=== PATIENT | male | born 1955 | race Hispanic/Latino ===

== ENCOUNTER 2016-10-06 16:37 | Emergency (ER) | payer MEDICAID ==
[2016-10-06 16:37] VITALS: BMI 24.0
[2016-10-06 16:51] VITALS: TEMP 97.3
--- NOTE | 2016-10-06 17:11 | ED PDOC ---
Arrival/HPI <Frank Acosta DO - Last Filed: 10/06/16 19:07> - General Historian: Patient EM Caveat: Intoxicated <Frandy Melo - Last Filed: 10/06/16 20:36> - General Chief Complaint: Chest Pain Time Seen by Provider: 10/06/16 16:43 - History of Present Illness Narrative History of Present Illness (Text): 10/06/16 17:07 This is a 61 year old male with a PMH significant for CAD w/stents x4, COPD, ETOH abuse, HTN, depression, peripheral neuropathy, cholelithiasis presenting to the ED for evaluation of Chest Pain of unknown duration. The patient is currently intoxicated and cannot provide an accurate history of the events prior to cominging to the ED. The patient reports having drank "a barrel" of "hard booze" and smoked marijuana before coming to the ED. In multiple versions of his narrative on his chest pain, he reports having taken nitro which provided minimal relief. The patient is unclear on the onset of his chest pain stating that it started yesterday, 7-8 hours ago, or 1-2 hours ago in multiple recounts of his pain. The patient reports that the pain is worse with deep inspiration, and laying flat. The pain also increases with palpation. PMH: CAD w/stents x4, COPD, ETOH abuse, HTN, depression, peripheral neuropathy, cholelithiasis Surg: R enartectomy, cholecystectomy, coronary bypass Allergies: sulfa medications: rash, shellfish anaphx Social: heavy smoker, EtOH abuse, illicit drug use Marijuana/heroin Family:DM, arthritis, father had thyroid CA PMD: Dr. Yamel Perry (Frandy Melo) Past Medical History <Frank Acosta DO - Last Filed: 10/06/16 19:07> - Provider Review Nursing Documentation Reviewed: Yes - Travel History Have you recently traveled outside [place] w/in the past 3 mons?: No - Infectious Disease Hx of Infectious Diseases: None - Tetanus Immunization Tetanus Immunization: Unknown - Reproductive Currently : No - Cardiac Hx Cardiac Disorders: Yes (mi) Hx Hypertension: Yes - Pulmonary Hx Chronic Obstructive Pulmonary Disease (COPD): Yes Hx Emphysema: Yes - Neurological Hx Neurological Disorder: Yes (syncope) Hx Transient Ischemic Attacks (TIA): Yes Other/Comment: peripheral neuropathy - HEENT Hx HEENT Disorder: Yes (using eye glasses,left eye blurry vision,sinusitis) Other/Comment: glasses, sinusitis - Renal Hx Renal Disorder: No - Endocrine/Metabolic Hx Endocrine Disorders: No - Hematological/Oncological Hx Blood Disorders: Yes Hx Anemia: Yes - Integumentary Hx Dermatological Disorder: No - Musculoskeletal/Rheumatological Hx Falls: No - Gastrointestinal Hx Gastrointestinal Disorders: Yes Hx Gall Bladder Disease: Yes (Gall stones removed) Hx Gastroesophageal Reflux: Yes Other/Comment: ABD PAIN - Genitourinary/Gynecological Hx Genitourinary Disorders: No - Psychiatric Hx Psychophysiologic Disorder: Yes (smoking ,drink alcohol) Hx Anxiety: Yes Hx Depression: Yes Hx Panic Disorder: Yes Hx Substance Use: No Other/Comment: LIVES @ [facility], - Surgical History Hx Cardiac Catheterization: Yes Hx Cholecystectomy: Yes (gallstones removed) Hx Coronary Stent: Yes ( 4 stents) Hx Open Heart Surgery: Yes Other/Comment: right endartarectomy - Anesthesia Hx Anesthesia: Yes Hx Anesthesia Reactions: No Hx Malignant Hyperthermia: No - Suicidal Assessment Feels Threatened In Home Enviroment: No <Frandy Melo - Last Filed: 10/06/16 20:36> - Patient History Narrative Patient History: PMHx: CAD w/stents x4, COPD, ETOH abuse, HTN, depression, peripheral neuropathy, cholelithiasis Psxhx: R enartectomy, cholecystectomy, coronary bypass Allergies: sulfa medications: rash, shellfish anaphx Social: light smoker, former alcoholic, past heroin and marujuana usage Family:DM, arthritis, father had thyroid CA PMD: Dr. Yamel Perry (Frandy Melo) Family/Social History - Physician Review Nursing Documentation Reviewed: Yes Family/Social History: Unknown Family HX Smoking Status: Heavy Smoker > 10 Cigarettes Daily Hx Alcohol Use: Yes (heavy) Frequency of alcohol use: Daily Hx Substance Use: Yes Substance used: HEROIN, MARIJUANA Route: Smoking/Inhalation Hx Substance Use Treatment: No <Frandy Melo - Last Filed: 10/06/16 20:36> Allergies/Home Meds <Frank Acosta DO - Last Filed: 10/06/16 19:07> <Frandy Melo - Last Filed: 10/06/16 20:36> Allergies/Adverse Reactions: Allergies shellfish derived Allergy (Verified 09/28/16 15:38) ANAPHYLAXIS Sulfa (Sulfonamide Antibiotics) Allergy (Verified 09/28/16 15:38) RASH Home Medications: Home Meds Medication Instructions Recorded Confirmed Nitroglycerin [Nitrostat SL Tab] 0.4 mg SL PRN PRN 02/14/15 08/24/16 Carvedilol [Coreg] 3.125 mg PO BID 11/16/15 08/25/16 Simvastatin 20 mg PO HS 11/16/15 08/25/16 Thiamine [Vitamin B1 Tab] 100 mg PO DAILY 11/16/15 08/25/16 Albuterol HFA [Ventolin HFA 90 90 mcg IH PRN PRN 12/13/15 08/24/16 mcg/actuation (8 g)] Enalapril Maleate [Vasotec] 2.5 mg PO DAILY 12/13/15 08/25/16 Ipratropium/Albuterol Sulfate 1 inhaler IH PRN PRN 12/13/15 08/24/16 [Iprat-Albut 0.5-3(2.5) mg/3 ml] Isosorbide Mononitrate [Imdur] 30 mg PO DAILY 12/13/15 08/25/16 Folic Acid 1 tab PO DAILY 08/24/16 08/25/16 Naproxen [Naprosyn Tab] 1 tab PO BID 08/24/16 08/24/16 Pantoprazole Sodium [Protonix] 1 tab PO DAILY 08/24/16 08/25/16 Review of Systems - Review of Systems Systems not reviewed;Unavailable: Uncooperative <Frandy Melo - Last Filed: 10/06/16 20:36> Physical Exam - Physical Exam Physical Exam Limitations: Intoxication, Uncooperative Vital Signs Reviewed: Yes Temperature: Afebrile Blood Pressure: Normal Pulse: Regular Respiratory Rate: Normal Appearance: Positive for: Ill-Appearing, Other (chronically ill) Mental Status: Positive for: other (intoxicated ) - Systems Exam Head: Present: Atraumatic, Normocephalic Pupils: Present: PERRL Extroacular Muscles: Present: EOMI Conjunctiva: Present: Normal Mouth: Present: Moist Mucous Membranes Neck: Present: Normal Range of Motion Respiratory/Chest: Present: Clear to Auscultation, Good Air Exchange. No: Respiratory Distress, Accessory Muscle Use Cardiovascular: Present: Regular Rate and Rhythm, Normal S1, S2. No: Murmurs Abdomen: Present: Normal Bowel Sounds, Other (multiple cespedes hemangiomas ). No : Tenderness, Distention, Peritoneal Signs Upper Extremity: Present: Normal Inspection. No: Cyanosis, Edema Lower Extremity: Present: Normal Inspection. No: Edema Neurological: Present: Motor Func Grossly Intact, Other (intoxicated) Psychiatric: Present: Alert <Frandy Melo - Last Filed: 10/06/16 20:36> Vital Signs Temp Pulse Pulse Resp BP BP Pulse Ox 10/06/16 19:07 60 16 122/75 96 10/06/16 16:50 97.3 F L 98 H 98 H 22 117/61 117/61 98 Medical Decision Making <Frank Acosta DO - Last Filed: 10/06/16 19:07> Re-evaluation Time: 19:15 Reassessment Condition: Re-examined, Improved - Lab Interpretations Interpretation: Abnormal lab values (Elevated serum alcohol. CBC/CMP at patient' s baseline. no elevation of troponin) - RAD Interpretation Operator Coating Furnace: ED Physician, Radiologist - EKG Interpretation Interpreted by ED Physician: Yes Type: 12 lead EKG <Frandy Melo - Last Filed: 10/06/16 20:36> ED Course and Treatment: 10/06/16 19:07 61 year old male complaining of chest pain. In agreement with resident note, which includes further HPI details. Patient was seen and evaluated with resident , came up with plan and treatment together. On physical exam patient was intoxicated but otherwise unremarkable. (Frank Acosta DO) 10/06/16 17:17 Impression: This is a 61 year old male with a PMH significant for CAD w/stents x4, COPD, ETOH abuse, HTN, depression, peripheral neuropathy, cholelithiasis presenting to the ED for evaluation of Chest Pain of unknown duration. The patient is intoxicated and uncooperative with history taking and examination. The patient has been seen numerous times for similar complaints. The patient had a negative stress test in 10/2015. The patient's EKG is unchanged from previous. Differential: Atypical Chest Pain Pleuritic Pain Musculoskeletal Chest Pain EtOH Intoxication Plan: EKG CBC, CMP, Troponin, Alcohol CXR NS 200ml/hr UA Folic Acid/Thiamine/Multi-vitamin Prior Visits: Numerous admission for EtOH withdrawal and Chest Pain - most recent admission 08/24/16- chest pain- Serial cardiac enyzmes were negative as well as EKG and ACS was ruled out Progress Note: Patient seen and examined at bedside. Patient intoxicated. Patient will have above lab work drawn and reviewed. Patient will be started on NS at 200ml/hr. Clinical appearance of non-ischemic chest pain in the setting of alcohol intoxication and substance abuse (marijuana). The patient has negative stress test 11/04 and negative workup for ACS during his last admission 08/24/16. Patient will be monitored for withdrawal and cardiac pathology will be evaluated. 10/06/16 19:17 Patient re-examined. Lab work negative for cardiac ischemia. Patient sleeping comfortably in bed prior to examination. Patient requesting to be DC home. IVF at 200ml/hr approximately 1/2 done. Patient not complaining of chest pain at this time. 10/06/16 20:33 Patient sleeping comfortably. Patient's labs reveal no evidence of cardiac ischemia. Patient will complete 1L NS IVF prior to DC. Patient was able to ambulate without incident. The patient was deemed medically safe for discharge. The patient is agreeable with the plan. (Frandy Melo) - Lab Interpretations Lab Results: 10/06/16 16:45 10/06/16 16:45 Lab Results 10/06/16 16:45: WBC 5.5, RBC 3.59, Hgb 11.6 L, Hct 34.8 L, MCV 96.9, MCH 32.3, MCHC 33.3, RDW 13.9, Plt Count 270, MPV 9.4, Gran % 75.0 H, Lymph % (Auto) 20.1 L, [place] % (Auto) 3.8, Eos % (Auto) 0.7 L, Baso % (Auto) 0.4, Gran # 4.10, Lymph # 1.1 L, [place] # 0.2, Eos # 0.0, Baso # 0.02, Sodium 137, Potassium 4.5, Chloride 100, Carbon Dioxide 26, Anion Gap 16, BUN 12, Creatinine 0.8, Est GFR ( Amer) > 60, Est GFR (Non-Af Amer) > 60, Random Glucose 96, Calcium 8.8, Phosphorus 2.9, Magnesium 2.2, Total Bilirubin 0.6, AST 43, ALT 13, Alkaline Phosphatase 78, Lactate Dehydrogenase 432, Total Creatine Kinase 232 H, CK-MB ( CK-2) 1.8, CK-MB (CK-2) % Cancelled, Troponin I < 0.01, Total Protein 7.3, Albumin 4.2, Globulin 3.1, Albumin/Globulin Ratio 1.4, Alcohol, Quantitative 229 H - RAD Interpretation Narrative RAD Interpretations (Text): 10/06/16 20:35 HISTORY: chest pain COMPARISON: Chest x-ray performed 09/06/16 TECHNIQUE: Chest, one view. FINDINGS: LUNGS: 3.2 x 1.9 cm ovoid density in the right upper lobe. Please note that chest x-ray has limited sensitivity for the detection of pulmonary masses. PLEURA: No significant pleural effusion identified. No definite pneumothorax . CARDIOVASCULAR: Median sternotomy wires with evidence of CABG. Heart size appears within normal limits. OSSEOUS STRUCTURES: Degenerative changes. VISUALIZED UPPER ABDOMEN: Unremarkable. OTHER FINDINGS: None. IMPRESSION: 3.2 x 1.9 cm ovoid density within the right upper lobe. Recommend further evaluation with CT chest if indicated. (Frandy Melo) Radiology Orders: 10/06/16 16:51 CHEST PORTABLE [RAD] Stat - EKG Interpretation EKG Interpretation (Text): 10/06/16 19:18 eraly repolarization consistent with patients previous EKGs. Sinus rhythm without ST or T wave changes. (Frandy Melo) - Medication Orders Current Medication Orders: Sodium Chloride (Sodium Chloride 0.9%) 1,000 mls @ 200 mls/hr IV .Q5H [facility] Last Admin: 10/06/16 17:15 Dose: 200 MLS/HR eMAR Start Stop Document 10/06/16 17:15 SF (Rec: 10/06/16 17:45 SF [id number]) Intravenous Solution Start Date 10/06/16 Start Time 17:15 End Date 10/06/16 End time 22:15 Total Infusion Time 300 Discontinued Medications Folic Acid (Folic Acid) 1 mg PO STAT STA Stop: 10/06/16 17:24 Last Admin: 10/06/16 18:23 Dose: 1 MG Multivitamins (Thera Tab) 1 tab PO STAT STA Stop: 10/06/16 17:24 Last Admin: 10/06/16 18:22 Dose: 1 TAB Thiamine HCl (Vitamin B1 Tab) 100 mg PO DAILY STA Stop: 10/06/16 17:24 Last Admin: 10/06/16 18:22 Dose: 100 MG - PA / [employer] / Resident Statement CLARIBEL has reviewed & agrees with the documentation as recorded. CLARIBEL has examined the patient and agrees with the treatment plan. - Scribe Statement The provider has reviewed the documentation as recorded by the Scribe <Frank Acosta DO - Last Filed: 10/06/16 19:07> <Frandy Melo - Last Filed: 10/06/16 20:36> - Scribe Statement Jhonny Aldana All medical record entries made by the Scribe were at my direction and personally dictated by me. I have reviewed the chart and agree that the record accurately reflects my personal performance of the history, physical exam, medical decision making, and the department course for this patient. I have also personally directed, reviewed, and agree with the discharge instructions and disposition. (Frank Acosta DO) Disposition/Present on Arrival <Frank Acosta DO - Last Filed: 10/06/16 19:07> - Present on Arrival Any Indicators Present on Arrival: No History of DVT/PE: No History of Uncontrolled Diabetes: No Urinary Catheter: No History of Decub. Ulcer: No History Surgical Site Infection Following: None - Disposition Have Diagnosis and Disposition been Completed?: Yes Disposition Time: 18:15 Patient Plan: Discharge <Frandy Melo - Last Filed: 10/06/16 20:36> - Disposition Diagnosis: Alcohol intoxication, Chest pain Disposition: HOME/ ROUTINE Patient Problems: Current Active Problems Problem Status Diagnosed Alcohol intoxication Acute Alcohol withdrawal syndrome Acute Chest pain Acute Colitis Acute DVT prophylaxis Acute Facial fracture due to fall Acute HTN (hypertension) Acute Near syncope Acute Condition: FAIR Discharge Instructions (ExitCare): Chest Pain (ED) Print Language: MICRONESIAN Additional Instructions: 1.) Avoid alcohol 2.) Avoid marijuana 3.) Avoid illicit drugs 4.) Take all medications in accordance with prescription 5.) Follow up with PMD following discharge 6.) If symptoms return, please return to the ED for evaluation
[2016-10-06] MEDS ORDERED: Sodium Chloride 0.9% 1,000 ML IV SCH (17:15)
[2016-10-06 17:17] LABS: ADD MANUAL DIFF? NO
[2016-10-06] MEDS ORDERED: Multivitamin Therapeutic Tab PO STA (17:23)
[2016-10-06 17:35] LABS: BASO # 0.02 K/mm3 (0.0-2.0); BASO % 0.4 % (0.0-3.0); EOS % 0.7 % (1.5-5.0); HEMATOCRIT 34.8 % (42.0-52.0); LYMPH # 1.1 (1.2-3.4); LYMPH % 20.1 % (22.0-35.0); MEAN CELL VOLUME 96.9 fL (80.0-105.0); MEAN CORPUSCULAR HEMOGLOBIN 32.3 pg (25.0-35.0); MEAN CORPUSCULAR HGB CONC 33.3 g/dl (31.0-37.0); MEAN PLATELET VOLUME 9.4 fl (7.0-11.0); MONO # 0.2 (0.1-0.6); MONO % 3.8 % (1.0-6.0); PLATELET COUNT 270 10^3/uL (120.0-450.0); RED CELL DISTRIBUTION WIDTH 13.9 % (11.5-14.5); WHITE BLOOD COUNT 5.5 10^3/ul (4.5-11.0)
[2016-10-06 17:41] LABS: ALB/GLOB RATIO 1.4 (1.1-1.8); ALKALINE PHOSPHATASE 78 U/L (38-133); ALT/SGPT 13 U/L (7-56); AST/SGOT 43 U/L (15-59); BILIRUBIN,TOTAL 0.6 mg/dL (0.2-1.3); BLOOD UREA NITROGEN 12 mg/dL (7-21); CALCIUM 8.8 mg/dL (8.4-10.5); CARBON DIOXIDE 26 mmol/L (21-33); CHLORIDE 100 mmol/L (98-107); GFR AFRICAN-AMERICAN > 60; GLUCOSE,RANDOM 96 mg/dL (70-110); MAGNESIUM 2.2 mg/dL (1.7-2.2); PHOSPHOROUS 2.9 mg/dL (2.5-4.5); POTASSIUM 4.5 mmol/L (3.6-5.0); SODIUM 137 mmol/L (132-148); TOTAL PROTEIN 7.3 g/dL (5.8-8.3)
--- NOTE | 2016-10-06 17:49 | RAD ---
HISTORY: chest pain COMPARISON: Chest x-ray performed 09/06/16 TECHNIQUE: Chest, one view. FINDINGS: LUNGS: 3.2 x 1.9 cm ovoid density in the right upper lobe. Please note that chest x-ray has limited sensitivity for the detection of pulmonary masses. PLEURA: No significant pleural effusion identified. No definite pneumothorax . CARDIOVASCULAR: Median sternotomy wires with evidence of CABG. Heart size appears within normal limits. OSSEOUS STRUCTURES: Degenerative changes. VISUALIZED UPPER ABDOMEN: Unremarkable. OTHER FINDINGS: None. IMPRESSION: 3.2 x 1.9 cm ovoid density within the right upper lobe. Recommend further evaluation with CT chest if indicated.
[2016-10-06 17:52] LABS: TROPONIN I < 0.01 ng/mL
[2016-10-06 19:07] VITALS: RESP 16
[2016-10-06 19:42] LABS: URINE BILIRUBIN NEGATIVE (NEGATIVE); URINE BLOOD NEGATIVE (NEGATIVE); URINE GLUCOSE (UA) NEGATIVE (NEGATIVE); URINE KETONE NEGATIVE (NEGATIVE); URINE LEUKOCYTE ESTERASE NEGATIVE Leu/uL (NEGATIVE); URINE PROTEIN NEGATIVE mg/dL (<30 mg/dL); URINE UROBILINOGEN 0.2 E.U./dL (<1 E.U./dL)
[2016-10-06 19:44] LABS: URINE APPEARANCE CLEAR (CLEAR); URINE COLOR YELLOW (YELLOW)
[2016-10-06 20:52] VITALS: BP 124/67; PULSE 67; O2SAT 97
--- NOTE | 2016-10-07 09:52 | CARD ---
APPROVED REPORT EKG Measurement Heart [id number] <Conclusion> Normal sinus rhythm Early repolarization changes with ST elevations 2,3,F, V 4 - 6
== END 2016-10-06 20:48 | disposition home or self-care (01) ==
LOC: ED 16:37
DX: R07.9 Chest pain, unspecified (principal); F10.129 Alcohol abuse with intoxication, unspecified; Y90.7 Blood alcohol level of 200-239 mg/100 ml
CPT/HCPCS: 71010; 80053; 80320; 81003; 82550; 82553; 83615; 83735; 84100; 84484; 85025; 93005; 96360; 96361; 99285; J7040

== ENCOUNTER 2016-10-10 02:37 | Emergency (ER) | payer MEDICAID ==
[2016-10-10 02:38] VITALS: BMI 24.0
--- NOTE | 2016-10-10 03:12 | ED PDOC ---
Arrival/HPI - General Chief Complaint: Psychiatric Evaluation Time Seen by Provider: 10/10/16 02:45 Historian: Patient - History of Present Illness Narrative History of Present Illness (Text): 10/10/16 03:09 [place] Alexandra is a 61 year old male, whose past medical history includes CAD with stents, COPD, alcohol abuse, hypertension, depression, who presents to the Emergency department complaining of depression. Patient states he has been feeling very depressed and binge-drinking alcohol following the recent of his cousin. Patient denies any suicidal ideation, homicidal ideation, fever, chills, chest pain, shortness of breath, nausea, vomiting, diarrhea, urinary symptoms, back pain, neck pain, headache, dizziness, or any other complaints. Time/Duration: Other (tonight) Symptom Onset: Gradual Symptom Course: Unchanged Activities at Onset: Rest, Light Context: Home Past Medical History - Provider Review Nursing Documentation Reviewed: Yes - Past History Past History: No Previous - Infectious Disease Hx of Infectious Diseases: None - Tetanus Immunization Tetanus Immunization: Unknown - Reproductive Currently : No - Cardiac Hx Cardiac Disorders: Yes () Hx AR: Yes (2006) Hx Hypertension: Yes - Pulmonary Hx Chronic Obstructive Pulmonary Disease (COPD): Yes Hx Emphysema: Yes - Neurological Hx Neurological Disorder: Yes (syncope) Hx Transient Ischemic Attacks (TIA): Yes Other/Comment: peripheral neuropathy - HEENT Hx HEENT Disorder: Yes (using eye glasses,left eye blurry vision,sinusitis) Other/Comment: glasses, sinusitis - Renal Hx Renal Disorder: No - Endocrine/Metabolic Hx Endocrine Disorders: No - Hematological/Oncological Hx Blood Disorders: Yes Hx Anemia: Yes - Integumentary Hx Dermatological Disorder: No - Musculoskeletal/Rheumatological Hx Falls: No - Gastrointestinal Hx Gastrointestinal Disorders: Yes Hx Gall Bladder Disease: Yes (Gall stones removed) Hx Gastroesophageal Reflux: Yes Other/Comment: ABD PAIN - Genitourinary/Gynecological Hx Genitourinary Disorders: No - Psychiatric Hx Psychophysiologic Disorder: Yes (smoking ,drink alcohol) Hx Anxiety: Yes Hx Depression: Yes Hx Panic Disorder: Yes Hx Post Traumatic Stress Disorder: Yes Hx Substance Use: Yes (mj today) Other/Comment: LIVES @ [facility], - Surgical History Hx Cardiac Catheterization: Yes Hx Cholecystectomy: Yes (gallstones removed) Hx Coronary Stent: Yes ( 4 stents/2005 5 total) Hx Open Heart Surgery: Yes Other/Comment: right endartarectomy - Anesthesia Hx Anesthesia: Yes Hx Anesthesia Reactions: No Hx Malignant Hyperthermia: No - Suicidal Assessment Feels Threatened In Home Enviroment: No Family/Social History - Physician Review Nursing Documentation Reviewed: Yes Family/Social History: No Known Family HX Smoking Status: Heavy Smoker > 10 Cigarettes Daily Hx Alcohol Use: Yes (heavy) Frequency of alcohol use: Daily Hx Substance Use: Yes (mj today) Substance used: HEROIN, MARIJUANA Hx Substance Use Treatment: No Allergies/Home Meds Allergies/Adverse Reactions: Allergies shellfish derived Allergy (Verified 10/10/16 02:51) ANAPHYLAXIS Sulfa (Sulfonamide Antibiotics) Allergy (Verified 10/10/16 02:51) RASH Home Medications: Home Meds Medication Instructions Recorded Confirmed Nitroglycerin [Nitrostat SL Tab] 0.4 mg SL PRN PRN 02/14/15 08/24/16 Carvedilol [Coreg] 3.125 mg PO BID 11/16/15 08/25/16 Simvastatin 20 mg PO HS 11/16/15 08/25/16 Thiamine [Vitamin B1 Tab] 100 mg PO DAILY 11/16/15 08/25/16 Albuterol HFA [Ventolin HFA 90 90 mcg IH PRN PRN 12/13/15 08/24/16 mcg/actuation (8 g)] Enalapril Maleate [Vasotec] 2.5 mg PO DAILY 12/13/15 08/25/16 Ipratropium/Albuterol Sulfate 1 inhaler IH PRN PRN 12/13/15 08/24/16 [Iprat-Albut 0.5-3(2.5) mg/3 ml] Isosorbide Mononitrate [Imdur] 30 mg PO DAILY 12/13/15 08/25/16 Folic Acid 1 tab PO DAILY 08/24/16 08/25/16 Naproxen [Naprosyn Tab] 1 tab PO BID 08/24/16 08/24/16 Pantoprazole Sodium [Protonix] 1 tab PO DAILY 08/24/16 08/25/16 Review of Systems - Physician Review All systems were reviewed & negative as marked: Yes - Review of Systems Constitutional: Normal. absent: Fevers Eyes: Normal ENT: Normal Respiratory: Normal. absent: SOB, Cough Cardiovascular: Normal. absent: Chest Pain Gastrointestinal: Normal. absent: Abdominal Pain, Diarrhea, Nausea, Vomiting Genitourinary Male: Normal. absent: Dysuria, Frequency, Hematuria, Urinary Output Changes Musculoskeletal: Normal. absent: Back Pain, Neck Pain Skin: Normal. absent: Rash Neurological: Normal. absent: Headache, Dizziness Endocrine: Normal Hemo/Lymphatic: Normal Psychiatric: Depression, Other (+alcohol abuse) Physical Exam Vital Signs Reviewed: Yes Vital Signs Temp Pulse Resp BP Pulse Ox 10/10/16 03:15 70 18 94/56 L 95 10/10/16 03:01 97.4 F L Temperature: Afebrile Blood Pressure: Normal Pulse: Regular Respiratory Rate: Normal Appearance: Positive for: Well-Appearing, Non-Toxic, Comfortable Pain Distress: None Mental Status: Positive for: Alert and Oriented X 3 - Systems Exam Head: Present: Atraumatic, Normocephalic Pupils: Present: PERRL Extroacular Muscles: Present: EOMI Conjunctiva: Present: Normal Mouth: Present: Moist Mucous Membranes Neck: Present: Normal Range of Motion Respiratory/Chest: Present: Clear to Auscultation, Good Air Exchange. No: Respiratory Distress, Accessory Muscle Use Cardiovascular: Present: Regular Rate and Rhythm, Normal S1, S2. No: Murmurs Abdomen: Present: Normal Bowel Sounds. No: Tenderness, Distention, Peritoneal Signs Back: Present: Normal Inspection Upper Extremity: Present: Normal Inspection. No: Cyanosis, Edema Lower Extremity: Present: Normal Inspection. No: Edema Neurological: Present: GCS=15, CN II-XII Intact, Speech Normal Skin: Present: Warm, Dry, Normal Color. No: Rashes Psychiatric: Present: Alert, Oriented x 3, Normal Insight, Normal Concentration , Intoxicated Medical Decision Making ED Course and Treatment: 10/10/16 03:09 Impression: 61 year old male complaining of depression after of relative. Pt admits to binge-drinking alcohol tonight. Plan: -- EKG -- Chest X-ray -- Labs, alcohol level -- Urinalysis, urine drug screen -- Reassess and disposition Prior Visits: Notes and results from previous visits were reviewed. Progress Notes: Reviewed EKG, NSR at 88 bpm. No acute changes. 10/10/16 07:[address] Montiel, pending PES evaluation, re-assessment, and final disposition. - Lab Interpretations Lab Results: 10/10/16 04:10 10/10/16 04:10 Lab Results 10/10/16 04:10: WBC 5.7, RBC 3.50, Hgb 11.7 L, Hct 34.0 L, MCV 97.1, MCH 33.4, MCHC 34.4, RDW 14.5, Plt Count 268, MPV 9.0, Sodium 146, Potassium 3.8, Chloride 105, Carbon Dioxide 25, Anion Gap 20, BUN 10, Creatinine 0.8, Est GFR ( Amer) > 60, Est GFR (Non-Af Amer) > 60, Random Glucose 69 L, Calcium 8.9 , Total Bilirubin 0.5, AST 41, ALT 19, Alkaline Phosphatase 67, Total Protein 6.7, Albumin 3.9, Globulin 2.8, Albumin/Globulin Ratio 1.4, Alcohol, Quantitative 179 H I have reviewed the lab results: Yes - RAD Interpretation Radiology Orders: 10/10/16 03:41 CHEST PORTABLE [RAD] Stat - Medication Orders Current Medication Orders: Discontinued Medications Albuterol/Ipratropium (Duoneb 3 Mg/0.5 Mg (3 Ml) Ud) 3 ml IH ONCE STA Stop: 10/10/16 05:18 Last Admin: 10/10/16 05:44 Dose: 3 ML - Scribe Statement The provider has reviewed the documentation as recorded by the Arina Adam Provider Attestation: All medical record entries made by the Sarahibinga were at my direction and personally dictated by me. I have reviewed the chart and agree that the record accurately reflects my personal performance of the history, physical exam, medical decision making, and the department course for this patient. I have also personally directed, reviewed, and agree with the discharge instructions and disposition. Disposition/Present on Arrival - Present on Arrival Any Indicators Present on Arrival: No History of DVT/PE: No History of Uncontrolled Diabetes: No Urinary Catheter: No History of Decub. Ulcer: No History Surgical Site Infection Following: None - Disposition Have Diagnosis and Disposition been Completed?: No Diagnosis: Alcohol abuse, Depression Disposition Time: 07:00 Patient Problems: Current Active Problems Problem Status Diagnosed Alcohol withdrawal syndrome Acute Colitis Acute DVT prophylaxis Acute Facial fracture due to fall Acute HTN (hypertension) Acute Near syncope Acute Condition: STABLE
[2016-10-10 03:15] VITALS: RESP 18
[2016-10-10 04:39] LABS: MEAN CELL VOLUME 97.1 fL (80.0-105.0); MEAN CORPUSCULAR HEMOGLOBIN 33.4 pg (25.0-35.0); MEAN CORPUSCULAR HGB CONC 34.4 g/dl (31.0-37.0); RED CELL DISTRIBUTION WIDTH 14.5 % (11.5-14.5); WHITE BLOOD COUNT 5.7 10^3/ul (4.5-11.0)
[2016-10-10 04:46] LABS: ALB/GLOB RATIO 1.4 (1.1-1.8); ALKALINE PHOSPHATASE 67 U/L (38-133); ALT/SGPT 19 U/L (7-56); AST/SGOT 41 U/L (15-59); BILIRUBIN,TOTAL 0.5 mg/dL (0.2-1.3); BLOOD UREA NITROGEN 10 mg/dL (7-21); CALCIUM 8.9 mg/dL (8.4-10.5); CARBON DIOXIDE 25 mmol/L (21-33); CHLORIDE 105 mmol/L (95-110); GFR AFRICAN-AMERICAN > 60; GLUCOSE,RANDOM 69 mg/dL (70-110); POTASSIUM 3.8 mmol/L (3.6-5.0); SODIUM 146 mmol/L (132-148); TOTAL PROTEIN 6.7 g/dL (5.8-8.3)
[2016-10-10] MEDS: Albuterol-Ipratrop 3 mg / 0.5 (3 ml) UD IH STA ×2 (05:29→05:44)
--- NOTE | 2016-10-10 07:42 | RAD ---
HISTORY: medical clearance COMPARISON: Comparison chest dated 09/20/2016 FINDINGS: LUNGS: No focal consolidation. . PLEURA: No significant pleural effusion identified, no pneumothorax apparent. CARDIOVASCULAR: Sternotomy wires and CABG clips. Heart size within range of normal. OSSEOUS STRUCTURES: Re- demonstrated is overgrowth of the 1st rib at costo -sternal junction VISUALIZED UPPER ABDOMEN: Normal. OTHER FINDINGS: None. IMPRESSION: No acute cardiopulmonary disease.
[2016-10-10 07:46] VITALS: BP 112/69; PULSE 69; TEMP 97.9; O2SAT 98
--- NOTE | 2016-10-10 08:10 | ED PDOC ---
Physical Exam Vital Signs Reviewed: Yes Vital Signs Temp Pulse Resp BP Pulse Ox 10/10/16 07:45 97.9 F 69 18 112/69 98 10/10/16 03:15 70 18 94/56 L 95 10/10/16 03:01 97.4 F L Temperature: Afebrile Blood Pressure: Normal Pulse: Regular Respiratory Rate: Normal Appearance: Positive for: Well-Appearing Pain Distress: None Mental Status: Positive for: Alert and Oriented X 3 Medical Decision Making ED Course and Treatment: 10/10/16 08:09 A 61 year old male who presents to the emergency department for evaluation of depression and binge-drinking. Patient signed out to my by for pending PES evaluation. 10/10/16 08:42 Evaluaated by PES. Recommend discharge, f/u outpatient. - Lab Interpretations Lab Results: 10/10/16 04:10 10/10/16 04:10 Lab Results 10/10/16 05:20: Urine Opiates Screen Negative, Urine Methadone Screen Negative, Ur Barbiturates Screen Negative, Ur Phencyclidine Scrn Negative, Ur Amphetamines Screen Negative, U Benzodiazepines Scrn Negative, U Oth Cocaine Metabols Negative, U Cannabinoids Screen Negative 10/10/16 04:10: WBC 5.7, RBC 3.50, Hgb 11.7 L, Hct 34.0 L, MCV 97.1, MCH 33.4, MCHC 34.4, RDW 14.5, Plt Count 268, MPV 9.0, Sodium 146, Potassium 3.8, Chloride 105, Carbon Dioxide 25, Anion Gap 20, BUN 10, Creatinine 0.8, Est GFR ( Amer) > 60, Est GFR (Non-Af Amer) > 60, Random Glucose 69 L, Calcium 8.9 , Total Bilirubin 0.5, AST 41, ALT 19, Alkaline Phosphatase 67, Total Protein 6.7, Albumin 3.9, Globulin 2.8, Albumin/Globulin Ratio 1.4, Alcohol, Quantitative 179 H - RAD Interpretation Radiology Orders: 10/10/16 03:41 CHEST PORTABLE [RAD] Stat - Medication Orders Current Medication Orders: Discontinued Medications Albuterol/Ipratropium (Duoneb 3 Mg/0.5 Mg (3 Ml) Ud) 3 ml IH ONCE STA Stop: 10/10/16 05:18 Last Admin: 10/10/16 05:44 Dose: 3 ML - Scribe Statement The provider has reviewed the documentation as recorded by the Arina Floyd Provider Attestation: All medical record entries made by the Arina were at my direction and personally dictated by me. I have reviewed the chart and agree that the record accurately reflects my personal performance of the history, physical exam, medical decision making, and the department course for this patient. I have also personally directed, reviewed, and agree with the discharge instructions and disposition. Disposition/Present on Arrival - Present on Arrival Any Indicators Present on Arrival: No History of DVT/PE: No History of Uncontrolled Diabetes: No Urinary Catheter: No History of Decub. Ulcer: No History Surgical Site Infection Following: None - Disposition Have Diagnosis and Disposition been Completed?: Yes Diagnosis: Alcohol abuse, Depression, Alcohol intoxication Disposition: HOME/ ROUTINE Disposition Time: 08:42 Patient Plan: Discharge Patient Problems: Current Active Problems Problem Status Diagnosed Alcohol abuse Acute Alcohol withdrawal syndrome Acute Colitis Acute DVT prophylaxis Acute Depression Acute Facial fracture due to fall Acute HTN (hypertension) Acute Near syncope Acute Condition: STABLE Discharge Instructions (ExitCare): Alcohol Intoxication (DC), Depression (ED)
--- NOTE | 2016-10-10 20:01 | CARD ---
APPROVED REPORT EKG Measurement Heart [id number] <Conclusion> Normal sinus rhythm Early repolarization Normal ECG
== END 2016-10-10 09:13 | disposition home or self-care (01) ==
LOC: ED 02:37
DX: F10.129 Alcohol abuse with intoxication, unspecified (principal); Y90.6 Blood alcohol level of 120-199 mg/100 ml; F32.9 Major depressive disorder, single episode, unspecified

== ENCOUNTER 2016-10-11 19:52 | Observation (INO) | payer MEDICAID ==
[2016-10-11 19:53] VITALS: BMI 24.0
--- NOTE | 2016-10-11 20:15 | ED PDOC ---
Arrival/HPI - General Chief Complaint: Alcohol Ingestion Time Seen by Provider: 10/11/16 20:06 - History of Present Illness Narrative History of Present Illness (Text): 10/11/16 20:13 Patient presents with slurring of speech and alcohol on breath. Admits to drinking throughout the day. Pt denies suicidal or homicidal ideations. Denies any trauma or injury. Past Medical History - Provider Review Nursing Documentation Reviewed: Yes - Past History Past History: No Previous - Infectious Disease Hx of Infectious Diseases: None - Tetanus Immunization Tetanus Immunization: Unknown - Reproductive Currently : No - Cardiac Hx Cardiac Disorders: Yes (mi) Hx Hypertension: Yes - Pulmonary Hx Tuberculosis: No - Neurological HX Cerebrovascular Accident: No Hx Seizures: No - HEENT Hx HEENT Disorder: Yes (using eye glasses,left eye blurry vision,sinusitis) Other/Comment: glasses, sinusitis - Renal Hx Renal Disorder: No - Endocrine/Metabolic Hx Endocrine Disorders: No - Hematological/Oncological Hx Cancer: No - Integumentary Hx Dermatological Disorder: No - Musculoskeletal/Rheumatological Hx Falls: No - Gastrointestinal Hx Gastrointestinal Disorders: Yes Hx Gall Bladder Disease: Yes (Gall stones removed) Hx Gastroesophageal Reflux: Yes Other/Comment: ABD PAIN - Genitourinary/Gynecological Hx Sexually Transmitted Diseases: No - Psychiatric Hx Psychophysiologic Disorder: Yes (smoking ,drink alcohol) Hx Anxiety: Yes Hx Depression: Yes Hx Panic Disorder: Yes Hx Post Traumatic Stress Disorder: Yes Hx Substance Use: Yes (mj today) Other/Comment: LIVES @ [facility], - Surgical History Hx Cardiac Catheterization: Yes Hx Cholecystectomy: Yes (gallstones removed) Hx Coronary Stent: Yes ( 4 stents/2005 5 total) Hx Open Heart Surgery: Yes Other/Comment: right endartarectomy - Anesthesia Hx Anesthesia: Yes Hx Anesthesia Reactions: No Hx Malignant Hyperthermia: No - Suicidal Assessment Feels Threatened In Home Enviroment: No Family/Social History - Physician Review Nursing Documentation Reviewed: Yes Family/Social History: Unknown Family HX Smoking Status: Heavy Smoker > 10 Cigarettes Daily Hx Alcohol Use: Yes (heavy) Hx Substance Use: Yes (mj today) Substance used: HEROIN, MARIJUANA Hx Substance Use Treatment: No Allergies/Home Meds Allergies/Adverse Reactions: Allergies shellfish derived Allergy (Verified 10/11/16 19:58) ANAPHYLAXIS Sulfa (Sulfonamide Antibiotics) Allergy (Verified 10/11/16 19:58) RASH Home Medications: Home Meds Medication Instructions Recorded Confirmed Nitroglycerin [Nitrostat SL Tab] 0.4 mg SL PRN PRN 02/14/15 10/11/16 Carvedilol [Coreg] 3.125 mg PO BID 11/16/15 10/11/16 Simvastatin 20 mg PO HS 11/16/15 10/11/16 Thiamine [Vitamin B1 Tab] 100 mg PO DAILY 11/16/15 10/11/16 Enalapril Maleate [Vasotec] 2.5 mg PO DAILY 12/13/15 10/11/16 Ipratropium/Albuterol Sulfate 1 inhaler IH PRN PRN 12/13/15 10/11/16 [Iprat-Albut 0.5-3(2.5) mg/3 ml] Isosorbide Mononitrate [Imdur] 30 mg PO DAILY 12/13/15 10/11/16 Folic Acid 1 tab PO DAILY 08/24/16 10/11/16 Naproxen [Naprosyn Tab] 1 tab PO BID 08/24/16 10/11/16 Pantoprazole Sodium [Protonix] 1 tab PO DAILY 08/24/16 10/11/16 Review of Systems - Review of Systems Systems not reviewed;Unavailable: Intoxicated Physical Exam - Physical Exam Narrative Physical Exam (Text): 10/11/16 20:14 pt in no distress, no airway compromise, breathing without difficulty, good insp /exp effort. No signs of head/torso/extremity trauma. Following commands without difficulty. Head: Present: Atraumatic, Normocephalic. No: Tenderness, Contusion, Swelling, Ecchymosis, Abrasion, Laceration Pupils: Present: PERRL Extroacular Muscles: Present: EOMI Conjunctiva: Present: Normal Mouth: Present: Moist Mucous Membranes Neck: Present: Normal Range of Motion. No: MIDLINE TENDERNESS, Paraspinal Tenderness Respiratory/Chest: Present: Clear to Auscultation, Good Air Exchange. No: Respiratory Distress, Accessory Muscle Use Cardiovascular: Present: Regular Rate and Rhythm, Normal S1, S2. No: Murmurs Abdomen: Present: Normal Bowel Sounds. No: Tenderness, Distention, Peritoneal Signs, Rebound, Guarding Back: Present: Normal Inspection. No: Midline Tenderness, Paraspinal Tenderness Upper Extremity: Present: Normal Inspection. No: Cyanosis, Edema Lower Extremity: Present: Normal Inspection. No: Edema Neurological: Present: GCS=15, CN II-XII Intact Skin: Present: Warm, Dry, Normal Color. No: Rashes Lymphatic: Present: OX3, NI, NC Psychiatric: Present: Alert. No: Agitated Vital Signs Reviewed: Yes Vital Signs Temp Pulse Resp BP Pulse Ox 10/12/16 05:53 97.8 F 75 18 117/67 92 L 10/12/16 04:46 97.6 F 70 18 117/68 95 10/12/16 02:02 98 F 65 19 121/72 98 10/12/16 00:38 119/71 10/12/16 00:29 97.6 F 65 18 93/58 L 97 10/11/16 22:21 97 F L 63 19 122/52 L 98 10/11/16 21:46 97.4 F L 65 18 86/55 L 95 10/11/16 20:00 97.5 F L 66 17 109/52 L 98 Temperature: Afebrile Blood Pressure: Normal Pulse: Regular Respiratory Rate: Normal Appearance: Positive for: Well-Appearing Pain Distress: None Mental Status: No: Agitated, Lethargic Medical Decision Making - Medication Orders Current Medication Orders: Discontinued Medications Diphenhydramine HCl (Benadryl) Confirm Administered Dose 50 mg .ROUTE .STK-MED ONE Stop: 10/11/16 20:26 Last Admin: 10/11/16 20:42 Dose: Diphenhydramine HCl (Benadryl) 50 mg IM STAT STA Stop: 10/11/16 20:25 Last Admin: 10/11/16 20:40 Dose: 50 MG IM Administration Charges Document 10/11/16 20:40 SF (Rec: 10/11/16 20:40 [id number] Injection Site MAR Injection Site Left Deltoid Charges for Administration # of IM Administrations 1 Haloperidol Lactate (Haldol) Confirm Administered Dose 5 mg .ROUTE .STK-MED ONE Stop: 10/11/16 20:24 Last Admin: 10/11/16 20:41 Dose: Haloperidol Lactate (Haldol) 5 mg IM STAT STA Stop: 10/11/16 20:25 Last Admin: 10/11/16 20:36 Dose: 5 MG Behavioural Document 10/11/16 20:36 SF (Rec: 10/11/16 20:40 [id number] Maintenance Maintenance Dose No Nonmedicinal Nonmedicinal Interventions Redirect Therapeutic Communication Behavior Behavior for Medication: Continuous pacing/restlessness Behavior Comment agitated IM Administration Charges Document 10/11/16 20:36 SF (Rec: 10/11/16 20:40 [id number] Injection Site MAR Injection Site Left Deltoid Charges for Administration # of IM Administrations 1 Lorazepam (Ativan) Confirm Administered Dose 2 mg .ROUTE .STK-MED ONE Stop: 10/11/16 20:25 Last Admin: 10/11/16 20:41 Dose: Lorazepam (Ativan) 2 mg IM ONCE ONE Stop: 10/11/16 20:25 Last Admin: 10/11/16 20:40 Dose: 2 MG IM Administration Charges Document 10/11/16 20:40 SF (Rec: 10/11/16 20:41 [id number] Charges for Administration # of IM Administrations 1 ED OBSERVATION Discharge: Yes Date of observation admission: 10/11/16 Time of observation admission: 20:13 - Observation admission statement Patient is being placed in observation because:: alcohol intoxication - Goals of Observation Goals of observation are:: pending sobriety - Progress Note Progress Note: 10/11/16 20:22 patient is combative, attempted to verbally deescalate situation and offered pt PO sedatives pt refused still combative danger to himself and staff meds ordered 10/11/16 22:22 Patient is resting comfortably with stable vitals. No new complaints 10/12/16 00:22 Patient is currently sleeping. No new complaints 10/12/16 02:22 Patient is sleeping with stable vital signs. Protecting airway. 10/12/16 04:22 Patient resting without any distress. Stable vital signs. 10/12/16 06:05 Pt has been closely monitored throughout the stay in the ED. Currently pt is ANOx3 to person, place, and time. Has good insight and judgment. Denies suicidal or homicidal ideations. Pt has steady gait, ambulates without difficulty, not slurring speech. Pt able to tolerate PO without any difficulty. Patient denies any complaints at this time. Patient is not tremulous, not tachycardic, no signs or symptoms of alcohol withdrawal. Pt states he understands to return to the ER right away for new or worsening symptoms or for inability to f/u with PMD or specialist as instructed. Patient states that he fully agrees with and understands discharge instructions. States that he agrees with the plan and disposition. Verbalized and repeated discharge instructions and plan. I have given the patient opportunity to ask any additional questions. Disposition/Present on Arrival - Present on Arrival Any Indicators Present on Arrival: No History of DVT/PE: No History of Uncontrolled Diabetes: No Urinary Catheter: No History of Decub. Ulcer: No History Surgical Site Infection Following: None - Disposition Have Diagnosis and Disposition been Completed?: Yes Diagnosis: Alcohol intoxication Disposition: HOME/ ROUTINE Disposition Time: 20:12 Patient Plan: Discharge Patient Problems: Current Active Problems Problem Status Diagnosed Alcohol intoxication Acute Alcohol withdrawal syndrome Acute Colitis Acute DVT prophylaxis Acute Facial fracture due to fall Acute HTN (hypertension) Acute Near syncope Acute Condition: GOOD
[2016-10-11] MEDS ORDERED: DiphenhydrAMINE 50 mg/ml Inj IM STA (20:24)
[2016-10-11] MEDS ORDERED: DiphenhydrAMINE 50 mg/ml Inj ONE (20:25)
[2016-10-12 04:48] VITALS: RESP 18
[2016-10-12 05:54] VITALS: TEMP 97.8
[2016-10-12 06:11] VITALS: BP 121/67; PULSE 78; O2SAT 96
== END 2016-10-12 06:07 | disposition home or self-care (01) ==
LOC: ED 19:52 → EROBSV 20:10
PROVIDERS: ADMIT Emergency Medicine; ATTEND Emergency Medicine
DX: F10.129 Alcohol abuse with intoxication, unspecified (principal); Y90.9 Presence of alcohol in blood, level not specified
CPT/HCPCS: 82948; 96372; 99285; G0378; J1200; J1630; J2060

== ENCOUNTER 2016-10-17 05:03 | Emergency (ER) | payer MEDICAID ==
[2016-10-17 05:17] VITALS: BP 121/76; PULSE 86; RESP 20; TEMP 98.6; O2SAT 96; BMI 25.5
[2016-10-17] MEDS ORDERED: Albuterol-Ipratrop 3 mg / 0.5 (3 ml) UD IH STA (05:21)
[2016-10-17] MEDS ORDERED: Albuterol-Ipratrop 3 mg / 0.5 (3 ml) UD ONE (05:21)
[2016-10-17 05:31] LABS: ADD MANUAL DIFF? NO
[2016-10-17 05:40] LABS: BASO # 0.03 K/mm3 (0.0-2.0); BASO % 0.3 % (0.0-3.0); EOS # 0.1 (0.0-0.7); EOS % 1.5 % (1.5-5.0); GRAN # 3.79 (1.4-6.5); GRAN % 42.3 % (50.0-68.0); HEMATOCRIT 37.6 % (42.0-52.0); LYMPH # 4.2 (1.2-3.4); LYMPH % 47.2 % (22.0-35.0); MEAN CELL VOLUME 99.7 fL (80.0-105.0); MEAN CORPUSCULAR HEMOGLOBIN 33.2 pg (25.0-35.0); MEAN CORPUSCULAR HGB CONC 33.2 g/dl (31.0-37.0); MEAN PLATELET VOLUME 9.1 fl (7.0-11.0); MONO # 0.8 (0.1-0.6); MONO % 8.7 % (1.0-6.0); PLATELET COUNT 257 10^3/uL (120.0-450.0); RED CELL DISTRIBUTION WIDTH 15.3 % (11.5-14.5)
--- NOTE | 2016-10-17 05:41 | ED PDOC ---
Arrival/HPI - General Chief Complaint: Chest Pain Time Seen by Provider: 10/17/16 05:20 Historian: Patient - History of Present Illness Narrative History of Present Illness (Text): 10/17/16 05:37 [place] Alexandra is a 61 year old male, with a history of CAD s/p stents, GA, GERD , anxiety, depression and alcohol/substance abuse, presents to the emergency department complaining of chest pain which began earlier yesterday night. Describes quality as a squeezing sensation to the chest which is associated with mild shortness of breath. Admits to drink alcohol last night. Denies any fever, chills, headache, dizziness, abdominal pain, nausea, vomiting, diarrhea, urinary symptoms or any other complaints at this time. Time/Duration: Other (tonight ) Symptom Onset: Gradual Symptom Course: Unchanged Severity Level: Mild Activities at Onset: Light Context: Home Past Medical History - Provider Review Nursing Documentation Reviewed: Yes - Past History Past History: No Previous - Infectious Disease Hx of Infectious Diseases: None - Tetanus Immunization Tetanus Immunization: Unknown - Reproductive Currently : No - Cardiac Hx Cardiac Disorders: Yes (mi) Hx Hypertension: Yes - Pulmonary Hx Tuberculosis: No - Neurological HX Cerebrovascular Accident: No Hx Seizures: No - HEENT Hx HEENT Disorder: Yes (using eye glasses,left eye blurry vision,sinusitis) Other/Comment: glasses, sinusitis - Renal Hx Renal Disorder: No - Endocrine/Metabolic Hx Endocrine Disorders: No - Hematological/Oncological Hx Cancer: No - Integumentary Hx Dermatological Disorder: No - Musculoskeletal/Rheumatological Hx Falls: No - Gastrointestinal Hx Gastrointestinal Disorders: Yes Hx Gall Bladder Disease: Yes (Gall stones removed) Hx Gastroesophageal Reflux: Yes Other/Comment: ABD PAIN - Genitourinary/Gynecological Hx Sexually Transmitted Diseases: No - Psychiatric Hx Psychophysiologic Disorder: Yes (smoking ,drink alcohol) Hx Anxiety: Yes Hx Depression: Yes Hx Panic Disorder: Yes Hx Post Traumatic Stress Disorder: Yes Hx Substance Use: Yes (mj today) Other/Comment: LIVES @ [facility], - Surgical History Hx Cardiac Catheterization: Yes Hx Cholecystectomy: Yes (gallstones removed) Hx Coronary Stent: Yes ( 4 stents/2005 5 total) Hx Open Heart Surgery: Yes Other/Comment: right endartarectomy - Anesthesia Hx Anesthesia: Yes Hx Anesthesia Reactions: No Hx Malignant Hyperthermia: No - Suicidal Assessment Feels Threatened In Home Enviroment: No Family/Social History - Physician Review Nursing Documentation Reviewed: Yes Family/Social History: No Known Family HX Smoking Status: Heavy Smoker > 10 Cigarettes Daily Hx Alcohol Use: Yes (heavy) Frequency of alcohol use: Daily Hx Substance Use: Yes (mj today) Substance used: HEROIN, MARIJUANA Hx Substance Use Treatment: No Allergies/Home Meds Allergies/Adverse Reactions: Allergies shellfish derived Allergy (Verified 10/17/16 05:21) ANAPHYLAXIS Sulfa (Sulfonamide Antibiotics) Allergy (Verified 10/17/16 05:21) RASH Home Medications: Home Meds Medication Instructions Recorded Confirmed Nitroglycerin [Nitrostat SL Tab] 0.4 mg SL PRN PRN 02/14/15 10/11/16 Carvedilol [Coreg] 3.125 mg PO BID 11/16/15 10/11/16 Simvastatin 20 mg PO HS 11/16/15 10/11/16 Thiamine [Vitamin B1 Tab] 100 mg PO DAILY 11/16/15 10/11/16 Enalapril Maleate [Vasotec] 2.5 mg PO DAILY 12/13/15 10/11/16 Ipratropium/Albuterol Sulfate 1 inhaler IH PRN PRN 12/13/15 10/11/16 [Iprat-Albut 0.5-3(2.5) mg/3 ml] Isosorbide Mononitrate [Imdur] 30 mg PO DAILY 12/13/15 10/11/16 Folic Acid 1 tab PO DAILY 08/24/16 10/11/16 Naproxen [Naprosyn Tab] 1 tab PO BID 08/24/16 10/11/16 Pantoprazole Sodium [Protonix] 1 tab PO DAILY 08/24/16 10/11/16 Review of Systems - Physician Review All systems were reviewed & negative as marked: Yes - Review of Systems Constitutional: Normal. absent: Fatigue, Fevers Respiratory: SOB. absent: Cough, Sputum Cardiovascular: Chest Pain. absent: Palpitations Gastrointestinal: absent: Abdominal Pain, Diarrhea, Nausea, Vomiting Neurological: Normal. absent: Headache, Dizziness Psychiatric: Normal Physical Exam Vital Signs Reviewed: Yes Vital Signs Temp Pulse Resp BP Pulse Ox 10/17/16 05:17 98.6 F 86 20 121/76 96 Temperature: Afebrile Blood Pressure: Normal Pulse: Regular Respiratory Rate: Normal Appearance: Positive for: Well-Appearing, Non-Toxic, Comfortable Pain Distress: None Mental Status: Positive for: Alert and Oriented X 3 - Systems Exam Head: Present: Atraumatic, Normocephalic Pupils: Present: PERRL Extroacular Muscles: Present: EOMI Conjunctiva: Present: Normal Respiratory/Chest: Present: Clear to Auscultation, Good Air Exchange. No: Respiratory Distress, Accessory Muscle Use Cardiovascular: Present: Regular Rate and Rhythm, Normal S1, S2. No: Murmurs Abdomen: Present: Normal Bowel Sounds. No: Tenderness, Distention, Peritoneal Signs, Rebound, Guarding Upper Extremity: Present: Normal Inspection. No: Cyanosis, Edema Lower Extremity: Present: Normal Inspection. No: Edema Neurological: Present: GCS=15, CN II-XII Intact, Speech Normal Skin: Present: Warm, Dry, Normal Color. No: Rashes Psychiatric: Present: Alert, Oriented x 3, Normal Insight, Normal Concentration Medical Decision Making ED Course and Treatment: 10/17/16 05:42 Impression: A 61 year old male who presents to the emergency department complaining of chest pain and shortness of breath since last night. Plan: -- EKG -- Labs, cardiac enzymes -- Chest X-ray -- Duoneb -- Urinalysis -- Reassess and disposition Progress Notes: 10/17/16 05:44 EKG reviewed by me: NSR @ [address] elevations, probably due to early repolarization. No change from previous. Patient wants to leave the emergency department against medical advice. Advised the patient personally to say in the hospital for completion of the treatment, but patient states he is aware of the risks and wants to sign out against medical advice. The patient is choosing to leave against medical advice. I have personally explained to the patient that choosing to do so may result in permanent bodily harm or . I have discussed at great length that without further evaluation and monitoring there may be unforeseen circumstances and/or deterioration causing permanent bodily harm or as a result of their choice. The patient is alert, oriented, and shows the mental capacity to make clear decisions regarding the patients health care at this time. The patient continues to wish to leave against medical advice. The patient has been advised that they should return to the emergency room immediately if they change their mind at any time, or if their condition begins to change or worsen in any way. 10/21/16 19:21 - Lab Interpretations Lab Results: 10/17/16 05:20 10/17/16 05:20 Lab Results 10/17/16 05:20: WBC 9.0 D, RBC 3.77, Hgb 12.5 L, Hct 37.6 L, MCV 99.7, MCH 33.2 , MCHC 33.2, RDW 15.3 H, Plt Count 257, MPV 9.1, Gran % 42.3 L, Lymph % (Auto) 47.2 H, [place] % (Auto) 8.7 H, Eos % (Auto) 1.5, Baso % (Auto) 0.3, Gran # 3.79, Lymph # 4.2 H, [place] # 0.8 H, Eos # 0.1, Baso # 0.03, Sodium 142, Potassium 3.9, Chloride 104, Carbon Dioxide 24, Anion Gap 18, BUN 14, Creatinine 0.8, Est GFR ( Amer) > 60, Est GFR (Non-Af Amer) > 60, Random Glucose 74, Calcium 9.0, Magnesium 2.2, Total Bilirubin 0.5, AST 38, ALT 17, Alkaline Phosphatase 65, Lactate Dehydrogenase 415, Total Creatine Kinase 135, Troponin I < 0.01, Total Protein 7.3, Albumin 4.2, Globulin 3.0, Albumin/Globulin Ratio 1.4 - RAD Interpretation Radiology Orders: 10/17/16 05:20 CHEST PORTABLE [RAD] Stat - Medication Orders Current Medication Orders: Discontinued Medications Albuterol/Ipratropium (Duoneb 3 Mg/0.5 Mg (3 Ml) Ud) Confirm Administered Dose 3 ml .ROUTE .STK-MED ONE Stop: 10/17/16 05:22 Last Admin: 10/17/16 05:29 Dose: 3 ML Albuterol/Ipratropium (Duoneb 3 Mg/0.5 Mg (3 Ml) Ud) 3 ml IH STAT STA Stop: 10/17/16 05:22 Last Admin: 10/17/16 05:29 Dose: - Scribe Statement The provider has reviewed the documentation as recorded by the Arina Floyd Provider Attestation: All medical record entries made by the Sarahibinga were at my direction and personally dictated by me. I have reviewed the chart and agree that the record accurately reflects my personal performance of the history, physical exam, medical decision making, and the department course for this patient. I have also personally directed, reviewed, and agree with the discharge instructions and disposition. Disposition/Present on Arrival - Present on Arrival Any Indicators Present on Arrival: No History of DVT/PE: No History of Uncontrolled Diabetes: No Urinary Catheter: No History of Decub. Ulcer: No History Surgical Site Infection Following: None - Disposition Have Diagnosis and Disposition been Completed?: Yes Diagnosis: Chest pain, Acute exacerbation of COPD with asthma Disposition: AGAINST MEDICAL ADVICE Disposition Time: 05:50 Patient Problems: Current Active Problems Problem Status Diagnosed Alcohol withdrawal syndrome Acute Colitis Acute DVT prophylaxis Acute Facial fracture due to fall Acute HTN (hypertension) Acute Near syncope Acute Condition: UNKNOWN Discharge Instructions (ExitCare): Chest Pain (ED)
[2016-10-17 06:04] LABS: ALB/GLOB RATIO 1.4 (1.1-1.8); ALKALINE PHOSPHATASE 65 U/L (38-133); ALT/SGPT 17 U/L (7-56); AST/SGOT 38 U/L (15-59); BILIRUBIN,TOTAL 0.5 mg/dL (0.2-1.3); BLOOD UREA NITROGEN 14 mg/dL (7-21); CARBON DIOXIDE 24 mmol/L (21-33); CHLORIDE 104 mmol/L (98-107); GFR AFRICAN-AMERICAN > 60; GLUCOSE,RANDOM 74 mg/dL (70-110); MAGNESIUM 2.2 mg/dL (1.7-2.2); POTASSIUM 3.9 mmol/L (3.6-5.0); SODIUM 142 mmol/L (132-148); TOTAL PROTEIN 7.3 g/dL (5.8-8.3)
[2016-10-17 06:48] LABS: TROPONIN I < 0.01 ng/mL
--- NOTE | 2016-10-17 07:19 | RAD ---
HISTORY: cp COMPARISON: 10/10/2016 4:40 a.m. FINDINGS: LUNGS: No active pulmonary disease. PLEURA: No significant pleural effusion identified, no pneumothorax apparent. CARDIOVASCULAR: Normal. OSSEOUS STRUCTURES: Prominent right S coaster cartilaginous junction hypertrophic arthrosis -similar VISUALIZED UPPER ABDOMEN: Normal. OTHER FINDINGS: Continuous intact sternal wires and coronary artery bypass clips noted. EKG leads in place IMPRESSION: No active disease.
--- NOTE | 2016-10-17 09:00 | CARD ---
APPROVED REPORT EKG Measurement Heart [id number] <Conclusion> Normal sinus rhythm ST elevation, probably due to early repolarization Borderline ECG
== END 2016-10-17 05:33 | disposition left against medical advice (07) ==
LOC: ED 05:03
DX: J44.1 Chronic obstructive pulmonary disease with (acute) exacerbation (principal); J45.909 Unspecified asthma, uncomplicated; R07.9 Chest pain, unspecified; I25.10 Atherosclerotic heart disease of native coronary artery without angina pectoris; I25.2 Old myocardial infarction; I10 Essential (primary) hypertension; F41.9 Anxiety disorder, unspecified; Z95.5 Presence of coronary angioplasty implant and graft; F17.210 Nicotine dependence, cigarettes, uncomplicated

== ENCOUNTER 2016-10-23 03:36 | Emergency (ER) | payer MEDICAID ==
[2016-10-23 05:13] VITALS: BMI 23.6
== END 2016-10-23 04:13 | disposition left against medical advice (07) ==
LOC: ED 03:36
DX: Z02.89 Encounter for other administrative examinations (principal); R05 Cough

== ENCOUNTER 2016-10-23 05:07 | Inpatient (IN) | payer MEDICAID ==
[2016-10-23 05:13] VITALS: BMI 23.6
[2016-10-23] MEDS ORDERED: Albuterol-Ipratrop 3 mg / 0.5 (3 ml) UD ONE (05:28)
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
[2016-10-23 06:38] LABS: ADD MANUAL DIFF? NO
[2016-10-23] MEDS ORDERED: HYDROmorphone 1 mg/ml ISec IVP STA ×2 (06:48→09:14)
[2016-10-23 06:53] LABS: ALB/GLOB RATIO 1.5 (1.1-1.8); ALKALINE PHOSPHATASE 86 U/L (38-133); ALT/SGPT 26 U/L (7-56); AST/SGOT 57 U/L (15-59); BASO # 0.05 K/mm3 (0.0-2.0); BASO % 0.5 % (0.0-3.0); BILIRUBIN,TOTAL 0.8 mg/dL (0.2-1.3); BLOOD UREA NITROGEN 15 mg/dL (7-21); CARBON DIOXIDE 24 mmol/L (21-33); CHLORIDE 97 mmol/L (98-107); EOS # 0.2 (0.0-0.7); EOS % 1.5 % (1.5-5.0); GFR AFRICAN-AMERICAN > 60; GLUCOSE,RANDOM 58 mg/dL (70-110); GRAN # 6.34 (1.4-6.5); GRAN % 60.8 % (50.0-68.0); HEMATOCRIT 39.7 % (42.0-52.0); LYMPH # 2.8 (1.2-3.4); LYMPH % 26.8 % (22.0-35.0); MEAN CORPUSCULAR HEMOGLOBIN 33.7 pg (25.0-35.0); MEAN PLATELET VOLUME 9.1 fl (7.0-11.0); MONO # 1.1 (0.1-0.6); MONO % 10.4 % (1.0-6.0); PLATELET COUNT 257 10^3/uL (120.0-450.0); POTASSIUM 4.5 mmol/L (3.6-5.0); RED CELL DISTRIBUTION WIDTH 15.2 % (11.5-14.5); SODIUM 138 mmol/L (132-148); TOTAL PROTEIN 8.1 g/dL (5.8-8.3); WHITE BLOOD COUNT 10.4 10^3/ul (4.5-11.0)
[2016-10-23 07:02] LABS: TROPONIN I 0.02 ng/mL
[2016-10-23] MEDS: Albuterol-Ipratrop 3 mg / 0.5 (3 ml) UD IH SCH ×5 (07:08→20:19)
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
[2016-10-23 07:29] LABS: VENOUS BLOOD GAS BASE EXCESS -3.7 mmol/L (0.0-2.0); VENOUS BLOOD PH 7.28 (7.32-7.43)
[2016-10-23] MEDS ORDERED: Morphine 2 mg/ml ISec IVP STA ×2 (07:39→08:48)
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
[2016-10-23] MEDS ORDERED: Cefepime IV 2 gm in NS 100 ML IVPB STA (07:43)
[2016-10-23] MEDS ORDERED: Albuterol-Ipratrop 3 mg / 0.5 (3 ml) UD IH STA (07:46)
[2016-10-23] MEDS ORDERED: Sodium Chloride 0.9% 1,000 ML IV STA (08:31)
[2016-10-23 08:57] LABS: INR 1.04 (0.93-1.08); PARTIAL THROMBOPLASTIN TIME 22.9 Seconds (23.7-30.8)
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
--- NOTE | 2016-10-23 09:34 | PCM.PROC ---
Procedures Attestation:: I certify that I have explained the specified Operation(s) or Procedure(s), risks, benefits and reasonable alternatives to the Patient and/or other person responsible. The opportunity was given to ask questions and all questions answered - Chest Tube Chest Tube Location: Anterior Chest Left Chest Tube Procedure: Chlorhexidine Tube Sutured to Skin: Yes Sterile Dressing Applied: Yes Anesthesia: Lidocaine 1% Incision Made With: #11 blade Post Procedure: sutured to skin, sterile dressing applied [place] of [place]: Yes Tube Drainage: blood Post Procedure CXR?: Yes Patient Tolerated Procedure: Yes
--- NOTE | 2016-10-23 10:20 | RAD ---
HISTORY: s/p chest tube insertion COMPARISON: 10/23/2016 at 7:56 a.m. FINDINGS: LUNGS: No consolidation. PLEURA: Status post left chest tube insertion. No residual pneumothorax identified. No pleural effusion seen. CARDIOVASCULAR: Normal. OSSEOUS STRUCTURES: No significant abnormalities. VISUALIZED UPPER ABDOMEN: Normal. OTHER FINDINGS: Extensive subcutaneous emphysema over left lateral chest wall extending into the neck. IMPRESSION: Left chest tube insertion. No residual pneumothorax identified.
[2016-10-23] MEDS ORDERED: Oxycodone/Acetaminophen 5/325 mg Tab PO PRN (11:00)
[2016-10-23] MEDS ORDERED: Multivitamin (MVI) 10 ML, Thiamine 100 MG, Folic Acid 1 MG in Sodium Chloride 0.9% 1,00... IV ONE (11:06)
[2016-10-23] MEDS ORDERED: IPRATROPIUM INH PRN (11:15)
[2016-10-23 11:41] LABS: VENOUS BLOOD GAS BASE EXCESS -3.5 mmol/L (0.0-2.0); VENOUS BLOOD PH 7.21 (7.32-7.43)
[2016-10-23] MEDS: Morphine 2 mg/ml ISec IVP PRN ×3 (12:06→22:22)
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
[2016-10-23 15:46] LABS: ADD MANUAL DIFF? NO
[2016-10-23 15:48] LABS: BASO # 0.02 K/mm3 (0.0-2.0); BASO % 0.2 % (0.0-3.0); GRAN # 8.67 (1.4-6.5); GRAN % 82.1 % (50.0-68.0); LYMPH # 0.9 (1.2-3.4); LYMPH % 8.8 % (22.0-35.0); MEAN CELL VOLUME 102.5 fL (80.0-105.0); MEAN CORPUSCULAR HEMOGLOBIN 33.8 pg (25.0-35.0); MEAN PLATELET VOLUME 9.1 fl (7.0-11.0); MONO # 0.9 (0.1-0.6); MONO % 8.9 % (1.0-6.0); PLATELET COUNT 181 10^3/uL (120.0-450.0); RED CELL DISTRIBUTION WIDTH 15.3 % (11.5-14.5); WHITE BLOOD COUNT 10.6 10^3/ul (4.5-11.0)
[2016-10-23 15:48] LABS: URINE APPEARANCE CLEAR (CLEAR); URINE BILIRUBIN NEGATIVE (NEGATIVE); URINE BLOOD NEGATIVE (NEGATIVE); URINE COLOR YELLOW (YELLOW); URINE GLUCOSE (UA) NEGATIVE (NEGATIVE); URINE KETONE 15 mg/dL (NEGATIVE); URINE LEUKOCYTE ESTERASE NEGATIVE Leu/uL (NEGATIVE); URINE PROTEIN NEGATIVE mg/dL (<30 mg/dL); URINE UROBILINOGEN 0.2 E.U./dL (<1 E.U./dL)
[2016-10-23 15:52] LABS: VENOUS BLOOD GAS BASE EXCESS -2.8 mmol/L (0.0-2.0); VENOUS BLOOD PH 7.24 (7.32-7.43)
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
--- NOTE | 2016-10-23 18:30 | CARD ---
APPROVED REPORT EKG Measurement Heart [id number] ID [id number] <Conclusion> Poor data quality, interpretation may be adversely affected Normal sinus rhythm Normal ECG
--- NOTE | 2016-10-23 20:11 | US ---
HISTORY: Leg pain and swelling. Evaluate for DVT PHYSICIAN(S): Lauro Soliz MD. TECHNIQUE: Duplex sonography and color-flow Doppler with graded compression were used to evaluate the deep venous systems of both lower extremities. FINDINGS: The visualized deep venous systems of both lower extremities are sonographically normal and compressible. Normal wave forms and augmentation are seen. There is no sonographic evidence for deep venous thrombosis in the visualized segments of both lower extremities. IMPRESSION: No sonographic evidence for deep venous thrombosis in the visualized segments of both lower extremities.
[2016-10-24] MEDS: Morphine 2 mg/ml ISec IVP PRN ×5 (02:01→22:09)
[2016-10-24 05:22] LABS: ARTERIAL BLOOD GAS HCO3 26.6 mmol/L (21-28); ARTERIAL BLOOD GAS O2 CAPACITY 14.5 mL/dl (16-24); ARTERIAL BLOOD GAS O2 CONTENT 14.3 ML/dl (15-23); ARTERIAL BLOOD GAS PH 7.39 (7.35-7.45); ARTERIAL BLOOD HGB O2 SAT 95.2 % (95.0-98.0); CARBOXYHEMOGLOBIN 2.6 % (0.5-1.5); HHB 1.3 % (0-5); METHEMOGLOBIN 0.9 % (0.0-3.0)
--- NOTE | 2016-10-24 07:29 | CP.CCUPN ---
CCU Subjective - Physician Review Critical Care Time Spent (in minutes): 40 CCU Objective - Vital Signs / Intake & Output Vital Signs (Last 4 hours): Vital Signs Temp Pulse Resp BP Pulse Ox 10/24/16 06:00 77 16 161/81 H 99 10/24/16 05:00 80 22 152/70 H 99 10/24/16 04:00 98.8 F 75 15 162/82 H 98 Intake and Output (Last 8hrs): Intake & Output 10/23/16 10/24/16 10/24/16 22:59 06:59 14:59 Intake Total 920 1600 Output Total 365 1020 Balance 555 580 Intake: IV 600 1200 Right Hand 600 1200 Oral 320 400 Output: Chest Tube Drainage 5 20 Left Anterior Chest 5 20 Urine 360 1000 Urine, Voided 360 1000 - Physical Exam Head: Positive for: Normocephalic, Laceration (5cm lac rt eyebrow y shaped), Other Pupils: Positive for: PERRL Extroacular Muscles: Positive for: EOMI Conjunctiva: Positive for: Normal Mouth: Positive for: Moist Mucous Membranes Neck: Positive for: Normal Range of Motion Respiratory/Chest: Positive for: Clear to Auscultation, Good Air Exchange (L ct in place ), Wheezes. Negative for: Respiratory Distress, Accessory Muscle Use Cardiovascular: Positive for: Regular Rate and Rhythm, Normal S1, S2. Negative for: Murmurs Abdomen: Positive for: Normal Bowel Sounds. Negative for: Tenderness, Distention, Peritoneal Signs Upper Extremity: Positive for: Normal Inspection. Negative for: Cyanosis, Edema Lower Extremity: Positive for: Normal Inspection. Negative for: Edema Neurological: Positive for: GCS=15, CN II-XII Intact, Speech Normal Skin: Positive for: Warm, Dry, Normal Color. Negative for: Rashes Psychiatric: Positive for: Alert, Oriented x 3, Normal Concentration - Medications Active Medications: Active Medications Generic Name Dose Route Start Last Admin Trade Name Freq PRN Reason Stop Dose Admin Acetaminophen 650 mg 10/23/16 11:00 Tylenol 325mg Tab PO Q6H PRN Pain, Mild (1-3) Albuterol/Ipratropium 3 ml 10/23/16 11:15 Duoneb 3 Mg/0.5 Mg (3 Ml) Ud IH Q2H PRN Shortness of Breath Albuterol/Ipratropium 3 ml 10/23/16 14:00 10/23/16 20:19 Duoneb 3 Mg/0.5 Mg (3 Ml) Ud IH 3 ml [id number] [facility] Administration Aspirin 81 mg 10/24/16 10:00 Aspirin Chewable PO DAILY [facility] Atorvastatin Calcium 10 mg 10/23/16 17:00 10/23/16 17:08 Lipitor PO 10 mg DIN [facility] Administration Chlordiazepoxide 25 mg 10/23/16 14:00 10/24/16 05:19 Librium PO 25 mg Q8 [facility] Administration Protocol Folic Acid 1 mg 10/24/16 10:00 Folic Acid PO DAILY [facility] Lorazepam 2 mg 10/23/16 11:22 Ativan IVP Q3H PRN Symptoms of alcohol withdrawl Protocol Montelukast Sodium 10 mg 10/23/16 22:00 10/23/16 22:05 Singulair PO 10 mg HS [facility] Administration Morphine Sulfate 2 mg 10/23/16 11:00 10/24/16 06:11 Morphine IVP 2 mg Q4H PRN Administration Pain, severe (8-10) Ondansetron HCl 4 mg 10/23/16 11:00 Zofran Inj IVP Q6H PRN Nausea/Vomiting Oxycodone/Acetaminophen 1 tab 10/23/16 11:00 Percocet 5/325 Mg Tab PO 10/26/16 11:01 Q4H PRN Pain, moderate (4-7) Pantoprazole Sodium 40 mg 10/24/16 10:00 Protonix Ec Tab PO DAILY [facility] Thiamine HCl 100 mg 10/24/16 10:00 Vitamin B1 Tab PO DAILY [facility] - Patient Studies Lab Studies: Lab Studies 10/24/16 10/23/16 10/23/16 Range/Units 05:00 22:20 15:31 WBC (4.5-11.0) 10^3/ul RBC (3.5-6.1) 10^6/uL Hgb (14.0-18.0) gm/dL Hct (42.0-52.0) % MCV (80.0-105.0) fL MCH (25.0-35.0) pg MCHC (31.0-37.0) g/dl RDW (11.5-14.5) % Plt Count (120.0-450.0) 10^3/uL MPV (7.0-11.0) fl Gran % (50.0-68.0) % Lymph % (Auto) (22.0-35.0) % [place] % (Auto) (1.0-6.0) % Eos % (Auto) (1.5-5.0) % Baso % (Auto) (0.0-3.0) % Gran # (1.4-6.5) Lymph # (1.2-3.4) Hamilton # (0.1-0.6) Eos # (0.0-0.7) Baso # (0.0-2.0) K/mm3 pCO2 44 (35-45) mm/Hg pO2 85.0 (80-100) mm/Hg HCO3 26.6 (21-28) mmol/L ABG pH 7.39 (7.35-7.45) ABG Total CO2 28.0 (22-28) mmol.L ABG O2 Saturation 98.7 H (95-98) % ABG O2 Content 14.3 L (15-23) ML/dl ABG Base Excess 1.3 (-2.0-3.0) mmol/L ABG Hemoglobin 10.6 L (11.7-17.4) g/dL ABG Carboxyhemoglobin 2.6 H (0.5-1.5) % POC ABG HHb (Measured) 1.3 (0-5) % ABG Methemoglobin 0.9 (0.0-3.0) % ABG O2 Capacity 14.5 L (16-24) mL/dl VBG pH (7.32-7.43) VBG pCO2 (40-60) VBG HCO3 (21-28) mmol/l VBG Total CO2 (22-28) mmol.L VBG O2 Sat (Calc) (40-65) % VBG Base Excess (0.0-2.0) mmol/L VBG Potassium (3.6-5.2) mmol/L Hgb O2 Saturation 95.2 (95.0-98.0) % Sodium (132-148) mmol/L Chloride (98-107) mmol/L Glucose (75-110) mg/dl Lactate (0.7-2.1) mmol/L FiO2 28.0 % POC Glucose (mg/dL) 106 (65-110) mg/dL Venous Blood Potassium (3.6-5.2) mmol/L Urine Color Yellow (YELLOW) Urine Appearance Clear (CLEAR) Urine pH 6.0 (4.7-8.0) Ur Specific [place] 1.025 (1.005-1.035) Urine Protein Negative (<30 mg/dL) mg/dL Urine Glucose (UA) Negative (NEGATIVE) mg/dL Urine Ketones 15 H (NEGATIVE) mg/dL Urine Blood Negative (NEGATIVE) Urine Nitrate Negative (NEGATIVE) Urine Bilirubin Negative (NEGATIVE) Urine Urobilinogen 0.2 (<1 E.U./dL) E.U./dL Ur Leukocyte Esterase Negative (NEGATIVE) Jenifer/uL Urine Opiates Screen Positive H (NEGATIVE) Urine Methadone Screen Negative (NEGATIVE) Ur Barbiturates Screen Negative (NEGATIVE) Ur Phencyclidine Scrn Negative (NEGATIVE) Ur Amphetamines Screen Negative (NEGATIVE) U Benzodiazepines Scrn Negative (NEGATIVE) U Oth Cocaine Metabols Negative (NEGATIVE) U Cannabinoids Screen Negative (NEGATIVE) 10/23/16 10/23/16 Range/Units 15:30 11:29 WBC 10.6 (4.5-11.0) 10^3/ul RBC 3.61 (3.5-6.1) 10^6/uL Hgb 12.2 L (14.0-18.0) gm/dL Hct 37.0 L (42.0-52.0) % MCV 102.5 (80.0-105.0) fL MCH 33.8 (25.0-35.0) pg MCHC 33.0 (31.0-37.0) g/dl RDW 15.3 H (11.5-14.5) % Plt Count 181 (120.0-450.0) 10^3/uL MPV 9.1 (7.0-11.0) fl Gran % 82.1 H (50.0-68.0) % Lymph % (Auto) 8.8 L (22.0-35.0) % [place] % (Auto) 8.9 H (1.0-6.0) % Eos % (Auto) 0.0 L (1.5-5.0) % Baso % (Auto) 0.2 (0.0-3.0) % Gran # 8.67 H (1.4-6.5) Lymph # 0.9 L (1.2-3.4) Hamilton # 0.9 H (0.1-0.6) Eos # 0.0 (0.0-0.7) Baso # 0.02 (0.0-2.0) K/mm3 pCO2 (35-45) mm/Hg pO2 43 50 (80-100) mm/Hg HCO3 (21-28) mmol/L ABG pH (7.35-7.45) ABG Total CO2 (22-28) mmol.L ABG O2 Saturation (95-98) % ABG O2 Content (15-23) ML/dl ABG Base Excess (-2.0-3.0) mmol/L ABG Hemoglobin (11.7-17.4) g/dL ABG Carboxyhemoglobin (0.5-1.5) % POC ABG HHb (Measured) (0-5) % ABG Methemoglobin (0.0-3.0) % ABG O2 Capacity (16-24) mL/dl VBG pH 7.24 L 7.21 L (7.32-7.43) VBG pCO2 60.0 64.0 H (40-60) VBG HCO3 25.7 25.6 (21-28) mmol/l VBG Total CO2 27.5 27.6 (22-28) mmol.L VBG O2 Sat (Calc) 78.7 H 85.0 H (40-65) % VBG Base Excess -2.8 L -3.5 L (0.0-2.0) mmol/L VBG Potassium 4.4 4.4 (3.6-5.2) mmol/L Hgb O2 Saturation (95.0-98.0) % Sodium 135.0 136.0 (132-148) mmol/L Chloride 101.0 102.0 (98-107) mmol/L Glucose 68 L 66 L (75-110) mg/dl Lactate 1.9 2.1 (0.7-2.1) mmol/L FiO2 21.0 21.0 % POC Glucose (mg/dL) (65-110) mg/dL Venous Blood Potassium 4.4 4.4 (3.6-5.2) mmol/L Urine Color (YELLOW) Urine Appearance (CLEAR) Urine pH (4.7-8.0) Ur Specific [place] (1.005-1.035) Urine Protein (<30 mg/dL) mg/dL Urine Glucose (UA) (NEGATIVE) mg/dL Urine Ketones (NEGATIVE) mg/dL Urine Blood (NEGATIVE) Urine Nitrate (NEGATIVE) Urine Bilirubin (NEGATIVE) Urine Urobilinogen (<1 E.U./dL) E.U./dL Ur Leukocyte Esterase (NEGATIVE) Jenifer/uL Urine Opiates Screen (NEGATIVE) Urine Methadone Screen (NEGATIVE) Ur Barbiturates Screen (NEGATIVE) Ur Phencyclidine Scrn (NEGATIVE) Ur Amphetamines Screen (NEGATIVE) U Benzodiazepines Scrn (NEGATIVE) U Oth Cocaine Metabols (NEGATIVE) U Cannabinoids Screen (NEGATIVE) Laboratory Results - last 24 hr 10/23/16 10/23/16 10/23/16 11:29 15:30 15:31 WBC 10.6 RBC 3.61 Hgb 12.2 L Hct 37.0 L MCV 102.5 MCH 33.8 MCHC 33.0 RDW 15.3 H Plt Count 181 MPV 9.1 Gran % 82.1 H Lymph % (Auto) 8.8 L [place] % (Auto) 8.9 H Eos % (Auto) 0.0 L Baso % (Auto) 0.2 Gran # 8.67 H Lymph # 0.9 L Hamilton # 0.9 H Eos # 0.0 Baso # 0.02 pCO2 pO2 50 43 HCO3 ABG pH ABG Total CO2 ABG O2 Saturation ABG O2 Content ABG Base Excess ABG Hemoglobin ABG Carboxyhemoglobin POC ABG HHb (Measured) ABG Methemoglobin ABG O2 Capacity VBG pH 7.21 L 7.24 L VBG pCO2 64.0 H 60.0 VBG HCO3 25.6 25.7 VBG Total CO2 27.6 27.5 VBG O2 Sat (Calc) 85.0 H 78.7 H VBG Base Excess -3.5 L -2.8 L VBG Potassium 4.4 4.4 Hgb O2 Saturation Sodium 136.0 135.0 Chloride 102.0 101.0 Glucose 66 L 68 L Lactate 2.1 1.9 FiO2 21.0 21.0 POC Glucose (mg/dL) Venous Blood Potassium 4.4 4.4 Urine Color Yellow Urine Appearance Clear Urine pH 6.0 Ur Specific [place] 1.025 Urine Protein Negative Urine Glucose (UA) Negative Urine Ketones 15 H Urine Blood Negative Urine Nitrate Negative Urine Bilirubin Negative Urine Urobilinogen 0.2 Ur Leukocyte Esterase Negative Urine Opiates Screen Positive H Urine Methadone Screen Negative Ur Barbiturates Screen Negative Ur Phencyclidine Scrn Negative Ur Amphetamines Screen Negative U Benzodiazepines Scrn Negative U Oth Cocaine Metabols Negative U Cannabinoids Screen Negative 10/23/16 10/24/16 22:20 05:00 WBC RBC Hgb Hct MCV MCH MCHC RDW Plt Count MPV Gran % Lymph % (Auto) [place] % (Auto) Eos % (Auto) Baso % (Auto) Gran # Lymph # [place] # Eos # Baso # pCO2 44 pO2 85.0 HCO3 26.6 ABG pH 7.39 ABG Total CO2 28.0 ABG O2 Saturation 98.7 H ABG O2 Content 14.3 L ABG Base Excess 1.3 ABG Hemoglobin 10.6 L ABG Carboxyhemoglobin 2.6 H POC ABG HHb (Measured) 1.3 ABG Methemoglobin 0.9 ABG O2 Capacity 14.5 L VBG pH VBG pCO2 VBG HCO3 VBG Total CO2 VBG O2 Sat (Calc) VBG Base Excess VBG Potassium Hgb O2 Saturation 95.2 Sodium Chloride Glucose Lactate FiO2 28.0 POC Glucose (mg/dL) 106 Venous Blood Potassium Urine Color Urine Appearance Urine pH Ur Specific [place] Urine Protein Urine Glucose (UA) Urine Ketones Urine Blood Urine Nitrate Urine Bilirubin Urine Urobilinogen Ur Leukocyte Esterase Urine Opiates Screen Urine Methadone Screen Ur Barbiturates Screen Ur Phencyclidine Scrn Ur Amphetamines Screen U Benzodiazepines Scrn U Oth Cocaine Metabols U Cannabinoids Screen Fingerstick Blood Sugar Results: 106 Critical Care Progress Note - Nutrition Nutrition: Nutrition Category Date Time Status Dysphagia/Modified Consistency Diet [DIET] Diets 10/23/16 Dinner Ordered Assessment/Plan - Date & Time Date: 10/24/16 Time: 07:28
[2016-10-24] MEDS: Albuterol-Ipratrop 3 mg / 0.5 (3 ml) UD IH SCH ×3 (07:50→20:29)
--- NOTE | 2016-10-24 08:11 | RAD ---
HISTORY: tension pneumo, s/p chest tube, comparison COMPARISON: 10/23/2016 portable semi-erect at 9:37 a.m. FINDINGS: LUNGS: No gross pneumothorax is seen. No mediastinal shift is seen to suggest a tension pneumothorax. There is extensive left subcutaneous emphysema over the left thorax into the left and right supraclavicular soft tissues. Left inferolateral interval pleural thickening/ reaction is noted. A left chest tube tip is in the mid to upper lung zone as before PLEURA: As above CARDIOVASCULAR: Normal. Midline sternotomy wires and coronary artery bypass clips are present -as before OSSEOUS STRUCTURES: No significant abnormalities. VISUALIZED UPPER ABDOMEN: Normal. OTHER FINDINGS: None. IMPRESSION: Interval left inferolateral pleural thickening/reaction possible interval small left pleural effusion. Some underlying atelectatic changes here perhaps relating to splinting this patient with a left chest tube is probable. No pneumothorax or tension pneumothorax appreciated Extensive subcutaneous emphysema as detailed above
[2016-10-24] MEDS: Pantoprazole 40 mg EC Tab PO SCH (09:20)
--- NOTE | 2016-10-24 09:20 | CP.PCM.PN ---
Subjective - Date & Time of Evaluation Date of Evaluation: 10/24/16 Time of Evaluation: 09:14 - Subjective Subjective: SURGERY PROGRESS NOTE FOR DR. SOTELO 61M seen and examined at bedside. Patient states he is no longer short of breath , continuous to complain of left sided rib pain in the location of his fractures. No acute events overnight. Objective - Vital Signs/Intake and Output Vital Signs (last 24 hours): Temp Pulse Resp BP Pulse Ox 98.8 F 77 16 161/81 H 99 10/24/16 04:00 10/24/16 06:00 10/24/16 06:00 10/24/16 06:00 10/24/16 06:00 Intake and Output: 10/24/16 10/24/16 06:59 18:59 Intake Total 1600 Output Total 1020 Balance 580 - Medications Medications: Current Medications Acetaminophen (Tylenol 325mg Tab) 650 mg PO Q6H PRN PRN Reason: Pain, Mild (1-3) Albuterol/Ipratropium (Duoneb 3 Mg/0.5 Mg (3 Ml) Ud) 3 ml IH Q2H PRN PRN Reason: Shortness of Breath Albuterol/Ipratropium (Duoneb 3 Mg/0.5 Mg (3 Ml) Ud) 3 ml IH [id number] [facility] Last Admin: 10/24/16 07:50 Dose: 3 ml Aspirin (Aspirin Chewable) 81 mg PO DAILY [facility] Atorvastatin Calcium (Lipitor) 10 mg PO DIN [facility] Last Admin: 10/23/16 17:08 Dose: 10 mg Chlordiazepoxide (Librium) 25 mg PO Q8 [facility] PRN Reason: Protocol Last Admin: 10/24/16 05:19 Dose: 25 mg Folic Acid (Folic Acid) 1 mg PO DAILY [facility] Lorazepam (Ativan) 2 mg IVP Q3H PRN; Protocol PRN Reason: Symptoms of alcohol withdrawl Montelukast Sodium (Singulair) 10 mg PO HS [facility] Last Admin: 10/23/16 22:05 Dose: 10 mg Morphine Sulfate (Morphine) 2 mg IVP Q4H PRN PRN Reason: Pain, severe (8-10) Last Admin: 10/24/16 06:11 Dose: 2 mg Ondansetron HCl (Zofran Inj) 4 mg IVP Q6H PRN PRN Reason: Nausea/Vomiting Oxycodone/Acetaminophen (Percocet 5/325 Mg Tab) 1 tab PO Q4H PRN PRN Reason: Pain, moderate (4-7) Stop: 10/26/16 11:01 Pantoprazole Sodium (Protonix Ec Tab) 40 mg PO DAILY [facility] Thiamine HCl (Vitamin B1 Tab) 100 mg PO DAILY [facility] - Labs Labs: 10/23/16 15:30 PT 11.2 Seconds (9.9-11.8) 10/23/16 08:27 INR 1.04 (0.93-1.08) 10/23/16 08:27 APTT 22.9 Seconds (23.7-30.8) L 10/23/16 08:27 - Constitutional Appears: Non-toxic, No Acute Distress - Head Exam Additional comments: right eyebrow laceration with repair - Eye Exam Eye Exam: EOMI, PERRL - Respiratory Exam Respiratory Exam: Wheezes, NORMAL BREATHING PATTERN Additional comments: chest tube in place. dressing changed. 55cc/12hrs, 130cc/total. CXR: No pneumothorax, left subcutaneous emphysema - Cardiovascular Exam Cardiovascular Exam: REGULAR RHYTHM, +S1, +S2 Additional comments: left lower rib region tender to palpation - GI/Abdominal Exam GI & Abdominal Exam: Soft. absent: Distended, Firm, Guarding, Rigid, Tenderness , Rebound - Neurological Exam Neurological Exam: Alert, Awake - Skin Skin Exam: Dry, Intact, Normal Color, Warm Assessment and Plan - Assessment and Plan (Free Text) Assessment: 61M presents with hydropneumothorax s/p chest tube placement POD#1 Repeat CXR: No pneumothorax, left subcutaneous emphysema Plan: - chest tube currently on wall suction - monitor vitals/ daily chest x-ray - chest tube management - Pain management - ICU admit Discussed with Dr. Gopi Alvarez, PGY1
[2016-10-24] MEDS ORDERED: Fluticasone-Salmeterol 500-50mcg Diskus IH SCH (10:00)
[2016-10-24 10:07] LABS: ADD MANUAL DIFF? NO
[2016-10-24 10:12] LABS: BASO # 0.01 K/mm3 (0.0-2.0); BASO % 0.1 % (0.0-3.0); EOS # 0.1 (0.0-0.7); EOS % 1.5 % (1.5-5.0); GRAN # 5.29 (1.4-6.5); GRAN % 78.6 % (50.0-68.0); HEMATOCRIT 33.1 % (42.0-52.0); LYMPH # 0.8 (1.2-3.4); LYMPH % 12.5 % (22.0-35.0); MEAN CELL VOLUME 100.6 fL (80.0-105.0); MEAN CORPUSCULAR HEMOGLOBIN 33.7 pg (25.0-35.0); MEAN CORPUSCULAR HGB CONC 33.5 g/dl (31.0-37.0); MEAN PLATELET VOLUME 9.1 fl (7.0-11.0); MONO # 0.5 (0.1-0.6); MONO % 7.3 % (1.0-6.0); PLATELET COUNT 139 10^3/uL (120.0-450.0); RED CELL DISTRIBUTION WIDTH 15.4 % (11.5-14.5); WHITE BLOOD COUNT 6.7 10^3/ul (4.5-11.0)
[2016-10-24 10:22] LABS: ALB/GLOB RATIO 1.3 (1.1-1.8); ALKALINE PHOSPHATASE 67 U/L (38-133); ALT/SGPT 38 U/L (7-56); AST/SGOT 49 U/L (15-59); BILIRUBIN,TOTAL 0.9 mg/dL (0.2-1.3); BLOOD UREA NITROGEN 9 mg/dL (7-21); CALCIUM 8.3 mg/dL (8.4-10.5); CARBON DIOXIDE 31 mmol/L (21-33); CHLORIDE 95 mmol/L (98-107); GFR AFRICAN-AMERICAN > 60; GLUCOSE,RANDOM 160 mg/dL (70-110); POTASSIUM 3.8 mmol/L (3.6-5.0); SODIUM 129 mmol/L (132-148); TOTAL PROTEIN 6.2 g/dL (5.8-8.3)
[2016-10-24] MEDS: Albuterol-Ipratrop 3 mg / 0.5 (3 ml) UD IH PRN ×2 (11:00→23:27)
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
[2016-10-24] MEDS: Sodium Chloride 0.9% 1,000 ML IV SCH (16:11)
[2016-10-25] MEDS: Albuterol-Ipratrop 3 mg / 0.5 (3 ml) UD IH SCH ×4 (02:07→20:11)
[2016-10-25 07:07] LABS: ADD MANUAL DIFF? NO
[2016-10-25 07:19] LABS: BASO # 0.01 K/mm3 (0.0-2.0); BASO % 0.1 % (0.0-3.0); EOS # 0.1 (0.0-0.7); EOS % 1.5 % (1.5-5.0); GRAN # 7.23 (1.4-6.5); GRAN % 79.9 % (50.0-68.0); HEMATOCRIT 33.7 % (42.0-52.0); LYMPH % 11.2 % (22.0-35.0); MEAN CELL VOLUME 101.2 fL (80.0-105.0); MEAN CORPUSCULAR HEMOGLOBIN 33.6 pg (25.0-35.0); MEAN CORPUSCULAR HGB CONC 33.2 g/dl (31.0-37.0); MEAN PLATELET VOLUME 9.4 fl (7.0-11.0); MONO # 0.7 (0.1-0.6); MONO % 7.3 % (1.0-6.0); PLATELET COUNT 139 10^3/uL (120.0-450.0); RED CELL DISTRIBUTION WIDTH 15.2 % (11.5-14.5); WHITE BLOOD COUNT 9.1 10^3/ul (4.5-11.0)
[2016-10-25 07:41] LABS: ALB/GLOB RATIO 1.3 (1.1-1.8); ALKALINE PHOSPHATASE 68 U/L (38-133); ALT/SGPT 31 U/L (7-56); AST/SGOT 44 U/L (15-59); BILIRUBIN,TOTAL 0.7 mg/dL (0.2-1.3); BLOOD UREA NITROGEN 9 mg/dL (7-21); CALCIUM 8.6 mg/dL (8.4-10.5); CARBON DIOXIDE 28 mmol/L (21-33); CHLORIDE 97 mmol/L (98-107); GFR AFRICAN-AMERICAN > 60; GLUCOSE,RANDOM 116 mg/dL (70-110); PHOSPHOROUS 1.8 mg/dL (2.5-4.5); POTASSIUM 3.8 mmol/L (3.6-5.0); SODIUM 132 mmol/L (132-148); TOTAL PROTEIN 6.3 g/dL (5.8-8.3)
[2016-10-25] MEDS: Morphine 2 mg/ml ISec IVP PRN (07:43)
[2016-10-25] MEDS: Pantoprazole 40 mg EC Tab PO SCH (10:50)
--- NOTE | 2016-10-25 11:25 | RAD ---
HISTORY: tension pneumo, s/p chest tube, comparison COMPARISON: Multiple serial examinations preceding the most recent study: October 24, 2016. Employing similar portable technique performed at 05:40 FINDINGS: LUNGS: Atelectasis at the left base which has improved compared to the prior studies. PLEURA: Chest tube in stable/ satisfactory position left pleural space. No significant pneumothorax. CARDIOVASCULAR: Normal. OSSEOUS STRUCTURES: No significant abnormalities. VISUALIZED UPPER ABDOMEN: Normal. OTHER FINDINGS: Modest increase in subcutaneous emphysema particularly in the neck, dissecting ports the contralateral side. IMPRESSION: Improved aeration of the left lung. No significant pneumothorax. Stable satisfactory position of chest tube.
[2016-10-25] MEDS: Albuterol-Ipratrop 3 mg / 0.5 (3 ml) UD IH PRN (11:27)
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
--- NOTE | 2016-10-25 15:29 | CP.PCM.PN ---
Subjective - Date & Time of Evaluation Date of Evaluation: 10/25/16 Time of Evaluation: 15:25 - Subjective Subjective: SURGERY PROGRESS NOTE FOR DR. SOTELO 61M seen and examined at bedside. Patient continuous to complain of pain in the left lower ribs. Denies shortness of breath. Objective - Vital Signs/Intake and Output Vital Signs (last 24 hours): Temp Pulse Resp BP Pulse Ox 99.5 F 102 H 22 134/63 96 10/25/16 07:30 10/25/16 07:30 10/25/16 07:30 10/25/16 07:30 10/25/16 07:30 Intake and Output: 10/25/16 10/25/16 06:59 18:59 Intake Total 240 540 Output Total 525 Balance -285 540 - Medications Medications: Current Medications Acetaminophen (Tylenol 325mg Tab) 650 mg PO Q6H PRN PRN Reason: Pain, Mild (1-3) Last Admin: 10/24/16 16:35 Dose: 650 mg Albuterol/Ipratropium (Duoneb 3 Mg/0.5 Mg (3 Ml) Ud) 3 ml IH Q2H PRN PRN Reason: Shortness of Breath Last Admin: 10/25/16 11:27 Dose: 3 ml Albuterol/Ipratropium (Duoneb 3 Mg/0.5 Mg (3 Ml) Ud) 3 ml IH [id number] [facility] Last Admin: 10/25/16 13:32 Dose: 3 ml Aspirin (Aspirin Chewable) 81 mg PO DAILY [facility] Last Admin: 10/25/16 10:50 Dose: 81 mg Atorvastatin Calcium (Lipitor) 10 mg PO DIN [facility] Last Admin: 10/24/16 17:16 Dose: 10 mg Chlordiazepoxide (Librium) 25 mg PO Q12 [facility] PRN Reason: Protocol Last Admin: 10/25/16 10:50 Dose: 25 mg Folic Acid (Folic Acid) 1 mg PO DAILY [facility] Last Admin: 10/25/16 10:50 Dose: 1 mg Sodium Chloride (Sodium Chloride 0.9%) 1,000 mls @ 75 mls/hr IV .[id number] [facility] Last Admin: 10/24/16 16:11 Dose: 75 mls/hr Lorazepam (Ativan) 2 mg IVP Q3H PRN; Protocol PRN Reason: Symptoms of alcohol withdrawl Last Admin: 10/25/16 15:14 Dose: 2 mg Montelukast Sodium (Singulair) 10 mg PO HS [facility] Last Admin: 10/24/16 22:08 Dose: 10 mg Morphine Sulfate (Morphine) 2 mg IVP Q4H PRN PRN Reason: Pain, severe (8-10) Last Admin: 10/25/16 07:43 Dose: 2 mg Multivitamins/Vitamin C (Multi-Delyn Liquid) 15 ml PO DAILY [facility] Ondansetron HCl (Zofran Inj) 4 mg IVP Q6H PRN PRN Reason: Nausea/Vomiting Oxycodone/Acetaminophen (Percocet 5/325 Mg Tab) 1 tab PO Q4H PRN PRN Reason: Pain, moderate (4-7) Stop: 10/26/16 11:01 Last Admin: 10/25/16 14:36 Dose: 1 tab Pantoprazole Sodium (Protonix Ec Tab) 40 mg PO DAILY [facility] Last Admin: 10/25/16 10:50 Dose: 40 mg Thiamine HCl (Vitamin B1 Tab) 100 mg PO DAILY [facility] Last Admin: 10/25/16 10:50 Dose: 100 mg - Labs Labs: 10/25/16 06:15 10/25/16 06:15 PT 11.2 Seconds (9.9-11.8) 10/23/16 08:27 INR 1.04 (0.93-1.08) 10/23/16 08:27 APTT 22.9 Seconds (23.7-30.8) L 10/23/16 08:27 - Constitutional Appears: Non-toxic, No Acute Distress - Respiratory Exam Respiratory Exam: Clear to Ausculation Bilateral, NORMAL BREATHING PATTERN Additional comments: chest tube in place on suction, 70cc/24hrs, sanguinuous fluid, dressing changed - Cardiovascular Exam Cardiovascular Exam: REGULAR RHYTHM, +S1, +S2 - GI/Abdominal Exam GI & Abdominal Exam: Soft. absent: Distended, Firm, Guarding, Rigid, Tenderness , Rebound - Neurological Exam Neurological Exam: Alert, Awake Assessment and Plan - Assessment and Plan (Free Text) Assessment: 61M presents with hydropneumothorax s/p chest tube placement POD#2 Repeat CXR: improved aeration of the left lung, no pneumothorax Plan: - chest tube currently on wall suction - monitor vitals/ daily chest x-ray - chest tube management - Pain management - possibly pull chest tube tomorrow (aim 50cc/24hr< less) Discussed with Dr. Gopi Alvarez, PGY1
[2016-10-25] MEDS ORDERED: Potassium Phosphate 30 MMOLE in Sodium Chloride 0.9% 250 ML IVPB ONE (17:15)
[2016-10-26] MEDS: Albuterol-Ipratrop 3 mg / 0.5 (3 ml) UD IH SCH ×4 (02:25→22:05)
--- NOTE | 2016-10-26 08:57 | CP.PCM.PN ---
Subjective - Date & Time of Evaluation Date of Evaluation: 10/26/16 Time of Evaluation: 07:15 - Subjective Subjective: Surgery note for Dr Nguyễn: Pt seen and examined at bedside. No acute events overnight. Pt was pulling on his chest tube and was placed on restraint. He c/o L rib pain well controlled with meds. Denies any sob or chest pain. Objective - Vital Signs/Intake and Output Vital Signs (last 24 hours): Temp Pulse Resp BP Pulse Ox 97.7 F 107 H 20 144/73 95 10/26/16 07:30 10/26/16 07:30 10/26/16 07:30 10/26/16 07:30 10/26/16 07:30 Intake and Output: 10/26/16 10/26/16 06:59 18:59 Intake Total 240 Balance 240 - Medications Medications: Current Medications Acetaminophen (Tylenol 325mg Tab) 650 mg PO Q6H PRN PRN Reason: Pain, Mild (1-3) Last Admin: 10/24/16 16:35 Dose: 650 mg Albuterol/Ipratropium (Duoneb 3 Mg/0.5 Mg (3 Ml) Ud) 3 ml IH Q2H PRN PRN Reason: Shortness of Breath Last Admin: 10/25/16 11:27 Dose: 3 ml Albuterol/Ipratropium (Duoneb 3 Mg/0.5 Mg (3 Ml) Ud) 3 ml IH [id number] [facility] Last Admin: 10/26/16 07:35 Dose: 3 ml Aspirin (Aspirin Chewable) 81 mg PO DAILY [facility] Last Admin: 10/25/16 10:50 Dose: 81 mg Atorvastatin Calcium (Lipitor) 10 mg PO DIN [facility] Last Admin: 10/25/16 17:37 Dose: 10 mg Chlordiazepoxide (Librium) 25 mg PO Q12 [facility] PRN Reason: Protocol Last Admin: 10/25/16 21:36 Dose: Not Given Folic Acid (Folic Acid) 1 mg PO DAILY [facility] Last Admin: 10/25/16 10:50 Dose: 1 mg Sodium Chloride (Sodium Chloride 0.9%) 1,000 mls @ 75 mls/hr IV .[id number] [facility] Last Admin: 10/24/16 16:11 Dose: 75 mls/hr Lorazepam (Ativan) 1 mg PO Q4 PRN; Protocol PRN Reason: Symptoms of alcohol withdrawl Montelukast Sodium (Singulair) 10 mg PO HS [facility] Last Admin: 10/25/16 21:37 Dose: Not Given Morphine Sulfate (Morphine) 2 mg IVP Q4H PRN PRN Reason: Pain, severe (8-10) Last Admin: 10/25/16 07:43 Dose: 2 mg Multivitamins/Vitamin C (Multi-Delyn Liquid) 15 ml PO DAILY [facility] Ondansetron HCl (Zofran Inj) 4 mg IVP Q6H PRN PRN Reason: Nausea/Vomiting Oxycodone/Acetaminophen (Percocet 5/325 Mg Tab) 1 tab PO Q4H PRN PRN Reason: Pain, moderate (4-7) Stop: 10/26/16 11:01 Last Admin: 10/25/16 14:36 Dose: 1 tab Pantoprazole Sodium (Protonix Ec Tab) 40 mg PO DAILY [facility] Last Admin: 10/25/16 10:50 Dose: 40 mg Thiamine HCl (Vitamin B1 Tab) 100 mg PO DAILY [facility] Last Admin: 10/25/16 10:50 Dose: 100 mg - Labs Labs: 10/25/16 06:15 10/25/16 06:15 PT 11.2 Seconds (9.9-11.8) 10/23/16 08:27 INR 1.04 (0.93-1.08) 10/23/16 08:27 APTT 22.9 Seconds (23.7-30.8) L 10/23/16 08:27 - Constitutional Appears: No Acute Distress - ENT Exam ENT Exam: Mucous Membranes Moist - Respiratory Exam Respiratory Exam: Clear to Ausculation Bilateral, NORMAL BREATHING PATTERN Additional comments: Chest tube on water seal this AM. 0 Output. dressing changed. - Cardiovascular Exam Cardiovascular Exam: REGULAR RHYTHM, +S1, +S2. absent: Murmur - GI/Abdominal Exam GI & Abdominal Exam: Soft, Normal Bowel Sounds. absent: Tenderness - Neurological Exam Neurological Exam: Alert, Awake, Oriented x3 Assessment and Plan - Assessment and Plan (Free Text) Assessment: 61M presents with hydropneumothorax s/p chest tube placement POD#3 with repeat CXR shows no pneumothorax Plan: - Chest tube on waterseal this AM - Continue monitor vitals/ daily chest x-ray - chest tube management and dressing changes - Pain management - possibly pull chest tube today Further recs will discuss with Dr. Gopi Simpson IM Resident PGY-1
[2016-10-26] MEDS ORDERED: Multiple Vitamins Oral Solution PO SCH (10:00)
[2016-10-26] MEDS: Pantoprazole 40 mg EC Tab PO SCH (10:55)
--- NOTE | 2016-10-26 11:28 | RAD ---
HISTORY: tension pneumo, s/p chest tube, comparison COMPARISON: 10/25/2016 FINDINGS: LUNGS: There is a left-sided chest tube. No pneumothorax. No significant changes subcutaneous emphysema PLEURA: No significant pleural effusion identified, no pneumothorax apparent. CARDIOVASCULAR: Normal. OSSEOUS STRUCTURES: No significant abnormalities. VISUALIZED UPPER ABDOMEN: Normal. OTHER FINDINGS: None. IMPRESSION: No pneumothorax. No change in subcutaneous emphysema
--- NOTE | 2016-10-26 12:20 | RAD ---
HISTORY: s/p chest tube pull COMPARISON: Earlier same day FINDINGS: LUNGS: No active pulmonary disease. PLEURA: No significant pleural effusion identified, no pneumothorax apparent. CARDIOVASCULAR: Normal. OSSEOUS STRUCTURES: No significant abnormalities. VISUALIZED UPPER ABDOMEN: Normal. OTHER FINDINGS: Left-sided chest tube removed. IMPRESSION: No active disease.
[2016-10-26] MEDS: Oxycodone/Acetaminophen 5/325 mg Tab PO PRN ×2 (13:05→21:34)
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
[2016-10-26] MEDS: Sodium Chloride 0.9% 1,000 ML IV SCH (20:25)
[2016-10-27] MEDS: Albuterol-Ipratrop 3 mg / 0.5 (3 ml) UD IH SCH ×4 (04:15→20:32)
[2016-10-27 07:09] LABS: ALB/GLOB RATIO 1.1 (1.1-1.8); ALKALINE PHOSPHATASE 60 U/L (38-133); ALT/SGPT 43 U/L (7-56); AST/SGOT 49 U/L (15-59); BLOOD UREA NITROGEN 12 mg/dL (7-21); CALCIUM 8.4 mg/dL (8.4-10.5); CARBON DIOXIDE 31 mmol/L (21-33); CHLORIDE 96 mmol/L (98-107); GFR AFRICAN-AMERICAN > 60; GLUCOSE,RANDOM 93 mg/dL (70-110); POTASSIUM 4.1 mmol/L (3.6-5.0); SODIUM 133 mmol/L (132-148); TOTAL PROTEIN 6.2 g/dL (5.8-8.3)
[2016-10-27 07:17] LABS: MEAN CELL VOLUME 101.6 fL (80.0-105.0); MEAN CORPUSCULAR HEMOGLOBIN 33.4 pg (25.0-35.0); MEAN CORPUSCULAR HGB CONC 32.9 g/dl (31.0-37.0); MEAN PLATELET VOLUME 9.6 fl (7.0-11.0); RED CELL DISTRIBUTION WIDTH 15.2 % (11.5-14.5)
--- NOTE | 2016-10-27 08:45 | RAD ---
HISTORY: tension pneumo, s/p chest tube, comparison COMPARISON: 10/26/2016 FINDINGS: LUNGS: Slight increase in the right lower lobe infiltrate. Slight improvement in subcutaneous emphysema on the left side of the chest PLEURA: No significant pleural effusion identified, no pneumothorax apparent. CARDIOVASCULAR: Normal. OSSEOUS STRUCTURES: No significant abnormalities. VISUALIZED UPPER ABDOMEN: Normal. OTHER FINDINGS: None. IMPRESSION: Slight increase in right lower lobe infiltrate.
[2016-10-27] MEDS: Pantoprazole 40 mg EC Tab PO SCH (09:10)
[2016-10-27] MEDS: Oxycodone/Acetaminophen 5/325 mg Tab PO PRN ×2 (09:10→22:18)
[2016-10-27] MEDS: Multivitamin Therapeutic Tab PO SCH (09:14)
[2016-10-27] MEDS: Sodium Chloride 0.9% 1,000 ML IV SCH ×2 (09:17→22:15)
--- NOTE | 2016-10-27 10:23 | CP.PCM.PN ---
Subjective - Date & Time of Evaluation Date of Evaluation: 10/27/16 Time of Evaluation: 09:00 - Subjective Subjective: GENERAL SURGERY PROGRESS NOTE FOR DR. SOTELO Patient seen and examined at bedside. Patient reports pain at rib fracture site. He is requesting Morphine. He states that his breathing has improved and his pain is better now that the chest tube is out. Objective - Vital Signs/Intake and Output Vital Signs (last 24 hours): Temp Pulse Resp BP Pulse Ox 98.2 F 85 18 105/65 100 10/27/16 07:56 10/27/16 07:56 10/27/16 07:56 10/27/16 07:56 10/27/16 07:56 Intake and Output: 10/27/16 10/27/16 06:59 18:59 Intake Total 1440 Output Total 100 Balance 1340 - Medications Medications: Current Medications Acetaminophen (Tylenol 325mg Tab) 650 mg PO Q6H PRN PRN Reason: Pain, Mild (1-3) Last Admin: 10/24/16 16:35 Dose: 650 mg Albuterol/Ipratropium (Duoneb 3 Mg/0.5 Mg (3 Ml) Ud) 3 ml IH Q2H PRN PRN Reason: Shortness of Breath Last Admin: 10/25/16 11:27 Dose: 3 ml Albuterol/Ipratropium (Duoneb 3 Mg/0.5 Mg (3 Ml) Ud) 3 ml IH [id number] [facility] Last Admin: 10/27/16 07:14 Dose: 3 ml Aspirin (Aspirin Chewable) 81 mg PO DAILY [facility] Last Admin: 10/27/16 09:14 Dose: 81 mg Atorvastatin Calcium (Lipitor) 10 mg PO DIN [facility] Last Admin: 10/26/16 18:04 Dose: 10 mg Chlordiazepoxide (Librium) 25 mg PO Q12 [facility] PRN Reason: Protocol Last Admin: 10/27/16 09:11 Dose: 25 mg Folic Acid (Folic Acid) 1 mg PO DAILY [facility] Last Admin: 10/27/16 09:10 Dose: 1 mg Sodium Chloride (Sodium Chloride 0.9%) 1,000 mls @ 75 mls/hr IV .[id number] [facility] Last Admin: 10/27/16 09:17 Dose: 75 mls/hr Levofloxacin/Dextrose (Levaquin 500mg) 100 mls @ 100 mls/hr IVPB DAILY [facility] Lorazepam (Ativan) 1 mg PO Q4 PRN; Protocol PRN Reason: Symptoms of alcohol withdrawl Montelukast Sodium (Singulair) 10 mg PO HS [facility] Last Admin: 10/26/16 21:26 Dose: 10 mg Morphine Sulfate (Morphine) 2 mg IVP Q4H PRN PRN Reason: Pain, severe (8-10) Last Admin: 10/25/16 07:43 Dose: 2 mg Multivitamins (Thera Tab) 1 tab PO DAILY [facility] Last Admin: 10/27/16 09:14 Dose: 1 tab Ondansetron HCl (Zofran Inj) 4 mg IVP Q6H PRN PRN Reason: Nausea/Vomiting Oxycodone/Acetaminophen (Percocet 5/325 Mg Tab) 1 tab PO Q4H PRN PRN Reason: Pain, moderate (4-7) Stop: 10/29/16 13:04 Last Admin: 10/27/16 09:10 Dose: 1 tab Pantoprazole Sodium (Protonix Ec Tab) 40 mg PO DAILY [facility] Last Admin: 10/27/16 09:10 Dose: 40 mg Thiamine HCl (Vitamin B1 Tab) 100 mg PO DAILY [facility] Last Admin: 10/27/16 09:14 Dose: 100 mg - Labs Labs: 10/27/16 06:47 10/27/16 06:47 PT 11.2 Seconds (9.9-11.8) 10/23/16 08:27 INR 1.04 (0.93-1.08) 10/23/16 08:27 APTT 22.9 Seconds (23.7-30.8) L 10/23/16 08:27 - Constitutional Appears: Non-toxic, No Acute Distress - Head Exam Head Exam: ATRAUMATIC, NORMAL INSPECTION - Respiratory Exam Respiratory Exam: NORMAL BREATHING PATTERN. absent: Respiratory Distress Additional comments: Previous chest tube dressing clean/dry/intact - Cardiovascular Exam Cardiovascular Exam: +S1, +S2 - Neurological Exam Neurological Exam: Alert, Awake Assessment and Plan - Assessment and Plan (Free Text) Assessment: 61M with hydropneumothorax s/p chest tube placement POD#4 with repeat CXR shows no pneumothorax Plan: - Chest tube removed yesterday - CXR today showed no pneumothorax - Pain management PRN Further recs will discuss with Dr. Gopi Stafford PGY-2
[2016-10-27] MEDS: Morphine 2 mg/ml ISec IVP PRN (13:09)
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
--- NOTE | 2016-10-28 00:45 | CP.PCM.PN ---
Subjective - Date & Time of Evaluation Date of Evaluation: 10/28/16 Time of Evaluation: 00:43 - Subjective Subjective: SURGERY NOTE FOR DR. SOTELO 61M seen and examined at bedside. Patient resting comfortably. Much less agitated. Pain in left ribs were ribs were broken, denies shortness of breath. Objective - Vital Signs/Intake and Output Vital Signs (last 24 hours): Temp Pulse Resp BP Pulse Ox 100.1 F H 121 H 20 121/67 90 L 10/27/16 17:47 10/27/16 16:47 10/27/16 16:47 10/27/16 16:47 10/27/16 16:47 Intake and Output: 10/27/16 10/28/16 18:59 06:59 Intake Total 480 640 Output Total 300 Balance 180 640 - Medications Medications: Current Medications Acetaminophen (Tylenol 325mg Tab) 650 mg PO Q6H PRN PRN Reason: Pain, Mild (1-3) Last Admin: 10/27/16 16:47 Dose: 650 mg Albuterol/Ipratropium (Duoneb 3 Mg/0.5 Mg (3 Ml) Ud) 3 ml IH Q2H PRN PRN Reason: Shortness of Breath Last Admin: 10/25/16 11:27 Dose: 3 ml Albuterol/Ipratropium (Duoneb 3 Mg/0.5 Mg (3 Ml) Ud) 3 ml IH [id number] [facility] Last Admin: 10/27/16 20:32 Dose: 3 ml Aspirin (Aspirin Chewable) 81 mg PO DAILY [facility] Last Admin: 10/27/16 09:14 Dose: 81 mg Atorvastatin Calcium (Lipitor) 10 mg PO DIN [facility] Last Admin: 10/27/16 18:02 Dose: Not Given Chlordiazepoxide (Librium) 25 mg PO Q12 [facility] PRN Reason: Protocol Last Admin: 10/27/16 22:12 Dose: 25 mg Folic Acid (Folic Acid) 1 mg PO DAILY [facility] Last Admin: 10/27/16 09:10 Dose: 1 mg Sodium Chloride (Sodium Chloride 0.9%) 1,000 mls @ 75 mls/hr IV .[id number] [facility] Last Admin: 10/27/16 22:15 Dose: 75 mls/hr Levofloxacin/Dextrose (Levaquin 500mg) 100 mls @ 100 mls/hr IVPB DAILY [facility] Last Admin: 10/27/16 09:10 Dose: 100 mls/hr Lorazepam (Ativan) 1 mg PO Q4 PRN; Protocol PRN Reason: Symptoms of alcohol withdrawl Montelukast Sodium (Singulair) 10 mg PO HS [facility] Last Admin: 10/27/16 22:12 Dose: 10 mg Morphine Sulfate (Morphine) 2 mg IVP Q4H PRN PRN Reason: Pain, severe (8-10) Last Admin: 10/27/16 13:09 Dose: 2 mg Multivitamins (Thera Tab) 1 tab PO DAILY [facility] Last Admin: 10/27/16 09:14 Dose: 1 tab Ondansetron HCl (Zofran Inj) 4 mg IVP Q6H PRN PRN Reason: Nausea/Vomiting Oxycodone/Acetaminophen (Percocet 5/325 Mg Tab) 1 tab PO Q4H PRN PRN Reason: Pain, moderate (4-7) Stop: 10/29/16 13:04 Last Admin: 10/27/16 22:18 Dose: 1 tab Pantoprazole Sodium (Protonix Ec Tab) 40 mg PO DAILY [facility] Last Admin: 10/27/16 09:10 Dose: 40 mg Thiamine HCl (Vitamin B1 Tab) 100 mg PO DAILY [facility] Last Admin: 10/27/16 09:14 Dose: 100 mg - Labs Labs: 10/27/16 06:47 10/27/16 06:47 PT 11.2 Seconds (9.9-11.8) 10/23/16 08:27 INR 1.04 (0.93-1.08) 10/23/16 08:27 APTT 22.9 Seconds (23.7-30.8) L 10/23/16 08:27 - Constitutional Appears: Non-toxic, No Acute Distress - Respiratory Exam Respiratory Exam: Wheezes (right sided), NORMAL BREATHING PATTERN Additional comments: Left sided stable hematoma on area where ribs are fractured - Cardiovascular Exam Cardiovascular Exam: REGULAR RHYTHM, +S1, +S2 - GI/Abdominal Exam GI & Abdominal Exam: Soft. absent: Distended, Firm, Guarding, Rigid, Tenderness , Rebound Additional comments: Chest tube dressing CDI Assessment and Plan - Assessment and Plan (Free Text) Assessment: 61M with hydropneumothorax s/p chest tube placement POD#5, s/p chest tube removal POD2 Plan: - most recent CXR today showed no pneumothorax, but right lower lung infiltrates - started on antibiotics - will continue monitoring chest tube site - Pain management PRN Further recs discuss with Dr. Gopi Alvarez, PGY1
[2016-10-28] MEDS: Oxycodone/Acetaminophen 5/325 mg Tab PO PRN ×3 (03:03→17:31)
[2016-10-28] MEDS: Albuterol-Ipratrop 3 mg / 0.5 (3 ml) UD IH SCH ×3 (07:09→20:22)
[2016-10-28] MEDS: Multivitamin Therapeutic Tab PO SCH (10:00)
[2016-10-28] MEDS: Pantoprazole 40 mg EC Tab PO SCH (10:00)
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
[2016-10-28] MEDS: Albuterol-Ipratrop 3 mg / 0.5 (3 ml) UD IH PRN (12:09)
[2016-10-28] MEDS: Morphine 2 mg/ml ISec IVP PRN (12:12)
[2016-10-28 12:53] LABS: ARTERIAL BLOOD GAS HCO3 27.1 mmol/L (21-28); ARTERIAL BLOOD GAS O2 CAPACITY 13.9 mL/dl (16-24); ARTERIAL BLOOD GAS O2 CONTENT 12.7 ML/dl (15-23); ARTERIAL BLOOD GAS PH 7.45 (7.35-7.45); ARTERIAL BLOOD HGB O2 SAT 87.5 % (95.0-98.0); CARBOXYHEMOGLOBIN 3.1 % (0.5-1.5); HHB 8.4 % (0-5); METHEMOGLOBIN 1.1 % (0.0-3.0)
[2016-10-28] MEDS: Vancomycin 1gm in NS 250ml 250 ML IVPB SCH (12:59)
[2016-10-28 13:04] LABS: VENOUS BLOOD GAS BASE EXCESS 1.5 mmol/L (0.0-2.0); VENOUS BLOOD PH 7.43 (7.32-7.43)
[2016-10-28 13:15] LABS: TROPONIN I 0.06 ng/mL
[2016-10-28 13:45] LABS: ADD MANUAL DIFF? NO
[2016-10-28 13:47] LABS: BASO # 0.02 K/mm3 (0.0-2.0); BASO % 0.3 % (0.0-3.0); EOS # 0.1 (0.0-0.7); EOS % 1.4 % (1.5-5.0); GRAN # 6.42 (1.4-6.5); GRAN % 82.1 % (50.0-68.0); HEMATOCRIT 29.6 % (42.0-52.0); LYMPH # 0.6 (1.2-3.4); MEAN CELL VOLUME 103.5 fL (80.0-105.0); MEAN CORPUSCULAR HEMOGLOBIN 33.9 pg (25.0-35.0); MEAN CORPUSCULAR HGB CONC 32.8 g/dl (31.0-37.0); MEAN PLATELET VOLUME 9.7 fl (7.0-11.0); MONO # 0.7 (0.1-0.6); MONO % 9.2 % (1.0-6.0); PLATELET COUNT 178 10^3/uL (120.0-450.0); WHITE BLOOD COUNT 7.8 10^3/ul (4.5-11.0)
[2016-10-28] MEDS ORDERED: Bisacodyl 5mg EC Tab PO ONE (13:50)
[2016-10-28] MEDS: Enoxaparin 40 mg Syringe SC SCH (13:52)
[2016-10-28 13:56] LABS: INR 1.07 (0.93-1.08); PARTIAL THROMBOPLASTIN TIME 27.9 Seconds (23.7-30.8)
--- NOTE | 2016-10-28 13:56 | RAD ---
HISTORY: pain COMPARISON: 10/27/2016 FINDINGS: LUNGS: There is an improving infiltrate at the right lung base. No significant change in subcutaneous emphysema PLEURA: No significant pleural effusion identified, no pneumothorax apparent. CARDIOVASCULAR: Normal. OSSEOUS STRUCTURES: No significant abnormalities. VISUALIZED UPPER ABDOMEN: Normal. OTHER FINDINGS: None. IMPRESSION: Improving infiltrate at right lung base.
[2016-10-28 14:14] LABS: ALB/GLOB RATIO 1.1 (1.1-1.8); ALKALINE PHOSPHATASE 160 U/L (38-133); ALT/SGPT 81 U/L (7-56); AST/SGOT 182 U/L (15-59); BLOOD UREA NITROGEN 16 mg/dL (7-21); CALCIUM 8.7 mg/dL (8.4-10.5); CARBON DIOXIDE 26 mmol/L (21-33); CHLORIDE 95 mmol/L (98-107); GFR AFRICAN-AMERICAN > 60; GLUCOSE,RANDOM 100 mg/dL (70-110); MAGNESIUM 1.9 mg/dL (1.7-2.2); PHOSPHOROUS 2.7 mg/dL (2.5-4.5); POTASSIUM 4.5 mmol/L (3.6-5.0); SODIUM 132 mmol/L (132-148); TOTAL PROTEIN 6.8 g/dL (5.8-8.3)
[2016-10-28] MEDS: Meropenem 1g/NS 100mL IVPB 100 ML IVPB SCH ×2 (15:00→22:30)
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
[2016-10-28 16:02] LABS: URINE BILIRUBIN NEGATIVE (NEGATIVE); URINE BLOOD NEGATIVE (NEGATIVE); URINE GLUCOSE (UA) NEGATIVE (NEGATIVE); URINE KETONE NEGATIVE (NEGATIVE); URINE LEUKOCYTE ESTERASE NEGATIVE Leu/uL (NEGATIVE); URINE PROTEIN TRACE mg/dL (<30 mg/dL); URINE UROBILINOGEN 0.2 E.U./dL (<1 E.U./dL)
[2016-10-28 16:03] LABS: URINE APPEARANCE CLEAR (CLEAR); URINE COLOR YELLOW (YELLOW)
[2016-10-28 17:38] LABS: URINE BACTERIA MANY (NEG); URINE EPITHELIAL CELLS 0 - 2 /hpf (0-5); URINE RBC 0 - 2 /hpf (0-2); URINE WBC 0 - 2 /hpf (0-6)
[2016-10-28 17:39] LABS: URINE AMORPHOUS SEDIMENT MODERATE
[2016-10-28] MEDS ORDERED: Piperacillin/Tazobact 3.375 gm 100 ML IVPB SCH (18:00)
[2016-10-28] MEDS: Sodium Chloride 0.9% 1,000 ML IV SCH (18:04)
[2016-10-28 22:00] LABS: TROPONIN I 0.06 ng/mL
[2016-10-29] MEDS: Vancomycin 1gm in NS 250ml 250 ML IVPB SCH ×2 (00:20→14:01)
[2016-10-29] MEDS: Albuterol-Ipratrop 3 mg / 0.5 (3 ml) UD IH SCH ×4 (01:24→21:06)
[2016-10-29] MEDS: Meropenem 1g/NS 100mL IVPB 100 ML IVPB SCH ×3 (06:31→21:29)
[2016-10-29] MEDS: Sodium Chloride 0.9% 1,000 ML IV SCH ×3 (06:32→19:50)
[2016-10-29 07:29] LABS: ADD MANUAL DIFF? NO
[2016-10-29 07:37] LABS: BASO # 0.01 K/mm3 (0.0-2.0); BASO % 0.2 % (0.0-3.0); EOS # 0.1 (0.0-0.7); EOS % 1.7 % (1.5-5.0); GRAN # 4.56 (1.4-6.5); HEMATOCRIT 26.8 % (42.0-52.0); LYMPH # 0.8 (1.2-3.4); LYMPH % 12.7 % (22.0-35.0); MEAN CELL VOLUME 101.1 fL (80.0-105.0); MEAN CORPUSCULAR HEMOGLOBIN 33.6 pg (25.0-35.0); MEAN CORPUSCULAR HGB CONC 33.2 g/dl (31.0-37.0); MEAN PLATELET VOLUME 9.3 fl (7.0-11.0); MONO # 0.5 (0.1-0.6); MONO % 8.4 % (1.0-6.0); PLATELET COUNT 194 10^3/uL (120.0-450.0); RED CELL DISTRIBUTION WIDTH 14.6 % (11.5-14.5); WHITE BLOOD COUNT 5.9 10^3/ul (4.5-11.0)
[2016-10-29 07:58] LABS: ALKALINE PHOSPHATASE 137 U/L (38-133); ALT/SGPT 76 U/L (7-56); AST/SGOT 98 U/L (15-59); BILIRUBIN,TOTAL 0.9 mg/dL (0.2-1.3); BLOOD UREA NITROGEN 10 mg/dL (7-21); CALCIUM 8.4 mg/dL (8.4-10.5); CARBON DIOXIDE 28 mmol/L (21-33); CHLORIDE 97 mmol/L (98-107); GFR AFRICAN-AMERICAN > 60; GLUCOSE,RANDOM 87 mg/dL (70-110); POTASSIUM 4.1 mmol/L (3.6-5.0); SODIUM 134 mmol/L (132-148); TOTAL PROTEIN 6.6 g/dL (5.8-8.3)
[2016-10-29 08:07] LABS: TROPONIN I 0.05 ng/mL
--- NOTE | 2016-10-29 09:43 | CP.PCM.PN ---
Subjective - Date & Time of Evaluation Date of Evaluation: 10/29/16 Time of Evaluation: 09:41 - Subjective Subjective: SURGERY NOTE FOR DR. SOTELO 61M seen and examined at bedside. Patient resting comfortably, no respiratory distress, currently in restraints due to agitation. Objective - Vital Signs/Intake and Output Vital Signs (last 24 hours): Temp Pulse Resp BP Pulse Ox 98.2 F 94 H 20 102/60 99 10/29/16 06:00 10/29/16 06:00 10/29/16 06:00 10/29/16 06:00 10/29/16 06:00 Intake and Output: 10/29/16 10/29/16 06:59 18:59 Intake Total 1440 Output Total 1250 Balance 190 - Medications Medications: Current Medications Acetaminophen (Tylenol 325mg Tab) 650 mg PO Q6H PRN PRN Reason: Pain, Mild (1-3) Last Admin: 10/28/16 13:00 Dose: 650 mg Albuterol/Ipratropium (Duoneb 3 Mg/0.5 Mg (3 Ml) Ud) 3 ml IH Q2H PRN PRN Reason: Shortness of Breath Last Admin: 10/28/16 12:09 Dose: 3 ml Albuterol/Ipratropium (Duoneb 3 Mg/0.5 Mg (3 Ml) Ud) 3 ml IH [id number] [facility] Last Admin: 10/29/16 07:53 Dose: 3 ml Aspirin (Aspirin Chewable) 81 mg PO DAILY [facility] Last Admin: 10/28/16 10:00 Dose: 81 mg Atorvastatin Calcium (Lipitor) 10 mg PO DIN [facility] Last Admin: 10/28/16 17:32 Dose: 10 mg Carvedilol (Coreg) 3.125 mg PO BID [facility] Last Admin: 10/28/16 17:31 Dose: 3.125 mg Chlordiazepoxide (Librium) 25 mg PO Q12 [facility] PRN Reason: Protocol Last Admin: 10/28/16 22:30 Dose: 25 mg Enoxaparin Sodium (Lovenox) 40 mg SC DAILY [facility] PRN Reason: Protocol Last Admin: 10/28/16 13:52 Dose: 40 mg Folic Acid (Folic Acid) 1 mg PO DAILY [facility] Last Admin: 10/28/16 10:00 Dose: 1 mg Vancomycin HCl (Vancomycin 1gm) 250 mls @ 167 mls/hr IVPB Q12H [facility] PRN Reason: Protocol Last Admin: 10/29/16 00:20 Dose: 167 mls/hr Sodium Chloride (Sodium Chloride 0.9%) 1,000 mls @ 100 mls/hr IV .Q10H [facility] Last Admin: 10/29/16 06:32 Dose: 100 mls/hr Meropenem 1g/NS 100mL IVPB (Meropenem 1g/Ns 100ml Ivpb) 100 mls @ 100 mls/hr IVPB Q8 [facility] PRN Reason: Protocol Stop: 11/04/16 14:01 Last Admin: 10/29/16 06:31 Dose: 100 mls/hr Ibuprofen (Motrin Tab) 400 mg PO Q12 PRN PRN Reason: Fever >100.4 F Isosorbide Mononitrate (Imdur) 30 mg PO DAILY [facility] Last Admin: 10/28/16 16:09 Dose: 30 mg Lorazepam (Ativan) 1 mg IVP Q4H PRN; Protocol PRN Reason: Agitation Last Admin: 10/29/16 02:35 Dose: 1 mg Montelukast Sodium (Singulair) 10 mg PO HS [facility] Last Admin: 10/28/16 22:30 Dose: 10 mg Morphine Sulfate (Morphine) 2 mg IVP Q4H PRN PRN Reason: Pain, severe (8-10) Last Admin: 10/28/16 12:12 Dose: 2 mg Multivitamins (Thera Tab) 1 tab PO DAILY [facility] Last Admin: 10/28/16 10:00 Dose: 1 tab Ondansetron HCl (Zofran Inj) 4 mg IVP Q6H PRN PRN Reason: Nausea/Vomiting Oxycodone/Acetaminophen (Percocet 5/325 Mg Tab) 1 tab PO Q4H PRN PRN Reason: Pain, moderate (4-7) Stop: 10/29/16 13:04 Last Admin: 10/28/16 17:31 Dose: 1 tab Pantoprazole Sodium (Protonix Ec Tab) 40 mg PO DAILY [facility] Last Admin: 10/28/16 10:00 Dose: 40 mg Thiamine HCl (Vitamin B1 Tab) 100 mg PO DAILY [facility] Last Admin: 10/28/16 10:00 Dose: 100 mg - Labs Labs: 10/29/16 07:00 10/29/16 07:00 PT 11.6 Seconds (9.9-11.8) 10/28/16 13:44 INR 1.07 (0.93-1.08) 10/28/16 13:44 APTT 27.9 Seconds (23.7-30.8) 10/28/16 13:44 - Constitutional Appears: Non-toxic, No Acute Distress - Head Exam Additional comments: right eyebrow laceration- repaired with stitches - Respiratory Exam Respiratory Exam: Clear to Ausculation Bilateral, NORMAL BREATHING PATTERN Additional comments: pain on the left middle ribs laterally where fractures occurred - Cardiovascular Exam Cardiovascular Exam: +S1, +S2 - GI/Abdominal Exam GI & Abdominal Exam: Soft. absent: Distended, Firm, Guarding, Rigid, Tenderness , Rebound - Neurological Exam Neurological Exam: Alert, Awake Assessment and Plan - Assessment and Plan (Free Text) Assessment: 61M with hydropneumothorax s/p chest tube placement POD#6, s/p chest tube removal POD3 Plan: - continue medical management - Pain management PRN Further recs discuss with Dr. Gopi Alvarez, PGY1
[2016-10-29] MEDS: Multivitamin Therapeutic Tab PO SCH ×2 (10:06→11:26)
[2016-10-29] MEDS: Enoxaparin 40 mg Syringe SC SCH (10:06)
[2016-10-29] MEDS: Pantoprazole 40 mg EC Tab PO SCH ×2 (10:06→11:26)
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
--- NOTE | 2016-10-29 14:58 | RAD ---
HISTORY: cough COMPARISON: 10/28/2016 FINDINGS: LUNGS: Minimal bibasilar infiltrates unchanged. Slight improvement in subcutaneous emphysema PLEURA: No significant pleural effusion identified, no pneumothorax apparent. CARDIOVASCULAR: Normal. OSSEOUS STRUCTURES: No significant abnormalities. VISUALIZED UPPER ABDOMEN: Normal. OTHER FINDINGS: None. IMPRESSION: Minimal bibasilar infiltrates unchanged. Slight improvement in subcutaneous emphysema
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
--- NOTE | 2016-10-29 22:51 | PN ---
DATE: 10/29/2016 The patient seen earlier this morning and patient did well. No fevers and fevers in a downward trend improving. PHYSICAL EXAMINATION: VITAL SIGNS: Temperature 97, blood pressure is 120/70, respiratory rate of 18, heart rate of 100. HEENT: Unremarkable. NECK: Supple. LUNGS: Decreased breath sounds. HEART: Normal S1, S2. ABDOMEN: Soft, nontender. LABORATORY DATA: Reveals a white count of 5.9, hemoglobin of 8. Chemistries reveal BUN of 10, creat inine 0.7, procalcitonin 0.6. Urinalysis is noted. Microbiology reveals the patient has blood cultu res are no growth. The urine culture from 10/23 is no growth. The repeat urine culture from 10/28 is pe nding. Review of the orders reveals the patient to be on meropenem and vancomycin, procalcitonin of 0.86. C hest x-ray from today: Minimal bibasilar infiltrate, unchanged. ASSESSMENT AND PLAN: This is a 61-year-old male seen earlier today with sepsis secondary to right lo wer lobe healthcare-associated pneumonia with possible gram-positive cocci, possible gram-negative ro d and elevated Procalcitonin in a patient with chronic obstructive pulmonary disease, negative blood cultures. Currently on vancomycin, meropenem and appears to be improving. We will follow with you a nd check on the final culture results. Isaak Carbajal MD cc: 350 TT: 10/29/2016 22:50:07 Confirmation # [id number] Dictation # [id number] krishna
[2016-10-30] MEDS: Vancomycin 1gm in NS 250ml 250 ML IVPB SCH ×2 (01:14→12:59)
[2016-10-30] MEDS: Albuterol-Ipratrop 3 mg / 0.5 (3 ml) UD IH SCH ×4 (02:21→20:28)
[2016-10-30] MEDS: Meropenem 1g/NS 100mL IVPB 100 ML IVPB SCH ×3 (05:13→21:22)
[2016-10-30] MEDS: Multivitamin Therapeutic Tab PO SCH (09:03)
[2016-10-30] MEDS: Pantoprazole 40 mg EC Tab PO SCH (09:03)
[2016-10-30 09:06] LABS: ADD MANUAL DIFF? NO
[2016-10-30 09:11] LABS: BASO # 0.01 K/mm3 (0.0-2.0); BASO % 0.2 % (0.0-3.0); EOS # 0.2 (0.0-0.7); EOS % 4.5 % (1.5-5.0); GRAN # 3.28 (1.4-6.5); GRAN % 64.6 % (50.0-68.0); HEMATOCRIT 28.6 % (42.0-52.0); LYMPH # 1.1 (1.2-3.4); LYMPH % 20.9 % (22.0-35.0); MEAN CELL VOLUME 100.4 fL (80.0-105.0); MEAN CORPUSCULAR HGB CONC 33.9 g/dl (31.0-37.0); MEAN PLATELET VOLUME 9.3 fl (7.0-11.0); MONO # 0.5 (0.1-0.6); MONO % 9.8 % (1.0-6.0); PLATELET COUNT 255 10^3/uL (120.0-450.0); RED CELL DISTRIBUTION WIDTH 14.2 % (11.5-14.5); WHITE BLOOD COUNT 5.1 10^3/ul (4.5-11.0)
--- NOTE | 2016-10-30 09:27 | CARD ---
APPROVED REPORT EKG Measurement Heart [id number] <Conclusion> Sinus tachycardia Otherwise normal ECG
[2016-10-30 09:34] LABS: ALKALINE PHOSPHATASE 121 U/L (38-133); ALT/SGPT 79 U/L (7-56); AST/SGOT 100 U/L (15-59); BILIRUBIN,TOTAL 0.6 mg/dL (0.2-1.3); BLOOD UREA NITROGEN 9 mg/dL (7-21); CALCIUM 8.5 mg/dL (8.4-10.5); CARBON DIOXIDE 28 mmol/L (21-33); CHLORIDE 99 mmol/L (95-110); GFR AFRICAN-AMERICAN > 60; GLUCOSE,RANDOM 91 mg/dL (70-110); POTASSIUM 3.9 mmol/L (3.6-5.0); SODIUM 137 mmol/L (132-148); TOTAL PROTEIN 6.2 g/dL (5.8-8.3)
[2016-10-30 09:40] LABS: IRON 22 ug/dL (45-180)
[2016-10-30] MEDS: Enoxaparin 40 mg Syringe SC SCH (09:42)
[2016-10-30] MEDS: Sodium Chloride 0.9% 1,000 ML IV SCH (09:45)
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
--- NOTE | 2016-10-30 14:33 | PN ---
DATE: 10/30/2016 The patient is in bed in no acute distress. PHYSICAL EXAMINATION: VITAL SIGNS: Temperature is 97, blood pressure is 140/80, respiratory rate of 18. HEENT: Unremarkable. NECK: Supple. LUNGS: Have decreased breath sounds. HEART: Normal S1, S2. ABDOMEN: Soft, nontender. LABORATORY DATA: Reveals a white count of 5.1, hemoglobin of 9, platelets of 255. Chemistries revea l a BUN of 9, creatinine 0.6, procalcitonin 0.86. ASSESSMENT AND PLAN: This is a 61-year-old male seen earlier today in room 567, bed 1, with sepsis s econdary to right lower lobe healthcare-associated pneumonia, possible gram-positive cocci, possible gram-negative yohana, elevated procalcitonin in face of chronic obstructive lung disease, negative cultu res, currently on vancomycin and meropenem. Will repeat a procalcitonin and make further recommendat ions. Isaak Carbajal MD cc: 350 TT: 10/30/2016 14:32:22 Confirmation # [id number] Dictation # [id number] jackie
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
[2016-10-30] MEDS: Albuterol-Ipratrop 3 mg / 0.5 (3 ml) UD IH PRN ×2 (16:28→23:31)
[2016-10-30] MEDS: Morphine 2 mg/ml ISec IVP PRN (18:46)
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
[2016-10-30 23:03] LABS: FOLATE > 20.0 ng/mL
[2016-10-31] MEDS: Vancomycin 1gm in NS 250ml 250 ML IVPB SCH ×2 (01:16→14:20)
[2016-10-31] MEDS: Albuterol-Ipratrop 3 mg / 0.5 (3 ml) UD IH SCH ×4 (02:03→21:41)
[2016-10-31] MEDS: Meropenem 1g/NS 100mL IVPB 100 ML IVPB SCH ×3 (05:19→21:30)
[2016-10-31] MEDS: Morphine 2 mg/ml ISec IVP PRN ×2 (05:32→15:50)
[2016-10-31] MEDS: Multivitamin Therapeutic Tab PO SCH (11:03)
[2016-10-31] MEDS: Enoxaparin 40 mg Syringe SC SCH (11:05)
[2016-10-31] MEDS: Pantoprazole 40 mg EC Tab PO SCH (11:06)
--- NOTE | 2016-10-31 12:35 | CT ---
PROCEDURE: CT HEAD WITHOUT CONTRAST. HISTORY: AMS COMPARISON: 10/23/2016 TECHNIQUE: Axial computed tomography images were obtained through the head/brain without intravenous contrast. Radiation dose: Total exam DLP = 780 mGy-cm. This CT exam was performed using one or more of the following dose reduction techniques: Automated exposure control, adjustment of the mA and/or kV according to patient size, and/or use of iterative reconstruction technique. FINDINGS: HEMORRHAGE: No intracranial hemorrhage. BRAIN: No mass effect or edema. No atrophy or chronic microvascular ischemic changes. VENTRICLES: Unremarkable. No hydrocephalus. CALVARIUM: Unremarkable. PARANASAL SINUSES: Unremarkable as visualized. No significant inflammatory changes. MASTOID AIR CELLS: Unremarkable as visualized. No inflammatory changes. OTHER FINDINGS: None. IMPRESSION: No acute findings
--- NOTE | 2016-10-31 13:02 | RAD ---
HISTORY: SOB COMPARISON: 10/29/2016 FINDINGS: LUNGS: No change in minimal bibasilar infiltrates. Improvement in subcutaneous emphysema PLEURA: No significant pleural effusion identified, no pneumothorax apparent. CARDIOVASCULAR: Normal. OSSEOUS STRUCTURES: No significant abnormalities. VISUALIZED UPPER ABDOMEN: Normal. OTHER FINDINGS: None. IMPRESSION: No change in and minimal bibasilar infiltrates. Improving subcutaneous emphysema
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
--- NOTE | 2016-10-31 14:05 | CON ---
DATE: 10/31/2016 The patient is a 61-year-old male with a history of anxiety, depression and polysubstance a buse and dependence. Psychiatry is monitoring patient on the medical floor for delirium with notable confusion and agitation and restlessness. I met with patient at bedside and reviewed prior notes. The patient continues to be confused and it is very difficult to elicit a productive interview with ernesto degroot. Most of his responses are slurred and he does appear to be a little more confused today than yesterday. His eye contact is intermittent and his responses are not relevant to questioning. Thou ght process is incoherent at this time and patient does look completely disoriented and cannot verbal ize his needs. His insight and judgment are poor and his impulse control is unpredictable. VITAL SIGNS: Reviewed and as of 7:21 a.m., they were 97.6, 98, 164/78, 22 and 94. LABORATORIES: Reviewed. There are no new labs of this morning. IMPRESSION: As per Dr. Matute, patient does have a history of antisocial personality disorder a s well as a history of polysubstance abuse and dependence. He is presenting with multifactorial deli rium, which appears to be unchanged since yesterday. PLAN: We will continue with current treatment for patient's agitation, which is symptomatic treatmen t. The patient's medical situation must be addressed so that his delirium and thus his behavior impr oves as well as his mental status. Specifically, we will continue psychotropic medications of Ativan 2 mg IV q. 2 p.r.n., of which he received 2 mg on 10/30 and Ativan 0.5 mg IV q. 6 scheduled, of which he received 1 dose at 11:30 p.m. last night, as well as Seroquel 25 mg p.o. at bedtime. We will inc rease that dose to 50 mg at bedtime at this time, and Geodon 10 mg IM q. 8 p.r.n., which he received 1 dose at 5:30 this morning for restlessness and agitation. Psychiatry will continue to follow up wi th him and monitor his mental status and behavior and response to the medications. As usual, please minimize benzo use, which I have noted that nursing has been minimizing benzo use. Nick Manzanares MD cc: [id number] TT: 10/31/2016 14:04:50 Confirmation # [id number] Dictation # [id number]
--- NOTE | 2016-10-31 16:24 | PN ---
DATE: 10/31/2016 The patient is in bed in no acute distress. PHYSICAL EXAMINATION: VITAL SIGNS: Temperature is 97, blood pressure is 160/70, respiratory rate 22, heart rate of 98. HEENT: Unremarkable. NECK: Supple. LUNGS: Decreased breath sounds. HEART: Normal S1, S2. ABDOMEN: Soft, nontender. LABORATORY EXAMINATION: Reveals a white count of 5.1, hemoglobin of 9, platelets of 255. Chemistrie s reveal a BUN of 9, creatinine of 0.6, procalcitonin 0.73. Serology is noted. Microbiology reveals cultures to be negative. Review of orders reveals the patient to be on meropenem. ASSESSMENT AND PLAN: A 61-year-old male seen earlier today in 567, bed 1 with sepsis secondary to ri ght lower lobe healthcare-associated pneumonia, possible gram-positive cocci, possible gram-negative yohana. Currently on meropenem and vancomycin is still active. Currently on vancomycin and meropenem. The repeat procalcitonin is pending. We will follow closely with you. Isaak Carbajal MD cc: [phone] TT: 10/31/2016 16:24:15 Confirmation # [id number] Dictation # [id number] sn
[2016-11-01] MEDS: Vancomycin 1gm in NS 250ml 250 ML IVPB SCH ×2 (00:29→12:30)
[2016-11-01] MEDS: Albuterol-Ipratrop 3 mg / 0.5 (3 ml) UD IH SCH ×4 (02:06→21:54)
[2016-11-01] MEDS: Meropenem 1g/NS 100mL IVPB 100 ML IVPB SCH ×3 (05:06→21:15)
[2016-11-01] MEDS: Morphine 2 mg/ml ISec IVP PRN ×2 (05:06→12:16)
[2016-11-01] MEDS: Multivitamin Therapeutic Tab PO SCH (09:55)
[2016-11-01] MEDS: Enoxaparin 40 mg Syringe SC SCH (09:55)
[2016-11-01] MEDS: Pantoprazole 40 mg EC Tab PO SCH (09:56)
[2016-11-01 11:27] LABS: HEMATOCRIT 33.5 % (42.0-52.0); MEAN CELL VOLUME 100.9 fL (80.0-105.0); MEAN CORPUSCULAR HEMOGLOBIN 33.7 pg (25.0-35.0); MEAN CORPUSCULAR HGB CONC 33.4 g/dl (31.0-37.0); MEAN PLATELET VOLUME 9.2 fl (7.0-11.0); RED CELL DISTRIBUTION WIDTH 14.4 % (11.5-14.5)
[2016-11-01 11:37] LABS: ALKALINE PHOSPHATASE 116 U/L (38-133); ALT/SGPT 68 U/L (7-56); AST/SGOT 85 U/L (15-59); BILIRUBIN,TOTAL 0.6 mg/dL (0.2-1.3); BLOOD UREA NITROGEN 9 mg/dL (7-21); CARBON DIOXIDE 35 mmol/L (21-33); CHLORIDE 94 mmol/L (98-107); GFR AFRICAN-AMERICAN > 60; GLUCOSE,RANDOM 101 mg/dL (70-110); POTASSIUM 3.6 mmol/L (3.6-5.0); SODIUM 139 mmol/L (132-148)
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
--- NOTE | 2016-11-01 17:36 | PN ---
DATE: 11/01/2016 The patient is in bed in no acute distress, was seen earlier this morning in 567, bed 1. PHYSICAL EXAMINATION: VITAL SIGNS: The patient's temperature of 98, blood pressure is 117/60, respiratory rate of 16. HEENT: Unremarkable. NECK: Supple. LUNGS: Decreased breath sounds. HEART: Normal S1, S2. ABDOMEN: Soft. LABORATORY EXAMINATION: Reveals a white count of 5, hemoglobin of 11. Chemistries reveal a BUN of 9 , creatinine of 0.7. Procalcitonin 0.73. Urinalysis is noted and serology is noted. ASSESSMENT AND PLAN: A 61-year-old male with sepsis secondary to right lower lobe healthcare-associa torin pneumonia, possible gram-positive cocci, possible gram-negative yohana. On meropenem and vancomycin . Review of the orders reveals meropenem and vancomycin to be active and repeat procalcitonin 0.73. We will discontinue the vancomycin. Today is day #5 of meropenem. Isaak Carbajal MD cc: [phone] TT: 11/01/2016 17:35:14 Confirmation # [id number] Dictation # [id number] sn
[2016-11-02] MEDS: Albuterol-Ipratrop 3 mg / 0.5 (3 ml) UD IH SCH ×4 (01:28→19:51)
[2016-11-02] MEDS: Meropenem 1g/NS 100mL IVPB 100 ML IVPB SCH (06:02)
--- NOTE | 2016-11-02 10:59 | PN ---
DATE: 11/02/2016 The patient is in bed in no acute distress, nontoxic. PHYSICAL EXAMINATION: VITAL SIGNS: Temperature is 98, blood pressure is 130/80, respiratory rate of 18. HEENT: Unremarkable. NECK: Supple. LUNGS: Have decreased breath sounds. HEART: Normal S1, S2. ABDOMEN: Soft, nontender. LABORATORY EXAMINATION: Reveals a white count of 5, hemoglobin of 11 and platelets of 402. Chemistr ies reveal the BUN of 9, creatinine of 0.7. Urinalysis is noted. Serology is negative. Microbiolog y is reviewed. Review of the orders reveals the patient to be on meropenem. ASSESSMENT AND PLAN: A 61-year-old male with sepsis secondary to right lower lobe healthcare-associa torin pneumonia, possible gram-positive cocci, possible gram-negative yohana. Today, the patient is day # 6 of meropenem. We will discontinue the meropenem. The patient appears to have responded and comple te with p.o. Levaquin with a QTC of 387. That would be Levaquin at 500 mg once daily for 5 days. Isaak Carbajal MD cc: [phone] TT: 11/02/2016 10:59:29 Confirmation # [id number] Dictation # [id number] tn
[2016-11-02] MEDS: Enoxaparin 40 mg Syringe SC SCH (11:13)
[2016-11-02] MEDS: Pantoprazole 40 mg EC Tab PO SCH ×2 (11:20→11:33)
[2016-11-02] MEDS: Multivitamin Therapeutic Tab PO SCH ×2 (11:21→11:34)
[2016-11-02] MEDS: Albuterol-Ipratrop 3 mg / 0.5 (3 ml) UD IH PRN (12:27)
[2016-11-02] MEDS: Morphine 2 mg/ml ISec IVP PRN (12:58)
--- NOTE | 2016-11-02 13:00 | CON ---
DATE: 11/02/2016 The patient is a 61-year-old male with a history of anxiety and depression and polysubstanc e abuse as well as dependence. Psychiatry is monitoring patient on the medical floor for mental stat us and behavioral changes associated with delirium. I reviewed prior notes and met with patient at [facility]. This is my 2nd followup with patient. The patient does not recall me from our previous meet ing. The patient is aware that he is in a hospital. He is aware about the month, cannot verbally in dicate whether he is aware which year it is right now. He is more responsive than at our previous co nversation, although he does mumble, he is a little bit more coherent and he does appear to be a hilda le bit more focused and his comprehension is improving. Nonetheless, patient's behavior has been diff icult to manage on the unit due to restlessness and he does continue to be quite confused which is co nsistent with his current diagnosis of multifactorial delirium. The patient does not appear to be macdonald llucinating or responding to internal stimuli at this time, and he does not appear to be overtly para noid. Nonetheless, he is unpredictable due to his current confused mental status. VITAL SIGNS AND LABORATORIES: Reviewed by this provider. CURRENT PSYCHIATRIC MEDICATIONS: Include Ativan 1 mg IV push q. 2 hours p.r.n., which patient receiv ed 3 doses this morning thus far at 6:27 a.m. and 11:23, as well as 1:15 a.m., Seroquel 25 mg at bedt jeff, which was just increased to 75 mg at bedtime by this provider this morning, as well as Geodon 10 mg IM q. 8 p.r.n., which patient received 1 dose on 11/01/2016. IMPRESSION: Multifactorial delirium with some improvement, history of antisocial personality disorde r, as well as drug dependency. RECOMMENDATIONS: We will continue with Ativan 1 mg IV; however, will change the frequency to q. 6 p. r.n. as we would like to continue with Ativan 1 mg, however, it will be at a q. 4 p.r.n. frequency as we want to reduce dependency on benzodiazepines for behavioral control, as this can exacerbate patie nt's disinhibition and worsen confusion. We will also increase Seroquel 75 mg p.o. at bedtime and co ntinue with Geodon 10 mg IM q. 8 p.r.n. This provider will follow up with patient every other day to determine progress regarding his behavior and mental status. Please reconsult p.r.n. if there are a ny acute changes in the patient's status. Nick Manzanares MD cc: [id number] TT: 11/02/2016 12:58:56 Confirmation # [id number] Dictation # [id number] rn
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
[2016-11-02] MEDS: PETROLATUM TOP SCH (14:24)
[2016-11-02] MEDS: MINERAL OIL TOP SCH (14:24)
[2016-11-03] MEDS: Albuterol-Ipratrop 3 mg / 0.5 (3 ml) UD IH SCH ×4 (01:22→19:33)
[2016-11-03] MEDS: Morphine 2 mg/ml ISec IVP PRN ×4 (05:26→20:28)
[2016-11-03] MEDS: Enoxaparin 40 mg Syringe SC SCH (11:15)
[2016-11-03] MEDS: levoFLOXacin 500 MG TAB PO SCH (11:16)
[2016-11-03] MEDS: Multivitamin Therapeutic Tab PO SCH (11:16)
[2016-11-03] MEDS: Pantoprazole 40 mg EC Tab PO SCH (11:16)
[2016-11-03] MEDS ORDERED: Naproxen 550 mg Tab PO ONE (14:20)
[2016-11-03] MEDS: MINERAL OIL TOP SCH (15:10)
[2016-11-03] MEDS: PETROLATUM TOP SCH (15:10)
--- NOTE | 2016-11-03 16:42 | RAD ---
PROCEDURE: Left shoulder dated 11/03/2016. Limited portable single frontal view of the left shoulder performed. HISTORY: recent injury COMPARISON: No prior study however correlation made with chest radiograph 10/31/2016 which also imaged the left shoulder FINDINGS: BONES: No evidence of acute displaced fracture nor dislocation. Left humeral head is appropriately located with respect to the going weight. Osseous structures intact. JOINTS: Are mild degenerative changes of the left acromioclavicular and glenohumeral joints. SOFT TISSUES: Improved subcutaneous emphysema in the left upper chest wall. OTHER FINDINGS: None. IMPRESSION: Limited study as described. Mild DJD. On improved subcutaneous emphysema left upper chest wall in the
--- NOTE | 2016-11-03 16:44 | PN ---
DATE: 11/03/2016 The patient is in bed in no acute distress, was seen earlier this morning in 567, bed 1. He is weak but no fevers and no chills. PHYSICAL EXAMINATION: VITAL SIGNS: Temperature is 98, blood pressure is on 132/70, respiratory rate of 16. HEENT: Unremarkable. NECK: Supple. LUNGS: Have decreased breath sounds. HEART: Normal S1, S2. ABDOMEN: Soft, nontender. LABORATORY DATA: Reveals the patient to have a white count of 5, hemoglobin 11, platelets of 402. C hemistries reveal the BUN of 9, creatinine of 0.7. Procalcitonin 0.73. Microbiology is noted. ASSESSMENT AND PLAN: This is a 61-year-old with sepsis secondary to right lower lobe healthcare-asso ciated pneumonia, possible gram-positive cocci, possible gram-negative yohana. The patient is now on p. o. Levaquin to complete 5 days. Case discussed with PMD earlier today. For possible discharge. Isaak Carbajal MD cc: [phone] TT: 11/03/2016 16:43:51 Confirmation # [id number] Dictation # [id number]
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
[2016-11-04] MEDS: Morphine 2 mg/ml ISec IVP PRN ×2 (00:05→11:12)
[2016-11-04] MEDS: Albuterol-Ipratrop 3 mg / 0.5 (3 ml) UD IH SCH ×3 (07:28→20:37)
[2016-11-04 09:15] LABS: ADD MANUAL DIFF? NO
[2016-11-04 09:26] LABS: BASO # 0.02 K/mm3 (0.0-2.0); BASO % 0.3 % (0.0-3.0); EOS # 0.3 (0.0-0.7); GRAN % 62.4 % (50.0-68.0); HEMATOCRIT 35.9 % (42.0-52.0); LYMPH # 1.5 (1.2-3.4); LYMPH % 24.6 % (22.0-35.0); MEAN CELL VOLUME 101.1 fL (80.0-105.0); MEAN CORPUSCULAR HEMOGLOBIN 34.1 pg (25.0-35.0); MEAN CORPUSCULAR HGB CONC 33.7 g/dl (31.0-37.0); MEAN PLATELET VOLUME 9.5 fl (7.0-11.0); MONO # 0.5 (0.1-0.6); MONO % 7.7 % (1.0-6.0); PLATELET COUNT 466 10^3/uL (120.0-450.0); RED CELL DISTRIBUTION WIDTH 14.6 % (11.5-14.5); WHITE BLOOD COUNT 6.3 10^3/ul (4.5-11.0)
[2016-11-04 09:42] LABS: ALKALINE PHOSPHATASE 132 U/L (38-133); ALT/SGPT 39 U/L (7-56); AST/SGOT 59 U/L (15-59); BILIRUBIN,TOTAL 0.8 mg/dL (0.2-1.3); BLOOD UREA NITROGEN 24 mg/dL (7-21); CALCIUM 9.5 mg/dL (8.4-10.5); CARBON DIOXIDE 28 mmol/L (21-33); CHLORIDE 97 mmol/L (95-110); GFR AFRICAN-AMERICAN > 60; GLUCOSE,RANDOM 108 mg/dL (70-110); MAGNESIUM 2.3 mg/dL (1.7-2.2); PHOSPHOROUS 3.7 mg/dL (2.5-4.5); POTASSIUM 4.7 mmol/L (3.6-5.0); SODIUM 138 mmol/L (132-148); TOTAL PROTEIN 7.6 g/dL (5.8-8.3)
[2016-11-04] MEDS: MINERAL OIL TOP SCH (10:00)
[2016-11-04] MEDS: PETROLATUM TOP SCH (10:00)
--- NOTE | 2016-11-04 10:57 | CON ---
DATE: 11/04/2016 The patient is a 61-year-old male with a history of anxiety, depression, polysubstance abus e as well as dependence. Psychiatry is monitoring patient on the medical floor due to mental status and behavioral changes associated with delirium. I reviewed prior notes and met with patient at [facility]. This is my third followup with patient while he has been on the medical floor and he still does not recall me from our prior sessions. The patient continues to be delirious and confused and has b een restless and uncooperative, at times combative with staff members per review of nursing notes. N onetheless, he does appear to be a little bit more oriented during my meeting with him this morning. He is aware that it is 10/2016 and that he is in a hospital. He indicates that he is not sleeping ve ry well at all. Denies depression. Denies suicidal thoughts or homicidal thoughts. He does report that he is hallucinating sometimes. Affect is irritable and patient is annoyed by my questioning. H e is not observed to be responding to internal stimuli and delusions were not elicited this morning. His insight and judgment is still considered to be poor. Vital signs and labs were reviewed by this provider. MEDICATIONS: Relevant psychiatric medications include Ativan 0.5 mg IV q. 6 p.r.n., Seroquel 75 mg a t bedtime scheduled, and Geodon 10 mg IM q. 8 p.r.n. IMPRESSION: Multifactorial delirium with slow improvement, history of antisocial personality disorde r as well as drug dependency. RECOMMENDATIONS: 1. We will continue with Ativan and Geodon p.r.n. for patient's agitation. 2. Will increase Seroquel to 25 mg a.m. and 100 mg at bedtime standing for patient's reported halluc inations as well as to improve his impulse control and combativeness on the unit. 3. Psychiatry will continue to follow up with patient every other day to determine progress regardin g his behavior and mental status. Please feel free to reconsult more frequently p.r.n. if there are any acute changes in patient's status. Nick Manzanares MD cc: [id number] TT: 11/04/2016 10:56:59 Confirmation # [id number] Dictation # [id number]
[2016-11-04] MEDS: Enoxaparin 40 mg Syringe SC SCH (11:12)
[2016-11-04] MEDS: levoFLOXacin 500 MG TAB PO SCH (11:14)
[2016-11-04] MEDS: Multivitamin Therapeutic Tab PO SCH (11:14)
[2016-11-04] MEDS: Pantoprazole 40 mg EC Tab PO SCH (11:15)
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
--- NOTE | 2016-11-04 13:41 | RAD ---
HISTORY: eval infiltrate COMPARISON: . Comparison chest 10/31/[address] scan chest 10/23/2016. FINDINGS: LUNGS: Mild left basilar atelectasis and or infiltrate with small effusion. No evidence of pneumothorax. Small amount of residual subcutaneous emphysema over the lower left eliz thorax/upper abdomen PLEURA: As above CARDIOVASCULAR: Heart size remains mildly enlarged. Sternotomy wires and CABG clips unchanged OSSEOUS STRUCTURES: No significant abnormalities. VISUALIZED UPPER ABDOMEN: Normal. OTHER FINDINGS: None. IMPRESSION: Mild residual left basilar atelectasis and or infiltrate with small effusion. No obvious residual left-sided pneumothorax. Small amount of subcutaneous emphysema left lower chest wall as above
--- NOTE | 2016-11-04 17:40 | PN ---
DATE: 11/04/2016 The patient is in bed in no acute distress, nontoxic. PHYSICAL EXAMINATION: VITAL SIGNS: Temperature is 98, blood pressure is 102/60, respiratory rate of 16. HEENT: Unremarkable. NECK: Supple. LUNGS: Have decreased breath sounds. HEART: Normal S1, S2. ABDOMEN: Soft. LABORATORY DATA: Reveals a white count of 6.3, hemoglobin of 12, platelets of 466. BUN of 24, creat inine 0.8, procalcitonin 0.73. Urinalysis is noted. The chest x-ray is noted. ASSESSMENT AND PLAN: This is a 61-year-old male with sepsis, right lower lobe healthcare-associated pneumonia, possible gram-positive cocci, possible gram-negative yohana, has completed therapy, now on p. o. Levaquin, completing therapy. Dr. Sara Wolfe's note is reviewed. Will follow closely with you. Isaak Carbajal MD cc: [id number] TT: 11/04/2016 17:39:43 Confirmation # [id number] Dictation # [id number] carley
[2016-11-05] MEDS: Albuterol-Ipratrop 3 mg / 0.5 (3 ml) UD IH SCH ×4 (01:50→21:30)
[2016-11-05] MEDS: Enoxaparin 40 mg Syringe SC SCH (11:07)
[2016-11-05] MEDS: MINERAL OIL TOP SCH (11:07)
[2016-11-05] MEDS: Pantoprazole 40 mg EC Tab PO SCH (11:07)
[2016-11-05] MEDS: levoFLOXacin 500 MG TAB PO SCH (11:07)
[2016-11-05] MEDS: PETROLATUM TOP SCH (11:07)
[2016-11-05] MEDS: Multivitamin Therapeutic Tab PO SCH (11:08)
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
--- NOTE | 2016-11-05 16:39 | CP.PCM.PN ---
Subjective - Date & Time of Evaluation Date of Evaluation: 11/05/16 Time of Evaluation: 10:05 - Subjective Subjective: Comfortable in bed, not in distress, no fevers overnight. Objective - Vital Signs/Intake and Output Vital Signs (last 24 hours): Temp Pulse Resp BP Pulse Ox 98 F 97 H 20 99/62 L 98 11/05/16 15:48 11/05/16 15:48 11/05/16 15:48 11/05/16 15:48 11/05/16 15:48 Intake and Output: 11/05/16 11/05/16 06:59 18:59 Intake Total 240 240 Output Total 200 Balance 40 240 - Medications Medications: Current Medications Acetaminophen (Tylenol 325mg Tab) 650 mg PO Q6H PRN PRN Reason: Pain, Mild (1-3) Last Admin: 10/28/16 13:00 Dose: 650 mg Albuterol/Ipratropium (Duoneb 3 Mg/0.5 Mg (3 Ml) Ud) 3 ml IH Q2H PRN PRN Reason: Shortness of Breath Last Admin: 11/02/16 12:27 Dose: 3 ml Albuterol/Ipratropium (Duoneb 3 Mg/0.5 Mg (3 Ml) Ud) 3 ml IH [id number] [facility] Last Admin: 11/05/16 13:40 Dose: Not Given Aspirin (Aspirin Chewable) 81 mg PO DAILY [facility] Last Admin: 11/05/16 11:07 Dose: Not Given Atorvastatin Calcium (Lipitor) 10 mg PO DIN [facility] Last Admin: 11/04/16 16:04 Dose: 10 mg Carvedilol (Coreg) 3.125 mg PO BID [facility] Last Admin: 11/05/16 11:07 Dose: Not Given Emollient Ointment (Hydrophor Oint) 0 gm TOP DAILY [facility] Last Admin: 11/05/16 11:07 Dose: Not Given Folic Acid (Folic Acid) 1 mg PO DAILY [facility] Last Admin: 11/05/16 11:07 Dose: Not Given Ibuprofen (Motrin Tab) 400 mg PO Q12 PRN PRN Reason: Fever >100.4 F Last Admin: 11/05/16 13:06 Dose: 400 mg Isosorbide Mononitrate (Imdur) 30 mg PO DAILY [facility] Last Admin: 11/05/16 11:07 Dose: Not Given Levofloxacin (Levaquin) 500 mg PO DAILY [facility] Last Admin: 11/05/16 11:07 Dose: Not Given Lorazepam (Ativan) 0.5 mg IVP Q6H PRN; Protocol PRN Reason: Anxiety Last Admin: 11/04/16 15:50 Dose: 0.5 mg Montelukast Sodium (Singulair) 10 mg PO HS [facility] Last Admin: 11/05/16 03:57 Dose: 10 mg Multivitamins (Thera Tab) 1 tab PO DAILY [facility] Last Admin: 11/05/16 11:08 Dose: Not Given Ondansetron HCl (Zofran Inj) 4 mg IVP Q6H PRN PRN Reason: Nausea/Vomiting Pantoprazole Sodium (Protonix Ec Tab) 40 mg PO DAILY [facility] Last Admin: 11/05/16 11:07 Dose: Not Given Quetiapine Fumarate (Seroquel) 100 mg PO HS [facility] PRN Reason: Protocol Last Admin: 11/04/16 21:05 Dose: 100 mg Quetiapine Fumarate (Seroquel) 25 mg PO QPM [facility] PRN Reason: Protocol Quetiapine Fumarate (Seroquel) 25 mg PO QAM [facility] PRN Reason: Protocol Thiamine HCl (Vitamin B1 Tab) 100 mg PO BID [facility] Last Admin: 11/05/16 11:08 Dose: Not Given Ziprasidone (Geodon Inj) 10 mg IM Q8H PRN; Protocol PRN Reason: agitation and psychosis Last Admin: 11/05/16 08:49 Dose: 10 mg - Labs Labs: 11/04/16 09:08 11/04/16 09:08 PT 11.6 Seconds (9.9-11.8) 10/28/16 13:44 INR 1.07 (0.93-1.08) 10/28/16 13:44 APTT 27.9 Seconds (23.7-30.8) 10/28/16 13:44 - Constitutional Appears: Non-toxic, No Acute Distress - Head Exam Head Exam: NORMAL INSPECTION - ENT Exam ENT Exam: Mucous Membranes Moist - Neck Exam Neck Exam: absent: Lymphadenopathy, Meningismus - Respiratory Exam Respiratory Exam: Decreased Breath Sounds - Cardiovascular Exam Cardiovascular Exam: +S1, +S2 - GI/Abdominal Exam GI & Abdominal Exam: Soft. absent: Tenderness Assessment and Plan - Assessment and Plan (Free Text) Plan: Assessment sepsis secondary to right lower lobe healthcare-associated pneumonia with possible gram positive cocci and/or gram negative bacilli, clinically improving S/P left hydropneumothorax S/P chest tube placement and removal COPD alcohol abuse HTN depression CAD S/P PCI S/P CABG history of cholelithiasis S/P cholecystectomy S/P right carotid endarterectomy Plan continue LEvaquin for another 3 more days Will monitor clinically
[2016-11-06] MEDS: Albuterol-Ipratrop 3 mg / 0.5 (3 ml) UD IH SCH ×4 (03:00→19:35)
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
[2016-11-06] MEDS: MINERAL OIL TOP SCH (14:46)
[2016-11-06] MEDS: PETROLATUM TOP SCH (14:46)
[2016-11-06] MEDS: Multivitamin Therapeutic Tab PO SCH (14:51)
[2016-11-06] MEDS: Pantoprazole 40 mg EC Tab PO SCH (14:52)
[2016-11-06] MEDS: levoFLOXacin 500 MG TAB PO SCH (14:52)
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
[2016-11-07] MEDS: Albuterol-Ipratrop 3 mg / 0.5 (3 ml) UD IH SCH ×3 (01:16→13:38)
[2016-11-07 08:08] LABS: ADD MANUAL DIFF? NO
[2016-11-07 08:15] LABS: BASO # 0.04 K/mm3 (0.0-2.0); BASO % 0.6 % (0.0-3.0); EOS # 0.5 (0.0-0.7); GRAN # 3.95 (1.4-6.5); GRAN % 59.7 % (50.0-68.0); HEMATOCRIT 36.5 % (42.0-52.0); LYMPH # 1.6 (1.2-3.4); MEAN CELL VOLUME 101.7 fL (80.0-105.0); MEAN CORPUSCULAR HEMOGLOBIN 33.7 pg (25.0-35.0); MEAN CORPUSCULAR HGB CONC 33.2 g/dl (31.0-37.0); MEAN PLATELET VOLUME 9.7 fl (7.0-11.0); MONO # 0.5 (0.1-0.6); MONO % 7.7 % (1.0-6.0); PLATELET COUNT 505 10^3/uL (120.0-450.0); RED CELL DISTRIBUTION WIDTH 14.5 % (11.5-14.5); WHITE BLOOD COUNT 6.6 10^3/ul (4.5-11.0)
[2016-11-07 08:35] LABS: ALKALINE PHOSPHATASE 138 U/L (38-133); ALT/SGPT 33 U/L (7-56); AST/SGOT 55 U/L (15-59); BILIRUBIN,TOTAL 0.6 mg/dL (0.2-1.3); BLOOD UREA NITROGEN 21 mg/dL (7-21); CALCIUM 9.6 mg/dL (8.4-10.5); CARBON DIOXIDE 33 mmol/L (21-33); CHLORIDE 99 mmol/L (95-110); GFR AFRICAN-AMERICAN > 60; GLUCOSE,RANDOM 119 mg/dL (70-110); POTASSIUM 4.5 mmol/L (3.6-5.0); SODIUM 139 mmol/L (132-148); TOTAL PROTEIN 7.7 g/dL (5.8-8.3)
[2016-11-07] MEDS: levoFLOXacin 500 MG TAB PO SCH (09:20)
[2016-11-07] MEDS: Multivitamin Therapeutic Tab PO SCH (09:20)
[2016-11-07] MEDS: Pantoprazole 40 mg EC Tab PO SCH (09:20)
[2016-11-07] MEDS: MINERAL OIL TOP SCH (09:24)
[2016-11-07] MEDS: PETROLATUM TOP SCH (09:24)
--- NOTE | 2016-11-07 12:09 | CON ---
DATE: 11/07/2016 HISTORY OF PRESENT ILLNESS: The patient is a 61-year-old male with a history of depression , anxiety, polysubstance dependency who is being monitored by psychiatry on the medical floor due to mental status with behavioral changes associated with delirium as well as background diagnosis of ant isocial personality disorder. I reviewed prior notes and met with patient at bedside. This is approximately my fifth followup with the patient while he has been on the medical floor. Today, he does not recall me from our prior ses sions at all, though he is oriented to the fact that he is at [facility] and the fact rosanna t it is 2016. He is calmer and less abrasive than our prior sessions. He is not swearing at m e and he is willing to answer a few of my questions; however, he still can self-escalate easily. The patient's responses are not always consistent and sometimes he does mumble, but will repeat himself when requested. He is a little bit more cooperative today in that regard. He denies depression, he is hopeful. He denies any suicidal thoughts regarding hallucinations. He had them just a few days a go and they were whispers. He denies any current hallucinations. Delusions were not elicited. The patient's focus varies and he still appears disengaged with my interview. Delusions were not elicite d, though this provider cannot rule them out. Insight and judgment is improving; however, is still c onsidered to be poor. VITAL SIGNS AND LABORATORIES: Reviewed by this provider. Relevant psychiatric medications include Seroquel 100 mg p.o. at bedtime, Seroquel 25 mg a.m. and p. m., as well as Geodon 20 mg IM q. 8 p.r.n. The patient received 1 administration yesterday and 2 on 11/05 and 2 on 11/04. ASSESSMENT: Hyperactive delirium persisting with some improvement in behavior and mental status, [facility] patient still appears to be confused. History of antisocial personality disorder as well as drug dependency. RECOMMENDATIONS: 1. Will continue with Geodon p.r.n. for patient's agitation. Nursing notes indicate the patie nt has not been cooperative and has required restraints in the last 24 hours. 2. Will continue with Seroquel 25 mg b.i.d. and 100 mg at bedtime for patient's disorganization and impulse control and combativeness on the unit. 3. We will continue to follow up with patient to determine progress regarding his mental status and behavior. There is no acute indication for changing standing medications at this time. He is improv ing and increasing the antipsychotic will not improve delirium. Please note that delirium may take w eeks to resolve after the initial medical insult is addressed. Nick Manzanares MD cc: [id number] TT: 11/07/2016 12:09:19 Confirmation # [id number] Dictation # [id number] jackie
--- NOTE | 2016-11-07 18:09 | CP.PCM.PN ---
Subjective - Date & Time of Evaluation Date of Evaluation: 11/07/16 Time of Evaluation: 09:35 - Subjective Subjective: Comfortable in bed, much improved breathing, no fevers. Objective - Vital Signs/Intake and Output Vital Signs (last 24 hours): Temp Pulse Resp BP Pulse Ox 97.6 F 100 H 20 120/74 96 11/07/16 16:00 11/07/16 16:00 11/07/16 16:00 11/07/16 17:43 11/07/16 16:00 Intake and Output: 11/07/16 11/07/16 06:59 18:59 Intake Total 360 Output Total 200 Balance 160 - Medications Medications: Current Medications Acetaminophen (Tylenol 325mg Tab) 650 mg PO Q6H PRN PRN Reason: Pain, Mild (1-3) Last Admin: 10/28/16 13:00 Dose: 650 mg Aspirin (Aspirin Chewable) 81 mg PO DAILY [facility] Last Admin: 11/07/16 09:20 Dose: 81 mg Carvedilol (Coreg) 3.125 mg PO BID [facility] Last Admin: 11/07/16 17:43 Dose: Not Given Emollient Ointment (Hydrophor Oint) 0 gm TOP DAILY [facility] Last Admin: 11/07/16 09:24 Dose: 1 applic Folic Acid (Folic Acid) 1 mg PO DAILY [facility] Last Admin: 11/07/16 09:20 Dose: 1 mg Ibuprofen (Motrin Tab) 400 mg PO Q12 PRN PRN Reason: Fever >100.4 F Last Admin: 11/07/16 17:41 Dose: 400 mg Isosorbide Mononitrate (Imdur) 30 mg PO DAILY [facility] Last Admin: 11/07/16 09:21 Dose: 30 mg Levofloxacin (Levaquin) 500 mg PO DAILY [facility] Last Admin: 11/07/16 09:20 Dose: 500 mg Lorazepam (Ativan) 0.5 mg IVP Q6H PRN; Protocol PRN Reason: Anxiety Last Admin: 11/07/16 05:22 Dose: 0.5 mg Montelukast Sodium (Singulair) 10 mg PO HS [facility] Last Admin: 11/06/16 22:43 Dose: 10 mg Multivitamins (Thera Tab) 1 tab PO DAILY [facility] Last Admin: 11/07/16 09:20 Dose: 1 tab Pantoprazole Sodium (Protonix Ec Tab) 40 mg PO DAILY [facility] Last Admin: 11/07/16 09:20 Dose: 40 mg Quetiapine Fumarate (Seroquel) 100 mg PO HS [facility] PRN Reason: Protocol Last Admin: 11/06/16 22:43 Dose: 100 mg Quetiapine Fumarate (Seroquel) 25 mg PO QPM [facility] PRN Reason: Protocol Last Admin: 11/07/16 17:41 Dose: 25 mg Quetiapine Fumarate (Seroquel) 25 mg PO QAM [facility] PRN Reason: Protocol Last Admin: 11/07/16 09:21 Dose: 25 mg Thiamine HCl (Vitamin B1 Tab) 100 mg PO BID [facility] Last Admin: 11/07/16 17:41 Dose: 100 mg Ziprasidone (Geodon Inj) 10 mg IM Q8H PRN; Protocol PRN Reason: agitation and psychosis Last Admin: 11/06/16 09:37 Dose: 10 mg - Labs Labs: 11/07/16 07:50 11/07/16 07:50 PT 11.6 Seconds (9.9-11.8) 10/28/16 13:44 INR 1.07 (0.93-1.08) 10/28/16 13:44 APTT 27.9 Seconds (23.7-30.8) 10/28/16 13:44 - Constitutional Appears: Non-toxic, No Acute Distress - Head Exam Head Exam: NORMAL INSPECTION - Neck Exam Neck Exam: absent: Lymphadenopathy, Meningismus - Respiratory Exam Respiratory Exam: Decreased Breath Sounds - Cardiovascular Exam Cardiovascular Exam: +S1, +S2 - GI/Abdominal Exam GI & Abdominal Exam: Soft. absent: Tenderness Assessment and Plan - Assessment and Plan (Free Text) Plan: Assessment sepsis secondary to right lower lobe healthcare-associated pneumonia with possible gram positive cocci and/or gram negative bacilli, clinically improving S/P left hydropneumothorax S/P chest tube placement and removal COPD alcohol abuse HTN depression CAD S/P PCI S/P CABG history of cholelithiasis S/P cholecystectomy S/P right carotid endarterectomy Plan continue LEvaquin for today then d/c Will monitor clinically
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
[2016-11-08 08:03] VITALS: BP 117/71; PULSE 85; RESP 18; TEMP 97.7; O2SAT 93
[2016-11-08] MEDS: Multivitamin Therapeutic Tab PO SCH (10:44)
[2016-11-08] MEDS: MINERAL OIL TOP SCH (10:45)
[2016-11-08] MEDS: PETROLATUM TOP SCH (10:45)
[2016-11-08] MEDS: Pantoprazole 40 mg EC Tab PO SCH (10:45)
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
[2016-11-08] MEDS ORDERED: Albuterol-Ipratrop 3 mg / 0.5 (3 ml) UD IH SCH (20:00)
== END 2016-11-08 18:46 | DRG 541 ==
LOC: ED 05:07 → ERH 09:41 → CCU 12:01 → 5RNO 10-24 20:00 → 2RSO 10-28 16:16 → 5RNO 10-29 20:20
PROVIDERS: ADMIT Internal Medicine; ATTEND Hospitalist
PROC: 0W9B30Z Drainage of Left Pleural Cavity with Drainage Device, Percutaneous Approach (ICD-10-PCS; principal; 2016-10-23)
PROC: 0HQ1XZZ Repair Face Skin, External Approach (ICD-10-PCS; 2016-10-23)
PROC: 0WP8X0Z Removal of Drainage Device from Chest Wall, External Approach (ICD-10-PCS; 2016-10-26)
DX: S27.391A Other injuries of lung, unilateral, initial encounter (principal); A41.9 Sepsis, unspecified organism; J18.9 Pneumonia, unspecified organism; F10.231 Alcohol dependence with withdrawal delirium; S22.42XA Multiple fractures of ribs, left side, initial encounter for closed fracture; E87.8 Other disorders of electrolyte and fluid balance, not elsewhere classified; D52.9 Folate deficiency anemia, unspecified; J44.9 Chronic obstructive pulmonary disease, unspecified; F11.10 Opioid abuse, uncomplicated; S01.111A Laceration without foreign body of right eyelid and periocular area, initial encounter; T79.7XXA Traumatic subcutaneous emphysema, initial encounter; I10 Essential (primary) hypertension; F32.9 Major depressive disorder, single episode, unspecified; G62.9 Polyneuropathy, unspecified; I25.10 Atherosclerotic heart disease of native coronary artery without angina pectoris; F12.10 Cannabis abuse, uncomplicated; F17.200 Nicotine dependence, unspecified, uncomplicated; Y90.9 Presence of alcohol in blood, level not specified; F60.2 Antisocial personality disorder; J45.909 Unspecified asthma, uncomplicated; D50.9 Iron deficiency anemia, unspecified; K21.9 Gastro-esophageal reflux disease without esophagitis; Y04.0XXA Assault by unarmed brawl or fight, initial encounter; Y04.8XXA Assault by other bodily force, initial encounter; I25.2 Old myocardial infarction; Z95.5 Presence of coronary angioplasty implant and graft; Z78.1 Physical restraint status; Z95.1 Presence of aortocoronary bypass graft; Z88.2 Allergy status to sulfonamides; Y92.038 Other place in apartment as the place of occurrence of the external cause

== ENCOUNTER 2017-02-21 16:16 | Observation (INO) | payer MEDICAID ==
[2017-02-21 16:16] VITALS: BMI 23.6
--- NOTE | 2017-02-21 16:48 | ED PDOC ---
Arrival/HPI <Jordan Mcgraw - Last Filed: 02/21/17 17:18> - General Historian: Patient - History of Present Illness Time/Duration: 1-3 hours Symptom Onset: Sudden Symptom Course: Improving Quality: Stabbing Context: Exertion <Sara Wolfe - Last Filed: 02/21/17 18:58> - General Chief Complaint: Chest Pain Time Seen by Provider: 02/21/17 16:30 - History of Present Illness Narrative History of Present Illness (Text): 02/21/17 16:45 62 y/o male with past medical history of CAD s/p open heart surgery, COPD, ETOH abuse, hx of tobacco abuse presents for CP that began about 3 hours ago while he was lifting heavy boxes. Pain began on left side of his chest and radiated to right side and down his left arm. Pain was sharp in nature and now has turned into a throbbing pain. Pain was accompanied with N, diaphoresis and MATA. Patient took SL nitro which slightly decreased the pain. Also c/o of chronic cough that is recently worsening. Denies having any F/C, abd pain, N/V/D/C. (Sara Wolfe) Past Medical History - Provider Review Nursing Documentation Reviewed: Yes - Past History Past History: No Previous - Infectious Disease Hx of Infectious Diseases: None - Tetanus Immunization Tetanus Immunization: Unknown - Reproductive Currently : No - Cardiac Hx Cardiac Disorders: Yes (SD) Hx Hypertension: Yes - Pulmonary Hx Tuberculosis: No Other/Comment: post left chest tube.. - Neurological HX Cerebrovascular Accident: No - HEENT Hx HEENT Disorder: Yes (using eye glasses,left eye blurry vision,sinusitis) Other/Comment: glasses, sinusitis - Renal Hx Renal Disorder: No - Endocrine/Metabolic Hx Endocrine Disorders: No - Hematological/Oncological Hx Blood Disorders: No Hx Cancer: No - Integumentary Hx Dermatological Disorder: No - Musculoskeletal/Rheumatological Hx Falls: No - Gastrointestinal Hx Gastrointestinal Disorders: Yes Hx Gall Bladder Disease: Yes (Gall stones removed) Hx Gastroesophageal Reflux: Yes - Genitourinary/Gynecological Hx Genitourinary Disorders: No Hx Sexually Transmitted Diseases: No - Psychiatric Hx Psychophysiologic Disorder: Yes (smoking ,drink alcohol) Hx Anxiety: Yes Hx Depression: Yes Hx Substance Use: Yes (mj today) - Surgical History Hx Cardiac Catheterization: Yes Hx Cholecystectomy: Yes (gallstones removed) Hx Coronary Stent: Yes ( 4 stents/2004 5 total) Hx Open Heart Surgery: Yes Other/Comment: right endartarectomy - Anesthesia Hx Anesthesia: Yes Hx Anesthesia Reactions: No Hx Malignant Hyperthermia: No - Suicidal Assessment Feels Threatened In Home Enviroment: No <Sara Wolfe - Last Filed: 02/21/17 18:58> Family/Social History - Physician Review Nursing Documentation Reviewed: Yes Family/Social History: Unknown Family HX Smoking Status: Heavy Smoker > 10 Cigarettes Daily Hx Alcohol Use: Yes Hx Substance Use: Yes (mj today) Substance used: HEROIN, MARIJUANA Hx Substance Use Treatment: No <Sara Wolfe - Last Filed: 02/21/17 18:58> Allergies/Home Meds <Jordan Mcgraw - Last Filed: 02/21/17 17:18> <Sara Wolfe - Last Filed: 02/21/17 18:58> Allergies/Adverse Reactions: Allergies shellfish derived Allergy (Verified 11/09/16 00:21) ANAPHYLAXIS Sulfa (Sulfonamide Antibiotics) Allergy (Verified 11/09/16 00:21) RASH Home Medications: Home Meds Medication Instructions Recorded Confirmed Albuterol HFA [Ventolin HFA 90 2 puff IH PRN PRN 02/21/17 02/21/17 mcg/actuation (8 g)] Albuterol/Ipratropium [Duoneb 3 3 ml IH 02/21/17 MG/3 Ml-0.5 MG/3 Ml 3 Ml] Amoxicillin/Clavulanate [Augmentin 1 tab PO 02/21/17 02/21/17 875 MG-125 MG] Aspirin [Adult Low Dose Aspirin EC] 81 mg PO DAILY 02/21/17 02/21/17 Azithromycin [Zithromax] 250 mg PO 02/21/17 Benzonatate 100 mg PO 02/21/17 Carvedilol [Coreg] 3.125 mg PO 02/21/17 Fluticasone/Salmeterol 500/50 1 puff 02/21/17 [Advair Diskus 500/50] Isosorbide Mononitrate [Isosorbide 30 mg PO 02/21/17 Mononitrate ER] Montelukast Sodium [Singulair] 10 mg PO 02/21/17 Nitroglycerin [Nitrostat] 0.4 mg SL PRN PRN 02/21/17 02/21/17 Omeprazole 20 mg PO DAILY 02/21/17 02/21/17 Phenazopyridine HCl [Pyridium] 200 mg PO 02/21/17 Thiamine Mononitrate [Optimum 100 mg PO 02/21/17 Vitamin B-1] Review of Systems - Review of Systems Constitutional: Normal Eyes: Normal ENT: Normal Respiratory: Cough, Wheezing. absent: SOB Cardiovascular: Chest Pain. absent: Palpitations, Edema, Calf Pain Gastrointestinal: Normal. absent: Abdominal Pain, Constipation, Diarrhea, Nausea, Vomiting Genitourinary Male: Normal. absent: Dysuria, Frequency Musculoskeletal: Normal. absent: Back Pain, Neck Pain Skin: absent: Rash, Skin Lesions Neurological: Normal. absent: Headache, Dizziness Endocrine: Diaphoresis. absent: Normal, Polyuria Hemo/Lymphatic: Normal Psychiatric: Normal. absent: Anxiety, Depression <AidenSara - Last Filed: 02/21/17 18:58> Physical Exam Vital Signs Reviewed: Yes <Jordan Mcgraw - Last Filed: 02/21/17 17:18> Temperature: Afebrile Blood Pressure: Normal Pulse: Regular Respiratory Rate: Normal Appearance: Positive for: Well-Appearing, Non-Toxic Pain Distress: Mild Mental Status: Positive for: Alert and Oriented X 3 - Systems Exam Head: Present: Atraumatic, Normocephalic Pupils: Present: PERRL Mouth: Present: Moist Mucous Membranes Respiratory/Chest: Present: Wheezes, Rhonchi (right sided). No: Respiratory Distress, Rales Cardiovascular: Present: Regular Rate and Rhythm, Normal S1, S2. No: Murmurs, Rub, Gallop, Muffled Abdomen: Present: Normal Bowel Sounds. No: Tenderness, Distention, Peritoneal Signs, Guarding Upper Extremity: Present: Normal Inspection Lower Extremity: Present: Normal Inspection. No: Edema Neurological: Present: GCS=15 Skin: Present: Warm, Dry, Normal Color. No: Rashes Psychiatric: Present: Alert, Oriented x 3, Normal Insight, Normal Concentration <AidenSara - Last Filed: 02/21/17 18:58> Vital Signs Temp Pulse Resp BP Pulse Ox 02/21/17 16:30 98.3 F 97 H 18 112/71 98 Medical Decision Making <EliasMichael napoleseze Rivera - Last Filed: 02/21/17 17:18> - Lab Interpretations I have reviewed the lab results: Yes - EKG Interpretation Interpreted by ED Physician: Yes Type: 12 lead EKG <Sara Wolfe - Last Filed: 02/21/17 18:58> ED Course and Treatment: A 62 year old male with chest pain. In agreement with resident note, which includes further HPI details. Patient was seen and evaluated with resident, came up with plan and treatment together. (Jordan Mcgraw) 02/21/17 16:56 Cp likely 2/2 angina vs. PNA vs. costochondiritis Will order: Cardiac iso CBC CMP CXR EKG Patient will be given Nitro Sl and Aspirin 325 mg po stat 02/21/17 18:03 Patient is reassessed. CP has improved. Initial troponin is negative. 02/21/17 18:48 Discussed with hospitalists, Dr. Ramirez who accepts patient. 02/21/17 18:57 Patient is reassessed and is found to be hypotensive. Patient will be given 1 L of NS bolus (Sara Wolfe) - Lab Interpretations Narrative Lab Interpretation (Text): 02/21/17 18:01 initial troponin is negative. (Sara Wolfe) Lab Results: 02/21/17 16:55 02/21/17 16:55 Lab Results 02/21/17 16:55: PT 11.0, INR 1.02, APTT 27.3 02/21/17 16:55: Sodium 136, Potassium 3.9, Chloride 100, Carbon Dioxide 24, Anion Gap 16, BUN 22 H, Creatinine 0.9, Est GFR ( Amer) > 60, Est GFR ( Non-Af Amer) > 60, Random Glucose 85, Calcium 8.9, Total Bilirubin 0.6, AST 30, ALT 26, Alkaline Phosphatase 82, Lactate Dehydrogenase 369, Total Creatine Kinase 106, Troponin I < 0.01 D, Total Protein 7.2, Albumin 4.2, Globulin 3.0, Albumin/Globulin Ratio 1.4 02/21/17 16:55: WBC 4.5 D, RBC 3.72, Hgb 12.3 L, Hct 36.2 L, MCV 97.3, MCH 33.1 , MCHC 34.0, RDW 12.9, Plt Count 187, MPV 9.2 - RAD Interpretation Narrative RAD Interpretations (Text): 02/21/17 18:02 CXR shows no active disease (Sara Wolfe) Radiology Orders: 02/21/17 16:42 CHEST PORTABLE [RAD] Stat - EKG Interpretation EKG Interpretation (Text): 02/21/17 18:02 NSR HR of [address] changes, normal axis and normal interval (Sara Wolfe) - Medication Orders Current Medication Orders: Sodium Chloride (Sodium Chloride 0.9%) 1,000 mls @ 999 mls/hr IV .Q1H1M STA Stop: 02/21/17 19:50 Discontinued Medications Aspirin (Aspirin) 325 mg PO STAT STA Stop: 02/21/17 16:43 Last Admin: 02/21/17 16:54 Dose: 325 mg Famotidine (Pepcid) 40 mg PO STAT STA Stop: 02/21/17 17:09 Last Admin: 02/21/17 17:21 Dose: 40 mg Nitroglycerin (Nitrostat Sl Tab) 0.4 mg SL STAT STA Stop: 02/21/17 16:43 Last Admin: 02/21/17 17:01 Dose: - PA / DOUGH RAISER / Resident Statement MD/DO has reviewed & agrees with the documentation as recorded. MD/DO has examined the patient and agrees with the treatment plan. - Scribe Statement The provider has reviewed the documentation as recorded by the Scribe <Jordan Mcgraw - Last Filed: 02/21/17 17:18> <Sara Wolfe - Last Filed: 02/21/17 18:58> - Scribe Statement Sofy Orellana Provider Scribe Attestation: All medical record entries made by the Scribe were at my direction and personally dictated by me. I have reviewed the chart and agree that the record accurately reflects my personal performance of the history, physical exam, medical decision making, and the department course for this patient. I have also personally directed, reviewed, and agree with the discharge instructions and disposition. (Jordan Mcgraw) Disposition/Present on Arrival <Jordan Mcgraw - Last Filed: 02/21/17 17:18> - Present on Arrival Any Indicators Present on Arrival: No History of DVT/PE: No History of Uncontrolled Diabetes: No Urinary Catheter: No History of Decub. Ulcer: No History Surgical Site Infection Following: None - Disposition Have Diagnosis and Disposition been Completed?: Yes Disposition Time: 18:03 Patient Plan: Observation <Sara Wolfe - Last Filed: 02/21/17 18:58> - Disposition Diagnosis: Chest pain Disposition: HOSPITALIZED Patient Problems: Current Active Problems Problem Status Onset Chest pain Acute Condition: STABLE Discharge Instructions (ExitCare): Chest Pain (ED) Referrals: PCP,NO [Primary Care Provider] - Follow up with primary Forms: FTRANS (Japanese)
[2017-02-21 17:12] LABS: HEMOGLOBIN 12.3 gm/dL (14.0-18.0); MEAN CELL VOLUME 97.3 fL (80.0-105.0); MEAN CORPUSCULAR HEMOGLOBIN 33.1 pg (25.0-35.0); MEAN PLATELET VOLUME 9.2 fl (7.0-11.0); RBC 3.72 10^6/uL (3.5-6.1); RED CELL DISTRIBUTION WIDTH 12.9 % (11.5-14.5); WHITE BLOOD COUNT 4.5 10^3/ul (4.5-11.0)
[2017-02-21 17:22] LABS: ALB/GLOB RATIO 1.4 (1.1-1.8); ALBUMIN 4.2 g/dL (3.0-4.8); ALT/SGPT 26 U/L (7-56); AST/SGOT 30 U/L (15-59); BLOOD UREA NITROGEN 22 mg/dL (7-21); CALCIUM 8.9 mg/dL (8.4-10.5); GFR AFRICAN-AMERICAN > 60; GFR NON-AFRICAN AMERICAN > 60
[2017-02-21 17:29] LABS: INR 1.02 (0.93-1.08); PARTIAL THROMBOPLASTIN TIME 27.3 Seconds (23.7-30.8)
--- NOTE | 2017-02-21 17:48 | RAD ---
HISTORY: chest pain, cough COMPARISON: Chest x-ray performed 11/04/16 TECHNIQUE: Chest, one view. FINDINGS: LUNGS: Right costophrenic angle is excluded from view. 18 mm ill-defined nodular density in the right upper lobe may be possibly related to confluence of shadows including costochondral cartilage however pulmonary nodule is not excluded. PLEURA: No significant pleural effusion identified. No definite pneumothorax . CARDIOVASCULAR: Median sternotomy wires with evidence of CABG. Heart size appears within normal limits. OSSEOUS STRUCTURES: No acute osseous abnormality identified. VISUALIZED UPPER ABDOMEN: Unremarkable. OTHER FINDINGS: None. IMPRESSION: 18 mm ill-defined nodular density in the right upper lobe may be possibly related to confluence of shadows including costochondral cartilage however pulmonary nodule is not excluded. If indicated, CT of the chest suggested for further evaluation.
[2017-02-21 17:55] LABS: TROPONIN I < 0.01 ng/mL
[2017-02-21] MEDS ORDERED: Sodium Chloride 0.9% 1,000 ML IV STA (18:50)
[2017-02-21] MEDS ORDERED: Albuterol-Ipratrop 3 mg / 0.5 (3 ml) UD IH PRN (19:39)
[2017-02-21] MEDS: Budesonide 0.5 mg/2 ml Inhal Susp UD IH SCH (20:14)
[2017-02-21] MEDS: Arformoterol 15 mcg/2 ml Inh Sol IH SCH (20:14)
[2017-02-21 20:46] LABS: MAGNESIUM 1.7 mg/dL (1.7-2.2)
--- NOTE | 2017-02-21 21:12 | CP.PCM.HP ---
<Irving Simpson - Last Filed: 02/21/17 21:02> History of Present Illness - History of Present Illness History of Present Illness: CC: Chest Pain 62 y/o male with past medical history of CAD s/p CABG and 4 stents, COPD, ETOH abuse, hx of tobacco abuse presents to the ED with chest pain. Pt states that his chest pain first started 4 hours prior to arrival when he was at work lifting heavy boxes. He describes the pain as stabbing and the pain radiates to his L arm. States that the pain was 8/10. Pain was accompanied with some nausea and diaphoresis. Patient took nitroglycerin at home which alleviated some of the pain. Denies having any macdonald, dizzines, F/C, sob, abd pain, N/V/D/C. PMHX: CAD w/ stents x4, COPD, ETOH abuse, HTN, depression, peripheral neuropathy , cholelithiasis Psurghx: right carotid endartectomy, cholecystectomy, coronary bypass Social hx: daily smoker 4-5 cig daily , hx of drink a pint of vodka/whiskey daily last drink Aprl 4th, past marijuana and heroin abuse Allergies: sulfa medications & shellfish Family hx: DM, arthritis, and thyroid cancer Present on Admission - Present on Admission Any Indicators Present on Admission: No Review of Systems - Review of Systems All systems: reviewed and no additional remarkable complaints except (HPI) Past Patient History - Infectious Disease Hx of Infectious Diseases: None - Tetanus Immunizations Tetanus Immunization: Unknown - Past Medical History & Family History Past Medical History?: Yes - Past Social History Smoking Status: Heavy Smoker > 10 Cigarettes Daily - CARDIAC Hx Cardiac Disorders: Yes (NE) Hx Hypertension: Yes - PULMONARY Hx Tuberculosis: No Other/Comment: post left chest tube.. - NEUROLOGICAL HX Cerebrovascular Accident: No - HEENT Hx HEENT Problems: Yes (using eye glasses,left eye blurry vision,sinusitis) Other/Comment: glasses, sinusitis - RENAL Hx Chronic Kidney Disease: No - ENDOCRINE/METABOLIC Hx Endocrine Disorders: No - HEMATOLOGICAL/ONCOLOGICAL Hx Blood Disorders: No Hx Cancer: No - INTEGUMENTARY Hx Dermatological Problems: No - MUSCULOSKELETAL/RHEUMATOLOGICAL Hx Falls: No - GASTROINTESTINAL Hx Gastrointestinal Disorders: Yes Hx Gall Bladder Disease: Yes (Gall stones removed) Hx Gastroesophageal Reflux: Yes - GENITOURINARY/GYNECOLOGICAL Hx Genitourinary Disorders: No Hx Sexually Transmitted Disorders: No - PSYCHIATRIC Hx Psychophysiologic Disorder: Yes (smoking ,drink alcohol) Hx Anxiety: Yes Hx Depression: Yes Hx Substance Use: Yes (mj today) - SURGICAL HISTORY Hx Cardiac Catheterization: Yes Hx Cholecystectomy: Yes (gallstones removed) Hx Coronary Stent: Yes ( 4 stents/2005 5 total) Hx Open Heart Surgery: Yes Other/Comment: right endartarectomy - ANESTHESIA Hx Anesthesia: Yes Hx Anesthesia Reactions: No Hx Malignant Hyperthermia: No Meds Allergies/Adverse Reactions: Allergies Allergy/AdvReac Type Severity Reaction Status Date / Time shellfish derived Allergy ANAPHYLAXIS Verified 11/09/16 00:21 Sulfa (Sulfonamide Allergy RASH Verified 11/09/16 00:21 Antibiotics) Physical Exam - Constitutional Appears: No Acute Distress - Head Exam Head Exam: ATRAUMATIC, NORMAL INSPECTION, NORMOCEPHALIC - Eye Exam Eye Exam: EOMI, Normal appearance, PERRL Pupil Exam: NORMAL ACCOMODATION, PERRL - ENT Exam ENT Exam: Mucous Membranes Moist, Normal Exam - Neck Exam Neck exam: Positive for: Normal Inspection - Respiratory Exam Respiratory Exam: Clear to Auscultation Bilateral, NORMAL BREATHING PATTERN. absent: Wheezes - Cardiovascular Exam Cardiovascular Exam: REGULAR RHYTHM, RRR, +S1, +S2 - GI/Abdominal Exam GI & Abdominal Exam: Normal Bowel Sounds, Soft. absent: Tenderness - Extremities Exam Extremities exam: Positive for: normal inspection. Negative for: calf tenderness, pedal edema - Back Exam Back exam: NORMAL INSPECTION - Neurological Exam Neurological exam: Alert, Oriented x3, Reflexes Normal - Psychiatric Exam Psychiatric exam: Normal Affect, Normal Mood - Skin Skin Exam: Dry, Intact, Normal Color, Warm Results - Vital Signs Recent Vital Signs: Last Vital Signs Temp 98.5 F 02/21/17 20:24 Pulse 65 02/21/17 20:36 Resp 18 02/21/17 20:36 BP 86/55 L 02/21/17 20:36 Pulse Ox 99 02/21/17 20:36 - Labs Result Diagrams: 02/21/17 16:55 02/21/17 16:55 Assessment & Plan - Assessment and Plan (Free Text) Assessment: 62 y/o male with past medical history of CAD s/p CABG and 4 stents, COPD, ETOH abuse, hx of tobacco abuse presents to the ED with chest pain r/o ACS. 1. Chest pain r/o ACS - EKG in the ED reviewed - Trops x 1 negative - F/u Serial trops - Aspirin 325 given in the ED and daily Aspirin 81mg - F/u echo in AM - Cont home Carvedilol - Consider Cardiology consult - Consider adding ACEI or ARB - F/u Mg, P, Hba1c, Lipid and TSH - Daily labs 2. COPD: - Cont duoneb, Brovana, Pulmicort, singuilar - Keep SaO2 90-94% - O2 as needed 3. Hx of ETOH abuse - States last drink was October 23 - cont to monitor 4. GI/DVT ppx - Lovenox sc and Pepcid Case and plan was reviewed and discussed with Dr Rashid. <Bhavesh Rashid - Last Filed: 02/21/17 22:00> Results - Vital Signs Recent Vital Signs: Last Vital Signs Temp 98.5 F 02/21/17 20:24 Pulse 65 02/21/17 20:36 Resp 18 02/21/17 20:36 BP 86/55 L 02/21/17 20:36 Pulse Ox 99 02/21/17 20:36 - Labs Result Diagrams: 02/21/17 16:55 02/21/17 16:55 Attending/Attestation - Attestation I have personally seen and examined this patient.: Yes I have fully participated in the care of the patient.: Yes I have reviewed all pertinent clinical information: Yes Notes (Text): 02/21/17 21:58 Patient was seen when he was in bed # 5 in the ER. Agree with history, physical examination, assessment and plan. Following should be inserted in the notes. 62 year old white male with history of HTN, CAD,CABG, NE x 2, HLD, smoker, alcohol abuse, cocaine ,marijuana use,anxiety ,depression,bifocal eyeglasses,emphysema, bronchitis, blurry vision when uses advair pump, allergy to shell fish, iodine,sulfa, GERD, right carotid end arterectomy left inguinal herniorrhphy, left ankle fracture,repairx3, 5 broken ribs, palpitations, pneumonia, gall stone surgery, arthritis, back pain, Family history of DM, thyroid cancer , breast cancer, social history of living in [facility] in [place], is has one daughter, complained of some chest pain about 2:30 PM today 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
[2017-02-22 06:50] LABS: BASO # 0.02 K/mm3 (0.0-2.0); BASO % 0.5 % (0.0-3.0); EOS # 0.2 (0.0-0.7); EOS % 4.9 % (1.5-5.0); GRAN % 39.6 % (50.0-68.0); HEMOGLOBIN 11.3 gm/dL (14.0-18.0); LYMPH # 1.8 (1.2-3.4); LYMPH % 41.7 % (22.0-35.0); MEAN CELL VOLUME 97.4 fL (80.0-105.0); MEAN CORPUSCULAR HEMOGLOBIN 32.3 pg (25.0-35.0); MEAN CORPUSCULAR HGB CONC 33.1 g/dl (31.0-37.0); MEAN PLATELET VOLUME 9.3 fl (7.0-11.0); MONO # 0.6 (0.1-0.6); MONO % 13.3 % (1.0-6.0); PLATELET COUNT 158 10^3/uL (120.0-450.0); WHITE BLOOD COUNT 4.3 10^3/ul (4.5-11.0)
[2017-02-22 07:33] LABS: TROPONIN I < 0.01 ng/mL
[2017-02-22 07:34] LABS: ALB/GLOB RATIO 1.5 (1.1-1.8); ALBUMIN 3.7 g/dL (3.0-4.8); ALT/SGPT 22 U/L (7-56); AST/SGOT 29 U/L (15-59); BLOOD UREA NITROGEN 15 mg/dL (7-21); CALCIUM 8.9 mg/dL (8.4-10.5); GFR AFRICAN-AMERICAN > 60; GFR NON-AFRICAN AMERICAN > 60
[2017-02-22] MEDS: Arformoterol 15 mcg/2 ml Inh Sol IH SCH ×2 (07:48→21:17)
[2017-02-22] MEDS: Budesonide 0.5 mg/2 ml Inhal Susp UD IH SCH ×2 (07:48→21:18)
[2017-02-22] MEDS: Pantoprazole 20 mg EC Tab PO SCH (08:01)
--- NOTE | 2017-02-22 09:12 | CARD ---
APPROVED REPORT EKG Measurement Heart [id number] OR [id number] <Conclusion> Sinus bradycardia Early repolarization No change except the rate is slower
[2017-02-22] MEDS: Enoxaparin 40 mg Syringe SC SCH (09:22)
--- NOTE | 2017-02-22 09:46 | CARD ---
APPROVED REPORT EKG Measurement Heart [id number] DC 156P71 [id number] <Conclusion> Normal sinus rhythm Normal ECG
[2017-02-22] MEDS ORDERED: Fluticasone-Salmeterol 500-50mcg Diskus INH SCH (10:00)
--- NOTE | 2017-02-22 12:54 | CT ---
PROCEDURE: CT Chest without contrast HISTORY: lung nodules COMPARISON: None. TECHNIQUE: Contiguous axial images were obtained through the chest without intravenous contrast enhancement. Sagittal and coronal reconstructions were performed. Radiation dose (DLP): 407 mGy-cm. This CT exam was performed using one or more of the following dose reduction techniques: Automated exposure control, adjustment of the mA and/or kV according to patient size, and/or use of iterative reconstruction technique. FINDINGS: LUNGS: Clear lungs. Visualized airway clear. MEDIASTINUM: Unremarkable thoracic aorta. No aneurysm. Normal sized heart. Main pulmonary artery unremarkable. No vascular congestion. No lymphadenopathy. PLEURA: No pleural fluid. No pneumothorax. BONES: No fracture. No destructive lesion. UPPER ABDOMEN: Grossly unremarkable. OTHER FINDINGS: Calcification of the coronary artery IMPRESSION: Unremarkable non-contrast enhanced CT of the chest.
[2017-02-22 14:44] LABS: TROPONIN I < 0.01 ng/mL
--- NOTE | 2017-02-22 15:39 | CP.PCM.PN ---
Subjective - Date & Time of Evaluation Date of Evaluation: 02/22/17 Time of Evaluation: 15:33 - Subjective Subjective: Patient s/e this AM. Patient admitted for chest pain last night. Serial troponin have been negative x3. EKG shows no acute changes from previous. Patient reports continued chest pain this morning. He states the pain is similar to his presenting symptoms but slightly diminished. He denies difficulty breathing, nausea, vomiting, or abdominal pain. Objective - Vital Signs/Intake and Output Vital Signs (last 24 hours): Temp Pulse Resp BP Pulse Ox 97 F L 54 L 19 100/49 L 100 02/22/17 12:00 02/22/17 14:00 02/22/17 12:00 02/22/17 12:00 02/22/17 09:00 - Medications Medications: Current Medications Albuterol/Ipratropium (Duoneb 3 Mg/0.5 Mg (3 Ml) Ud) 3 ml IH [id number] PRN PRN Reason: Shortness of Breath Arformoterol Tartrate (Brovana) 15 mcg IH [id number] [facility] Last Admin: 02/22/17 07:48 Dose: 15 mcg Aspirin (Ecotrin) 81 mg PO DAILY [facility] Last Admin: 02/22/17 09:23 Dose: 81 mg Atorvastatin Calcium (Lipitor) 20 mg PO DIN [facility] Budesonide (Pulmicort Respules) 1 mg IH [id number] [facility] Last Admin: 02/22/17 07:48 Dose: 1 mg Carvedilol (Coreg) 3.125 mg PO BID [facility] Last Admin: 02/22/17 09:23 Dose: 3.125 mg Enoxaparin Sodium (Lovenox) 40 mg SC DAILY [facility] PRN Reason: Protocol Last Admin: 02/22/17 09:22 Dose: 40 mg Montelukast Sodium (Singulair) 10 mg PO DAILY [facility] Last Admin: 02/22/17 09:23 Dose: 10 mg Nitroglycerin (Nitrostat Sl Tab) 0.4 mg SL Q5M PRN PRN Reason: pain Last Admin: 02/22/17 11:07 Dose: 0.4 mg Pantoprazole Sodium (Protonix Ec Tab) 20 mg PO ACB [facility] Last Admin: 02/22/17 08:01 Dose: 20 mg Thiamine HCl (Vitamin B1 Tab) 100 mg PO DAILY [facility] Last Admin: 02/22/17 09:23 Dose: 100 mg - Labs Labs: 02/22/17 06:15 02/22/17 06:15 PT 11.0 Seconds (9.9-11.8) 02/21/17 16:55 INR 1.02 (0.93-1.08) 02/21/17 16:55 APTT 27.3 Seconds (23.7-30.8) 02/21/17 16:55 - Constitutional Appears: No Acute Distress - Head Exam Head Exam: ATRAUMATIC, NORMAL INSPECTION, NORMOCEPHALIC - Eye Exam Eye Exam: EOMI, PERRL - ENT Exam ENT Exam: Mucous Membranes Moist - Neck Exam Neck Exam: Full ROM - Respiratory Exam Respiratory Exam: Wheezes (expiratory and inspiratory ), NORMAL BREATHING PATTERN - Cardiovascular Exam Cardiovascular Exam: REGULAR RHYTHM, +S1, +S2. absent: JVD - GI/Abdominal Exam GI & Abdominal Exam: Soft, Normal Bowel Sounds - Extremities Exam Extremities Exam: Full ROM, Normal Capillary Refill. absent: Pedal Edema - Neurological Exam Neurological Exam: Alert, Awake, CN II-XII Intact, Oriented x3 Neuro motor strength exam: Left Upper Extremity: 5, Right Upper Extremity: 5, Left Lower Extremity: 5, Right Lower Extremity: 5 - Psychiatric Exam Psychiatric exam: Normal Affect, Normal Mood - Skin Skin Exam: Dry, Intact, Normal Color, Warm Assessment and Plan - Assessment and Plan (Free Text) Assessment: Patient is a 62 year old male with past medical history significant for CAD s/p 4 stents, CABG, COPD, ETOH abuse and tobacco abuse who presented to the ED with chest pain on exertion and was admitted for ACS rule out Plan: 1. Typical chest pain r/o ACS - EKG in the ED shows no acute ST elevations or depression nor any T wave inversions - Trops x3 all negative - Cardiology consult, awaiting recs - Echocardiogram for evaluation of wall motion abnormalities and EF - Aspirin - coreg - lipitor 20mg - nitro 2. COPD - Chest xray shows 18 mm ill defined nodular density in RUL - CT chest done today, unremarkable - Continue brovana, duoneb, pulmicort, singuilar 3. Hx of ETOH abuse - [facility] protocol 4. GI/DVT ppx - lovenox - pepcid dispo: Patient to be monitored overnight with possible dc tomorrow if chest pain free.
--- NOTE | 2017-02-22 20:24 | CON ---
DATE: 02/22/2017 CARDIOLOGY CONSULTATION REASON FOR CONSULTATION: Chest pain. HISTORY OF PRESENT ILLNESS: The patient is a 62 years old male, who has history of coronary artery disease, status post coronary artery bypass surgery, history of coronary stenting 4 times in the past, history of ETOH abuse and smoking,and history of depression, presented because of sharp chest pain that he experienced after lifting heavy boxes as part of his work. The patient is also experiencing shortness of breath. He denies any dizziness or syncope. The patient underwent a Myoview stress test in 10/2015 which revealed myocardial perfusion study and normal overall left ventricular systolic function despite paradoxical septal wall motion. SOCIAL HISTORY: The patient is smoker and ETOH abuser. MEDICATIONS: The patient is on Brovana 15 mcg inhalation q. 12 hours, Coreg 3.125 mg twice a day, aspirin 81 mg once a day, Lovenox 40 mg subcutaneous once a day, Protonix 20 mg p.o. once a day, and Singulair 10 mg p.o. daily. PHYSICAL EXAMINATION: GENERAL: The patient is a middle-aged male who does not appear to be in no acute distress. VITAL SIGNS: Blood pressure 100/49, heart rate 63, temperature 97, respiration 19. HEENT: Normocephalic. LUNGS: Minimal rhonchi. CHEST: S1 and S2 regular. ABDOMEN: Soft. EXTREMITIES: No edema. LABORATORY DATA: Hemoglobin and hematocrit, 11.3 and 34.1, white count and platelet count are 4.3 and 158,000. Today's SMA-7 within normal limits. Three sets of troponins are negative. LDL cholesterol is elevated at 134. TSH is elevated 6.23. EKG reveals sinus rhythm with early repolarization pattern. ASSESSMENT: 1. Chest pain, myocardial infarction ruled out. 2. History of coronary artery disease, status post coronary artery bypass surgery as well as coronary stenting 4 times in the past. 3. Hypertension. 4. History of right carotid endarterectomy. RECOMMENDATIONS: I did review the report of the chest CT scan without contrast, which was unremarkable study. Continue current aspirin 81 mg once a day, Coreg at 3.125 mg twice a day. Start Lipitor 20 mg once a day. I would review echocardiogram study that was performed today, obtain urine for drug screen. Mike Young MD [facility] # [id number]
[2017-02-22 22:27] LABS: BARBITURATES, UR NEGATIVE (NEGATIVE); BENZODIAZEPINES, UR NEGATIVE (NEGATIVE); OPIATES, UR NEGATIVE (NEGATIVE); PHENCYCLIDINE, UR NEGATIVE (NEGATIVE)
[2017-02-23 06:07] VITALS: RESP 18
[2017-02-23 07:33] LABS: BASO # 0.02 K/mm3 (0.0-2.0); BASO % 0.5 % (0.0-3.0); EOS # 0.3 (0.0-0.7); EOS % 6.7 % (1.5-5.0); GRAN # 1.82 (1.4-6.5); GRAN % 43.5 % (50.0-68.0); HEMOGLOBIN 11.8 gm/dL (14.0-18.0); LYMPH # 1.6 (1.2-3.4); LYMPH % 38.3 % (22.0-35.0); MEAN CELL VOLUME 97.3 fL (80.0-105.0); MEAN CORPUSCULAR HEMOGLOBIN 32.3 pg (25.0-35.0); MEAN CORPUSCULAR HGB CONC 33.2 g/dl (31.0-37.0); MEAN PLATELET VOLUME 9.3 fl (7.0-11.0); MONO # 0.5 (0.1-0.6); PLATELET COUNT 171 10^3/uL (120.0-450.0); RBC 3.65 10^6/uL (3.5-6.1); RED CELL DISTRIBUTION WIDTH 12.7 % (11.5-14.5); WHITE BLOOD COUNT 4.2 10^3/ul (4.5-11.0)
[2017-02-23 07:56] LABS: ALB/GLOB RATIO 1.2 (1.1-1.8); ALBUMIN 3.7 g/dL (3.0-4.8); ALT/SGPT 21 U/L (7-56); AST/SGOT 27 U/L (15-59); BLOOD UREA NITROGEN 15 mg/dL (7-21); CALCIUM 9.2 mg/dL (8.4-10.5); GFR AFRICAN-AMERICAN > 60; GFR NON-AFRICAN AMERICAN > 60
[2017-02-23] MEDS: Arformoterol 15 mcg/2 ml Inh Sol IH SCH (08:02)
[2017-02-23] MEDS: Budesonide 0.5 mg/2 ml Inhal Susp UD IH SCH (08:04)
[2017-02-23] MEDS: Pantoprazole 20 mg EC Tab PO SCH (08:04)
[2017-02-23] MEDS: Enoxaparin 40 mg Syringe SC SCH (09:25)
--- NOTE | 2017-02-23 10:20 | CARD ---
APPROVED REPORT EXAM: Two-dimensional and M-mode echocardiogram with Doppler and color Doppler. Other Information Quality : AverageRhythm : INDICATION Chest Pain 2D DIMENSIONS Left Atrium (2D)3.8 (1.6-4.0cm)IVSd1.0 (0.7-1.1cm) LVDd4.4 (3.9-5.9cm)PWd0.9 (0.7-1.1cm) LVDs3.3 (2.5-4.0cm)FS (%) 25.7 % LVEF (%)50.0 (>50%) M-Mode DIMENSIONS Aortic Root3.40 (2.2-3.7cm)Aortic Cusp Exc.1.60 (1.5-2.0cm) Aortic Valve AoV Peak Epgqzjtx340.0cm/s Mitral Valve MV E Oueqjppc27.7cm/sMV A Qjcszuud33.8cm/sE/A ratio1.1 TDI Lateral E' Peak V7.60cm/sMedial E' Peak V9.65cm/sE/Lateral E'8.5 E/Medial E'6.7 Pulmonary Valve PV Peak Wlnjuejw12.8cm/sPV Peak Grad.3mmHg Tricuspid Valve TR Peak Fxqvvpmx126ex/sRAP VDSRPCSP34xxJfVI Peak Gr.28mmHg [id number] LEFT VENTRICLE The left ventricle is normal size. There is normal left ventricular wall thickness. The left ventricular function is normal. The left ventricular ejection fraction is within the normal range. There is normal LV segmental wall motion except that the mid septum appears hypokinetic. RIGHT VENTRICLE The right ventricle is normal size. ATRIA The left atrium size is normal. The right atrium size is normal. The interatrial septum is intact with no evidence for an atrial septal defect. AORTIC VALVE The aortic valve is normal in structure. MITRAL VALVE The mitral valve is normal in structure. Mitral regurgitation is trace. TRICUSPID VALVE The tricuspid valve is normal in structure. There is mild tricuspid regurgitation. GREAT VESSELS The aortic root is normal in size. PERICARDIAL EFFUSION There is no pericardial effusion. <Conclusion> The left ventricle is normal size. There is normal left ventricular wall thickness. The left ventricular function is normal. There is normal LV segmental wall motion except that the mid septum appears hypokinetic.
--- NOTE | 2017-02-23 10:22 | CARD ---
APPROVED REPORT EKG Measurement Heart [id number] <Conclusion> Normal sinus rhythm Early repolarization Normal ECG No change
[2017-02-23 10:42] VITALS: O2SAT 95
[2017-02-23 12:41] VITALS: BP 103/54; PULSE 56; TEMP 97.7
--- NOTE | 2017-02-23 15:51 | CP.PCM.DIS ---
<BetoChris - Last Filed: 02/23/17 15:26> Provider - Provider Date of Admission: 02/21/17 18:08 Attending physician: Capo Ramirez MD Primary care physician: NO PRIMARY CARE PROVIDER Consults: Cardiology: Dr. Marisa Ernandez Time Spent in preparation of Discharge (in minutes): 30 Diagnosis - Discharge Diagnosis (1) Chest pain Status: Acute Hospital Course - Lab Results Lab Results: Most Recent Lab Values WBC 4.2 10^3/ul (4.5-11.0) L 02/23/17 07:18 RBC 3.65 10^6/uL (3.5-6.1) 02/23/17 07:18 Hgb 11.8 gm/dL (14.0-18.0) L 02/23/17 07:18 Hct 35.5 % (42.0-52.0) L 02/23/17 07:18 MCV 97.3 fL (80.0-105.0) 02/23/17 07:18 MCH 32.3 pg (25.0-35.0) 02/23/17 07:18 MCHC 33.2 g/dl (31.0-37.0) 02/23/17 07:18 RDW 12.7 % (11.5-14.5) 02/23/17 07:18 Plt Count 171 10^3/uL (120.0-450.0) 02/23/17 07:18 MPV 9.3 fl (7.0-11.0) 02/23/17 07:18 Gran % 43.5 % (50.0-68.0) L 02/23/17 07:18 Lymph % (Auto) 38.3 % (22.0-35.0) H 02/23/17 07:18 [place] % (Auto) 11.0 % (1.0-6.0) H 02/23/17 07:18 Eos % (Auto) 6.7 % (1.5-5.0) H 02/23/17 07:18 Baso % (Auto) 0.5 % (0.0-3.0) 02/23/17 07:18 Gran # 1.82 (1.4-6.5) 02/23/17 07:18 Lymph # 1.6 (1.2-3.4) 02/23/17 07:18 [place] # 0.5 (0.1-0.6) 02/23/17 07:18 Eos # 0.3 (0.0-0.7) 02/23/17 07:18 Baso # 0.02 K/mm3 (0.0-2.0) 02/23/17 07:18 PT 11.0 Seconds (9.9-11.8) 02/21/17 16:55 INR 1.02 (0.93-1.08) 02/21/17 16:55 APTT 27.3 Seconds (23.7-30.8) 02/21/17 16:55 Sodium 138 mmol/L (132-148) 02/23/17 07:18 Potassium 4.2 mmol/L (3.6-5.0) 02/23/17 07:18 Chloride 104 mmol/L (98-107) 02/23/17 07:18 Carbon Dioxide 26 mmol/L (21-33) 02/23/17 07:18 Anion Gap 12 (10-20) 02/23/17 07:18 BUN 15 mg/dL (7-21) 02/23/17 07:18 Creatinine 0.9 mg/dL (0.5-1.4) 02/23/17 07:18 Est GFR ( Amer) > 60 02/23/17 07:18 Est GFR (Non-Af Amer) > 60 02/23/17 07:18 Random Glucose 81 mg/dL (70-110) 02/23/17 07:18 Hemoglobin A1c 5.6 % (4.2-6.5) 02/21/17 16:55 Calcium 9.2 mg/dL (8.4-10.5) 02/23/17 07:18 Phosphorus 3.0 mg/dL (2.5-4.5) 02/21/17 16:55 Magnesium 1.7 mg/dL (1.7-2.2) 02/21/17 16:55 Total Bilirubin 0.5 mg/dL (0.2-1.3) 02/23/17 07:18 AST 27 U/L (15-59) 02/23/17 07:18 ALT 21 U/L (7-56) 02/23/17 07:18 Alkaline Phosphatase 77 U/L (38-133) 02/23/17 07:18 Lactate Dehydrogenase 295 U/L (333-699) L 02/22/17 14:00 Total Creatine Kinase 91 U/L (35-230) 02/22/17 14:00 Troponin I < 0.01 ng/mL 02/22/17 14:00 Total Protein 6.7 g/dL (5.8-8.3) 02/23/17 07:18 Albumin 3.7 g/dL (3.0-4.8) 02/23/17 07:18 Globulin 3.0 gm/dL 02/23/17 07:18 Albumin/Globulin Ratio 1.2 (1.1-1.8) 02/23/17 07:18 Triglycerides 120 mg/dL (35-160) 02/21/17 16:55 Cholesterol 190 mg/dL (130-200) 02/21/17 16:55 LDL Cholesterol Direct 134 mg/dL (0-129) H 02/21/17 16:55 HDL Cholesterol 38 mg/dL (29-60) 02/21/17 16:55 TSH 3rd Generation 6.23 mIU/mL (0.46-4.68) H 02/21/17 16:55 Urine Opiates Screen Negative (NEGATIVE) 02/22/17 20:45 Urine Methadone Screen Negative (NEGATIVE) 02/22/17 20:45 Ur Barbiturates Screen Negative (NEGATIVE) 02/22/17 20:45 Ur Phencyclidine Scrn Negative (NEGATIVE) 02/22/17 20:45 Ur Amphetamines Screen Negative (NEGATIVE) 02/22/17 20:45 U Benzodiazepines Scrn Negative (NEGATIVE) 02/22/17 20:45 U Oth Cocaine Metabols Negative (NEGATIVE) 02/22/17 20:45 U Cannabinoids Screen Negative (NEGATIVE) 02/22/17 20:45 Alcohol, Quantitative < 10 mg/dL (0-10) 02/21/17 23:25 - Hospital Course Hospital Course: Patient is a 62 year old male with a past medical history of CAD s/p CABG and history of 4 stents, COPD, ETOH abuse, history of tobacco and alcohol abuse who presented to [facility] ED with chest pain. In the emergency department an EKG was done showing no ST elevations/depressions or T wave inversions. The patient was admitted for observation. Patient's troponins were found to be negative x 4. Cardiology was consulted and recommended continuing his current aspirin 81, coreg 3.125 daily and starting lipitor 20mg. An echocardiogram was conducted and patient was noted to have normal LV function with normal LV function except for mid septum hyopkinesis. A chest xray was done showing 18 mm ill-defined nodular density in the right upper lobe. A follow up CT of his chest was negative for pulmonary nodule. Patient was counseled on cessation of tobacco and the importance of proper compliance with his medical therapies outpatient. The patient was evaluated and found to be hemodynamically stable for discharge and outpatient follow up. - Date & Time of H&P Date of H&P: 02/21/17 Time of H&P: 21:00 Discharge Exam - Head Exam Head Exam: ATRAUMATIC, NORMAL INSPECTION, NORMOCEPHALIC - Eye Exam Eye Exam: EOMI, Normal appearance, PERRL - Respiratory Exam Respiratory Exam: Rhonchi (and crackles bilateral R>L), Wheezes (inspiratory and experiatory ) - Cardiovascular Exam Cardiovascular Exam: REGULAR RHYTHM, +S1, +S2 - GI/Abdominal Exam GI & Abdominal Exam: Normal Bowel Sounds, Unremarkable - Extremities Exam Extremities exam: full ROM, pedal pulses present - Neurological Exam Neurological exam: Alert, CN II-XII Intact, Normal Gait, Oriented x3 - Psychiatric Exam Psychiatric exam: Normal Affect, Normal Mood - Skin Skin Exam: Dry, Normal Color Discharge Plan - Follow Up Plan Condition: STABLE Disposition: HOME/ ROUTINE Instructions: Chest Pain (DC), How to Stop Smoking (GEN), Heart Healthy Diet ( GEN), Cigarette Smoking and Your Health (GEN), Cholesterol and Your Health (GEN) , Abuse of Alcohol (GEN), Alcohol Dependence (GEN) Additional Instructions: 1.Follow up with PMD Dr. Damon in 3 days. 2. Stop smoking. 3. Follow up with cardiology of choice. 4. Stop alcohol abuse. If condition occurs again, go to the nearest emergency room. Diet: Heart Healthy, low cholesterol Patient states he is up to date with regards to the flu and the pneumococcal vaccines. Referrals: PCP,NO [Primary Care Provider] - <Capo Ramirez - Last Filed: 02/23/17 16:39> Provider - Provider Date of Admission: 02/21/17 18:08 Attending physician: Capo Ramirez MD Primary care physician: NO PRIMARY CARE PROVIDER Hospital Course - Lab Results Lab Results: Most Recent Lab Values WBC 4.2 10^3/ul (4.5-11.0) L 02/23/17 07:18 RBC 3.65 10^6/uL (3.5-6.1) 02/23/17 07:18 Hgb 11.8 gm/dL (14.0-18.0) L 02/23/17 07:18 Hct 35.5 % (42.0-52.0) L 02/23/17 07:18 MCV 97.3 fL (80.0-105.0) 02/23/17 07:18 MCH 32.3 pg (25.0-35.0) 02/23/17 07:18 MCHC 33.2 g/dl (31.0-37.0) 02/23/17 07:18 RDW 12.7 % (11.5-14.5) 02/23/17 07:18 Plt Count 171 10^3/uL (120.0-450.0) 02/23/17 07:18 MPV 9.3 fl (7.0-11.0) 02/23/17 07:18 Gran % 43.5 % (50.0-68.0) L 02/23/17 07:18 Lymph % (Auto) 38.3 % (22.0-35.0) H 02/23/17 07:18 [place] % (Auto) 11.0 % (1.0-6.0) H 02/23/17 07:18 Eos % (Auto) 6.7 % (1.5-5.0) H 02/23/17 07:18 Baso % (Auto) 0.5 % (0.0-3.0) 02/23/17 07:18 Gran # 1.82 (1.4-6.5) 02/23/17 07:18 Lymph # 1.6 (1.2-3.4) 02/23/17 07:18 [place] # 0.5 (0.1-0.6) 02/23/17 07:18 Eos # 0.3 (0.0-0.7) 02/23/17 07:18 Baso # 0.02 K/mm3 (0.0-2.0) 02/23/17 07:18 PT 11.0 Seconds (9.9-11.8) 02/21/17 16:55 INR 1.02 (0.93-1.08) 02/21/17 16:55 APTT 27.3 Seconds (23.7-30.8) 02/21/17 16:55 Sodium 138 mmol/L (132-148) 02/23/17 07:18 Potassium 4.2 mmol/L (3.6-5.0) 02/23/17 07:18 Chloride 104 mmol/L (98-107) 02/23/17 07:18 Carbon Dioxide 26 mmol/L (21-33) 02/23/17 07:18 Anion Gap 12 (10-20) 02/23/17 07:18 BUN 15 mg/dL (7-21) 02/23/17 07:18 Creatinine 0.9 mg/dL (0.5-1.4) 02/23/17 07:18 Est GFR ( Amer) > 60 02/23/17 07:18 Est GFR (Non-Af Amer) > 60 02/23/17 07:18 Random Glucose 81 mg/dL (70-110) 02/23/17 07:18 Hemoglobin A1c 5.6 % (4.2-6.5) 02/21/17 16:55 Calcium 9.2 mg/dL (8.4-10.5) 02/23/17 07:18 Phosphorus 3.0 mg/dL (2.5-4.5) 02/21/17 16:55 Magnesium 1.7 mg/dL (1.7-2.2) 02/21/17 16:55 Total Bilirubin 0.5 mg/dL (0.2-1.3) 02/23/17 07:18 AST 27 U/L (15-59) 02/23/17 07:18 ALT 21 U/L (7-56) 02/23/17 07:18 Alkaline Phosphatase 77 U/L (38-133) 02/23/17 07:18 Lactate Dehydrogenase 295 U/L (333-699) L 02/22/17 14:00 Total Creatine Kinase 91 U/L (35-230) 02/22/17 14:00 Troponin I < 0.01 ng/mL 02/22/17 14:00 Total Protein 6.7 g/dL (5.8-8.3) 02/23/17 07:18 Albumin 3.7 g/dL (3.0-4.8) 02/23/17 07:18 Globulin 3.0 gm/dL 02/23/17 07:18 Albumin/Globulin Ratio 1.2 (1.1-1.8) 02/23/17 07:18 Triglycerides 120 mg/dL (35-160) 02/21/17 16:55 Cholesterol 190 mg/dL (130-200) 02/21/17 16:55 LDL Cholesterol Direct 134 mg/dL (0-129) H 02/21/17 16:55 HDL Cholesterol 38 mg/dL (29-60) 02/21/17 16:55 TSH 3rd Generation 6.23 mIU/mL (0.46-4.68) H 02/21/17 16:55 Urine Opiates Screen Negative (NEGATIVE) 02/22/17 20:45 Urine Methadone Screen Negative (NEGATIVE) 02/22/17 20:45 Ur Barbiturates Screen Negative (NEGATIVE) 02/22/17 20:45 Ur Phencyclidine Scrn Negative (NEGATIVE) 02/22/17 20:45 Ur Amphetamines Screen Negative (NEGATIVE) 02/22/17 20:45 U Benzodiazepines Scrn Negative (NEGATIVE) 02/22/17 20:45 U Oth Cocaine Metabols Negative (NEGATIVE) 02/22/17 20:45 U Cannabinoids Screen Negative (NEGATIVE) 02/22/17 20:45 Alcohol, Quantitative < 10 mg/dL (0-10) 02/21/17 23:25 Attending/Attestation - Attestation I have personally seen and examined this patient.: Yes I have fully participated in the care of the patient.: Yes I have reviewed all pertinent clinical information, including history, physical exam and plan: Yes Notes (Text): 02/23/17 16:37 attending note; Patient seen and examined with resident. Patient is a 62-year-old male with past medical history of CAD s/p CABG and 4 stents, COPD, ETOH abuse, hx of tobacco abuse presents to the ED with chest pain. cardiac enzymes 3 negative. Echo normal. Cardiology evaluation appreciated. COPD; continue DuoNeb treatment. Smoking cessation strongly advised. Alcohol abuse; alcohol cessation is strongly advised. Follow-up with PMD Dr. Damon. Prognosis is poor secondary to noncompliance with follow-up and continuous smoking. Diagnosis; Chest pain COPD History of CABG/CAD Active smoking Noncompliance
--- NOTE | 2017-02-23 16:32 | PN ---
DATE: SUBJECTIVE: The patient is still experiencing sharp left-sided chest pain. He denies any shortness of breath. PHYSICAL EXAMINATION: VITAL SIGNS: Blood pressure 103/54, heart rate 56, temperature 97.7, and respirations 18. HEENT: Normocephalic. HEART: S1 and S2. Regular. CHEST: Bilateral rhonchi. EXTREMITIES: No edema. LABORATORY DATA: Urine drug screen is negative. Today's SMA-7 within normal limits. CK and troponins are negative. TSH level is elevated at 6.23. Official echo report reveal normal left ventricular systolic function with hypokinetic mid septum. ASSESSMENT: 1. Chest pain, myocardial infarction, ruled out. 2. Unlikely head fracture, as CAT scan revealed no evidence of fracture. 3. Coronary artery disease, status post coronary artery bypass surgery and chronic stenting in the past. 4. Chronic obstructive lung disease. RECOMMENDATIONS: The patient can be discharged from his chronic medical therapy, coated aspirin, Lipitor, Singulair, and thiamine. The patient was advised to refrain from lifting heavy boxes. Mike Young MD
== END 2017-02-23 13:22 | disposition home or self-care (01) ==
LOC: ED 16:16 → ERH 18:08 → 2RSO 21:07
PROVIDERS: ADMIT Internal Medicine; ATTEND Internal Medicine
DX: R07.89 Other chest pain (principal); I25.10 Atherosclerotic heart disease of native coronary artery without angina pectoris; I10 Essential (primary) hypertension; J44.9 Chronic obstructive pulmonary disease, unspecified; G62.9 Polyneuropathy, unspecified; K21.9 Gastro-esophageal reflux disease without esophagitis; F10.10 Alcohol abuse, uncomplicated; F32.9 Major depressive disorder, single episode, unspecified; F17.210 Nicotine dependence, cigarettes, uncomplicated; X50.0XXA Overexertion from strenuous movement or load, initial encounter; Z91.19 Patient's noncompliance with other medical treatment and regimen; Z79.82 Long term (current) use of aspirin; Z95.5 Presence of coronary angioplasty implant and graft; Z95.1 Presence of aortocoronary bypass graft; Z90.49 Acquired absence of other specified parts of digestive tract
CPT/HCPCS: 36415; 71010; 71250; 80053; 80061; 80320; 80324; 80345; 80346; 80349; 80353; 80358; 80361; 82550; 83036; 83615; 83735; 83992; 84100; 84443; 84484; 85025; 85027; 85610; 85730; 93005; 93306; 94640; 96360; 99285; G0378; J1650; J7040

== ENCOUNTER 2017-03-12 18:51 | Observation (INO) | payer MEDICAID ==
[2017-03-12 20:02] VITALS: O2SAT 97
[2017-03-12 20:06] LABS: ALB/GLOB RATIO 1.6 (1.1-1.8); ALKALINE PHOSPHATASE 76 U/L (38-133); ALT/SGPT 31 U/L (7-56); AST/SGOT 36 U/L (15-59); BILIRUBIN,TOTAL 0.5 mg/dL (0.2-1.3); BLOOD UREA NITROGEN 21 mg/dL (7-21); CALCIUM 9.1 mg/dL (8.4-10.5); CARBON DIOXIDE 24 mmol/L (21-33); CHLORIDE 100 mmol/L (98-107); GFR AFRICAN-AMERICAN > 60; GLUCOSE,RANDOM 80 mg/dL (70-110); POTASSIUM 4.6 mmol/L (3.6-5.0); SODIUM 136 mmol/L (132-148)
--- NOTE | 2017-03-12 20:08 | ED PDOC ---
Arrival/HPI - General Chief Complaint: Chest Pain Time Seen by Provider: 03/12/17 19:41 Historian: Patient - History of Present Illness Narrative History of Present Illness (Text): 03/12/17 20:02 A 62 year old male, whose past medical history includes COPD, CAD,cardiac stents , and alcohol abuse, presents to the emergency department complaining of chest pressure since earlier today. Patient reports while walking to the light rail he experienced chest pain, shortness of breath and diaphoresis. He states his symptoms have improved but was concerned so he came to the emergency room for evaluation. Patient denies any fever, chills, nausea, vomiting, diarrhea, abdominal pain, cough or any other complaints. Patient denies drug or alcohol use. Time/Duration: Other (earlier today) Symptom Course: Unchanged Quality: Other Context: Walking Past Medical History - Provider Review Nursing Documentation Reviewed: Yes - Past History Past History: No Previous - Infectious Disease Hx of Infectious Diseases: None - Tetanus Immunization Tetanus Immunization: Unknown - Reproductive Currently : No - Cardiac Hx Cardiac Disorders: Yes (MA) Hx Hypertension: Yes - Pulmonary Hx Respiratory Disorders: Yes Hx Bronchitis: Yes Hx Chronic Obstructive Pulmonary Disease (COPD): Yes Hx Tuberculosis: No - Neurological Hx Neurological Disorder: No (denies) - HEENT Hx HEENT Disorder: Yes Hx Cataracts: Yes Hx Glaucoma: Yes - Renal Hx Renal Disorder: No - Endocrine/Metabolic Hx Endocrine Disorders: No - Hematological/Oncological Hx Blood Disorders: Yes (blood transfusion) Hx Anemia: Yes Hx Cancer: No - Integumentary Hx Dermatological Disorder: No - Musculoskeletal/Rheumatological Hx Falls: Yes - Gastrointestinal Hx Gastrointestinal Disorders: Yes Hx Gall Bladder Disease: Yes (Gall stones removed) Hx Gastroesophageal Reflux: Yes - Genitourinary/Gynecological Hx Genitourinary Disorders: No Hx Sexually Transmitted Diseases: No - Psychiatric Hx Psychophysiologic Disorder: Yes (smoking ,drink alcohol) Hx Anxiety: Yes Hx Depression: Yes Hx Substance Use: No - Surgical History Hx Cardiac Catheterization: Yes Hx Cholecystectomy: (gallstones removed) Hx Coronary Stent: Yes (x5) Hx Open Heart Surgery: Yes - Anesthesia Hx Anesthesia: Yes Hx Anesthesia Reactions: No Hx Malignant Hyperthermia: No - Suicidal Assessment Feels Threatened In Home Enviroment: No Family/Social History - Physician Review Nursing Documentation Reviewed: Yes Family/Social History: No Known Family HX Smoking Status: Current Some Days Smoker Hx Alcohol Use: No Hx Substance Use: No Substance used: HEROIN, MARIJUANA Hx Substance Use Treatment: No Allergies/Home Meds Allergies/Adverse Reactions: Allergies shellfish derived Allergy (Verified 11/09/16 00:21) ANAPHYLAXIS Sulfa (Sulfonamide Antibiotics) Allergy (Verified 11/09/16 00:21) RASH Home Medications: Home Meds Medication Instructions Recorded Confirmed Albuterol HFA [Ventolin HFA 90 2 puff IH PRN PRN 02/21/17 02/21/17 mcg/actuation (8 g)] Albuterol/Ipratropium [Duoneb 3 3 ml IH PRN PRN 02/21/17 02/23/17 MG/3 Ml-0.5 MG/3 Ml 3 Ml] Aspirin [Adult Low Dose Aspirin EC] 81 mg PO DAILY 02/21/17 02/23/17 Carvedilol [Coreg] 3.125 mg PO BID 02/21/17 02/23/17 Fluticasone/Salmeterol 500/50 1 puff IH DAILY 02/21/17 02/23/17 [Advair Diskus 500/50] Isosorbide Mononitrate [Isosorbide 30 mg PO DAILY 02/21/17 02/23/17 Mononitrate ER] Montelukast Sodium [Singulair] 10 mg PO DAILY 02/21/17 02/23/17 Nitroglycerin [Nitrostat] 0.4 mg SL PRN PRN 02/21/17 02/23/17 Omeprazole 20 mg PO DAILY 02/21/17 02/23/17 Thiamine Mononitrate [Optimum 100 mg PO DAILY 02/21/17 02/23/17 Vitamin B-1] Review of Systems - Physician Review All systems were reviewed & negative as marked: Yes - Review of Systems Constitutional: absent: Fevers, Night Sweats Respiratory: SOB. absent: Cough Cardiovascular: Chest Pain Gastrointestinal: absent: Abdominal Pain, Diarrhea, Nausea, Vomiting Genitourinary Male: absent: Dysuria, Frequency, Hematuria, Urinary Output Changes Endocrine: Diaphoresis Physical Exam Vital Signs Reviewed: Yes Vital Signs Temp Pulse Pulse Resp BP Pulse Ox 03/12/17 19:50 80 03/12/17 19:00 98.1 F 78 15 113/62 97 Temperature: Afebrile Blood Pressure: Normal Pulse: Regular Respiratory Rate: Normal Appearance: Positive for: Well-Appearing, Non-Toxic, Comfortable Pain Distress: None Mental Status: Positive for: Alert and Oriented X 3 - Systems Exam Head: Present: Atraumatic, Normocephalic Pupils: Present: PERRL Extroacular Muscles: Present: EOMI Conjunctiva: Present: Normal Mouth: Present: Moist Mucous Membranes Pharnyx: Present: Normal. No: ERYTHEMA, EXUDATE, TONSILS ENLARGED Neck: Present: Normal Range of Motion Respiratory/Chest: Present: Clear to Auscultation, Good Air Exchange. No: Respiratory Distress, Accessory Muscle Use Cardiovascular: Present: Regular Rate and Rhythm, Normal S1, S2. No: Murmurs Abdomen: Present: Normal Bowel Sounds. No: Tenderness, Distention, Peritoneal Signs Back: Present: Normal Inspection Upper Extremity: Present: Normal Inspection. No: Cyanosis, Edema Lower Extremity: Present: Normal Inspection. No: Edema Neurological: Present: GCS=15, CN II-XII Intact, Speech Normal Skin: Present: Warm, Dry, Normal Color. No: Rashes Psychiatric: Present: Alert, Oriented x 3, Normal Insight, Normal Concentration Medical Decision Making ED Course and Treatment: 03/12/17 20:02 Impression: A 62 year old male with chest pressure, shortness of breath and diaphoresis. Physical exam unremarkable. Plan: -- Chest xray -- EKG -- Labs -- Reassess and disposition Progress Notes: EKG shows NSR at 85 BPM with normal intervals, normal EKG. Interpreted by me. 03/12/17 21:04 Reviewed radiology, CXR shows an 18 mm ill-defined opacity in right upper lobe, unchanged from previous CXR on 02/21/2017. 03/12/17 21:[address] Briggs, who is aware and agrees with plan. Accepts pt in to hospitalist service. Pt will go to Telemetry observation for chest pain. educational institution president notified. - Lab Interpretations Lab Results: 03/12/17 19:40 03/12/17 19:40 Lab Results 03/12/17 19:40: WBC 5.2 D, RBC 3.67, Hgb 12.0 L, Hct 35.6 L, MCV 97.0, MCH 32.7 , MCHC 33.7, RDW 13.0, Plt Count 227, MPV 9.1 03/12/17 19:40: Alcohol, Quantitative < 10 03/12/17 19:40: Sodium 136, Potassium 4.6, Chloride 100, Carbon Dioxide 24, Anion Gap 17, BUN 21, Creatinine 0.9, Est GFR ( Amer) > 60, Est GFR (Non- Af Amer) > 60, Random Glucose 80, Calcium 9.1, Total Bilirubin 0.5, AST 36, ALT 31, Alkaline Phosphatase 76, Lactate Dehydrogenase 369, Total Creatine Kinase 84 , Troponin I < 0.01, NT-Pro-B Natriuret Pep 97.9, Total Protein 7.0, Albumin 4.3 , Globulin 2.7, Albumin/Globulin Ratio 1.6 03/12/17 19:40: PT 11.0, INR 1.02, APTT 27.1 I have reviewed the lab results: Yes - RAD Interpretation Radiology Orders: 03/12/17 19:48 CHEST PORTABLE [RAD] Stat Brush Loader And Handle Attacher: ED Physician - EKG Interpretation Interpreted by ED Physician: Yes Type: 12 lead EKG - Medication Orders Current Medication Orders: Discontinued Medications Aspirin (Aspirin) 325 mg PO ONCE STA Stop: 03/12/17 20:15 Last Admin: 03/12/17 20:30 Dose: 325 mg - Scribe Statement The provider has reviewed the documentation as recorded by the Arina Orellana Provider Scribe Attestation: All medical record entries made by the Scribe were at my direction and personally dictated by me. I have reviewed the chart and agree that the record accurately reflects my personal performance of the history, physical exam, medical decision making, and the department course for this patient. I have also personally directed, reviewed, and agree with the discharge instructions and disposition. Disposition/Present on Arrival - Present on Arrival Any Indicators Present on Arrival: No History of DVT/PE: No History of Uncontrolled Diabetes: No Urinary Catheter: No History of Decub. Ulcer: No History Surgical Site Infection Following: None - Disposition Have Diagnosis and Disposition been Completed?: Yes Diagnosis: Chest pain Disposition: HOSPITALIZED Disposition Time: 22:00 Condition: STABLE Discharge Instructions (ExitCare): Chest Pain (ED) Referrals: Lauren Damon DO [Primary Care Provider] - Follow up with primary Forms: [employer] ([place])
[2017-03-12 20:10] LABS: HEMATOCRIT 35.6 % (42.0-52.0); INR 1.02 (0.93-1.08); MEAN CORPUSCULAR HEMOGLOBIN 32.7 pg (25.0-35.0); MEAN CORPUSCULAR HGB CONC 33.7 g/dl (31.0-37.0); MEAN PLATELET VOLUME 9.1 fl (7.0-11.0); PARTIAL THROMBOPLASTIN TIME 27.1 Seconds (23.7-30.8); WHITE BLOOD COUNT 5.2 10^3/ul (4.5-11.0)
[2017-03-12 20:19] LABS: TROPONIN I < 0.01 ng/mL
--- NOTE | 2017-03-12 22:34 | CP.PCM.HP ---
<Chris Pérez - Last Filed: 03/12/17 23:38> History of Present Illness - History of Present Illness History of Present Illness: CC: Chest pain HPI: Patient is a 62 year old male with past medical history significant for CAD w/ 4 stents, CABGx3 in 2005, HTN, tobacco abuse, COPD, depression, peripheral neuropathy, and etoh abuse who presents complaining of left sided chest pain that started earlier this evening. Patient reports he was walking down a flight of stairs when he began to experience sharp, left sided chest pain rated as 5/10 that was felt across his mid chest with radiation down his left arm. The patient states he became short of breath and mildly diaphoretic. Patient took nitroglycerin tab during episode and experienced minimal relief of symptoms. Patient reports he has not followed up with a grant officer after his last admission for chest pain earlier in the month. He denies cough, abdominal pain, fever, chills, or vomiting. 12 point ROS is negative except for findings in HPI PMHX: CAD w/ stents x4, COPD, ETOH abuse, HTN, depression, peripheral neuropathy , cholelithiasis PSH: right carotid endartectomy, cholecystectomy, coronary bypass Soc hx: daily smoker 4-5 cig daily , hx of drink a pint of vodka/whiskey daily last drink October, past marijuana and heroin abuse Allergies: sulfa medications & shellfish Meds: See MAR Family hx: DM, arthritis, and thyroid cancer Cabin Service Agent: None PMD: Dr. Damon Present on Admission - Present on Admission Any Indicators Present on Admission: No Urinary Catheter: No Decubitus Ulcer Present: No Review of Systems - Review of Systems All systems: reviewed and no additional remarkable complaints except Review of Systems: except for previously mentioned in HPI Past Patient History - Infectious Disease Hx of Infectious Diseases: None - Tetanus Immunizations Tetanus Immunization: Unknown - Past Medical History & Family History Past Medical History?: Yes - Past Social History Smoking Status: Current Some Days Smoker - CARDIAC Hx Cardiac Disorders: Yes (ME) Hx Hypertension: Yes - PULMONARY Hx Respiratory Disorders: Yes Hx Bronchitis: Yes Hx Chronic Obstructive Pulmonary Disease (COPD): Yes Hx Tuberculosis: No - NEUROLOGICAL Hx Neurological Disorder: No (denies) - HEENT Hx HEENT Problems: Yes Hx Cataracts: Yes Hx Glaucoma: Yes - RENAL Hx Chronic Kidney Disease: No - ENDOCRINE/METABOLIC Hx Endocrine Disorders: No - HEMATOLOGICAL/ONCOLOGICAL Hx Blood Disorders: Yes (blood transfusion) Hx Anemia: Yes Hx Cancer: No - INTEGUMENTARY Hx Dermatological Problems: No - MUSCULOSKELETAL/RHEUMATOLOGICAL Hx Falls: Yes - GASTROINTESTINAL Hx Gastrointestinal Disorders: Yes Hx Gall Bladder Disease: Yes (Gall stones removed) Hx Gastroesophageal Reflux: Yes - GENITOURINARY/GYNECOLOGICAL Hx Genitourinary Disorders: No Hx Sexually Transmitted Disorders: No - PSYCHIATRIC Hx Psychophysiologic Disorder: Yes (smoking ,drink alcohol) Hx Anxiety: Yes Hx Depression: Yes Hx Substance Use: No - SURGICAL HISTORY Hx Cardiac Catheterization: Yes Hx Cholecystectomy: (gallstones removed) Hx Coronary Stent: Yes (x5) Hx Open Heart Surgery: Yes - ANESTHESIA Hx Anesthesia: Yes Hx Anesthesia Reactions: No Hx Malignant Hyperthermia: No Meds Allergies/Adverse Reactions: Allergies Allergy/AdvReac Type Severity Reaction Status Date / Time shellfish derived Allergy ANAPHYLAXIS Verified 11/09/16 00:21 Sulfa (Sulfonamide Allergy RASH Verified 11/09/16 00:21 Antibiotics) Physical Exam - Head Exam Head Exam: ATRAUMATIC, NORMAL INSPECTION, NORMOCEPHALIC - Eye Exam Eye Exam: EOMI, PERRL - ENT Exam ENT Exam: Mucous Membranes Moist - Neck Exam Neck exam: Positive for: Full Rom - Respiratory Exam Respiratory Exam: Decreased Breath Sounds, Clear to Auscultation Bilateral, Wheezes (expiratory bilateral ), NORMAL BREATHING PATTERN. absent: Respiratory Distress - Cardiovascular Exam Cardiovascular Exam: REGULAR RHYTHM, +S1, +S2 - GI/Abdominal Exam GI & Abdominal Exam: Normal Bowel Sounds, Soft - Extremities Exam Extremities exam: Positive for: normal inspection, pedal pulses present. Negative for: calf tenderness, pedal edema - Back Exam Back exam: NORMAL INSPECTION - Neurological Exam Neurological exam: Alert, CN II-XII Intact, Oriented x3, Reflexes Normal - Psychiatric Exam Psychiatric exam: Normal Affect, Normal Mood - Skin Skin Exam: Diaphoretic (mild), Dry, Intact, Warm Results - Vital Signs Recent Vital Signs: Last Vital Signs Temp 98.1 F 03/12/17 19:00 Pulse 80 03/12/17 19:50 Resp 15 03/12/17 19:00 BP 113/62 03/12/17 19:00 Pulse Ox 97 03/12/17 19:00 - Labs Result Diagrams: 03/12/17 19:40 03/12/17 19:40 Labs: Laboratory Results - last 24 hr 03/12/17 03/12/17 03/12/17 19:40 19:40 19:40 WBC RBC Hgb Hct MCV MCH MCHC RDW Plt Count MPV PT 11.0 INR 1.02 APTT 27.1 Sodium 136 Potassium 4.6 Chloride 100 Carbon Dioxide 24 Anion Gap 17 BUN 21 Creatinine 0.9 Est GFR ( Amer) > 60 Est GFR (Non-Af Amer) > 60 Random Glucose 80 Calcium 9.1 Total Bilirubin 0.5 AST 36 ALT 31 Alkaline Phosphatase 76 Lactate Dehydrogenase 369 Total Creatine Kinase 84 Troponin I < 0.01 NT-Pro-B Natriuret Pep 97.9 Total Protein 7.0 Albumin 4.3 Globulin 2.7 Albumin/Globulin Ratio 1.6 Alcohol, Quantitative < 10 03/12/17 19:40 WBC 5.2 D RBC 3.67 Hgb 12.0 L Hct 35.6 L MCV 97.0 MCH 32.7 MCHC 33.7 RDW 13.0 Plt Count 227 MPV 9.1 PT INR APTT Sodium Potassium Chloride Carbon Dioxide Anion Gap BUN Creatinine Est GFR ( Amer) Est GFR (Non-Af Amer) Random Glucose Calcium Total Bilirubin AST ALT Alkaline Phosphatase Lactate Dehydrogenase Total Creatine Kinase Troponin I NT-Pro-B Natriuret Pep Total Protein Albumin Globulin Albumin/Globulin Ratio Alcohol, Quantitative Assessment & Plan (1) Chest pain Status: Acute - Assessment and Plan (Free Text) Assessment: Pt is a 62 year old male with past medical history significant for CAD s/p 4 stents, CABG x3, HTN, COPD, tobacco abuse, etoh abuse, depression and peripheral neuropathy who presented with one episode of chest pain with relief from nitro tab. He is being admitted for further observation and trending of his troponins. 1. Chest pain r/o ACS - Patient with notable past cardiac medical history - EKG showing no ST elevation/depression, T wave inversions compared to old EKG - Trops x 1 negative, continue to trend troponins x2 - Aspirin 325 given in the ED and daily Aspirin 81mg - Cont home Carvedilol - Consider Cardiology consult - CBC, CMP, Mg, Phos 2. COPD - Cont duoneb, Brovana, Pulmicort - O2 NC 2L prn with goal of SaO2 90-94% 3. Hx of HTN - stable - Continue home meds 4. GI/DVT ppx - Pepcid and SCDs - Date & Time Date: 03/12/17 Time: 11:00 <Chetan Briggs Q - Last Filed: 03/13/17 06:55> Results - Vital Signs Recent Vital Signs: Last Vital Signs Temp 97.7 F 03/13/17 06:00 Pulse 64 03/13/17 06:00 Resp 18 03/13/17 06:00 BP 105/47 L 03/13/17 06:00 Pulse Ox 97 03/13/17 06:00 - Labs Result Diagrams: 03/12/17 19:40 03/12/17 19:40 Labs: Laboratory Results - last 24 hr 03/13/17 03/13/17 01:35 04:33 POC Glucose (mg/dL) 133 H Troponin I < 0.01 Attending/Attestation - Attestation I have personally seen and examined this patient.: Yes I have fully participated in the care of the patient.: Yes I have reviewed all pertinent clinical information: Yes
[2017-03-12] MEDS ORDERED: Albuterol-Ipratrop 3 mg / 0.5 (3 ml) UD IH PRN (22:57)
[2017-03-12] MEDS ORDERED: Albuterol HFA 90 mcg/actuation (8 g) IH PRN (22:57)
[2017-03-12] MEDS ORDERED: Albuterol 0.083% Inhal Sol (2.5 mg/3 mL) UD IH PRN (23:28)
[2017-03-13] MEDS ORDERED: Albuterol-Ipratrop 3 mg / 0.5 (3 ml) UD IH PRN
[2017-03-13 00:28] VITALS: RESP 18; BMI 23.4
[2017-03-13] MEDS ORDERED: Sodium Chloride 0.9% 500 ML IV STA (04:43)
[2017-03-13 07:11] LABS: MAGNESIUM 2.1 mg/dL (1.7-2.2); PHOSPHOROUS 3.6 mg/dL (2.5-4.5)
--- NOTE | 2017-03-13 07:33 | RAD ---
HISTORY: chest pain COMPARISON: CT chest 02/23/2000 and 17, chest portable 02/21/2017 and 11/04/2016 FINDINGS: LUNGS: No active pulmonary disease. PLEURA: Minimal left pleural thickening likely borders the multiple left posterior lateral subacute to chronic appearing fractures. No pneumothorax apparent. CARDIOVASCULAR: Status post midline sternotomy with coronary artery bypass clips and stents. Heart size -normal OSSEOUS STRUCTURES: Multiple left posterolateral rib fractures with callus formation-subacute to chronic appearing estimated to be BHAVESH 7th through 10th ribs. There are persistent lucencies through the fractured sites VISUALIZED UPPER ABDOMEN: Cholecystectomy clips OTHER FINDINGS: Right asymmetrical hyperdense hypertrophic coaster cartilaginous junctional calcification/ossification IMPRESSION: Multiple left posterior lateral subacute (to chronic) rib fractures estimated 7th through 10th ribs. No significant displacement. No pneumothorax. Minimal contiguous left pleural reaction inferred No interval infiltrate.
[2017-03-13 07:55] LABS: ALB/GLOB RATIO 1.5 (1.1-1.8); ALKALINE PHOSPHATASE 62 U/L (38-133); ALT/SGPT 23 U/L (7-56); AST/SGOT 35 U/L (15-59); BILIRUBIN,TOTAL 0.3 mg/dL (0.2-1.3); BLOOD UREA NITROGEN 20 mg/dL (7-21); CALCIUM 8.8 mg/dL (8.4-10.5); CARBON DIOXIDE 27 mmol/L (21-33); CHLORIDE 102 mmol/L (98-107); GFR AFRICAN-AMERICAN > 60; GLUCOSE,RANDOM 106 mg/dL (70-110); POTASSIUM 3.7 mmol/L (3.6-5.0); SODIUM 139 mmol/L (132-148); TOTAL PROTEIN 6.2 g/dL (5.8-8.3)
[2017-03-13] MEDS ORDERED: Arformoterol 15 mcg/2 ml Inh Sol IH SCH (08:00)
[2017-03-13] MEDS ORDERED: Budesonide 0.5 mg/2 ml Inhal Susp UD IH SCH (08:00)
[2017-03-13 08:05] LABS: BASO # 0.02 K/mm3 (0.0-2.0); BASO % 0.4 % (0.0-3.0); EOS # 0.2 (0.0-0.7); EOS % 5.1 % (1.5-5.0); GRAN # 1.93 (1.4-6.5); GRAN % 42.4 % (50.0-68.0); HEMATOCRIT 33.4 % (42.0-52.0); LYMPH # 1.8 (1.2-3.4); LYMPH % 39.8 % (22.0-35.0); MEAN CELL VOLUME 97.7 fl (80.0-105.0); MEAN CORPUSCULAR HEMOGLOBIN 32.2 pg (25.0-35.0); MEAN CORPUSCULAR HGB CONC 32.9 g/dl (31.0-37.0); MEAN PLATELET VOLUME 9.2 fl (7.0-11.0); MONO # 0.6 (0.1-0.6); MONO % 12.3 % (1.0-6.0); RED CELL DISTRIBUTION WIDTH 13.1 % (11.5-14.5); WHITE BLOOD COUNT 4.6 10^3/ul (4.5-11.0)
[2017-03-13 11:39] VITALS: BP 109/56; PULSE 62; TEMP 97.4
--- NOTE | 2017-03-13 11:57 | CP.PCM.DIS ---
Provider - Provider Date of Admission: 03/12/17 21:55 Attending physician: Ministerio Dickerson MD Primary care physician: Lauren Damon DO Consults: Cardiology: Dr Young Time Spent in preparation of Discharge (in minutes): 31 Hospital Course - Lab Results Lab Results: Most Recent Lab Values WBC 4.6 10^3/ul (4.5-11.0) 03/13/17 06:30 RBC 3.42 10^6/uL (3.5-6.1) L 03/13/17 06:30 Hgb 11.0 g/dL (14.0-18.0) L 03/13/17 06:30 Hct 33.4 % (42.0-52.0) L 03/13/17 06:30 MCV 97.7 fl (80.0-105.0) 03/13/17 06:30 MCH 32.2 pg (25.0-35.0) 03/13/17 06:30 MCHC 32.9 g/dl (31.0-37.0) 03/13/17 06:30 RDW 13.1 % (11.5-14.5) 03/13/17 06:30 Plt Count 192 10^3/uL (120.0-450.0) 03/13/17 06:30 MPV 9.2 fl (7.0-11.0) 03/13/17 06:30 Gran % 42.4 % (50.0-68.0) L 03/13/17 06:30 Lymph % (Auto) 39.8 % (22.0-35.0) H 03/13/17 06:30 Dent % (Auto) 12.3 % (1.0-6.0) H 03/13/17 06:30 Eos % (Auto) 5.1 % (1.5-5.0) H 03/13/17 06:30 Baso % (Auto) 0.4 % (0.0-3.0) 03/13/17 06:30 Gran # 1.93 (1.4-6.5) 03/13/17 06:30 Lymph # 1.8 (1.2-3.4) 03/13/17 06:30 Dent # 0.6 (0.1-0.6) 03/13/17 06:30 Eos # 0.2 (0.0-0.7) 03/13/17 06:30 Baso # 0.02 K/mm3 (0.0-2.0) 03/13/17 06:30 PT 11.0 Seconds (9.9-11.8) 03/12/17 19:40 INR 1.02 (0.93-1.08) 03/12/17 19:40 APTT 27.1 Seconds (23.7-30.8) 03/12/17 19:40 Sodium 139 mmol/L (132-148) 03/13/17 06:30 Potassium 3.7 mmol/L (3.6-5.0) 03/13/17 06:30 Chloride 102 mmol/L (98-107) 03/13/17 06:30 Carbon Dioxide 27 mmol/L (21-33) 03/13/17 06:30 Anion Gap 14 (10-20) 03/13/17 06:30 BUN 20 mg/dL (7-21) 03/13/17 06:30 Creatinine 1.0 mg/dL (0.5-1.4) 03/13/17 06:30 Est GFR ( Amer) > 60 03/13/17 06:30 Est GFR (Non-Af Amer) > 60 03/13/17 06:30 POC Glucose (mg/dL) 133 mg/dL (65-110) H 03/13/17 04:33 Random Glucose 106 mg/dL (70-110) 03/13/17 06:30 Calcium 8.8 mg/dL (8.4-10.5) 03/13/17 06:30 Phosphorus 3.6 mg/dL (2.5-4.5) 03/13/17 06:15 Magnesium 2.1 mg/dL (1.7-2.2) 03/13/17 06:15 Total Bilirubin 0.3 mg/dL (0.2-1.3) 03/13/17 06:30 AST 35 U/L (15-59) 03/13/17 06:30 ALT 23 U/L (7-56) 03/13/17 06:30 Alkaline Phosphatase 62 U/L (38-133) 03/13/17 06:30 Lactate Dehydrogenase 369 U/L (333-699) 03/12/17 19:40 Total Creatine Kinase 84 U/L (35-230) 03/12/17 19:40 Troponin I < 0.01 ng/mL 03/13/17 06:15 NT-Pro-B Natriuret Pep 97.9 pg/mL (0-450) 03/12/17 19:40 Total Protein 6.2 g/dL (5.8-8.3) 03/13/17 06:30 Albumin 3.7 g/dL (3.0-4.8) 03/13/17 06:30 Globulin 2.5 gm/dL 03/13/17 06:30 Albumin/Globulin Ratio 1.5 (1.1-1.8) 03/13/17 06:30 Alcohol, Quantitative < 10 mg/dL (0-10) 03/12/17 19:40 - Hospital Course Hospital Course: Patient is a 62 year old male with past medical history significant for CAD w/ 4 stents, CABGx3 in 2005, HTN, tobacco abuse, COPD, depression, peripheral neuropathy, and etoh abuse who presents complaining of left sided chest pain that started earlier this evening. Patient reports he was walking down a flight of stairs when he began to experience sharp, left sided chest pain rated as 5/ 10 that was felt across his mid chest with radiation down his left arm. The patient states he became short of breath and mildly diaphoretic. Patient took nitroglycerin tab during episode and experienced minimal relief of symptoms. Patient reports he has not followed up with a chief telephone operator after his last admission for chest pain earlier in the month. He denies cough, abdominal pain, fever, chills, or vomiting. 12 point ROS is negative except for findings in HPI Patient was admitted and monitored on telemetry. Patient was given ASA 325mg in the ED, EKG showed NSR. Troponins were negative x 3. Cardiology was consulted and on the case. Patient was also started on home medications. ACS was ruled out. An echocardiogram from previous admission showed normal LV function with normal LV function except for mid septum hyopkinesis. On day of discharge, patient reports that chest pain improved. Patient was medically stable for discharge. Patient instructed to continue home medications and to follow up with PMD within 1 week. Patient also to follow up with chief telephone operator of his choosing as an outpatient within 1 week. Patient encouraged to quit tobacco and alcohol use. All questions and concerns were addressed. Discharge Exam - Head Exam Head Exam: ATRAUMATIC, NORMAL INSPECTION, NORMOCEPHALIC - Eye Exam Eye Exam: EOMI, Normal appearance Pupil Exam: NORMAL ACCOMODATION - ENT Exam ENT Exam: Mucous Membranes Moist - Neck Exam Neck exam: Full Rom - Respiratory Exam Respiratory Exam: Clear to PA & Lateral, Rales, Rhonchi, NORMAL BREATHING PATTERN. absent: Wheezes, Respiratory Distress - Cardiovascular Exam Cardiovascular Exam: REGULAR RHYTHM, +S1, +S2 - GI/Abdominal Exam GI & Abdominal Exam: Normal Bowel Sounds, Soft. absent: Guarding, Rebound, Rigid - Extremities Exam Extremities exam: normal inspection, pedal pulses present - Back Exam Back exam: NORMAL INSPECTION - Neurological Exam Neurological exam: Alert, CN II-XII Intact, Oriented x3 - Psychiatric Exam Psychiatric exam: Normal Affect, Normal Mood - Skin Skin Exam: Dry, Normal Color, Warm Discharge Plan - Follow Up Plan Condition: STABLE Disposition: HOME/ ROUTINE Additional Instructions: Patient is clear for discharge home. Patient to continue home medications as prescribed. Patient to follow up with Bottle Washing Machine Operator of his choosing within 1 week. Also to follow up with PMD within 1 week. Referrals: Lauren Damon DO [Primary Care Provider] -
--- NOTE | 2017-03-13 17:16 | CARD ---
APPROVED REPORT EKG Measurement Heart [id number] <Conclusion> Normal sinus rhythm Normal ECG
--- NOTE | 2017-03-13 23:06 | CON ---
DATE: 03/13/2017 REASON FOR CONSULTATION: Chest pain. HISTORY OF PRESENT ILLNESS: The patient is 62 years old male, who is a smoker, has history of ETOH abuse and has history of coronary artery disease, underwent triple bypass surgery in 2006 at [facility] and history of multiple coronary stenting in the past and history of multiple admissions for chest pain. The patient's most recent Myoview stress test was performed in October 2015, which reported normal SPECT myocardial perfusion study with normal overall left ventricular systolic function despite paradoxical septal wall motion. The patient presented with chest discomfort that he is unable to characterize, but denies any radiation of chest pain. The patient is currently chest pain-free. SOCIAL HISTORY: Patient is smoker and drinker. MEDICATIONS: 1. Brovana 15 mcg inhalation q. 12 hours. 2. Coreg 3.125 mg twice a day. 3. Albuterol inhaler. 4. Aspirin 81 mg once a day. 5. Imdur 30 mg once a day. 6. Pepcid 20 p.o. twice a day. 7. Sublingual nitroglycerin p.r.n. PHYSICAL EXAMINATION: GENERAL: The patient is a middle-aged male, who does not appear to be in any distress. VITAL SIGNS: Blood pressure 105/59, heart rate 61, temperature 97.7, respirations 18. HEENT: Normocephalic. NECK: No JVD. CHEST: Bilateral rhonchi. HEART: S1 and S2 regular. ABDOMEN: Soft. EXTREMITIES: No edema. LABORATORY DATA: Hemoglobin and hematocrit 11 and 33.4, white count and platelet count are within normal limits. SMA-7 is within normal limits. Three sets of troponins are negative. Alcohol level is below 10. PT, PTT and INR are within normal limits. ECG revealed sinus rhythm at a rate of 85, early repolarization pattern. Chest x-ray is consistent with COPD with prominent bronchovascular markings. ASSESSMENT: 1. Atypical chest pain, myocardial infarction ruled out. 2. Chronic obstructive lung disease. 3. History of depression. 4. ETOH abuse. RECOMMENDATIONS: I did review the most recent echocardiographic study performed on 02/22/2017, which revealed normal ejection fraction and normal wall segmental wall motion except the mid septum appears to be hypokinetic. Continue current conservative medical approach including Coreg, aspirin, and bronchodilators. Start subcutaneous Lovenox mg daily for DVT prophylaxis. Mike Young MD
--- NOTE | 2017-03-14 03:29 | CON ---
DATE: 03/13/2017 LOCATION: Room 268, bed 1. REASON FOR CONSULTATION: Chest pain. HISTORY OF PRESENT ILLNESS: A 62-year-old male who is known to have coronary artery disease, status post coronary artery bypass surgery, history of 4 stents insertion, COPD, peripheral neuropathy, tobacco abuse, and ethanol abuse, admitted with a sharp chest pain, which gets worse by movement side to side and also when he coughs or takes deep breath, it gets worse. The patient also has local tenderness at the area of the chest pain. The patient has very poor compliance. The patient last stress test was 11/18/2015, and it was normal with a normal LV ejection fraction of 62%. PAST MEDICAL HISTORY: Positive for coronary artery disease, CABG and 4 stents, COPD, hypertension, depression, peripheral neuropathy, right carotid surgery, and cholecystectomy. PERSONAL HISTORY: He used to smoke 3 to 4 packs a day, now he states that he smokes 4 to 5 cigarettes a day. He used to drink heavy, but he says that for 4 months he has stopped drinking. ALLERGIES: THE PATIENT IS ALLERGIC TO SULFA AND SHELLFISH. FAMILY HISTORY: Positive for thyroid cancer, arthritis, and diabetes mellitus. REVIEW OF SYSTEMS: All the systems are reviewed. Positive mentioned in history. Otherwise negative. MEDICATIONS AT HOME: Included aspirin 81 mg daily, isosorbide mononitrate 30 daily, Coreg 3.125 b.i.d., omeprazole 20 mg daily, Singulair 10 mg daily, Advair Diskus 500/50 one puff daily, Pulmicort Respules 1 mg inhalation 12 hourly, Brovana 15 mcg inhalation q 12 hours. PHYSICAL EXAMINATION: VITAL SIGNS: Blood pressure is 105/59, respirations 18, pulse 64, temperature 97.7. HEENT: Head is normocephalic. Eyes: Pupils normal. Conjunctivae normal. NECK: JVP low, carotids equal. Thorax, AP diameter normal. CHEST: The patient has tenderness on the lower chest anteriorly at the point where he complains of pain. ABDOMEN: Soft, nontender. No organomegaly. Bowel sound normal. EXTREMITIES: No clubbing. No cyanosis. LABORATORY DATA: WBC 4.0, hemoglobin 11.0, hematocrit 33.4, platelets 192. Sodium 139, potassium 3.7, BUN 20, creatinine 1.0. AST and ALT normal. Total protein were all normal. Troponin x3 negative. EKG showed normal sinus rhythm. Chest x-ray, old rib fractures 7th through 10th rib, no displacement. DIAGNOSES: 1. Chest pain, musculoskeletal pain at this moment. 2. History of coronary artery disease, status post coronary artery bypass graft, status post stent insertion. 3. Hypertension. 4. History of right carotid endarterectomy. 5. Chronic obstructive pulmonary disease. 6. Peripheral neuropathy. 7. Ethanol abuse, smoker. PLAN: The patient as mentioned above had a stress test on 11/18/2015, which was normal with ejection fraction 62%. The patient's chest pain now is musculoskeletal, so treated symptomatically and continue the medication which the patient was taking home as mentioned above in my history which is aspirin 81 mg daily, isosorbide mononitrate 30 daily, Coreg 3.125 b.i.d., omeprazole 20 mg daily, Singulair 10 mg daily, Advair Diskus 500/50 one puff daily, Pulmicort Respules 1 mg inhalation 12 hourly, Brovana 15 mcg inhalation q 12 hours, and the patient was again said to stop smoking and not to drink and follow regularly, but the patient is a very poor compliant patient and he does not follow up. Flor Crocker MD
== END 2017-03-13 16:53 | disposition home or self-care (01) ==
LOC: ED 18:51 → ERH 21:55 → 2RNO 23:45
PROVIDERS: ADMIT Internal Medicine; ATTEND Internal Medicine
DX: R07.89 Other chest pain (principal); F10.10 Alcohol abuse, uncomplicated; F17.210 Nicotine dependence, cigarettes, uncomplicated; F32.89 Other specified depressive episodes; G62.9 Polyneuropathy, unspecified; H40.9 Unspecified glaucoma; I10 Essential (primary) hypertension; I25.10 Atherosclerotic heart disease of native coronary artery without angina pectoris; J44.9 Chronic obstructive pulmonary disease, unspecified; K21.9 Gastro-esophageal reflux disease without esophagitis; Z79.82 Long term (current) use of aspirin; Z79.899 Other long term (current) drug therapy; Z90.49 Acquired absence of other specified parts of digestive tract; Z95.5 Presence of coronary angioplasty implant and graft; Z95.1 Presence of aortocoronary bypass graft; Z80.8 Family history of malignant neoplasm of other organs or systems; Z83.3 Family history of diabetes mellitus; Z82.61 Family history of arthritis; H26.9 Unspecified cataract; D64.9 Anemia, unspecified; Z88.2 Allergy status to sulfonamides; Z91.013 Allergy to seafood; R40.2412 Glasgow coma scale score 13-15, at arrival to emergency department
CPT/HCPCS: 36415; 71010; 80053; 80320; 82550; 82948; 83615; 83735; 83880; 84100; 84484; 85025; 85027; 85610; 85730; 93005; 94640; 99285; G0378; J7040

== ENCOUNTER 2017-04-02 17:27 | Inpatient (IN) | payer MEDICAID ==
[2017-04-02 17:27] VITALS: BMI 23.4
--- NOTE | 2017-04-02 17:47 | ED PDOC ---
Arrival/HPI - General Historian: Patient - History of Present Illness Time/Duration: Other (see hpi) Quality: Other (sharp) Context: Home <Eliezer Orosco - Last Filed: 04/02/17 19:57> <Dolly Falcon - Last Filed: 04/02/17 21:32> - General Time Seen by Provider: 04/02/17 17:36 - History of Present Illness Narrative History of Present Illness (Text): 04/02/17 17:47 This 62 year old male, whose past medical history includes COPD, CAD,cardiac stents, and alcohol abuse, presents to the emergency department complaining of chest pressure since earlier today x 5 1/2 hours. Patient stated he took a nitroglycerine tab, which improved his CP. Patient stated symptoms return again x 2 1/2 hours ago. Pain is described as "sharp pain". Patient also noted SOB, cough. Patient denies dizziness, n/v, abnormal gait, weakness, paresthesias, abdominal pain, trauma, fall, or fever. (Eliezer Orosco) Past Medical History - Provider Review Nursing Documentation Reviewed: Yes - Past History Past History: No Previous - Infectious Disease Hx of Infectious Diseases: None - Tetanus Immunization Tetanus Immunization: Unknown - Reproductive Currently : No - Cardiac Hx Cardiac Disorders: Yes ([place]) Hx Hypertension: Yes - Pulmonary Hx Respiratory Disorders: Yes Hx Bronchitis: Yes Hx Chronic Obstructive Pulmonary Disease (COPD): Yes Hx Tuberculosis: No - Neurological Hx Neurological Disorder: No (denies) - HEENT Hx HEENT Disorder: Yes Hx Cataracts: Yes Hx Glaucoma: Yes - Renal Hx Renal Disorder: No - Endocrine/Metabolic Hx Endocrine Disorders: No - Hematological/Oncological Hx Blood Disorders: Yes (blood transfusion) Hx Anemia: Yes Hx Cancer: No - Integumentary Hx Dermatological Disorder: No - Musculoskeletal/Rheumatological Hx Falls: Yes - Gastrointestinal Hx Gastrointestinal Disorders: Yes Hx Gall Bladder Disease: Yes (Gall stones removed) Hx Gastroesophageal Reflux: Yes - Genitourinary/Gynecological Hx Genitourinary Disorders: No Hx Sexually Transmitted Diseases: No - Psychiatric Hx Psychophysiologic Disorder: Yes (smoking ,drink alcohol) Hx Anxiety: Yes Hx Depression: Yes Hx Substance Use: Yes (Cocaine: last time ) - Surgical History Hx Cardiac Catheterization: Yes Hx Cholecystectomy: (gallstones removed) Hx Coronary Stent: Yes (x5) Hx Open Heart Surgery: Yes - Anesthesia Hx Anesthesia: Yes Hx Anesthesia Reactions: No Hx Malignant Hyperthermia: No - Suicidal Assessment Feels Threatened In Home Enviroment: No <Eliezer Orosco - Last Filed: 04/02/17 19:57> Family/Social History - Physician Review Nursing Documentation Reviewed: Yes Family/Social History: Other (non-contributory) Smoking Status: Light Smoker < 10 Cigarettes Daily Hx Alcohol Use: Yes (Last drink 3 months ago) Hx Substance Use: Yes (Cocaine: last time ) Substance used: HEROIN, MARIJUANA Hx Substance Use Treatment: No <Eliezer Orosco P - Last Filed: 04/02/17 19:57> Allergies/Home Meds <Eliezer Orosco - Last Filed: 04/02/17 19:57> <Dolly Falcon - Last Filed: 04/02/17 21:32> Allergies/Adverse Reactions: Allergies shellfish derived Allergy (Verified 11/09/16 00:21) ANAPHYLAXIS Sulfa (Sulfonamide Antibiotics) Allergy (Verified 11/09/16 00:21) RASH Home Medications: Home Meds Medication Instructions Recorded Confirmed Albuterol HFA [Ventolin HFA 90 2 puff IH PRN PRN 02/21/17 04/02/17 mcg/actuation (8 g)] Aspirin [Adult Low Dose Aspirin EC] 81 mg PO DAILY 02/21/17 04/02/17 Carvedilol [Coreg] 3.125 mg PO BID 02/21/17 04/02/17 Fluticasone/Salmeterol 500/50 1 puff IH DAILY 02/21/17 04/02/17 [Advair Diskus 500/50] Isosorbide Mononitrate [Isosorbide 30 mg PO DAILY 02/21/17 04/02/17 Mononitrate ER] Montelukast Sodium [Singulair] 10 mg PO DAILY 02/21/17 04/02/17 Nitroglycerin [Nitrostat] 0.4 mg SL PRN PRN 02/21/17 04/02/17 Omeprazole 20 mg PO DAILY 02/21/17 04/02/17 Thiamine Mononitrate [Vitamin B-1] 100 mg PO DAILY 02/21/17 04/02/17 Review of Systems - Review of Systems Constitutional: Normal. absent: Fatigue, Weight Change, Fevers Eyes: Normal ENT: Normal Respiratory: Normal, SOB, Cough, Wheezing Cardiovascular: Chest Pain. absent: Palpitations, Edema, Calf Pain, Orthopnea, Syncope Gastrointestinal: Normal. absent: Abdominal Pain, Nausea, Vomiting Genitourinary Male: Normal Musculoskeletal: Normal Skin: Normal Neurological: absent: Focal Weakness, Gait Changes, Speech Changes, Facial Droop , Disequilibrium Endocrine: Normal Hemo/Lymphatic: Normal Psychiatric: Normal [facility] - Last Filed: 04/02/17 19:57> Physical Exam Temperature: Afebrile Blood Pressure: Normal Pulse: Regular Respiratory Rate: Normal Appearance: Positive for: Well-Appearing, Non-Toxic, Comfortable Pain Distress: None Mental Status: Positive for: Alert and Oriented X 3 - Systems Exam Head: Present: Atraumatic, Normocephalic Pupils: Present: PERRL Extroacular Muscles: Present: EOMI Conjunctiva: Present: Normal Mouth: Present: Moist Mucous Membranes Neck: Present: Normal Range of Motion Respiratory/Chest: Present: Good Air Exchange, Decreased Breath Sounds, Rhonchi. No: Respiratory Distress, Accessory Muscle Use, Wheezes, Rales, Retracting, Tachypneic, Tender to Palpation Cardiovascular: Present: Regular Rate and Rhythm, Normal S1, S2. No: Murmurs Abdomen: Present: Normal Bowel Sounds. No: Tenderness, Distention, Peritoneal Signs Back: Present: Normal Inspection Upper Extremity: Present: Normal Inspection, Normal ROM, NORMAL PULSES, Capillary Refill < 2s. No: Cyanosis, Edema Lower Extremity: Present: Normal Inspection, NORMAL PULSES, Normal ROM, Neurovascularly Intact, Capillary Refill < 2 s. No: Edema, CALF TENDERNESS Neurological: Present: GCS=15, CN II-XII Intact, Speech Normal, Motor Func Grossly Intact, Normal Cerebellar Funct Skin: Present: Warm, Dry, Normal Color. No: Rashes Psychiatric: Present: Alert, Oriented x 3, Normal Insight, Normal Concentration <[facility] - Last Filed: 04/02/17 19:57> Medical Decision Making Re-evaluation Time: 19:45 Reassessment Condition: Re-examined, Improving,but remains with symptoms - Lab Interpretations I have reviewed the lab results: Yes Interpretation: Abnormal lab values (hyperkalemia) - EKG Interpretation Interpreted by ED Physician: Yes (NSR @ [address] changes) Type: 12 lead EKG Comparison: Similar to previous EKG <Eliezer Orosco - Last Filed: 04/02/17 19:57> <Dolly Falcon - Last Filed: 04/02/17 21:32> ED Course and Treatment: 04/02/17 19:44 Dr. Falcon spoke with house physician regrading patient c/o CP. She agrees with plan for observation. (Eliezer Orosco) 04/02/17 21:31 Seen and examined. Case discussed with Dr. Sydney Roth for placement on observation on tele. (Dolly Falcon) - Lab Interpretations Lab Results: 04/02/17 18:10 04/02/17 18:10 Lab Results 04/02/17 18:32: pCO2 39, pO2 125.0 H, HCO3 27.1, ABG pH 7.45, ABG Total CO2 28.3 H, ABG O2 Saturation 99.8 H, ABG Base Excess 3.0, ABG Potassium 4.7, Glucose 86, Lactate 0.4 L, FiO2 32.0, Sodium 136.0, Chloride 107.0, Arterial Blood Potassium 4.7 04/02/17 18:10: Sodium 135, Potassium 5.3 H, Chloride 99, Carbon Dioxide 30, Anion Gap 11, BUN 20, Creatinine 1.0, Est GFR ( Amer) > 60, Est GFR (Non- Af Amer) > 60, Random Glucose 84, Calcium 9.1, Magnesium 1.9, Total Bilirubin 0.5, AST 42, ALT 28, Alkaline Phosphatase 74, Lactate Dehydrogenase 380, Total Creatine Kinase 172, Troponin I < 0.01, NT-Pro-B Natriuret Pep 156, Total Protein 7.1, Albumin 4.3, Globulin 2.8, Albumin/Globulin Ratio 1.5 04/02/17 18:10: PT 10.7, INR 0.99, APTT 26.7 04/02/17 18:10: WBC 5.0, RBC 3.67, Hgb 12.0 L, Hct 36.1 L, MCV 98.4, MCH 32.7, MCHC 33.2, RDW 13.1, Plt Count 240, MPV 9.2, Gran % 49.2 L, Lymph % (Auto) 36.1 H, Irwin % (Auto) 8.7 H, Eos % (Auto) 5.0, Baso % (Auto) 1.0, Gran # 2.48, Lymph # 1.8, Irwin # 0.4, Eos # 0.3, Baso # 0.05 - RAD Interpretation Narrative RAD Interpretations (Text): 04/02/17 19:23 Accession No. : [id number] Patient Name / ID : PASQUALE ART / [id number] Exam Date : 04/02/2017 18:25:21 ( Approved ) Study Comment : Sex / Age : M / 62Y Creator : Anibal Meza MD Dictator : Anibal Meza MD Travel Counselor [employer] : [employer] Operator : Anibal Meza MD Approver2 : Report Date : 04/02/2017 19:05:31 My Comment : HISTORY: Chest pain. Technique: Single view portable semi erect @ 18:40. COMPARISON: 03/12/2017 FINDINGS: LUNGS: No active pulmonary disease. PLEURA: No significant pleural effusion identified, no pneumothorax apparent. CARDIOVASCULAR: No radiographic findings to suggest acute or significant cardiovascular disease. Incidental Finding(s): Postoperative changes related to sternotomy. OSSEOUS STRUCTURES: No significant abnormalities. VISUALIZED UPPER ABDOMEN: Normal. OTHER FINDINGS: None. IMPRESSION: No active disease. No significant interval change compared to the prior examination(s). (Eliezer Orosco) Radiology Orders: 04/02/17 17:59 CHEST PORTABLE [RAD] Stat - Medication Orders Current Medication Orders: Albuterol/Ipratropium (Duoneb 3 Mg/0.5 Mg (3 Ml) Ud) 3 ml IH [id number] MAHSA Albuterol/Ipratropium (Duoneb 3 Mg/0.5 Mg (3 Ml) Ud) 3 ml IH Q2 PRN PRN Reason: Shortness of Breath Discontinued Medications Albuterol/Ipratropium (Duoneb 3 Mg/0.5 Mg (3 Ml) Ud) 3 ml IH STAT STA Stop: 04/02/17 18:03 Last Admin: 04/02/17 18:12 Dose: 3 ml Albuterol/Ipratropium (Duoneb 3 Mg/0.5 Mg (3 Ml) Ud) 3 ml IH Q2 MAHSA Last Admin: 04/02/17 21:06 Dose: 3 ml Methylprednisolone (Solu-Medrol) 125 mg IVP STAT STA Stop: 04/02/17 19:23 Last Admin: 04/02/17 19:44 Dose: 125 mg - PA / ULTRASOUND MANAGER / Resident Statement / has reviewed & agrees with the documentation as recorded. / has examined the patient and agrees with the treatment plan. <Dolly Falcon - Last Filed: 04/02/17 21:32> Disposition/Present on Arrival - Present on Arrival Any Indicators Present on Arrival: No History of DVT/PE: No History of Uncontrolled Diabetes: No Urinary Catheter: No History Surgical Site Infection Following: None - Disposition Have Diagnosis and Disposition been Completed?: Yes Disposition Time: 19:57 Patient Plan: Observation <Eliezer Orosco - Last Filed: 04/02/17 19:57> <Dolly Falcon - Last Filed: 04/02/17 21:32> - Disposition Diagnosis: Chest pain, COPD (chronic obstructive pulmonary disease) Disposition: HOSPITALIZED Condition: STABLE
[2017-04-02] MEDS ORDERED: Albuterol-Ipratrop 3 mg / 0.5 (3 ml) UD IH STA (18:02)
[2017-04-02 18:35] LABS: ARTERIAL BLOOD GAS HCO3 27.1 mmol/L (21-28); ARTERIAL BLOOD GAS PH 7.45 (7.35-7.45)
[2017-04-02 18:37] LABS: BASO # 0.05 K/mm3 (0.0-2.0); EOS # 0.3 (0.0-0.7); GRAN # 2.48 (1.4-6.5); GRAN % 49.2 % (50.0-68.0); HEMATOCRIT 36.1 % (42.0-52.0); LYMPH # 1.8 (1.2-3.4); LYMPH % 36.1 % (22.0-35.0); MEAN CELL VOLUME 98.4 fl (80.0-105.0); MEAN CORPUSCULAR HEMOGLOBIN 32.7 pg (25.0-35.0); MEAN CORPUSCULAR HGB CONC 33.2 g/dl (31.0-37.0); MEAN PLATELET VOLUME 9.2 fl (7.0-11.0); MONO # 0.4 (0.1-0.6); MONO % 8.7 % (1.0-6.0); RED CELL DISTRIBUTION WIDTH 13.1 % (11.5-14.5)
[2017-04-02 18:46] LABS: ALB/GLOB RATIO 1.5 (1.1-1.8); ALKALINE PHOSPHATASE 74 U/L (38-126); ALT/SGPT 28 U/L (7-56); AST/SGOT 42 U/L (17-59); BILIRUBIN,TOTAL 0.5 mg/dL (0.2-1.3); BLOOD UREA NITROGEN 20 mg/dL (7-21); CALCIUM 9.1 mg/dL (8.4-10.5); CARBON DIOXIDE 30 mmol/L (21-33); GFR AFRICAN-AMERICAN > 60; GLUCOSE,RANDOM 84 mg/dL (70-110); MAGNESIUM 1.9 mg/dL (1.7-2.2); POTASSIUM 5.3 mmol/L (3.6-5.0); SODIUM 135 mmol/L (132-148); TOTAL PROTEIN 7.1 g/dL (5.8-8.3)
[2017-04-02 18:47] LABS: INR 0.99 (0.93-1.08); PARTIAL THROMBOPLASTIN TIME 26.7 Seconds (23.7-30.8)
--- NOTE | 2017-04-02 19:07 | RAD ---
HISTORY: Chest pain. Technique: Single view portable semi erect @ 18:40. COMPARISON: 03/12/2017 FINDINGS: LUNGS: No active pulmonary disease. PLEURA: No significant pleural effusion identified, no pneumothorax apparent. CARDIOVASCULAR: No radiographic findings to suggest acute or significant cardiovascular disease. Incidental Finding(s): Postoperative changes related to sternotomy. OSSEOUS STRUCTURES: No significant abnormalities. VISUALIZED UPPER ABDOMEN: Normal. OTHER FINDINGS: None. IMPRESSION: No active disease. No significant interval change compared to the prior examination(s).
[2017-04-02 19:18] LABS: TROPONIN I < 0.01 ng/mL
[2017-04-02 19:19] LABS: CHLORIDE 99 mmol/L (98-107)
[2017-04-02] MEDS ORDERED: Albuterol-Ipratrop 3 mg / 0.5 (3 ml) UD IH PRN (21:24)
[2017-04-02] MEDS ORDERED: Albuterol-Ipratrop 3 mg / 0.5 (3 ml) UD IH SCH (22:00)
[2017-04-03] MEDS: Albuterol-Ipratrop 3 mg / 0.5 (3 ml) UD IH SCH ×4 (01:23→21:09)
--- NOTE | 2017-04-03 02:06 | CP.PCM.HP ---
History of Present Illness - History of Present Illness History of Present Illness: Carmelorhianna Erich CARRERO PGY1 - Internal Medicine H&P CC: Chest pain HPI: 62 yo M with PMH of COPD and emphysema, CAD with MIx4 s/p stents x4 and CABGx3 in 2005, HTN. environmental allergies, who presented to the ER complaining of CP and SOB. CP started yesterday when he was walking to work, described as squeezing pain, radiating to left arm, 3-4/10 in severity, at which time he took a SL nitro tab which improved the pain (not totally resolved) . Today, he was running up some stairs to catch a train when he had pressure- like chest pain radiating to left arm, back, and left leg, 5/10 in severity, associated with SOB, diaphoresis, and nausea without vomiting. He again took a SL nitro tab which improved (but not resolved) the pain. Currently, he continues to have mild, nonradiating chest pain, as well as SOB and wheezing. He also admits to cough, productive of yellow sputum, with subjective fevers, as well as rhinorrhea, facial/nasal congestion, and a rash on b/l LE. These all started after he cut a large field of long grass with a friend of his. That day , he had significant worsening of his allergy symptoms, and he has been coughing and has had mild SOB and wheezing ever since. He also noted a rash on b /l LE from ankles to upper thighs 2 days later, pruritic, nonpainful, no drainage or bleeding reported. He went to his PCP who gave him betamethasone and ammonium lactate creams. The rash has improved dramatically, but persists on left lower leg PMH: CAD w/ stents x4, COPD, EtOH abuse, HTN, depression, peripheral neuropathy , cholelithiasis PSH: right carotid endartectomy, cholecystectomy, CABGx3 2006 Soc hx: Tob daily smoker 4-5 cig daily; EtOH history of alcohol abuse, last drink 10/2016; Illicits past marijuana and heroin abuse Allergies: sulfa medications & shellfish Meds: See MAR Family hx: DM, arthritis, and thyroid cancer Edi Developer: Previously saw Dr. Russell and Dr. Crocker during prior hospitalizations PMD: Dr. Damon ROS: Constitutional: pt denies fever, chills, generalized weakness ENT: +Rhinorrhea, nasal congestion pt denies dysphagia, otalgia, hearing deficit , rhinorrhea Eyes: pt denies sudden loss of vision, diplopia, blurred vision MSK: pt denies muscle stiffness, joint pain, extremity cramping Cardio: +CP, SOB pt denies palpitation Pulm: +Cough, wheeze pt denies hemoptysis GI: pt denies loss of appetite, abdominal pain, constipation, melena, n/v/d : pt denies burning on urination, urinary frequency, hematuria, urinary urgency Neuro: pt denies paresis, paresthesia, dizziness, macdonald, numbness, tingling Derm: pt denies skin changes, lesions, nail changes Endo: pt denies intolerance to heat/cold, diaphoresis, night sweats, polydipsia Psych: pt denies anxiety, depression, mood changes Present on Admission - Present on Admission Any Indicators Present on Admission: No Past Patient History - Infectious Disease Hx of Infectious Diseases: None - Tetanus Immunizations Tetanus Immunization: Unknown - Past Medical History & Family History Past Medical History?: Yes - Past Social History Smoking Status: Current Some Days Smoker - CARDIAC Hx Cardiac Disorders: Yes ([place]) Hx Hypercholesterolemia: Yes Hx Hypertension: Yes - PULMONARY Hx Respiratory Disorders: Yes Hx Bronchitis: Yes Hx Chronic Obstructive Pulmonary Disease (COPD): Yes Hx Tuberculosis: No - NEUROLOGICAL Hx Neurological Disorder: No (denies) - HEENT Hx HEENT Problems: Yes Hx Cataracts: Yes (right eye) Hx Glaucoma: No - RENAL Hx Chronic Kidney Disease: No - ENDOCRINE/METABOLIC Hx Endocrine Disorders: No - HEMATOLOGICAL/ONCOLOGICAL Hx Blood Disorders: Yes (blood transfusion) Hx Anemia: Yes Hx Cancer: No - INTEGUMENTARY Hx Dermatological Problems: No - MUSCULOSKELETAL/RHEUMATOLOGICAL Hx Falls: No - GASTROINTESTINAL Hx Gastrointestinal Disorders: Yes Hx Gall Bladder Disease: Yes (Gall stones removed) Hx Gastroesophageal Reflux: Yes - GENITOURINARY/GYNECOLOGICAL Hx Genitourinary Disorders: No (denies) - PSYCHIATRIC Hx Substance Use: No - SURGICAL HISTORY Hx Surgeries: Yes Hx Cardiac Catheterization: Yes Hx Coronary Stent: Yes (x5) Hx Open Heart Surgery: Yes - ANESTHESIA Hx Anesthesia: Yes Hx Anesthesia Reactions: No Hx Malignant Hyperthermia: No Meds Allergies/Adverse Reactions: Allergies Allergy/AdvReac Type Severity Reaction Status Date / Time shellfish derived Allergy ANAPHYLAXIS Verified 11/09/16 00:21 Sulfa (Sulfonamide Allergy RASH Verified 11/09/16 00:21 Antibiotics) Physical Exam - Constitutional Appears: Non-toxic, No Acute Distress, Chronically Ill - Head Exam Head Exam: ATRAUMATIC, NORMOCEPHALIC - Eye Exam Eye Exam: EOMI, Normal appearance - ENT Exam ENT Exam: Mucous Membranes Moist - Neck Exam Neck exam: Negative for: Lymphadenopathy, Meningismus - Respiratory Exam Respiratory Exam: Chest Wall Tenderness, Prolonged Expiratory Phase, Wheezes - Cardiovascular Exam Cardiovascular Exam: RRR, +S1, +S2. absent: Tachycardia - GI/Abdominal Exam GI & Abdominal Exam: Normal Bowel Sounds, Soft. absent: Tenderness - Extremities Exam Extremities exam: Negative for: calf tenderness, pedal edema - Neurological Exam Neurological exam: Alert, Oriented x3 - Psychiatric Exam Psychiatric exam: Normal Affect, Normal Mood - Skin Skin Exam: Dry, Intact Additional comments: LLE urticarial rash with excoriations covering lateral aspect of lower leg, approximately 8x20cm, blanchable erythema, nontender, no bleeding or drainage Results - Vital Signs Recent Vital Signs: Last Vital Signs Temp 97.9 F 04/02/17 23:39 Pulse 75 04/03/17 01:53 Resp 22 04/02/17 23:39 BP 88/56 L 04/02/17 23:39 Pulse Ox 97 04/02/17 23:39 - Labs Result Diagrams: 04/02/17 18:10 04/02/17 18:10 Labs: Laboratory Results - last 24 hr 04/03/17 00:04 Troponin I < 0.01 Assessment & Plan - Assessment and Plan (Free Text) Assessment: 62yo M with pertinent PMH of CAD s/p 4 stents and CABG x3, HTN, COPD and emphysema, environmental allergies, who presented for CP and SOB, likely 2/2 acute bronchitis vs COPD exacerbation, r/o ACS. Plan: 1. Chest pain r/o ACS - Patient has ongoing CP, improved since earlier today, after taking 1 tab SL nitro. Has had multiple admissions for similar problem, last time 03/13/17. - EKG in ER shows NSR with no ST-T wave changes, VSS, and trop negative x1, unlikely 2/2 ACS - CXR shows no active disease and no interval change from prior CXR on 03/12/17 - Prior echo on 02/22/2017 shows normal LVEF (50%), no indication to repeat at this time - Trop negative x1, continue to trend - Nitroglycerin 0.4mg SL PRN - Continue home ASA, Imdur - Cardio (Obi) consulted, appreciate recs 2. Acute bronchitis with h/o COPD - Patient has long history of COPD/emphysema, and presented with SOB, wheezing, and cough productive of yellow sputum. - CXR shows no active disease and no interval change from prior CXR, so more likely acute bronchitis, though CXR findings may lag behind clinical findings, so cannot r/o COPD exacerbation - Currently afebrile, no leukocytosis. Procalcitonin ordered - Patient recieved one duonebs treatment and 125mg solumedrol in ER, with improvement of his symptoms - Start duonebs Q6 MAHSA, and Q2 PRN - Start solumedrol 60mg Q8 - Start Levaquin 75mg for empiric treatment of possible COPD exacerbation - Start loratadine for presumed allergic component - Start Tessalon Perles PRN for cough - Continue home advair, brovana, singulair - Maintain SaO2 >90% 3. Contact dermatitis LLE - Continue betamethasone, singulair - On Solumedrol and loratadine as above 4. h/o CAD - Continue home meds (as above) 5. h/o HTN - Patient is borderline hypotensive on admission, though near his baseline - Continue home Imdur and Coreg, but hold Coreg for SBP<90, DBP<50 GI/DVT Ppx Patient seen, discussed, and reviewed with attending
[2017-04-03] MEDS: Pantoprazole 40 mg EC Tab PO SCH (05:11)
[2017-04-03 06:28] LABS: EOS % 0.3 % (1.5-5.0); GRAN # 2.32 (1.4-6.5); GRAN % 77.1 % (50.0-68.0); HEMATOCRIT 36.3 % (42.0-52.0); LYMPH # 0.6 (1.2-3.4); LYMPH % 21.3 % (22.0-35.0); MEAN CELL VOLUME 98.1 fl (80.0-105.0); MEAN CORPUSCULAR HEMOGLOBIN 32.4 pg (25.0-35.0); MEAN CORPUSCULAR HGB CONC 33.1 g/dl (31.0-37.0); MEAN PLATELET VOLUME 9.1 fl (7.0-11.0); MONO % 1.3 % (1.0-6.0); RED CELL DISTRIBUTION WIDTH 13.1 % (11.5-14.5)
[2017-04-03 07:01] LABS: URINE BILIRUBIN NEGATIVE (NEGATIVE); URINE BLOOD NEGATIVE (NEGATIVE); URINE GLUCOSE (UA) NEGATIVE (NEGATIVE); URINE KETONE NEGATIVE (NEGATIVE); URINE LEUKOCYTE ESTERASE NEGATIVE Leu/uL (NEGATIVE); URINE PROTEIN NEGATIVE mg/dL (<30 mg/dL); URINE UROBILINOGEN 0.2 E.U./dL (<1 E.U./dL)
[2017-04-03 07:02] LABS: URINE APPEARANCE CLEAR (CLEAR); URINE COLOR YELLOW (YELLOW)
[2017-04-03 07:18] LABS: TROPONIN I < 0.01 ng/mL
[2017-04-03 07:22] LABS: ALB/GLOB RATIO 1.5 (1.1-1.8); ALKALINE PHOSPHATASE 72 U/L (38-126); ALT/SGPT 23 U/L (7-56); AST/SGOT 43 U/L (17-59); BILIRUBIN,TOTAL 0.4 mg/dL (0.2-1.3); BLOOD UREA NITROGEN 24 mg/dL (7-21); CALCIUM 9.4 mg/dL (8.4-10.5); CARBON DIOXIDE 25 mmol/L (21-33); CHLORIDE 101 mmol/L (98-107); GFR AFRICAN-AMERICAN > 60; GLUCOSE,RANDOM 166 mg/dL (70-110); MAGNESIUM 2.1 mg/dL (1.7-2.2); PHOSPHOROUS 3.6 mg/dL (2.5-4.5); POTASSIUM 4.9 mmol/L (3.6-5.0); SODIUM 139 mmol/L (132-148); TOTAL PROTEIN 7.1 g/dL (5.8-8.3)
[2017-04-03] MEDS: Arformoterol 15 mcg/2 ml Inh Sol IH SCH ×2 (07:50→21:08)
[2017-04-03] MEDS ORDERED: Budesonide 0.5 mg/2 ml Inhal Susp UD IH SCH (08:00)
[2017-04-03] MEDS ORDERED: Fluticasone-Salmeterol 500-50mcg Diskus IH SCH (10:00)
--- NOTE | 2017-04-03 10:04 | CARD ---
APPROVED REPORT EKG Measurement Heart [id number] <Conclusion> Normal sinus rhythm Normal ECG
[2017-04-03] MEDS: levoFLOXacin 750 MG TAB PO SCH (10:16)
[2017-04-03] MEDS: Betamethasone Dip 0.05% Oint 45gm TOP SCH ×2 (10:25→18:22)
[2017-04-03 10:58] LABS: CHOLESTEROL 187 mg/dL (130-200)
[2017-04-03] MEDS: MethylPREDNISolone 40 mg Vial IVP SCH ×2 (13:33→22:12)
--- NOTE | 2017-04-03 18:28 | CON ---
DATE: 04/03/2017 REASON FOR CONSULTATION: Followup cardiac evaluation, history of coronary artery disease, multiple stents. BRIEF CLINICAL HISTORY: This is a 62-year-old male with the past medical history significant for coronary artery disease, status post multiple MO, multiple PTCA, history of CABG admitted from the [facility] where the patient lives with the complain of chest pain. Denies any chest pain at this time. PAST MEDICAL HISTORY: Past history significant for history of alcoholic intoxication, multiple admissions with the chest pain. Past medical significance for status post coronary artery, multiple PTCA, multiple MO, history of bypass surgery. Ultimately, the patient underwent open heart surgery 2005, history of right carotid artery endarterectomy, history of tobacco abuse, history of alcohol abuse. PAST SURGICAL HISTORY: History significant for coronary artery bypass surgery 2005, history of cholecystectomy, history of inguinal herniorrhaphy. PREVIOUS CARDIAC WORKUP: As follows, history of multiple catheterization and ultimately the patient was CABG. History of last echo in 10/03/2015, there was ejection fraction normal, RV systolic pressure 37, mitral valve structure normal, and trace cuspid regurgitation. SOCIAL HISTORY: Active tobacco abuse and active alcohol abuse. CURRENT MEDICATIONS: The patient is taking at home aspirin, omeprazole, nitroglycerine, isosorbide, and Pulmicort. ALLERGIES: SHELLFISH AND ALLERGIES TO SULFA DRUG. REVIEW OF SYSTEMS: As per HPI. PHYSICAL EXAMINATION VITAL SIGNS: Temperature afebrile, heart rate 86, and blood pressure 111/53. HEENT: PERRLA. Extraocular muscles intact. NECK: Supple. No carotid bruits. No thyromegaly. CHEST: Clear to auscultation. HEART: S1 and S2 regular. ABDOMEN: Soft. EXTREMITIES: Clubbing or cyanosis negative. LABORATORY DATA: EKG shows normal sinus rhythm, heart rate of 86, no acute ST-T wave changes noted. Blood work up as follows WBC 3, hemoglobin 12, hematocrit 36.3, platelet count 229. Chemistries shows sodium 130, potassium 4.9, chloride 101, carbon dioxide 25, anion gap of 18, BUN 20, creatinine 1.1. Troponin is 0.01. IMPRESSION: Atypical chest pain. No evidence of acute myocardial infarction. Normal EKG. Troponin negative. History of coronary artery disease, history of coronary artery bypass graft in the past, a history of percutaneous transluminal coronary angioplasty, hypertension, and hyperlipidemia. RECOMMENDATION: Aggressive medical treatment. Discontinue telemetry. We will get an echo to assess LV function. We will follow with you. We will add TSH, lipid profile and hemoglobin A1c in 2 days blood. If he is stable from medical part, the patient can be discharge. Thank you Dr. Ramirez and for providing us the opportunity in taking care of the patient Nasrin. Flor Verdin MD
[2017-04-04] MEDS: Albuterol-Ipratrop 3 mg / 0.5 (3 ml) UD IH SCH ×4 (03:00→19:44)
[2017-04-04] MEDS: MethylPREDNISolone 40 mg Vial IVP SCH ×3 (05:49→21:46)
[2017-04-04] MEDS: Pantoprazole 40 mg EC Tab PO SCH (05:49)
[2017-04-04 07:25] LABS: GRAN # 6.78 (1.4-6.5); GRAN % 81.6 % (50.0-68.0); HEMATOCRIT 34.1 % (42.0-52.0); LYMPH # 0.7 (1.2-3.4); LYMPH % 8.1 % (22.0-35.0); MEAN CELL VOLUME 97.2 fl (80.0-105.0); MEAN CORPUSCULAR HEMOGLOBIN 32.2 pg (25.0-35.0); MEAN CORPUSCULAR HGB CONC 33.1 g/dl (31.0-37.0); MEAN PLATELET VOLUME 9.3 fl (7.0-11.0); MONO # 0.9 (0.1-0.6); MONO % 10.3 % (1.0-6.0); RED CELL DISTRIBUTION WIDTH 13.2 % (11.5-14.5); WHITE BLOOD COUNT 8.3 10^3/ul (4.5-11.0)
[2017-04-04 07:31] LABS: ALB/GLOB RATIO 1.5 (1.1-1.8); ALKALINE PHOSPHATASE 64 U/L (38-126); ALT/SGPT 25 U/L (7-56); AST/SGOT 28 U/L (17-59); BILIRUBIN,TOTAL 0.3 mg/dL (0.2-1.3); BLOOD UREA NITROGEN 31 mg/dL (7-21); CALCIUM 9.5 mg/dL (8.4-10.5); CARBON DIOXIDE 24 mmol/L (21-33); CHLORIDE 104 mmol/L (98-107); GFR AFRICAN-AMERICAN > 60; GLUCOSE,RANDOM 123 mg/dL (70-110); SODIUM 140 mmol/L (132-148); TOTAL PROTEIN 6.7 g/dL (5.8-8.3)
[2017-04-04] MEDS: Arformoterol 15 mcg/2 ml Inh Sol IH SCH ×2 (07:44→19:42)
--- NOTE | 2017-04-04 09:41 | CP.PCM.PN ---
<Brigid Kinsey - Last Filed: 04/04/17 18:23> Subjective - Date & Time of Evaluation Date of Evaluation: 04/04/17 Time of Evaluation: 09:41 - Subjective Subjective: Brigid Kinsey DO, PGY-1, Hospitalist Service Patient seen and examined at bedside. Patient repoirts MATA overnight. He also produced some solid sputum that he had in a cup to show to me. Objective - Vital Signs/Intake and Output Vital Signs (last 24 hours): Temp Pulse Resp BP Pulse Ox 98.7 F 68 24 94/48 L 98 04/04/17 08:23 04/04/17 08:23 04/04/17 08:23 04/04/17 08:23 04/04/17 08:23 Intake and Output: 04/04/17 04/04/17 06:59 18:59 Intake Total 860 Balance 860 - Medications Medications: Current Medications Albuterol/Ipratropium (Duoneb 3 Mg/0.5 Mg (3 Ml) Ud) 3 ml IH [id number] [facility] Last Admin: 04/04/17 07:44 Dose: 3 ml Albuterol/Ipratropium (Duoneb 3 Mg/0.5 Mg (3 Ml) Ud) 3 ml IH Q2 PRN PRN Reason: Shortness of Breath Arformoterol Tartrate (Brovana) 15 mcg IH [id number] [facility] Last Admin: 04/04/17 07:44 Dose: 15 mcg Aspirin (Ecotrin) 81 mg PO DAILY [facility] Last Admin: 04/03/17 10:17 Dose: 81 mg Benzonatate (Tessalon Perles) 100 mg PO TID PRN PRN Reason: cough Last Admin: 04/03/17 10:17 Dose: 100 mg Betamethasone Dipropionate (Diprolene) 0 applic TOP BID [facility] Last Admin: 04/03/17 18:22 Dose: 1 applic Carvedilol (Coreg) 3.125 mg PO BID [facility] Last Admin: 04/03/17 18:21 Dose: 3.125 mg Heparin Sodium (Porcine) (Heparin) 5,000 units SC Q12 [facility] PRN Reason: Protocol Last Admin: 04/03/17 22:12 Dose: 5,000 units Isosorbide Mononitrate (Imdur Er) 30 mg PO DAILY [facility] Last Admin: 04/03/17 10:17 Dose: 30 mg Levofloxacin (Levaquin) 750 mg PO DAILY [facility] Last Admin: 04/03/17 10:16 Dose: 750 mg Loratadine (Claritin) 10 mg PO DAILY [facility] Last Admin: 04/03/17 10:17 Dose: 10 mg Methylprednisolone (Solu-Medrol) 30 mg IVP ONCE ONE Stop: 04/04/17 11:01 Methylprednisolone (Solu-Medrol) 30 mg IVP Q12 [facility] Montelukast Sodium (Singulair) 10 mg PO HS [facility] Last Admin: 04/03/17 22:12 Dose: 10 mg Nitroglycerin (Nitrostat Sl Tab) 0.4 mg SL Q5M PRN PRN Reason: pain Pantoprazole Sodium (Protonix Ec Tab) 40 mg PO 0600 [facility] Last Admin: 04/04/17 05:49 Dose: 40 mg Thiamine HCl (Vitamin B1 Tab) 100 mg PO DAILY [facility] Last Admin: 04/03/17 10:16 Dose: 100 mg - Labs Labs: 04/04/17 06:45 04/04/17 06:45 PT 10.7 Seconds (9.9-11.8) 04/02/17 18:10 INR 0.99 (0.93-1.08) 04/02/17 18:10 APTT 26.7 Seconds (23.7-30.8) 04/02/17 18:10 - Constitutional Appears: Non-toxic, No Acute Distress - Head Exam Head Exam: ATRAUMATIC, NORMOCEPHALIC - Eye Exam Eye Exam: EOMI, Normal appearance, PERRL - ENT Exam ENT Exam: Mucous Membranes Moist, Normal Oropharynx - Neck Exam Neck Exam: Full ROM, Normal Inspection. absent: Thyromegaly - Respiratory Exam Respiratory Exam: Prolonged Expiratory Phase, Wheezes - Cardiovascular Exam Cardiovascular Exam: RRR, +S1, +S2 - GI/Abdominal Exam GI & Abdominal Exam: Soft, Normal Bowel Sounds. absent: Pulsatile Mass, Rebound - Back Exam Back Exam: NORMAL INSPECTION. absent: CVA tenderness (L), CVA tenderness (R) - Neurological Exam Neurological Exam: Alert, Awake, CN II-XII Intact, Oriented x3 - Psychiatric Exam Psychiatric exam: Normal Affect, Normal Mood - Skin Skin Exam: Dry, Intact, Normal Color, Warm Assessment and Plan - Assessment and Plan (Free Text) Assessment: 62yo M with pertinent PMH of CAD s/p 4 stents and CABG x3, HTN, COPD and emphysema, environmental allergies, who presented for CP and SOB, likely 2/2 acute bronchitis vs COPD exacerbation, r/o ACS. Plan: 1. Chest pain r/o ACS - Patient has ongoing CP, improved since earlier today, after taking 1 tab SL nitro. Has had multiple admissions for similar problem, last time 03/13/17. - EKG in ER shows NSR with no ST-T wave changes, VSS, and trop negative x1, unlikely 2/2 ACS - CXR shows no active disease and no interval change from prior CXR on 03/12/17 - Prior echo on 02/22/2017 shows normal LVEF (50%), no indication to repeat at this time - Trop negative x1, continue to trend - Nitroglycerin 0.4mg SL PRN - Continue home ASA, Imdur - Cardiology consulted, appreciate recommendations - TSH wnl 2. Acute bronchitis/COPD exacerbation - Patient has long history of COPD/emphysema, and presented with SOB, wheezing, and cough productive of yellow sputum. - CXR shows no active disease and no interval change from prior CXR, so more likely acute bronchitis, though CXR findings may lag behind clinical findings, so cannot r/o COPD exacerbation - Currently afebrile, no leukocytosis. - Procalcitonin less than 0.05 - Patient recieved one duonebs treatment and 125mg solumedrol in ER, with improvement of his symptoms - Start duonebs Q6 MAHSA, and Q2 PRN - Solumedrol 30 mg q12h - Levaquin 75mg for empiric treatment of possible COPD exacerbation - Start loratadine for presumed allergic component - Start Tessalon Perles PRN for cough - Continue home advair, brovana, singulair - Maintain SaO2 >90% 3. Contact dermatitis LLE - Continue betamethasone, singulair - On Solumedrol and loratadine as above 4. History of CAD - Continue home meds 5. Hypertension - Patient is borderline hypotensive on admission, though near his baseline - Continue home Imdur and Coreg, but hold Coreg for SBP<90, DBP<50 GI/DVT <Virgilio Roth - Last Filed: 04/05/17 18:24> Objective - Vital Signs/Intake and Output Vital Signs (last 24 hours): Temp Pulse Resp BP Pulse Ox 97.9 F 67 24 112/60 100 04/05/17 07:00 04/05/17 09:57 04/05/17 07:00 04/05/17 09:57 04/05/17 07:00 Intake and Output: 04/05/17 04/05/17 06:59 18:59 Intake Total 780 2300 Balance 780 2300 - Labs Labs: 04/05/17 06:50 04/05/17 10:45 PT 10.7 Seconds (9.9-11.8) 04/02/17 18:10 INR 0.99 (0.93-1.08) 04/02/17 18:10 APTT 26.7 Seconds (23.7-30.8) 04/02/17 18:10 Attending/Attestation - Attestation I have personally seen and examined this patient.: Yes I have fully participated in the care of the patient.: Yes I have reviewed all pertinent clinical information, including history, physical exam and plan: Yes Notes (Text): I have seen and examined the patient at bedside. Agree with the above note with the following additions/ exceptions: Briefly this is 62 year old male with history of CAD s/p 4 stents and CABG x3, HTN, COPD, emphysema, environmental allergies, who presented for chest pain and dyspnea most likely secondary to acute bronchitis vs COPD exacerbation. Continue solumedrol taper, duonebs, levaquin and tessalon perles. Serial troponins are being monitored. Last echo showed ef of 50%. Continue asa and imdur. Upon discharge patient will follow up with Dr Damon. Dr Virgilio Roth
[2017-04-04] MEDS: levoFLOXacin 750 MG TAB PO SCH (10:21)
[2017-04-04] MEDS: Betamethasone Dip 0.05% Oint 45gm TOP SCH ×2 (10:22→17:49)
[2017-04-04] MEDS ORDERED: MethylPREDNISolone 40 mg Vial IVP ONE (11:00)
[2017-04-04] MEDS ORDERED: Apap-Butalbital-Caffeine 325-50-40mg Tab PO STA (14:08)
[2017-04-04] MEDS ORDERED: Apap-Butalbital-Caffeine 325-50-40mg Tab PO PRN (14:09)
--- NOTE | 2017-04-04 20:49 | PN ---
DATE: 04/04/2017 REASON FOR CONSULTATION: Followup cardiac evaluation, history of coronary artery disease, multiple stent, chest pain resolved. SUBJECTIVE: Denies any chest pain, shortness of breath, any palpitation, sitting at the bedside. OBJECTIVE: GENERAL: The patient is awake and alert, sitting at the bedside and not in apparent distress. VITAL SIGNS: Temperature afebrile, heart rate 80, blood pressure 102/53. HEENT: PERRLA. Extraocular muscles intact. NECK: Supple. No carotid bruits. No thyromegaly. CHEST: Clear to auscultation. HEART: S1 and S2 regular. ABDOMEN: Soft. EXTREMITIES: Clubbing or cyanosis negative. LABORATORY DATA: Blood workup as follows: WBC 8.0, hemoglobin 11.3, hematocrit 34.1, platelets 216. Chemistry: Sodium 140, potassium 5.4, carbon dioxide 24, anion gap of 17, BUN 30, creatinine 1.0. TSH 3.03. Lipid profile shows cholesterol 127, LDL 129, HDL 50. IMPRESSION: Chest pain atypical. No evidence of acute myocardial infarction. History of coronary artery disease, coronary artery bypass grafting in 2005 with multiple stents, active tobacco abuse, active alcohol abuse. Blood alcohol level on admission not done. History of coronary artery disease with multiple stents, nonischemic chest pain. RECOMMENDATIONS: Aggressive medical treatment including Coreg as blood pressure is tolerated. DVT prophylaxis. Continue nitroglycerin. Continue prednisone, thiamine, will start low doses of statins as the liver function is tolerated. Though the patient has a history of alcohol abuse, his liver function remained stable. The patient will get the benefit from the Lipitor because of CABG and multiple stent. Possible discharge if he remains stable, no further cardiac workup is planned at this time. Thank you Dr. Virgilio Roth for providing opportunity in taking care of the patient. We will follow with you.04/04/2017 Flor Verdin MD
[2017-04-05 00:53] VITALS: RESP 24
[2017-04-05] MEDS: Albuterol-Ipratrop 3 mg / 0.5 (3 ml) UD IH SCH ×3 (03:33→13:34)
[2017-04-05] MEDS: Pantoprazole 40 mg EC Tab PO SCH (05:56)
[2017-04-05 07:40] LABS: GRAN # 7.06 (1.4-6.5); GRAN % 81.9 % (50.0-68.0); HEMATOCRIT 34.6 % (42.0-52.0); LYMPH % 11.6 % (22.0-35.0); MEAN CELL VOLUME 98.3 fl (80.0-105.0); MEAN CORPUSCULAR HEMOGLOBIN 32.1 pg (25.0-35.0); MEAN CORPUSCULAR HGB CONC 32.7 g/dl (31.0-37.0); MEAN PLATELET VOLUME 9.2 fl (7.0-11.0); MONO # 0.6 (0.1-0.6); MONO % 6.5 % (1.0-6.0); RED CELL DISTRIBUTION WIDTH 13.4 % (11.5-14.5); WHITE BLOOD COUNT 8.6 10^3/ul (4.5-11.0)
[2017-04-05] MEDS: Arformoterol 15 mcg/2 ml Inh Sol IH SCH (07:44)
[2017-04-05 08:07] LABS: ALB/GLOB RATIO 1.4 (1.1-1.8); ALKALINE PHOSPHATASE 64 U/L (38-126); ALT/SGPT 21 U/L (7-56); AST/SGOT 32 U/L (17-59); BLOOD UREA NITROGEN 32 mg/dL (7-21); CALCIUM 9.6 mg/dL (8.4-10.5); CARBON DIOXIDE 26 mmol/L (21-33); CHLORIDE 103 mmol/L (95-110); GFR AFRICAN-AMERICAN > 60; GLUCOSE,RANDOM 102 mg/dL (70-110); POTASSIUM 5.2 mmol/L (3.6-5.0); SODIUM 139 mmol/L (132-148); TOTAL PROTEIN 7.3 g/dL (5.8-8.3)
[2017-04-05 08:56] LABS: BILIRUBIN,TOTAL 0.5 mg/dL (0.2-1.3)
[2017-04-05 09:43] VITALS: PULSE 67; TEMP 97.9; O2SAT 100
[2017-04-05] MEDS: levoFLOXacin 750 MG TAB PO SCH (09:58)
[2017-04-05] MEDS ORDERED: MethylPREDNISolone 40 mg Vial IVP SCH (10:00)
[2017-04-05] MEDS: Betamethasone Dip 0.05% Oint 45gm TOP SCH (10:06)
[2017-04-05 10:07] VITALS: BP 112/60
--- NOTE | 2017-04-05 13:18 | CP.PCM.DIS ---
<Brigid Kinsey - Last Filed: 04/06/17 16:10> Provider - Provider Date of Admission: 04/03/17 14:47 Attending physician: Virgilio Roth MD Primary care physician: Lauren Damon DO Consults: Dr. Crocker Cardiology Time Spent in preparation of Discharge (in minutes): 33 Hospital Course - Lab Results Lab Results: Most Recent Lab Values WBC 8.6 10^3/ul (4.5-11.0) 04/05/17 06:50 RBC 3.52 10^6/uL (3.5-6.1) 04/05/17 06:50 Hgb 11.3 g/dL (14.0-18.0) L 04/05/17 06:50 Hct 34.6 % (42.0-52.0) L 04/05/17 06:50 MCV 98.3 fl (80.0-105.0) 04/05/17 06:50 MCH 32.1 pg (25.0-35.0) 04/05/17 06:50 MCHC 32.7 g/dl (31.0-37.0) 04/05/17 06:50 RDW 13.4 % (11.5-14.5) 04/05/17 06:50 Plt Count 231 10^3/uL (120.0-450.0) 04/05/17 06:50 MPV 9.2 fl (7.0-11.0) 04/05/17 06:50 Gran % 81.9 % (50.0-68.0) H 04/05/17 06:50 Lymph % (Auto) 11.6 % (22.0-35.0) L 04/05/17 06:50 Garden % (Auto) 6.5 % (1.0-6.0) H 04/05/17 06:50 Eos % (Auto) 0.0 % (1.5-5.0) L 04/05/17 06:50 Baso % (Auto) 0.0 % (0.0-3.0) 04/05/17 06:50 Gran # 7.06 (1.4-6.5) H 04/05/17 06:50 Lymph # 1.0 (1.2-3.4) L 04/05/17 06:50 Garden # 0.6 (0.1-0.6) 04/05/17 06:50 Eos # 0.0 (0.0-0.7) 04/05/17 06:50 Baso # 0.00 K/mm3 (0.0-2.0) 04/05/17 06:50 PT 10.7 Seconds (9.9-11.8) 04/02/17 18:10 INR 0.99 (0.93-1.08) 04/02/17 18:10 APTT 26.7 Seconds (23.7-30.8) 04/02/17 18:10 pCO2 39 mm/Hg (35-45) 04/02/17 18:32 pO2 125.0 mm/Hg (80-100) H 04/02/17 18:32 HCO3 27.1 mmol/L (21-28) 04/02/17 18:32 ABG pH 7.45 (7.35-7.45) 04/02/17 18:32 ABG Total CO2 28.3 mmol.L (22-28) H 04/02/17 18:32 ABG O2 Saturation 99.8 % (95-98) H 04/02/17 18:32 ABG Base Excess 3.0 mmol/L (-2.0-3.0) 04/02/17 18:32 ABG Potassium 4.7 mmol/L (3.6-5.2) 04/02/17 18:32 Sodium 136.0 mmol/L (132-148) 04/02/17 18:32 Chloride 107.0 mmol/L (98-107) 04/02/17 18:32 Glucose 86 mg/dl (75-110) 04/02/17 18:32 Lactate 0.4 mmol/L (0.7-2.1) L 04/02/17 18:32 FiO2 32.0 % 04/02/17 18:32 Sodium 139 mmol/L (132-148) 04/05/17 06:50 Potassium 5.2 mmol/L (3.6-5.0) H 04/05/17 10:45 Chloride 103 mmol/L (95-110) 04/05/17 06:50 Carbon Dioxide 26 mmol/L (21-33) 04/05/17 06:50 Anion Gap 15 (10-20) 04/05/17 06:50 BUN 32 mg/dL (7-21) H 04/05/17 06:50 Creatinine 1.0 mg/dL (0.5-1.4) 04/05/17 06:50 Est GFR ( Amer) > 60 04/05/17 06:50 Est GFR (Non-Af Amer) > 60 04/05/17 06:50 Random Glucose 102 mg/dL (70-110) 04/05/17 06:50 Hemoglobin A1c 5.6 % (4.2-6.5) 04/03/17 07:00 Calcium 9.6 mg/dL (8.4-10.5) 04/05/17 06:50 Phosphorus 3.6 mg/dL (2.5-4.5) 04/03/17 06:04 Magnesium 2.1 mg/dL (1.7-2.2) 04/03/17 06:04 Total Bilirubin 0.5 mg/dL (0.2-1.3) 04/05/17 06:50 AST 32 U/L (17-59) 04/05/17 06:50 ALT 21 U/L (7-56) 04/05/17 06:50 Alkaline Phosphatase 64 U/L (38-126) 04/05/17 06:50 Lactate Dehydrogenase 380 U/L (333-699) 04/02/17 18:10 Total Creatine Kinase 172 U/L (35-230) 04/02/17 18:10 Troponin I < 0.01 ng/mL 04/03/17 06:04 NT-Pro-B Natriuret Pep 156 pg/mL (0-450) 04/02/17 18:10 Total Protein 7.3 g/dL (5.8-8.3) 04/05/17 06:50 Albumin 4.2 g/dL (3.0-4.8) 04/05/17 06:50 Globulin 3.1 gm/dL 04/05/17 06:50 Albumin/Globulin Ratio 1.4 (1.1-1.8) 04/05/17 06:50 Triglycerides 47 mg/dL (35-160) 04/03/17 07:00 Cholesterol 187 mg/dL (130-200) 04/03/17 07:00 LDL Cholesterol Direct 129 mg/dL (0-129) 04/03/17 07:00 HDL Cholesterol 50 mg/dL (29-60) 04/03/17 07:00 Procalcitonin < 0.05 NG/ML (0.19-0.49) L 04/03/17 06:04 TSH 3rd Generation 3.03 mIU/mL (0.46-4.68) 04/03/17 07:00 Arterial Blood Potassium 4.7 mmol/L (3.6-5.2) 04/02/17 18:32 Urine Color Yellow (YELLOW) 04/03/17 05:48 Urine Appearance Clear (CLEAR) 04/03/17 05:48 Urine pH 6.0 (4.7-8.0) 04/03/17 05:48 Ur Specific [place] 1.015 (1.005-1.035) 04/03/17 05:48 Urine Protein Negative mg/dL (<30 mg/dL) 04/03/17 05:48 Urine Glucose (UA) Negative mg/dL (NEGATIVE) 04/03/17 05:48 Urine Ketones Negative mg/dL (NEGATIVE) 04/03/17 05:48 Urine Blood Negative (NEGATIVE) 04/03/17 05:48 Urine Nitrate Negative (NEGATIVE) 04/03/17 05:48 Urine Bilirubin Negative (NEGATIVE) 04/03/17 05:48 Urine Urobilinogen 0.2 E.U./dL (<1 E.U./dL) 04/03/17 05:48 Ur Leukocyte Esterase Negative Jenifer/uL (NEGATIVE) 04/03/17 05:48 - Hospital Course Hospital Course: 62 year old male with a past medical history of COPD (not on home oxygen), CAD with PR x4 s/p stent and CABG in 2005, smoker, who presented to the ER complaining of Chest Pain and Shortness of Breath with exertion. He was also found to have a contact dermatitis, likely poison raffy/sumac on his LE. He was admitted for a COPD exacerbation and to rule out an ACS. Cardiology was consulted, who ordered an echocardiogram that was unremarkable. He was treated for a routine COPD exacerbation with Levofloxacin, Duoneb's, IV steroids, and discharged with antibiotics and a steroid taper. He was counselled on smoking cessation during the course of his hospital stay. - Date & Time of H&P Date of H&P: 04/05/17 Time of H&P: 11:40 Discharge Exam - Head Exam Head Exam: ATRAUMATIC, NORMOCEPHALIC - Eye Exam Eye Exam: EOMI, Normal appearance, PERRL - ENT Exam ENT Exam: Mucous Membranes Moist, Normal Oropharynx - Neck Exam Neck exam: Normal Inspection - Respiratory Exam Respiratory Exam: Clear to PA & Lateral, NORMAL BREATHING PATTERN. absent: Wheezes - Cardiovascular Exam Cardiovascular Exam: RRR, +S1, +S2 - GI/Abdominal Exam GI & Abdominal Exam: Normal Bowel Sounds, Soft. absent: Rebound, Rigid - Extremities Exam Extremities exam: normal capillary refill, pedal pulses present - Back Exam Back exam: NORMAL INSPECTION. absent: CVA tenderness (L), CVA tenderness (R) - Neurological Exam Neurological exam: Alert, CN II-XII Intact, Oriented x3 - Psychiatric Exam Psychiatric exam: Normal Affect, Normal Mood - Skin Skin Exam: Dry, Intact, Normal Color, Warm Discharge Plan - Discharge Medications Prescriptions: Doxycycline Hyclate [Doryx] 100 mg PO DAILY #5 cap Methylprednisolone [Medrol Dose Pack (21 tabs)] 4 mg PO DAILY #21 mg - Follow Up Plan Condition: STABLE Disposition: HOME/ ROUTINE Instructions: Chest Pain (ED), Bronchiolitis (DC), Asthma (DC), Asthma (GEN), Heart Healthy Diet (DC), COPD (Chronic Obstructive Pulmonary Disease) (DC), Dyspnea (GEN), Dyspnea Scale and Exercise (DC) Referrals: Lauren Damon DO [Primary Care Provider] - <Virgilio Roth - Last Filed: 04/06/17 16:58> Provider - Provider Date of Admission: 04/03/17 14:47 Attending physician: Virgilio Roth MD Primary care physician: Lauren Damon DO Time Spent in preparation of Discharge (in minutes): 35 Hospital Course - Lab Results Lab Results: Most Recent Lab Values WBC 8.6 10^3/ul (4.5-11.0) 04/05/17 06:50 RBC 3.52 10^6/uL (3.5-6.1) 04/05/17 06:50 Hgb 11.3 g/dL (14.0-18.0) L 04/05/17 06:50 Hct 34.6 % (42.0-52.0) L 04/05/17 06:50 MCV 98.3 fl (80.0-105.0) 04/05/17 06:50 MCH 32.1 pg (25.0-35.0) 04/05/17 06:50 MCHC 32.7 g/dl (31.0-37.0) 04/05/17 06:50 RDW 13.4 % (11.5-14.5) 04/05/17 06:50 Plt Count 231 10^3/uL (120.0-450.0) 04/05/17 06:50 MPV 9.2 fl (7.0-11.0) 04/05/17 06:50 Gran % 81.9 % (50.0-68.0) H 04/05/17 06:50 Lymph % (Auto) 11.6 % (22.0-35.0) L 04/05/17 06:50 Garden % (Auto) 6.5 % (1.0-6.0) H 04/05/17 06:50 Eos % (Auto) 0.0 % (1.5-5.0) L 04/05/17 06:50 Baso % (Auto) 0.0 % (0.0-3.0) 04/05/17 06:50 Gran # 7.06 (1.4-6.5) H 04/05/17 06:50 Lymph # 1.0 (1.2-3.4) L 04/05/17 06:50 Garden # 0.6 (0.1-0.6) 04/05/17 06:50 Eos # 0.0 (0.0-0.7) 04/05/17 06:50 Baso # 0.00 K/mm3 (0.0-2.0) 04/05/17 06:50 PT 10.7 Seconds (9.9-11.8) 04/02/17 18:10 INR 0.99 (0.93-1.08) 04/02/17 18:10 APTT 26.7 Seconds (23.7-30.8) 04/02/17 18:10 pCO2 39 mm/Hg (35-45) 04/02/17 18:32 pO2 125.0 mm/Hg (80-100) H 04/02/17 18:32 HCO3 27.1 mmol/L (21-28) 04/02/17 18:32 ABG pH 7.45 (7.35-7.45) 04/02/17 18:32 ABG Total CO2 28.3 mmol.L (22-28) H 04/02/17 18:32 ABG O2 Saturation 99.8 % (95-98) H 04/02/17 18:32 ABG Base Excess 3.0 mmol/L (-2.0-3.0) 04/02/17 18:32 ABG Potassium 4.7 mmol/L (3.6-5.2) 04/02/17 18:32 Sodium 136.0 mmol/L (132-148) 04/02/17 18:32 Chloride 107.0 mmol/L (98-107) 04/02/17 18:32 Glucose 86 mg/dl (75-110) 04/02/17 18:32 Lactate 0.4 mmol/L (0.7-2.1) L 04/02/17 18:32 FiO2 32.0 % 04/02/17 18:32 Sodium 139 mmol/L (132-148) 04/05/17 06:50 Potassium 5.2 mmol/L (3.6-5.0) H 04/05/17 10:45 Chloride 103 mmol/L (95-110) 04/05/17 06:50 Carbon Dioxide 26 mmol/L (21-33) 04/05/17 06:50 Anion Gap 15 (10-20) 04/05/17 06:50 BUN 32 mg/dL (7-21) H 04/05/17 06:50 Creatinine 1.0 mg/dL (0.5-1.4) 04/05/17 06:50 Est GFR ( Amer) > 60 04/05/17 06:50 Est GFR (Non-Af Amer) > 60 04/05/17 06:50 Random Glucose 102 mg/dL (70-110) 04/05/17 06:50 Hemoglobin A1c 5.6 % (4.2-6.5) 04/03/17 07:00 Calcium 9.6 mg/dL (8.4-10.5) 04/05/17 06:50 Phosphorus 3.6 mg/dL (2.5-4.5) 04/03/17 06:04 Magnesium 2.1 mg/dL (1.7-2.2) 04/03/17 06:04 Total Bilirubin 0.5 mg/dL (0.2-1.3) 04/05/17 06:50 AST 32 U/L (17-59) 04/05/17 06:50 ALT 21 U/L (7-56) 04/05/17 06:50 Alkaline Phosphatase 64 U/L (38-126) 04/05/17 06:50 Lactate Dehydrogenase 380 U/L (333-699) 04/02/17 18:10 Total Creatine Kinase 172 U/L (35-230) 04/02/17 18:10 Troponin I < 0.01 ng/mL 04/03/17 06:04 NT-Pro-B Natriuret Pep 156 pg/mL (0-450) 04/02/17 18:10 Total Protein 7.3 g/dL (5.8-8.3) 04/05/17 06:50 Albumin 4.2 g/dL (3.0-4.8) 04/05/17 06:50 Globulin 3.1 gm/dL 04/05/17 06:50 Albumin/Globulin Ratio 1.4 (1.1-1.8) 04/05/17 06:50 Triglycerides 47 mg/dL (35-160) 04/03/17 07:00 Cholesterol 187 mg/dL (130-200) 04/03/17 07:00 LDL Cholesterol Direct 129 mg/dL (0-129) 04/03/17 07:00 HDL Cholesterol 50 mg/dL (29-60) 04/03/17 07:00 Procalcitonin < 0.05 NG/ML (0.19-0.49) L 04/03/17 06:04 TSH 3rd Generation 3.03 mIU/mL (0.46-4.68) 04/03/17 07:00 Arterial Blood Potassium 4.7 mmol/L (3.6-5.2) 04/02/17 18:32 Urine Color Yellow (YELLOW) 04/03/17 05:48 Urine Appearance Clear (CLEAR) 04/03/17 05:48 Urine pH 6.0 (4.7-8.0) 04/03/17 05:48 Ur Specific [place] 1.015 (1.005-1.035) 04/03/17 05:48 Urine Protein Negative mg/dL (<30 mg/dL) 04/03/17 05:48 Urine Glucose (UA) Negative mg/dL (NEGATIVE) 04/03/17 05:48 Urine Ketones Negative mg/dL (NEGATIVE) 04/03/17 05:48 Urine Blood Negative (NEGATIVE) 04/03/17 05:48 Urine Nitrate Negative (NEGATIVE) 04/03/17 05:48 Urine Bilirubin Negative (NEGATIVE) 04/03/17 05:48 Urine Urobilinogen 0.2 E.U./dL (<1 E.U./dL) 04/03/17 05:48 Ur Leukocyte Esterase Negative Jenifer/uL (NEGATIVE) 04/03/17 05:48 Attending/Attestation - Attestation I have personally seen and examined this patient.: Yes I have fully participated in the care of the patient.: Yes I have reviewed all pertinent clinical information, including history, physical exam and plan: Yes Notes (Text): I have seen and examined the patient at bedside. Agree with the above note with the following additions/ exceptions: Briefly this is 62 year old male with history of CAD s/p 4 stents and CABG x3, HTN, COPD, emphysema, environmental allergies, who presented for chest pain and dyspnea most likely secondary to acute bronchitis vs COPD exacerbation. He was given solumedrol taper, duonebs, levaquin and tessalon perles. Serial troponins are negative. Last echo showed ef of 50%. Continue asa and imdur. Upon discharge patient will follow up with Dr Damon. Dr Virgilio Roth
--- NOTE | 2017-04-05 13:53 | PN ---
DATE: 04/05/2017 LOCATION: The patient is in room 573, bed 3. REASON FOR CONSULTATION: History of coronary artery disease, multiple stents, chest pain, which has resolved. SUBJECTIVE: The patient denies any chest pain, shortness of breath, or palpitation. The patient is sitting comfortably at present. PHYSICAL EXAMINATION: VITAL SIGNS: Blood pressure is 111/58, respirations 24, pulse 67, and temperature 97.9. HEENT: Head is normocephalic. Eyes, pupils normal. Conjunctivae slightly pale. NECK: JVP low. Carotids are equal. Thorax; AP diameter is normal. LUNGS: No significant rales. CARDIOVASCULAR: S1 and S2. ABDOMEN: Soft. No tenderness. No organomegaly. Bowel sounds normal. EXTREMITIES: No clubbing. No cyanosis. LABORATORY DATA: WBC 8.6, hemoglobin 11.3, hematocrit 34.6,and platelets 231. Sodium 139, potassium 5.2, BUN 32, creatinine 1.0. AST and ALT normal. Total protein and albumin normal. DIAGNOSES: Atypical chest pain, no evidence of acute myocardial infarction, history of coronary artery disease, coronary artery bypass graft in 2005 with multiple stents, active tobacco abuse, active alcohol abuse, chest pain seem to be atypical, and hyperkalemia. PLAN: I told the patient again to stop smoking. We will repeat potassium level. The patient is to continue Solu-Medrol 20 mg IV daily, Singulair 10 mg at bedtime, Protonix 40 daily, atorvastatin 20 daily, Levaquin 750 daily, isosorbide mononitrate 30 daily, heparin 5000 units subcutaneous q.12 hours, aspirin 81 mg daily, DuoNeb hand nebulizer therapy, Coreg 3.125 b.i.d. We will continue present therapy. We will follow. Flor Crocker MD
== END 2017-04-05 17:59 | disposition home or self-care (01) | DRG 88 ==
LOC: ED 17:27 → ERH 19:35 → 2RNO 21:39 → OBSVTOIN 04-03 14:47 → 5RSO 04-03 15:18
PROVIDERS: ADMIT Hospitalist; ATTEND Hospitalist
DX: J44.1 Chronic obstructive pulmonary disease with (acute) exacerbation (principal); E87.5 Hyperkalemia; L23.7 Allergic contact dermatitis due to plants, except food; J44.0 Chronic obstructive pulmonary disease with (acute) lower respiratory infection; J20.9 Acute bronchitis, unspecified; I10 Essential (primary) hypertension; I25.10 Atherosclerotic heart disease of native coronary artery without angina pectoris; F17.200 Nicotine dependence, unspecified, uncomplicated; F10.10 Alcohol abuse, uncomplicated; Y90.9 Presence of alcohol in blood, level not specified; Z95.5 Presence of coronary angioplasty implant and graft; Z79.82 Long term (current) use of aspirin; Z95.1 Presence of aortocoronary bypass graft

== ENCOUNTER 2017-04-10 17:59 | Observation (INO) | payer MEDICAID ==
[2017-04-10 18:06] VITALS: BMI 24.0
--- NOTE | 2017-04-10 18:24 | ED PDOC ---
Arrival/HPI - General Chief Complaint: Chest Pain Time Seen by Provider: 04/10/17 18:04 Historian: Patient - History of Present Illness Narrative History of Present Illness (Text): 04/10/17 18:22 62 year old male, whose past medical history includes COPD, CAD,cardiac stents, and alcohol abuse, presents to the emergency department complaining of chest pain for prior to arrival. Patient reports chest pain radiates down the left arm. Also, patient notes experiencing shortness of breath and dizziness, but denies of any headache, visual changes, abdominal pain, nausea, vomiting, diarrhea, or any other complaints. Patient mentions he was admitted her last week for respiratory infection. Patient says he was given asa prior to arrival and says pain is minimal at this time. PMD: Dr. Lauren Damon Time/Duration: Prior to Arrival Symptom Onset: Sudden Symptom Course: Unchanged Past Medical History - Provider Review Nursing Documentation Reviewed: Yes - Past History Past History: No Previous - Infectious Disease Hx of Infectious Diseases: None - Tetanus Immunization Tetanus Immunization: Unknown - Reproductive Currently : No - Cardiac Hx Cardiac Disorders: Yes ([place]) Hx Hypertension: Yes Other/Comment: CABG. BYPASS. 3 STENTS - Pulmonary Hx Respiratory Disorders: Yes Hx Bronchitis: Yes Hx Chronic Obstructive Pulmonary Disease (COPD): Yes Hx Tuberculosis: No - Neurological Hx Neurological Disorder: No (denies) - HEENT Hx HEENT Disorder: Yes Hx Cataracts: Yes (right eye) Hx Glaucoma: No - Renal Hx Renal Disorder: No - Endocrine/Metabolic Hx Endocrine Disorders: No - Hematological/Oncological Hx Blood Disorders: Yes (blood transfusion) Hx Anemia: Yes Hx Cancer: No - Integumentary Hx Dermatological Disorder: No - Musculoskeletal/Rheumatological Hx Falls: No - Gastrointestinal Hx Gastrointestinal Disorders: Yes Hx Gall Bladder Disease: Yes (Gall stones removed) Hx Gastroesophageal Reflux: Yes - Genitourinary/Gynecological Hx Genitourinary Disorders: No (denies) - Psychiatric Hx Psychophysiologic Disorder: Yes (smoking ,drink alcohol) Hx Anxiety: Yes Hx Substance Use: No - Surgical History Hx Cardiac Catheterization: Yes Hx Coronary Stent: Yes (x3) Hx Open Heart Surgery: Yes - Anesthesia Hx Anesthesia: Yes Hx Anesthesia Reactions: No Hx Malignant Hyperthermia: No - Suicidal Assessment Feels Threatened In Home Enviroment: No Family/Social History - Physician Review Nursing Documentation Reviewed: Yes Family/Social History: No Known Family HX Smoking Status: Heavy Smoker > 10 Cigarettes Daily Hx Alcohol Use: Yes Frequency of alcohol use: Daily Hx Substance Use: No Substance used: HEROIN, MARIJUANA Hx Substance Use Treatment: No Allergies/Home Meds Allergies/Adverse Reactions: Allergies shellfish derived Allergy (Verified 04/10/17 18:06) ANAPHYLAXIS Sulfa (Sulfonamide Antibiotics) Allergy (Verified 04/10/17 18:06) RASH Home Medications: Home Meds Medication Instructions Recorded Confirmed Albuterol HFA [Ventolin HFA 90 2 puff IH PRN PRN 02/21/17 04/10/17 mcg/actuation (8 g)] Aspirin [Adult Low Dose Aspirin EC] 81 mg PO DAILY 02/21/17 04/10/17 Carvedilol [Coreg] 3.125 mg PO BID 02/21/17 04/10/17 Fluticasone/Salmeterol 500/50 1 puff IH DAILY 02/21/17 04/10/17 [Advair Diskus 500/50] Isosorbide Mononitrate [Isosorbide 30 mg PO DAILY 02/21/17 04/10/17 Mononitrate ER] Montelukast Sodium [Singulair] 10 mg PO DAILY 02/21/17 04/10/17 Nitroglycerin [Nitrostat] 0.4 mg SL PRN PRN 02/21/17 04/10/17 Omeprazole 20 mg PO DAILY 02/21/17 04/10/17 Thiamine Mononitrate [Vitamin B-1] 100 mg PO DAILY 02/21/17 04/10/17 Ammonium Lactate [Deedee-Hydrolac] 1 appful TD DAILY 04/10/17 04/10/17 Betamethasone Dipropion Augmen 1 appful TD DAILY 04/10/17 04/10/17 [Diprolene AF 0.05%] Clopidogrel [Plavix] 75 mg PO DAILY 04/10/17 04/10/17 Folic Acid [Folic Acid] 1 mg PO DAILY 04/10/17 04/10/17 Review of Systems - Physician Review All systems were reviewed & negative as marked: Yes - Review of Systems Constitutional: absent: Fevers Respiratory: SOB, Cough Cardiovascular: Chest Pain (radiates down to left arm) Gastrointestinal: absent: Abdominal Pain, Diarrhea, Nausea, Vomiting Neurological: Dizziness. absent: Headache Physical Exam Vital Signs Reviewed: Yes Vital Signs Temp Pulse Resp BP Pulse Ox 04/10/17 18:34 64 18 114/68 100 04/10/17 18:10 97.7 F 71 18 114/68 100 Temperature: Afebrile Blood Pressure: Normal Pulse: Regular Respiratory Rate: Normal Appearance: Positive for: Well-Appearing Pain Distress: None Mental Status: Positive for: Alert and Oriented X 3 - Systems Exam Head: Present: Atraumatic, Normocephalic Pupils: Present: PERRL Conjunctiva: Present: Normal Mouth: Present: Moist Mucous Membranes Pharnyx: Present: Normal. No: ERYTHEMA, EXUDATE Neck: Present: Normal Range of Motion Respiratory/Chest: Present: Wheezes (mild bilateral wheezing) Cardiovascular: Present: Regular Rate and Rhythm, Normal S1, S2. No: Murmurs Abdomen: Present: Normal Bowel Sounds. No: Tenderness, Distention, Peritoneal Signs Back: Present: Normal Inspection Upper Extremity: Present: Normal Inspection. No: Cyanosis, Edema Lower Extremity: Present: Normal Inspection. No: Edema Neurological: Present: GCS=15, CN II-XII Intact, Speech Normal Skin: Present: Warm, Dry, Normal Color. No: Rashes Psychiatric: Present: Alert, Oriented x 3, Normal Insight, Normal Concentration Medical Decision Making ED Course and Treatment: 04/10/2017 18:27 Impression: 62 year old male with chest pain. Physical exam shows mild bilateral wheezing. Plan: -- Chest X-ray -- Labs -- Urinalysis -- Reassess and disposition Prior Visits: Notes and results from previous visits were reviewed. Patient was last seen in the emergency department on 04/03/2017 for chest pressure. Patient was admitted. Progress Notes: 04/10/17 18:23 EKG: NSR @ 62 with BENJY diffusely, most pronounced in V3 with WV depressions. The BENJY is more evident c/w previous mainly in V3, but is otherwise unchanged from the previous on 04/02/17; normal intervals and normal axis. EKG sent to Dr. Verdin, who believes ST elevations are due to early lead repolarizations and is not code heart. 04/10/17 19:48 Patient with noted history; ekg as noted. Patient's cp is minimal here. First set of CE negative. Patient with mild diffuse wheezing - will give steroids and nebs and will need further observation on tele; discussed with Dr. Lovelace for placement on the hospitalist service. - Lab Interpretations Lab Results: 04/10/17 18:23 04/10/17 18:23 Lab Results 04/10/17 18:23: Sodium 140, Potassium 4.2, Chloride 101, Carbon Dioxide 26, Anion Gap 17, BUN 24 H, Creatinine 0.9, Est GFR ( Amer) > 60, Est GFR ( Non-Af Amer) > 60, Random Glucose 85, Calcium 8.8, Magnesium 2.3 H, Total Bilirubin 0.5, AST 40, ALT 28, Alkaline Phosphatase 69, Lactate Dehydrogenase 423, Total Creatine Kinase 102, Troponin I < 0.01, NT-Pro-B Natriuret Pep 141, Total Protein 7.1, Albumin 4.3, Globulin 2.7, Albumin/Globulin Ratio 1.6, Lipase 175 04/10/17 18:23: PT 10.7, INR 0.99, APTT 24.5 04/10/17 18:23: WBC 9.4, RBC 3.95, Hgb 13.0 L, Hct 39.1 L, MCV 99.0, MCH 32.9, MCHC 33.2, RDW 13.6, Plt Count 271, MPV 8.8, Gran % 52.5, Lymph % (Auto) 39.1 H , Posey % (Auto) 7.4 H, Eos % (Auto) 1.0 L, Baso % (Auto) 0.0, Gran # 4.93, Lymph # 3.7 H, Posey # 0.7 H, Eos # 0.1, Baso # 0.00 I have reviewed the lab results: Yes - RAD Interpretation Radiology Orders: 04/10/17 18:28 CHEST PORTABLE [RAD] Stat - Medication Orders Current Medication Orders: Discontinued Medications Guaifenesin (Robitussin) 400 mg PO ONCE STA Stop: 04/10/17 19:15 Last Admin: 04/10/17 19:36 Dose: 400 mg Ipratropium [place] (Atrovent) 0.5 mg IH STAT STA Stop: 04/10/17 19:02 Last Admin: 04/10/17 19:11 Dose: 0.5 mg Levalbuterol HCl (Xopenex) 1.25 mg IH STAT STA Stop: 04/10/17 19:02 Last Admin: 04/10/17 19:11 Dose: 1.25 mg Methylprednisolone (Solu-Medrol) 125 mg IVP STAT STA Stop: 04/10/17 19:01 Last Admin: 04/10/17 19:11 Dose: 125 mg IVP Administration Document 04/10/17 19:11 SE (Rec: 04/10/17 19:11 SE [id number]) Charges for Administration # of IVP Administrations 1 - Scribe Statement The provider has reviewed the documentation as recorded by the Arina Nichols Provider Scribe Attestation: All medical record entries made by the Scribe were at my direction and personally dictated by me. I have reviewed the chart and agree that the record accurately reflects my personal performance of the history, physical exam, medical decision making, and the department course for this patient. I have also personally directed, reviewed, and agree with the discharge instructions and disposition. Disposition/Present on Arrival - Present on Arrival Any Indicators Present on Arrival: No History of DVT/PE: No History of Uncontrolled Diabetes: No Urinary Catheter: No History of Decub. Ulcer: No History Surgical Site Infection Following: None - Disposition Have Diagnosis and Disposition been Completed?: Yes Diagnosis: Chest pain Disposition: HOSPITALIZED Disposition Time: 19:30 Patient Plan: Observation, Telemetry Condition: FAIR Discharge Instructions (ExitCare): Chest Pain (ED) Referrals: Lauren Damon DO [Primary Care Provider] - Follow up with primary Forms: [employer] ([place])
[2017-04-10 18:52] LABS: EOS # 0.1 (0.0-0.7); GRAN # 4.93 (1.4-6.5); GRAN % 52.5 % (50.0-68.0); HEMATOCRIT 39.1 % (42.0-52.0); LYMPH # 3.7 (1.2-3.4); LYMPH % 39.1 % (22.0-35.0); MEAN CORPUSCULAR HEMOGLOBIN 32.9 pg (25.0-35.0); MEAN CORPUSCULAR HGB CONC 33.2 g/dl (31.0-37.0); MEAN PLATELET VOLUME 8.8 fl (7.0-11.0); MONO # 0.7 (0.1-0.6); MONO % 7.4 % (1.0-6.0); RED CELL DISTRIBUTION WIDTH 13.6 % (11.5-14.5); WHITE BLOOD COUNT 9.4 10^3/ul (4.5-11.0)
[2017-04-10] MEDS ORDERED: Ipratropium 0.02% Inhal Soln (0.5 mg/2.5 ml) UD IH STA (19:01)
[2017-04-10] MEDS ORDERED: Levalbuterol 1.25 MG/3 ML Inhal Soln UD IH STA (19:01)
[2017-04-10 19:02] LABS: INR 0.99 (0.93-1.08); PARTIAL THROMBOPLASTIN TIME 24.5 Seconds (23.7-30.8)
[2017-04-10 19:04] LABS: ALB/GLOB RATIO 1.6 (1.1-1.8); ALKALINE PHOSPHATASE 69 U/L (38-126); ALT/SGPT 28 U/L (7-56); AST/SGOT 40 U/L (17-59); BILIRUBIN,TOTAL 0.5 mg/dL (0.2-1.3); BLOOD UREA NITROGEN 24 mg/dL (7-21); CALCIUM 8.8 mg/dL (8.4-10.5); CARBON DIOXIDE 26 mmol/L (21-33); CHLORIDE 101 mmol/L (98-107); GFR AFRICAN-AMERICAN > 60; GLUCOSE,RANDOM 85 mg/dL (70-110); LIPASE 175 U/L (23-300); MAGNESIUM 2.3 mg/dL (1.7-2.2); POTASSIUM 4.2 mmol/L (3.6-5.0); SODIUM 140 mmol/L (132-148); TOTAL PROTEIN 7.1 g/dL (5.8-8.3)
[2017-04-10] MEDS ORDERED: guaiFENesin 200 mg/10 ml Syrup UD PO STA (19:14)
[2017-04-10 19:27] LABS: TROPONIN I < 0.01 ng/mL
[2017-04-10] MEDS ORDERED: Albuterol-Ipratrop 3 mg / 0.5 (3 ml) UD IH PRN (21:05)
--- NOTE | 2017-04-10 22:00 | CP.PCM.HP ---
<LEVY PAN - Last Filed: 04/10/17 23:35> History of Present Illness - History of Present Illness History of Present Illness: Bryancorky Erich DO PGY1 - Internal Medicine H&P CC: Chest pain HPI: 62 yo M with PMH of COPD, CAD with MIx4 s/p stents x4 and CABG (triple bypass) in 2005, HTN, environmental allergies, who presented to the ER complaining of CP and SOB prior to presentation. Patient was walking out of his home and suddenly started having chest pressure/pain sensation that radiated down his left arm, he was with a friend at the time who insisted on calling the ambulance for him. Patient said he normally takes nitro for such pains which resolves, but this time did not have the opportunity to do so. Pain lasted approximately 2 minutes, then started improving gradually on its own. Pain was associated with some SOB, but no diaphoresis, N/V, back pain, MATA, claudication. Currently he admits to low-grade chest pressure, which he very often has, 2/10 in severity, nonradiating, but denies SOB, diaphoresis, anxiety, N/V/D/C, abdominal pain, F/C. His currently CP gets worse with inspiration. Of note, patient was discharged one week ago after being admitted and treated for COPD exacerbation 2/2 environmental allergy exposure. He has one more day of doxycycline and of his medrol dose pack to complete. His cough has been improving gradually. PMH: CAD w/ stents x4, COPD, EtOH abuse, HTN, depression, peripheral neuropathy , cholelithiasis PSH: right carotid endartectomy, cholecystectomy, CABG (triple bypass) 2005 Soc hx: Tob daily smoker 4-5 cig daily; EtOH history of alcohol abuse, last drink 10/2016; Illicits past marijuana and heroin abuse Allergies: sulfa medications & shellfish Meds: See MAR Family hx: DM, arthritis, and thyroid cancer PMD: Dr. Damon ROS: Constitutional: pt denies fever, chills, generalized weakness ENT: pt denies dysphagia, otalgia, hearing deficit, rhinorrhea Eyes: pt denies sudden loss of vision, diplopia, blurred vision MSK: pt denies muscle stiffness, joint pain, extremity cramping Cardio: +CP pt denies palpitation, SOB Pulm: +Cough, wheeze pt denies hemoptysis GI: pt denies loss of appetite, abdominal pain, constipation, melena, n/v/d : pt denies burning on urination, urinary frequency, hematuria, urinary urgency Neuro: pt denies paresis, paresthesia, dizziness, mata, numbness, tingling Derm: pt denies skin changes, lesions, nail changes Endo: pt denies intolerance to heat/cold, diaphoresis, night sweats, polydipsia Psych: pt denies anxiety, depression, mood changes Present on Admission - Present on Admission Any Indicators Present on Admission: No Past Patient History - Infectious Disease Hx of Infectious Diseases: None - Tetanus Immunizations Tetanus Immunization: Unknown - Past Medical History & Family History Past Medical History?: Yes - Past Social History Smoking Status: Heavy Smoker > 10 Cigarettes Daily - CARDIAC Hx Cardiac Disorders: Yes ([place]) Hx Hypertension: Yes Other/Comment: CABG. BYPASS. 3 STENTS - PULMONARY Hx Respiratory Disorders: Yes Hx Bronchitis: Yes Hx Chronic Obstructive Pulmonary Disease (COPD): Yes Hx Tuberculosis: No - NEUROLOGICAL Hx Neurological Disorder: No (denies) - HEENT Hx HEENT Problems: Yes Hx Cataracts: Yes (right eye) Hx Glaucoma: No - RENAL Hx Chronic Kidney Disease: No - ENDOCRINE/METABOLIC Hx Endocrine Disorders: No - HEMATOLOGICAL/ONCOLOGICAL Hx Blood Disorders: Yes (blood transfusion) Hx Anemia: Yes Hx Cancer: No - INTEGUMENTARY Hx Dermatological Problems: No - MUSCULOSKELETAL/RHEUMATOLOGICAL Hx Falls: No - GASTROINTESTINAL Hx Gastrointestinal Disorders: Yes Hx Gall Bladder Disease: Yes (Gall stones removed) Hx Gastroesophageal Reflux: Yes - GENITOURINARY/GYNECOLOGICAL Hx Genitourinary Disorders: No (denies) - PSYCHIATRIC Hx Psychophysiologic Disorder: Yes (smoking ,drink alcohol) Hx Anxiety: Yes Hx Substance Use: No - SURGICAL HISTORY Hx Cardiac Catheterization: Yes Hx Coronary Stent: Yes (x3) Hx Open Heart Surgery: Yes - ANESTHESIA Hx Anesthesia: Yes Hx Anesthesia Reactions: No Hx Malignant Hyperthermia: No Meds Allergies/Adverse Reactions: Allergies Allergy/AdvReac Type Severity Reaction Status Date / Time shellfish derived Allergy ANAPHYLAXIS Verified 04/10/17 18:06 Sulfa (Sulfonamide Allergy RASH Verified 04/10/17 18:06 Antibiotics) Physical Exam - Constitutional Appears: Non-toxic, No Acute Distress, Chronically Ill - Head Exam Head Exam: ATRAUMATIC, NORMOCEPHALIC - Eye Exam Eye Exam: EOMI, PERRL - ENT Exam ENT Exam: Mucous Membranes Moist - Neck Exam Neck exam: Negative for: Lymphadenopathy, Thyromegaly - Respiratory Exam Respiratory Exam: Rhonchi (minimal, diffuse), Wheezes (diffuse), NORMAL BREATHING PATTERN. absent: Rales, Respiratory Distress, Stridor - Cardiovascular Exam Cardiovascular Exam: RRR, +S1, +S2 - GI/Abdominal Exam GI & Abdominal Exam: Normal Bowel Sounds, Soft. absent: Tenderness - Extremities Exam Extremities exam: Positive for: normal inspection. Negative for: calf tenderness, pedal edema - Neurological Exam Neurological exam: Alert, CN II-XII Intact, Oriented x3 - Psychiatric Exam Psychiatric exam: Normal Affect, Normal Mood - Skin Skin Exam: Dry, Intact, Normal Color Results - Vital Signs Recent Vital Signs: Last Vital Signs Temp 97.7 F 04/10/17 18:10 Pulse 64 04/10/17 18:34 Resp 19 04/10/17 21:22 BP 103/62 04/10/17 21:22 Pulse Ox 98 04/10/17 21:22 - Labs Result Diagrams: 04/10/17 18:23 04/10/17 18:23 Assessment & Plan - Assessment and Plan (Free Text) Assessment: 62yo M with pertinent PMH of CAD s/p 4 stents and CABG (triple bypass), HTN, COPD and emphysema, environmental allergies, who presented for anginal CP and SOB, now resolved; r/o ACS Plan: 1. Chest pain r/o ACS - Patient presented with CP prior to presentation, now resolved. Has had multiple admissions for similar problem, last time 04/02/17. - EKG in ER shows NSR with ST elevation in V3, slightly increased compared to prior EKG, otherwise no changes compared to prior EKGs. Dr. Verdin called by ER staff, he attributed BENJY to early repolarization. CP resolved, VSS, trop negative x1, unlikely 2/2 ACS - CXR shows no active disease and no interval change from prior CXR on 04/02/17; pending official read - Prior echo on 02/22/2017 shows normal LVEF (50%), no indication to repeat at this time - Trop negative x1, continue to trend - Nitroglycerin 0.4mg SL PRN - Continue home ASA, Imdur - Cardio (Yvonne) consulted, appreciate recs 2. h/o COPD - Patient has long history of COPD/emphysema, still completing course of treatment for acute exacerbation one week ago - CXR shows no active disease and no interval change from prior CXR, pending official read - On exam, patient noted to have diffuse wheeze and minimal rhonchi; likely his baseline, not currently dyspneic - Patient recieved one xopenex and atrovent treatment and 125mg solumedrol in ER - Start duonebs Q6 MAHSA, and Q2 PRN - Start solumedrol 20mg daily - Continue home singulair - PRN O2 by NC to Maintain SaO2 >90% 3. h/o CAD - Continue home meds (as above) 4. h/o HTN - BP currently stable - Continue home Imdur and Coreg GI/DVT Ppx Patient seen, discussed, and reviewed with attending <Nova Lovelace - Last Filed: 04/11/17 00:08> Results - Vital Signs Recent Vital Signs: Last Vital Signs Temp 97.5 F L 04/10/17 22:29 Pulse 61 04/10/17 22:29 Resp 20 04/10/17 22:29 BP 98/61 L 04/10/17 22:29 Pulse Ox 98 04/10/17 21:22 - Labs Result Diagrams: 04/10/17 18:23 04/10/17 18:23 Attending/Attestation - Attestation I have personally seen and examined this patient.: Yes I have fully participated in the care of the patient.: Yes I have reviewed all pertinent clinical information: Yes Notes (Text): 04/11/17 00:07 Agree with documentation and plan.
[2017-04-11 00:46] VITALS: O2SAT 97
[2017-04-11] MEDS: Albuterol-Ipratrop 3 mg / 0.5 (3 ml) UD IH SCH ×3 (01:27→13:41)
[2017-04-11] MEDS ORDERED: Pantoprazole 40 mg EC Tab PO SCH (06:00)
[2017-04-11 06:12] LABS: BASO # 0.01 K/mm3 (0.0-2.0); BASO % 0.2 % (0.0-3.0); GRAN # 3.3 (1.4-6.5); GRAN % 70.3 % (50.0-68.0); HEMATOCRIT 38.6 % (42.0-52.0); LYMPH # 1.2 (1.2-3.4); LYMPH % 25.5 % (22.0-35.0); MEAN CELL VOLUME 98.5 fl (80.0-105.0); MEAN CORPUSCULAR HEMOGLOBIN 32.4 pg (25.0-35.0); MEAN CORPUSCULAR HGB CONC 32.9 g/dl (31.0-37.0); MEAN PLATELET VOLUME 8.9 fl (7.0-11.0); MONO # 0.2 (0.1-0.6); WHITE BLOOD COUNT 4.7 10^3/ul (4.5-11.0)
[2017-04-11 06:45] LABS: ALB/GLOB RATIO 1.6 (1.1-1.8); ALKALINE PHOSPHATASE 68 U/L (38-126); ALT/SGPT 28 U/L (7-56); AST/SGOT 32 U/L (17-59); BILIRUBIN,TOTAL 0.5 mg/dL (0.2-1.3); BLOOD UREA NITROGEN 27 mg/dL (7-21); CALCIUM 8.9 mg/dL (8.4-10.5); CARBON DIOXIDE 28 mmol/L (21-33); CHLORIDE 100 mmol/L (98-107); GFR AFRICAN-AMERICAN > 60; GLUCOSE,RANDOM 113 mg/dL (70-110); MAGNESIUM 2.1 mg/dL (1.7-2.2); PHOSPHOROUS 4.1 mg/dL (2.5-4.5); POTASSIUM 4.9 mmol/L (3.6-5.0); SODIUM 138 mmol/L (132-148); TOTAL PROTEIN 6.8 g/dL (5.8-8.3)
[2017-04-11 07:37] LABS: TROPONIN I < 0.01 ng/mL
--- NOTE | 2017-04-11 08:01 | RAD ---
HISTORY: sob COMPARISON: Portable chest 04/02/2017. FINDINGS: Sternotomy wires and mediastinal surgical clips again evident. LUNGS: No active pulmonary disease. PLEURA: No significant pleural effusion identified, no pneumothorax apparent. CARDIOVASCULAR: Normal. OSSEOUS STRUCTURES: Old healed inferolateral left rib fractures again evident. VISUALIZED UPPER ABDOMEN: Normal. OTHER FINDINGS: None. IMPRESSION: No acute cardiopulmonary disease appreciated. No significant change compared to 04/02/2017.
[2017-04-11] MEDS ORDERED: Non Formulary Medication (Thiamine Mononitrate [Vitamin B-1] 100 MG) PO SCH (10:00)
[2017-04-11] MEDS ORDERED: METHYLPREDNISOLONE 4 MG PO SCH (10:00)
[2017-04-11] MEDS ORDERED: MethylPREDNISolone 40 mg Vial IVP SCH (10:00)
[2017-04-11 12:08] VITALS: BP 145/75; RESP 18; TEMP 98.2
[2017-04-11 13:58] VITALS: PULSE 64
--- NOTE | 2017-04-11 14:06 | CP.PCM.DIS ---
<Brigid Kinsey - Last Filed: 04/11/17 14:56> Provider - Provider Date of Admission: 04/10/17 19:32 Attending physician: Capo Ramirez MD Primary care physician: Lauren Damon DO Consults: Dr. Young Time Spent in preparation of Discharge (in minutes): 33 Hospital Course - Lab Results Lab Results: Most Recent Lab Values WBC 4.7 10^3/ul (4.5-11.0) D 04/11/17 06:05 RBC 3.92 10^6/uL (3.5-6.1) 04/11/17 06:05 Hgb 12.7 g/dL (14.0-18.0) L 04/11/17 06:05 Hct 38.6 % (42.0-52.0) L 04/11/17 06:05 MCV 98.5 fl (80.0-105.0) 04/11/17 06:05 MCH 32.4 pg (25.0-35.0) 04/11/17 06:05 MCHC 32.9 g/dl (31.0-37.0) 04/11/17 06:05 RDW 14.0 % (11.5-14.5) 04/11/17 06:05 Plt Count 255 10^3/uL (120.0-450.0) 04/11/17 06:05 MPV 8.9 fl (7.0-11.0) 04/11/17 06:05 Gran % 70.3 % (50.0-68.0) H 04/11/17 06:05 Lymph % (Auto) 25.5 % (22.0-35.0) 04/11/17 06:05 [place] % (Auto) 4.0 % (1.0-6.0) 04/11/17 06:05 Eos % (Auto) 0.0 % (1.5-5.0) L 04/11/17 06:05 Baso % (Auto) 0.2 % (0.0-3.0) 04/11/17 06:05 Gran # 3.30 (1.4-6.5) 04/11/17 06:05 Lymph # 1.2 (1.2-3.4) 04/11/17 06:05 Dunn # 0.2 (0.1-0.6) 04/11/17 06:05 Eos # 0.0 (0.0-0.7) 04/11/17 06:05 Baso # 0.01 K/mm3 (0.0-2.0) 04/11/17 06:05 PT 10.7 Seconds (9.9-11.8) 04/10/17 18:23 INR 0.99 (0.93-1.08) 04/10/17 18:23 APTT 24.5 Seconds (23.7-30.8) 04/10/17 18:23 Sodium 138 mmol/L (132-148) 04/11/17 06:05 Potassium 4.9 mmol/L (3.6-5.0) 04/11/17 06:05 Chloride 100 mmol/L (98-107) 04/11/17 06:05 Carbon Dioxide 28 mmol/L (21-33) 04/11/17 06:05 Anion Gap 15 (10-20) 04/11/17 06:05 BUN 27 mg/dL (7-21) H 04/11/17 06:05 Creatinine 0.8 mg/dL (0.5-1.4) 04/11/17 06:05 Est GFR ( Amer) > 60 04/11/17 06:05 Est GFR (Non-Af Amer) > 60 04/11/17 06:05 Random Glucose 113 mg/dL (70-110) H 04/11/17 06:05 Calcium 8.9 mg/dL (8.4-10.5) 04/11/17 06:05 Phosphorus 4.1 mg/dL (2.5-4.5) 04/11/17 06:05 Magnesium 2.1 mg/dL (1.7-2.2) 04/11/17 06:05 Total Bilirubin 0.5 mg/dL (0.2-1.3) 04/11/17 06:05 AST 32 U/L (17-59) 04/11/17 06:05 ALT 28 U/L (7-56) 04/11/17 06:05 Alkaline Phosphatase 68 U/L (38-126) 04/11/17 06:05 Lactate Dehydrogenase 423 U/L (333-699) 04/10/17 18:23 Total Creatine Kinase 102 U/L (35-230) 04/10/17 18:23 Troponin I < 0.01 ng/mL 04/11/17 06:05 NT-Pro-B Natriuret Pep 141 pg/mL (0-450) 04/10/17 18:23 Total Protein 6.8 g/dL (5.8-8.3) 04/11/17 06:05 Albumin 4.2 g/dL (3.0-4.8) 04/11/17 06:05 Globulin 2.6 gm/dL 04/11/17 06:05 Albumin/Globulin Ratio 1.6 (1.1-1.8) 04/11/17 06:05 Lipase 175 U/L (23-300) 04/10/17 18:23 Urine Opiates Screen Negative (NEGATIVE) 04/11/17 02:45 Urine Methadone Screen Negative (NEGATIVE) 04/11/17 02:45 Ur Barbiturates Screen Positive (NEGATIVE) H 04/11/17 02:45 Ur Phencyclidine Scrn Negative (NEGATIVE) 04/11/17 02:45 Ur Amphetamines Screen Negative (NEGATIVE) 04/11/17 02:45 U Benzodiazepines Scrn Negative (NEGATIVE) 04/11/17 02:45 U Oth Cocaine Metabols Negative (NEGATIVE) 04/11/17 02:45 U Cannabinoids Screen Negative (NEGATIVE) 04/11/17 02:45 - Hospital Course Hospital Course: PI: 62 yo M with PMH of COPD, CAD with MIx4 s/p stents x4 and CABG (triple bypass) in 2005, HTN, environmental allergies, who presented to the ER complaining of CP and SOB prior to presentation. Though the patient's chest pain was less than two minutes long, and responded to nitroglycerin given to him in the ED, he was, however, admitted for observation given the patient's extensive cardiac history, smoking status, and other significant CAD risk factors. Cardiology was consulted. EKG on admission showed early repolarization in leads V2-V4 and troponin I x3 was negative. The patient's was seen by cardiology and recommended to stop smoking, drinking alcohol, and establish care with a brand ambassador promotional model to follow-up his cardiac status on a regular basis and to follow up with PMD. - Date & Time of H&P Date of H&P: 04/11/17 Time of H&P: 14:07 Discharge Exam - Head Exam Head Exam: ATRAUMATIC, NORMOCEPHALIC - Eye Exam Eye Exam: EOMI, Normal appearance, PERRL Pupil Exam: NORMAL ACCOMODATION - ENT Exam ENT Exam: Mucous Membranes Moist, Normal Oropharynx - Neck Exam Neck exam: Normal Inspection - Respiratory Exam Respiratory Exam: Clear to PA & Lateral, Prolonged Expiratory Phase. absent: Respiratory Distress - Cardiovascular Exam Cardiovascular Exam: RRR, +S1, +S2 - GI/Abdominal Exam GI & Abdominal Exam: Normal Bowel Sounds, Soft. absent: Distended, Guarding - Extremities Exam Extremities exam: normal capillary refill, pedal pulses present - Back Exam Back exam: NORMAL INSPECTION. absent: CVA tenderness (L), CVA tenderness (R) - Neurological Exam Neurological exam: Alert, CN II-XII Intact, Normal Gait, Oriented x3 - Psychiatric Exam Psychiatric exam: Normal Affect, Normal Mood - Skin Skin Exam: Dry, Intact, Normal Color, Warm Discharge Plan - Follow Up Plan Condition: FAIR Disposition: HOME/ ROUTINE Instructions: Chest Pain (DC), Chest Pain (GEN), How to Stop Smoking (DC), Cigarette Smoking and Your Health (GEN) Additional Instructions: 1) Patient to schedule/establish care with a brand ambassador promotional model. 2) Patient advised to stop smoking and drinking 3) Patient should follow up with PMD within one week of discharge. Referrals: Lauren Damon DO [Primary Care Provider] - <Capo Ramirez - Last Filed: 04/11/17 16:49> Provider - Provider Date of Admission: 04/10/17 19:32 Attending physician: Capo Ramirez MD Primary care physician: Lauren Damon DO Hospital Course - Lab Results Lab Results: Most Recent Lab Values WBC 4.7 10^3/ul (4.5-11.0) D 04/11/17 06:05 RBC 3.92 10^6/uL (3.5-6.1) 04/11/17 06:05 Hgb 12.7 g/dL (14.0-18.0) L 04/11/17 06:05 Hct 38.6 % (42.0-52.0) L 04/11/17 06:05 MCV 98.5 fl (80.0-105.0) 04/11/17 06:05 MCH 32.4 pg (25.0-35.0) 04/11/17 06:05 MCHC 32.9 g/dl (31.0-37.0) 04/11/17 06:05 RDW 14.0 % (11.5-14.5) 04/11/17 06:05 Plt Count 255 10^3/uL (120.0-450.0) 04/11/17 06:05 MPV 8.9 fl (7.0-11.0) 04/11/17 06:05 Gran % 70.3 % (50.0-68.0) H 04/11/17 06:05 Lymph % (Auto) 25.5 % (22.0-35.0) 04/11/17 06:05 Dunn % (Auto) 4.0 % (1.0-6.0) 04/11/17 06:05 Eos % (Auto) 0.0 % (1.5-5.0) L 04/11/17 06:05 Baso % (Auto) 0.2 % (0.0-3.0) 04/11/17 06:05 Gran # 3.30 (1.4-6.5) 04/11/17 06:05 Lymph # 1.2 (1.2-3.4) 04/11/17 06:05 Dunn # 0.2 (0.1-0.6) 04/11/17 06:05 Eos # 0.0 (0.0-0.7) 04/11/17 06:05 Baso # 0.01 K/mm3 (0.0-2.0) 04/11/17 06:05 PT 10.7 Seconds (9.9-11.8) 04/10/17 18:23 INR 0.99 (0.93-1.08) 04/10/17 18:23 APTT 24.5 Seconds (23.7-30.8) 04/10/17 18:23 Sodium 138 mmol/L (132-148) 04/11/17 06:05 Potassium 4.9 mmol/L (3.6-5.0) 04/11/17 06:05 Chloride 100 mmol/L (98-107) 04/11/17 06:05 Carbon Dioxide 28 mmol/L (21-33) 04/11/17 06:05 Anion Gap 15 (10-20) 04/11/17 06:05 BUN 27 mg/dL (7-21) H 04/11/17 06:05 Creatinine 0.8 mg/dL (0.5-1.4) 04/11/17 06:05 Est GFR ( Amer) > 60 04/11/17 06:05 Est GFR (Non-Af Amer) > 60 04/11/17 06:05 Random Glucose 113 mg/dL (70-110) H 04/11/17 06:05 Calcium 8.9 mg/dL (8.4-10.5) 04/11/17 06:05 Phosphorus 4.1 mg/dL (2.5-4.5) 04/11/17 06:05 Magnesium 2.1 mg/dL (1.7-2.2) 04/11/17 06:05 Total Bilirubin 0.5 mg/dL (0.2-1.3) 04/11/17 06:05 AST 32 U/L (17-59) 04/11/17 06:05 ALT 28 U/L (7-56) 04/11/17 06:05 Alkaline Phosphatase 68 U/L (38-126) 04/11/17 06:05 Lactate Dehydrogenase 423 U/L (333-699) 04/10/17 18:23 Total Creatine Kinase 102 U/L (35-230) 04/10/17 18:23 Troponin I < 0.01 ng/mL 04/11/17 06:05 NT-Pro-B Natriuret Pep 141 pg/mL (0-450) 04/10/17 18:23 Total Protein 6.8 g/dL (5.8-8.3) 04/11/17 06:05 Albumin 4.2 g/dL (3.0-4.8) 04/11/17 06:05 Globulin 2.6 gm/dL 04/11/17 06:05 Albumin/Globulin Ratio 1.6 (1.1-1.8) 04/11/17 06:05 Lipase 175 U/L (23-300) 04/10/17 18:23 Urine Opiates Screen Negative (NEGATIVE) 04/11/17 02:45 Urine Methadone Screen Negative (NEGATIVE) 04/11/17 02:45 Ur Barbiturates Screen Positive (NEGATIVE) H 04/11/17 02:45 Ur Phencyclidine Scrn Negative (NEGATIVE) 04/11/17 02:45 Ur Amphetamines Screen Negative (NEGATIVE) 04/11/17 02:45 U Benzodiazepines Scrn Negative (NEGATIVE) 04/11/17 02:45 U Oth Cocaine Metabols Negative (NEGATIVE) 04/11/17 02:45 U Cannabinoids Screen Negative (NEGATIVE) 04/11/17 02:45 Attending/Attestation - Attestation I have personally seen and examined this patient.: Yes I have fully participated in the care of the patient.: Yes I have reviewed all pertinent clinical information, including history, physical exam and plan: Yes Notes (Text): 04/11/17 16:46 attending note; Patient seen and examined with resident. Patient is a 62-year-d male with PMH of COPD, CAD with stents x4 and CABG ( triple bypass) in 2005, HTN is admitted with chest pain. Initial EKG showed ST elevation in the lateral leads unchanged from previous admission. EKG reviewed with brand ambassador promotional model. Cardiac enzymes 3 negative. Cardiology evaluation appreciated. Continue Motrin when necessary. Patient will continue aspirin, Plavix, Imdur, Coreg. complete smoking cessation/alcohol cessation is strongly advised. Medication compliance insisted. Patient will follow up with PMD Dr. Damon. Patient will follow-up with cardiology DR. Alejandra soon as outpatient. diagnosis; Atypical chest pain COPD Active smoking History of CABG Noncompliance with follow-up
--- NOTE | 2017-04-11 16:35 | CON ---
DATE: CARDIOLOGY CONSULT Reason for consultation: Chest pain. HISTORY OF PRESENT ILLNESS: The patient is a [id number], who has a history of coronary artery disease, status post coronary artery bypass surgery in 2006 at [facility], has a history of ETOH abuse; he is a smoker. He has multiple admissions to [facility] for chest pain. The patient has a history of multiple coronary stenting in the past. The most recent Myoview stress was done in October of last year and the SPECT Myocardial perfusion study revealed normal overall left ventricular systolic function despite paradoxical septal motion and was negative for ischemia. The patient presented because of chest pain. The patient denies any associated diaphoresis. The patient states that her chest pain resolves with sublingual nitroglycerin. MEDICATIONS: Coreg 3.125 mg twice a day, doxycycline 100 mg daily, albuterol inhaler, aspirin 81 mg a day, folic acid 1 mg once a day, heparin 5000 units subcutaneous twice a day, nitroglycerin sublingual p.r.n., Plavix 75 mg once a day, thiamine 100 mg once a day, Solu-Medrol 20 mg once a day, . REVIEW OF SYSTEMS: No fever or chills. No vomiting or diarrhea. PHYSICAL EXAMINATION GENERAL: The patient is a middle aged male, who does not appear to be in acute distress. VITAL SIGNS: Blood pressure 145/75, heart rate 64, temperature 98.2, respirations 18. HEENT: Normocephalic. NECK: No JVD. CHEST: Clear. HEART: S1 and S2 regular. ABDOMEN: Soft. EXTREMITIES: No edema. LABORATORY DATA: Hemoglobin and hematocrit 12.7 and 36.8, and white count and platelet count are within normal limits. SMA-7 is within normal limits except for glucose of 113 and BUN of 27. Three sets of troponins are negative. PT, PTT is within normal limits. EKG with sinus rhythm with anterior ST segment elevation, which has been common through the patient's frequent EKGs, which could represent earlier repolarization changes or pericarditis, however, definitely not myocardial injury, as enzymes are negative. Echocardiography study performed this past February revealed normal left ventricular size wall thickness and ejection fraction and there is a mid septal hypokinesis. ASSESSMENT: 1. Chest pain, myocardial infarction is ruled out. 2. Rule out relapsing pericarditis. 3. Coronary artery disease, status post coronary artery bypass surgery. 4. Chronic obstructive lung disease. RECOMMENDATIONS: Continue current aspirin and Pavex therapy, may discontinue beta blockers, continue Solu-Medrol and thiamine. Obtain a rheumatoid factor. Consider nonsteroidal anti-inflammatory agents. Mike Young MD
--- NOTE | 2017-04-11 18:49 | CARD ---
APPROVED REPORT EKG Measurement Heart [id number] <Conclusion> Normal sinus rhythm Normal ECG
--- NOTE | 2017-04-11 19:08 | CARD ---
APPROVED REPORT EKG Measurement Heart [id number] <Conclusion> Normal sinus rhythm ST elevation, consider pericarditis Abnormal ECG
== END 2017-04-11 15:36 | disposition home or self-care (01) ==
LOC: ED 17:59 → ERH 19:32 → 2RNO 21:31
PROVIDERS: ADMIT Internal Medicine; ATTEND Internal Medicine
DX: R07.89 Other chest pain (principal); I25.10 Atherosclerotic heart disease of native coronary artery without angina pectoris; J44.9 Chronic obstructive pulmonary disease, unspecified; I10 Essential (primary) hypertension; F17.210 Nicotine dependence, cigarettes, uncomplicated; K21.9 Gastro-esophageal reflux disease without esophagitis; Z91.19 Patient's noncompliance with other medical treatment and regimen; Z95.1 Presence of aortocoronary bypass graft; Z95.5 Presence of coronary angioplasty implant and graft; Z79.02 Long term (current) use of antithrombotics/antiplatelets; Z79.82 Long term (current) use of aspirin
CPT/HCPCS: 36415; 71010; 80053; 80324; 80345; 80346; 80349; 80353; 80358; 80361; 82550; 83520; 83615; 83690; 83735; 83880; 83992; 84100; 84484; 85025; 85610; 85730; 93005; 94640; 96374; 99285; G0378; J1644; J2920; J2930

== ENCOUNTER 2017-04-15 19:00 | Emergency (ER) | payer MEDICAID ==
[2017-04-15 19:08] VITALS: BMI 22.1
[2017-04-15 19:12] VITALS: BP 99/65; PULSE 89; RESP 18; TEMP 98.2; O2SAT 96
== END 2017-04-15 20:01 | disposition left against medical advice (07) ==
LOC: ED 19:00
DX: Z02.89 Encounter for other administrative examinations (principal); M62.81 Muscle weakness (generalized)

== ENCOUNTER 2017-04-18 14:44 | Emergency (ER) | payer MEDICAID ==
[2017-04-18 14:44] VITALS: BMI 22.1
[2017-04-18 15:14] VITALS: TEMP 99.6
[2017-04-18] MEDS ORDERED: Oxycodone/Acetaminophen 5/325 mg Tab PO STA (15:25)
--- NOTE | 2017-04-18 15:33 | ED PDOC ---
Arrival/HPI - General Chief Complaint: Lower Extremity Problem/Injury Time Seen by Provider: 04/18/17 14:58 Historian: Patient - History of Present Illness Narrative History of Present Illness (Text): 04/18/17 15:27 A 62 year old male, with a history of leg cramping in the past, presents to the emergency department complaining of bilateral upper leg cramping for 1 week. Patient reports he was seen by his PMD and given Icy Hot Patches with no improvement of symptoms. Patient denies any lower extremity swelling, fever, chills, nausea, vomiting, diarrhea, abdominal pain, chest pain, shortness of breath or any other complaints. Time/Duration: 1 week Symptom Course: Unchanged Quality: Other Context: Home Past Medical History - Provider Review Nursing Documentation Reviewed: Yes - Past History Past History: No Previous - Infectious Disease Hx of Infectious Diseases: None - Tetanus Immunization Tetanus Immunization: Unknown - Reproductive Currently : No - Cardiac Hx Cardiac Disorders: Yes (CT) Hx Hypertension: Yes Other/Comment: CABG. BYPASS. 3 STENTS - Pulmonary Hx Respiratory Disorders: Yes Hx Bronchitis: Yes Hx Chronic Obstructive Pulmonary Disease (COPD): Yes Hx Tuberculosis: No - Neurological Hx Neurological Disorder: No (denies) - HEENT Hx HEENT Disorder: Yes Hx Cataracts: Yes (right eye) Hx Glaucoma: No - Renal Hx Renal Disorder: No - Endocrine/Metabolic Hx Endocrine Disorders: No - Hematological/Oncological Hx Blood Disorders: Yes (blood transfusion) Hx Anemia: Yes Hx Cancer: No - Integumentary Hx Dermatological Disorder: No - Musculoskeletal/Rheumatological Hx Musculoskeletal Disorders: No Hx Falls: No - Gastrointestinal Hx Gastrointestinal Disorders: Yes Hx Gall Bladder Disease: Yes (Gall stones removed) Hx Gastroesophageal Reflux: Yes - Genitourinary/Gynecological Hx Genitourinary Disorders: No (denies) - Psychiatric Hx Psychophysiologic Disorder: Yes Hx Anxiety: Yes Hx Substance Use: Yes (marijuana) - Surgical History Hx Cardiac Catheterization: Yes Hx Coronary Artery Bypass Graft: Yes Hx Coronary Stent: Yes (x3) Hx Open Heart Surgery: Yes - Anesthesia Hx Anesthesia: Yes Hx Anesthesia Reactions: No Hx Malignant Hyperthermia: No - Suicidal Assessment Feels Threatened In Home Enviroment: No Family/Social History - Physician Review Nursing Documentation Reviewed: Yes Family/Social History: No Known Family HX Smoking Status: Heavy Smoker > 10 Cigarettes Daily Hx Alcohol Use: Yes Frequency of alcohol use: Few days per week Hx Substance Use: Yes (marijuana) Substance used: HEROIN, MARIJUANA Hx Substance Use Treatment: No Allergies/Home Meds Allergies/Adverse Reactions: Allergies shellfish derived Allergy (Verified 04/18/17 15:13) ANAPHYLAXIS Sulfa (Sulfonamide Antibiotics) Allergy (Verified 04/18/17 15:13) RASH Home Medications: Home Meds Medication Instructions Recorded Confirmed Albuterol HFA [Ventolin HFA 90 2 puff IH PRN PRN 02/21/17 04/18/17 mcg/actuation (8 g)] Aspirin [Adult Low Dose Aspirin EC] 81 mg PO DAILY 02/21/17 04/18/17 Carvedilol [Coreg] 3.125 mg PO BID 02/21/17 04/18/17 Fluticasone/Salmeterol 500/50 1 puff IH DAILY 02/21/17 04/18/17 [Advair Diskus 500/50] Isosorbide Mononitrate [Isosorbide 30 mg PO DAILY 02/21/17 04/18/17 Mononitrate ER] Montelukast Sodium [Singulair] 10 mg PO DAILY 02/21/17 04/18/17 Nitroglycerin [Nitrostat] 0.4 mg SL PRN PRN 02/21/17 04/18/17 Omeprazole 20 mg PO DAILY 02/21/17 04/18/17 Thiamine Mononitrate [Vitamin B-1] 100 mg PO DAILY 02/21/17 04/18/17 Ammonium Lactate [Deedee-Hydrolac] 1 appful TD DAILY 04/10/17 04/18/17 Betamethasone Dipropion Augmen 1 appful TD DAILY 04/10/17 04/18/17 [Diprolene AF 0.05%] Clopidogrel [Plavix] 75 mg PO DAILY 04/10/17 04/18/17 Folic Acid [Folic Acid] 1 mg PO DAILY 04/10/17 04/18/17 Diclofenac Sodium [Voltaren] 1 appful TOP PRN PRN 04/18/17 04/18/17 Review of Systems - Physician Review All systems were reviewed & negative as marked: Yes - Review of Systems Constitutional: absent: Fevers, Night Sweats Respiratory: absent: SOB Cardiovascular: absent: Chest Pain, Edema Gastrointestinal: absent: Abdominal Pain, Diarrhea, Nausea, Vomiting Musculoskeletal: Other (Bilateral upper leg cramping) Physical Exam Vital Signs Reviewed: Yes Vital Signs Temp Pulse Resp BP Pulse Ox 04/18/17 16:40 89 98 H 131/70 18 L 04/18/17 15:13 99.6 F 92 H 16 134/68 97 Temperature: Afebrile Blood Pressure: Normal Pulse: Tachycardic Respiratory Rate: Normal Appearance: Positive for: Well-Appearing, Non-Toxic, Comfortable Pain Distress: None Mental Status: Positive for: Alert and Oriented X 3 - Systems Exam Head: Present: Atraumatic, Normocephalic Pupils: Present: PERRL Extroacular Muscles: Present: EOMI Conjunctiva: Present: Normal Mouth: Present: Moist Mucous Membranes Neck: Present: Normal Range of Motion Respiratory/Chest: Present: Clear to Auscultation, Good Air Exchange. No: Respiratory Distress, Accessory Muscle Use Cardiovascular: Present: Regular Rate and Rhythm, Normal S1, S2. No: Murmurs Abdomen: Present: Normal Bowel Sounds. No: Tenderness, Distention, Peritoneal Signs Back: Present: Normal Inspection Upper Extremity: Present: Normal Inspection. No: Cyanosis, Edema Lower Extremity: Present: NORMAL PULSES, Normal ROM, Tenderness (Scant muscle spasms in bilateral upper thighs, NO bony tenderness), Neurovascularly Intact. No: Edema, CALF TENDERNESS, Swelling, Temperature Abnormalties Neurological: Present: GCS=15, CN II-XII Intact, Speech Normal Skin: Present: Warm, Dry, Normal Color. No: Rashes Psychiatric: Present: Alert, Oriented x 3, Normal Insight, Normal Concentration Medical Decision Making ED Course and Treatment: 04/18/17 15:27 Impression: A 62 year old male with bilateral upper thigh cramping. No swelling or other complaints. Differential Diagnosis included but are not limited to: Rule out electrolyte abnormalities Plan: -- Labs -- Percocet -- Reassess and disposition Progress Notes: 04/18/17 17:15 Labs grossly normal. Patient feels better and is ambulating around without issue. - Lab Interpretations Lab Results: 04/18/17 15:55 04/18/17 15:55 Lab Results 04/18/17 15:55: Sodium 138, Potassium 4.6, Chloride 102, Carbon Dioxide 28, Anion Gap 13, BUN 16, Creatinine 0.8, Est GFR ( Amer) > 60, Est GFR (Non- Af Amer) > 60, Random Glucose 91, Calcium 9.0, Total Bilirubin 0.6, AST 46, ALT 34, Alkaline Phosphatase 69, Total Protein 6.6, Albumin 3.9, Globulin 2.7, Albumin/Globulin Ratio 1.4 04/18/17 15:55: WBC 6.7 D, RBC 3.47 L, Hgb 11.5 L, Hct 34.2 L, MCV 98.6, MCH 33.1, MCHC 33.6, RDW 14.1, Plt Count 178, MPV 9.1, Gran % 56.8, Lymph % (Auto) 30.7, [place] % (Auto) 9.3 H, Eos % (Auto) 3.1, Baso % (Auto) 0.1, Gran # 3.79, Lymph # 2.1, [place] # 0.6, Eos # 0.2, Baso # 0.01 I have reviewed the lab results: Yes - Medication Orders Current Medication Orders: Discontinued Medications Oxycodone/Acetaminophen (Percocet 5/325 Mg Tab) 1 tab PO STAT STA Stop: 04/18/17 15:26 Last Admin: 04/18/17 16:05 Dose: 1 tab MAR Pain Assessment Document 04/18/17 16:05 SF (Rec: 04/18/17 16:05 SF [facility] [id number]) Pain Reassessment Is this a pain reassessment? Yes Sleep Is patient sleeping during reassessment? No Presence of Pain Presence of Pain Yes - Scribe Statement The provider has reviewed the documentation as recorded by the rAina Orellana Provider Scribe Attestation: All medical record entries made by the Sarahibinga were at my direction and personally dictated by me. I have reviewed the chart and agree that the record accurately reflects my personal performance of the history, physical exam, medical decision making, and the department course for this patient. I have also personally directed, reviewed, and agree with the discharge instructions and disposition. Disposition/Present on Arrival - Present on Arrival Any Indicators Present on Arrival: No History of DVT/PE: No History of Uncontrolled Diabetes: No Urinary Catheter: No History of Decub. Ulcer: No History Surgical Site Infection Following: None - Disposition Have Diagnosis and Disposition been Completed?: Yes Diagnosis: Muscle cramps Disposition: HOME/ ROUTINE Disposition Time: 16:35 Patient Plan: Discharge Condition: GOOD Discharge Instructions (ExitCare): Leg Cramps (ED) Additional Instructions: Follow up with PMD within 2 days. Drink copious fluids. Return immediately with any worsening symptoms. Referrals: Lauren Damon DO [Primary Care Provider] - Follow up with primary Forms: [facility] ([place])
[2017-04-18 16:09] LABS: BASO # 0.01 K/mm3 (0.0-2.0); BASO % 0.1 % (0.0-3.0); EOS # 0.2 (0.0-0.7); EOS % 3.1 % (1.5-5.0); GRAN # 3.79 (1.4-6.5); GRAN % 56.8 % (50.0-68.0); HEMATOCRIT 34.2 % (42.0-52.0); LYMPH # 2.1 (1.2-3.4); LYMPH % 30.7 % (22.0-35.0); MEAN CELL VOLUME 98.6 fl (80.0-105.0); MEAN CORPUSCULAR HEMOGLOBIN 33.1 pg (25.0-35.0); MEAN CORPUSCULAR HGB CONC 33.6 g/dl (31.0-37.0); MEAN PLATELET VOLUME 9.1 fl (7.0-11.0); MONO # 0.6 (0.1-0.6); MONO % 9.3 % (1.0-6.0); RED CELL DISTRIBUTION WIDTH 14.1 % (11.5-14.5); WHITE BLOOD COUNT 6.7 10^3/ul (4.5-11.0)
[2017-04-18 16:23] LABS: ALB/GLOB RATIO 1.4 (1.1-1.8); ALKALINE PHOSPHATASE 69 U/L (38-126); ALT/SGPT 34 U/L (7-56); AST/SGOT 46 U/L (17-59); BILIRUBIN,TOTAL 0.6 mg/dL (0.2-1.3); BLOOD UREA NITROGEN 16 mg/dL (7-21); CARBON DIOXIDE 28 mmol/L (21-33); CHLORIDE 102 mmol/L (98-107); GFR AFRICAN-AMERICAN > 60; GLUCOSE,RANDOM 91 mg/dL (70-110); POTASSIUM 4.6 mmol/L (3.6-5.0); SODIUM 138 mmol/L (132-148); TOTAL PROTEIN 6.6 g/dL (5.8-8.3)
[2017-04-18 16:42] VITALS: BP 131/70; PULSE 89; RESP 98; O2SAT 18
== END 2017-04-18 16:45 | disposition home or self-care (01) ==
LOC: ED 14:44
DX: R25.2 Cramp and spasm (principal)

== ENCOUNTER 2017-04-23 14:25 | Observation (INO) | payer MEDICAID ==
[2017-04-23 14:26] VITALS: BMI 22.1
[2017-04-23 15:16] LABS: BASO # 0.03 K/mm3 (0.0-2.0); BASO % 0.6 % (0.0-3.0); EOS # 0.2 (0.0-0.7); GRAN # 2.64 (1.4-6.5); GRAN % 54.7 % (50.0-68.0); LYMPH # 1.6 (1.2-3.4); LYMPH % 32.5 % (22.0-35.0); MEAN CELL VOLUME 100.3 fl (80.0-105.0); MEAN CORPUSCULAR HEMOGLOBIN 33.3 pg (25.0-35.0); MEAN CORPUSCULAR HGB CONC 33.2 g/dl (31.0-37.0); MEAN PLATELET VOLUME 9.3 fl (7.0-11.0); MONO # 0.4 (0.1-0.6); MONO % 7.2 % (1.0-6.0); WHITE BLOOD COUNT 4.8 10^3/ul (4.5-11.0)
[2017-04-23 15:25] LABS: ALB/GLOB RATIO 1.5 (1.1-1.8); ALKALINE PHOSPHATASE 70 U/L (38-126); ALT/SGPT 28 U/L (7-56); AST/SGOT 41 U/L (17-59); BILIRUBIN,TOTAL 0.4 mg/dL (0.2-1.3); BLOOD UREA NITROGEN 14 mg/dL (7-21); CALCIUM 9.3 mg/dL (8.4-10.5); CARBON DIOXIDE 31 mmol/L (21-33); CHLORIDE 99 mmol/L (98-107); GFR AFRICAN-AMERICAN > 60; GLUCOSE,RANDOM 86 mg/dL (70-110); POTASSIUM 4.9 mmol/L (3.6-5.0); SODIUM 137 mmol/L (132-148); TOTAL PROTEIN 7.1 g/dL (5.8-8.3)
[2017-04-23 15:26] LABS: INR 0.94 (0.93-1.08); PARTIAL THROMBOPLASTIN TIME 26.1 Seconds (23.7-30.8)
--- NOTE | 2017-04-23 15:26 | ED PDOC ---
Arrival/HPI - General Chief Complaint: Chest Pain Time Seen by Provider: 04/23/17 14:36 Historian: Patient - History of Present Illness Narrative History of Present Illness (Text): 04/23/17 15:15 A 62 year old male, whose past medical history includes several cardiac stents, stress test in 2016 which was negative. He had a CABG in 2006 at [facility] he also has a history of alcohol abuse. COPD on inhaler, current smoker and GERD, presents to the emergency department complaining of midsternal chest pain and shortness of breath prior to arrival. Patient reports his pain began after walking up the stairs to his apartment. Patient took nitroglycerin, with mild relief. He states he continued to walk up the stairs and again experienced the pain. Patient reports his pain resolved after rest. He notes a productive cough for 4 days, fever and chills at night and mild nausea. Patient denies any radiating pain to neck or back, lower extremity pain/ swelling, vomiting, abdominal pain, headache, dizziness or any other complaints. Patient was recently admitted 2 weeks ago for chest pain and has had many admissions for chest pain he remains on aspirin and Plavix. Patient is not on O2 at home or prednisone, nor does he take diuretics. Time/Duration: Prior to Arrival Symptom Course: Resolved (after rest) Quality: Other Context: Home Past Medical History - Provider Review Nursing Documentation Reviewed: Yes - Past History Past History: No Previous - Infectious Disease Hx of Infectious Diseases: None - Tetanus Immunization Tetanus Immunization: Unknown - Reproductive Currently : No - Cardiac Hx Cardiac Disorders: Yes ([place]) Hx Hypertension: Yes Other/Comment: CABG. BYPASS. 3 STENTS - Pulmonary Hx Respiratory Disorders: Yes Hx Bronchitis: Yes Hx Chronic Obstructive Pulmonary Disease (COPD): Yes Hx Tuberculosis: No - Neurological Hx Neurological Disorder: No (denies) - HEENT Hx HEENT Disorder: Yes Hx Cataracts: Yes (right eye) Hx Glaucoma: No - Renal Hx Renal Disorder: No - Endocrine/Metabolic Hx Endocrine Disorders: No - Hematological/Oncological Hx Blood Disorders: Yes (blood transfusion) Hx Anemia: Yes Hx Cancer: No - Integumentary Hx Dermatological Disorder: No - Musculoskeletal/Rheumatological Hx Musculoskeletal Disorders: Yes - Gastrointestinal Hx Gastrointestinal Disorders: Yes Hx Gall Bladder Disease: Yes (Gall stones removed) Hx Gastroesophageal Reflux: Yes - Genitourinary/Gynecological Hx Genitourinary Disorders: No (denies) - Psychiatric Hx Psychophysiologic Disorder: Yes Hx Anxiety: Yes Hx Substance Use: No - Surgical History Hx Cardiac Catheterization: Yes Hx Coronary Artery Bypass Graft: Yes Hx Coronary Stent: Yes (x3) Hx Open Heart Surgery: Yes - Anesthesia Hx Anesthesia: Yes Hx Anesthesia Reactions: No Hx Malignant Hyperthermia: No - Suicidal Assessment Feels Threatened In Home Enviroment: No Family/Social History - Physician Review Nursing Documentation Reviewed: Yes Family/Social History: No Known Family HX Smoking Status: Heavy Smoker > 10 Cigarettes Daily Hx Alcohol Use: Yes Hx Substance Use: No Substance used: HEROIN, MARIJUANA Hx Substance Use Treatment: No Allergies/Home Meds Allergies/Adverse Reactions: Allergies shellfish derived Allergy (Verified 04/18/17 15:13) ANAPHYLAXIS Sulfa (Sulfonamide Antibiotics) Allergy (Verified 04/18/17 15:13) RASH Home Medications: Home Meds Medication Instructions Recorded Confirmed Albuterol HFA [Ventolin HFA 90 2 puff IH PRN PRN 02/21/17 04/23/17 mcg/actuation (8 g)] Aspirin [Adult Low Dose Aspirin EC] 81 mg PO DAILY 02/21/17 04/23/17 Carvedilol [Coreg] 3.125 mg PO BID 02/21/17 04/23/17 Fluticasone/Salmeterol 500/50 1 puff IH DAILY 02/21/17 04/23/17 [Advair Diskus 500/50] Isosorbide Mononitrate [Isosorbide 30 mg PO DAILY 02/21/17 04/23/17 Mononitrate ER] Montelukast Sodium [Singulair] 10 mg PO DAILY 02/21/17 04/23/17 Nitroglycerin [Nitrostat] 0.4 mg SL PRN PRN 02/21/17 04/23/17 Omeprazole 20 mg PO DAILY 02/21/17 04/23/17 Thiamine Mononitrate [Vitamin B-1] 100 mg PO DAILY 02/21/17 04/23/17 Ammonium Lactate [Deedee-Hydrolac] 1 appful TD DAILY 04/10/17 04/23/17 Betamethasone Dipropion Augmen 1 appful TD DAILY 04/10/17 04/23/17 [Diprolene AF 0.05%] Clopidogrel [Plavix] 75 mg PO DAILY 04/10/17 04/23/17 Folic Acid [Folic Acid] 1 mg PO DAILY 04/10/17 04/23/17 Diclofenac Sodium [Voltaren] 1 appful TOP PRN PRN 04/18/17 04/23/17 Review of Systems - Physician Review All systems were reviewed & negative as marked: Yes - Review of Systems Constitutional: Fevers, Night Sweats Respiratory: SOB, Cough, Sputum Cardiovascular: Chest Pain Gastrointestinal: Nausea. absent: Abdominal Pain, Vomiting Musculoskeletal: absent: Back Pain, Neck Pain, Other (lower extremity pain/ swelling) Neurological: absent: Headache, Dizziness Physical Exam Vital Signs Reviewed: Yes Vital Signs Temp Pulse Resp BP Pulse Ox 04/23/17 19:07 75 20 104/61 99 04/23/17 18:30 60 16 95/64 L 100 04/23/17 17:30 62 21 117/62 99 04/23/17 16:30 61 20 100/65 100 04/23/17 15:30 70 18 100/58 L 99 04/23/17 15:05 91 H 18 105/69 96 04/23/17 15:01 85 20 91/66 L 96 04/23/17 14:42 98.1 F 83 18 131/60 99 Temperature: Afebrile Blood Pressure: Normal Pulse: Regular Respiratory Rate: Normal Appearance: Positive for: Well-Appearing, Non-Toxic, Comfortable Pain Distress: None Mental Status: Positive for: Alert and Oriented X 3 - Systems Exam Head: Present: Atraumatic, Normocephalic Pupils: Present: PERRL Extroacular Muscles: Present: EOMI Conjunctiva: Present: Normal Mouth: Present: Moist Mucous Membranes Neck: Present: Normal Range of Motion Respiratory/Chest: Present: Clear to Auscultation, Good Air Exchange. No: Respiratory Distress, Accessory Muscle Use Cardiovascular: Present: Regular Rate and Rhythm, Normal S1, S2. No: Murmurs Abdomen: Present: Normal Bowel Sounds. No: Tenderness, Distention, Peritoneal Signs Back: Present: Normal Inspection Upper Extremity: Present: Normal Inspection. No: Cyanosis, Edema Lower Extremity: Present: Normal Inspection. No: Edema Neurological: Present: GCS=15, CN II-XII Intact, Speech Normal Skin: Present: Warm, Dry, Normal Color. No: Rashes Psychiatric: Present: Alert, Oriented x 3, Normal Insight, Normal Concentration Medical Decision Making ED Course and Treatment: 04/23/17 15:15 Impression: A 62 year old with exertional chest pain and shortness of breath. Patient notes productive cough, fever, chills and mild nausea. Plan: -- Chest xray -- EKG -- Labs -- Urinalysis -- Aspirin -- Reassess and disposition Progress Notes: Report Date : 04/23/2017 15:41:33 Procedure: Chest xray Dictator : Della Chaudhry MD IMPRESSION: No acute findings. 04/23/17 17:11 62-year-old male presenting with chest pain responsive to nitroglycerin. We've been here multiple times for chest pain he also has a component of COPD his chest x-ray is clear troponin is negative EKG appears unremarkable however given his nitroglycerin responsive pain and concerned about angina he does have known coronary artery disease discussed the case with cardiology and hopefully transient and likely discharge. However it is been at least 4 years from his last catheterization in 1 year from his last stress test. He concerned about his worsening symptoms. And he may benefit from a cardiac evaluation if they plan on doing intervention. 04/23/17 17:30 Cardiology paged, awaiting call back. 04/23/17 17:53 Multiple attempts to contact cardiology with no success (dr. Cunningham). Despite his multiple visits here i cannot discharge without clearance from cardiology. Plan is to admit due to cardiac risk factors (multiple stents, CABG, anginal type pain with minimal exertoin) for chest pain to rule out CAD with coincident COPD exacerbation. Patient is actively complaining of chest pain, he was given NTG and ASA. 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 Reports he has not followed up with cardiology. 04/23/17 17:[address] Ramirez, who agrees with admission under his service. 04/23/17 22:16 04/23/17 22:[address] Liu at 20:00 - Lab Interpretations Lab Results: 04/23/17 14:40 04/23/17 14:40 Lab Results 04/23/17 14:40: Sodium 137, Potassium 4.9, Chloride 99, Carbon Dioxide 31, Anion Gap 12, BUN 14, Creatinine 0.9, Est GFR ( Amer) > 60, Est GFR (Non- Af Amer) > 60, Random Glucose 86, Calcium 9.3, Total Bilirubin 0.4, AST 41, ALT 28, Alkaline Phosphatase 70, Lactate Dehydrogenase 471, Total Creatine Kinase 161, Troponin I < 0.01, Total Protein 7.1, Albumin 4.3, Globulin 2.9, Albumin/ Globulin Ratio 1.5 04/23/17 14:40: PT 10.1, INR 0.94, APTT 26.1 04/23/17 14:40: WBC 4.8 D, RBC 3.69, Hgb 12.3 L, Hct 37.0 L, MCV 100.3, MCH 33.3, MCHC 33.2, RDW 14.0, Plt Count 225, MPV 9.3, Gran % 54.7, Lymph % (Auto) 32.5, [place] % (Auto) 7.2 H, Eos % (Auto) 5.0, Baso % (Auto) 0.6, Gran # 2.64, Lymph # 1.6, [place] # 0.4, Eos # 0.2, Baso # 0.03 I have reviewed the lab results: Yes - RAD Interpretation Radiology Orders: 04/23/17 14:42 CHEST PORTABLE [RAD] Stat - EKG Interpretation EKG Interpretation (Text): 04/23/17 17:10 A 1 bpm normal sinus rhythm with minimal ST elevations in V45 and [address] depression in 3 or aVF normal axis and normal QRS of 72 ms no significant change Interpreted by ED Physician: Yes Type: 12 lead EKG Comparison: Similar to previous EKG - Medication Orders Current Medication Orders: Albuterol/Ipratropium (Duoneb 3 Mg/0.5 Mg (3 Ml) Ud) 3 ml IH [id number] [facility] Last Admin: 04/23/17 20:35 Dose: 3 ml Albuterol/Ipratropium (Duoneb 3 Mg/0.5 Mg (3 Ml) Ud) 3 ml IH Q2H PRN PRN Reason: Shortness of Breath Last Admin: 04/23/17 22:01 Dose: 3 ml Arformoterol Tartrate (Brovana) 15 mcg IH [id number] [facility] Last Admin: 04/23/17 20:35 Dose: 15 mcg Aspirin (Ecotrin) 81 mg PO DAILY [facility] Atorvastatin Calcium (Lipitor) 40 mg PO DIN [facility] Last Admin: 04/23/17 18:57 Dose: 40 mg Budesonide (Pulmicort Respules) 1 mg IH [id number] [facility] Last Admin: 04/23/17 22:01 Dose: 1 mg Carvedilol (Coreg) 3.125 mg PO BID [facility] Last Admin: 04/23/17 18:59 Dose: Clopidogrel Bisulfate (Plavix) 75 mg PO DAILY [facility] Folic Acid (Folic Acid) 1 mg PO DAILY [facility] Guaifenesin (Robitussin) 100 mg PO Q4H PRN PRN Reason: Cough Last Admin: 04/23/17 21:45 Dose: 100 mg Isosorbide Mononitrate (Imdur Er) 30 mg PO DAILY [facility] Montelukast Sodium (Singulair) 10 mg PO HS [facility] Last Admin: 04/23/17 21:45 Dose: 10 mg Nicotine (Nicoderm Cq) 1 patch TD DAILY [facility] Pantoprazole Sodium (Protonix Ec Tab) 40 mg PO 0600 [facility] Discontinued Medications Aspirin (Aspirin Chewable) 243 mg PO STAT STA Stop: 04/23/17 15:17 Last Admin: 04/23/17 15:44 Dose: Azithromycin (Zithromax) 500 mg PO STAT STA PRN Reason: Protocol Stop: 04/23/17 16:25 Last Admin: 04/23/17 16:46 Dose: 500 mg Nitroglycerin (Nitro-Bid 2% Oint) 1 ea TOP STAT STA Stop: 04/23/17 17:56 Last Admin: 04/23/17 18:58 Dose: Prednisone (Prednisone Tab) 60 mg PO STAT ONE Stop: 04/23/17 16:25 Last Admin: 04/23/17 16:45 Dose: 60 mg - Scribe Statement The provider has reviewed the documentation as recorded by the Arina Orellana Provider Scribe Attestation: All medical record entries made by the Sarahibinga were at my direction and personally dictated by me. I have reviewed the chart and agree that the record accurately reflects my personal performance of the history, physical exam, medical decision making, and the department course for this patient. I have also personally directed, reviewed, and agree with the discharge instructions and disposition. Disposition/Present on Arrival - Present on Arrival Any Indicators Present on Arrival: No History of DVT/PE: No History of Uncontrolled Diabetes: No Urinary Catheter: No History of Decub. Ulcer: No History Surgical Site Infection Following: None - Disposition Have Diagnosis and Disposition been Completed?: Yes Diagnosis: Coronary artery disease, Chest pain, COPD (chronic obstructive pulmonary disease) Disposition: HOSPITALIZED Disposition Time: 17:30 Patient Plan: Observation, Telemetry Condition: IMPROVED
[2017-04-23 15:39] LABS: TROPONIN I < 0.01 ng/mL
--- NOTE | 2017-04-23 15:43 | RAD ---
HISTORY: Chest pain COMPARISON: 04/10/2017. FINDINGS: LUNGS: The lungs are well inflated and clear. PLEURA: No significant pleural effusion identified, no pneumothorax apparent. CARDIOVASCULAR: The heart is normal in size. Status post CABG. OSSEOUS STRUCTURES: There are subacute healing fractures in the left posterior 8 and 9th ribs. VISUALIZED UPPER ABDOMEN: Normal. OTHER FINDINGS: None. IMPRESSION: No acute findings.
[2017-04-23] MEDS ORDERED: Albuterol-Ipratrop 3 mg / 0.5 (3 ml) UD ONE (16:09)
[2017-04-23] MEDS ORDERED: Nitroglycerin 2% Ointment Foilpak UD TOP STA (17:55)
[2017-04-23] MEDS ORDERED: Albuterol-Ipratrop 3 mg / 0.5 (3 ml) UD IH PRN (18:17)
--- NOTE | 2017-04-23 18:52 | CP.PCM.HP ---
<Irving Simpson - Last Filed: 04/23/17 19:01> History of Present Illness - History of Present Illness History of Present Illness: CC: Chest pain 62 yo M with PMH of CAD with MIx4 s/p stents x4 and CABG (triple bypass) in 2005 , COPD, HTN, who presents complaining of CP and SOB. Patient was walking home from work and started having chest pain radiated down his left arm. Patient said he normally takes nitro for the pain but it did not alleviate his pain. Pain was associated with some SOB, denies any diaphoresis, N/V, claudication. Pain was 8/10 in severity. Pt also complains of cough with yellow sputum that started a few days ago. Denies any fevers but does complain of chills. Denies any body pain. 12 point ROS performed and negative other than stated above. PMH: CAD w/ stents x4, COPD, EtOH abuse, HTN, depression, peripheral neuropathy , cholelithiasis PSH: right carotid endartectomy, CABG (triple bypass) 2005, cholecystectomy Soc hx: daily smoker 4-5 cig daily; hx of alcohol abuse, last drink 10/2016; pmh of marijuana and heroin abuse Allergies: sulfa drugs & shellfish Meds: refer to [facility] Family hx: DM Present on Admission - Present on Admission Any Indicators Present on Admission: No Review of Systems - Review of Systems All systems: reviewed and no additional remarkable complaints except (HPI) Past Patient History - Infectious Disease Hx of Infectious Diseases: None - Tetanus Immunizations Tetanus Immunization: Unknown - Past Medical History & Family History Past Medical History?: Yes - Past Social History Smoking Status: Heavy Smoker > 10 Cigarettes Daily - CARDIAC Hx Cardiac Disorders: Yes ([place]) Hx Hypertension: Yes Other/Comment: CABG. BYPASS. 3 STENTS - PULMONARY Hx Respiratory Disorders: Yes Hx Bronchitis: Yes Hx Chronic Obstructive Pulmonary Disease (COPD): Yes Hx Tuberculosis: No - NEUROLOGICAL Hx Neurological Disorder: No (denies) - HEENT Hx HEENT Problems: Yes Hx Cataracts: Yes (right eye) Hx Glaucoma: No - RENAL Hx Chronic Kidney Disease: No - ENDOCRINE/METABOLIC Hx Endocrine Disorders: No - HEMATOLOGICAL/ONCOLOGICAL Hx Blood Disorders: Yes (blood transfusion) Hx Anemia: Yes Hx Cancer: No - INTEGUMENTARY Hx Dermatological Problems: No - MUSCULOSKELETAL/RHEUMATOLOGICAL Hx Musculoskeletal Disorders: Yes - GASTROINTESTINAL Hx Gastrointestinal Disorders: Yes Hx Gall Bladder Disease: Yes (Gall stones removed) Hx Gastroesophageal Reflux: Yes - GENITOURINARY/GYNECOLOGICAL Hx Genitourinary Disorders: No (denies) - PSYCHIATRIC Hx Psychophysiologic Disorder: Yes Hx Anxiety: Yes Hx Substance Use: No - SURGICAL HISTORY Hx Cardiac Catheterization: Yes Hx Coronary Artery Bypass Graft: Yes Hx Coronary Stent: Yes (x3) Hx Open Heart Surgery: Yes - ANESTHESIA Hx Anesthesia: Yes Hx Anesthesia Reactions: No Hx Malignant Hyperthermia: No Meds Home Medications: Home Medication List Medication Instructions Recorded Confirmed Type Albuterol HFA [Ventolin HFA 90 2 puff IH [id number] #1 puff 04/24/17 Rx mcg/actuation (8 g)] Methylprednisolone [Medrol Dose 4 mg PO DAILY #21 mg 04/24/17 Rx Pack (21 tabs)] Allergies/Adverse Reactions: Allergies Allergy/AdvReac Type Severity Reaction Status Date / Time shellfish derived Allergy ANAPHYLAXIS Verified 04/18/17 15:13 Sulfa (Sulfonamide Allergy RASH Verified 04/18/17 15:13 Antibiotics) Physical Exam - Constitutional Appears: No Acute Distress - Head Exam Head Exam: ATRAUMATIC, NORMOCEPHALIC - Eye Exam Eye Exam: EOMI, PERRL - ENT Exam ENT Exam: Mucous Membranes Moist - Respiratory Exam Respiratory Exam: Clear to Auscultation Bilateral. absent: Rales, Rhonchi, Wheezes - Cardiovascular Exam Cardiovascular Exam: REGULAR RHYTHM, RRR, +S1, +S2 - GI/Abdominal Exam GI & Abdominal Exam: Normal Bowel Sounds, Soft. absent: Tenderness - Extremities Exam Extremities exam: Negative for: calf tenderness, pedal edema - Neurological Exam Neurological exam: Alert, CN II-XII Intact, Oriented x3 - Psychiatric Exam Psychiatric exam: Normal Affect, Normal Mood - Skin Skin Exam: Dry, Intact, Normal Color, Warm Results - Vital Signs Recent Vital Signs: Last Vital Signs Temp 98.1 F 04/23/17 14:42 Pulse 83 04/23/17 14:42 Resp 18 04/23/17 14:42 BP 131/60 04/23/17 14:42 Pulse Ox 99 04/23/17 14:42 - Labs Result Diagrams: 04/23/17 14:40 04/23/17 14:40 Labs: Laboratory Results - last 24 hr 04/23/17 04/23/17 04/23/17 14:40 14:40 14:40 WBC 4.8 D RBC 3.69 Hgb 12.3 L Hct 37.0 L MCV 100.3 MCH 33.3 MCHC 33.2 RDW 14.0 Plt Count 225 MPV 9.3 Gran % 54.7 Lymph % (Auto) 32.5 [place] % (Auto) 7.2 H Eos % (Auto) 5.0 Baso % (Auto) 0.6 Gran # 2.64 Lymph # 1.6 [place] # 0.4 Eos # 0.2 Baso # 0.03 PT 10.1 INR 0.94 APTT 26.1 Sodium 137 Potassium 4.9 Chloride 99 Carbon Dioxide 31 Anion Gap 12 BUN 14 Creatinine 0.9 Est GFR ( Amer) > 60 Est GFR (Non-Af Amer) > 60 Random Glucose 86 Calcium 9.3 Total Bilirubin 0.4 AST 41 ALT 28 Alkaline Phosphatase 70 Lactate Dehydrogenase 471 Total Creatine Kinase 161 Troponin I < 0.01 Total Protein 7.1 Albumin 4.3 Globulin 2.9 Albumin/Globulin Ratio 1.5 Assessment & Plan - Assessment and Plan (Free Text) Assessment: 62 yo M with PMH of CAD with MIx4 s/p stents x4 and CABG (triple bypass) in 2006 , COPD, HTN, who presents complaining of CP and SOB. 1. Chest pain r/o ACS - Trops x 1 neg - Serial troponin - Cardiology consulted for recs - EKG reviewed and no changes from prior - Cardiology consult for recs - Recent echo 02/2017 - reviewed - EF 50% - Cont ASA, Plavix, Lipitor - AM labs 2. COPD - Duonebs PRN - Cont Brovana, Singular - CXR - no active dx 3. Cough - Viral vs bronchitis vs PNA - Monitor off abx for now since afebril, no leukocytosis - CXR - no active dx - F/u rapid flu, PCT - Robitussin as needed 4. GI/DVT ppx - Protonix and SCDs Case and plan was reviewed and discussed with Dr Ramirez. <Capo Ramirez - Last Filed: 04/24/17 16:10> Results - Vital Signs Recent Vital Signs: Last Vital Signs Temp 97.8 F 04/24/17 12:00 Pulse 72 04/24/17 14:00 Resp 18 04/24/17 12:00 BP 133/74 04/24/17 12:00 Pulse Ox 99 04/24/17 06:00 - Labs Result Diagrams: 04/24/17 09:00 04/24/17 09:00 Labs: Laboratory Results - last 24 hr 04/23/17 04/23/17 04/23/17 18:00 19:00 20:00 WBC RBC Hgb Hct MCV MCH MCHC RDW Plt Count MPV Gran % Lymph % (Auto) [place] % (Auto) Eos % (Auto) Baso % (Auto) Gran # Lymph # [place] # Eos # Baso # Sodium Potassium Chloride Carbon Dioxide Anion Gap BUN Creatinine Est GFR ( Amer) Est GFR (Non-Af Amer) Random Glucose Calcium Total Bilirubin AST ALT Alkaline Phosphatase Lactate Dehydrogenase Total Creatine Kinase Troponin I Total Protein Albumin Globulin Albumin/Globulin Ratio Procalcitonin Urine Color Yellow Urine Appearance Clear Urine pH 7.0 Ur Specific [place] 1.010 Urine Protein Negative Urine Glucose (UA) Negative Urine Ketones Negative Urine Blood Negative Urine Nitrate Negative Urine Bilirubin Negative Urine Urobilinogen 0.2 Ur Leukocyte Esterase Negative Urine Opiates Screen Negative Urine Methadone Screen Negative Ur Barbiturates Screen Negative Ur Phencyclidine Scrn Negative Ur Amphetamines Screen Negative U Benzodiazepines Scrn Negative U Oth Cocaine Metabols Negative U Cannabinoids Screen Negative Alcohol, Quantitative Influenza Typ A,B (EIA) Negative for flu a/b 04/23/17 04/23/17 04/23/17 21:15 21:15 21:15 WBC RBC Hgb Hct MCV MCH MCHC RDW Plt Count MPV Gran % Lymph % (Auto) [place] % (Auto) Eos % (Auto) Baso % (Auto) Gran # Lymph # [place] # Eos # Baso # Sodium Potassium Chloride Carbon Dioxide Anion Gap BUN Creatinine Est GFR ( Amer) Est GFR (Non-Af Amer) Random Glucose Calcium Total Bilirubin AST ALT Alkaline Phosphatase Lactate Dehydrogenase 405 Total Creatine Kinase 140 Troponin I < 0.01 Total Protein Albumin Globulin Albumin/Globulin Ratio Procalcitonin < 0.05 L Urine Color Urine Appearance Urine pH Ur Specific [place] Urine Protein Urine Glucose (UA) Urine Ketones Urine Blood Urine Nitrate Urine Bilirubin Urine Urobilinogen Ur Leukocyte Esterase Urine Opiates Screen Urine Methadone Screen Ur Barbiturates Screen Ur Phencyclidine Scrn Ur Amphetamines Screen U Benzodiazepines Scrn U Oth Cocaine Metabols U Cannabinoids Screen Alcohol, Quantitative < 10 Influenza Typ A,B (EIA) 04/24/17 04/24/17 04/24/17 09:00 09:00 10:00 WBC 4.5 RBC 3.67 Hgb 12.0 L Hct 36.6 L MCV 99.7 MCH 32.7 MCHC 32.8 RDW 13.9 Plt Count 221 MPV 9.4 Gran % 67.7 Lymph % (Auto) 23.5 [place] % (Auto) 8.8 H Eos % (Auto) 0.0 L Baso % (Auto) 0.0 Gran # 3.06 Lymph # 1.1 L [place] # 0.4 Eos # 0.0 Baso # 0.00 Sodium 140 Potassium 5.1 H Chloride 102 Carbon Dioxide 28 Anion Gap 15 BUN 16 Creatinine 0.9 Est GFR ( Amer) > 60 Est GFR (Non-Af Amer) > 60 Random Glucose 111 H Calcium 9.5 Total Bilirubin 0.4 AST 34 ALT 25 Alkaline Phosphatase 68 Lactate Dehydrogenase Total Creatine Kinase Troponin I < 0.01 Total Protein 7.1 Albumin 4.2 Globulin 2.9 Albumin/Globulin Ratio 1.4 Procalcitonin Urine Color Urine Appearance Urine pH Ur Specific [place] Urine Protein Urine Glucose (UA) Urine Ketones Urine Blood Urine Nitrate Urine Bilirubin Urine Urobilinogen Ur Leukocyte Esterase Urine Opiates Screen Urine Methadone Screen Ur Barbiturates Screen Ur Phencyclidine Scrn Ur Amphetamines Screen U Benzodiazepines Scrn U Oth Cocaine Metabols U Cannabinoids Screen Alcohol, Quantitative Influenza Typ A,B (EIA) Attending/Attestation - Attestation I have personally seen and examined this patient.: Yes I have fully participated in the care of the patient.: Yes I have reviewed all pertinent clinical information: Yes Notes (Text): 04/24/17 16:06 attending note; Patient seen and examined with resident in ER. Patient is a 62 year old Male with PMH of CAD with MIx4 s/p stents x4 and CABG (triple bypass) in 2005, COPD, HTN, who presents complaining of CP and SOB. Patient was walking home from work and started having chest pain. The patient has multiple admissions for the same. Patient had wheezing and cough. Treated with prednisone/on DuoNeb treatment in the ER. Chest pain is resolving. Cardiology evaluation requested. EKG showed no significant changes from previous one. Cardiac enzymes 1 negative. last stress test was in 11/04 which was normal. COPD; continue DuoNeb treatment. Started on IV Solu-Medrol. Active smoking; complete smoking cessation is strongly advised. Patient is very noncompliant with follow-up. Started on NicoDerm patch. Alcohol abuse; complete alcohol cessation is strongly advised. urine drug screen ordered. the patient follows up with PMD Dr. Damon. For follows up with cardiology at [facility].
[2017-04-23 19:16] LABS: URINE BILIRUBIN NEGATIVE (NEGATIVE); URINE BLOOD NEGATIVE (NEGATIVE); URINE GLUCOSE (UA) NEGATIVE (NEGATIVE); URINE KETONE NEGATIVE (NEGATIVE); URINE LEUKOCYTE ESTERASE NEGATIVE Leu/uL (NEGATIVE); URINE PROTEIN NEGATIVE mg/dL (<30 mg/dL); URINE UROBILINOGEN 0.2 E.U./dL (<1 E.U./dL)
[2017-04-23 19:17] LABS: URINE APPEARANCE CLEAR (CLEAR); URINE COLOR YELLOW (YELLOW)
[2017-04-23] MEDS: Arformoterol 15 mcg/2 ml Inh Sol IH SCH (20:35)
[2017-04-23] MEDS: Albuterol-Ipratrop 3 mg / 0.5 (3 ml) UD IH SCH (20:35)
[2017-04-23] MEDS: guaiFENesin 100 mg/5 ml Syrup UD PO PRN (21:45)
[2017-04-23 21:46] LABS: TROPONIN I < 0.01 ng/mL
[2017-04-23] MEDS: Budesonide 0.5 mg/2 ml Inhal Susp UD IH SCH (22:01)
[2017-04-23] MEDS ORDERED: Pneumococcal 23-Valent Vaccine IM ONE (22:24)
[2017-04-24] MEDS ORDERED: Pantoprazole 40 mg EC Tab PO SCH (06:00)
[2017-04-24 09:25] LABS: GRAN # 3.06 (1.4-6.5); GRAN % 67.7 % (50.0-68.0); HEMATOCRIT 36.6 % (42.0-52.0); LYMPH # 1.1 (1.2-3.4); LYMPH % 23.5 % (22.0-35.0); MEAN CELL VOLUME 99.7 fl (80.0-105.0); MEAN CORPUSCULAR HEMOGLOBIN 32.7 pg (25.0-35.0); MEAN CORPUSCULAR HGB CONC 32.8 g/dl (31.0-37.0); MEAN PLATELET VOLUME 9.4 fl (7.0-11.0); MONO # 0.4 (0.1-0.6); MONO % 8.8 % (1.0-6.0); RED CELL DISTRIBUTION WIDTH 13.9 % (11.5-14.5); WHITE BLOOD COUNT 4.5 10^3/ul (4.5-11.0)
[2017-04-24] MEDS: guaiFENesin 100 mg/5 ml Syrup UD PO PRN (09:34)
[2017-04-24 09:35] LABS: ALB/GLOB RATIO 1.4 (1.1-1.8); ALKALINE PHOSPHATASE 68 U/L (38-126); ALT/SGPT 25 U/L (7-56); AST/SGOT 34 U/L (17-59); BILIRUBIN,TOTAL 0.4 mg/dL (0.2-1.3); BLOOD UREA NITROGEN 16 mg/dL (7-21); CALCIUM 9.5 mg/dL (8.4-10.5); CARBON DIOXIDE 28 mmol/L (21-33); CHLORIDE 102 mmol/L (98-107); GFR AFRICAN-AMERICAN > 60; GLUCOSE,RANDOM 111 mg/dL (70-110); POTASSIUM 5.1 mmol/L (3.6-5.0); SODIUM 140 mmol/L (132-148); TOTAL PROTEIN 7.1 g/dL (5.8-8.3)
[2017-04-24] MEDS: Albuterol-Ipratrop 3 mg / 0.5 (3 ml) UD IH SCH ×2 (09:50→13:56)
[2017-04-24] MEDS: Arformoterol 15 mcg/2 ml Inh Sol IH SCH (09:51)
[2017-04-24] MEDS: Budesonide 0.5 mg/2 ml Inhal Susp UD IH SCH (09:51)
[2017-04-24] MEDS ORDERED: Fluticasone-Salmeterol 500-50mcg Diskus IH SCH (10:00)
[2017-04-24] MEDS ORDERED: MethylPREDNISolone 40 mg Vial IVP SCH (10:00)
[2017-04-24 12:31] VITALS: BP 133/74; RESP 18; TEMP 97.8
--- NOTE | 2017-04-24 14:37 | CON ---
DATE: 04/24/2017 REQUESTING PHYSICIAN: Dr. Ramirez. REASON FOR CONSULTATION: Chest pain. HISTORY OF PRESENT ILLNESS: This is a 62-year-old man known to us from prior admissions who has known coronary artery disease and who has got prior bypass surgery who also has a history of alcohol and tobacco abuse who presented complaining of chest discomfort. He presented to the emergency room and was admitted for evaluation. His pain waxed and waned throughout the course other day, yesterday. He has known coronary artery disease, underwent prior bypass surgery in 2005. His last catheterization was 4 years ago which time his bypass grafts were patent. He also has a history of hypertension, COPD. PAST MEDICAL HISTORY: Significant for the problems mentioned above. He has undergone a prior right carotid endarterectomy, prior cholecystectomy. He also has a history of peripheral neuropathy and depression. SOCIAL HISTORY: He continues to smoke less than half pack per day. He drinks intermittently. He has a history of heavy alcohol use in the past. ALLERGIES: HE HAS HAD A PRIOR REACTION TO SULFAS. FAMILY HISTORY: Both parents are from age-related illness. CURRENT MEDICATIONS: Include Brovana, DuoNeb inhaler, Ecotrin, folic acid, Imdur 30 mg daily, Lipitor 40 mg daily, Nicoderm patch, Plavix 75 mg daily, Protonix 40 mg daily, Pulmicort inhaler, Singulair 10 mg daily and Solu-Medrol. OBJECTIVE: GENERAL: He is a disheveled-appearing middle-aged man. VITAL SIGNS: His blood pressure is 132/74, the pulse is 66 and sinus, respirations are 14. He is afebrile. HEENT: Normocephalic and atraumatic. NECK: Supple. No JVD noted. CHEST: Bilateral scattered rhonchi heard. HEART: PMI displaced laterally, a systolic murmur is present in left sternal border. ABDOMEN: Soft, nontender with normoactive bowel sounds. EXTREMITIES: No clubbing, cyanosis or edema. SKIN: Warm and dry. PSYCHIATRIC: Normal mood and affect. NEUROLOGIC: No gross motor or sensory deficits are appreciable. He is alert and oriented x3. DIAGNOSTIC DATA: White count 4.5, hemoglobin and hematocrit 12.0 and 36.6 with platelet count of 221,000. PT and PTT are normal. Potassium 5.1, BUN and creatinine are 16 and 0.9. Two sets of cardiac enzymes are normal. Toxicology screen was negative. Electrocardiogram revealed sinus rhythm with nonspecific ST-T abnormalities. Chest x-ray revealed post sternotomy changes with prior rib fractures noted. Lung dong appear clear. IMPRESSION: 1. Chest pain and dyspnea, possibly ischemic in nature. He does have coronary artery disease with persistent risk factors with continued tobacco abuse. 2. Rest of the problems as noted above. RECOMMENDATIONS: Current medications should continue. 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 A followup stress test later this week would be appropriate. If this shows any evidence of significant ischemia, repeat catheterization will be in order. The need for smoking abstinence was strongly encouraged as well. Thank you for this consultation. We will be happy to follow along as needed. Milton Disla MD
--- NOTE | 2017-04-24 14:53 | CP.PCM.DIS ---
<Vin Heath - Last Filed: 04/24/17 14:46> Provider - Provider Date of Admission: 04/23/17 17:56 Attending physician: Capo Ramirez MD Primary care physician: Lauren Damon DO Time Spent in preparation of Discharge (in minutes): 30 Diagnosis - Discharge Diagnosis (1) Chest pain Status: Acute Priority: Medium (2) Coronary artery disease Status: Acute Priority: Medium (3) Acute exacerbation of COPD with asthma Status: Acute Priority: Medium Hospital Course - Lab Results Lab Results: Most Recent Lab Values WBC 4.5 10^3/ul (4.5-11.0) 04/24/17 09:00 RBC 3.67 10^6/uL (3.5-6.1) 04/24/17 09:00 Hgb 12.0 g/dL (14.0-18.0) L 04/24/17 09:00 Hct 36.6 % (42.0-52.0) L 04/24/17 09:00 MCV 99.7 fl (80.0-105.0) 04/24/17 09:00 MCH 32.7 pg (25.0-35.0) 04/24/17 09:00 MCHC 32.8 g/dl (31.0-37.0) 04/24/17 09:00 RDW 13.9 % (11.5-14.5) 04/24/17 09:00 Plt Count 221 10^3/uL (120.0-450.0) 04/24/17 09:00 MPV 9.4 fl (7.0-11.0) 04/24/17 09:00 Gran % 67.7 % (50.0-68.0) 04/24/17 09:00 Lymph % (Auto) 23.5 % (22.0-35.0) 04/24/17 09:00 [place] % (Auto) 8.8 % (1.0-6.0) H 04/24/17 09:00 Eos % (Auto) 0.0 % (1.5-5.0) L 04/24/17 09:00 Baso % (Auto) 0.0 % (0.0-3.0) 04/24/17 09:00 Gran # 3.06 (1.4-6.5) 04/24/17 09:00 Lymph # 1.1 (1.2-3.4) L 04/24/17 09:00 [place] # 0.4 (0.1-0.6) 04/24/17 09:00 Eos # 0.0 (0.0-0.7) 04/24/17 09:00 Baso # 0.00 K/mm3 (0.0-2.0) 04/24/17 09:00 PT 10.1 Seconds (9.9-11.8) 04/23/17 14:40 INR 0.94 (0.93-1.08) 04/23/17 14:40 APTT 26.1 Seconds (23.7-30.8) 04/23/17 14:40 Sodium 140 mmol/L (132-148) 04/24/17 09:00 Potassium 5.1 mmol/L (3.6-5.0) H 04/24/17 09:00 Chloride 102 mmol/L (98-107) 04/24/17 09:00 Carbon Dioxide 28 mmol/L (21-33) 04/24/17 09:00 Anion Gap 15 (10-20) 04/24/17 09:00 BUN 16 mg/dL (7-21) 04/24/17 09:00 Creatinine 0.9 mg/dL (0.8-1.5) 04/24/17 09:00 Est GFR ( Amer) > 60 04/24/17 09:00 Est GFR (Non-Af Amer) > 60 04/24/17 09:00 Random Glucose 111 mg/dL (70-110) H 04/24/17 09:00 Calcium 9.5 mg/dL (8.4-10.5) 04/24/17 09:00 Total Bilirubin 0.4 mg/dL (0.2-1.3) 04/24/17 09:00 AST 34 U/L (17-59) 04/24/17 09:00 ALT 25 U/L (7-56) 04/24/17 09:00 Alkaline Phosphatase 68 U/L (38-126) 04/24/17 09:00 Lactate Dehydrogenase 405 U/L (333-699) 04/23/17 21:15 Total Creatine Kinase 140 U/L (35-230) 04/23/17 21:15 Troponin I < 0.01 ng/mL 04/24/17 10:00 Total Protein 7.1 g/dL (5.8-8.3) 04/24/17 09:00 Albumin 4.2 g/dL (3.0-4.8) 04/24/17 09:00 Globulin 2.9 gm/dL 04/24/17 09:00 Albumin/Globulin Ratio 1.4 (1.1-1.8) 04/24/17 09:00 Procalcitonin < 0.05 NG/ML (0.19-0.49) L 04/23/17 21:15 Urine Color Yellow (YELLOW) 04/23/17 18:00 Urine Appearance Clear (CLEAR) 04/23/17 18:00 Urine pH 7.0 (4.7-8.0) 04/23/17 18:00 Ur Specific [place] 1.010 (1.005-1.035) 04/23/17 18:00 Urine Protein Negative mg/dL (<30 mg/dL) 04/23/17 18:00 Urine Glucose (UA) Negative mg/dL (NEGATIVE) 04/23/17 18:00 Urine Ketones Negative mg/dL (NEGATIVE) 04/23/17 18:00 Urine Blood Negative (NEGATIVE) 04/23/17 18:00 Urine Nitrate Negative (NEGATIVE) 04/23/17 18:00 Urine Bilirubin Negative (NEGATIVE) 04/23/17 18:00 Urine Urobilinogen 0.2 E.U./dL (<1 E.U./dL) 04/23/17 18:00 Ur Leukocyte Esterase Negative Jenifer/uL (NEGATIVE) 04/23/17 18:00 Urine Opiates Screen Negative (NEGATIVE) 04/23/17 19:00 Urine Methadone Screen Negative (NEGATIVE) 04/23/17 19:00 Ur Barbiturates Screen Negative (NEGATIVE) 04/23/17 19:00 Ur Phencyclidine Scrn Negative (NEGATIVE) 04/23/17 19:00 Ur Amphetamines Screen Negative (NEGATIVE) 04/23/17 19:00 U Benzodiazepines Scrn Negative (NEGATIVE) 04/23/17 19:00 U Oth Cocaine Metabols Negative (NEGATIVE) 04/23/17 19:00 U Cannabinoids Screen Negative (NEGATIVE) 04/23/17 19:00 Alcohol, Quantitative < 10 mg/dL (0-10) 04/23/17 21:15 Influenza Typ A,B (EIA) Negative for flu a/b (NEGATIVE) 04/23/17 20:00 - Hospital Course Hospital Course: Patient is a 62 year old male with a past medical history of CAD with SC x4 s/p stents x4 and CABG (triple bypass) in 2006, COPD, HTN, who was admitted for evaluation of chest pain and shortness of breath. With the use of physical examinations, lab work, and imaging the patient was diagnosed with and treated for COPD exaceration and acute coronary syndrome was ruled out. During their hospital stay the patient was seen by cardiology, Dr. Viramontes, whose recommendations were appreciated. During their hospital stay the patient underwent a chest xray which was reviewed, appreciated, and utilized in the management of the patients clinical course. Patient was treated with antihypertensive medications, nebulizer treatments, steroids, amongst other empiric/therapeutic medications. At this time the patient is medically stable for discharge. Patient understands and appreciates discharge plan. Patient instructed to follow up with primary care physicians and referrals within three to five days from discharge. Furthermore, the patient is instructed to take medications as prescribed and to return to emergency room for evaluation of intractable headache, fever, chills, dizziness, chest pain, shortness of breath , abdominal pain, nausea, vomiting, diarrhea, constipation, and urinary symptoms. This is a brief summary of the patients hospital course. Please see patient chart for full details. Discharge Exam - Head Exam Head Exam: ATRAUMATIC, NORMOCEPHALIC - Additional Findings Additional findings: - Constitutional Appears: No Acute Distress - Head Exam Head Exam: ATRAUMATIC, NORMOCEPHALIC - Eye Exam Eye Exam: EOMI, PERRL - ENT Exam ENT Exam: Mucous Membranes Moist - Respiratory Exam Respiratory Exam: Clear to Auscultation Bilateral. absent: Rales, Rhonchi, Wheezes - Cardiovascular Exam Cardiovascular Exam: REGULAR RHYTHM, RRR, +S1, +S2 - GI/Abdominal Exam GI & Abdominal Exam: Normal Bowel Sounds, Soft. absent: Tenderness - Extremities Exam Extremities exam: Negative for: calf tenderness, pedal edema - Neurological Exam Neurological exam: Alert, CN II-XII Intact, Oriented x3 - Psychiatric Exam Psychiatric exam: Normal Affect, Normal Mood - Skin Skin Exam: Dry, Intact, Normal Color, Warm Discharge Plan - Discharge Medications Prescriptions: Albuterol HFA [Ventolin HFA 90 mcg/actuation (8 g)] 2 puff IH [id number] #1 puff Methylprednisolone [Medrol Dose Pack (21 tabs)] 4 mg PO DAILY #21 mg - Follow Up Plan Condition: IMPROVED Disposition: HOME/ ROUTINE Patient education suggested?: Yes Instructions: Coronary Artery Disease (DC), Chest Pain (DC), Heart Healthy Diet (DC), COPD (Chronic Obstructive Pulmonary Disease) (DC) Additional Instructions: Patient Instructions: Take medications as prescribed. Follow up with PMD and referrals within three to five days from discharge. Return to emergency room for evaluation of intractable headache, fever, chills, dizziness, chest pain, shortness of breath, abdominal pain, nausea, vomiting, diarrhea, constipation, and urinary symptoms. Referrals: Lauren Damon DO [Primary Care Provider] - Milton Disla MD [Staff Provider] - <Capo Ramirez - Last Filed: 04/24/17 16:23> Provider - Provider Date of Admission: 04/23/17 17:56 Attending physician: Capo Ramirez MD Primary care physician: Lauren Damon Hospital Course - Lab Results Lab Results: Most Recent Lab Values WBC 4.5 10^3/ul (4.5-11.0) 04/24/17 09:00 RBC 3.67 10^6/uL (3.5-6.1) 04/24/17 09:00 Hgb 12.0 g/dL (14.0-18.0) L 04/24/17 09:00 Hct 36.6 % (42.0-52.0) L 04/24/17 09:00 MCV 99.7 fl (80.0-105.0) 04/24/17 09:00 MCH 32.7 pg (25.0-35.0) 04/24/17 09:00 MCHC 32.8 g/dl (31.0-37.0) 04/24/17 09:00 RDW 13.9 % (11.5-14.5) 04/24/17 09:00 Plt Count 221 10^3/uL (120.0-450.0) 04/24/17 09:00 MPV 9.4 fl (7.0-11.0) 04/24/17 09:00 Gran % 67.7 % (50.0-68.0) 04/24/17 09:00 Lymph % (Auto) 23.5 % (22.0-35.0) 04/24/17 09:00 [place] % (Auto) 8.8 % (1.0-6.0) H 04/24/17 09:00 Eos % (Auto) 0.0 % (1.5-5.0) L 04/24/17 09:00 Baso % (Auto) 0.0 % (0.0-3.0) 04/24/17 09:00 Gran # 3.06 (1.4-6.5) 04/24/17 09:00 Lymph # 1.1 (1.2-3.4) L 04/24/17 09:00 [place] # 0.4 (0.1-0.6) 04/24/17 09:00 Eos # 0.0 (0.0-0.7) 04/24/17 09:00 Baso # 0.00 K/mm3 (0.0-2.0) 04/24/17 09:00 PT 10.1 Seconds (9.9-11.8) 04/23/17 14:40 INR 0.94 (0.93-1.08) 04/23/17 14:40 APTT 26.1 Seconds (23.7-30.8) 04/23/17 14:40 Sodium 140 mmol/L (132-148) 04/24/17 09:00 Potassium 5.1 mmol/L (3.6-5.0) H 04/24/17 09:00 Chloride 102 mmol/L (98-107) 04/24/17 09:00 Carbon Dioxide 28 mmol/L (21-33) 04/24/17 09:00 Anion Gap 15 (10-20) 04/24/17 09:00 BUN 16 mg/dL (7-21) 04/24/17 09:00 Creatinine 0.9 mg/dL (0.8-1.5) 04/24/17 09:00 Est GFR ( Amer) > 60 04/24/17 09:00 Est GFR (Non-Af Amer) > 60 04/24/17 09:00 Random Glucose 111 mg/dL (70-110) H 04/24/17 09:00 Calcium 9.5 mg/dL (8.4-10.5) 04/24/17 09:00 Total Bilirubin 0.4 mg/dL (0.2-1.3) 04/24/17 09:00 AST 34 U/L (17-59) 04/24/17 09:00 ALT 25 U/L (7-56) 04/24/17 09:00 Alkaline Phosphatase 68 U/L (38-126) 04/24/17 09:00 Lactate Dehydrogenase 405 U/L (333-699) 04/23/17 21:15 Total Creatine Kinase 140 U/L (35-230) 04/23/17 21:15 Troponin I < 0.01 ng/mL 04/24/17 10:00 Total Protein 7.1 g/dL (5.8-8.3) 04/24/17 09:00 Albumin 4.2 g/dL (3.0-4.8) 04/24/17 09:00 Globulin 2.9 gm/dL 04/24/17 09:00 Albumin/Globulin Ratio 1.4 (1.1-1.8) 04/24/17 09:00 Procalcitonin < 0.05 NG/ML (0.19-0.49) L 04/23/17 21:15 Urine Color Yellow (YELLOW) 04/23/17 18:00 Urine Appearance Clear (CLEAR) 04/23/17 18:00 Urine pH 7.0 (4.7-8.0) 04/23/17 18:00 Ur Specific [place] 1.010 (1.005-1.035) 04/23/17 18:00 Urine Protein Negative mg/dL (<30 mg/dL) 04/23/17 18:00 Urine Glucose (UA) Negative mg/dL (NEGATIVE) 04/23/17 18:00 Urine Ketones Negative mg/dL (NEGATIVE) 04/23/17 18:00 Urine Blood Negative (NEGATIVE) 04/23/17 18:00 Urine Nitrate Negative (NEGATIVE) 04/23/17 18:00 Urine Bilirubin Negative (NEGATIVE) 04/23/17 18:00 Urine Urobilinogen 0.2 E.U./dL (<1 E.U./dL) 04/23/17 18:00 Ur Leukocyte Esterase Negative Jenifer/uL (NEGATIVE) 04/23/17 18:00 Urine Opiates Screen Negative (NEGATIVE) 04/23/17 19:00 Urine Methadone Screen Negative (NEGATIVE) 04/23/17 19:00 Ur Barbiturates Screen Negative (NEGATIVE) 04/23/17 19:00 Ur Phencyclidine Scrn Negative (NEGATIVE) 04/23/17 19:00 Ur Amphetamines Screen Negative (NEGATIVE) 04/23/17 19:00 U Benzodiazepines Scrn Negative (NEGATIVE) 04/23/17 19:00 U Oth Cocaine Metabols Negative (NEGATIVE) 04/23/17 19:00 U Cannabinoids Screen Negative (NEGATIVE) 04/23/17 19:00 Alcohol, Quantitative < 10 mg/dL (0-10) 04/23/17 21:15 Influenza Typ A,B (EIA) Negative for flu a/b (NEGATIVE) 04/23/17 20:00 Attending/Attestation - Attestation I have personally seen and examined this patient.: Yes I have fully participated in the care of the patient.: Yes I have reviewed all pertinent clinical information, including history, physical exam and plan: Yes Notes (Text): 04/24/17 16:15 attending note; Patient seen and examined with resident. Patient is a 62 year old Male with PMH of CAD with MIx4 s/p stents x4 and CABG (triple bypass) in 2005, COPD, HTN, who presents complaining of CP and SOB. Patient had wheezing and cough. Treated with prednisone/on DuoNeb treatment in the ER. Chest pain is resolving. Cardiology evaluation appreciated. Cardiac enzymes 3 negative. Case discussed with Dr. Viramontse in detail. Old stress test reviewed. last stress test was in 11/04 which was normal. Initially stress test recommended. After reviewed the stress test result patient is cleared for discharge. COPD; continue DuoNeb treatment. Started on IV Solu-Medrol. Will send the patient home albuterol inhaler/Medrol Dosepak. Active smoking; complete smoking cessation is strongly advised. Patient is very noncompliant with follow-up. on NicoDerm patch. Alcohol abuse; complete alcohol cessation is strongly advised. urine drug screen is negative. Patient with the history of opiate dependency in the past. Case discussed with PMD Dr. Damon in detail. Patient follows up with cardiology Dr. Garcia at [place]. diagnosis; COPD Chest pain History of coronary artery disease/CABG Active smoking Alcohol abuse Noncompliance with follow-up
[2017-04-24 15:19] VITALS: PULSE 72
[2017-04-24 16:09] VITALS: O2SAT 94
--- NOTE | 2017-04-25 10:29 | CARD ---
APPROVED REPORT EKG Measurement Heart [id number] <Conclusion> Normal sinus rhythm Normal ECG
== END 2017-04-24 16:36 | disposition home or self-care (01) ==
LOC: ED 14:25 → ERH 17:56 → 2RNO 20:56
PROVIDERS: ADMIT Internal Medicine; ATTEND Internal Medicine
DX: J44.1 Chronic obstructive pulmonary disease with (acute) exacerbation (principal); I10 Essential (primary) hypertension; I25.10 Atherosclerotic heart disease of native coronary artery without angina pectoris; F10.10 Alcohol abuse, uncomplicated; F17.210 Nicotine dependence, cigarettes, uncomplicated; K21.9 Gastro-esophageal reflux disease without esophagitis; G62.9 Polyneuropathy, unspecified; I25.2 Old myocardial infarction; Z91.19 Patient's noncompliance with other medical treatment and regimen; Z95.1 Presence of aortocoronary bypass graft; Z95.5 Presence of coronary angioplasty implant and graft; Z79.02 Long term (current) use of antithrombotics/antiplatelets; Z79.82 Long term (current) use of aspirin
CPT/HCPCS: 36415; 71010; 80053; 80320; 80324; 80345; 80346; 80349; 80353; 80358; 80361; 81003; 82550; 83615; 83992; 84145; 84484; 85025; 85610; 85730; 87804; 94640; 94760; 97116; 97161; 99285; G0378; G8978; G8979; G8980; J2920

== ENCOUNTER 2017-04-25 13:45 | Inpatient (IN) | payer MEDICAID ==
--- NOTE | 2017-04-25 14:35 | ED PDOC ---
Arrival/HPI - General Chief Complaint: Respiratory Distress Time Seen by Provider: 04/25/17 13:47 Historian: Patient - History of Present Illness Narrative History of Present Illness (Text): 04/25/17 14:31 62 year old male, whose past medical history includes several cardiac stents and COPD, presents to the emergency department complaining of shortness of breath today. Patient was discharged yesterday from the hospital. While at work patient began to feel he couldn't breath properly. Patient notes also experiencing mild chest pain, but denies of any fever, or any other complaints. PMD: Dr. Damon Past Medical History - Provider Review Nursing Documentation Reviewed: Yes - Past History Past History: No Previous - Infectious Disease Hx of Infectious Diseases: None - Tetanus Immunization Tetanus Immunization: Unknown - Reproductive Currently : No - Cardiac Hx Cardiac Disorders: Yes ([place]) Hx Hypertension: Yes Other/Comment: CABG. BYPASS. 3 STENTS - Pulmonary Hx Respiratory Disorders: Yes Hx Bronchitis: Yes Hx Chronic Obstructive Pulmonary Disease (COPD): Yes Hx Tuberculosis: No - Neurological Hx Neurological Disorder: No (denies) - HEENT Hx HEENT Disorder: Yes Hx Cataracts: Yes (right eye) Hx Glaucoma: No - Renal Hx Renal Disorder: No - Endocrine/Metabolic Hx Endocrine Disorders: No - Hematological/Oncological Hx Blood Disorders: Yes (blood transfusion) Hx Anemia: Yes Hx Cancer: No - Integumentary Hx Dermatological Disorder: No - Musculoskeletal/Rheumatological Hx Musculoskeletal Disorders: Yes - Gastrointestinal Hx Gastrointestinal Disorders: Yes Hx Gall Bladder Disease: Yes (Gall stones removed) Hx Gastroesophageal Reflux: Yes - Genitourinary/Gynecological Hx Genitourinary Disorders: No (denies) - Psychiatric Hx Psychophysiologic Disorder: Yes Hx Anxiety: Yes Hx Substance Use: No - Surgical History Hx Cardiac Catheterization: Yes Hx Coronary Artery Bypass Graft: Yes Hx Coronary Stent: Yes (x3) Hx Open Heart Surgery: Yes - Anesthesia Hx Anesthesia: Yes Hx Anesthesia Reactions: No Hx Malignant Hyperthermia: No - Suicidal Assessment Feels Threatened In Home Enviroment: No Family/Social History - Physician Review Nursing Documentation Reviewed: Yes Family/Social History: No Known Family HX Smoking Status: Heavy Smoker > 10 Cigarettes Daily Hx Alcohol Use: Yes Hx Substance Use: No Substance used: HEROIN, MARIJUANA Hx Substance Use Treatment: No Allergies/Home Meds Allergies/Adverse Reactions: Allergies shellfish derived Allergy (Verified 04/18/17 15:13) ANAPHYLAXIS Sulfa (Sulfonamide Antibiotics) Allergy (Verified 04/18/17 15:13) RASH Home Medications: Home Meds Medication Instructions Recorded Confirmed Albuterol HFA [Ventolin HFA 90 2 puff IH PRN PRN 02/21/17 04/25/17 mcg/actuation (8 g)] Aspirin [Adult Low Dose Aspirin EC] 81 mg PO DAILY 02/21/17 04/25/17 Carvedilol [Coreg] 3.125 mg PO BID 02/21/17 04/25/17 Fluticasone/Salmeterol 500/50 1 puff IH DAILY 02/21/17 04/25/17 [Advair Diskus 500/50] Isosorbide Mononitrate [Isosorbide 30 mg PO DAILY 02/21/17 04/25/17 Mononitrate ER] Montelukast Sodium [Singulair] 10 mg PO DAILY 02/21/17 04/25/17 Nitroglycerin [Nitrostat] 0.4 mg SL PRN PRN 02/21/17 04/25/17 Omeprazole 20 mg PO DAILY 02/21/17 04/25/17 Thiamine Mononitrate [Vitamin B-1] 100 mg PO DAILY 02/21/17 04/25/17 Ammonium Lactate [Deedee-Hydrolac] 1 appful TD DAILY 04/10/17 04/25/17 Betamethasone Dipropion Augmen 1 appful TD DAILY 04/10/17 04/25/17 [Diprolene AF 0.05%] Clopidogrel [Plavix] 75 mg PO DAILY 04/10/17 04/25/17 Folic Acid 1 mg PO DAILY 04/10/17 04/25/17 Diclofenac Sodium [Voltaren] 1 appful TOP PRN PRN 04/18/17 04/25/17 Review of Systems - Physician Review All systems were reviewed & negative as marked: Yes - Review of Systems Constitutional: absent: Fevers Respiratory: SOB Cardiovascular: Chest Pain (mild chest pain) Physical Exam Vital Signs Reviewed: Yes Vital Signs Temp Pulse Resp BP Pulse Ox 04/25/17 16:53 75 18 100/53 L 100 04/25/17 14:13 98.5 F 82 20 113/55 L 98 04/25/17 13:53 98.6 F 90 20 109/60 95 Blood Pressure: Normal Pulse: Regular Respiratory Rate: Normal Appearance: Positive for: Well-Appearing Pain Distress: None Mental Status: Positive for: Alert and Oriented X 3 - Systems Exam Head: Present: Atraumatic, Normocephalic Pupils: Present: PERRL Extroacular Muscles: Present: EOMI Conjunctiva: Present: Normal Mouth: Present: Moist Mucous Membranes Neck: Present: Normal Range of Motion Respiratory/Chest: Present: Wheezes (mild wheezing b/l) Cardiovascular: Present: Regular Rate and Rhythm, Normal S1, S2. No: Murmurs Abdomen: Present: Normal Bowel Sounds. No: Tenderness, Distention, Peritoneal Signs Back: Present: Normal Inspection Upper Extremity: Present: Normal Inspection. No: Cyanosis, Edema Lower Extremity: Present: Normal Inspection. No: Edema Neurological: Present: GCS=15, CN II-XII Intact, Speech Normal Skin: Present: Warm, Dry, Normal Color. No: Rashes Psychiatric: Present: Alert, Oriented x 3, Normal Insight, Normal Concentration Medical Decision Making ED Course and Treatment: 04/25/17 14:33 Impression: 62 year old male with shortness of breath and mild chest pian. Physical exam shows mild wheezing b/l. Plan: -- EKG -- Chest X-ray -- Labs -- Duoneb -- Solu-Medrol -- Urinalysis -- Reassess and disposition Prior Visits: Notes and results from previous visits were reviewed. Patient was last seen in the emergency department on 04/23/2017 for midsternal chest pain and shortness of breath. Patient was admitted. Progress Notes: EKG: Ordered, reviewed, and independently interpreted the EKG. Rate : 83 BPM Rhythm : NSR Interpretation : No ST-segment elevations or depressions, no T-wave inversions, normal intervals. Comparison : No previous EKG for comparison. 04/24/2017 15:16 Chest X-ray FINDINGS: LUNGS: The lungs are well inflated and clear. PLEURA: No significant pleural effusion identified, no pneumothorax apparent. CARDIOVASCULAR: The heart is normal in size. Status post CABG. OSSEOUS STRUCTURES: There are subacute healing fractures in the left posterior 8th 9th and 10th ribs. VISUALIZED UPPER ABDOMEN: Normal. OTHER FINDINGS: None. IMPRESSION: No acute findings. Dictator: Dr. Della Rashid MD - Lab Interpretations Lab Results: 04/25/17 15:00 10/05/17 15:00 Lab Results 04/25/17 15:00: Sodium 139, Potassium 4.9, Chloride 104, Carbon Dioxide 25, Anion Gap 15, BUN 24 H, Creatinine 1.0, Est GFR ( Amer) > 60, Est GFR ( Non-Af Amer) > 60, Random Glucose 94, Calcium 9.4, Magnesium 2.0, Total Bilirubin 0.3, AST 34, ALT 25, Alkaline Phosphatase 56, Lactate Dehydrogenase 433, Total Creatine Kinase 103, Troponin I < 0.01, Total Protein 6.7, Albumin 4.0, Globulin 2.7, Albumin/Globulin Ratio 1.5 04/25/17 15:00: PT 10.2, INR 0.94, APTT 22.8 L 04/25/17 15:00: WBC 8.0 D, RBC 3.49 L, Hgb 11.5 L, Hct 34.9 L, MCV 100.0, MCH 33.0, MCHC 33.0, RDW 14.3, Plt Count 231, MPV 9.3, Gran % 80.3 H, Lymph % (Auto ) 15.1 L, [place] % (Auto) 4.1, Eos % (Auto) 0.4 L, Baso % (Auto) 0.1, Gran # 6.41 , Lymph # 1.2, [place] # 0.3, Eos # 0.0, Baso # 0.01 I have reviewed the lab results: Yes - RAD Interpretation Radiology Orders: 04/25/17 14:18 CHEST PORTABLE [RAD] Stat - Medication Orders Current Medication Orders: Albuterol Sulfate (Albuterol 0.083% Inhal Lidya (2.5 Mg/3 Ml) Ud) 2.5 mg IH [id number] [facility] Arformoterol Tartrate (Brovana) 15 mcg IH [id number] [facility] Aspirin (Ecotrin) 81 mg PO DAILY [facility] Last Admin: 04/25/17 16:55 Dose: Budesonide (Pulmicort Respules) 1 mg IH [id number] [facility] Carvedilol (Coreg) 3.125 mg PO BID [facility] Last Admin: 04/25/17 18:02 Dose: 3.125 mg [facility] Pulse and Blood Pressure Document 04/25/17 18:02 (Rec: 04/25/17 18:02 [id number] Pulse Pulse Rate (60-90) 78 Blood Pressure Blood Pressure (100/60-150/90) 104/62 Clopidogrel Bisulfate (Plavix) 75 mg PO DAILY [facility] Last Admin: 04/25/17 16:55 Dose: Folic Acid (Folic Acid) 1 mg PO DAILY [facility] Last Admin: 04/25/17 16:55 Dose: Isosorbide Mononitrate (Imdur Er) 30 mg PO DAILY [facility] Last Admin: 04/25/17 16:55 Dose: Methylprednisolone (Solu-Medrol) 40 mg IVP Q12 [facility] Montelukast Sodium (Singulair) 10 mg PO DAILY [facility] Last Admin: 04/25/17 16:55 Dose: Nicotine (Nicoderm Cq) 1 patch TD DAILY [facility] Last Admin: 04/25/17 18:02 Dose: 1 patch MAR Transdermal Patch Site Document 04/25/17 18:02 (Rec: 04/25/17 18:02 [id number] Transdermal Patch Site Transdermal Patch Site Right Upper Chest Nitroglycerin (Nitrostat Sl Tab) 0.4 mg SL PRN PRN PRN Reason: pain Last Admin: 04/25/17 18:02 Dose: 0.4 mg Pantoprazole Sodium (Protonix Ec Tab) 40 mg PO 0600 [facility] Discontinued Medications Albuterol/Ipratropium (Duoneb 3 Mg/0.5 Mg (3 Ml) Ud) 3 ml IH Q15M [facility] Stop: 04/25/17 15:01 Last Admin: 04/25/17 15:45 Dose: 3 ml Methylprednisolone (Solu-Medrol) 125 mg IVP STAT STA Stop: 04/25/17 14:19 Last Admin: 04/25/17 15:14 Dose: 125 mg IVP Administration Document 04/25/17 15:14 (Rec: 04/25/17 15:14 [id number]) Charges for Administration # of IVP Administrations 1 Fluticasone/Salmeterol (Advair Diskus 500/50) 1 puff IH DAILY [facility] Last Admin: 04/25/17 16:55 Dose: - Scribe Statement The provider has reviewed the documentation as recorded by the Arina Nichols Provider Scribe Attestation: All medical record entries made by the Scribinga were at my direction and personally dictated by me. I have reviewed the chart and agree that the record accurately reflects my personal performance of the history, physical exam, medical decision making, and the department course for this patient. I have also personally directed, reviewed, and agree with the discharge instructions and disposition. Disposition/Present on Arrival - Present on Arrival Any Indicators Present on Arrival: No History of DVT/PE: No History of Uncontrolled Diabetes: No Urinary Catheter: No History of Decub. Ulcer: No History Surgical Site Infection Following: None - Disposition Have Diagnosis and Disposition been Completed?: Yes Diagnosis: Chest pain Disposition: HOSPITALIZED Disposition Time: 06:00 Condition: STABLE
[2017-04-25] MEDS: Albuterol-Ipratrop 3 mg / 0.5 (3 ml) UD IH SCH ×3 (15:14→15:45)
--- NOTE | 2017-04-25 15:17 | RAD ---
HISTORY: sob COMPARISON: 04/23/2017. FINDINGS: LUNGS: The lungs are well inflated and clear. PLEURA: No significant pleural effusion identified, no pneumothorax apparent. CARDIOVASCULAR: The heart is normal in size. Status post CABG. OSSEOUS STRUCTURES: There are subacute healing fractures in the left posterior 8th 9th and 10th ribs. VISUALIZED UPPER ABDOMEN: Normal. OTHER FINDINGS: None. IMPRESSION: No acute findings.
[2017-04-25 15:26] LABS: BASO # 0.01 K/mm3 (0.0-2.0); BASO % 0.1 % (0.0-3.0); EOS % 0.4 % (1.5-5.0); GRAN # 6.41 (1.4-6.5); GRAN % 80.3 % (50.0-68.0); HEMATOCRIT 34.9 % (42.0-52.0); LYMPH # 1.2 (1.2-3.4); LYMPH % 15.1 % (22.0-35.0); MEAN PLATELET VOLUME 9.3 fl (7.0-11.0); MONO # 0.3 (0.1-0.6); MONO % 4.1 % (1.0-6.0); RED CELL DISTRIBUTION WIDTH 14.3 % (11.5-14.5)
[2017-04-25 15:31] LABS: ALB/GLOB RATIO 1.5 (1.1-1.8); ALKALINE PHOSPHATASE 56 U/L (38-126); ALT/SGPT 25 U/L (7-56); AST/SGOT 34 U/L (17-59); BILIRUBIN,TOTAL 0.3 mg/dL (0.2-1.3); BLOOD UREA NITROGEN 24 mg/dL (7-21); CALCIUM 9.4 mg/dL (8.4-10.5); CARBON DIOXIDE 25 mmol/L (21-33); CHLORIDE 104 mmol/L (98-107); GFR AFRICAN-AMERICAN > 60; GLUCOSE,RANDOM 94 mg/dL (70-110); POTASSIUM 4.9 mmol/L (3.6-5.0); SODIUM 139 mmol/L (132-148); TOTAL PROTEIN 6.7 g/dL (5.8-8.3)
[2017-04-25 15:32] LABS: INR 0.94 (0.93-1.08); PARTIAL THROMBOPLASTIN TIME 22.8 Seconds (23.7-30.8)
[2017-04-25 15:45] LABS: TROPONIN I < 0.01 ng/mL
[2017-04-25] MEDS ORDERED: Albuterol HFA 90 mcg/actuation (8 g) IH PRN (16:39)
[2017-04-25] MEDS ORDERED: Fluticasone-Salmeterol 500-50mcg Diskus IH SCH (16:45)
[2017-04-25] MEDS ORDERED: Arformoterol 15 mcg/2 ml Inh Sol IH SCH (17:08)
--- NOTE | 2017-04-25 19:34 | CP.PCM.HP ---
<Caleb Ji - Last Filed: 04/25/17 19:42> History of Present Illness - History of Present Illness History of Present Illness: CC: Chest pain 62 yo M with PMH of CAD with MIx4 s/p stents x4 and CABG (triple bypass) in 2005 , COPD, HTN, who presents complaining of CP and SOB. Patient was at work when he began to feel the chest pain. The patient was recently discharged from [facility] with the same complaint. Patient denies taking anything to help alleviate the symptoms. Pain was associated with some SOB, denies any diaphoresis, N/V, claudication. Pain was 8/10 in severity. Pt also complains of a non-productive cough. Denies any fevers but does complain of chills. Denies any body pain. 12 point ROS performed and negative other than stated above. PMH: CAD w/ stents x4, COPD, EtOH abuse, HTN, depression, peripheral neuropathy , cholelithiasis PSH: right carotid endartectomy, CABG (triple bypass) 2005, cholecystectomy Soc hx: daily smoker 4-5 cig daily; hx of alcohol abuse, last drink 10/2016; pmh of marijuana and heroin abuse Allergies: sulfa drugs & shellfish Meds: refer to [facility] Family hx: DM Present on Admission - Present on Admission Any Indicators Present on Admission: No Review of Systems - Constitutional Constitutional: As Per HPI - EENT Eyes: As Per HPI Ears: As Per HPI Nose/Mouth/Throat: As Per HPI - Cardiovascular Cardiovascular: As Per HPI - Respiratory Respiratory: As Per HPI - Gastrointestinal Gastrointestinal: As Per HPI - Genitourinary Genitourinary: As Per HPI. absent: Flank Pain - Musculoskeletal Musculoskeletal: As Per HPI - Integumentary Integumentary: As Per HPI - Neurological Neurological: As Per HPI - Psychiatric Psychiatric: As Per HPI - Endocrine Endocrine: As Per HPI - Hematologic/Lymphatic Hematologic: As Per HPI Past Patient History - Infectious Disease Hx of Infectious Diseases: None - Tetanus Immunizations Tetanus Immunization: Unknown - Past Medical History & Family History Past Medical History?: Yes - Past Social History Smoking Status: Heavy Smoker > 10 Cigarettes Daily - CARDIAC Hx Cardiac Disorders: Yes ([place]) Hx Hypertension: Yes Other/Comment: CABG. BYPASS. 3 STENTS - PULMONARY Hx Respiratory Disorders: Yes Hx Bronchitis: Yes Hx Chronic Obstructive Pulmonary Disease (COPD): Yes Hx Tuberculosis: No - NEUROLOGICAL Hx Neurological Disorder: No (denies) - HEENT Hx HEENT Problems: Yes Hx Cataracts: Yes (right eye) Hx Glaucoma: No - RENAL Hx Chronic Kidney Disease: No - ENDOCRINE/METABOLIC Hx Endocrine Disorders: No - HEMATOLOGICAL/ONCOLOGICAL Hx Blood Disorders: Yes (blood transfusion) Hx Anemia: Yes Hx Cancer: No - INTEGUMENTARY Hx Dermatological Problems: No - MUSCULOSKELETAL/RHEUMATOLOGICAL Hx Musculoskeletal Disorders: Yes - GASTROINTESTINAL Hx Gastrointestinal Disorders: Yes Hx Gall Bladder Disease: Yes (Gall stones removed) Hx Gastroesophageal Reflux: Yes - GENITOURINARY/GYNECOLOGICAL Hx Genitourinary Disorders: No (denies) - PSYCHIATRIC Hx Psychophysiologic Disorder: Yes Hx Anxiety: Yes Hx Substance Use: No - SURGICAL HISTORY Hx Cardiac Catheterization: Yes Hx Coronary Artery Bypass Graft: Yes Hx Coronary Stent: Yes (x3) Hx Open Heart Surgery: Yes - ANESTHESIA Hx Anesthesia: Yes Hx Anesthesia Reactions: No Hx Malignant Hyperthermia: No Meds Allergies/Adverse Reactions: Allergies Allergy/AdvReac Type Severity Reaction Status Date / Time shellfish derived Allergy ANAPHYLAXIS Verified 04/25/17 20:41 Sulfa (Sulfonamide Allergy RASH Verified 04/25/17 20:41 Antibiotics) Physical Exam - Head Exam Head Exam: ATRAUMATIC, NORMAL INSPECTION, NORMOCEPHALIC - Eye Exam Eye Exam: EOMI, Normal appearance Pupil Exam: Irregular, NORMAL ACCOMODATION, PERRL. absent: Unequal - ENT Exam ENT Exam: Mucous Membranes Moist, Normal Exam - Neck Exam Neck exam: Positive for: Normal Inspection. Negative for: Lymphadenopathy, Tenderness, Thyromegaly - Respiratory Exam Respiratory Exam: Clear to Auscultation Bilateral, NORMAL BREATHING PATTERN. absent: Chest Wall Tenderness, Respiratory Distress - Cardiovascular Exam Cardiovascular Exam: REGULAR RHYTHM, RRR, +S1, +S2 - GI/Abdominal Exam GI & Abdominal Exam: Normal Bowel Sounds, Soft. absent: Hyperactive Bowel Sounds, Tenderness - Extremities Exam Extremities exam: Positive for: full ROM, normal inspection. Negative for: pedal edema - Back Exam Back exam: NORMAL INSPECTION. absent: CVA tenderness (L), CVA tenderness (R), paraspinal tenderness - Neurological Exam Neurological exam: Alert, CN II-XII Intact, Oriented x3, Reflexes Normal - Psychiatric Exam Psychiatric exam: Normal Affect, Normal Mood - Skin Skin Exam: Dry, Intact, Normal Color Results - Vital Signs Recent Vital Signs: Last Vital Signs Temp 98.5 F 04/25/17 14:13 Pulse 78 04/25/17 18:02 Resp 18 04/25/17 16:53 BP 104/62 04/25/17 18:02 Pulse Ox 100 04/25/17 16:53 - Labs Result Diagrams: 04/25/17 15:00 04/25/17 15:00 Assessment & Plan - Assessment and Plan (Free Text) Assessment: 62 yo M with PMH of CAD with MIx4 s/p stents x4 and CABG (triple bypass) in 2006 , COPD, HTN, who presents complaining of CP and SOB. Plan: 1. Chest pain r/o ACS - Serial troponin. Will f/u with results tomorrow. - Cardiology consulted. Will f/u with rec's tomorrow. - EKG reviewed and no changes from prior - Recent echo 02/2017 - reviewed - EF 50% -Stress test ordered for tomrrow. F/U with rec's tomorrow. - Cont ASA, Plavix, Lipitor - AM labs 2. COPD - Duonebs PRN - Cont Brovana, Singular - CXR - no active dx 3. Cough - Viral vs bronchitis vs PNA vs chronic cause - Monitor off abx for now since afebrile, no leukocytosis - CXR - no active dx - Robitussin as needed 4. GI/DVT ppx - Protonix and SCDs Case and plan was reviewed and discussed with Dr Ramirez. <Capo Ramirez - Last Filed: 04/26/17 12:15> Results - Vital Signs Recent Vital Signs: Last Vital Signs Temp 98.1 F 04/26/17 11:57 Pulse 73 04/26/17 11:57 Resp 16 04/26/17 11:57 BP 129/68 04/26/17 11:57 Pulse Ox 95 04/26/17 06:00 - Labs Result Diagrams: 04/26/17 11:35 04/26/17 11:35 Labs: Laboratory Results - last 24 hr 04/26/17 04/26/17 11:35 11:35 WBC 7.8 RBC 3.77 Hgb 12.6 L Hct 37.6 L MCV 99.7 MCH 33.4 MCHC 33.5 RDW 14.0 Plt Count 252 MPV 9.1 Gran % 74.4 H Lymph % (Auto) 18.4 L [place] % (Auto) 7.2 H Eos % (Auto) 0.0 L Baso % (Auto) 0.0 Gran # 5.80 Lymph # 1.4 [place] # 0.6 Eos # 0.0 Baso # 0.00 Sodium 139 Potassium 4.7 Chloride 98 Carbon Dioxide 28 Anion Gap 18 BUN 23 H Creatinine 0.8 Est GFR ( Amer) > 60 Est GFR (Non-Af Amer) > 60 Random Glucose 126 H Calcium 9.7 Total Bilirubin 0.6 AST 33 ALT 35 Alkaline Phosphatase 63 Total Protein 7.4 Albumin 4.6 Globulin 2.9 Albumin/Globulin Ratio 1.6 Attending/Attestation - Attestation I have personally seen and examined this patient.: Yes I have fully participated in the care of the patient.: Yes I have reviewed all pertinent clinical information: Yes Notes (Text): 04/26/17 12:14 attending note; Patient seen and examined with resident in ER. Patient is a 62 year old Male with PMH of CAD with MIx4 s/p stents x4 and CABG (triple bypass) in 2005, COPD, HTN, who presents complaining of CP and SOB. The patient has multiple admissions for the same. the patient was discharged yesterday. Case discussed with cardiology detail. Plan for stress test in am. COPD; continue DuoNeb treatment. Started on IV Solu-Medrol. Active smoking; complete smoking cessation is strongly advised. Patient is very noncompliant with follow-up. Started on NicoDerm patch. Alcohol abuse; complete alcohol cessation is strongly advised. the patient follows up with PMD Dr. Damon. For follows up with cardiology Dr. Garcia at [facility].
[2017-04-25] MEDS ORDERED: Albuterol 0.083% Inhal Sol (2.5 mg/3 mL) UD IH SCH (20:00)
[2017-04-25] MEDS ORDERED: Budesonide 0.5 mg/2 ml Inhal Susp UD IH SCH (20:00)
--- NOTE | 2017-04-25 20:43 | CARD ---
APPROVED REPORT EKG Measurement Heart [id number] <Conclusion> Normal sinus rhythm Early repolarization Normal ECG
[2017-04-25] MEDS: MethylPREDNISolone 40 mg Vial IVP SCH (21:11)
[2017-04-25] MEDS ORDERED: Pneumococcal 23-Valent Vaccine IM ONE (22:27)
[2017-04-25 22:28] VITALS: BMI 23.1
[2017-04-26] MEDS: Pantoprazole 40 mg EC Tab PO SCH (05:06)
[2017-04-26] MEDS ORDERED: Aminophylline 25 mg/ml Inj ONE (07:22)
[2017-04-26] MEDS: MethylPREDNISolone 40 mg Vial IVP SCH ×2 (10:55→21:23)
[2017-04-26 11:47] LABS: GRAN # 5.8 (1.4-6.5); GRAN % 74.4 % (50.0-68.0); HEMATOCRIT 37.6 % (42.0-52.0); LYMPH # 1.4 (1.2-3.4); LYMPH % 18.4 % (22.0-35.0); MEAN CELL VOLUME 99.7 fl (80.0-105.0); MEAN CORPUSCULAR HEMOGLOBIN 33.4 pg (25.0-35.0); MEAN CORPUSCULAR HGB CONC 33.5 g/dl (31.0-37.0); MEAN PLATELET VOLUME 9.1 fl (7.0-11.0); MONO # 0.6 (0.1-0.6); MONO % 7.2 % (1.0-6.0); WHITE BLOOD COUNT 7.8 10^3/ul (4.5-11.0)
[2017-04-26 11:52] LABS: ALB/GLOB RATIO 1.6 (1.1-1.8); ALKALINE PHOSPHATASE 63 U/L (38-126); ALT/SGPT 35 U/L (7-56); AST/SGOT 33 U/L (17-59); BILIRUBIN,TOTAL 0.6 mg/dL (0.2-1.3); BLOOD UREA NITROGEN 23 mg/dL (7-21); CALCIUM 9.7 mg/dL (8.4-10.5); CARBON DIOXIDE 28 mmol/L (21-33); CHLORIDE 98 mmol/L (95-110); GFR AFRICAN-AMERICAN > 60; GLUCOSE,RANDOM 126 mg/dL (70-110); POTASSIUM 4.7 mmol/L (3.6-5.0); SODIUM 139 mmol/L (132-148); TOTAL PROTEIN 7.4 g/dL (5.8-8.3)
--- NOTE | 2017-04-26 14:14 | CP.PCM.DIS ---
Provider - Provider Date of Admission: 04/25/17 16:09 Attending physician: Capo Ramirez MD Primary care physician: Lauren Damon DO Time Spent in preparation of Discharge (in minutes): 30 Diagnosis - Discharge Diagnosis (1) Chest pain Status: Acute Priority: Medium (2) Acute exacerbation of COPD with asthma Status: Acute Priority: Medium (3) Coronary artery disease Status: Chronic Priority: Medium (4) Dyspnea Status: Acute Priority: Medium Hospital Course - Lab Results Lab Results: Most Recent Lab Values WBC 7.8 10^3/ul (4.5-11.0) 04/26/17 11:35 RBC 3.77 10^6/uL (3.5-6.1) 04/26/17 11:35 Hgb 12.6 g/dL (14.0-18.0) L 04/26/17 11:35 Hct 37.6 % (42.0-52.0) L 04/26/17 11:35 MCV 99.7 fl (80.0-105.0) 04/26/17 11:35 MCH 33.4 pg (25.0-35.0) 04/26/17 11:35 MCHC 33.5 g/dl (31.0-37.0) 04/26/17 11:35 RDW 14.0 % (11.5-14.5) 04/26/17 11:35 Plt Count 252 10^3/uL (120.0-450.0) 04/26/17 11:35 MPV 9.1 fl (7.0-11.0) 04/26/17 11:35 Gran % 74.4 % (50.0-68.0) H 04/26/17 11:35 Lymph % (Auto) 18.4 % (22.0-35.0) L 04/26/17 11:35 Lassen % (Auto) 7.2 % (1.0-6.0) H 04/26/17 11:35 Eos % (Auto) 0.0 % (1.5-5.0) L 04/26/17 11:35 Baso % (Auto) 0.0 % (0.0-3.0) 04/26/17 11:35 Gran # 5.80 (1.4-6.5) 04/26/17 11:35 Lymph # 1.4 (1.2-3.4) 04/26/17 11:35 Lassen # 0.6 (0.1-0.6) 04/26/17 11:35 Eos # 0.0 (0.0-0.7) 04/26/17 11:35 Baso # 0.00 K/mm3 (0.0-2.0) 04/26/17 11:35 PT 10.2 Seconds (9.9-11.8) 04/25/17 15:00 INR 0.94 (0.93-1.08) 04/25/17 15:00 APTT 22.8 Seconds (23.7-30.8) L 04/25/17 15:00 Sodium 139 mmol/L (132-148) 04/26/17 11:35 Potassium 4.7 mmol/L (3.6-5.0) 04/26/17 11:35 Chloride 98 mmol/L (95-110) 04/26/17 11:35 Carbon Dioxide 28 mmol/L (21-33) 04/26/17 11:35 Anion Gap 18 (10-20) 04/26/17 11:35 BUN 23 mg/dL (7-21) H 04/26/17 11:35 Creatinine 0.8 mg/dL (0.8-1.5) 04/26/17 11:35 Est GFR ( Amer) > 60 04/26/17 11:35 Est GFR (Non-Af Amer) > 60 04/26/17 11:35 Random Glucose 126 mg/dL (70-110) H 04/26/17 11:35 Calcium 9.7 mg/dL (8.4-10.5) 04/26/17 11:35 Magnesium 2.0 mg/dL (1.7-2.2) 04/25/17 15:00 Total Bilirubin 0.6 mg/dL (0.2-1.3) 04/26/17 11:35 AST 33 U/L (17-59) 04/26/17 11:35 ALT 35 U/L (7-56) 04/26/17 11:35 Alkaline Phosphatase 63 U/L (38-126) 04/26/17 11:35 Lactate Dehydrogenase 433 U/L (333-699) 04/25/17 15:00 Total Creatine Kinase 103 U/L (35-230) 04/25/17 15:00 Troponin I < 0.01 ng/mL 04/25/17 15:00 Total Protein 7.4 g/dL (5.8-8.3) 04/26/17 11:35 Albumin 4.6 g/dL (3.0-4.8) 04/26/17 11:35 Globulin 2.9 gm/dL 04/26/17 11:35 Albumin/Globulin Ratio 1.6 (1.1-1.8) 04/26/17 11:35 - Hospital Course Hospital Course: Patient is a 62 year old male with a past medical history of CAD with [place] x4 s/p stents x4 and CABG (triple bypass) in 2006, COPD, HTN, who was admitted for evaluation of chest pain and shortness of breath. With the use of physical examinations, lab work, and imaging the patient was diagnosed with and treated for COPD exaceration and acute coronary syndrome was ruled out. During their hospital stay the patient was seen by cardiology, Dr. Cunningham, whose recommendations were appreciated. During their hospital stay the patient underwent a chest xray and myocardial stress test which were reviewed, appreciated, and utilized in the management of the patients clinical course. Patient was treated with antihypertensive medications, nebulizer treatments, steroids, amongst other empiric/therapeutic medications. At this time the patient is medically stable for discharge. Patient understands and appreciates discharge plan. Patient instructed to follow up with primary care physicians and referrals within three to five days from discharge. Furthermore, the patient is instructed to take medications as prescribed and to return to emergency room for evaluation of intractable headache, fever, chills, dizziness , chest pain, shortness of breath, abdominal pain, nausea, vomiting, diarrhea, constipation, and urinary symptoms. This is a brief summary of the patients hospital course. Please see patient chart for full details. Discharge Exam - Head Exam Head Exam: ATRAUMATIC, NORMAL INSPECTION, NORMOCEPHALIC - Additional Findings Additional findings: - Head Exam Head Exam: ATRAUMATIC, NORMOCEPHALIC - Additional Findings Additional findings: - Constitutional Appears: No Acute Distress - Head Exam Head Exam: ATRAUMATIC, NORMOCEPHALIC - Eye Exam Eye Exam: EOMI, PERRL - ENT Exam ENT Exam: Mucous Membranes Moist - Respiratory Exam Respiratory Exam: Clear to Auscultation Bilateral. absent: Rales, Rhonchi, Wheezes - Cardiovascular Exam Cardiovascular Exam: REGULAR RHYTHM, RRR, +S1, +S2 - GI/Abdominal Exam GI & Abdominal Exam: Normal Bowel Sounds, Soft. absent: Tenderness - Extremities Exam Extremities exam: Negative for: calf tenderness, pedal edema - Neurological Exam Neurological exam: Alert, CN II-XII Intact, Oriented x3 - Psychiatric Exam Psychiatric exam: Normal Affect, Normal Mood - Skin Skin Exam: Dry, Intact, Normal Color, Warm Discharge Plan - Follow Up Plan Condition: STABLE Disposition: HOME/ ROUTINE Patient education suggested?: Yes Additional Instructions: Patient Instructions: Take medications as prescribed. Follow up with PMD and referrals within three to five days from discharge. Return to emergency room for evaluation of intractable headache, fever, chills, dizziness, chest pain, shortness of breath, abdominal pain, nausea, vomiting, diarrhea, constipation, and urinary symptoms. Referrals: Lauren Damon DO [Primary Care Provider] -
[2017-04-26 14:34] LABS: TROPONIN I < 0.01 ng/mL
--- NOTE | 2017-04-26 21:19 | CARD ---
APPROVED REPORT Protocol: LEXISCAN Test Type: Lexiscan Sestamibi Stress Test Attending Physician: Dr. Awais Cunningham Referring Physician: Dr. Capo Ramirez Test Indications: Chest Pain. Height:5 ft 9 in Weight:157lbs Medications: Aspirin, Coreg, Plavix, Folic Acid, Imdur, Solumedrol, Singulair, Nicoderm Protonix Medical History: 62 y/o male with chest pain and a H/O CAD and PCIs. Target HR: 156 bpm Resting ECG: RSR Resting Heart Rate: 67 bpm Resting Blood Pressure: 132/70mmHg Submaximum (85%): 133 bpm PROCEDURE Pharmacologic stress testing was performed using 0.4mg per 5ml of regadenoson given intravenously over 7-10 seconds. POST EXERCISE Reason for Termination: Protocol completed Target HR: No Max HR: 96 bpm 67% of Maximum Predicted HR: 156 bpm Exercise duration: 05:25 min:sec, 0 Stage Exercise capacity: 1.0METs Max Blood Pressure: 132/70mmHg Blood Pressure response to exercise: normal resting BP - appropriate response Heart Rate response to exercise: appropriate Chest Pain: Yes, mild chest pain Angina index: 0 Arrhythmia: No, none ST Change: No, none Deviation: 0 mm TEST SUMMARY [id number]/70.0. INFUSIONDOSE 101:000.00.01.095/.0.00:28 Zeina inj over 10 sec, Chencho inj at 25 sec. INFUSIONDOSE 201:[id number]/60.0. INFUSIONDOSE 301:[id number]/60.0. INFUSIONDOSE 401:000.00.01.097/.0. INFUSIONDOSE 501:000.00.01.097/.0. INFUSIONDOSE 600:240.00.01.096/.0. INTERPRETATION Stress EKG Conclusion: Lexiscan nuclear stress test which was positive for chest pain but negative for ischemia and arrhythmia. Nuclear scans pending. Signed by Awais Cunningham Electronically Approved: 04/26/2017 12:42:01 EXAM: Myocardial Perfusion REST/STRESS Stress Test Type: Pharmacologic Imaging Protocol Rest Spect myocardial perfusion imaging was performed in supine position 45 minutes following the injection of 10.9 mCi of Tc-99 Myoview. At peak stress, the patient was injected intravenously with 30.4mCi of Tc-99 tetrofosmin after an infusion time of 0 minutes and 10 seconds. Gated Stress Spect was performed 60 minutes after intravenous Tc-99 Myoview injection. The images were gated to evaluate regional wall motion and calculate ventricular ejection fraction.Images were reconstructed using backfilter projection method in short horizontal and verticle long axis. Spect slices were generated. LV Perfusion The quality of the study is good. The left ventricle is mildly enlarged in size. The right ventricle is unremarkable. The lung uptake is normal. The distribution of tracer reveals an area of mildly to moderatelydecreased perfusion involving mid to distal anteroseptal wall on the stress study. The remainder of the LV myocardium is unremarkable. The rest myocardial perfusion study shows partial improvement of anteroseptal defect. Wall Motion Wall motion study shows normal contractility except for paradoxical septal wall motion. LVEF = 66%. Conclusion 1. Probably abnormal SPECT myocardial perfusion study. 2. Partially reversible, small, anteroseptal defet is suspicious of ischemia. 3. Normal overall LV function despite paradoxical septal wall motion. 4. In comparison with the last study of 11/18/2015, the anteroseptal defect appears partially reversible in the current study.
[2017-04-27] MEDS: Albuterol 0.083% Inhal Sol (2.5 mg/3 mL) UD IH SCH ×4 (03:00→19:32)
[2017-04-27] MEDS: Pantoprazole 40 mg EC Tab PO SCH (05:10)
[2017-04-27] MEDS: Budesonide 0.5 mg/2 ml Inhal Susp UD IH SCH ×2 (08:00→19:31)
[2017-04-27] MEDS: Arformoterol 15 mcg/2 ml Inh Sol IH SCH ×2 (08:00→19:31)
[2017-04-27] MEDS ORDERED: guaiFENesin 100 mg/5 ml Syrup UD PO PRN (08:31)
[2017-04-27] MEDS: MethylPREDNISolone 40 mg Vial IVP SCH ×2 (09:44→21:45)
--- NOTE | 2017-04-27 10:07 | CP.PCM.PN ---
<Xavier Arce - Last Filed: 04/27/17 10:01> Subjective - Date & Time of Evaluation Date of Evaluation: 04/27/17 Time of Evaluation: 10:01 - Subjective Subjective: Pt seen and examined at bedside. Pt doing well overnight with no acute complaints. Pt notes improvement in breathing. Denies CP, SOB, N/V/D, fever, chills. Objective - Vital Signs/Intake and Output Vital Signs (last 24 hours): Temp Pulse Resp BP Pulse Ox 97.5 F L 89 20 109/65 99 04/27/17 06:00 04/27/17 09:44 04/27/17 06:00 04/27/17 09:44 04/27/17 06:00 - Medications Medications: Current Medications Acetaminophen (Tylenol 325mg Tab) 650 mg PO Q6H PRN PRN Reason: Pain, moderate (4-7) Last Admin: 04/27/17 09:52 Dose: 650 mg Albuterol Sulfate (Albuterol 0.083% Inhal Lidya (2.5 Mg/3 Ml) Ud) 2.5 mg IH [id number] [facility] Last Admin: 04/27/17 08:00 Dose: 2.5 mg Arformoterol Tartrate (Brovana) 15 mcg IH [id number] [facility] Last Admin: 04/27/17 08:00 Dose: 15 mcg Aspirin (Ecotrin) 81 mg PO DAILY [facility] Last Admin: 04/27/17 09:43 Dose: 81 mg Budesonide (Pulmicort Respules) 1 mg IH [id number] [facility] Last Admin: 04/27/17 08:00 Dose: 1 mg Carvedilol (Coreg) 3.125 mg PO BID [facility] Last Admin: 04/27/17 09:44 Dose: 3.125 mg Clopidogrel Bisulfate (Plavix) 75 mg PO DAILY [facility] Last Admin: 04/27/17 09:44 Dose: 75 mg Folic Acid (Folic Acid) 1 mg PO DAILY [facility] Last Admin: 04/27/17 09:43 Dose: 1 mg Guaifenesin (Robitussin) 100 mg PO Q4H PRN PRN Reason: Cough Last Admin: 04/27/17 09:52 Dose: 100 mg Ibuprofen (Motrin Tab) 400 mg PO Q6H PRN PRN Reason: Pain, moderate (4-7) Isosorbide Mononitrate (Imdur Er) 30 mg PO DAILY [facility] Last Admin: 04/27/17 09:44 Dose: 30 mg Methylprednisolone (Solu-Medrol) 40 mg IVP Q12 [facility] Last Admin: 04/27/17 09:44 Dose: 40 mg Montelukast Sodium (Singulair) 10 mg PO DAILY [facility] Last Admin: 04/27/17 09:43 Dose: 10 mg Nicotine (Nicoderm Cq) 1 patch TD DAILY [facility] Last Admin: 04/27/17 09:43 Dose: 1 patch Nitroglycerin (Nitrostat Sl Tab) 0.4 mg SL PRN PRN PRN Reason: pain Last Admin: 04/25/17 23:57 Dose: 0.4 mg Pantoprazole Sodium (Protonix Ec Tab) 40 mg PO 0600 [facility] Last Admin: 04/27/17 05:10 Dose: 40 mg - Labs Labs: PT 10.2 Seconds (9.9-11.8) 04/25/17 15:00 INR 0.94 (0.93-1.08) 04/25/17 15:00 APTT 22.8 Seconds (23.7-30.8) L 04/25/17 15:00 - Constitutional Appears: Non-toxic, No Acute Distress - Head Exam Head Exam: ATRAUMATIC, NORMAL INSPECTION, NORMOCEPHALIC - Respiratory Exam Respiratory Exam: Decreased Breath Sounds, Clear to Ausculation Bilateral, NORMAL BREATHING PATTERN. absent: Rhonchi, Wheezes - Cardiovascular Exam Cardiovascular Exam: RRR, +S1, +S2 - GI/Abdominal Exam GI & Abdominal Exam: Soft, Normal Bowel Sounds. absent: Tenderness - Extremities Exam Extremities Exam: absent: Calf Tenderness, Pedal Edema - Neurological Exam Neurological Exam: Alert, Awake, Oriented x3 - Psychiatric Exam Psychiatric exam: Normal Affect, Normal Mood - Skin Skin Exam: Intact, Normal Color, Warm Assessment and Plan - Assessment and Plan (Free Text) Plan: 62 y/o M with PMH of CAD, [place] x4 s/p stents x4 and CABG (triple bypass) in 2005, COPD, HTN, who presents complaining of CP and SOB. Pt underwent stress test which was found to be abnormal with small anterolateral defect, suspicious for ischemia. Will await cardio recs and continue IV steroids for COPD. 1. Chest pain r/o ACS - Troponins negative x 3, ACS ruled out. - Abnormal stress test, awaiting cardio recs. - Recent echo 02/2017 - reviewed - EF 50% 2. COPD - Continue IV solumedrol, will likely begin taper tomorrow - Duonebs PRN - Robitussin added PRN for cough - Continue Brovana, Singular 3. CAD, TX s/p stent placement - Continue ASA, Plavix, Lipitor, Coreg, Imdur 4. GI/DVT ppx - Protonix - SCDs Yazmin, PGY-2 <Cpao Ramirez - Last Filed: 04/27/17 13:41> Objective - Vital Signs/Intake and Output Vital Signs (last 24 hours): Temp Pulse Resp BP Pulse Ox 97.1 F L 72 19 108/66 99 04/27/17 12:00 04/27/17 13:19 04/27/17 12:00 04/27/17 12:00 04/27/17 06:00 - Medications Medications: Current Medications Acetaminophen (Tylenol 325mg Tab) 650 mg PO Q6H PRN PRN Reason: Pain, moderate (4-7) Last Admin: 04/27/17 09:52 Dose: 650 mg Albuterol Sulfate (Albuterol 0.083% Inhal Lidya (2.5 Mg/3 Ml) Ud) 2.5 mg IH [id number] [facility] Last Admin: 04/27/17 08:00 Dose: 2.5 mg Arformoterol Tartrate (Brovana) 15 mcg IH [id number] [facility] Last Admin: 04/27/17 08:00 Dose: 15 mcg Aspirin (Ecotrin) 81 mg PO DAILY [facility] Last Admin: 04/27/17 09:43 Dose: 81 mg Budesonide (Pulmicort Respules) 1 mg IH [id number] [facility] Last Admin: 04/27/17 08:00 Dose: 1 mg Carvedilol (Coreg) 3.125 mg PO BID [facility] Last Admin: 04/27/17 09:44 Dose: 3.125 mg Clopidogrel Bisulfate (Plavix) 75 mg PO DAILY [facility] Last Admin: 04/27/17 09:44 Dose: 75 mg Folic Acid (Folic Acid) 1 mg PO DAILY [facility] Last Admin: 04/27/17 09:43 Dose: 1 mg Guaifenesin (Robitussin) 100 mg PO Q4H PRN PRN Reason: Cough Last Admin: 04/27/17 09:52 Dose: 100 mg Ibuprofen (Motrin Tab) 400 mg PO Q6H PRN PRN Reason: Pain, moderate (4-7) Isosorbide Mononitrate (Imdur Er) 30 mg PO DAILY [facility] Last Admin: 04/27/17 09:44 Dose: 30 mg Methylprednisolone (Solu-Medrol) 40 mg IVP Q12 [facility] Last Admin: 04/27/17 09:44 Dose: 40 mg Montelukast Sodium (Singulair) 10 mg PO DAILY [facility] Last Admin: 04/27/17 09:43 Dose: 10 mg Nicotine (Nicoderm Cq) 1 patch TD DAILY [facility] Last Admin: 04/27/17 09:43 Dose: 1 patch Nitroglycerin (Nitrostat Sl Tab) 0.4 mg SL PRN PRN PRN Reason: pain Last Admin: 04/25/17 23:57 Dose: 0.4 mg Pantoprazole Sodium (Protonix Ec Tab) 40 mg PO 0600 [facility] Last Admin: 04/27/17 05:10 Dose: 40 mg - Labs Labs: PT 10.2 Seconds (9.9-11.8) 04/25/17 15:00 INR 0.94 (0.93-1.08) 04/25/17 15:00 APTT 22.8 Seconds (23.7-30.8) L 04/25/17 15:00 Attending/Attestation - Attestation I have personally seen and examined this patient.: Yes I have fully participated in the care of the patient.: Yes I have reviewed all pertinent clinical information, including history, physical exam and plan: Yes Notes (Text): 04/27/17 13:40 attending note; Patient seen and examined with resident. Patient is a 62 year old Male with PMH of CAD with MIx4 s/p stents x4 and CABG (triple bypass) in 2005, COPD, HTN, who presents complaining of CP and SOB. The patient has multiple admissions for the same. Stress test showed anteroseptal defect shows partially reversible ischemia. Will discuss with cardiology for possible cardiac cath. COPD; continue DuoNeb treatment. Started on IV Solu-Medrol. Active smoking; complete smoking cessation is strongly advised. Patient is very noncompliant with follow-up. Started on NicoDerm patch. upon discharge the patient will follow up with PMD Dr. Damon. For follows up with cardiology Dr. Garcia at [facility].
[2017-04-27] MEDS: Enoxaparin 30 mg Syringe SC SCH (14:51)
[2017-04-28] MEDS: Albuterol 0.083% Inhal Sol (2.5 mg/3 mL) UD IH SCH ×5 (01:14→23:27)
[2017-04-28] MEDS: Pantoprazole 40 mg EC Tab PO SCH (06:11)
--- NOTE | 2017-04-28 07:11 | PN ---
DATE: 04/28/2017 SUBJECTIVE: The patient is seen lying in bed. On telemetry, he complains of intermittent chest pain. He is known from prior admissions. He presented again with chest pain and underwent a stress test. This showed evidence of possible reversible intraseptal defect suspicious for ischemia. His ejection fraction was normal. The intraseptal defect appears new compared to prior study. CURRENT MEDICATIONS: Include albuterol inhaler, Brovana, carvedilol 3.125 mg b.i.d., Ecotrin 81 mg daily, folic acid, Imdur 30 mg daily, Lovenox, Nicoderm patch, Plavix 75 mg daily, Protonix 40 mg daily, Pulmicort inhaler, Robitussin, Singulair, and Solu-Medrol. OBJECTIVE: GENERAL: He is a middle-aged man who appears comfortable at rest. VITAL SIGNS: His blood pressure is 112/66, pulse is 60 and sinus, respirations are 14, and he is afebrile. HEENT: No JVD. CHEST: Few scattered rhonchi. HEART: PMI normal position. Systolic murmur is present in the left sternal border. ABDOMEN: Soft, nontender with normoactive bowel sounds. EXTREMITIES: No edema. DIAGNOSTIC DATA: Morning blood work is pending. IMPRESSION: Known coronary artery disease status post prior bypass surgery and percutaneous coronary intervention with recurrent angina and abnormal stress test. Rest of problems as noted. RECOMMENDATIONS: Given this presentation and stress test finding, plans are made for cardiac catheterization tomorrow. His current medications will continue. Further recommendations will be made based upon the results of catheterization. Milton Disla MD
[2017-04-28 09:09] LABS: HEMATOCRIT 40.5 % (42.0-52.0); MEAN CELL VOLUME 100.5 fl (80.0-105.0); MEAN CORPUSCULAR HEMOGLOBIN 33.5 pg (25.0-35.0); MEAN CORPUSCULAR HGB CONC 33.3 g/dl (31.0-37.0); MEAN PLATELET VOLUME 9.2 fl (7.0-11.0)
[2017-04-28 09:17] LABS: BLOOD UREA NITROGEN 27 mg/dL (7-21); CALCIUM 9.5 mg/dL (8.4-10.5); CARBON DIOXIDE 28 mmol/L (21-33); CHLORIDE 100 mmol/L (98-107); GFR AFRICAN-AMERICAN > 60; GLUCOSE,RANDOM 122 mg/dL (70-110); POTASSIUM 4.1 mmol/L (3.6-5.0); SODIUM 140 mmol/L (132-148)
--- NOTE | 2017-04-28 09:54 | CP.PCM.PN ---
<Xavier Arce - Last Filed: 04/28/17 09:49> Subjective - Date & Time of Evaluation Date of Evaluation: 04/28/17 Time of Evaluation: 09:49 - Subjective Subjective: Pt seen and examined at bedside. Pt with no acute events overnight. Pt doing well with minimal complaints about breathing. Denies CP, SOB, N/V/D, fever, chills. Objective - Vital Signs/Intake and Output Vital Signs (last 24 hours): Temp Pulse Resp BP Pulse Ox 97.7 F 60 20 112/66 99 04/28/17 05:56 04/28/17 05:56 04/28/17 05:56 04/28/17 05:56 04/28/17 05:56 Intake and Output: 04/28/17 04/28/17 06:59 18:59 Intake Total 600 Output Total 1200 Balance -600 - Medications Medications: Current Medications Acetaminophen (Tylenol 325mg Tab) 650 mg PO Q6H PRN PRN Reason: Pain, moderate (4-7) Last Admin: 04/27/17 09:52 Dose: 650 mg Albuterol Sulfate (Albuterol 0.083% Inhal Lidya (2.5 Mg/3 Ml) Ud) 2.5 mg IH [id number] [facility] Last Admin: 04/28/17 01:14 Dose: Not Given Arformoterol Tartrate (Brovana) 15 mcg IH [id number] [facility] Last Admin: 04/27/17 19:31 Dose: 15 mcg Aspirin (Ecotrin) 81 mg PO DAILY [facility] Last Admin: 04/27/17 09:43 Dose: 81 mg Budesonide (Pulmicort Respules) 1 mg IH [id number] [facility] Last Admin: 04/27/17 19:31 Dose: 1 mg Carvedilol (Coreg) 3.125 mg PO BID [facility] Last Admin: 04/27/17 18:23 Dose: 3.125 mg Clopidogrel Bisulfate (Plavix) 75 mg PO DAILY [facility] Last Admin: 04/27/17 09:44 Dose: 75 mg Diphenhydramine HCl (Benadryl) 25 mg PO Q6 PRN PRN Reason: Itching / Pruritus Enoxaparin Sodium (Lovenox) 30 mg SC DAILY [facility] PRN Reason: Protocol Last Admin: 04/27/17 14:51 Dose: 30 mg Folic Acid (Folic Acid) 1 mg PO DAILY [facility] Last Admin: 04/27/17 09:43 Dose: 1 mg Guaifenesin (Robitussin) 100 mg PO Q4H PRN PRN Reason: Cough Last Admin: 04/27/17 09:52 Dose: 100 mg Sodium Chloride (Sodium Chloride 0.9%) 1,000 mls @ 75 mls/hr IV .[id number] [facility] Ibuprofen (Motrin Tab) 400 mg PO Q6H PRN PRN Reason: Pain, moderate (4-7) Last Admin: 04/27/17 16:24 Dose: 400 mg Isosorbide Mononitrate (Imdur Er) 30 mg PO DAILY [facility] Last Admin: 04/27/17 09:44 Dose: 30 mg Methylprednisolone (Solu-Medrol) 40 mg IVP Q12 [facility] Last Admin: 04/27/17 21:45 Dose: 40 mg Montelukast Sodium (Singulair) 10 mg PO DAILY [facility] Last Admin: 04/27/17 09:43 Dose: 10 mg Nicotine (Nicoderm Cq) 1 patch TD DAILY [facility] Last Admin: 04/27/17 09:43 Dose: 1 patch Nitroglycerin (Nitrostat Sl Tab) 0.4 mg SL PRN PRN PRN Reason: pain Last Admin: 04/28/17 06:49 Dose: 0.4 mg Pantoprazole Sodium (Protonix Ec Tab) 40 mg PO 0600 [facility] Last Admin: 04/28/17 06:11 Dose: 40 mg - Labs Labs: 04/28/17 08:25 04/28/17 08:25 PT 10.2 Seconds (9.9-11.8) 04/25/17 15:00 INR 0.94 (0.93-1.08) 04/25/17 15:00 APTT 22.8 Seconds (23.7-30.8) L 04/25/17 15:00 - Constitutional Appears: Non-toxic, No Acute Distress - Head Exam Head Exam: ATRAUMATIC, NORMAL INSPECTION, NORMOCEPHALIC - Respiratory Exam Respiratory Exam: Clear to Ausculation Bilateral, NORMAL BREATHING PATTERN - Cardiovascular Exam Cardiovascular Exam: RRR, +S1, +S2 - GI/Abdominal Exam GI & Abdominal Exam: Soft, Normal Bowel Sounds. absent: Tenderness - Extremities Exam Extremities Exam: Normal Inspection. absent: Calf Tenderness, Pedal Edema - Neurological Exam Neurological Exam: Alert, Awake, Oriented x3 - Psychiatric Exam Psychiatric exam: Normal Affect, Normal Mood - Skin Skin Exam: Intact, Normal Color, Warm Assessment and Plan - Assessment and Plan (Free Text) Plan: 62 y/o M with PMH of CAD, CO x4 s/p stents x4 and CABG , COPD, and HTN presents complaining of CP and SOB. Pt underwent stress test which was found to be abnormal with small anterolateral defect, suspicious for ischemia. Pt will be scheduled for cardiac catheterization tomorrow. Continue IV steroids for COPD. 1. Chest pain r/o ACS - Troponins negative x 3, ACS ruled out. - Abnormal stress test, Cardiac cath tomorrow - NPO after midnight - NS @ 75 in PM - Recent echo 02/2017 - reviewed - EF 50% 2. COPD - Continue IV solumedrol - Duonebs PRN - Robitussin added PRN for cough - Continue Brovana, Singular 3. CAD, CO s/p stent placement - Continue ASA, Plavix, Lipitor, Coreg, Imdur 4. Tobacco use - Counseled on tobacco cessation - Nicoderm patch 5. GI/DVT ppx - Protonix - SCDs Yazmin, PGY-2 <Capo Ramirez - Last Filed: 04/28/17 13:56> Objective - Vital Signs/Intake and Output Vital Signs (last 24 hours): Temp Pulse Resp BP Pulse Ox 97.7 F 87 20 136/64 99 04/28/17 05:56 04/28/17 10:10 04/28/17 05:56 04/28/17 10:10 04/28/17 05:56 Intake and Output: 04/28/17 04/28/17 06:59 18:59 Intake Total 600 Output Total 1200 Balance -600 - Medications Medications: Current Medications Acetaminophen (Tylenol 325mg Tab) 650 mg PO Q6H PRN PRN Reason: Pain, moderate (4-7) Last Admin: 04/27/17 09:52 Dose: 650 mg Albuterol Sulfate (Albuterol 0.083% Inhal Lidya (2.5 Mg/3 Ml) Ud) 2.5 mg IH [id number] Last Admin: 04/28/17 10:40 Dose: 2.5 mg Arformoterol Tartrate (Brovana) 15 mcg IH [id number] [facility] Last Admin: 04/28/17 10:39 Dose: 15 mcg Aspirin (Ecotrin) 81 mg PO DAILY [facility] Last Admin: 04/28/17 10:10 Dose: 81 mg Budesonide (Pulmicort Respules) 1 mg IH [id number] [facility] Last Admin: 04/28/17 10:39 Dose: 1 mg Carvedilol (Coreg) 3.125 mg PO BID [facility] Last Admin: 04/28/17 10:10 Dose: 3.125 mg Clopidogrel Bisulfate (Plavix) 75 mg PO DAILY [facility] Last Admin: 04/28/17 10:10 Dose: 75 mg Diphenhydramine HCl (Benadryl) 25 mg PO Q6 PRN PRN Reason: Itching / Pruritus Enoxaparin Sodium (Lovenox) 30 mg SC DAILY [facility] PRN Reason: Protocol Last Admin: 04/28/17 10:17 Dose: Not Given Folic Acid (Folic Acid) 1 mg PO DAILY [facility] Last Admin: 04/28/17 10:10 Dose: 1 mg Guaifenesin (Robitussin) 100 mg PO Q4H PRN PRN Reason: Cough Last Admin: 04/27/17 09:52 Dose: 100 mg Sodium Chloride (Sodium Chloride 0.9%) 1,000 mls @ 75 mls/hr IV .[id number] [facility] Ibuprofen (Motrin Tab) 400 mg PO Q6H PRN PRN Reason: Pain, moderate (4-7) Last Admin: 04/27/17 16:24 Dose: 400 mg Isosorbide Mononitrate (Imdur Er) 30 mg PO DAILY [facility] Last Admin: 04/28/17 10:11 Dose: 30 mg Methylprednisolone (Solu-Medrol) 40 mg IVP Q12 [facility] Last Admin: 04/28/17 10:12 Dose: 40 mg Montelukast Sodium (Singulair) 10 mg PO DAILY [facility] Last Admin: 04/28/17 10:10 Dose: 10 mg Nicotine (Nicoderm Cq) 1 patch TD DAILY [facility] Last Admin: 04/28/17 10:11 Dose: 1 patch Nitroglycerin (Nitrostat Sl Tab) 0.4 mg SL PRN PRN PRN Reason: pain Last Admin: 04/28/17 06:49 Dose: 0.4 mg Pantoprazole Sodium (Protonix Ec Tab) 40 mg PO 0600 [facility] Last Admin: 04/28/17 06:11 Dose: 40 mg - Labs Labs: 04/28/17 08:25 04/28/17 08:25 PT 10.2 Seconds (9.9-11.8) 04/25/17 15:00 INR 0.94 (0.93-1.08) 04/25/17 15:00 APTT 22.8 Seconds (23.7-30.8) L 04/25/17 15:00 Attending/Attestation - Attestation I have personally seen and examined this patient.: Yes I have fully participated in the care of the patient.: Yes I have reviewed all pertinent clinical information, including history, physical exam and plan: Yes Notes (Text): 04/28/17 13:53 attending note; Patient seen and examined with resident. Patient is a 62 year old Male with PMH of CAD with MIx4 s/p stents x4 and CABG (triple bypass) in 2005, COPD, HTN, who presents complaining of CP and SOB. The patient has multiple admissions for the same. Stress test showed anteroseptal defect shows partially reversible ischemia. plan for cardiac cath in am. COPD; continue DuoNeb treatment. on IV Solu-Medrol. stable respiratory status. Active smoking; complete smoking cessation is strongly advised. Patient is very noncompliant with follow-up. Started on NicoDerm patch. upon discharge the patient will follow up with PMD Dr. Damon. For follows up with cardiology Dr. Garcia at [facility] [place].
[2017-04-28] MEDS: MethylPREDNISolone 40 mg Vial IVP SCH ×2 (10:12→21:45)
[2017-04-28] MEDS: Enoxaparin 30 mg Syringe SC SCH (10:17)
[2017-04-28] MEDS: Budesonide 0.5 mg/2 ml Inhal Susp UD IH SCH ×3 (10:39→23:27)
[2017-04-28] MEDS: Arformoterol 15 mcg/2 ml Inh Sol IH SCH ×3 (10:39→23:27)
[2017-04-28] MEDS: Sodium Chloride 0.9% 1,000 ML IV SCH (21:45)
[2017-04-29] MEDS: Albuterol 0.083% Inhal Sol (2.5 mg/3 mL) UD IH SCH ×4 (01:10→19:37)
--- NOTE | 2017-04-29 04:56 | CP.PCM.PN ---
<Vin Heath - Last Filed: 04/29/17 13:32> Subjective - Date & Time of Evaluation Date of Evaluation: 04/29/17 Time of Evaluation: 11:30 - Subjective Subjective: Subjective: Patient seen and examined at bedside. Resting comfortably in bed. No acute overnight events. Patient states SOB and CP have significantly improved relative to baseline. Offers no new complaints at this time. Refused cardiac catherization this morning but will comply tomorrow. Denies f/c/abdominal pain/n /v/d/c/urinary sxs. Physical Examination: - Head Exam Head Exam: ATRAUMATIC, NORMAL INSPECTION, NORMOCEPHALIC - Additional Findings Additional findings: - Head Exam Head Exam: ATRAUMATIC, NORMOCEPHALIC - Additional Findings Additional findings: - Constitutional Appears: No Acute Distress - Head Exam Head Exam: ATRAUMATIC, NORMOCEPHALIC - Eye Exam Eye Exam: EOMI, PERRL - ENT Exam ENT Exam: Mucous Membranes Moist - Respiratory Exam Respiratory Exam: Clear to Auscultation Bilateral. absent: Rales, Rhonchi, Wheezes - Cardiovascular Exam Cardiovascular Exam: REGULAR RHYTHM, RRR, +S1, +S2 - GI/Abdominal Exam GI & Abdominal Exam: Normal Bowel Sounds, Soft. absent: Tenderness - Extremities Exam Extremities exam: Negative for: calf tenderness, pedal edema - Neurological Exam Neurological exam: Patient is awake, alert, responds to verbal stimuli, answers questions appropriately, follows commands, and moves extremities past midline - Psychiatric Exam Psychiatric exam: Normal Affect, Normal Mood Assessment and Plan: Patient is a 62 y/o M with PMH of CAD, MD x4 s/p stents x4 and CABG , COPD, and HTN who is admitted for evaluation and treatment of CP and SOB. Chest pain r/o ACS - Troponins negative x 3, ACS ruled out. - Abnormal stress test- small anterolateral defect suspicious for ischemia, was scheduled for cath this AM but patient refused. Patient states he is willing to have cath completed tomorrow. - NPO after midnight - NS @ 75 in PM - Recent echo 02/2017 - reviewed - EF 50% COPD - Continue IV solumedrol-m reduced to 40mg IV daily - Duonebs PRN - Robitussin added PRN for cough - Continue Brovana, Singular CAD, MD s/p stent placement - Continue ASA, Plavix, Lipitor, Coreg, Imdur Tobacco use - Counseled on tobacco cessation - Nicoderm patch GI/DVT ppx - Protonix - SCDs Patient seen, case discussed with, and plan approved by attending physician, Dr. Roth. Objective - Vital Signs/Intake and Output Vital Signs (last 24 hours): Temp Pulse Resp BP Pulse Ox 97.3 F L 54 L 19 111/71 99 04/29/17 00:01 04/29/17 02:00 04/29/17 00:01 04/29/17 00:01 04/28/17 05:56 Intake and Output: 04/28/17 04/29/17 18:59 06:59 Intake Total 780 Output Total 850 Balance -70 - Medications Medications: Current Medications Acetaminophen (Tylenol 325mg Tab) 650 mg PO Q6H PRN PRN Reason: Pain, moderate (4-7) Last Admin: 04/27/17 09:52 Dose: 650 mg Albuterol Sulfate (Albuterol 0.083% Inhal Lidya (2.5 Mg/3 Ml) Ud) 2.5 mg IH [id number] [facility] Last Admin: 04/29/17 01:10 Dose: Not Given Arformoterol Tartrate (Brovana) 15 mcg IH [id number] [facility] Last Admin: 04/28/17 23:27 Dose: 15 mcg Aspirin (Ecotrin) 81 mg PO DAILY [facility] Last Admin: 04/28/17 10:10 Dose: 81 mg Budesonide (Pulmicort Respules) 1 mg IH [id number] [facility] Last Admin: 04/28/17 23:27 Dose: 1 mg Carvedilol (Coreg) 3.125 mg PO BID [facility] Last Admin: 04/28/17 17:33 Dose: 3.125 mg Clopidogrel Bisulfate (Plavix) 75 mg PO DAILY [facility] Last Admin: 04/28/17 10:10 Dose: 75 mg Diphenhydramine HCl (Benadryl) 25 mg PO Q6 PRN PRN Reason: Itching / Pruritus Enoxaparin Sodium (Lovenox) 30 mg SC DAILY [facility] PRN Reason: Protocol Last Admin: 04/28/17 10:17 Dose: Not Given Folic Acid (Folic Acid) 1 mg PO DAILY [facility] Last Admin: 04/28/17 10:10 Dose: 1 mg Guaifenesin (Robitussin) 100 mg PO Q4H PRN PRN Reason: Cough Last Admin: 04/27/17 09:52 Dose: 100 mg Sodium Chloride (Sodium Chloride 0.9%) 1,000 mls @ 75 mls/hr IV .[id number] [facility] Last Admin: 04/28/17 21:45 Dose: 75 mls/hr Ibuprofen (Motrin Tab) 400 mg PO Q6H PRN PRN Reason: Pain, moderate (4-7) Last Admin: 04/28/17 21:46 Dose: 400 mg Isosorbide Mononitrate (Imdur Er) 30 mg PO DAILY [facility] Last Admin: 04/28/17 10:11 Dose: 30 mg Methylprednisolone (Solu-Medrol) 40 mg IVP Q12 [facility] Last Admin: 04/28/17 21:45 Dose: 40 mg Montelukast Sodium (Singulair) 10 mg PO DAILY [facility] Last Admin: 04/28/17 10:10 Dose: 10 mg Nicotine (Nicoderm Cq) 1 patch TD DAILY [facility] Last Admin: 04/28/17 10:11 Dose: 1 patch Nitroglycerin (Nitrostat Sl Tab) 0.4 mg SL PRN PRN PRN Reason: pain Last Admin: 04/28/17 06:49 Dose: 0.4 mg Pantoprazole Sodium (Protonix Ec Tab) 40 mg PO 0600 [facility] Last Admin: 04/28/17 06:11 Dose: 40 mg - Labs Labs: 04/28/17 08:25 04/28/17 08:25 PT 10.2 Seconds (9.9-11.8) 04/25/17 15:00 INR 0.94 (0.93-1.08) 04/25/17 15:00 APTT 22.8 Seconds (23.7-30.8) L 04/25/17 15:00 Assessment and Plan (1) Chest pain Status: Acute (2) Acute exacerbation of COPD with asthma Status: Acute (3) Coronary artery disease Status: Chronic (4) Dyspnea Status: Acute <Virgilio Roth - Last Filed: 04/30/17 18:28> Objective - Vital Signs/Intake and Output Vital Signs (last 24 hours): Temp Pulse Resp BP Pulse Ox 98.1 F 61 20 127/74 96 04/30/17 00:01 04/30/17 06:00 04/30/17 00:01 04/30/17 00:01 04/30/17 00:01 - Labs Labs: 04/28/17 08:25 04/28/17 08:25 PT 10.2 Seconds (9.9-11.8) 04/25/17 15:00 INR 0.94 (0.93-1.08) 04/25/17 15:00 APTT 22.8 Seconds (23.7-30.8) L 04/25/17 15:00 Attending/Attestation - Attestation I have personally seen and examined this patient.: Yes I have fully participated in the care of the patient.: Yes I have reviewed all pertinent clinical information, including history, physical exam and plan: Yes Notes (Text): I have seen and examined the patient at bedside. Agree with the above note with the following additions/ exceptions: Briefly this is 62 year old male with history of CAD, MD s/p stents x4, CABG (triple bypass) in 2005, COPD, HTN, who presents complaining of CP and SOB. The patient has multiple admissions for the same. Stress test showed anteroseptal defect shows partially reversible ischemia. He was scheduled for cardiac cath however refused to go as he wanted to take shower. He is scheduled for cath tomorrow morning. Recent echo reveals EF of 50%. Patient is breathing well and denies any dyspnea. Taper solumedrol. Continue brovana and singulair. Tobacco cessation counselling provided. Upon discharge the patient will follow up with PMD Dr. Damon and Dr. Garcia at [facility]. Dr Virgilio Roth
[2017-04-29] MEDS: Pantoprazole 40 mg EC Tab PO SCH (06:48)
[2017-04-29] MEDS: Budesonide 0.5 mg/2 ml Inhal Susp UD IH SCH ×2 (08:36→19:37)
[2017-04-29] MEDS: Arformoterol 15 mcg/2 ml Inh Sol IH SCH ×2 (08:36→19:37)
--- NOTE | 2017-04-29 09:06 | CP.PCM.PN ---
Subjective - Date & Time of Evaluation Date of Evaluation: 04/29/17 Time of Evaluation: 07:00 - Subjective Subjective: Stable on 2R. He now refuses cardiac cath which was scheduled for this AM. No CP or SOB. He feels sweaty. V/S noted. RSR PE: Lungs: clear Cor.: S1S2 Abd.: soft Ext.; no edema Neuro.: alert Labs 04/28 noted. Nuclear stress test 04/26 noted. Objective - Vital Signs/Intake and Output Vital Signs (last 24 hours): Temp Pulse Resp BP Pulse Ox 97.3 F L 53 L 19 111/71 99 04/29/17 00:01 04/29/17 06:00 04/29/17 00:01 04/29/17 00:01 04/28/17 05:56 Intake and Output: 04/29/17 04/29/17 06:59 18:59 Intake Total 0 Output Total 900 Balance -900 - Medications Medications: Current Medications Acetaminophen (Tylenol 325mg Tab) 650 mg PO Q6H PRN PRN Reason: Pain, moderate (4-7) Last Admin: 04/27/17 09:52 Dose: 650 mg Albuterol Sulfate (Albuterol 0.083% Inhal Lidya (2.5 Mg/3 Ml) Ud) 2.5 mg IH [id number] [facility] Last Admin: 04/29/17 08:36 Dose: 2.5 mg Arformoterol Tartrate (Brovana) 15 mcg IH [id number] [facility] Last Admin: 04/29/17 08:36 Dose: 15 mcg Aspirin (Ecotrin) 81 mg PO DAILY [facility] Last Admin: 04/28/17 10:10 Dose: 81 mg Budesonide (Pulmicort Respules) 1 mg IH [id number] [facility] Last Admin: 04/29/17 08:36 Dose: 1 mg Carvedilol (Coreg) 3.125 mg PO BID [facility] Last Admin: 04/28/17 17:33 Dose: 3.125 mg Clopidogrel Bisulfate (Plavix) 75 mg PO DAILY [facility] Last Admin: 04/28/17 10:10 Dose: 75 mg Diphenhydramine HCl (Benadryl) 25 mg PO Q6 PRN PRN Reason: Itching / Pruritus Enoxaparin Sodium (Lovenox) 30 mg SC DAILY [facility] PRN Reason: Protocol Last Admin: 04/28/17 10:17 Dose: Not Given Folic Acid (Folic Acid) 1 mg PO DAILY [facility] Last Admin: 04/28/17 10:10 Dose: 1 mg Guaifenesin (Robitussin) 100 mg PO Q4H PRN PRN Reason: Cough Last Admin: 04/27/17 09:52 Dose: 100 mg Sodium Chloride (Sodium Chloride 0.9%) 1,000 mls @ 75 mls/hr IV .[id number] [facility] Last Admin: 04/28/17 21:45 Dose: 75 mls/hr Ibuprofen (Motrin Tab) 400 mg PO Q6H PRN PRN Reason: Pain, moderate (4-7) Last Admin: 04/28/17 21:46 Dose: 400 mg Isosorbide Mononitrate (Imdur Er) 30 mg PO DAILY [facility] Last Admin: 04/28/17 10:11 Dose: 30 mg Methylprednisolone (Solu-Medrol) 40 mg IVP Q12 [facility] Last Admin: 04/28/17 21:45 Dose: 40 mg Montelukast Sodium (Singulair) 10 mg PO DAILY [facility] Last Admin: 04/28/17 10:10 Dose: 10 mg Nicotine (Nicoderm Cq) 1 patch TD DAILY [facility] Last Admin: 04/28/17 10:11 Dose: 1 patch Nitroglycerin (Nitrostat Sl Tab) 0.4 mg SL PRN PRN PRN Reason: pain Last Admin: 04/29/17 08:19 Dose: 0.4 mg Pantoprazole Sodium (Protonix Ec Tab) 40 mg PO 0600 [facility] Last Admin: 04/29/17 06:48 Dose: Not Given - Labs Labs: 04/28/17 08:25 04/28/17 08:25 PT 10.2 Seconds (9.9-11.8) 04/25/17 15:00 INR 0.94 (0.93-1.08) 04/25/17 15:00 APTT 22.8 Seconds (23.7-30.8) L 04/25/17 15:00 Assessment and Plan - Assessment and Plan (Free Text) Assessment: Chest Pain Abnormal nuclear stress test: small A-S reversible defect CAD/CABG/PCI COPD/Smoker CEA, right H/O Gall Bladder surgery PN Depression Plan: Pt refuses cardiac cath scheduled for this AM. Continue medical therapy. OOB ad miguel.
[2017-04-29] MEDS: MethylPREDNISolone 40 mg Vial IVP SCH (10:10)
[2017-04-29] MEDS: Sodium Chloride 0.9% 1,000 ML IV SCH (11:40)
[2017-04-29 18:21] VITALS: RESP 20
[2017-04-30 01:22] VITALS: BP 127/74; TEMP 98.1; O2SAT 96
[2017-04-30] MEDS: Albuterol 0.083% Inhal Sol (2.5 mg/3 mL) UD IH SCH ×2 (02:38→07:47)
[2017-04-30 06:22] VITALS: PULSE 61
[2017-04-30] MEDS: Pantoprazole 40 mg EC Tab PO SCH (06:44)
[2017-04-30] MEDS: Sodium Chloride 0.9% 1,000 ML IV SCH (07:17)
[2017-04-30] MEDS: Arformoterol 15 mcg/2 ml Inh Sol IH SCH (07:47)
[2017-04-30] MEDS: Budesonide 0.5 mg/2 ml Inhal Susp UD IH SCH (07:47)
[2017-04-30] MEDS ORDERED: MethylPREDNISolone 40 mg Vial IVP SCH (10:00)
--- NOTE | 2017-04-30 10:49 | CP.PCM.DIS ---
<Vin Heath - Last Filed: 04/30/17 11:10> Provider - Provider Date of Admission: 04/27/17 08:42 Attending physician: Virgilio Roth MD Primary care physician: Lauren Damon DO Time Spent in preparation of Discharge (in minutes): 45 Diagnosis - Discharge Diagnosis (1) Chest pain Status: Acute Priority: Medium (2) Acute exacerbation of COPD with asthma Status: Acute Priority: Medium (3) Coronary artery disease Status: Chronic Priority: Medium (4) Dyspnea Status: Acute Priority: Medium Hospital Course - Lab Results Lab Results: Most Recent Lab Values WBC 7.0 10^3/ul (4.5-11.0) 04/28/17 08:25 RBC 4.03 10^6/uL (3.5-6.1) 04/28/17 08:25 Hgb 13.5 g/dL (14.0-18.0) L 04/28/17 08:25 Hct 40.5 % (42.0-52.0) L 04/28/17 08:25 MCV 100.5 fl (80.0-105.0) 04/28/17 08:25 MCH 33.5 pg (25.0-35.0) 04/28/17 08:25 MCHC 33.3 g/dl (31.0-37.0) 04/28/17 08:25 RDW 14.0 % (11.5-14.5) 04/28/17 08:25 Plt Count 266 10^3/uL (120.0-450.0) 04/28/17 08:25 MPV 9.2 fl (7.0-11.0) 04/28/17 08:25 Gran % 74.4 % (50.0-68.0) H 04/26/17 11:35 Lymph % (Auto) 18.4 % (22.0-35.0) L 04/26/17 11:35 Collier % (Auto) 7.2 % (1.0-6.0) H 04/26/17 11:35 Eos % (Auto) 0.0 % (1.5-5.0) L 04/26/17 11:35 Baso % (Auto) 0.0 % (0.0-3.0) 04/26/17 11:35 Gran # 5.80 (1.4-6.5) 04/26/17 11:35 Lymph # 1.4 (1.2-3.4) 04/26/17 11:35 Collier # 0.6 (0.1-0.6) 04/26/17 11:35 Eos # 0.0 (0.0-0.7) 04/26/17 11:35 Baso # 0.00 K/mm3 (0.0-2.0) 04/26/17 11:35 PT 10.2 Seconds (9.9-11.8) 04/25/17 15:00 INR 0.94 (0.93-1.08) 04/25/17 15:00 APTT 22.8 Seconds (23.7-30.8) L 04/25/17 15:00 Sodium 140 mmol/L (132-148) 04/28/17 08:25 Potassium 4.1 mmol/L (3.6-5.0) 04/28/17 08:25 Chloride 100 mmol/L (98-107) 04/28/17 08:25 Carbon Dioxide 28 mmol/L (21-33) 04/28/17 08:25 Anion Gap 16 (10-20) 04/28/17 08:25 BUN 27 mg/dL (7-21) H 04/28/17 08:25 Creatinine 0.8 mg/dL (0.8-1.5) 04/28/17 08:25 Est GFR ( Amer) > 60 04/28/17 08:25 Est GFR (Non-Af Amer) > 60 04/28/17 08:25 Random Glucose 122 mg/dL (70-110) H 04/28/17 08:25 Hemoglobin A1c 5.7 % (4.2-6.5) 04/28/17 08:25 Calcium 9.5 mg/dL (8.4-10.5) 04/28/17 08:25 Magnesium 2.0 mg/dL (1.7-2.2) 04/25/17 15:00 Total Bilirubin 0.6 mg/dL (0.2-1.3) 04/26/17 11:35 AST 33 U/L (17-59) 04/26/17 11:35 ALT 35 U/L (7-56) 04/26/17 11:35 Alkaline Phosphatase 63 U/L (38-126) 04/26/17 11:35 Lactate Dehydrogenase 433 U/L (333-699) 04/25/17 15:00 Total Creatine Kinase 103 U/L (35-230) 04/25/17 15:00 Troponin I < 0.01 ng/mL 04/26/17 11:35 Total Protein 7.4 g/dL (5.8-8.3) 04/26/17 11:35 Albumin 4.6 g/dL (3.0-4.8) 04/26/17 11:35 Globulin 2.9 gm/dL 04/26/17 11:35 Albumin/Globulin Ratio 1.6 (1.1-1.8) 04/26/17 11:35 - Hospital Course Hospital Course: Patient is a 62 year old male with a past medical history of CAD with VA x4 s/p stents x4 and CABG (triple bypass) in 2005, COPD, HTN, who was admitted for evaluation of chest pain and shortness of breath. With the use of physical examinations, lab work, and imaging the patient was diagnosed with and treated for COPD exaceration and acute coronary syndrome was ruled out. Patient was treated with antihypertensive medications, nebulizer treatments, steroids, amongst other empiric/therapeutic medications. During their hospital stay the patient was seen by cardiology, Dr. Cunningham, whose recommendations were appreciated. During their hospital stay the patient underwent a chest xray and myocardial stress test which were reviewed, appreciated, and utilized in the management of the patients clinical course. The stress revealed a small reversible anteroseptal defect suspicious of ischemia. The patient was scheduled for cardiac catherization twice and refused both times. Extensive education was provided on the risks and benefits of receiving the appropriate catherization. Patient desired to leave against medical advice but refused to sign the AMA papers. Patient was educated on the risks and benefits of leaving at this time without being medically cleared. Patient both understands and appreciates that leaving against medical advice can increase his risk of both morbidity and mortality. Patient eloped without signing appropriate against medical advice document. This is a brief summary of the patients hospital course. Please see patient chart for full details. Discharge Exam - Head Exam Head Exam: ATRAUMATIC, NORMAL INSPECTION, NORMOCEPHALIC - Additional Findings Additional findings: - Head Exam Head Exam: ATRAUMATIC, NORMAL INSPECTION, NORMOCEPHALIC - Additional Findings Additional findings: - Head Exam Head Exam: ATRAUMATIC, NORMOCEPHALIC - Additional Findings Additional findings: - Constitutional Appears: No Acute Distress - Head Exam Head Exam: ATRAUMATIC, NORMOCEPHALIC - Eye Exam Eye Exam: EOMI, PERRL - ENT Exam ENT Exam: Mucous Membranes Moist - Respiratory Exam Respiratory Exam: Clear to Auscultation Bilateral. absent: Rales, Rhonchi, Wheezes - Cardiovascular Exam Cardiovascular Exam: REGULAR RHYTHM, RRR, +S1, +S2 - GI/Abdominal Exam GI & Abdominal Exam: Normal Bowel Sounds, Soft. absent: Tenderness - Extremities Exam Extremities exam: Negative for: calf tenderness, pedal edema - Neurological Exam Neurological exam: Patient is awake, alert, responds to verbal stimuli, answers questions appropriately, follows commands, and moves extremities past midline - Psychiatric Exam Psychiatric exam: Normal Affect, Normal Mood Discharge Plan - Follow Up Plan Condition: STABLE Disposition: AGAINST MEDICAL ADVICE Referrals: Lauren Damon DO [Primary Care Provider] - <Virgilio Roth - Last Filed: 04/30/17 18:35> Provider - Provider Date of Admission: 04/27/17 08:42 Attending physician: Virgilio Roth MD Primary care physician: Lauren Damon DO Hospital Course - Lab Results Lab Results: Most Recent Lab Values WBC 7.0 10^3/ul (4.5-11.0) 04/28/17 08:25 RBC 4.03 10^6/uL (3.5-6.1) 04/28/17 08:25 Hgb 13.5 g/dL (14.0-18.0) L 04/28/17 08:25 Hct 40.5 % (42.0-52.0) L 04/28/17 08:25 MCV 100.5 fl (80.0-105.0) 04/28/17 08:25 MCH 33.5 pg (25.0-35.0) 04/28/17 08:25 MCHC 33.3 g/dl (31.0-37.0) 04/28/17 08:25 RDW 14.0 % (11.5-14.5) 04/28/17 08:25 Plt Count 266 10^3/uL (120.0-450.0) 04/28/17 08:25 MPV 9.2 fl (7.0-11.0) 04/28/17 08:25 Gran % 74.4 % (50.0-68.0) H 04/26/17 11:35 Lymph % (Auto) 18.4 % (22.0-35.0) L 04/26/17 11:35 Collier % (Auto) 7.2 % (1.0-6.0) H 04/26/17 11:35 Eos % (Auto) 0.0 % (1.5-5.0) L 04/26/17 11:35 Baso % (Auto) 0.0 % (0.0-3.0) 04/26/17 11:35 Gran # 5.80 (1.4-6.5) 04/26/17 11:35 Lymph # 1.4 (1.2-3.4) 04/26/17 11:35 Collier # 0.6 (0.1-0.6) 04/26/17 11:35 Eos # 0.0 (0.0-0.7) 04/26/17 11:35 Baso # 0.00 K/mm3 (0.0-2.0) 04/26/17 11:35 PT 10.2 Seconds (9.9-11.8) 04/25/17 15:00 INR 0.94 (0.93-1.08) 04/25/17 15:00 APTT 22.8 Seconds (23.7-30.8) L 04/25/17 15:00 Sodium 140 mmol/L (132-148) 04/28/17 08:25 Potassium 4.1 mmol/L (3.6-5.0) 04/28/17 08:25 Chloride 100 mmol/L (98-107) 04/28/17 08:25 Carbon Dioxide 28 mmol/L (21-33) 04/28/17 08:25 Anion Gap 16 (10-20) 04/28/17 08:25 BUN 27 mg/dL (7-21) H 04/28/17 08:25 Creatinine 0.8 mg/dL (0.8-1.5) 04/28/17 08:25 Est GFR ( Amer) > 60 04/28/17 08:25 Est GFR (Non-Af Amer) > 60 04/28/17 08:25 Random Glucose 122 mg/dL (70-110) H 04/28/17 08:25 Hemoglobin A1c 5.7 % (4.2-6.5) 04/28/17 08:25 Calcium 9.5 mg/dL (8.4-10.5) 04/28/17 08:25 Magnesium 2.0 mg/dL (1.7-2.2) 04/25/17 15:00 Total Bilirubin 0.6 mg/dL (0.2-1.3) 04/26/17 11:35 AST 33 U/L (17-59) 04/26/17 11:35 ALT 35 U/L (7-56) 04/26/17 11:35 Alkaline Phosphatase 63 U/L (38-126) 04/26/17 11:35 Lactate Dehydrogenase 433 U/L (333-699) 04/25/17 15:00 Total Creatine Kinase 103 U/L (35-230) 04/25/17 15:00 Troponin I < 0.01 ng/mL 04/26/17 11:35 Total Protein 7.4 g/dL (5.8-8.3) 04/26/17 11:35 Albumin 4.6 g/dL (3.0-4.8) 04/26/17 11:35 Globulin 2.9 gm/dL 04/26/17 11:35 Albumin/Globulin Ratio 1.6 (1.1-1.8) 04/26/17 11:35 Attending/Attestation - Attestation I have personally seen and examined this patient.: Yes I have fully participated in the care of the patient.: Yes I have reviewed all pertinent clinical information, including history, physical exam and plan: Yes Notes (Text): I have seen and examined the patient at bedside. Agree with the above note with the following additions/ exceptions: Briefly this is 62 year old male with history of CAD, VA s/p stents x4, CABG (triple bypass) in 2006, COPD, HTN, who presents complaining of CP and SOB. Stress test showed anteroseptal defect shows partially reversible ischemia. He was scheduled for cardiac cath yesterday and again today however refused to go. Recent echo reveals EF of 50%. Discussed with resource engineer who advised that patient should follow up with outpatient resource engineer. Patient decided to leave AMA. He was given a copy of stress test result however patient refused to take a copy and also refused to sign AMA papers. It was strongly advised to the patient that he should follow up with resource engineer for cardiac cath. Patient is breathing well and denies any dyspnea. Continue brovana, steroid taper and singulair. Tobacco cessation counselling provided. Upon discharge the patient will follow up with PMD Dr. Damon and Dr. Garcia at [facility]. Dr Virgilio Roth
== END 2017-04-30 10:05 | disposition left against medical advice (07) | DRG 88 ==
LOC: ED 13:45 → ERH 16:09 → 2RNO 17:53 → OBSVTOIN 04-27 08:42
PROVIDERS: ADMIT Internal Medicine; ATTEND Hospitalist
PROC: 3E0F7GC Introduction of Other Therapeutic Substance into Respiratory Tract, Via Natural or Artificial Opening (ICD-10-PCS; principal; 2017-04-25)
DX: J44.1 Chronic obstructive pulmonary disease with (acute) exacerbation (principal); I10 Essential (primary) hypertension; I25.10 Atherosclerotic heart disease of native coronary artery without angina pectoris; F17.210 Nicotine dependence, cigarettes, uncomplicated; F10.10 Alcohol abuse, uncomplicated; K21.9 Gastro-esophageal reflux disease without esophagitis; Z91.19 Patient's noncompliance with other medical treatment and regimen; I25.2 Old myocardial infarction; Z79.02 Long term (current) use of antithrombotics/antiplatelets; Z79.82 Long term (current) use of aspirin; Z95.1 Presence of aortocoronary bypass graft; Z95.5 Presence of coronary angioplasty implant and graft

== ENCOUNTER 2017-05-09 13:30 | Observation (INO) | payer MEDICAID ==
[2017-05-09 13:46] VITALS: BMI 24.3
--- NOTE | 2017-05-09 13:57 | ED PDOC ---
Arrival/HPI <Paige Rodrigues - Last Filed: 05/09/17 16:37> <Brigid Kinsey - Last Filed: 05/09/17 16:54> - General Chief Complaint: Chest Pain Time Seen by Provider: 05/09/17 13:53 - History of Present Illness Narrative History of Present Illness (Text): 62 year old male with a past medical history of COPD, CABG, alcoholism, tobacco use, general non-compliance who presents with some chest tightness and shortness of breath. [place] felt some chest tightness and therefore took a sublingual nitroglycerin which did not improve his chest tightness but rather made him lightheaded, weak, and gave him a headache. [place], but given his worsening of symptoms he came to the ED for further evaluation and management. He reports still smoking, but denies drinking since February 20, 2017. 05/09/17 13:56 (Brigid Kinsey) Past Medical History - Provider Review Nursing Documentation Reviewed: Yes - Past History Past History: No Previous - Infectious Disease Hx of Infectious Diseases: None - Tetanus Immunization Tetanus Immunization: Unknown - Reproductive Currently : No - Cardiac Hx Cardiac Disorders: Yes ([place]) Hx Hypertension: Yes Other/Comment: CABG. BYPASS. 3 STENTS - Pulmonary Hx Respiratory Disorders: Yes Hx Bronchitis: Yes Hx Chronic Obstructive Pulmonary Disease (COPD): Yes Hx Tuberculosis: No - Neurological Hx Neurological Disorder: No (denies) - HEENT Hx HEENT Disorder: Yes Hx Cataracts: Yes (right eye) Hx Glaucoma: No - Renal Hx Renal Disorder: No - Endocrine/Metabolic Hx Endocrine Disorders: No - Hematological/Oncological Hx Blood Disorders: Yes (blood transfusion) Hx Anemia: Yes Hx Cancer: No - Integumentary Hx Dermatological Disorder: No - Musculoskeletal/Rheumatological Hx Musculoskeletal Disorders: Yes Hx Falls: Yes - Gastrointestinal Hx Gastrointestinal Disorders: Yes Hx Gall Bladder Disease: Yes (Gall stones removed) Hx Gastroesophageal Reflux: Yes - Genitourinary/Gynecological Hx Genitourinary Disorders: No (denies) - Psychiatric Hx Psychophysiologic Disorder: Yes Hx Anxiety: Yes Hx Substance Use: Yes (MARIJUANA,HEROINE ABUSE H/O) - Surgical History Hx Cardiac Catheterization: Yes Hx Coronary Stent: Yes (x3) Hx Open Heart Surgery: Yes - Anesthesia Hx Anesthesia: Yes Hx Anesthesia Reactions: No Hx Malignant Hyperthermia: No - Suicidal Assessment Feels Threatened In Home Enviroment: No <Brigid Kinsey - Last Filed: 05/09/17 16:54> Family/Social History - Physician Review Nursing Documentation Reviewed: Yes Family/Social History: Unknown Family HX Smoking Status: Current Some Days Smoker Hx Alcohol Use: Yes (LAST DRANK 3 WKS AGO.E&J. ETOH ABUSE) Hx Substance Use: Yes (MARIJUANA,HEROINE ABUSE H/O) Substance used: HEROIN, MARIJUANA Hx Substance Use Treatment: No <Brigid Kinsey - Last Filed: 05/09/17 16:54> Allergies/Home Meds <Paige Rodrigues - Last Filed: 05/09/17 16:37> <Brigid Kinsey - Last Filed: 05/09/17 16:54> Allergies/Adverse Reactions: Allergies shellfish derived Allergy (Verified 04/25/17 20:41) ANAPHYLAXIS Sulfa (Sulfonamide Antibiotics) Allergy (Verified 04/25/17 20:41) RASH Home Medications: Home Meds Medication Instructions Recorded Confirmed Albuterol HFA [Ventolin HFA 90 2 puff IH PRN PRN 02/21/17 04/25/17 mcg/actuation (8 g)] Aspirin [Adult Low Dose Aspirin EC] 81 mg PO DAILY 02/21/17 04/25/17 Carvedilol [Coreg] 3.125 mg PO BID 02/21/17 04/25/17 Fluticasone/Salmeterol 500/50 1 puff IH DAILY 02/21/17 04/25/17 [Advair Diskus 500/50] Isosorbide Mononitrate [Isosorbide 30 mg PO DAILY 02/21/17 04/25/17 Mononitrate ER] Montelukast Sodium [Singulair] 10 mg PO DAILY 02/21/17 04/25/17 Nitroglycerin [Nitrostat] 0.4 mg SL PRN PRN 02/21/17 04/25/17 Omeprazole 20 mg PO DAILY 02/21/17 04/25/17 Thiamine Mononitrate [Vitamin B-1] 100 mg PO DAILY 02/21/17 04/25/17 Ammonium Lactate [Deedee-Hydrolac] 1 appful TD DAILY 04/10/17 04/25/17 Betamethasone Dipropion Augmen 1 appful TD DAILY 04/10/17 04/25/17 [Diprolene AF 0.05%] Clopidogrel [Plavix] 75 mg PO DAILY 04/10/17 04/25/17 Folic Acid 1 mg PO DAILY 04/10/17 04/25/17 Diclofenac Sodium [Voltaren] 1 appful TOP PRN PRN 04/18/17 04/25/17 Review of Systems - Review of Systems Constitutional: Fatigue. absent: Fevers, Night Sweats Eyes: absent: Vision Changes, Photophobia, Eye Pain ENT: absent: Voice Changes, Rhinorrhea, Sinus Congestion Respiratory: SOB, Cough (dry), Wheezing Cardiovascular: Chest Pain, MEZA Gastrointestinal: absent: Abdominal Pain, Nausea, Vomiting Musculoskeletal: absent: Arthralgias, Back Pain, Neck Pain Skin: absent: Rash, Pruritis, Skin Lesions Neurological: Headache, Dizziness. absent: Focal Weakness, Gait Changes, Disequilibrium Endocrine: absent: Diaphoresis Hemo/Lymphatic: absent: Easy Bleeding, Easy Bruising Psychiatric: absent: Anxiety, Depression <Brigid Kinsey - Last Filed: 05/09/17 16:54> Physical Exam Temperature: Afebrile Blood Pressure: Normal Pulse: Regular Respiratory Rate: Normal Appearance: Positive for: Well-Appearing, Non-Toxic Pain Distress: Mild Mental Status: Positive for: Alert and Oriented X 3 - Systems Exam Head: Present: Atraumatic, Normocephalic Pupils: Present: PERRL Extroacular Muscles: Present: EOMI Conjunctiva: Present: Normal Mouth: Present: Moist Mucous Membranes Pharnyx: Present: Normal. No: ERYTHEMA, EXUDATE Neck: No: JVD Respiratory/Chest: Present: Wheezes (bilaterally) Cardiovascular: Present: Regular Rate and Rhythm, Normal S1, S2, Peripheal Pulses Present, Other (distant heart sounds) Abdomen: Present: Normal Bowel Sounds. No: Tenderness, Distention Back: Present: Normal Inspection. No: CVA Tenderness Upper Extremity: Present: Normal Inspection. No: Cyanosis, Edema Lower Extremity: Present: Normal Inspection. No: Edema, CALF TENDERNESS Neurological: Present: CN II-XII Intact, Speech Normal, Motor Func Grossly Intact Skin: Present: Warm, Dry, Normal Color Lymphatic: No: Cervical Adenopathy Psychiatric: Present: Alert, Oriented x 3, Normal Insight <Brigid Kinsey - Last Filed: 05/09/17 16:54> Vital Signs Temp Pulse Resp BP Pulse Ox 05/09/17 16:00 68 18 122/71 99 05/09/17 14:11 18 93 L 05/09/17 14:03 98.3 F 75 18 124/74 93 L 05/09/17 13:45 98.3 F 71 18 124/75 98 Medical Decision Making <Paige Rodrigues - Last Filed: 05/09/17 16:37> <Brigid Kinsey - Last Filed: 05/09/17 16:54> ED Course and Treatment: Patient is without wheezes after first duonebulized treatment, reports minimal to none chest tightness, and is speaking full sentences without any pauses. 05/09/17 14:48 EKG shows no interval changes compared to prior. 05/09/17 14:49 Portable Chest X-ray IMPRESSION: No acute cardiopulmonary is evident. Healing left rib fractures again evident as discussed above. CBC, CMP, and cardiac enzymes within normal limits. 05/09/17 15:23 Patient now complains of vague epigastric pain, not improved with Pepcid or Zofran. Case discussed with Dr. Ramirez to admit patient for observation for chest pain. 05/09/17 16:52 (Brigid Kinsey) - Lab Interpretations Lab Results: 05/09/17 14:35 05/09/17 14:35 Lab Results 05/09/17 14:35: Sodium 138, Potassium 4.9, Chloride 100, Carbon Dioxide 32, Anion Gap 11, BUN 30 H, Creatinine 0.8, Est GFR ( Amer) > 60, Est GFR ( Non-Af Amer) > 60, Random Glucose 85, Calcium 9.2, Total Bilirubin 0.5, AST 31, ALT 30, Alkaline Phosphatase 64, Lactate Dehydrogenase 434, Total Creatine Kinase 46, Troponin I < 0.01, NT-Pro-B Natriuret Pep 118, Total Protein 6.8, Albumin 4.2, Globulin 2.6, Albumin/Globulin Ratio 1.6 05/09/17 14:35: WBC 8.6 D, RBC 4.12, Hgb 13.9 L, Hct 41.0 L, MCV 99.5, MCH 33.7 , MCHC 33.9, RDW 14.2, Plt Count 242, MPV 9.2, Gran % 63.9, Lymph % (Auto) 27.4 , Hancock % (Auto) 7.7 H, Eos % (Auto) 0.9 L, Baso % (Auto) 0.1, Gran # 5.49, Lymph # 2.4, Hancock # 0.7 H, Eos # 0.1, Baso # 0.01 - RAD Interpretation Radiology Orders: 05/09/17 14:23 CXR [CHEST PORTABLE] [RAD] Stat - Medication Orders Current Medication Orders: Discontinued Medications Albuterol/Ipratropium (Duoneb 3 Mg/0.5 Mg (3 Ml) Ud) 3 ml IH Q15M MAHSA Stop: 05/09/17 14:46 Last Admin: 05/09/17 14:24 Dose: 3 ml Famotidine (Pepcid) 20 mg IVP STAT STA Stop: 05/09/17 15:52 Last Admin: 05/09/17 16:13 Dose: 20 mg IVP Administration Document 05/09/17 16:13 MS (Rec: 05/09/17 16:13 [email or web address] Charges for Administration # of IVP Administrations 1 Ondansetron HCl (Zofran Inj) 4 mg IVP STAT STA Stop: 05/09/17 15:51 Last Admin: 05/09/17 16:13 Dose: 4 mg IVP Administration Document 05/09/17 16:13 MS (Rec: 05/09/17 16:13 MS [email or web address] Charges for Administration # of IVP Administrations 1 Disposition/Present on Arrival - Disposition Have Diagnosis and Disposition been Completed?: Yes Disposition Time: 16:37 Patient Plan: Admission, Observation <Paige Rodrigues - Last Filed: 05/09/17 16:37> - Present on Arrival Any Indicators Present on Arrival: No History of DVT/PE: No History of Uncontrolled Diabetes: No Urinary Catheter: No History Surgical Site Infection Following: None - Disposition Have Diagnosis and Disposition been Completed?: Yes <Brigid Kinsey - Last Filed: 05/09/17 16:54> - Disposition Diagnosis: Chest pain Disposition: HOSPITALIZED Condition: FAIR Forms: [email or web address] ([place])
[2017-05-09] MEDS ORDERED: Albuterol-Ipratrop 3 mg / 0.5 (3 ml) UD ONE (14:20)
[2017-05-09] MEDS: Albuterol-Ipratrop 3 mg / 0.5 (3 ml) UD IH SCH ×2 (14:24→19:35)
[2017-05-09 15:02] LABS: BASO # 0.01 K/mm3 (0.0-2.0); BASO % 0.1 % (0.0-3.0); EOS # 0.1 (0.0-0.7); EOS % 0.9 % (1.5-5.0); GRAN # 5.49 (1.4-6.5); GRAN % 63.9 % (50.0-68.0); LYMPH # 2.4 (1.2-3.4); LYMPH % 27.4 % (22.0-35.0); MEAN CELL VOLUME 99.5 fl (80.0-105.0); MEAN CORPUSCULAR HEMOGLOBIN 33.7 pg (25.0-35.0); MEAN CORPUSCULAR HGB CONC 33.9 g/dl (31.0-37.0); MEAN PLATELET VOLUME 9.2 fl (7.0-11.0); MONO # 0.7 (0.1-0.6); MONO % 7.7 % (1.0-6.0); RED CELL DISTRIBUTION WIDTH 14.2 % (11.5-14.5); WHITE BLOOD COUNT 8.6 10^3/ul (4.5-11.0)
[2017-05-09 15:12] LABS: ALB/GLOB RATIO 1.6 (1.1-1.8); ALKALINE PHOSPHATASE 64 U/L (38-126); ALT/SGPT 30 U/L (7-56); AST/SGOT 31 U/L (17-59); BILIRUBIN,TOTAL 0.5 mg/dL (0.2-1.3); BLOOD UREA NITROGEN 30 mg/dL (7-21); CALCIUM 9.2 mg/dL (8.4-10.5); CARBON DIOXIDE 32 mmol/L (21-33); CHLORIDE 100 mmol/L (98-107); GFR AFRICAN-AMERICAN > 60; GLUCOSE,RANDOM 85 mg/dL (70-110); POTASSIUM 4.9 mmol/L (3.6-5.0); SODIUM 138 mmol/L (132-148); TOTAL PROTEIN 6.8 g/dL (5.8-8.3)
--- NOTE | 2017-05-09 15:20 | RAD ---
HISTORY: chest tightness COMPARISON: Portable chest 04/25/2017. FINDINGS: LUNGS: No active pulmonary disease. PLEURA: No significant pleural effusion identified, no pneumothorax apparent. CARDIOVASCULAR: Normal. OSSEOUS STRUCTURES: Healing left 8th 9th and 10th rib fractures again evident. Sternotomy wires again evident as previously seen. VISUALIZED UPPER ABDOMEN: Normal. OTHER FINDINGS: None. IMPRESSION: No acute cardiopulmonary is evident. Healing left rib fractures again evident as discussed above.
[2017-05-09 15:33] LABS: TROPONIN I < 0.01 ng/mL
--- NOTE | 2017-05-09 17:31 | CP.PCM.HP ---
<Caleb Ji - Last Filed: 05/09/17 19:46> History of Present Illness - History of Present Illness History of Present Illness: This is a 62 year old male with a past medical history of COPD, CABG, GA (s/p 4stents), alcohol abuse (last drink February 20, 2017), smoker(last cigarette May 08, 2017) who come to the emergency department complaining of pleuritic chest pain that radiates sometimes to the sternal area and that the back. The [place] the [place]. The patient took a Nitroglycerin pill that helped with the pain however shortly after the patient reports diaphoresis, nausea, and blurry vision. The patient denies any headaches, sore throat, constipation, diarrhea, dizziness, or any other complaints. PMD: Dr. Damon PMH: CAD w/ stents x4, COPD, EtOH abuse, HTN, depression, peripheral neuropathy , cholelithiasis PSH: right carotid endartectomy, CABG (triple bypass) 2005, cholecystectomy Soc hx: daily smoker 4-5 cig daily; hx of alcohol abuse, last drink 02/2017; pmh of marijuana and heroin abuse Allergies: sulfa drugs & shellfish Meds: refer to [facility] Family hx: DM Present on Admission - Present on Admission Any Indicators Present on Admission: No Review of Systems - Constitutional Constitutional: As Per HPI - EENT Eyes: As Per HPI Ears: As Per HPI Nose/Mouth/Throat: As Per HPI - Cardiovascular Cardiovascular: As Per HPI - Respiratory Respiratory: As Per HPI - Gastrointestinal Gastrointestinal: As Per HPI - Genitourinary Genitourinary: As Per HPI - Reproductive: Male Reproductive:Male: As Per HPI - Musculoskeletal Musculoskeletal: As Per HPI - Integumentary Integumentary: As Per HPI - Neurological Neurological: As Per HPI - Psychiatric Psychiatric: As Per HPI - Endocrine Endocrine: As Per HPI Past Patient History - Infectious Disease Hx of Infectious Diseases: None - Tetanus Immunizations Tetanus Immunization: Unknown - Past Medical History & Family History Past Medical History?: Yes - Past Social History Smoking Status: Current Some Days Smoker - CARDIAC Hx Cardiac Disorders: Yes (GA) Hx Hypertension: Yes Other/Comment: CABG. BYPASS. 3 STENTS - PULMONARY Hx Respiratory Disorders: Yes Hx Bronchitis: Yes Hx Chronic Obstructive Pulmonary Disease (COPD): Yes Hx Tuberculosis: No - NEUROLOGICAL Hx Neurological Disorder: No (denies) - HEENT Hx HEENT Problems: Yes Hx Cataracts: Yes (right eye) Hx Glaucoma: No - RENAL Hx Chronic Kidney Disease: No - ENDOCRINE/METABOLIC Hx Endocrine Disorders: No - HEMATOLOGICAL/ONCOLOGICAL Hx Blood Disorders: Yes (blood transfusion) Hx Anemia: Yes Hx Cancer: No - INTEGUMENTARY Hx Dermatological Problems: No - MUSCULOSKELETAL/RHEUMATOLOGICAL Hx Musculoskeletal Disorders: Yes Hx Falls: Yes - GASTROINTESTINAL Hx Gastrointestinal Disorders: Yes Hx Gall Bladder Disease: Yes (Gall stones removed) Hx Gastroesophageal Reflux: Yes - GENITOURINARY/GYNECOLOGICAL Hx Genitourinary Disorders: No (denies) - PSYCHIATRIC Hx Psychophysiologic Disorder: Yes Hx Anxiety: Yes Hx Substance Use: Yes (MARIJUANA,HEROINE ABUSE H/O) - SURGICAL HISTORY Hx Cardiac Catheterization: Yes Hx Coronary Stent: Yes (x3) Hx Open Heart Surgery: Yes - ANESTHESIA Hx Anesthesia: Yes Hx Anesthesia Reactions: No Hx Malignant Hyperthermia: No Meds Allergies/Adverse Reactions: Allergies Allergy/AdvReac Type Severity Reaction Status Date / Time shellfish derived Allergy ANAPHYLAXIS Verified 04/25/17 20:41 Sulfa (Sulfonamide Allergy RASH Verified 04/25/17 20:41 Antibiotics) Physical Exam - Head Exam Head Exam: ATRAUMATIC, NORMAL INSPECTION, NORMOCEPHALIC - Eye Exam Eye Exam: EOMI, Normal appearance, PERRL. absent: Periorbital tenderness Pupil Exam: NORMAL ACCOMODATION, PERRL. absent: Irregular, Miosis, Unequal - ENT Exam ENT Exam: Mucous Membranes Moist, Normal Oropharynx. absent: TM's Normal Bilaterally - Neck Exam Neck exam: Positive for: Full Rom, Normal Inspection. Negative for: Lymphadenopathy, Meningismus, Thyromegaly - Respiratory Exam Respiratory Exam: Clear to Auscultation Bilateral, NORMAL BREATHING PATTERN. absent: Chest Wall Tenderness, Prolonged Expiratory Phase, Respiratory Distress - Cardiovascular Exam Cardiovascular Exam: REGULAR RHYTHM, +S1, +S2. absent: Gallop, Rubs - GI/Abdominal Exam GI & Abdominal Exam: Normal Bowel Sounds, Soft. absent: Hypoactive Bowel Sounds , Organomegaly, Tenderness - Extremities Exam Extremities exam: Negative for: joint swelling, pedal edema, tenderness - Back Exam Back exam: NORMAL INSPECTION. absent: CVA tenderness (L), CVA tenderness (R), paraspinal tenderness - Neurological Exam Neurological exam: Alert, CN II-XII Intact, Oriented x3, Reflexes Normal - Psychiatric Exam Psychiatric exam: Normal Affect, Normal Mood - Skin Skin Exam: Dry, Intact Results - Vital Signs Recent Vital Signs: Last Vital Signs Temp 98.3 F 05/09/17 14:03 Pulse 68 05/09/17 16:00 Resp 18 05/09/17 16:00 BP 122/71 05/09/17 16:00 Pulse Ox 99 05/09/17 16:00 - Labs Result Diagrams: 05/09/17 14:35 05/09/17 14:35 Assessment & Plan - Assessment and Plan (Free Text) Assessment: 62 yo M with PMH of CAD with MIx4 s/p stents x4 and CABG (triple bypass) in 2005 , COPD, HTN, who presents complaining of chest pain. Patient was admitted for observation and r/o ACS. Plan: 1. Chest pain r/o ACS (musculoskeletal vs. pleuritic vs. cardiac) -Patient on physical exam has reproducible pain upon palpation and when taking deep breathes. -EKG in the E.D. showed no changes from the prior ekg done. -CXR was negative. -Last echo done (03/07) showed an EF 50%. -Last stress test done (05/07) was positive for chest pain and negative for ischemia and arrhythmia. -Troponins (-)x1. F/u with remaining troponins. 2. COPD -Currently 02 saturation 99% on room air. -Continue home med's. Will monitor closely. 3. Hypertension -continue home meds. 4.Smoking cessation -Patient admits to smoking as recent as yesterday. -Counseled patient on cessation. -Patient reports no need for Nicotine patch at this time. Will monitor closely. GI ppx -Protonix DVT -Lovenox <Ang Ramirezantha - Last Filed: 05/10/17 15:10> Results - Vital Signs Recent Vital Signs: Last Vital Signs Temp 98.6 F 05/10/17 11:49 Pulse 69 05/10/17 11:49 Resp 16 05/10/17 11:49 BP 116/57 L 05/10/17 11:49 Pulse Ox 99 05/10/17 06:00 - Labs Result Diagrams: 05/10/17 06:24 05/10/17 06:24 Labs: Laboratory Results - last 24 hr 05/09/17 05/10/17 05/10/17 21:00 06:24 06:24 WBC 6.4 D RBC 3.73 Hgb 12.5 L Hct 37.3 L MCV 100.0 MCH 33.5 MCHC 33.5 RDW 14.3 Plt Count 184 MPV 9.1 Gran % 63.0 Lymph % (Auto) 25.7 Wilkinson % (Auto) 9.8 H Eos % (Auto) 1.3 L Baso % (Auto) 0.2 Gran # 4.01 Lymph # 1.6 Wilkinson # 0.6 Eos # 0.1 Baso # 0.01 Sodium 137 Potassium 4.4 Chloride 102 Carbon Dioxide 29 Anion Gap 10 BUN 25 H Creatinine 0.9 Est GFR ( Amer) > 60 Est GFR (Non-Af Amer) > 60 Random Glucose 87 Calcium 8.8 Total Bilirubin 0.5 AST 23 ALT 31 Alkaline Phosphatase 61 Lactate Dehydrogenase 338 307 L Total Creatine Kinase 36 36 Troponin I < 0.01 < 0.01 Total Protein 6.1 Albumin 3.7 Globulin 2.4 Albumin/Globulin Ratio 1.5 Triglycerides 116 Cholesterol 171 LDL Cholesterol Direct 89 HDL Cholesterol 58 Attending/Attestation - Attestation I have personally seen and examined this patient.: Yes I have fully participated in the care of the patient.: Yes I have reviewed all pertinent clinical information: Yes Notes (Text): 05/10/17 15:05 attending note; Patient seen and examined with resident in ER. Patient is a 62-year-old male well kniown to our service with PMH of CAD with MIx4 s/p stents x4 and CABG (triple bypass) in 2005, COPD, HTN, who presents complaining of chest pain. the patient recently signed AGAINST MEDICAL ADVICE after refusing cardiac cath. Currently admitted with chest pain. EKG shows ST T changes in the lateral leads/ same as before. Cardiac enzyme negative. Admitted to telemetry. Follow-up cardiac enzymes 3. Cardiology evaluation requested. Upon discharge the patient will follow-up with PMD Dr. Damon. Diagnosis; Chest pain Positive stress test Active smoker HTn alcohol use
[2017-05-09] MEDS ORDERED: Albuterol HFA 90 mcg/actuation (8 g) IH PRN (17:57)
[2017-05-09] MEDS ORDERED: Budesonide 0.5 mg/2 ml Inhal Susp UD IH SCH (20:00)
[2017-05-09] MEDS ORDERED: Albuterol 0.083% Inhal Sol (2.5 mg/3 mL) UD IH SCH (20:00)
[2017-05-09] MEDS ORDERED: Arformoterol 15 mcg/2 ml Inh Sol IH SCH (20:00)
--- NOTE | 2017-05-09 20:42 | CARD ---
APPROVED REPORT EKG Measurement Heart [id number] <Conclusion> Normal sinus rhythm Early repolarization Normal ECG
[2017-05-09 21:30] LABS: TROPONIN I < 0.01 ng/mL
[2017-05-10 06:07] VITALS: O2SAT 99
[2017-05-10 06:35] LABS: BASO # 0.01 K/mm3 (0.0-2.0); BASO % 0.2 % (0.0-3.0); EOS # 0.1 (0.0-0.7); EOS % 1.3 % (1.5-5.0); GRAN # 4.01 (1.4-6.5); HEMATOCRIT 37.3 % (42.0-52.0); LYMPH # 1.6 (1.2-3.4); LYMPH % 25.7 % (22.0-35.0); MEAN CORPUSCULAR HEMOGLOBIN 33.5 pg (25.0-35.0); MEAN CORPUSCULAR HGB CONC 33.5 g/dl (31.0-37.0); MEAN PLATELET VOLUME 9.1 fl (7.0-11.0); MONO # 0.6 (0.1-0.6); MONO % 9.8 % (1.0-6.0); RED CELL DISTRIBUTION WIDTH 14.3 % (11.5-14.5); WHITE BLOOD COUNT 6.4 10^3/ul (4.5-11.0)
[2017-05-10 06:51] LABS: ALB/GLOB RATIO 1.5 (1.1-1.8); ALKALINE PHOSPHATASE 61 U/L (38-126); ALT/SGPT 31 U/L (7-56); AST/SGOT 23 U/L (17-59); BILIRUBIN,TOTAL 0.5 mg/dL (0.2-1.3); BLOOD UREA NITROGEN 25 mg/dL (7-21); CALCIUM 8.8 mg/dL (8.4-10.5); CARBON DIOXIDE 29 mmol/L (21-33); CHLORIDE 102 mmol/L (98-107); CHOLESTEROL 171 mg/dL (130-200); GFR AFRICAN-AMERICAN > 60; GLUCOSE,RANDOM 87 mg/dL (70-110); POTASSIUM 4.4 mmol/L (3.6-5.0); SODIUM 137 mmol/L (132-148); TOTAL PROTEIN 6.1 g/dL (5.8-8.3)
[2017-05-10 06:59] LABS: TROPONIN I < 0.01 ng/mL
[2017-05-10] MEDS ORDERED: Arformoterol 15 mcg/2 ml Inh Sol IH SCH (07:37)
[2017-05-10] MEDS ORDERED: Budesonide 0.5 mg/2 ml Inhal Susp UD IH SCH (07:38)
[2017-05-10] MEDS: Albuterol 0.083% Inhal Sol (2.5 mg/3 mL) UD IH SCH ×2 (07:45→13:16)
[2017-05-10] MEDS ORDERED: Non Formulary Medication (Omeprazole [Omeprazole] 20 MG) PO SCH (10:00)
--- NOTE | 2017-05-10 11:17 | CP.PCM.DIS ---
<Vin Heath - Last Filed: 05/10/17 14:58> Provider - Provider Date of Admission: 05/09/17 16:38 Attending physician: Capo Ramirez MD Primary care physician: Lauren Damon DO Time Spent in preparation of Discharge (in minutes): 45 Diagnosis - Discharge Diagnosis (1) Chest pain Status: Acute Priority: Medium (2) COPD (chronic obstructive pulmonary disease) Status: Acute Priority: Medium (3) Coronary artery disease Status: Chronic Priority: Medium (4) Dyspnea Status: Acute Priority: Medium Hospital Course - Lab Results Lab Results: Most Recent Lab Values WBC 6.4 10^3/ul (4.5-11.0) D 05/10/17 06:24 RBC 3.73 10^6/uL (3.5-6.1) 05/10/17 06:24 Hgb 12.5 g/dL (14.0-18.0) L 05/10/17 06:24 Hct 37.3 % (42.0-52.0) L 05/10/17 06:24 MCV 100.0 fl (80.0-105.0) 05/10/17 06:24 MCH 33.5 pg (25.0-35.0) 05/10/17 06:24 MCHC 33.5 g/dl (31.0-37.0) 05/10/17 06:24 RDW 14.3 % (11.5-14.5) 05/10/17 06:24 Plt Count 184 10^3/uL (120.0-450.0) 05/10/17 06:24 MPV 9.1 fl (7.0-11.0) 05/10/17 06:24 Gran % 63.0 % (50.0-68.0) 05/10/17 06:24 Lymph % (Auto) 25.7 % (22.0-35.0) 05/10/17 06:24 Nye % (Auto) 9.8 % (1.0-6.0) H 05/10/17 06:24 Eos % (Auto) 1.3 % (1.5-5.0) L 05/10/17 06:24 Baso % (Auto) 0.2 % (0.0-3.0) 05/10/17 06:24 Gran # 4.01 (1.4-6.5) 05/10/17 06:24 Lymph # 1.6 (1.2-3.4) 05/10/17 06:24 Nye # 0.6 (0.1-0.6) 05/10/17 06:24 Eos # 0.1 (0.0-0.7) 05/10/17 06:24 Baso # 0.01 K/mm3 (0.0-2.0) 05/10/17 06:24 Sodium 137 mmol/L (132-148) 05/10/17 06:24 Potassium 4.4 mmol/L (3.6-5.0) 05/10/17 06:24 Chloride 102 mmol/L (98-107) 05/10/17 06:24 Carbon Dioxide 29 mmol/L (21-33) 05/10/17 06:24 Anion Gap 10 (-20) 05/10/17 06:24 BUN 25 mg/dL (7-21) H 05/10/17 06:24 Creatinine 0.9 mg/dL (0.8-1.5) 05/10/17 06:24 Est GFR ( Amer) > 60 05/10/17 06:24 Est GFR (Non-Af Amer) > 60 05/10/17 06:24 Random Glucose 87 mg/dL (70-110) 05/10/17 06:24 Calcium 8.8 mg/dL (8.4-10.5) 05/10/17 06:24 Total Bilirubin 0.5 mg/dL (0.2-1.3) 05/10/17 06:24 AST 23 U/L (17-59) 05/10/17 06:24 ALT 31 U/L (7-56) 05/10/17 06:24 Alkaline Phosphatase 61 U/L (38-126) 05/10/17 06:24 Lactate Dehydrogenase 307 U/L (333-699) L 05/10/17 06:24 Total Creatine Kinase 36 U/L (35-230) 05/10/17 06:24 Troponin I < 0.01 ng/mL 05/10/17 06:24 NT-Pro-B Natriuret Pep 118 pg/mL (0-450) 05/09/17 14:35 Total Protein 6.1 g/dL (5.8-8.3) 05/10/17 06:24 Albumin 3.7 g/dL (3.0-4.8) 05/10/17 06:24 Globulin 2.4 gm/dL 05/10/17 06:24 Albumin/Globulin Ratio 1.5 (1.1-1.8) 05/10/17 06:24 Triglycerides 116 mg/dL (35-160) 05/10/17 06:24 Cholesterol 171 mg/dL (130-200) 05/10/17 06:24 LDL Cholesterol Direct 89 mg/dL (0-129) 05/10/17 06:24 HDL Cholesterol 58 mg/dL (29-60) 05/10/17 06:24 - Hospital Course Hospital Course: Patient is a 62 year old male with a past medical history of CAD with GA x4 s/p stents x4 and CABG (triple bypass) in 2005, COPD, HTN, who was admitted for evaluation of chest pain and shortness of breath. With the use of physical examinations, lab work, and imaging the patient was diagnosed with and treated for COPD exaceration and acute coronary syndrome was ruled out. Patient was treated with antihypertensive medications, nebulizer treatments, steroids, amongst other empiric/therapeutic medications. During their hospital stay the patient was seen by cardiology, whose recommendations were appreciated. During their hospital stay the patient underwent a chest xray and which was reviewed, appreciated, and utilized in the management of the patients clinical course. Patient's previous myocardial stress test revealed a small reversible anteroseptal defect suspicious of ischemia. Patient has elected to follow up outpatient with Dr. Alejandra to schedule a cardiac stress test. Patient states that he has his a supply of his home medications. At this time the patient is medically stable for discharge. Patient understands and appreciates discharge plan. Patient instructed to follow up with primary care physicians and referrals within three to five days from discharge. Furthermore, the patient is instructed to take medications as prescribed and to return to emergency room for evaluation of intractable headache, fever, chills, dizziness, chest pain, shortness of breath, abdominal pain, nausea, vomiting, diarrhea, constipation, and urinary symptoms. This is a brief summary of the patients hospital course. Please see patient chart for full details. Discharge Exam - Head Exam Head Exam: ATRAUMATIC, NORMAL INSPECTION, NORMOCEPHALIC - Additional Findings Additional findings: - Head Exam Head Exam: ATRAUMATIC, NORMAL INSPECTION, NORMOCEPHALIC - Eye Exam Eye Exam: EOMI, Normal appearance, PERRL. absent: Periorbital tenderness Pupil Exam: NORMAL ACCOMODATION, PERRL. absent: Irregular, Miosis, Unequal - ENT Exam ENT Exam: Mucous Membranes Moist, Normal Oropharynx. absent: TM's Normal Bilaterally - Neck Exam Neck exam: Positive for: Full Rom, Normal Inspection. Negative for: Lymphadenopathy, Meningismus, Thyromegaly - Respiratory Exam Respiratory Exam: mild bibasilar cracklesl, NORMAL BREATHING PATTERN. absent: Chest Wall Tenderness, Prolonged Expiratory Phase, Respiratory Distress - Cardiovascular Exam Cardiovascular Exam: REGULAR RHYTHM, +S1, +S2. absent: Gallop, Rubs - GI/Abdominal Exam GI & Abdominal Exam: Normal Bowel Sounds, Soft. absent: Hypoactive Bowel Sounds , Organomegaly, Tenderness - Extremities Exam Extremities exam: Negative for: joint swelling, pedal edema, tenderness - Back Exam Back exam: NORMAL INSPECTION. absent: CVA tenderness (L), CVA tenderness (R), paraspinal tenderness - Neurological Exam Neurological exam: Alert, CN II-XII Intact, Oriented x3, Reflexes Normal - Psychiatric Exam Psychiatric exam: Normal Affect, Normal Mood - Skin Skin Exam: Dry, Intact Discharge Plan - Discharge Medications Prescriptions: Atorvastatin [Lipitor] 40 mg PO DIN 14 Days tab Methylprednisolone [Medrol Dose Pack (21 tabs)] 4 mg PO DAILY #21 mg - Follow Up Plan Condition: FAIR Disposition: HOME/ ROUTINE Patient education suggested?: Yes Instructions: Chest Pain (GEN) Additional Instructions: Patient Instructions: Take medications as prescribed. Follow up with PMD and referrals within three to five days from discharge. Smoking cessation is strongly advised Return to the emergency room for evaluation of intractable headache, fever, chills, dizziness, chest pain, shortness of breath, abdominal pain, nausea, vomiting, diarrhea, constipation, and urinary symptoms. Referrals: Lauren Damon DO [Primary Care Provider] - Follow up with primary Lauro Alejandra MD [Staff Provider] - <Capo Ramirez - Last Filed: 05/10/17 17:59> Provider - Provider Date of Admission: 05/09/17 16:38 Attending physician: Capo Ramirez MD Primary care physician: Lauren Damon DO Hospital Course - Lab Results Lab Results: Most Recent Lab Values WBC 6.4 10^3/ul (4.5-11.0) D 05/10/17 06:24 RBC 3.73 10^6/uL (3.5-6.1) 05/10/17 06:24 Hgb 12.5 g/dL (14.0-18.0) L 05/10/17 06:24 Hct 37.3 % (42.0-52.0) L 05/10/17 06:24 MCV 100.0 fl (80.0-105.0) 05/10/17 06:24 MCH 33.5 pg (25.0-35.0) 05/10/17 06:24 MCHC 33.5 g/dl (31.0-37.0) 05/10/17 06:24 RDW 14.3 % (11.5-14.5) 05/10/17 06:24 Plt Count 184 10^3/uL (120.0-450.0) 05/10/17 06:24 MPV 9.1 fl (7.0-11.0) 05/10/17 06:24 Gran % 63.0 % (50.0-68.0) 05/10/17 06:24 Lymph % (Auto) 25.7 % (22.0-35.0) 05/10/17 06:24 Nye % (Auto) 9.8 % (1.0-6.0) H 05/10/17 06:24 Eos % (Auto) 1.3 % (1.5-5.0) L 05/10/17 06:24 Baso % (Auto) 0.2 % (0.0-3.0) 05/10/17 06:24 Gran # 4.01 (1.4-6.5) 05/10/17 06:24 Lymph # 1.6 (1.2-3.4) 05/10/17 06:24 Nye # 0.6 (0.1-0.6) 05/10/17 06:24 Eos # 0.1 (0.0-0.7) 05/10/17 06:24 Baso # 0.01 K/mm3 (0.0-2.0) 05/10/17 06:24 Sodium 137 mmol/L (132-148) 05/10/17 06:24 Potassium 4.4 mmol/L (3.6-5.0) 05/10/17 06:24 Chloride 102 mmol/L (98-107) 05/10/17 06:24 Carbon Dioxide 29 mmol/L (21-33) 05/10/17 06:24 Anion Gap 10 (10-20) 05/10/17 06:24 BUN 25 mg/dL (7-21) H 05/10/17 06:24 Creatinine 0.9 mg/dL (0.8-1.5) 05/10/17 06:24 Est GFR ( Amer) > 60 05/10/17 06:24 Est GFR (Non-Af Amer) > 60 05/10/17 06:24 Random Glucose 87 mg/dL (70-110) 05/10/17 06:24 Calcium 8.8 mg/dL (8.4-10.5) 05/10/17 06:24 Total Bilirubin 0.5 mg/dL (0.2-1.3) 05/10/17 06:24 AST 23 U/L (17-59) 05/10/17 06:24 ALT 31 U/L (7-56) 05/10/17 06:24 Alkaline Phosphatase 61 U/L (38-126) 05/10/17 06:24 Lactate Dehydrogenase 307 U/L (333-699) L 05/10/17 06:24 Total Creatine Kinase 36 U/L (35-230) 05/10/17 06:24 Troponin I < 0.01 ng/mL 05/10/17 06:24 NT-Pro-B Natriuret Pep 118 pg/mL (0-450) 05/09/17 14:35 Total Protein 6.1 g/dL (5.8-8.3) 05/10/17 06:24 Albumin 3.7 g/dL (3.0-4.8) 05/10/17 06:24 Globulin 2.4 gm/dL 05/10/17 06:24 Albumin/Globulin Ratio 1.5 (1.1-1.8) 05/10/17 06:24 Triglycerides 116 mg/dL (35-160) 05/10/17 06:24 Cholesterol 171 mg/dL (130-200) 05/10/17 06:24 LDL Cholesterol Direct 89 mg/dL (0-129) 05/10/17 06:24 HDL Cholesterol 58 mg/dL (29-60) 05/10/17 06:24 Attending/Attestation - Attestation I have personally seen and examined this patient.: Yes I have fully participated in the care of the patient.: Yes I have reviewed all pertinent clinical information, including history, physical exam and plan: Yes Notes (Text): 05/10/17 17:57 attending note; Patient seen and examined with resident. Patient is a 62-year-old male well kn[place]own to our service with PMH of CAD with MIx4 s/p stents x4 and CABG (triple bypass) in 2005, COPD, HTN, who presents complaining of chest pain. Currently admitted with chest pain. EKG shows ST T changes in the lateral leads/ same as before. Cardiac enzymes x 3 negative. Cardiology evaluation appreciated. Patient refused cardiac cath. Case discussed with PMD Dr. Damon in detail. positive stress test result informed. The patient will follow up with sign painter at [place] as per PMD. He will be referred for cardiac cath as outpatient if patient agrees. Upon discharge the patient will follow-up with PMD Dr. Damon. Diagnosis; Chest pain Positive stress test Active smoker HTn alcohol use noncompliance with follow-up 05/10/17 17:58
[2017-05-10 11:50] VITALS: BP 116/57; PULSE 69; RESP 16; TEMP 98.6
--- NOTE | 2017-05-10 19:46 | CON ---
DATE: 05/10/2017 HISTORY OF PRESENT ILLNESS: The patient is a 62-year-old male who presented with multiple admissions. This is a second admission recently. He presented with chest pain. PAST MEDICAL HISTORY: The patient's past medical history is notable for history of coronary artery bypass surgery. He also suffers from hypertension and COPD. He is noncompliant with medications and he has refused catheterization multiple times Currently, his pain is better. SOCIAL HISTORY: He is an active smoker and is a current smoker. REVIEW OF SYSTEMS: A 14-point review of systems was reviewed in detail. Other than the chest pain, no other cardiac symptoms noted. PHYSICAL EXAMINATION VITAL SIGNS: Stable. NECK: Negative JVD. LUNGS: Without rales. HEART: With S1, S2. EXTREMITIES: Without edema. DIAGNOSTIC DATA: EKG shows no changes from previous. LABORATORY DATA: Troponins are negative x4. IMPRESSION: 1. Recurrent angina. 2. History of coronary artery bypass surgery. 3. Chronic obstructive pulmonary disease. 4. Noncompliance. 5. Hypercholesterolemia. PLAN: Given these findings, he was offered cardiac catheterization this morning. The patient refused again. We will therefore have the only option which is continued medical therapy. No further cardiac intervention is appropriate given the patient's reluctance. Lauro Alejandra MD
== END 2017-05-10 14:13 | disposition home or self-care (01) ==
LOC: ED 13:30 → ERH 16:38 → 2RNO 18:01
PROVIDERS: ADMIT Internal Medicine; ATTEND Internal Medicine
DX: J44.1 Chronic obstructive pulmonary disease with (acute) exacerbation (principal); I25.10 Atherosclerotic heart disease of native coronary artery without angina pectoris; E78.00 Pure hypercholesterolemia, unspecified; F10.20 Alcohol dependence, uncomplicated; F17.210 Nicotine dependence, cigarettes, uncomplicated; K21.9 Gastro-esophageal reflux disease without esophagitis; I10 Essential (primary) hypertension; I25.2 Old myocardial infarction; Z91.19 Patient's noncompliance with other medical treatment and regimen; Z95.5 Presence of coronary angioplasty implant and graft; Z95.1 Presence of aortocoronary bypass graft; Z79.02 Long term (current) use of antithrombotics/antiplatelets; Z79.82 Long term (current) use of aspirin; Z91.14 Patient's other noncompliance with medication regimen
CPT/HCPCS: 36415; 71010; 80053; 80061; 82550; 83615; 83880; 84484; 85025; 93005; 94640; 94760; 96374; 96375; 99285; G0378; J2405

== ENCOUNTER 2017-05-22 21:29 | Emergency (ER) | payer MEDICAID ==
[2017-05-22 21:29] VITALS: BMI 24.3
[2017-05-22 21:37] VITALS: PULSE 88; TEMP 97.8
--- NOTE | 2017-05-22 21:55 | ED PDOC ---
Arrival/HPI - General Chief Complaint: Alcohol Ingestion Time Seen by Provider: 05/22/17 21:32 Historian: Patient - History of Present Illness Narrative History of Present Illness (Text): 05/22/17 21:53 [place] Alexandra is a 62 year old male, whose past medical history includes alcohol abuse, COPD, CAD with stents, hypertension, and depression, who presents to the Emergency department for public intoxication tonight. Patient admits to drinking alcohol tonight, states he feels fine. Patient denies suicidal ideation, homicidal ideation, fever, chills, chest pain, shortness of breath, nausea, vomiting, diarrhea, urinary symptoms, back pain, neck pain, headache, dizziness, or any other complaints. Time/Duration: Other (tonight) Symptom Onset: Gradual Symptom Course: Unchanged Activities at Onset: Light Context: Home Past Medical History - Provider Review Nursing Documentation Reviewed: Yes - Past History Past History: No Previous - Infectious Disease Hx of Infectious Diseases: None - Tetanus Immunization Tetanus Immunization: Unknown - Reproductive Currently : No - Cardiac Hx Cardiac Disorders: Yes ([place]) Hx Hypertension: Yes Other/Comment: CABG. BYPASS. 3 STENTS - Pulmonary Hx Respiratory Disorders: Yes Hx Bronchitis: Yes Hx Chronic Obstructive Pulmonary Disease (COPD): Yes Hx Tuberculosis: No - Neurological Hx Neurological Disorder: No (denies) - HEENT Hx HEENT Disorder: Yes Hx Cataracts: Yes (right eye) Hx Glaucoma: No - Renal Hx Renal Disorder: No - Endocrine/Metabolic Hx Endocrine Disorders: No - Hematological/Oncological Hx Blood Disorders: Yes (blood transfusion) Hx Anemia: Yes Hx Cancer: No - Integumentary Hx Dermatological Disorder: No - Musculoskeletal/Rheumatological Hx Musculoskeletal Disorders: Yes Hx Falls: Yes - Gastrointestinal Hx Gastrointestinal Disorders: Yes Hx Gall Bladder Disease: Yes (Gall stones removed) Hx Gastroesophageal Reflux: Yes - Genitourinary/Gynecological Hx Genitourinary Disorders: No (denies) - Psychiatric Hx Psychophysiologic Disorder: Yes Hx Anxiety: Yes Hx Substance Use: Yes (MARIJUANA,HEROINE ABUSE H/O) - Surgical History Hx Cardiac Catheterization: Yes Hx Coronary Stent: Yes (x3) Hx Open Heart Surgery: Yes - Anesthesia Hx Anesthesia: Yes Hx Anesthesia Reactions: No Hx Malignant Hyperthermia: No - Suicidal Assessment Feels Threatened In Home Enviroment: No Family/Social History - Physician Review Nursing Documentation Reviewed: Yes Family/Social History: Unknown Family HX Smoking Status: Current Some Days Smoker Hx Alcohol Use: Yes Hx Substance Use: Yes (MARIJUANA,HEROINE ABUSE H/O) Substance used: HEROIN, MARIJUANA Hx Substance Use Treatment: No Allergies/Home Meds Allergies/Adverse Reactions: Allergies shellfish derived Allergy (Verified 05/22/17 21:42) ANAPHYLAXIS Sulfa (Sulfonamide Antibiotics) Allergy (Verified 05/22/17 21:42) RASH Home Medications: Home Meds Medication Instructions Recorded Confirmed Carvedilol [Coreg] 3.125 mg PO BID 02/21/17 05/10/17 Fluticasone/Salmeterol 500/50 1 puff IH DAILY 02/21/17 05/09/17 [Advair Diskus 500/50] Isosorbide Mononitrate [Isosorbide 30 mg PO DAILY 02/21/17 05/10/17 Mononitrate ER] Montelukast Sodium [Singulair] 10 mg PO DAILY 02/21/17 05/10/17 Nitroglycerin [Nitrostat] 0.4 mg SL PRN PRN 02/21/17 05/10/17 Omeprazole 20 mg PO DAILY 02/21/17 05/10/17 Thiamine Mononitrate [Vitamin B-1] 100 mg PO DAILY 02/21/17 04/25/17 Ammonium Lactate [Deedee-Hydrolac] 1 appful TD DAILY 04/10/17 04/25/17 Betamethasone Dipropion Augmen 1 appful TD DAILY 04/10/17 04/25/17 [Diprolene AF 0.05%] Folic Acid 1 mg PO DAILY 04/10/17 05/10/17 Diclofenac Sodium [Voltaren] 1 appful TOP PRN PRN 04/18/17 04/25/17 Review of Systems - Physician Review All systems were reviewed & negative as marked: Yes - Review of Systems Constitutional: Normal. absent: Fevers Eyes: Normal ENT: Normal Respiratory: Normal. absent: SOB, Cough Cardiovascular: Normal. absent: Chest Pain Gastrointestinal: Normal. absent: Abdominal Pain, Diarrhea, Nausea, Vomiting Genitourinary Male: Normal. absent: Dysuria, Frequency, Hematuria, Urinary Output Changes Musculoskeletal: Normal. absent: Back Pain, Neck Pain Skin: Normal. absent: Rash Neurological: Normal. absent: Headache, Dizziness Endocrine: Normal Hemo/Lymphatic: Normal Psychiatric: Normal Physical Exam Vital Signs Reviewed: Yes Vital Signs Temp Pulse Resp BP Pulse Ox 05/22/17 21:31 97.8 F 88 19 137/83 98 Temperature: Afebrile Blood Pressure: Normal Pulse: Regular Respiratory Rate: Normal Appearance: Positive for: Well-Appearing, Non-Toxic, Comfortable Pain Distress: None Mental Status: Positive for: Alert and Oriented X 3 - Systems Exam Head: Present: Atraumatic, Normocephalic Pupils: Present: PERRL Extroacular Muscles: Present: EOMI Conjunctiva: Present: Normal Mouth: Present: Moist Mucous Membranes Neck: Present: Normal Range of Motion Respiratory/Chest: Present: Clear to Auscultation, Good Air Exchange. No: Respiratory Distress, Accessory Muscle Use Cardiovascular: Present: Regular Rate and Rhythm, Normal S1, S2. No: Murmurs Abdomen: Present: Normal Bowel Sounds. No: Tenderness, Distention, Peritoneal Signs Back: Present: Normal Inspection Upper Extremity: Present: Normal Inspection. No: Cyanosis, Edema Lower Extremity: Present: Normal Inspection. No: Edema Neurological: Present: GCS=15, CN II-XII Intact, Speech Normal Skin: Present: Warm, Dry, Normal Color. No: Rashes Psychiatric: Present: Alert, Oriented x 3, Normal Insight, Normal Concentration Medical Decision Making ED Course and Treatment: 05/22/17 21:53 Impression: 62 year old brought in for public intoxication tonight. Differential Diagnosis included but are not limited to: alcohol intoxication Plan: -- Reassess and disposition Prior Visits: Notes and results from previous visits were reviewed. On 05/09/17, pt was seen in the Emergency department for chest tightness and shortness of breath. Pt was admitted to the hospital for further evaluation. Progress Notes: 05/23/17 05:57 Pt awake, alert, ambulating with steady gait. In no acute distress, clinically sober. Pt stable for d/c. - Scribe Statement The provider has reviewed the documentation as recorded by the Scribe Keira Adam All medical record entries made by the Scribe were at my direction and personally dictated by me. I have reviewed the chart and agree that the record accurately reflects my personal performance of the history, physical exam, medical decision making, and the department course for this patient. I have also personally directed, reviewed, and agree with the discharge instructions and disposition. Disposition/Present on Arrival - Present on Arrival Any Indicators Present on Arrival: No History of DVT/PE: No History of Uncontrolled Diabetes: No Urinary Catheter: No History of Decub. Ulcer: No History Surgical Site Infection Following: None - Disposition Have Diagnosis and Disposition been Completed?: Yes Diagnosis: Alcohol intoxication Disposition: HOME/ ROUTINE Disposition Time: 05:58 Patient Plan: Discharge Condition: GOOD Discharge Instructions (ExitCare): Alcohol Intoxication (ED) Referrals: Danny Schmitt MD [Primary Care Provider] - Follow up with primary Alcoholics Anonymous [Outside] - Follow up with primary Forms: [facility] (Telugu)
[2017-05-23 06:13] VITALS: BP 139/89; RESP 18; O2SAT 96
== END 2017-05-23 06:10 | disposition home or self-care (01) ==
LOC: ED 21:29
DX: F10.129 Alcohol abuse with intoxication, unspecified (principal); F17.200 Nicotine dependence, unspecified, uncomplicated; I10 Essential (primary) hypertension; J44.9 Chronic obstructive pulmonary disease, unspecified; I25.10 Atherosclerotic heart disease of native coronary artery without angina pectoris

== ENCOUNTER 2017-07-05 15:01 | Inpatient (IN) | payer MEDICAID ==
[2017-07-05 15:01] VITALS: BMI 24.3
[2017-07-05] MEDS ORDERED: Sodium Chloride 0.9% 1,000 ML IV STA ×3 (16:17→18:32)
[2017-07-05] MEDS ORDERED: Morphine 2 mg/ml ISec IVP STA ×2 (16:21→17:54)
--- NOTE | 2017-07-05 16:27 | ED PDOC ---
Arrival/HPI - General Chief Complaint: Abdominal Pain Time Seen by Provider: 07/05/17 15:28 - History of Present Illness Narrative History of Present Illness (Text): 62 y/o male w/ pmhx of chronic alcoholism, cigarette smoking, cad s/p pci x 6, s /p OHS for CABG , HTN, HLD, s/p cholecystectomy/ appendectomy, reported;ly negative colonoscopy presents c/o 2 days of upper abdominal pain luq>>epigstgric >midline supraumilical, + associated nausea/ + postprandial exacerbation, + associated diaphoresis and mild dizziness as well, although never exertionally exacerbated.The pain commenced while eating a peanut butter sandwhich and cofee for breakfast in the am prior to work. He suffered immediate luq ain w/ nausea accompnaied by mild dizzinesss/diaphoresis but vomtiing /hematemsis/melena/ brbpr . Throughout the day the pain appeared to be postprandially exacerbted so he avoided eating until evening when he was able to tolerate soup and washed it doen with several shots of whiskey uneventfully. The next day the pain returned postprandially and has been worsieing at times radiating though his left pectoral region, he dneis any radiatio to the back or arm, and states that this pain feels dissimilar from his prior epiosdes of acs. 07/05/17 16:22 07/05/17 19:12 Past Medical History - Provider Review Nursing Documentation Reviewed: Yes - Past History Past History: No Previous - Infectious Disease Hx of Infectious Diseases: None - Tetanus Immunization Tetanus Immunization: Unknown - Cardiac Hx Cardiac Disorders: Yes ([place]) Hx Hypertension: Yes - Pulmonary Hx Chronic Obstructive Pulmonary Disease (COPD): Yes - Neurological Hx Neurological Disorder: No (denies) - HEENT Hx HEENT Disorder: Yes Hx Cataracts: Yes (right eye) Hx Glaucoma: No - Renal Hx Renal Disorder: No - Endocrine/Metabolic Hx Endocrine Disorders: No - Hematological/Oncological Hx Blood Disorders: Yes (blood transfusion) Hx Anemia: Yes Hx Cancer: No - Integumentary Hx Dermatological Disorder: No - Musculoskeletal/Rheumatological Hx Musculoskeletal Disorders: Yes Hx Falls: Yes - Gastrointestinal Hx Gastrointestinal Disorders: Yes Hx Gall Bladder Disease: Yes (Gall stones removed) Hx Gastroesophageal Reflux: Yes - Genitourinary/Gynecological Hx Genitourinary Disorders: No (denies) - Psychiatric Hx Psychophysiologic Disorder: Yes Hx Anxiety: Yes Hx Substance Use: Yes (MARIJUANA,HEROINE ABUSE H/O) - Surgical History Hx Cardiac Catheterization: Yes Hx Coronary Stent: Yes (x3) Hx Open Heart Surgery: Yes - Anesthesia Hx Anesthesia: Yes Hx Anesthesia Reactions: No Hx Malignant Hyperthermia: No - Suicidal Assessment Feels Threatened In Home Enviroment: No Family/Social History - Physician Review Nursing Documentation Reviewed: Yes Family/Social History: No Known Family HX Smoking Status: Current Some Days Smoker Hx Alcohol Use: Yes (dottie germain "on and off") Hx Substance Use: Yes (MARIJUANA,HEROINE ABUSE H/O) Substance used: HEROIN, MARIJUANA Hx Substance Use Treatment: No Allergies/Home Meds Allergies/Adverse Reactions: Allergies shellfish derived Allergy (Verified 07/05/17 15:55) ANAPHYLAXIS Sulfa (Sulfonamide Antibiotics) Allergy (Verified 07/05/17 15:55) RASH Home Medications: Home Meds Medication Instructions Recorded Confirmed Carvedilol [Coreg] 3.125 mg PO BID 02/21/17 05/29/17 Fluticasone/Salmeterol 500/50 1 puff IH DAILY 02/21/17 05/29/17 [Advair Diskus 500/50] Isosorbide Mononitrate [Isosorbide 30 mg PO DAILY 02/21/17 05/29/17 Mononitrate ER] Nitroglycerin [Nitrostat] 0.4 mg SL PRN PRN 02/21/17 05/29/17 Omeprazole 20 mg PO DAILY 02/21/17 05/29/17 Thiamine Mononitrate [Vitamin B-1] 100 mg PO DAILY 02/21/17 05/29/17 Ammonium Lactate [Deedee-Hydrolac] 1 appful TD DAILY 04/10/17 05/29/17 Betamethasone Dipropion Augmen 1 appful TD DAILY 04/10/17 05/29/17 [Diprolene AF 0.05%] Folic Acid 1 mg PO DAILY 04/10/17 05/29/17 Diclofenac Sodium [Voltaren] 1 appful TOP PRN PRN 04/18/17 05/29/17 Review of Systems - Physician Review All systems were reviewed & negative as marked: Yes - Review of Systems Constitutional: Normal Eyes: Normal ENT: Normal Respiratory: Normal Cardiovascular: Normal Gastrointestinal: Abdominal Pain, Nausea Genitourinary Male: Normal Musculoskeletal: Normal Skin: Normal Neurological: Normal Endocrine: Normal Hemo/Lymphatic: Normal Psychiatric: Normal Physical Exam Vital Signs Reviewed: Yes Vital Signs Temp Pulse Resp BP Pulse Ox 07/05/17 18:58 74 16 118/53 L 94 L 07/05/17 18:13 59 L 16 81/49 L 96 07/05/17 15:53 97.5 F L 85 16 101/67 94 L Temperature: Afebrile Blood Pressure: Normal Pulse: Regular Respiratory Rate: Normal Appearance: Positive for: Well-Appearing, Non-Toxic, Comfortable Pain Distress: None Mental Status: Positive for: Alert and Oriented X 3 - Systems Exam Head: Present: Atraumatic, Normocephalic Pupils: Present: PERRL Extroacular Muscles: Present: EOMI Conjunctiva: Present: Normal Mouth: Present: Moist Mucous Membranes Neck: Present: Normal Range of Motion Respiratory/Chest: Present: Clear to Auscultation, Good Air Exchange. No: Respiratory Distress, Accessory Muscle Use Cardiovascular: Present: Regular Rate and Rhythm, Normal S1, S2. No: Murmurs Abdomen: Present: Normal Bowel Sounds, Other (luq ttp>epigastric > supraumblical ttp , no voluntary guarding). No: Tenderness, Distention, Peritoneal Signs Back: Present: Normal Inspection Upper Extremity: Present: Normal Inspection. No: Cyanosis, Edema Lower Extremity: Present: Normal Inspection. No: Edema Neurological: Present: GCS=15, CN II-XII Intact, Speech Normal, Motor Func Grossly Intact, Normal Sensory Function, Normal Cerebellar Funct, Norm Deep Tendon Reflexes Skin: Present: Warm, Dry, Normal Color. No: Rashes Psychiatric: Present: Alert, Oriented x 3, Normal Insight, Normal Concentration Medical Decision Making ED Course and Treatment: 62 y/o male w/ involved cardiac history presents c/o pstprandially exacerbated epigastric pain . 07/05/17 1654 ekg: NSR @ 68 BPM, ST-T SEGMENT FLATTENING, NO ARRYTHMOGEIC INTERVALS 07/05/17 1853 ekg: nsr @ 63 BPM + NEW ONSET TWI , NO ARRYTYHMOGENIC INTERVALS pT Clinical presetation/labs and status reported to admitteing Maria Dolores Lackey whom agreed to take the admission. Drs. Alejandra and Maria Dolores have been consulted. Pt admittd for intractable gastritis r/o acs , given hish involved cardiac history 07/05/17 19:18 - Lab Interpretations Lab Results: 07/05/17 16:30 07/05/17 16:30 Lab Results 07/05/17 16:30: Magnesium 1.9 07/05/17 16:30: Sodium 123 L, Potassium 5.1 H, Chloride 89 L, Carbon Dioxide 24 , Anion Gap 15, BUN 18, Creatinine 0.8, Est GFR ( Amer) > 60, Est GFR ( Non-Af Amer) > 60, Random Glucose 80, Calcium 9.2, Total Bilirubin 0.7, AST 41, ALT 38, Alkaline Phosphatase 62, Troponin I < 0.01, Total Protein 6.8, Albumin 4.3, Globulin 2.4, Albumin/Globulin Ratio 1.8, Lipase 164 07/05/17 16:30: PT 11.3, INR 1.04, APTT 33.1 07/05/17 16:30: WBC 6.3 D, RBC 3.55, Hgb 11.9 L, Hct 34.4 L, MCV 96.9 D, MCH 33.5, MCHC 34.6, RDW 13.4, Plt Count 291, MPV 8.7, Gran % 54.1, Lymph % (Auto) 29.6, [place] % (Auto) 13.9 H, Eos % (Auto) 1.9, Baso % (Auto) 0.5, Gran # 3.41, Lymph # 1.9, [place] # 0.9 H, Eos # 0.1, Baso # 0.03 - RAD Interpretation Radiology Orders: 07/05/17 17:55 ABD PELVIS PO & IV CONTRAST [CT] Stat - Medication Orders Current Medication Orders: Sodium Chloride (Sodium Chloride 0.9%) 1,000 mls @ 100 mls/hr IV .Q10H STA Stop: 07/06/17 04:31 Discontinued Medications Aspirin (Ecotrin) 325 mg PO STAT STA Stop: 07/05/17 18:05 Last Admin: 07/05/17 18:22 Dose: 325 mg Famotidine (Pepcid) 20 mg IVP STAT STA Stop: 07/05/17 16:18 Last Admin: 07/05/17 16:45 Dose: 20 mg IVP Administration Document 07/05/17 16:45 SC (Rec: 07/05/17 16:45 SC [id number]) Charges for Administration # of IVP Administrations 1 Sodium Chloride (Sodium Chloride 0.9%) 1,000 mls @ 1,000 mls/hr IV .Q1H STA Stop: 07/05/17 17:16 Last Admin: 07/05/17 16:45 Dose: 1,000 mls/hr eMAR Start Stop Document 07/05/17 16:45 SC (Rec: 07/05/17 16:45 SC [id number]) Intravenous Solution Start Date 07/05/17 Start Time 16:45 End Date 07/05/17 End time 17:45 Total Infusion Time 60 Sodium Chloride (Sodium Chloride 0.9%) 1,000 mls @ 999 mls/hr IV .Q1H1M STA Stop: 07/05/17 19:12 Last Admin: 07/05/17 18:14 Dose: 999 mls/hr eMAR Start Stop Document 07/05/17 18:14 SC (Rec: 07/05/17 18:14 SC [id number]) Intravenous Solution Start Date 07/05/17 Start Time 18:14 End Date 07/05/17 End time 19:15 Total Infusion Time 61 Morphine Sulfate (Morphine) 2 mg IVP STAT STA Stop: 07/05/17 16:22 Last Admin: 07/05/17 16:45 Dose: 2 mg MAR Pain Assessment Document 07/05/17 16:45 SC (Rec: 07/05/17 16:46 SC [id number]) Pain Reassessment Is this a pain reassessment? No Sleep Is patient sleeping during reassessment? No Presence of Pain Presence of Pain Yes Pain Scale Used Pain Scale Used Numeric Description Intensity of Pain at present 8 IVP Administration Document 07/05/17 16:45 SC (Rec: 07/05/17 16:46 SC [id number]) Charges for Administration # of IVP Administrations 1 Morphine Sulfate (Morphine) 2 mg IVP STAT STA Stop: 07/05/17 17:55 Last Admin: 07/05/17 18:06 Dose: 2 mg MAR Pain Assessment Document 07/05/17 18:06 SC (Rec: 07/05/17 18:07 SC [id number]) Pain Reassessment Is this a pain reassessment? Yes Sleep Is patient sleeping during reassessment? No Presence of Pain Presence of Pain Yes Pain Scale Used Pain Scale Used Numeric Location Pain Location Body Site Chest Abdomen Description Intensity of Pain at present 10 IVP Administration Document 07/05/17 18:06 SC (Rec: 07/05/17 18:07 SC [id number]) Charges for Administration # of IVP Administrations 2 Nitroglycerin (Nitro-Bid 2% Oint) 1 ea TOP STAT STA Stop: 07/05/17 18:00 Last Admin: 07/05/17 18:13 Dose: Ondansetron HCl (Zofran Inj) 4 mg IVP STAT STA Stop: 07/05/17 16:18 Last Admin: 07/05/17 16:45 Dose: 4 mg IVP Administration Document 07/05/17 16:45 SC (Rec: 07/05/17 16:45 SC [id number]) Charges for Administration # of IVP Administrations 1 Pantoprazole Sodium (Protonix Inj) 40 mg IVP STAT STA Stop: 07/05/17 17:55 Last Admin: 07/05/17 18:06 Dose: 40 mg IVP Administration Document 07/05/17 18:06 SC (Rec: 07/05/17 18:06 SC [id number]) Charges for Administration # of IVP Administrations 1 Disposition/Present on Arrival - Present on Arrival Any Indicators Present on Arrival: No History of DVT/PE: No History of Uncontrolled Diabetes: No Urinary Catheter: No History of Decub. Ulcer: No History Surgical Site Infection Following: None - Disposition Have Diagnosis and Disposition been Completed?: Yes Diagnosis: Gastritis, Chest pain Disposition: HOSPITALIZED Disposition Time: 18:24 Patient Plan: Admission, Telemetry Condition: GUARDED Discharge Instructions (ExitCare): Chest Pain (ED) Referrals: Danny Schmitt MD [Primary Care Provider] - Follow up with primary Forms: [employer] (Nepali)
[2017-07-05 16:52] LABS: ALB/GLOB RATIO 1.8 (1.1-1.8); ALKALINE PHOSPHATASE 62 U/L (38-126); ALT/SGPT 38 U/L (7-56); AST/SGOT 41 U/L (17-59); BILIRUBIN,TOTAL 0.7 mg/dL (0.2-1.3); BLOOD UREA NITROGEN 18 mg/dL (7-21); CALCIUM 9.2 mg/dL (8.4-10.5); CARBON DIOXIDE 24 mmol/L (21-33); CHLORIDE 89 mmol/L (98-107); GFR AFRICAN-AMERICAN > 60; GLUCOSE,RANDOM 80 mg/dL (70-110); LIPASE 164 U/L (23-300); POTASSIUM 5.1 mmol/L (3.6-5.0); SODIUM 123 mmol/L (132-148); TOTAL PROTEIN 6.8 g/dL (5.8-8.3)
[2017-07-05 16:58] LABS: BASO # 0.03 K/mm3 (0.0-2.0); BASO % 0.5 % (0.0-3.0); EOS # 0.1 (0.0-0.7); EOS % 1.9 % (1.5-5.0); GRAN # 3.41 (1.4-6.5); GRAN % 54.1 % (50.0-68.0); HEMATOCRIT 34.4 % (42.0-52.0); LYMPH # 1.9 (1.2-3.4); LYMPH % 29.6 % (22.0-35.0); MEAN CELL VOLUME 96.9 fl (80.0-105.0); MEAN CORPUSCULAR HEMOGLOBIN 33.5 pg (25.0-35.0); MEAN CORPUSCULAR HGB CONC 34.6 g/dl (31.0-37.0); MEAN PLATELET VOLUME 8.7 fl (7.0-11.0); MONO # 0.9 (0.1-0.6); MONO % 13.9 % (1.0-6.0); RED CELL DISTRIBUTION WIDTH 13.4 % (11.5-14.5); WHITE BLOOD COUNT 6.3 10^3/ul (4.5-11.0)
[2017-07-05 17:03] LABS: TROPONIN I < 0.01 ng/mL
[2017-07-05 17:10] LABS: INR 1.04 (0.93-1.08); PARTIAL THROMBOPLASTIN TIME 33.1 Seconds (25.1-36.5)
[2017-07-05] MEDS ORDERED: Nitroglycerin 2% Ointment Foilpak UD TOP STA (17:59)
[2017-07-05] MEDS ORDERED: Aspirin 325 mg EC Tablets PO STA (18:04)
--- NOTE | 2017-07-05 18:14 | CARD ---
APPROVED REPORT EKG Measurement Heart [id number] <Conclusion> Normal sinus rhythm with sinus arrhythmia ST elevation, probably due to early repolarization Borderline ECG
[2017-07-05] MEDS ORDERED: Iohexol 350 MG/100 ML VIAL ONE (19:52)
--- NOTE | 2017-07-05 21:21 | CT ---
EXAM: CT Abdomen and Pelvis With Intravenous Contrast EXAM DATE/TIME: 07/05/2017 5:55 PM CLINICAL HISTORY: 62 years old, male; Pain; Abdominal pain; Localized; Upper; Additional info: Upper abdominal pain TECHNIQUE: Axial computed tomography images of the abdomen and pelvis with intravenous contrast. All CT scans at this facility use one or more dose reduction techniques, viz.: automated exposure control; ma/kV adjustment per patient size (including targeted exams where dose is matched to indication; i.e. head); or iterative reconstruction technique. Coronal and sagittal reformatted images were created and reviewed. CONTRAST: 100 mL of OMNI administered intravenously. COMPARISON: CT - CHEST,ABDOMEN,PELVIS W/O CONT 2016-10-23 06:55 FINDINGS: Lower thorax: Heart size is normal. Lung bases are hyperinflated. There is minimal scarring. There is a small hiatal hernia. ABDOMEN: Liver: unremarkable Gallbladder and bile ducts: Gallbladder is absent.There is prominence of the common duct. Pancreas: unremarkable Spleen: unremarkable Adrenals: unremarkable Kidneys and ureters: There are small bilateral renal cysts. There are additional low attenuation renal lesions too small to accurately characterize. There is a 2.3 X 1.4 cm left upper mid pole hyperdense cyst, unchanged.There is no pelvocaliectasis or ureterectasis. Stomach and bowel: The stomach is partially distended. Rotation is normal. Small bowel is partially distended with oral contrast. There is no obstruction. Ileocecal region is unremarkable.Colon is incompletely distended which limits evaluation.There is diverticulosis. Appendix: See stomach and bowel PELVIS: Bladder: unremarkable Reproductive: Prostate is mildly enlarged. Seminal vesicles are unremarkable. ABDOMEN and PELVIS: Intraperitoneal space: There is no free air or free fluid. Bones/joints: There are postsurgical changes of median sternotomy. There are degenerative changes in the osseus structures. There are old left rib fractures. Soft tissues: There are postsurgical changes in the left groin. Vasculature: Aorta is mildly tortuous. There are atherosclerotic calcifications. There are calcified phleboliths. Lymph nodes: There is no pathologic adenopathy. IMPRESSION: Prominent common duct status post cholecystectomy; no acute solid visceral or bowel abnormality, no CT findings of appendicitis or diverticulitis Additional findings as described above.
[2017-07-06 00:07] LABS: TROPONIN I < 0.01 ng/mL
--- NOTE | 2017-07-06 03:06 | CON ---
DATE: 07/05/2017 LOCATION: The patient is in room 373, bed 2. This consult is on behalf of Dr. Alejandra, whom I am covering. REASON FOR CONSULTATION: Coronary artery disease and abdominal pain. HISTORY OF PRESENT ILLNESS: A 62-year-old very poor compliant patient with history of heavy alcohol drinking, cigarette smoking, history of bypass surgery and stent insertion, hypertension, and hyperlipidemia admitted with two days' history of abdominal pain, also feels nauseous, this abdominal pain gets worse on eating some food, and some time he feels the abdominal pain extending up to lower sternal area. Denies any exertional chest pain or hematemesis or melena. In the past, the patient has also refused cardiac catheterization. PAST MEDICAL HISTORY: History of CABG and stent insertion, cholecystectomy, appendectomy, hypertension, hyperlipidemia, and also history of COPD. PERSONAL HISTORY: Active smoker, also continues to drink, and has history of chronic heavy alcoholism. HOME MEDICATIONS: Carvedilol 3.125 b.i.d., Solu-Medrol one puff daily, isosorbide mononitrate 30 daily, omeprazole 20 mg daily, vitamin D 100 mg daily, folic acid 1 mg daily, and Voltaren p.r.n. ALLERGIES: THE PATIENT IS ALLERGIC TO SHELLFISH DERIVATIVES AND ALSO ALLERGY TO SULFA. SOCIAL HISTORY: Not significant. SUBSTANCE ABUSE: The patient has a history of marijuana and heroin abuse in the past. FAMILY HISTORY: Not significant. PHYSICAL EXAMINATION: VITAL SIGNS: Blood pressure 92/56, respirations 20, pulse 64, and temperature 97.6. HEENT: Head is normocephalic. Eyes; pupils normal. Conjunctivae normal. Nose and throat normal. NECK: JVP is low. Carotids are equal. THORAX: AP diameter normal. Ablation scar from previous CABG. LUNGS: Clear. CARDIOVASCULAR: S1 and S2. ABDOMEN: Soft. No tenderness. No organomegaly. Bowel sounds normal. EXTREMITIES: No clubbing. No cyanosis. LABORATORY DATA: WBC 6.3, hemoglobin 11.9, hematocrit 34.4, and platelets 291. Sodium 123, potassium 5.1, BUN 18, creatinine 0.8, and magnesium 1.9. AST and ALT normal. Troponin less than 0.01. Total protein 6.8, albumin 4.3, and vitamin B12 is 164. EKG showed normal sinus rhythm with sinus arrhythmia, early repolarization changes. Abdominal and pelvic CT scan p.o. and IV contrast, prominent common duct, status post cholecystectomy. No acute solid visceral or bowel abnormality. DIAGNOSES: Abdominal pain, history of coronary artery disease, history of coronary artery bypass surgery, history of stent insertion, chronic obstructive pulmonary disease, hyperlipidemia, anemia, history of alcohol abuse, and tobacco abuse. PLAN: The patient's pain is of GI origin. The patient is on carvedilol 3.125 p.o. b.i.d., aspirin 81 mg daily, isosorbide mononitrate 30 daily, atorvastatin 40 daily, Plavix 75 daily, Protonix 40 mg IV daily, and Singulair 10 mg at bedtime. The patient's sodium is low so, so normal saline, IV fluid 100 mL an hour has been ordered. We will follow repeat troponin and we will follow repeat electrolytes, BUN in morning and we will follow. Flor Crocker MD
[2017-07-06] MEDS ORDERED: Pantoprazole 20 mg EC Tab PO SCH (06:00)
[2017-07-06 08:32] LABS: BASO # 0.03 K/mm3 (0.0-2.0); BASO % 0.5 % (0.0-3.0); EOS # 0.1 (0.0-0.7); EOS % 1.4 % (1.5-5.0); GRAN # 3.79 (1.4-6.5); GRAN % 65.1 % (50.0-68.0); HEMATOCRIT 36.5 % (42.0-52.0); LYMPH # 1.3 (1.2-3.4); LYMPH % 22.5 % (22.0-35.0); MEAN CELL VOLUME 98.6 fl (80.0-105.0); MEAN CORPUSCULAR HEMOGLOBIN 33.8 pg (25.0-35.0); MEAN CORPUSCULAR HGB CONC 34.2 g/dl (31.0-37.0); MEAN PLATELET VOLUME 8.8 fl (7.0-11.0); MONO # 0.6 (0.1-0.6); MONO % 10.5 % (1.0-6.0); RED CELL DISTRIBUTION WIDTH 13.8 % (11.5-14.5); WHITE BLOOD COUNT 5.8 10^3/ul (4.5-11.0)
[2017-07-06 08:54] LABS: TROPONIN I < 0.01 ng/mL
[2017-07-06 09:16] LABS: BLOOD UREA NITROGEN 10 mg/dL (7-21); CALCIUM 9.2 mg/dL (8.4-10.5); CARBON DIOXIDE 25 mmol/L (21-33); CHLORIDE 99 mmol/L (98-107); GFR AFRICAN-AMERICAN > 60; GLUCOSE,RANDOM 74 mg/dL (70-110); POTASSIUM 4.6 mmol/L (3.6-5.0); SODIUM 131 mmol/L (132-148)
[2017-07-06] MEDS: Morphine 2 mg/ml ISec IVP PRN ×3 (11:43→22:23)
[2017-07-06] MEDS: Sodium Chloride 0.9% 1,000 ML IV SCH (11:44)
--- NOTE | 2017-07-06 15:17 | CARD ---
APPROVED REPORT EKG Measurement Heart [id number] <Conclusion> Normal sinus rhythm Normal ECG
[2017-07-06] MEDS: Albuterol-Ipratrop 3 mg / 0.5 (3 ml) UD IH PRN (17:24)
[2017-07-06 18:24] LABS: URINE BILIRUBIN NEGATIVE (NEGATIVE); URINE BLOOD NEGATIVE (NEGATIVE); URINE GLUCOSE (UA) NEGATIVE (NEGATIVE); URINE KETONE NEGATIVE (NEGATIVE); URINE LEUKOCYTE ESTERASE NEGATIVE Leu/uL (NEGATIVE); URINE PROTEIN NEGATIVE mg/dL (<30 mg/dL); URINE UROBILINOGEN 0.2 E.U./dL (<1 E.U./dL)
[2017-07-06 18:25] LABS: URINE APPEARANCE CLEAR (CLEAR); URINE COLOR YELLOW (YELLOW)
--- NOTE | 2017-07-06 20:23 | PN ---
DATE: 07/06/2017 LOCATION: The patient is in room 373, bed 2. This progress note being dictated on behalf of Dr. Alejandra, whom I am covering. REASON FOR CONSULTATION: Followup, coronary artery disease, abdominal pain. SUBJECTIVE: The patient is lying flat in bed without any cardiac symptoms of chest pain, shortness of breath, palpitations. The patient still complaint of abdominal pain, sometime feels nausea. Denies any hematemesis, melena. PHYSICAL EXAMINATION VITAL SIGNS: Blood pressure is 102/59, respirations 20, pulse 69, temperature 97.6. HEENT: Head is normocephalic. Eyes; pupils normal. Conjunctivae slightly pale. NECK: JVP is low. Carotids are equal. THORAX: AP diameter normal. LUNGS: Clear. CARDIOVASCULAR: S1 and S2. ABDOMEN: Soft. No tenderness. No organomegaly. Bowel sounds normal. EXTREMITIES: No clubbing. No cyanosis. LABORATORY DATA: WBC 5.8, hemoglobin 12.5, hematocrit 36.5, platelet 280. Sodium 131, potassium 4.6, BUN 10, creatinine 0.7, troponin x3 negative. DIAGNOSES: Abdominal pain, history of coronary artery disease, history of coronary artery bypass surgery, history of angioplasty with stent insertion, chronic obstructive pulmonary disease, hyperlipidemia, anemia, history of alcohol abuse and tobacco abuse. PLAN: The patient is still with pain in the abdominal region. The patient has no anginal symptom. The patient is on carvedilol 3.125 b.i.d., Carafate 1 g p.o. at bedtime, aspirin 81 mg daily, isosorbide mononitrate 30 daily, Lipitor 40 daily, Plavix 75 mg daily, Protonix 40 IV daily, Singulair 10 mg p.o. at bedtime, the patient is getting 0.9 saline at 75 mL an hour. The patient's yesterday sodium was 123 and today is 131. We will repeat SMA 7, magnesium, phosphorus in the morning. We will follow. Flor Crocker MD
[2017-07-06] MEDS: Sucralfate 1 gm/10 ml Oral Susp UD PO SCH (22:23)
--- NOTE | 2017-07-07 04:05 | HP ---
HISTORY OF PRESENT ILLNESS: The patient is a 62-year-old patient of Dr. Whitten came to emergency room because of increasing shortness of breath, complain of chest pain, complain of abdominal pain. The patient is active smoker. He is actively wheezing. Denies any nausea or vomiting. Asking for pain medication. The patient is very noncompliant with his medication. Currently, he is living in [facility]. He does admit being heavy alcoholic and smoker. The patient does complain of abdominal complaint and demanding morphine injection and also state he is hungry. He is not looked in any distress except he has mild shortness of breath. PAST MEDICAL HISTORY: 1. He has significant past medical history for hypertension. 2. Hyperlipidemia. 3. History of open heart surgery. 4. History of angioplasty. 5. Hyperlipidemia. 6. COPD. SURGICAL HISTORY: Significant for cholecystectomy and appendectomy. SOCIAL HISTORY: He is active smoker, also drink heavy. ALLERGIES: HE IS ALLERGIC TO SHELLFISH DERIVATIVE AND SULFA BASED MEDICATION. MEDICATIONS: At home he is supposed to take nitroglycerin, Singulair, isosorbide, folic acid, Plavix 75 mg daily, Coreg 3.125 twice a day, atorvastatin 40 mg at dinner time, aspirin 81 daily. REVIEW OF SYSTEMS: Significant for intermittent abdominal pain. Significant for cough and congestion. PHYSICAL EXAMINATION: GENERAL: On examination, he is awake, alert, oriented, communicative. VITAL SIGNS: He is afebrile, pulse 69, respirations 20, and blood pressure 102/59. LUNGS: Bilateral fair airflow. Bilateral expiratory rhonchi. HEART: S1 and S2 audible. ABDOMEN: Soft and nontender. No rebound. No guarding. NEUROLOGIC: The patient is awake, alert, oriented, communicative. LABORATORY DATA: WBC is 5.8, hemoglobin 12.5, hematocrit 36.5, and platelets 280. Chemistry; sodium 131, potassium 4.6, chloride 99, CO2 of 25, BUN 10, creatinine 0.7, and blood sugar of 74. Urinalysis is unremarkable. A CT scan of the abdomen and pelvis shows prominent common bile duct. No mass. ASSESSMENT AND PLAN: 1. Chronic obstructive pulmonary disease exacerbation. 2. Chest pain, rule out underlying coronary ischemia. 3. Chronic obstructive pulmonary disease. 4. Alcohol dependence. 5. Coronary artery disease status post open heart surgery. PLAN: The patient is being admitted on telemetry. We will start him on his cardiac meds that is Coreg. We will start him on nebulizer treatment. He is on aspirin 81 mg daily. He is on isosorbide, statins, analgesic as needed. Start him on thiamine. We will start him on IV fluids and we will reevaluate the patient in a.m. Cardiology consult by Dr. Crocker and GI consult by Dr. Weaver has been requested. Maria Luz Gruber MD
[2017-07-07] MEDS: Sodium Chloride 0.9% 1,000 ML IV SCH (05:46)
[2017-07-07] MEDS: Morphine 2 mg/ml ISec IVP PRN ×2 (05:46→13:51)
[2017-07-07] MEDS: Albuterol-Ipratrop 3 mg / 0.5 (3 ml) UD IH PRN ×3 (08:14→18:59)
[2017-07-07 08:16] LABS: BLOOD UREA NITROGEN 7 mg/dL (7-21); CALCIUM 9.1 mg/dL (8.4-10.5); CARBON DIOXIDE 27 mmol/L (21-33); CHLORIDE 100 mmol/L (98-107); GFR AFRICAN-AMERICAN > 60; GLUCOSE,RANDOM 85 mg/dL (70-110); MAGNESIUM 1.8 mg/dL (1.7-2.2); PHOSPHOROUS 3.1 mg/dL (2.5-4.5); POTASSIUM 4.6 mmol/L (3.6-5.0); SODIUM 134 mmol/L (132-148)
--- NOTE | 2017-07-07 19:24 | PN ---
DATE: SUBJECTIVE: The patient is a 62-year-old seen and examined, seems to be calmer today, eating and tolerating. PHYSICAL EXAMINATION: VITAL SIGNS: He is afebrile, pulse 75, respirations 19, and blood pressure 97/59. LUNGS: Bilateral good airflow. No rhonchi or crackle. HEART: S1 and S2 audible. ABDOMEN: Soft and nontender. No rebound, no guarding. NEUROLOGIC: The patient is awake, alert, and oriented. Able to communicate. Ambulatory. LABORATORY EXAMINATION: Sodium 134, potassium 4.6, chloride 100, CO2 of 27, BUN 7, creatinine 0.7. Urinalysis is unremarkable. CT scan of the abdomen and pelvis is unremarkable. ASSESSMENT: 1. Chest pain, noncardiac. 2. Alcohol dependence. 3. Coronary artery disease status post open heart surgery. 4. Chronic obstructive pulmonary disease. 5. Active smoker. 6. Chronic anemia. PLAN: We will discontinue his telemetry. The patient is stable from Cardiology point of view. We will discontinue IV fluids. We will advance his diet. Awaiting GI input. We will follow up his electrolytes in a.m. Maria Luz Gruber MD
--- NOTE | 2017-07-07 20:42 | PN ---
DATE: 07/07/2017 SUBJECTIVE: This patient still complains of pain in the epigastric area on liquid diet, now tolerating. No vomiting. PHYSICAL EXAMINATION: VITAL SIGNS: Afebrile, blood pressure 120/71, pulse 72, respirations 18, O2 saturation 96%. HEENT: Atraumatic and anicteric. NECK: Supple. HEART: S1 and S2 heard. LUNGS: Bilateral air entry present. ABDOMEN: Soft. There is tenderness present in the epigastric area. There is no rebound or guarding. EXTREMITIES: No cyanosis. No clubbing. NEUROLOGIC: Alert, oriented, and moves all the extremities. LABORATORY DATA: Heme, there is no recent labs. There is chemistry done, and is essentially unremarkable. The patient's imaging studies at the time of admission was reviewed. He had a CAT scan done, which showed a status post cholecystectomy, prominent bile duct was noticed. LFTs are normal. The patient has a long history of alcohol use more than 50 years. He also has long history of smoking. The patient also had an endoscopic evaluation, was more than three years ago. Could not remember all the details. We would recommend one is continue the PPI. MEDICATIONS: The patient is on aspirin and Plavix. ASSESSMENT AND PLAN: The patient has history of coronary artery bypass graft, status post percutaneous coronary intervention, history of chronic obstructive pulmonary disease, he has a history of carotid endarterectomy and peripheral neuropathy. Presently, on aspirin and Plavix. Also, this patient is on Carafate and also pantoprazole, continue that. We would request for an ultrasound scan MRCP to further evaluate the bile duct. Also consider EGD evaluation to rule out any ulcer disease. Thank you very much for allowing me to participate in the care of the patient. Jyoti Weaver MD [facility]
--- NOTE | 2017-07-07 21:21 | PN ---
DATE: 07/07/2017 LOCATION: The patient is in room 373, bed 2. This progress note is being dictated on behalf of Dr. Alejandra, whom I am covering. REASON FOR CONSULTATION: Coronary artery disease, abdominal pain. SUBJECTIVE: The patient is sitting in the bedside comfortably without any chest pain, shortness of breath, or palpitations. He is still complaining of abdominal pain. PHYSICAL EXAMINATION: VITAL SIGNS: Blood pressure 120/71, respirations 19, pulse 72, and temperature 98.4. HEENT: Head is normocephalic. Eyes; pupils are normal. Conjunctivae normal. Nose and throat normal. NECK: JVP is low. Carotids are equal. THORAX: AP diameter normal. LUNGS: Clear. CARDIOVASCULAR: S1 and S2. ABDOMEN: Soft. No tenderness. No organomegaly. Bowel sounds normal. EXTREMITIES: No clubbing. No cyanosis. LABORATORY DATA: WBC 5.8, hemoglobin 12.5, hematocrit 36.5, platelets 280. Sodium 134, potassium 4.6, BUN 7, creatinine 0.7, random glucose 85, calcium 9.1, phosphorus 3.1, and magnesium 1.8. Troponin x3 negative. DIAGNOSES: Abdominal pain, history of coronary artery disease, history of coronary artery bypass surgery, history of angioplasty with stent insertion, chronic obstructive pulmonary disease, hyperlipidemia, history of alcohol abuse, history of tobacco abuse, anemia. PLAN: The patient continues to complain of abdominal pain. From cardiac point of view, the patient is stable. No anginal symptom. The patient on Carafate 1 g p.o. at bedtime, Coreg 3.125 b.i.d., aspirin 81 mg daily, isosorbide mononitrate 30 mg daily, Lipitor 40 mg daily, Plavix 75 daily, Protonix 40 mg IV daily, Singulair 10 mg at bedtime, vitamin B 100 mg p.o. daily. We will discontinue telemetry. From tomorrow, Dr. Alejandra will follow the patient. Flor Crocker MD
[2017-07-07] MEDS: Sucralfate 1 gm/10 ml Oral Susp UD PO SCH (21:57)
[2017-07-08] MEDS: Morphine 2 mg/ml ISec IVP PRN ×4 (00:52→21:32)
[2017-07-08] MEDS: Albuterol-Ipratrop 3 mg / 0.5 (3 ml) UD IH PRN ×2 (07:19→13:48)
[2017-07-08] MEDS ORDERED: MethylPREDNISolone 40 mg Vial IVP SCH (07:45)
--- NOTE | 2017-07-08 08:32 | PN ---
DATE: SUBJECTIVE: Mr. Alexandra is a 62-year-old male admitted to the hospital with chest pain and abdominal pain. He was wheezing when he was admitted. He is a heavy alcoholic. He is still complaining of abdominal pain. He was evaluated by Cardiology. He has been stable. PAST MEDICAL HISTORY: Hypertension, hyperlipidemia, cardiac surgery, angioplasty, COPD. PAST SURGICAL HISTORY: Cholecystectomy and appendectomy. SOCIAL HISTORY: Active smoker and drink heavily. ALLERGIES: SHELLFISH AND SULFA. HOME MEDICATIONS: Nitroglycerin, Singulair, isosorbide mononitrate, folic acid, Plavix, Coreg, atorvastatin, aspirin 81 mg daily. REVIEW OF SYSTEMS: Still complaining of abdominal pain, epigastric pain. No nausea. No vomiting. Rest of 12-point review of system reviewed and negative. PHYSICAL EXAMINATION: GENERAL: Comfortable in bed, awake, alert, oriented. VITAL SIGNS: Heart rate is 70 per minute, respirations 18 per minute, blood pressure 102/60. HEENT: Pallor positive. NECK: No lymphadenopathy. CHEST: Air entry present, equal bilaterally. Bilateral rhonchi present. HEART: S1 and S2 normal. No murmur. No gallop. ABDOMEN: Soft, nontender. No hepatosplenomegaly. No rigidity. No guarding. NEUROLOGIC: Awake, alert, and oriented x3. No focal sensory motor deficit. EXTREMITIES: No edema. LABORATORY DATA: White count 5.8, hemoglobin 12.5, hematocrit 36.5, MCV 98, platelet count 280. Sodium 134, potassium 4.6, creatinine 0.4, LDH 447, coags normal. UA negative. ASSESSMENT: 1. Coronary artery disease. 2. Epigastric pain. 3. Chronic anemia. PLAN: He is being followed by Cardiology. Cardiovascular stable. Still complaining of epigastric pain. GI Dr. Weaver is following. Plan is to do MRCP to evaluate the CBD. He is also on thiamine, although no signs of withdrawal. We will continue Lipitor 40 mg daily. Continue Coreg 3.125 mg b.i.d., Continue aspirin, Plavix and isosorbide mononitrate. He is currently getting DuoNeb. Still has wheezing bilateral. We will give one dose of steroid, Solu-Medrol 30 mg one dose today. He is currently on Protonix 40 mg daily. Lluvia Whitten MD [facility] # [id number]
[2017-07-08] MEDS ORDERED: Gadodiamide 287 MG/ML VIAL (15ML) IV ONE (08:48)
--- NOTE | 2017-07-08 11:14 | MRI ---
MRCP and abdomen without and with IV contrast. Indication: Abdominal pain Technique: Multiplanar, multisequence MR images of the abdomen were obtained, including heavily T2 weighted MRCP images of the biliary system. Rotating maximum intensity projection images of the biliary system were generated images of the abdomen were obtained without and with IV contrast. . A total of 1191 images were submitted for review. Comparison: CT abdomen and pelvis with contrast performed 07/05/17 Findings: Cholecystectomy. Common bile duct appears dilated measuring up to 8 mm and tapers distally. Focal stricture or kink is noted within the mid common bile duct with linear filling defect above and below the point of stricture. This linear filling defect is not consistent with a calculus and is of unclear significance. There is no intrahepatic biliary ductal dilatation. The pancreatic duct appears does not appear dilated. No filling defects are seen in the pancreatic duct. Probable bilateral renal cysts, several lesions which are too small to definitively characterize. The liver, adrenal glands, spleen, and pancreas appear otherwise grossly unremarkable. The kidneys enhance symmetrically. No hydronephrosis or obstructing calculus identified. Indeterminate 14 mm exophytic left upper pole renal lesion appears T1/T2 hyperintense without evidence of post-contrast enhancement. Numerous too small to characterize probable bilateral renal cysts. No bulky abdominal lymphadenopathy is seen. No ascites. Partially imaged median sternotomy wires. Degenerative changes of the spine. Mild scoliosis Impression: Cholecystectomy. Common bile duct appears dilated measuring up to 8 mm and tapers distally. Focal stricture or kink is noted within the mid common bile duct with linear filling defect above and below the point of stricture. This linear filling defect is not consistent with a calculus and is of unclear significance. Indeterminate 14 mm exophytic left upper pole renal lesion appears T1/T2 hyperintense without evidence of post-contrast enhancement. This lesion is suspected to reflect complex cyst with hemorrhagic component. Recommend correlation with ultrasound. Additional findings as above.
--- NOTE | 2017-07-08 14:18 | PN ---
DATE: 07/08/2017 CARDIOLOGY FOLLOWUP SUBJECTIVE: The patient complains of abdominal pain. No angina. PHYSICAL EXAMINATION: VITAL SIGNS: Blood pressure 116/75 and heart rate in the 80s. NECK: Negative JVD. LUNGS: Without rales. HEART: Reveals S1 and S2. EXTREMITIES: Without edema. LABORATORY DATA: Troponins are negative x3. Hemoglobin is 12.5. IMPRESSION: 1. Recurrent abdominal pain. 2. History of pancreatitis. 3. Stable angina. 4. Coronary artery disease. 5. History of coronary artery bypass surgery. 6. Alcoholism. PLAN: Given these findings, there is no evidence for acute coronary syndrome. The patient's symptoms currently seemed to be GI in nature. I have discussed with the patient about his need to stop drinking alcohol. Lauro Alejandra MD
[2017-07-08] MEDS: Sucralfate 1 gm/10 ml Oral Susp UD PO SCH (21:27)
[2017-07-09] MEDS: Morphine 2 mg/ml ISec IVP PRN (08:17)
[2017-07-09 08:18] VITALS: BP 128/70; PULSE 71; RESP 18; TEMP 98.3; O2SAT 98
--- NOTE | 2017-07-09 09:47 | CP.PCM.PN ---
Subjective - Date & Time of Evaluation Date of Evaluation: 07/09/17 Time of Evaluation: 09:39 - Subjective Subjective: House Physician Resident Note Paged by nursing to patient's room. Nursing reports patient was demanding to leave against medical advice (AMA). As per nursing, patient was supposed to undergo endoscopy today, but has now decided that he doesn't want it to be done. Reason given to nursing was that his insurance wouldn't pay for it and he couldn't afford it, however when informed that leaving AMA would result in his insurance making him pay for the stay, he stated he didn't care, he just wanted to leave. Patient chart reviewed, then went to see patient and assessed. Patient was assessed at bedside as he was removing his hospital arm bands, and was awake, alert, and oriented x3 (self, location, year). He was informed of the risks of leaving against medical advice, including worsening of common bile duct dilation , infection of the bile duct, sepsis, and . Patient expressed understanding of these risks, but still insisted on signing out AMA. AMA paperwork filled out, signed by patient, and witnessed by nursing. Patient then left AMA. Message left with Dr. Whitten's service (PMD) notifying of patient leaving AMA. Jeovanny Lin Internal Medicine PGY-2 Objective - Vital Signs/Intake and Output Vital Signs (last 24 hours): Temp Pulse Resp BP Pulse Ox 98.3 F 71 18 128/70 98 07/09/17 08:00 07/09/17 08:00 07/09/17 08:00 07/09/17 08:00 07/09/17 08:00 Intake and Output: 07/09/17 07/09/17 06:59 18:59 Intake Total 1440 Balance 1440 - Medications Medications: Current Medications Albuterol/Ipratropium (Duoneb 3 Mg/0.5 Mg (3 Ml) Ud) 3 ml IH [id number] PRN PRN Reason: Shortness of Breath Last Admin: 07/08/17 13:48 Dose: 3 ml Aspirin (Ecotrin) 81 mg PO DAILY [facility] Last Admin: 07/08/17 11:30 Dose: 81 mg Atorvastatin Calcium (Lipitor) 40 mg PO DIN [facility] Last Admin: 07/08/17 17:12 Dose: 40 mg Carvedilol (Coreg) 3.125 mg PO BID [facility] Last Admin: 07/08/17 17:12 Dose: 3.125 mg Clopidogrel Bisulfate (Plavix) 75 mg PO DAILY [facility] Last Admin: 07/08/17 11:30 Dose: 75 mg Isosorbide Mononitrate (Imdur Er) 30 mg PO ACB [facility] Last Admin: 07/09/17 08:24 Dose: Not Given Montelukast Sodium (Singulair) 10 mg PO HS [facility] Last Admin: 07/08/17 21:27 Dose: 10 mg Morphine Sulfate (Morphine) 2 mg IVP Q4H PRN PRN Reason: Pain, moderate (4-7) Last Admin: 07/09/17 08:17 Dose: 2 mg Pantoprazole Sodium (Protonix Ec Tab) 40 mg PO DAILY [facility] Sucralfate (Carafate Oral Susp) 1 gm PO HS [facility] Last Admin: 07/08/17 21:27 Dose: 1 gm Thiamine HCl (Vitamin B1 Tab) 100 mg PO DAILY [facility] Last Admin: 07/08/17 11:30 Dose: 100 mg - Labs Labs: 07/06/17 08:00 07/07/17 07:30 PT 11.3 SECONDS (9.4-12.5) 07/05/17 16:30 INR 1.04 (0.93-1.08) 07/05/17 16:30 APTT 33.1 Seconds (25.1-36.5) 07/05/17 16:30
[2017-07-09] MEDS ORDERED: Pantoprazole 40 mg EC Tab PO SCH (10:00)
--- NOTE | 2017-07-09 11:37 | DS ---
SUMMARY: The patient left AMA before being seen. Communicated to me by the staff nurse, Ms. . Lluvia Whitten MD
== END 2017-07-09 09:57 | disposition left against medical advice (07) | DRG 88 ==
LOC: ED 15:01 → ERH 18:32 → 3RSO 20:14 → 5RSO 07-07 17:53
PROVIDERS: ADMIT Internal Medicine Medical Oncology; ATTEND Internal Medicine Medical Oncology
PROC: 3E0F7GC Introduction of Other Therapeutic Substance into Respiratory Tract, Via Natural or Artificial Opening (ICD-10-PCS; principal; 2017-07-06)
DX: J44.1 Chronic obstructive pulmonary disease with (acute) exacerbation (principal); G62.9 Polyneuropathy, unspecified; I25.118 Atherosclerotic heart disease of native coronary artery with other forms of angina pectoris; E78.5 Hyperlipidemia, unspecified; I10 Essential (primary) hypertension; F17.210 Nicotine dependence, cigarettes, uncomplicated; F10.20 Alcohol dependence, uncomplicated; D64.9 Anemia, unspecified; Z79.82 Long term (current) use of aspirin; Z91.14 Patient's other noncompliance with medication regimen; Z95.1 Presence of aortocoronary bypass graft; Z95.5 Presence of coronary angioplasty implant and graft; Z88.2 Allergy status to sulfonamides; Z91.013 Allergy to seafood

== ENCOUNTER 2017-07-14 19:29 | Observation (INO) | payer MEDICAID ==
[2017-07-14 19:30] VITALS: BMI 24.3
[2017-07-14 21:24] LABS: INR 1.04 (0.93-1.08); PARTIAL THROMBOPLASTIN TIME 31.4 Seconds (25.1-36.5)
[2017-07-14 21:32] LABS: BASO # 0.06 K/mm3 (0.0-2.0); BASO % 0.8 % (0.0-3.0); EOS # 0.3 (0.0-0.7); EOS % 3.7 % (1.5-5.0); GRAN # 3.82 (1.4-6.5); GRAN % 49.1 % (50.0-68.0); HEMATOCRIT 35.5 % (42.0-52.0); LYMPH # 2.8 (1.2-3.4); LYMPH % 36.4 % (22.0-35.0); MEAN CELL VOLUME 100.9 fl (80.0-105.0); MEAN CORPUSCULAR HEMOGLOBIN 33.8 pg (25.0-35.0); MEAN CORPUSCULAR HGB CONC 33.5 g/dl (31.0-37.0); MEAN PLATELET VOLUME 9.2 fl (7.0-11.0); MONO # 0.8 (0.1-0.6); WHITE BLOOD COUNT 7.8 10^3/ul (4.5-11.0)
[2017-07-14 21:34] LABS: ALB/GLOB RATIO 1.5 (1.1-1.8); ALKALINE PHOSPHATASE 64 U/L (38-126); ALT/SGPT 30 U/L (7-56); AST/SGOT 43 U/L (17-59); BILIRUBIN,DIRECT 0.3 mg/dL (0.0-0.4); BILIRUBIN,TOTAL 0.3 mg/dL (0.2-1.3); BLOOD UREA NITROGEN 11 mg/dL (7-21); CALCIUM 9.8 mg/dL (8.4-10.5); CARBON DIOXIDE 29 mmol/L (21-33); CHLORIDE 98 mmol/L (98-107); GFR AFRICAN-AMERICAN > 60; GLUCOSE,RANDOM 88 mg/dL (70-110); LIPASE 267 U/L (23-300); MAGNESIUM 1.8 mg/dL (1.7-2.2); POTASSIUM 4.7 mmol/L (3.6-5.0); SODIUM 135 mmol/L (132-148); TOTAL PROTEIN 6.9 g/dL (5.8-8.3); TROPONIN I < 0.01 ng/mL
--- NOTE | 2017-07-14 21:38 | ED PDOC ---
Arrival/HPI - General Chief Complaint: Abdominal Pain Time Seen by Provider: 07/14/17 19:31 Historian: Patient - History of Present Illness Narrative History of Present Illness (Text): 07/14/17 19:35 62 year old male, whose past medical history includes alcohol abuse, COPD, hypertension and CAD s/p stents (non compliant), who presents to the emergency department complaining of abdominal pain for that past 9 days. Patient states he was seen before and diagnosed with bile duct stricture, but signed out against medical advice. Patient came back today complaining of the same pain with no new complaints. Patient reports nausea, but denies any fever, chills, chest pain, shortness of breath, nausea, vomiting, diarrhea, urinary symptoms, back pain, neck pain, headache, dizziness, or any other complaints. PMD: Dr. Damon Time/Duration: Other (9 days) Symptom Onset: Gradual Symptom Course: Worsening Activities at Onset: Light Context: Home Past Medical History - Provider Review Nursing Documentation Reviewed: Yes - Past History Past History: No Previous - Infectious Disease Hx of Infectious Diseases: None - Tetanus Immunization Tetanus Immunization: Unknown - Cardiac Hx Cardiac Disorders: Yes ([place]) Hx Hypertension: Yes - Pulmonary Hx Chronic Obstructive Pulmonary Disease (COPD): Yes - Neurological Hx Neurological Disorder: No (denies) - HEENT Hx HEENT Disorder: Yes Hx Cataracts: Yes (right eye) Hx Glaucoma: No - Renal Hx Renal Disorder: No - Endocrine/Metabolic Hx Endocrine Disorders: No - Hematological/Oncological Hx Blood Disorders: Yes (blood transfusion) Hx Anemia: Yes Hx Cancer: No - Integumentary Hx Dermatological Disorder: No - Musculoskeletal/Rheumatological Hx Falls: No - Gastrointestinal Hx Gastrointestinal Disorders: Yes Hx Gall Bladder Disease: Yes (Gall stones removed) Hx Gastroesophageal Reflux: Yes - Genitourinary/Gynecological Hx Genitourinary Disorders: No (denies) - Psychiatric Hx Psychophysiologic Disorder: Yes Hx Anxiety: Yes Hx Substance Use: No - Surgical History Hx Cardiac Catheterization: Yes Hx Coronary Stent: Yes (x3) Hx Open Heart Surgery: Yes - Anesthesia Hx Anesthesia: Yes Hx Anesthesia Reactions: No Hx Malignant Hyperthermia: No - Suicidal Assessment Feels Threatened In Home Enviroment: No Family/Social History - Physician Review Nursing Documentation Reviewed: Yes Family/Social History: No Known Family HX Smoking Status: Current Some Days Smoker Hx Alcohol Use: Yes Hx Substance Use: No Substance used: HEROIN, MARIJUANA Hx Substance Use Treatment: No Allergies/Home Meds Allergies/Adverse Reactions: Allergies shellfish derived Allergy (Verified 07/05/17 15:55) ANAPHYLAXIS Sulfa (Sulfonamide Antibiotics) Allergy (Verified 07/05/17 15:55) RASH Home Medications: Home Meds Medication Instructions Recorded Confirmed Carvedilol [Coreg] 3.125 mg PO BID 02/21/17 07/14/17 Fluticasone/Salmeterol 500/50 1 puff IH DAILY 02/21/17 07/14/17 [Advair Diskus 500/50] Isosorbide Mononitrate [Isosorbide 30 mg PO DAILY 02/21/17 07/14/17 Mononitrate ER] Nitroglycerin [Nitrostat] 0.4 mg SL PRN PRN 02/21/17 07/14/17 Omeprazole 20 mg PO DAILY 02/21/17 07/14/17 Thiamine Mononitrate [Vitamin B-1] 100 mg PO DAILY 02/21/17 07/14/17 Ammonium Lactate [Deedee-Hydrolac] 1 appful TD DAILY 04/10/17 07/14/17 Betamethasone Dipropion Augmen 1 appful TD DAILY 04/10/17 07/14/17 [Diprolene AF 0.05%] Folic Acid 1 mg PO DAILY 04/10/17 07/14/17 Diclofenac Sodium [Voltaren] 1 appful TOP PRN PRN 04/18/17 07/14/17 Review of Systems - Physician Review All systems were reviewed & negative as marked: Yes - Review of Systems Constitutional: absent: Fevers, Other (Chills) Respiratory: absent: SOB Cardiovascular: absent: Chest Pain Gastrointestinal: Abdominal Pain, Nausea. absent: Diarrhea, Vomiting Genitourinary Male: absent: Dysuria, Frequency, Hematuria Musculoskeletal: absent: Back Pain, Neck Pain Neurological: absent: Headache, Dizziness Physical Exam Vital Signs Reviewed: Yes Vital Signs Temp Pulse Resp BP Pulse Ox 07/14/17 22:54 73 18 130/69 98 07/14/17 20:02 98.1 F 90 18 119/83 97 Temperature: Afebrile Blood Pressure: Normal Pulse: Regular Respiratory Rate: Normal Appearance: Positive for: Well-Appearing, Non-Toxic, Comfortable Pain Distress: None Mental Status: Positive for: Alert and Oriented X 3 - Systems Exam Head: Present: Atraumatic, Normocephalic Pupils: Present: PERRL Extroacular Muscles: Present: EOMI Conjunctiva: Present: Normal Mouth: Present: Moist Mucous Membranes Neck: Present: Normal Range of Motion Respiratory/Chest: Present: Clear to Auscultation, Good Air Exchange. No: Respiratory Distress, Accessory Muscle Use Cardiovascular: Present: Regular Rate and Rhythm, Normal S1, S2. No: Murmurs Abdomen: Present: Normal Bowel Sounds, Other (Epigastric pain). No: Tenderness , Distention, Peritoneal Signs Back: Present: Normal Inspection Upper Extremity: Present: Normal Inspection. No: Cyanosis, Edema Lower Extremity: Present: Normal Inspection. No: Edema Neurological: Present: GCS=15, CN II-XII Intact, Speech Normal Skin: Present: Warm, Dry, Normal Color. No: Rashes Psychiatric: Present: Alert, Oriented x 3, Normal Insight, Normal Concentration Medical Decision Making ED Course and Treatment: 07/14/17 19:35 Impression: 62 year old male presents complaining of epigatric abdominal pain. Patient was recently seen and diagnosed with bile duct stricture. Plan: -- EKG -- Labs -- Protonix Inj -- Zofran Inj -- Urinalysis -- Reassess and disposition Prior Visits: Notes and results from previous visits were reviewed. Patient was last seen in the emergency department on 07/05/17 presents complaining of upper abdominal pain that began 2 days ago. Progress Notes: EKG shows NSR at [address]/T changes. Interpreted by me. 07/14/17 22:40 Discussed case with hospitalist Dr. Ott who requests hospitalist admission Discussed case with Dr. Weaver request GI service consult. GI fellow states if persistent pain and to admit for GI evaluation. Discussed case with Dr. Roth who is aware and agrees with the plan. Accepts patient. 07/15/17 01:45 - Lab Interpretations Lab Results: 07/14/17 20:35 07/14/17 20:35 Lab Results 07/14/17 20:35: Sodium 135, Potassium 4.7, Chloride 98, Carbon Dioxide 29, Anion Gap 13, BUN 11, Creatinine 0.7 L, Est GFR ( Amer) > 60, Est GFR ( Non-Af Amer) > 60, Random Glucose 88, Calcium 9.8, Magnesium 1.8, Total Bilirubin 0.3, Direct Bilirubin 0.3, AST 43, ALT 30, Alkaline Phosphatase 64, Lactate Dehydrogenase 440, Total Creatine Kinase 119, Troponin I < 0.01, Total Protein 6.9, Albumin 4.2, Globulin 2.7, Albumin/Globulin Ratio 1.5, Lipase 267 07/14/17 20:35: PT 11.4, INR 1.04, APTT 31.4 07/14/17 20:35: WBC 7.8 D, RBC 3.52, Hgb 11.9 L, Hct 35.5 L, MCV 100.9, MCH 33.8, MCHC 33.5, RDW 14.0, Plt Count 295, MPV 9.2, Gran % 49.1 L, Lymph % (Auto ) 36.4 H, [place] % (Auto) 10.0 H, Eos % (Auto) 3.7, Baso % (Auto) 0.8, Gran # 3.82 , Lymph # 2.8, [place] # 0.8 H, Eos # 0.3, Baso # 0.06 I have reviewed the lab results: Yes - EKG Interpretation Interpreted by ED Physician: Yes Type: 12 lead EKG - Medication Orders Current Medication Orders: Albuterol Sulfate (Albuterol 0.083% Inhal Lidya (2.5 Mg/3 Ml) Ud) 2.5 mg IH [id number] [facility] Arformoterol Tartrate (Brovana) 15 mcg IH 0800 [facility] Aspirin (Ecotrin) 81 mg PO DAILY [facility] Atorvastatin Calcium (Lipitor) 40 mg PO DIN [facility] Betamethasone Dipropion Augmented (Diprolene Af) 0 gm TOP DAILY [facility] Budesonide (Pulmicort Respules) 1 mg IH 0800 [facility] Carvedilol (Coreg) 3.125 mg PO BID [facility] Clopidogrel Bisulfate (Plavix) 75 mg PO DAILY [facility] Cyclobenzaprine HCl (Flexeril) 5 mg PO Q12H PRN PRN Reason: Pain, severe (8-10) Last Admin: 07/15/17 00:35 Dose: 5 mg Docusate Sodium (Colace) 100 mg PO BID [facility] Famotidine (Pepcid) 40 mg PO HS [facility] Folic Acid (Folic Acid) 1 mg PO DAILY [facility] Isosorbide Mononitrate (Imdur Er) 30 mg PO ACB [facility] Lactic Acid (Lac-Hydrin 12% Cream (140 G)) 0 ea EXT DAILY [facility] Montelukast Sodium (Singulair) 10 mg PO HS [facility] Nicotine (Nicoderm Cq) 1 patch TD DAILY [facility] Nitroglycerin (Nitrostat Sl Tab) 0.4 mg SL Q5MIN PRN PRN Reason: pain Ondansetron HCl (Zofran Inj) 4 mg IVP Q4H PRN PRN Reason: Nausea/Vomiting Last Admin: 07/15/17 00:55 Dose: 4 mg IVP Administration Document 07/15/17 00:55 SD (Rec: 07/15/17 00:55 SD [place] [id number]) Charges for Administration # of IVP Administrations 1 Oxycodone/Acetaminophen (Percocet 5/325 Mg Tab) 1 tab PO Q6H PRN PRN Reason: Pain, moderate (4-7) Stop: 07/18/17 00:43 Last Admin: 07/15/17 00:54 Dose: 1 tab MAR Pain Assessment Document 07/15/17 00:54 SD (Rec: 07/15/17 00:54 SD [place] [id number]) Pain Reassessment Is this a pain reassessment? No Sleep Is patient sleeping during reassessment? No Presence of Pain Presence of Pain Yes Pain Scale Used Pain Scale Used Numeric Thiamine HCl (Vitamin B1 Tab) 100 mg PO DAILY [facility] Discontinued Medications Albuterol/Ipratropium (Duoneb 3 Mg/0.5 Mg (3 Ml) Ud) 3 ml IH TIDRESP [facility] Ondansetron HCl (Zofran Inj) 4 mg IVP STAT STA Stop: 07/14/17 20:11 Last Admin: 07/14/17 20:45 Dose: 4 mg IVP Administration Document 07/14/17 20:45 RD (Rec: 07/14/17 21:00 RD [id number]) Charges for Administration # of IVP Administrations 1 Pantoprazole Sodium (Protonix Inj) 40 mg IVP STAT STA Stop: 07/14/17 20:11 Last Admin: 07/14/17 20:40 Dose: 40 mg IVP Administration Document 07/14/17 20:40 RD (Rec: 07/14/17 21:00 RD [id number]) Charges for Administration # of IVP Administrations 1 - Scribe Statement The provider has reviewed the documentation as recorded by the Arina Rice Provider Scribe Attestation: All medical record entries made by the Sarahibinga were at my direction and personally dictated by me. I have reviewed the chart and agree that the record accurately reflects my personal performance of the history, physical exam, medical decision making, and the department course for this patient. I have also personally directed, reviewed, and agree with the discharge instructions and disposition. Disposition/Present on Arrival - Present on Arrival Any Indicators Present on Arrival: No History of DVT/PE: No History of Uncontrolled Diabetes: No Urinary Catheter: No History of Decub. Ulcer: No History Surgical Site Infection Following: None - Disposition Have Diagnosis and Disposition been Completed?: Yes Diagnosis: Bile duct stricture Disposition: HOSPITALIZED Disposition Time: 01:30 Condition: STABLE
[2017-07-14] MEDS ORDERED: Albuterol-Ipratrop 3 mg / 0.5 (3 ml) UD IH SCH (23:30)
[2017-07-14 23:32] LABS: URINE BILIRUBIN NEGATIVE (NEGATIVE); URINE BLOOD NEGATIVE (NEGATIVE); URINE GLUCOSE (UA) NEGATIVE (NEGATIVE); URINE KETONE NEGATIVE (NEGATIVE); URINE LEUKOCYTE ESTERASE NEGATIVE Leu/uL (NEGATIVE); URINE PROTEIN NEGATIVE mg/dL (<30 mg/dL); URINE UROBILINOGEN 0.2 E.U./dL (<1 E.U./dL)
[2017-07-14 23:35] LABS: URINE APPEARANCE CLEAR (CLEAR); URINE COLOR YELLOW (YELLOW)
[2017-07-15] MEDS: Oxycodone/Acetaminophen 5/325 mg Tab PO PRN ×3 (00:54→21:36)
--- NOTE | 2017-07-15 00:55 | CP.PCM.HP ---
History of Present Illness - History of Present Illness History of Present Illness: 62 year old male, whose past medical history includes alcohol abuse, COPD, hypertension and CAD s/p stents (non compliant), who presents to the emergency department complaining of left sided abdominal pain, worse when passing a BM, and admits to associated nausea, but no vomiting, melena, or hematochezia. Patient states he was seen before and diagnosed with bile duct stricture, but signed out against medical advice due to personal matters. He denies any cough, chest pain, pruritus, jaundice, epigastric pain, dyspnea, or headache at the time of admission. PMD: Dr. Damon PMH: COPD, hypertension, CAD, alcoholism, tobacco abuse, homelessness PSH: Cholecystecomy Allergies: Shellfish dervied substances, Sulfa Social: Smoker, drinker, homeless Present on Admission - Present on Admission Any Indicators Present on Admission: No Review of Systems - Constitutional Constitutional: As Per HPI Past Patient History - Infectious Disease Hx of Infectious Diseases: None - Tetanus Immunizations Tetanus Immunization: Unknown - Past Medical History & Family History Past Medical History?: Yes - Past Social History Smoking Status: Current Some Days Smoker - CARDIAC Hx Cardiac Disorders: Yes ([place]) Hx Hypertension: Yes - PULMONARY Hx Chronic Obstructive Pulmonary Disease (COPD): Yes - NEUROLOGICAL Hx Neurological Disorder: No (denies) - HEENT Hx HEENT Problems: Yes Hx Cataracts: Yes (right eye) Hx Glaucoma: No - RENAL Hx Chronic Kidney Disease: No - ENDOCRINE/METABOLIC Hx Endocrine Disorders: No - HEMATOLOGICAL/ONCOLOGICAL Hx Blood Disorders: Yes (blood transfusion) Hx Anemia: Yes Hx Cancer: No - INTEGUMENTARY Hx Dermatological Problems: No - MUSCULOSKELETAL/RHEUMATOLOGICAL Hx Falls: No - GASTROINTESTINAL Hx Gastrointestinal Disorders: Yes Hx Gall Bladder Disease: Yes (Gall stones removed) Hx Gastroesophageal Reflux: Yes - GENITOURINARY/GYNECOLOGICAL Hx Genitourinary Disorders: No (denies) - PSYCHIATRIC Hx Psychophysiologic Disorder: Yes Hx Anxiety: Yes Hx Substance Use: No - SURGICAL HISTORY Hx Cardiac Catheterization: Yes Hx Coronary Stent: Yes (x3) Hx Open Heart Surgery: Yes - ANESTHESIA Hx Anesthesia: Yes Hx Anesthesia Reactions: No Hx Malignant Hyperthermia: No Meds Allergies/Adverse Reactions: Allergies Allergy/AdvReac Type Severity Reaction Status Date / Time shellfish derived Allergy ANAPHYLAXIS Verified 07/05/17 15:55 Sulfa (Sulfonamide Allergy RASH Verified 07/05/17 15:55 Antibiotics) Physical Exam - Constitutional Appears: Well, Non-toxic - Head Exam Head Exam: ATRAUMATIC, NORMOCEPHALIC - Eye Exam Eye Exam: EOMI, Normal appearance - ENT Exam ENT Exam: Mucous Membranes Moist, Normal Oropharynx - Neck Exam Neck exam: Positive for: Normal Inspection - Respiratory Exam Respiratory Exam: Clear to Auscultation Bilateral, NORMAL BREATHING PATTERN. absent: Rales, Wheezes - Cardiovascular Exam Cardiovascular Exam: RRR, +S1, +S2 - GI/Abdominal Exam GI & Abdominal Exam: Normal Bowel Sounds, Soft, Tenderness (left side). absent : Rebound - Extremities Exam Extremities exam: Positive for: normal capillary refill, normal inspection, pedal pulses present. Negative for: calf tenderness - Back Exam Back exam: NORMAL INSPECTION. absent: CVA tenderness (L), CVA tenderness (R) - Neurological Exam Neurological exam: Alert, CN II-XII Intact, Oriented x3 - Psychiatric Exam Psychiatric exam: Agitated - Skin Skin Exam: Dry, Intact, Normal Color, Warm Results - Vital Signs Recent Vital Signs: Last Vital Signs Temp 98.1 F 07/14/17 20:02 Pulse 73 07/14/17 22:54 Resp 18 07/14/17 22:54 BP 130/69 07/14/17 22:54 Pulse Ox 98 07/14/17 22:54 - Labs Result Diagrams: 07/14/17 20:35 07/14/17 20:35 Labs: Laboratory Results - last 24 hr 07/14/17 23:00 Urine Color Yellow Urine Appearance Clear Urine pH 7.0 Ur Specific [place] <= 1.005 Urine Protein Negative Urine Glucose (UA) Negative Urine Ketones Negative Urine Blood Negative Urine Nitrate Negative Urine Bilirubin Negative Urine Urobilinogen 0.2 Ur Leukocyte Esterase Negative Assessment & Plan - Assessment and Plan (Free Text) Assessment: 1) Abdominal pain - GI consulted, Dr. Thapa - Shiraz q4h for nausea - Percocet 5 mg q6h PRN for pain - Colace 100 mg BID [facility] 2) CAD - Cont home Carvedilol - Consider Cardiology consult - CBC, CMP, Mg, Phos 3) COPD - Cont duoneb, Brovana, Pulmicort - O2 NC 2L prn with goal of SaO2 90-94% 4. GI/DVT ppx - Pepcid and SCDs Plan: 1) Abdominal pain - GI consulted, Dr. 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
[2017-07-15] MEDS ORDERED: Albuterol 0.083% Inhal Sol (2.5 mg/3 mL) UD IH SCH ×2 (02:00→03:01)
[2017-07-15] MEDS: Albuterol 0.083% Inhal Sol (2.5 mg/3 mL) UD IH SCH ×4 (03:00→21:30)
[2017-07-15] MEDS: Arformoterol 15 mcg/2 ml Inh Sol IH SCH (08:15)
[2017-07-15] MEDS: Budesonide 0.5 mg/2 ml Inhal Susp UD IH SCH (08:15)
--- NOTE | 2017-07-15 08:48 | CARD ---
APPROVED REPORT EKG Measurement Heart [id number] <Conclusion> Normal sinus rhythm ST elevations V 2 - V6, 2,3,F c/w early repolarization but more pronounced than the prior ECG 07/05/17. Suggest clinical correlation.
[2017-07-15] MEDS: Betamethasone Dip 0.05% Cream(15 gm) TOP SCH (09:34)
[2017-07-15] MEDS: Ammonium Lactate 12% Cream (140 g) EXT SCH (09:36)
[2017-07-15] MEDS ORDERED: Fluticasone-Salmeterol 500-50mcg Diskus IH SCH (10:00)
[2017-07-15] MEDS: POLYETHYLENE GLYCOL 3350 17 GM/Dose PACKET PO SCH ×2 (11:32→17:55)
--- NOTE | 2017-07-15 11:33 | CP.PCM.CON ---
<Sara Barajas - Last Filed: 07/15/17 11:24> History of Present Illness - History of Present Illness History of Present Illness: GI Fellow PGY4 Consult Note This is a 62 year old male, whose past medical history includes alcohol abuse, COPD, hypertension and CAD s/p stents, who presents to the emergency department complaining of left sided abdominal pain associated nausea, but no vomiting, melena, or hematochezia. Pt reports being constipated for 2 weeks with hard stool going 2-3days. Patient was seen before and diagnosed with bile duct stricture on MRCP 07/07/18 and was recommended EUS, but signed out against medical advice due to personal matters. Pt endorses 10 pound unintentional weightloss over 1 month. He drinks 2/5 bottle of hard liquor everyday since age 7, last drink was Saturday. He denies any fevers, chills, pruritus, jaundice, epigastric pain. Reports prior EGD/Colonoscopy but no records and unable to recall results. ROS: A 12pt ROS was negative except as above. PMH: COPD, hypertension, CAD, alcoholism, tobacco abuse, homelessness PSH: Cholecystecomy FHx: Denies colon cancer SHx: Smoker, drinks 2/5 bottle of hard liquor everyday since age 7, homeless Past Patient History - Infectious Disease Hx of Infectious Diseases: None - Tetanus Immunizations Tetanus Immunization: Unknown - Past Medical History & Family History Past Medical History?: Yes - Past Social History Smoking Status: Current Some Days Smoker - CARDIAC Hx Cardiac Disorders: Yes (OR) Hx Hypertension: Yes - PULMONARY Hx Chronic Obstructive Pulmonary Disease (COPD): Yes - NEUROLOGICAL Hx Neurological Disorder: No (denies) - HEENT Hx HEENT Problems: Yes Hx Cataracts: Yes (right eye) Hx Glaucoma: No - RENAL Hx Chronic Kidney Disease: No - ENDOCRINE/METABOLIC Hx Endocrine Disorders: No - HEMATOLOGICAL/ONCOLOGICAL Hx Blood Disorders: Yes (blood transfusion) Hx Anemia: Yes Hx Cancer: No - INTEGUMENTARY Hx Dermatological Problems: No - MUSCULOSKELETAL/RHEUMATOLOGICAL Hx Falls: No - GASTROINTESTINAL Hx Gastrointestinal Disorders: Yes Hx Gall Bladder Disease: Yes (Gall stones removed) Hx Gastroesophageal Reflux: Yes - GENITOURINARY/GYNECOLOGICAL Hx Genitourinary Disorders: No (denies) - PSYCHIATRIC Hx Psychophysiologic Disorder: Yes Hx Anxiety: Yes Hx Substance Use: No - SURGICAL HISTORY Hx Cardiac Catheterization: Yes Hx Coronary Stent: Yes (x3) Hx Open Heart Surgery: Yes - ANESTHESIA Hx Anesthesia: Yes Hx Anesthesia Reactions: No Hx Malignant Hyperthermia: No Meds Allergies/Adverse Reactions: Allergies Allergy/AdvReac Type Severity Reaction Status Date / Time shellfish derived Allergy ANAPHYLAXIS Verified 07/05/17 15:55 Sulfa (Sulfonamide Allergy RASH Verified 07/05/17 15:55 Antibiotics) - Medications Medications: Current Medications Albuterol Sulfate (Albuterol 0.083% Inhal Lidya (2.5 Mg/3 Ml) Ud) 2.5 mg IH [id number] [facility] Last Admin: 07/15/17 08:15 Dose: 2.5 mg Arformoterol Tartrate (Brovana) 15 mcg IH 0800 [facility] Last Admin: 07/15/17 08:15 Dose: 15 mcg Aspirin (Ecotrin) 81 mg PO DAILY [facility] Last Admin: 07/15/17 09:35 Dose: 81 mg Atorvastatin Calcium (Lipitor) 40 mg PO DIN [facility] Betamethasone Dipropion Augmented (Diprolene Af) 0 gm TOP DAILY [facility] Last Admin: 07/15/17 09:34 Dose: 1 applic Budesonide (Pulmicort Respules) 1 mg IH 0800 [facility] Last Admin: 07/15/17 08:15 Dose: 1 mg Carvedilol (Coreg) 3.125 mg PO BID [facility] Last Admin: 07/15/17 09:33 Dose: 3.125 mg Clopidogrel Bisulfate (Plavix) 75 mg PO DAILY [facility] Last Admin: 07/15/17 09:38 Dose: 75 mg Cyclobenzaprine HCl (Flexeril) 5 mg PO Q12H PRN PRN Reason: Pain, severe (8-10) Last Admin: 07/15/17 00:35 Dose: 5 mg Docusate Sodium (Colace) 100 mg PO BID [facility] Last Admin: 07/15/17 09:33 Dose: 100 mg Famotidine (Pepcid) 40 mg PO HS [facility] Folic Acid (Folic Acid) 1 mg PO DAILY [facility] Last Admin: 07/15/17 09:36 Dose: 1 mg Isosorbide Mononitrate (Imdur Er) 30 mg PO ACB [facility] Last Admin: 07/15/17 09:36 Dose: 30 mg Lactic Acid (Lac-Hydrin 12% Cream (140 G)) 0 ea EXT DAILY [facility] Last Admin: 07/15/17 09:36 Dose: 1 applic Montelukast Sodium (Singulair) 10 mg PO HS [facility] Nicotine (Nicoderm Cq) 1 patch TD DAILY [facility] Last Admin: 07/15/17 09:37 Dose: 1 patch Nitroglycerin (Nitrostat Sl Tab) 0.4 mg SL Q5MIN PRN PRN Reason: pain Ondansetron HCl (Zofran Inj) 4 mg IVP Q4H PRN PRN Reason: Nausea/Vomiting Last Admin: 07/15/17 00:55 Dose: 4 mg Oxycodone/Acetaminophen (Percocet 5/325 Mg Tab) 1 tab PO Q6H PRN PRN Reason: Pain, moderate (4-7) Stop: 07/18/17 00:43 Last Admin: 07/15/17 00:54 Dose: 1 tab Pantoprazole Sodium (Protonix Ec Tab) 40 mg PO 0600 [facility] Polyethylene Glycol (Miralax) 17 gm PO BID [facility] Thiamine HCl (Vitamin B1 Tab) 100 mg PO DAILY [facility] Last Admin: 07/15/17 09:38 Dose: 100 mg Physical Exam - Constitutional Appears: Non-toxic, No Acute Distress - Head Exam Head Exam: ATRAUMATIC, NORMAL INSPECTION, NORMOCEPHALIC - Eye Exam Eye Exam: EOMI, Normal appearance, PERRL - ENT Exam ENT Exam: Normal Exam - Respiratory Exam Respiratory Exam: NORMAL BREATHING PATTERN - Cardiovascular Exam Cardiovascular Exam: REGULAR RHYTHM - GI/Abdominal Exam GI & Abdominal Exam: Normal Bowel Sounds, Soft, Tenderness. absent: Distended, Guarding - Extremities Exam Extremities exam: Positive for: full ROM - Back Exam Back exam: NORMAL INSPECTION - Neurological Exam Neurological exam: Alert, Oriented x3 - Psychiatric Exam Psychiatric exam: Normal Affect, Normal Mood - Skin Skin Exam: Dry, Intact, Normal Color, Warm Results - Vital Signs Recent Vital Signs: Last Vital Signs Temp 98 F 07/15/17 08:18 Pulse 73 07/15/17 10:00 Resp 20 07/15/17 08:18 BP 105/60 07/15/17 09:33 Pulse Ox 95 07/15/17 08:18 - Labs Result Diagrams: 07/14/17 20:35 07/14/17 20:35 Labs: Laboratory Results - last 24 hr 07/14/17 23:00 Urine Color Yellow Urine Appearance Clear Urine pH 7.0 Ur Specific [place] <= 1.005 Urine Protein Negative Urine Glucose (UA) Negative Urine Ketones Negative Urine Blood Negative Urine Nitrate Negative Urine Bilirubin Negative Urine Urobilinogen 0.2 Ur Leukocyte Esterase Negative Assessment & Plan - Assessment and Plan (Free Text) Assessment: This is a 62yM presenting with LLQ abdominal pain. 1. Abdominal pain 2. Constipation 3. CBD with possible stricture on MRCP 4. GERD 5. Etoh abuse Plan: -Continue supportive with pain control and anti-emetics -Abdominal pain likely from constipation, aggressive bowel regimen with miralax bid -PPI daily for GERD -Advance diet as tolerated -Pt will need EUS as an outpt to r/o underlying malignancy in setting of weightloss and etoh abuse -No signs of cholangitis, no fevers, LFTS wnl -Etoh cessation advised -Will continue to follow closely <Scotty Hernandez - Last Filed: 07/15/17 12:20> Meds - Medications Medications: Current Medications Albuterol Sulfate (Albuterol 0.083% Inhal Lidya (2.5 Mg/3 Ml) Ud) 2.5 mg IH [id number] [facility] Last Admin: 07/15/17 08:15 Dose: 2.5 mg Arformoterol Tartrate (Brovana) 15 mcg IH 0800 [facility] Last Admin: 07/15/17 08:15 Dose: 15 mcg Aspirin (Ecotrin) 81 mg PO DAILY [facility] Last Admin: 07/15/17 09:35 Dose: 81 mg Atorvastatin Calcium (Lipitor) 40 mg PO DIN [facility] Betamethasone Dipropion Augmented (Diprolene Af) 0 gm TOP DAILY [facility] Last Admin: 07/15/17 09:34 Dose: 1 applic Budesonide (Pulmicort Respules) 1 mg IH 0800 [facility] Last Admin: 07/15/17 08:15 Dose: 1 mg Carvedilol (Coreg) 3.125 mg PO BID [facility] Last Admin: 07/15/17 09:33 Dose: 3.125 mg Clopidogrel Bisulfate (Plavix) 75 mg PO DAILY [facility] Last Admin: 07/15/17 09:38 Dose: 75 mg Cyclobenzaprine HCl (Flexeril) 5 mg PO Q12H PRN PRN Reason: Pain, severe (8-10) Last Admin: 07/15/17 00:35 Dose: 5 mg Docusate Sodium (Colace) 100 mg PO BID [facility] Last Admin: 07/15/17 09:33 Dose: 100 mg Famotidine (Pepcid) 40 mg PO HS [facility] Folic Acid (Folic Acid) 1 mg PO DAILY [facility] Last Admin: 07/15/17 09:36 Dose: 1 mg Isosorbide Mononitrate (Imdur Er) 30 mg PO ACB [facility] Last Admin: 07/15/17 09:36 Dose: 30 mg Lactic Acid (Lac-Hydrin 12% Cream (140 G)) 0 ea EXT DAILY [facility] Last Admin: 07/15/17 09:36 Dose: 1 applic Montelukast Sodium (Singulair) 10 mg PO HS [facility] Nicotine (Nicoderm Cq) 1 patch TD DAILY [facility] Last Admin: 07/15/17 09:37 Dose: 1 patch Nitroglycerin (Nitrostat Sl Tab) 0.4 mg SL Q5MIN PRN PRN Reason: pain Ondansetron HCl (Zofran Inj) 4 mg IVP Q4H PRN PRN Reason: Nausea/Vomiting Last Admin: 07/15/17 00:55 Dose: 4 mg Oxycodone/Acetaminophen (Percocet 5/325 Mg Tab) 1 tab PO Q6H PRN PRN Reason: Pain, moderate (4-7) Stop: 07/18/17 00:43 Last Admin: 07/15/17 00:54 Dose: 1 tab Pantoprazole Sodium (Protonix Ec Tab) 40 mg PO 0600 [facility] Polyethylene Glycol (Miralax) 17 gm PO BID [facility] Last Admin: 07/15/17 11:32 Dose: 17 gm Thiamine HCl (Vitamin B1 Tab) 100 mg PO DAILY [facility] Last Admin: 07/15/17 09:38 Dose: 100 mg Results - Vital Signs Recent Vital Signs: Last Vital Signs Temp 98 F 07/15/17 08:18 Pulse 73 07/15/17 10:00 Resp 20 07/15/17 08:18 BP 105/60 07/15/17 09:33 Pulse Ox 95 07/15/17 08:18 - Labs Result Diagrams: 07/14/17 20:35 07/14/17 20:35 Labs: Laboratory Results - last 24 hr 07/14/17 23:00 Urine Color Yellow Urine Appearance Clear Urine pH 7.0 Ur Specific [place] <= 1.005 Urine Protein Negative Urine Glucose (UA) Negative Urine Ketones Negative Urine Blood Negative Urine Nitrate Negative Urine Bilirubin Negative Urine Urobilinogen 0.2 Ur Leukocyte Esterase Negative Attending/Attestation - Attestation I have personally seen and examined this patient.: Yes I have fully participated in the care of the patient.: Yes I have reviewed all pertinent clinical information: Yes Notes (Text): 07/15/17 12:18 62 year old male with h/o etoh abuse admitted with llq abdominal pain. He also report gerd symptoms and constipation. CT and MRI reviewed. CBD dilation noted. LFTs are normal. Would recommend supportive measures including PPI and bowel regimen. Advance diet as tolerated. Recommend outpatient EUS for eval of CBD, although may just be post cholecystectomy dilation. No panc lesion noted on imaging.
[2017-07-16] MEDS: Albuterol 0.083% Inhal Sol (2.5 mg/3 mL) UD IH SCH ×4 (03:00→19:16)
[2017-07-16] MEDS: Oxycodone/Acetaminophen 5/325 mg Tab PO PRN (05:12)
[2017-07-16] MEDS ORDERED: Pantoprazole 40 mg EC Tab PO SCH (06:00)
[2017-07-16] MEDS: Budesonide 0.5 mg/2 ml Inhal Susp UD IH SCH (07:15)
[2017-07-16] MEDS: Arformoterol 15 mcg/2 ml Inh Sol IH SCH (07:15)
[2017-07-16] MEDS: Betamethasone Dip 0.05% Cream(15 gm) TOP SCH (09:11)
[2017-07-16] MEDS: Ammonium Lactate 12% Cream (140 g) EXT SCH (09:11)
[2017-07-16] MEDS: POLYETHYLENE GLYCOL 3350 17 GM/Dose PACKET PO SCH ×3 (09:12→17:30)
[2017-07-16 09:37] LABS: BASO # 0.03 K/mm3 (0.0-2.0); BASO % 0.5 % (0.0-3.0); EOS # 0.2 (0.0-0.7); EOS % 2.9 % (1.5-5.0); GRAN # 2.83 (1.4-6.5); HEMATOCRIT 37.5 % (42.0-52.0); LYMPH # 1.9 (1.2-3.4); LYMPH % 34.2 % (22.0-35.0); MEAN CELL VOLUME 101.1 fl (80.0-105.0); MEAN CORPUSCULAR HGB CONC 33.6 g/dl (31.0-37.0); MEAN PLATELET VOLUME 8.8 fl (7.0-11.0); MONO # 0.6 (0.1-0.6); MONO % 10.4 % (1.0-6.0); WHITE BLOOD COUNT 5.5 10^3/ul (4.5-11.0)
[2017-07-16 09:51] LABS: ALB/GLOB RATIO 1.6 (1.1-1.8); ALKALINE PHOSPHATASE 64 U/L (38-126); ALT/SGPT 26 U/L (7-56); AST/SGOT 32 U/L (17-59); BILIRUBIN,TOTAL 0.4 mg/dL (0.2-1.3); BLOOD UREA NITROGEN 12 mg/dL (7-21); CARBON DIOXIDE 27 mmol/L (21-33); CHLORIDE 98 mmol/L (98-107); GFR AFRICAN-AMERICAN > 60; GLUCOSE,RANDOM 96 mg/dL (70-110); MAGNESIUM 1.8 mg/dL (1.7-2.2); PHOSPHOROUS 4.4 mg/dL (2.5-4.5); POTASSIUM 4.4 mmol/L (3.6-5.0); SODIUM 134 mmol/L (132-148); TOTAL PROTEIN 7.2 g/dL (5.8-8.3)
--- NOTE | 2017-07-16 10:39 | CP.PCM.PN ---
<Puja Heath - Last Filed: 07/16/17 10:47> Subjective - Date & Time of Evaluation Date of Evaluation: 07/16/17 Time of Evaluation: 08:30 - Subjective Subjective: PGY 4 GI Follow-up Pt seen and examined bedside Complaining of mild LUQ pain + BM + Flatus tolerating diet ROS: 10 point ROS conducted, neg other than above Objective - Vital Signs/Intake and Output Vital Signs (last 24 hours): Temp Pulse Resp BP Pulse Ox 98.5 F 67 22 108/62 98 07/16/17 08:11 07/16/17 08:11 07/16/17 08:11 07/16/17 08:11 07/15/17 16:36 Intake and Output: 07/16/17 07/16/17 06:59 18:59 Intake Total 100 Balance 100 - Medications Medications: Current Medications Albuterol Sulfate (Albuterol 0.083% Inhal Lidya (2.5 Mg/3 Ml) Ud) 2.5 mg IH [id number] [facility] Last Admin: 07/16/17 07:15 Dose: 2.5 mg Arformoterol Tartrate (Brovana) 15 mcg IH 0800 [facility] Last Admin: 07/16/17 07:15 Dose: 15 mcg Aspirin (Ecotrin) 81 mg PO DAILY [facility] Last Admin: 07/16/17 09:11 Dose: 81 mg Atorvastatin Calcium (Lipitor) 40 mg PO DIN [facility] Last Admin: 07/15/17 17:55 Dose: 40 mg Betamethasone Dipropion Augmented (Diprolene Af) 0 gm TOP DAILY [facility] Last Admin: 07/15/17 09:34 Dose: 1 applic Budesonide (Pulmicort Respules) 1 mg IH 0800 [facility] Last Admin: 07/16/17 07:15 Dose: 1 mg Carvedilol (Coreg) 3.125 mg PO BID [facility] Last Admin: 07/15/17 17:55 Dose: Not Given Clopidogrel Bisulfate (Plavix) 75 mg PO DAILY [facility] Last Admin: 07/16/17 09:11 Dose: 75 mg Cyclobenzaprine HCl (Flexeril) 5 mg PO Q12H PRN PRN Reason: Pain, severe (8-10) Last Admin: 07/15/17 00:35 Dose: 5 mg Docusate Sodium (Colace) 100 mg PO BID [facility] Last Admin: 07/16/17 09:11 Dose: 100 mg Famotidine (Pepcid) 40 mg PO HS [facility] Last Admin: 07/15/17 21:33 Dose: 40 mg Folic Acid (Folic Acid) 1 mg PO DAILY [facility] Last Admin: 07/16/17 09:11 Dose: 1 mg Isosorbide Mononitrate (Imdur Er) 30 mg PO ACB [facility] Last Admin: 07/16/17 09:11 Dose: 30 mg Lactic Acid (Lac-Hydrin 12% Cream (140 G)) 0 ea EXT DAILY [facility] Last Admin: 07/15/17 09:36 Dose: 1 applic Montelukast Sodium (Singulair) 10 mg PO HS [facility] Last Admin: 07/15/17 21:33 Dose: 10 mg Nicotine (Nicoderm Cq) 1 patch TD DAILY [facility] Last Admin: 07/16/17 09:12 Dose: 1 patch Nitroglycerin (Nitrostat Sl Tab) 0.4 mg SL Q5MIN PRN PRN Reason: pain Ondansetron HCl (Zofran Inj) 4 mg IVP Q4H PRN PRN Reason: Nausea/Vomiting Last Admin: 07/15/17 00:55 Dose: 4 mg Oxycodone/Acetaminophen (Percocet 5/325 Mg Tab) 1 tab PO Q6H PRN PRN Reason: Pain, moderate (4-7) Stop: 07/18/17 00:43 Last Admin: 07/16/17 05:12 Dose: 1 tab Pantoprazole Sodium (Protonix Ec Tab) 40 mg PO 0600 [facility] Last Admin: 07/16/17 05:12 Dose: 40 mg Polyethylene Glycol (Miralax) 17 gm PO BID [facility] Last Admin: 07/15/17 17:55 Dose: 17 gm Thiamine HCl (Vitamin B1 Tab) 100 mg PO DAILY [facility] Last Admin: 07/16/17 09:11 Dose: 100 mg - Labs Labs: 07/16/17 09:30 07/16/17 09:30 PT 11.4 SECONDS (9.4-12.5) 07/14/17 20:35 INR 1.04 (0.93-1.08) 07/14/17 20:35 APTT 31.4 Seconds (25.1-36.5) 07/14/17 20:35 - Constitutional Appears: Well, No Acute Distress - Head Exam Head Exam: ATRAUMATIC, NORMOCEPHALIC - Eye Exam Eye Exam: Normal appearance - ENT Exam ENT Exam: Mucous Membranes Moist - Respiratory Exam Respiratory Exam: Clear to Ausculation Bilateral, NORMAL BREATHING PATTERN. absent: Rales, Rhonchi, Wheezes, Respiratory Distress - Cardiovascular Exam Cardiovascular Exam: REGULAR RHYTHM, +S1, +S2 - GI/Abdominal Exam GI & Abdominal Exam: Soft, Normal Bowel Sounds. absent: Guarding, Tenderness, Hernia, Hyperactive Bowel Sounds, Organomegaly, Rebound - Extremities Exam Extremities Exam: absent: Joint Swelling, Pedal Edema - Neurological Exam Neurological Exam: Alert, Awake, Oriented x3 - Psychiatric Exam Psychiatric exam: Normal Affect, Normal Mood - Skin Skin Exam: Dry, Intact, Normal Color, Warm Assessment and Plan - Assessment and Plan (Free Text) Assessment: This is a 62yM presenting with LLQ abdominal pain. 1. Abdominal pain 2. Constipation 3. CBD with possible stricture on MRCP 4. GERD 5. Etoh abuse Plan: -Continue supportive with pain control and anti-emetics -Abdominal pain likely from constipation, aggressive bowel regimen with miralax bid -PPI daily for GERD -Advance diet as tolerated -EUS as an outpt to r/o underlying malignancy in setting of weight-loss and etoh abuse -No signs of cholangitis, no fevers, LFTS wnl -Etoh cessation advised D/W Dr. Hernandez <Scotty Hernandez - Last Filed: 07/16/17 11:36> Objective - Vital Signs/Intake and Output Vital Signs (last 24 hours): Temp Pulse Resp BP Pulse Ox 98.5 F 67 22 108/62 98 07/16/17 08:11 07/16/17 08:11 07/16/17 08:11 07/16/17 08:11 07/15/17 16:36 Intake and Output: 07/16/17 07/16/17 06:59 18:59 Intake Total 100 Balance 100 - Medications Medications: Current Medications Albuterol Sulfate (Albuterol 0.083% Inhal Lidya (2.5 Mg/3 Ml) Ud) 2.5 mg IH [id number] [facility] Last Admin: 07/16/17 07:15 Dose: 2.5 mg Arformoterol Tartrate (Brovana) 15 mcg IH 0800 [facility] Last Admin: 07/16/17 07:15 Dose: 15 mcg Aspirin (Ecotrin) 81 mg PO DAILY [facility] Last Admin: 07/16/17 09:11 Dose: 81 mg Atorvastatin Calcium (Lipitor) 40 mg PO DIN [facility] Last Admin: 07/15/17 17:55 Dose: 40 mg Betamethasone Dipropion Augmented (Diprolene Af) 0 gm TOP DAILY [facility] Last Admin: 07/16/17 09:11 Dose: 1 applic Budesonide (Pulmicort Respules) 1 mg IH 0800 [facility] Last Admin: 07/16/17 07:15 Dose: 1 mg Carvedilol (Coreg) 3.125 mg PO BID [facility] Last Admin: 07/16/17 09:11 Dose: 3.125 mg Clopidogrel Bisulfate (Plavix) 75 mg PO DAILY [facility] Last Admin: 07/16/17 09:11 Dose: 75 mg Cyclobenzaprine HCl (Flexeril) 5 mg PO Q12H PRN PRN Reason: Pain, severe (8-10) Last Admin: 07/15/17 00:35 Dose: 5 mg Docusate Sodium (Colace) 100 mg PO BID [facility] Last Admin: 07/16/17 09:11 Dose: 100 mg Famotidine (Pepcid) 40 mg PO HS [facility] Last Admin: 07/15/17 21:33 Dose: 40 mg Folic Acid (Folic Acid) 1 mg PO DAILY [facility] Last Admin: 07/16/17 09:11 Dose: 1 mg Isosorbide Mononitrate (Imdur Er) 30 mg PO ACB [facility] Last Admin: 07/16/17 09:11 Dose: 30 mg Lactic Acid (Lac-Hydrin 12% Cream (140 G)) 0 ea EXT DAILY [facility] Last Admin: 07/16/17 09:11 Dose: 1 applic Montelukast Sodium (Singulair) 10 mg PO HS [facility] Last Admin: 07/15/17 21:33 Dose: 10 mg Nicotine (Nicoderm Cq) 1 patch TD DAILY [facility] Last Admin: 07/16/17 09:12 Dose: 1 patch Nitroglycerin (Nitrostat Sl Tab) 0.4 mg SL Q5MIN PRN PRN Reason: pain Ondansetron HCl (Zofran Inj) 4 mg IVP Q4H PRN PRN Reason: Nausea/Vomiting Last Admin: 07/15/17 00:55 Dose: 4 mg Oxycodone/Acetaminophen (Percocet 5/325 Mg Tab) 1 tab PO Q6H PRN PRN Reason: Pain, moderate (4-7) Stop: 07/18/17 00:43 Last Admin: 07/16/17 05:12 Dose: 1 tab Pantoprazole Sodium (Protonix Ec Tab) 40 mg PO 0600 [facility] Last Admin: 07/16/17 05:12 Dose: 40 mg Polyethylene Glycol (Miralax) 17 gm PO BID [facility] Last Admin: 07/16/17 11:15 Dose: Not Given Thiamine HCl (Vitamin B1 Tab) 100 mg PO DAILY [facility] Last Admin: 07/16/17 09:11 Dose: 100 mg - Labs Labs: 07/16/17 09:30 07/16/17 09:30 PT 11.4 SECONDS (9.4-12.5) 07/14/17 20:35 INR 1.04 (0.93-1.08) 07/14/17 20:35 APTT 31.4 Seconds (25.1-36.5) 07/14/17 20:35 Attending/Attestation - Attestation I have personally seen and examined this patient.: Yes I have fully participated in the care of the patient.: Yes I have reviewed all pertinent clinical information, including history, physical exam and plan: Yes Notes (Text): 07/16/17 11:36 62 year old male with h/o etoh abuse admitted with llq abdominal pain. He also report gerd symptoms and constipation. Overall improving. No acute issues. Outpatient EUS recommended. Continue PPI and bowel regimen. Ok to discharge from GI perspective.
--- NOTE | 2017-07-16 15:52 | CP.PCM.DIS ---
<Maggi Lima - Last Filed: 07/16/17 19:05> Provider - Provider Date of Admission: 07/14/17 22:13 Attending physician: Flor Bowen MD Primary care physician: Lauren Damon DO Consults: Amaris Hernandez Time Spent in preparation of Discharge (in minutes): 35 Diagnosis - Discharge Diagnosis (1) Constipation Status: Acute (2) Back pain Status: Acute (3) Abdominal pain Status: Acute Hospital Course - Lab Results Lab Results: Most Recent Lab Values WBC 5.5 10^3/ul (4.5-11.0) D 07/16/17 09:30 RBC 3.71 10^6/uL (3.5-6.1) 07/16/17 09:30 Hgb 12.6 g/dL (14.0-18.0) L 07/16/17 09:30 Hct 37.5 % (42.0-52.0) L 07/16/17 09:30 MCV 101.1 fl (80.0-105.0) 07/16/17 09:30 MCH 34.0 pg (25.0-35.0) 07/16/17 09:30 MCHC 33.6 g/dl (31.0-37.0) 07/16/17 09:30 RDW 14.0 % (11.5-14.5) 07/16/17 09:30 Plt Count 245 10^3/uL (120.0-450.0) 07/16/17 09:30 MPV 8.8 fl (7.0-11.0) 07/16/17 09:30 Gran % 52.0 % (50.0-68.0) 07/16/17 09:30 Lymph % (Auto) 34.2 % (22.0-35.0) 07/16/17 09:30 [place] % (Auto) 10.4 % (1.0-6.0) H 07/16/17 09:30 Eos % (Auto) 2.9 % (1.5-5.0) 07/16/17 09:30 Baso % (Auto) 0.5 % (0.0-3.0) 07/16/17 09:30 Gran # 2.83 (1.4-6.5) 07/16/17 09:30 Lymph # 1.9 (1.2-3.4) 07/16/17 09:30 [place] # 0.6 (0.1-0.6) 07/16/17 09:30 Eos # 0.2 (0.0-0.7) 07/16/17 09:30 Baso # 0.03 K/mm3 (0.0-2.0) 07/16/17 09:30 PT 11.4 SECONDS (9.4-12.5) 07/14/17 20:35 INR 1.04 (0.93-1.08) 07/14/17 20:35 APTT 31.4 Seconds (25.1-36.5) 07/14/17 20:35 Sodium 134 mmol/L (132-148) 07/16/17 09:30 Potassium 4.4 mmol/L (3.6-5.0) 07/16/17 09:30 Chloride 98 mmol/L (98-107) 07/16/17 09:30 Carbon Dioxide 27 mmol/L (21-33) 07/16/17 09:30 Anion Gap 14 (10-20) 07/16/17 09:30 BUN 12 mg/dL (7-21) 07/16/17 09:30 Creatinine 1.0 mg/dl (0.8-1.5) 07/16/17 09:30 Est GFR ( Amer) > 60 07/16/17 09:30 Est GFR (Non-Af Amer) > 60 07/16/17 09:30 Random Glucose 96 mg/dL (70-110) 07/16/17 09:30 Calcium 10.0 mg/dL (8.4-10.5) 07/16/17 09:30 Phosphorus 4.4 mg/dL (2.5-4.5) 07/16/17 09:30 Magnesium 1.8 mg/dL (1.7-2.2) 07/16/17 09:30 Total Bilirubin 0.4 mg/dL (0.2-1.3) 07/16/17 09:30 Direct Bilirubin 0.3 mg/dL (0.0-0.4) 07/14/17 20:35 AST 32 U/L (17-59) 07/16/17 09:30 ALT 26 U/L (7-56) 07/16/17 09:30 Alkaline Phosphatase 64 U/L (38-126) 07/16/17 09:30 Lactate Dehydrogenase 440 U/L (333-699) 07/14/17 20:35 Total Creatine Kinase 119 U/L (35-230) 07/14/17 20:35 Troponin I < 0.01 ng/mL 07/14/17 20:35 Total Protein 7.2 g/dL (5.8-8.3) 07/16/17 09:30 Albumin 4.4 g/dL (3.0-4.8) 07/16/17 09:30 Globulin 2.8 gm/dL 07/16/17 09:30 Albumin/Globulin Ratio 1.6 (1.1-1.8) 07/16/17 09:30 Lipase 267 U/L (23-300) 07/14/17 20:35 Urine Color Yellow (YELLOW) 07/14/17 23:00 Urine Appearance Clear (CLEAR) 07/14/17 23:00 Urine pH 7.0 (4.7-8.0) 07/14/17 23:00 Ur Specific [place] <= 1.005 (1.005-1.035) 07/14/17 23:00 Urine Protein Negative mg/dL (<30 mg/dL) 07/14/17 23:00 Urine Glucose (UA) Negative mg/dL (NEGATIVE) 07/14/17 23:00 Urine Ketones Negative mg/dL (NEGATIVE) 07/14/17 23:00 Urine Blood Negative (NEGATIVE) 07/14/17 23:00 Urine Nitrate Negative (NEGATIVE) 07/14/17 23:00 Urine Bilirubin Negative (NEGATIVE) 07/14/17 23:00 Urine Urobilinogen 0.2 E.U./dL (<1 E.U./dL) 07/14/17 23:00 Ur Leukocyte Esterase Negative Jenifer/uL (NEGATIVE) 07/14/17 23:00 - Hospital Course Hospital Course: 62 years old homless male, whose past medical history includes alcohol abuse, COPD, hypertension and CAD s/p stents (non compliant), cholecystectomy, who presents to the emergency department complaining of left lower sided abdominal pain, admits to associated nausea, but no vomiting, melena, or hematochezia. Patient states he was seen before and diagnosed with bile duct stricture earlier on MRCP this month at [facility] and EUS was recommended, but signed out against medical advice due to personal matters. He denies any cough, chest pain , pruritus, jaundice, epigastric pain, dyspnea, or headache at the time of admission. Given the location of the pain and pt stated that he had not had a BM for a week, he was started on colace tid and Miralax bid, with resulting 2 formed large nonbloody BMs. After the BMs, pt had resolution of LLQ pain. He however complained to left lower back pain, reproducible in nature, UA was tested and was negative for any hematuria or infection (no stones).GI was consulted and recommended EUS outpatient as pt has no epigastric/upper abdominal pain or rise in LFTs. Pt was discharged on Mobic for the pain. Also given Omeprazole for any gastritis symptoms that may be associated with Mobic. Pt also given Colace prescription. Since patient has medicaid, he is qualified to only go to [facility]. Pt thoroughly explained to follow up there (however denies as he had prior bad experiences at the hospital) . Discussed with Dr Bowen. Discharge Exam - Additional Findings Additional findings: - Constitutional Appears: Well, Non-toxic - Head Exam Head Exam: ATRAUMATIC, NORMOCEPHALIC - Eye Exam Eye Exam: EOMI, Normal appearance - ENT Exam ENT Exam: Mucous Membranes Moist, Normal Oropharynx - Neck Exam Neck exam: Positive for: Normal Inspection - Respiratory Exam Respiratory Exam: Clear to Auscultation Bilateral, NORMAL BREATHING PATTERN. absent: Rales, Wheezes - Cardiovascular Exam Cardiovascular Exam: RRR, +S1, +S2 - GI/Abdominal Exam GI & Abdominal Exam: Normal Bowel Sounds, Soft, Tenderness (left side). absent : Rebound - Extremities Exam Extremities exam: Positive for: normal capillary refill, normal inspection, pedal pulses present. Negative for: calf tenderness - Back Exam Back exam: NORMAL INSPECTION. + paraspinal tenderness noted on left lumbar area. absent: CVA tenderness (L), CVA tenderness (R) - Neurological Exam Neurological exam: Alert, CN II-XII Intact, Oriented x3 - Psychiatric Exam Psychiatric exam: Normal mood/affect. - Skin Skin Exam: Dry, Intact, Normal Color, Warm Discharge Plan - Discharge Medications Prescriptions: Docusate [Colace] 100 mg PO BID 30 Days cap Meloxicam [Mobic] 7.5 mg PO BID PRN 15 Days tab PRN Reason: Pain, Moderate (4-7) Omeprazole 40 mg PO DAILY 30 Days capsule.dr - Follow Up Plan Condition: STABLE Disposition: HOME/ ROUTINE Instructions: Constipation (DC), Abdominal Pain (ED) Additional Instructions: - Take Colace two times a day to have regular bowel movements and avoid constipation. - For you back muscle spasm, take Mobic for pain. Also take Omeprazole to avoid any stomach side effects from Mobic. - As discussed, you state that you are going back to [facility]. - Follow up with PMD in 1 week - Follow up with GI at [place] [facility] for your endoscopic ultrasound (CBD dilatation). - Return to the hospital if any concerns. Referrals: Lauren Damon DO [Primary Care Provider] - Follow up with primary Scotty Hernandez MD [Staff Provider] - <Flor Bowen - Last Filed: 07/17/17 14:35> Provider - Provider Date of Admission: 07/14/17 22:13 Attending physician: Flor Bowen MD Primary care physician: Lauren Damon [facility] Course - Lab Results Lab Results: Most Recent Lab Values WBC 5.5 10^3/ul (4.5-11.0) D 07/16/17 09:30 RBC 3.71 10^6/uL (3.5-6.1) 07/16/17 09:30 Hgb 12.6 g/dL (14.0-18.0) L 07/16/17 09:30 Hct 37.5 % (42.0-52.0) L 07/16/17 09:30 MCV 101.1 fl (80.0-105.0) 07/16/17 09:30 MCH 34.0 pg (25.0-35.0) 07/16/17 09:30 MCHC 33.6 g/dl (31.0-37.0) 07/16/17 09:30 RDW 14.0 % (11.5-14.5) 07/16/17 09:30 Plt Count 245 10^3/uL (120.0-450.0) 07/16/17 09:30 MPV 8.8 fl (7.0-11.0) 07/16/17 09:30 Gran % 52.0 % (50.0-68.0) 07/16/17 09:30 Lymph % (Auto) 34.2 % (22.0-35.0) 07/16/17 09:30 [place] % (Auto) 10.4 % (1.0-6.0) H 07/16/17 09:30 Eos % (Auto) 2.9 % (1.5-5.0) 07/16/17 09:30 Baso % (Auto) 0.5 % (0.0-3.0) 07/16/17 09:30 Gran # 2.83 (1.4-6.5) 07/16/17 09:30 Lymph # 1.9 (1.2-3.4) 07/16/17 09:30 [place] # 0.6 (0.1-0.6) 07/16/17 09:30 Eos # 0.2 (0.0-0.7) 07/16/17 09:30 Baso # 0.03 K/mm3 (0.0-2.0) 07/16/17 09:30 PT 11.4 SECONDS (9.4-12.5) 07/14/17 20:35 INR 1.04 (0.93-1.08) 07/14/17 20:35 APTT 31.4 Seconds (25.1-36.5) 07/14/17 20:35 Sodium 134 mmol/L (132-148) 07/16/17 09:30 Potassium 4.4 mmol/L (3.6-5.0) 07/16/17 09:30 Chloride 98 mmol/L (98-107) 07/16/17 09:30 Carbon Dioxide 27 mmol/L (21-33) 07/16/17 09:30 Anion Gap 14 (10-20) 07/16/17 09:30 BUN 12 mg/dL (7-21) 07/16/17 09:30 Creatinine 1.0 mg/dl (0.8-1.5) 07/16/17 09:30 Est GFR ( Amer) > 60 07/16/17 09:30 Est GFR (Non-Af Amer) > 60 07/16/17 09:30 Random Glucose 96 mg/dL (70-110) 07/16/17 09:30 Calcium 10.0 mg/dL (8.4-10.5) 07/16/17 09:30 Phosphorus 4.4 mg/dL (2.5-4.5) 07/16/17 09:30 Magnesium 1.8 mg/dL (1.7-2.2) 07/16/17 09:30 Total Bilirubin 0.4 mg/dL (0.2-1.3) 07/16/17 09:30 Direct Bilirubin 0.3 mg/dL (0.0-0.4) 07/14/17 20:35 AST 32 U/L (17-59) 07/16/17 09:30 ALT 26 U/L (7-56) 07/16/17 09:30 Alkaline Phosphatase 64 U/L (38-126) 07/16/17 09:30 Lactate Dehydrogenase 440 U/L (333-699) 07/14/17 20:35 Total Creatine Kinase 119 U/L (35-230) 07/14/17 20:35 Troponin I < 0.01 ng/mL 07/14/17 20:35 Total Protein 7.2 g/dL (5.8-8.3) 07/16/17 09:30 Albumin 4.4 g/dL (3.0-4.8) 07/16/17 09:30 Globulin 2.8 gm/dL 07/16/17 09:30 Albumin/Globulin Ratio 1.6 (1.1-1.8) 07/16/17 09:30 Lipase 267 U/L (23-300) 07/14/17 20:35 Urine Color Straw (YELLOW) 07/16/17 17:25 Urine Appearance Clear (CLEAR) 07/16/17 17:25 Urine pH 6.0 (4.7-8.0) 07/16/17 17:25 Ur Specific [place] <= 1.005 (1.005-1.035) 07/16/17 17:25 Urine Protein Negative mg/dL (<30 mg/dL) 07/16/17 17:25 Urine Glucose (UA) Negative mg/dL (NEGATIVE) 07/16/17 17:25 Urine Ketones Negative mg/dL (NEGATIVE) 07/16/17 17:25 Urine Blood Negative (NEGATIVE) 07/16/17 17:25 Urine Nitrate Negative (NEGATIVE) 07/16/17 17:25 Urine Bilirubin Negative (NEGATIVE) 07/16/17 17:25 Urine Urobilinogen 0.2 E.U./dL (<1 E.U./dL) 07/16/17 17:25 Ur Leukocyte Esterase Negative Jenifer/uL (NEGATIVE) 07/16/17 17:25 Attending/Attestation - Attestation I have personally seen and examined this patient.: Yes I have fully participated in the care of the patient.: Yes I have reviewed all pertinent clinical information, including history, physical exam and plan: Yes Notes (Text): 07/17/17 14:32 Patient was seen and examined with family practice medical doctor. Agreed with resident assessment and plan. 62 years old male with PMH of alcohol abuse, COPD, hypertension and CAD s/p stents (non compliant), cholecystectomy was admitted with lower left quadrant pain due to constipation.Patient pain has improved with laxative.He is tolerating food with out any problem.He is ambulatory. His LFT are normal.There is no right upper quadrant abdominal pain.There is no Nausea or vomiting. He will be discharged home and will follow up with GI for out patient EUS. Management plan was discussed in detail with patient Education was provided.
[2017-07-16 16:15] VITALS: BP 118/70; RESP 19; TEMP 97.9; O2SAT 95
[2017-07-16 18:13] LABS: URINE BILIRUBIN NEGATIVE (NEGATIVE); URINE BLOOD NEGATIVE (NEGATIVE); URINE GLUCOSE (UA) NEGATIVE (NEGATIVE); URINE KETONE NEGATIVE (NEGATIVE); URINE LEUKOCYTE ESTERASE NEGATIVE Leu/uL (NEGATIVE); URINE PROTEIN NEGATIVE mg/dL (<30 mg/dL); URINE UROBILINOGEN 0.2 E.U./dL (<1 E.U./dL)
[2017-07-16 18:16] LABS: URINE APPEARANCE CLEAR (CLEAR); URINE COLOR STRAW (YELLOW)
[2017-07-16 18:25] VITALS: PULSE 70
== END 2017-07-16 19:45 | disposition home or self-care (01) ==
LOC: ED 19:29 → INTOOBSV 22:13 → ERH 22:13 → 3RNO 23:31
PROVIDERS: ADMIT Internal Medicine; ATTEND Internal Medicine
DX: K59.00 Constipation, unspecified (principal); Z91.19 Patient's noncompliance with other medical treatment and regimen; J44.9 Chronic obstructive pulmonary disease, unspecified; I25.10 Atherosclerotic heart disease of native coronary artery without angina pectoris; I10 Essential (primary) hypertension; F10.20 Alcohol dependence, uncomplicated; F17.210 Nicotine dependence, cigarettes, uncomplicated; M62.838 Other muscle spasm; K21.9 Gastro-esophageal reflux disease without esophagitis; K29.70 Gastritis, unspecified, without bleeding; Z59.0 Homelessness; Z95.5 Presence of coronary angioplasty implant and graft; Z90.49 Acquired absence of other specified parts of digestive tract
CPT/HCPCS: 36415; 80053; 81003; 82248; 82550; 83615; 83690; 83735; 84100; 84484; 85025; 85610; 85730; 93005; 94640; 96374; 96375; 99285; C9113; G0378; J2405

== ENCOUNTER 2017-08-27 18:59 | Observation (INO) | payer MEDICAID ==
[2017-08-27 19:25] VITALS: BMI 22.1
[2017-08-27] MEDS ORDERED: Albuterol-Ipratrop 3 mg / 0.5 (3 ml) UD ONE (19:25)
--- NOTE | 2017-08-27 19:32 | ED PDOC ---
Arrival/HPI - General Chief Complaint: Shortness Of Breath Time Seen by Provider: 08/27/17 19:03 - History of Present Illness Narrative History of Present Illness (Text): 08/27/17 19:30 62 yo male, hx of copd, sent by pmd for wheezing. mild cough. no fevers, cp with coughing. no other complaint. Past Medical History - Past History Past History: No Previous - Infectious Disease Hx of Infectious Diseases: None - Tetanus Immunization Tetanus Immunization: Unknown - Cardiac Hx Cardiac Disorders: Yes (CA) Hx CA: Yes Hx Hypertension: Yes - Pulmonary Hx Respiratory Disorders: Yes Hx Bronchitis: Yes Hx Chronic Obstructive Pulmonary Disease (COPD): Yes Hx Emphysema: Yes - Neurological Hx Neurological Disorder: No (denies) - HEENT Hx HEENT Disorder: Yes Hx Cataracts: Yes (right eye) Hx Glaucoma: No - Renal Hx Renal Disorder: No - Endocrine/Metabolic Hx Endocrine Disorders: No - Hematological/Oncological Hx Blood Disorders: Yes (blood transfusion) Hx Anemia: Yes Hx Cancer: No - Integumentary Hx Dermatological Disorder: No - Musculoskeletal/Rheumatological Hx Falls: No - Gastrointestinal Hx Gastrointestinal Disorders: Yes Hx Gall Bladder Disease: Yes (Gall stones removed) Hx Gastroesophageal Reflux: Yes - Genitourinary/Gynecological Hx Genitourinary Disorders: No (denies) - Psychiatric Hx Psychophysiologic Disorder: Yes Hx Anxiety: Yes Hx Substance Use: No - Surgical History Hx Cardiac Catheterization: Yes Hx Coronary Stent: Yes (x3) Hx Open Heart Surgery: Yes - Anesthesia Hx Anesthesia: Yes Hx Anesthesia Reactions: No Hx Malignant Hyperthermia: No - Suicidal Assessment Feels Threatened In Home Enviroment: No Family/Social History Family/Social History: Unknown Family HX Smoking Status: Current Some Days Smoker Hx Alcohol Use: Yes Hx Substance Use: No Substance used: HEROIN, MARIJUANA Hx Substance Use Treatment: No Allergies/Home Meds Allergies/Adverse Reactions: Allergies shellfish derived Allergy (Verified 08/27/17 22:20) ANAPHYLAXIS Sulfa (Sulfonamide Antibiotics) Allergy (Verified 08/27/17 22:20) RASH Home Medications: Home Meds Medication Instructions Recorded Confirmed Unobtainable 08/27/17 08/27/17 Review of Systems - Review of Systems Constitutional: Normal Eyes: Normal ENT: Normal Respiratory: SOB, Cough, Wheezing Cardiovascular: Chest Pain Gastrointestinal: Normal Genitourinary Male: Normal Musculoskeletal: Normal Skin: Normal Neurological: Normal Endocrine: Normal Hemo/Lymphatic: Normal Psychiatric: Normal Physical Exam Vital Signs Temp Pulse Resp BP Pulse Ox 08/27/17 22:00 97.9 F 86 16 128/70 99 08/27/17 20:59 97.9 F 66 16 100/46 L 99 08/27/17 19:09 97.9 F 08/27/17 19:03 23 Temperature: Afebrile Blood Pressure: Normal Pulse: Regular Respiratory Rate: Normal Appearance: Positive for: Well-Appearing, Non-Toxic, Comfortable Pain Distress: None Mental Status: Positive for: Alert and Oriented X 3 - Systems Exam Head: Present: Atraumatic, Normocephalic Pupils: Present: PERRL Extroacular Muscles: Present: EOMI Conjunctiva: Present: Normal Mouth: Present: Moist Mucous Membranes Neck: Present: Normal Range of Motion Respiratory/Chest: Present: Good Air Exchange, Wheezes (diffuse). No: Respiratory Distress, Accessory Muscle Use Cardiovascular: Present: Regular Rate and Rhythm, Normal S1, S2. No: Murmurs Abdomen: Present: Normal Bowel Sounds. No: Tenderness, Distention, Peritoneal Signs Back: Present: Normal Inspection Upper Extremity: Present: Normal Inspection. No: Cyanosis, Edema Lower Extremity: Present: Normal Inspection. No: Edema Neurological: Present: GCS=15, CN II-XII Intact, Speech Normal Skin: Present: Warm, Dry, Normal Color. No: Rashes Psychiatric: Present: Alert, Oriented x 3, Normal Insight, Normal Concentration Medical Decision Making ED Course and Treatment: 08/27/17 19:31 copd r/o pna influenza. nebs steriods ekg nsr 74 nost twave changes 08/27/17 23:17 new na of 126, persistentwheezing dr brannon accepts for admission. - Lab Interpretations Lab Results: 08/27/17 19:30 08/27/17 19:30 Lab Results 08/27/17 19:30: Influenza Typ A,B (EIA) Negative for flu a/b 08/27/17 19:30: Sodium 126 L, Potassium 4.3, Chloride 92 L, Carbon Dioxide 23, Anion Gap 15, BUN 20, Creatinine 0.7 L, Est GFR ( Amer) > 60, Est GFR ( Non-Af Amer) > 60, Random Glucose 90, Calcium 9.5, Magnesium 2.0, Total Bilirubin 0.6, AST 39, ALT 29, Alkaline Phosphatase 55, Lactate Dehydrogenase 478, Total Creatine Kinase 135, Troponin I < 0.01, Total Protein 6.7, Albumin 4.1, Globulin 2.7, Albumin/Globulin Ratio 1.5 08/27/17 19:30: PT 11.2, INR 0.98, APTT 37.4 H 08/27/17 19:30: WBC 5.8, RBC 3.72, Hgb 12.5 L, Hct 35.8 L, MCV 96.2 D, MCH 33.6 , MCHC 34.9, RDW 13.0, Plt Count 244, MPV 9.0, Gran % 51.3, Lymph % (Auto) 32.1 , [place] % (Auto) 12.5 H, Eos % (Auto) 3.8, Baso % (Auto) 0.3, Gran # 2.96, Lymph # (Auto) 1.9, [place] # (Auto) 0.7 H, Eos # (Auto) 0.2, Baso # (Auto) 0.02 - RAD Interpretation Radiology Orders: 08/27/17 19:28 CHEST PORTABLE [RAD] Stat - Medication Orders Current Medication Orders: Albuterol/Ipratropium (Duoneb 3 Mg/0.5 Mg (3 Ml) Ud) 3 ml IH [id number] MAHSA Albuterol/Ipratropium (Duoneb 3 Mg/0.5 Mg (3 Ml) Ud) 3 ml IH Q2H PRN PRN Reason: Shortness of Breath Aspirin (Ecotrin) 81 mg PO DAILY [facility] Atorvastatin Calcium (Lipitor) 40 mg PO DIN [facility] Carvedilol (Coreg) 3.125 mg PO BID [facility] Clopidogrel Bisulfate (Plavix) 75 mg PO DAILY [facility] Folic Acid (Folic Acid) 1 mg PO DAILY [facility] Sodium Chloride (Sodium Chloride 0.9%) 1,000 mls @ 100 mls/hr IV .Q10H MAHSA Last Admin: 08/27/17 21:11 Dose: 100 mls/hr eMAR Start Stop Document 08/27/17 21:11 AB (Rec: 08/27/17 21:11 AB [id number]) Intravenous Solution Start Date 08/27/17 Start Time 21:11 End Date 02/06/18 Levofloxacin/Dextrose (Levaquin 500mg) 500 mg in 100 mls @ 100 mls/hr IVPB DAILY [facility] PRN Reason: Protocol Isosorbide Mononitrate (Imdur Er) 30 mg PO DAILY [facility] Meloxicam (Mobic) 7.5 mg PO BID PRN PRN Reason: Pain, moderate (4-7) Methylprednisolone (Solu-Medrol) 30 mg IVP Q8 [facility] Montelukast Sodium (Singulair) 10 mg PO DAILY [facility] Pantoprazole Sodium (Protonix Ec Tab) 40 mg PO 0600 [facility] Thiamine HCl (Vitamin B1 Tab) 100 mg PO DAILY [facility] Discontinued Medications Albuterol/Ipratropium (Duoneb 3 Mg/0.5 Mg (3 Ml) Ud) 3 ml IH Q15M [facility] Stop: 08/27/17 20:01 Last Admin: 08/27/17 20:41 Dose: 3 ml Methylprednisolone (Solu-Medrol) 125 mg IVP STAT STA Stop: 08/27/17 19:29 Last Admin: 08/27/17 19:49 Dose: 125 mg IVP Administration Document 08/27/17 19:49 AB (Rec: 08/27/17 19:49 AB [id number]) Charges for Administration # of IVP Administrations 1 Methylprednisolone (Solu-Medrol) 20 mg IVP Q12 [facility] Last Admin: 08/27/17 22:11 Dose: 20 mg IVP Administration Document 08/27/17 22:11 AB (Rec: 08/27/17 22:11 AB [id number]) Charges for Administration # of IVP Administrations 1 Disposition/Present on Arrival - Present on Arrival Any Indicators Present on Arrival: No History of DVT/PE: No History of Uncontrolled Diabetes: No Urinary Catheter: No History of Decub. Ulcer: No History Surgical Site Infection Following: None - Disposition Have Diagnosis and Disposition been Completed?: Yes Diagnosis: COPD (chronic obstructive pulmonary disease), Hyponatremia Disposition: HOSPITALIZED Disposition Time: 10:00 Condition: STABLE
[2017-08-27] MEDS: Albuterol-Ipratrop 3 mg / 0.5 (3 ml) UD IH SCH ×4 (19:49→23:57)
[2017-08-27 20:01] LABS: BASO # 0.02 K/mm3 (0.0-2.0); BASO % 0.3 % (0.0-3.0); EOS # 0.2 (0.0-0.7); EOS % 3.8 % (1.5-5.0); GRAN # 2.96 (1.4-6.5); GRAN % 51.3 % (50.0-68.0); HEMOGLOBIN 12.5 g/dL (14.0-18.0); LYMPH # 1.9 (1.2-3.4); LYMPH % 32.1 % (22.0-35.0); MEAN CELL VOLUME 96.2 fl (80.0-105.0); MEAN CORPUSCULAR HEMOGLOBIN 33.6 pg (25.0-35.0); MEAN CORPUSCULAR HGB CONC 34.9 g/dl (31.0-37.0); MONO # 0.7 (0.1-0.6); MONO % 12.5 % (1.0-6.0); RBC 3.72 10^6/uL (3.5-6.1); WHITE BLOOD COUNT 5.8 10^3/ul (4.5-11.0)
[2017-08-27 20:10] LABS: ALB/GLOB RATIO 1.5 (1.1-1.8); ALBUMIN 4.1 g/dL (3.0-4.8); ALT/SGPT 29 U/L (7-56); AST/SGOT 39 U/L (17-59); CALCIUM 9.5 mg/dL (8.4-10.5); GFR AFRICAN-AMERICAN > 60; GFR NON-AFRICAN AMERICAN > 60
[2017-08-27 20:13] LABS: INR 0.98 (0.93-1.08); PROTHROMBIN TIME 11.2 SECONDS (9.4-12.5)
[2017-08-27 20:14] LABS: PARTIAL THROMBOPLASTIN TIME 37.4 Seconds (25.1-36.5)
[2017-08-27 20:18] LABS: BLOOD UREA NITROGEN 20 mg/dL (7-21)
[2017-08-27 20:21] LABS: TROPONIN I < 0.01 ng/mL
[2017-08-27] MEDS: Sodium Chloride 0.9% 1,000 ML IV SCH (21:11)
--- NOTE | 2017-08-27 21:44 | CP.PCM.HP ---
<Abhi Charles - Last Filed: 08/27/17 23:15> History of Present Illness - History of Present Illness History of Present Illness: 62 year old male with past medical history of alcohol abuse, COPD, hypertension and CAD s/p stents presents with wheezing, cough, and sputum production. Patient states he went to his PMD office today around 5:30 for a follow up when his PMD, Dr. Damon told him he had wheezing. He was told by his doctor to come to the hospital. Patient does not recall when the wheezing began, but states he is not short of breath. He does state he has had a cough for a couple days now and has been coughing up yellow sputum and also felt that he had a fever yesterday for which he took tylenol for. He also states he had some pain in his chest when he was coughing for which he took nitroglycerin earlier today. He denies any pain in his chest currently. Patient denies any sore throat, chills, abdominal pain, arthralgias or any other complaints at this time. He also states he has not had an alcoholic drink for a while now. He also denies any recent travel or sick contacts. PMD: Dr. Damon PMH: COPD, hypertension, CAD, alcoholism, tobacco abuse, homelessness PSH: Cholecystecomy Allergies: Shellfish derived substances, Sulfa Social: Smoker, drinker, homeless Family: none significant Present on Admission - Present on Admission Any Indicators Present on Admission: No Review of Systems - Constitutional Constitutional: Fever. absent: Chills, Headache, Lethargy - EENT Eyes: absent: Blurred Vision, Change in Vision Nose/Mouth/Throat: absent: Nasal Congestion, Nasal Discharge, Sore Throat - Cardiovascular Cardiovascular: absent: Chest Pain, Diaphoresis, Dyspnea, Palpitations - Respiratory Respiratory: Wheezing, Excessive Mucous Production, Pain with Coughing - Gastrointestinal Gastrointestinal: absent: Abdominal Pain, Diarrhea, Nausea, Vomiting Past Patient History - Infectious Disease Hx of Infectious Diseases: None - Tetanus Immunizations Tetanus Immunization: Unknown - Past Medical History & Family History Past Medical History?: Yes - Past Social History Smoking Status: Current Some Days Smoker - CARDIAC Hx Cardiac Disorders: Yes ([place]) Hx Heart Attack: Yes Hx Hypertension: Yes - PULMONARY Hx Respiratory Disorders: Yes Hx Bronchitis: Yes Hx Chronic Obstructive Pulmonary Disease (COPD): Yes Hx Emphysema: Yes - NEUROLOGICAL Hx Neurological Disorder: No (denies) - HEENT Hx HEENT Problems: Yes Hx Cataracts: Yes (right eye) Hx Glaucoma: No - RENAL Hx Chronic Kidney Disease: No - ENDOCRINE/METABOLIC Hx Endocrine Disorders: No - HEMATOLOGICAL/ONCOLOGICAL Hx Blood Disorders: Yes (blood transfusion) Hx Anemia: Yes Hx Cancer: No - INTEGUMENTARY Hx Dermatological Problems: No - MUSCULOSKELETAL/RHEUMATOLOGICAL Hx Falls: No - GASTROINTESTINAL Hx Gastrointestinal Disorders: Yes Hx Gall Bladder Disease: Yes (Gall stones removed) Hx Gastroesophageal Reflux: Yes - GENITOURINARY/GYNECOLOGICAL Hx Genitourinary Disorders: No (denies) - PSYCHIATRIC Hx Psychophysiologic Disorder: Yes Hx Anxiety: Yes Hx Substance Use: No - SURGICAL HISTORY Hx Cardiac Catheterization: Yes Hx Coronary Stent: Yes (x3) Hx Open Heart Surgery: Yes - ANESTHESIA Hx Anesthesia: Yes Hx Anesthesia Reactions: No Hx Malignant Hyperthermia: No Meds Allergies/Adverse Reactions: Allergies Allergy/AdvReac Type Severity Reaction Status Date / Time shellfish derived Allergy ANAPHYLAXIS Verified 08/27/17 22:20 Sulfa (Sulfonamide Allergy RASH Verified 08/27/17 22:20 Antibiotics) Physical Exam - Constitutional Appears: Non-toxic, No Acute Distress - Head Exam Head Exam: ATRAUMATIC, NORMAL INSPECTION, NORMOCEPHALIC - Eye Exam Eye Exam: Normal appearance, PERRL - ENT Exam ENT Exam: Mucous Membranes Moist - Neck Exam Neck exam: Negative for: Lymphadenopathy, Tenderness - Respiratory Exam Respiratory Exam: Wheezes - Cardiovascular Exam Cardiovascular Exam: REGULAR RHYTHM, +S1, +S2 - GI/Abdominal Exam GI & Abdominal Exam: Normal Bowel Sounds. absent: Tenderness - Extremities Exam Extremities exam: Positive for: pedal pulses present. Negative for: pedal edema - Neurological Exam Neurological exam: Alert, Oriented x3 Results - Vital Signs Recent Vital Signs: Last Vital Signs Temp 97.9 F 08/27/17 19:09 Pulse Resp 23 08/27/17 19:03 BP Pulse Ox - Labs Result Diagrams: 08/27/17 19:30 08/27/17 19:30 Assessment & Plan - Assessment and Plan (Free Text) Assessment: 62 year old male with past medical history of alcohol abuse, COPD, hypertension and CAD s/p stents presents with wheezing, cough, and mucous production. Plan: 1. COPD Exacerbation -EKG pending official read -xray pending official read -negative for Flu -Levaquin -Oxygen PRN -Duonebs -Solumedrol IV -legionella pending -sputum culture pending -troponin negative x1, will trend one more time -singulair 2. Hyponatremia -Na 126 -serium osmolality pending -urine osmolality pending -urine sodium pending -NS@100 3. CAD - Plavix, Aspirin, Imdur, Atorvastatin, Carvedilol 4. History of Alcohol Abuse -alcohol level pending GI/DVT Prophylaxis -Protonix -SCD <Nova Lovelace - Last Filed: 08/28/17 02:51> Results - Vital Signs Recent Vital Signs: Last Vital Signs Temp 97.6 F 08/27/17 22:48 Pulse 70 08/27/17 23:57 Resp 20 08/27/17 22:48 BP 123/74 08/27/17 22:48 Pulse Ox 99 08/27/17 22:00 - Labs Result Diagrams: 08/27/17 19:30 08/27/17 19:30 Attending/Attestation - Attestation I have personally seen and examined this patient.: Yes I have fully participated in the care of the patient.: Yes I have reviewed all pertinent clinical information: Yes Notes (Text): 08/28/17 02:47 Pt examined,discussed with Dr Charles,agree with orders placed.
[2017-08-27] MEDS ORDERED: Meloxicam 7.5 MG TAB PO PRN (21:48)
[2017-08-27] MEDS ORDERED: Albuterol-Ipratrop 3 mg / 0.5 (3 ml) UD IH PRN (21:53)
[2017-08-27] MEDS ORDERED: MethylPREDNISolone 40 mg Vial IVP SCH (22:00)
[2017-08-28 00:50] LABS: URINE BILIRUBIN NEGATIVE (NEGATIVE); URINE BLOOD NEGATIVE (NEGATIVE); URINE GLUCOSE (UA) NEGATIVE (NEGATIVE); URINE LEUKOCYTE ESTERASE NEGATIVE Leu/uL (NEGATIVE); URINE NITRATE NEGATIVE (NEGATIVE); URINE PROTEIN NEGATIVE mg/dL (<30 mg/dL); URINE UROBILINOGEN 0.2 E.U./dL (<1 E.U./dL)
[2017-08-28 00:51] LABS: URINE APPEARANCE CLEAR (CLEAR); URINE COLOR YELLOW (YELLOW)
[2017-08-28] MEDS: MethylPREDNISolone 40 mg Vial IVP SCH ×3 (05:33→21:43)
[2017-08-28] MEDS: Pantoprazole 40 mg EC Tab PO SCH (05:35)
[2017-08-28] MEDS: Albuterol-Ipratrop 3 mg / 0.5 (3 ml) UD IH SCH ×5 (05:40→20:18)
[2017-08-28 06:36] LABS: GRAN # 2.71 (1.4-6.5); GRAN % 89.7 % (50.0-68.0); HEMOGLOBIN 12.7 g/dL (14.0-18.0); LYMPH # 0.3 (1.2-3.4); LYMPH % 9.3 % (22.0-35.0); MEAN CELL VOLUME 96.3 fl (80.0-105.0); MEAN CORPUSCULAR HEMOGLOBIN 33.2 pg (25.0-35.0); MEAN CORPUSCULAR HGB CONC 34.4 g/dl (31.0-37.0); MEAN PLATELET VOLUME 8.9 fl (7.0-11.0); RBC 3.83 10^6/uL (3.5-6.1); RED CELL DISTRIBUTION WIDTH 13.1 % (11.5-14.5)
[2017-08-28 07:50] LABS: ALB/GLOB RATIO 1.6 (1.1-1.8); ALBUMIN 4.2 g/dL (3.0-4.8); ALT/SGPT 25 U/L (7-56); AST/SGOT 36 U/L (17-59); BLOOD UREA NITROGEN 14 mg/dL (7-21); CALCIUM 9.4 mg/dL (8.4-10.5); GFR AFRICAN-AMERICAN > 60; GFR NON-AFRICAN AMERICAN > 60
--- NOTE | 2017-08-28 08:37 | CP.PCM.PN ---
<Belinda Jung - Last Filed: 08/28/17 14:45> Subjective - Date & Time of Evaluation Date of Evaluation: 08/28/17 Time of Evaluation: 07:30 - Subjective Subjective: Belinda Jung DO PGY1 - IM Progress Note Patient seen and examined at bedside. No acute events overnight. Patient reports improvement in his cough, chest pain, and shortness of breath. He is requesting something for symptomatic treatment of cough. He denies fever, chills , abdominal pain, or shortness of breath. Patient was observed sitting up, comfortably eating breakfast. Objective - Vital Signs/Intake and Output Vital Signs (last 24 hours): Temp Pulse Resp BP Pulse Ox 97.6 F 70 20 123/74 99 08/27/17 22:48 08/27/17 23:57 08/27/17 22:48 08/27/17 22:48 08/27/17 22:00 Intake and Output: 08/28/17 08/28/17 06:59 18:59 Intake Total 240 Output Total 700 Balance -460 - Medications Medications: Current Medications Albuterol/Ipratropium (Duoneb 3 Mg/0.5 Mg (3 Ml) Ud) 3 ml [id number] Last Admin: 08/28/17 07:42 Dose: 3 ml Albuterol/Ipratropium (Duoneb 3 Mg/0.5 Mg (3 Ml) Ud) 3 ml IH Q2H PRN PRN Reason: Shortness of Breath Aspirin (Ecotrin) 81 mg PO DAILY [facility] Atorvastatin Calcium (Lipitor) 40 mg PO DIN [facility] Benzonatate (Tessalon Perles) 100 mg PO TID PRN PRN Reason: cough Carvedilol (Coreg) 3.125 mg PO BID [facility] Clopidogrel Bisulfate (Plavix) 75 mg PO DAILY [facility] Folic Acid (Folic Acid) 1 mg PO DAILY [facility] Sodium Chloride (Sodium Chloride 0.9%) 1,000 mls @ 100 mls/hr IV .Q10H [facility] Last Admin: 08/27/17 21:11 Dose: 100 mls/hr Levofloxacin/Dextrose (Levaquin 500mg) 500 mg in 100 mls @ 100 mls/hr IVPB DAILY [facility] PRN Reason: Protocol Isosorbide Mononitrate (Imdur Er) 30 mg PO DAILY [facility] Meloxicam (Mobic) 7.5 mg PO BID PRN PRN Reason: Pain, moderate (4-7) Methylprednisolone (Solu-Medrol) 30 mg IVP Q8 [facility] Last Admin: 08/28/17 05:33 Dose: 30 mg Montelukast Sodium (Singulair) 10 mg PO DAILY [facility] Multivitamins/Minerals (Therapeutic-M Tab) 1 tab PO 0800 [facility] Pantoprazole Sodium (Protonix Ec Tab) 40 mg PO 0600 [facility] Last Admin: 08/28/17 05:35 Dose: 40 mg Thiamine HCl (Vitamin B1 Tab) 100 mg PO DAILY [facility] - Labs Labs: 08/28/17 06:10 08/28/17 06:10 PT 11.2 SECONDS (9.4-12.5) 08/27/17 19:30 INR 0.98 (0.93-1.08) 08/27/17 19:30 APTT 37.4 Seconds (25.1-36.5) H 08/27/17 19:30 - Constitutional Appears: Non-toxic, No Acute Distress - Head Exam Head Exam: ATRAUMATIC, NORMOCEPHALIC - Eye Exam Eye Exam: EOMI, Normal appearance, PERRL - ENT Exam ENT Exam: Mucous Membranes Moist - Neck Exam Neck Exam: Normal Inspection - Respiratory Exam Respiratory Exam: Wheezes (Diffuse), NORMAL BREATHING PATTERN. absent: Respiratory Distress Additional comments: Sitting up, no tripoding or use of accessory muscles, speaking in full sentences. - Cardiovascular Exam Cardiovascular Exam: RRR, +S1, +S2 - GI/Abdominal Exam GI & Abdominal Exam: Soft, Normal Bowel Sounds. absent: Tenderness - Extremities Exam Extremities Exam: absent: Calf Tenderness, Pedal Edema - Neurological Exam Neurological Exam: Alert, Awake, Oriented x3 - Psychiatric Exam Psychiatric exam: Normal Affect, Normal Mood - Skin Skin Exam: Dry, Intact, Normal Color Assessment and Plan - Assessment and Plan (Free Text) Assessment: 62 year old male with past medical history of alcohol abuse, COPD, hypertension and CAD s/p stents presents with wheezing, cough, and mucous production. Being treated for COPD exacerbation Plan: 1. COPD Exacerbation -Symptomatically improving -CXR shows no active disease -Continue Levaquin -Oxygen PRN -Duonebs Q6H MAHSA and Q2H PRN -Solumedrol 30mg IV Q8H -Continue Singulair -Start Tessalon Perles TID PRN for cough -Legionella pending -Sputum culture pending -Troponin negative x2 2. Hyponatremia -Resolved -NS@100 3. CAD - Continue home Plavix, Aspirin, Imdur, Atorvastatin, Carvedilol 4. History of Alcohol Abuse -Alcohol level low; no signs of withdrawal GI/DVT Prophylaxis -Protonix -SCD Patient seen, discussed, and reviewed with attending Dr. Ramirez <Capo Ramirez - Last Filed: 08/29/17 15:17> Objective - Vital Signs/Intake and Output Vital Signs (last 24 hours): Temp Pulse Resp BP Pulse Ox 97.9 F 80 20 140/70 99 08/29/17 09:04 08/29/17 10:15 08/29/17 09:04 08/29/17 10:15 08/29/17 09:04 Intake and Output: 08/29/17 08/29/17 06:59 18:59 Intake Total 840 960 Output Total 1300 450 Balance -460 510 - Medications Medications: Current Medications Acetaminophen (Tylenol 325mg Tab) 650 mg PO Q6H PRN PRN Reason: Headache Last Admin: 08/28/17 17:14 Dose: 650 mg Albuterol/Ipratropium (Duoneb 3 Mg/0.5 Mg (3 Ml) Ud) 3 ml IH [id number] Last Admin: 08/29/17 11:21 Dose: Not Given Albuterol/Ipratropium (Duoneb 3 Mg/0.5 Mg (3 Ml) Ud) 3 ml IH Q2H PRN PRN Reason: Shortness of Breath Aspirin (Ecotrin) 81 mg PO DAILY [facility] Last Admin: 08/29/17 10:17 Dose: 81 mg Atorvastatin Calcium (Lipitor) 40 mg PO DIN [facility] Last Admin: 08/28/17 17:14 Dose: 40 mg Benzonatate (Tessalon Perles) 100 mg PO TID PRN PRN Reason: cough Last Admin: 08/29/17 10:15 Dose: 100 mg Carvedilol (Coreg) 3.125 mg PO BID [facility] Last Admin: 08/29/17 10:15 Dose: 3.125 mg Clopidogrel Bisulfate (Plavix) 75 mg PO DAILY [facility] Last Admin: 08/29/17 10:16 Dose: 75 mg Folic Acid (Folic Acid) 1 mg PO DAILY [facility] Last Admin: 08/29/17 10:15 Dose: 1 mg Sodium Chloride (Sodium Chloride 0.9%) 1,000 mls @ 100 mls/hr IV .Q10H [facility] Last Admin: 08/29/17 02:57 Dose: Not Given Levofloxacin/Dextrose (Levaquin 500mg) 500 mg in 100 mls @ 100 mls/hr IVPB DAILY [facility] PRN Reason: Protocol Last Admin: 08/29/17 10:13 Dose: 100 mls/hr Isosorbide Mononitrate (Imdur Er) 30 mg PO DAILY [facility] Last Admin: 08/29/17 10:16 Dose: 30 mg Meloxicam (Mobic) 7.5 mg PO BID PRN PRN Reason: Pain, moderate (4-7) Last Admin: 08/29/17 10:17 Dose: 7.5 mg Methylprednisolone (Solu-Medrol) 30 mg IVP Q8 [facility] Last Admin: 08/29/17 05:44 Dose: 30 mg Montelukast Sodium (Singulair) 10 mg PO DAILY [facility] Last Admin: 08/29/17 10:15 Dose: 10 mg Multivitamins/Minerals (Therapeutic-M Tab) 1 tab PO 0800 [facility] Last Admin: 08/29/17 10:15 Dose: 1 tab Pantoprazole Sodium (Protonix Ec Tab) 40 mg PO 0600 [facility] Last Admin: 08/29/17 05:45 Dose: 40 mg Thiamine HCl (Vitamin B1 Tab) 100 mg PO DAILY [facility] Last Admin: 08/29/17 10:16 Dose: 100 mg - Labs Labs: 08/29/17 05:30 08/29/17 05:30 PT 11.2 SECONDS (9.4-12.5) 08/27/17 19:30 INR 0.98 (0.93-1.08) 08/27/17 19:30 APTT 37.4 Seconds (25.1-36.5) H 08/27/17 19:30 Attending/Attestation - Attestation I have personally seen and examined this patient.: Yes I have fully participated in the care of the patient.: Yes I have reviewed all pertinent clinical information, including history, physical exam and plan: Yes Notes (Text): 08/29/17 15:13 Attending note; Patient seen and examined with resident. Patient is a 62 year old male with past medical history of alcohol abuse, chronic obstructive pulmonary disease, hypertension and CAD s/p stents presents with wheezing, cough, and mucous production. Patient is admitted for acute COPD exacerbation. Continue oxygen, IV Solu-Medrol , advair. Patient is also so on Singulair. Patient continues to smoke. Smoking cessation is strongly advised. History of alcohol abuse. Currently denies any alcohol use. Noncompliance with follow-up. Patient is clinically stable. Possible discharge home tomorrow. Follow-up with PMD Dr. Damon upon discharge. Patient needs close pulmonary follow up.
[2017-08-28] MEDS: Multivitamin With Minerals Tab PO SCH (09:07)
[2017-08-28] MEDS: Sodium Chloride 0.9% 1,000 ML IV SCH (09:07)
[2017-08-28] MEDS: levoFLOXacin 500 mg in D5W 500 MG/100 ML BAG IVPB SCH (09:07)
--- NOTE | 2017-08-28 09:11 | RAD ---
HISTORY: cough COMPARISON: 05/29/2017 FINDINGS: LUNGS: No active pulmonary disease. PLEURA: No significant pleural effusion identified, no pneumothorax apparent. CARDIOVASCULAR: Normal. OSSEOUS STRUCTURES: Sternal wires VISUALIZED UPPER ABDOMEN: Normal. OTHER FINDINGS: None. IMPRESSION: No active disease.
--- NOTE | 2017-08-28 16:21 | CARD ---
APPROVED REPORT EKG Measurement Heart [id number] <Conclusion> Normal sinus rhythm Normal ECG
[2017-08-28 16:47] VITALS: RESP 20
[2017-08-29] MEDS: Albuterol-Ipratrop 3 mg / 0.5 (3 ml) UD IH SCH ×4 (00:10→11:21)
[2017-08-29] MEDS: Sodium Chloride 0.9% 1,000 ML IV SCH (02:57)
[2017-08-29] MEDS: MethylPREDNISolone 40 mg Vial IVP SCH (05:44)
[2017-08-29] MEDS: Pantoprazole 40 mg EC Tab PO SCH (05:45)
[2017-08-29 07:09] LABS: ALB/GLOB RATIO 1.5 (1.1-1.8); ALT/SGPT 28 U/L (7-56); AST/SGOT 31 U/L (17-59); BLOOD UREA NITROGEN 17 mg/dL (7-21); CALCIUM 10.3 mg/dL (8.4-10.5); GFR AFRICAN-AMERICAN > 60; GFR NON-AFRICAN AMERICAN > 60
[2017-08-29 07:13] LABS: GRAN # 5.83 (1.4-6.5); HEMOGLOBIN 11.7 g/dL (14.0-18.0); LYMPH # 0.5 (1.2-3.4); LYMPH % 7.5 % (22.0-35.0); MEAN CELL VOLUME 96.6 fl (80.0-105.0); MEAN CORPUSCULAR HEMOGLOBIN 33.2 pg (25.0-35.0); MEAN CORPUSCULAR HGB CONC 34.4 g/dl (31.0-37.0); MEAN PLATELET VOLUME 9.2 fl (7.0-11.0); MONO # 0.4 (0.1-0.6); MONO % 6.5 % (1.0-6.0); RBC 3.52 10^6/uL (3.5-6.1); RED CELL DISTRIBUTION WIDTH 13.4 % (11.5-14.5); WHITE BLOOD COUNT 6.8 10^3/ul (4.5-11.0)
[2017-08-29 09:05] VITALS: PULSE 80; TEMP 97.9; O2SAT 99
[2017-08-29] MEDS: levoFLOXacin 500 mg in D5W 500 MG/100 ML BAG IVPB SCH (10:13)
[2017-08-29] MEDS: Multivitamin With Minerals Tab PO SCH (10:15)
[2017-08-29 10:23] VITALS: BP 140/70
--- NOTE | 2017-08-29 21:38 | CP.PCM.DIS ---
<Belinda Jung - Last Filed: 08/30/17 18:42> Provider - Provider Date of Admission: 08/27/17 20:49 Attending physician: Capo Ramirez MD Time Spent in preparation of Discharge (in minutes): 45 Diagnosis - Discharge Diagnosis (1) Acute exacerbation of COPD with asthma Status: Acute Priority: Medium Hospital Course - Lab Results Lab Results: Most Recent Lab Values WBC 6.8 10^3/ul (4.5-11.0) D 08/29/17 05:30 RBC 3.52 10^6/uL (3.5-6.1) 08/29/17 05:30 Hgb 11.7 g/dL (14.0-18.0) L 08/29/17 05:30 Hct 34.0 % (42.0-52.0) L 08/29/17 05:30 MCV 96.6 fl (80.0-105.0) 08/29/17 05:30 MCH 33.2 pg (25.0-35.0) 08/29/17 05:30 MCHC 34.4 g/dl (31.0-37.0) 08/29/17 05:30 RDW 13.4 % (11.5-14.5) 08/29/17 05:30 Plt Count 244 10^3/uL (120.0-450.0) 08/29/17 05:30 MPV 9.2 fl (7.0-11.0) 08/29/17 05:30 Gran % 86.0 % (50.0-68.0) H 08/29/17 05:30 Lymph % (Auto) 7.5 % (22.0-35.0) L 08/29/17 05:30 Clarke % (Auto) 6.5 % (1.0-6.0) H 08/29/17 05:30 Eos % (Auto) 0.0 % (1.5-5.0) L 08/29/17 05:30 Baso % (Auto) 0.0 % (0.0-3.0) 08/29/17 05:30 Gran # 5.83 (1.4-6.5) 08/29/17 05:30 Lymph # (Auto) 0.5 (1.2-3.4) L 08/29/17 05:30 Clarke # (Auto) 0.4 (0.1-0.6) 08/29/17 05:30 Eos # (Auto) 0.0 (0.0-0.7) 08/29/17 05:30 Baso # (Auto) 0.00 K/mm3 (0.0-2.0) 08/29/17 05:30 PT 11.2 SECONDS (9.4-12.5) 08/27/17 19:30 INR 0.98 (0.93-1.08) 08/27/17 19:30 APTT 37.4 Seconds (25.1-36.5) H 08/27/17 19:30 Sodium 135 mmol/L (132-148) 08/29/17 05:30 Potassium 4.8 mmol/L (3.6-5.0) 08/29/17 05:30 Chloride 100 mmol/L (98-107) 08/29/17 05:30 Carbon Dioxide 23 mmol/L (21-33) 08/29/17 05:30 Anion Gap 17 (10-20) 08/29/17 05:30 BUN 17 mg/dL (7-21) 08/29/17 05:30 Creatinine 0.7 mg/dl (0.8-1.5) L 08/29/17 05:30 Est GFR ( Amer) > 60 08/29/17 05:30 Est GFR (Non-Af Amer) > 60 08/29/17 05:30 Random Glucose 126 mg/dL (70-110) H 08/29/17 05:30 Serum Osmolality 267 mosm/kg (272-300) L 08/27/17 19:30 Calcium 10.3 mg/dL (8.4-10.5) 08/29/17 05:30 Magnesium 2.0 mg/dL (1.7-2.2) 08/27/17 19:30 Total Bilirubin 0.3 mg/dL (0.2-1.3) 08/29/17 05:30 AST 31 U/L (17-59) 08/29/17 05:30 ALT 28 U/L (7-56) 08/29/17 05:30 Alkaline Phosphatase 53 U/L (38-126) 08/29/17 05:30 Lactate Dehydrogenase 478 U/L (333-699) 08/27/17 19:30 Total Creatine Kinase 135 U/L (35-230) 08/27/17 19:30 Troponin I < 0.01 ng/mL 08/28/17 01:10 Total Protein 6.7 g/dL (5.8-8.3) 08/29/17 05:30 Albumin 4.0 g/dL (3.0-4.8) 08/29/17 05:30 Globulin 2.7 gm/dL 08/29/17 05:30 Albumin/Globulin Ratio 1.5 (1.1-1.8) 08/29/17 05:30 Urine Color Yellow (YELLOW) 08/27/17 20:38 Urine Appearance Clear (CLEAR) 08/27/17 20:38 Urine pH 6.0 (4.7-8.0) 08/27/17 20:38 Ur Specific [place] 1.010 (1.005-1.035) 08/27/17 20:38 Urine Protein Negative mg/dL (<30 mg/dL) 08/27/17 20:38 Urine Glucose (UA) Negative mg/dL (NEGATIVE) 08/27/17 20:38 Urine Ketones Negative mg/dL (NEGATIVE) 08/27/17 20:38 Urine Blood Negative (NEGATIVE) 08/27/17 20:38 Urine Nitrate Negative (NEGATIVE) 08/27/17 20:38 Urine Bilirubin Negative (NEGATIVE) 08/27/17 20:38 Urine Urobilinogen 0.2 E.U./dL (<1 E.U./dL) 08/27/17 20:38 Ur Leukocyte Esterase Negative Jenifer/uL (NEGATIVE) 08/27/17 20:38 Urine Osmolality 225 mosm/kg (300-1000) L 08/27/17 20:38 Ur Random Sodium 10 meq/L 08/27/17 20:38 Alcohol, Quantitative < 10 mg/dL (0-10) 08/28/17 01:10 Influenza Typ A,B (EIA) Negative for flu a/b (NEGATIVE) 08/27/17 19:30 - Hospital Course Hospital Course: 62 year old male with past medical history of alcohol abuse, COPD, hypertension and CAD s/p stents who initally presented with wheezing, cough, and mucous production secondary to COPD exacerbation. Patient was treated with IV steroids , IV antibiotics, and nebulized breathing treatments. Patient noted dramatic, symptomatic improvement with one day of treatment, and wheezing improved dramatically on exam. Today, patient feels markedly better. He is no longer wheezing on exam. He denies any chest pain, shortness of breath, abdominal pain, fever, chills. He was given prescriptions to complete the steroid taper and course of antibiotics. He was also given follow up instructions. All questions were answered to his satisfaction, and he was discharged to home. Discharge Exam - Head Exam Head Exam: ATRAUMATIC, NORMOCEPHALIC - Eye Exam Eye Exam: EOMI, Normal appearance, PERRL Pupil Exam: NORMAL ACCOMODATION - ENT Exam ENT Exam: Mucous Membranes Moist - Neck Exam Neck exam: Normal Inspection - Respiratory Exam Respiratory Exam: Clear to PA & Lateral, NORMAL BREATHING PATTERN. absent: Rales, Rhonchi, Wheezes, Respiratory Distress - Cardiovascular Exam Cardiovascular Exam: RRR, +S1, +S2 - GI/Abdominal Exam GI & Abdominal Exam: Normal Bowel Sounds, Soft. absent: Tenderness - Extremities Exam Extremities exam: normal inspection - Neurological Exam Neurological exam: Alert, CN II-XII Intact, Oriented x3 - Psychiatric Exam Psychiatric exam: Normal Affect, Normal Mood - Skin Skin Exam: Dry, Intact, Normal Color Discharge Plan - Discharge Medications Prescriptions: Azithromycin 250 mg PO DAILY #5 tablet Fluticasone/Salmeterol 500/50 [Advair Diskus] 1 puff IH Q12 #1 dsk Isosorbide Mononitrate ER [Imdur ER] 30 mg PO DAILY #30 tab Methylprednisolone [Medrol Dose Pack (21 tabs)] See Taper PO DAILY #21 mg Omeprazole 40 mg PO ACB #30 ecc Thiamine Mononitrate [Vitamin B-1] 100 mg PO DAILY #30 tablet - Follow Up Plan Condition: STABLE Disposition: HOME/ ROUTINE Instructions: Hyponatremia (DC), COPD (Chronic Obstructive Pulmonary Disease) ( GEN) Additional Instructions: 1. Continue to take medrol dose pack, as instructed 2. Continue to take antibiotics for 5 more days, even if you feel better 3. Follow up with your PMD Dr. Perry within one week 4. For any new or worsening concerns, contact your PCP immediately or return to the ER <Capo Ramirez - Last Filed: 08/31/17 13:37> Provider - Provider Date of Admission: 08/27/17 20:49 Attending physician: Capo Ramirez MD Hospital Course - Lab Results Lab Results: Most Recent Lab Values WBC 6.8 10^3/ul (4.5-11.0) D 08/29/17 05:30 RBC 3.52 10^6/uL (3.5-6.1) 08/29/17 05:30 Hgb 11.7 g/dL (14.0-18.0) L 08/29/17 05:30 Hct 34.0 % (42.0-52.0) L 08/29/17 05:30 MCV 96.6 fl (80.0-105.0) 08/29/17 05:30 MCH 33.2 pg (25.0-35.0) 08/29/17 05:30 MCHC 34.4 g/dl (31.0-37.0) 08/29/17 05:30 RDW 13.4 % (11.5-14.5) 08/29/17 05:30 Plt Count 244 10^3/uL (120.0-450.0) 08/29/17 05:30 MPV 9.2 fl (7.0-11.0) 08/29/17 05:30 Gran % 86.0 % (50.0-68.0) H 08/29/17 05:30 Lymph % (Auto) 7.5 % (22.0-35.0) L 08/29/17 05:30 Clarke % (Auto) 6.5 % (1.0-6.0) H 08/29/17 05:30 Eos % (Auto) 0.0 % (1.5-5.0) L 08/29/17 05:30 Baso % (Auto) 0.0 % (0.0-3.0) 08/29/17 05:30 Gran # 5.83 (1.4-6.5) 08/29/17 05:30 Lymph # (Auto) 0.5 (1.2-3.4) L 08/29/17 05:30 Clarke # (Auto) 0.4 (0.1-0.6) 08/29/17 05:30 Eos # (Auto) 0.0 (0.0-0.7) 08/29/17 05:30 Baso # (Auto) 0.00 K/mm3 (0.0-2.0) 08/29/17 05:30 PT 11.2 SECONDS (9.4-12.5) 08/27/17 19:30 INR 0.98 (0.93-1.08) 08/27/17 19:30 APTT 37.4 Seconds (25.1-36.5) H 08/27/17 19:30 Sodium 135 mmol/L (132-148) 08/29/17 05:30 Potassium 4.8 mmol/L (3.6-5.0) 08/29/17 05:30 Chloride 100 mmol/L (98-107) 08/29/17 05:30 Carbon Dioxide 23 mmol/L (21-33) 08/29/17 05:30 Anion Gap 17 (10-20) 08/29/17 05:30 BUN 17 mg/dL (7-21) 08/29/17 05:30 Creatinine 0.7 mg/dl (0.8-1.5) L 08/29/17 05:30 Est GFR ( Amer) > 60 08/29/17 05:30 Est GFR (Non-Af Amer) > 60 08/29/17 05:30 Random Glucose 126 mg/dL (70-110) H 08/29/17 05:30 Serum Osmolality 267 mosm/kg (272-300) L 08/27/17 19:30 Calcium 10.3 mg/dL (8.4-10.5) 08/29/17 05:30 Magnesium 2.0 mg/dL (1.7-2.2) 08/27/17 19:30 Total Bilirubin 0.3 mg/dL (0.2-1.3) 08/29/17 05:30 AST 31 U/L (17-59) 08/29/17 05:30 ALT 28 U/L (7-56) 08/29/17 05:30 Alkaline Phosphatase 53 U/L (38-126) 08/29/17 05:30 Lactate Dehydrogenase 478 U/L (333-699) 08/27/17 19:30 Total Creatine Kinase 135 U/L (35-230) 08/27/17 19:30 Troponin I < 0.01 ng/mL 08/28/17 01:10 Total Protein 6.7 g/dL (5.8-8.3) 08/29/17 05:30 Albumin 4.0 g/dL (3.0-4.8) 08/29/17 05:30 Globulin 2.7 gm/dL 08/29/17 05:30 Albumin/Globulin Ratio 1.5 (1.1-1.8) 08/29/17 05:30 Urine Color Yellow (YELLOW) 08/27/17 20:38 Urine Appearance Clear (CLEAR) 08/27/17 20:38 Urine pH 6.0 (4.7-8.0) 08/27/17 20:38 Ur Specific [place] 1.010 (1.005-1.035) 08/27/17 20:38 Urine Protein Negative mg/dL (<30 mg/dL) 08/27/17 20:38 Urine Glucose (UA) Negative mg/dL (NEGATIVE) 08/27/17 20:38 Urine Ketones Negative mg/dL (NEGATIVE) 08/27/17 20:38 Urine Blood Negative (NEGATIVE) 08/27/17 20:38 Urine Nitrate Negative (NEGATIVE) 08/27/17 20:38 Urine Bilirubin Negative (NEGATIVE) 08/27/17 20:38 Urine Urobilinogen 0.2 E.U./dL (<1 E.U./dL) 08/27/17 20:38 Ur Leukocyte Esterase Negative Jenifer/uL (NEGATIVE) 08/27/17 20:38 Urine Osmolality 225 mosm/kg (300-1000) L 08/27/17 20:38 Ur Random Sodium 10 meq/L 08/27/17 20:38 Alcohol, Quantitative < 10 mg/dL (0-10) 08/28/17 01:10 Influenza Typ A,B (EIA) Negative for flu a/b (NEGATIVE) 08/27/17 19:30 Attending/Attestation - Attestation I have personally seen and examined this patient.: Yes I have fully participated in the care of the patient.: Yes I have reviewed all pertinent clinical information, including history, physical exam and plan: Yes Notes (Text): 08/31/17 13:36 Attending note; Patient seen and examined with resident. Patient is a 62 year old male with past medical history of alcohol abuse, chronic obstructive pulmonary disease, hypertension and CAD s/p stents presents with wheezing, cough, and mucous production. Patient is admitted for acute COPD exacerbation. treated with oxygen, IV Solu- Medrol, advair. Patient is also so on Singulair. Patient continues to smoke. Smoking cessation is strongly advised. History of alcohol abuse. Currently denies any alcohol use. Noncompliance with follow-up. Patient is clinically stable. Possible discharge home today. prescriptions given. Follow-up with PMD Dr. Damon upon discharge. Patient needs close pulmonary follow up. diagnosis; COPD exacerbation Active smoking Alcohol abuse history of coronary artery disease Noncompliance th follow-up
== END 2017-08-29 15:39 | disposition home or self-care (01) ==
LOC: ED 18:59 → INTOOBSV 20:49 → ERH 20:49 → 3RNO 22:41
PROVIDERS: ADMIT Internal Medicine; ATTEND Internal Medicine
DX: J44.1 Chronic obstructive pulmonary disease with (acute) exacerbation (principal); J45.901 Unspecified asthma with (acute) exacerbation; E87.1 Hypo-osmolality and hyponatremia; I25.10 Atherosclerotic heart disease of native coronary artery without angina pectoris; I10 Essential (primary) hypertension; F17.200 Nicotine dependence, unspecified, uncomplicated; Z59.0 Homelessness; F10.20 Alcohol dependence, uncomplicated; Z88.2 Allergy status to sulfonamides; Z95.5 Presence of coronary angioplasty implant and graft; Z91.19 Patient's noncompliance with other medical treatment and regimen; Y90.0 Blood alcohol level of less than 20 mg/100 ml
CPT/HCPCS: 36415; 71045; 80053; 80320; 81003; 82550; 83615; 83735; 83930; 83935; 84300; 84484; 85025; 85610; 85730; 87804; 93005; 94640; 94760; 96374; 96376; 97116; 97162; 99285; G0378; G8978; G8979; G8980; J2920; J2930; J7040

== ENCOUNTER 2017-09-13 18:58 | Emergency (ER) | payer MEDICAID ==
[2017-09-13 19:10] VITALS: BMI 26.6
--- NOTE | 2017-09-13 20:06 | ED PDOC ---
Arrival/HPI - General Chief Complaint: Alcohol Ingestion Time Seen by Provider: 09/13/17 19:17 Historian: Patient - History of Present Illness Narrative History of Present Illness (Text): 09/13/17 20:00 62 year old male, well-known to the ER, with past medical history of COPD, bronchitis, hypertension, MS, coronary stents, anemia and anxiety, presents to the Emergency department via EMS for alcohol intoxication prior to arrival. Patient has unsteady gait and admits to drinking alcohol today. Patient denies any injuries or complaints. Patient admits to drinking alcohol frequently but denies any substance abuse. Time/Duration: Prior to Arrival Symptom Onset: Gradual Symptom Course: Improving Activities at Onset: Light Context: Street Past Medical History - Provider Review Nursing Documentation Reviewed: Yes - Past History Past History: No Previous - Infectious Disease Hx of Infectious Diseases: None - Tetanus Immunization Tetanus Immunization: Unknown - Cardiac Hx MS: Yes (2006) - Pulmonary Hx Chronic Obstructive Pulmonary Disease (COPD): Yes - Neurological Hx Neurological Disorder: No (denies) - HEENT Hx HEENT Disorder: Yes Hx Cataracts: Yes (right eye) Hx Glaucoma: No - Renal Hx Renal Disorder: No - Endocrine/Metabolic Hx Endocrine Disorders: No - Hematological/Oncological Hx Blood Disorders: Yes (blood transfusion) Hx Anemia: Yes Hx Cancer: No - Integumentary Hx Dermatological Disorder: No - Musculoskeletal/Rheumatological Hx Falls: No - Gastrointestinal Hx Gastrointestinal Disorders: Yes Hx Gall Bladder Disease: Yes (Gall stones removed) Hx Gastroesophageal Reflux: Yes - Genitourinary/Gynecological Hx Genitourinary Disorders: No (denies) - Psychiatric Hx Psychophysiologic Disorder: Yes Hx Anxiety: Yes Hx Substance Use: No - Surgical History Hx Cardiac Catheterization: Yes Hx Coronary Stent: Yes (x3) Hx Open Heart Surgery: Yes - Anesthesia Hx Anesthesia: Yes Hx Anesthesia Reactions: No Hx Malignant Hyperthermia: No - Suicidal Assessment Feels Threatened In Home Enviroment: No Family/Social History - Physician Review Nursing Documentation Reviewed: Yes Family/Social History: No Known Family HX Smoking Status: Current Some Days Smoker Hx Alcohol Use: Yes Frequency of alcohol use: Daily Hx Substance Use: No Substance used: HEROIN, MARIJUANA Hx Substance Use Treatment: No Allergies/Home Meds Allergies/Adverse Reactions: Allergies shellfish derived Allergy (Verified 08/27/17 22:20) ANAPHYLAXIS Sulfa (Sulfonamide Antibiotics) Allergy (Verified 08/27/17 22:20) RASH Review of Systems - Physician Review All systems were reviewed & negative as marked: Yes - Review of Systems Systems not reviewed;Unavailable: Intoxicated Eyes: Normal Respiratory: Normal Musculoskeletal: Normal Skin: Normal Neurological: Gait Changes (unsteady gait s/p alcohol intoxication. ), Speech Changes (Slurred speech s/p alcohol intoxication.) Endocrine: Normal Hemo/Lymphatic: Normal Psychiatric: Normal, Other (alcohol intoxication) Physical Exam Vital Signs Temp Pulse Resp BP Pulse Ox 09/14/17 06:23 98.2 F 89 17 161/84 H 96 09/14/17 02:40 69 17 129/68 96 09/13/17 23:30 65 17 108/61 96 09/13/17 22:37 77 17 101/62 95 Temperature: Afebrile Blood Pressure: Normal Pulse: Regular Respiratory Rate: Normal Appearance: Positive for: Other (intoxicated) Pain Distress: None Mental Status: Positive for: other (intoxicated) - Systems Exam Head: Present: Atraumatic, Normocephalic Pupils: Present: PERRL Extroacular Muscles: Present: EOMI Conjunctiva: Present: Normal Mouth: Present: Moist Mucous Membranes Neck: Present: Normal Range of Motion Respiratory/Chest: Present: Clear to Auscultation, Good Air Exchange. No: Respiratory Distress, Accessory Muscle Use Cardiovascular: Present: Regular Rate and Rhythm, Murmurs, Normal S1, S2, Other (surgical scar at midchest ) Abdomen: Present: Normal Bowel Sounds. No: Tenderness, Distention, Peritoneal Signs Back: Present: Normal Inspection Upper Extremity: Present: Normal Inspection. No: Cyanosis, Edema Lower Extremity: Present: Normal Inspection. No: Edema Neurological: Present: GCS=15, CN II-XII Intact, Speech Normal Skin: Present: Warm, Dry, Normal Color, Other (surgical scar at mid chest). No : Rashes Psychiatric: Present: Alert, Intoxicated (Ataxic gait, unsteady when ambulatory. Very belligerent and uncooperative.) Medical Decision Making ED Course and Treatment: 09/13/17 20:22 Impression: 62 year old male presents to the Emergency department s/p alcohol intoxication. Plan: -- EKG -- Haldol -- Reassess and disposition Progress Notes: 09/13/17 21:04 Upon reassessment, patient is feeling better after administration of 5mg haldol. 09/13/17 21:19 EKG: Ordered, reviewed, and independently interpreted the EKG. Rate : 70 BPM Rhythm : NSR Interpretation : Early repolarization, consistent with previous. - Medication Orders Current Medication Orders: Discontinued Medications Albuterol/Ipratropium (Duoneb 3 Mg/0.5 Mg (3 Ml) Ud) 3 ml IH STAT STA Stop: 09/13/17 22:49 Last Admin: 09/13/17 22:58 Dose: 3 ml Haloperidol Lactate (Haldol) 5 mg IM STAT STA PRN Reason: Protocol Stop: 09/13/17 19:50 Last Admin: 09/13/17 20:09 Dose: 5 mg IM Administration Charges Document 09/13/17 20:09 IT (Rec: 09/13/17 20:09 IT [id number]) Injection Site MAR Injection Site Left Deltoid Charges for Administration # of IM Administrations 1 - Scribe Statement The provider has reviewed the documentation as recorded by the Scribe Mary Jimenez. All medical record entries made by the Scribe were at my direction and personally dictated by me. I have reviewed the chart and agree that the record accurately reflects my personal performance of the history, physical exam, medical decision making, and the department course for this patient. I have also personally directed, reviewed, and agree with the discharge instructions and disposition. Disposition/Present on Arrival - Present on Arrival Any Indicators Present on Arrival: No History of DVT/PE: No History of Uncontrolled Diabetes: No Urinary Catheter: No History of Decub. Ulcer: No History Surgical Site Infection Following: None - Disposition Have Diagnosis and Disposition been Completed?: Yes Diagnosis: Alcohol intoxication Disposition: HOME/ ROUTINE Disposition Time: 10:00 Patient Plan: Discharge Condition: GOOD Discharge Instructions (ExitCare): Alcohol Abuse and Alcoholism (DC) Referrals: Lauren Damon DO [Primary Care Provider] - Follow up with primary Forms: [employer] (Chilean)
[2017-09-13 22:37] VITALS: RESP 17
[2017-09-13] MEDS ORDERED: Albuterol-Ipratrop 3 mg / 0.5 (3 ml) UD IH STA (22:48)
[2017-09-13 23:31] VITALS: O2SAT 96
--- NOTE | 2017-09-13 23:59 | ED PDOC ---
Physical Exam Vital Signs Pulse Resp BP Pulse Ox 09/14/17 02:40 69 17 129/68 96 09/13/17 23:30 65 17 108/61 96 09/13/17 22:37 77 17 101/62 95 Medical Decision Making ED Course and Treatment: 09/13/17 22:30 Case endorsed to me by Dr. Munoz, pending sobriety, re-assessment, and disposition. Re-evaluation Time: 06:11 Reassessment Condition: Re-examined, Improved - Medication Orders Current Medication Orders: Discontinued Medications Albuterol/Ipratropium (Duoneb 3 Mg/0.5 Mg (3 Ml) Ud) 3 ml IH STAT STA Stop: 09/13/17 22:49 Last Admin: 09/13/17 22:58 Dose: 3 ml Haloperidol Lactate (Haldol) 5 mg IM STAT STA PRN Reason: Protocol Stop: 09/13/17 19:50 Last Admin: 09/13/17 20:09 Dose: 5 mg IM Administration Charges Document 09/13/17 20:09 IT (Rec: 09/13/17 20:09 IT [id number]) Injection Site MAR Injection Site Left Deltoid Charges for Administration # of IM Administrations 1 Disposition/Present on Arrival - Present on Arrival Any Indicators Present on Arrival: No History of DVT/PE: No History of Uncontrolled Diabetes: No Urinary Catheter: No History of Decub. Ulcer: No History Surgical Site Infection Following: None - Disposition Have Diagnosis and Disposition been Completed?: Yes Diagnosis: Alcohol intoxication Disposition: HOME/ ROUTINE Disposition Time: 06:11 Condition: GOOD Discharge Instructions (ExitCare): Alcohol Abuse and Alcoholism (DC) Referrals: Lauren Damon DO [Primary Care Provider] - Follow up with primary Forms: [employer] (Sinhala)
[2017-09-14 06:25] VITALS: BP 161/84; PULSE 89; TEMP 98.2
--- NOTE | 2017-09-14 19:11 | CARD ---
APPROVED REPORT EKG Measurement Heart [id number] <Conclusion> Normal sinus rhythm ST elevation, consider early repolarization, pericarditis, or injury Abnormal ECG
== END 2017-09-14 06:25 | disposition home or self-care (01) ==
LOC: ED 18:58
DX: F10.129 Alcohol abuse with intoxication, unspecified (principal); Y90.9 Presence of alcohol in blood, level not specified; I25.2 Old myocardial infarction; I10 Essential (primary) hypertension; Z95.5 Presence of coronary angioplasty implant and graft; F17.210 Nicotine dependence, cigarettes, uncomplicated
CPT/HCPCS: 93005; 96372; 99284; J1630

== ENCOUNTER 2017-10-18 14:46 | Inpatient (IN) | payer MEDICAID ==
[2017-10-18] MEDS ORDERED: Nitroglycerin 2% Ointment Foilpak UD TOP STA (15:02)
[2017-10-18 15:10] VITALS: BMI 23.6
[2017-10-18] MEDS: Albuterol-Ipratrop 3 mg / 0.5 (3 ml) UD IH SCH ×3 (15:15→16:05)
--- NOTE | 2017-10-18 15:40 | ED PDOC ---
Arrival/HPI - General Chief Complaint: Chest Pain Time Seen by Provider: 10/18/17 15:02 Historian: Patient - History of Present Illness Narrative History of Present Illness (Text): 10/18/17 15:05 pt p/w + chest pain since yesterday morning, at most pain was 4/10, across his chest, and radiating down to his left shoulder/arm; pt states he felt intermittent diaphoresis/weakness, + sob/dry coughing; symptoms worsened today and while at work today, was noted to have worsening left sided chest pain/ tightness at most pain was 6/10; pt states + continued sob and with audible wheezing; pt also noted b/l lower ext swelling and pt also took a fall onto his right knee while [place]; pt states + easily fatigued/weak ; no fever/chills, no palpitations, no abd pain, no n/v, no numbness/tingling; pt took his morning ASA as well as a NITROGLYCERINE medication prior to ED arrival with min improvement of his chest pain; pt states no urinary/bowel changes, no travel/sick contact; pt arrived to ED for further eval; pt's without other complaints pt denied drinking today PCP: Dr Damon Cardio: Justyn? pt s/p CABG x 3 and has had 4-5 stents pt + 0.5 pack a day smoker Time/Duration: 24 hours Symptom Onset: Sudden Symptom Course: Worsening Quality: Pressure, Tightness Severity Level: 6, Moderate Activities at Onset: Other (with exertion) Context: Exertion, Home Past Medical History - Provider Review Nursing Documentation Reviewed: Yes - Travel History Have you recently traveled outside [place] w/in the past 3 mons?: No - Past History Past History: No Previous - Infectious Disease Hx of Infectious Diseases: None - Tetanus Immunization Tetanus Immunization: Unknown - Reproductive Currently Lactating: No - Cardiac Hx AR: Yes (2006) - Pulmonary Hx Chronic Obstructive Pulmonary Disease (COPD): Yes - Neurological Hx Neurological Disorder: No (denies) - HEENT Hx HEENT Disorder: Yes Hx Cataracts: Yes (right eye) Hx Glaucoma: No - Renal Hx Renal Disorder: No - Endocrine/Metabolic Hx Endocrine Disorders: No - Hematological/Oncological Hx Blood Disorders: Yes (blood transfusion) Hx Anemia: Yes Hx Cancer: No - Integumentary Hx Dermatological Disorder: No - Musculoskeletal/Rheumatological Hx Falls: No - Gastrointestinal Hx Gastrointestinal Disorders: Yes Hx Gall Bladder Disease: Yes (Gall stones removed) Hx Gastroesophageal Reflux: Yes - Genitourinary/Gynecological Hx Genitourinary Disorders: No (denies) - Psychiatric Hx Psychophysiologic Disorder: Yes Hx Anxiety: Yes Hx Substance Use: No - Surgical History Hx Cardiac Catheterization: Yes Hx Coronary Stent: Yes (x3) Hx Open Heart Surgery: Yes - Anesthesia Hx Anesthesia: Yes Hx Anesthesia Reactions: No Hx Malignant Hyperthermia: No - Suicidal Assessment Feels Threatened In Home Enviroment: No Family/Social History - Physician Review Nursing Documentation Reviewed: Yes Family/Social History: No Known Family HX Smoking Status: Heavy Smoker > 10 Cigarettes Daily Hx Alcohol Use: Yes Hx Substance Use: No Substance used: HEROIN, MARIJUANA Hx Substance Use Treatment: No Allergies/Home Meds Allergies/Adverse Reactions: Allergies shellfish derived Allergy (Verified 08/27/17 22:20) ANAPHYLAXIS Sulfa (Sulfonamide Antibiotics) Allergy (Verified 08/27/17 22:20) RASH Review of Systems - Review of Systems Constitutional: Fatigue Eyes: Normal ENT: Normal Respiratory: SOB, Cough, Wheezing Cardiovascular: Chest Pain, Edema, Orthopnea Gastrointestinal: Normal Genitourinary Male: Normal Musculoskeletal: Normal Skin: Normal Neurological: Dizziness. absent: Headache Endocrine: Diaphoresis Hemo/Lymphatic: Normal Psychiatric: Normal Physical Exam Vital Signs Reviewed: Yes Vital Signs Temp Pulse Resp BP Pulse Ox 10/18/17 15:38 135/73 10/18/17 14:46 98 F 99 H 22 103/62 96 Temperature: Afebrile Blood Pressure: Normal Pulse: Regular Respiratory Rate: Tachypneic Appearance: Positive for: Well-Appearing, Uncomfortable, Other (resting in bed, cooperative, alert/awake, + uncomfortable, mild distress due to resp/chest pain , GCS = 15) Pain Distress: Mild Mental Status: Positive for: Alert and Oriented X 3 - Systems Exam Head: Present: Atraumatic, Normocephalic Pupils: Present: PERRL, Other (no nystagmus, no photophobia, sclera anicteric, visual field intact b/l) Extroacular Muscles: Present: EOMI Conjunctiva: Present: Normal Ears: Present: Normal Mouth: Present: Dry, Other (fair dentitions, mild dry oral mucosa, no drooling/ stridor, no exudate/lesions, no dysphonia) Pharnyx: Present: Normal Nose (External): Present: Atraumatic Nose (Internal): Present: Normal Inspection Neck: Present: Normal Range of Motion, Trachea Midline, Other (no step off, no nuchal rigidity/meningeal signs, intact ROM, no gross deformities). No: MIDLINE TENDERNESS Respiratory/Chest: Present: Wheezes, Tachypneic, Other (+ wheezing diffusely, + tachypenia, mild rales noted b/l, no asymmetric breath sounds noted; no rhonchi noted; + audible wheezing also noted; no accessory muscle use noted). No: Accessory Muscle Use Cardiovascular: Present: Regular Rate and Rhythm, Normal S1, S2. No: Murmurs Abdomen: Present: Normal Bowel Sounds, Other (well nourished male, no focal tenderness, no masses/rebound/guarding/rigidity, no orourke's sign, no mcburney' s point tenderness) Back: Present: Normal Inspection. No: CVA Tenderness, Midline Tenderness Upper Extremity: Present: Normal Inspection, Normal ROM, NORMAL PULSES, Neurovascularly Intact, Other (intact ROM, strength 5/5 grossly intact b/l limbs ) Lower Extremity: Present: Normal Inspection, Edema (+1/5 b/l lower ext pitting edema up to distal 1/3 of the lower ext; neuorvasc intact b/l), NORMAL PULSES, Normal ROM, Neurovascularly Intact, Other (noted superior medial right knee mild ecchymosis; no gross swelling; intact ROM, strength 5-/5 grossly intact b/l ) Neurological: Present: GCS=15, CN II-XII Intact, Speech Normal Skin: Present: Warm, Dry, Other (cap refill ~ 1sec, no ulcerations, no petechiae , faint pallor noted) Psychiatric: Present: Alert, Oriented x 3 Medical Decision Making ED Course and Treatment: 10/18/17 15:05 Impression: chest pain, r/o acs i have consider all the differential diagnosis regarding pt's chief medical complaints/clinical findings, including but are not limited to: chest pain, r/o acs; r/o resp cause (COPD vs CHF vs combination) A/P: chest pain, r/o acs; COPD vs CHF vs both - labs - iv - xray - acs eval - observe - supportive care 10/18/17 15:10 pt took ASA prior to ED arrival pt states current chest pain is ~ 6/10 10/18/17 16:31 lung re-exam: + basiliar wheezing noted, but much improved compare with prior; decr tachypenia pt is more comfortable pt is not in any distress pt still has some chest pressure pt is made aware of his medical results agrees with admission [id number] Dr Dickerson, hospitalists senior sales operations analyst contacted, made aware, agrees with admission Re-evaluation Time: 16:48 Reassessment Condition: Improving,but remains with symptoms - Critical Care Critical Care Minutes: 45 minutes Critical Care Time: Excluding Proc Time Narrative Critical Care (Text): 10/18/17 16:48 critical care time: 45min, excluding procedure time, excluding time teaching residents/students/mid-level providers; including initial eval/diagnosis, diagnostic interpretation, re-eval, consultations, final disposition - Lab Interpretations Lab Results: 10/18/17 15:35 10/18/17 15:35 Lab Results 10/18/17 15:35: Alcohol, Quantitative < 10 10/18/17 15:35: Sodium 126 L, Potassium 4.7, Chloride 92 L, Carbon Dioxide 25, Anion Gap 14, BUN 21, Creatinine 0.7 L, Est GFR ( Amer) > 60, Est GFR ( Non-Af Amer) > 60, Random Glucose 87, Calcium 9.5, Magnesium 1.9, Total Bilirubin 0.3, AST 26, ALT 22, Alkaline Phosphatase 61, Lactate Dehydrogenase 323 L, Total Creatine Kinase 92, Troponin I < 0.01, NT-Pro-B Natriuret Pep 337, Total Protein 6.7, Albumin 4.0, Globulin 2.8, Albumin/Globulin Ratio 1.4 10/18/17 15:35: PT 12.2, INR 1.07, APTT 31.8 10/18/17 15:35: WBC 6.3, RBC 3.32 L, Hgb 11.1 L, Hct 31.9 L, MCV 96.1, MCH 33.4 , MCHC 34.8, RDW 13.5, Plt Count 307, MPV 8.5, Gran % 49.5 L, Lymph % (Auto) 35.8 H, Taliaferro % (Auto) 9.9 H, Eos % (Auto) 4.0, Baso % (Auto) 0.8, Gran # 3.10, Lymph # (Auto) 2.2, Taliaferro # (Auto) 0.6, Eos # (Auto) 0.3, Baso # (Auto) 0.05 I have reviewed the lab results: Yes Interpretation: Abnormal lab values (hyponatremia,) - RAD Interpretation Narrative RAD Interpretations (Text): 10/18/17 16:50 HISTORY: short of breath, chest pain COMPARISON: C6 18 TECHNIQUE: Chest PA and lateral FINDINGS: LUNGS: No active pulmonary disease. PLEURA: No significant pleural effusion identified. No pneumothorax apparent. CARDIOVASCULAR: No radiographic findings to suggest acute or significant cardiovascular disease. Incidental Finding(s): Postoperative changes related to sternotomy. OSSEOUS STRUCTURES: No significant abnormalities. VISUALIZED UPPER ABDOMEN: Normal. OTHER FINDINGS: None. IMPRESSION: No active disease. No significant interval change compared to the prior examination(s). Right knee xay - NO acute fx/dislocation noted Radiology Orders: 10/18/17 15:02 CHEST TWO VIEWS (PA/LAT) [RAD] Stat 10/18/17 15:46 KNEE RIGHT 2 VIEWS (AP & LAT) [RAD] Stat [employer] Instructor: Radiologist - EKG Interpretation EKG Interpretation (Text): 10/18/17 15:39 NSR at 80 bpm, normal axis, no ectopy, non-specific st-t changes, ABNL EKG; unchanged compare with old ekg 08/2017 Interpreted by ED Physician: Yes Type: 12 lead EKG Comparison: Similar to previous EKG - Medication Orders Current Medication Orders: Discontinued Medications Albuterol/Ipratropium (Duoneb 3 Mg/0.5 Mg (3 Ml) Ud) 3 ml IH Q15M MAHSA Stop: 10/18/17 15:46 Last Admin: 10/18/17 16:05 Dose: 3 ml Aspirin (Ecotrin) 81 mg PO STAT STA Stop: 10/18/17 15:03 Last Admin: 10/18/17 15:38 Dose: 81 mg Furosemide (Lasix) 40 mg IVP STAT STA Stop: 10/18/17 15:07 Last Admin: 10/18/17 15:38 Dose: 40 mg MAR Blood Pressure Document 10/18/17 15:38 SRE (Rec: 10/18/17 15:38 SRE [id number]) Blood Pressure Blood Pressure (100/60-150/90) 135/73 IVP Administration Document 10/18/17 15:38 SRE (Rec: 10/18/17 15:38 SRE [id number]) Charges for Administration # of IVP Administrations 1 Methylprednisolone (Solu-Medrol) 125 mg IVP STAT STA Stop: 10/18/17 15:09 Last Admin: 10/18/17 15:39 Dose: 125 mg IVP Administration Document 10/18/17 15:39 SRE (Rec: 10/18/17 15:39 SRE [id number]) Charges for Administration # of IVP Administrations 1 Nitroglycerin (Nitro-Bid 2% Oint) 1 ea TOP STAT STA Stop: 10/18/17 15:03 Last Admin: 10/18/17 15:40 Dose: 1 ea Disposition/Present on Arrival - Present on Arrival Any Indicators Present on Arrival: No History of DVT/PE: No History of Uncontrolled Diabetes: No Urinary Catheter: No History of Decub. Ulcer: No History Surgical Site Infection Following: None - Disposition Have Diagnosis and Disposition been Completed?: Yes Diagnosis: COPD with acute exacerbation, Chest pain with moderate risk of acute coronary syndrome, Respiratory distress, Hyponatremia Diagnosis: (Ruled Out): Respiratory disease Disposition: HOSPITALIZED Disposition Time: 17:00 Patient Plan: Admission, Telemetry Condition: STABLE
[2017-10-18 15:50] LABS: BASO # 0.05 K/mm3 (0.0-2.0); BASO % 0.8 % (0.0-3.0); EOS # 0.3 (0.0-0.7); GRAN # 3.1 (1.4-6.5); GRAN % 49.5 % (50.0-68.0); HEMOGLOBIN 11.1 g/dL (14.0-18.0); LYMPH # 2.2 (1.2-3.4); LYMPH % 35.8 % (22.0-35.0); MEAN CELL VOLUME 96.1 fl (80.0-105.0); MEAN CORPUSCULAR HEMOGLOBIN 33.4 pg (25.0-35.0); MEAN CORPUSCULAR HGB CONC 34.8 g/dl (31.0-37.0); MEAN PLATELET VOLUME 8.5 fl (7.0-11.0); MONO # 0.6 (0.1-0.6); MONO % 9.9 % (1.0-6.0); RBC 3.32 10^6/uL (3.5-6.1); RED CELL DISTRIBUTION WIDTH 13.5 % (11.5-14.5); WHITE BLOOD COUNT 6.3 10^3/ul (4.5-11.0)
[2017-10-18 15:57] LABS: INR 1.07 (0.93-1.08); PARTIAL THROMBOPLASTIN TIME 31.8 Seconds (25.1-36.5); PROTHROMBIN TIME 12.2 SECONDS (9.4-12.5)
[2017-10-18 15:58] LABS: ALB/GLOB RATIO 1.4 (1.1-1.8); ALT/SGPT 22 U/L (7-56); AST/SGOT 26 U/L (17-59); BLOOD UREA NITROGEN 21 mg/dL (7-21); CALCIUM 9.5 mg/dL (8.4-10.5); GFR AFRICAN-AMERICAN > 60; GFR NON-AFRICAN AMERICAN > 60
[2017-10-18 16:09] LABS: B-TYPE NATRIURETIC PEPTIDE 337 pg/mL (0-450); TROPONIN I < 0.01 ng/mL
--- NOTE | 2017-10-18 16:36 | RAD ---
HISTORY: short of breath, chest pain COMPARISON: C6 18 TECHNIQUE: Chest PA and lateral FINDINGS: LUNGS: No active pulmonary disease. PLEURA: No significant pleural effusion identified. No pneumothorax apparent. CARDIOVASCULAR: No radiographic findings to suggest acute or significant cardiovascular disease. Incidental Finding(s): Postoperative changes related to sternotomy. OSSEOUS STRUCTURES: No significant abnormalities. VISUALIZED UPPER ABDOMEN: Normal. OTHER FINDINGS: None. IMPRESSION: No active disease. No significant interval change compared to the prior examination(s).
[2017-10-18] MEDS ORDERED: Morphine 4 mg/ml ISec IVP STA (17:35)
--- NOTE | 2017-10-18 17:47 | CP.PCM.HP ---
Addendum entered and electronically signed by Brigid Kinsey DO 10/18/17 18:54 : resume b-josh if UDS if negatve, PT ordered for fall and gait instability, and PRN ativan for YASMIN Original Note: <Brigid Kinsey - Last Filed: 10/18/17 18:47> History of Present Illness - History of Present Illness History of Present Illness: 62 year old male with a past medical history of alcohol abuse, COPD, active smoking, hypertension and CAD s/p stent and CABG with (last echocardiogram of )with LVEF of 50% who presents with chest pain with radiation to the back and bilateral arms. He also complains of dyspnea despite using his maintanence COPD medications and rescue albuterol inhaler. He denies fever, chills, weight loss, nausea, a productive cough. His last drink was two weeks ago. He admits to still smoking. PMH: last stress test on 04/2017 showed partially reversible anterioseptal defect compared to prior on 10/2016, hypertension, COPD, active smoking, CABG, dyslipidemia, alcohol abuse PSH:Cholecystectomy and appendecomy PMD: Dr. Damon Allergies: Shellfish derived substances, Sulfa Social: Smoker, drinker, homelessness at times, but lives at the [facility] Family History: denies Present on Admission - Present on Admission Any Indicators Present on Admission: No Review of Systems - Review of Systems All systems: reviewed and no additional remarkable complaints except (as per HPI ) Past Patient History - Infectious Disease Hx of Infectious Diseases: None - Tetanus Immunizations Tetanus Immunization: Unknown - Past Medical History & Family History Past Medical History?: Yes - Past Social History Smoking Status: Heavy Smoker > 10 Cigarettes Daily - CARDIAC Hx Heart Attack: Yes (2006) - PULMONARY Hx Chronic Obstructive Pulmonary Disease (COPD): Yes - NEUROLOGICAL Hx Neurological Disorder: No (denies) - HEENT Hx HEENT Problems: Yes Hx Cataracts: Yes (right eye) Hx Glaucoma: No - RENAL Hx Chronic Kidney Disease: No - ENDOCRINE/METABOLIC Hx Endocrine Disorders: No - HEMATOLOGICAL/ONCOLOGICAL Hx Blood Disorders: Yes (blood transfusion) Hx Anemia: Yes Hx Cancer: No - INTEGUMENTARY Hx Dermatological Problems: No - MUSCULOSKELETAL/RHEUMATOLOGICAL Hx Falls: No - GASTROINTESTINAL Hx Gastrointestinal Disorders: Yes Hx Gall Bladder Disease: Yes (Gall stones removed) Hx Gastroesophageal Reflux: Yes - GENITOURINARY/GYNECOLOGICAL Hx Genitourinary Disorders: No (denies) - PSYCHIATRIC Hx Psychophysiologic Disorder: Yes Hx Anxiety: Yes Hx Substance Use: No - SURGICAL HISTORY Hx Cardiac Catheterization: Yes Hx Coronary Stent: Yes (x3) Hx Open Heart Surgery: Yes - ANESTHESIA Hx Anesthesia: Yes Hx Anesthesia Reactions: No Hx Malignant Hyperthermia: No Meds Allergies/Adverse Reactions: Allergies Allergy/AdvReac Type Severity Reaction Status Date / Time shellfish derived Allergy ANAPHYLAXIS Verified 08/27/17 22:20 Sulfa (Sulfonamide Allergy RASH Verified 08/27/17 22:20 Antibiotics) Physical Exam - Constitutional Appears: No Acute Distress, Chronically Ill - Head Exam Head Exam: ATRAUMATIC, NORMOCEPHALIC - Eye Exam Eye Exam: EOMI - ENT Exam ENT Exam: Mucous Membranes Moist, Normal Oropharynx - Neck Exam Neck exam: Positive for: Normal Inspection - Respiratory Exam Respiratory Exam: Clear to Auscultation Bilateral, Prolonged Expiratory Phase, NORMAL BREATHING PATTERN. absent: Accessory Muscle Use - Cardiovascular Exam Cardiovascular Exam: Tachycardia, +S1, +S2 - GI/Abdominal Exam GI & Abdominal Exam: Normal Bowel Sounds. absent: Guarding, Rebound - Extremities Exam Extremities exam: Positive for: normal inspection. Negative for: calf tenderness, pedal edema Additional comments: lower extremity shows varicose veins and right knee has an abrasion, swollen and tender to palpation - Back Exam Back exam: NORMAL INSPECTION. absent: CVA tenderness (L), CVA tenderness (R) - Neurological Exam Neurological exam: Alert, CN II-XII Intact, Oriented x3 - Psychiatric Exam Psychiatric exam: Normal Affect, Normal Mood - Skin Skin Exam: Dry, Intact, Normal Color, Warm Results - Vital Signs Recent Vital Signs: Last Vital Signs Temp 98 F 10/18/17 14:46 Pulse 99 H 10/18/17 14:46 Resp 22 10/18/17 14:46 BP 135/73 10/18/17 15:38 Pulse Ox 96 10/18/17 14:46 - Labs Result Diagrams: 10/18/17 15:35 10/18/17 15:35 - EKG Data Rate: Tachycardia Assessment & Plan - Assessment and Plan (Free Text) Assessment: 62 year old male with CAD, COPD, active smoking, CABG, alcohol abuse, and hypertension who presents with one day of chest pain, dyspnea, and right knee pain secondary to a fall. Plan: 1) Chest pain - Troponin x3, EKG shows sinus tachycardia without evidence of active ischemia , cardiology consulted. 2) COPD - Solumedrol 40 mg IVP q12h - Levalbuterol/Ipratropium q6h MAHSA - Continue with home medication 3) Hyponatremia - Urine Na, Cr, osmolality - Repeat CMP in the AM - 50 ml/hr NS 4) Fall and knee pain - 2 view order, follow up official read - Tylenol for pain 5) DVT/GI prophylaxis - Lovenox - Protonix - Date & Time Date: 10/18/17 Time: 18:44 <Ministerio Dickerson - Last Filed: 10/19/17 07:03> Results - Vital Signs Recent Vital Signs: Last Vital Signs Temp 97.5 F L 10/19/17 05:49 Pulse 70 10/19/17 05:49 Resp 22 10/19/17 05:49 BP 120/51 L 10/19/17 05:52 Pulse Ox 97 10/19/17 05:49 - Labs Result Diagrams: 10/19/17 05:30 10/19/17 05:30 Labs: Laboratory Results - last 24 hr 10/18/17 10/18/17 10/18/17 17:45 17:45 21:28 WBC RBC Hgb Hct MCV MCH MCHC RDW Plt Count MPV Gran % Lymph % (Auto) Mitchell % (Auto) Eos % (Auto) Baso % (Auto) Gran # Lymph # (Auto) Mitchell # (Auto) Eos # (Auto) Baso # (Auto) Sodium Potassium Chloride Carbon Dioxide Anion Gap BUN Creatinine Est GFR ( Amer) Est GFR (Non-Af Amer) Random Glucose Calcium Total Bilirubin AST ALT Alkaline Phosphatase Troponin I < 0.01 Total Protein Albumin Globulin Albumin/Globulin Ratio Urine Color Light yellow Urine Appearance Clear Urine pH 6.0 Ur Specific [place] 1.010 Urine Protein Negative Urine Glucose (UA) Negative Urine Ketones Negative Urine Blood Negative Urine Nitrate Negative Urine Bilirubin Negative Urine Urobilinogen 0.2 Ur Leukocyte Esterase Negative Urine Opiates Screen Negative Urine Methadone Screen Negative Ur Barbiturates Screen Negative Ur Phencyclidine Scrn Negative Ur Amphetamines Screen Negative U Benzodiazepines Scrn Negative U Oth Cocaine Metabols Negative U Cannabinoids Screen Negative 10/19/17 10/19/17 05:30 05:30 WBC 2.9 L* D RBC 3.42 L Hgb 11.4 L Hct 32.8 L MCV 95.9 MCH 33.3 MCHC 34.8 RDW 13.4 Plt Count 306 MPV 8.8 Gran % 80.0 H Lymph % (Auto) 18.2 L Mitchell % (Auto) 1.8 Eos % (Auto) 0.0 L Baso % (Auto) 0.0 Gran # 2.28 Lymph # (Auto) 0.5 L Mitchell # (Auto) 0.1 Eos # (Auto) 0.0 Baso # (Auto) 0.00 Sodium 130 L Potassium 5.2 H Chloride 95 L Carbon Dioxide 25 Anion Gap 16 BUN 28 H Creatinine 0.8 Est GFR ( Amer) > 60 Est GFR (Non-Af Amer) > 60 Random Glucose 139 H Calcium 10.4 Total Bilirubin 0.3 AST 29 ALT 13 Alkaline Phosphatase 59 Troponin I < 0.01 Total Protein 7.5 Albumin 4.4 Globulin 3.0 Albumin/Globulin Ratio 1.4 Urine Color Urine Appearance Urine pH Ur Specific [place] Urine Protein Urine Glucose (UA) Urine Ketones Urine Blood Urine Nitrate Urine Bilirubin Urine Urobilinogen Ur Leukocyte Esterase Urine Opiates Screen Urine Methadone Screen Ur Barbiturates Screen Ur Phencyclidine Scrn Ur Amphetamines Screen U Benzodiazepines Scrn U Oth Cocaine Metabols U Cannabinoids Screen Attending/Attestation - Attestation I have personally seen and examined this patient.: Yes I have fully participated in the care of the patient.: Yes I have reviewed all pertinent clinical information: Yes Notes (Text): 10/18/17 62 year old male with past medical history of CAD, COPD, active smoker, alcohol abuse and hypertension who presents with complaint of chest pain and shortness of breath. Will admit to telemetry unit and obtain serial cardiac enzymes to rule out ACS. Cardiology evaluation is requested. UTox is ordered. Continue with iv steroids and xopenex for COPD exacerbation. He was counselled on smoking cessation. Hyponatremia noted. Workup ordered as above. He also reports right knee pain s/p fall. Will follow up on knee xray. Ministerio Dickerson MD Hospitalist.
[2017-10-18] MEDS: Enoxaparin 40 mg Syringe SC SCH (17:57)
[2017-10-18 18:04] LABS: URINE APPEARANCE CLEAR (CLEAR); URINE BILIRUBIN NEGATIVE (NEGATIVE); URINE BLOOD NEGATIVE (NEGATIVE); URINE COLOR LIGHT YELLOW (YELLOW); URINE GLUCOSE (UA) NEGATIVE (NEGATIVE); URINE LEUKOCYTE ESTERASE NEGATIVE Leu/uL (NEGATIVE); URINE PROTEIN NEGATIVE mg/dL (<30 mg/dL); URINE UROBILINOGEN 0.2 E.U./dL (<1 E.U./dL)
[2017-10-18 19:00] LABS: BARBITURATES, UR NEGATIVE (NEGATIVE); BENZODIAZEPINES, UR NEGATIVE (NEGATIVE); OPIATES, UR NEGATIVE (NEGATIVE); PHENCYCLIDINE, UR NEGATIVE (NEGATIVE)
--- NOTE | 2017-10-18 20:17 | CARD ---
APPROVED REPORT EKG Measurement Heart [id number] AR [id number] <Conclusion> Poor data quality, interpretation may be adversely affected Normal sinus rhythm Normal ECG
[2017-10-18] MEDS ORDERED: Fluticasone-Salmeterol 500-50mcg Diskus IH SCH (22:00)
[2017-10-18] MEDS: MethylPREDNISolone 40 mg Vial IVP SCH (22:10)
[2017-10-18] MEDS: Budesonide 0.5 mg/2 ml Inhal Susp UD IH SCH (23:56)
[2017-10-18] MEDS: Ipratropium 0.02% Inhal Soln (0.5 mg/2.5 ml) UD IH SCH (23:56)
[2017-10-18] MEDS: Arformoterol 15 mcg/2 ml Inh Sol IH SCH (23:56)
[2017-10-18] MEDS: Levalbuterol 1.25 MG/3 ML Inhal Soln UD IH SCH (23:57)
[2017-10-19] MEDS: Ipratropium 0.02% Inhal Soln (0.5 mg/2.5 ml) UD IH SCH ×4 (01:18→23:00)
[2017-10-19] MEDS: Levalbuterol 1.25 MG/3 ML Inhal Soln UD IH SCH ×4 (01:18→23:00)
[2017-10-19] MEDS: Pantoprazole 40 mg EC Tab PO SCH (05:20)
[2017-10-19 05:50] VITALS: O2SAT 97
[2017-10-19 06:43] LABS: TROPONIN I < 0.01 ng/mL
[2017-10-19 06:45] LABS: GRAN # 2.28 (1.4-6.5); HEMOGLOBIN 11.4 g/dL (14.0-18.0); LYMPH # 0.5 (1.2-3.4); LYMPH % 18.2 % (22.0-35.0); MEAN CELL VOLUME 95.9 fl (80.0-105.0); MEAN CORPUSCULAR HEMOGLOBIN 33.3 pg (25.0-35.0); MEAN CORPUSCULAR HGB CONC 34.8 g/dl (31.0-37.0); MEAN PLATELET VOLUME 8.8 fl (7.0-11.0); MONO # 0.1 (0.1-0.6); MONO % 1.8 % (1.0-6.0); RBC 3.42 10^6/uL (3.5-6.1); RED CELL DISTRIBUTION WIDTH 13.4 % (11.5-14.5)
[2017-10-19 06:48] LABS: ALB/GLOB RATIO 1.4 (1.1-1.8); ALBUMIN 4.4 g/dL (3.0-4.8); ALT/SGPT 13 U/L (7-56); AST/SGOT 29 U/L (17-59); BLOOD UREA NITROGEN 28 mg/dL (7-21); CALCIUM 10.4 mg/dL (8.4-10.5); GFR AFRICAN-AMERICAN > 60; GFR NON-AFRICAN AMERICAN > 60; WHITE BLOOD COUNT 2.9 10^3/ul (4.5-11.0)
[2017-10-19 08:12] LABS: FREE T4 0.88 ng/dL (0.78-2.19)
[2017-10-19] MEDS: Arformoterol 15 mcg/2 ml Inh Sol IH SCH ×2 (08:25→23:00)
[2017-10-19 08:26] LABS: T3 0.98 ng/mL (0.97-1.69)
[2017-10-19] MEDS: Budesonide 0.5 mg/2 ml Inhal Susp UD IH SCH ×2 (08:26→23:00)
--- NOTE | 2017-10-19 10:08 | RAD ---
PROCEDURE: Right Knee Radiographs. HISTORY: trip and fall COMPARISON: None. FINDINGS: BONES: Normal. No fracture. JOINTS: Normal. No osteoarthritis. JOINT EFFUSION: None. OTHER FINDINGS: None. IMPRESSION: No acute findings related to/accounting for the clinical presentation.
[2017-10-19] MEDS: Enoxaparin 40 mg Syringe SC SCH (10:10)
[2017-10-19] MEDS: MethylPREDNISolone 40 mg Vial IVP SCH (10:10)
[2017-10-19] MEDS ORDERED: MethylPREDNISolone 40 mg Vial IVP SCH (11:34)
[2017-10-19 11:39] LABS: OSMOLALITY,URINE 305 mosm/kg (300-1000)
--- NOTE | 2017-10-19 16:52 | CP.PCM.PN ---
<Bryan uJngjillianrhianna - Last Filed: 10/19/17 16:41> Subjective - Date & Time of Evaluation Date of Evaluation: 10/19/17 Time of Evaluation: 07:30 - Subjective Subjective: Belinda Jung DO PGY1 - IM Progress Note Patient seen and examined at bedside. Per nursing staff, no acute events overnight. Patient reports slight improvement in his chest pain, cough, and shortness of breath. Denies nausea, vomiting, diarrhea, fever, chills. Patient does admit to continued smoking, despite cessation counselling. Objective - Vital Signs/Intake and Output Vital Signs (last 24 hours): Temp Pulse Resp BP Pulse Ox 97.4 F L 64 18 111/60 97 10/19/17 12:00 10/19/17 12:00 10/19/17 12:00 10/19/17 12:00 10/19/17 05:49 Intake and Output: 10/19/17 10/19/17 06:59 18:59 Intake Total 120 Output Total 2 Balance 118 - Medications Medications: Current Medications Acetaminophen (Tylenol 325mg Tab) 650 mg PO Q6H PRN PRN Reason: Pain, Mild (1-3) Last Admin: 10/19/17 05:19 Dose: 650 mg Arformoterol Tartrate (Brovana) 15 mcg IH [id number] [facility] Last Admin: 10/19/17 08:25 Dose: 15 mcg Aspirin (Ecotrin) 81 mg PO DAILY [facility] Last Admin: 10/19/17 10:11 Dose: 81 mg Atorvastatin Calcium (Lipitor) 40 mg PO DIN [facility] Last Admin: 10/18/17 19:30 Dose: 40 mg Budesonide (Pulmicort Respules) 1 mg IH [id number] [facility] Last Admin: 10/19/17 08:26 Dose: 1 mg Carvedilol (Coreg) 3.125 mg PO BID [facility] Last Admin: 10/19/17 10:10 Dose: Not Given Clopidogrel Bisulfate (Plavix) 75 mg PO DAILY [facility] Last Admin: 10/19/17 10:11 Dose: 75 mg Enoxaparin Sodium (Lovenox) 40 mg SC DAILY [facility] PRN Reason: Protocol Last Admin: 10/19/17 10:10 Dose: 40 mg Folic Acid (Folic Acid) 1 mg PO DAILY [facility] Last Admin: 10/19/17 10:11 Dose: 1 mg Ipratropium [place] (Atrovent) 0.5 mg IH [id number] [facility] Last Admin: 10/19/17 14:13 Dose: 0.5 mg Isosorbide Mononitrate (Imdur Er) 30 mg PO DAILY [facility] Last Admin: 10/19/17 10:11 Dose: 30 mg Levalbuterol HCl (Xopenex) 1.25 mg IH [id number] [facility] Last Admin: 10/19/17 14:11 Dose: 1.25 mg Methylprednisolone (Solu-Medrol) 30 mg IVP Q12 [facility] Stop: 10/19/17 23:59 Methylprednisolone (Solu-Medrol) 20 mg IVP Q12 [facility] Montelukast Sodium (Singulair) 10 mg PO DAILY [facility] Last Admin: 10/19/17 10:11 Dose: 10 mg Nicotine (Nicoderm Cq) 1 patch TD DAILY [facility] Last Admin: 10/19/17 12:44 Dose: 1 patch Pantoprazole Sodium (Protonix Ec Tab) 40 mg PO 0600 [facility] Last Admin: 10/19/17 05:20 Dose: 40 mg Thiamine HCl (Vitamin B1 Tab) 100 mg PO DAILY [facility] Last Admin: 10/19/17 10:11 Dose: 100 mg - Labs Labs: 10/19/17 05:30 10/19/17 05:30 PT 12.2 SECONDS (9.4-12.5) 10/18/17 15:35 INR 1.07 (0.93-1.08) 10/18/17 15:35 APTT 31.8 Seconds (25.1-36.5) 10/18/17 15:35 - Constitutional Appears: Non-toxic, No Acute Distress, Chronically Ill - Head Exam Head Exam: ATRAUMATIC, NORMOCEPHALIC - Eye Exam Eye Exam: EOMI, Normal appearance, PERRL - ENT Exam ENT Exam: Mucous Membranes Moist - Neck Exam Neck Exam: Normal Inspection - Respiratory Exam Respiratory Exam: Decreased Breath Sounds, Clear to Ausculation Bilateral, NORMAL BREATHING PATTERN. absent: Rales, Rhonchi, Wheezes, Respiratory Distress , Stridor - Cardiovascular Exam Cardiovascular Exam: RRR, +S1, +S2. absent: Tachycardia - GI/Abdominal Exam GI & Abdominal Exam: Soft, Normal Bowel Sounds. absent: Tenderness - Extremities Exam Extremities Exam: Normal Inspection. absent: Calf Tenderness, Pedal Edema - Neurological Exam Neurological Exam: Alert, Awake, Oriented x3 - Psychiatric Exam Psychiatric exam: Normal Affect, Normal Mood - Skin Skin Exam: Dry, Intact, Normal Color Assessment and Plan - Assessment and Plan (Free Text) Assessment: 62 year old male with CAD, COPD, active smoking, CABG, alcohol abuse, and hypertension who presents with one day of chest pain, dyspnea, and right knee pain secondary to a fall. Plan: 1) Chest pain - Troponin x3 negative - EKG shows sinus tachycardia without evidence of active ischemia - Patient last had nuclear stress test on 04/26/17; showed partially reversible, small, anteroseptal defect, suspicious for ischemia - Patient had echocardiogram on 02/2017 which showed normal ejection fraction, but hypokinetic mid-septum - Cardiology consulted, appreciate recs 2) COPD exacerbation - Decreased Solumedrol to 30 mg IVP q12h - Levalbuterol/Ipratropium q6h MAHSA - Continue with home medication 3) Hyponatremia - Improving - 50 ml/hr NS 4) Fall and knee pain - Pain improving - Knee XR unremarkable - Tylenol for pain 5) DVT/GI prophylaxis - Lovenox - Protonix Case discussed and reviewed with attending Dr. Dickerson <Ministerio Dickerson - Last Filed: 10/20/17 07:05> Objective - Vital Signs/Intake and Output Vital Signs (last 24 hours): Temp Pulse Resp BP Pulse Ox 97.2 F L 60 18 118/57 L 97 10/19/17 17:21 10/20/17 06:00 10/19/17 17:21 10/19/17 17:32 10/19/17 05:49 Intake and Output: 10/20/17 10/20/17 06:59 18:59 Intake Total 500 Output Total 0 Balance 500 - Medications Medications: Current Medications Acetaminophen (Tylenol 325mg Tab) 650 mg PO Q6H PRN PRN Reason: Pain, Mild (1-3) Last Admin: 10/19/17 05:19 Dose: 650 mg Arformoterol Tartrate (Brovana) 15 mcg IH [id number] [facility] Last Admin: 10/19/17 23:00 Dose: 15 mcg Aspirin (Ecotrin) 81 mg PO DAILY [facility] Last Admin: 10/19/17 10:11 Dose: 81 mg Atorvastatin Calcium (Lipitor) 40 mg PO DIN [facility] Last Admin: 10/19/17 17:33 Dose: 40 mg Budesonide (Pulmicort Respules) 1 mg IH [id number] [facility] Last Admin: 10/19/17 23:00 Dose: 1 mg Carvedilol (Coreg) 3.125 mg PO BID [facility] Last Admin: 10/19/17 17:32 Dose: 3.125 mg Clopidogrel Bisulfate (Plavix) 75 mg PO DAILY [facility] Last Admin: 10/19/17 10:11 Dose: 75 mg Enoxaparin Sodium (Lovenox) 40 mg SC DAILY [facility] PRN Reason: Protocol Last Admin: 10/19/17 10:10 Dose: 40 mg Folic Acid (Folic Acid) 1 mg PO DAILY [facility] Last Admin: 10/19/17 10:11 Dose: 1 mg Sodium Chloride (Sodium Chloride 0.9%) 1,000 mls @ 50 mls/hr IV .Q20H [facility] Last Admin: 10/19/17 22:01 Dose: 50 mls/hr Ipratropium [place] (Atrovent) 0.5 mg IH [id number] [facility] Last Admin: 10/19/17 23:00 Dose: 0.5 mg Isosorbide Mononitrate (Imdur Er) 30 mg PO DAILY [facility] Last Admin: 10/19/17 10:11 Dose: 30 mg Levalbuterol HCl (Xopenex) 1.25 mg IH [id number] [facility] Last Admin: 10/19/17 23:00 Dose: 1.25 mg Methylprednisolone (Solu-Medrol) 20 mg IVP Q12 [facility] Montelukast Sodium (Singulair) 10 mg PO DAILY [facility] Last Admin: 10/19/17 10:11 Dose: 10 mg Nicotine (Nicoderm Cq) 1 patch TD DAILY [facility] Last Admin: 10/19/17 12:44 Dose: 1 patch Pantoprazole Sodium (Protonix Ec Tab) 40 mg PO 0600 [facility] Last Admin: 10/20/17 05:33 Dose: 40 mg Thiamine HCl (Vitamin B1 Tab) 100 mg PO DAILY [facility] Last Admin: 10/19/17 10:11 Dose: 100 mg - Labs Labs: 10/19/17 05:30 10/19/17 05:30 PT 12.2 SECONDS (9.4-12.5) 10/18/17 15:35 INR 1.07 (0.93-1.08) 10/18/17 15:35 APTT 31.8 Seconds (25.1-36.5) 10/18/17 15:35 Attending/Attestation - Attestation I have personally seen and examined this patient.: Yes I have fully participated in the care of the patient.: Yes I have reviewed all pertinent clinical information, including history, physical exam and plan: Yes Notes (Text): 10/19/17 62 year old male with past medical history of CAD, COPD, active smoker, alcohol abuse and hypertension who presented with complaint of chest pain and shortness of breath. Serial cardiac enzymes were negative and ACS was ruled out. Cardiology evaluation is pending. Continue with iv steroids and xopenex for COPD exacerbation. Will taper his steroids today. He was counselled on smoking cessation. Hyponatremia is improving. Will continue to monitor. He also reports right knee pain s/p fall. Knee xray was negative. Ministerio Dickerson MD Hospitalist.
[2017-10-19] MEDS ORDERED: Sod Polystyrene Sulf 15 gm/60 ml Susp PO ONE (20:57)
[2017-10-19] MEDS ORDERED: Sodium Chloride 0.9% 1,000 ML IV SCH (21:00)
[2017-10-20] MEDS: Pantoprazole 40 mg EC Tab PO SCH (05:33)
[2017-10-20 07:13] LABS: GRAN # 9.05 (1.4-6.5); GRAN % 78.2 % (50.0-68.0); HEMOGLOBIN 11.4 g/dL (14.0-18.0); LYMPH # 1.5 (1.2-3.4); LYMPH % 12.7 % (22.0-35.0); MEAN CELL VOLUME 97.4 fl (80.0-105.0); MEAN CORPUSCULAR HGB CONC 33.9 g/dl (31.0-37.0); MEAN PLATELET VOLUME 9.1 fl (7.0-11.0); MONO # 1.1 (0.1-0.6); MONO % 9.1 % (1.0-6.0); RBC 3.45 10^6/uL (3.5-6.1); RED CELL DISTRIBUTION WIDTH 13.8 % (11.5-14.5); WHITE BLOOD COUNT 11.6 10^3/ul (4.5-11.0)
[2017-10-20] MEDS: Ipratropium 0.02% Inhal Soln (0.5 mg/2.5 ml) UD IH SCH ×2 (08:04→13:19)
[2017-10-20] MEDS: Arformoterol 15 mcg/2 ml Inh Sol IH SCH (08:04)
[2017-10-20] MEDS: Budesonide 0.5 mg/2 ml Inhal Susp UD IH SCH (08:04)
[2017-10-20] MEDS: Levalbuterol 1.25 MG/3 ML Inhal Soln UD IH SCH ×2 (08:05→13:19)
[2017-10-20 08:32] LABS: ALB/GLOB RATIO 1.6 (1.1-1.8); ALBUMIN 4.4 g/dL (3.0-4.8); ALT/SGPT 16 U/L (7-56); AST/SGOT 25 U/L (17-59); BLOOD UREA NITROGEN 28 mg/dL (7-21); CALCIUM 10.1 mg/dL (8.4-10.5); GFR AFRICAN-AMERICAN > 60; GFR NON-AFRICAN AMERICAN > 60
[2017-10-20] MEDS: MethylPREDNISolone 40 mg Vial IVP SCH ×2 (09:58→10:14)
[2017-10-20] MEDS: Enoxaparin 40 mg Syringe SC SCH ×2 (09:59→10:12)
[2017-10-20 10:08] VITALS: PULSE 71
[2017-10-20 11:59] VITALS: BP 126/70; RESP 16; TEMP 97.6
--- NOTE | 2017-10-20 15:10 | CARD ---
APPROVED REPORT EKG Measurement Heart [id number] <Conclusion> Normal sinus rhythm ST elevation, probably due to early repolarization Borderline ECG
--- NOTE | 2017-10-20 17:56 | CP.PCM.DIS ---
<Belinda Jung - Last Filed: 10/20/17 17:51> Provider - Provider Date of Admission: 10/18/17 16:38 Attending physician: Ministerio Dickerson MD Primary care physician: Lauren Damon DO Consults: Cardio: Obi Time Spent in preparation of Discharge (in minutes): 45 Diagnosis - Discharge Diagnosis (1) COPD (chronic obstructive pulmonary disease) Status: Acute Priority: Medium Hospital Course - Lab Results Lab Results: Most Recent Lab Values WBC 11.6 10^3/ul (4.5-11.0) H D 10/20/17 06:00 RBC 3.45 10^6/uL (3.5-6.1) L 10/20/17 06:00 Hgb 11.4 g/dL (14.0-18.0) L 10/20/17 06:00 Hct 33.6 % (42.0-52.0) L 10/20/17 06:00 MCV 97.4 fl (80.0-105.0) 10/20/17 06:00 MCH 33.0 pg (25.0-35.0) 10/20/17 06:00 MCHC 33.9 g/dl (31.0-37.0) 10/20/17 06:00 RDW 13.8 % (11.5-14.5) 10/20/17 06:00 Plt Count 330 10^3/uL (120.0-450.0) 10/20/17 06:00 MPV 9.1 fl (7.0-11.0) 10/20/17 06:00 Gran % 78.2 % (50.0-68.0) H 10/20/17 06:00 Lymph % (Auto) 12.7 % (22.0-35.0) L 10/20/17 06:00 [place] % (Auto) 9.1 % (1.0-6.0) H 10/20/17 06:00 Eos % (Auto) 0.0 % (1.5-5.0) L 10/20/17 06:00 Baso % (Auto) 0.0 % (0.0-3.0) 10/20/17 06:00 Gran # 9.05 (1.4-6.5) H 10/20/17 06:00 Lymph # (Auto) 1.5 (1.2-3.4) 10/20/17 06:00 [place] # (Auto) 1.1 (0.1-0.6) H 10/20/17 06:00 Eos # (Auto) 0.0 (0.0-0.7) 10/20/17 06:00 Baso # (Auto) 0.00 K/mm3 (0.0-2.0) 10/20/17 06:00 PT 12.2 SECONDS (9.4-12.5) 10/18/17 15:35 INR 1.07 (0.93-1.08) 10/18/17 15:35 APTT 31.8 Seconds (25.1-36.5) 10/18/17 15:35 Sodium 137 mmol/L (132-148) 10/20/17 06:00 Potassium 5.2 mmol/L (3.6-5.0) H 10/20/17 06:00 Chloride 101 mmol/L (98-107) 10/20/17 06:00 Carbon Dioxide 26 mmol/L (21-33) 10/20/17 06:00 Anion Gap 15 (10-20) 10/20/17 06:00 BUN 28 mg/dL (7-21) H 10/20/17 06:00 Creatinine 0.8 mg/dl (0.8-1.5) 10/20/17 06:00 Est GFR ( Amer) > 60 10/20/17 06:00 Est GFR (Non-Af Amer) > 60 10/20/17 06:00 Random Glucose 97 mg/dL (70-110) 10/20/17 06:00 Calcium 10.1 mg/dL (8.4-10.5) 10/20/17 06:00 Magnesium 1.9 mg/dL (1.7-2.2) 10/18/17 15:35 Total Bilirubin 0.2 mg/dL (0.2-1.3) 10/20/17 06:00 AST 25 U/L (17-59) 10/20/17 06:00 ALT 16 U/L (7-56) 10/20/17 06:00 Alkaline Phosphatase 54 U/L (38-126) 10/20/17 06:00 Lactate Dehydrogenase 323 U/L (333-699) L 10/18/17 15:35 Total Creatine Kinase 92 U/L (35-230) 10/18/17 15:35 Troponin I < 0.01 ng/mL 10/19/17 05:30 NT-Pro-B Natriuret Pep 337 pg/mL (0-450) 10/18/17 15:35 Total Protein 7.3 g/dL (5.8-8.3) 10/20/17 06:00 Albumin 4.4 g/dL (3.0-4.8) 10/20/17 06:00 Globulin 2.9 gm/dL 10/20/17 06:00 Albumin/Globulin Ratio 1.6 (1.1-1.8) 10/20/17 06:00 Free T4 0.88 ng/dL (0.78-2.19) 10/19/17 06:30 Total T3 0.98 ng/mL (0.97-1.69) 10/19/17 06:30 TSH 3rd Generation 5.48 mIU/mL (0.46-4.68) H 10/18/17 15:35 Urine Color Light yellow (YELLOW) 10/18/17 17:45 Urine Appearance Clear (CLEAR) 10/18/17 17:45 Urine pH 6.0 (4.7-8.0) 10/18/17 17:45 Ur Specific [place] 1.010 (1.005-1.035) 10/18/17 17:45 Urine Protein Negative mg/dL (<30 mg/dL) 10/18/17 17:45 Urine Glucose (UA) Negative mg/dL (NEGATIVE) 10/18/17 17:45 Urine Ketones Negative mg/dL (NEGATIVE) 10/18/17 17:45 Urine Blood Negative (NEGATIVE) 10/18/17 17:45 Urine Nitrate Negative (NEGATIVE) 10/18/17 17:45 Urine Bilirubin Negative (NEGATIVE) 10/18/17 17:45 Urine Urobilinogen 0.2 E.U./dL (<1 E.U./dL) 10/18/17 17:45 Ur Leukocyte Esterase Negative Jenifer/uL (NEGATIVE) 10/18/17 17:45 Urine Osmolality 305 mosm/kg (300-1000) 10/18/17 15:35 Ur Random Creatinine 20 mg/dL 10/18/17 15:35 Ur Random Sodium 101 meq/L 10/18/17 15:35 Urine Opiates Screen Negative (NEGATIVE) 10/18/17 17:45 Urine Methadone Screen Negative (NEGATIVE) 10/18/17 17:45 Ur Barbiturates Screen Negative (NEGATIVE) 10/18/17 17:45 Ur Phencyclidine Scrn Negative (NEGATIVE) 10/18/17 17:45 Ur Amphetamines Screen Negative (NEGATIVE) 10/18/17 17:45 U Benzodiazepines Scrn Negative (NEGATIVE) 10/18/17 17:45 U Oth Cocaine Metabols Negative (NEGATIVE) 10/18/17 17:45 U Cannabinoids Screen Negative (NEGATIVE) 10/18/17 17:45 Alcohol, Quantitative < 10 mg/dL (0-10) 10/18/17 15:35 - Hospital Course Hospital Course: 62 year old male with a past medical history of alcohol abuse, COPD, active smoking, hypertension and CAD s/p stent and CABG (last echocardiogram of 02/22/17 ) with LVEF of 50% who presents with chest pain with radiation to the back and bilateral arms. He also complains of dyspnea despite using his maintanence COPD medications and rescue albuterol inhaler. Patient was admitted for chest pain and COPD exacerbation. ACS was ruled out with EKG and serial troponins. Patient does have a history of positive stress test, and was offered - and advised upon - cardiac cath, but he declined. Patient has declined cardiac cath each time it has been offered since the positive stress test last year. Patient was treated for COPD exacerbation with IV steroids and nebulized breathing treatments. Today, patient reports marked improvement in his chest pain and shortness of breath. He denies cough, nausea, vomiting, diarrhea, constipation, fever, chills. The importance of getting cardiac cath was again stressed, and patient again declined. He was subsequently advised to follow up with his primary care doctor and to find a instrument maker to do outpatient cardiac cath. He was given a new prescription for medrol dosepak for steroid taper. All questions were answered to his satisfaction, and he was discharged to home. Discharge Exam - Head Exam Head Exam: ATRAUMATIC, NORMOCEPHALIC - Eye Exam Eye Exam: EOMI, Normal appearance, PERRL - ENT Exam ENT Exam: Mucous Membranes Moist - Neck Exam Neck exam: Normal Inspection - Respiratory Exam Respiratory Exam: Clear to PA & Lateral, NORMAL BREATHING PATTERN, UNREMARKABLE - Cardiovascular Exam Cardiovascular Exam: RRR, +S1, +S2 - GI/Abdominal Exam GI & Abdominal Exam: Normal Bowel Sounds, Soft. absent: Tenderness - Extremities Exam Extremities exam: normal inspection - Neurological Exam Neurological exam: Alert, CN II-XII Intact, Oriented x3 - Psychiatric Exam Psychiatric exam: Normal Affect, Normal Mood - Skin Skin Exam: Dry, Intact, Normal Color Discharge Plan - Discharge Medications Prescriptions: Methylprednisolone [Medrol Dose Pack (21 tabs)] See Taper PO DAILY #21 mg - Follow Up Plan Condition: STABLE Disposition: HOME/ ROUTINE Instructions: Shortness of Breath (Dyspnea) (DC), Exacerbation of COPD (DC), Chest Pain (DC), Hyponatremia (DC) Additional Instructions: 1. Continue to take medrol dose pack, as prescribed 2. Continue all other medication as previously prescribed 3. Follow up with your primary care doctor within one week 4. You need cardiac catheterization, as was recommended to you during your hospitalization, and you should follow up with your primary care doctor and find a instrument maker with whom you should follow up routinely 5. For any new or worsening concerns, contact your PCP immediately or return to the ER Referrals: Flor Crocker MD [Staff Provider] - <Ministerio Dickerson - Last Filed: 10/20/17 18:22> Provider - Provider Date of Admission: 10/18/17 16:38 Attending physician: Ministerio Dickerson MD Primary care physician: Lauren Damon [facility] Course - Lab Results Lab Results: Most Recent Lab Values WBC 11.6 10^3/ul (4.5-11.0) H D 10/20/17 06:00 RBC 3.45 10^6/uL (3.5-6.1) L 10/20/17 06:00 Hgb 11.4 g/dL (14.0-18.0) L 10/20/17 06:00 Hct 33.6 % (42.0-52.0) L 10/20/17 06:00 MCV 97.4 fl (80.0-105.0) 10/20/17 06:00 MCH 33.0 pg (25.0-35.0) 10/20/17 06:00 MCHC 33.9 g/dl (31.0-37.0) 10/20/17 06:00 RDW 13.8 % (11.5-14.5) 10/20/17 06:00 Plt Count 330 10^3/uL (120.0-450.0) 10/20/17 06:00 MPV 9.1 fl (7.0-11.0) 10/20/17 06:00 Gran % 78.2 % (50.0-68.0) H 10/20/17 06:00 Lymph % (Auto) 12.7 % (22.0-35.0) L 10/20/17 06:00 [place] % (Auto) 9.1 % (1.0-6.0) H 10/20/17 06:00 Eos % (Auto) 0.0 % (1.5-5.0) L 10/20/17 06:00 Baso % (Auto) 0.0 % (0.0-3.0) 10/20/17 06:00 Gran # 9.05 (1.4-6.5) H 10/20/17 06:00 Lymph # (Auto) 1.5 (1.2-3.4) 10/20/17 06:00 [place] # (Auto) 1.1 (0.1-0.6) H 10/20/17 06:00 Eos # (Auto) 0.0 (0.0-0.7) 10/20/17 06:00 Baso # (Auto) 0.00 K/mm3 (0.0-2.0) 10/20/17 06:00 PT 12.2 SECONDS (9.4-12.5) 10/18/17 15:35 INR 1.07 (0.93-1.08) 10/18/17 15:35 APTT 31.8 Seconds (25.1-36.5) 10/18/17 15:35 Sodium 137 mmol/L (132-148) 10/20/17 06:00 Potassium 5.2 mmol/L (3.6-5.0) H 10/20/17 06:00 Chloride 101 mmol/L (98-107) 10/20/17 06:00 Carbon Dioxide 26 mmol/L (21-33) 10/20/17 06:00 Anion Gap 15 (10-20) 10/20/17 06:00 BUN 28 mg/dL (7-21) H 10/20/17 06:00 Creatinine 0.8 mg/dl (0.8-1.5) 10/20/17 06:00 Est GFR ( Amer) > 60 10/20/17 06:00 Est GFR (Non-Af Amer) > 60 10/20/17 06:00 Random Glucose 97 mg/dL (70-110) 10/20/17 06:00 Calcium 10.1 mg/dL (8.4-10.5) 10/20/17 06:00 Magnesium 1.9 mg/dL (1.7-2.2) 10/18/17 15:35 Total Bilirubin 0.2 mg/dL (0.2-1.3) 10/20/17 06:00 AST 25 U/L (17-59) 10/20/17 06:00 ALT 16 U/L (7-56) 10/20/17 06:00 Alkaline Phosphatase 54 U/L (38-126) 10/20/17 06:00 Lactate Dehydrogenase 323 U/L (333-699) L 10/18/17 15:35 Total Creatine Kinase 92 U/L (35-230) 10/18/17 15:35 Troponin I < 0.01 ng/mL 10/19/17 05:30 NT-Pro-B Natriuret Pep 337 pg/mL (0-450) 10/18/17 15:35 Total Protein 7.3 g/dL (5.8-8.3) 10/20/17 06:00 Albumin 4.4 g/dL (3.0-4.8) 10/20/17 06:00 Globulin 2.9 gm/dL 10/20/17 06:00 Albumin/Globulin Ratio 1.6 (1.1-1.8) 10/20/17 06:00 Free T4 0.88 ng/dL (0.78-2.19) 10/19/17 06:30 Total T3 0.98 ng/mL (0.97-1.69) 10/19/17 06:30 TSH 3rd Generation 5.48 mIU/mL (0.46-4.68) H 10/18/17 15:35 Urine Color Light yellow (YELLOW) 10/18/17 17:45 Urine Appearance Clear (CLEAR) 10/18/17 17:45 Urine pH 6.0 (4.7-8.0) 10/18/17 17:45 Ur Specific [place] 1.010 (1.005-1.035) 10/18/17 17:45 Urine Protein Negative mg/dL (<30 mg/dL) 10/18/17 17:45 Urine Glucose (UA) Negative mg/dL (NEGATIVE) 10/18/17 17:45 Urine Ketones Negative mg/dL (NEGATIVE) 10/18/17 17:45 Urine Blood Negative (NEGATIVE) 10/18/17 17:45 Urine Nitrate Negative (NEGATIVE) 10/18/17 17:45 Urine Bilirubin Negative (NEGATIVE) 10/18/17 17:45 Urine Urobilinogen 0.2 E.U./dL (<1 E.U./dL) 10/18/17 17:45 Ur Leukocyte Esterase Negative Jenifer/uL (NEGATIVE) 10/18/17 17:45 Urine Osmolality 305 mosm/kg (300-1000) 10/18/17 15:35 Ur Random Creatinine 20 mg/dL 10/18/17 15:35 Ur Random Sodium 101 meq/L 10/18/17 15:35 Urine Opiates Screen Negative (NEGATIVE) 10/18/17 17:45 Urine Methadone Screen Negative (NEGATIVE) 10/18/17 17:45 Ur Barbiturates Screen Negative (NEGATIVE) 10/18/17 17:45 Ur Phencyclidine Scrn Negative (NEGATIVE) 10/18/17 17:45 Ur Amphetamines Screen Negative (NEGATIVE) 10/18/17 17:45 U Benzodiazepines Scrn Negative (NEGATIVE) 10/18/17 17:45 U Oth Cocaine Metabols Negative (NEGATIVE) 10/18/17 17:45 U Cannabinoids Screen Negative (NEGATIVE) 10/18/17 17:45 Alcohol, Quantitative < 10 mg/dL (0-10) 10/18/17 15:35 Attending/Attestation - Attestation I have personally seen and examined this patient.: Yes I have fully participated in the care of the patient.: Yes I have reviewed all pertinent clinical information, including history, physical exam and plan: Yes Notes (Text): 10/20/17 18:19 62 year old male with past medical history of CAD, COPD, active smoker, alcohol abuse and hypertension who presented with complaint of chest pain and shortness of breath. He was admitted for COPD exacerbation and started on iv steroids. His dyspnea improved. Serial cardiac enzymes were negative and ACS was ruled out. He was seen by cardiology. He was noted to have an abnormal stress last year and was recommended cardiac cath at the time which he refused. Today again he refused. He states he understands the risks. He had hyponatremia initially which improved. He is discharged home to follow up with his pmd. Follow up with cardiology. Counselled on smoking cessation. Ministerio Dickerson MD Hospitalist.
--- NOTE | 2017-10-20 20:23 | PN ---
DATE: 10/20/2017 LOCATION: The patient is in room 261, bed 2. This progress note is being written on behalf of Dr. Alejandra, whom I am covering. REASON FOR CONSULTATION: Chest pain. HISTORY OF PRESENT ILLNESS: Patient is a 62-year-old male, known case of coronary artery disease, status post CABG and stent insertion, very poor compliant patient, still continue to smoke heavy and drinks heavy, admitted with multiple complaints of chest pain, shortness of breath, cough, dizziness, numbness of the hand. Consult note dictated yesterday is not in the computer yet; but however, compared to yesterday, the patient states that his symptoms are much better now. He is sitting on the bedside without any respiratory distress or cardiac complaints. PHYSICAL EXAMINATION: VITAL SIGNS: Blood pressure 126/70, respirations 18, pulse 71, temperature 97.6. HEENT: Head is normocephalic. Eyes; pupils are normal. Conjunctivae normal. NECK: JVP is low. Carotids are equal. THORAX: AP diameter normal. LUNGS: Clear. CARDIOVASCULAR: S1 and S2. ABDOMEN: Soft, nontender. No organomegaly. Bowel sounds normal. EXTREMITIES: No clubbing. No cyanosis. LABORATORY DATA: WBC 11.6, hemoglobin 11.4, hematocrit 33.6, platelets 330. Sodium 137, potassium 5.2, BUN 28, creatinine 0.8. AST and ALT normal. Troponin x3 less than 0.01. DIAGNOSES: Chest pain, atypical pain; history of coronary artery disease; history of coronary artery bypass surgery; history of stent insertion; chronic obstructive pulmonary disease; alcohol abuse; tobacco abuse. PLAN: Patient had a stress test on 04/27/2017, which was positive for ischemia. Patient was offered cardiac catheterization at that time, but patient refused and today again, patient is still refusing cardiac catheterization. So, we will continue medical therapy and patient had been told many time to stop smoking and drinking, but he continue to do that. We will follow. Folr Crocker MD
--- NOTE | 2017-10-21 10:02 | CON ---
DATE: 10/19/2017 LOCATION: The patient in room 261, bed 2. This consult is being done on behalf of Dr. Alejandra, whom I am covering. REASON FOR CONSULTATION: Chest pain. HISTORY OF PRESENT ILLNESS: The patient is a 62-year-old male who is a very poor compliant patient, still continuing to smoke heavy and drink heavy. Has history of coronary artery bypass surgery as well as stent insertion, hypertension, hyperlipidemia admitted with chest pain, chest pain sometimes either it is sharp, sometimes it is pressure. He also has local tenderness and when he palpated the chest, he said, 'ya, this is the pain' and the patient also said that he felt numbness of the left hand fingers and states at one time, pain went to the left shoulder. PAST MEDICAL HISTORY: Positive for CABG, stent insertion, cholecystectomy, appendectomy, hypertension, hyperlipidemia, history of COPD. PERSONAL HISTORY: He continue to smoke about a pack a day, continue to drink heavy. HOME MEDICATIONS: Included Coreg 3.125 mg b.i.d., Advair Diskus one puff daily, isosorbide mononitrate 30 mg daily, omeprazole 20 mg daily, thiamine 100 mg daily, folic acid 1 mg daily. ALLERGIES: THE PATIENT ALLERGIC TO SHELLFISH DERIVATIVES AND SULFA. SUBSTANCE ABUSE: The patient has history of marijuana and heroin abuse in the past. FAMILY HISTORY: Not significant. REVIEW OF SYSTEMS: All the systems were reviewed; positive mentioned in the history, others were negative. PHYSICAL EXAMINATION VITAL SIGNS: Blood pressure 118/57, respirations 20, pulse 70, and temperature 97.2. HEENT: Head is normocephalic. Eyes, pupils normal. Conjunctivae normal. Nose and throat normal. NECK: JVP low. LUNGS: Clear. Chest wall tenderness present. CARDIOVASCULAR: S1 and S2. No rub. ABDOMEN: Soft. No tenderness. No organomegaly. Bowel sounds normal. EXTREMITIES: No clubbing. No cyanosis. LABORATORY DATA: WBC 2.9, hemoglobin 11.4, hematocrit 32.4, platelets 306,000. Sodium 130, potassium 5.2, BUN 28, creatinine 0.8. Calcium 10.4. Troponin x3 is negative. Total protein is 7.5. Albumin 4.4. TSH 5.48. EKG showed normal sinus rhythm. Chest x-ray, lungs no acute disease. DIAGNOSES: Chest pain, atypical, tenderness present, history of coronary artery disease, history of bypass surgery, history of stent insertion, chronic obstructive pulmonary disease, hyperlipidemia, anemia, history of alcohol abuse, tobacco abuse. Stress test, 04/2017, partially reversible small anteroseptal defect is suspicious of ischemia. Ejection fraction was 66%. PLAN: The patient had positive stress test 04/27/2017 positive for ischemia and following that, the patient was suggested to have cardiac catheterization by and Dr. Cunningham saw the patient on that admission, but the patient has refused cardiac catheterization. Now, the patient on Coreg 3.125 mg b.i.d., aspirin 81 mg daily, folic acid 1 mg daily, isosorbide mononitrate 30 mg daily, atorvastatin 40 mg p.o. daily, Lovenox 40 mg subcu daily, Plavix 75 mg daily, Protonix 40 mg daily, Singulair 10 mg p.o. daily, methylprednisolone 20 mg IV every 12 hours, thiamine 100 mg p.o. daily, Xopenex p.r.n., and nebulizer therapy. We will follow. Flor Crocker MD
== END 2017-10-20 15:25 | disposition home or self-care (01) | DRG 88 ==
LOC: ED 14:46 → ERH 16:38 → 2RNO 21:16
PROVIDERS: ADMIT Internal Medicine; ATTEND Internal Medicine
PROC: 3E0F7GC Introduction of Other Therapeutic Substance into Respiratory Tract, Via Natural or Artificial Opening (ICD-10-PCS; principal; 2017-10-18)
DX: J44.1 Chronic obstructive pulmonary disease with (acute) exacerbation (principal); E87.1 Hypo-osmolality and hyponatremia; I25.10 Atherosclerotic heart disease of native coronary artery without angina pectoris; I10 Essential (primary) hypertension; F17.210 Nicotine dependence, cigarettes, uncomplicated; M25.561 Pain in right knee; F10.10 Alcohol abuse, uncomplicated; K21.9 Gastro-esophageal reflux disease without esophagitis; E78.5 Hyperlipidemia, unspecified; I25.2 Old myocardial infarction; W19.XXXA Unspecified fall, initial encounter; Z95.1 Presence of aortocoronary bypass graft; Z95.5 Presence of coronary angioplasty implant and graft

== ENCOUNTER 2017-10-25 13:02 | Emergency (ER) | payer MEDICAID ==
[2017-10-25 13:03] VITALS: BMI 26.6
[2017-10-25 13:16] VITALS: TEMP 97.8
--- NOTE | 2017-10-25 13:22 | ED PDOC ---
Arrival/HPI - General Chief Complaint: Chest Pain Time Seen by Provider: 10/25/17 13:15 Historian: Patient - History of Present Illness Narrative History of Present Illness (Text): 10/25/17 13:47 62 year old male, with past medical history of hypertension, COPD, TIA, Coronary stent, cholecystectomy and arthritis, presents to the Emergency department complaining of chest pain since this morning. Patient informs similar symptoms yesterday and was relieved after taking nitroglycerin. Patient states worsening symptoms today bringing him to the Emergency department department. Patient denies any fever, chills, nausea, vomiting, diarrhea, abdominal pain, chest pain or any other complaints. Patient admits to drinking every day and smoking 2-3 cigarette packs a day. PMD: Dr. Damon Time/Duration: 4-6 hours Symptom Onset: Sudden Symptom Course: Unchanged Quality: Aching Activities at Onset: Light Context: Home Past Medical History - Provider Review Nursing Documentation Reviewed: Yes - Past History Past History: No Previous - Infectious Disease Hx of Infectious Diseases: None - Tetanus Immunization Tetanus Immunization: Unknown - Reproductive Currently Lactating: No - Cardiac Hx Hypertension: Yes - Pulmonary Hx Chronic Obstructive Pulmonary Disease (COPD): Yes - Neurological Hx Neurological Disorder: Yes Hx Transient Ischemic Attacks (TIA): Yes - HEENT Hx HEENT Disorder: Yes Hx Cataracts: Yes - Renal Hx Renal Disorder: Yes Hx Kidney Stones: Yes - Endocrine/Metabolic Hx Endocrine Disorders: No - Hematological/Oncological Hx Blood Disorders: No - Integumentary Hx Dermatological Disorder: No - Musculoskeletal/Rheumatological Hx Musculoskeletal Disorders: Yes Hx Arthritis: Yes Hx Degenerative Joint Disease: Yes - Gastrointestinal Hx Gastrointestinal Disorders: Yes Hx Gastroesophageal Reflux: Yes - Genitourinary/Gynecological Hx Genitourinary Disorders: Yes Hx Urinary Tract Infection: Yes - Psychiatric Hx Psychophysiologic Disorder: Yes Hx Anxiety: Yes Hx Substance Use: Yes - Surgical History Hx Cardiac Catheterization: Yes Hx Cholecystectomy: Yes Hx Coronary Stent: Yes - Anesthesia Hx Anesthesia: Yes Hx Anesthesia Reactions: No Hx Malignant Hyperthermia: No - Suicidal Assessment Feels Threatened In Home Enviroment: No Family/Social History - Physician Review Nursing Documentation Reviewed: Yes Family/Social History: No Known Family HX Smoking Status: Current Some Days Smoker Hx Alcohol Use: Yes Hx Substance Use: Yes Substance used: HEROIN, MARIJUANA Hx Substance Use Treatment: No Allergies/Home Meds Allergies/Adverse Reactions: Allergies shellfish derived Allergy (Verified 08/27/17 22:20) ANAPHYLAXIS Sulfa (Sulfonamide Antibiotics) Allergy (Verified 08/27/17 22:20) RASH Home Medications: Home Meds Medication Instructions Recorded Confirmed Nitroglycerin 0.4 mg/hr 0.4 mg SL PRN 10/20/17 Ventolin HFA 90 mcg/actuation (8 g) 1 puff NEB PRN PRN 10/20/17 10/25/17 Review of Systems - Physician Review All systems were reviewed & negative as marked: Yes - Review of Systems Constitutional: Normal. absent: Fevers Eyes: Normal ENT: Normal Respiratory: Normal. absent: SOB Cardiovascular: Chest Pain Gastrointestinal: Normal. absent: Abdominal Pain, Diarrhea, Nausea, Vomiting Genitourinary Male: Normal Musculoskeletal: Normal Skin: Normal Neurological: Normal Endocrine: Normal Hemo/Lymphatic: Normal Psychiatric: Normal Physical Exam Vital Signs Reviewed: Yes Vital Signs Temp Pulse Resp BP Pulse Ox 10/25/17 16:54 75 20 104/54 L 98 10/25/17 14:37 80 20 103/58 L 96 10/25/17 13:14 97.8 F 80 18 133/73 95 Temperature: Afebrile Blood Pressure: Normal Pulse: Regular Respiratory Rate: Normal Appearance: Positive for: Other (frail and thin.) Pain Distress: None Mental Status: Positive for: Alert and Oriented X 3 - Systems Exam Head: Present: Atraumatic, Normocephalic Pupils: Present: PERRL Extroacular Muscles: Present: EOMI Conjunctiva: Present: Normal Mouth: Present: Moist Mucous Membranes Neck: Present: Normal Range of Motion Respiratory/Chest: Present: Good Air Exchange, Wheezes (bilaterally and in all dong.). No: Respiratory Distress, Accessory Muscle Use Cardiovascular: Present: Regular Rate and Rhythm, Normal S1, S2. No: Murmurs Abdomen: No: Tenderness, Distention, Peritoneal Signs Back: Present: Normal Inspection Upper Extremity: Present: Normal Inspection. No: Cyanosis, Edema Lower Extremity: Present: Normal Inspection. No: Edema Neurological: Present: GCS=15, CN II-XII Intact, Speech Normal Skin: Present: Warm, Dry, Normal Color. No: Rashes Psychiatric: Present: Alert, Oriented x 3, Normal Insight, Normal Concentration Medical Decision Making ED Course and Treatment: 10/25/17 13:21 Impression: 62 year old male presents to the Emergency department for chest pain. Plan: -- Labs -- Chest X-ray -- Albuterol -- Aspirin -- solumedrol -- Nitroglycerin -- Urinalysis -- Reassess and disposition Prior Visits: Notes and results from previous visits were reviewed. Patient was seen on 10/08/17 for chest pain. Patient was admitted to the hospital for further observation. Progress Notes: 10/25/17 13:21 EKG: Ordered, reviewed, and independently interpreted the EKG. Rate : 79 BPM Rhythm : NSR Interpretation : ST elevation noted, primarily in aVLII, aVLIII, V4 and V5. Comparison : No changes observed from EKG performed on 10/19/2017. 10/25/17 17:04 Patient denies any further treatment. Patient is in stable condition to be discharged home will follow-up instructions. - Lab Interpretations Lab Results: 10/25/17 13:45 10/25/17 13:45 Lab Results 10/25/17 13:45: Alcohol, Quantitative < 10 10/25/17 13:45: Sodium 133, Potassium 4.4, Chloride 96 L, Carbon Dioxide 27, Anion Gap 14, BUN 21, Creatinine 0.7 L, Est GFR ( Amer) > 60, Est GFR ( Non-Af Amer) > 60, Random Glucose 106, Calcium 9.3, Total Bilirubin 0.3, AST 24 , ALT 23, Alkaline Phosphatase 59, Lactate Dehydrogenase 295 L, Total Creatine Kinase 54, Troponin I < 0.01, NT-Pro-B Natriuret Pep 129, Total Protein 6.8, Albumin 3.9, Globulin 2.8, Albumin/Globulin Ratio 1.4, Lipase 166 10/25/17 13:45: PT 11.9, INR 1.04 10/25/17 13:45: WBC 9.0 D, RBC 3.40 L, Hgb 11.4 L, Hct 33.5 L, MCV 98.5, MCH 33.5, MCHC 34.0, RDW 13.8, Plt Count 307, MPV 8.7, Gran % 72.9 H, Lymph % (Auto ) 15.4 L, [place] % (Auto) 8.4 H, Eos % (Auto) 3.1, Baso % (Auto) 0.2, Gran # 6.54 H, Lymph # (Auto) 1.4, [place] # (Auto) 0.8 H, Eos # (Auto) 0.3, Baso # (Auto) 0.02 - RAD Interpretation Radiology Orders: 10/25/17 13:18 CXR [CHEST PORTABLE] [RAD] Stat - Medication Orders Current Medication Orders: Discontinued Medications Albuterol Sulfate (Albuterol 0.083% Inhal Lidya (2.5 Mg/3 Ml) Ud) 2.5 mg INH STAT STA Stop: 10/25/17 13:24 Last Admin: 10/25/17 14:06 Dose: 2.5 mg Albuterol/Ipratropium (Duoneb 3 Mg/0.5 Mg (3 Ml) Ud) 3 ml IH STAT STA Stop: 10/25/17 13:24 Last Admin: 10/25/17 14:00 Dose: 3 ml Albuterol/Ipratropium (Duoneb 3 Mg/0.5 Mg (3 Ml) Ud) 3 ml IH STAT STA Stop: 10/25/17 15:20 Aspirin (Aspirin Chewable) 324 mg PO STAT STA Stop: 10/25/17 13:17 Last Admin: 10/25/17 14:00 Dose: 324 mg Methylprednisolone (Solu-Medrol) 125 mg IVP STAT STA Stop: 10/25/17 13:24 Last Admin: 10/25/17 14:00 Dose: 125 mg IVP Administration Document 10/25/17 14:00 SRE (Rec: 10/25/17 14:00 SRE [id number]) Charges for Administration # of IVP Administrations 1 Nitroglycerin (Nitrostat Sl Tab) 0.4 mg SL STAT STA Stop: 10/25/17 13:17 Last Admin: 10/25/17 13:55 Dose: 0.4 mg - Scribe Statement The provider has reviewed the documentation as recorded by the Sarahibinga Jimenez. All medical record entries made by the Arina were at my direction and personally dictated by me. I have reviewed the chart and agree that the record accurately reflects my personal performance of the history, physical exam, medical decision making, and the department course for this patient. I have also personally directed, reviewed, and agree with the discharge instructions and disposition. Disposition/Present on Arrival - Present on Arrival Any Indicators Present on Arrival: No History of DVT/PE: No History of Uncontrolled Diabetes: No Urinary Catheter: No History of Decub. Ulcer: No History Surgical Site Infection Following: None - Disposition Have Diagnosis and Disposition been Completed?: Yes Diagnosis: COPD (chronic obstructive pulmonary disease), HTN (hypertension), Chest pain Disposition: HOME/ ROUTINE Disposition Time: 17:02 Patient Plan: Discharge Condition: GOOD Discharge Instructions (ExitCare): Chronic Obstructive Pulmonary Disease (COPD) , Including Emphysema, Chest Pain (ED) Additional Instructions: Mr Roberts, Please follow up with your doctor on Saturday. Return to us if worse or new symptoms occur. Take all of your medicines as prescribed. Carlos- Dr. Uriel Wade Forms: [employer] (Slovenian)
[2017-10-25] MEDS ORDERED: Albuterol-Ipratrop 3 mg / 0.5 (3 ml) UD IH STA ×2 (13:23→15:19)
[2017-10-25] MEDS ORDERED: Albuterol 0.083% Inhal Sol (2.5 mg/3 mL) UD INH STA (13:23)
--- NOTE | 2017-10-25 13:44 | RAD ---
HISTORY: chest pain COMPARISON: 10/18/2017 FINDINGS: LUNGS: No active pulmonary disease. PLEURA: No significant pleural effusion identified, no pneumothorax apparent. CARDIOVASCULAR: Normal. OSSEOUS STRUCTURES: Sternal wires. VISUALIZED UPPER ABDOMEN: Normal. OTHER FINDINGS: None. IMPRESSION: No active disease.
[2017-10-25 14:07] LABS: BASO # 0.02 K/mm3 (0.0-2.0); BASO % 0.2 % (0.0-3.0); EOS # 0.3 (0.0-0.7); EOS % 3.1 % (1.5-5.0); GRAN # 6.54 (1.4-6.5); GRAN % 72.9 % (50.0-68.0); HEMOGLOBIN 11.4 g/dL (14.0-18.0); LYMPH # 1.4 (1.2-3.4); LYMPH % 15.4 % (22.0-35.0); MEAN CELL VOLUME 98.5 fl (80.0-105.0); MEAN CORPUSCULAR HEMOGLOBIN 33.5 pg (25.0-35.0); MEAN PLATELET VOLUME 8.7 fl (7.0-11.0); MONO # 0.8 (0.1-0.6); MONO % 8.4 % (1.0-6.0); RBC 3.4 10^6/uL (3.5-6.1); RED CELL DISTRIBUTION WIDTH 13.8 % (11.5-14.5)
[2017-10-25 14:15] LABS: INR 1.04 (0.93-1.08); PROTHROMBIN TIME 11.9 SECONDS (9.4-12.5)
[2017-10-25 14:26] LABS: ALB/GLOB RATIO 1.4 (1.1-1.8); ALBUMIN 3.9 g/dL (3.0-4.8); ALT/SGPT 23 U/L (7-56); AST/SGOT 24 U/L (17-59); BLOOD UREA NITROGEN 21 mg/dL (7-21); CALCIUM 9.3 mg/dL (8.4-10.5); GFR AFRICAN-AMERICAN > 60; GFR NON-AFRICAN AMERICAN > 60; LIPASE 166 U/L (23-300)
[2017-10-25 14:29] LABS: B-TYPE NATRIURETIC PEPTIDE 129 pg/mL (0-450); TROPONIN I < 0.01 ng/mL
[2017-10-25 14:39] VITALS: RESP 20
[2017-10-25 16:55] VITALS: BP 104/54; PULSE 75; O2SAT 98
--- NOTE | 2017-10-26 16:29 | CARD ---
APPROVED REPORT EKG Measurement Heart [id number] <Conclusion> Normal sinus rhythm ST elevation, probably due to early repolarization Borderline ECG
== END 2017-10-25 18:07 | disposition home or self-care (01) ==
LOC: ED 13:02
DX: J44.9 Chronic obstructive pulmonary disease, unspecified (principal); I10 Essential (primary) hypertension; R07.9 Chest pain, unspecified; Z86.73 Personal history of transient ischemic attack (TIA), and cerebral infarction without residual deficits; Z95.5 Presence of coronary angioplasty implant and graft; F17.210 Nicotine dependence, cigarettes, uncomplicated
CPT/HCPCS: 71045; 80053; 80320; 82550; 83615; 83690; 83880; 84484; 85025; 85610; 93005; 94640; 96374; 99284; J2930

== ENCOUNTER 2018-02-23 08:19 | Emergency (ER) | payer MEDICARE, MEDICAID ==
[2018-02-23 08:29] VITALS: BMI 22.8
[2018-02-23] MEDS ORDERED: Albuterol-Ipratrop 3 mg / 0.5 (3 ml) UD IH STA (08:40)
--- NOTE | 2018-02-23 08:55 | ED PDOC ---
Arrival/HPI - General Chief Complaint: Shortness Of Breath Time Seen by Provider: 02/23/18 08:36 Historian: Patient - History of Present Illness Narrative History of Present Illness (Text): 02/23/18 08:40 A 63 year old male, whose past medical history includes hypertension, COPD, TIA , coronary stent, CABG (10 yrs ago), cholecystectomy and arthritis, presents to the emergency department complaining of chest pain and shortness of breath since this morning. Patient reports while he was on his way to the diner, he began experiencing symptoms. States he took his Aspirin but has not taken his Nitrates. Patient notes he is still a smoker, and that he has been sober for approximately 1 year. Patient denies any other complaints at this time. No PMD Time/Duration: Other (earlier this morning) Symptom Onset: Sudden Symptom Course: Unchanged Associated Symptoms (Text): 02/23/18 08:56 Well-known to the emergency Department staff. Patient complains of chest pain and shortness of breath this morning while on his way to get breakfast. He did not take his nitrates. He reports he was admitted to a different hospital last week for similar complaints. He reports he has been sober for the last year. He continues to smoke. Past Medical History - Provider Review Nursing Documentation Reviewed: Yes - Past History Past History: No Previous - Infectious Disease Hx of Infectious Diseases: None - Tetanus Immunization Tetanus Immunization: Unknown - Reproductive Currently Lactating: No - Cardiac Hx Hypertension: Yes - Pulmonary Hx Chronic Obstructive Pulmonary Disease (COPD): Yes - Neurological Hx Neurological Disorder: Yes Hx Transient Ischemic Attacks (TIA): Yes - HEENT Hx HEENT Disorder: Yes Hx Cataracts: Yes - Renal Hx Renal Disorder: Yes Hx Kidney Stones: Yes - Endocrine/Metabolic Hx Endocrine Disorders: No - Hematological/Oncological Hx Blood Disorders: No - Integumentary Hx Dermatological Disorder: No - Musculoskeletal/Rheumatological Hx Musculoskeletal Disorders: Yes Hx Arthritis: Yes Hx Degenerative Joint Disease: Yes - Gastrointestinal Hx Gastrointestinal Disorders: Yes Hx Gastroesophageal Reflux: Yes - Genitourinary/Gynecological Hx Genitourinary Disorders: Yes Hx Urinary Tract Infection: Yes - Psychiatric Hx Psychophysiologic Disorder: Yes Hx Anxiety: Yes Hx Substance Use: Yes - Surgical History Hx Cardiac Catheterization: Yes Hx Cholecystectomy: Yes Hx Coronary Stent: Yes - Anesthesia Hx Anesthesia: Yes Hx Anesthesia Reactions: No Hx Malignant Hyperthermia: No - Suicidal Assessment Feels Threatened In Home Enviroment: No Family/Social History - Physician Review Nursing Documentation Reviewed: Yes Family/Social History: No Known Family HX Smoking Status: Light Smoker < 10 Cigarettes Daily Hx Alcohol Use: No Hx Substance Use: Yes Substance used: HEROIN, MARIJUANA Hx Substance Use Treatment: No Allergies/Home Meds Allergies/Adverse Reactions: Allergies shellfish derived Allergy (Verified 08/27/17 22:20) ANAPHYLAXIS Sulfa (Sulfonamide Antibiotics) Allergy (Verified 08/27/17 22:20) RASH Home Medications: Home Meds Medication Instructions Recorded Confirmed Ventolin HFA 90 mcg/actuation (8 g) 1 puff NEB PRN PRN 10/20/17 02/23/18 Atorvastatin [Lipitor] 10 mg PO DIN 02/23/18 02/23/18 Azithromycin [Zithromax] 250 mg PO DAILY 02/23/18 02/23/18 Benzonatate [Tessalon Perles] 100 mg PO 02/23/18 Cyanocobalamin [Vitamin B12 100 1 tab PO DAILY 02/23/18 02/23/18 mcg Tab] Meloxicam [Mobic] 7.5 mg PO DAILY 02/23/18 02/23/18 Montelukast [Singulair] 10 mg PO DAILY 02/23/18 02/23/18 Nitroglycerin [Nitrotab] 0.4 mg SL PRN 02/23/18 02/23/18 Omeprazole 40 mg PO DAILY 02/23/18 02/23/18 Prednisone [Prednisone Intensol] 20 mg PO DAILY 02/23/18 02/23/18 Review of Systems - Physician Review All systems were reviewed & negative as marked: Yes - Review of Systems Constitutional: absent: Fatigue, Fevers, Night Sweats Respiratory: SOB. absent: Cough Cardiovascular: Chest Pain. absent: Palpitations, Syncope Gastrointestinal: absent: Abdominal Pain, Diarrhea, Nausea, Vomiting Neurological: absent: Headache, Dizziness, Focal Weakness Physical Exam Vital Signs Reviewed: Yes Vital Signs Temp Pulse Resp BP Pulse Ox 02/23/18 11:51 101 H 18 113/58 L 100 02/23/18 10:20 62 18 115/56 L 98 02/23/18 08:30 20 02/23/18 08:28 98.3 F 73 18 144/82 98 Temperature: Afebrile Blood Pressure: Normal Pulse: Regular Respiratory Rate: Normal Appearance: Positive for: Well-Appearing, Non-Toxic, Comfortable Pain Distress: None Mental Status: Positive for: Alert and Oriented X 3 - Systems Exam Head: Present: Atraumatic, Normocephalic Pupils: Present: PERRL Extroacular Muscles: Present: EOMI Conjunctiva: Present: Normal Mouth: Present: Moist Mucous Membranes Pharnyx: No: ERYTHEMA, EXUDATE, TONSILS ENLARGED Respiratory/Chest: Present: Wheezes (mild wheezing bilaterally), Decreased Breath Sounds. No: Respiratory Distress, Accessory Muscle Use, Rales, Retracting, Rhonchi, Tachypneic, Tender to Palpation Cardiovascular: Present: Regular Rate and Rhythm, Normal S1, S2. No: Murmurs Abdomen: No: Tenderness, Distention, Peritoneal Signs, Rebound, Guarding Upper Extremity: Present: Normal Inspection. No: Cyanosis, Edema Lower Extremity: Present: Normal Inspection. No: Edema Neurological: Present: GCS=15, CN II-XII Intact, Speech Normal, Motor Func Grossly Intact Skin: Present: Warm, Dry, Normal Color. No: Rashes Psychiatric: Present: Alert, Oriented x 3, Normal Insight, Normal Concentration Medical Decision Making ED Course and Treatment: 02/23/18 08:44 Impression: 63 year old male with chest pain and shortness of breath. Physical exam shows mild wheezing bilaterally, no respiratory distress, no retractions, no accessory muscle use. Plan: -- EKG -- Chest X-ray -- Labs -- Duoneb -- Nitrostat SL Tab -- Reassess and disposition Prior Visits: Notes and results from previous visits were reviewed. Patient was last seen in the emergency department on 10/25/2017 for chest pain. Patient was discharged home. Progress Notes: 02/23/18 08:58 EKG shows normal sinus rhythm rate approximately [address] or T-wave changes 02/23/18 09:30 Patient's workup is unremarkable. Initial troponin is negative. We will send a second troponin. 02/23/18 13:34 2 troponins are negative. Patient is feeling better and will be discharged home to follow-up with PMD. Follow up in ER as needed. - Lab Interpretations Lab Results: 02/23/18 08:45 02/23/18 08:45 Lab Results 02/23/18 12:50: Troponin I < 0.01 02/23/18 09:20: Alcohol, Quantitative < 10 02/23/18 08:45: Sodium 138, Potassium 4.6, Chloride 99, Carbon Dioxide 28, Anion Gap 15, BUN 30 H, Creatinine 0.9, Est GFR ( Amer) > 60, Est GFR ( Non-Af Amer) > 60, Random Glucose 92, Calcium 9.9, Magnesium 2.3 H, Total Bilirubin 0.7, AST 21, ALT 16, Alkaline Phosphatase 62, Lactate Dehydrogenase 334, Total Creatine Kinase 49, Troponin I < 0.01, NT-Pro-B Natriuret Pep 133, Total Protein 7.3, Albumin 4.5, Globulin 2.8, Albumin/Globulin Ratio 1.6 02/23/18 08:45: PT 10.7, INR 0.93, APTT 25.0 L, D-Dimer, Quantitative < 200 02/23/18 08:45: WBC 7.4, RBC 4.24, Hgb 13.8 L D, Hct 39.6 L, MCV 93.4 D, MCH 32.5, MCHC 34.8, RDW 12.6, Plt Count 252, MPV 9.0, Gran % 44.6 L, Lymph % (Auto ) 43.5 H, [place] % (Auto) 9.9 H, Eos % (Auto) 1.9, Baso % (Auto) 0.1, Gran # 3.30 , Lymph # (Auto) 3.2, [place] # (Auto) 0.7 H, Eos # (Auto) 0.1, Baso # (Auto) 0.01 - RAD Interpretation Radiology Orders: 02/23/18 08:40 CHEST PORTABLE [RAD] Stat - Medication Orders Current Medication Orders: Discontinued Medications Albuterol/Ipratropium (Duoneb 3 Mg/0.5 Mg (3 Ml) Ud) 3 ml IH STAT STA Stop: 02/23/18 08:41 Last Admin: 02/23/18 08:52 Dose: 3 ml Methylprednisolone (Solu-Medrol) 125 mg IVP ONCE ONE Stop: 02/23/18 09:50 Last Admin: 02/23/18 10:13 Dose: 125 mg IVP Administration Document 02/23/18 10:13 EWO (Rec: 02/23/18 10:13 [id number] [id number]) Charges for Administration # of IVP Administrations 1 Nitroglycerin (Nitrostat Sl Tab) 0.4 mg SL Q5M MAHSA Stop: 02/23/18 08:56 Last Admin: 02/23/18 08:55 Dose: 0.4 mg - Scribe Statement The provider has reviewed the documentation as recorded by the Arina Nichols Provider Scribe Attestation: All medical record entries made by the Sarahibinga were at my direction and personally dictated by me. I have reviewed the chart and agree that the record accurately reflects my personal performance of the history, physical exam, medical decision making, and the department course for this patient. I have also personally directed, reviewed, and agree with the discharge instructions and disposition. Disposition/Present on Arrival - Present on Arrival Any Indicators Present on Arrival: No History of DVT/PE: No History of Uncontrolled Diabetes: No Urinary Catheter: No History of Decub. Ulcer: No History Surgical Site Infection Following: None - Disposition Have Diagnosis and Disposition been Completed?: Yes Diagnosis: Chest pain, COPD (chronic obstructive pulmonary disease) Disposition: HOME/ ROUTINE Disposition Time: 13:35 Patient Plan: Discharge Condition: GOOD Discharge Instructions (ExitCare): Chest Pain (ED), Chest Pain, Chronic Obstructive Pulmonary Disease (COPD), Including Emphysema Forms: [employer] (Maori)
[2018-02-23 09:09] LABS: ALB/GLOB RATIO 1.6 (1.1-1.8); ALBUMIN 4.5 g/dL (3.0-4.8); ALT/SGPT 16 U/L (7-56); AST/SGOT 21 U/L (17-59); BLOOD UREA NITROGEN 30 mg/dL (7-21); CALCIUM 9.9 mg/dL (8.4-10.5); GFR AFRICAN-AMERICAN > 60; GFR NON-AFRICAN AMERICAN > 60
[2018-02-23 09:13] LABS: BASO # 0.01 K/mm3 (0.0-2.0); BASO % 0.1 % (0.0-3.0); EOS # 0.1 (0.0-0.7); EOS % 1.9 % (1.5-5.0); GRAN # 3.3 (1.4-6.5); GRAN % 44.6 % (50.0-68.0); HEMOGLOBIN 13.8 g/dL (14.0-18.0); LYMPH # 3.2 (1.2-3.4); LYMPH % 43.5 % (22.0-35.0); MEAN CELL VOLUME 93.4 fl (80.0-105.0); MEAN CORPUSCULAR HEMOGLOBIN 32.5 pg (25.0-35.0); MEAN CORPUSCULAR HGB CONC 34.8 g/dl (31.0-37.0); MONO # 0.7 (0.1-0.6); MONO % 9.9 % (1.0-6.0); RBC 4.24 10^6/uL (3.5-6.1); RED CELL DISTRIBUTION WIDTH 12.6 % (11.5-14.5); WHITE BLOOD COUNT 7.4 10^3/ul (4.5-11.0)
[2018-02-23 09:16] LABS: INR 0.93; PROTHROMBIN TIME 10.7 SECONDS (9.4-12.5)
[2018-02-23 09:22] LABS: B-TYPE NATRIURETIC PEPTIDE 133 pg/mL (0-450); TROPONIN I < 0.01 ng/mL
--- NOTE | 2018-02-23 09:23 | RAD ---
Date of service: 02/23/2018 HISTORY: cp COMPARISON: 10/25/2017 FINDINGS: LUNGS: No active pulmonary disease. PLEURA: No significant pleural effusion identified, no pneumothorax apparent. CARDIOVASCULAR: Normal. OSSEOUS STRUCTURES: No significant abnormalities. VISUALIZED UPPER ABDOMEN: Normal. OTHER FINDINGS: None. IMPRESSION: No active disease.
[2018-02-23 09:29] LABS: D DIMER < 200 ng/mL
[2018-02-23 10:31] VITALS: RESP 18
[2018-02-23 13:43] VITALS: BP 128/79; PULSE 72; TEMP 98.6; O2SAT 99
--- NOTE | 2018-02-24 06:52 | CARD ---
APPROVED REPORT Date of service: 02/23/2018 EKG Measurement Heart [id number] <Conclusion> Normal sinus rhythm Normal ECG
== END 2018-02-23 13:42 | disposition home or self-care (01) ==
LOC: ED 08:19
DX: J44.9 Chronic obstructive pulmonary disease, unspecified (principal); R07.9 Chest pain, unspecified; I10 Essential (primary) hypertension; F17.210 Nicotine dependence, cigarettes, uncomplicated; Z86.73 Personal history of transient ischemic attack (TIA), and cerebral infarction without residual deficits; Z95.1 Presence of aortocoronary bypass graft
CPT/HCPCS: 71045; 80053; 82550; 83615; 83735; 83880; 84484; 85025; 85378; 85610; 85730; 93005; 96374; 99283; G0480; J2930

== ENCOUNTER 2018-02-27 15:14 | Inpatient (IN) | payer MEDICAID, MEDICARE ==
[2018-02-27] MEDS ORDERED: METHYLPREDNISOLONE IV ONE (15:59)
[2018-02-27] MEDS ORDERED: Ipratropium 0.02% Inhal Soln (0.5 mg/2.5 ml) UD IH STA (15:59)
[2018-02-27] MEDS ORDERED: SODIUM CHLORIDE 0.9% IV ONE (15:59)
[2018-02-27] MEDS ORDERED: Albuterol 0.5% Inhal Sol (2.5 mg/0.5 ml) UD IH STA (15:59)
--- NOTE | 2018-02-27 16:02 | ED PDOC ---
Arrival/HPI - General Chief Complaint: Shortness Of Breath Time Seen by Provider: 02/27/18 15:29 Historian: Patient - History of Present Illness Narrative History of Present Illness (Text): 02/27/18 15:58 63 year old male, whose past medical history includes an [place], 5 cardiac stents, and hyperlipidemia, who presents to the ED complaining of chest pain. Patient notes associated hand tingling, worse in left hand, and SOB upon exertion. Patient described pain as a sharp chest pain. Patient denies any nausea, vomiting, neck pain, abdominal pain, headache, or any other complaints. Time/Duration: 4-6 hours Symptom Onset: Sudden Symptom Course: Unchanged Activities at Onset: Light Context: Walking Past Medical History - Provider Review Nursing Documentation Reviewed: Yes - Past History Past History: No Previous - Infectious Disease Hx of Infectious Diseases: None - Tetanus Immunization Tetanus Immunization: Unknown - Reproductive Currently Lactating: No - Cardiac Hx Hypertension: Yes Other/Comment: 5 cardiac stent. triple bypass - Pulmonary Hx Chronic Obstructive Pulmonary Disease (COPD): Yes - Neurological Hx Neurological Disorder: Yes Hx Transient Ischemic Attacks (TIA): Yes - HEENT Hx HEENT Disorder: Yes Hx Cataracts: Yes - Renal Hx Renal Disorder: Yes Hx Kidney Stones: Yes - Endocrine/Metabolic Hx Endocrine Disorders: No - Hematological/Oncological Hx Blood Disorders: No - Integumentary Hx Dermatological Disorder: No - Musculoskeletal/Rheumatological Hx Musculoskeletal Disorders: Yes Hx Arthritis: Yes Hx Degenerative Joint Disease: Yes - Gastrointestinal Hx Gastrointestinal Disorders: Yes Hx Gastroesophageal Reflux: Yes - Genitourinary/Gynecological Hx Genitourinary Disorders: Yes Hx Urinary Tract Infection: Yes - Psychiatric Hx Psychophysiologic Disorder: Yes Hx Anxiety: Yes Hx Substance Use: Yes - Surgical History Hx Cardiac Catheterization: Yes Hx Cholecystectomy: Yes Hx Coronary Stent: Yes Hx Open Heart Surgery: Yes (triple bypass) - Anesthesia Hx Anesthesia: Yes Hx Anesthesia Reactions: No Hx Malignant Hyperthermia: No - Suicidal Assessment Feels Threatened In Home Enviroment: No Family/Social History - Physician Review Nursing Documentation Reviewed: Yes Family/Social History: Unknown Family HX Smoking Status: Light Smoker < 10 Cigarettes Daily Hx Alcohol Use: Yes Hx Substance Use: Yes Substance used: HEROIN, MARIJUANA Hx Substance Use Treatment: No Allergies/Home Meds Allergies/Adverse Reactions: Allergies shellfish derived Allergy (Verified 08/27/17 22:20) ANAPHYLAXIS Sulfa (Sulfonamide Antibiotics) Allergy (Verified 08/27/17 22:20) RASH Home Medications: Home Meds Medication Instructions Recorded Confirmed Ventolin HFA 90 mcg/actuation (8 g) 1 puff NEB PRN PRN 10/20/17 02/23/18 Atorvastatin [Lipitor] 10 mg PO DIN 02/23/18 02/23/18 Benzonatate [Tessalon Perles] 100 mg PO 02/23/18 Cyanocobalamin [Vitamin B12 100 1 tab PO DAILY 02/23/18 02/23/18 mcg Tab] Meloxicam [Mobic] 7.5 mg PO DAILY 02/23/18 02/23/18 Montelukast [Singulair] 10 mg PO DAILY 02/23/18 02/23/18 Nitroglycerin [Nitrotab] 0.4 mg SL PRN 02/23/18 02/23/18 Omeprazole 40 mg PO DAILY 02/23/18 02/23/18 Prednisone [Prednisone Intensol] 20 mg PO DAILY 02/23/18 02/23/18 Review of Systems - Physician Review All systems were reviewed & negative as marked: Yes - Review of Systems Constitutional: Normal Eyes: Normal ENT: Normal Respiratory: SOB. absent: Cough Cardiovascular: Chest Pain Gastrointestinal: Normal. absent: Abdominal Pain, Diarrhea, Nausea, Vomiting Genitourinary Male: Normal. absent: Dysuria, Frequency, Hematuria Musculoskeletal: Normal. absent: Back Pain, Neck Pain Skin: Normal. absent: Rash Neurological: Normal. absent: Headache, Dizziness Endocrine: Normal Hemo/Lymphatic: Normal Psychiatric: Normal Physical Exam Vital Signs Reviewed: Yes Vital Signs Temp Pulse Resp BP Pulse Ox 02/27/18 18:23 83 18 103/56 L 96 02/27/18 16:52 20 02/27/18 15:14 98.9 F 88 20 137/69 93 L Temperature: Afebrile Blood Pressure: Normal Pulse: Regular Respiratory Rate: Normal Appearance: Positive for: Well-Appearing, Non-Toxic, Comfortable Pain Distress: None Mental Status: Positive for: Alert and Oriented X 3 - Systems Exam Head: Present: Atraumatic, Normocephalic Pupils: Present: PERRL Extroacular Muscles: Present: EOMI Conjunctiva: Present: Normal Mouth: Present: Moist Mucous Membranes Neck: Present: Normal Range of Motion Respiratory/Chest: Present: Clear to Auscultation, Good Air Exchange. No: Respiratory Distress, Accessory Muscle Use Cardiovascular: Present: Regular Rate and Rhythm, Normal S1, S2. No: Murmurs Abdomen: No: Tenderness, Distention, Peritoneal Signs Back: Present: Normal Inspection Upper Extremity: Present: Normal Inspection. No: Cyanosis, Edema Lower Extremity: Present: Normal Inspection. No: Edema Neurological: Present: GCS=15, CN II-XII Intact, Speech Normal Skin: Present: Warm, Dry, Normal Color. No: Rashes Psychiatric: Present: Alert, Oriented x 3, Normal Insight, Normal Concentration Medical Decision Making ED Course and Treatment: 02/27/18 16:04 Impression: 63 year old male presents to the ED complaining of chest pain today. Plan: -- EKG -- Labs -- Troponin -- CXR -- Albuterol -- Atrovent -- SOLU-Medrol Progress Notes: 02/27/18 18:45 CXR reviewed, shows: IMPRESSION: No active disease. No significant interval change compared to the prior examination(s). Heart score 6+ given RF, AGE will admit. Case discussed with cardiology, Dr. Alejandra, who suggests admission and 1mg/kg Lovenox every 12 hours. Case discussed with Dr. Whitten, who accepts admission. Pt states he is feeling better. l 02/27/18 19:07 - Lab Interpretations Lab Results: 02/27/18 16:50 02/27/18 16:50 Lab Results 02/27/18 16:50: Sodium 136, Potassium 4.7, Chloride 98, Carbon Dioxide 26, Anion Gap 16, BUN 21, Creatinine 0.9, Est GFR ( Amer) > 60, Est GFR (Non- Af Amer) > 60, Random Glucose 91, Calcium 9.1, Total Bilirubin 0.8, AST 26, ALT 28, Alkaline Phosphatase 67, Troponin I < 0.01, Total Protein 7.3, Albumin 4.4, Globulin 2.9, Albumin/Globulin Ratio 1.5 02/27/18 16:50: WBC 7.5, RBC 4.26, Hgb 13.9 L, Hct 39.7 L, MCV 93.2, MCH 32.6, MCHC 35.0, RDW 12.8, Plt Count 240, MPV 9.0, Gran % 47.5 L, Lymph % (Auto) 39.2 H, [place] % (Auto) 10.1 H, Eos % (Auto) 2.8, Baso % (Auto) 0.4, Gran # 3.57, Lymph # (Auto) 3.0, [place] # (Auto) 0.8 H, Eos # (Auto) 0.2, Baso # (Auto) 0.03 - RAD Interpretation Radiology Orders: 02/27/18 15:59 CHEST TWO VIEWS (PA/LAT) [RAD] Stat - EKG Interpretation Interpreted by ED Physician: Yes (No stemi) Type: 12 lead EKG - Medication Orders Current Medication Orders: Enoxaparin Sodium (Lovenox) 70 mg SC Q12H MAHSA PRN Reason: Protocol Stop: 02/28/18 06:46 Discontinued Medications Albuterol/Ipratropium (Duoneb 3 Mg/0.5 Mg (3 Ml) Ud) 3 ml IH Q15M MAHSA Stop: 02/27/18 17:31 Last Admin: 02/27/18 18:03 Dose: 3 ml Aspirin (Aspirin) 325 mg PO STAT STA Stop: 02/27/18 18:24 Last Admin: 02/27/18 18:37 Dose: 325 mg Methylprednisolone (Solu-Medrol) 125 mg IVP ONCE ONE Stop: 02/27/18 16:16 Last Admin: 02/27/18 16:55 Dose: 125 mg IVP Administration Document 02/27/18 16:55 GMD (Rec: 02/27/18 16:55 [facility] [place]-[id number]) Charges for Administration # of IVP Administrations 1 - Scribe Statement The provider has reviewed the documentation as recorded by the Scribe Joan Simpson All medical record entries made by the Scribe were at my direction and personally dictated by me. I have reviewed the chart and agree that the record accurately reflects my personal performance of the history, physical exam, medical decision making, and the department course for this patient. I have also personally directed, reviewed, and agree with the discharge instructions and disposition. Disposition/Present on Arrival - Present on Arrival Any Indicators Present on Arrival: No History of DVT/PE: No History of Uncontrolled Diabetes: No Urinary Catheter: No History of Decub. Ulcer: No History Surgical Site Infection Following: None - Disposition Have Diagnosis and Disposition been Completed?: Yes Diagnosis: Angina effort Disposition: HOSPITALIZED Disposition Time: 18:36 Patient Plan: Admission Patient Problems: Current Active Problems Problem Status Onset Angina effort Acute Condition: GOOD Discharge Instructions (ExitCare): Chest Pain (ED) Referrals: aLuren Damon DO [Primary Care Provider] - Follow up with primary Forms: [employer] ([place])
[2018-02-27] MEDS: Albuterol-Ipratrop 3 mg / 0.5 (3 ml) UD IH SCH ×3 (16:55→18:03)
[2018-02-27 17:08] LABS: BASO # 0.03 K/mm3 (0.0-2.0); BASO % 0.4 % (0.0-3.0); EOS # 0.2 (0.0-0.7); EOS % 2.8 % (1.5-5.0); GRAN # 3.57 (1.4-6.5); GRAN % 47.5 % (50.0-68.0); HEMOGLOBIN 13.9 g/dL (14.0-18.0); LYMPH % 39.2 % (22.0-35.0); MEAN CELL VOLUME 93.2 fl (80.0-105.0); MEAN CORPUSCULAR HEMOGLOBIN 32.6 pg (25.0-35.0); MONO # 0.8 (0.1-0.6); MONO % 10.1 % (1.0-6.0); RBC 4.26 10^6/uL (3.5-6.1); RED CELL DISTRIBUTION WIDTH 12.8 % (11.5-14.5); WHITE BLOOD COUNT 7.5 10^3/ul (4.5-11.0)
--- NOTE | 2018-02-27 17:13 | RAD ---
Date of service: 02/27/2018 HISTORY: chest pain COMPARISON: 02/23/2018 TECHNIQUE: Chest PA and lateral FINDINGS: LUNGS: No active pulmonary disease. PLEURA: No significant pleural effusion identified. No pneumothorax apparent. CARDIOVASCULAR: No radiographic findings to suggest acute or significant cardiovascular disease. Incidental Finding(s): Postoperative changes related to sternotomy. OSSEOUS STRUCTURES: No significant abnormalities. Healed posterior lateral left rib fractures. VISUALIZED UPPER ABDOMEN: Normal. OTHER FINDINGS: None. IMPRESSION: No active disease. No significant interval change compared to the prior examination(s).
[2018-02-27 17:17] LABS: ALB/GLOB RATIO 1.5 (1.1-1.8); ALBUMIN 4.4 g/dL (3.0-4.8); ALT/SGPT 28 U/L (7-56); AST/SGOT 26 U/L (17-59); BLOOD UREA NITROGEN 21 mg/dL (7-21); CALCIUM 9.1 mg/dL (8.4-10.5); GFR AFRICAN-AMERICAN > 60; GFR NON-AFRICAN AMERICAN > 60
[2018-02-27 17:26] LABS: TROPONIN I < 0.01 ng/mL
[2018-02-27] MEDS ORDERED: Enoxaparin 80 mg Syringe SC SCH (18:45)
--- NOTE | 2018-02-27 21:45 | CARD ---
APPROVED REPORT Date of service: 02/27/2018 EKG Measurement Heart [id number] <Conclusion> Normal sinus rhythm Normal ECG
[2018-02-27 21:58] LABS: INR 0.99; PARTIAL THROMBOPLASTIN TIME 28.1 Seconds (25.1-36.5); PROTHROMBIN TIME 11.3 SECONDS (9.4-12.5)
[2018-02-27] MEDS: Enoxaparin 80 mg Syringe SC SCH (22:13)
[2018-02-27 23:46] VITALS: BMI 24.1
[2018-02-28 02:04] VITALS: RESP 18
[2018-02-28 06:37] LABS: GRAN # 3.3 (1.4-6.5); GRAN % 77.3 % (50.0-68.0); HEMOGLOBIN 13.6 g/dL (14.0-18.0); LYMPH # 0.8 (1.2-3.4); MEAN CELL VOLUME 93.8 fl (80.0-105.0); MEAN CORPUSCULAR HEMOGLOBIN 32.5 pg (25.0-35.0); MEAN CORPUSCULAR HGB CONC 34.6 g/dl (31.0-37.0); MEAN PLATELET VOLUME 9.1 fl (7.0-11.0); MONO # 0.2 (0.1-0.6); MONO % 3.7 % (1.0-6.0); RBC 4.19 10^6/uL (3.5-6.1); RED CELL DISTRIBUTION WIDTH 12.7 % (11.5-14.5); WHITE BLOOD COUNT 4.3 10^3/ul (4.5-11.0)
[2018-02-28 06:39] VITALS: O2SAT 99
[2018-02-28 07:07] LABS: IRON 49 ug/dL (45-180)
[2018-02-28 07:17] LABS: % IRON SATURATION 18 % (20-55); TOTAL IRON BINDING CAPACITY 264 ug/dL (261-462)
[2018-02-28 07:18] LABS: BLOOD UREA NITROGEN 25 mg/dL (7-21); CALCIUM 9.6 mg/dL (8.4-10.5); GFR AFRICAN-AMERICAN > 60; GFR NON-AFRICAN AMERICAN > 60
[2018-02-28 07:20] LABS: TROPONIN I < 0.01 ng/mL
[2018-02-28] MEDS ORDERED: Pantoprazole 40 mg EC Tab PO SCH (07:30)
[2018-02-28] MEDS: Albuterol-Ipratrop 3 mg / 0.5 (3 ml) UD IH SCH ×2 (07:50→14:02)
[2018-02-28] MEDS ORDERED: Meloxicam 7.5 MG TAB PO SCH (10:00)
[2018-02-28] MEDS: Enoxaparin 80 mg Syringe SC SCH (10:40)
[2018-02-28 11:37] VITALS: BP 125/75; PULSE 73; TEMP 97.8
[2018-02-28 12:18] LABS: FERRITIN 68.5 ng/mL
--- NOTE | 2018-02-28 16:43 | CON ---
Copied To: Lauro Alejandra MD Attending MD: Lauro Alejandra MD DATE: 02/28/2018 CARDIOLOGY CONSULTATION HISTORY: The patient is a 63-year-old male with one of multiple admissions for sharp focal chest discomfort lasting several minutes. The patient is currently asymptomatic. PAST MEDICAL HISTORY: The patient's past medical history is notable for history of documented multivessel CAD as well as COPD. He has a long history of noncompliance and does not show up for followup nor does he take medications consistently. SOCIAL HISTORY: The patient denies smoking now. MEDICATIONS: It is unclear which medication he is on or not. REVIEW OF SYSTEMS: Fourteen-point review of systems is reviewed in detail. His chest pain is now resolved. Denies shortness of breath. No other cardiac symptoms. PHYSICAL EXAMINATION: VITAL SIGNS: Blood pressure is 107/50, the heart rate is in the 60s. NECK: Negative JVD. LUNGS: Without rales. HEART: Reveals S1, S2. EXTREMITIES: Without edema. LABORATORY DATA: Hemoglobin is 13.6. Chemistries: Troponins are negative x2. BUN and creatinine are unremarkable. EKG is unremarkable. IMPRESSION: 1. Atypical and resolving chest pain. 2. No evidence for acute coronary syndrome. 3. Multivessel coronary artery disease. 4. Hypercholesterolemia. 5. Chronic obstructive pulmonary disease. 6. History of noncompliance. PLAN: Given these findings, I have discussion with him about his need for medications and medical followup. The patient is agreeable. We will discontinue telemetry today. The patient can be discharged as long as he agrees to an outpatient stress test in which we will arrange for. Lauro Alejandra MD
--- NOTE | 2018-02-28 23:13 | HP ---
Copied To: Lluvia Whitten MD Attending MD: Lluvia Whitten MD DATE OF EXAM: 02/27/2018 HISTORY OF PRESENT ILLNESS: Mr. Alexandra is a 63-year-old male admitted to the hospital with left-sided chest pain and shortness of breath. He has history of myocardial infarction, had cardiac stent placed previously. 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 No nausea, no vomiting. No abdominal pain. No fever, no cough with expectoration. Chest pain for past few hours. No radiation. It is on the left side of the chest. PAST MEDICAL HISTORY Hypertension, coronary artery disease, COPD, TIA, chronic kidney disease, osteoarthritis, GE reflux, recurrent UTI, anxiety. PAST SURGICAL HISTORY Cardiac catheterization, cholecystectomy, coronary stent placement, open heart surgery, triple bypass. FAMILY HISTORY: Noncontributory. PERSONAL HISTORY: Light smoker, smokes less than 10 cigarettes a day, history of drug abuse, heroin and marijuana. ALLERGIES: SHELLFISH, SULFA CAUSES RASH. HOME MEDICATIONS: Ventolin, Lipitor 10 mg daily, B12 one tablet daily, meloxicam 7.5 mg daily, Singulair 10 mg daily, nitroglycerin 0.4 mg p.r.n., omeprazole 40 mg daily, prednisone 20 mg daily. REVIEW OF SYSTEMS: As per HPI. Rest of 12-point review of systems reviewed negative. PHYSICAL EXAMINATION: GENERAL: Comfortable in bed, in no acute distress. VITAL SIGNS: Temperature 98.7, heart rate 88 per minute, respiratory 18 per minute, blood pressure 103/56, pulse ox is 96% on room air. HEENT: Pallor positive. NECK: No lymphadenopathy. CHEST: Air entry present and equal bilaterally. No added sounds. CARDIOVASCULAR: S1, S2 normal. No murmur. No gallop. ABDOMEN: Soft, nontender. No hepatosplenomegaly. EXTREMITIES: No edema. SKIN: No petechiae. SPINE: Nontender. LABORATORY DATA: White count 7.5, hemoglobin 13.9, hematocrit 39.7, platelet 240. Sodium 136, potassium 4.7, BUN 21, creatinine 0.9, glucose 91. Monocyte count 10%. EKG no ST-T changes. ASSESSMENT AND PLAN 1. Left-sided chest pain. 2. Anemia. 3. Coronary artery disease. 4. Chronic obstructive pulmonary disease. 5. Hypertension. 6. History of transient ischemic attack. PLAN: He will be admitted to tele monitoring. Cardiology consultation with Dr. Alejandra requested. We will monitor serial troponins. Nitroglycerin p.r.n., aspirin 81 mg daily, Lipitor 10 mg daily, Coreg 3.125 mg p.o. b.i.d., Lovenox 70 mg subcu every 12 hours, folic acid 1 mg daily, Imdur 30 mg daily, Protonix 40 mg daily. He has mild anemia. Iron studies, B12, folate, TSH ordered. Lluvia Whitten MD
--- NOTE | 2018-02-28 23:24 | DS ---
Copied To: Lluvia Whitten MD Attending MD: Lluvia Whitten MD DATE OF DISCHARGE: 02/28/2018 DISCHARGE DIAGNOSES 1. Chest pain. 2. History of coronary artery disease. 3. Anemia. 4. B12 deficiency. 5. Chronic obstructive pulmonary disease. HOSPITAL COURSE: The patient was admitted with left-sided chest pain. Cardiology consultation with Dr. Alejandra requested. He evaluated the patient. Cardiac stress test was scheduled as an outpatient. Troponin remained negative during hospitalization. EKG, no ST-T changes. Chest pain resolved during the admission. He is being discharged home in stable condition. PHYSICAL EXAMINATION: GENERAL: Comfortable in bed, in no acute distress. VITAL SIGNS: Temperature 98.7, blood pressure 100/70, heart rate is 80 per minute, respiratory rate 18 per minute, oxygen saturation 98% on room air. HEENT: Pallor positive. NECK: No lymphadenopathy. CHEST: Air entry present and equal bilateral. No added sound. CARDIOVASCULAR: S1, S2 normal. No murmur. No gallop. ABDOMEN: Soft, nontender. No hepatosplenomegaly. EXTREMITIES: No edema. SPINE: Nontender. SKIN: No petechiae. No rash. CONDITION ON DISCHARGE: Stable. DISPOSITION: Discharge home. MEDICATIONS: Continue home medications. Follow up with Dr. Alejandra in 1 week. Follow up with Dr. Damon in 1 week. DIET: Heart-healthy diet. All prescriptions given to the patient. Discussed with the staff nurse. Discussed with the patient. Time spent in preparing discharge and coordinating care is 55 minutes. Lluvia Whitten MD
== END 2018-02-28 15:40 | disposition home or self-care (01) | DRG 143 ==
LOC: ED 15:14 → ERH 18:46 → 2RNO 20:50
PROVIDERS: ADMIT Internal Medicine Medical Oncology; ATTEND Internal Medicine Medical Oncology
DX: R07.89 Other chest pain (principal); J44.9 Chronic obstructive pulmonary disease, unspecified; E53.8 Deficiency of other specified B group vitamins; N18.9 Chronic kidney disease, unspecified; I12.9 Hypertensive chronic kidney disease with stage 1 through stage 4 chronic kidney disease, or unspecified chronic kidney disease; E78.5 Hyperlipidemia, unspecified; I25.119 Atherosclerotic heart disease of native coronary artery with unspecified angina pectoris; E78.00 Pure hypercholesterolemia, unspecified; D64.9 Anemia, unspecified; F17.210 Nicotine dependence, cigarettes, uncomplicated; K21.9 Gastro-esophageal reflux disease without esophagitis; I25.2 Old myocardial infarction; Z91.19 Patient's noncompliance with other medical treatment and regimen; Z86.73 Personal history of transient ischemic attack (TIA), and cerebral infarction without residual deficits; Z95.5 Presence of coronary angioplasty implant and graft; Z88.2 Allergy status to sulfonamides

== ENCOUNTER 2018-03-11 14:35 | Emergency (ER) | payer MEDICARE, MEDICAID ==
[2018-03-11 14:52] VITALS: BMI 22.7
[2018-03-11] MEDS ORDERED: Famotidine 20mg/50ml 20 MG/50 ML BAG IVPB STA (15:25)
--- NOTE | 2018-03-11 15:32 | ED PDOC ---
Arrival/HPI - General Chief Complaint: Abdominal Pain Time Seen by Provider: 03/11/18 14:43 Historian: Patient EM Caveat: Acuity of Condition - History of Present Illness Narrative History of Present Illness (Text): 03/11/18 15:33 63 yr old male w/ hx of COPD, CAD p/w abdominal pain upon awakening this morning. Abdominal pain is burning, epigastric, without radiation, associated with nausea and vomiting. He notes x2 episodes of nbnb vomiting. He notes his last BM was today, non dark, non bloody. He notes that after he had vomiting he had chest pain, which felt like burning coming from his stomach into his chest. He denies any crushing chest pain, pleuritic chest pain or chest wall that radiated to the back or tearing pain. He also notes SOB, feels like his previous epmhysema attacks. No orthopnea or PND. No leg swelling No trauma or falls. No headache, neck stiffness or fever No dysuria, urgency or frequency No back pain No other complaints 03/11/18 15:37 Time/Duration: Prior to Arrival, Other (this morning) Symptom Onset: Gradual Severity Level: 4 Past Medical History - Past History Past History: No Previous - Infectious Disease Hx of Infectious Diseases: None - Tetanus Immunization Tetanus Immunization: Unknown - Reproductive Currently Lactating: No - Cardiac Hx Cardiac Disorders: Yes Hx Angina: Yes Hx Cardiac Arrhythmia: Yes Hx Hypertension: Yes Hx Peripheral Vascular Disease: Yes Other/Comment: Carotid enarterectomy - Pulmonary Hx Asthma: Yes Hx Chronic Obstructive Pulmonary Disease (COPD): Yes Hx Emphysema: Yes - Neurological Hx Neurological Disorder: Yes Hx Dizziness: Yes Hx Migraine: Yes Hx Transient Ischemic Attacks (TIA): Yes - HEENT Hx HEENT Disorder: Yes Hx Cataracts: Yes - Renal Hx Renal Disorder: Yes Hx Kidney Stones: Yes - Endocrine/Metabolic Hx Endocrine Disorders: No - Hematological/Oncological Hx Blood Disorders: No - Integumentary Hx Dermatological Disorder: No - Musculoskeletal/Rheumatological Hx Arthritis: Yes Hx Falls: Yes - Gastrointestinal Hx Gastrointestinal Disorders: Yes Hx Gastroesophageal Reflux: Yes - Genitourinary/Gynecological Hx Genitourinary Disorders: Yes Hx Urinary Tract Infection: Yes - Psychiatric Hx Psychophysiologic Disorder: Yes Hx Anxiety: Yes Hx Substance Use: Yes - Surgical History Hx Cardiac Catheterization: Yes Hx Coronary Stent: Yes - Anesthesia Hx Anesthesia: Yes Hx Anesthesia Reactions: No Hx Malignant Hyperthermia: No - Suicidal Assessment Feels Threatened In Home Enviroment: No Family/Social History Family/Social History: Unknown Family HX Smoking Status: Heavy Smoker > 10 Cigarettes Daily Hx Alcohol Use: Yes Hx Substance Use: Yes Substance used: HEROIN, MARIJUANA Hx Substance Use Treatment: No Allergies/Home Meds Allergies/Adverse Reactions: Allergies shellfish derived Allergy (Verified 08/27/17 22:20) ANAPHYLAXIS Sulfa (Sulfonamide Antibiotics) Allergy (Verified 08/27/17 22:20) RASH Home Medications: Home Meds Medication Instructions Recorded Confirmed Ventolin HFA 90 mcg/actuation (8 g) 1 puff NEB PRN PRN 10/20/17 03/11/18 Atorvastatin [Lipitor] 10 mg PO DIN 02/23/18 03/11/18 Benzonatate [Tessalon Perles] 100 mg PO PRN PRN 02/23/18 03/11/18 Cyanocobalamin [Vitamin B12 100 1 tab PO DAILY 02/23/18 03/11/18 mcg Tab] Meloxicam [Mobic] 7.5 mg PO DAILY 02/23/18 03/11/18 Montelukast [Singulair] 10 mg PO DAILY 02/23/18 03/11/18 Nitroglycerin [Nitrotab] 0.4 mg SL PRN 02/23/18 03/11/18 Omeprazole 40 mg PO DAILY 02/23/18 03/11/18 Prednisone [Prednisone Intensol] 20 mg PO DAILY 02/23/18 03/11/18 Physical Exam Vital Signs Temp Pulse Resp BP Pulse Ox 03/11/18 18:55 65 18 119/70 100 03/11/18 16:30 68 17 118/72 100 03/11/18 14:55 98.4 F 65 18 102/69 100 - Systems Exam Head: Present: Atraumatic, Normocephalic Pupils: Present: PERRL Extroacular Muscles: Present: EOMI Conjunctiva: Present: Normal Mouth: Present: Moist Mucous Membranes Neck: Present: Normal Range of Motion Respiratory/Chest: Present: Good Air Exchange, Wheezes. No: Respiratory Distress, Accessory Muscle Use Cardiovascular: Present: Regular Rate and Rhythm, Normal S1, S2. No: Murmurs Abdomen: Present: Tenderness (epigastric). No: Distention, Peritoneal Signs Back: Present: Normal Inspection Upper Extremity: Present: Normal Inspection. No: Cyanosis, Edema Lower Extremity: Present: Normal Inspection. No: Edema Neurological: Present: GCS=15, CN II-XII Intact, Speech Normal Skin: Present: Warm, Dry, Normal Color. No: Rashes Psychiatric: Present: Alert, Oriented x 3, Normal Insight, Normal Concentration Medical Decision Making ED Course and Treatment: 03/11/18 15:32 63 yr old male w/ hx of CAD p/w abdominal pain, nausea, vomiting. He notes x2 episodes of vomiting, afterwhich he had burning chest pain going from his stomach through the middle. He notes his current symptoms also are associated with shortness of breath/emphysema. Seen previously by myself 1 week prior, pt notes his current symptoms feel exactly alike his emphysema. 03/11/18 18:52 labs, imaging unremarkable. abdominal pain resolved. no n/v. tolerating clears. appreciate consult w/ Dr. Alejandra- pt has outpt stress test scheduled. Given negative troponin, unchanged EKG, as well as story (non cardiac in nature pain) will have pt follow up. Pt notes has inhaler and nebs at home. Instructed pt on being given steroids raises risk of avasc. necrosis. pt notes understanding but states he needs them for his copd. Will rx and have pt followup. instructed pt to d/c his daily 20mg prednisone, and take 40 for the next 5 days , and followup with his pulm and or primary withint 5d. 03/11/18 19:08 - Lab Interpretations Lab Results: 03/11/18 15:57 03/11/18 15:57 Lab Results 03/11/18 15:57: Sodium 132, Potassium 4.5, Chloride 96 L, Carbon Dioxide 23, Anion Gap 17, BUN 19, Creatinine 0.8, Est GFR ( Amer) > 60, Est GFR (Non- Af Amer) > 60, Random Glucose 78, Calcium 8.9, Total Bilirubin 0.9, AST 47, ALT 25, Alkaline Phosphatase 56, Troponin I < 0.01, Total Protein 7.1, Albumin 4.3, Globulin 2.9, Albumin/Globulin Ratio 1.5, Lipase 194 03/11/18 15:57: WBC 6.8 D, RBC 3.98, Hgb 12.7 L, Hct 37.2 L, MCV 93.5, MCH 31.9 , MCHC 34.1, RDW 12.8, Plt Count 213, MPV 9.2, Gran % 52.3, Lymph % (Auto) 37.6 H, [place] % (Auto) 8.1 H, Eos % (Auto) 1.9, Baso % (Auto) 0.1, Gran # 3.55, Lymph # (Auto) 2.6, [place] # (Auto) 0.6, Eos # (Auto) 0.1, Baso # (Auto) 0.01 - RAD Interpretation Radiology Orders: 03/11/18 15:17 ABD & PELVIS IV CONTRAST ONLY [CT] Stat 03/11/18 15:18 CHEST TWO VIEWS (PA/LAT) [RAD] Stat - Medication Orders Current Medication Orders: Discontinued Medications Acetaminophen (Tylenol 325mg Tab) 325 mg PO STAT STA Stop: 03/11/18 17:13 Last Admin: 03/11/18 18:23 Dose: 325 mg Albuterol/Ipratropium (Duoneb 3 Mg/0.5 Mg (3 Ml) Ud) 3 ml IH Q15M MAHSA Stop: 03/11/18 15:46 Last Admin: 03/11/18 16:20 Dose: 3 ml Famotidine (Pepcid 20mg/50ml Premix) 20 mg in 50 mls @ 100 mls/hr IVPB STAT STA Stop: 03/11/18 15:54 Last Admin: 03/11/18 15:59 Dose: 100 mls/hr eMAR Start Stop Document 03/11/18 15:59 SF (Rec: 03/11/18 15:59 [email or web address] Intravenous Solution Start Date 03/11/18 Start Time 15:59 End Date 03/11/18 End time 16:30 Total Infusion Time 31 Methylprednisolone (Solu-Medrol) 125 mg IVP STAT STA Stop: 03/11/18 15:17 Last Admin: 03/11/18 16:00 Dose: 125 mg IVP Administration Document 03/11/18 16:00 SF (Rec: 03/11/18 16:00 [email or web address] Charges for Administration # of IVP Administrations 1 Ondansetron HCl (Zofran Inj) 4 mg IVP STAT STA Stop: 03/11/18 15:18 Last Admin: 03/11/18 15:59 Dose: 4 mg IVP Administration Document 03/11/18 15:59 SF (Rec: 03/11/18 15:59 [email or web address]) Charges for Administration # of IVP Administrations 1 Disposition/Present on Arrival - Present on Arrival Any Indicators Present on Arrival: No History of DVT/PE: No History of Uncontrolled Diabetes: No Urinary Catheter: No History of Decub. Ulcer: No History Surgical Site Infection Following: None - Disposition Have Diagnosis and Disposition been Completed?: Yes Diagnosis: COPD with acute exacerbation, Abdominal pain, COPD (chronic obstructive pulmonary disease) Disposition: HOME/ ROUTINE Disposition Time: 19:00 Patient Problems: Current Active Problems Problem Status Onset Abdominal pain Acute COPD (chronic obstructive pulmonary disease) Acute COPD with acute exacerbation Acute Condition: GOOD Discharge Instructions (ExitCare): Acute Abdomen (Belly Pain), Chronic Obstructive Pulmonary Disease (COPD), Including Emphysema Additional Instructions: KAELYN GIORDANO, thank you for letting us take care of you today. Your provider was Tyler Reese and you were treated for ABDOMINAL PAIN. The emergency medical care you received today was directed at your acute symptoms. If you were prescribed any medication, please fill it and take as directed. It may take several days for your symptoms to resolve. Return to the Emergency Department if your symptoms worsen, do not improve, or if you have any other problems. Please contact your doctor or call one of the physicians/clinics you have been referred to that are listed on the Patient Visit Information form that is included in your discharge packet. Bring any paperwork you were given at discharge with you along with any medications you are taking to your follow up visit. Our treatment cannot replace ongoing medical care by a primary care provider outside of the emergency department. Thank you for allowing the [facility] team to be part of your care today. If you had an X-Ray or CT scan: A Radiologist will review the ED reading if any change in treatment is needed we will contact you. If you had a blood, urine, or wound culture: It will take several days for the results, if any change in treatment is needed we will contact you. If you had an STI test: It will take 48 hours for the results. Please call after 1 week if you have not heard back. Prescriptions: predniSONE [Prednisone] 40 mg PO QAM 5 Days #10 tab Referrals: Lauren Damon DO [Primary Care Provider] - Follow up with primary Lauro Alejandra MD [Staff Provider] - Follow up with primary Forms: [employer] (American)
[2018-03-11] MEDS: Albuterol-Ipratrop 3 mg / 0.5 (3 ml) UD IH SCH ×3 (15:45→16:20)
[2018-03-11 15:46] VITALS: PULSE 65; RESP 18; TEMP 98.4
[2018-03-11 16:09] LABS: BASO # 0.01 K/mm3 (0.0-2.0); BASO % 0.1 % (0.0-3.0); EOS # 0.1 (0.0-0.7); EOS % 1.9 % (1.5-5.0); GRAN # 3.55 (1.4-6.5); GRAN % 52.3 % (50.0-68.0); HEMOGLOBIN 12.7 g/dL (14.0-18.0); LYMPH # 2.6 (1.2-3.4); LYMPH % 37.6 % (22.0-35.0); MEAN CELL VOLUME 93.5 fl (80.0-105.0); MEAN CORPUSCULAR HEMOGLOBIN 31.9 pg (25.0-35.0); MEAN CORPUSCULAR HGB CONC 34.1 g/dl (31.0-37.0); MEAN PLATELET VOLUME 9.2 fl (7.0-11.0); MONO # 0.6 (0.1-0.6); MONO % 8.1 % (1.0-6.0); RBC 3.98 10^6/uL (3.5-6.1); RED CELL DISTRIBUTION WIDTH 12.8 % (11.5-14.5); WHITE BLOOD COUNT 6.8 10^3/ul (4.5-11.0)
[2018-03-11 16:27] LABS: ALB/GLOB RATIO 1.5 (1.1-1.8); ALBUMIN 4.3 g/dL (3.0-4.8); ALT/SGPT 25 U/L (7-56); AST/SGOT 47 U/L (17-59); BLOOD UREA NITROGEN 19 mg/dL (7-21); CALCIUM 8.9 mg/dL (8.4-10.5); GFR AFRICAN-AMERICAN > 60; GFR NON-AFRICAN AMERICAN > 60; LIPASE 194 U/L (23-300)
[2018-03-11 16:32] LABS: TROPONIN I < 0.01 ng/mL
[2018-03-11] MEDS ORDERED: Iohexol 350 MG/100 ML VIAL ONE (17:14)
[2018-03-11 18:56] VITALS: BP 119/70
[2018-03-11 19:12] VITALS: O2SAT 98
--- NOTE | 2018-03-11 20:53 | CARD ---
APPROVED REPORT Date of service: 03/11/2018 EKG Measurement Heart [id number] <Conclusion> Normal sinus rhythm Normal ECG
--- NOTE | 2018-03-12 08:24 | RAD ---
Date of service: 03/11/2018 HISTORY: emphysema COMPARISON: Chest radiographs 02/27/2018. TECHNIQUE: Chest PA and lateral FINDINGS: LUNGS: No active pulmonary disease. PLEURA: No significant pleural effusion identified. No pneumothorax apparent. CARDIOVASCULAR: Cardiac size remains normal. Post CABG changes reiterated including median sternotomy and mediastinal surgical clips. OSSEOUS STRUCTURES: No significant abnormalities. VISUALIZED UPPER ABDOMEN: Normal. OTHER FINDINGS: None. IMPRESSION: No interval acute cardiopulmonary disease appreciated.
--- NOTE | 2018-03-12 10:07 | CT ---
Date of service: 03/11/2018 PROCEDURE: CT Abdomen and Pelvis with contrast HISTORY: abdominal pain COMPARISON: None. TECHNIQUE: Contrast dose: 100 cc of Omni 350 Radiation dose: Total exam DLP = 413 mGy-cm. This CT exam was performed using one or more of the following dose reduction techniques: Automated exposure control, adjustment of the mA and/or kV according to patient size, and/or use of iterative reconstruction technique. FINDINGS: LOWER THORAX: Calcified coronary arteries LIVER: Unremarkable. No gross lesion or ductal dilatation. GALLBLADDER AND BILE DUCTS: Gallbladder removed PANCREAS: Unremarkable. No gross lesion or ductal dilatation. SPLEEN: Unremarkable. ADRENALS: Unremarkable. No mass. KIDNEYS AND URETERS: Unremarkable. No hydronephrosis. No solid mass. VASCULATURE: Unremarkable. No aortic aneurysm. BOWEL: Unremarkable. No obstruction. No gross mural thickening. APPENDIX: Normal appendix. PERITONEUM: Unremarkable. No free fluid. No free air. LYMPH NODES: Unremarkable. No enlarged lymph nodes. BLADDER: Unremarkable. REPRODUCTIVE: Unremarkable. BONES: Multilevel disc degeneration. Small area of osteonecrosis in the left femoral head. The femoral head maintains a normal contour OTHER FINDINGS: The report concurs with the preliminary [facility] report IMPRESSION: No acute findings
== END 2018-03-11 19:11 | disposition home or self-care (01) ==
LOC: ED 14:35
DX: J44.1 Chronic obstructive pulmonary disease with (acute) exacerbation (principal); R10.9 Unspecified abdominal pain; I10 Essential (primary) hypertension; Z86.73 Personal history of transient ischemic attack (TIA), and cerebral infarction without residual deficits; F17.210 Nicotine dependence, cigarettes, uncomplicated
CPT/HCPCS: 71046; 74177; 80053; 83690; 84484; 85025; 93005; 96365; 96375; 99285; J2405; J2930; Q9967

== ENCOUNTER 2018-04-01 10:27 | Inpatient (IN) | payer MEDICARE, MEDICAID ==
[2018-04-01 10:27] VITALS: BMI 22.7
[2018-04-01] MEDS ORDERED: Albuterol 0.083% Inhal Sol (2.5 mg/3 mL) UD INH STA (11:06)
[2018-04-01] MEDS ORDERED: cefTRIAXone 1 gm 1 GM/100 ML BAG IVPB STA (11:08)
[2018-04-01] MEDS ORDERED: Azithromycin 500MG/NS 250ml 500 MG/250 ML BAG IVPB STA (11:09)
--- NOTE | 2018-04-01 11:09 | ED PDOC ---
Arrival/HPI - General Chief Complaint: Shortness Of Breath Time Seen by Provider: 04/01/18 11:03 Historian: Patient - History of Present Illness Narrative History of Present Illness (Text): 04/01/18 11:11 63 year old male, with past medical history of hypertension, COPD, TIA, coronary stent, CABG (10 yrs ago), cholecystectomy and arthritis, presents to the Emergency department complaining of worsening shortness of breath associated with chest burning since yesterday. Patient informs associated coughing, runny nose, sore throat and subjective fever since yesterday. Patient informs similar symptoms in the past consistent with his COPD. Patient denies any chills, headache, dizziness, abdominal pain, nausea, vomiting, diarrhea, back pain, neck pain, or any other complaints. PMD: Dr. Damon Time/Duration: 24 hours Symptom Onset: Gradual Symptom Course: Unchanged Quality: Burning Activities at Onset: Light Context: Home Past Medical History - Provider Review Nursing Documentation Reviewed: Yes - Past History Past History: No Previous - Infectious Disease Hx of Infectious Diseases: None - Tetanus Immunization Tetanus Immunization: Unknown - Reproductive Currently Lactating: No - Cardiac Hx Cardiac Disorders: Yes Hx Angina: Yes Hx Cardiac Arrhythmia: Yes Hx Hypertension: Yes Hx Peripheral Vascular Disease: Yes Other/Comment: Carotid enarterectomy - Pulmonary Hx Asthma: Yes Hx Chronic Obstructive Pulmonary Disease (COPD): Yes Hx Emphysema: Yes - Neurological Hx Neurological Disorder: Yes Hx Dizziness: Yes Hx Migraine: Yes Hx Transient Ischemic Attacks (TIA): Yes - HEENT Hx HEENT Disorder: Yes Hx Cataracts: Yes - Renal Hx Renal Disorder: Yes Hx Kidney Stones: Yes - Endocrine/Metabolic Hx Endocrine Disorders: No - Hematological/Oncological Hx Blood Disorders: No - Integumentary Hx Dermatological Disorder: No - Musculoskeletal/Rheumatological Hx Arthritis: Yes Hx Falls: Yes - Gastrointestinal Hx Gastrointestinal Disorders: Yes Hx Gastroesophageal Reflux: Yes - Genitourinary/Gynecological Hx Genitourinary Disorders: Yes Hx Urinary Tract Infection: Yes - Psychiatric Hx Psychophysiologic Disorder: Yes Hx Anxiety: Yes Hx Substance Use: Yes - Surgical History Hx Cardiac Catheterization: Yes Hx Coronary Stent: Yes - Anesthesia Hx Anesthesia: Yes Hx Anesthesia Reactions: No Hx Malignant Hyperthermia: No - Suicidal Assessment Feels Threatened In Home Enviroment: No Family/Social History - Physician Review Nursing Documentation Reviewed: Yes Family/Social History: No Known Family HX Smoking Status: Heavy Smoker > 10 Cigarettes Daily Hx Alcohol Use: Yes Hx Substance Use: Yes Substance used: HEROIN, MARIJUANA Hx Substance Use Treatment: No Allergies/Home Meds Allergies/Adverse Reactions: Allergies shellfish derived Allergy (Verified 08/27/17 22:20) ANAPHYLAXIS Sulfa (Sulfonamide Antibiotics) Allergy (Verified 08/27/17 22:20) RASH Home Medications: Home Meds Medication Instructions Recorded Confirmed Ventolin HFA 90 mcg/actuation (8 g) 1 puff NEB PRN PRN 10/20/17 03/11/18 Atorvastatin [Lipitor] 10 mg PO DIN 02/23/18 03/11/18 Benzonatate [Tessalon Perles] 100 mg PO PRN PRN 02/23/18 03/11/18 Cyanocobalamin [Vitamin B12 100 1 tab PO DAILY 02/23/18 03/11/18 mcg Tab] Meloxicam [Mobic] 7.5 mg PO DAILY 02/23/18 03/11/18 Montelukast [Singulair] 10 mg PO DAILY 02/23/18 03/11/18 Nitroglycerin [Nitrotab] 0.4 mg SL PRN 02/23/18 03/11/18 Omeprazole 40 mg PO DAILY 02/23/18 03/11/18 Prednisone [Prednisone Intensol] 20 mg PO DAILY 02/23/18 03/11/18 Review of Systems - Physician Review All systems were reviewed & negative as marked: Yes - Review of Systems Constitutional: Fevers Respiratory: SOB, Cough Cardiovascular: Chest Pain (chest burning) Gastrointestinal: absent: Abdominal Pain, Diarrhea, Nausea, Vomiting Neurological: absent: Headache, Dizziness Physical Exam - Physical Exam Narrative Physical Exam (Text): 04/01/18 11:10 Gen: VS reviewed, alert, well developed, well nourished, nontoxic, mild distress. ENT: Pus nasal drip noted back of mouth. Eye: EOMI, PERRL. Neck: no JVD, supple, no adenopathy. CV: regular rate, regular rhythm, no rubs, no murmur, no gallops, S1, S2, pulses equal and strong. Pulm: bilateral expiratory wheeze. Poor air exchange bilaterally. Abd: soft, nontender, no guarding, no rebound, no rigidity, normal bowel sounds. Ext: no edema. Skin: good color, no rash, no cyanosis. Psych: responds appropriately to questions, normal affect. Neuro: oriented x 3, CN2-12 intact grossly, motor intact, sensation intact. Vital Signs Reviewed: Yes Vital Signs Temp Pulse Resp BP Pulse Ox 04/01/18 14:51 98.1 F 83 18 99 04/01/18 14:40 98.3 F 83 20 129/70 100 04/01/18 11:23 80 21 127/80 100 04/01/18 10:37 19 98 04/01/18 10:34 97.9 F 86 19 127/82 99 Temperature: Afebrile Blood Pressure: Normal Pulse: Regular Respiratory Rate: Normal Appearance: Positive for: Well-Appearing, Non-Toxic, Comfortable Pain Distress: None Mental Status: Positive for: Alert and Oriented X 3 Medical Decision Making ED Course and Treatment: 04/01/18 11:16 Impression: 63 year old male presents to the Emergency department complaining of shortness of breath associated with chest burning. Differential Diagnosis included but are not limited to: COPD exacerbation Plan: -- VBG -- EKG -- Labs -- Chest X-ray -- Albuterol -- Duoneb -- Solumedrol -- Blood Culture -- Reassess and disposition Prior Visits: Notes and results from previous visits were reviewed. Progress Notes: 04/01/18 12:42 follow up exam, patient appears more comfortable, reports that his breathing feels improved however still reports central chest pain. Lung exam at this time , good air exchange bilat, minimal wheeze bilat expiratory. With a negative trop , will extend workup to rule out PE. Patient ultimately to be admitted for COPD exacerbation. 04/01/18 13:21 admit accepted by hospitalist, Dr. Heath, patient to be admitted for copd exacerbation, pending CTAPE and we will both follow up on the result.a shellfish allergy is not a contraindication to iv contrast and this has been relayed to the admitted team. 04/01/18 16:17 - Lab Interpretations Lab Results: 04/01/18 10:52 04/01/18 10:52 Lab Results 04/01/18 10:52: PT 11.7, INR 1.02, APTT 32.9 04/01/18 10:52: WBC 4.3 L D, RBC 4.13, Hgb 13.2 L, Hct 36.8 L, MCV 89.1 D, MCH 32.0, MCHC 35.9, RDW 12.8, Plt Count 277, MPV 8.6, Gran % 41.3 L, Lymph % (Auto ) 40.8 H, [place] % (Auto) 13.7 H, Eos % (Auto) 3.5, Baso % (Auto) 0.7, Gran # 1.78 , Lymph # (Auto) 1.8, [place] # (Auto) 0.6, Eos # (Auto) 0.2, Baso # (Auto) 0.03 04/01/18 10:52: TSH 3rd Generation 8.46 H 04/01/18 10:52: Sodium 124 L, Chloride 89 L, Potassium 4.7, Carbon Dioxide 23, Anion Gap 17, BUN 10, Creatinine 0.7 L, Est GFR ( Amer) > 60, Est GFR ( Non-Af Amer) > 60, Random Glucose 82, Calcium 9.3, Total Bilirubin 0.6, AST 33, ALT 16, Alkaline Phosphatase 63, Troponin I < 0.01, NT-Pro-B Natriuret Pep 214, Total Protein 7.1, Albumin 4.3, Globulin 2.7, Albumin/Globulin Ratio 1.6 04/01/18 10:52: pO2 53, VBG pH 7.38, VBG pCO2 42.0, VBG HCO3 24.8, VBG Total CO2 26.1, VBG O2 Sat (Calc) 91.8 H, VBG Base Excess -0.4 L, VBG Potassium 4.5, Sodium 121.0 L, Chloride 90.0 L, Glucose 81, Lactate 1.0, FiO2 21.0, Venous Blood Potassium 4.5 - RAD Interpretation Narrative RAD Interpretations (Text): 04/01/18 12:00 Chest X-ray reviewed by radiologist, shows no active pulmonary disease. Radiology Orders: 04/01/18 11:05 CHEST PORTABLE [RAD] Stat Trouble Shooter: Radiologist - EKG Interpretation EKG Interpretation (Text): 04/01/18 11:22 1034: nsr at 84 bpm, nml qrs, nml axis, ?peaked lateral t waves Interpreted by ED Physician: Yes - Medication Orders Current Medication Orders: Acetaminophen (Tylenol 325mg Tab) 650 mg PO Q4 PRN PRN Reason: Pain, severe (8-10) Albuterol/Ipratropium (Duoneb 3 Mg/0.5 Mg (3 Ml) Ud) 3 ml IH [id number] MAHSA Albuterol/Ipratropium (Duoneb 3 Mg/0.5 Mg (3 Ml) Ud) 3 ml IH Q2H PRN PRN Reason: Shortness of Breath Diphenhydramine HCl (Benadryl) 25 mg IVP ONCE ONE Stop: 04/01/18 16:14 Enoxaparin Sodium (Lovenox) 40 mg SC DAILY MAHSA PRN Reason: Protocol Sodium Chloride (Sodium Chloride 0.9%) 1,000 mls @ 100 mls/hr IV .Q10H MAHSA Azithromycin (Zithromax 500mg In Ns) 500 mg in 250 mls @ 167 mls/hr IVPB DAILY MAHSA PRN Reason: Protocol Methylprednisolone (Solu-Medrol) 20 mg IVP Q12 MAHSA Pantoprazole Sodium (Protonix Ec Tab) 40 mg PO 0600 MAHSA Discontinued Medications Albuterol Sulfate (Albuterol 0.083% Inhal Lidya (2.5 Mg/3 Ml) Ud) 2.5 mg INH STAT STA Stop: 04/01/18 11:07 Last Admin: 04/01/18 11:21 Dose: 2.5 mg Albuterol/Ipratropium (Duoneb 3 Mg/0.5 Mg (3 Ml) Ud) 3 ml IH Q15M MAHSA Stop: 04/01/18 11:46 Last Admin: 04/01/18 12:15 Dose: 3 ml Ceftriaxone Sodium (Rocephin 1 Gram Ivpb) 1 gm in 100 mls @ 100 mls/hr IVPB STAT STA PRN Reason: Protocol Stop: 04/01/18 12:07 Last Admin: 04/01/18 11:17 Dose: 100 mls/hr eMAR Start Stop Document 04/01/18 11:17 [email or web address] (Rec: 04/01/18 11:17 [email or web address] [id number]) Intravenous Solution Start Date 04/01/18 Start Time 11:17 Azithromycin (Zithromax 500mg In Ns) 500 mg in 250 mls @ 167 mls/hr IVPB STAT STA PRN Reason: Protocol Stop: 04/01/18 12:38 Last Admin: 09/11/18 12:28 Dose: 167 mls/hr eMAR Start Stop Document 04/01/18 12:28 [email or web address] (Rec: 04/01/18 12:28 [email or web address] [id number]) Intravenous Solution Start Date 04/01/18 Start Time 12:28 Ketorolac Tromethamine (Toradol) 30 mg IVP STAT STA Stop: 04/01/18 12:41 Last Admin: 04/01/18 13:05 Dose: 30 mg MAR Pain Assessment Document 04/01/18 13:05 [email or web address] (Rec: 04/01/18 14:45 [email or web address] [id number]) Pain Reassessment Is this a pain reassessment? No Sleep Is patient sleeping during reassessment? No Presence of Pain Presence of Pain Yes Pain Scale Used Pain Scale Used Numeric Location Left, Right or Bilateral Right Pain Location Body Site Chest Description Description Constant Intensity of Pain at present 7 Pain Behavior Facial Grimacing Aggravating Factors Changing Position Alleviating Factors/Management Medication Techniques Alleviating Factors Medication IVP Administration Document 04/01/18 13:05 [email or web address] (Rec: 04/01/18 14:45 [email or web address] [id number]) Charges for Administration # of IVP Administrations 1 Methylprednisolone (Solu-Medrol) 60 mg IVP STAT STA Stop: 04/01/18 11:06 Last Admin: 04/01/18 11:17 Dose: 60 mg IVP Administration Document 04/01/18 11:17 [email or web address] (Rec: 04/01/18 11:17 [email or web address] [id number]) Charges for Administration # of IVP Administrations 1 - Scribe Statement The provider has reviewed the documentation as recorded by the Scribinga Jimenez. All medical record entries made by the Scribe were at my direction and personally dictated by me. I have reviewed the chart and agree that the record accurately reflects my personal performance of the history, physical exam, medical decision making, and the department course for this patient. I have also personally directed, reviewed, and agree with the discharge instructions and disposition. Disposition/Present on Arrival - Present on Arrival Any Indicators Present on Arrival: No History of DVT/PE: No History of Uncontrolled Diabetes: No Urinary Catheter: No History of Decub. Ulcer: No History Surgical Site Infection Following: None - Disposition Have Diagnosis and Disposition been Completed?: Yes Diagnosis: COPD exacerbation Disposition: HOSPITALIZED Disposition Time: 13:33 Patient Plan: Admission Patient Problems: Current Active Problems Problem Status Onset COPD exacerbation Acute Condition: STABLE
[2018-04-01] MEDS: Albuterol-Ipratrop 3 mg / 0.5 (3 ml) UD IH SCH ×5 (11:16→20:25)
[2018-04-01 11:23] LABS: BASO # 0.03 K/mm3 (0.0-2.0); BASO % 0.7 % (0.0-3.0); EOS # 0.2 (0.0-0.7); EOS % 3.5 % (1.5-5.0); GRAN # 1.78 (1.4-6.5); GRAN % 41.3 % (50.0-68.0); HEMOGLOBIN 13.2 g/dL (14.0-18.0); LYMPH # 1.8 (1.2-3.4); LYMPH % 40.8 % (22.0-35.0); MEAN CELL VOLUME 89.1 fl (80.0-105.0); MEAN CORPUSCULAR HGB CONC 35.9 g/dl (31.0-37.0); MEAN PLATELET VOLUME 8.6 fl (7.0-11.0); MONO # 0.6 (0.1-0.6); MONO % 13.7 % (1.0-6.0); RBC 4.13 10^6/uL (3.5-6.1); RED CELL DISTRIBUTION WIDTH 12.8 % (11.5-14.5); VENOUS BLOOD GAS BASE EXCESS -0.4 mmol/L (0.0-2.0); VENOUS BLOOD GAS PO2 53 mm/Hg (30-55); VENOUS BLOOD PH 7.38 (7.32-7.43); WHITE BLOOD COUNT 4.3 10^3/ul (4.5-11.0)
[2018-04-01 11:31] LABS: INR 1.02; PARTIAL THROMBOPLASTIN TIME 32.9 Seconds (25.1-36.5); PROTHROMBIN TIME 11.7 SECONDS (9.4-12.5)
[2018-04-01 11:41] LABS: ALB/GLOB RATIO 1.6 (1.1-1.8); ALBUMIN 4.3 g/dL (3.0-4.8); ALT/SGPT 16 U/L (7-56); AST/SGOT 33 U/L (17-59); BLOOD UREA NITROGEN 10 mg/dL (7-21); CALCIUM 9.3 mg/dL (8.4-10.5); GFR NON-AFRICAN AMERICAN > 60
[2018-04-01 11:49] LABS: B-TYPE NATRIURETIC PEPTIDE 214 pg/mL (0-450)
[2018-04-01 11:52] LABS: TROPONIN I < 0.01 ng/mL
--- NOTE | 2018-04-01 12:09 | RAD ---
Date of service: 04/01/2018 HISTORY: chest pain, pneumonia, hx copd COMPARISON: 03/11/2018 an. FINDINGS: LUNGS: The lungs are well inflated and clear. PLEURA: No significant pleural effusion identified, no pneumothorax apparent. CARDIOVASCULAR: The heart is normal in size. Status post CABG. OSSEOUS STRUCTURES: No significant abnormalities. VISUALIZED UPPER ABDOMEN: Normal. OTHER FINDINGS: None. IMPRESSION: No active pulmonary disease.
[2018-04-01] MEDS ORDERED: Iohexol 350 MG/100 ML VIAL ONE (12:47)
[2018-04-01] MEDS ORDERED: Albuterol-Ipratrop 3 mg / 0.5 (3 ml) UD IH PRN (14:05)
[2018-04-01] MEDS ORDERED: DiphenhydrAMINE 50 mg/ml Inj IVP ONE (16:13)
[2018-04-01] MEDS ORDERED: DiphenhydrAMINE 50 mg/ml Inj IM ONE (16:18)
[2018-04-01] MEDS: Enoxaparin 40 mg Syringe SC SCH (16:43)
[2018-04-01] MEDS: Sodium Chloride 0.9% 1,000 ML IV SCH (16:45)
[2018-04-01 18:26] LABS: TROPONIN I < 0.01 ng/mL
[2018-04-01 18:38] LABS: FREE T4 0.92 ng/dL (0.78-2.19)
[2018-04-01 18:43] LABS: BLOOD UREA NITROGEN 16 mg/dL (7-21); CALCIUM 9.5 mg/dL (8.4-10.5); GFR NON-AFRICAN AMERICAN > 60
[2018-04-01] MEDS ORDERED: Pneumococcal 23-Valent Vaccine IM ONE (19:05)
--- NOTE | 2018-04-01 20:17 | CP.PCM.HP ---
<Jay Jay Salas - Last Filed: 04/01/18 20:55> History of Present Illness - History of Present Illness History of Present Illness: Jay Jay Salas D.O PGY1. Internal Medicine Resident. History and Physical for Dr Dickerson 63 y/o male with PMH of HTN, COPD, TIA, CAD with stents, CABG presents to the ED complaining of 4 days history of progresstive productive cough with greenish sputum and shortness of breath. Symptoms started after having runny nose, headache, earache, subjective fever, eye irritation, sore throat which did not improved by OTC cough medicine and tylenol. Patient informs associated coughing, runny nose, sore throat and since yesterday. Patient denies any chills, dizziness, abdominal pain, nausea, vomiting, diarrhea, back pain, neck pain, or any other complaints. Patient had multiple [facility] hospitalizations, for COPD exacerbation. Patient had abnormal stress last year but refused cardiac cath. 12 points ROS reviewed with pertinent positives as above. PMH: HTN, COPD, TIA, CAD with stents, arthritis PSH:Carotid enarterectomy, cholecystectomy SocH: used to soke 2 ppd for 30 years, now 1 ppd, uses marijuana, heroin. alcohol abuse MEDS: carvidolol, atorvastatin, asa, meloxicam, ventolin, albuterol, benzonate, B12, folate, omeprazole ALL: Shellfish derived substances, Sulfa PMD: Dr. Damon Present on Admission - Present on Admission Any Indicators Present on Admission: No Past Patient History - Infectious Disease Hx of Infectious Diseases: None - Tetanus Immunizations Tetanus Immunization: Unknown - Past Medical History & Family History Past Medical History?: Yes - Past Social History Smoking Status: Current Some Days Smoker - CARDIAC Hx Cardiac Disorders: Yes (CAD,CABG) Hx Angina: Yes Hx Cardia Arrhythmia: Yes Hx Hypercholesterolemia: Yes Hx Hypertension: Yes Hx Peripheral Vascular Disease: Yes Other/Comment: Carotid enarterectomy - PULMONARY Hx Respiratory Disorders: Yes Hx Asthma: Yes Hx Chronic Obstructive Pulmonary Disease (COPD): Yes Hx Emphysema: Yes - NEUROLOGICAL Hx Neurological Disorder: Yes Hx Dizziness: Yes Hx Migraine: Yes Hx Transient Ischemic Attacks (TIA): Yes - HEENT Hx HEENT Problems: Yes Hx Cataracts: Yes - RENAL Hx Chronic Kidney Disease: Yes Hx Kidney Stones: Yes - ENDOCRINE/METABOLIC Hx Endocrine Disorders: No - HEMATOLOGICAL/ONCOLOGICAL Hx Blood Disorders: No - INTEGUMENTARY Hx Dermatological Problems: Yes Other/Comment: VARICOSE 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 - MUSCULOSKELETAL/RHEUMATOLOGICAL Hx Musculoskeletal Disorders: Yes Hx Arthritis: Yes Hx Degenerative Joint Disease: Yes Hx Falls: Yes Hx Fractures: Yes (RIB) - GASTROINTESTINAL Hx Gastrointestinal Disorders: Yes (COLITIS,DIVERTICULOSIS) Hx Gastroesophageal Reflux: Yes - GENITOURINARY/GYNECOLOGICAL Hx Genitourinary Disorders: Yes Hx Urinary Tract Infection: Yes - PSYCHIATRIC Hx Psychophysiologic Disorder: Yes (USED TO DRINK ALCOHOL.H/O ETOH ABUSE. QUIT.) Hx Anxiety: Yes Hx Substance Use: No (DENIES) - SURGICAL HISTORY Hx Surgeries: Yes Hx Cardiac Catheterization: Yes (CORONARY STENT) Hx Cholecystectomy: Yes Hx Coronary Stent: Yes Hx Open Heart Surgery: Yes (triple bypass) - ANESTHESIA Hx Anesthesia: Yes Hx Anesthesia Reactions: No Hx Malignant Hyperthermia: No Meds Allergies/Adverse Reactions: Allergies Allergy/AdvReac Type Severity Reaction Status Date / Time shellfish derived Allergy ANAPHYLAXIS Verified 04/01/18 18:39 Sulfa (Sulfonamide Allergy RASH Verified 04/01/18 18:39 Antibiotics) Physical Exam - Constitutional Appears: Well - Head Exam Head Exam: ATRAUMATIC, NORMAL INSPECTION, NORMOCEPHALIC Additional comments: erythematous oropharynix with no exudate bilateral submandibular lymphadenopathy - Eye Exam Eye Exam: EOMI, PERRL Pupil Exam: NORMAL ACCOMODATION - ENT Exam ENT Exam: Mucous Membranes Dry - Neck Exam Neck exam: Positive for: Lymphadenopathy - Respiratory Exam Respiratory Exam: Accessory Muscle Use, Prolonged Expiratory Phase, Wheezes - Cardiovascular Exam Cardiovascular Exam: REGULAR RHYTHM, +S1, +S2 - GI/Abdominal Exam GI & Abdominal Exam: Normal Bowel Sounds, Soft. absent: Tenderness - Extremities Exam Extremities exam: Positive for: normal capillary refill, pedal pulses present. Negative for: calf tenderness, pedal edema - Back Exam Back exam: NORMAL INSPECTION - Neurological Exam Neurological exam: Alert, CN II-XII Intact, Oriented x3, Reflexes Normal - Psychiatric Exam Psychiatric exam: Normal Affect, Normal Mood - Skin Skin Exam: Dry, Intact, Normal Color, Warm Results - Vital Signs Recent Vital Signs: Last Vital Signs Temp 98.1 F 04/01/18 18:37 Pulse 83 04/01/18 18:37 Resp 18 04/01/18 18:37 BP 129/70 04/01/18 18:37 Pulse Ox 99 04/01/18 14:51 - Labs Result Diagrams: 04/01/18 10:52 04/01/18 18:02 Labs: Laboratory Results - last 24 hr 04/01/18 04/01/18 04/01/18 18:02 18:02 18:02 D-Dimer, Quantitative < 200 Sodium 126 L Potassium 4.4 Chloride 88 L Carbon Dioxide 22 Anion Gap 20 BUN 16 Creatinine 1.0 Est GFR ( Amer) > 60 Est GFR (Non-Af Amer) > 60 Random Glucose 153 H Serum Osmolality Calcium 9.5 Troponin I < 0.01 Free T4 0.92 Alcohol, Quantitative < 10 04/01/18 18:02 D-Dimer, Quantitative Sodium Potassium Chloride Carbon Dioxide Anion Gap BUN Creatinine Est GFR ( Amer) Est GFR (Non-Af Amer) Random Glucose Serum Osmolality 260 L Calcium Troponin I Free T4 Alcohol, Quantitative Assessment & Plan - Assessment and Plan (Free Text) Assessment: 63 y/o male with PMH of HTN, COPD, TIA, CAD with stents, CABG presents to the ED complaining of 4 days history of progresstive productive cough with greenish sputum and shortness of breath associated with URI symptoms. Admitted for chest painr/o ASC, dyspnea in the setting of COPD Plan: Chest pain -Troponin negative x1. will trend -EKG shows NSR without evidence of active ischemia -CXR: showed no active cardiopulmonary disease -Tylenol for pain prn Dyspnea -COPD exacerbation vs pneumonia vs PE -Started Solumedrol 20 mg IVP q12h -Duoneb q4h MAHSA nad q2h PRN -Started Azithromycin -D-dimer ordered to r/o PE -VBG showed hypoxia and mild hypercapnia -Blood and sputum Cx ordered -Influenza A B ordered H/O CAD with stents, CABG -Patient had abnormal stress last year but refused cardiac cath -cardiology consulted. recs appreciated -lipid panel ordered -Hgb A1C ordered Hyponatremia -Likely due to dehydration -IVF NS @100 ml/hr Q10H. avoid rapid correction -CMP in AM -Urine Na, Cr, osmolality ordered -TSH high. will repeat H/O alcohol abuse -alcohol level negative -UDS ordered Prophylaxis -DVTLovenox -GI ppx: Protonix -PT eval and treat -heart healthy diet -seizure precautions -fall precautions -aspiration precaution Case reviewed and plan discussed with Dr Dickerson <Ministerio Dickerson - Last Filed: 04/02/18 07:36> Results - Vital Signs Recent Vital Signs: Last Vital Signs Temp 98.6 F 04/01/18 23:00 Pulse 64 04/02/18 05:57 Resp 20 04/01/18 23:00 BP 120/62 04/01/18 23:00 Pulse Ox 99 04/01/18 23:00 - Labs Result Diagrams: 04/02/18 06:30 04/02/18 06:30 Labs: Laboratory Results - last 24 hr 04/01/18 04/01/18 04/01/18 18:02 18:02 18:02 WBC RBC Hgb Hct MCV MCH MCHC RDW Plt Count MPV Gran % Lymph % (Auto) [place] % (Auto) Eos % (Auto) Baso % (Auto) Gran # Lymph # (Auto) [place] # (Auto) Eos # (Auto) Baso # (Auto) D-Dimer, Quantitative < 200 Sodium 126 L Potassium 4.4 Chloride 88 L Carbon Dioxide 22 Anion Gap 20 BUN 16 Creatinine 1.0 Est GFR ( Amer) > 60 Est GFR (Non-Af Amer) > 60 Random Glucose 153 H Serum Osmolality Calcium 9.5 Phosphorus Magnesium Total Bilirubin AST ALT Alkaline Phosphatase Troponin I < 0.01 Total Protein Albumin Globulin Albumin/Globulin Ratio Triglycerides Cholesterol LDL Cholesterol Direct HDL Cholesterol Free T4 0.92 TSH 3rd Generation Urine Osmolality Urine Opiates Screen Urine Methadone Screen Ur Barbiturates Screen Ur Phencyclidine Scrn Ur Amphetamines Screen U Benzodiazepines Scrn U Oth Cocaine Metabols U Cannabinoids Screen Alcohol, Quantitative < 10 04/01/18 04/01/18 04/01/18 18:02 22:10 22:32 WBC RBC Hgb Hct MCV MCH MCHC RDW Plt Count MPV Gran % Lymph % (Auto) [place] % (Auto) Eos % (Auto) Baso % (Auto) Gran # Lymph # (Auto) [place] # (Auto) Eos # (Auto) Baso # (Auto) D-Dimer, Quantitative Sodium 126 L Potassium 5.7 H* D Chloride 91 L Carbon Dioxide 22 Anion Gap 19 BUN 18 Creatinine 0.9 Est GFR ( Amer) > 60 Est GFR (Non-Af Amer) > 60 Random Glucose 161 H Serum Osmolality 260 L Calcium 9.4 Phosphorus Magnesium Total Bilirubin AST ALT Alkaline Phosphatase Troponin I Total Protein Albumin Globulin Albumin/Globulin Ratio Triglycerides Cholesterol LDL Cholesterol Direct HDL Cholesterol Free T4 TSH 3rd Generation Urine Osmolality Urine Opiates Screen Negative Urine Methadone Screen Negative Ur Barbiturates Screen Negative Ur Phencyclidine Scrn Negative Ur Amphetamines Screen Negative U Benzodiazepines Scrn Negative U Oth Cocaine Metabols Negative U Cannabinoids Screen Negative Alcohol, Quantitative 04/01/18 04/02/18 04/02/18 22:34 02:15 06:30 WBC 4.6 RBC 3.78 Hgb 12.1 L Hct 33.9 L MCV 89.7 MCH 32.0 MCHC 35.7 RDW 13.1 Plt Count 237 MPV 8.6 Gran % 82.3 H Lymph % (Auto) 10.8 L [place] % (Auto) 6.9 H Eos % (Auto) 0.0 L Baso % (Auto) 0.0 Gran # 3.80 Lymph # (Auto) 0.5 L [place] # (Auto) 0.3 Eos # (Auto) 0.0 Baso # (Auto) 0.00 D-Dimer, Quantitative Sodium Potassium Chloride Carbon Dioxide Anion Gap BUN Creatinine Est GFR ( Amer) Est GFR (Non-Af Amer) Random Glucose Serum Osmolality Calcium Phosphorus Magnesium Total Bilirubin AST ALT Alkaline Phosphatase Troponin I < 0.01 Total Protein Albumin Globulin Albumin/Globulin Ratio Triglycerides Cholesterol LDL Cholesterol Direct HDL Cholesterol Free T4 TSH 3rd Generation Urine Osmolality 179 L Urine Opiates Screen Urine Methadone Screen Ur Barbiturates Screen Ur Phencyclidine Scrn Ur Amphetamines Screen U Benzodiazepines Scrn U Oth Cocaine Metabols U Cannabinoids Screen Alcohol, Quantitative 04/02/18 04/02/18 06:30 06:30 WBC RBC Hgb Hct MCV MCH MCHC RDW Plt Count MPV Gran % Lymph % (Auto) [place] % (Auto) Eos % (Auto) Baso % (Auto) Gran # Lymph # (Auto) [place] # (Auto) Eos # (Auto) Baso # (Auto) D-Dimer, Quantitative Sodium 133 Potassium 4.9 Chloride 100 Carbon Dioxide 22 Anion Gap 16 BUN 14 Creatinine 0.7 L Est GFR ( Amer) > 60 Est GFR (Non-Af Amer) > 60 Random Glucose 131 H Serum Osmolality Calcium 9.8 Phosphorus 3.3 Magnesium 1.9 Total Bilirubin 0.2 AST 24 ALT 17 Alkaline Phosphatase 55 Troponin I Total Protein 6.6 Albumin 4.1 Globulin 2.4 Albumin/Globulin Ratio 1.7 Triglycerides 48 Cholesterol 194 LDL Cholesterol Direct 104 HDL Cholesterol 60 Free T4 TSH 3rd Generation 2.15 Urine Osmolality Urine Opiates Screen Urine Methadone Screen Ur Barbiturates Screen Ur Phencyclidine Scrn Ur Amphetamines Screen U Benzodiazepines Scrn U Oth Cocaine Metabols U Cannabinoids Screen Alcohol, Quantitative Attending/Attestation - Attestation I have personally seen and examined this patient.: Yes I have fully participated in the care of the patient.: Yes I have reviewed all pertinent clinical information: Yes Notes (Text): 04/01/18 63 year old male with past medical history of hypertension, CAD s/p stents s/p CABG, COPD, tobacco use and gastritis who presents with complaint of cough, shortness of breath and chest pain. He is admitted for COPD exacerbation. Continue with iv steroids, duonebs and antibiotics. He was counselled on smoking cessation. D-dimer is not elevated; PE is less likely. Serial cardiac enzymes are ordered to rule out ACS. Cardiology evaluation is requested. Patient has history of abnormal stress test last year but at the time refused cardiac cath. He was recently recommended to repeat stress test but failed to comply. Continue with fluids for hyponatremia. Will repeat in AM. TSH is elevated. Will obtain free T4 and repeat TSH is AM. Ministerio Dickerson MD Hospitalist.
--- NOTE | 2018-04-01 20:30 | CARD ---
APPROVED REPORT Date of service: 04/01/2018 EKG Measurement Heart [id number] <Conclusion> Normal sinus rhythm Normal ECG
[2018-04-01] MEDS: MethylPREDNISolone 40 mg Vial IVP SCH (21:21)
[2018-04-01 22:45] LABS: BLOOD UREA NITROGEN 18 mg/dL (7-21); CALCIUM 9.4 mg/dL (8.4-10.5); GFR NON-AFRICAN AMERICAN > 60
[2018-04-01] MEDS ORDERED: Sod Polystyrene Sulf 15 gm/60 ml Susp PO ONE (22:56)
[2018-04-01 23:14] LABS: BARBITURATES, UR NEGATIVE (NEGATIVE); BENZODIAZEPINES, UR NEGATIVE (NEGATIVE); OPIATES, UR NEGATIVE (NEGATIVE); PHENCYCLIDINE, UR NEGATIVE (NEGATIVE)
[2018-04-02] MEDS: Albuterol-Ipratrop 3 mg / 0.5 (3 ml) UD IH SCH ×6 (00:16→20:31)
[2018-04-02] MEDS: Sodium Chloride 0.9% 1,000 ML IV SCH (01:18)
[2018-04-02] MEDS: Pantoprazole 40 mg EC Tab PO SCH (05:06)
[2018-04-02 06:56] LABS: GRAN # 3.8 (1.4-6.5); GRAN % 82.3 % (50.0-68.0); HEMOGLOBIN 12.1 g/dL (14.0-18.0); LYMPH # 0.5 (1.2-3.4); LYMPH % 10.8 % (22.0-35.0); MEAN CELL VOLUME 89.7 fl (80.0-105.0); MEAN CORPUSCULAR HGB CONC 35.7 g/dl (31.0-37.0); MEAN PLATELET VOLUME 8.6 fl (7.0-11.0); MONO # 0.3 (0.1-0.6); MONO % 6.9 % (1.0-6.0); RBC 3.78 10^6/uL (3.5-6.1); RED CELL DISTRIBUTION WIDTH 13.1 % (11.5-14.5); WHITE BLOOD COUNT 4.6 10^3/ul (4.5-11.0)
[2018-04-02 07:07] LABS: ALB/GLOB RATIO 1.7 (1.1-1.8); ALBUMIN 4.1 g/dL (3.0-4.8); ALT/SGPT 17 U/L (7-56); AST/SGOT 24 U/L (17-59); BLOOD UREA NITROGEN 14 mg/dL (7-21); CALCIUM 9.8 mg/dL (8.4-10.5); GFR NON-AFRICAN AMERICAN > 60; HDL CHOLESTEROL 60 mg/dL (29-60)
[2018-04-02 07:10] LABS: LDL CHOLESTEROL 104 mg/dL (0-129)
[2018-04-02 07:33] VITALS: RESP 18
--- NOTE | 2018-04-02 07:47 | CP.PCM.CON ---
History of Present Illness - History of Present Illness History of Present Illness: Awake, alert, complaining of chest pain from deep coughing,refusing nebulizer treatment Reason for consultation: Cardiac evaluation of chest pain, history of coronary artery disease post CABG, post stents,TIA, COPD, hypertension. Brief history of present illness: A 63 year old male who came in to the ER due to shortness of breath and productive coughing for the past 4 days. He took over the counter cough medicicne but with no relief. Complaints of chest pain radiating to shoulder especially when coughing. Musculoskeletal in nature, chest tender to touch and chest discomfort when deep breathing. history of coronary artery disease post CABG, post stents,TIA, COPD, hypertension, carotid endarterectomy,arthritis, cholecystectomy,current smoker for 30 years ,alcohol abuse, uses marijuana and heroin. Seen and examined by me and Dr. Verdin Review of Systems - Review of Systems All systems: reviewed and no additional remarkable complaints except Review of Systems: from HPI Past Patient History - Infectious Disease Hx of Infectious Diseases: None - Tetanus Immunizations Tetanus Immunization: Unknown - Past Medical History & Family History Past Medical History?: Yes - Past Social History Smoking Status: Current Some Days Smoker - CARDIAC Hx Cardiac Disorders: Yes (CAD,CABG) Hx Angina: Yes Hx Cardia Arrhythmia: Yes Hx Hypercholesterolemia: Yes Hx Hypertension: Yes Hx Peripheral Vascular Disease: Yes Other/Comment: Carotid enarterectomy - PULMONARY Hx Respiratory Disorders: Yes Hx Asthma: Yes Hx Chronic Obstructive Pulmonary Disease (COPD): Yes Hx Emphysema: Yes - NEUROLOGICAL Hx Neurological Disorder: Yes Hx Dizziness: Yes Hx Migraine: Yes Hx Transient Ischemic Attacks (TIA): Yes - HEENT Hx HEENT Problems: Yes Hx Cataracts: Yes - RENAL Hx Chronic Kidney Disease: Yes Hx Kidney Stones: Yes - ENDOCRINE/METABOLIC Hx Endocrine Disorders: No - HEMATOLOGICAL/ONCOLOGICAL Hx Blood Disorders: No - INTEGUMENTARY Hx Dermatological Problems: Yes Other/Comment: VARICOSE 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 - MUSCULOSKELETAL/RHEUMATOLOGICAL Hx Musculoskeletal Disorders: Yes Hx Arthritis: Yes Hx Degenerative Joint Disease: Yes Hx Falls: Yes Hx Fractures: Yes (RIB) - GASTROINTESTINAL Hx Gastrointestinal Disorders: Yes (COLITIS,DIVERTICULOSIS) Hx Gastroesophageal Reflux: Yes - GENITOURINARY/GYNECOLOGICAL Hx Genitourinary Disorders: Yes Hx Urinary Tract Infection: Yes - PSYCHIATRIC Hx Psychophysiologic Disorder: Yes (USED TO DRINK ALCOHOL.H/O ETOH ABUSE. QUIT.) Hx Anxiety: Yes Hx Substance Use: No (DENIES) - SURGICAL HISTORY Hx Surgeries: Yes Hx Cardiac Catheterization: Yes (CORONARY STENT) Hx Cholecystectomy: Yes Hx Coronary Stent: Yes Hx Open Heart Surgery: Yes (triple bypass) - ANESTHESIA Hx Anesthesia: Yes Hx Anesthesia Reactions: No Hx Malignant Hyperthermia: No Meds Allergies/Adverse Reactions: Allergies Allergy/AdvReac Type Severity Reaction Status Date / Time shellfish derived Allergy ANAPHYLAXIS Verified 04/01/18 18:39 Sulfa (Sulfonamide Allergy RASH Verified 04/01/18 18:39 Antibiotics) - Medications Medications: Current Medications Acetaminophen (Tylenol 325mg Tab) 650 mg PO Q4 PRN PRN Reason: Pain, severe (8-10) Albuterol/Ipratropium (Duoneb 3 Mg/0.5 Mg (3 Ml) Ud) 3 ml IH [id number] [facility] Last Admin: 04/02/18 03:40 Dose: Not Given Albuterol/Ipratropium (Duoneb 3 Mg/0.5 Mg (3 Ml) Ud) 3 ml IH Q2H PRN PRN Reason: Shortness of Breath Enoxaparin Sodium (Lovenox) 40 mg SC DAILY [facility] PRN Reason: Protocol Last Admin: 04/01/18 16:43 Dose: Not Given Sodium Chloride (Sodium Chloride 0.9%) 1,000 mls @ 100 mls/hr IV .Q10H [facility] Last Admin: 04/02/18 01:18 Dose: 100 mls/hr Azithromycin (Zithromax 500mg In Ns) 500 mg in 250 mls @ 167 mls/hr IVPB DAILY [facility] PRN Reason: Protocol Methylprednisolone (Solu-Medrol) 20 mg IVP Q12 [facility] Last Admin: 04/01/18 21:21 Dose: 20 mg Pantoprazole Sodium (Protonix Ec Tab) 40 mg PO 0600 [facility] Last Admin: 04/02/18 05:06 Dose: 40 mg Physical Exam - Constitutional Appears: No Acute Distress - Eye Exam Eye Exam: Normal appearance - ENT Exam ENT Exam: Mucous Membranes Moist - Respiratory Exam Respiratory Exam: Decreased Breath Sounds, Rhonchi, NORMAL BREATHING PATTERN - Cardiovascular Exam Cardiovascular Exam: REGULAR RHYTHM, +S1, +S2 Additional comments: telemetry NSR- 60's Tenderness on chest upon touching, chest pain when deep coughing and deep breathing radiating to shoulder, pain musculoskeletal in nature - GI/Abdominal Exam GI & Abdominal Exam: Normal Bowel Sounds, Soft - Neurological Exam Neurological exam: Alert, Oriented x3 - Psychiatric Exam Psychiatric exam: Normal Affect - Skin Skin Exam: Dry, Warm Results - Vital Signs Recent Vital Signs: Last Vital Signs Temp 98.4 F 04/02/18 06:00 Pulse 77 04/02/18 06:00 Resp 18 04/02/18 06:00 BP 130/75 04/02/18 06:00 Pulse Ox 99 04/02/18 06:00 - Labs Result Diagrams: 04/02/18 06:30 04/02/18 06:30 Labs: Laboratory Results - last 24 hr 04/01/18 04/01/18 04/01/18 18:02 18:02 18:02 WBC RBC Hgb Hct MCV MCH MCHC RDW Plt Count MPV Gran % Lymph % (Auto) [place] % (Auto) Eos % (Auto) Baso % (Auto) Gran # Lymph # (Auto) [place] # (Auto) Eos # (Auto) Baso # (Auto) D-Dimer, Quantitative < 200 Sodium 126 L Potassium 4.4 Chloride 88 L Carbon Dioxide 22 Anion Gap 20 BUN 16 Creatinine 1.0 Est GFR ( Amer) > 60 Est GFR (Non-Af Amer) > 60 Random Glucose 153 H Serum Osmolality Calcium 9.5 Phosphorus Magnesium Total Bilirubin AST ALT Alkaline Phosphatase Troponin I < 0.01 Total Protein Albumin Globulin Albumin/Globulin Ratio Triglycerides Cholesterol LDL Cholesterol Direct HDL Cholesterol Free T4 0.92 TSH 3rd Generation Urine Osmolality Urine Opiates Screen Urine Methadone Screen Ur Barbiturates Screen Ur Phencyclidine Scrn Ur Amphetamines Screen U Benzodiazepines Scrn U Oth Cocaine Metabols U Cannabinoids Screen Alcohol, Quantitative < 10 04/01/18 04/01/18 04/01/18 18:02 22:10 22:32 WBC RBC Hgb Hct MCV MCH MCHC RDW Plt Count MPV Gran % Lymph % (Auto) [place] % (Auto) Eos % (Auto) Baso % (Auto) Gran # Lymph # (Auto) [place] # (Auto) Eos # (Auto) Baso # (Auto) D-Dimer, Quantitative Sodium 126 L Potassium 5.7 H* D Chloride 91 L Carbon Dioxide 22 Anion Gap 19 BUN 18 Creatinine 0.9 Est GFR ( Amer) > 60 Est GFR (Non-Af Amer) > 60 Random Glucose 161 H Serum Osmolality 260 L Calcium 9.4 Phosphorus Magnesium Total Bilirubin AST ALT Alkaline Phosphatase Troponin I Total Protein Albumin Globulin Albumin/Globulin Ratio Triglycerides Cholesterol LDL Cholesterol Direct HDL Cholesterol Free T4 TSH 3rd Generation Urine Osmolality Urine Opiates Screen Negative Urine Methadone Screen Negative Ur Barbiturates Screen Negative Ur Phencyclidine Scrn Negative Ur Amphetamines Screen Negative U Benzodiazepines Scrn Negative U Oth Cocaine Metabols Negative U Cannabinoids Screen Negative Alcohol, Quantitative 04/01/18 04/02/18 04/02/18 22:34 02:15 06:30 WBC 4.6 RBC 3.78 Hgb 12.1 L Hct 33.9 L MCV 89.7 MCH 32.0 MCHC 35.7 RDW 13.1 Plt Count 237 MPV 8.6 Gran % 82.3 H Lymph % (Auto) 10.8 L [place] % (Auto) 6.9 H Eos % (Auto) 0.0 L Baso % (Auto) 0.0 Gran # 3.80 Lymph # (Auto) 0.5 L [place] # (Auto) 0.3 Eos # (Auto) 0.0 Baso # (Auto) 0.00 D-Dimer, Quantitative Sodium Potassium Chloride Carbon Dioxide Anion Gap BUN Creatinine Est GFR ( Amer) Est GFR (Non-Af Amer) Random Glucose Serum Osmolality Calcium Phosphorus Magnesium Total Bilirubin AST ALT Alkaline Phosphatase Troponin I < 0.01 Total Protein Albumin Globulin Albumin/Globulin Ratio Triglycerides Cholesterol LDL Cholesterol Direct HDL Cholesterol Free T4 TSH 3rd Generation Urine Osmolality 179 L Urine Opiates Screen Urine Methadone Screen Ur Barbiturates Screen Ur Phencyclidine Scrn Ur Amphetamines Screen U Benzodiazepines Scrn U Oth Cocaine Metabols U Cannabinoids Screen Alcohol, Quantitative 04/02/18 04/02/18 06:30 06:30 WBC RBC Hgb Hct MCV MCH MCHC RDW Plt Count MPV Gran % Lymph % (Auto) [place] % (Auto) Eos % (Auto) Baso % (Auto) Gran # Lymph # (Auto) [place] # (Auto) Eos # (Auto) Baso # (Auto) D-Dimer, Quantitative Sodium 133 Potassium 4.9 Chloride 100 Carbon Dioxide 22 Anion Gap 16 BUN 14 Creatinine 0.7 L Est GFR ( Amer) > 60 Est GFR (Non-Af Amer) > 60 Random Glucose 131 H Serum Osmolality Calcium 9.8 Phosphorus 3.3 Magnesium 1.9 Total Bilirubin 0.2 AST 24 ALT 17 Alkaline Phosphatase 55 Troponin I Total Protein 6.6 Albumin 4.1 Globulin 2.4 Albumin/Globulin Ratio 1.7 Triglycerides 48 Cholesterol 194 LDL Cholesterol Direct 104 HDL Cholesterol 60 Free T4 TSH 3rd Generation 2.15 Urine Osmolality Urine Opiates Screen Urine Methadone Screen Ur Barbiturates Screen Ur Phencyclidine Scrn Ur Amphetamines Screen U Benzodiazepines Scrn U Oth Cocaine Metabols U Cannabinoids Screen Alcohol, Quantitative Assessment & Plan - Assessment and Plan (Free Text) Assessment: A 63 year old male who came in to the ER due to shortness of breath and productive coughing for the past 4 days. He took over the counter cough medicine but with no relief. Complaints of chest pain radiating to shoulder especially when coughing. Musculoskeletal in nature, chest tender to touch and chest discomfort when deep breathing. history of coronary artery disease post CABG, post stents,TIA, COPD, hypertension, carotid endarterectomy,arthritis, cholecystectomy,current smoker for 30 years ,alcohol abuse, uses marijuana and heroin. Troponin normal x 3. Chest X ray normal. EKG- normal sinus rhythym , no ischemia, Rule out acute coronary syndrome.Chest pain musculoskeletal in nature. Exacerbation of COPD. Patient non compliant and still continues to drink alcohol and smoke. Review of previous cardiac work up: 04/26/17- Abnormal Stress test, recommended cardiac catheterization but refused 02/22/17- ECHO done- normal LV function LVEF 50% Plan: Will start Naprosyn for the muskuloskeletal pain Continue nebulizer treatment, refusing treatment, instructed Heart rate and blood pressure stable Troponin normal x 3 Continue current treatment Continue current medications Smoking cessation Elevated potassium, given kayexalate, Repeat this morning 4.9 Will follow up Further recommendations during hospital course Plan and treatment discussed with Dr. Verdin Thank you for the opportunity of taking care of Mr. [place] Alexandra - Date & Time Date: 04/02/18 Time: 06:25
--- NOTE | 2018-04-02 07:53 | CP.PCM.PN ---
<Jay Jay Salas - Last Filed: 04/02/18 18:19> Subjective - Date & Time of Evaluation Date of Evaluation: 04/02/18 Time of Evaluation: 06:25 - Subjective Subjective: Jay Jay Salas DO PGY-1, Internal Medicine Resident. Hospitalist Progress Note Patient seen and examined at bedside. Patient is resting in bed. No acute events overnight. His breathing pattern is getting better. Still have productive cough with wheezing which is improving. Tolerating his diet with regular bowel movements. Patient denied palpitations, headache, fever. ROS is otherwise negative Objective - Vital Signs/Intake and Output Vital Signs (last 24 hours): Temp Pulse Resp BP Pulse Ox 98.4 F 77 18 130/75 99 04/02/18 06:00 04/02/18 06:00 04/02/18 06:00 04/02/18 06:00 04/02/18 06:00 Intake and Output: 04/02/18 04/02/18 06:59 18:59 Intake Total 1500 Output Total 1750 Balance -250 - Medications Medications: Current Medications Acetaminophen (Tylenol 325mg Tab) 650 mg PO Q4 PRN PRN Reason: Pain, severe (8-10) Albuterol/Ipratropium (Duoneb 3 Mg/0.5 Mg (3 Ml) Ud) 3 ml IH [id number] [facility] Last Admin: 04/02/18 03:40 Dose: Not Given Albuterol/Ipratropium (Duoneb 3 Mg/0.5 Mg (3 Ml) Ud) 3 ml IH Q2H PRN PRN Reason: Shortness of Breath Enoxaparin Sodium (Lovenox) 40 mg SC DAILY [facility] PRN Reason: Protocol Last Admin: 04/01/18 16:43 Dose: Not Given Sodium Chloride (Sodium Chloride 0.9%) 1,000 mls @ 100 mls/hr IV .Q10H [facility] Last Admin: 04/02/18 01:18 Dose: 100 mls/hr Azithromycin (Zithromax 500mg In Ns) 500 mg in 250 mls @ 167 mls/hr IVPB DAILY [facility] PRN Reason: Protocol Methylprednisolone (Solu-Medrol) 20 mg IVP Q12 [facility] Last Admin: 04/01/18 21:21 Dose: 20 mg Pantoprazole Sodium (Protonix Ec Tab) 40 mg PO 0600 [facility] Last Admin: 04/02/18 05:06 Dose: 40 mg - Labs Labs: 04/02/18 06:30 04/02/18 06:30 PT 11.7 SECONDS (9.4-12.5) 04/01/18 10:52 INR 1.02 04/01/18 10:52 APTT 32.9 Seconds (25.1-36.5) 04/01/18 10:52 - Additional Findings Additional findings: - Constitutional Appears: Well - Head Exam Head Exam: ATRAUMATIC, NORMAL INSPECTION, NORMOCEPHALIC Additional comments: erythematous oropharynix with no exudate bilateral submandibular lymphadenopathy - Eye Exam Eye Exam: EOMI, PERRL Pupil Exam: NORMAL ACCOMODATION - ENT Exam ENT Exam: Mucous Membranes Dry - Neck Exam Neck exam: Positive for: Lymphadenopathy - Respiratory Exam Respiratory Exam: prolonged expiratory phase, Wheezes getting better - Cardiovascular Exam Cardiovascular Exam: REGULAR RHYTHM, +S1, +S2 - GI/Abdominal Exam GI & Abdominal Exam: Normal Bowel Sounds, Soft. absent: Tenderness - Extremities Exam Extremities exam: Positive for: normal capillary refill, pedal pulses present. Negative for: calf tenderness, pedal edema - Back Exam Back exam: NORMAL INSPECTION - Neurological Exam Neurological exam: Alert, CN II-XII Intact, Oriented x3, Reflexes Normal - Psychiatric Exam Psychiatric exam: Normal Affect, Normal Mood - Skin Skin Exam: Dry, Intact, Normal Color, Warm Assessment and Plan - Assessment and Plan (Free Text) Assessment: 63 y/o male with PMH of HTN, COPD, TIA, CAD with stents, CABG presents to the ED complaining of 4 days history of progresstive productive cough with greenish sputum and shortness of breath associated with URI symptoms. Admitted for chest pain to r/o ASC and dyspnea in the setting of COPD exacerbation Plan: Chest pain -Troponin negative x3 -EKG shows NSR without evidence of active ischemia -CXR: showed no active cardiopulmonary disease -Tylenol for pain prn Dyspnea -COPD exacerbation -continue Solumedrol 20 mg IVP q12h -continue Duoneb q4h MAHSA nad q2h PRN -continue Azithromycin -D-dimer negative -Blood Cx negative to date -Influenza A B ordered -CT chest showed no acute finding, no pneumonia H/O CAD with stents, CABG -Patient had abnormal stress last year but refused cardiac cath -As per cardiology consult: Tramaine for the muskuloskeletal pain -lipid panel normal -Hgb A1C 5.8 -ECHO (02/2017) LVEF 50%, normal LV function Hyponatremia-improved -Likely due to dehydration -Hold IVF -Urine osmolality low -TSH high, repeated was normal H/O alcohol abuse -Still consumed alcohol -alcohol level negative -UDS negative -Alcohol cessation encouraged H/O smoking -Patient counseled to stop smoking -Nicotine patch given Prophylaxis -DVT Lovenox -GI ppx: Protonix -PT eval and treat -heart healthy diet -seizure precautions -fall precautions -aspiration precaution Case reviewed and plan discussed with Dr Dickerson <Ministerio Dickerson - Last Filed: 04/02/18 19:16> Objective - Vital Signs/Intake and Output Vital Signs (last 24 hours): Temp Pulse Resp BP Pulse Ox 98.2 F 84 18 95/54 L 96 04/02/18 15:57 04/02/18 15:57 04/02/18 15:57 04/02/18 15:57 04/02/18 15:57 - Medications Medications: Current Medications Acetaminophen (Tylenol 325mg Tab) 650 mg PO Q4 PRN PRN Reason: Pain, severe (8-10) Albuterol/Ipratropium (Duoneb 3 Mg/0.5 Mg (3 Ml) Ud) 3 ml IH [id number] [facility] Last Admin: 04/02/18 14:47 Dose: 3 ml Albuterol/Ipratropium (Duoneb 3 Mg/0.5 Mg (3 Ml) Ud) 3 ml IH Q2H PRN PRN Reason: Shortness of Breath Enoxaparin Sodium (Lovenox) 40 mg SC DAILY [facility] PRN Reason: Protocol Last Admin: 04/02/18 09:09 Dose: 40 mg Azithromycin (Zithromax 500mg In Ns) 500 mg in 250 mls @ 167 mls/hr IVPB DAILY [facility] PRN Reason: Protocol Last Admin: 04/02/18 09:09 Dose: 167 mls/hr Methylprednisolone (Solu-Medrol) 20 mg IVP Q12 [facility] Last Admin: 04/02/18 09:09 Dose: 20 mg Naproxen (Anaprox Ds) 550 mg PO BID [facility] Last Admin: 04/02/18 18:10 Dose: 550 mg Nicotine (Nicoderm Cq) 1 patch TD DAILY [facility] Last Admin: 04/02/18 11:37 Dose: 1 patch Pantoprazole Sodium (Protonix Ec Tab) 40 mg PO 0600 [facility] Last Admin: 04/02/18 05:06 Dose: 40 mg - Labs Labs: 04/02/18 06:30 04/02/18 06:30 PT 11.7 SECONDS (9.4-12.5) 04/01/18 10:52 INR 1.02 04/01/18 10:52 APTT 32.9 Seconds (25.1-36.5) 04/01/18 10:52 Attending/Attestation - Attestation I have personally seen and examined this patient.: Yes I have fully participated in the care of the patient.: Yes I have reviewed all pertinent clinical information, including history, physical exam and plan: Yes Notes (Text): 04/02/18 19:14 63 year old male with past medical history of hypertension, CAD s/p stents s/p CABG, COPD, tobacco use and gastritis who presents with complaint of cough, shortness of breath and chest pain. D-dimer was negative. CT chest negative for pneumonia. He was admitted for COPD exacerbation and started on iv steroids, duonebs and antibiotics. He was counselled on smoking cessation. Serial cardiac enzymes are negative and ACS has been ruled out. Cardiology evaluation was appreciated; will follow up with recommendations. Patient has history of abnormal stress test last year but at the time refused cardiac cath. He was recently recommended to repeat stress test but failed to comply. Hyponatremia has resolved. Will d/c IVF. TSH was initially elevated but repeat TSH is normal. Recommended to repeat TFTs in 4-6 weeks. Ministerio Dickerson MD Hospitalist.
[2018-04-02] MEDS: Naproxen 550 mg Tab PO SCH ×2 (09:09→18:10)
[2018-04-02] MEDS: Enoxaparin 40 mg Syringe SC SCH (09:09)
[2018-04-02] MEDS: MethylPREDNISolone 40 mg Vial IVP SCH ×2 (09:09→21:50)
[2018-04-02] MEDS: Azithromycin 500MG/NS 250ml 500 MG/250 ML BAG IVPB SCH (09:09)
--- NOTE | 2018-04-02 09:38 | CARD ---
APPROVED REPORT Date of service: 04/02/2018 EKG Measurement Heart [id number] <Conclusion> Normal sinus rhythm Possible Anterior infarct, age undetermined Abnormal ECG
--- NOTE | 2018-04-02 12:22 | CARD ---
APPROVED REPORT Date of service: 04/01/2018 EKG Measurement Heart [id number] <Conclusion> Sinus bradycardia Otherwise normal ECG
--- NOTE | 2018-04-02 15:15 | CT ---
Date of service: 04/02/2018 PROCEDURE: CT Chest without contrast HISTORY: COPD, PNA COMPARISON: 02/22/2017 TECHNIQUE: Contiguous axial images were obtained through the chest without intravenous contrast enhancement. Sagittal and coronal reconstructions were performed. Radiation dose (DLP): 466 mGy-cm. This CT exam was performed using one or more of the following dose reduction techniques: Automated exposure control, adjustment of the mA and/or kV according to patient size, and/or use of iterative reconstruction technique. FINDINGS: LUNGS: There is minimal scarring in both lung apices. Findings are unchanged MEDIASTINUM: Unremarkable thoracic aorta. No aneurysm. Normal sized heart. Main pulmonary artery unremarkable. No vascular congestion. No lymphadenopathy. There is heavy calcification of the coronary arteries PLEURA: No pleural fluid. No pneumothorax. BONES: No fracture. No destructive lesion. UPPER ABDOMEN: Grossly unremarkable. OTHER FINDINGS: None. IMPRESSION: No acute findings. No evidence of pneumonia
[2018-04-02 15:58] VITALS: BP 95/54; PULSE 84; TEMP 98.2; O2SAT 96
[2018-04-02 22:36] LABS: URINE 24 HOUR SODIUM 50.4 meq/24HR (43-217)
[2018-04-03] MEDS: Albuterol-Ipratrop 3 mg / 0.5 (3 ml) UD IH SCH ×5 (00:05→16:23)
[2018-04-03] MEDS: Pantoprazole 40 mg EC Tab PO SCH (05:53)
--- NOTE | 2018-04-03 07:12 | CP.PCM.PN ---
Subjective - Date & Time of Evaluation Date of Evaluation: 04/03/18 Time of Evaluation: 06:40 - Subjective Subjective: Ambulatory, sitting at side of bed, awake, alert, pain on chest and shoulder better with Naprosyn Reason for consultation and follow up: Cardiac evaluation of chest pain, history of coronary artery disease post CABG, post stents,TIA, COPD, hypertension. Seen and examined by me and Dr. Verdin Objective - Vital Signs/Intake and Output Vital Signs (last 24 hours): Temp Pulse Resp BP Pulse Ox 98.2 F 84 18 95/54 L 96 04/02/18 15:57 04/02/18 15:57 04/02/18 15:57 04/02/18 15:57 04/02/18 15:57 Intake and Output: 04/03/18 04/03/18 06:59 18:59 Intake Total 480 Balance 480 - Medications Medications: Current Medications Acetaminophen (Tylenol 325mg Tab) 650 mg PO Q4 PRN PRN Reason: Pain, severe (8-10) Albuterol/Ipratropium (Duoneb 3 Mg/0.5 Mg (3 Ml) Ud) 3 ml IH [id number] [facility] Last Admin: 04/03/18 03:30 Dose: Not Given Albuterol/Ipratropium (Duoneb 3 Mg/0.5 Mg (3 Ml) Ud) 3 ml IH Q2H PRN PRN Reason: Shortness of Breath Enoxaparin Sodium (Lovenox) 40 mg SC DAILY [facility] PRN Reason: Protocol Last Admin: 04/02/18 09:09 Dose: 40 mg Azithromycin (Zithromax 500mg In Ns) 500 mg in 250 mls @ 167 mls/hr IVPB DAILY [facility] PRN Reason: Protocol Last Admin: 04/02/18 09:09 Dose: 167 mls/hr Methylprednisolone (Solu-Medrol) 20 mg IVP Q12 [facility] Last Admin: 04/02/18 21:50 Dose: 20 mg Naproxen (Anaprox Ds) 550 mg PO BID [facility] Last Admin: 04/02/18 18:10 Dose: 550 mg Nicotine (Nicoderm Cq) 1 patch TD DAILY [facility] Last Admin: 04/02/18 11:37 Dose: 1 patch Pantoprazole Sodium (Protonix Ec Tab) 40 mg PO 0600 [facility] Last Admin: 04/03/18 05:53 Dose: 40 mg - Labs Labs: 04/02/18 06:30 04/02/18 06:30 PT 11.7 SECONDS (9.4-12.5) 04/01/18 10:52 INR 1.02 04/01/18 10:52 APTT 32.9 Seconds (25.1-36.5) 04/01/18 10:52 - Constitutional Appears: No Acute Distress - Head Exam Head Exam: NORMOCEPHALIC - Eye Exam Eye Exam: Normal appearance - ENT Exam ENT Exam: Mucous Membranes Moist - Respiratory Exam Respiratory Exam: Decreased Breath Sounds, Rhonchi, NORMAL BREATHING PATTERN - Cardiovascular Exam Cardiovascular Exam: REGULAR RHYTHM, +S1, +S2 - GI/Abdominal Exam GI & Abdominal Exam: Soft, Normal Bowel Sounds - Extremities Exam Extremities Exam: Normal Capillary Refill - Neurological Exam Neurological Exam: Alert, Awake, Oriented x3 - Psychiatric Exam Psychiatric exam: Normal Affect - Skin Skin Exam: Dry, Warm Assessment and Plan - Assessment and Plan (Free Text) Assessment: A 63 year old male who came in to the ER due to shortness of breath and productive coughing for the past 4 days. He took over the counter cough medicine but with no relief. Complaints of chest pain radiating to shoulder especially when coughing. Musculoskeletal in nature, chest tender to touch and chest discomfort when deep breathing. history of coronary artery disease post CABG, post stents,TIA, COPD, hypertension, carotid endarterectomy,arthritis, cholecystectomy,current smoker for 30 years ,alcohol abuse, uses marijuana and heroin. Troponin normal x 3. Chest X ray normal. EKG- normal sinus rhythym , no ischemia, Rule out acute coronary syndrome.Chest pain musculoskeletal in nature. Exacerbation of COPD. Patient non compliant and still continues to drink alcohol and smoke. 04/26/17- Abnormal Stress test, recommended cardiac catheterization but refused. 02/22/17- ECHO done- normal LV function, LVEF 50% Plan: Muskuloskeletal chest pain better with Naprosyn Heart rate and blood pressure stable Troponin normal x 3 EKG, sinus bradycardia, no ischemia CT of chest -normal/unremarkable Continue current treatment Continue current medications Smoking cessation Alcohol withdrawal precaution Fall precaution Wanted to go home Will follow up Plan and treatment discussed with Dr. Verdin
[2018-04-03 07:47] LABS: GRAN # 7.38 (1.4-6.5); GRAN % 81.7 % (50.0-68.0); HEMOGLOBIN 12.5 g/dL (14.0-18.0); LYMPH # 0.7 (1.2-3.4); LYMPH % 7.5 % (22.0-35.0); MEAN CELL VOLUME 92.6 fl (80.0-105.0); MEAN CORPUSCULAR HGB CONC 34.5 g/dl (31.0-37.0); MEAN PLATELET VOLUME 8.5 fl (7.0-11.0); MONO % 10.8 % (1.0-6.0); RBC 3.91 10^6/uL (3.5-6.1); RED CELL DISTRIBUTION WIDTH 13.9 % (11.5-14.5)
[2018-04-03 07:59] LABS: ALB/GLOB RATIO 1.6 (1.1-1.8); ALBUMIN 4.6 g/dL (3.0-4.8); ALT/SGPT 15 U/L (7-56); AST/SGOT 27 U/L (17-59); BLOOD UREA NITROGEN 22 mg/dL (7-21); CALCIUM 9.9 mg/dL (8.4-10.5); GFR NON-AFRICAN AMERICAN > 60
[2018-04-03] MEDS: MethylPREDNISolone 40 mg Vial IVP SCH (10:24)
[2018-04-03] MEDS: Azithromycin 500MG/NS 250ml 500 MG/250 ML BAG IVPB SCH (10:24)
[2018-04-03] MEDS: Naproxen 550 mg Tab PO SCH (10:24)
[2018-04-03] MEDS: Enoxaparin 40 mg Syringe SC SCH (10:26)
[2018-04-03] MEDS ORDERED: Sod Polystyrene Sulf 15 gm/60 ml Susp PO ONE (11:12)
--- NOTE | 2018-04-03 12:19 | CP.PCM.DIS ---
Provider - Provider Date of Admission: 04/01/18 13:31 Attending physician: Ministerio Dickerson MD Primary care physician: Lauren Damon [facility] Course - Lab Results Lab Results: Most Recent Lab Values WBC 9.0 10^3/ul (4.5-11.0) D 04/03/18 07:30 RBC 3.91 10^6/uL (3.5-6.1) 04/03/18 07:30 Hgb 12.5 g/dL (14.0-18.0) L 04/03/18 07:30 Hct 36.2 % (42.0-52.0) L 04/03/18 07:30 MCV 92.6 fl (80.0-105.0) 04/03/18 07:30 MCH 32.0 pg (25.0-35.0) 04/03/18 07:30 MCHC 34.5 g/dl (31.0-37.0) 04/03/18 07:30 RDW 13.9 % (11.5-14.5) 04/03/18 07:30 Plt Count 267 10^3/uL (120.0-450.0) 04/03/18 07:30 MPV 8.5 fl (7.0-11.0) 04/03/18 07:30 Gran % 81.7 % (50.0-68.0) H 04/03/18 07:30 Lymph % (Auto) 7.5 % (22.0-35.0) L 04/03/18 07:30 Simpson % (Auto) 10.8 % (1.0-6.0) H 04/03/18 07:30 Eos % (Auto) 0.0 % (1.5-5.0) L 04/03/18 07:30 Baso % (Auto) 0.0 % (0.0-3.0) 04/03/18 07:30 Gran # 7.38 (1.4-6.5) H 04/03/18 07:30 Lymph # (Auto) 0.7 (1.2-3.4) L 04/03/18 07:30 Simpson # (Auto) 1.0 (0.1-0.6) H 04/03/18 07:30 Eos # (Auto) 0.0 (0.0-0.7) 04/03/18 07:30 Baso # (Auto) 0.00 K/mm3 (0.0-2.0) 04/03/18 07:30 PT 11.7 SECONDS (9.4-12.5) 04/01/18 10:52 INR 1.02 04/01/18 10:52 APTT 32.9 Seconds (25.1-36.5) 04/01/18 10:52 D-Dimer, Quantitative < 200 ng/mlDDU (0-243) 04/01/18 18:02 pO2 53 mm/Hg (30-55) 04/01/18 10:52 VBG pH 7.38 (7.32-7.43) 04/01/18 10:52 VBG pCO2 42.0 (40-60) 04/01/18 10:52 VBG HCO3 24.8 mmol/l (21-28) 04/01/18 10:52 VBG Total CO2 26.1 mmol.L (22-28) 04/01/18 10:52 VBG O2 Sat (Calc) 91.8 % (40-65) H 04/01/18 10:52 VBG Base Excess -0.4 mmol/L (0.0-2.0) L 04/01/18 10:52 VBG Potassium 4.5 mmol/L (3.6-5.2) 04/01/18 10:52 Sodium 121.0 mmol/L (132-148) L 04/01/18 10:52 Chloride 90.0 mmol/L (98-107) L 04/01/18 10:52 Glucose 81 mg/dl (75-110) 04/01/18 10:52 Lactate 1.0 mmol/L (0.7-2.1) 04/01/18 10:52 FiO2 21.0 % 04/01/18 10:52 Sodium 137 mmol/L (132-148) 04/03/18 07:30 Potassium 5.2 mmol/L (3.6-5.0) H 04/03/18 07:30 Chloride 101 mmol/L (98-107) 04/03/18 07:30 Carbon Dioxide 26 mmol/L (21-33) 04/03/18 07:30 Anion Gap 16 (10-20) 04/03/18 07:30 BUN 22 mg/dL (7-21) H 04/03/18 07:30 Creatinine 0.9 mg/dl (0.8-1.5) 04/03/18 07:30 Est GFR ( Amer) > 60 04/03/18 07:30 Est GFR (Non-Af Amer) > 60 04/03/18 07:30 Random Glucose 103 mg/dL (70-110) 04/03/18 07:30 Hemoglobin A1c 5.8 % (4.2-6.5) 04/02/18 06:30 Serum Osmolality 260 mosm/kg (272-300) L 04/01/18 18:02 Calcium 9.9 mg/dL (8.4-10.5) 04/03/18 07:30 Phosphorus 3.8 mg/dL (2.5-4.5) 04/03/18 07:30 Magnesium 2.1 mg/dL (1.7-2.2) 04/03/18 07:30 Total Bilirubin 0.3 mg/dL (0.2-1.3) 04/03/18 07:30 AST 27 U/L (17-59) 04/03/18 07:30 ALT 15 U/L (7-56) 04/03/18 07:30 Alkaline Phosphatase 57 U/L (38-126) 04/03/18 07:30 Troponin I < 0.01 ng/mL 04/02/18 02:15 NT-Pro-B Natriuret Pep 214 pg/mL (0-450) 04/01/18 10:52 Total Protein 7.5 g/dL (5.8-8.3) 04/03/18 07:30 Albumin 4.6 g/dL (3.0-4.8) 04/03/18 07:30 Globulin 2.8 gm/dL 04/03/18 07:30 Albumin/Globulin Ratio 1.6 (1.1-1.8) 04/03/18 07:30 Triglycerides 48 mg/dL (35-160) 04/02/18 06:30 Cholesterol 194 mg/dL (130-200) 04/02/18 06:30 LDL Cholesterol Direct 104 mg/dL (0-129) 04/02/18 06:30 HDL Cholesterol 60 mg/dL (29-60) 04/02/18 06:30 Free T4 0.92 ng/dL (0.78-2.19) 04/01/18 18:02 TSH 3rd Generation 2.15 mIU/mL (0.46-4.68) 04/02/18 06:30 Venous Blood Potassium 4.5 mmol/L (3.6-5.2) 04/01/18 10:52 Urine Osmolality 179 mosm/kg (300-1000) L 04/01/18 22:34 Urine Collection Time 24 HOURS 04/02/18 22:03 Urine Total Volume 3600 mL (800-1400) H 04/02/18 22:03 Ur Sodium 24 Hour 50.4 meq/24HR (43-217) 04/02/18 22:03 Urine Opiates Screen Negative (NEGATIVE) 04/01/18 22:32 Urine Methadone Screen Negative (NEGATIVE) 04/01/18 22:32 Ur Barbiturates Screen Negative (NEGATIVE) 04/01/18 22:32 Ur Phencyclidine Scrn Negative (NEGATIVE) 04/01/18 22:32 Ur Amphetamines Screen Negative (NEGATIVE) 04/01/18 22:32 U Benzodiazepines Scrn Negative (NEGATIVE) 04/01/18 22:32 U Oth Cocaine Metabols Negative (NEGATIVE) 04/01/18 22:32 U Cannabinoids Screen Negative (NEGATIVE) 04/01/18 22:32 Alcohol, Quantitative < 10 mg/dL (0-10) 04/01/18 18:02 Discharge Exam - Head Exam Head Exam: NORMOCEPHALIC Discharge Plan - Discharge Medications Prescriptions: Azithromycin [Zithromax] 250 mg PO DAILY #6 tab - Follow Up Plan Condition: STABLE Disposition: HOME/ ROUTINE Additional Instructions: -Please follow up with your PMD within one week after discharge -Please resume your home medications as prescribed -Please take antibiotic Azithromax as prescribed -We contacted your PMD Dr Damon at [phone] to follow up regarding your chest lump as outpatient. She will order mammogram for you. The doctor office will call you to schedule an appointment -Please follow up with your senior java programmer -Please go to the nearest emergency department if you have worsening symptoms -Please stop smoking to reduce hospital admission rate and to reduce the risk of coronary artery disease and stroke Referrals: Lauren Damon DO [Primary Care Provider] -
== END 2018-04-03 13:43 | disposition home or self-care (01) | DRG 191 ==
LOC: ED 10:27 → ERH 13:31 → 3RNO 16:34
PROVIDERS: ADMIT Hospitalist; ATTEND Internal Medicine
DX: J44.1 Chronic obstructive pulmonary disease with (acute) exacerbation (principal); E87.1 Hypo-osmolality and hyponatremia; E78.00 Pure hypercholesterolemia, unspecified; I25.10 Atherosclerotic heart disease of native coronary artery without angina pectoris; K21.9 Gastro-esophageal reflux disease without esophagitis; E86.0 Dehydration; K29.70 Gastritis, unspecified, without bleeding; I10 Essential (primary) hypertension; I73.9 Peripheral vascular disease, unspecified; I83.93 Asymptomatic varicose veins of bilateral lower extremities; F17.210 Nicotine dependence, cigarettes, uncomplicated; Z86.73 Personal history of transient ischemic attack (TIA), and cerebral infarction without residual deficits; Z91.19 Patient's noncompliance with other medical treatment and regimen; Z87.442 Personal history of urinary calculi; Z95.5 Presence of coronary angioplasty implant and graft; Z95.1 Presence of aortocoronary bypass graft; Z90.49 Acquired absence of other specified parts of digestive tract

== ENCOUNTER 2018-04-03 16:33 | Emergency (ER) | payer MEDICARE, MEDICAID ==
[2018-04-03 16:34] VITALS: BMI 22.7
[2018-04-03 16:48] VITALS: TEMP 98.2
--- NOTE | 2018-04-03 17:10 | ED PDOC ---
Arrival/HPI - General Chief Complaint: Alcohol Ingestion Time Seen by Provider: 04/03/18 16:59 Historian: Patient - History of Present Illness Narrative History of Present Illness (Text): 04/03/18 16:59 63 year old male, with past medical history of HTN, COPD, TIA, CAD with stents, and CABG presents to the Emergency department via EMS s/p alcohol intoxication. As per EMS, patient was found outside and was subsequently brought to the Emergency department for evaluation. Patient admits to drinking today. Patient denies any fall or trauma. Patient denies any somatic complaints including fevers, chills, headache, dizziness, chest pain, shortness of breath, abdominal pain, nausea, vomiting, diarrhea, back pain, neck pain, or any other complaints. Patient denies any suicidal or homicidal ideation. Time/Duration: Prior to Arrival Symptom Onset: Gradual Symptom Course: Unchanged Activities at Onset: Light Context: Street Past Medical History - Provider Review Nursing Documentation Reviewed: Yes - Past History Past History: No Previous - Infectious Disease Hx of Infectious Diseases: None - Tetanus Immunization Tetanus Immunization: Unknown - Reproductive Currently Lactating: No - Cardiac Hx Cardiac Disorders: Yes (CAD,CABG) Hx Angina: Yes Hx Cardiac Arrhythmia: Yes Hx Hypertension: Yes Hx Peripheral Vascular Disease: Yes Other/Comment: Carotid enarterectomy - Pulmonary Hx Respiratory Disorders: Yes Hx Asthma: Yes Hx Chronic Obstructive Pulmonary Disease (COPD): Yes Hx Emphysema: Yes - Neurological Hx Neurological Disorder: Yes Hx Dizziness: Yes Hx Migraine: Yes Hx Transient Ischemic Attacks (TIA): Yes - HEENT Hx HEENT Disorder: Yes Hx Cataracts: Yes - Renal Hx Renal Disorder: Yes Hx Kidney Stones: Yes - Endocrine/Metabolic Hx Endocrine Disorders: No - Hematological/Oncological Hx Blood Disorders: No - Integumentary Hx Dermatological Disorder: Yes Other/Comment: VARICOSE 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 - Musculoskeletal/Rheumatological Hx Musculoskeletal Disorders: Yes Hx Arthritis: Yes Hx Degenerative Joint Disease: Yes Hx Falls: Yes Hx Fractures: Yes (RIB) - Gastrointestinal Hx Gastrointestinal Disorders: Yes (COLITIS,DIVERTICULOSIS) Hx Gastroesophageal Reflux: Yes - Genitourinary/Gynecological Hx Genitourinary Disorders: Yes Hx Urinary Tract Infection: Yes - Psychiatric Hx Psychophysiologic Disorder: Yes (USED TO DRINK ALCOHOL.H/O ETOH ABUSE. QUIT.) Hx Anxiety: Yes Hx Substance Use: No (DENIES) - Surgical History Hx Cardiac Catheterization: Yes (CORONARY STENT) Hx Cholecystectomy: Yes Hx Coronary Stent: Yes Hx Open Heart Surgery: Yes (triple bypass) - Anesthesia Hx Anesthesia: Yes Hx Anesthesia Reactions: No Hx Malignant Hyperthermia: No - Suicidal Assessment Feels Threatened In Home Enviroment: No Family/Social History - Physician Review Nursing Documentation Reviewed: Yes Family/Social History: No Known Family HX Smoking Status: Current Some Days Smoker Hx Alcohol Use: Yes (ETOH ABUSE. SOBER FOR 1 YR.) Hx Substance Use: No (DENIES) Substance used: HEROIN, MARIJUANA Hx Substance Use Treatment: No Allergies/Home Meds Allergies/Adverse Reactions: Allergies shellfish derived Allergy (Verified 04/03/18 16:39) ANAPHYLAXIS Sulfa (Sulfonamide Antibiotics) Allergy (Verified 04/03/18 16:39) RASH Home Medications: Home Meds Medication Instructions Recorded Confirmed Unobtainable 04/03/18 04/03/18 Review of Systems - Physician Review All systems were reviewed & negative as marked: Yes - Review of Systems Constitutional: absent: Fevers Respiratory: absent: SOB, Cough Cardiovascular: absent: Chest Pain Gastrointestinal: absent: Abdominal Pain, Nausea, Vomiting, Appetite Changes Musculoskeletal: absent: Back Pain, Neck Pain Neurological: absent: Headache, Dizziness Psychiatric: absent: Suicidal Ideation Physical Exam Vital Signs Reviewed: Yes Vital Signs Temp Pulse Resp BP Pulse Ox 04/03/18 16:48 98.2 F 85 18 142/81 99 Temperature: Afebrile Blood Pressure: Normal Pulse: Regular Respiratory Rate: Normal Appearance: Positive for: Other (disheveled; Alcohol on breath) Pain Distress: None Mental Status: Positive for: Alert and Oriented X 3 Finger Stick Blood Glucose: 106 - Systems Exam Head: Present: Atraumatic, Normocephalic Pupils: Present: PERRL Extroacular Muscles: Present: EOMI Conjunctiva: Present: Normal Mouth: Present: Moist Mucous Membranes, Other (Alcohol on breath) Neck: Present: Normal Range of Motion Respiratory/Chest: Present: Clear to Auscultation, Good Air Exchange. No: Respiratory Distress, Accessory Muscle Use Cardiovascular: Present: Regular Rate and Rhythm, Normal S1, S2. No: Murmurs Abdomen: No: Tenderness, Distention, Peritoneal Signs Back: Present: Normal Inspection Upper Extremity: Present: Normal Inspection. No: Cyanosis, Edema Lower Extremity: Present: Normal Inspection. No: Edema Neurological: Present: GCS=15, CN II-XII Intact, Speech Normal Skin: Present: Warm, Dry, Normal Color. No: Rashes Psychiatric: Present: Alert, Oriented x 3, Normal Insight, Normal Concentration Medical Decision Making ED Course and Treatment: 04/03/18 17:14 Impression: 63 year old male presents to the Emergency department for medical evaluation s/p alcohol intoxication. Plan: -- Reassess and disposition Prior Visits: Notes and results from previous visits were reviewed. Progress Notes: 04/03/18 17:34 FS:106. Will continue to monitor for sobriety 04/03/18 22:01 Signed out patient to Dr. Byrne to monitor and reevaluate when sober - Scribe Statement The provider has reviewed the documentation as recorded by the Scribe Mary Jimenez. All medical record entries made by the Scribe were at my direction and personally dictated by me. I have reviewed the chart and agree that the record accurately reflects my personal performance of the history, physical exam, medical decision making, and the department course for this patient. I have also personally directed, reviewed, and agree with the discharge instructions and disposition. Disposition/Present on Arrival - Present on Arrival Any Indicators Present on Arrival: No History of DVT/PE: No History of Uncontrolled Diabetes: No Urinary Catheter: No History of Decub. Ulcer: No History Surgical Site Infection Following: None - Disposition Have Diagnosis and Disposition been Completed?: Yes Diagnosis: Alcohol abuse Disposition Time: 22:05 Condition: FAIR Referrals: FAMILY PROVIDER,NO [Primary Care Provider] - Follow up with primary Forms: [employer] (Indonesian)
--- NOTE | 2018-04-03 22:20 | ED PDOC ---
Physical Exam Vital Signs Reviewed: Yes Vital Signs Temp Pulse Resp BP Pulse Ox 04/04/18 02:29 86 17 124/64 99 04/03/18 22:24 69 17 98/62 L 94 L 04/03/18 16:48 98.2 F 85 18 142/81 99 Temperature: Afebrile Blood Pressure: Normal Pulse: Regular Respiratory Rate: Normal Appearance: Positive for: Well-Appearing, Non-Toxic, Comfortable Pain Distress: None Mental Status: Positive for: Alert and Oriented X 3 Finger Stick Blood Glucose: 106 Medical Decision Making ED Course and Treatment: 04/03/18 22:19: Case endorsed to me by Dr. Ahumada. Patient is a 63 year old male presents to the emergency department with a complaint of alcohol intoxication. Patient denies any complaints. Pending sobriety, reassessment and disposition. 04/04/18 05:27: On reevaluation the patient is awake and alert with steady gait. Patient is sober and stable for discharge. - Lab Interpretations Lab Results: Lab Results 04/03/18 17:05: POC Glucose (mg/dL) 106 - Scribe Statement The provider has reviewed the documentation as recorded by the Scribe Dunia Guardado Provider Scribe Attestation: All medical record entries made by the Scribe were at my direction and personally dictated by me. I have reviewed the chart and agree that the record accurately reflects my personal performance of the history, physical exam, medical decision making, and the department course for this patient. I have also personally directed, reviewed, and agree with the discharge instructions and disposition. Disposition/Present on Arrival - Present on Arrival Any Indicators Present on Arrival: No History of DVT/PE: No History of Uncontrolled Diabetes: No Urinary Catheter: No History of Decub. Ulcer: No History Surgical Site Infection Following: None - Disposition Have Diagnosis and Disposition been Completed?: Yes Diagnosis: Alcohol abuse Disposition: HOME/ ROUTINE Disposition Time: 05:27 Patient Plan: Discharge Patient Problems: Current Active Problems Problem Status Onset Alcohol abuse Acute Condition: GOOD Discharge Instructions (ExitCare): Alcohol Abuse and Alcoholism (DC) Referrals: FAMILY PROVIDER,NO [Primary Care Provider] - Follow up with primary Alcoholics Anonymous [Outside] - Follow up with primary Forms: [employer] (Peruvian)
[2018-04-04 05:32] VITALS: BP 116/59; PULSE 89; RESP 16; O2SAT 96
[2018-04-04] MEDS ORDERED: Albuterol-Ipratrop 3 mg / 0.5 (3 ml) UD ONE (06:32)
== END 2018-04-04 05:31 | disposition home or self-care (01) ==
LOC: ED 16:33
DX: F10.10 Alcohol abuse, uncomplicated (principal)

== ENCOUNTER 2018-04-04 06:24 | Inpatient (IN) | payer MEDICARE, MEDICAID ==
[2018-04-04] MEDS ORDERED: Albuterol-Ipratrop 3 mg / 0.5 (3 ml) UD IH STA (07:40)
[2018-04-04 08:12] LABS: EOS % 0.2 % (1.5-5.0); GRAN # 4.79 (1.4-6.5); GRAN % 56.7 % (50.0-68.0); HEMOGLOBIN 12.1 g/dL (14.0-18.0); LYMPH # 2.6 (1.2-3.4); MEAN CELL VOLUME 93.5 fl (80.0-105.0); MEAN CORPUSCULAR HEMOGLOBIN 32.5 pg (25.0-35.0); MEAN CORPUSCULAR HGB CONC 34.8 g/dl (31.0-37.0); MEAN PLATELET VOLUME 8.4 fl (7.0-11.0); MONO % 12.1 % (1.0-6.0); RBC 3.72 10^6/uL (3.5-6.1); RED CELL DISTRIBUTION WIDTH 14.1 % (11.5-14.5); WHITE BLOOD COUNT 8.5 10^3/ul (4.5-11.0)
--- NOTE | 2018-04-04 08:16 | ED PDOC ---
Arrival/HPI - General Chief Complaint: Shortness Of Breath Time Seen by Provider: 04/04/18 07:14 Historian: Patient - History of Present Illness Narrative History of Present Illness (Text): 04/04/18 08:33 A 63 year old male, whose past medical history includes COPD, alcohol abuse, and open surgery, presents to the emergency department after just being discharged from emergency room earlier this morning for alcohol intoxication complaining of shortness of breath and "muscle spasms in chest". Patient reports he went outside and smoked cigarettes before coming back to the emergency department. Patient denies pain with deep breaths, back pain, or neck pain. PMD: Lauren Maria Time/Duration: 1-3 hours Symptom Onset: Gradual Symptom Course: Unchanged Activities at Onset: Light Context: Home Past Medical History - Provider Review Nursing Documentation Reviewed: Yes - Past History Past History: No Previous - Infectious Disease Hx of Infectious Diseases: None - Tetanus Immunization Tetanus Immunization: Unknown - Reproductive Currently Lactating: No - Cardiac Hx Cardiac Disorders: Yes (CAD,CABG) Hx Angina: Yes Hx Cardiac Arrhythmia: Yes Hx Hypertension: Yes Hx Peripheral Vascular Disease: Yes Other/Comment: Carotid enarterectomy - Pulmonary Hx Respiratory Disorders: Yes Hx Asthma: Yes Hx Chronic Obstructive Pulmonary Disease (COPD): Yes Hx Emphysema: Yes - Neurological Hx Neurological Disorder: Yes Hx Dizziness: Yes Hx Migraine: Yes Hx Transient Ischemic Attacks (TIA): Yes - HEENT Hx HEENT Disorder: Yes Hx Cataracts: Yes - Renal Hx Renal Disorder: Yes Hx Kidney Stones: Yes - Endocrine/Metabolic Hx Endocrine Disorders: No - Hematological/Oncological Hx Blood Disorders: No - Integumentary Hx Dermatological Disorder: Yes Other/Comment: VARICOSE 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 - Musculoskeletal/Rheumatological Hx Musculoskeletal Disorders: Yes Hx Arthritis: Yes Hx Degenerative Joint Disease: Yes Hx Falls: Yes Hx Fractures: Yes (RIB) - Gastrointestinal Hx Gastrointestinal Disorders: Yes (COLITIS,DIVERTICULOSIS) Hx Gastroesophageal Reflux: Yes - Genitourinary/Gynecological Hx Genitourinary Disorders: Yes Hx Urinary Tract Infection: Yes - Psychiatric Hx Psychophysiologic Disorder: Yes (USED TO DRINK ALCOHOL.H/O ETOH ABUSE. QUIT.) Hx Anxiety: Yes Hx Substance Use: No (DENIES) - Surgical History Hx Cardiac Catheterization: Yes (CORONARY STENT) Hx Cholecystectomy: Yes Hx Coronary Stent: Yes Hx Open Heart Surgery: Yes (triple bypass) - Anesthesia Hx Anesthesia: Yes Hx Anesthesia Reactions: No Hx Malignant Hyperthermia: No - Suicidal Assessment Feels Threatened In Home Enviroment: No Family/Social History - Physician Review Nursing Documentation Reviewed: Yes Family/Social History: Unknown Family HX Smoking Status: Current Some Days Smoker Hx Alcohol Use: Yes (ETOH ABUSE. SOBER FOR 1 YR.) Hx Substance Use: No (DENIES) Substance used: HEROIN, MARIJUANA Hx Substance Use Treatment: No Allergies/Home Meds Allergies/Adverse Reactions: Allergies shellfish derived Allergy (Verified 04/03/18 16:39) ANAPHYLAXIS Sulfa (Sulfonamide Antibiotics) Allergy (Verified 04/03/18 16:39) RASH Home Medications: Home Meds Medication Instructions Recorded Confirmed Unobtainable 04/03/18 04/04/18 Review of Systems - Review of Systems Constitutional: Fatigue. absent: Fevers Eyes: absent: Vision Changes ENT: absent: Hearing Changes, Sore Throat Respiratory: SOB. absent: Other (No pain with deep breaths or hemoptysis) Cardiovascular: Chest Pain ("muscle spasms in chest") Gastrointestinal: absent: Abdominal Pain, Nausea Genitourinary Male: absent: Dysuria Musculoskeletal: absent: Back Pain, Neck Pain Skin: absent: Rash, Pruritis Neurological: absent: Headache, Dizziness, Focal Weakness Hemo/Lymphatic: absent: Easy Bleeding Psychiatric: Anxiety Physical Exam - Physical Exam Narrative Physical Exam (Text): 04/04/18 08:38 Head: Atraumatic. Normocephalic. Eyes: PERRL. EOMI. Conjunctivae are not pale. ENT: Mucous membranes are moist and intact. Oropharynx is clear and symmetric. Neck: Supple. Full ROM. No JVD. No lymphadenopathy. Cardiovascular: Regular rate. Regular rhythm. There is systolic murmur noted. Sternotomy scar noted. Distal pulses intact. Pulmonary/Chest: Diffused bilateral expiratory wheezing. No accessory muscle usage. Abdominal: Soft and non-distended. There is no tenderness. No rebound, guarding, or rigidity. No organomegaly. Good bowel sounds. Back: No CVA tenderness. Extremities: No edema. No cyanosis. No clubbing. Full range of motion in all extremities. No calf tenderness. Skin: Skin is warm and dry. No petechiae. No purpura. Neurological: Alert, awake, and oriented to person, place, time, and situation. Normal speech. No slurring. No focal motor or sensory deficits. No facial droop. Psychiatric: Good eye contact. Normal interaction, affect, and behavior. 04/04/18 11:08 Vital Signs Reviewed: Yes Vital Signs Temp Pulse Resp BP Pulse Ox 04/04/18 09:48 86 18 144/72 95 04/04/18 09:11 103 H 163/90 H 04/04/18 09:05 103 H 19 154/82 H 94 L 04/04/18 07:28 19 93 L 04/04/18 07:27 98.1 F 95 H 19 149/90 93 L 04/04/18 06:29 95 04/04/18 06:28 98.0 F 97 H 18 177/85 H 95 04/04/18 06:24 107 H 18 177/85 H 100 Temperature: Afebrile Blood Pressure: Hypertensive Pulse: Tachycardic Respiratory Rate: Normal Appearance: Positive for: Uncomfortable Pain Distress: Mild Mental Status: Positive for: Alert and Oriented X 3 Medical Decision Making ED Course and Treatment: 04/04/18 08:16 Impression: 63 year old male presenting to the emergency department complaining of chest pain and shortness of breath. Plan: -- EKG -- Cardiac ISO -- CMP -- CBC -- Duoneb -- Solu-medrol -- Reassess and disposition Prior Visits: Notes and results from previous visits were reviewed. Patient was last seen in the emergency department on 04/03/18, yesterday, for alcohol intoxication and was discharged this morning when condition was stable for discharge. Chest X- ray results from 04/01/18 show no active pulmonary disease. Chest CT results from 04/02/18 shows no acute findings and no evidence of pneumonia. Progress Notes: 04/04/18 08:30 On exam, patient had palpable chest pain and diffused wheezing, nebulizer and steroids were ordered. He has persistent pain and wheezing on re-evaluation. IV morphine ordered. Labs ordered as patient with cardiac risk factors, with reported history of stents, smoking, CAD. Troponin elevated. Patient complains of persistent pain. EKG repeated and oncall outpatient admitting clerk Dr. Verdin consulted. Lovenox and aspirin/plavix ordered. Patient with improved pain after nitrates. Requested ICU consultation for COPD exacerbation and elevated troponin. Patient currently stable for telemetry admission. Treatment plan and abnormal findings reviewed with patient and patient accepted to hospitalist service, Dr. Dickerson accepts. 04/04/18 11:10 Reassessment Condition: Re-examined, Improving,but remains with symptoms - Critical Care Critical Care Minutes: 30 minutes - Lab Interpretations Lab Results: 04/04/18 08:00 04/04/18 08:00 Lab Results 04/04/18 09:30: pCO2 43, pO2 68.0 L, HCO3 27.9, ABG pH 7.42, ABG Total CO2 29.2 H, ABG O2 Saturation 96.5, ABG O2 Content 14.7 L, ABG Base Excess 3.0, ABG Hemoglobin 11.1 L, ABG Carboxyhemoglobin 1.9 H, POC ABG HHb (Measured) 3.4, ABG Methemoglobin 0.9, ABG O2 Capacity 15.2 L, Hgb O2 Saturation 93.8 L, FiO2 32.0 04/04/18 09:00: Magnesium 2.2, Triglycerides 86, Cholesterol 189, LDL Cholesterol Direct 86, HDL Cholesterol 65 H 04/04/18 09:00: Alcohol, Quantitative < 10 04/04/18 09:00: NT-Pro-B Natriuret Pep 499 H 04/04/18 08:00: Sodium 137, Potassium 4.6, Chloride 101, Carbon Dioxide 27, Anion Gap 13, BUN 17, Creatinine 0.7 L, Est GFR ( Amer) > 60, Est GFR ( Non-Af Amer) > 60, Random Glucose 79, Calcium 9.5, Total Bilirubin 0.3, AST 31, ALT 21, Alkaline Phosphatase 54, Lactate Dehydrogenase 395, Total Creatine Kinase 142, Troponin I 0.19 H* D, Total Protein 6.9, Albumin 4.3, Globulin 2.6, Albumin/Globulin Ratio 1.7 04/04/18 08:00: PT 10.5, INR 0.91, APTT 25.8 04/04/18 08:00: WBC 8.5, RBC 3.72, Hgb 12.1 L, Hct 34.8 L, MCV 93.5, MCH 32.5, MCHC 34.8, RDW 14.1, Plt Count 259, MPV 8.4, Gran % 56.7, Lymph % (Auto) 31.0, [place] % (Auto) 12.1 H, Eos % (Auto) 0.2 L, Baso % (Auto) 0.0, Gran # 4.79, Lymph # (Auto) 2.6, [place] # (Auto) 1.0 H, Eos # (Auto) 0.0, Baso # (Auto) 0.00 - RAD Interpretation Narrative RAD Interpretations (Text): 04/04/18 09:22 Procedure: Chest X-ray Impression: No active disease. Dictator: Chico Tobias MD Radiology Orders: 04/04/18 08:59 CHEST PORTABLE [RAD] Stat Quality Control Operator: Radiologist - EKG Interpretation EKG Interpretation (Text): 04/04/18 11:09 EKG at 0903 normal sinus rhythm rate of [address] elevations Interpreted by ED Physician: Yes Type: 12 lead EKG - Medication Orders Current Medication Orders: Albuterol/Ipratropium (Duoneb 3 Mg/0.5 Mg (3 Ml) Ud) 3 ml IH [id number] MAHSA Stop: 04/05/18 08:00 Albuterol/Ipratropium (Duoneb 3 Mg/0.5 Mg (3 Ml) Ud) 3 ml IH [id number] MAHSA Albuterol/Ipratropium (Duoneb 3 Mg/0.5 Mg (3 Ml) Ud) 3 ml IH Q2H PRN PRN Reason: Shortness of Breath Aspirin (Aspirin Chewable) 81 mg PO DAILY MAHSA Carvedilol (Coreg) 3.125 mg PO 0800,1800 MAHSA Clopidogrel Bisulfate (Plavix) 75 mg PO DAILY MAHSA Folic Acid (Folic Acid) 1 mg PO DAILY MAHSA Last Admin: 04/04/18 10:57 Dose: 1 mg Azithromycin 250 mg/ Sodium (Chloride) 250 mls @ 167 mls/hr IVPB DAILY MAHSA PRN Reason: Protocol Last Admin: 04/04/18 10:57 Dose: 167 mls/hr eMAR Start Stop Document 04/04/18 10:57 [email or web address] (Rec: 04/04/18 10:57 [email or web address] [id number]) Intravenous Solution Start Date 04/04/18 Start Time 10:57 Methylprednisolone (Solu-Medrol) 40 mg IVP Q12 MAHSA Last Admin: 04/04/18 10:57 Dose: 40 mg IVP Administration Document 04/04/18 10:57 [email or web address] (Rec: 04/04/18 10:57 [email or web address] [id number]) Charges for Administration # of IVP Administrations 1 Thiamine HCl (Vitamin B1 Tab) 100 mg PO DAILY MAHSA Last Admin: 04/04/18 11:06 Dose: 100 mg Discontinued Medications Albuterol/Ipratropium (Duoneb 3 Mg/0.5 Mg (3 Ml) Ud) 3 ml IH STAT STA Stop: 04/04/18 07:41 Last Admin: 04/04/18 07:43 Dose: 3 ml Aspirin (Aspirin) 325 mg PO STAT ONE Stop: 04/04/18 09:01 Last Admin: 04/04/18 09:15 Dose: 325 mg Clopidogrel Bisulfate (Plavix) 300 mg PO STAT STA Stop: 04/04/18 09:43 Last Admin: 04/04/18 09:52 Dose: 300 mg Enoxaparin Sodium (Lovenox) 70 mg SC Q12H STA PRN Reason: Protocol Stop: 04/04/18 09:26 Last Admin: 04/04/18 09:30 Dose: 70 mg Subcutaneous Administrations Document 04/04/18 09:30 [email or web address] (Rec: 04/04/18 09:31 [email or web address] [id number]) Injection Site MAR Injection Site Left Abdomen Charges for Administration # of Subcutaneous Administrations 1 Methylprednisolone (Solu-Medrol) 125 mg IVP STAT STA Stop: 04/04/18 07:41 Last Admin: 04/04/18 07:58 Dose: 125 mg IVP Administration Document 04/04/18 07:58 [email or web address] (Rec: 04/04/18 07:58 [email or web address] [id number]) Charges for Administration # of IVP Administrations 1 Metoprolol Tartrate (Lopressor) 25 mg PO STAT STA Stop: 04/04/18 09:03 Last Admin: 04/04/18 09:11 Dose: 25 mg MAR Pulse and Blood Pressure Document 04/04/18 09:11 [email or web address] (Rec: 04/04/18 09:14 [email or web address] [id number]) Pulse Pulse Rate (60-90 beats/min) 103 Blood Pressure Blood Pressure (100/60-150/90 mm Hg) 163/90 Morphine Sulfate (Morphine) 2 mg IVP STAT STA Stop: 04/04/18 08:36 Last Admin: 04/04/18 09:05 Dose: 2 mg MAR Pain Assessment Document 04/04/18 09:05 [email or web address] (Rec: 04/04/18 09:05 [facility] [id number]) Pain Reassessment Is this a pain reassessment? No Sleep Is patient sleeping during reassessment? No Presence of Pain Presence of Pain Yes Pain Scale Used Pain Scale Used Numeric Location Pain Location Body Site Chest Description Description Constant Intensity of Pain at present 5 Pain Behavior Facial Grimacing Aggravating Factors Changing Position Alleviating Factors/Management Position Change Techniques Alleviating Factors Medication IVP Administration Document 04/04/18 09:05 [email or web address] (Rec: 04/04/18 09:05 [facility] [id number]) Charges for Administration # of IVP Administrations 1 Nitroglycerin (Nitro-Bid 2% Oint) 1 ea TOP ONCE STA Stop: 04/04/18 09:17 Last Admin: 04/04/18 09:30 Dose: 1 ea - Scribe Statement The provider has reviewed the documentation as recorded by the Arina Kessler All medical record entries made by the Sarahibinga were at my direction and personally dictated by me. I have reviewed the chart and agree that the record accurately reflects my personal performance of the history, physical exam, medical decision making, and the department course for this patient. I have also personally directed, reviewed, and agree with the discharge instructions and disposition. Disposition/Present on Arrival - Present on Arrival Any Indicators Present on Arrival: No History of DVT/PE: No History of Uncontrolled Diabetes: No Urinary Catheter: No History of Decub. Ulcer: No History Surgical Site Infection Following: None - Disposition Have Diagnosis and Disposition been Completed?: Yes Diagnosis: Myocardial infarction, Chest pain, Acute exacerbation of COPD with asthma Disposition: HOSPITALIZED Disposition Time: 09:30 Patient Plan: Admission, Telemetry Patient Problems: Current Active Problems Problem Status Onset Acute exacerbation of COPD with asthma Acute Chest pain Acute Myocardial infarction Acute Condition: SERIOUS
[2018-04-04 08:17] LABS: INR 0.91; PARTIAL THROMBOPLASTIN TIME 25.8 Seconds (25.1-36.5); PROTHROMBIN TIME 10.5 SECONDS (9.4-12.5)
[2018-04-04 08:21] LABS: ALB/GLOB RATIO 1.7 (1.1-1.8); ALBUMIN 4.3 g/dL (3.0-4.8); ALT/SGPT 21 U/L (7-56); AST/SGOT 31 U/L (17-59); BLOOD UREA NITROGEN 17 mg/dL (7-21); CALCIUM 9.5 mg/dL (8.4-10.5); GFR NON-AFRICAN AMERICAN > 60
[2018-04-04] MEDS ORDERED: Morphine 2 mg/ml ISec IVP STA (08:35)
[2018-04-04 08:55] LABS: TROPONIN I 0.19 ng/mL
[2018-04-04] MEDS ORDERED: Nitroglycerin 2% Ointment Foilpak UD TOP ONE (09:11)
[2018-04-04] MEDS ORDERED: Nitroglycerin 2% Ointment Foilpak UD TOP STA (09:16)
--- NOTE | 2018-04-04 09:17 | RAD ---
Date of service: 04/04/2018 HISTORY: chest pain COMPARISON: 04/01/2018 FINDINGS: LUNGS: No active pulmonary disease. PLEURA: No significant pleural effusion identified, no pneumothorax apparent. CARDIOVASCULAR: Normal. OSSEOUS STRUCTURES: Sternal wires VISUALIZED UPPER ABDOMEN: Normal. OTHER FINDINGS: None. IMPRESSION: No active disease.
[2018-04-04] MEDS ORDERED: Enoxaparin 100 mg Syringe SC STA (09:18)
[2018-04-04] MEDS ORDERED: Enoxaparin 80 mg Syringe SC STA (09:25)
[2018-04-04 09:45] LABS: ARTERIAL BLOOD GAS HCO3 27.9 mmol/L (21-28); ARTERIAL BLOOD GAS HEMOGLOBIN 11.1 g/dL (11.7-17.4); ARTERIAL BLOOD GAS O2 CAPACITY 15.2 mL/dl (16-24); ARTERIAL BLOOD GAS O2 CONTENT 14.7 ML/dl (15-23); ARTERIAL BLOOD GAS O2 SAT 96.5 % (95-98); ARTERIAL BLOOD GAS PCO2 43 mm/Hg (35-45); ARTERIAL BLOOD GAS PH 7.42 (7.35-7.45); ARTERIAL BLOOD GAS TCO2 29.2 mmol.L (22-28)
[2018-04-04] MEDS ORDERED: Albuterol-Ipratrop 3 mg / 0.5 (3 ml) UD IH PRN (10:02)
[2018-04-04] MEDS: MethylPREDNISolone 40 mg Vial IVP SCH ×2 (10:57→22:03)
[2018-04-04] MEDS: Azithromycin 250 MG in Sodium Chloride 0.9% 250 ML IVPB SCH (10:57)
--- NOTE | 2018-04-04 11:54 | CP.PCM.CON ---
<JanieMaggi - Last Filed: 04/04/18 11:55> History of Present Illness - History of Present Illness History of Present Illness: Maggi Lima, PGY2, ICU Consult Note for Dr Jones: CC: chest pain 63 year old male, with PMH HTN, COPD, TIA, CAD with stents, CABG, arthritis, presents to ED for substernal chest pain that started this morning. Patient is a poor historian, Patient describes it as sharp, reports mild radiation of pain to left arm, mild nausea. Denies fevers, chills, vomiting, abdominal pain, urinary symptoms, leg swelling. Patient also reports increased wheezing and sob , attributing to weather changes and daily tobacco use. Patient reports mild productive sputum, denies hemoptysis, night sweats, weight loss. In ED, patient hemodynamically stable. troponin elevated. nitro patch relieved pain. Given ASA 325 mg, plavix 300 mg, metoprolol 25 mg, lovenox 70 mg, solumedrol 125 mg IV, duonebs. Currently, patient reports minimal chest pain, denies sob, states that his breathing is better. ABG shows mild hypoxia. 12 points ROS reviewed with pertinent positives as above. PMD: Lauren Maria PMH: HTN, COPD, TIA, CAD with stents, arthritis PSH: Carotid enarterectomy, cholecystectomy SocH: used to soke 2 ppd for 30 years, now 1 ppd, uses marijuana, heroin. alcohol abuse MEDS: carvidolol, atorvastatin, asa, meloxicam, ventolin, albuterol, benzonate, B12, folate, omeprazole ALL: Shellfish derived substances, Sulfa Review of Systems - Review of Systems All systems: reviewed and no additional remarkable complaints except Review of Systems: as per HPI Past Patient History - Infectious Disease Hx of Infectious Diseases: None - Tetanus Immunizations Tetanus Immunization: Unknown - Past Medical History & Family History Past Medical History?: Yes - Past Social History Smoking Status: Current Some Days Smoker - CARDIAC Hx Cardiac Disorders: Yes (CAD,CABG) Hx Angina: Yes Hx Cardia Arrhythmia: Yes Hx Hypertension: Yes Hx Peripheral Vascular Disease: Yes Other/Comment: Carotid enarterectomy - PULMONARY Hx Respiratory Disorders: Yes Hx Asthma: Yes Hx Chronic Obstructive Pulmonary Disease (COPD): Yes Hx Emphysema: Yes - NEUROLOGICAL Hx Neurological Disorder: Yes Hx Dizziness: Yes Hx Migraine: Yes Hx Transient Ischemic Attacks (TIA): Yes - HEENT Hx HEENT Problems: Yes Hx Cataracts: Yes - RENAL Hx Chronic Kidney Disease: Yes Hx Kidney Stones: Yes - ENDOCRINE/METABOLIC Hx Endocrine Disorders: No - HEMATOLOGICAL/ONCOLOGICAL Hx Blood Disorders: No - INTEGUMENTARY Hx Dermatological Problems: Yes Other/Comment: VARICOSE 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 - MUSCULOSKELETAL/RHEUMATOLOGICAL Hx Musculoskeletal Disorders: Yes Hx Arthritis: Yes Hx Degenerative Joint Disease: Yes Hx Falls: Yes Hx Fractures: Yes (RIB) - GASTROINTESTINAL Hx Gastrointestinal Disorders: Yes (COLITIS,DIVERTICULOSIS) Hx Gastroesophageal Reflux: Yes - GENITOURINARY/GYNECOLOGICAL Hx Genitourinary Disorders: Yes Hx Urinary Tract Infection: Yes - PSYCHIATRIC Hx Psychophysiologic Disorder: Yes (USED TO DRINK ALCOHOL.H/O ETOH ABUSE. QUIT.) Hx Anxiety: Yes Hx Substance Use: No (DENIES) - SURGICAL HISTORY Hx Cardiac Catheterization: Yes (CORONARY STENT) Hx Cholecystectomy: Yes Hx Coronary Stent: Yes Hx Open Heart Surgery: Yes (triple bypass) - ANESTHESIA Hx Anesthesia: Yes Hx Anesthesia Reactions: No Hx Malignant Hyperthermia: No Meds Allergies/Adverse Reactions: Allergies Allergy/AdvReac Type Severity Reaction Status Date / Time shellfish derived Allergy ANAPHYLAXIS Verified 04/03/18 16:39 Sulfa (Sulfonamide Allergy RASH Verified 04/03/18 16:39 Antibiotics) - Medications Medications: Current Medications Albuterol/Ipratropium (Duoneb 3 Mg/0.5 Mg (3 Ml) Ud) 3 ml IH [id number] NINFA Stop: 04/05/18 08:00 Albuterol/Ipratropium (Duoneb 3 Mg/0.5 Mg (3 Ml) Ud) 3 ml IH [id number] NINFA Albuterol/Ipratropium (Duoneb 3 Mg/0.5 Mg (3 Ml) Ud) 3 ml IH Q2H PRN PRN Reason: Shortness of Breath Aspirin (Aspirin Chewable) 81 mg PO DAILY [facility] Carvedilol (Coreg) 3.125 mg PO 0800,1800 [facility] Clopidogrel Bisulfate (Plavix) 75 mg PO DAILY [facility] Folic Acid (Folic Acid) 1 mg PO DAILY [facility] Last Admin: 04/04/18 10:57 Dose: 1 mg Azithromycin 250 mg/ Sodium (Chloride) 250 mls @ 167 mls/hr IVPB DAILY [facility] PRN Reason: Protocol Last Admin: 04/04/18 10:57 Dose: 167 mls/hr Methylprednisolone (Solu-Medrol) 40 mg IVP Q12 [facility] Last Admin: 04/04/18 10:57 Dose: 40 mg Thiamine HCl (Vitamin B1 Tab) 100 mg PO DAILY [facility] Last Admin: 04/04/18 11:06 Dose: 100 mg Physical Exam - Constitutional Appears: Non-toxic, Older Than Stated Age, Chronically Ill - Head Exam Head Exam: ATRAUMATIC, NORMOCEPHALIC - Eye Exam Eye Exam: EOMI, PERRL. absent: Conjunctival injection, Nystagmus, Scleral icterus Pupil Exam: NORMAL ACCOMODATION, PERRL. absent: Irregular, Miosis, Mydriatic, Unequal - ENT Exam ENT Exam: Mucous Membranes Moist - Respiratory Exam Respiratory Exam: Wheezes (diffuse wheezing bilaterally). absent: Accessory Muscle Use, Chest Wall Tenderness, Decreased Breath Sounds, Rales, Rhonchi, Stridor - Cardiovascular Exam Cardiovascular Exam: RRR, +S1, +S2. absent: Systolic Murmur - GI/Abdominal Exam GI & Abdominal Exam: Normal Bowel Sounds, Soft. absent: Distended, Firm, Mass, Organomegaly, Rigid, Tenderness - Extremities Exam Extremities exam: Positive for: normal inspection. Negative for: calf tenderness, pedal edema - Back Exam Back exam: NORMAL INSPECTION - Neurological Exam Neurological exam: Alert, Oriented x3 - Psychiatric Exam Psychiatric exam: Normal Affect, Normal Mood - Skin Skin Exam: Dry, Normal Color, Warm Results - Vital Signs Recent Vital Signs: Last Vital Signs Temp 98.1 F 04/04/18 07:27 Pulse 86 04/04/18 09:48 Resp 18 04/04/18 09:48 BP 144/72 04/04/18 09:48 Pulse Ox 95 04/04/18 09:48 - Labs Result Diagrams: 04/04/18 08:00 04/04/18 08:00 Assessment & Plan - Assessment and Plan (Free Text) Assessment: 63 year old male, with PMH HTN, COPD, TIA, CAD with stents, CABG, arthritis, presents for sob, chest pain, found to have NSTEMI, COPD exacerbation: - Recommend ASA, Plavix, BB, EVE-i, statin - O2 and morphine prn - nitro as needed - serial trops and EKG - F/u Cardiology recommendations for cardiac cath - IV steroids, duonebs ninfa and prn, pulmicort - recommend CIWA protocol. Ativan prn. MVT, thiamine, folic acid supplements - nicotine patch - Patient saturating well on NC, BP and HR stable. - Monitor on Telemetry. Case seen and discussed with Dr Jones. <Erik Jones - Last Filed: 04/04/18 12:31> Meds - Medications Medications: Current Medications Albuterol/Ipratropium (Duoneb 3 Mg/0.5 Mg (3 Ml) Ud) 3 ml IH [id number] NINFA Stop: 04/05/18 08:00 Albuterol/Ipratropium (Duoneb 3 Mg/0.5 Mg (3 Ml) Ud) 3 ml IH [id number] NINFA Albuterol/Ipratropium (Duoneb 3 Mg/0.5 Mg (3 Ml) Ud) 3 ml IH Q2H PRN PRN Reason: Shortness of Breath Aspirin (Aspirin Chewable) 81 mg PO DAILY [facility] Carvedilol (Coreg) 3.125 mg PO 0800,1800 [facility] Clopidogrel Bisulfate (Plavix) 75 mg PO DAILY [facility] Folic Acid (Folic Acid) 1 mg PO DAILY [facility] Last Admin: 04/04/18 10:57 Dose: 1 mg Azithromycin 250 mg/ Sodium (Chloride) 250 mls @ 167 mls/hr IVPB DAILY [facility] PRN Reason: Protocol Last Admin: 04/04/18 10:57 Dose: 167 mls/hr Methylprednisolone (Solu-Medrol) 40 mg IVP Q12 [facility] Last Admin: 04/04/18 10:57 Dose: 40 mg Thiamine HCl (Vitamin B1 Tab) 100 mg PO DAILY [facility] Last Admin: 04/04/18 11:06 Dose: 100 mg Results - Vital Signs Recent Vital Signs: Last Vital Signs Temp 97.9 F 04/04/18 11:44 Pulse 77 04/04/18 11:44 Resp 18 04/04/18 11:44 BP 139/66 04/04/18 11:44 Pulse Ox 97 04/04/18 11:44 - Labs Result Diagrams: 04/04/18 08:00 04/04/18 08:00 Assessment & Plan - Assessment and Plan (Free Text) Assessment: Patient seen and examined on rounds with resident, agree with note with following additions/exceptions: Patient is 63yo male with PMHx of EtOH abuse, non compliance, HTN, COPD, TIA, CAD s/p CABG, presented with CP, COPD exacerbation. Currently afebrile, HD stable, comfortable in NAD, complaining of midl chest discomfort. Labs, imaging, chart reviewed. CXR with no focal consolidation. On exam good air movement, with end exp wheezing. COPD exacerbation HTN SOB CP NSTEMI EtOh abuse Recommend: - supp o2 as needed, duonebs PRN, IS - Solumedrol 60mg IV q8hr - panculture, UCx, BCx, check Procal - ASA, Plavix, Statin - cardiology consult - repeat CE - Heparin drip - would hold off BB given COPD exacerbation - Nitro PRN - CIWA protocol - Thiamine, MVT, Folic Acid - GI ppx - DVT ppx - Admit to tele
[2018-04-04 14:23] VITALS: BMI 20.9
[2018-04-04] MEDS ORDERED: Pneumococcal 23-Valent Vaccine IM ONE (14:24)
--- NOTE | 2018-04-04 14:38 | CP.PCM.HP ---
<Jeovanny Lin - Last Filed: 04/04/18 14:25> History of Present Illness - History of Present Illness History of Present Illness: Hospitalist Service H&P Jeovanny Lin, PGY-3 IM CC: shortness of breath/chest pain HPI: This is a 63 yo M with PMH of HTN, COPD, TIA, CAD with stents, CABG, EtOH abuse, and active tobacco abuse who re-presents to the ED complaining of shortness of breath for last several hours and chest pain. As per ED, he was discharged by medical team yesterday, was brought back to the ED by EMS overnight for public intoxication, sobered up and was discharged from the ED, and returned several hours later due to shortness of breath. Pt admits to smoking up to 1/3rd of a pack of cigarettes after leaving the ED, then tried to walk somewhere (won't be more specific), and got short of breath after only 2 blocks, so he returned to the ED. As per ED attending, pt continued to complain of chest pain despite minimally sinus tachy EKG and despite receiving 1x Duonebs and 1x Solumedrol 125mg IVP, so a trop was obtained and was positive at 0.19. At time of exam, patient is awake, alert, tremulous at rest. Oriented x3 but poor insight into condition and causes of symptoms, including his alcohol and tobacco use. Fails to understand that breathing issues can be indicative of cardiac issues, thinks we are ignoring his breathing and instead checking his heart; idea persists despite repeated explanation regarding inter-relatedness of both issues. Denies radiation of chest pain, chest pain present at time of exam (but recently s/p Nitro), nausea, emesis, diarrhea, melena, focal weakness , productive cough, or syncope. Has no recollection of drinking, or how he ended up in the ED overnight. Faint but appreciable end-expiratory wheezing throughout interview and exam. All other ROS in 12-system review negative. PMH: as above PSH: Carotid enarterectomy, cholecystectomy Soc Hx: used to smoke 2 ppd for 30 years, now 1 ppd, reports 1/3 pack prior to return to ED, denies illicits but prior charting notes his admission to marijuana & heroin, admits alcohol abuse (reports drinking 1/2 pint of liquor, but unable to specify what kind). MEDS: carvidolol, atorvastatin, asa, meloxicam, ventolin, albuterol, benzonate, B12, folate, omeprazole; compliance ALL: Shellfish derived substances, Sulfa PMD: Dr. Damon Present on Admission - Present on Admission Any Indicators Present on Admission: No History of DVT/PE: No History of Uncontrolled Diabetes: No Urinary Catheter: No Review of Systems - Review of Systems All systems: reviewed and no additional remarkable complaints except (as per HPI ) Past Patient History - Infectious Disease Hx of Infectious Diseases: None - Tetanus Immunizations Tetanus Immunization: Unknown - Past Medical History & Family History Past Medical History?: Yes - Past Social History Smoking Status: Current Some Days Smoker - CARDIAC Hx Cardiac Disorders: Yes (CAD,CABG) Hx Angina: Yes Hx Cardia Arrhythmia: Yes Hx Hypertension: Yes Hx Peripheral Vascular Disease: Yes Other/Comment: Carotid enarterectomy - PULMONARY Hx Respiratory Disorders: Yes Hx Asthma: Yes Hx Chronic Obstructive Pulmonary Disease (COPD): Yes Hx Emphysema: Yes - NEUROLOGICAL Hx Neurological Disorder: Yes Hx Dizziness: Yes Hx Migraine: Yes Hx Transient Ischemic Attacks (TIA): Yes - HEENT Hx HEENT Problems: Yes Hx Cataracts: Yes - RENAL Hx Chronic Kidney Disease: Yes Hx Kidney Stones: Yes - ENDOCRINE/METABOLIC Hx Endocrine Disorders: No - HEMATOLOGICAL/ONCOLOGICAL Hx Blood Disorders: No - INTEGUMENTARY Hx Dermatological Problems: Yes Other/Comment: VARICOSE 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 - MUSCULOSKELETAL/RHEUMATOLOGICAL Hx Musculoskeletal Disorders: Yes Hx Arthritis: Yes Hx Degenerative Joint Disease: Yes Hx Falls: Yes Hx Fractures: Yes (RIB) - GASTROINTESTINAL Hx Gastrointestinal Disorders: Yes (COLITIS,DIVERTICULOSIS) Hx Gastroesophageal Reflux: Yes - GENITOURINARY/GYNECOLOGICAL Hx Genitourinary Disorders: Yes Hx Urinary Tract Infection: Yes - PSYCHIATRIC Hx Psychophysiologic Disorder: Yes (USED TO DRINK ALCOHOL.H/O ETOH ABUSE. QUIT.) Hx Anxiety: Yes Hx Substance Use: No (DENIES) - SURGICAL HISTORY Hx Cardiac Catheterization: Yes (CORONARY STENT) Hx Cholecystectomy: Yes Hx Coronary Stent: Yes Hx Open Heart Surgery: Yes (triple bypass) - ANESTHESIA Hx Anesthesia: Yes Hx Anesthesia Reactions: No Hx Malignant Hyperthermia: No Meds Allergies/Adverse Reactions: Allergies Allergy/AdvReac Type Severity Reaction Status Date / Time shellfish derived Allergy ANAPHYLAXIS Verified 04/04/18 14:00 Sulfa (Sulfonamide Allergy RASH Verified 04/04/18 14:00 Antibiotics) Physical Exam - Constitutional Appears: Non-toxic, No Acute Distress, Unkempt, Chronically Ill, Other ( generally tremulous) - Head Exam Head Exam: ATRAUMATIC, NORMAL INSPECTION - Eye Exam Eye Exam: EOMI, Normal appearance. absent: Conjunctival injection, Scleral icterus - ENT Exam ENT Exam: Mucous Membranes Moist. absent: Mucous Membranes Dry - Neck Exam Neck exam: Positive for: Full Rom. Negative for: Thyromegaly - Respiratory Exam Respiratory Exam: Decreased Breath Sounds (moderately decreased breath sounds all dong), Wheezes (end-expiratory wheezing diffusely but only mild-moderate intensity), NORMAL BREATHING PATTERN. absent: Chest Wall Tenderness, Clear to Auscultation Bilateral, Rales, Rhonchi, Stridor - Cardiovascular Exam Cardiovascular Exam: Tachycardia, REGULAR RHYTHM, +S1, +S2. absent: Irregular Rhythm, JVD Additional comments: intermittently tachycardic during exam, but regular rhythm - GI/Abdominal Exam GI & Abdominal Exam: Normal Bowel Sounds, Soft. absent: Diminished Bowel Sounds , Distended, Firm, Hyperactive Bowel Sounds, Hypoactive Bowel Sounds, Rigid, Tenderness - Extremities Exam Extremities exam: Positive for: normal capillary refill, pedal pulses present (+ 1 dorsalis pedis bilaterally). Negative for: calf tenderness, pedal edema, tenderness - Neurological Exam Neurological exam: Alert Additional comments: awake and alert, oriented to self/location/time, moving all extremities spontaneously and on commands, tremulous at rest - Psychiatric Exam Additional comments: flat mood and affect, poor insight - Skin Skin Exam: Dry, Intact, Normal Color, Warm Results - Vital Signs Recent Vital Signs: Last Vital Signs Temp 97.9 F 04/04/18 14:00 Pulse 77 04/04/18 14:00 Resp 18 04/04/18 14:00 BP 139/66 04/04/18 14:00 Pulse Ox 97 04/04/18 11:44 - Labs Result Diagrams: 04/04/18 08:00 04/04/18 08:00 Assessment & Plan - Assessment and Plan (Free Text) Assessment: This is a 63 yo M with PMH of HTN, COPD, TIA, CAD with stents, CABG, EtOH abuse , and active tobacco abuse who re-presents to the ED complaining of shortness of breath for last several hours and chest pain. Found to have a trop of 0.19 in the ED, which in setting of his extensive cardiac hx is concerning for ACS. Also undergoing tx for COPD exacerbation. Plan: HTN, COPD, TIA, CAD with stents, CABG, EtOH abuse, and active tobacco 1) Chest pain/shortness of breath -ACS vs COPD exacerbation vs deconditioning, likely multifactorial -Trop 0.19 in ED, trending 2 more -Initial EKG in ED only notable for sinus tachy, repeat EKG notable for NSR at rate 100; neither with any ST-T wave changes concerning for ACS -Cardio (Dr. Verdin) consulted, ED discussed with him; pt given loading doses of ASA and Plavix in ED, pending for cardiac cath today -S/p Duonebs x1 and Solumedrol 125mg IVP x1; will continue Duonebs q4 ninfa today (downgrade to q6 tomorrow), q2 prn, and solumedrol 40mg IVP q12 -continue daily ASA 81mg and Plavix 75mg, starting tomorrow (got loading doses of both in ED today), s/p 1 dose therapeutic Lovenox as per Cardio -Got metoprolol 25mg x1 in ED, restarting home BID coreg -Continue IV Zithromax for COPD exacerbation coverage (pt was discharged on PO zithro yesterday) -Echo ordered, f/u -NPO pending cardiac cath 2) Alcohol abuse -level in ED overnight and on re-presentation < 10 -continue PO thiamine, folic acid, and multivitamin patient discharged on -appears mildly tremulous at rest, but does not appear in DTs -PRN Ativan 1q6 IV for withdrawal sx -encourage cessation of alcohol use 3) Tobacco abuse -patient reports working on smoking, but refusing nicotine patch -encourage cessation of tobacco use 4) HTN -continue home coreg -BP currently controlled in 130's/90's, but if worsens, would consider ACEi/ARB given cardiac hx Dispo: Telemetry, pending Cardiac cath, pending Echo, trending trops prior to cath, f/u Cath results and Cardio's recs FEN: NPO pending cath Access: Peripheral IVs Consults: Cardio Ppx: Protonix for GI, SCDs for DVT Patient seen, reviewed, and discussed with attending, Dr. Dickerson Decision To Admit - Pt Status Changed To: Hospital Disposition Of: Inpatient Admission - Admit Certification Admit to Inpatient:: After my assessment, the patient will require hospitalization for at least two midnights. This is because of the severity of symptoms shown, intensity of services needed, and/or the medical risk in this patient being treated as an outpatient. - . Bed Request Type: Telemetry <Ministerio Dickerson - Last Filed: 04/04/18 19:20> Results - Vital Signs Recent Vital Signs: Last Vital Signs Temp 97.9 F 04/04/18 14:00 Pulse 64 04/04/18 18:09 Resp 18 04/04/18 14:00 BP 118/60 04/04/18 18:09 Pulse Ox 97 04/04/18 11:44 - Labs Result Diagrams: 04/04/18 08:00 04/04/18 08:00 Attending/Attestation - Attestation I have personally seen and examined this patient.: Yes I have fully participated in the care of the patient.: Yes I have reviewed all pertinent clinical information: Yes Notes (Text): 04/04/18 19:16 63 year old male with past medical history of COPD, CAD s/p stents s/p CABG, alcohol and tobacco use who presents with complaint of chest pain and shortness of breath. He was discharged yesterday after treated from COPD exacerbation. ACS was ruled out with serially negative cardiac enzymes. After discharge he drank alcohol and smoked cigarettes, returning first to ER for alcohol intoxication and then again for chest pain / shortness of breath. Today he has troponin of 0.19. Given lovenox, aspirin, plavis for possible NSTEMI. Cardiology evaluation requested for possible cardiac cath. IV steroids and duonebs ordered for COPD exacerbation. He was counselled on alcohol and smoking cessation. Ministerio Dickerson MD Hospitalist.
[2018-04-04] MEDS ORDERED: Famotidine 20mg/50ml 20 MG/50 ML BAG IVPB ONE (15:21)
[2018-04-04] MEDS ORDERED: DiphenhydrAMINE 50 mg/ml Inj ONE (15:21)
[2018-04-04] MEDS ORDERED: Lidocaine PF 2% (5 ml) Inj (For Cardiac Arrhy) ONE (15:41)
[2018-04-04] MEDS: Albuterol-Ipratrop 3 mg / 0.5 (3 ml) UD IH SCH ×4 (15:42→23:51)
[2018-04-04] MEDS ORDERED: Iodixanol 320 MG/ML 200 ML BOTTLE IV ONE (15:42)
[2018-04-04] MEDS ORDERED: Midazolam 2 MG/2 ML VIAL ONE (15:55)
[2018-04-04] MEDS ORDERED: Eptifibatide 20 mg/10mL Inj IVP ONE (16:28)
[2018-04-04] MEDS ORDERED: Verapamil 2 ML ONE (16:31)
[2018-04-04] MEDS ORDERED: Sodium Chloride 0.9% 1,000 ML IV SCH (17:00)
--- NOTE | 2018-04-04 17:29 | CPOSTOP ---
DATE: 04/04/2018 CARDIOVASCULAR LAB POSTPROCEDURE NOTE DICTATING PHYSICIAN: Flor Verdin MD. SOCKET WELDER HELPER: Satish Still, astro technician. TYPE OF ANESTHESIA: Moderate conscious sedation. TOTAL DOSE GIVEN: 2 mg of Versed, 100 mcg of fentanyl given. PRE-PROCEDURE DIAGNOSES: Unstable angina, acute coronary syndrome, non-ST segment myocardial infarction, history of coronary artery disease, history of coronary artery bypass grafting. PROCEDURE PERFORMED: Left heart catheterization, left internal mammary artery injection, saphenous vein graft injection, and stent of saphenous vein graft to ramus. FINDINGS: [place] triple-vessel disease, high-grade stenosis SVG to RCA. FINAL DIAGNOSIS: Critical disease in saphenous vein graft to ramus. POST PROCEDURE CONDITION: Stable. VASCULAR ACCESS SITE: Right femoral artery. TOTAL RADIATION DOSE: 8723.2 milligray unit. TOTAL FLUOROSCOPY TIME: 13.5 minutes. Flor Verdin MD
--- NOTE | 2018-04-04 17:35 | CARD ---
APPROVED REPORT Date of service: 04/04/2018 EKG Measurement Heart [id number] <Conclusion> Normal sinus rhythm Normal ECG
--- NOTE | 2018-04-04 17:37 | CARD ---
APPROVED REPORT Date of service: 04/04/2018 EKG Measurement Heart [id number] <Conclusion> Sinus tachycardia Otherwise normal ECG
--- NOTE | 2018-04-04 17:42 | CARD ---
APPROVED REPORT Date of service: 04/04/2018 EKG Measurement Heart [id number] <Conclusion> Normal sinus rhythm Normal ECG
--- NOTE | 2018-04-05 03:16 | CON ---
DATE: 04/04/2018 CONSULT SERVICE CARDIOLOGY DICTATING PHYSICIAN: Flor Verdin MD REASON FOR CONSULTATION: Follow up cardiac evaluation, non-ST segment myocardial infarction, history of coronary artery disease, CABG, history of multiple stents in the past. BRIEF CLINICAL HISTORY: This is a 63-year-old male with a past medical history significant for coronary artery disease status post CABG, status post multiple OR, status post multiple PTCAs, admitted from [facility] who was discharged yesterday with complaint of chest pain after drinking alcohol. Initial troponin was 0.19. PAST MEDICAL HISTORY: Significant for multiple history of alcoholic intoxication, history of multiple admissions with chest pain. Past history significant for status post coronary artery disease, status post coronary artery angioplasty with multiple PTCAs with multiple MIs, history of coronary artery bypass surgery, ultimately the patient underwent open heart surgery in 2005, history of right carotid endarterectomy , history of active tobacco abuse, history of alcohol abuse. PAST SURGICAL HISTORY: Significant for coronary artery bypass surgery in 2005, history of cholecystectomy, history of inguinal hernia repair. PREVIOUS CARDIAC WORKUP: Patient has multiple catheterization and ultimately patient had a CABG, history of last echo 10/03/2015, ejection fraction normal, normal systolic pressure, RV systolic pressure 37. Mitral normal. Trace tricuspid regurgitation. Last stress test abnormal in 2017. SOCIAL HISTORY: Active tobacco abuse, active alcohol abuse. CURRENT MEDICATIONS: Patient at home taking isosorbide , nitroglycerin, carvedilol, Plavix 75 mg daily, azithromycin, aspirin, thiamine, multivitamin, folic acid, atorvastatin, albuterol. REVIEW OF SYSTEMS: As per HPI. PHYSICAL EXAMINATION: VITAL SIGNS: Temperature afebrile, heart rate 77, blood pressure 139/56. HEENT: PERRLA. Extraocular muscles intact. NECK: Supple. No carotid bruits or thyromegaly. CHEST: Clear to auscultation. HEART: S1 and S2 regular. ABDOMEN: Soft. EXTREMITIES: Clubbing and cyanosis negative. LABORATORY DATA: EKG shows normal sinus, T-inversion lateral lead. Blood workup: WBC 8.5, hemoglobin 12.2, hematocrit 34.8, platelet count 259. Chemistry shows sodium 135, potassium 4.6, chloride 101, carbon dioxide 27, anion gap of 13, BUN 17, creatinine 0.7. Troponin 0.19. IMPRESSION AND PLAN: A 63-year-old male with a past medical history significant for coronary artery status post coronary artery bypass graft, status post multiple stents, admitted with non-ST segment myocardial infarction, active tobacco abuse, active alcohol abuse, noncompliant with medications. Patient's last echo 02/22/2017 showed normal LV function, normal segmental wall motion, mid septum appears hypokinetic, RV systolic pressure of 36, calculated ejection fraction of 50% dated 02/22/2017. Admitted with unstable angina, having multiple episodes of coronary artery disease. Since the troponin is positive, patient is noncompliant, we will consider cardiac catheterization. We will lower the aspirin and Plavix. Further recommendation after cardiac catheterization. We will follow with you. Patient got a dose of Lovenox in the morning. We will follow with you. Flor Verdin MD
[2018-04-05] MEDS: Albuterol-Ipratrop 3 mg / 0.5 (3 ml) UD IH SCH ×5 (03:58→20:11)
[2018-04-05] MEDS ORDERED: Morphine 2 mg/ml ISec IM ONE (06:02)
[2018-04-05 07:48] LABS: GRAN # 4.78 (1.4-6.5); GRAN % 75.6 % (50.0-68.0); HEMOGLOBIN 11.5 g/dL (14.0-18.0); LYMPH # 0.7 (1.2-3.4); LYMPH % 10.3 % (22.0-35.0); MEAN CELL VOLUME 94.8 fl (80.0-105.0); MEAN CORPUSCULAR HEMOGLOBIN 31.7 pg (25.0-35.0); MEAN CORPUSCULAR HGB CONC 33.4 g/dl (31.0-37.0); MEAN PLATELET VOLUME 8.7 fl (7.0-11.0); MONO # 0.9 (0.1-0.6); MONO % 14.1 % (1.0-6.0); RBC 3.63 10^6/uL (3.5-6.1); WHITE BLOOD COUNT 6.3 10^3/ul (4.5-11.0)
[2018-04-05 07:52] LABS: BARBITURATES, UR NEGATIVE (NEGATIVE); BENZODIAZEPINES, UR POSITIVE (NEGATIVE); OPIATES, UR POSITIVE (NEGATIVE); PHENCYCLIDINE, UR NEGATIVE (NEGATIVE)
[2018-04-05 08:08] LABS: ALB/GLOB RATIO 1.7 (1.1-1.8); ALT/SGPT 23 U/L (7-56); AST/SGOT 33 U/L (17-59); BLOOD UREA NITROGEN 24 mg/dL (7-21); GFR NON-AFRICAN AMERICAN > 60
--- NOTE | 2018-04-05 09:31 | CARD ---
APPROVED REPORT Date of service: 04/05/2018 EKG Measurement Heart [id number] <Conclusion> Sinus rhythm with premature supraventricular complexes Otherwise normal ECG
[2018-04-05] MEDS: Azithromycin 250 MG in Sodium Chloride 0.9% 250 ML IVPB SCH (09:34)
[2018-04-05] MEDS: MethylPREDNISolone 40 mg Vial IVP SCH ×2 (09:46→21:41)
--- NOTE | 2018-04-05 20:35 | CP.PCM.PN ---
<Hudson Neville - Last Filed: 04/06/18 00:21> Subjective - Date & Time of Evaluation Date of Evaluation: 04/05/18 Time of Evaluation: 20:35 - Subjective Subjective: Internal Medicine Progress Note (Hospitalist): Romeo PGY2 Patient seen and assessed at bedside. No acute events noted overnight. Patient reports that his SOB and chest pain have improved but that they have not resolved. Currently he denies any fevers, chills, headache, abdominal pain, N/V/ D/C, changes in urine output and any new or worsening lower extremity pain. Objective - Vital Signs/Intake and Output Vital Signs (last 24 hours): Temp Pulse Resp BP Pulse Ox 98.3 F 59 L 18 132/63 98 04/05/18 18:00 04/05/18 18:00 04/05/18 18:00 04/05/18 18:00 04/05/18 18:00 Intake and Output: 04/05/18 04/06/18 18:59 06:59 Intake Total 490 1020 Output Total 1350 Balance 490 -330 - Medications Medications: Current Medications Acetaminophen (Tylenol 325mg Tab) 650 mg PO Q4H PRN PRN Reason: Pain, moderate (4-7) Last Admin: 04/05/18 20:00 Dose: 650 mg Albuterol/Ipratropium (Duoneb 3 Mg/0.5 Mg (3 Ml) Ud) 3 ml IH [id number] [facility] Last Admin: 04/05/18 20:11 Dose: Not Given Albuterol/Ipratropium (Duoneb 3 Mg/0.5 Mg (3 Ml) Ud) 3 ml IH Q2H PRN PRN Reason: Shortness of Breath Last Admin: 04/05/18 01:23 Dose: 3 ml Aspirin (Aspirin Chewable) 81 mg PO DAILY [facility] Last Admin: 04/05/18 09:35 Dose: 81 mg Carvedilol (Coreg) 3.125 mg PO 0800,1800 [facility] Last Admin: 04/05/18 17:12 Dose: 3.125 mg Clopidogrel Bisulfate (Plavix) 75 mg PO DAILY [facility] Last Admin: 04/05/18 09:35 Dose: 75 mg Folic Acid (Folic Acid) 1 mg PO DAILY [facility] Last Admin: 04/05/18 09:35 Dose: 1 mg Azithromycin 250 mg/ Sodium (Chloride) 250 mls @ 167 mls/hr IVPB DAILY [facility] PRN Reason: Protocol Last Admin: 04/05/18 09:34 Dose: 167 mls/hr Methylprednisolone (Solu-Medrol) 30 mg IVP Q12 [facility] Montelukast Sodium (Singulair) 10 mg PO DAILY [facility] Thiamine HCl (Vitamin B1 Tab) 100 mg PO DAILY [facility] Last Admin: 04/05/18 09:35 Dose: 100 mg - Labs Labs: 04/05/18 07:00 04/05/18 07:00 PT 10.5 SECONDS (9.4-12.5) 04/04/18 08:00 INR 0.91 04/04/18 08:00 APTT 25.8 Seconds (25.1-36.5) 04/04/18 08:00 - Constitutional Appears: Non-toxic, No Acute Distress - Head Exam Head Exam: ATRAUMATIC, NORMOCEPHALIC - Eye Exam Eye Exam: EOMI - ENT Exam ENT Exam: Mucous Membranes Moist - Neck Exam Neck Exam: Full ROM - Respiratory Exam Respiratory Exam: Wheezes (Diffuse end expiratory wheezing), NORMAL BREATHING PATTERN. absent: Accessory Muscle Use, Chest Wall Tenderness, Clear to Ausculation Bilateral, Prolonged Expiratory Phase, Respiratory Distress - Cardiovascular Exam Cardiovascular Exam: Tachycardia, REGULAR RHYTHM, +S1, +S2 - GI/Abdominal Exam GI & Abdominal Exam: Soft, Normal Bowel Sounds. absent: Tenderness - Extremities Exam Extremities Exam: Full ROM, Normal Capillary Refill - Neurological Exam Neurological Exam: Alert, Awake, Oriented x3 - Skin Skin Exam: Dry, Intact, Normal Color, Warm Assessment and Plan - Assessment and Plan (Free Text) Assessment: 63 year old male with past medical history significant for COPD, CAD s/p stents s/p CABG, alcohol and tobacco abuse who presented with chest pain and shortness of breath. Plan: 1. ACS: NSTEMI -S/P stent of saphenous vein graft to ramus -Repeat EKG this AM showed NSR -Continue ASA and Plavix -Echo pending -Cardiology consulted, all recommendations appreciated 2. COPD Exacerbation -Tapered IV Solumedrol to 30mg Q12 -Continue Duonebs Q6 [facility] and Q2 PRN -Continue Zithromax -Started home Singulair 3. History of Alcohol Abuse -Continue PO Folic Acid, Thiamine and MV -Encouraged cessation 4. History of HTN -Continue home Coreg 5. History of Tobacco Abuse -Encouraged cessation Diet: Heart Healthy GI Prophylaxis: Protonix DVT Prophylaxis: SCD's Patient seen and case discussed with attending, Dr. Dickerson. <Ministerio Dickerson - Last Filed: 04/06/18 06:59> Objective - Vital Signs/Intake and Output Vital Signs (last 24 hours): Temp Pulse Resp BP Pulse Ox 97.8 F 82 20 146/92 H 95 04/06/18 06:00 04/06/18 06:00 04/06/18 06:00 04/06/18 06:00 04/06/18 06:00 Intake and Output: 04/05/18 04/06/18 18:59 06:59 Intake Total 490 1660 Output Total 3550 Balance 490 -1890 - Medications Medications: Current Medications Acetaminophen (Tylenol 325mg Tab) 650 mg PO Q4H PRN PRN Reason: Pain, moderate (4-7) Last Admin: 04/06/18 06:19 Dose: 650 mg Albuterol/Ipratropium (Duoneb 3 Mg/0.5 Mg (3 Ml) Ud) 3 ml IH [id number] [facility] Last Admin: 04/06/18 02:02 Dose: Not Given Albuterol/Ipratropium (Duoneb 3 Mg/0.5 Mg (3 Ml) Ud) 3 ml IH Q2H PRN PRN Reason: Shortness of Breath Last Admin: 04/05/18 01:23 Dose: 3 ml Aspirin (Aspirin Chewable) 81 mg PO DAILY [facility] Last Admin: 04/05/18 09:35 Dose: 81 mg Carvedilol (Coreg) 3.125 mg PO 0800,1800 [facility] Last Admin: 04/05/18 17:12 Dose: 3.125 mg Clopidogrel Bisulfate (Plavix) 75 mg PO DAILY [facility] Last Admin: 04/05/18 09:35 Dose: 75 mg Folic Acid (Folic Acid) 1 mg PO DAILY [facility] Last Admin: 04/05/18 09:35 Dose: 1 mg Azithromycin 250 mg/ Sodium (Chloride) 250 mls @ 167 mls/hr IVPB DAILY [facility] PRN Reason: Protocol Last Admin: 04/05/18 09:34 Dose: 167 mls/hr Methylprednisolone (Solu-Medrol) 30 mg IVP Q12 [facility] Last Admin: 04/05/18 21:41 Dose: 30 mg Montelukast Sodium (Singulair) 10 mg PO DAILY [facility] Pantoprazole Sodium (Protonix Ec Tab) 40 mg PO 0600 [facility] Last Admin: 04/06/18 05:01 Dose: 40 mg Thiamine HCl (Vitamin B1 Tab) 100 mg PO DAILY [facility] Last Admin: 04/05/18 09:35 Dose: 100 mg - Labs Labs: 04/05/18 07:00 04/05/18 07:00 PT 10.5 SECONDS (9.4-12.5) 04/04/18 08:00 INR 0.91 04/04/18 08:00 APTT 25.8 Seconds (25.1-36.5) 04/04/18 08:00 Attending/Attestation - Attestation I have personally seen and examined this patient.: Yes I have fully participated in the care of the patient.: Yes I have reviewed all pertinent clinical information, including history, physical exam and plan: Yes Notes (Text): 04/05/18 63 year old male with past medical history of COPD, CAD s/p stents s/p CABG, alcohol and tobacco use who presented with complaint of chest pain and shortness of breath. He was discharged day prior after treated from COPD exacerbation. ACS was ruled out with serially negative cardiac enzymes. After discharge he drank alcohol and smoked cigarettes, returning first to ER for alcohol intoxication and then again for chest pain / shortness of breath. On admission he was found to have elevated troponin of 0.19, possible NSTEMI. He was given lovenox, aspirin, plavix. He is s/p cardiac cath and stent placement. He is on aspirin, plavix, coreg and lipitor. He is on tapering IV steroids, antibiotics and duonebs for COPD exacerbation. He was counselled on alcohol and smoking cessation. Ministerio Dickerson MD Hospitalist.
[2018-04-06] MEDS: Albuterol-Ipratrop 3 mg / 0.5 (3 ml) UD IH SCH ×4 (02:02→19:45)
[2018-04-06] MEDS: Pantoprazole 40 mg EC Tab PO SCH (05:01)
[2018-04-06] MEDS: Azithromycin 250 MG in Sodium Chloride 0.9% 250 ML IVPB SCH (09:25)
[2018-04-06] MEDS: MethylPREDNISolone 40 mg Vial IVP SCH ×2 (09:25→22:10)
--- NOTE | 2018-04-06 12:28 | CARD ---
APPROVED REPORT Date of service: 04/04/2018 Procedure(s) performed: Left Heart Catheterization BALLARD Angiogram SVG Angiogram PTCA with Stenting of SVG to Ramus intermedius HISTORY The patient is a 63 year-old male with a history of : previous SC (> 7 days), most recent EF: 66%. (EF Method: RADIONUCLIDE), chronic lung disease, previous diagnostic cath, tobacco history() : The patient is a current smoker , previous PCI (The PCI date was 02/25/2017), hypertension , previous CABG (The CABG date was 07/22/2006), dyslipidemia , cerebrovascular disease . INDICATION The indication(s) include : non-STEMI . CASE TECHNIQUE The patient was brought emergently to the Cardiac Catheterization Laboratory in a fasting state and was prepped and draped in a sterile manner. The right femoral groin was infiltrated with 2% Lidocaine subcutaneous anesthesia. A 6 Fr x 11 cm Diane sheath was inserted into the right femoral artery without difficulty. Coronary angiography was performed using coronary diagnostic catheters. The left coronary system was accessed and visualized with a Diagnostic , 6F JL4 CATH DXT 100 CM catheter. The right coronary system was accessed and visualized with a Diagnostic ,6F JR 4 CATH DXT 100 CM catheter. The left ventricle was accessed and visualized with a 6F PIGTAIL 145 CATH DXT 110 CM catheter. The left internal mammary artery was accessed and visualized with a Diagnostic ,6F JR 4 CATH DXT 100 CM catheter. The saphenous vein graft was accessed and visualized with a 6 Fr LCB catheter. Left ventricular/Aortic Valve gradient assessed on pullback. Left ventriculogram was performed in GERMAIN projection. Closure device was deployed with a 6 Fr Mynx without any complications. The patient tolerated the procedure well and there were no complications associated with the procedure. Vessel Analysis The patient's coronary anatomy is right dominant. The left main coronary artery is a medium size vessel with diffuse calcification noted throughout this vessel and without significant stenosis. The left main bifurcates to the left anterior descending and circumflex. The left anterior descending artery is a medium size vessel with diffuse calcification noted throughout this vessel and with significant stenosis. There is a 100% stenosis in the mid segment. The first diagonal branch is a medium size vessel with diffuse calcification noted throughout this vessel and without significant stenosis. The circumflex artery is a medium size vessel with diffuse calcification noted throughout this vessel and with significant stenosis. The first obtuse marginal branch is a medium size vessel with diffuse calcification noted throughout this vessel and with significant stenosis. There is a 100% stenosis in the proximal segment. The ramus intermedius artery is a medium size vessel with diffuse calcification noted throughout this vessel and with significant stenosis. There is a 100% stenosis in the proximal segment. The right coronary artery is a large size vessel with diffuse calcification noted throughout this vessel and with significant stenosis. There is a 100% stenosis in the mid segment. The left internal mammary artery to the mid left anterior descending artery segment is patent . The saphenous vein graft to the distal right coronary artery is patent . The saphenous vein graft to the first obtuse marginal branch segment is patent . The saphenous vein graft to the ramus intermedius segment is patent but at anastomotic site 95% stenosis. Left Ventricle The left ventricle is normal in size with normal contractility. There was no cardiomyopathy. The left ventricular ejection fraction is estimated to be 55%. The left ventricular end diastolic pressure is 20 mmHg. There was no gradient across the aortic valve upon pullback. PCI Technique Lesion Anticoagulation was achieved with Heparin and integrellin. Percutaneous coronary intervention was performed on the SVG to ramus intermedius. The lesion stenosis prior to intervention was 95% with CLAUDE 2 flow. A 6 Fr LCB Guide Catheter was used to engage the ostium. A Luge 182 Interventional Guidewire was used to cross the lesion. BALLOON DILATION A Balloon catheter 2.0 x 10 mm Sprinter RX was inserted and inflated up to 10.00atm for 21seconds. STENT DEPLOYMENT A drug-eluting stent STENT RESOLUTE ZEYAD 2.25 X12 was inserted and inflated up to 14.00atm for 14seconds. Final angiography reveals 0 % stenosis with CLAUDE 3 flow. Conclusion [place] triple Vessel CAD Patent BALLARD to LAD Patent SVG to Ramus but at anastomotic site 95% stenisis. Patent SVg to OM1 Patent SVG to RCA Preserved LV Fx. EF-55%, EDP-20 mmof hg. Successful PTCa with APURVA of SVG to Ramus intermedius Recommendations Smoking Cessation Daily ASA with Plavix for at least one year Aggressive Medical TherapyCardiac Risk Reduction Program Compliance with meds. Cc; De. Dickerson
--- NOTE | 2018-04-06 13:04 | CP.PCM.PN ---
<Xavier Arce - Last Filed: 04/06/18 13:08> Subjective - Date & Time of Evaluation Date of Evaluation: 04/06/18 Time of Evaluation: 13:03 - Subjective Subjective: Patient seen and examined at bedside. No acute events overnight. Patient complains of headache and mild shortness of breath. Denies chest pain, nausea, vomiting, diarrhea, fever, chills, Objective - Vital Signs/Intake and Output Vital Signs (last 24 hours): Temp Pulse Resp BP Pulse Ox 97.8 F 88 20 124/70 95 04/06/18 06:00 04/06/18 10:00 04/06/18 06:00 04/06/18 08:54 04/06/18 06:00 Intake and Output: 04/06/18 04/06/18 06:59 18:59 Intake Total 1660 Output Total 3550 Balance -1890 - Medications Medications: Current Medications Acetaminophen (Tylenol 325mg Tab) 650 mg PO Q4H PRN PRN Reason: Pain, moderate (4-7) Last Admin: 04/06/18 06:19 Dose: 650 mg Albuterol/Ipratropium (Duoneb 3 Mg/0.5 Mg (3 Ml) Ud) 3 ml IH [id number] [facility] Last Admin: 04/06/18 08:39 Dose: 3 ml Albuterol/Ipratropium (Duoneb 3 Mg/0.5 Mg (3 Ml) Ud) 3 ml IH Q2H PRN PRN Reason: Shortness of Breath Last Admin: 04/05/18 01:23 Dose: 3 ml Aspirin (Aspirin Chewable) 81 mg PO DAILY [facility] Last Admin: 04/06/18 09:25 Dose: 81 mg Atorvastatin Calcium (Lipitor) 40 mg PO DIN [facility] Carvedilol (Coreg) 3.125 mg PO 0800,1800 [facility] Last Admin: 04/06/18 08:54 Dose: 3.125 mg Clopidogrel Bisulfate (Plavix) 75 mg PO DAILY [facility] Last Admin: 04/06/18 09:25 Dose: 75 mg Folic Acid (Folic Acid) 1 mg PO DAILY [facility] Last Admin: 04/06/18 09:25 Dose: 1 mg Azithromycin 250 mg/ Sodium (Chloride) 250 mls @ 167 mls/hr IVPB DAILY [facility] PRN Reason: Protocol Last Admin: 04/06/18 09:25 Dose: 167 mls/hr Methylprednisolone (Solu-Medrol) 30 mg IVP Q12 [facility] Last Admin: 04/06/18 09:25 Dose: 30 mg Montelukast Sodium (Singulair) 10 mg PO DAILY [facility] Last Admin: 04/06/18 09:25 Dose: 10 mg Nicotine (Nicoderm Cq) 1 patch TD DAILY [facility] Last Admin: 04/06/18 12:23 Dose: 1 patch Pantoprazole Sodium (Protonix Ec Tab) 40 mg PO 0600 [facility] Last Admin: 04/06/18 05:01 Dose: 40 mg Thiamine HCl (Vitamin B1 Tab) 100 mg PO DAILY [facility] Last Admin: 04/06/18 09:25 Dose: 100 mg - Labs Labs: 04/05/18 07:00 04/05/18 07:00 PT 10.5 SECONDS (9.4-12.5) 04/04/18 08:00 INR 0.91 04/04/18 08:00 APTT 25.8 Seconds (25.1-36.5) 04/04/18 08:00 - Constitutional Appears: Non-toxic, No Acute Distress - Head Exam Head Exam: ATRAUMATIC, NORMAL INSPECTION, NORMOCEPHALIC - ENT Exam ENT Exam: Mucous Membranes Moist, Normal Exam - Respiratory Exam Respiratory Exam: Decreased Breath Sounds, NORMAL BREATHING PATTERN. absent: Rales, Rhonchi, Wheezes - Cardiovascular Exam Cardiovascular Exam: RRR, +S1, +S2 - GI/Abdominal Exam GI & Abdominal Exam: Soft, Normal Bowel Sounds. absent: Tenderness - Extremities Exam Extremities Exam: Normal Inspection. absent: Calf Tenderness, Pedal Edema - Neurological Exam Neurological Exam: Alert, Awake, Oriented x3 - Psychiatric Exam Psychiatric exam: Normal Affect, Normal Mood - Skin Skin Exam: Intact, Normal Color, Warm Assessment and Plan - Assessment and Plan (Free Text) Plan: 63 year old male with past medical history significant for COPD, CAD s/p stents s/p CABG, alcohol and tobacco abuse who presented with chest pain and shortness of breath found to have NSTEMI s/p stent placement. 1. NSTEMI -S/P stent of saphenous vein graft to ramus -Continue ASA and Plavix -Echo pending -Cardiology following 2. COPD Exacerbation -Tapered IV Solumedrol to 30mg Q12, will continue due to shortness of breath -Continue Duonebs Q6 [facility] and Q2 PRN -Continue Zithromax -Continue Singulair 3. History of Alcohol Abuse -Continue PO Folic Acid, Thiamine and MV -Encouraged cessation 4. History of HTN -Continue home Coreg 5. History of Tobacco Abuse -Encouraged cessation -Nicotine patch given 6. DVT/GI Prophylaxis -Protonix -SCDs Yazmin, PGY-3 <Ministerio Dickerson - Last Filed: 04/06/18 16:35> Objective - Vital Signs/Intake and Output Vital Signs (last 24 hours): Temp Pulse Resp BP Pulse Ox 97.8 F 75 20 124/70 95 04/06/18 06:00 04/06/18 14:00 04/06/18 06:00 04/06/18 08:54 04/06/18 06:00 Intake and Output: 04/06/18 04/06/18 06:59 18:59 Intake Total 1660 Output Total 3550 Balance -1890 - Medications Medications: Current Medications Acetaminophen (Tylenol 325mg Tab) 650 mg PO Q4H PRN PRN Reason: Pain, moderate (4-7) Last Admin: 04/06/18 14:57 Dose: 650 mg Albuterol/Ipratropium (Duoneb 3 Mg/0.5 Mg (3 Ml) Ud) 3 ml IH [id number] [facility] Last Admin: 04/06/18 14:08 Dose: 3 ml Albuterol/Ipratropium (Duoneb 3 Mg/0.5 Mg (3 Ml) Ud) 3 ml IH Q2H PRN PRN Reason: Shortness of Breath Last Admin: 04/05/18 01:23 Dose: 3 ml Aspirin (Aspirin Chewable) 81 mg PO DAILY [facility] Last Admin: 04/06/18 09:25 Dose: 81 mg Atorvastatin Calcium (Lipitor) 40 mg PO DIN [facility] Carvedilol (Coreg) 3.125 mg PO 0800,1800 [facility] Last Admin: 04/06/18 08:54 Dose: 3.125 mg Clopidogrel Bisulfate (Plavix) 75 mg PO DAILY [facility] Last Admin: 04/06/18 09:25 Dose: 75 mg Folic Acid (Folic Acid) 1 mg PO DAILY [facility] Last Admin: 04/06/18 09:25 Dose: 1 mg Azithromycin 250 mg/ Sodium (Chloride) 250 mls @ 167 mls/hr IVPB DAILY [facility] PRN Reason: Protocol Last Admin: 04/06/18 09:25 Dose: 167 mls/hr Methylprednisolone (Solu-Medrol) 30 mg IVP Q12 [facility] Last Admin: 04/06/18 09:25 Dose: 30 mg Montelukast Sodium (Singulair) 10 mg PO DAILY [facility] Last Admin: 04/06/18 09:25 Dose: 10 mg Nicotine (Nicoderm Cq) 1 patch TD DAILY [facility] Last Admin: 04/06/18 12:23 Dose: 1 patch Pantoprazole Sodium (Protonix Ec Tab) 40 mg PO 0600 [facility] Last Admin: 04/06/18 05:01 Dose: 40 mg Thiamine HCl (Vitamin B1 Tab) 100 mg PO DAILY [facility] Last Admin: 04/06/18 09:25 Dose: 100 mg - Labs Labs: 04/05/18 07:00 04/05/18 07:00 PT 10.5 SECONDS (9.4-12.5) 04/04/18 08:00 INR 0.91 04/04/18 08:00 APTT 25.8 Seconds (25.1-36.5) 04/04/18 08:00 Attending/Attestation - Attestation I have personally seen and examined this patient.: Yes I have fully participated in the care of the patient.: Yes I have reviewed all pertinent clinical information, including history, physical exam and plan: Yes Notes (Text): 04/06/18 16:26 63 year old male with past medical history of COPD, CAD s/p stents s/p CABG, alcohol and tobacco use who presented with complaint of chest pain and shortness of breath. He was discharged the day prior after treated from COPD exacerbation. ACS was ruled out with serially negative cardiac enzymes. After discharge he drank alcohol and smoked cigarettes, returning first to ER for alcohol intoxication and then again for chest pain / shortness of breath. On this admission he was found to have elevated troponin of 0.19, possible NSTEMI. He was given lovenox, aspirin, and plavix. He was seen by cardiology and underwent cardiac cath and stent placement. He is currently on aspirin, plavix, coreg and lipitor. He is on tapering IV steroids, antibiotics and duonebs for COPD exacerbation. He was counselled on alcohol and smoking cessation. Ministerio Dickerson MD Hospitalist.
[2018-04-07] MEDS: Albuterol-Ipratrop 3 mg / 0.5 (3 ml) UD IH SCH ×3 (01:15→13:19)
[2018-04-07] MEDS: Pantoprazole 40 mg EC Tab PO SCH (05:29)
[2018-04-07 07:19] VITALS: O2SAT 100
[2018-04-07 07:25] LABS: HEMOGLOBIN 12.2 g/dL (14.0-18.0); MEAN CELL VOLUME 94.1 fl (80.0-105.0); MEAN CORPUSCULAR HEMOGLOBIN 31.4 pg (25.0-35.0); MEAN CORPUSCULAR HGB CONC 33.4 g/dl (31.0-37.0); MEAN PLATELET VOLUME 8.8 fl (7.0-11.0); RBC 3.88 10^6/uL (3.5-6.1); RED CELL DISTRIBUTION WIDTH 13.6 % (11.5-14.5); WHITE BLOOD COUNT 7.2 10^3/ul (4.5-11.0)
[2018-04-07 08:03] LABS: BLOOD UREA NITROGEN 25 mg/dL (7-21); CALCIUM 9.6 mg/dL (8.4-10.5); GFR NON-AFRICAN AMERICAN > 60
[2018-04-07] MEDS: MethylPREDNISolone 40 mg Vial IVP SCH (10:51)
[2018-04-07] MEDS: Azithromycin 250 MG in Sodium Chloride 0.9% 250 ML IVPB SCH (11:41)
[2018-04-07 12:17] VITALS: RESP 18; TEMP 98.7
--- NOTE | 2018-04-07 14:30 | CP.PCM.DIS ---
<Jay Jay Salas - Last Filed: 04/07/18 14:51> Provider - Provider Date of Admission: 04/04/18 10:01 Attending physician: Ministerio Dickerson MD Primary care physician: Lauren Damon DO Consults: cardiology Time Spent in preparation of Discharge (in minutes): 50 Hospital Course - Lab Results Lab Results: Most Recent Lab Values WBC 7.2 10^3/ul (4.5-11.0) 04/07/18 06:30 RBC 3.88 10^6/uL (3.5-6.1) 04/07/18 06:30 Hgb 12.2 g/dL (14.0-18.0) L 04/07/18 06:30 Hct 36.5 % (42.0-52.0) L 04/07/18 06:30 MCV 94.1 fl (80.0-105.0) 04/07/18 06:30 MCH 31.4 pg (25.0-35.0) 04/07/18 06:30 MCHC 33.4 g/dl (31.0-37.0) 04/07/18 06:30 RDW 13.6 % (11.5-14.5) 04/07/18 06:30 Plt Count 257 10^3/uL (120.0-450.0) 04/07/18 06:30 MPV 8.8 fl (7.0-11.0) 04/07/18 06:30 Gran % 75.6 % (50.0-68.0) H 04/05/18 07:00 Lymph % (Auto) 10.3 % (22.0-35.0) L 04/05/18 07:00 [place] % (Auto) 14.1 % (1.0-6.0) H 04/05/18 07:00 Eos % (Auto) 0.0 % (1.5-5.0) L 04/05/18 07:00 Baso % (Auto) 0.0 % (0.0-3.0) 04/05/18 07:00 Gran # 4.78 (1.4-6.5) 04/05/18 07:00 Lymph # (Auto) 0.7 (1.2-3.4) L 04/05/18 07:00 [place] # (Auto) 0.9 (0.1-0.6) H 04/05/18 07:00 Eos # (Auto) 0.0 (0.0-0.7) 04/05/18 07:00 Baso # (Auto) 0.00 K/mm3 (0.0-2.0) 04/05/18 07:00 PT 10.5 SECONDS (9.4-12.5) 04/04/18 08:00 INR 0.91 04/04/18 08:00 APTT 25.8 Seconds (25.1-36.5) 04/04/18 08:00 pCO2 43 mm/Hg (35-45) 04/04/18 09:30 pO2 68.0 mm/Hg (80-100) L 04/04/18 09:30 HCO3 27.9 mmol/L (21-28) 04/04/18 09:30 ABG pH 7.42 (7.35-7.45) 04/04/18 09:30 ABG Total CO2 29.2 mmol.L (22-28) H 04/04/18 09:30 ABG O2 Saturation 96.5 % (95-98) 04/04/18 09:30 ABG O2 Content 14.7 ML/dl (15-23) L 04/04/18 09:30 ABG Base Excess 3.0 mmol/L (-2.0-3.0) 04/04/18 09:30 ABG Hemoglobin 11.1 g/dL (11.7-17.4) L 04/04/18 09:30 ABG Carboxyhemoglobin 1.9 % (0.5-1.5) H 04/04/18 09:30 POC ABG HHb (Measured) 3.4 % (0-5) 04/04/18 09:30 ABG Methemoglobin 0.9 % (0.0-3.0) 04/04/18 09:30 ABG O2 Capacity 15.2 mL/dl (16-24) L 04/04/18 09:30 Hgb O2 Saturation 93.8 % (95.0-98.0) L 04/04/18 09:30 FiO2 32.0 % 04/04/18 09:30 Sodium 137 mmol/L (132-148) 04/07/18 06:30 Potassium 4.8 mmol/L (3.6-5.0) 04/07/18 06:30 Chloride 100 mmol/L (98-107) 04/07/18 06:30 Carbon Dioxide 26 mmol/L (21-33) 04/07/18 06:30 Anion Gap 16 (10-20) 04/07/18 06:30 BUN 25 mg/dL (7-21) H 04/07/18 06:30 Creatinine 0.7 mg/dl (0.8-1.5) L 04/07/18 06:30 Est GFR ( Amer) > 60 04/07/18 06:30 Est GFR (Non-Af Amer) > 60 04/07/18 06:30 Random Glucose 103 mg/dL (70-110) 04/07/18 06:30 Calcium 9.6 mg/dL (8.4-10.5) 04/07/18 06:30 Magnesium 2.2 mg/dL (1.7-2.2) 04/04/18 09:00 Total Bilirubin 0.4 mg/dL (0.2-1.3) 04/05/18 07:00 AST 33 U/L (17-59) 04/05/18 07:00 ALT 23 U/L (7-56) 04/05/18 07:00 Alkaline Phosphatase 46 U/L (38-126) 04/05/18 07:00 Lactate Dehydrogenase 395 U/L (333-699) 04/04/18 08:00 Total Creatine Kinase 142 U/L (35-230) 04/04/18 08:00 Troponin I 0.19 ng/mL H* D 04/04/18 08:00 NT-Pro-B Natriuret Pep 499 pg/mL (0-450) H 04/04/18 09:00 Total Protein 6.4 g/dL (5.8-8.3) 04/05/18 07:00 Albumin 4.0 g/dL (3.0-4.8) 04/05/18 07:00 Globulin 2.4 gm/dL 04/05/18 07:00 Albumin/Globulin Ratio 1.7 (1.1-1.8) 04/05/18 07:00 Triglycerides 86 mg/dL (35-160) 04/04/18 09:00 Cholesterol 189 mg/dL (130-200) 04/04/18 09:00 LDL Cholesterol Direct 86 mg/dL (0-129) 04/04/18 09:00 HDL Cholesterol 65 mg/dL (29-60) H 04/04/18 09:00 Urine Opiates Screen Positive (NEGATIVE) H 04/05/18 06:30 Urine Methadone Screen Negative (NEGATIVE) 04/05/18 06:30 Ur Barbiturates Screen Negative (NEGATIVE) 04/05/18 06:30 Ur Phencyclidine Scrn Negative (NEGATIVE) 04/05/18 06:30 Ur Amphetamines Screen Negative (NEGATIVE) 04/05/18 06:30 U Benzodiazepines Scrn Positive (NEGATIVE) H 04/05/18 06:30 U Oth Cocaine Metabols Negative (NEGATIVE) 04/05/18 06:30 U Cannabinoids Screen Negative (NEGATIVE) 04/05/18 06:30 Alcohol, Quantitative < 10 mg/dL (0-10) 04/04/18 09:00 - Hospital Course Hospital Course: 63 y/o male with PMH of HTN, COPD, TIA, CAD with stents, CABG presents to the ED with complaint of chest pain and shortness of breath. He was discharged day prior after treated from COPD exacerbation at which ACS was ruled out with serially negative cardiac enzymes. Shortly after discharge he drank alcohol and smoked cigarettes, returning first to ER for alcohol intoxication and chest pain. On admission he was found to have elevated troponin of 0.19, possible NSTEMI. 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 He is on aspirin, plavix, coreg and lipitor. He was on tapering IV steroids, antibiotics and duonebs for COPD exacerbation. He was counselled on alcohol and smoking cessation. Patient is medically optimized and is ready to be discharged today. On discharge: -Please follow up with you PMD Dr Damon within one week of discharge -Please follow up with your Sales Systems Engineer Dr Verdin within 2 weeks of discharge -Please take all your medication as prescribed -Please take aspirin and plavix as prescribed for one year after cardiac stent placed -Please follow a healthy diet and exercise regimen -Please stop smoking, drinking alcohol to reduce risk of hospital admission and risk of heart attack and stroke -Please return to the emergency department if symptoms reoccur Discharge Exam - Head Exam Head Exam: ATRAUMATIC, NORMAL INSPECTION, NORMOCEPHALIC - Eye Exam Eye Exam: EOMI, Normal appearance, PERRL Pupil Exam: NORMAL ACCOMODATION, PERRL - Respiratory Exam Respiratory Exam: Clear to PA & Lateral, NORMAL BREATHING PATTERN - Cardiovascular Exam Cardiovascular Exam: REGULAR RHYTHM, +S1, +S2 - GI/Abdominal Exam GI & Abdominal Exam: Normal Bowel Sounds - Rectal Exam Rectal Exam: NORMAL INSPECTION - Extremities Exam Extremities exam: normal capillary refill, pedal pulses present - Back Exam Back exam: NORMAL INSPECTION - Neurological Exam Neurological exam: Alert, CN II-XII Intact, Normal Gait, Oriented x3, Reflexes Normal - Psychiatric Exam Psychiatric exam: Normal Affect, Normal Mood - Skin Skin Exam: Dry, Intact, Normal Color, Warm Discharge Plan - Discharge Medications Prescriptions: Atorvastatin [Lipitor] 40 mg PO DIN #30 tab Budesonide/Formoterol Fumarate [Symbicort] 2 aer IH Q12 #1 inhaler Carvedilol [Coreg] 12.5 mg PO BID #60 tab predniSONE [Prednisone] 40 mg PO DAILY #6 tab - Follow Up Plan Condition: SERIOUS Disposition: HOME/ ROUTINE Instructions: Heart Attack, Coronary Heart Disease, Chest Pain, Cardiac Catheterization (DC), Coronary Angioplasty (DC), Coronary Stenting (DC), Alcohol Abuse and Alcoholism (DC) Additional Instructions: -Please follow up with you PMD Dr Damon within one week of discharge -Please follow up with your Sales Systems Engineer Dr Verdin within 2 weeks of discharge -Please take all your medication as prescribed -Please take aspirin and plavix as prescribed for one year after cardiac stent placed -Please follow a healthy diet and exercise regimen -Please stop smoking, drinking alcohol to reduce risk of hospital admission and risk of heart attack and stroke -Please return to the emergency department if symptoms reoccur Referrals: Lauren Damon DO [Primary Care Provider] - <Flor Bowen - Last Filed: 04/08/18 16:06> Provider - Provider Date of Admission: 04/04/18 10:01 Attending physician: Ministerio Dickerson MD Primary care physician: Lauren Damon DO Hospital Course - Lab Results Lab Results: Most Recent Lab Values WBC 7.2 10^3/ul (4.5-11.0) 04/07/18 06:30 RBC 3.88 10^6/uL (3.5-6.1) 04/07/18 06:30 Hgb 12.2 g/dL (14.0-18.0) L 04/07/18 06:30 Hct 36.5 % (42.0-52.0) L 04/07/18 06:30 MCV 94.1 fl (80.0-105.0) 04/07/18 06:30 MCH 31.4 pg (25.0-35.0) 04/07/18 06:30 MCHC 33.4 g/dl (31.0-37.0) 04/07/18 06:30 RDW 13.6 % (11.5-14.5) 04/07/18 06:30 Plt Count 257 10^3/uL (120.0-450.0) 04/07/18 06:30 MPV 8.8 fl (7.0-11.0) 04/07/18 06:30 Gran % 75.6 % (50.0-68.0) H 04/05/18 07:00 Lymph % (Auto) 10.3 % (22.0-35.0) L 04/05/18 07:00 [place] % (Auto) 14.1 % (1.0-6.0) H 04/05/18 07:00 Eos % (Auto) 0.0 % (1.5-5.0) L 04/05/18 07:00 Baso % (Auto) 0.0 % (0.0-3.0) 04/05/18 07:00 Gran # 4.78 (1.4-6.5) 04/05/18 07:00 Lymph # (Auto) 0.7 (1.2-3.4) L 04/05/18 07:00 [place] # (Auto) 0.9 (0.1-0.6) H 04/05/18 07:00 Eos # (Auto) 0.0 (0.0-0.7) 04/05/18 07:00 Baso # (Auto) 0.00 K/mm3 (0.0-2.0) 04/05/18 07:00 PT 10.5 SECONDS (9.4-12.5) 04/04/18 08:00 INR 0.91 04/04/18 08:00 APTT 25.8 Seconds (25.1-36.5) 04/04/18 08:00 pCO2 43 mm/Hg (35-45) 04/04/18 09:30 pO2 68.0 mm/Hg (80-100) L 04/04/18 09:30 HCO3 27.9 mmol/L (21-28) 04/04/18 09:30 ABG pH 7.42 (7.35-7.45) 04/04/18 09:30 ABG Total CO2 29.2 mmol.L (22-28) H 04/04/18 09:30 ABG O2 Saturation 96.5 % (95-98) 04/04/18 09:30 ABG O2 Content 14.7 ML/dl (15-23) L 04/04/18 09:30 ABG Base Excess 3.0 mmol/L (-2.0-3.0) 04/04/18 09:30 ABG Hemoglobin 11.1 g/dL (11.7-17.4) L 04/04/18 09:30 ABG Carboxyhemoglobin 1.9 % (0.5-1.5) H 04/04/18 09:30 POC ABG HHb (Measured) 3.4 % (0-5) 04/04/18 09:30 ABG Methemoglobin 0.9 % (0.0-3.0) 04/04/18 09:30 ABG O2 Capacity 15.2 mL/dl (16-24) L 04/04/18 09:30 Hgb O2 Saturation 93.8 % (95.0-98.0) L 04/04/18 09:30 FiO2 32.0 % 04/04/18 09:30 Sodium 137 mmol/L (132-148) 04/07/18 06:30 Potassium 4.8 mmol/L (3.6-5.0) 04/07/18 06:30 Chloride 100 mmol/L (98-107) 04/07/18 06:30 Carbon Dioxide 26 mmol/L (21-33) 04/07/18 06:30 Anion Gap 16 (10-20) 04/07/18 06:30 BUN 25 mg/dL (7-21) H 04/07/18 06:30 Creatinine 0.7 mg/dl (0.8-1.5) L 04/07/18 06:30 Est GFR ( Amer) > 60 04/07/18 06:30 Est GFR (Non-Af Amer) > 60 04/07/18 06:30 Random Glucose 103 mg/dL (70-110) 04/07/18 06:30 Calcium 9.6 mg/dL (8.4-10.5) 04/07/18 06:30 Magnesium 2.2 mg/dL (1.7-2.2) 04/04/18 09:00 Total Bilirubin 0.4 mg/dL (0.2-1.3) 04/05/18 07:00 AST 33 U/L (17-59) 04/05/18 07:00 ALT 23 U/L (7-56) 04/05/18 07:00 Alkaline Phosphatase 46 U/L (38-126) 04/05/18 07:00 Lactate Dehydrogenase 395 U/L (333-699) 04/04/18 08:00 Total Creatine Kinase 142 U/L (35-230) 04/04/18 08:00 Troponin I 0.19 ng/mL H* D 04/04/18 08:00 NT-Pro-B Natriuret Pep 499 pg/mL (0-450) H 04/04/18 09:00 Total Protein 6.4 g/dL (5.8-8.3) 04/05/18 07:00 Albumin 4.0 g/dL (3.0-4.8) 04/05/18 07:00 Globulin 2.4 gm/dL 04/05/18 07:00 Albumin/Globulin Ratio 1.7 (1.1-1.8) 04/05/18 07:00 Triglycerides 86 mg/dL (35-160) 04/04/18 09:00 Cholesterol 189 mg/dL (130-200) 04/04/18 09:00 LDL Cholesterol Direct 86 mg/dL (0-129) 04/04/18 09:00 HDL Cholesterol 65 mg/dL (29-60) H 04/04/18 09:00 Urine Opiates Screen Positive (NEGATIVE) H 04/05/18 06:30 Urine Methadone Screen Negative (NEGATIVE) 04/05/18 06:30 Ur Barbiturates Screen Negative (NEGATIVE) 04/05/18 06:30 Ur Phencyclidine Scrn Negative (NEGATIVE) 04/05/18 06:30 Ur Amphetamines Screen Negative (NEGATIVE) 04/05/18 06:30 U Benzodiazepines Scrn Positive (NEGATIVE) H 04/05/18 06:30 U Oth Cocaine Metabols Negative (NEGATIVE) 04/05/18 06:30 U Cannabinoids Screen Negative (NEGATIVE) 04/05/18 06:30 Alcohol, Quantitative < 10 mg/dL (0-10) 04/04/18 09:00 Attending/Attestation - Attestation I have personally seen and examined this patient.: Yes I have fully participated in the care of the patient.: Yes I have reviewed all pertinent clinical information, including history, physical exam and plan: Yes Notes (Text): 04/08/18 16:00 Medical record note made by the resident after discussion with my direction and input after the patient was personally seen and examined by me. I have reviewed the chart and agree that the record accurately reflects by personal performance of the history, physical exam, data review, and medical decision-making, in the course for the patient. I have also personally directed the plan of care. 63 yrs old male with PMH of CAD,SP CABAG,Alcohol and smoking was admitted with USA and COPD exacerbation.Patient is SP Cardiac cath and stent to RCA graft. He is pain free. COPD has improved, patient is on room air air and is ambulatory. The issue of compliance with medication, chronic smoking and drug abuse was discussed in detail. He will follow up with PCP and cardiology Management plan was discussed in detail with patient. Education was provided.
[2018-04-07 17:27] VITALS: BP 126/66
[2018-04-07 18:02] VITALS: PULSE 87
--- NOTE | 2018-04-07 20:24 | CARD ---
APPROVED REPORT Date of service: 04/07/2018 EXAM: Two-dimensional and M-mode echocardiogram with Doppler and color Doppler. INDICATION CP, R/O ACS 2D DIMENSIONS Left Atrium (2D)3.8 (1.6-4.0cm)IVSd0.9 (0.7-1.1cm) LVDd4.5 (3.9-5.9cm)PWd1.1 (0.7-1.1cm) LVDs2.8 (2.5-4.0cm)FS (%) 36.8 % LVEF (%)66.7 (>50%) M-Mode DIMENSIONS Aortic Root3.40 (2.2-3.7cm)Aortic Cusp Exc.1.80 (1.5-2.0cm) Aortic Valve AoV Peak Wuircmsu471.0cm/Gabriela Peak GR.9mmHg Mitral Valve MV E Zhenrfwu84.4cm/sMV A Hkzotwed85.6cm/sE/A ratio1.1 TDI Lateral E' Peak V11.50cm/sMedial E' Peak V7.60cm/sE/Lateral E'6.4 E/Medial E'9.7 Pulmonary Valve PV Peak Ipaalzfd05.9cm/sPV Peak Grad.4mmHg Tricuspid Valve TR Peak Iifqbfyj421do/sRAP [id number] Peak Gr.29mmHg [id number] LEFT VENTRICLE The left ventricle is normal size. There is normal left ventricular wall thickness. The left ventricular ejection fraction is within the normal range. 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 Transmitral Doppler flow pattern is abnormal. RIGHT VENTRICLE The right ventricle is normal size. There is normal right ventricular wall thickness. The right ventricular systolic function is normal. ATRIA The left atrium size is normal. The right atrium size is normal. AORTIC VALVE The aortic valve is not well visualized. No aortic regurgitation is present. There is no aortic valvular stenosis. MITRAL VALVE The mitral valve is mildly thickened. Mitral regurgitation is trace. TRICUSPID VALVE The tricuspid valve is normal in structure. There is mild pulmonary hypertension. GREAT VESSELS The aortic root is normal in size. The IVC is normal in size and collapses >50% with inspiration. PERICARDIAL EFFUSION There is no pericardial effusion. <Conclusion> The left ventricle is normal size. There is normal left ventricular wall thickness. The left ventricular ejection fraction is within the normal range. 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 Transmitral Doppler flow pattern is abnormal. There is mild pulmonary hypertension.
--- NOTE | 2018-04-08 08:11 | PN ---
DATE: 04/07/2018 REASON FOR CONSULTATION AND FOLLOWUP: Hji-[id number] myocardial infarction, coronary artery disease, status post PTCA of SVG to ramus. SUBJECTIVE: The patient denies any chest pain, shortness of breath, or any palpitations. Mild tenderness in both sides of the chest. PHYSICAL EXAMINATION: VITAL SIGNS: Temperature afebrile, heart rate 70, blood pressure 137/77. HEENT: PERRLA. Extraocular muscles are intact. NECK: Supple. No carotid bruits or thyromegaly. CHEST: Clear to auscultation. HEART: S1 and S2 regular. ABDOMEN: Soft. EXTREMITIES: Clubbing and cyanosis negative. LABORATORY DATA: Blood workup as follows: WBC 7.8, hemoglobin 12.2, hematocrit 36.5, and platelet count 257. Chemistry shows sodium 136, potassium 4.8, chloride 100, carbon dioxide 26, anion gap of 15, BUN 25, and creatinine 0.7. IMPRESSION: Acute coronary syndrome, unstable angina, hypertension, hyperlipidemia, history of coronary artery disease, history of coronary artery bypass graft in the past with multiple stents, status post percutaneous transluminal coronary angioplasty of saphenous vein graft to right coronary artery. The patient is stable. RECOMMENDATIONS: The patient is okay to be discharged. We will follow up as outpatient. Continue aspirin and Plavix. Emphasis made for the patient to continue aspirin and Plavix. Plavix has been arranged from downstairs, a prescription given to take with the patient. Emphasis made for the compliance as the patient can get a heart attack. Discussed in length with the patient. Thank you, Dr. Dickerson, for providing us the opportunity in taking care of the patient, [place] Alexandra. Flor Verdin MD cc: Dr. Dickerson
== END 2018-04-07 19:18 | disposition home or self-care (01) | DRG 247 ==
LOC: ED 06:24 → ERH 10:01 → 2RSO 12:18
PROVIDERS: ADMIT Internal Medicine; ATTEND Internal Medicine
PROC: 3E033PZ Introduction of Platelet Inhibitor into Peripheral Vein, Percutaneous Approach (ICD-10-PCS; 2018-04-04)
PROC: 027034Z Dilation of Coronary Artery, One Artery with Drug-eluting Intraluminal Device, Percutaneous Approach (ICD-10-PCS; principal; 2018-04-06)
PROC: 4A023N7 Measurement of Cardiac Sampling and Pressure, Left Heart, Percutaneous Approach (ICD-10-PCS; 2018-04-06)
PROC: B2151ZZ Fluoroscopy of Left Heart using Low Osmolar Contrast (ICD-10-PCS; 2018-04-06)
PROC: B2111ZZ Fluoroscopy of Multiple Coronary Arteries using Low Osmolar Contrast (ICD-10-PCS; 2018-04-06)
DX: I21.4 Non-ST elevation (NSTEMI) myocardial infarction (principal); J44.1 Chronic obstructive pulmonary disease with (acute) exacerbation; J45.901 Unspecified asthma with (acute) exacerbation; I25.110 Atherosclerotic heart disease of native coronary artery with unstable angina pectoris; E78.5 Hyperlipidemia, unspecified; F17.210 Nicotine dependence, cigarettes, uncomplicated; I67.9 Cerebrovascular disease, unspecified; I73.9 Peripheral vascular disease, unspecified; I83.90 Asymptomatic varicose veins of unspecified lower extremity; K21.9 Gastro-esophageal reflux disease without esophagitis; I10 Essential (primary) hypertension; Z87.442 Personal history of urinary calculi; R09.02 Hypoxemia; Z79.82 Long term (current) use of aspirin; Z86.73 Personal history of transient ischemic attack (TIA), and cerebral infarction without residual deficits; Z87.440 Personal history of urinary (tract) infections; Z90.49 Acquired absence of other specified parts of digestive tract; Z91.14 Patient's other noncompliance with medication regimen; Z91.19 Patient's noncompliance with other medical treatment and regimen; Z95.1 Presence of aortocoronary bypass graft; Z95.5 Presence of coronary angioplasty implant and graft

== ENCOUNTER 2018-04-16 12:23 | Inpatient (IN) | payer MEDICAID, MEDICARE ==
[2018-04-16 12:26] VITALS: BMI 25.7
[2018-04-16] MEDS ORDERED: Albuterol-Ipratrop 3 mg / 0.5 (3 ml) UD IH STA (12:59)
--- NOTE | 2018-04-16 13:24 | ED PDOC ---
Arrival/HPI - General Chief Complaint: Shortness Of Breath Time Seen by Provider: 04/16/18 12:57 Historian: Patient - History of Present Illness Narrative History of Present Illness (Text): 04/16/18 13:18 63 yo M with PMH of HTN, COPD, TIA, CAD with stents, CABG, EtOH abuse, and active tobacco abuse who presents to the Emergency department complaining of worsening shortness of breath and chest pain that began earlier today. He describes the chest pain as mid-sternal in origin radiating down to the epigastrium. Patient states symptoms started yesterday but worsened when he experienced a sudden episode of dizziness at work at 11:30 am earlier today. He denies any fever, chills, nausea, vomiting, diarrhea, abdominal pain, neck pain, back pain, headache, numbness/tingling or any other complaints. Patient denies any sick contact or recent travel. Patient states he recently had a cardiac stent(proximal RCA) placement by Dr. Verdin 9 days ago without any complications. PMD: Dr. Damon Cardiology: Dr. Verdin Time/Duration: 4-6 hours Symptom Onset: Gradual Symptom Course: Unchanged Quality: Burning Activities at Onset: Light Context: Work Past Medical History - Provider Review Nursing Documentation Reviewed: Yes - Travel History Have you recently traveled outside [place] w/in the past 3 mons?: No - Past History Past History: No Previous - Infectious Disease Hx of Infectious Diseases: None - Tetanus Immunization Tetanus Immunization: Unknown - Reproductive Currently Lactating: No - Cardiac Hx Cardiac Disorders: Yes (CAD,CABG) Hx Angina: Yes Hx Cardiac Arrhythmia: Yes Hx Hypertension: Yes Hx Peripheral Vascular Disease: Yes Other/Comment: Carotid enarterectomy - Pulmonary Hx Respiratory Disorders: Yes Hx Asthma: Yes Hx Chronic Obstructive Pulmonary Disease (COPD): Yes Hx Emphysema: Yes - Neurological Hx Neurological Disorder: Yes Hx Dizziness: Yes Hx Migraine: Yes Hx Transient Ischemic Attacks (TIA): Yes - HEENT Hx HEENT Disorder: Yes Hx Cataracts: Yes - Renal Hx Renal Disorder: Yes Hx Kidney Stones: Yes - Endocrine/Metabolic Hx Endocrine Disorders: No - Hematological/Oncological Hx Blood Disorders: No - Integumentary Hx Dermatological Disorder: Yes Other/Comment: VARICOSE 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 - Musculoskeletal/Rheumatological Hx Musculoskeletal Disorders: Yes Hx Arthritis: Yes Hx Degenerative Joint Disease: Yes Hx Falls: Yes Hx Fractures: Yes (RIB) - Gastrointestinal Hx Gastrointestinal Disorders: Yes (COLITIS,DIVERTICULOSIS) Hx Gastroesophageal Reflux: Yes - Genitourinary/Gynecological Hx Genitourinary Disorders: Yes Hx Urinary Tract Infection: Yes - Psychiatric Hx Psychophysiologic Disorder: Yes (USED TO DRINK ALCOHOL.H/O ETOH ABUSE. QUIT.) Hx Anxiety: Yes Hx Substance Use: No (DENIES) - Surgical History Hx Cardiac Catheterization: Yes (CORONARY STENT) Hx Cholecystectomy: Yes Hx Coronary Stent: Yes Hx Open Heart Surgery: Yes (triple bypass) - Anesthesia Hx Anesthesia: Yes Hx Anesthesia Reactions: No Hx Malignant Hyperthermia: No - Suicidal Assessment Feels Threatened In Home Enviroment: No Family/Social History - Physician Review Nursing Documentation Reviewed: Yes Family/Social History: No Known Family HX Smoking Status: Former Smoker Hx Alcohol Use: Yes (WAS SOBER FOR A YR,RELAPSED 04-03-18) Hx Substance Use: No (DENIES) Substance used: HEROIN, MARIJUANA Hx Substance Use Treatment: No Allergies/Home Meds Allergies/Adverse Reactions: Allergies shellfish derived Allergy (Verified 04/16/18 12:44) ANAPHYLAXIS Sulfa (Sulfonamide Antibiotics) Allergy (Verified 04/16/18 12:44) RASH Home Medications: Home Meds Medication Instructions Recorded Confirmed Albuterol HFA [Ventolin HFA 90 2 puff IH [id number] 04/04/18 04/04/18 mcg/actuation (8 g)] Aspirin [Low Dose Aspirin EC] 81 mg PO DAILY 04/04/18 04/04/18 Azithromycin [Zithromax Tri-Ameya] 500 mg PO DAILY 04/04/18 04/04/18 Clopidogrel [Plavix] 75 mg PO DAILY 04/04/18 04/04/18 Famotidine [Pepcid] 20 mg PO DAILY 04/04/18 04/04/18 Folic Acid 1 mg PO DAILY 04/04/18 04/04/18 Isosorbide Mononitrate ER [Imdur 30 mg PO DAILY 04/04/18 04/04/18 ER] Montelukast [Singulair] 10 mg PO DAILY 04/04/18 04/04/18 Multivit-Min/Iron/Folic Acid/K 1 each PO DAILY 04/04/18 04/04/18 [Adults Multivitamin Tablet] Nitroglycerin [Nitrostat] 0.4 mg SL PRN PRN 04/04/18 04/04/18 Thiamine [Vitamin B1 Tab] 50 mg PO DAILY 04/04/18 04/04/18 Review of Systems - Physician Review All systems were reviewed & negative as marked: Yes - Review of Systems Constitutional: absent: Fevers Respiratory: SOB. absent: Cough Cardiovascular: Chest Pain Gastrointestinal: absent: Abdominal Pain, Nausea, Vomiting Musculoskeletal: absent: Back Pain, Neck Pain Neurological: Dizziness. absent: Headache Physical Exam Vital Signs Reviewed: Yes Vital Signs Temp Pulse Resp BP Pulse Ox 04/16/18 12:31 98.4 F 73 14 96/61 L 100 Temperature: Afebrile Blood Pressure: Hypotensive Pulse: Regular Respiratory Rate: Normal Appearance: Positive for: Well-Appearing, Non-Toxic, Comfortable Pain Distress: None Mental Status: Positive for: Alert and Oriented X 3 - Systems Exam Head: Present: Atraumatic, Normocephalic Pupils: Present: PERRL Extroacular Muscles: Present: EOMI Conjunctiva: Present: Normal Mouth: Present: Moist Mucous Membranes Neck: Present: Normal Range of Motion Respiratory/Chest: Present: Good Air Exchange, Wheezes (Inspiratory and expiratory wheezes bilaterally.). No: Respiratory Distress, Accessory Muscle Use, Rales, Retracting, Rhonchi, Tachypneic, Tender to Palpation Cardiovascular: Present: Regular Rate and Rhythm, Normal S1, S2. No: Murmurs Abdomen: No: Tenderness, Distention, Peritoneal Signs Back: Present: Normal Inspection Upper Extremity: Present: Normal Inspection, NORMAL PULSES, Capillary Refill < 2s, Other (No clubbing in the digits). No: Cyanosis, Edema, Deformity Lower Extremity: Present: Normal Inspection, NORMAL PULSES, Capillary Refill < 2 s. No: Edema (No pitting edema), Deformity Neurological: Present: GCS=15, CN II-XII Intact, Speech Normal Skin: Present: Warm, Dry, Normal Color. No: Rashes Psychiatric: Present: Alert, Oriented x 3, Normal Insight, Normal Concentration Medical Decision Making ED Course and Treatment: 04/16/18 13:26 Impression: 63 year old male presents to the Emergency department complaining of dizziness, shortness of breath and chest pain. Differential Diagnosis included but are not limited to: COPD exacerbation Pneumonia Bronchitis ACS Plan: -- EKG --Morphine --SL NTG -- Labs -- CXR --Calcium gluconate --Sodium bicarbonate --Albuterol -- Duonebs -- Solumedrol -- Urinalysis -- Reassess and disposition Prior Visits: Patient's prior visits were reviewed. Patient had a recent admission on 04/04/2018 where he had a NSTEMI. Patient was taken to CT and stent was placed in proximal RCA. Progress Notes: 04/16/18 14:06 Labs reviewed with potassium noted to be 5.1. Hyperkalemia protocol ordered. Patient reassessed and states his chest pain is worsened. Nitroglycerin ordered. 04/16/18 14:11 04/16/18 14:[address] Elvia Heath(hospitalist) who accepts patient onto her service. Morphine ordered. - RAD Interpretation Narrative RAD Interpretations (Text): 04/16/18 13:34 Chest X-ray reviewed by radiologist, shows: FINDINGS: LUNGS: No active pulmonary disease. PLEURA: No significant pleural effusion identified, no pneumothorax apparent. CARDIOVASCULAR: No radiographic findings to suggest acute or significant cardiovascular disease. Incidental Finding(s): Postoperative changes related to sternotomy. OSSEOUS STRUCTURES: No significant abnormalities. Old healed posterior lateral left rib fractures. VISUALIZED UPPER ABDOMEN: Normal. OTHER FINDINGS: None. IMPRESSION: No active disease. No significant interval change compared to the prior examination(s). Radiology Orders: 04/16/18 12:59 CHEST PORTABLE [RAD] Stat Child Protection Specialist: Radiologist - EKG Interpretation EKG Interpretation (Text): NSR @ 70. Peaked T waves seen in precordial leads. No ST elevations or ST depressions noted Interpreted by ED Physician: Yes Type: 12 lead EKG Comparison: Different from prev. EKG - Medication Orders Current Medication Orders: Discontinued Medications Albuterol/Ipratropium (Duoneb 3 Mg/0.5 Mg (3 Ml) Ud) 3 ml IH STAT STA Stop: 04/16/18 13:00 Methylprednisolone (Solu-Medrol) 125 mg IVP STAT STA Stop: 04/16/18 13:01 - Scribe Statement The provider has reviewed the documentation as recorded by the Sarahibe Mary Jimenez. All medical record entries made by the Scribe were at my direction and personal ly dictated by me. I have reviewed the chart and agree that the record accurately reflects my personal performance of the history, physical exam, medical decision making, and the department course for this patient. I have also personally directed, reviewed, and agree with the discharge instructions and disposition. Disposition/Present on Arrival - Present on Arrival Any Indicators Present on Arrival: No History of DVT/PE: No History of Uncontrolled Diabetes: No Urinary Catheter: No History of Decub. Ulcer: No History Surgical Site Infection Following: None - Disposition Have Diagnosis and Disposition been Completed?: Yes Diagnosis: Hyperkalemia, Chest pain Disposition: HOSPITALIZED Disposition Time: 14:57 Patient Plan: Observation Patient Problems: Current Active Problems Problem Status Onset Chest pain Acute Hyperkalemia Acute Condition: FAIR Discharge Instructions (ExitCare): Chest Pain (ED) Referrals: Lauren Damon DO [Primary Care Provider] - Follow up with primary Forms: [employer] ([place])
--- NOTE | 2018-04-16 13:31 | RAD ---
Date of service: 04/16/2018 HISTORY: sob COMPARISON: 04/04/2018 FINDINGS: LUNGS: No active pulmonary disease. PLEURA: No significant pleural effusion identified, no pneumothorax apparent. CARDIOVASCULAR: No radiographic findings to suggest acute or significant cardiovascular disease. Incidental Finding(s): Postoperative changes related to sternotomy. OSSEOUS STRUCTURES: No significant abnormalities. Old healed posterior lateral left rib fractures. VISUALIZED UPPER ABDOMEN: Normal. OTHER FINDINGS: None. IMPRESSION: No active disease. No significant interval change compared to the prior examination(s).
--- NOTE | 2018-04-16 13:38 | CARD ---
APPROVED REPORT Date of service: 04/16/2018 EKG Measurement Heart [id number] 140P65 [id number] <Conclusion> Normal sinus rhythm Early repolarization No change
[2018-04-16 13:40] LABS: EOS % 0.2 % (1.5-5.0); GRAN # 7.98 (1.4-6.5); GRAN % 86.7 % (50.0-68.0); HEMOGLOBIN 12.7 g/dL (14.0-18.0); LYMPH # 0.9 (1.2-3.4); LYMPH % 9.3 % (22.0-35.0); MEAN CELL VOLUME 96.7 fl (80.0-105.0); MEAN CORPUSCULAR HEMOGLOBIN 32.2 pg (25.0-35.0); MEAN CORPUSCULAR HGB CONC 33.3 g/dl (31.0-37.0); MEAN PLATELET VOLUME 8.7 fl (7.0-11.0); MONO # 0.4 (0.1-0.6); MONO % 3.8 % (1.0-6.0); RBC 3.94 10^6/uL (3.5-6.1); WHITE BLOOD COUNT 9.2 10^3/ul (4.5-11.0)
[2018-04-16 13:46] LABS: ALB/GLOB RATIO 1.6 (1.1-1.8); ALBUMIN 4.3 g/dL (3.0-4.8); ALT/SGPT 27 U/L (7-56); AST/SGOT 39 U/L (17-59); BLOOD UREA NITROGEN 21 mg/dL (7-21); CALCIUM 9.2 mg/dL (8.4-10.5); GFR NON-AFRICAN AMERICAN > 60
[2018-04-16 13:58] LABS: TROPONIN I < 0.01 ng/mL
[2018-04-16] MEDS ORDERED: Sodium Bicarbonate (8.4%) 50 Meq Syringe IVP ONE ×2 (14:02→14:37)
[2018-04-16] MEDS ORDERED: Albuterol 0.083% Inhal Sol (2.5 mg/3 mL) UD INH STA (14:02)
[2018-04-16] MEDS ORDERED: Morphine 2 mg/ml ISec IVP STA (14:36)
--- NOTE | 2018-04-16 14:56 | CP.PCM.HP ---
History of Present Illness - History of Present Illness History of Present Illness: PGY-1 Deirdre Vazquez D.O. H&P for Dr. Heath's service: Present on Admission - Present on Admission History of DVT/PE: No History of Uncontrolled Diabetes: No Urinary Catheter: No Decubitus Ulcer Present: No History Surgical Site Infection Following: None Past Patient History - Infectious Disease Hx of Infectious Diseases: None - Tetanus Immunizations Tetanus Immunization: Unknown - Past Medical History & Family History Past Medical History?: Yes - Past Social History Smoking Status: Former Smoker - CARDIAC Hx Cardiac Disorders: Yes (CAD,CABG) Hx Angina: Yes Hx Cardia Arrhythmia: Yes Hx Hypertension: Yes Hx Peripheral Vascular Disease: Yes Other/Comment: Carotid enarterectomy - PULMONARY Hx Respiratory Disorders: Yes Hx Asthma: Yes Hx Chronic Obstructive Pulmonary Disease (COPD): Yes Hx Emphysema: Yes - NEUROLOGICAL Hx Neurological Disorder: Yes Hx Dizziness: Yes Hx Migraine: Yes Hx Transient Ischemic Attacks (TIA): Yes - HEENT Hx HEENT Problems: Yes Hx Cataracts: Yes - RENAL Hx Chronic Kidney Disease: Yes Hx Kidney Stones: Yes - ENDOCRINE/METABOLIC Hx Endocrine Disorders: No - HEMATOLOGICAL/ONCOLOGICAL Hx Blood Disorders: No - INTEGUMENTARY Hx Dermatological Problems: Yes Other/Comment: VARICOSE 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 - MUSCULOSKELETAL/RHEUMATOLOGICAL Hx Musculoskeletal Disorders: Yes Hx Arthritis: Yes Hx Degenerative Joint Disease: Yes Hx Falls: Yes Hx Fractures: Yes (RIB) - GASTROINTESTINAL Hx Gastrointestinal Disorders: Yes (COLITIS,DIVERTICULOSIS) Hx Gastroesophageal Reflux: Yes - GENITOURINARY/GYNECOLOGICAL Hx Genitourinary Disorders: Yes Hx Urinary Tract Infection: Yes - PSYCHIATRIC Hx Psychophysiologic Disorder: Yes (USED TO DRINK ALCOHOL.H/O ETOH ABUSE. QUIT.) Hx Anxiety: Yes Hx Substance Use: No (DENIES) - SURGICAL HISTORY Hx Cardiac Catheterization: Yes (CORONARY STENT) Hx Cholecystectomy: Yes Hx Coronary Stent: Yes Hx Open Heart Surgery: Yes (triple bypass) - ANESTHESIA Hx Anesthesia: Yes Hx Anesthesia Reactions: No Hx Malignant Hyperthermia: No Meds Allergies/Adverse Reactions: Allergies Allergy/AdvReac Type Severity Reaction Status Date / Time shellfish derived Allergy ANAPHYLAXIS Verified 04/16/18 12:44 Sulfa (Sulfonamide Allergy RASH Verified 04/16/18 12:44 Antibiotics) Results - Vital Signs Recent Vital Signs: Last Vital Signs Temp 98.4 F 04/16/18 12:31 Pulse 73 04/16/18 12:31 Resp 14 04/16/18 12:31 BP 96/61 L 04/16/18 12:31 Pulse Ox 100 04/16/18 12:31 - Labs Result Diagrams: 04/16/18 13:30 04/16/18 13:30 Labs: Laboratory Results - last 24 hr 04/16/18 04/16/18 13:30 13:30 WBC 9.2 D RBC 3.94 Hgb 12.7 L Hct 38.1 L MCV 96.7 MCH 32.2 MCHC 33.3 RDW 14.0 Plt Count 254 MPV 8.7 Gran % 86.7 H Lymph % (Auto) 9.3 L [place] % (Auto) 3.8 Eos % (Auto) 0.2 L Baso % (Auto) 0.0 Gran # 7.98 H Lymph # (Auto) 0.9 L [place] # (Auto) 0.4 Eos # (Auto) 0.0 Baso # (Auto) 0.00 Sodium 137 Potassium 5.1 H Chloride 100 Carbon Dioxide 30 Anion Gap 13 BUN 21 Creatinine 0.8 Est GFR ( Amer) > 60 Est GFR (Non-Af Amer) > 60 Random Glucose 96 Calcium 9.2 Magnesium 2.2 Total Bilirubin 0.4 AST 39 ALT 27 Alkaline Phosphatase 55 Troponin I < 0.01 D Total Protein 6.9 Albumin 4.3 Globulin 2.6 Albumin/Globulin Ratio 1.6
--- NOTE | 2018-04-16 15:35 | CP.PCM.HP ---
<Vin Heath - Last Filed: 04/16/18 15:47> History of Present Illness - History of Present Illness History of Present Illness: Vin Heath Internal Medicine Resident- Hospitalist H&P CC: Chest Pain and SOB HPI: Patient is a 63 year old male with past medical history of HTN, COPD, TIA, CAD with stents, CABG, ETOH abuse, and active tobacco abuse who presents to the emergency department for evaluation and treatment of chest pain and shortness of breath which began yesterday while ambulating. States the pain originated in the retrosternal region and radiated to the back. Pain is characterized as a dull aching sensation and is intermittent in nature. Rated an 8/10. Also admits associated SOB and nonproductive cough. Also admits to pain with urination. Denies fever, chills, dizziness, visual/auditory complaints, abdominal pain, vomiting, diarrhea, constipation. 12 point ROS negative except as indicated PMHx: HTN, COPD, TIA, CAD with stents, CABG, EtOH abuse, and active tobacco abuse PSHx: Carotid enarterectomy, cholecystectomy Social Hx: hx of 2 ppd for 30 years, denies illicit drug use, admits to alcohol abuse Medications: carvidolol, atorvastatin, asa, meloxicam, ventolin, albuterol, benzonate, B12, folate, omeprazole; compliance Allergies: Shellfish derived substances, Sulfa Primary Medical Doctor: Dr. Damon Physical Examination: - Constitutional Appears: Non-toxic, No Acute Distress, Unkempt - Head Exam Head Exam: ATRAUMATIC, NORMAL INSPECTION - Eye Exam Eye Exam: EOMI, Normal appearance. absent: Conjunctival injection, Scleral icterus - ENT Exam ENT Exam: Mucous Membranes Moist - Neck Exam Neck exam: Positive for: Full Rom. Negative for: Thyromegaly - Respiratory Exam Respiratory Exam: End-expiratory wheezing diffusely, Chest Wall Tenderness on palpation - Cardiovascular Exam Cardiovascular Exam: Tachycardia, REGULAR RHYTHM, +S1, +S2 - GI/Abdominal Exam GI & Abdominal Exam: Normal Bowel Sounds, Soft. absent: Distended, Rigid, Tenderness - Extremities Exam Extremities exam: Positive for: normal capillary refill, Negative for: calf tenderness, pedal edema, tenderness - Neurological Exam Neurological exam: awake and alert, oriented to self/location/time, responds to verbal stimuli, follows commands, moves extremities past midline - Skin Skin Exam: Dry, Intact, Normal Color, Warm Assessment and Plan: Patient is a 63 year old male with past medical history of HTN, COPD, TIA, CAD with stents, CABG, ETOH abuse, and active tobacco abuse who admitted for evaluation and treatment of chest pain and SOB. Chest pain, Hx of CAD/CABG - Rule out ACS - Trop < 0.01 in ED, trended q6h x 2 - EKG in ED- NSR, Early Repolarization, HR 70bpm, QTc 347ms, - Cardiology consulted- (Dr. Russell) consulted- appreciate recommendations - Continue daily ASA 81mg and Plavix 75mg - Restarting home coreg BID Shortness of breath - Likely secondary to COPD exacerbation secondary to medication noncompliance and tobacco use - Duobnebs q4 scheduled - Continue home symbicort, ventolin - IV Solumedrol 40mg q12 - IV Zithromax for COPD exacerbation coverage Dysuria - UA Hx of HTN -continue home coreg -BP currently controlled in 130's/90's, but if worsens Tobacco abuse - nicotine patch prn tobacco with -encourage cessation of tobacco use Prophylaxis: - DVT- SCDs + subq heparin - GI- famotidine Patient seen, case discussed with, and plan approved by attending physician, Dr. Dickerson Present on Admission - Present on Admission Any Indicators Present on Admission: No Past Patient History - Infectious Disease Hx of Infectious Diseases: None - Tetanus Immunizations Tetanus Immunization: Unknown - Past Medical History & Family History Past Medical History?: Yes - Past Social History Smoking Status: Former Smoker - CARDIAC Hx Cardiac Disorders: Yes (CAD,CABG) Hx Angina: Yes Hx Cardia Arrhythmia: Yes Hx Hypertension: Yes Hx Peripheral Vascular Disease: Yes Other/Comment: Carotid enarterectomy - PULMONARY Hx Respiratory Disorders: Yes Hx Asthma: Yes Hx Chronic Obstructive Pulmonary Disease (COPD): Yes Hx Emphysema: Yes - NEUROLOGICAL Hx Neurological Disorder: Yes Hx Dizziness: Yes Hx Migraine: Yes Hx Transient Ischemic Attacks (TIA): Yes - HEENT Hx HEENT Problems: Yes Hx Cataracts: Yes - RENAL Hx Chronic Kidney Disease: Yes Hx Kidney Stones: Yes - ENDOCRINE/METABOLIC Hx Endocrine Disorders: No - HEMATOLOGICAL/ONCOLOGICAL Hx Blood Disorders: No - INTEGUMENTARY Hx Dermatological Problems: Yes Other/Comment: VARICOSE 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 - MUSCULOSKELETAL/RHEUMATOLOGICAL Hx Musculoskeletal Disorders: Yes Hx Arthritis: Yes Hx Degenerative Joint Disease: Yes Hx Falls: Yes Hx Fractures: Yes (RIB) - GASTROINTESTINAL Hx Gastrointestinal Disorders: Yes (COLITIS,DIVERTICULOSIS) Hx Gastroesophageal Reflux: Yes - GENITOURINARY/GYNECOLOGICAL Hx Genitourinary Disorders: Yes Hx Urinary Tract Infection: Yes - PSYCHIATRIC Hx Psychophysiologic Disorder: Yes (USED TO DRINK ALCOHOL.H/O ETOH ABUSE. QUIT.) Hx Anxiety: Yes Hx Substance Use: No (DENIES) - SURGICAL HISTORY Hx Cardiac Catheterization: Yes (CORONARY STENT) Hx Cholecystectomy: Yes Hx Coronary Stent: Yes Hx Open Heart Surgery: Yes (triple bypass) - ANESTHESIA Hx Anesthesia: Yes Hx Anesthesia Reactions: No Hx Malignant Hyperthermia: No Meds Allergies/Adverse Reactions: Allergies Allergy/AdvReac Type Severity Reaction Status Date / Time shellfish derived Allergy ANAPHYLAXIS Verified 04/16/18 12:44 Sulfa (Sulfonamide Allergy RASH Verified 04/16/18 12:44 Antibiotics) Results - Vital Signs Recent Vital Signs: Last Vital Signs Temp 98.4 F 04/16/18 12:31 Pulse 73 04/16/18 12:31 Resp 14 04/16/18 12:31 BP 96/61 L 04/16/18 12:31 Pulse Ox 100 04/16/18 12:31 - Labs Result Diagrams: 04/16/18 13:30 04/16/18 13:30 Labs: Laboratory Results - last 24 hr 04/16/18 04/16/18 13:30 13:30 WBC 9.2 D RBC 3.94 Hgb 12.7 L Hct 38.1 L MCV 96.7 MCH 32.2 MCHC 33.3 RDW 14.0 Plt Count 254 MPV 8.7 Gran % 86.7 H Lymph % (Auto) 9.3 L [place] % (Auto) 3.8 Eos % (Auto) 0.2 L Baso % (Auto) 0.0 Gran # 7.98 H Lymph # (Auto) 0.9 L [place] # (Auto) 0.4 Eos # (Auto) 0.0 Baso # (Auto) 0.00 Sodium 137 Potassium 5.1 H Chloride 100 Carbon Dioxide 30 Anion Gap 13 BUN 21 Creatinine 0.8 Est GFR ( Amer) > 60 Est GFR (Non-Af Amer) > 60 Random Glucose 96 Calcium 9.2 Magnesium 2.2 Total Bilirubin 0.4 AST 39 ALT 27 Alkaline Phosphatase 55 Troponin I < 0.01 D Total Protein 6.9 Albumin 4.3 Globulin 2.6 Albumin/Globulin Ratio 1.6 <Ministerio Dickerson - Last Filed: 04/17/18 07:14> Results - Vital Signs Recent Vital Signs: Last Vital Signs Temp 97.4 F L 04/16/18 22:15 Pulse 62 04/16/18 22:15 Resp 19 04/16/18 22:15 BP 97/64 L 04/16/18 22:15 Pulse Ox 96 04/16/18 18:46 - Labs Result Diagrams: 04/16/18 13:30 04/16/18 13:30 Labs: Laboratory Results - last 24 hr 04/16/18 04/16/18 04/16/18 13:30 13:30 17:51 WBC 9.2 D RBC 3.94 Hgb 12.7 L Hct 38.1 L MCV 96.7 MCH 32.2 MCHC 33.3 RDW 14.0 Plt Count 254 MPV 8.7 Gran % 86.7 H Lymph % (Auto) 9.3 L [place] % (Auto) 3.8 Eos % (Auto) 0.2 L Baso % (Auto) 0.0 Gran # 7.98 H Lymph # (Auto) 0.9 L [place] # (Auto) 0.4 Eos # (Auto) 0.0 Baso # (Auto) 0.00 Sodium 137 Potassium 5.1 H Chloride 100 Carbon Dioxide 30 Anion Gap 13 BUN 21 Creatinine 0.8 Est GFR ( Amer) > 60 Est GFR (Non-Af Amer) > 60 Random Glucose 96 Calcium 9.2 Magnesium 2.2 Total Bilirubin 0.4 AST 39 ALT 27 Alkaline Phosphatase 55 Lactate Dehydrogenase Total Creatine Kinase Troponin I < 0.01 D Total Protein 6.9 Albumin 4.3 Globulin 2.6 Albumin/Globulin Ratio 1.6 Urine Color Yellow Urine Appearance Clear Urine pH 8.5 Ur Specific [place] 1.015 Urine Protein Trace H Urine Glucose (UA) Negative Urine Ketones Negative Urine Blood Trace-intact H Urine Nitrate Negative Urine Bilirubin Negative Urine Urobilinogen 0.2 Ur Leukocyte Esterase Negative Urine RBC 1 - 3 Urine WBC 10 - 15 Ur Epithelial Cells 3 - 4 Urine Bacteria Mod Alcohol, Quantitative 04/16/18 04/16/18 17:56 23:18 WBC RBC Hgb Hct MCV MCH MCHC RDW Plt Count MPV Gran % Lymph % (Auto) [place] % (Auto) Eos % (Auto) Baso % (Auto) Gran # Lymph # (Auto) [place] # (Auto) Eos # (Auto) Baso # (Auto) Sodium Potassium Chloride Carbon Dioxide Anion Gap BUN Creatinine Est GFR ( Amer) Est GFR (Non-Af Amer) Random Glucose Calcium Magnesium Total Bilirubin AST ALT Alkaline Phosphatase Lactate Dehydrogenase 336 Total Creatine Kinase 34 L Troponin I < 0.01 Total Protein Albumin Globulin Albumin/Globulin Ratio Urine Color Urine Appearance Urine pH Ur Specific [place] Urine Protein Urine Glucose (UA) Urine Ketones Urine Blood Urine Nitrate Urine Bilirubin Urine Urobilinogen Ur Leukocyte Esterase Urine RBC Urine WBC Ur Epithelial Cells Urine Bacteria Alcohol, Quantitative < 10 Attending/Attestation - Attestation I have personally seen and examined this patient.: Yes I have fully participated in the care of the patient.: Yes I have reviewed all pertinent clinical information: Yes Notes (Text): 04/16/18 63 year old male with past medical history of hypertension, COPD, CAD s/p stents s/p CABG, alcohol abuse and active tobacco abuse presents with complaint of chest pain and shortness of breath. Admitted for COPD exacerbation and to rule out ACS. Will obtain serial cardiac enzymes. Cardiology evaluation is requested. Continue with aspirin, plavix and coreg. Will start duonebs, iv steroids and antibiotics. He was counselled on smoking cessation. Ministerio Dickerson MD Hospitalist.
[2018-04-16] MEDS ORDERED: Albuterol-Ipratrop 3 mg / 0.5 (3 ml) UD IH PRN (16:00)
[2018-04-16] MEDS ORDERED: IRON PO SCH (16:15)
[2018-04-16] MEDS ORDERED: methylPREDNISolone 40 MG in Sodium Chloride 0.9% 100 ML IVPB SCH (16:15)
[2018-04-16] MEDS ORDERED: FOLIC ACID PO SCH (16:15)
[2018-04-16] MEDS ORDERED: MULTIVIT MIN PO SCH (16:15)
[2018-04-16] MEDS ORDERED: [UNRECOGNIZED DRUG - OTHER] PO SCH (16:15)
[2018-04-16] MEDS ORDERED: Azithromycin 500MG/NS 250ml 500 MG/250 ML BAG IVPB SCH (16:45)
[2018-04-16] MEDS: Albuterol-Ipratrop 3 mg / 0.5 (3 ml) UD IH SCH (17:10)
[2018-04-16 18:02] LABS: PH,URINE 8.5 (4.7-8.0); URINE BILIRUBIN NEGATIVE (NEGATIVE); URINE BLOOD TRACE-INTACT (NEGATIVE); URINE GLUCOSE (UA) NEGATIVE (NEGATIVE); URINE LEUKOCYTE ESTERASE NEGATIVE Leu/uL (NEGATIVE); URINE PROTEIN TRACE mg/dL (<30 mg/dL); URINE UROBILINOGEN 0.2 E.U./dL (<1 E.U./dL)
[2018-04-16 18:05] LABS: URINE APPEARANCE CLEAR (CLEAR); URINE COLOR YELLOW (YELLOW)
[2018-04-16 18:27] LABS: URINE BACTERIA MOD (NEG)
[2018-04-16] MEDS ORDERED: MethylPREDNISolone 40 mg Vial IVP SCH (22:00)
[2018-04-16] MEDS ORDERED: Pneumococcal 23-Valent Vaccine IM ONE (22:49)
[2018-04-16] MEDS ORDERED: Influenza Vaccine 60 mcg/0.5 mL SYR (4YR UP) IM ONE (22:49)
[2018-04-16 23:49] LABS: TROPONIN I < 0.01 ng/mL
[2018-04-17] MEDS: Albuterol-Ipratrop 3 mg / 0.5 (3 ml) UD IH SCH ×4 (01:16→23:32)
[2018-04-17 07:29] LABS: GRAN # 5.27 (1.4-6.5); GRAN % 75.8 % (50.0-68.0); HEMOGLOBIN 12.8 g/dL (14.0-18.0); LYMPH % 13.6 % (22.0-35.0); MEAN CELL VOLUME 95.5 fl (80.0-105.0); MEAN CORPUSCULAR HEMOGLOBIN 32.2 pg (25.0-35.0); MEAN CORPUSCULAR HGB CONC 33.7 g/dl (31.0-37.0); MEAN PLATELET VOLUME 8.8 fl (7.0-11.0); MONO # 0.7 (0.1-0.6); MONO % 10.6 % (1.0-6.0); RBC 3.98 10^6/uL (3.5-6.1); RED CELL DISTRIBUTION WIDTH 14.1 % (11.5-14.5)
[2018-04-17 07:46] LABS: ALB/GLOB RATIO 1.6 (1.1-1.8); ALBUMIN 3.9 g/dL (3.0-4.8); ALT/SGPT 29 U/L (7-56); AST/SGOT 28 U/L (17-59); BLOOD UREA NITROGEN 22 mg/dL (7-21); CALCIUM 9.3 mg/dL (8.4-10.5); GFR NON-AFRICAN AMERICAN > 60
[2018-04-17 07:51] LABS: TROPONIN I < 0.01 ng/mL
[2018-04-17] MEDS ORDERED: MethylPREDNISolone 40 mg Vial IVP SCH (10:00)
[2018-04-17] MEDS: Azithromycin 500MG/NS 250ml 500 MG/250 ML BAG IVPB SCH (11:19)
[2018-04-17] MEDS: Multivitamin With Minerals Tab PO SCH (13:25)
--- NOTE | 2018-04-17 14:07 | CARD ---
APPROVED REPORT Date of service: 04/17/2018 EKG Measurement Heart [id number] CT 144P52 [id number] <Conclusion> Marked sinus bradycardia Early repolarization LVH by voltage
--- NOTE | 2018-04-17 16:49 | CP.PCM.PN ---
<Airam Mckeon - Last Filed: 04/17/18 16:46> Subjective - Date & Time of Evaluation Date of Evaluation: 04/17/18 Time of Evaluation: 11:00 - Subjective Subjective: Airam Mckeon PGY1 Progress Note for Dr. Dickerson Pt was examined at bedside this morning. He was very angry, complaining of chest pain, shortness of breath, and burning with urination. He also complained of feeling like he was "burning up" in the neck. He also complained of abdominal pain. He denied any diarrhea. Objective - Vital Signs/Intake and Output Vital Signs (last 24 hours): Temp Pulse Resp BP Pulse Ox 97.4 F L 61 19 130/79 96 04/16/18 22:15 04/17/18 14:00 04/16/18 22:15 04/17/18 11:21 04/16/18 18:46 Intake and Output: 04/17/18 04/17/18 06:59 18:59 Intake Total 240 Balance 240 - Medications Medications: Current Medications Albuterol/Ipratropium (Duoneb 3 Mg/0.5 Mg (3 Ml) Ud) 3 ml IH Q2H PRN PRN Reason: Shortness of Breath Aspirin (Ecotrin) 81 mg PO DAILY [facility] Last Admin: 04/17/18 11:22 Dose: 81 mg Atorvastatin Calcium (Lipitor) 40 mg PO DIN [facility] Last Admin: 04/16/18 17:15 Dose: Not Given Carvedilol (Coreg) 12.5 mg PO BID [facility] Last Admin: 04/17/18 11:21 Dose: 12.5 mg Clopidogrel Bisulfate (Plavix) 75 mg PO DAILY [facility] Last Admin: 04/17/18 11:21 Dose: 75 mg Famotidine (Pepcid) 20 mg PO DAILY [facility] Last Admin: 04/17/18 11:22 Dose: 20 mg Heparin Sodium (Porcine) (Heparin) 5,000 units SC Q12 [facility]; Protocol Last Admin: 04/17/18 11:21 Dose: Not Given Azithromycin (Zithromax 500mg In Ns) 500 mg in 250 mls @ 167 mls/hr IVPB DAILY [facility]; Protocol Last Admin: 04/17/18 11:19 Dose: 167 mls/hr Methylprednisolone (Solu-Medrol) 30 mg IVP Q12 [facility] Montelukast Sodium (Singulair) 10 mg PO DAILY [facility] Last Admin: 04/17/18 11:22 Dose: 10 mg Multivitamins/Minerals (Therapeutic-M Tab) 1 tab PO DAILY [facility] Last Admin: 04/17/18 13:25 Dose: 1 tab Nicotine (Nicoderm Cq) 1 patch TD DAILY PRN PRN Reason: URGE TO SMOKE Non-Formulary Medication (Budesonide/Formoterol Fumarate [Symbicort 80-4.5 Mcg Inhaler]) 2 aer IH Q12 [facility] Last Admin: 04/17/18 11:30 Dose: Not Given - Labs Labs: 04/17/18 07:00 04/17/18 07:00 - Constitutional Appears: No Acute Distress - Head Exam Head Exam: ATRAUMATIC, NORMOCEPHALIC - Eye Exam Eye Exam: EOMI Pupil Exam: NORMAL ACCOMODATION - Neck Exam Neck Exam: Normal Inspection - Respiratory Exam Respiratory Exam: Wheezes Additional comments: expiratory wheezes in b/l lung dong - Cardiovascular Exam Cardiovascular Exam: REGULAR RHYTHM, +S1, +S2 - GI/Abdominal Exam GI & Abdominal Exam: Soft, Normal Bowel Sounds. absent: Tenderness - Extremities Exam Extremities Exam: absent: Pedal Edema - Neurological Exam Neurological Exam: Alert, Awake - Psychiatric Exam Psychiatric exam: Anxious - Skin Skin Exam: Normal Color Assessment and Plan - Assessment and Plan (Free Text) Assessment: 63yo M with PMH of HTN, COPD, TIA, CAD with stents, CABG, ETOH abuse, and active tobacco abuse admitted for chest pain and SOB. Plan: Chest pain, r/o ACS - Hx of CAD/CABG - Trop < 0.01 x3 - EKG: sinus fran @48 bpm, early repolarization - continue ASA 81mg - continue Plavix 75mg - continue coreg 12.5mg BID - continue lipitor 40mg - pt not currently on beta josh - Cardio consulted, Dr. Russell - anneliese appreciated Shortness of breath, likely 2/2 COPD exacerbation - pt likely noncompliant with medication, reports tobacco use - pt continues to wheeze, improved slightly - continue duobnebs q4h MAHSA and q2h PRN - continue symbicort - continue ventolin - decrease IV solumedrol to 30mg q12 - continue IV zithromax Hx of HTN - SBP 130s to 97 - continue coreg 12.5mg BID - Cardio consulted, Dr. Russell - recs appreciated Hyperthermic Sensation - pt afebrile - likely secondary to anxiety/mood disorder - ice packs PRN Dysuria - UA negative - pt afebrile Tobacco abuse - nicotine patch prn tobacco - encourage cessation of tobacco use PPX: - SCDs + subq heparin - famotidine Patient seen, case discussed with, and plan approved by attending physician, Dr. Dickerson <Ministerio Dickerson - Last Filed: 04/17/18 18:31> Objective - Vital Signs/Intake and Output Vital Signs (last 24 hours): Temp Pulse Resp BP Pulse Ox 98.0 F 50 L 20 107/64 95 04/17/18 17:38 04/17/18 17:44 04/17/18 17:38 04/17/18 17:44 04/17/18 17:38 Intake and Output: 04/17/18 04/17/18 06:59 18:59 Intake Total 240 Balance 240 - Medications Medications: Current Medications Albuterol/Ipratropium (Duoneb 3 Mg/0.5 Mg (3 Ml) Ud) 3 ml IH Q2H PRN PRN Reason: Shortness of Breath Albuterol/Ipratropium (Duoneb 3 Mg/0.5 Mg (3 Ml) Ud) 3 ml IH [id number] [facility] Aspirin (Ecotrin) 81 mg PO DAILY [facility] Last Admin: 04/17/18 11:22 Dose: 81 mg Atorvastatin Calcium (Lipitor) 40 mg PO DIN [facility] Last Admin: 04/17/18 17:52 Dose: 40 mg Carvedilol (Coreg) 12.5 mg PO BID [facility] Last Admin: 04/17/18 17:44 Dose: Not Given Clopidogrel Bisulfate (Plavix) 75 mg PO DAILY [facility] Last Admin: 04/17/18 11:21 Dose: 75 mg Famotidine (Pepcid) 20 mg PO DAILY [facility] Last Admin: 04/17/18 11:22 Dose: 20 mg Heparin Sodium (Porcine) (Heparin) 5,000 units SC Q12 [facility]; Protocol Last Admin: 04/17/18 11:21 Dose: Not Given Azithromycin (Zithromax 500mg In Ns) 500 mg in 250 mls @ 167 mls/hr IVPB DAILY [facility]; Protocol Last Admin: 04/17/18 11:19 Dose: 167 mls/hr Methylprednisolone (Solu-Medrol) 30 mg IVP Q12 [facility] Montelukast Sodium (Singulair) 10 mg PO DAILY [facility] Last Admin: 04/17/18 11:22 Dose: 10 mg Multivitamins/Minerals (Therapeutic-M Tab) 1 tab PO DAILY [facility] Last Admin: 04/17/18 13:25 Dose: 1 tab Nicotine (Nicoderm Cq) 1 patch TD DAILY PRN PRN Reason: URGE TO SMOKE Non-Formulary Medication (Budesonide/Formoterol Fumarate [Symbicort 80-4.5 Mcg Inhaler]) 2 aer IH Q12 [facility] Last Admin: 04/17/18 11:30 Dose: Not Given - Labs Labs: 04/17/18 07:00 04/17/18 07:00 Attending/Attestation - Attestation I have personally seen and examined this patient.: Yes I have fully participated in the care of the patient.: Yes I have reviewed all pertinent clinical information, including history, physical exam and plan: Yes Notes (Text): 04/17/18 18:29 63 year old male with past medical history of hypertension, COPD, CAD s/p stents, s/p recent RCA stent, s/p CABG, alcohol abuse and active tobacco abuse who presented with complaint of chest pain and shortness of breath secondary to COPD exacerbation. Serial cardiac enzymes were negative and ACS has been ruled out. Cardiology evaluation was requested. Continue with aspirin, plavix, statin and coreg. Continue with duonebs, iv steroids and antibiotics. He was counselled on smoking cessation. Ministerio Dickerson MD Hospitalist.
[2018-04-17] MEDS: MethylPREDNISolone 40 mg Vial IVP SCH (21:18)
--- NOTE | 2018-04-18 04:24 | CON ---
DATE: 04/17/2018 CARDIOLOGY CONSULTATION REASON FOR CONSULTATION: Chest pain. HISTORY OF PRESENT ILLNESS: The patient is a 63-year-old male who has history of coronary artery disease, status post coronary artery bypass surgery many years ago at [facility] according to the patient, history of recent coronary artery stenting. On the 04/04, i.e. almost two weeks ago, patient underwent cardiac catheterization, was found to have patent BALLARD to the LAD, patent saphenous vein graft to the ramus with 95% stenosis at the anastomotic site, patent saphenous vein graft to obtuse marginal branch 1 and patent saphenous vein graft to right coronary artery with normal ejection fraction. Patient underwent successful PTCA with drug-eluting stent to saphenous vein graft to the ramus intermedius artery. Patient claims to have been compliant with his medications and he presents with the chest discomfort, which is retrosternal. SOCIAL HISTORY: Patient is a smoker, drinker and tested positive for opiates during the last admission. MEDICATIONS: Coreg 12.5 mg twice a day, albuterol inhaler, aspirin 81 mg once a day, heparin 5000 units subcutaneous twice a day, Lipitor 40 mg once a day, Nicoderm patch, Singulair 10 mg once a day, Solu-Medrol 30 mg intravenously every 12 hours, Zithromax 500 mg intravenously daily. PHYSICAL EXAMINATION: GENERAL: The patient is an elderly male who does not appear to be in any acute distress. VITAL SIGNS: Blood pressure 107/64, heart rate 50, temperature 98, respirations 20. HEENT: Normocephalic. CHEST: Bilateral rhonchi. HEART: S1, S2 regular. EXTREMITIES: No edema. DIAGNOSTIC DATA: EKG revealed sinus bradycardia at a rate of 48, early repolarization changes. LABORATORY DATA: Today's SMA-7 is within normal limit except BUN is 22. Three sets of troponins are negative. TSH level is within normal limit. Hemoglobin and hematocrit 12.8 and 38. White count and platelet count are within normal limit. ASSESSMENT: 1. Chest pain, myocardial infarction is ruled out. 2. History of recent drug-eluting stenting to the saphenous vein graft to the ramus intermedius artery. 3. Chronic obstructive lung disease. 4. Sinus bradycardia. RECOMMENDATIONS: Continue Lopressor at 40 mg daily, subcutaneous heparin 5000 units every 12 hours, aspirin at 81 mg once a day, Solu-Medrol 30 mg intravenously every 12 hours. It seems that the patient was not taking Plavix as it is not listed in his home medications. Continue Plavix 75 mg daily. Mike Young MD
[2018-04-18] MEDS: Albuterol-Ipratrop 3 mg / 0.5 (3 ml) UD IH SCH ×5 (06:07→19:58)
[2018-04-18] MEDS: Azithromycin 500MG/NS 250ml 500 MG/250 ML BAG IVPB SCH (09:24)
[2018-04-18] MEDS: MethylPREDNISolone 40 mg Vial IVP SCH ×2 (09:25→21:18)
[2018-04-18] MEDS: Multivitamin With Minerals Tab PO SCH (09:25)
--- NOTE | 2018-04-18 14:49 | PN ---
DATE: 04/18/2018 SUBJECTIVE: The patient is experiencing shortness of breath. He denies chest pain. I did review the medication labels that the patient had in his pocket which included Plavix 75 mg daily and the patient stated that he was taking it. PHYSICAL EXAMINATION: VITAL SIGNS: Blood pressure 107/64, heart rate 50, temperature 98, respirations 20. HEENT: Normocephalic. CHEST: Bilateral rhonchi. HEART: S1 and S2 regular. EXTREMITIES: No edema. ASSESSMENT: 1. Chest pain, myocardial infarction is ruled out. 2. Status post recent drug-eluting stenting to saphenous vein graft to ramus intermedius artery. 3. Chronic obstructive lung disease. 4. Sinus bradycardia. RECOMMENDATIONS: Discontinue Coreg. Continue aspirin 81 mg once a day, Lipitor 40 mg once a day, Plavix 75 mg once a day, IV Zithromax 500 mg daily. Mike Young MD
--- NOTE | 2018-04-18 16:34 | CP.PCM.PN ---
<Airam Mckeon - Last Filed: 04/18/18 16:31> Subjective - Date & Time of Evaluation Date of Evaluation: 04/18/18 Time of Evaluation: 10:00 - Subjective Subjective: Airam Mckeon PGY1 Progress Note for Dr. Dickerson Pt was examined at bedside this morning. He reports continuation of his chest pain and shortness of breath. He also complains of abdominal pain and dysuria. Pt denies any diarrhea, constipation, nausea, or vomiting. Objective - Vital Signs/Intake and Output Vital Signs (last 24 hours): Temp Pulse Resp BP Pulse Ox 98.0 F 64 20 107/64 95 04/17/18 17:38 04/18/18 14:00 04/17/18 17:38 04/17/18 17:44 04/17/18 17:38 Intake and Output: 04/18/18 04/18/18 06:59 18:59 Output Total 200 Balance -200 - Medications Medications: Current Medications Acetaminophen (Tylenol 325mg Tab) 650 mg PO Q6H PRN PRN Reason: Fever >100.4 F Last Admin: 04/18/18 16:07 Dose: 650 mg Albuterol/Ipratropium (Duoneb 3 Mg/0.5 Mg (3 Ml) Ud) 3 ml IH Q2H PRN PRN Reason: Shortness of Breath Albuterol/Ipratropium (Duoneb 3 Mg/0.5 Mg (3 Ml) Ud) 3 ml IH [id number] [facility] Last Admin: 04/18/18 15:36 Dose: 3 ml Aspirin (Ecotrin) 81 mg PO DAILY [facility] Last Admin: 04/18/18 09:25 Dose: 81 mg Atorvastatin Calcium (Lipitor) 40 mg PO DIN [facility] Last Admin: 04/18/18 16:07 Dose: 40 mg Azithromycin (Zithromax) 500 mg PO DAILY [facility] Stop: 04/20/18 10:01 Clopidogrel Bisulfate (Plavix) 75 mg PO DAILY [facility] Last Admin: 04/18/18 09:25 Dose: 75 mg Famotidine (Pepcid) 20 mg PO DAILY [facility] Last Admin: 04/18/18 09:25 Dose: 20 mg Heparin Sodium (Porcine) (Heparin) 5,000 units SC Q12 [facility]; Protocol Last Admin: 04/18/18 09:25 Dose: Not Given Methylprednisolone (Solu-Medrol) 30 mg IVP Q12 [facility] Last Admin: 04/18/18 09:25 Dose: 30 mg Montelukast Sodium (Singulair) 10 mg PO DAILY [facility] Last Admin: 04/18/18 09:25 Dose: 10 mg Multivitamins/Minerals (Therapeutic-M Tab) 1 tab PO DAILY [facility] Last Admin: 04/18/18 09:25 Dose: 1 tab Nicotine (Nicoderm Cq) 1 patch TD DAILY PRN PRN Reason: URGE TO SMOKE Non-Formulary Medication (Budesonide/Formoterol Fumarate [Symbicort 80-4.5 Mcg Inhaler]) 2 aer IH Q12 [facility] Last Admin: 04/18/18 09:26 Dose: Not Given - Labs Labs: 04/17/18 07:00 04/17/18 07:00 - Constitutional Appears: Well, No Acute Distress - Head Exam Head Exam: ATRAUMATIC, NORMOCEPHALIC - Eye Exam Eye Exam: EOMI, Normal appearance Pupil Exam: NORMAL ACCOMODATION - ENT Exam ENT Exam: Mucous Membranes Moist, Normal Exam - Neck Exam Neck Exam: Normal Inspection. absent: Tenderness - Respiratory Exam Respiratory Exam: Wheezes. absent: Accessory Muscle Use, Decreased Breath Sounds, Rhonchi, Stridor Additional comments: b/l expiratory wheezes, markedly improved - Cardiovascular Exam Cardiovascular Exam: REGULAR RHYTHM, +S1, +S2. absent: Gallop, Rubs, Murmur - GI/Abdominal Exam GI & Abdominal Exam: Soft, Tenderness, Normal Bowel Sounds. absent: Distended, Guarding Additional comments: nonspecific tenderness to palpation of all 4 quadrants - Extremities Exam Extremities Exam: Normal Inspection. absent: Calf Tenderness, Pedal Edema - Neurological Exam Neurological Exam: Alert, Awake, Oriented x3 - Psychiatric Exam Psychiatric exam: Anxious. absent: Agitated, Depressed, Manic - Skin Skin Exam: Normal Color. absent: Cyanosis Assessment and Plan - Assessment and Plan (Free Text) Assessment: 63yo M with PMH of HTN, COPD, TIA, CAD with stents, CABG, ETOH abuse, and active tobacco abuse admitted for chest pain and SOB. Plan: Chest pain - Hx of CAD/CABG - Trop < 0.01 x3 - EKG 04/17: sinus fran @48 bpm, early repolarization - continue ASA 81mg - continue Plavix 75mg - d/c coreg 12.5mg BID, as per cardio - continue lipitor 40mg - pt not currently on beta josh - Cardio consulted, Dr. Yvonne coy appreciated Shortness of breath, likely 2/2 COPD exacerbation - pt likely noncompliant with medication, reports tobacco use - pt continues to wheeze, markedly improved - continue duobnebs q4h MAHSA and q2h PRN - continue symbicort - continue ventolin - decrease IV solumedrol to 20mg q12 - continue IV zithromax Hx of HTN - HR 47-54 - d/c coreg 12.5mg BID - Cardio consulted, Dr. Yvonne coy appreciated Dysuria - UA negative - pt afebrile Tobacco abuse - nicotine patch prn tobacco - encourage cessation of tobacco use PPX: - SCDs + subq heparin - famotidine Patient seen, case discussed with, and plan approved by attending physician, Dr. Dickerson <Ministerio Dickerson - Last Filed: 04/18/18 17:05> Objective - Vital Signs/Intake and Output Vital Signs (last 24 hours): Temp Pulse Resp BP Pulse Ox 98.0 F 64 20 107/64 95 04/17/18 17:38 04/18/18 14:00 04/17/18 17:38 04/17/18 17:44 04/17/18 17:38 Intake and Output: 04/18/18 04/18/18 06:59 18:59 Output Total 200 Balance -200 - Medications Medications: Current Medications Acetaminophen (Tylenol 325mg Tab) 650 mg PO Q6H PRN PRN Reason: Fever >100.4 F Last Admin: 04/18/18 16:07 Dose: 650 mg Albuterol/Ipratropium (Duoneb 3 Mg/0.5 Mg (3 Ml) Ud) 3 ml IH Q2H PRN PRN Reason: Shortness of Breath Albuterol/Ipratropium (Duoneb 3 Mg/0.5 Mg (3 Ml) Ud) 3 ml IH [id number] [facility] Last Admin: 04/18/18 15:36 Dose: 3 ml Aspirin (Ecotrin) 81 mg PO DAILY [facility] Last Admin: 04/18/18 09:25 Dose: 81 mg Atorvastatin Calcium (Lipitor) 40 mg PO DIN [facility] Last Admin: 04/18/18 16:07 Dose: 40 mg Azithromycin (Zithromax) 500 mg PO DAILY [facility] Stop: 04/20/18 10:01 Clopidogrel Bisulfate (Plavix) 75 mg PO DAILY [facility] Last Admin: 04/18/18 09:25 Dose: 75 mg Famotidine (Pepcid) 20 mg PO DAILY [facility] Last Admin: 04/18/18 09:25 Dose: 20 mg Heparin Sodium (Porcine) (Heparin) 5,000 units SC Q12 [facility]; Protocol Last Admin: 04/18/18 09:25 Dose: Not Given Methylprednisolone (Solu-Medrol) 20 mg IVP Q12 [facility] Montelukast Sodium (Singulair) 10 mg PO DAILY [facility] Last Admin: 04/18/18 09:25 Dose: 10 mg Multivitamins/Minerals (Therapeutic-M Tab) 1 tab PO DAILY [facility] Last Admin: 04/18/18 09:25 Dose: 1 tab Nicotine (Nicoderm Cq) 1 patch TD DAILY PRN PRN Reason: URGE TO SMOKE Non-Formulary Medication (Budesonide/Formoterol Fumarate [Symbicort 80-4.5 Mcg Inhaler]) 2 aer IH Q12 [facility] Last Admin: 04/18/18 09:26 Dose: Not Given - Labs Labs: 04/17/18 07:00 04/17/18 07:00 Attending/Attestation - Attestation I have personally seen and examined this patient.: Yes I have fully participated in the care of the patient.: Yes I have reviewed all pertinent clinical information, including history, physical exam and plan: Yes Notes (Text): 04/18/18 17:04 63 year old male with past medical history of hypertension, COPD, CAD s/p sten ts, s/p recent RCA stent, s/p CABG, alcohol abuse and active tobacco abuse who presented with complaint of chest pain and shortness of breath secondary to COPD exacerbation. Serial cardiac enzymes were negative and ACS has been ruled out. Cardiology evaluation was appreciated. Continue with aspirin, plavix, and statin. Coreg was discontinued today secondary to bradycardia. Continue with duonebs, iv steroids and antibiotics. His wheezing is slowly improving and his steroids are being tapered. He was counselled on smoking cessation. Ministerio Dickerson MD Hospitalist.
[2018-04-19] MEDS: Albuterol-Ipratrop 3 mg / 0.5 (3 ml) UD IH SCH ×7 (01:46→20:45)
[2018-04-19] MEDS: MethylPREDNISolone 40 mg Vial IVP SCH ×3 (09:55→21:43)
[2018-04-19] MEDS: Multivitamin With Minerals Tab PO SCH (09:55)
--- NOTE | 2018-04-19 14:17 | CP.PCM.PN ---
<Airam Mckeon - Last Filed: 04/19/18 14:12> Subjective - Date & Time of Evaluation Date of Evaluation: 04/19/18 Time of Evaluation: 14:12 - Subjective Subjective: Airam Mckeon PGY1 Progress note for Dr. Dickerson Pt was examined at bedside this morning. He reported chest pain, shortness of breath, burning sensation on neck, and abdominal pain. Pt reports resolution of his dysuria, denies diarrhea. Objective - Vital Signs/Intake and Output Vital Signs (last 24 hours): Temp Pulse Resp BP Pulse Ox 98.6 F 65 20 109/71 100 04/18/18 17:22 04/19/18 10:00 04/18/18 17:22 04/18/18 17:22 04/18/18 17:22 Intake and Output: 04/19/18 04/19/18 06:59 18:59 Intake Total 120 Output Total 1600 Balance -1480 - Medications Medications: Current Medications Acetaminophen (Tylenol 325mg Tab) 650 mg PO Q6H PRN PRN Reason: Fever >100.4 F Last Admin: 04/19/18 10:42 Dose: 650 mg Albuterol/Ipratropium (Duoneb 3 Mg/0.5 Mg (3 Ml) Ud) 3 ml IH Q2H PRN PRN Reason: Shortness of Breath Albuterol/Ipratropium (Duoneb 3 Mg/0.5 Mg (3 Ml) Ud) 3 ml IH [id number] [facility] Last Admin: 04/19/18 11:12 Dose: 3 ml Aspirin (Ecotrin) 81 mg PO DAILY [facility] Last Admin: 04/19/18 10:42 Dose: 81 mg Atorvastatin Calcium (Lipitor) 40 mg PO DIN [facility] Last Admin: 04/18/18 16:07 Dose: 40 mg Azithromycin (Zithromax) 500 mg PO DAILY [facility] Stop: 04/20/18 10:01 Last Admin: 04/19/18 10:38 Dose: 500 mg Clopidogrel Bisulfate (Plavix) 75 mg PO DAILY [facility] Last Admin: 04/19/18 10:42 Dose: 75 mg Heparin Sodium (Porcine) (Heparin) 5,000 units SC Q12 [facility]; Protocol Last Admin: 04/19/18 09:54 Dose: Not Given Methylprednisolone (Solu-Medrol) 20 mg IVP Q12 [facility] Last Admin: 04/19/18 10:42 Dose: 20 mg Montelukast Sodium (Singulair) 10 mg PO DAILY [facility] Last Admin: 04/19/18 10:42 Dose: 10 mg Multivitamins/Minerals (Therapeutic-M Tab) 1 tab PO DAILY [facility] Last Admin: 04/19/18 09:55 Dose: Not Given Nicotine (Nicoderm Cq) 1 patch TD DAILY PRN PRN Reason: URGE TO SMOKE Non-Formulary Medication (Budesonide/Formoterol Fumarate [Symbicort 80-4.5 Mcg Inhaler]) 2 aer IH Q12 [facility] Last Admin: 04/19/18 09:53 Dose: Not Given Pantoprazole Sodium (Protonix Ec Tab) 40 mg PO BID [facility] - Labs Labs: 04/17/18 07:00 04/17/18 07:00 - Constitutional Appears: Well, No Acute Distress - Head Exam Head Exam: ATRAUMATIC, NORMOCEPHALIC - Eye Exam Eye Exam: EOMI, Normal appearance Pupil Exam: NORMAL ACCOMODATION - Respiratory Exam Respiratory Exam: Rhonchi, Wheezes. absent: Accessory Muscle Use, Rales, Respiratory Distress, Stridor Additional comments: b/l expiratory wheezes in upper and lower lung dong - Cardiovascular Exam Cardiovascular Exam: REGULAR RHYTHM, +S1, +S2. absent: Gallop, Rubs, Murmur - GI/Abdominal Exam GI & Abdominal Exam: Soft, Tenderness, Normal Bowel Sounds. absent: Distended, Firm Additional comments: nonspecific tenderness to 4 quadrants - Extremities Exam Extremities Exam: Normal Inspection. absent: Pedal Edema - Neurological Exam Neurological Exam: Alert, Awake, Oriented x3 - Psychiatric Exam Psychiatric exam: Agitated, Anxious. absent: Normal Affect, Normal Mood - Skin Skin Exam: absent: Cyanosis, Pallor Assessment and Plan - Assessment and Plan (Free Text) Assessment: 63yo M with PMH of HTN, COPD, TIA, CAD with stents, CABG, ETOH abuse, and active tobacco abuse admitted for chest pain and SOB. Plan: Chest pain - Hx of CAD/CABG - Trop < 0.01 x3 - continue ASA 81mg - continue Plavix 75mg - continue lipitor 40mg - Cardio consulted, Dr. Russell - recs appreciated Shortness of breath, likely 2/2 COPD exacerbation - pt likely noncompliant with medication, reports tobacco use - pt continues to wheeze - continue duobnebs q4h MAHSA and q2h PRN - continue symbicort - continue ventolin - continue IV solumedrol to 20mg q12 - continue IV zithromax Hx of HTN - HR 55-65 - Cardio consulted, Dr. Russell - recs appreciated Abdominal Pain - nonspecific, possibly GERD - protonix 20 BID Tobacco abuse - nicotine patch prn tobacco - encourage cessation of tobacco use PPX: - SCDs + subq heparin - famotidine Patient seen, case discussed with, and plan approved by attending physician, Dr. Dickerson <Ministerio Dickerson - Last Filed: 04/19/18 16:26> Objective - Vital Signs/Intake and Output Vital Signs (last 24 hours): Temp Pulse Resp BP Pulse Ox 98.6 F 77 20 109/71 100 04/18/18 17:22 04/19/18 14:00 04/18/18 17:22 04/18/18 17:22 04/18/18 17:22 Intake and Output: 04/19/18 04/19/18 06:59 18:59 Intake Total 120 Output Total 1600 Balance -1480 - Medications Medications: Current Medications Acetaminophen (Tylenol 325mg Tab) 650 mg PO Q6H PRN PRN Reason: Fever >100.4 F Last Admin: 04/19/18 10:42 Dose: 650 mg Albuterol/Ipratropium (Duoneb 3 Mg/0.5 Mg (3 Ml) Ud) 3 ml IH Q2H PRN PRN Reason: Shortness of Breath Albuterol/Ipratropium (Duoneb 3 Mg/0.5 Mg (3 Ml) Ud) 3 ml IH [id number] [facility] Last Admin: 04/19/18 15:12 Dose: Not Given Aspirin (Ecotrin) 81 mg PO DAILY [facility] Last Admin: 04/19/18 10:42 Dose: 81 mg Atorvastatin Calcium (Lipitor) 40 mg PO DIN [facility] Last Admin: 04/18/18 16:07 Dose: 40 mg Azithromycin (Zithromax) 500 mg PO DAILY [facility] Stop: 04/20/18 10:01 Last Admin: 04/19/18 10:38 Dose: 500 mg Clopidogrel Bisulfate (Plavix) 75 mg PO DAILY [facility] Last Admin: 04/19/18 10:42 Dose: 75 mg Heparin Sodium (Porcine) (Heparin) 5,000 units SC Q12 [facility]; Protocol Last Admin: 04/19/18 09:54 Dose: Not Given Methylprednisolone (Solu-Medrol) 20 mg IVP Q12 [facility] Last Admin: 04/19/18 10:42 Dose: 20 mg Montelukast Sodium (Singulair) 10 mg PO DAILY [facility] Last Admin: 04/19/18 10:42 Dose: 10 mg Multivitamins/Minerals (Therapeutic-M Tab) 1 tab PO DAILY [facility] Last Admin: 04/19/18 09:55 Dose: Not Given Nicotine (Nicoderm Cq) 1 patch TD DAILY PRN PRN Reason: URGE TO SMOKE Non-Formulary Medication (Budesonide/Formoterol Fumarate [Symbicort 80-4.5 Mcg Inhaler]) 2 aer IH Q12 [facility] Last Admin: 04/19/18 09:53 Dose: Not Given Pantoprazole Sodium (Protonix Ec Tab) 20 mg PO 0600,1600 [facility] - Labs Labs: 04/17/18 07:00 04/17/18 07:00 Attending/Attestation - Attestation I have personally seen and examined this patient.: Yes I have fully participated in the care of the patient.: Yes I have reviewed all pertinent clinical information, including history, physical exam and plan: Yes Notes (Text): 04/19/18 16:25 63 year old male with past medical history of hypertension, COPD, CAD s/p stents, s/p recent RCA stent, s/p CABG, alcohol abuse and active tobacco abuse who presented with complaint of chest pain and shortness of breath secondary to COPD exacerbation. Serial cardiac enzymes were negative and ACS has been ruled out. Cardiology is following. Continue with aspirin, plavix, and statin. Coreg was discontinued yesterday due to bradycardia which has improved. Continue with duonebs, iv steroids and antibiotics. Still wheezing today. He was counselled on smoking cessation. Ministerio Dickerson MD Hospitalist.
--- NOTE | 2018-04-19 15:09 | PN ---
DATE: 04/19/2018 FOLLOWUP SUBJECTIVE: The patient denies any chest pain. The patient is mildly short of breath. PHYSICAL EXAMINATION: VITAL SIGNS: Blood pressure 109/71, heart rate 61, temperature 98.6, respirations 20. HEENT: Normocephalic. CHEST: Bilateral rhonchi. HEART: S1 and S2 regular. EXTREMITIES: No edema. ASSESSMENT: 1. Coronary artery disease with status post recent coronary artery stenting of the saphenous vein graft through ramus intermedius artery. 2. Chronic obstructive lung disease. 3. Sinus bradycardia. RECOMMENDATIONS: Continue current albuterol inhaler, aspirin 81 mg once a day, Lipitor 40 mg once a day, Solu-Medrol 20 mg intravenously twice a day, Zithromax 500 mg once a day, Plavix 75 mg once a day. Mike Young MD
[2018-04-19] MEDS: Pantoprazole 20 mg EC Tab PO SCH (16:43)
[2018-04-19] MEDS ORDERED: Pantoprazole 40 mg EC Tab PO SCH (18:00)
[2018-04-20] MEDS: Albuterol-Ipratrop 3 mg / 0.5 (3 ml) UD IH SCH ×6 (00:05→19:31)
[2018-04-20] MEDS: Pantoprazole 20 mg EC Tab PO SCH ×2 (05:49→16:36)
[2018-04-20] MEDS: MethylPREDNISolone 40 mg Vial IVP SCH ×2 (09:38→22:18)
[2018-04-20] MEDS: Multivitamin With Minerals Tab PO SCH (09:39)
--- NOTE | 2018-04-20 12:11 | CP.PCM.PN ---
<Airam Mckeon - Last Filed: 04/20/18 12:08> Subjective - Date & Time of Evaluation Date of Evaluation: 04/20/18 Time of Evaluation: 12:08 - Subjective Subjective: Airam Mckeon PGY1 Progress Note for Dr. Dickerson Pt examined at bedside this morning. He reports continuation of his chest pain, shortness of breath, and abdominal pain. He also reported coughing up some yellow sputum. He denied any nausea, vomiting, diarrhea. Objective - Vital Signs/Intake and Output Vital Signs (last 24 hours): Temp Pulse Resp BP Pulse Ox 98.6 F 94 H 20 102/57 L 97 04/19/18 17:20 04/20/18 09:59 04/19/18 17:20 04/19/18 17:20 04/19/18 17:20 Intake and Output: 04/20/18 04/20/18 06:59 18:59 Intake Total 0 Output Total 800 Balance -800 - Medications Medications: Current Medications Acetaminophen (Tylenol 325mg Tab) 650 mg PO Q6H PRN PRN Reason: Fever >100.4 F Last Admin: 04/19/18 10:42 Dose: 650 mg Albuterol/Ipratropium (Duoneb 3 Mg/0.5 Mg (3 Ml) Ud) 3 ml IH Q2H PRN PRN Reason: Shortness of Breath Albuterol/Ipratropium (Duoneb 3 Mg/0.5 Mg (3 Ml) Ud) 3 ml IH [id number] [facility] Last Admin: 04/20/18 08:42 Dose: 3 ml Aspirin (Ecotrin) 81 mg PO DAILY [facility] Last Admin: 04/20/18 09:38 Dose: 81 mg Atorvastatin Calcium (Lipitor) 40 mg PO DIN [facility] Last Admin: 04/19/18 16:43 Dose: 40 mg Clopidogrel Bisulfate (Plavix) 75 mg PO DAILY [facility] Last Admin: 04/20/18 09:38 Dose: 75 mg Heparin Sodium (Porcine) (Heparin) 5,000 units SC Q12 [facility]; Protocol Last Admin: 04/20/18 09:39 Dose: Not Given Ibuprofen (Motrin Tab) 400 mg PO Q6H PRN PRN Reason: Pain, moderate (4-7) Methylprednisolone (Solu-Medrol) 10 mg IVP Q12 [facility] Montelukast Sodium (Singulair) 10 mg PO DAILY [facility] Last Admin: 04/20/18 09:38 Dose: 10 mg Multivitamins/Minerals (Therapeutic-M Tab) 1 tab PO DAILY [facility] Last Admin: 04/20/18 09:39 Dose: 1 tab Nicotine (Nicoderm Cq) 1 patch TD DAILY PRN PRN Reason: URGE TO SMOKE Non-Formulary Medication (Budesonide/Formoterol Fumarate [Symbicort 80-4.5 Mcg Inhaler]) 2 aer IH Q12 [facility] Last Admin: 04/20/18 09:39 Dose: Not Given Pantoprazole Sodium (Protonix Ec Tab) 20 mg PO 0600,1600 [facility] Last Admin: 04/20/18 05:49 Dose: Not Given - Labs Labs: 04/17/18 07:00 04/17/18 07:00 - Constitutional Appears: Well, No Acute Distress - Head Exam Head Exam: ATRAUMATIC, NORMOCEPHALIC - Eye Exam Eye Exam: EOMI, Normal appearance, PERRL Pupil Exam: NORMAL ACCOMODATION - ENT Exam ENT Exam: Normal Exam - Neck Exam Neck Exam: Normal Inspection. absent: Lymphadenopathy - Respiratory Exam Respiratory Exam: Wheezes, NORMAL BREATHING PATTERN. absent: Rales, Rhonchi Additional comments: b/l expiratory wheezes, improved - Cardiovascular Exam Cardiovascular Exam: REGULAR RHYTHM, +S1, +S2. absent: Gallop, Rubs, Murmur - GI/Abdominal Exam GI & Abdominal Exam: Soft, Tenderness, Normal Bowel Sounds. absent: Distended, Firm, Guarding Additional comments: nonspecific tenderness in all 4 quadrants - Extremities Exam Extremities Exam: Normal Inspection. absent: Pedal Edema - Neurological Exam Neurological Exam: Alert, Awake, Oriented x3 - Psychiatric Exam Psychiatric exam: Agitated, Anxious. absent: Depressed Assessment and Plan - Assessment and Plan (Free Text) Assessment: 63yo M with PMH of HTN, COPD, TIA, CAD with stents, CABG, ETOH abuse, and active tobacco abuse admitted for chest pain and SOB. Plan: Chest pain - Hx of CAD/CABG - Trop < 0.01 x3 - ACS ruled out - likely due to anxiety - continue ASA 81mg - continue Plavix 75mg - continue lipitor 40mg - Cardio consulted, Dr. Russell - recs appreciated Shortness of breath, likely 2/2 COPD exacerbation - pt likely noncompliant with medication at home, reports tobacco use - wheezing improved - continue duobnebs q4h MAHSA and q2h PRN - continue symbicort - continue ventolin - decrease IV solumedrol to 10mg q12 - continue IV zithromax Hx of HTN - HR 94 - Cardio consulted, Dr. Russell - recs appreciated Abdominal Pain - nonspecific, possibly GERD - protonix 20 BID Tobacco abuse - nicotine patch prn tobacco - encourage cessation of tobacco use PPX: - SCDs + subq heparin - famotidine Patient seen, case discussed with, and plan approved by attending physician, Dr. Dickerson <Ministerio Dickerson - Last Filed: 04/20/18 13:08> Objective - Vital Signs/Intake and Output Vital Signs (last 24 hours): Temp Pulse Resp BP Pulse Ox 98.6 F 94 H 20 102/57 L 97 04/19/18 17:20 04/20/18 09:59 04/19/18 17:20 04/19/18 17:20 04/19/18 17:20 Intake and Output: 04/20/18 04/20/18 06:59 18:59 Intake Total 0 Output Total 800 Balance -800 - Medications Medications: Current Medications Acetaminophen (Tylenol 325mg Tab) 650 mg PO Q6H PRN PRN Reason: Fever >100.4 F Last Admin: 04/19/18 10:42 Dose: 650 mg Albuterol/Ipratropium (Duoneb 3 Mg/0.5 Mg (3 Ml) Ud) 3 ml IH Q2H PRN PRN Reason: Shortness of Breath Albuterol/Ipratropium (Duoneb 3 Mg/0.5 Mg (3 Ml) Ud) 3 ml IH [id number] [facility] Last Admin: 04/20/18 08:42 Dose: 3 ml Aspirin (Ecotrin) 81 mg PO DAILY [facility] Last Admin: 04/20/18 09:38 Dose: 81 mg Atorvastatin Calcium (Lipitor) 40 mg PO DIN [facility] Last Admin: 04/19/18 16:43 Dose: 40 mg Clopidogrel Bisulfate (Plavix) 75 mg PO DAILY [facility] Last Admin: 04/20/18 09:38 Dose: 75 mg Heparin Sodium (Porcine) (Heparin) 5,000 units SC Q12 [facility]; Protocol Last Admin: 04/20/18 09:39 Dose: Not Given Ibuprofen (Motrin Tab) 400 mg PO Q6H PRN PRN Reason: Pain, moderate (4-7) Methylprednisolone (Solu-Medrol) 10 mg IVP Q12 [facility] Montelukast Sodium (Singulair) 10 mg PO DAILY [facility] Last Admin: 04/20/18 09:38 Dose: 10 mg Multivitamins/Minerals (Therapeutic-M Tab) 1 tab PO DAILY [facility] Last Admin: 04/20/18 09:39 Dose: 1 tab Nicotine (Nicoderm Cq) 1 patch TD DAILY PRN PRN Reason: URGE TO SMOKE Non-Formulary Medication (Budesonide/Formoterol Fumarate [Symbicort 80-4.5 Mcg Inhaler]) 2 aer IH Q12 [facility] Last Admin: 04/20/18 09:39 Dose: Not Given Pantoprazole Sodium (Protonix Ec Tab) 20 mg PO 0600,1600 [facility] Last Admin: 04/20/18 05:49 Dose: Not Given - Labs Labs: 04/17/18 07:00 04/17/18 07:00 Attending/Attestation - Attestation I have personally seen and examined this patient.: Yes I have fully participated in the care of the patient.: Yes I have reviewed all pertinent clinical information, including history, physical exam and plan: Yes Notes (Text): 04/20/18 13:00 63 year old male with past medical history of hypertension, COPD, CAD s/p stents, s/p recent RCA stent, s/p CABG, alcohol abuse and active tobacco abuse who presented with complaint of chest pain and shortness of breath secondary to COPD exacerbation. Serial cardiac enzymes were negative and ACS has been ruled out. Cardiology is following. Continue with aspirin, plavix, and statin. Coreg was discontinued due to bradycardia which has improved. Continue with duonebs, iv steroids and antibiotics. His wheezing is improving and his solumedrol is being tapered. He was counselled on smoking cessation. He continues to be very irritable, often verbally abusive towards staff and physicians. PT evaluation was appreciated who recommended for possible TCU which he is still undecided on. Suspect history of personality or mood disorder. Anticipate d/c planning in 24-48 hrs. Will request manager social consult. Ministerio Dickerson MD Hospitalist.
--- NOTE | 2018-04-20 19:58 | PN ---
DATE: 04/20/2018 SUBJECTIVE: The patient denies experiencing any chest pain. He is experiencing shortness of breath and unproductive cough. PHYSICAL EXAMINATION: VITAL SIGNS: Blood pressure 102/57, heart rate 69, temperature 98.6, respirations 20. HEENT: Normocephalic. CHEST: Diffuse bilateral rhonchi. HEART: S1 and S2 regular. EXTREMITIES: No edema. ASSESSMENT: 1. Coronary artery disease, status post recent drug-eluting stenting to saphenous vein graft to ramus intermedius artery. 2. Chronic obstructive lung disease. 3. Consider underlying pneumonia. 4. Ethyl alcohol abuse. RECOMMENDATIONS: Continue aspirin 81 mg once a day, subcutaneous heparin 5000 every 8 hours, Lipitor 40 mg once a day, Plavix 75 mg once a day, Solu-Medrol 10 mg intravenously every 12 hours. Mike Young MD
[2018-04-21] MEDS: Albuterol-Ipratrop 3 mg / 0.5 (3 ml) UD IH SCH ×4 (00:09→20:25)
[2018-04-21] MEDS: Pantoprazole 20 mg EC Tab PO SCH ×2 (05:48→16:56)
[2018-04-21] MEDS: Multivitamin With Minerals Tab PO SCH (10:16)
[2018-04-21] MEDS: MethylPREDNISolone 40 mg Vial IVP SCH (10:16)
--- NOTE | 2018-04-21 14:59 | CP.PCM.PN ---
<Airam Mckeon - Last Filed: 04/21/18 14:56> Subjective - Date & Time of Evaluation Date of Evaluation: 04/21/18 Time of Evaluation: 10:00 - Subjective Subjective: Airam Mckeon PGY1 Progress note for Dr. Bowen Pt was examined at bedside this morning. He reported continuation of his chest pain and shortness of breath. He complained of feeling warm at his neck, which is stable from earlier this hospital stay. He also complained of abdominal pain. He denied any nausea, vomiting, or diarrhea. Today, pt said he wanted to kill himself. When asked if he had a plan to do so, he said he wanted to jump off the roof. When asked if he would hurt someone else, he replied yes but could not specify who. Objective - Vital Signs/Intake and Output Vital Signs (last 24 hours): Temp Pulse Resp BP Pulse Ox 97.9 F 93 H 16 123/57 L 98 04/21/18 06:00 04/21/18 10:00 04/21/18 06:00 04/21/18 06:00 04/21/18 06:00 Intake and Output: 04/21/18 04/21/18 06:59 18:59 Output Total 800 Balance -800 - Medications Medications: Current Medications Acetaminophen (Tylenol 325mg Tab) 650 mg PO Q6H PRN PRN Reason: Fever >100.4 F Last Admin: 04/19/18 10:42 Dose: 650 mg Albuterol/Ipratropium (Duoneb 3 Mg/0.5 Mg (3 Ml) Ud) 3 ml IH Q2H PRN PRN Reason: Shortness of Breath Albuterol/Ipratropium (Duoneb 3 Mg/0.5 Mg (3 Ml) Ud) 3 ml IH [id number] [facility] Last Admin: 04/21/18 11:45 Dose: Not Given Aspirin (Ecotrin) 81 mg PO DAILY [facility] Last Admin: 04/21/18 10:16 Dose: 81 mg Atorvastatin Calcium (Lipitor) 40 mg PO DIN [facility] Last Admin: 04/20/18 16:36 Dose: 40 mg Clopidogrel Bisulfate (Plavix) 75 mg PO DAILY [facility] Last Admin: 04/21/18 10:16 Dose: 75 mg Heparin Sodium (Porcine) (Heparin) 5,000 units SC Q12 [facility]; Protocol Last Admin: 04/21/18 10:16 Dose: 5,000 units Ibuprofen (Motrin Tab) 400 mg PO Q6H PRN PRN Reason: Pain, moderate (4-7) Last Admin: 04/21/18 10:30 Dose: 400 mg Montelukast Sodium (Singulair) 10 mg PO DAILY [facility] Last Admin: 04/21/18 10:16 Dose: 10 mg Multivitamins/Minerals (Therapeutic-M Tab) 1 tab PO DAILY [facility] Last Admin: 04/21/18 10:16 Dose: 1 tab Nicotine (Nicoderm Cq) 1 patch TD DAILY PRN PRN Reason: URGE TO SMOKE Non-Formulary Medication (Budesonide/Formoterol Fumarate [Symbicort 80-4.5 Mcg Inhaler]) 2 aer IH Q12 [facility] Last Admin: 04/21/18 10:16 Dose: Not Given Pantoprazole Sodium (Protonix Ec Tab) 20 mg PO 0600,1600 [facility] Last Admin: 04/21/18 05:48 Dose: 20 mg Prednisone (Prednisone Tab) 20 mg PO DAILY [facility] - Labs Labs: 04/17/18 07:00 04/17/18 07:00 - Constitutional Appears: Well, In Acute Distress - Head Exam Head Exam: ATRAUMATIC, NORMOCEPHALIC - Eye Exam Eye Exam: EOMI, Normal appearance, PERRL Pupil Exam: NORMAL ACCOMODATION - ENT Exam ENT Exam: Mucous Membranes Moist - Neck Exam Neck Exam: Normal Inspection - Respiratory Exam Respiratory Exam: Wheezes, NORMAL BREATHING PATTERN. absent: Rales, Rhonchi, Stridor Additional comments: expiratory wheezes in b/l upper and lower lung dong, improved - Cardiovascular Exam Cardiovascular Exam: REGULAR RHYTHM, +S1, +S2. absent: Gallop, Rubs, Murmur - GI/Abdominal Exam GI & Abdominal Exam: Soft, Tenderness, Normal Bowel Sounds. absent: Distended, Firm Additional comments: nonspecific tenderness in all four quadrants - Extremities Exam Extremities Exam: Normal Inspection. absent: Pedal Edema - Neurological Exam Neurological Exam: Alert, Awake, Oriented x3 - Psychiatric Exam Psychiatric exam: Anxious, Homicidal Ideation, Suicidal Ideation - Skin Skin Exam: Normal Color. absent: Cyanosis, Diaphoretic Assessment and Plan - Assessment and Plan (Free Text) Assessment: 63yo M with PMH of HTN, COPD, TIA, CAD with stents, CABG, ETOH abuse, and active tobacco abuse admitted for chest pain and SOB. Plan: Chest pain - Hx of CAD/CABG - Trop < 0.01 x3 - ACS ruled out - likely due to anxiety - continue ASA 81mg - continue Plavix 75mg - continue lipitor 40mg - Cardio consulted, Dr. Yvonne coy appreciated Shortness of breath, likely 2/2 COPD exacerbation - pt likely noncompliant with medication at home, reports tobacco use - wheezing improved - continue duobnebs q4h MAHSA and q2h PRN - continue symbicort - continue ventolin - start prednisone 20 PO daily Hx of HTN - BP 123/57 - Cardio consulted, Dr. Yvonne coy appreciated Abdominal Pain - nonspecific, possibly GERD - protonix 20 BID Suicidal/Homicidal Ideations - pt reports desire to jump off roof and kill himself and hurt others - pt reports having felt this way in the past - start 1:1 observation - psych consulted, Dr. Matute, f/u recs Tobacco abuse - nicotine patch prn tobacco - encourage cessation of tobacco use PPX: - SCDs + subq heparin - famotidine Patient seen, case discussed with, and plan approved by attending physician, Dr. Bowen. <Flor Bowen - Last Filed: 04/23/18 08:34> Objective - Vital Signs/Intake and Output Vital Signs (last 24 hours): Temp Pulse Resp BP Pulse Ox 98.4 F 84 18 117/59 L 97 04/21/18 17:05 04/22/18 14:00 04/21/18 17:05 04/21/18 17:05 04/21/18 17:05 - Labs Labs: 04/17/18 07:00 04/17/18 07:00 Attending/Attestation - Attestation I have personally seen and examined this patient.: Yes I have fully participated in the care of the patient.: Yes I have reviewed all pertinent clinical information, including history, physical exam and plan: Yes Notes (Text): 04/23/18 08:33 Medical record note made by the resident after discussion with my direction and input after the patient was personally seen and examined by me. I have reviewed the chart and agree that the record accurately reflects by personal performance of the history, physical exam, data review, and medical decision-making, in the course for the patient. I have also personally directed the plan of care. 63 year old male with past medical history of hypertension, COPD, CAD,s/p CABG s/p recent RCA stent, , alcohol abuse and active tobacco abuse who presented with complaint of chest pain and shortness of breath secondary to COPD exacerbation. Serial cardiac enzymes were negative . His cough/dyspnea and wheezing has improved with Neb/ IV steroid .We will start him on tapering dose of Prednisone.. He is on 1.1 due to H/O suicidal ideation.Psychiatry evaluation is pending. The issue of compliance with medication was discussed in detail with him. Prognosis is guarded due to non compliance and ongoing smoking and alcohol abuse.
[2018-04-21 17:05] VITALS: BP 117/59; RESP 18; TEMP 98.4; O2SAT 97
--- NOTE | 2018-04-21 21:16 | PN ---
DATE: 04/21/2018 SUBJECTIVE: The patient denies chest pain. He is experiencing shortness of breath and cough. PHYSICAL EXAMINATION VITAL SIGNS: Blood pressure 123/57, heart rate 66, temperature 97.9, respirations 16. HEENT: Normocephalic. CHEST: Bilateral rhonchi. HEART: S1 and S2 regular. EXTREMITIES: No edema. ASSESSMENT: 1. Coronary artery disease status post recent stenting of saphenous vein graft through the ramus intermedius artery. 2. Chronic obstructive lung disease. 3. Ethyl alcohol abuse. RECOMMENDATIONS: Continue albuterol inhaler, aspirin 81 mg once a day, subcutaneous heparin 5000 units every 12 hours, Lipitor 20 mg once a day, Nicoderm patch, Plavix 75 mg once a day, Singulair 10 mg once a day. Mike Young MD
[2018-04-22] MEDS: Albuterol-Ipratrop 3 mg / 0.5 (3 ml) UD IH SCH ×3 (03:53→11:02)
[2018-04-22] MEDS: Pantoprazole 20 mg EC Tab PO SCH (05:32)
[2018-04-22] MEDS: Multivitamin With Minerals Tab PO SCH (10:15)
[2018-04-22 15:48] VITALS: PULSE 84
--- NOTE | 2018-04-22 15:51 | CP.PCM.DIS ---
<Airam Mckeon - Last Filed: 04/22/18 16:37> Provider - Provider Date of Admission: 04/17/18 13:38 Attending physician: Ministerio Dickerson MD Primary care physician: Lauren Damon DO Consults: Cardio Time Spent in preparation of Discharge (in minutes): 70 Hospital Course - Lab Results Lab Results: Most Recent Lab Values WBC 7.0 10^3/ul (4.5-11.0) D 04/17/18 07:00 RBC 3.98 10^6/uL (3.5-6.1) 04/17/18 07:00 Hgb 12.8 g/dL (14.0-18.0) L 04/17/18 07:00 Hct 38.0 % (42.0-52.0) L 04/17/18 07:00 MCV 95.5 fl (80.0-105.0) 04/17/18 07:00 MCH 32.2 pg (25.0-35.0) 04/17/18 07:00 MCHC 33.7 g/dl (31.0-37.0) 04/17/18 07:00 RDW 14.1 % (11.5-14.5) 04/17/18 07:00 Plt Count 247 10^3/uL (120.0-450.0) 04/17/18 07:00 MPV 8.8 fl (7.0-11.0) 04/17/18 07:00 Gran % 75.8 % (50.0-68.0) H 04/17/18 07:00 Lymph % (Auto) 13.6 % (22.0-35.0) L 04/17/18 07:00 [place] % (Auto) 10.6 % (1.0-6.0) H 04/17/18 07:00 Eos % (Auto) 0.0 % (1.5-5.0) L 04/17/18 07:00 Baso % (Auto) 0.0 % (0.0-3.0) 04/17/18 07:00 Gran # 5.27 (1.4-6.5) 04/17/18 07:00 Lymph # (Auto) 1.0 (1.2-3.4) L 04/17/18 07:00 [place] # (Auto) 0.7 (0.1-0.6) H 04/17/18 07:00 Eos # (Auto) 0.0 (0.0-0.7) 04/17/18 07:00 Baso # (Auto) 0.00 K/mm3 (0.0-2.0) 04/17/18 07:00 Sodium 136 mmol/L (132-148) 04/17/18 07:00 Potassium 4.5 mmol/L (3.6-5.0) 04/17/18 07:00 Chloride 101 mmol/L (98-107) 04/17/18 07:00 Carbon Dioxide 28 mmol/L (21-33) 04/17/18 07:00 Anion Gap 12 (10-20) 04/17/18 07:00 BUN 22 mg/dL (7-21) H 04/17/18 07:00 Creatinine 0.8 mg/dl (0.8-1.5) 04/17/18 07:00 Est GFR ( Amer) > 60 04/17/18 07:00 Est GFR (Non-Af Amer) > 60 04/17/18 07:00 Random Glucose 97 mg/dL (70-110) 04/17/18 07:00 Calcium 9.3 mg/dL (8.4-10.5) 04/17/18 07:00 Magnesium 2.2 mg/dL (1.7-2.2) 04/16/18 13:30 Total Bilirubin 0.6 mg/dL (0.2-1.3) 04/17/18 07:00 AST 28 U/L (17-59) 04/17/18 07:00 ALT 29 U/L (7-56) 04/17/18 07:00 Alkaline Phosphatase 54 U/L (38-126) 04/17/18 07:00 Lactate Dehydrogenase 385 U/L (333-699) 04/17/18 07:00 Total Creatine Kinase 33 U/L (35-230) L 04/17/18 07:00 Troponin I < 0.01 ng/mL 04/17/18 07:00 Total Protein 6.4 g/dL (5.8-8.3) 04/17/18 07:00 Albumin 3.9 g/dL (3.0-4.8) 04/17/18 07:00 Globulin 2.5 gm/dL 04/17/18 07:00 Albumin/Globulin Ratio 1.6 (1.1-1.8) 04/17/18 07:00 TSH 3rd Generation 1.57 mIU/mL (0.46-4.68) 04/17/18 07:00 Urine Color Yellow (YELLOW) 04/16/18 17:51 Urine Appearance Clear (CLEAR) 04/16/18 17:51 Urine pH 8.5 (4.7-8.0) 04/16/18 17:51 Ur Specific Leslie 1.015 (1.005-1.035) 04/16/18 17:51 Urine Protein Trace mg/dL (<30 mg/dL) H 04/16/18 17:51 Urine Glucose (UA) Negative mg/dL (NEGATIVE) 04/16/18 17:51 Urine Ketones Negative mg/dL (NEGATIVE) 04/16/18 17:51 Urine Blood Trace-intact (NEGATIVE) H 04/16/18 17:51 Urine Nitrate Negative (NEGATIVE) 04/16/18 17:51 Urine Bilirubin Negative (NEGATIVE) 04/16/18 17:51 Urine Urobilinogen 0.2 E.U./dL (<1 E.U./dL) 04/16/18 17:51 Ur Leukocyte Esterase Negative Jenifer/uL (NEGATIVE) 04/16/18 17:51 Urine RBC 1 - 3 /hpf (0-2) 04/16/18 17:51 Urine WBC 10 - 15 /hpf (0-6) 04/16/18 17:51 Ur Epithelial Cells 3 - 4 /hpf (0-5) 04/16/18 17:51 Urine Bacteria Mod (NEG) 04/16/18 17:51 Alcohol, Quantitative < 10 mg/dL (0-10) 04/16/18 17:56 - Hospital Course Hospital Course: Upon Admission: Patient is a 63 year old male with past medical history of HTN, COPD, TIA, CAD with stents, CABG, ETOH abuse, and active tobacco abuse who presented to the emergency department for chest pain in the retrosternal region, radiating to the back and shortness of breath which began while ambulating. He also admitted to some associated SOB and nonproductive cough. In the ED, serial cardiac enzymes were obtained, cardio consult was requested and nitroglycerin, morphine, aspirin, plavix and coreg were started for his chest pain. Duonebs, iv steroids and antibiotics were started for COPD exacerbation. Hospital Course: 62 year old male admitted for ACS rule out and COPD exacerbation. Troponins were negative x3, ekg showed normal sinus rhythm with early repolarization. Patient continued to complain of chest pain and shortness of breath. Cardiology was consulted and recommended continuation of ASA 81mg, Plavix 75mg, coreg 12.5mg BID and lipitor 40mg. Pt completed course of zithromax. His wheezing improved. Pt had SI/HI, and psych evaluated him. He was deemed stable for discharge and was recommended to follow up outpatient. Upon Discharge: Pt was deemed stable for discharged and instructed to follow up with primary care. He was also instructed to avoid smoking. He understood the instructions, and agreed. Discharge Exam - Head Exam Head Exam: ATRAUMATIC, NORMOCEPHALIC - Eye Exam Eye Exam: EOMI, Normal appearance Pupil Exam: NORMAL ACCOMODATION - ENT Exam ENT Exam: Mucous Membranes Moist, Normal Exam - Respiratory Exam Respiratory Exam: Wheezes, NORMAL BREATHING PATTERN. absent: Accessory Muscle Use, Rales, Rhonchi - Cardiovascular Exam Cardiovascular Exam: REGULAR RHYTHM, +S1, +S2. absent: Gallop, Rubs, Systolic Murmur - GI/Abdominal Exam GI & Abdominal Exam: Normal Bowel Sounds. absent: Distended, Firm, Soft, Tenderness - Extremities Exam Extremities exam: normal inspection - Neurological Exam Neurological exam: Alert, Oriented x3 - Psychiatric Exam Psychiatric exam: Normal Affect, Normal Mood Discharge Plan - Discharge Medications Prescriptions: RX: predniSONE [predniSONE Tab] See Taper PO DAILY #14 tab - Follow Up Plan Condition: FAIR Disposition: HOME/ ROUTINE Instructions: Hyperkalemia (DC), Shortness of Breath (Dyspnea) (DC), Chest Pain (DC) Additional Instructions: Patient Instructions: 1. Take medications as prescribed. You will be starting a prednisone taper. Please follow label instructions. 2. Follow up with your primary care physician, Dr. Damon, three to five days from discharge. 3. Return to the emergency room for evaluation of intractable headache, fever, chills, dizziness, chest pain, shortness of breath, abdominal pain, nausea, vomiting, diarrhea, constipation, urinary symptoms, and any new/worsening symptom. Referrals: Lauren Damon DO [Primary Care Provider] - <Flor Bowen - Last Filed: 04/23/18 08:33> Provider - Provider Date of Admission: 04/17/18 13:38 Attending physician: Ministerio Dickerson MD Primary care physician: Lauren Damon DO Time Spent in preparation of Discharge (in minutes): 40 Hospital Course - Lab Results Lab Results: Most Recent Lab Values WBC 7.0 10^3/ul (4.5-11.0) D 04/17/18 07:00 RBC 3.98 10^6/uL (3.5-6.1) 04/17/18 07:00 Hgb 12.8 g/dL (14.0-18.0) L 04/17/18 07:00 Hct 38.0 % (42.0-52.0) L 04/17/18 07:00 MCV 95.5 fl (80.0-105.0) 04/17/18 07:00 MCH 32.2 pg (25.0-35.0) 04/17/18 07:00 MCHC 33.7 g/dl (31.0-37.0) 04/17/18 07:00 RDW 14.1 % (11.5-14.5) 04/17/18 07:00 Plt Count 247 10^3/uL (120.0-450.0) 04/17/18 07:00 MPV 8.8 fl (7.0-11.0) 04/17/18 07:00 Gran % 75.8 % (50.0-68.0) H 04/17/18 07:00 Lymph % (Auto) 13.6 % (22.0-35.0) L 04/17/18 07:00 [place] % (Auto) 10.6 % (1.0-6.0) H 04/17/18 07:00 Eos % (Auto) 0.0 % (1.5-5.0) L 04/17/18 07:00 Baso % (Auto) 0.0 % (0.0-3.0) 04/17/18 07:00 Gran # 5.27 (1.4-6.5) 04/17/18 07:00 Lymph # (Auto) 1.0 (1.2-3.4) L 04/17/18 07:00 [place] # (Auto) 0.7 (0.1-0.6) H 04/17/18 07:00 Eos # (Auto) 0.0 (0.0-0.7) 04/17/18 07:00 Baso # (Auto) 0.00 K/mm3 (0.0-2.0) 04/17/18 07:00 Sodium 136 mmol/L (132-148) 04/17/18 07:00 Potassium 4.5 mmol/L (3.6-5.0) 04/17/18 07:00 Chloride 101 mmol/L (98-107) 04/17/18 07:00 Carbon Dioxide 28 mmol/L (21-33) 04/17/18 07:00 Anion Gap 12 (10-20) 04/17/18 07:00 BUN 22 mg/dL (7-21) H 04/17/18 07:00 Creatinine 0.8 mg/dl (0.8-1.5) 04/17/18 07:00 Est GFR ( Amer) > 60 04/17/18 07:00 Est GFR (Non-Af Amer) > 60 04/17/18 07:00 Random Glucose 97 mg/dL (70-110) 04/17/18 07:00 Calcium 9.3 mg/dL (8.4-10.5) 04/17/18 07:00 Magnesium 2.2 mg/dL (1.7-2.2) 04/16/18 13:30 Total Bilirubin 0.6 mg/dL (0.2-1.3) 04/17/18 07:00 AST 28 U/L (17-59) 04/17/18 07:00 ALT 29 U/L (7-56) 04/17/18 07:00 Alkaline Phosphatase 54 U/L (38-126) 04/17/18 07:00 Lactate Dehydrogenase 385 U/L (333-699) 04/17/18 07:00 Total Creatine Kinase 33 U/L (35-230) L 04/17/18 07:00 Troponin I < 0.01 ng/mL 04/17/18 07:00 Total Protein 6.4 g/dL (5.8-8.3) 04/17/18 07:00 Albumin 3.9 g/dL (3.0-4.8) 04/17/18 07:00 Globulin 2.5 gm/dL 04/17/18 07:00 Albumin/Globulin Ratio 1.6 (1.1-1.8) 04/17/18 07:00 TSH 3rd Generation 1.57 mIU/mL (0.46-4.68) 04/17/18 07:00 Urine Color Yellow (YELLOW) 04/16/18 17:51 Urine Appearance Clear (CLEAR) 04/16/18 17:51 Urine pH 8.5 (4.7-8.0) 04/16/18 17:51 Ur Specific Leslie 1.015 (1.005-1.035) 04/16/18 17:51 Urine Protein Trace mg/dL (<30 mg/dL) H 04/16/18 17:51 Urine Glucose (UA) Negative mg/dL (NEGATIVE) 04/16/18 17:51 Urine Ketones Negative mg/dL (NEGATIVE) 04/16/18 17:51 Urine Blood Trace-intact (NEGATIVE) H 04/16/18 17:51 Urine Nitrate Negative (NEGATIVE) 04/16/18 17:51 Urine Bilirubin Negative (NEGATIVE) 04/16/18 17:51 Urine Urobilinogen 0.2 E.U./dL (<1 E.U./dL) 04/16/18 17:51 Ur Leukocyte Esterase Negative Jenifer/uL (NEGATIVE) 04/16/18 17:51 Urine RBC 1 - 3 /hpf (0-2) 04/16/18 17:51 Urine WBC 10 - 15 /hpf (0-6) 04/16/18 17:51 Ur Epithelial Cells 3 - 4 /hpf (0-5) 04/16/18 17:51 Urine Bacteria Mod (NEG) 04/16/18 17:51 Alcohol, Quantitative < 10 mg/dL (0-10) 04/16/18 17:56 Attending/Attestation - Attestation I have personally seen and examined this patient.: Yes I have fully participated in the care of the patient.: Yes I have reviewed all pertinent clinical information, including history, physical exam and plan: Yes Notes (Text): 04/23/18 08:28 Medical record note made by the resident after discussion with my direction and input after the patient was personally seen and examined by me. I have reviewed the chart and agree that the record accurately reflects by personal performance of the history, physical exam, data review, and medical decision-making, in the course for the patient. I have also personally directed the plan of care. 63 year old male with past medical history of hypertension, COPD, CAD,s/p CABG s/p recent RCA stent, , alcohol abuse and active tobacco abuse who presented with complaint of chest pain and shortness of breath secondary to COPD exacerbation. Serial cardiac enzymes were negative . His cough/dyspnea and wheezing has improved with Neb/steroid .He is at his [facility] at the time of discharge. He was also evaluated by evaluated by Psychiatry as he was abusive and was also giving H/O suicidal ideation.He was cleared by Psychiatry for discharge.He was not suicidal at the time of discharge. The issue of compliance with medication was discussed in detail with him. Prognosis is guarded due to non compliance and ongoing smoking and alcohol abuse.
--- NOTE | 2018-04-22 17:01 | PN ---
DATE: 04/22/2018 FOLLOWUP SUBJECTIVE: The patient is currently on one-to-one watch. He is comfortable in bed. He denies any retrosternal chest pain. PHYSICAL EXAMINATION: VITAL SIGNS: Blood pressure 117/59, heart rate 76, temperature 98.4, respirations 18. HEENT: Normocephalic. CHEST: Bilateral rhonchi. HEART: S1 and S2 regular. EXTREMITIES: No edema. ASSESSMENT: 1. Coronary artery disease, status post recent stenting of saphenous vein graft to the ramus intermedius artery. 2. Chronic obstructive lung disease. 3. History of ethyl alcohol abuse. RECOMMENDATIONS: Continue aspirin 81 mg once a day, Lipitor at 40 mg once a day, Plavix 75 mg once a day, prednisone at 20 mg once a day. Mike Young MD
--- NOTE | 2018-04-23 09:19 | CON ---
DATE: 04/22/2018 HISTORY OF PRESENT ILLNESS: In short, the patient is a 63-year-old male with reported history of antisocial personality disorder. The patient had history of being admitted to the Psychiatric Inpatient Unit, most recently was in 2018. This video game script writer is very familiar with this patient from the previous admission to the Psychiatric Inpatient Unit. At this time, the patient was admitted to the medical site for evaluation of hyperkalemia and chest pain. Psych consult was called because the patient has history of mental illness and the patient expressed thoughts of harming himself and others. Clarification, the patient never said that he wanted to kill himself now during this admission and the patient denied he ever verbalized thoughts of harming others this admission. The patient said that he has history of mental illness. The patient had history of suicidal ideation. The patient reported that last time was about 1 year and a half ago. The patient had impression that he wanted to go to the roof and jump off. The patient adamantly denied any thoughts of killing himself or others at present moment. The patient reports that he feels frustrated At [facility] where he lives. The patient reports that he is not taking any psychotropic medications. The patient denied that he ever followed up with [facility] after discharge from the Psychiatric Inpatient Unit. The patient overall reported that he feels good. Denied any complaints. Denied hearing voices, denied seeing things, denied paranoid ideation. Of note, the patient's thought process seems to be circumstantial and tangential, but no acute psychosis identified. Vital signs reviewed. Medications reviewed. The patient does not have any agitation or aggression. No psychosis as per nursing staff. Labs reviewed, most recent was from 04/17/2018. Discussed with one-to-one. The patient had good appetite and sleep. No acute issues observed or reported. MENTAL STATUS EXAMINATION: The patient presented to be alert, intermittent eye contact. Speech was at times over productive, but not pressured. Mood described as frustrated over his living situation in the [facility]. Thought process seems to be circumstantial and tangential. Thought content, the patient denied visual, auditory or tactile hallucinations. Denied paranoid ideation. The patient denied thoughts of harming himself or others. Denied intents or plan. Insight and judgment seems to be improving. Impulses are well controlled. IMPRESSION: As per history, antisocial personality disorder. The patient has multiple medical issues, rule out mood disorder due to general medical condition. PLAN: The patient adamantly denied that he wants to kill himself or others. The patient reported last time he felt that he wanted to kill himself was 1 year and a half go where the patient climbed on the roof and wanted to jump off. Adamantly denied any intents or plan to kill himself now. The patient reports that he feels better from the medical standpoint. The patient has future oriented plans. The patient pose no imminent danger to self or others. This video game script writer advised the patient in case of suicidal ideation, come back to the hospital. The patient contracted for safety. The patient has information about [facility]. The patient was advised to follow up as outpatient. This video game script writer will sign off. Discussed with Dr. Bowen. Should you have any questions, give me a call back. The patient pose no imminent danger to self or others. Thank you very much for letting me participate in the care of your patient. Mariella Matute MD
== END 2018-04-22 16:05 | disposition home or self-care (01) | DRG 88 ==
LOC: ED 12:23 → ERH 14:45 → 3RSO 18:41 → OBSVTOIN 04-17 13:38
PROVIDERS: ADMIT Internal Medicine; ATTEND Internal Medicine
PROC: 3E0F7GC Introduction of Other Therapeutic Substance into Respiratory Tract, Via Natural or Artificial Opening (ICD-10-PCS; principal; 2018-04-17)
DX: J44.1 Chronic obstructive pulmonary disease with (acute) exacerbation (principal); E87.5 Hyperkalemia; I25.10 Atherosclerotic heart disease of native coronary artery without angina pectoris; I10 Essential (primary) hypertension; F10.10 Alcohol abuse, uncomplicated; F60.2 Antisocial personality disorder; R00.1 Bradycardia, unspecified; R45.851 Suicidal ideations; Z91.19 Patient's noncompliance with other medical treatment and regimen; Z86.73 Personal history of transient ischemic attack (TIA), and cerebral infarction without residual deficits; Z72.0 Tobacco use; Z79.02 Long term (current) use of antithrombotics/antiplatelets; Z79.82 Long term (current) use of aspirin; Z95.1 Presence of aortocoronary bypass graft; Z95.5 Presence of coronary angioplasty implant and graft

== ENCOUNTER 2018-04-23 14:25 | Emergency (ER) | payer MEDICAID, MEDICARE ==
[2018-04-23 14:35] VITALS: BMI 22.7
[2018-04-23] MEDS: Albuterol-Ipratrop 3 mg / 0.5 (3 ml) UD IH SCH (15:57)
[2018-04-23 15:58] LABS: EOS # 0.1 (0.0-0.7); EOS % 0.5 % (1.5-5.0); GRAN # 7.96 (1.4-6.5); GRAN % 83.7 % (50.0-68.0); HEMOGLOBIN 12.5 g/dL (14.0-18.0); LYMPH # 0.9 (1.2-3.4); LYMPH % 9.3 % (22.0-35.0); MEAN CELL VOLUME 96.1 fl (80.0-105.0); MEAN CORPUSCULAR HEMOGLOBIN 32.1 pg (25.0-35.0); MEAN CORPUSCULAR HGB CONC 33.4 g/dl (31.0-37.0); MEAN PLATELET VOLUME 8.9 fl (7.0-11.0); MONO # 0.6 (0.1-0.6); MONO % 6.5 % (1.0-6.0); RBC 3.89 10^6/uL (3.5-6.1); RED CELL DISTRIBUTION WIDTH 14.8 % (11.5-14.5); WHITE BLOOD COUNT 9.5 10^3/ul (4.5-11.0)
[2018-04-23 16:08] LABS: INR 0.9; PARTIAL THROMBOPLASTIN TIME 23.2 Seconds (25.1-36.5); PROTHROMBIN TIME 10.2 SECONDS (9.4-12.5)
[2018-04-23 16:17] LABS: ALB/GLOB RATIO 1.6 (1.1-1.8); ALBUMIN 4.1 g/dL (3.0-4.8); ALT/SGPT 46 U/L (7-56); AST/SGOT 43 U/L (17-59); BLOOD UREA NITROGEN 30 mg/dL (7-21); CALCIUM 9.2 mg/dL (8.4-10.5); GFR NON-AFRICAN AMERICAN > 60
--- NOTE | 2018-04-23 16:18 | RAD ---
Date of service: 04/23/2018 HISTORY: sob COMPARISON: 04/16/2018 FINDINGS: LUNGS: No active pulmonary disease. PLEURA: No significant pleural effusion identified, no pneumothorax apparent. CARDIOVASCULAR: Normal. OSSEOUS STRUCTURES: Sternal wires VISUALIZED UPPER ABDOMEN: Normal. OTHER FINDINGS: None. IMPRESSION: No active disease.
[2018-04-23 16:25] LABS: B-TYPE NATRIURETIC PEPTIDE 561 pg/mL (0-450)
[2018-04-23 16:27] LABS: TROPONIN I 0.03 ng/mL
--- NOTE | 2018-04-23 16:31 | ED PDOC ---
Arrival/HPI - General Chief Complaint: Chest Pain Time Seen by Provider: 04/23/18 14:49 Historian: Patient - History of Present Illness Narrative History of Present Illness (Text): 04/23/18 16:26 Patient is a 63 year old male who presents to the emergency department for shortness of breath and wheezing. Patient reports that his symptoms have been ongoing for the past few days. He notes chest pain when coughing. He was discharged from the hospital a few days ago. pt has pci few weeks ago s/p stent. pt was dc from hospital yesterday, cleared by cards. trop neg. Patient denies fevers, chills, chest pain, dyspnea on exertion, abdominal pain, nausea, vomiting, diarrhea, back pain, neck pain, headache, dizziness, or any other complaint. pt well known to er for non complaince. 04/23/18 17:34 Time/Duration: < week Symptom Onset: Sudden Symptom Course: Unchanged Activities at Onset: Rest Context: Home Past Medical History - Provider Review Nursing Documentation Reviewed: Yes - Past History Past History: No Previous - Infectious Disease Hx of Infectious Diseases: None - Tetanus Immunization Tetanus Immunization: Unknown - Reproductive Currently Lactating: No - Cardiac Hx Cardiac Disorders: Yes (CAD with stents, CABG, sinus bradycardia, cardiac arrythmias, angina) Hx Hypertension: Yes - Pulmonary Hx Chronic Obstructive Pulmonary Disease (COPD): Yes - Neurological Hx Neurological Disorder: Yes (peripheral neuropathy) Hx Dizziness: Yes Hx Migraine: Yes Hx Transient Ischemic Attacks (TIA): Yes Other/Comment: b/l legs burning numbnes, tingling - HEENT Hx HEENT Disorder: Yes (eyeglasses, r eye lazy eye) Hx Cataracts: Yes - Renal Hx Renal Disorder: Yes Hx Kidney Stones: Yes - Endocrine/Metabolic Hx Endocrine Disorders: No - Hematological/Oncological Hx Blood Disorders: Yes Hx Anemia: Yes - Integumentary Hx Dermatological Disorder: Yes Other/Comment: VARICOSE 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, 2 small bruises to rcw and lcw, larger bruise left shoulder, thick hard toenails - Musculoskeletal/Rheumatological Hx Musculoskeletal Disorders: Yes Hx Arthritis: Yes Hx Degenerative Joint Disease: Yes Hx Falls: Yes (past) Hx Fractures: Yes (RIB) Hx Gout: Yes Hx Unsteady Gait: Yes - Gastrointestinal Hx Gastrointestinal Disorders: Yes (COLITIS,DIVERTICULOSIS) Hx Gall Bladder Disease: Yes (gallstones) Hx Gastroesophageal Reflux: Yes - Genitourinary/Gynecological Hx Genitourinary Disorders: Yes Hx Urinary Tract Infection: Yes - Psychiatric Hx Psychophysiologic Disorder: Yes (USED TO DRINK ALCOHOL.H/O ETOH ABUSE. QUIT.) Hx Anxiety: Yes Hx Depression: Yes Hx Post Traumatic Stress Disorder: Yes Hx Substance Use: Yes (quitcoke/heroin / occasional pot) Other/Comment: quit smoking 1 week ago, community mental health,etoh abuse quit drinking sober 1 yr 6 months relapsed 04/03/18 then stopped again, personality di sorder, smokes pot occasionally but quit heroin cocaine in , criminal charges in past, lives [facility] - Surgical History Hx Cardiac Catheterization: Yes (CORONARY STENT) Hx Cholecystectomy: Yes Hx Coronary Stent: Yes Hx Open Heart Surgery: Yes (triple bypass) - Anesthesia Hx Anesthesia: Yes Hx Anesthesia Reactions: No Hx Malignant Hyperthermia: No - Suicidal Assessment Feels Threatened In Home Enviroment: No Family/Social History - Physician Review Nursing Documentation Reviewed: Yes Family/Social History: No Known Family HX Smoking Status: Former Smoker Hx Alcohol Use: Yes (sober 1yr 6mo relapse 04/03/18 and stopped) Hx Substance Use: Yes (quitcoke/heroin / occasional pot) Substance used: HEROIN, MARIJUANA Hx Substance Use Treatment: No Allergies/Home Meds Allergies/Adverse Reactions: Allergies shellfish derived Allergy (Verified 04/16/18 12:44) ANAPHYLAXIS Sulfa (Sulfonamide Antibiotics) Allergy (Verified 04/16/18 12:44) RASH Home Medications: Home Meds Medication Instructions Recorded Confirmed RX: Aspirin [Low Dose Aspirin EC] 81 mg PO DAILY 04/04/18 04/16/18 RX: Clopidogrel [Plavix] 75 mg PO DAILY 04/04/18 04/16/18 RX: Famotidine [Pepcid] 20 mg PO DAILY 04/04/18 04/16/18 RX: Montelukast [Singulair] 10 mg PO DAILY 04/04/18 04/16/18 RX: Multivit-Min/Iron/Folic Acid/K 1 each PO DAILY 04/04/18 04/16/18 [Adults Multivitamin Tablet] RX: Nitroglycerin [Nitrostat] 0.4 mg SL PRN PRN 04/04/18 04/16/18 Review of Systems - Physician Review All systems were reviewed & negative as marked: Yes - Review of Systems Constitutional: absent: Fevers, Night Sweats Respiratory: SOB, Cough, Wheezing Cardiovascular: absent: Chest Pain, MEZA Gastrointestinal: absent: Abdominal Pain, Diarrhea, Nausea, Vomiting Genitourinary Male: absent: Urinary Output Changes Musculoskeletal: absent: Back Pain, Neck Pain Neurological: absent: Headache, Dizziness Physical Exam Vital Signs Reviewed: Yes Vital Signs Pulse 04/23/18 15:17 67 Blood Pressure: Normal Pulse: Regular Respiratory Rate: Normal Mental Status: Positive for: Alert and Oriented X 3 - Systems Exam Head: Present: Atraumatic, Normocephalic Pupils: Present: PERRL Extroacular Muscles: Present: EOMI Conjunctiva: Present: Normal Mouth: Present: Moist Mucous Membranes Neck: Present: Normal Range of Motion Respiratory/Chest: Present: Good Air Exchange, Wheezes (scattered wheezing). No: Respiratory Distress, Accessory Muscle Use Cardiovascular: Present: Regular Rate and Rhythm, Normal S1, S2. No: Murmurs Abdomen: No: Tenderness, Distention, Peritoneal Signs Back: Present: Normal Inspection Upper Extremity: Present: Normal Inspection. No: Cyanosis, Edema Lower Extremity: Present: Normal Inspection. No: Edema Neurological: Present: GCS=15, CN II-XII Intact, Speech Normal Skin: Present: Warm, Dry, Normal Color. No: Rashes Psychiatric: Present: Alert, Oriented x 3, Normal Insight, Normal Concentration Medical Decision Making ED Course and Treatment: 04/23/18 16:24 Impression: 63 year old male who is complaining of shortness of breath and wheezing for the past few days. Differential Diagnosis included but are not limited to: ro acs vs copd Plan: -- EKG -- Prednisone -- Urinalysis -- Labs -- Blood work -- Chest X-ray -- Reassess and disposition Prior Visits: Notes and results from previous visits were reviewed. Patient was last seen in the emergency department on 04/16/18 for shortness of breath and was hospitalized for chest pain and hyperkalemia. Progress Notes: 04/23/18 16:22 EKG shows NSR at 71BPM with no ST/T wave changes. Interpreted by me. 04/23/18 17:34 trop neg. no ekg changes, recent admission cleared by cards, discussed with dr herber. ok for dc trop neg. wheezing resolved. advise doutpt fu. - Lab Interpretations Lab Results: 04/23/18 15:30 04/23/18 15:30 Lab Results 04/23/18 15:30: Sodium 135, Potassium 4.8, Chloride 97 L, Carbon Dioxide 30, Anion Gap 13, BUN 30 H, Creatinine 0.8, Est GFR ( Amer) > 60, Est GFR (Non-Af Amer) > 60, Random Glucose 92, Calcium 9.2, Magnesium 2.3 H, Total Bilirubin 0.4, AST 43, ALT 46, Alkaline Phosphatase 56, Lactate Dehydrogenase 461, Total Creatine Kinase 173, Troponin I Pending, NT-Pro-B Natriuret Pep Pending, Total Protein 6.6, Albumin 4.1, Globulin 2.5, Albumin/Globulin Ratio 1.6 04/23/18 15:30: PT 10.2, INR 0.90, APTT 23.2 L 04/23/18 15:30: WBC 9.5 D, RBC 3.89, Hgb 12.5 L, Hct 37.4 L, MCV 96.1, MCH 32.1, MCHC 33.4, RDW 14.8 H, Plt Count 225, MPV 8.9, Gran % 83.7 H, Lymph % (Auto) 9.3 L, [place] % (Auto) 6.5 H, Eos % (Auto) 0.5 L, Baso % (Auto) 0.0, Gran # 7.96 H, Lymph # (Auto) 0.9 L, [place] # (Auto) 0.6, Eos # (Auto) 0.1, Baso # (Auto) 0.00 I have reviewed the lab results: Yes - RAD Interpretation Narrative RAD Interpretations (Text): 04/23/18 16:37 Chest X-ray: Dictator : Chico Tobias MD FINDINGS: LUNGS: No active pulmonary disease. PLEURA: No significant pleural effusion identified, no pneumothorax apparent. CARDIOVASCULAR: Normal. OSSEOUS STRUCTURES: Sternal wires VISUALIZED UPPER ABDOMEN: Normal. OTHER FINDINGS: None. IMPRESSION: No active disease. Radiology Orders: 04/23/18 15:17 CHEST PORTABLE [RAD] Stat Registration Clerk: Radiologist - EKG Interpretation Interpreted by ED Physician: Yes Type: 12 lead EKG - Medication Orders Current Medication Orders: Discontinued Medications Albuterol/Ipratropium (Duoneb 3 Mg/0.5 Mg (3 Ml) Ud) 3 ml IH Q15M MAHSA Stop: 04/23/18 16:01 Last Admin: 04/23/18 15:57 Dose: 3 ml Prednisone (Prednisone Tab) 50 mg PO STAT STA Stop: 04/23/18 15:49 Last Admin: 04/23/18 15:56 Dose: 50 mg - Scribe Statement The provider has reviewed the documentation as recorded by the Sarahibinga Lubin Provider Scribe Attestation: All medical record entries made by the Scribe were at my direction and personally dictated by me. I have reviewed the chart and agree that the record accurately reflects my personal performance of the history, physical exam, medical decision making, and the department course for this patient. I have also personally directed, reviewed, and agree with the discharge instructions and disposition. Disposition/Present on Arrival - Present on Arrival Any Indicators Present on Arrival: No History of DVT/PE: No History of Uncontrolled Diabetes: No Urinary Catheter: No History of Decub. Ulcer: No History Surgical Site Infection Following: None - Disposition Have Diagnosis and Disposition been Completed?: Yes Diagnosis: COPD (chronic obstructive pulmonary disease) Disposition: HOME/ ROUTINE Disposition Time: 05:00 Condition: STABLE Discharge Instructions (ExitCare): Chronic Obstructive Pulmonary Disease (COPD), Including Emphysema, Chest Pain Additional Instructions: return to er with worsening symptoms or concerns. please follow up with your doctor/clinic. Prescriptions: Albuterol 0.5% [Albuterol 0.5% Inhal Lidya (2.5 mg/0.5 ml) UD] 2.5 mg IH Q4 PRN #20 neb PRN Reason: Wheezing Mask, Face [Nebulizer Aerosol Mask Adult] 1 dev XX PRN PRN #1 dev PRN Reason: Wheezing RX: Nebulizer [Aeroeclipse II] 1 each MC Q4 PRN #1 each PRN Reason: Wheezing RX: Prednisone 50 mg PO DAILY #5 tablet Referrals: [facility] [Outside] - [place] [facility] [place] - Follow up with primary Flor Verdin MD [Staff Provider] - Follow up with primary Forms: [employer] (Estonian)
[2018-04-23 17:01] VITALS: RESP 18; O2SAT 96
[2018-04-23 17:02] VITALS: BP 103/62; PULSE 67
--- NOTE | 2018-04-24 16:10 | CARD ---
APPROVED REPORT Date of service: 04/23/2018 EKG Measurement Heart [id number] <Conclusion> Normal sinus rhythm Normal ECG
== END 2018-04-23 17:02 | disposition home or self-care (01) ==
LOC: ED 14:25
DX: J44.9 Chronic obstructive pulmonary disease, unspecified (principal); I25.10 Atherosclerotic heart disease of native coronary artery without angina pectoris; I10 Essential (primary) hypertension; Z86.73 Personal history of transient ischemic attack (TIA), and cerebral infarction without residual deficits; Z95.1 Presence of aortocoronary bypass graft; Z95.5 Presence of coronary angioplasty implant and graft; Z87.891 Personal history of nicotine dependence

== ENCOUNTER 2018-04-29 09:02 | Inpatient (IN) | payer MEDICAID, MEDICARE ==
[2018-04-29 09:02] VITALS: BMI 22.7
--- NOTE | 2018-04-29 09:21 | ED PDOC ---
Arrival/HPI - General Chief Complaint: Chest Pain Time Seen by Provider: 04/29/18 09:12 Historian: Patient - History of Present Illness Narrative History of Present Illness (Text): 63yo male, with history of COPD, CAD with stents, hypertension, comes to ER via EMS for evaluation of a mid-sternal chest pain, radiating to his back. Patient reports associated shortness of breath and cough with yellow sputum. Patient states he was recently evaluated and had a cardiac stent placed (2 weeks ago.) Otherwise, no fever, chills, vomiting, weakness. No additional complaints. Patient was given 325mg Aspirin prior to arrival. PMD: [facility] (Dr. Damon) Financial Reporting Advisor: Dr. Dickerson Time/Duration: Prior to Arrival Symptom Onset: Gradual Past Medical History - Provider Review Nursing Documentation Reviewed: Yes - Past History Past History: No Previous - Infectious Disease Hx of Infectious Diseases: None - Tetanus Immunization Tetanus Immunization: Unknown - Reproductive Currently Lactating: No - Cardiac Hx Cardiac Disorders: Yes (CAD with stents, CABG, sinus bradycardia, cardiac arrythmias, angina) Hx Hypertension: Yes - Pulmonary Hx Chronic Obstructive Pulmonary Disease (COPD): Yes - Neurological Hx Neurological Disorder: Yes (peripheral neuropathy) Hx Dizziness: Yes Hx Migraine: Yes Hx Transient Ischemic Attacks (TIA): Yes Other/Comment: b/l legs burning numbnes, tingling - HEENT Hx HEENT Disorder: Yes (eyeglasses, r eye lazy eye) Hx Cataracts: Yes - Renal Hx Renal Disorder: Yes Hx Kidney Stones: Yes - Endocrine/Metabolic Hx Endocrine Disorders: No - Hematological/Oncological Hx Blood Disorders: Yes Hx Anemia: Yes - Integumentary Hx Dermatological Disorder: Yes Other/Comment: VARICOSE 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, 2 small bruises to rcw and lcw, larger bruise left shoulder, thick hard toenails - Musculoskeletal/Rheumatological Hx Musculoskeletal Disorders: Yes Hx Arthritis: Yes Hx Degenerative Joint Disease: Yes Hx Falls: Yes (past) Hx Fractures: Yes (RIB) Hx Gout: Yes Hx Unsteady Gait: Yes - Gastrointestinal Hx Gastrointestinal Disorders: Yes (COLITIS,DIVERTICULOSIS) Hx Gall Bladder Disease: Yes (gallstones) Hx Gastroesophageal Reflux: Yes - Genitourinary/Gynecological Hx Genitourinary Disorders: Yes Hx Urinary Tract Infection: Yes - Psychiatric Hx Psychophysiologic Disorder: Yes (USED TO DRINK ALCOHOL.H/O ETOH ABUSE. QUIT.) Hx Anxiety: Yes Hx Depression: Yes Hx Post Traumatic Stress Disorder: Yes Hx Substance Use: Yes (quitcoke/heroin / occasional pot) Other/Comment: quit smoking 1 week ago, community mental health,etoh abuse quit drinking sober 1 yr 6 months relapsed 04/03/18 then stopped again, personality disorder, smokes pot occasionally but quit heroin cocaine in , criminal charges in past, lives [facility] - Surgical History Hx Cardiac Catheterization: Yes (CORONARY STENT) Hx Cholecystectomy: Yes Hx Coronary Stent: Yes Hx Open Heart Surgery: Yes (triple bypass) - Anesthesia Hx Anesthesia: Yes Hx Anesthesia Reactions: No Hx Malignant Hyperthermia: No - Suicidal Assessment Feels Threatened In Home Enviroment: No Family/Social History - Physician Review Nursing Documentation Reviewed: Yes Family/Social History: No Known Family HX Smoking Status: Former Smoker Hx Alcohol Use: Yes (sober 1yr 6mo relapse 04/03/18 and stopped) Hx Substance Use: Yes (quitcoke/heroin / occasional pot) Substance used: HEROIN, MARIJUANA Hx Substance Use Treatment: No Allergies/Home Meds Allergies/Adverse Reactions: Allergies shellfish derived Allergy (Verified 04/29/18 09:14) ANAPHYLAXIS Sulfa (Sulfonamide Antibiotics) Allergy (Verified 04/29/18 09:14) RASH Home Medications: Home Meds Medication Instructions Recorded Confirmed Aspirin [Low Dose Aspirin EC] 81 mg PO DAILY 04/04/18 04/16/18 Clopidogrel [Plavix] 75 mg PO DAILY 04/04/18 04/16/18 Famotidine [Pepcid] 20 mg PO DAILY 04/04/18 04/16/18 Montelukast [Singulair] 10 mg PO DAILY 04/04/18 04/16/18 Multivit-Min/Iron/Folic Acid/K 1 each PO DAILY 04/04/18 04/29/18 [Adults Multivitamin Tablet] Nitroglycerin [Nitrostat] 0.4 mg SL PRN PRN 04/04/18 04/29/18 Review of Systems - Physician Review All systems were reviewed & negative as marked: Yes (per HPI) - Review of Systems Constitutional: absent: Fevers Respiratory: SOB, Cough, Sputum (yellow) Cardiovascular: Chest Pain Gastrointestinal: absent: Vomiting Physical Exam - Physical Exam Narrative Physical Exam (Text): Gen: VS reviewed, alert, nontoxic, mild distress. ENT: normal pharynx. Eye: EOMI, PERRL. Neck: no JVD, supple, no adenopathy. CV: regular rate, regular rhythm, no rubs, no murmur, no gallops, S1, S2, pulses equal and strong. Pulm: no distress, clear to auscultation, (+) bilateral expiratory wheeze, no rhonchi, (+) good air exchange bilaterally, no rales. Abd: soft, nontender, no guarding, no rebound, no rigidity, normal bowel sounds. Ext: no edema. Skin: Ecchymosis noted to lower abdomen, likely due to heparin/lovenox injection Psych: responds appropriately to questions, normal affect. Neuro: oriented x 3, CN2-12 intact grossly, motor intact, sensation intact. Medical Decision Making ED Course and Treatment: Impression: 63yo male, history of hypertension, CABG, CAD, comes to ER with midsternal chest pain Plan: -- Labs -- EKG -- CXR -- Reassess and disposition Prior Visits: Notes and results from previous visits were reviewed. Patient was last seen in the emergency department on 04/23/18 due to chest pain, and was discharged home. Progress Notes: 04/29/18 09:09 EKG: Normal sinus rhythm @ 97BPM Normal QRS Normal axis No ST/T wave changes 04/29/18 10:44 Repeat EKG: Normal sinus rhythm @ 78BPM Normal QRS Normal axis No ST/T wave changes 04/29/18 10:51 Labs reviewed, troponin negative. 04/29/18 10:59 admit accepted by the hospitalist, patient to be admitted for copd exacerbation, rule out acs, with the recent productive cough will start pt on empiric iv antibiotics. patient remained stable throughout ED course. - Scribe Statement The provider has reviewed the documentation as recorded by the Arina Fuentes Provider Scribe Attestation: All medical record entries made by the Scribe were at my direction and person ally dictated by me. I have reviewed the chart and agree that the record accurately reflects my personal performance of the history, physical exam, medical decision making, and the department course for this patient. I have also personally directed, reviewed, and agree with the discharge instructions and disposition. Disposition/Present on Arrival - Present on Arrival Any Indicators Present on Arrival: No History of DVT/PE: No History of Uncontrolled Diabetes: No Urinary Catheter: No History Surgical Site Infection Following: None - Disposition Have Diagnosis and Disposition been Completed?: Yes Diagnosis: COPD exacerbation Disposition: HOSPITALIZED Disposition Time: 11:00 Patient Plan: Admission Condition: STABLE Referrals: Lauren Damon DO [Primary Care Provider] - Follow up with primary Forms: [employer] (Malagasy)
[2018-04-29] MEDS ORDERED: Levalbuterol 0.63 MG/3 ML Inhal Soln UD IH STA (09:31)
[2018-04-29] MEDS ORDERED: Levalbuterol 0.63 MG/3 ML Inhal Soln UD ONE (09:47)
[2018-04-29 09:55] LABS: EOS # 0.1 (0.0-0.7); EOS % 0.4 % (1.5-5.0); GRAN # 10.59 (1.4-6.5); GRAN % 75.9 % (50.0-68.0); HEMOGLOBIN 12.6 g/dL (14.0-18.0); LYMPH # 2.3 (1.2-3.4); LYMPH % 16.2 % (22.0-35.0); MEAN CELL VOLUME 95.8 fl (80.0-105.0); MEAN CORPUSCULAR HEMOGLOBIN 33.1 pg (25.0-35.0); MEAN CORPUSCULAR HGB CONC 34.5 g/dl (31.0-37.0); MEAN PLATELET VOLUME 9.6 fl (7.0-11.0); MONO % 7.5 % (1.0-6.0); RBC 3.81 10^6/uL (3.5-6.1); RED CELL DISTRIBUTION WIDTH 14.6 % (11.5-14.5); WHITE BLOOD COUNT 13.9 10^3/ul (4.5-11.0)
[2018-04-29 09:56] LABS: VENOUS BLOOD GAS BASE EXCESS 5.3 mmol/L (0.0-2.0); VENOUS BLOOD GAS PO2 43 mm/Hg (30-55); VENOUS BLOOD PH 7.41 (7.32-7.43)
[2018-04-29 10:04] LABS: INR 0.92; PARTIAL THROMBOPLASTIN TIME 23.7 Seconds (25.1-36.5); PROTHROMBIN TIME 10.6 SECONDS (9.4-12.5)
--- NOTE | 2018-04-29 10:04 | RAD ---
Date of service: 04/29/2018 HISTORY: dyspnea COMPARISON: 04/23/2018 FINDINGS: LUNGS: No active pulmonary disease. PLEURA: No significant pleural effusion identified, no pneumothorax apparent. CARDIOVASCULAR: Normal. OSSEOUS STRUCTURES: No significant abnormalities. VISUALIZED UPPER ABDOMEN: Normal. OTHER FINDINGS: None. IMPRESSION: No active disease.
[2018-04-29 10:33] LABS: ALB/GLOB RATIO 1.4 (1.1-1.8); ALBUMIN 3.4 g/dL (3.0-4.8); ALT/SGPT 31 U/L (7-56); AST/SGOT 21 U/L (17-59); BLOOD UREA NITROGEN 17 mg/dL (7-21); CALCIUM 8.8 mg/dL (8.4-10.5); GFR NON-AFRICAN AMERICAN > 60
[2018-04-29 10:42] LABS: B-TYPE NATRIURETIC PEPTIDE 826 pg/mL (0-450); TROPONIN I 0.04 ng/mL
[2018-04-29] MEDS ORDERED: Famotidine 20mg/50ml 20 MG in Premixed IV 50 EA IVPB STA (10:44)
[2018-04-29] MEDS ORDERED: Azithromycin 500MG/NS 250ml 500 MG/250 ML BAG IVPB STA (12:31)
[2018-04-29] MEDS ORDERED: cefTRIAXone 1 gm 1 GM/100 ML BAG IVPB STA (12:31)
--- NOTE | 2018-04-29 13:08 | CP.PCM.HP ---
History of Present Illness - History of Present Illness History of Present Illness: Vin Past Patient History - Infectious Disease Hx of Infectious Diseases: None - Tetanus Immunizations Tetanus Immunization: Unknown - Past Medical History & Family History Past Medical History?: Yes - Past Social History Smoking Status: Former Smoker - CARDIAC Hx Cardiac Disorders: Yes (CAD with stents, CABG, sinus bradycardia, cardiac arrythmias, angina) Hx Hypertension: Yes - PULMONARY Hx Chronic Obstructive Pulmonary Disease (COPD): Yes - NEUROLOGICAL Hx Neurological Disorder: Yes (peripheral neuropathy) Hx Dizziness: Yes Hx Migraine: Yes Hx Transient Ischemic Attacks (TIA): Yes Other/Comment: b/l legs burning numbnes, tingling - HEENT Hx HEENT Problems: Yes (eyeglasses, r eye lazy eye) Hx Cataracts: Yes - RENAL Hx Chronic Kidney Disease: Yes Hx Kidney Stones: Yes - ENDOCRINE/METABOLIC Hx Endocrine Disorders: No - HEMATOLOGICAL/ONCOLOGICAL Hx Blood Disorders: Yes Hx Anemia: Yes - INTEGUMENTARY Hx Dermatological Problems: Yes Other/Comment: VARICOSE 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, 2 small bruises to rcw and lcw, larger bruise left shoulder, thick hard toenails - MUSCULOSKELETAL/RHEUMATOLOGICAL Hx Musculoskeletal Disorders: Yes Hx Arthritis: Yes Hx Degenerative Joint Disease: Yes Hx Falls: Yes (past) Hx Fractures: Yes (RIB) Hx Gout: Yes Hx Unsteady Gait: Yes - GASTROINTESTINAL Hx Gastrointestinal Disorders: Yes (COLITIS,DIVERTICULOSIS) Hx Gall Bladder Disease: Yes (gallstones) Hx Gastroesophageal Reflux: Yes - GENITOURINARY/GYNECOLOGICAL Hx Genitourinary Disorders: Yes Hx Urinary Tract Infection: Yes - PSYCHIATRIC Hx Psychophysiologic Disorder: Yes (USED TO DRINK ALCOHOL.H/O ETOH ABUSE. QUIT.) Hx Anxiety: Yes Hx Depression: Yes Hx Post Traumatic Stress Disorder: Yes Hx Substance Use: Yes (quitcoke/heroin / occasional pot) Other/Comment: quit smoking 1 week ago, [facility],etoh abuse quit drinking sober 1 yr 6 months relapsed 04/03/18 then stopped again, personality disorder, smokes pot occasionally but quit heroin cocaine in , criminal charges in past, lives at [facility] - SURGICAL HISTORY Hx Cardiac Catheterization: Yes (CORONARY STENT) Hx Cholecystectomy: Yes Hx Coronary Stent: Yes Hx Open Heart Surgery: Yes (triple bypass) - ANESTHESIA Hx Anesthesia: Yes Hx Anesthesia Reactions: No Hx Malignant Hyperthermia: No Meds Allergies/Adverse Reactions: Allergies Allergy/AdvReac Type Severity Reaction Status Date / Time shellfish derived Allergy ANAPHYLAXIS Verified 04/29/18 09:14 Sulfa (Sulfonamide Allergy RASH Verified 04/29/18 09:14 Antibiotics) Results - Vital Signs Recent Vital Signs: Last Vital Signs Temp 97.6 F 04/29/18 09:20 Pulse 69 04/29/18 12:21 Resp 18 04/29/18 12:21 BP 115/64 04/29/18 12:21 Pulse Ox 97 04/29/18 12:21 - Labs Result Diagrams: 04/29/18 09:15 04/29/18 10:10 Labs: Laboratory Results - last 24 hr 04/29/18 04/29/18 04/29/18 09:15 09:15 09:15 WBC 13.9 H D RBC 3.81 Hgb 12.6 L Hct 36.5 L MCV 95.8 MCH 33.1 MCHC 34.5 RDW 14.6 H Plt Count 259 MPV 9.6 Gran % 75.9 H Lymph % (Auto) 16.2 L [place] % (Auto) 7.5 H Eos % (Auto) 0.4 L Baso % (Auto) 0.0 Gran # 10.59 H Lymph # (Auto) 2.3 [place] # (Auto) 1.0 H Eos # (Auto) 0.1 Baso # (Auto) 0.00 PT 10.6 INR 0.92 APTT 23.7 L pO2 43 VBG pH 7.41 VBG pCO2 49.0 VBG HCO3 31.1 H VBG Total CO2 32.6 H VBG O2 Sat (Calc) 83.4 H VBG Base Excess 5.3 H VBG Potassium 4.6 Sodium 133.0 Chloride 102.0 Glucose 83 Lactate 1.4 FiO2 21.0 Potassium Carbon Dioxide Anion Gap BUN Creatinine Est GFR ( Amer) Est GFR (Non-Af Amer) Random Glucose Calcium Total Bilirubin AST ALT Alkaline Phosphatase Troponin I NT-Pro-B Natriuret Pep Total Protein Albumin Globulin Albumin/Globulin Ratio Venous Blood Potassium 4.6 04/29/18 10:10 WBC RBC Hgb Hct MCV MCH MCHC RDW Plt Count MPV Gran % Lymph % (Auto) [place] % (Auto) Eos % (Auto) Baso % (Auto) Gran # Lymph # (Auto) [place] # (Auto) Eos # (Auto) Baso # (Auto) PT INR APTT pO2 VBG pH VBG pCO2 VBG HCO3 VBG Total CO2 VBG O2 Sat (Calc) VBG Base Excess VBG Potassium Sodium 133 Chloride 101 Glucose Lactate FiO2 Potassium 3.8 Carbon Dioxide 27 Anion Gap 9 L BUN 17 Creatinine 0.6 L Est GFR ( Amer) > 60 Est GFR (Non-Af Amer) > 60 Random Glucose 86 Calcium 8.8 Total Bilirubin 0.7 AST 21 ALT 31 Alkaline Phosphatase 45 Troponin I 0.04 D NT-Pro-B Natriuret Pep 826 H Total Protein 5.9 Albumin 3.4 Globulin 2.5 Albumin/Globulin Ratio 1.4 Venous Blood Potassium
--- NOTE | 2018-04-29 13:13 | CP.PCM.HP ---
History of Present Illness - History of Present Illness History of Present Illness: [facility] Resident- Hospitalist H&P CC: Chest Pain and SOB HPI: Patient is a 63 year old male with past medical history of HTN, COPD, TIA, CAD with stents, CABG, ETOH abuse, and active tobacco abuse who presents to the emergency department for evaluation and treatment of chest pain and shortness of breath which began today while ambulating. States the pain originated in the retrosternal region and radiated to the back and down his abdomen. Pain is characterized as a burning sensation and was associated with sweating and nausea. Rated an 8/10. Also admits associated SOB and nonproductive cough. Admits to dull headache localized to the temporal region bilaterally after taking nitro. Denies fever, chills, dizziness, visual/auditory complaints, abdominal pain, vomiting, diarrhea, constipation. 12 point ROS negative except as indicated PMHx: HTN, COPD, TIA, CAD with stents, CABG, EtOH abuse, and active tobacco abuse PSHx: Carotid enarterectomy, cholecystectomy Social Hx: hx of 2 ppd for 30 years, 2cigs/day, denies illicit drug use, admits to alcohol abuse- last drink was ~1 month ago Medications: carvidolol, atorvastatin, asa, meloxicam, ventolin, albuterol, benzonate, B12, folate, omeprazole Allergies: Shellfish derived substances, Sulfa Primary Medical Doctor: Dr. Damon Physical Examination: - Constitutional Appears: Non-toxic, No Acute Distress, Unkempt - Head Exam Head Exam: ATRAUMATIC, NORMAL INSPECTION - Eye Exam Eye Exam: EOMI, Normal appearance. absent: Conjunctival injection, Scleral icterus - ENT Exam ENT Exam: Mucous Membranes Moist - Neck Exam Neck exam: Positive for: Full Rom. Negative for: Thyromegaly - Respiratory Exam Respiratory Exam: End-expiratory wheezing diffusely, Chest Wall Tenderness on palpation - Cardiovascular Exam Cardiovascular Exam: Regular rate, REGULAR RHYTHM, +S1, +S2 - GI/Abdominal Exam GI & Abdominal Exam: Normal Bowel Sounds, Soft. absent: Distended, Rigid, Tenderness - Extremities Exam Extremities exam: Positive for: normal capillary refill, Negative for: calf tenderness, pedal edema, tenderness - Neurological Exam Neurological exam: awake and alert, oriented to self/location/time, responds to verbal stimuli, follows commands, moves extremities past midline - Skin Skin Exam: Dry, Intact, Echymosis on abdominal wall 2/2 from prevoius heparin injection sites, Warm Assessment and Plan: Patient is a 63 year old male with past medical history of HTN, COPD, TIA, CAD with stents, CABG, ETOH abuse, and active tobacco abuse who admitted for evaluation and treatment of chest pain and SOB. Atypical Chest pain, Hx of CAD/CABG - Rule out ACS - Trop 0.04 in ED, trended q6h x 1 - EKG in ED- NSR No ST-T wave changes, HR 78bpm, QTc 360ms - Cardiology consulted- (Dr. Russell) consulted- appreciate recommendations - Continue daily ASA 81mg and Plavix 75mg, statin, and ACEi - Restarting home coreg BID with holding parameters Shortness of breath - Likely secondary to COPD exacerbation secondary to medication noncompliance and tobacco abuse - Duobnebs q4 scheduled - Continue home symbicort and singulair - IV Solumedrol 40mg q12 - IV Zithromax for COPD exacerbation coverage Hx of HTN -continue home coreg -BP currently controlled in 130's/90's,monitor closely Tobacco abuse - nicotine patch prn tobacco with - encourage cessation of tobacco use Prophylaxis: - DVT- SCDs - GI- famotidine Patient seen, case discussed with, and plan approved by attending physician, Dr. Sandoval. Present on Admission - Present on Admission Any Indicators Present on Admission: No Past Patient History - Infectious Disease Hx of Infectious Diseases: None - Tetanus Immunizations Tetanus Immunization: Unknown - Past Medical History & Family History Past Medical History?: Yes - Past Social History Smoking Status: Former Smoker - CARDIAC Hx Cardiac Disorders: Yes (CAD with stents, CABG, sinus bradycardia, cardiac arrythmias, angina) Hx Hypertension: Yes - PULMONARY Hx Chronic Obstructive Pulmonary Disease (COPD): Yes - NEUROLOGICAL Hx Neurological Disorder: Yes (peripheral neuropathy) Hx Dizziness: Yes Hx Migraine: Yes Hx Transient Ischemic Attacks (TIA): Yes Other/Comment: b/l legs burning numbnes, tingling - HEENT Hx HEENT Problems: Yes (eyeglasses, r eye lazy eye) Hx Cataracts: Yes - RENAL Hx Chronic Kidney Disease: Yes Hx Kidney Stones: Yes - ENDOCRINE/METABOLIC Hx Endocrine Disorders: No - HEMATOLOGICAL/ONCOLOGICAL Hx Blood Disorders: Yes Hx Anemia: Yes - INTEGUMENTARY Hx Dermatological Problems: Yes Other/Comment: VARICOSE 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, 2 small bruises to rcw and lcw, larger bruise left shoulder, thick hard toenails - MUSCULOSKELETAL/RHEUMATOLOGICAL Hx Musculoskeletal Disorders: Yes Hx Arthritis: Yes Hx Degenerative Joint Disease: Yes Hx Falls: Yes (past) Hx Fractures: Yes (RIB) Hx Gout: Yes Hx Unsteady Gait: Yes - GASTROINTESTINAL Hx Gastrointestinal Disorders: Yes (COLITIS,DIVERTICULOSIS) Hx Gall Bladder Disease: Yes (gallstones) Hx Gastroesophageal Reflux: Yes - GENITOURINARY/GYNECOLOGICAL Hx Genitourinary Disorders: Yes Hx Urinary Tract Infection: Yes - PSYCHIATRIC Hx Psychophysiologic Disorder: Yes (USED TO DRINK ALCOHOL.H/O ETOH ABUSE. QUIT.) Hx Anxiety: Yes Hx Depression: Yes Hx Post Traumatic Stress Disorder: Yes Hx Substance Use: Yes (quitcoke/heroin / occasional pot) Other/Comment: quit smoking 1 week ago, [facility],etoh abuse quit drinking sober 1 yr 6 months relapsed 04/03/18 then stopped again, personality disorder, smokes pot occasionally but quit heroin cocaine in , criminal charges in past, lives at [facility] - SURGICAL HISTORY Hx Cardiac Catheterization: Yes (CORONARY STENT) Hx Cholecystectomy: Yes Hx Coronary Stent: Yes Hx Open Heart Surgery: Yes (triple bypass) - ANESTHESIA Hx Anesthesia: Yes Hx Anesthesia Reactions: No Hx Malignant Hyperthermia: No Meds Allergies/Adverse Reactions: Allergies Allergy/AdvReac Type Severity Reaction Status Date / Time shellfish derived Allergy ANAPHYLAXIS Verified 04/29/18 09:14 Sulfa (Sulfonamide Allergy RASH Verified 04/29/18 09:14 Antibiotics) Results - Vital Signs Recent Vital Signs: Last Vital Signs Temp 97.6 F 04/29/18 09:20 Pulse 69 04/29/18 12:21 Resp 18 04/29/18 12:21 BP 115/64 04/29/18 12:21 Pulse Ox 97 04/29/18 12:21 - Labs Result Diagrams: 04/29/18 09:15 04/29/18 10:10 Labs: Laboratory Results - last 24 hr 04/29/18 04/29/18 04/29/18 09:15 09:15 09:15 WBC 13.9 H D RBC 3.81 Hgb 12.6 L Hct 36.5 L MCV 95.8 MCH 33.1 MCHC 34.5 RDW 14.6 H Plt Count 259 MPV 9.6 Gran % 75.9 H Lymph % (Auto) 16.2 L [place] % (Auto) 7.5 H Eos % (Auto) 0.4 L Baso % (Auto) 0.0 Gran # 10.59 H Lymph # (Auto) 2.3 [place] # (Auto) 1.0 H Eos # (Auto) 0.1 Baso # (Auto) 0.00 PT 10.6 INR 0.92 APTT 23.7 L pO2 43 VBG pH 7.41 VBG pCO2 49.0 VBG HCO3 31.1 H VBG Total CO2 32.6 H VBG O2 Sat (Calc) 83.4 H VBG Base Excess 5.3 H VBG Potassium 4.6 Sodium 133.0 Chloride 102.0 Glucose 83 Lactate 1.4 FiO2 21.0 Potassium Carbon Dioxide Anion Gap BUN Creatinine Est GFR ( Amer) Est GFR (Non-Af Amer) Random Glucose Calcium Total Bilirubin AST ALT Alkaline Phosphatase Troponin I NT-Pro-B Natriuret Pep Total Protein Albumin Globulin Albumin/Globulin Ratio Venous Blood Potassium 4.6 04/29/18 10:10 WBC RBC Hgb Hct MCV MCH MCHC RDW Plt Count MPV Gran % Lymph % (Auto) [place] % (Auto) Eos % (Auto) Baso % (Auto) Gran # Lymph # (Auto) [place] # (Auto) Eos # (Auto) Baso # (Auto) PT INR APTT pO2 VBG pH VBG pCO2 VBG HCO3 VBG Total CO2 VBG O2 Sat (Calc) VBG Base Excess VBG Potassium Sodium 133 Chloride 101 Glucose Lactate FiO2 Potassium 3.8 Carbon Dioxide 27 Anion Gap 9 L BUN 17 Creatinine 0.6 L Est GFR ( Amer) > 60 Est GFR (Non-Af Amer) > 60 Random Glucose 86 Calcium 8.8 Total Bilirubin 0.7 AST 21 ALT 31 Alkaline Phosphatase 45 Troponin I 0.04 D NT-Pro-B Natriuret Pep 826 H Total Protein 5.9 Albumin 3.4 Globulin 2.5 Albumin/Globulin Ratio 1.4 Venous Blood Potassium
[2018-04-29 17:48] LABS: TROPONIN I 0.02 ng/mL
[2018-04-29] MEDS: Albuterol-Ipratrop 3 mg / 0.5 (3 ml) UD IH SCH (20:00)
[2018-04-29] MEDS ORDERED: Influenza Vaccine 60 mcg/0.5 mL SYR (4YR UP) IM ONE (21:09)
[2018-04-29] MEDS ORDERED: Pneumococcal 23-Valent Vaccine IM ONE (21:09)
[2018-04-30] MEDS: Albuterol-Ipratrop 3 mg / 0.5 (3 ml) UD IH SCH ×7 (00:20→23:50)
[2018-04-30 02:32] VITALS: O2SAT 99
--- NOTE | 2018-04-30 06:37 | CARD ---
APPROVED REPORT Date of service: 04/29/2018 EKG Measurement Heart [id number] <Conclusion> Normal sinus rhythm Normal ECG
--- NOTE | 2018-04-30 06:39 | CARD ---
APPROVED REPORT Date of service: 04/29/2018 EKG Measurement Heart [id number] <Conclusion> Normal sinus rhythm Early repolarization Normal ECG
[2018-04-30] MEDS ORDERED: MethylPREDNISolone 40 mg Vial IVP SCH (10:00)
[2018-04-30] MEDS: Azithromycin 500MG/NS 250ml 500 MG/250 ML BAG IVPB SCH (10:15)
--- NOTE | 2018-04-30 16:19 | CP.PCM.PN ---
<Chris Correa - Last Filed: 04/30/18 16:49> Subjective - Date & Time of Evaluation Date of Evaluation: 04/30/18 Time of Evaluation: 16:10 - Subjective Subjective: Pt seen and examined this morning. Reports no new complaints. Objective - Vital Signs/Intake and Output Vital Signs (last 24 hours): Temp Pulse Resp BP Pulse Ox 97.8 F 70 19 153/73 H 99 04/30/18 00:01 04/30/18 10:20 04/30/18 00:01 04/30/18 10:20 04/30/18 00:01 Intake and Output: 04/30/18 04/30/18 06:59 18:59 Intake Total 120 Output Total 0 Balance 120 - Medications Medications: Current Medications Albuterol/Ipratropium (Duoneb 3 Mg/0.5 Mg (3 Ml) Ud) 3 ml IH [id number] [facility] Last Admin: 04/30/18 15:06 Dose: Not Given Aspirin (Ecotrin) 81 mg PO DAILY [facility] Last Admin: 04/30/18 10:19 Dose: 81 mg Atorvastatin Calcium (Lipitor) 40 mg PO DIN [facility] Last Admin: 04/29/18 18:13 Dose: 40 mg Carvedilol (Coreg) 12.5 mg PO BID [facility] Last Admin: 04/30/18 10:20 Dose: 12.5 mg Clopidogrel Bisulfate (Plavix) 75 mg PO DAILY [facility] Last Admin: 04/30/18 10:18 Dose: 75 mg Famotidine (Pepcid) 20 mg PO 0800 [facility] Azithromycin (Zithromax 500mg In Ns) 500 mg in 250 mls @ 167 mls/hr IVPB DAILY [facility]; Protocol Last Admin: 04/30/18 10:15 Dose: 167 mls/hr Ibuprofen (Motrin Tab) 400 mg PO Q6H PRN PRN Reason: Pain, moderate (4-7) Last Admin: 04/30/18 15:18 Dose: 400 mg Lisinopril (Zestril) 5 mg PO DAILY [facility] Last Admin: 04/30/18 10:18 Dose: 5 mg Methylprednisolone (Solu-Medrol) 20 mg IVP Q12 [facility] Montelukast Sodium (Singulair) 10 mg PO DAILY [facility] Last Admin: 04/30/18 10:19 Dose: 10 mg Nicotine (Nicoderm Cq) 1 patch TD DAILY PRN PRN Reason: URGE TO SMOKE Last Admin: 04/29/18 15:11 Dose: 1 patch Non-Formulary Medication (Budesonide/Formoterol Fumarate [Symbicort 80-4.5 Mcg Inhaler]) 2 aer IH Q12 [facility] Last Admin: 04/30/18 10:20 Dose: Not Given - Labs Labs: 04/29/18 09:15 04/29/18 10:10 PT 10.6 SECONDS (9.4-12.5) 04/29/18 09:15 INR 0.92 04/29/18 09:15 APTT 23.7 Seconds (25.1-36.5) L 04/29/18 09:15 - Constitutional Appears: No Acute Distress - Head Exam Head Exam: ATRAUMATIC, NORMOCEPHALIC - ENT Exam ENT Exam: Mucous Membranes Moist - Respiratory Exam Respiratory Exam: Clear to Ausculation Bilateral, NORMAL BREATHING PATTERN. absent: Respiratory Distress - Cardiovascular Exam Cardiovascular Exam: RRR, +S1, +S2 - GI/Abdominal Exam GI & Abdominal Exam: Soft - Skin Skin Exam: Dry, Intact, Warm Assessment and Plan - Assessment and Plan (Free Text) Assessment: Patient is a 63 year old male with PMH of HTN, COPD, TIA, CAD with stents, CABG, ETOH abuse, and active tobacco abuse who admitted for evaluation and treatment of chest pain and SOB. Plan: Atypical Chest pain, Hx of CAD/CABG, cardiac stents - Trop negative - EKG shows no ischemic changes - ASA 81mg - Plavix 75mg - Statin - ACEi - Cardiology consulted, Dr. Russell consulted Shortness of breath - Likely secondary to COPD exacerbation secondary to medication noncompliance and tobacco abuse - Duobnebs q4 scheduled - Continue home symbicort and singulair - IV Solumedrol 20mg q12 - IV Zithromax for COPD exacerbation coverage Hx of HTN -continue home coreg Tobacco abuse - nicotine patch prn - encourage cessation Ppx - SCDs - famotidine Pt seen, examined, assessment and plan discussed with Dr Jayla Correa PGY1 <Ministerio Dickerson - Last Filed: 04/30/18 17:02> Objective - Vital Signs/Intake and Output Vital Signs (last 24 hours): Temp Pulse Resp BP Pulse Ox 97.8 F 70 19 153/73 H 99 04/30/18 00:01 04/30/18 10:20 04/30/18 00:01 04/30/18 10:20 04/30/18 00:01 Intake and Output: 04/30/18 04/30/18 06:59 18:59 Intake Total 120 Output Total 0 Balance 120 - Medications Medications: Current Medications Albuterol/Ipratropium (Duoneb 3 Mg/0.5 Mg (3 Ml) Ud) 3 ml IH [id number] [facility] Last Admin: 04/30/18 15:06 Dose: Not Given Aspirin (Ecotrin) 81 mg PO DAILY [facility] Last Admin: 04/30/18 10:19 Dose: 81 mg Atorvastatin Calcium (Lipitor) 40 mg PO DIN [facility] Last Admin: 04/29/18 18:13 Dose: 40 mg Carvedilol (Coreg) 12.5 mg PO BID [facility] Last Admin: 04/30/18 10:20 Dose: 12.5 mg Clopidogrel Bisulfate (Plavix) 75 mg PO DAILY [facility] Last Admin: 04/30/18 10:18 Dose: 75 mg Famotidine (Pepcid) 20 mg PO 0800 [facility] Azithromycin (Zithromax 500mg In Ns) 500 mg in 250 mls @ 167 mls/hr IVPB DAILY [facility]; Protocol Last Admin: 04/30/18 10:15 Dose: 167 mls/hr Ibuprofen (Motrin Tab) 400 mg PO Q6H PRN PRN Reason: Pain, moderate (4-7) Last Admin: 04/30/18 15:18 Dose: 400 mg Lisinopril (Zestril) 5 mg PO DAILY [facility] Last Admin: 04/30/18 10:18 Dose: 5 mg Methylprednisolone (Solu-Medrol) 20 mg IVP Q12 [facility] Montelukast Sodium (Singulair) 10 mg PO DAILY [facility] Last Admin: 04/30/18 10:19 Dose: 10 mg Nicotine (Nicoderm Cq) 1 patch TD DAILY PRN PRN Reason: URGE TO SMOKE Last Admin: 04/29/18 15:11 Dose: 1 patch Non-Formulary Medication (Budesonide/Formoterol Fumarate [Symbicort 80-4.5 Mcg Inhaler]) 2 aer IH Q12 [facility] Last Admin: 04/30/18 10:20 Dose: Not Given - Labs Labs: 04/29/18 09:15 04/29/18 10:10 PT 10.6 SECONDS (9.4-12.5) 04/29/18 09:15 INR 0.92 04/29/18 09:15 APTT 23.7 Seconds (25.1-36.5) L 04/29/18 09:15 Attending/Attestation - Attestation I have personally seen and examined this patient.: Yes I have fully participated in the care of the patient.: Yes I have reviewed all pertinent clinical information, including history, physical exam and plan: Yes Notes (Text): 04/30/18 16:58 63 year old male with past medical history of hypertension, COPD, TIA, CAD s/p stents s/p CABG, chronic smoker and ETOH abuse who presented with complaint of chest pain and shortness of breath. Serial cardiac enzymes were negative and ACS was ruled out. Cardiology evaluation is pending. He is on iv steroids for COPD exacerbation. Wheezing is improving so his steroids are being tapered today. He was counselled on smoking and alcohol cessation; unfortunately he fails to comply. He is on pepcid for GERD; will switch to protonix. Ministerio Dickerson MD Hospitalist.
[2018-04-30] MEDS: MethylPREDNISolone 40 mg Vial IVP SCH (21:48)
--- NOTE | 2018-05-01 00:32 | CON ---
DATE: 04/30/2018 CARDIOLOGY CONSULT HISTORY OF PRESENT ILLNESS: The patient is a 63-year-old male who has history of coronary artery disease, status post recent coronary stenting to saphenous vein graft to the ramus intermedius artery with drug-eluting stent. The patient has a history of chronic obstructive lung disease and he continues to smoke. He was recently discharged after he was admitted for atypical chest pain. Myocardial infarction is ruled out and the patient was treated for exacerbation of chronic obstructive lung disease. He presented at this time because of midsternal chest pain radiating to the back associated with shortness of breath. In my own questioning to the patient, the patient was abusive and used fowl languages because of the fact that he was not getting enough pain medication. SOCIAL HISTORY: The patient is a smoker. He lives in [facility]. MEDICATIONS: Coreg 12.5 mg twice a day, albuterol inhaler every 4 hours, aspirin 81 mg once a day, Lipitor 40 mg once a day, Nicoderm patch, Plavix 75 mg once a day, Singulair 10 mg once a day, Solu-Medrol 20 mg intravenously twice a day, Zestril 5 mg once a day, Zithromax 500 mg intravenously daily. REVIEW OF SYSTEMS: No fever or chills, no nausea or vomiting and no dizziness or syncope. PHYSICAL EXAMINATION GENERAL: The patient is an elderly male who does not appear to be in any acute distress. VITAL SIGNS: Blood pressure 153/73, heart rate 70, and earlier heart rate early this morning was 47, temperature 97.8, respirations 19. HEENT: Normocephalic. CHEST: Diffuse bilateral rhonchi. HEART: S1, S2 regular. ABDOMEN: Soft. EXTREMITIES: No edema. LABORATORY DATA: Blood culture was negative 24 hours. SMA-7: Sodium 133, potassium 3.8, chloride 101, CO2 of 27, glucose 86, BUN 17, creatinine 0.6. Two sets of troponin are 0.04 and 0.02, proBNP is 826. INR is 0.92, PTT 23.7. Hemoglobin and hematocrit 12.6 and 36.5, white count 13.9, platelet count 159,000. EKG revealed normal sinus rhythm at the rate of 78. Recent echocardiographic study performed on 04/04/2018 revealed normal left ventricular size with significant ejection fraction with mild pulmonary hypertension and reduced compliance. Yesterday's chest x-ray report, no active disease and recent chest CT scan on 04/02/2018 revealed no acute findings. ASSESSMENT: 1. Exacerbation of chronic obstructive lung disease. 2. Atypical chest pain. 3. History of recent coronary stenting to saphenous vein graft to the ramus intermedius artery. 4. Periods of sinus bradycardia. RECOMMENDATIONS: Continue IV Zithromax 500 mg every 24 hours, continue Coreg 12.5 mg twice a day, hold for heart rate below 60. Continue aspirin 81 mg once a day, Plavix 75 mg once a day, Lipitor 40 mg once a day, Solu-Medrol 20 mg intravenously every 12 hours and Zestril 5 mg daily. Mike Young MD
[2018-05-01] MEDS: Albuterol-Ipratrop 3 mg / 0.5 (3 ml) UD IH SCH ×8 (04:40→23:57)
[2018-05-01] MEDS: Pantoprazole 40 mg EC Tab PO SCH ×2 (05:20→08:51)
[2018-05-01 06:52] LABS: GRAN # 6.35 (1.4-6.5); GRAN % 84.3 % (50.0-68.0); HEMOGLOBIN 11.7 g/dL (14.0-18.0); LYMPH # 0.8 (1.2-3.4); LYMPH % 10.3 % (22.0-35.0); MEAN CELL VOLUME 94.8 fl (80.0-105.0); MEAN CORPUSCULAR HEMOGLOBIN 31.8 pg (25.0-35.0); MEAN CORPUSCULAR HGB CONC 33.5 g/dl (31.0-37.0); MEAN PLATELET VOLUME 9.2 fl (7.0-11.0); MONO # 0.4 (0.1-0.6); MONO % 5.4 % (1.0-6.0); RBC 3.68 10^6/uL (3.5-6.1); RED CELL DISTRIBUTION WIDTH 14.8 % (11.5-14.5); WHITE BLOOD COUNT 7.5 10^3/ul (4.5-11.0)
[2018-05-01 07:25] LABS: ALB/GLOB RATIO 1.3 (1.1-1.8); ALBUMIN 3.6 g/dL (3.0-4.8); ALT/SGPT 28 U/L (7-56); AST/SGOT 26 U/L (17-59); BLOOD UREA NITROGEN 24 mg/dL (7-21); CALCIUM 9.1 mg/dL (8.4-10.5); GFR NON-AFRICAN AMERICAN > 60
[2018-05-01] MEDS: MethylPREDNISolone 40 mg Vial IVP SCH (09:56)
[2018-05-01] MEDS: Azithromycin 500MG/NS 250ml 500 MG/250 ML BAG IVPB SCH (10:12)
--- NOTE | 2018-05-01 14:09 | CP.PCM.PN ---
<Chris Correa - Last Filed: 05/01/18 14:18> Subjective - Date & Time of Evaluation Date of Evaluation: 05/01/18 Time of Evaluation: 14:05 - Subjective Subjective: Pt seen and examined this morning at bedside. No new complaints Objective - Vital Signs/Intake and Output Vital Signs (last 24 hours): Temp Pulse Resp BP Pulse Ox 97.1 F L 63 19 118/53 L 99 05/01/18 12:00 05/01/18 12:00 05/01/18 12:00 05/01/18 12:00 05/01/18 00:01 Intake and Output: 05/01/18 05/01/18 06:59 18:59 Intake Total 240 Output Total 700 Balance -460 - Medications Medications: Current Medications Albuterol/Ipratropium (Duoneb 3 Mg/0.5 Mg (3 Ml) Ud) 3 ml IH [id number] [facility] Last Admin: 05/01/18 09:32 Dose: Not Given Aspirin (Ecotrin) 81 mg PO DAILY [facility] Last Admin: 05/01/18 09:57 Dose: 81 mg Atorvastatin Calcium (Lipitor) 40 mg PO DIN [facility] Last Admin: 04/30/18 18:52 Dose: 40 mg Carvedilol (Coreg) 12.5 mg PO BID [facility] Last Admin: 05/01/18 09:57 Dose: 12.5 mg Clopidogrel Bisulfate (Plavix) 75 mg PO DAILY [facility] Last Admin: 05/01/18 09:57 Dose: 75 mg Azithromycin (Zithromax 500mg In Ns) 500 mg in 250 mls @ 167 mls/hr IVPB DAILY [facility]; Protocol Last Admin: 05/01/18 10:12 Dose: 167 mls/hr Ibuprofen (Motrin Tab) 400 mg PO Q6H PRN PRN Reason: Pain, moderate (4-7) Last Admin: 05/01/18 10:14 Dose: 400 mg Lisinopril (Zestril) 5 mg PO DAILY [facility] Last Admin: 05/01/18 09:57 Dose: 5 mg Methylprednisolone (Solu-Medrol) 20 mg IVP DAILY [facility] Montelukast Sodium (Singulair) 10 mg PO DAILY [facility] Last Admin: 05/01/18 09:57 Dose: 10 mg Nicotine (Nicoderm Cq) 1 patch TD DAILY PRN PRN Reason: URGE TO SMOKE Last Admin: 04/29/18 15:11 Dose: 1 patch Non-Formulary Medication (Budesonide/Formoterol Fumarate [Symbicort 80-4.5 Mcg Inhaler]) 2 aer IH Q12 [facility] Last Admin: 05/01/18 09:58 Dose: Not Given Pantoprazole Sodium (Protonix Ec Tab) 40 mg PO 0600 [facility] Last Admin: 05/01/18 08:51 Dose: 40 mg - Labs Labs: 05/01/18 05:45 05/01/18 05:45 PT 10.6 SECONDS (9.4-12.5) 04/29/18 09:15 INR 0.92 04/29/18 09:15 APTT 23.7 Seconds (25.1-36.5) L 04/29/18 09:15 - Constitutional Appears: No Acute Distress - Head Exam Head Exam: ATRAUMATIC, NORMOCEPHALIC - Eye Exam Eye Exam: EOMI - ENT Exam ENT Exam: Mucous Membranes Moist, Normal Exam - Respiratory Exam Respiratory Exam: Clear to Ausculation Bilateral, Wheezes, NORMAL BREATHING PATTERN. absent: Accessory Muscle Use, Respiratory Distress - Cardiovascular Exam Cardiovascular Exam: RRR, +S1, +S2. absent: Diastolic murmur, Murmur - GI/Abdominal Exam GI & Abdominal Exam: Soft, Normal Bowel Sounds. absent: Tenderness, Rebound - Extremities Exam Extremities Exam: Full ROM. absent: Calf Tenderness, Pedal Edema - Neurological Exam Neurological Exam: Alert, Awake - Psychiatric Exam Psychiatric exam: Normal Affect, Normal Mood - Skin Skin Exam: Dry, Intact, Warm Assessment and Plan - Assessment and Plan (Free Text) Assessment: Patient is a 63 year old male with PMH of HTN, COPD, TIA, CAD with stents, CABG, ETOH abuse, and active tobacco abuse who admitted for evaluation and treatment of chest pain and SOB. Plan: Atypical Chest pain, Hx of CAD/CABG, cardiac stents - Trop negative - EKG shows no ischemic changes - ASA 81, Plavix 75, Lisinopril 5, lipitor 40 - discontinued Tele - Cardiology consulted, Dr. Russell consulted Shortness of breath - Likely secondary to COPD exacerbation - secondary to medication noncompliance and tobacco abuse - Duobnebs q4 scheduled - Continue symbicort - continue singulair - IV Solumedrol 20mg Daily - IV Zithromax Hx of HTN -continue home coreg Tobacco abuse - nicotine patch prn - encourage cessation Ppx - SCDs - protonix Pt seen, examined, assessment and plan discussed with Dr Jayla Correa PGY1, Internal Medicine Resident <Ministerio Dickerson - Last Filed: 05/01/18 14:44> Objective - Vital Signs/Intake and Output Vital Signs (last 24 hours): Temp Pulse Resp BP Pulse Ox 97.1 F L 63 19 118/53 L 99 05/01/18 12:00 05/01/18 12:00 05/01/18 12:00 05/01/18 12:00 05/01/18 00:01 Intake and Output: 05/01/18 05/01/18 06:59 18:59 Intake Total 240 Output Total 700 Balance -460 - Medications Medications: Current Medications Albuterol/Ipratropium (Duoneb 3 Mg/0.5 Mg (3 Ml) Ud) 3 ml IH [id number] [facility] Last Admin: 05/01/18 13:00 Dose: 3 ml Aspirin (Ecotrin) 81 mg PO DAILY [facility] Last Admin: 05/01/18 09:57 Dose: 81 mg Atorvastatin Calcium (Lipitor) 40 mg PO DIN [facility] Last Admin: 04/30/18 18:52 Dose: 40 mg Azithromycin (Zithromax) 500 mg PO DAILY [facility] Stop: 18 10:01 Carvedilol (Coreg) 12.5 mg PO BID [facility] Last Admin: 05/01/18 09:57 Dose: 12.5 mg Clopidogrel Bisulfate (Plavix) 75 mg PO DAILY [facility] Last Admin: 05/01/18 09:57 Dose: 75 mg Ibuprofen (Motrin Tab) 400 mg PO Q6H PRN PRN Reason: Pain, moderate (4-7) Last Admin: 05/01/18 10:14 Dose: 400 mg Lisinopril (Zestril) 5 mg PO DAILY [facility] Last Admin: 05/01/18 09:57 Dose: 5 mg Methylprednisolone (Solu-Medrol) 20 mg IVP DAILY [facility] Montelukast Sodium (Singulair) 10 mg PO DAILY [facility] Last Admin: 05/01/18 09:57 Dose: 10 mg Nicotine (Nicoderm Cq) 1 patch TD DAILY PRN PRN Reason: URGE TO SMOKE Last Admin: 04/29/18 15:11 Dose: 1 patch Non-Formulary Medication (Budesonide/Formoterol Fumarate [Symbicort 80-4.5 Mcg Inhaler]) 2 aer IH Q12 [facility] Last Admin: 05/01/18 09:58 Dose: Not Given Pantoprazole Sodium (Protonix Ec Tab) 40 mg PO 0600 [facility] Last Admin: 05/01/18 08:51 Dose: 40 mg - Labs Labs: 05/01/18 05:45 05/01/18 05:45 PT 10.6 SECONDS (9.4-12.5) 04/29/18 09:15 INR 0.92 04/29/18 09:15 APTT 23.7 Seconds (25.1-36.5) L 04/29/18 09:15 Attending/Attestation - Attestation I have personally seen and examined this patient.: Yes I have fully participated in the care of the patient.: Yes I have reviewed all pertinent clinical information, including history, physical exam and plan: Yes Notes (Text): 05/01/18 14:42 63 year old male with past medical history of hypertension, COPD, TIA, CAD s/p stents s/p CABG, chronic smoker and ETOH abuse who presented with complaint of chest pain and shortness of breath. Serial cardiac enzymes were negative and ACS was ruled out. Cardiology evaluation was appreciated. He is on iv steroids and duonebs for COPD exacerbation. He was counselled on smoking and alcohol cessation; unfortunately he fails to comply. Will continue to taper steroids today. Continue with protonix for GERD. Overall his symptoms are improving. Anticipate d/c planning tomorrow. Ministerio Dickerson MD Hospitalist.
--- NOTE | 2018-05-01 16:10 | PN ---
DATE: 05/01/2018 FOLLOWUP SUBJECTIVE: The patient is less abusive today. He is still experiencing shortness of breath and wheezing as well as a productive cough. PHYSICAL EXAMINATION: VITAL SIGNS: Blood pressure 129/69, heart rate 81, temperature 97.7, respirations 20. HEENT: Normocephalic. CHEST: Diffuse bilateral rhonchi and scattered wheezing. HEART: S1 and S2 regular. EXTREMITIES: No edema. LABORATORY DATA: Hemoglobin and hematocrit 11.7 and 34.9, white count and platelet count are within normal limits. Today's BUN and creatinine are 24 and 0.7. The rest of SMA-7 is within normal limit. Liver enzymes are within normal limit. ASSESSMENT: 1. Exacerbation of chronic obstructive lung disease. 2. Coronary artery disease, status post coronary artery bypass surgery with recent stenting to the saphenous vein graft to the ramus intermedius artery with drug-eluting stent. 3. Hypertension. RECOMMENDATIONS: Continue current IV Zithromax 500 mg daily, continue Zestril 5 mg once a day, Solu-Medrol 20 mg intravenously every 12 hours, Plavix 75 mg once a day, Nicoderm patch, Lipitor 40 mg once a day, aspirin 81 mg once a day, Coreg 12.5 mg twice a day. Case was discussed with the medical team. Mike Young MD
[2018-05-01 17:51] VITALS: RESP 18; TEMP 97.6
[2018-05-02] MEDS: Albuterol-Ipratrop 3 mg / 0.5 (3 ml) UD IH SCH ×3 (04:00→11:21)
[2018-05-02] MEDS: Pantoprazole 40 mg EC Tab PO SCH (05:43)
[2018-05-02 07:52] LABS: EOS % 0.3 % (1.5-5.0); GRAN # 5.69 (1.4-6.5); GRAN % 60.3 % (50.0-68.0); HEMOGLOBIN 12.4 g/dL (14.0-18.0); LYMPH % 31.4 % (22.0-35.0); MEAN CELL VOLUME 95.8 fl (80.0-105.0); MEAN CORPUSCULAR HEMOGLOBIN 32.4 pg (25.0-35.0); MEAN CORPUSCULAR HGB CONC 33.8 g/dl (31.0-37.0); MEAN PLATELET VOLUME 9.1 fl (7.0-11.0); MONO # 0.8 (0.1-0.6); RBC 3.83 10^6/uL (3.5-6.1); RED CELL DISTRIBUTION WIDTH 14.9 % (11.5-14.5); WHITE BLOOD COUNT 9.4 10^3/ul (4.5-11.0)
[2018-05-02 07:59] LABS: ALB/GLOB RATIO 1.3 (1.1-1.8); ALBUMIN 3.8 g/dL (3.0-4.8); ALT/SGPT 34 U/L (7-56); AST/SGOT 35 U/L (17-59); BLOOD UREA NITROGEN 29 mg/dL (7-21); CALCIUM 9.5 mg/dL (8.4-10.5); GFR NON-AFRICAN AMERICAN > 60
[2018-05-02] MEDS ORDERED: MethylPREDNISolone 40 mg Vial IVP SCH (10:00)
[2018-05-02 10:10] VITALS: BP 110/62; PULSE 71
--- NOTE | 2018-05-02 13:48 | PN ---
DATE: 05/02/2018 FOLLOWUP SUBJECTIVE: The patient was transferred to the fifth floor. He is still unhappy and uncooperative. He denies any chest pain. He is still experiencing shortness of breath. PHYSICAL EXAMINATION: VITAL SIGNS: Blood pressure 110/62, heart rate 71, temperature 97.6, respirations 18. HEENT: Normocephalic. CHEST: Bilateral rhonchi and scattered wheezing. HEART: S1 and S2 regular. ABDOMEN: Soft. EXTREMITIES: No edema. LABORATORY DATA: Hemoglobin and hematocrit 12.4 and 36.7. White count and platelet count are within normal limit. Today's SMA-7: Sodium 136, potassium 4.9, chloride 101, CO2 of 29, glucose 84, BUN 29, creatinine 0.7. Blood cultures negative after 3 days. ASSESSMENT: 1. Coronary artery disease, status post percutaneous coronary intervention to saphenous vein graft to the ramus intermedius artery. History of coronary artery bypass surgery in the past at [facility]. 2. Chronic obstructive lung disease. 3. Hypertension. RECOMMENDATIONS: Continue current Coreg 12.5 mg twice a day, aspirin 81 mg once a day, Plavix 75 mg once a day, Motrin 400 mg p.o. every 4 hours p.r.n., Solu-Medrol 20 mg intravenously daily, Zestril 5 mg daily, Zithromax 500 mg orally daily. Mike Young MD
--- NOTE | 2018-05-02 15:11 | CP.PCM.DIS ---
<Chris Correa - Last Filed: 05/02/18 15:12> Provider - Provider Date of Admission: 04/29/18 11:01 Attending physician: Ministerio Dickerson MD Primary care physician: Lauren Damon DO Time Spent in preparation of Discharge (in minutes): 45 Diagnosis - Discharge Diagnosis (1) Atypical chest pain Status: Acute Priority: High (2) COPD (chronic obstructive pulmonary disease) Status: Chronic Priority: High (3) Hypertension Status: Chronic Priority: High Hospital Course - Lab Results Lab Results: Micro Results 04/29/18 10:10 Blood-Venous Blood Culture - Preliminary NO GROWTH AFTER 3 DAYS 04/29/18 09:15 Blood-Venous Blood Culture - Preliminary NO GROWTH AFTER 3 DAYS Most Recent Lab Values WBC 9.4 10^3/ul (4.5-11.0) D 05/02/18 07:20 RBC 3.83 10^6/uL (3.5-6.1) 05/02/18 07:20 Hgb 12.4 g/dL (14.0-18.0) L 05/02/18 07:20 Hct 36.7 % (42.0-52.0) L 05/02/18 07:20 MCV 95.8 fl (80.0-105.0) 05/02/18 07:20 MCH 32.4 pg (25.0-35.0) 05/02/18 07:20 MCHC 33.8 g/dl (31.0-37.0) 05/02/18 07:20 RDW 14.9 % (11.5-14.5) H 05/02/18 07:20 Plt Count 241 10^3/uL (120.0-450.0) 05/02/18 07:20 MPV 9.1 fl (7.0-11.0) 05/02/18 07:20 Gran % 60.3 % (50.0-68.0) 05/02/18 07:20 Lymph % (Auto) 31.4 % (22.0-35.0) 05/02/18 07:20 [place] % (Auto) 8.0 % (1.0-6.0) H 05/02/18 07:20 Eos % (Auto) 0.3 % (1.5-5.0) L 05/02/18 07:20 Baso % (Auto) 0.0 % (0.0-3.0) 05/02/18 07:20 Gran # 5.69 (1.4-6.5) 05/02/18 07:20 Lymph # (Auto) 3.0 (1.2-3.4) 05/02/18 07:20 [place] # (Auto) 0.8 (0.1-0.6) H 05/02/18 07:20 Eos # (Auto) 0.0 (0.0-0.7) 05/02/18 07:20 Baso # (Auto) 0.00 K/mm3 (0.0-2.0) 05/02/18 07:20 PT 10.6 SECONDS (9.4-12.5) 04/29/18 09:15 INR 0.92 04/29/18 09:15 APTT 23.7 Seconds (25.1-36.5) L 04/29/18 09:15 pO2 43 mm/Hg (30-55) 04/29/18 09:15 VBG pH 7.41 (7.32-7.43) 04/29/18 09:15 VBG pCO2 49.0 (40-60) 04/29/18 09:15 VBG HCO3 31.1 mmol/l (21-28) H 04/29/18 09:15 VBG Total CO2 32.6 mmol.L (22-28) H 04/29/18 09:15 VBG O2 Sat (Calc) 83.4 % (40-65) H 04/29/18 09:15 VBG Base Excess 5.3 mmol/L (0.0-2.0) H 04/29/18 09:15 VBG Potassium 4.6 mmol/L (3.6-5.2) 04/29/18 09:15 Sodium 133.0 mmol/L (132-148) 04/29/18 09:15 Chloride 102.0 mmol/L (98-107) 04/29/18 09:15 Glucose 83 mg/dl (75-110) 04/29/18 09:15 Lactate 1.4 mmol/L (0.7-2.1) 04/29/18 09:15 FiO2 21.0 % 10/09/18 09:15 Sodium 136 mmol/L (132-148) 05/02/18 07:20 Potassium 4.9 mmol/L (3.6-5.0) 05/02/18 07:20 Chloride 101 mmol/L (98-107) 05/02/18 07:20 Carbon Dioxide 29 mmol/L (21-33) 05/02/18 07:20 Anion Gap 11 (10-20) 05/02/18 07:20 BUN 29 mg/dL (7-21) H 05/02/18 07:20 Creatinine 0.7 mg/dl (0.8-1.5) L 05/02/18 07:20 Est GFR ( Amer) > 60 05/02/18 07:20 Est GFR (Non-Af Amer) > 60 05/02/18 07:20 POC Glucose (mg/dL) 82 mg/dL (65-110) 04/29/18 09:15 Random Glucose 84 mg/dL (70-110) 05/02/18 07:20 Calcium 9.5 mg/dL (8.4-10.5) 05/02/18 07:20 Total Bilirubin 0.4 mg/dL (0.2-1.3) 05/02/18 07:20 AST 35 U/L (17-59) 05/02/18 07:20 ALT 34 U/L (7-56) 05/02/18 07:20 Alkaline Phosphatase 45 U/L (38-126) 05/02/18 07:20 Lactate Dehydrogenase 402 U/L (333-699) 04/29/18 17:24 Total Creatine Kinase 42 U/L (35-230) 04/29/18 17:24 Troponin I 0.02 ng/mL D 04/29/18 17:24 NT-Pro-B Natriuret Pep 826 pg/mL (0-450) H 04/29/18 10:10 Total Protein 6.7 g/dL (5.8-8.3) 05/02/18 07:20 Albumin 3.8 g/dL (3.0-4.8) 05/02/18 07:20 Globulin 2.9 gm/dL 05/02/18 07:20 Albumin/Globulin Ratio 1.3 (1.1-1.8) 05/02/18 07:20 Venous Blood Potassium 4.6 mmol/L (3.6-5.2) 04/29/18 09:15 Influenza Typ A,B (EIA) Negative for flu a/b (NEGATIVE) 04/30/18 23:10 Ur L.pneumophila Ag Negative (NEGATIVE) 04/30/18 08:45 Ur Strep pneumoniae Ag Not detected (Not Detected) 04/30/18 08:45 - Hospital Course Hospital Course: Pt is a 63 yo male with PMH of HTN, COPD, TIA, CAD with stents, CABG, ETOH abuse, and active tobacco abuse, and multiple previous admissions for similar complaints presents to the emergency department for evaluation and treatment of chest pain and SOB which began while ambulating. States the pain originated in the retrosternal region and radiated to the back and down his abdomen. Pain is characterized as a burning sensation and was associated with sweating and nausea. Rated an 8/10. Also admits associated SOB and nonproductive cough. Admits to dull headache localized to the temporal region bilaterally after taking nitro. In the ED troponins obtained were WNL. Pt was admitted for the evaluation and treatment of COPD exacerbation and to rule out ACS. Cardiology was consulted and recommended that he continued on his home medications for his CAD and HTN- Coreg, asprin, and plavix. Pt was given steroids, antibiotics as well as duonebs and symbicort/singulair for treatment for his COPD. Pt is currently stable for discharge. His wheezing has improved, he has less SOB, and is no longer complaining of chest pain. Advised patient on smoking cessation. Pt is stable for discharge to home as per Dr. Dickerson. Pt should follow up with his PMD Dr. Damon within 3-5 days of discharge from ambulatory setting. Pt advised to return to the hospital if symptoms return or worsen. Pt should resume all home medications as mentioned in the discharge instructions. - Date & Time of H&P Date of H&P: 05/02/18 Time of H&P: 15:06 Discharge Exam - Head Exam Head Exam: ATRAUMATIC, NORMOCEPHALIC - Eye Exam Eye Exam: EOMI, Normal appearance - ENT Exam ENT Exam: Mucous Membranes Moist - Respiratory Exam Respiratory Exam: NORMAL BREATHING PATTERN. absent: Accessory Muscle Use, Respiratory Distress Additional comments: wheezing has improved - Cardiovascular Exam Cardiovascular Exam: RRR, +S1, +S2. absent: Diastolic murmur, Systolic Murmur - GI/Abdominal Exam GI & Abdominal Exam: Normal Bowel Sounds, Soft, Unremarkable. absent: Distended, Tenderness - Extremities Exam Extremities exam: full ROM, pedal pulses present - Neurological Exam Neurological exam: Alert, Oriented x3 - Psychiatric Exam Psychiatric exam: Normal Affect, Normal Mood - Skin Skin Exam: Dry, Normal Color, Warm Discharge Plan - Discharge Medications Prescriptions: Methylprednisolone [Medrol Dose Pack (21 tabs)] See Taper PO DAILY #21 mg Pantoprazole Sodium [Protonix] 20 mg PO DAILY #30 ect - Follow Up Plan Condition: STABLE Disposition: HOME/ ROUTINE Instructions: Quitting Smoking for Older Adults, Exacerbation of COPD (DC), Medicines for Chronic Obstructive Pulmonary Disease (COPD), Risk Factors for COPD Additional Instructions: 1. please follow up with your primary care physician within 1 week 2. please resume your home medications 3. please take your medrol dose pack as directed 4. if your symptoms return or worsen, please go to the nearest emergency department Referrals: Lauren Damon DO [Primary Care Provider] - <Ministerio Dickerson - Last Filed: 05/02/18 16:36> Provider - Provider Date of Admission: 04/29/18 11:01 Attending physician: Ministerio Dickerson MD Primary care physician: Lauren Damon DO Hospital Course - Lab Results Lab Results: Micro Results 04/29/18 10:10 Blood-Venous Blood Culture - Preliminary NO GROWTH AFTER 3 DAYS 04/29/18 09:15 Blood-Venous Blood Culture - Preliminary NO GROWTH AFTER 3 DAYS Most Recent Lab Values WBC 9.4 10^3/ul (4.5-11.0) D 05/02/18 07:20 RBC 3.83 10^6/uL (3.5-6.1) 05/02/18 07:20 Hgb 12.4 g/dL (14.0-18.0) L 05/02/18 07:20 Hct 36.7 % (42.0-52.0) L 05/02/18 07:20 MCV 95.8 fl (80.0-105.0) 05/02/18 07:20 MCH 32.4 pg (25.0-35.0) 05/02/18 07:20 MCHC 33.8 g/dl (31.0-37.0) 05/02/18 07:20 RDW 14.9 % (11.5-14.5) H 05/02/18 07:20 Plt Count 241 10^3/uL (120.0-450.0) 05/02/18 07:20 MPV 9.1 fl (7.0-11.0) 05/02/18 07:20 Gran % 60.3 % (50.0-68.0) 05/02/18 07:20 Lymph % (Auto) 31.4 % (22.0-35.0) 05/02/18 07:20 [place] % (Auto) 8.0 % (1.0-6.0) H 05/02/18 07:20 Eos % (Auto) 0.3 % (1.5-5.0) L 05/02/18 07:20 Baso % (Auto) 0.0 % (0.0-3.0) 05/02/18 07:20 Gran # 5.69 (1.4-6.5) 05/02/18 07:20 Lymph # (Auto) 3.0 (1.2-3.4) 05/02/18 07:20 [place] # (Auto) 0.8 (0.1-0.6) H 05/02/18 07:20 Eos # (Auto) 0.0 (0.0-0.7) 05/02/18 07:20 Baso # (Auto) 0.00 K/mm3 (0.0-2.0) 05/02/18 07:20 PT 10.6 SECONDS (9.4-12.5) 04/29/18 09:15 INR 0.92 04/29/18 09:15 APTT 23.7 Seconds (25.1-36.5) L 04/29/18 09:15 pO2 43 mm/Hg (30-55) 04/29/18 09:15 VBG pH 7.41 (7.32-7.43) 04/29/18 09:15 VBG pCO2 49.0 (40-60) 04/29/18 09:15 VBG HCO3 31.1 mmol/l (21-28) H 04/29/18 09:15 VBG Total CO2 32.6 mmol.L (22-28) H 04/29/18 09:15 VBG O2 Sat (Calc) 83.4 % (40-65) H 04/29/18 09:15 VBG Base Excess 5.3 mmol/L (0.0-2.0) H 04/29/18 09:15 VBG Potassium 4.6 mmol/L (3.6-5.2) 04/29/18 09:15 Sodium 133.0 mmol/L (132-148) 04/29/18 09:15 Chloride 102.0 mmol/L (98-107) 04/29/18 09:15 Glucose 83 mg/dl (75-110) 04/29/18 09:15 Lactate 1.4 mmol/L (0.7-2.1) 04/29/18 09:15 FiO2 21.0 % 04/29/18 09:15 Sodium 136 mmol/L (132-148) 05/02/18 07:20 Potassium 4.9 mmol/L (3.6-5.0) 05/02/18 07:20 Chloride 101 mmol/L (98-107) 05/02/18 07:20 Carbon Dioxide 29 mmol/L (21-33) 05/02/18 07:20 Anion Gap 11 (10-20) 05/02/18 07:20 BUN 29 mg/dL (7-21) H 05/02/18 07:20 Creatinine 0.7 mg/dl (0.8-1.5) L 05/02/18 07:20 Est GFR ( Amer) > 60 05/02/18 07:20 Est GFR (Non-Af Amer) > 60 05/02/18 07:20 POC Glucose (mg/dL) 82 mg/dL (65-110) 04/29/18 09:15 Random Glucose 84 mg/dL (70-110) 05/02/18 07:20 Calcium 9.5 mg/dL (8.4-10.5) 05/02/18 07:20 Total Bilirubin 0.4 mg/dL (0.2-1.3) 05/02/18 07:20 AST 35 U/L (17-59) 05/02/18 07:20 ALT 34 U/L (7-56) 05/02/18 07:20 Alkaline Phosphatase 45 U/L (38-126) 05/02/18 07:20 Lactate Dehydrogenase 402 U/L (333-699) 04/29/18 17:24 Total Creatine Kinase 42 U/L (35-230) 04/29/18 17:24 Troponin I 0.02 ng/mL D 04/29/18 17:24 NT-Pro-B Natriuret Pep 826 pg/mL (0-450) H 04/29/18 10:10 Total Protein 6.7 g/dL (5.8-8.3) 05/02/18 07:20 Albumin 3.8 g/dL (3.0-4.8) 05/02/18 07:20 Globulin 2.9 gm/dL 05/02/18 07:20 Albumin/Globulin Ratio 1.3 (1.1-1.8) 05/02/18 07:20 Venous Blood Potassium 4.6 mmol/L (3.6-5.2) 04/29/18 09:15 Influenza Typ A,B (EIA) Negative for flu a/b (NEGATIVE) 04/30/18 23:10 Ur L.pneumophila Ag Negative (NEGATIVE) 04/30/18 08:45 Ur Strep pneumoniae Ag Not detected (Not Detected) 04/30/18 08:45 Attending/Attestation - Attestation I have personally seen and examined this patient.: Yes I have fully participated in the care of the patient.: Yes I have reviewed all pertinent clinical information, including history, physical exam and plan: Yes Notes (Text): 05/02/18 16:34 63 year old male with past medical history of hypertension, COPD, TIA, CAD s/p stents s/p CABG, chronic smoker and ETOH abuse who presented with complaint of chest pain and shortness of breath. Serial cardiac enzymes were negative and ACS was ruled out. He was started on steroids with improvement of symptoms. He was counselled on smoking and alcohol cessation. He is on protonix for GERD. Recommended outpatient GI follow up. Patient is discharged home today to follow up with pmd. Follow up with GI. Counselled on smoking and alcohol cessation. Ministerio Dickerson MD Hospitalist.
== END 2018-05-02 14:03 | disposition home or self-care (01) | DRG 88 ==
LOC: ED 09:02 → ERH 11:01 → 2RNO 12:42 → 5RSO 05-01 23:15
PROVIDERS: ADMIT Hospitalist; ATTEND Internal Medicine
PROC: 3E0F7GC Introduction of Other Therapeutic Substance into Respiratory Tract, Via Natural or Artificial Opening (ICD-10-PCS; principal; 2018-04-29)
DX: J44.1 Chronic obstructive pulmonary disease with (acute) exacerbation (principal); R07.89 Other chest pain; I25.10 Atherosclerotic heart disease of native coronary artery without angina pectoris; I10 Essential (primary) hypertension; G62.9 Polyneuropathy, unspecified; F10.10 Alcohol abuse, uncomplicated; F43.10 Post-traumatic stress disorder, unspecified; K21.9 Gastro-esophageal reflux disease without esophagitis; R00.1 Bradycardia, unspecified; F17.200 Nicotine dependence, unspecified, uncomplicated; Z86.73 Personal history of transient ischemic attack (TIA), and cerebral infarction without residual deficits; Z91.14 Patient's other noncompliance with medication regimen; Z95.5 Presence of coronary angioplasty implant and graft; Z95.1 Presence of aortocoronary bypass graft; Z79.02 Long term (current) use of antithrombotics/antiplatelets; Z79.82 Long term (current) use of aspirin

== ENCOUNTER 2018-05-04 11:59 | Observation (INO) | payer MEDICARE, MEDICAID ==
[2018-05-04] MEDS ORDERED: Albuterol-Ipratrop 3 mg / 0.5 (3 ml) UD IH STA ×4 (12:25→19:42)
[2018-05-04] MEDS ORDERED: Morphine 2 mg/ml ISec IVP STA ×2 (12:25→13:54)
--- NOTE | 2018-05-04 12:25 | ED PDOC ---
Arrival/HPI - General Chief Complaint: Chest Pain Time Seen by Provider: 05/04/18 12:05 Historian: Patient - History of Present Illness Narrative History of Present Illness (Text): 05/04/18 12:19 63 year old male, whose past medical history includes SD w/ stents and COPD, who presents to the ED complaining of coughing and body cramps. Patient states he woke up at 04:00 this morning coughing and experiencing "cramping to the chest and throughout the whole body". Patient states that he was discharged from hospital two days ago, but developed progressive shortness of breath. Denies pleuritic chest pain. Denies leg pain or swelling. Denies abdominal pain. Reports productive sputum. Time/Duration: 4-6 hours Symptom Onset: Gradual Symptom Course: Unchanged Activities at Onset: Light Context: Home Past Medical History - Provider Review Nursing Documentation Reviewed: Yes - Past History Past History: No Previous - Infectious Disease Hx of Infectious Diseases: None - Tetanus Immunization Tetanus Immunization: Unknown - Reproductive Currently Lactating: No - Cardiac Hx Cardiac Disorders: Yes (CAD with stents, CABG, sinus bradycardia, cardiac arrythmias, angina) Hx Hypertension: Yes - Pulmonary Hx Chronic Obstructive Pulmonary Disease (COPD): Yes - Neurological Hx Neurological Disorder: Yes (peripheral neuropathy) Hx Dizziness: Yes Hx Migraine: Yes Hx Transient Ischemic Attacks (TIA): Yes Other/Comment: b/l legs burning numbnes, tingling - HEENT Hx HEENT Disorder: Yes (eyeglasses, r eye lazy eye) Hx Cataracts: Yes - Renal Hx Renal Disorder: Yes Hx Kidney Stones: Yes - Endocrine/Metabolic Hx Endocrine Disorders: No - Hematological/Oncological Hx Blood Disorders: Yes Hx Anemia: Yes - Integumentary Hx Dermatological Disorder: Yes Other/Comment: VARICOSE 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, 2 small bruises to rcw and lcw, larger bruise left shoulder, thick hard toenails - Musculoskeletal/Rheumatological Hx Musculoskeletal Disorders: Yes Hx Arthritis: Yes Hx Degenerative Joint Disease: Yes Hx Falls: Yes (past) Hx Fractures: Yes (RIB) Hx Gout: Yes Hx Unsteady Gait: Yes - Gastrointestinal Hx Gastrointestinal Disorders: Yes (COLITIS,DIVERTICULOSIS) Hx Gall Bladder Disease: Yes (gallstones) Hx Gastroesophageal Reflux: Yes - Genitourinary/Gynecological Hx Genitourinary Disorders: Yes Hx Urinary Tract Infection: Yes - Psychiatric Hx Psychophysiologic Disorder: Yes (USED TO DRINK ALCOHOL.H/O ETOH ABUSE. QUIT.) Hx Anxiety: Yes Hx Depression: Yes Hx Post Traumatic Stress Disorder: Yes Hx Substance Use: Yes (COCAINE,HEROIN,MARIJUANA USE. H/O.DENIES RECENT USE.) Other/Comment: quit smoking 1 week ago, [facility],etoh abuse quit drinking sober 1 yr 6 months relapsed 04/03/18 then stopped again, personality disorder, smokes pot occasionally but quit heroin cocaine in , criminal charges in past, lives at [facility] - Surgical History Hx Cardiac Catheterization: Yes (CORONARY STENT) Hx Cholecystectomy: Yes Hx Coronary Stent: Yes Hx Open Heart Surgery: Yes (triple bypass) - Anesthesia Hx Anesthesia: Yes Hx Anesthesia Reactions: No Hx Malignant Hyperthermia: No - Suicidal Assessment Feels Threatened In Home Enviroment: No Family/Social History - Physician Review Nursing Documentation Reviewed: Yes Family/Social History: Unknown Family HX Smoking Status: Current Some Days Smoker Hx Alcohol Use: Yes (RELAPSED 04-03-18) Hx Substance Use: Yes (COCAINE,HEROIN,MARIJUANA USE. H/O.DENIES RECENT USE.) Substance used: HEROIN, MARIJUANA Hx Substance Use Treatment: No Allergies/Home Meds Allergies/Adverse Reactions: Allergies shellfish derived Allergy (Verified 04/29/18 18:57) ANAPHYLAXIS Sulfa (Sulfonamide Antibiotics) Allergy (Verified 04/29/18 18:57) RASH Home Medications: Home Meds Medication Instructions Recorded Confirmed Aspirin [Low Dose Aspirin EC] 81 mg PO DAILY 04/04/18 04/29/18 Clopidogrel [Plavix] 75 mg PO DAILY 04/04/18 04/29/18 Famotidine [Pepcid] 20 mg PO DAILY 04/04/18 04/29/18 Montelukast [Singulair] 10 mg PO DAILY 04/04/18 04/29/18 Multivit-Min/Iron/Folic Acid/K 1 each PO DAILY 04/04/18 04/29/18 [Adults Multivitamin Tablet] Nitroglycerin [Nitrostat] 0.4 mg SL PRN PRN 04/04/18 04/29/18 Review of Systems - Review of Systems Constitutional: Fatigue ENT: Sinus Congestion Respiratory: SOB, Cough, Sputum, Wheezing Cardiovascular: Chest Pain, MEZA. absent: Palpitations, Edema, Calf Pain, Orthopnea, Syncope Gastrointestinal: absent: Abdominal Pain, Nausea Genitourinary Male: absent: Dysuria Musculoskeletal: absent: Back Pain Skin: absent: Rash Neurological: absent: Headache, Dizziness Endocrine: absent: Polyuria Hemo/Lymphatic: absent: Easy Bleeding Physical Exam - Physical Exam Narrative Physical Exam (Text): 05/04/18 12:26 Head: Atraumatic. Normocephalic. Eyes: PERRL. EOMI. Conjunctivae are not pale. ENT: Mucous membranes are moist and intact. Oropharynx is clear and symmetric. Neck: Supple. Full ROM. No JVD. No lymphadenopathy. Cardiovascular: Regular rate. Regular rhythm. Systolic murmur. Distal pulses are 2+ and symmetric. Blood pressure and pulse equal in both upper extremities. Pulmonary/Chest: Bilateral expiratory wheezing. No rales or rhonchi. Sternotomy scar noted. Abdominal: Soft and non-distended. There is no tenderness. No rebound, guarding, or rigidity. No organomegaly. Good bowel sounds. Ecchymosis to lower abdominal wall. Back: No CVA tenderness. Extremities: No edema. No cyanosis. No clubbing. Full range of motion in all extremities. No calf tenderness. Skin: Skin is warm and dry. No petechiae. No purpura. Neurological: Alert, awake, and oriented . No slurred speech. Motor and sensory exam intact. Psychiatric: Anxious. Good eye contact. Vital Signs Reviewed: Yes Vital Signs Temp Pulse Resp BP Pulse Ox 05/04/18 12:09 98.2 F 78 18 143/67 98 Temperature: Afebrile Blood Pressure: Normal Pulse: Regular Respiratory Rate: Tachypneic Appearance: Positive for: Unkept, Uncomfortable Pain Distress: Mild Mental Status: Positive for: Alert and Oriented X 3 Medical Decision Making ED Course and Treatment: 05/04/18 12:28 Impression: 63 year old male presents to the Emergency Department complaining of coughing and body cramps today. Differential Diagnosis included but are not limited to: Pneumonia vs Bronchitis vs Acute Coronary Syndrome Plan: -- EKG -- Labs -- CXR -- Duoneb -- Morphine -- Reassess and disposition Progress Notes: Patient with prior cardiac history presents with cough, chest pain, and shortness of breath. I reviewed recent cardiac cath: Cardiac Catheter Procedure performed by Dr. Lambert on 04/04/18 reviewed. Conclusion: [place] triple Vessel CAD Preserved LV Fx. EF-55%. EDP-20 mmof hg. Successful PT Ca with APURVA of SVG to Ramus intermedius. Patient's current EKG with st t changes although appears unchanged from previous. Initial troponin not acutely elevated. Chest X-ray reviewed, shows: IMPRESSION: No active disease. I feel current discomfort related to possible pulmonary etiology as there is persistent wheezing on exam. After multiple nebulizers, iv steroids, patient with persistent wheezing, patient will be admitted for acute COPD exacerbation. Leukocytosis noted, although patient afebrile, has been on oral steroids recently. Does not appear septic. Case d/w DR. Justin Roth, accepts admission to hospitalist service. 05/04/18 20:05 - RAD Interpretation Clearing Inspector: Radiologist - EKG Interpretation Interpreted by ED Physician: Yes Type: 12 lead EKG Comparison: Com.w/previous EKG - Scribe Statement The provider has reviewed the documentation as recorded by the Scribe Joan Simpson All medical record entries made by the Scribe were at my direction and personally dictated by me. I have reviewed the chart and agree that the record accurately reflects my personal performance of the history, physical exam, medical decision making, and the department course for this patient. I have also personally directed, reviewed, and agree with the discharge instructions and disposition. Disposition/Present on Arrival - Present on Arrival Any Indicators Present on Arrival: No History of DVT/PE: No History of Uncontrolled Diabetes: No Urinary Catheter: No History of Decub. Ulcer: No History Surgical Site Infection Following: None - Disposition Have Diagnosis and Disposition been Completed?: Yes Diagnosis: COPD exacerbation, Chest pain Disposition: HOSPITALIZED Disposition Time: 20:03 Patient Plan: Admission, Telemetry Patient Problems: Current Active Problems Problem Status Onset COPD exacerbation Acute Chest pain Acute Condition: FAIR Discharge Instructions (ExitCare): Chest Pain (ED) Forms: Health: Elt (Tajik)
[2018-05-04 12:41] LABS: EOS % 0.1 % (1.5-5.0); GRAN # 11.3 (1.4-6.5); GRAN % 81.4 % (50.0-68.0); HEMOGLOBIN 12.1 g/dL (14.0-18.0); LYMPH # 1.7 (1.2-3.4); LYMPH % 12.3 % (22.0-35.0); MEAN CELL VOLUME 95.7 fl (80.0-105.0); MEAN CORPUSCULAR HEMOGLOBIN 32.7 pg (25.0-35.0); MEAN CORPUSCULAR HGB CONC 34.2 g/dl (31.0-37.0); MEAN PLATELET VOLUME 9.1 fl (7.0-11.0); MONO # 0.9 (0.1-0.6); MONO % 6.2 % (1.0-6.0); RBC 3.7 10^6/uL (3.5-6.1); RED CELL DISTRIBUTION WIDTH 14.7 % (11.5-14.5); WHITE BLOOD COUNT 13.9 10^3/ul (4.5-11.0)
[2018-05-04] MEDS ORDERED: Morphine 2 mg/ml ISec ONE (12:43)
[2018-05-04 12:45] LABS: INR 0.98; PARTIAL THROMBOPLASTIN TIME 23.2 Seconds (25.1-36.5); PROTHROMBIN TIME 11.3 SECONDS (9.4-12.5)
[2018-05-04 12:48] LABS: ALB/GLOB RATIO 1.4 (1.1-1.8); ALBUMIN 3.9 g/dL (3.0-4.8); ALT/SGPT 35 U/L (7-56); AST/SGOT 30 U/L (17-59); BLOOD UREA NITROGEN 27 mg/dL (7-21); CALCIUM 8.8 mg/dL (8.4-10.5); GFR NON-AFRICAN AMERICAN > 60
--- NOTE | 2018-05-04 12:51 | RAD ---
Date of service: 05/04/2018 HISTORY: chest pain COMPARISON: 04/29/2018 FINDINGS: LUNGS: No active pulmonary disease. PLEURA: No significant pleural effusion identified, no pneumothorax apparent. CARDIOVASCULAR: Normal heart size. Status post CABG. No congestive change. OSSEOUS STRUCTURES: No significant abnormalities. VISUALIZED UPPER ABDOMEN: Normal. OTHER FINDINGS: None. IMPRESSION: No active disease.
[2018-05-04 12:58] LABS: TROPONIN I 0.02 ng/mL
[2018-05-04] MEDS ORDERED: Sodium Chloride 0.9% 1,000 ML IV SCH (14:00)
--- NOTE | 2018-05-04 15:07 | CARD ---
APPROVED REPORT Date of service: 05/04/2018 EKG Measurement Heart [id number] <Conclusion> Normal sinus rhythm Normal ECG
--- NOTE | 2018-05-04 15:13 | CARD ---
APPROVED REPORT Date of service: 05/04/2018 EKG Measurement Heart [id number] <Conclusion> Normal sinus rhythm Early repolarization Normal ECG
--- NOTE | 2018-05-04 20:57 | CP.PCM.HP ---
History of Present Illness - History of Present Illness History of Present Illness: Mata Lopez, PGY-1 History and Physical for Hospitalist Service CC: Cough and Shortness of breath HPI: Mr. Alexandra is a 63 year old male with past medical history of HTN, COPD, TIA, CAD with stents, CABG, ETOH abuse who presents to the emergency department for evaluation and treatment of cough and shortness of breath which began today while at rest. States the pain originated across the chest and radiates down into abdomen and also into L jaw. Pain is characterized as a crampy sensation and was associated with sweating and nausea and some chest pain. Rated an 8/10. Also admits associated nonproductive cough, headache, dizziness with some relief after taking nitro. Denies fever, chills, visual/auditory complaints, abdominal pain, vomiting, diarrhea, constipation, recent travel. Patient was recently discharged from hospital a few days prior for COPD, and sent home on steroids and recommendation to follow up with GI. 12 point ROS negative except as indicated PMHx: HTN, COPD, TIA, CAD with stents, CABG, EtOH abuse, and active tobacco abuse PSHx: Carotid enarterectomy, cholecystectomy Social Hx: hx of 2 ppd for 30 years, currently on patch, denies illicit drug use, admits to alcohol abuse. Lives in [facility] Medications: carvidolol, atorvastatin, asa, meloxicam, ventolin, albuterol, benzonate, B12, folate, omeprazole Allergies: Shellfish derived substances, Sulfa Primary Medical Doctor: Dr. Damon Present on Admission - Present on Admission Any Indicators Present on Admission: No Review of Systems - Review of Systems Review of Systems: 12 point ROS completed and negative except as described in HPI. Past Patient History - Infectious Disease Hx of Infectious Diseases: None - Tetanus Immunizations Tetanus Immunization: Unknown - Past Medical History & Family History Past Medical History?: Yes - Past Social History Smoking Status: Current Some Days Smoker - CARDIAC Hx Cardiac Disorders: Yes (CAD with stents, CABG, sinus bradycardia, cardiac arrythmias, angina) Hx Hypertension: Yes - PULMONARY Hx Chronic Obstructive Pulmonary Disease (COPD): Yes - NEUROLOGICAL Hx Neurological Disorder: Yes (peripheral neuropathy) Hx Dizziness: Yes Hx Migraine: Yes Hx Transient Ischemic Attacks (TIA): Yes Other/Comment: b/l legs burning numbnes, tingling - HEENT Hx HEENT Problems: Yes (eyeglasses, r eye lazy eye) Hx Cataracts: Yes - RENAL Hx Chronic Kidney Disease: Yes Hx Kidney Stones: Yes - ENDOCRINE/METABOLIC Hx Endocrine Disorders: No - HEMATOLOGICAL/ONCOLOGICAL Hx Blood Disorders: Yes Hx Anemia: Yes - INTEGUMENTARY Hx Dermatological Problems: Yes Other/Comment: VARICOSE 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, 2 small bruises to rcw and lcw, larger bruise left shoulder, thick hard toenails - MUSCULOSKELETAL/RHEUMATOLOGICAL Hx Musculoskeletal Disorders: Yes Hx Arthritis: Yes Hx Degenerative Joint Disease: Yes Hx Falls: Yes (past) Hx Fractures: Yes (RIB) Hx Gout: Yes Hx Unsteady Gait: Yes - GASTROINTESTINAL Hx Gastrointestinal Disorders: Yes (COLITIS,DIVERTICULOSIS) Hx Gall Bladder Disease: Yes (gallstones) Hx Gastroesophageal Reflux: Yes - GENITOURINARY/GYNECOLOGICAL Hx Genitourinary Disorders: Yes Hx Urinary Tract Infection: Yes - PSYCHIATRIC Hx Psychophysiologic Disorder: Yes (USED TO DRINK ALCOHOL.H/O ETOH ABUSE. QUIT.) Hx Anxiety: Yes Hx Depression: Yes Hx Post Traumatic Stress Disorder: Yes Hx Substance Use: Yes (COCAINE,HEROIN,MARIJUANA USE. H/O.DENIES RECENT USE.) Other/Comment: quit smoking 1 week ago, [facility],etoh abuse quit drinking sober 1 yr 6 months relapsed 04/03/18 then stopped again, personality disorder, smokes pot occasionally but quit heroin cocaine in , criminal charges in past, lives at [facility] - SURGICAL HISTORY Hx Cardiac Catheterization: Yes (CORONARY STENT) Hx Cholecystectomy: Yes Hx Coronary Stent: Yes Hx Open Heart Surgery: Yes (triple bypass) - ANESTHESIA Hx Anesthesia: Yes Hx Anesthesia Reactions: No Hx Malignant Hyperthermia: No Meds Allergies/Adverse Reactions: Allergies Allergy/AdvReac Type Severity Reaction Status Date / Time shellfish derived Allergy ANAPHYLAXIS Verified 04/29/18 18:57 Sulfa (Sulfonamide Allergy RASH Verified 04/29/18 18:57 Antibiotics) Physical Exam - Constitutional Appears: Well, Non-toxic, No Acute Distress Additional comments: Uncomfortable - Head Exam Head Exam: ATRAUMATIC, NORMOCEPHALIC - Eye Exam Eye Exam: EOMI, Normal appearance Pupil Exam: PERRL - ENT Exam ENT Exam: Mucous Membranes Moist, Normal Exam - Neck Exam Neck exam: Positive for: Normal Inspection - Respiratory Exam Respiratory Exam: Chest Wall Tenderness, Wheezes (End-expiratory wheezing diffusely). absent: Accessory Muscle Use, Clear to Auscultation Bilateral, Prolonged Expiratory Phase Additional comments: across upper chest - Cardiovascular Exam Cardiovascular Exam: REGULAR RHYTHM, RRR, +S1, +S2 - GI/Abdominal Exam GI & Abdominal Exam: Normal Bowel Sounds, Soft. absent: Distended, Guarding, Rebound, Tenderness - Back Exam Back exam: NORMAL INSPECTION. absent: CVA tenderness (L), CVA tenderness (R) - Neurological Exam Neurological exam: Alert, CN II-XII Intact, Oriented x3 - Additional Findings Additional findings: - Skin Skin Exam: Dry, Intact, Echymosis on abdominal wall 2/2 from prevoius heparin injection sites, Warm Results - Vital Signs Recent Vital Signs: Last Vital Signs Temp 98 F 05/04/18 16:50 Pulse 86 05/04/18 16:50 Resp 19 05/04/18 16:50 BP 127/87 05/04/18 17:07 Pulse Ox 99 05/04/18 14:18 - Labs Result Diagrams: 05/04/18 21:00 05/04/18 12:15 Labs: Laboratory Results - last 24 hr 05/04/18 05/04/18 05/04/18 12:15 12:15 12:15 WBC 13.9 H D RBC 3.70 Hgb 12.1 L Hct 35.4 L MCV 95.7 MCH 32.7 MCHC 34.2 RDW 14.7 H Plt Count 236 MPV 9.1 Gran % 81.4 H Lymph % (Auto) 12.3 L [place] % (Auto) 6.2 H Eos % (Auto) 0.1 L Baso % (Auto) 0.0 Gran # 11.30 H Lymph # (Auto) 1.7 [place] # (Auto) 0.9 H Eos # (Auto) 0.0 Baso # (Auto) 0.00 PT 11.3 INR 0.98 APTT 23.2 L Sodium 131 L Potassium 4.7 Chloride 97 L Carbon Dioxide 27 Anion Gap 13 BUN 27 H Creatinine 0.7 L Est GFR ( Amer) > 60 Est GFR (Non-Af Amer) > 60 Random Glucose 85 Calcium 8.8 Magnesium 1.8 Total Bilirubin 0.5 AST 30 ALT 35 Alkaline Phosphatase 52 Lactate Dehydrogenase 442 Total Creatine Kinase 53 Troponin I 0.02 Total Protein 6.6 Albumin 3.9 Globulin 2.7 Albumin/Globulin Ratio 1.4 Alcohol, Quantitative 05/04/18 12:15 WBC RBC Hgb Hct MCV MCH MCHC RDW Plt Count MPV Gran % Lymph % (Auto) [place] % (Auto) Eos % (Auto) Baso % (Auto) Gran # Lymph # (Auto) [place] # (Auto) Eos # (Auto) Baso # (Auto) PT INR APTT Sodium Potassium Chloride Carbon Dioxide Anion Gap BUN Creatinine Est GFR ( Amer) Est GFR (Non-Af Amer) Random Glucose Calcium Magnesium Total Bilirubin AST ALT Alkaline Phosphatase Lactate Dehydrogenase Total Creatine Kinase Troponin I Total Protein Albumin Globulin Albumin/Globulin Ratio Alcohol, Quantitative < 10 Assessment & Plan - Assessment and Plan (Free Text) Assessment: Assessment: Patient is a 63 year old male with past medical history of HTN, COPD, TIA, CAD with stents, CABG, ETOH abuse, and active tobacco abuse who admitted for evaluation and treatment of chest pain and SOB. Plan: Shortness of breath 2/2 COPD Exacerbation - CXR: negative for active disease - Likely secondary to COPD exacerbation secondary to medication noncompliance and tobacco abuse - ABG shows uncompensated respiratory alkalosis, Lactate 1.8 - Duobnebs q4 scheduled and q2 PRN - negative for rapid flu - Continue home symbicort and singulair - IV Solumedrol 40mg q12 - IV Levaquin for COPD exacerbation coverage - f/u sputum and urine cx - f/u Mycoplasma, legionella and Pnuemo urine levels - f/u Procal Atypical Chest pain, Hx of CAD/CABG - Rule out ACS - BNP 455 - Trop 0.02 in ED, trended q6h x 2 - EKG in ED- NSR No ST-T wave changes, HR 85 bpm - Continue daily ASA 81mg and Plavix 75mg, statin, and ACEi - Restarting home coreg BID with holding parameters - HHD - cardiology consult - Dr. Verdin - recommendations appreciated Hyponatremia - Na 131 - on Banana bag - continue to monitor Hx of ETOH - Ativan 1 mg q6 PRN for possible withdrawals - CIWA - Thiamine, folate and multivitamin tablet tomorrow, Banana bag currently - continue to monitor - Seizure precautions Hx of HTN -continue home coreg -BP currently controlled in 130's/90's,monitor closely Tobacco abuse - nicotine patch prn tobacco with - encourage cessation of tobacco use Prophylaxis: - DVT- Heparin, SCDs - GI- famotidine Patient seen, case discussed , and plan reviewed with attending, Dr. Sydney Roth. Mata Lopez, PGY-1
[2018-05-04] MEDS ORDERED: Multivitamin (MVI) 10 ML, Thiamine 100 MG, Folic Acid 1 MG in Sodium Chloride 0.9% 1,00... IV ONE (21:14)
[2018-05-04 21:15] LABS: ARTERIAL BLOOD GAS HCO3 23.9 mmol/L (21-28); ARTERIAL BLOOD GAS PCO2 30 mm/Hg (35-45); ARTERIAL BLOOD GAS PH 7.51 (7.35-7.45); ARTERIAL BLOOD GAS TCO2 24.8 mmol.L (22-28)
[2018-05-04 21:18] LABS: PH,URINE 7.5 (4.7-8.0); URINE BILIRUBIN NEGATIVE (NEGATIVE); URINE BLOOD NEGATIVE (NEGATIVE); URINE GLUCOSE (UA) NEGATIVE (NEGATIVE); URINE LEUKOCYTE ESTERASE NEGATIVE Leu/uL (NEGATIVE); URINE PROTEIN NEGATIVE mg/dL (<30 mg/dL); URINE UROBILINOGEN 0.2 E.U./dL (<1 E.U./dL)
[2018-05-04 21:20] LABS: EOS % 0.1 % (1.5-5.0); GRAN # 10.25 (1.4-6.5); GRAN % 89.7 % (50.0-68.0); HEMOGLOBIN 11.6 g/dL (14.0-18.0); LYMPH # 0.7 (1.2-3.4); LYMPH % 6.4 % (22.0-35.0); MEAN CELL VOLUME 95.8 fl (80.0-105.0); MEAN CORPUSCULAR HEMOGLOBIN 32.6 pg (25.0-35.0); MEAN PLATELET VOLUME 8.9 fl (7.0-11.0); MONO # 0.4 (0.1-0.6); MONO % 3.8 % (1.0-6.0); RBC 3.56 10^6/uL (3.5-6.1); WHITE BLOOD COUNT 11.4 10^3/ul (4.5-11.0)
[2018-05-04 21:20] LABS: URINE APPEARANCE CLEAR (CLEAR); URINE COLOR YELLOW (YELLOW)
[2018-05-04] MEDS ORDERED: Albuterol-Ipratrop 3 mg / 0.5 (3 ml) UD IH PRN (21:26)
[2018-05-04 21:41] LABS: BARBITURATES, UR NEGATIVE (NEGATIVE); BENZODIAZEPINES, UR NEGATIVE (NEGATIVE); OPIATES, UR POSITIVE (NEGATIVE); PHENCYCLIDINE, UR NEGATIVE (NEGATIVE)
[2018-05-04] MEDS: MethylPREDNISolone 40 mg Vial IVP SCH (23:48)
[2018-05-04] MEDS: Albuterol-Ipratrop 3 mg / 0.5 (3 ml) UD IH SCH (23:55)
[2018-05-05 00:47] LABS: TROPONIN I 0.01 ng/mL
[2018-05-05 03:27] VITALS: BMI 22.8
[2018-05-05] MEDS: Albuterol-Ipratrop 3 mg / 0.5 (3 ml) UD IH SCH ×5 (03:55→19:40)
[2018-05-05 07:01] LABS: GRAN # 8.76 (1.4-6.5); GRAN % 90.9 % (50.0-68.0); HEMOGLOBIN 11.6 g/dL (14.0-18.0); LYMPH # 0.6 (1.2-3.4); LYMPH % 6.1 % (22.0-35.0); MEAN CELL VOLUME 96.7 fl (80.0-105.0); MEAN CORPUSCULAR HEMOGLOBIN 32.3 pg (25.0-35.0); MEAN CORPUSCULAR HGB CONC 33.4 g/dl (31.0-37.0); MONO # 0.3 (0.1-0.6); PLATELET COUNT 207 10^3/uL (120.0-450.0); RBC 3.59 10^6/uL (3.5-6.1); RED CELL DISTRIBUTION WIDTH 15.1 % (11.5-14.5); WHITE BLOOD COUNT 9.6 10^3/ul (4.5-11.0)
[2018-05-05 07:16] LABS: TROPONIN I < 0.01 ng/mL
[2018-05-05 07:23] LABS: ALB/GLOB RATIO 1.5 (1.1-1.8); ALBUMIN 3.8 g/dL (3.0-4.8); ALT/SGPT 240 U/L (7-56); AST/SGOT 150 U/L (17-59); BLOOD UREA NITROGEN 24 mg/dL (7-21); CALCIUM 8.9 mg/dL (8.4-10.5); GFR NON-AFRICAN AMERICAN > 60
--- NOTE | 2018-05-05 07:30 | CP.PCM.CON ---
History of Present Illness - History of Present Illness History of Present Illness: Awake, alert, complaints of vague chest pain radiating to abdomen and arms,non productive coughing Reason for consultation:Cardiac evaluation of chest pain Brief history of present illness: A 63 year old male who came in to the ER due to vague mid chest pain radiating to abdomen and arms.He also complaints of non productive cough and shortness of breath. History of coronary artery disease, status post CABG (2005) history of multiple stents in the past, history of alcohol abuse,history of multiple admissions for chest pain,history of carotid endarterectomy, COPD,TIA,cholecystectomy. Current tobacco abuse (2PPD). Consult was called to evaluate chest pain.He was just recently discharged from [facility]. (03/2018).He lives at [facility]. Seen and examined by me and Dr. Verdin Review of Systems - Review of Systems All systems: reviewed and no additional remarkable complaints except Review of Systems: as per HPI Past Patient History - Infectious Disease Hx of Infectious Diseases: None - Tetanus Immunizations Tetanus Immunization: Unknown - Past Medical History & Family History Past Medical History?: Yes - Past Social History Smoking Status: Current Some Days Smoker - CARDIAC Hx Cardiac Disorders: Yes (CAD with stents, CABG, sinus bradycardia, cardiac arrythmias, angina) Hx Hypertension: Yes - PULMONARY Hx Chronic Obstructive Pulmonary Disease (COPD): Yes - NEUROLOGICAL Hx Neurological Disorder: Yes (peripheral neuropathy) Hx Dizziness: Yes Hx Migraine: Yes Hx Transient Ischemic Attacks (TIA): Yes Other/Comment: b/l legs burning numbnes, tingling - HEENT Hx HEENT Problems: Yes (eyeglasses, r eye lazy eye) Hx Cataracts: Yes - RENAL Hx Chronic Kidney Disease: Yes Hx Kidney Stones: Yes - ENDOCRINE/METABOLIC Hx Endocrine Disorders: No - HEMATOLOGICAL/ONCOLOGICAL Hx Blood Disorders: Yes Hx Anemia: Yes - INTEGUMENTARY Hx Dermatological Problems: Yes Other/Comment: VARICOSE 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, 2 small bruises to rcw and lcw, larger bruise left shoulder, thick hard toenails - MUSCULOSKELETAL/RHEUMATOLOGICAL Hx Musculoskeletal Disorders: Yes Hx Arthritis: Yes Hx Degenerative Joint Disease: Yes Hx Falls: Yes (past) Hx Fractures: Yes (RIB) Hx Gout: Yes Hx Unsteady Gait: Yes - GASTROINTESTINAL Hx Gastrointestinal Disorders: Yes (COLITIS,DIVERTICULOSIS) Hx Gall Bladder Disease: Yes (gallstones) Hx Gastroesophageal Reflux: Yes - GENITOURINARY/GYNECOLOGICAL Hx Genitourinary Disorders: Yes Hx Urinary Tract Infection: Yes - PSYCHIATRIC Hx Psychophysiologic Disorder: Yes (USED TO DRINK ALCOHOL.H/O ETOH ABUSE. QUIT.) Hx Anxiety: Yes Hx Depression: Yes Hx Post Traumatic Stress Disorder: Yes Hx Substance Use: Yes (COCAINE,HEROIN,MARIJUANA USE. H/O.DENIES RECENT USE.) Other/Comment: quit smoking 1 week ago, [facility],etoh abuse quit drinking sober 1 yr 6 months relapsed 04/03/18 then stopped again, personality disorder, smokes pot occasionally but quit heroin cocaine in , criminal charges in past, lives at [facility] - SURGICAL HISTORY Hx Cardiac Catheterization: Yes (CORONARY STENT) Hx Cholecystectomy: Yes Hx Coronary Stent: Yes Hx Open Heart Surgery: Yes (triple bypass) - ANESTHESIA Hx Anesthesia: Yes Hx Anesthesia Reactions: No Hx Malignant Hyperthermia: No Meds Allergies/Adverse Reactions: Allergies Allergy/AdvReac Type Severity Reaction Status Date / Time shellfish derived Allergy ANAPHYLAXIS Verified 04/29/18 18:57 Sulfa (Sulfonamide Allergy RASH Verified 04/29/18 18:57 Antibiotics) - Medications Medications: Current Medications Albuterol/Ipratropium (Duoneb 3 Mg/0.5 Mg (3 Ml) Ud) 3 ml IH Q2H PRN PRN Reason: Shortness of Breath Albuterol/Ipratropium (Duoneb 3 Mg/0.5 Mg (3 Ml) Ud) 3 ml IH [id number] [facility] Last Admin: 05/05/18 03:55 Dose: Not Given Aspirin (Ecotrin) 81 mg PO DAILY [facility] Atorvastatin Calcium (Lipitor) 40 mg PO DIN [facility] Last Admin: 05/04/18 23:41 Dose: 40 mg Carvedilol (Coreg) 12.5 mg PO BID [facility] Last Admin: 05/04/18 23:40 Dose: 12.5 mg Clopidogrel Bisulfate (Plavix) 75 mg PO DAILY [facility] Famotidine (Pepcid) 40 mg PO HS [facility] Folic Acid (Folic Acid) 1 mg PO DAILY [facility] Heparin Sodium (Porcine) (Heparin) 5,000 units SC Q8 [facility]; Protocol Last Admin: 05/04/18 23:49 Dose: 5,000 units Levofloxacin/Dextrose (Levaquin 500mg) 500 mg in 100 mls @ 100 mls/hr IVPB DAILY [facility]; Protocol Multivitamins/Vitamin C 10 ml/Thiamine HCl 100 mg/ Folic Acid 1 mg/ Sodium Chloride 1,011.2 mls @ 100 mls/hr IV .Q10H7M ONE Stop: 05/05/18 07:20 Last Admin: 05/04/18 23:41 Dose: 100 mls/hr Lisinopril (Zestril) 5 mg PO DAILY [facility] Lorazepam (Ativan) 1 mg IVP Q6H PRN; Protocol PRN Reason: Anxiety Last Admin: 05/04/18 23:50 Dose: 1 mg Methylprednisolone (Solu-Medrol) 40 mg IVP Q12 [facility] Last Admin: 05/04/18 23:48 Dose: 40 mg Montelukast Sodium (Singulair) 10 mg PO DAILY [facility] Multivitamins/Minerals (Therapeutic-M Tab) 1 tab PO 0800 [facility] Nicotine (Nicoderm Cq) 1 patch TD DAILY [facility] Non-Formulary Medication (Budesonide/Formoterol Fumarate [Symbicort 80-4.5 Mcg Inhaler]) 2 aer IH Q12 [facility] Thiamine HCl (Vitamin B1 Tab) 100 mg PO DAILY [facility] Physical Exam - Constitutional Appears: Non-toxic, No Acute Distress - Head Exam Head Exam: NORMAL INSPECTION, NORMOCEPHALIC - Eye Exam Eye Exam: Normal appearance Pupil Exam: NORMAL ACCOMODATION - ENT Exam ENT Exam: Mucous Membranes Dry - Respiratory Exam Respiratory Exam: Decreased Breath Sounds, Clear to Auscultation Bilateral, NORM AL BREATHING PATTERN - Cardiovascular Exam Cardiovascular Exam: REGULAR RHYTHM, +S1, +S2 Additional comments: No JVD vague chest discomfort radiating to arms and abdomen denies shortness of breath - GI/Abdominal Exam GI & Abdominal Exam: Normal Bowel Sounds, Soft Additional comments: denies nausea,denies vomiting - Exam Additional comments: deferred - Extremities Exam Extremities exam: Positive for: normal capillary refill - Neurological Exam Neurological exam: Alert, Oriented x3 - Psychiatric Exam Psychiatric exam: Normal Affect, Normal Mood - Skin Skin Exam: Dry, Normal Color, Warm Results - Vital Signs Recent Vital Signs: Last Vital Signs Temp 97.9 F 05/05/18 06:00 Pulse 75 05/05/18 06:00 Resp 18 05/05/18 06:00 BP 117/72 05/05/18 06:00 Pulse Ox 98 05/05/18 06:00 - Labs Result Diagrams: 05/05/18 05:30 05/05/18 05:30 Labs: Laboratory Results - last 24 hr 05/04/18 05/04/18 05/04/18 12:15 12:15 12:15 WBC 13.9 H D RBC 3.70 Hgb 12.1 L Hct 35.4 L MCV 95.7 MCH 32.7 MCHC 34.2 RDW 14.7 H Plt Count 236 MPV 9.1 Gran % 81.4 H Lymph % (Auto) 12.3 L [place] % (Auto) 6.2 H Eos % (Auto) 0.1 L Baso % (Auto) 0.0 Gran # 11.30 H Lymph # (Auto) 1.7 [place] # (Auto) 0.9 H Eos # (Auto) 0.0 Baso # (Auto) 0.00 PT 11.3 INR 0.98 APTT 23.2 L pCO2 pO2 HCO3 ABG pH ABG Total CO2 ABG O2 Saturation ABG Base Excess ABG Potassium Glucose Lactate FiO2 Sodium 131 L Potassium 4.7 Chloride 97 L Carbon Dioxide 27 Anion Gap 13 BUN 27 H Creatinine 0.7 L Est GFR ( Amer) > 60 Est GFR (Non-Af Amer) > 60 Random Glucose 85 Calcium 8.8 Magnesium 1.8 Total Bilirubin 0.5 AST 30 ALT 35 Alkaline Phosphatase 52 Lactate Dehydrogenase 442 Total Creatine Kinase 53 Troponin I 0.02 NT-Pro-B Natriuret Pep Total Protein 6.6 Albumin 3.9 Globulin 2.7 Albumin/Globulin Ratio 1.4 Arterial Blood Potassium Urine Color Urine Appearance Urine pH Ur Specific [place] Urine Protein Urine Glucose (UA) Urine Ketones Urine Blood Urine Nitrate Urine Bilirubin Urine Urobilinogen Ur Leukocyte Esterase Urine Opiates Screen Urine Methadone Screen Ur Barbiturates Screen Ur Phencyclidine Scrn Ur Amphetamines Screen U Benzodiazepines Scrn U Oth Cocaine Metabols U Cannabinoids Screen Alcohol, Quantitative Influenza Typ A,B (EIA) 05/04/18 05/04/18 05/04/18 12:15 20:41 20:41 WBC RBC Hgb Hct MCV MCH MCHC RDW Plt Count MPV Gran % Lymph % (Auto) [place] % (Auto) Eos % (Auto) Baso % (Auto) Gran # Lymph # (Auto) [place] # (Auto) Eos # (Auto) Baso # (Auto) PT INR APTT pCO2 pO2 HCO3 ABG pH ABG Total CO2 ABG O2 Saturation ABG Base Excess ABG Potassium Glucose Lactate FiO2 Sodium Potassium Chloride Carbon Dioxide Anion Gap BUN Creatinine Est GFR ( Amer) Est GFR (Non-Af Amer) Random Glucose Calcium Magnesium Total Bilirubin AST ALT Alkaline Phosphatase Lactate Dehydrogenase Total Creatine Kinase Troponin I NT-Pro-B Natriuret Pep Total Protein Albumin Globulin Albumin/Globulin Ratio Arterial Blood Potassium Urine Color Yellow Urine Appearance Clear Urine pH 7.5 Ur Specific [place] 1.010 Urine Protein Negative Urine Glucose (UA) Negative Urine Ketones Negative Urine Blood Negative Urine Nitrate Negative Urine Bilirubin Negative Urine Urobilinogen 0.2 Ur Leukocyte Esterase Negative Urine Opiates Screen Positive H Urine Methadone Screen Negative Ur Barbiturates Screen Negative Ur Phencyclidine Scrn Negative Ur Amphetamines Screen Negative U Benzodiazepines Scrn Negative U Oth Cocaine Metabols Negative U Cannabinoids Screen Negative Alcohol, Quantitative < 10 Influenza Typ A,B (EIA) 05/04/18 05/04/18 05/04/18 20:41 21:00 21:00 WBC 11.4 H RBC 3.56 Hgb 11.6 L Hct 34.1 L MCV 95.8 MCH 32.6 MCHC 34.0 RDW 15.0 H Plt Count 203 MPV 8.9 Gran % 89.7 H Lymph % (Auto) 6.4 L [place] % (Auto) 3.8 Eos % (Auto) 0.1 L Baso % (Auto) 0.0 Gran # 10.25 H Lymph # (Auto) 0.7 L [place] # (Auto) 0.4 Eos # (Auto) 0.0 Baso # (Auto) 0.00 PT INR APTT pCO2 pO2 HCO3 ABG pH ABG Total CO2 ABG O2 Saturation ABG Base Excess ABG Potassium Glucose Lactate FiO2 Sodium Potassium Chloride Carbon Dioxide Anion Gap BUN Creatinine Est GFR ( Amer) Est GFR (Non-Af Amer) Random Glucose Calcium Magnesium Total Bilirubin AST ALT Alkaline Phosphatase Lactate Dehydrogenase Total Creatine Kinase Troponin I NT-Pro-B Natriuret Pep 455 H Total Protein Albumin Globulin Albumin/Globulin Ratio Arterial Blood Potassium Urine Color Urine Appearance Urine pH Ur Specific [place] Urine Protein Urine Glucose (UA) Urine Ketones Urine Blood Urine Nitrate Urine Bilirubin Urine Urobilinogen Ur Leukocyte Esterase Urine Opiates Screen Urine Methadone Screen Ur Barbiturates Screen Ur Phencyclidine Scrn Ur Amphetamines Screen U Benzodiazepines Scrn U Oth Cocaine Metabols U Cannabinoids Screen Alcohol, Quantitative Influenza Typ A,B (EIA) Negative for flu a/b 05/04/18 05/05/18 05/05/18 21:05 00:10 05:30 WBC RBC Hgb Hct MCV MCH MCHC RDW Plt Count MPV Gran % Lymph % (Auto) [place] % (Auto) Eos % (Auto) Baso % (Auto) Gran # Lymph # (Auto) [place] # (Auto) Eos # (Auto) Baso # (Auto) PT INR APTT pCO2 30 L pO2 87.0 HCO3 23.9 ABG pH 7.51 H ABG Total CO2 24.8 ABG O2 Saturation 99.0 H ABG Base Excess 1.7 ABG Potassium 3.8 Glucose 126 H Lactate 1.8 FiO2 21.0 Sodium 132.0 Potassium Chloride 103.0 Carbon Dioxide Anion Gap BUN Creatinine Est GFR ( Amer) Est GFR (Non-Af Amer) Random Glucose Calcium Magnesium Total Bilirubin AST ALT Alkaline Phosphatase Lactate Dehydrogenase 872 H Total Creatine Kinase 50 Troponin I 0.01 D < 0.01 NT-Pro-B Natriuret Pep Total Protein Albumin Globulin Albumin/Globulin Ratio Arterial Blood Potassium 3.8 Urine Color Urine Appearance Urine pH Ur Specific [place] Urine Protein Urine Glucose (UA) Urine Ketones Urine Blood Urine Nitrate Urine Bilirubin Urine Urobilinogen Ur Leukocyte Esterase Urine Opiates Screen Urine Methadone Screen Ur Barbiturates Screen Ur Phencyclidine Scrn Ur Amphetamines Screen U Benzodiazepines Scrn U Oth Cocaine Metabols U Cannabinoids Screen Alcohol, Quantitative Influenza Typ A,B (EIA) 05/05/18 05:30 WBC 9.6 RBC 3.59 Hgb 11.6 L Hct 34.7 L MCV 96.7 MCH 32.3 MCHC 33.4 RDW 15.1 H Plt Count 207 MPV 9.0 Gran % 90.9 H Lymph % (Auto) 6.1 L [place] % (Auto) 3.0 Eos % (Auto) 0.0 L Baso % (Auto) 0.0 Gran # 8.76 H Lymph # (Auto) 0.6 L [place] # (Auto) 0.3 Eos # (Auto) 0.0 Baso # (Auto) 0.00 PT INR APTT pCO2 pO2 HCO3 ABG pH ABG Total CO2 ABG O2 Saturation ABG Base Excess ABG Potassium Glucose Lactate FiO2 Sodium Potassium Chloride Carbon Dioxide Anion Gap BUN Creatinine Est GFR ( Amer) Est GFR (Non-Af Amer) Random Glucose Calcium Magnesium Total Bilirubin AST ALT Alkaline Phosphatase Lactate Dehydrogenase Total Creatine Kinase Troponin I NT-Pro-B Natriuret Pep Total Protein Albumin Globulin Albumin/Globulin Ratio Arterial Blood Potassium Urine Color Urine Appearance Urine pH Ur Specific [place] Urine Protein Urine Glucose (UA) Urine Ketones Urine Blood Urine Nitrate Urine Bilirubin Urine Urobilinogen Ur Leukocyte Esterase Urine Opiates Screen Urine Methadone Screen Ur Barbiturates Screen Ur Phencyclidine Scrn Ur Amphetamines Screen U Benzodiazepines Scrn U Oth Cocaine Metabols U Cannabinoids Screen Alcohol, Quantitative Influenza Typ A,B (EIA) Assessment & Plan - Assessment and Plan (Free Text) Assessment: A 63 year old male who came in to the ER due to vague mid chest pain radiating to abdomen and arms.He also complaints of non productive cough and shortness of breath. History of coronary artery disease, status post CABG (2005) history of multiple stents in the past, history of alcohol abuse,anxiety, depression, c olitis, diverticulitis, GERD, anemia,arthritis,gout, degenerative joint disease.history of multiple admissions for chest pain,history of carotid endarterectomy, COPD,TIA,cholecystectomy. Current tobacco abuse (2PPD) and substance abuse. Consult was called to evaluate chest pain.He was just recently discharged from [facility]. (03/2018).He lives at [facility]. Atypical chest pain, rule out acute coronary syndrome. Troponin negative x 2 (0.02/0.01). EKG- NSR, no ischemia. Urine positive for opiates, possibly exacerbation of COPD due to shortness of breath and non productive coughing. Review of previous cardiac work up at [facility]: 04/06/18- Cardiac cath and PTCA [place] 3 vessel disease Patent BALLARD to LAD Patent SVG to ramus but at anastomotoc site 95% stenosis Patent SVG to OM1 Patent SVG to RCA Preserved LV function EF-55% Successful PTCA with APURVA of SVG to Ramus 04/04/18-ECHO done- LV size normal LVEF -normal Ventricular septum is aneurysmal Mild pulmonary hypertension Plan: Atypical chest pain,rule out acute coronary syndrome Urine positive for opiates Troponin x 2 normal EKG- NSR, no ischemia Heart rate and blood pressure controlled On ASA 81 mg daily,Lipitor 40 mg daily,Coreg 75 mg daily,Plavix 75 mg daily, Lisinopril 5 mg daily,Solumedrol 40 mg q 12 hours,Nicoderm patch daily Continue nebulizer treatment Continue low dose steroids Continue current treatment Chart reviewed Smoking cessation Will follow up Further recommendations during hospital course Plan and treatment discussed with Dr. Verdin Thank you Dr. Merrill for the opportunity of taking care of Mr. [place] Alexandra. - Date & Time Date: 05/05/18 Time: 06:10
[2018-05-05 08:26] LABS: BAND 1 % (0-2); LYMPHOCYTE 6 % (22.0-35.0); MONOCYTE 3 % (1.0-6.0); NEUTROPHIL 90 % (50.0-70.0)
[2018-05-05 08:27] LABS: PLATELET ESTIMATE NORMAL (NORMAL)
--- NOTE | 2018-05-05 09:53 | CP.PCM.CON ---
<BetoChris - Last Filed: 05/05/18 09:50> History of Present Illness - History of Present Illness History of Present Illness: Colten Pérez IM Resident - GI Consult Note for Dr. Weaver Consult Reason: hx of GERD?, ?scope HPI: Patient is a 63 year old male with past medical history of HTN, COPD, TIA, CAD s/p stent, CABG, hx of ETOH abuse, frequent admissions for chest discomfort who presented to [facility] complaining of cough and shortness of breath. Symptoms reportedly began shortly prior to arrival. Patient indicates that he experienced crampy chest discomfort that encompasses his entire anterior chest wall, left neck and into jaw. He indicates that he is very concerned about his symptoms due to his cardiac history. He reports nausea, diaphoresis, and non productive cough associated with his presentation. Patient denies abdominal pain, nausea, vomiting, fever, chills, constipation, diarrhea, weight loss. PMH: HTN, COPD, TIA, CAD with stents, CABG, EtOH abuse, and active tobacco abuse PSH: Carotid endarterectomy, choleycestectomy, CABG(2005) SOCHx: Tobacco: Heavy smoker (2 PPD), 60 pack year history, ETOH: >14 drinks a week, ID: Hx of cocaine, heroin, marijuana, denies recent use. Currently resides at [facility] ALL: Shellfish derived substances, Sulfa Meds: Atorvastatin, ASA, Albuterol, Benzonate, B12, Folate, Omeprazole, Carvediolol, meloxicam, ventolin PMD: Dr. Perry MRCP 06/2017: Cholecystectomy, CBD dilatation 8mm, focal stricture or kink within mid BD with linear filling defect not consistent with calculus Review of Systems - Review of Systems All systems: reviewed and no additional remarkable complaints except (as mentioned in HPI) Past Patient History - Infectious Disease Hx of Infectious Diseases: None - Tetanus Immunizations Tetanus Immunization: Unknown - Past Medical History & Family History Past Medical History?: Yes - Past Social History Smoking Status: Current Some Days Smoker - CARDIAC Hx Cardiac Disorders: Yes (CAD with stents, CABG, sinus bradycardia, cardiac arrythmias, angina) Hx Hypertension: Yes - PULMONARY Hx Chronic Obstructive Pulmonary Disease (COPD): Yes - NEUROLOGICAL Hx Neurological Disorder: Yes (peripheral neuropathy) Hx Dizziness: Yes Hx Migraine: Yes Hx Transient Ischemic Attacks (TIA): Yes Other/Comment: b/l legs burning numbnes, tingling - HEENT Hx HEENT Problems: Yes (eyeglasses, r eye lazy eye) Hx Cataracts: Yes - RENAL Hx Chronic Kidney Disease: Yes Hx Kidney Stones: Yes - ENDOCRINE/METABOLIC Hx Endocrine Disorders: No - HEMATOLOGICAL/ONCOLOGICAL Hx Blood Disorders: Yes Hx Anemia: Yes - INTEGUMENTARY Hx Dermatological Problems: Yes Other/Comment: VARICOSE 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, 2 small bruises to rcw and lcw, larger bruise left shoulder, thick hard toenails - MUSCULOSKELETAL/RHEUMATOLOGICAL Hx Musculoskeletal Disorders: Yes Hx Arthritis: Yes Hx Degenerative Joint Disease: Yes Hx Falls: Yes (past) Hx Fractures: Yes (RIB) Hx Gout: Yes Hx Unsteady Gait: Yes - GASTROINTESTINAL Hx Gastrointestinal Disorders: Yes (COLITIS,DIVERTICULOSIS) Hx Gall Bladder Disease: Yes (gallstones) Hx Gastroesophageal Reflux: Yes - GENITOURINARY/GYNECOLOGICAL Hx Genitourinary Disorders: Yes Hx Urinary Tract Infection: Yes - PSYCHIATRIC Hx Psychophysiologic Disorder: Yes (USED TO DRINK ALCOHOL.H/O ETOH ABUSE. QUIT.) Hx Anxiety: Yes Hx Depression: Yes Hx Post Traumatic Stress Disorder: Yes Hx Substance Use: Yes (COCAINE,HEROIN,MARIJUANA USE. H/O.DENIES RECENT USE.) Other/Comment: quit smoking 1 week ago, [facility],etoh abuse quit drinking sober 1 yr 6 months relapsed 04/03/18 then stopped again, personality disorder, smokes pot occasionally but quit heroin cocaine in , criminal charges in past, lives at [facility] - SURGICAL HISTORY Hx Cardiac Catheterization: Yes (CORONARY STENT) Hx Cholecystectomy: Yes Hx Coronary Stent: Yes Hx Open Heart Surgery: Yes (triple bypass) - ANESTHESIA Hx Anesthesia: Yes Hx Anesthesia Reactions: No Hx Malignant Hyperthermia: No Meds Allergies/Adverse Reactions: Allergies Allergy/AdvReac Type Severity Reaction Status Date / Time shellfish derived Allergy ANAPHYLAXIS Verified 04/29/18 18:57 Sulfa (Sulfonamide Allergy RASH Verified 04/29/18 18:57 Antibiotics) - Medications Medications: Current Medications Albuterol/Ipratropium (Duoneb 3 Mg/0.5 Mg (3 Ml) Ud) 3 ml IH Q2H PRN PRN Reason: Shortness of Breath Albuterol/Ipratropium (Duoneb 3 Mg/0.5 Mg (3 Ml) Ud) 3 ml IH [id number] [facility] Last Admin: 05/05/18 08:30 Dose: Not Given Aspirin (Ecotrin) 81 mg PO DAILY [facility] Atorvastatin Calcium (Lipitor) 40 mg PO DIN [facility] Last Admin: 05/04/18 23:41 Dose: 40 mg Carvedilol (Coreg) 12.5 mg PO BID [facility] Last Admin: 05/04/18 23:40 Dose: 12.5 mg Clopidogrel Bisulfate (Plavix) 75 mg PO DAILY [facility] Famotidine (Pepcid) 40 mg PO HS [facility] Folic Acid (Folic Acid) 1 mg PO DAILY [facility] Heparin Sodium (Porcine) (Heparin) 5,000 units SC Q8 [facility]; Protocol Last Admin: 05/04/18 23:49 Dose: 5,000 units Levofloxacin/Dextrose (Levaquin 500mg) 500 mg in 100 mls @ 100 mls/hr IVPB DAILY [facility]; Protocol Lisinopril (Zestril) 5 mg PO DAILY [facility] Lorazepam (Ativan) 1 mg IVP Q6H PRN; Protocol PRN Reason: Anxiety Last Admin: 05/04/18 23:50 Dose: 1 mg Methylprednisolone (Solu-Medrol) 40 mg IVP Q12 [facility] Last Admin: 05/04/18 23:48 Dose: 40 mg Montelukast Sodium (Singulair) 10 mg PO DAILY [facility] Multivitamins/Minerals (Therapeutic-M Tab) 1 tab PO 0800 [facility] Nicotine (Nicoderm Cq) 1 patch TD DAILY [facility] Non-Formulary Medication (Budesonide/Formoterol Fumarate [Symbicort 80-4.5 Mcg Inhaler]) 2 aer IH Q12 [facility] Thiamine HCl (Vitamin B1 Tab) 100 mg PO DAILY [facility] Physical Exam - Constitutional Appears: No Acute Distress, Unkempt, Older Than Stated Age - Head Exam Head Exam: ATRAUMATIC, NORMOCEPHALIC - Eye Exam Eye Exam: EOMI, PERRL. absent: Scleral icterus - ENT Exam ENT Exam: Mucous Membranes Moist - Neck Exam Neck exam: Positive for: Full Rom - Respiratory Exam Respiratory Exam: NORMAL BREATHING PATTERN - Cardiovascular Exam Cardiovascular Exam: REGULAR RHYTHM, +S1, +S2 - GI/Abdominal Exam GI & Abdominal Exam: Normal Bowel Sounds, Soft. absent: Distended, Firm, Tenderness - Extremities Exam Extremities exam: Negative for: pedal edema Additional comments: varicose veins b/l - Neurological Exam Neurological exam: Alert, CN II-XII Intact, Normal Gait, Oriented x3 - Psychiatric Exam Psychiatric exam: Normal Affect, Normal Mood - Skin Skin Exam: Dry, Warm Results - Vital Signs Recent Vital Signs: Last Vital Signs Temp 97.9 F 05/05/18 06:00 Pulse 75 05/05/18 06:00 Resp 18 05/05/18 06:00 BP 117/72 05/05/18 06:00 Pulse Ox 98 05/05/18 06:00 - Labs Result Diagrams: 05/05/18 05:30 05/05/18 05:30 Labs: Laboratory Results - last 24 hr 05/04/18 05/04/18 05/04/18 12:15 12:15 12:15 WBC 13.9 H D RBC 3.70 Hgb 12.1 L Hct 35.4 L MCV 95.7 MCH 32.7 MCHC 34.2 RDW 14.7 H Plt Count 236 MPV 9.1 Gran % 81.4 H Lymph % (Auto) 12.3 L Cross % (Auto) 6.2 H Eos % (Auto) 0.1 L Baso % (Auto) 0.0 Gran # 11.30 H Lymph # (Auto) 1.7 Cross # (Auto) 0.9 H Eos # (Auto) 0.0 Baso # (Auto) 0.00 Neutrophils % (Manual) Band Neutrophils % Lymphocytes % (Manual) Monocytes % (Manual) Platelet Evaluation PT 11.3 INR 0.98 APTT 23.2 L pCO2 pO2 HCO3 ABG pH ABG Total CO2 ABG O2 Saturation ABG Base Excess ABG Potassium Glucose Lactate FiO2 Sodium 131 L Potassium 4.7 Chloride 97 L Carbon Dioxide 27 Anion Gap 13 BUN 27 H Creatinine 0.7 L Est GFR ( Amer) > 60 Est GFR (Non-Af Amer) > 60 Random Glucose 85 Calcium 8.8 Magnesium 1.8 Total Bilirubin 0.5 AST 30 ALT 35 Alkaline Phosphatase 52 Lactate Dehydrogenase 442 Total Creatine Kinase 53 Troponin I 0.02 NT-Pro-B Natriuret Pep Total Protein 6.6 Albumin 3.9 Globulin 2.7 Albumin/Globulin Ratio 1.4 Arterial Blood Potassium Urine Color Urine Appearance Urine pH Ur Specific [place] Urine Protein Urine Glucose (UA) Urine Ketones Urine Blood Urine Nitrate Urine Bilirubin Urine Urobilinogen Ur Leukocyte Esterase Urine Opiates Screen Urine Methadone Screen Ur Barbiturates Screen Ur Phencyclidine Scrn Ur Amphetamines Screen U Benzodiazepines Scrn U Oth Cocaine Metabols U Cannabinoids Screen Alcohol, Quantitative Influenza Typ A,B (EIA) 05/04/18 05/04/18 05/04/18 12:15 20:41 20:41 WBC RBC Hgb Hct MCV MCH MCHC RDW Plt Count MPV Gran % Lymph % (Auto) Cross % (Auto) Eos % (Auto) Baso % (Auto) Gran # Lymph # (Auto) Cross # (Auto) Eos # (Auto) Baso # (Auto) Neutrophils % (Manual) Band Neutrophils % Lymphocytes % (Manual) Monocytes % (Manual) Platelet Evaluation PT INR APTT pCO2 pO2 HCO3 ABG pH ABG Total CO2 ABG O2 Saturation ABG Base Excess ABG Potassium Glucose Lactate FiO2 Sodium Potassium Chloride Carbon Dioxide Anion Gap BUN Creatinine Est GFR ( Amer) Est GFR (Non-Af Amer) Random Glucose Calcium Magnesium Total Bilirubin AST ALT Alkaline Phosphatase Lactate Dehydrogenase Total Creatine Kinase Troponin I NT-Pro-B Natriuret Pep Total Protein Albumin Globulin Albumin/Globulin Ratio Arterial Blood Potassium Urine Color Yellow Urine Appearance Clear Urine pH 7.5 Ur Specific [place] 1.010 Urine Protein Negative Urine Glucose (UA) Negative Urine Ketones Negative Urine Blood Negative Urine Nitrate Negative Urine Bilirubin Negative Urine Urobilinogen 0.2 Ur Leukocyte Esterase Negative Urine Opiates Screen Positive H Urine Methadone Screen Negative Ur Barbiturates Screen Negative Ur Phencyclidine Scrn Negative Ur Amphetamines Screen Negative U Benzodiazepines Scrn Negative U Oth Cocaine Metabols Negative U Cannabinoids Screen Negative Alcohol, Quantitative < 10 Influenza Typ A,B (EIA) 05/04/18 05/04/18 05/04/18 20:41 21:00 21:00 WBC 11.4 H RBC 3.56 Hgb 11.6 L Hct 34.1 L MCV 95.8 MCH 32.6 MCHC 34.0 RDW 15.0 H Plt Count 203 MPV 8.9 Gran % 89.7 H Lymph % (Auto) 6.4 L Cross % (Auto) 3.8 Eos % (Auto) 0.1 L Baso % (Auto) 0.0 Gran # 10.25 H Lymph # (Auto) 0.7 L Cross # (Auto) 0.4 Eos # (Auto) 0.0 Baso # (Auto) 0.00 Neutrophils % (Manual) Band Neutrophils % Lymphocytes % (Manual) Monocytes % (Manual) Platelet Evaluation PT INR APTT pCO2 pO2 HCO3 ABG pH ABG Total CO2 ABG O2 Saturation ABG Base Excess ABG Potassium Glucose Lactate FiO2 Sodium Potassium Chloride Carbon Dioxide Anion Gap BUN Creatinine Est GFR ( Amer) Est GFR (Non-Af Amer) Random Glucose Calcium Magnesium Total Bilirubin AST ALT Alkaline Phosphatase Lactate Dehydrogenase Total Creatine Kinase Troponin I NT-Pro-B Natriuret Pep 455 H Total Protein Albumin Globulin Albumin/Globulin Ratio Arterial Blood Potassium Urine Color Urine Appearance Urine pH Ur Specific [place] Urine Protein Urine Glucose (UA) Urine Ketones Urine Blood Urine Nitrate Urine Bilirubin Urine Urobilinogen Ur Leukocyte Esterase Urine Opiates Screen Urine Methadone Screen Ur Barbiturates Screen Ur Phencyclidine Scrn Ur Amphetamines Screen U Benzodiazepines Scrn U Oth Cocaine Metabols U Cannabinoids Screen Alcohol, Quantitative Influenza Typ A,B (EIA) Negative for flu a/b 05/04/18 05/05/18 05/05/18 21:05 00:10 05:30 WBC RBC Hgb Hct MCV MCH MCHC RDW Plt Count MPV Gran % Lymph % (Auto) Cross % (Auto) Eos % (Auto) Baso % (Auto) Gran # Lymph # (Auto) Cross # (Auto) Eos # (Auto) Baso # (Auto) Neutrophils % (Manual) Band Neutrophils % Lymphocytes % (Manual) Monocytes % (Manual) Platelet Evaluation PT INR APTT pCO2 30 L pO2 87.0 HCO3 23.9 ABG pH 7.51 H ABG Total CO2 24.8 ABG O2 Saturation 99.0 H ABG Base Excess 1.7 ABG Potassium 3.8 Glucose 126 H Lactate 1.8 FiO2 21.0 Sodium 132.0 134 Potassium 4.6 Chloride 103.0 101 Carbon Dioxide 25 Anion Gap 13 BUN 24 H Creatinine 0.7 L Est GFR ( Amer) > 60 Est GFR (Non-Af Amer) > 60 Random Glucose 109 Calcium 8.9 Magnesium Total Bilirubin 0.7 AST 150 H D ALT 240 H Alkaline Phosphatase 90 Lactate Dehydrogenase 872 H 692 Total Creatine Kinase 50 39 Troponin I 0.01 D < 0.01 NT-Pro-B Natriuret Pep Total Protein 6.4 Albumin 3.8 Globulin 2.6 Albumin/Globulin Ratio 1.5 Arterial Blood Potassium 3.8 Urine Color Urine Appearance Urine pH Ur Specific [place] Urine Protein Urine Glucose (UA) Urine Ketones Urine Blood Urine Nitrate Urine Bilirubin Urine Urobilinogen Ur Leukocyte Esterase Urine Opiates Screen Urine Methadone Screen Ur Barbiturates Screen Ur Phencyclidine Scrn Ur Amphetamines Screen U Benzodiazepines Scrn U Oth Cocaine Metabols U Cannabinoids Screen Alcohol, Quantitative Influenza Typ A,B (EIA) 05/05/18 05:30 WBC 9.6 RBC 3.59 Hgb 11.6 L Hct 34.7 L MCV 96.7 MCH 32.3 MCHC 33.4 RDW 15.1 H Plt Count 207 MPV 9.0 Gran % 90.9 H Lymph % (Auto) 6.1 L Cross % (Auto) 3.0 Eos % (Auto) 0.0 L Baso % (Auto) 0.0 Gran # 8.76 H Lymph # (Auto) 0.6 L Cross # (Auto) 0.3 Eos # (Auto) 0.0 Baso # (Auto) 0.00 Neutrophils % (Manual) 90 H Band Neutrophils % 1 Lymphocytes % (Manual) 6 L Monocytes % (Manual) 3 Platelet Evaluation Normal PT INR APTT pCO2 pO2 HCO3 ABG pH ABG Total CO2 ABG O2 Saturation ABG Base Excess ABG Potassium Glucose Lactate FiO2 Sodium Potassium Chloride Carbon Dioxide Anion Gap BUN Creatinine Est GFR ( Amer) Est GFR (Non-Af Amer) Random Glucose Calcium Magnesium Total Bilirubin AST ALT Alkaline Phosphatase Lactate Dehydrogenase Total Creatine Kinase Troponin I NT-Pro-B Natriuret Pep Total Protein Albumin Globulin Albumin/Globulin Ratio Arterial Blood Potassium Urine Color Urine Appearance Urine pH Ur Specific [place] Urine Protein Urine Glucose (UA) Urine Ketones Urine Blood Urine Nitrate Urine Bilirubin Urine Urobilinogen Ur Leukocyte Esterase Urine Opiates Screen Urine Methadone Screen Ur Barbiturates Screen Ur Phencyclidine Scrn Ur Amphetamines Screen U Benzodiazepines Scrn U Oth Cocaine Metabols U Cannabinoids Screen Alcohol, Quantitative Influenza Typ A,B (EIA) Assessment & Plan - Assessment and Plan (Free Text) Assessment: 63 year old male with past medical history of HTN, COPD, TIA, CAD s/p stent, CABG, hx of ETOH abuse, frequent admissions for chest discomfort who presented to [facility] complaining of cough and shortness of breath. GI consulted for history of GERD. Plan: GERD HTN COPD CAD s/p stents s/p CABG ETOH Abuse - Per chart review no indication of previous endoscopy or colonoscopy, MRCP from 06/2017 indicating cholecystectomy with CBD dilation - Continue PPI - Smoking and alcohol counseling and cessation provided - No indications for emergent endoscopy at this time - Further recommendations per Dr. Weaver - Date & Time Date: 05/05/18 Time: 09:51 <Jyoti Weaver V - Last Filed: 05/06/18 01:01> Meds - Medications Medications: Current Medications Albuterol/Ipratropium (Duoneb 3 Mg/0.5 Mg (3 Ml) Ud) 3 ml IH Q2H PRN PRN Reason: Shortness of Breath Albuterol/Ipratropium (Duoneb 3 Mg/0.5 Mg (3 Ml) Ud) 3 ml IH [id number] [facility] Last Admin: 05/06/18 00:34 Dose: Not Given Aspirin (Ecotrin) 81 mg PO DAILY [facility] Last Admin: 05/05/18 10:42 Dose: 81 mg Atorvastatin Calcium (Lipitor) 40 mg PO DIN [facility] Last Admin: 05/05/18 17:14 Dose: 40 mg Budesonide (Pulmicort Respules) 0.5 mg IH [id number] [facility] Last Admin: 05/05/18 19:40 Dose: 0.5 mg Carvedilol (Coreg) 12.5 mg PO BID [facility] Last Admin: 05/05/18 17:14 Dose: 12.5 mg Clopidogrel Bisulfate (Plavix) 75 mg PO DAILY [facility] Last Admin: 05/05/18 10:42 Dose: 75 mg Famotidine (Pepcid) 40 mg PO HS [facility] Last Admin: 05/05/18 21:15 Dose: 40 mg Folic Acid (Folic Acid) 1 mg PO DAILY [facility] Last Admin: 05/05/18 10:42 Dose: 1 mg Heparin Sodium (Porcine) (Heparin) 5,000 units SC Q8 [facility]; Protocol Last Admin: 05/05/18 21:15 Dose: 5,000 units Levofloxacin/Dextrose (Levaquin 500mg) 500 mg in 100 mls @ 100 mls/hr IVPB DAILY [facility]; Protocol Last Admin: 05/05/18 10:43 Dose: 100 mls/hr Sodium Chloride (Sodium Chloride 0.9%) 1,000 mls @ 100 mls/hr IV .Q10H [facility] Last Admin: 05/05/18 17:00 Dose: Not Given Ceftriaxone Sodium (Rocephin 1 Gram Ivpb) 1 gm in 100 mls @ 100 mls/hr IVPB DAILY [facility]; Protocol Stop: 05/13/18 19:01 Last Admin: 05/05/18 20:00 Dose: 100 mls/hr Ibuprofen (Motrin Tab) 600 mg PO Q6H PRN PRN Reason: Pain, Mild (1-3) Last Admin: 05/05/18 17:14 Dose: 600 mg Lisinopril (Zestril) 5 mg PO DAILY [facility] Last Admin: 05/05/18 10:42 Dose: 5 mg Lorazepam (Ativan) 1 mg IVP Q6H PRN; Protocol PRN Reason: Anxiety Last Admin: 05/04/18 23:50 Dose: 1 mg Methylprednisolone (Solu-Medrol) 40 mg IVP Q12 [facility] Last Admin: 05/05/18 21:15 Dose: 40 mg Montelukast Sodium (Singulair) 10 mg PO DAILY [facility] Last Admin: 05/05/18 10:42 Dose: 10 mg Multivitamins/Minerals (Therapeutic-M Tab) 1 tab PO 0800 [facility] Last Admin: 05/05/18 10:43 Dose: 1 tab Nicotine (Nicoderm Cq) 1 patch TD DAILY [facility] Last Admin: 05/05/18 10:43 Dose: 1 patch Thiamine HCl (Vitamin B1 Tab) 100 mg PO DAILY [facility] Last Admin: 05/05/18 10:41 Dose: 100 mg Results - Vital Signs Recent Vital Signs: Last Vital Signs Temp 97.9 F 05/05/18 06:00 Pulse 64 05/05/18 17:14 Resp 18 05/05/18 18:37 BP 130/68 05/05/18 17:14 Pulse Ox 97 05/05/18 18:37 - Labs Result Diagrams: 05/05/18 05:30 05/05/18 05:30 Labs: Laboratory Results - last 24 hr 05/04/18 05/05/18 05/05/18 20:55 05:30 05:30 WBC 9.6 RBC 3.59 Hgb 11.6 L Hct 34.7 L MCV 96.7 MCH 32.3 MCHC 33.4 RDW 15.1 H Plt Count 207 MPV 9.0 Gran % 90.9 H Lymph % (Auto) 6.1 L Cross % (Auto) 3.0 Eos % (Auto) 0.0 L Baso % (Auto) 0.0 Gran # 8.76 H Lymph # (Auto) 0.6 L Cross # (Auto) 0.3 Eos # (Auto) 0.0 Baso # (Auto) 0.00 Neutrophils % (Manual) 90 H Band Neutrophils % 1 Lymphocytes % (Manual) 6 L Monocytes % (Manual) 3 Platelet Evaluation Normal Sodium 134 Potassium 4.6 Chloride 101 Carbon Dioxide 25 Anion Gap 13 BUN 24 H Creatinine 0.7 L Est GFR ( Amer) > 60 Est GFR (Non-Af Amer) > 60 Random Glucose 109 Calcium 8.9 Total Bilirubin 0.7 AST 150 H D ALT 240 H Alkaline Phosphatase 90 Lactate Dehydrogenase 692 Total Creatine Kinase 39 Troponin I < 0.01 Total Protein 6.4 Albumin 3.8 Globulin 2.6 Albumin/Globulin Ratio 1.5 Procalcitonin 0.12 L Attending/Attestation - Attestation I have personally seen and examined this patient.: Yes I have fully participated in the care of the patient.: Yes I have reviewed all pertinent clinical information: Yes Notes (Text): This is an addendum to GI consult report dictated by the [facility] Physicist.The patient was seen and evaluated earlier. Medical records, lab studies, imagings were reviewed. Last 24 hours events reviewed. Agreed with the above treatment plan as outlined in [facility] Phys[facility]ist 's notes with the addition of the following This GI year old patient with a past medical patient with CAD, COPD history of alcohol abuse poly-substance abuse in the past Admitted with chest pain, shortness of breathe GI consult was requested to evaluate atypical chest pain/epigastric pain Previous medical records reviewed On examination abdomen soft no mass no tenderness 1 abnormal LFT 2 GEARD 3 History of abnormal MRCP ?mid-CBD stricture Recommendation 1 Continue PPI 2 Hepatitis profile and followup LFT 3 Repeat MRCP to follow questionable mid-sigmoidal stricture 4 cardiology followup 05/06/18 00:53
[2018-05-05] MEDS: MethylPREDNISolone 40 mg Vial IVP SCH ×2 (10:43→21:15)
[2018-05-05] MEDS: Multivitamin With Minerals Tab PO SCH (10:43)
[2018-05-05] MEDS: levoFLOXacin 500 mg in D5W 500 MG/100 ML BAG IVPB SCH (10:43)
--- NOTE | 2018-05-05 13:22 | CP.PCM.PN ---
<Robert Brower - Last Filed: 05/05/18 17:27> Subjective - Date & Time of Evaluation Date of Evaluation: 05/05/18 Time of Evaluation: 13:21 - Subjective Subjective: INTERNAL MEDICINE PROGRESS NOTE FOR DR. KATIA Brower PGY-1 Pt seen and examined at bedside this am. Pt reports improvment in SOB symptoms. He denies fevers, chills, headache, dizziness, cough, chest pain, shortness of breath, nausea, vomiting, constipation, diarrhea, dysuria. Objective - Vital Signs/Intake and Output Vital Signs (last 24 hours): Temp Pulse Resp BP Pulse Ox 97.9 F 78 18 135/65 98 05/05/18 06:00 05/05/18 11:14 05/05/18 06:00 05/05/18 10:42 05/05/18 06:00 Intake and Output: 05/05/18 05/05/18 06:59 18:59 Intake Total 900 Output Total 200 Balance 700 - Medications Medications: Current Medications Albuterol/Ipratropium (Duoneb 3 Mg/0.5 Mg (3 Ml) Ud) 3 ml IH Q2H PRN PRN Reason: Shortness of Breath Albuterol/Ipratropium (Duoneb 3 Mg/0.5 Mg (3 Ml) Ud) 3 ml IH [id number] [facility] Last Admin: 05/05/18 11:12 Dose: 3 ml Aspirin (Ecotrin) 81 mg PO DAILY [facility] Last Admin: 05/05/18 10:42 Dose: 81 mg Atorvastatin Calcium (Lipitor) 40 mg PO DIN [facility] Last Admin: 05/04/18 23:41 Dose: 40 mg Budesonide (Pulmicort Respules) 0.5 mg IH [id number] [facility] Carvedilol (Coreg) 12.5 mg PO BID [facility] Last Admin: 05/05/18 10:41 Dose: 12.5 mg Clopidogrel Bisulfate (Plavix) 75 mg PO DAILY [facility] Last Admin: 05/05/18 10:42 Dose: 75 mg Famotidine (Pepcid) 40 mg PO HS [facility] Folic Acid (Folic Acid) 1 mg PO DAILY [facility] Last Admin: 05/05/18 10:42 Dose: 1 mg Heparin Sodium (Porcine) (Heparin) 5,000 units SC Q8 [facility]; Protocol Last Admin: 05/04/18 23:49 Dose: 5,000 units Levofloxacin/Dextrose (Levaquin 500mg) 500 mg in 100 mls @ 100 mls/hr IVPB DAILY [facility]; Protocol Last Admin: 05/05/18 10:43 Dose: 100 mls/hr Lisinopril (Zestril) 5 mg PO DAILY [facility] Last Admin: 05/05/18 10:42 Dose: 5 mg Lorazepam (Ativan) 1 mg IVP Q6H PRN; Protocol PRN Reason: Anxiety Last Admin: 05/04/18 23:50 Dose: 1 mg Methylprednisolone (Solu-Medrol) 40 mg IVP Q12 [facility] Last Admin: 05/05/18 10:43 Dose: 40 mg Montelukast Sodium (Singulair) 10 mg PO DAILY [facility] Last Admin: 05/05/18 10:42 Dose: 10 mg Multivitamins/Minerals (Therapeutic-M Tab) 1 tab PO 0800 [facility] Last Admin: 05/05/18 10:43 Dose: 1 tab Nicotine (Nicoderm Cq) 1 patch TD DAILY [facility] Last Admin: 05/05/18 10:43 Dose: 1 patch Thiamine HCl (Vitamin B1 Tab) 100 mg PO DAILY [facility] Last Admin: 05/05/18 10:41 Dose: 100 mg - Labs Labs: 05/05/18 05:30 05/05/18 05:30 PT 11.3 SECONDS (9.4-12.5) 05/04/18 12:15 INR 0.98 05/04/18 12:15 APTT 23.2 Seconds (25.1-36.5) L 05/04/18 12:15 - Constitutional Appears: Well, Non-toxic, No Acute Distress - Head Exam Head Exam: NORMOCEPHALIC - Eye Exam Eye Exam: EOMI, Normal appearance - ENT Exam ENT Exam: Mucous Membranes Moist, Normal Exam - Neck Exam Neck Exam: Normal Inspection - Respiratory Exam Respiratory Exam: Clear to Ausculation Bilateral, NORMAL BREATHING PATTERN - Cardiovascular Exam Cardiovascular Exam: REGULAR RHYTHM, +S1, +S2 - GI/Abdominal Exam GI & Abdominal Exam: Soft, Normal Bowel Sounds - Extremities Exam Extremities Exam: Normal Inspection. absent: Calf Tenderness - Back Exam Back Exam: NORMAL INSPECTION - Neurological Exam Neurological Exam: Alert, Awake, Oriented x3 - Psychiatric Exam Psychiatric exam: Normal Affect, Normal Mood - Skin Skin Exam: Dry, Intact, Warm Assessment and Plan - Assessment and Plan (Free Text) Assessment: Patient is a 63 year old male with past medical history of HTN, COPD, TIA, CAD w ith stents, CABG, ETOH abuse, and active tobacco abuse admitted for evaluation and treatment of chest pain and SOB. Plan: Shortness of breath 2/2 COPD Exacerbation CXR: negative for active disease Likely secondary to COPD exacerbation secondary to medication noncompliance and tobacco abuse ABG shows uncompensated respiratory alkalosis, Lactate 1.8. 7.// Continue Duonebs q4 scheduled and q2 PRN Continue home budesonide and singulair Continue IV Levaquin for COPD exacerbation coverage Continue IV Solumedrol 40mg q12 f/u sputum and urine cx f/u Mycoplasma, legionella and Pnuemo urine level f/u Procalcitonin Atypical Chest pain, Hx of CAD/CABG Rule out ACS BNP 455 Trop 0.02, 0.01, <0.01 EKG in ED- NSR No ST-T wave changes, HR 85 bpm Continue daily ASA 81mg and Plavix 75mg, statin, and ACEi Restarting home coreg BID with holding parameters [facility] cardiology consult - Dr. Verdin - recommendations appreciated GI consulted for GERD symptoms Hx of ETOH Continue Ativan 1 mg q6 PRN for withdrawals Start Thiamine, folate and multivitamin tablet tomorrow, NS@100mls/hr continue to monitor Seizure precautions CIWA protocol Hx of HTN continue home coreg BP currently controlled in 130's/90's,monitor closely Tobacco abuse nicotine patch prn tobacco with encourage cessation of tobacco use Prophylaxis: DVT- Heparin, SCDs GI- famotidine Case seen, examined and discussed with attending physician, Dr. Ramirez <Capo Ramirez - Last Filed: 05/06/18 17:51> Objective - Vital Signs/Intake and Output Vital Signs (last 24 hours): Temp Pulse Resp BP Pulse Ox 98.6 F 96 H 17 139/70 100 05/06/18 13:47 05/06/18 13:47 05/06/18 13:47 05/06/18 13:47 05/06/18 09:00 Intake and Output: 05/06/18 05/06/18 06:59 18:59 Intake Total 1300 Output Total 1000 Balance 300 - Labs Labs: 05/06/18 06:30 05/06/18 06:30 PT 11.3 SECONDS (9.4-12.5) 05/04/18 12:15 INR 0.98 05/04/18 12:15 APTT 23.2 Seconds (25.1-36.5) L 05/04/18 12:15 Attending/Attestation - Attestation I have personally seen and examined this patient.: Yes I have fully participated in the care of the patient.: Yes I have reviewed all pertinent clinical information, including history, physical exam and plan: Yes Notes (Text): 05/06/18 17:48 attending note; Patient seen and examined with resident. Patient is alert and awake. Complaining of nonspecific chest abdominal discomfort. Not in any acute distress. Mild wheezing noted. Patient is a 63 year old male with past medical history of HTN, COPD, TIA, CAD with stents, CABG, ETOH abuse, and active tobacco abuse admitted for evaluation and treatment of chest pain and SOB. Cardiac enzymes negative. Cardiology evaluation appreciated. CAD and recent stent placement. Continue aspirin, Plavix, Lipitor, Coreg , lisinopril and Imdur. COPD; continue DuoNeb treatment and IV Solu-Medrol. Patient continues to smoke despite of multiple admissions for COPD. Complete smoking cessation is strongly advised. abdominal discomfort. GI evaluation requested. history of alcohol abuse; complete alcohol cessation is strongly advised. Patient is noncompliant with follow-up PMD and other consultants. Need for medication compliance and follow-up insisted in great detail. Prognosis is poor secondary to continue smoking, alcohol abuse and noncompliance. Upon discharge the patient will follow-up with PMD Dr. Damon. 05/06/18 17:51
--- NOTE | 2018-05-05 14:45 | CARD ---
APPROVED REPORT Date of service: 05/05/2018 EKG Measurement Heart [id number] <Conclusion> Normal sinus rhythm Minimal voltage criteria for LVH, may be normal variant Borderline ECG
[2018-05-05] MEDS: Sodium Chloride 0.9% 1,000 ML IV SCH (17:00)
[2018-05-05] MEDS: Budesonide 0.5 mg/2 ml Inhal Susp UD IH SCH (19:40)
[2018-05-05] MEDS: cefTRIAXone 1 gm 1 GM/100 ML BAG IVPB SCH (20:00)
--- NOTE | 2018-05-05 22:22 | CON ---
DATE: 05/05/2018 HISTORY OF PRESENT ILLNESS: The patient admitted with chest pain, very vague and says that it is mostly on coughing with exacerbation of COPD, history of recent stent with bare metal stent done. Lives in [facility]. History of coronary artery bypass surgery in 2005. PTCA of SVG to ramus was done on the last admission, 04/06/2018 with the bare metal stent. At that time, cardiac catheterization revealed triple-vessel disease, patent BALLARD to LAD, patent SVG to ANGELA but anastomotic site 95% of stenosis, patent SVG to OM1, patent SVG to RCA; present value of ejection fraction of 55% and the patient underwent subsequently bare metal stenting SVG to RCA on 04/06/2018. Echo on 04/04/2018 shows ejection fraction normal, ventricular septal aneurysm noted, mild pulmonary hypertension. RECOMMENDATION: Continue aspirin, continue Coreg, continue Plavix as long as the patient can tolerate, for four weeks; the patient can come off only the day before 28th day. On this admission, the patient appears to be more in exacerbation of COPD, acute diagnosis to COPD; so far troponin negative, no evidence of acute RI, no evidence of acute unstable angina, acute coronary syndrome. We will discontinue telemetry. Thank you, Dr. Ramirez, for providing us the opportunity in taking care of the patient, Mr. Alexandra. Flor Verdin MD
[2018-05-06] MEDS: Albuterol-Ipratrop 3 mg / 0.5 (3 ml) UD IH SCH ×4 (00:34→11:43)
--- NOTE | 2018-05-06 05:51 | CON ---
DATE: 05/05/2018 The patient is seen earlier today in 264, bed 2. CHIEF COMPLAINT: Weakness times several days. HISTORY OF PRESENT ILLNESS: A 63-year-old male with past medical history significant for healthcare-associated pneumonia for which he had multiple admissions in the past, who is admitted on this admission with a diagnosis of chronic obstructive lung disease exacerbation. The patient was seen in the emergency room by Dr. Rachel Reese. Past medical history also with coronary artery disease, chronic obstructive lung disease with a history of migraine, history of TIA, peripheral neuropathy, kidney stones, anemia, admitted through the emergency room complaining of chest pain and weakness. States that his body hurts everywhere. REVIEW OF SYSTEMS: A 12-point review of systems is performed. The patient denies any chest pain now, he did have chest pain earlier with low-grade fevers. No nausea. No vomiting. No abdominal pain, diarrhea, or constipation. No dysuria or frequency. No headaches now. No blurred vision. No neck pain. No sore throat. PAST MEDICAL HISTORY: Significant for coronary artery disease, chronic obstructive lung disease, migraine headaches, TIA, kidney stones, anemia, healthcare-associated pneumonia, myocardial infarction, diabetes mellitus, seizures. PAST SURGICAL HISTORY: Significant for cardiac stents, coronary bypass graft, cholecystectomy. THE PATIENT IS ALLERGIC TO SULFA AND SHELLFISH. Medications at home are reviewed and include prednisone. PHYSICAL EXAMINATION GENERAL: The patient is in bed, appearing chronically ill, debilitated, cachectic with a temperature of 98, heart rate of 78, respiratory rate of 18, blood pressure is 130/60. HEENT: Unremarkable. NECK: Supple. LUNGS: Decreased breath sounds. HEART: Normal S1, S2. ABDOMEN: Soft, nontender. No organomegaly, no rebound, no guarding. No masses. LABORATORY EXAMINATION: Reveals the patient's white count of 13,900, hemoglobin of 12, platelets of 236. Chemistry reveals a BUN of 27, creatinine of 0.7. LDH is 874, the BNP is 455, procalcitonin 0.12. AST is 150, ALT is 140. BUN and creatinine as noted. The patient's procalcitonin is 0.12. Urinalysis is unremarkable. Toxicology reveals screening for opiates is positive. Serology, influenza is negative. Microbiology is pending. The patient had a chest x-ray which is negative. consultation is noted. History and examination is reviewed. ASSESSMENT AND PLAN: He is a 63-year-old male with history of coronary artery disease, myocardial infarction, history of healthcare-associated pneumonia, history of diabetes mellitus, seizures, alcohol abuse, migraine, TIA, peripheral neuropathy, kidney stones, anemia, was admitted now with chest pain, found to have leukocytosis. Now, the leukocytosis is resolved. Negative chest x-ray. Negative urinalysis. Currently on Levaquin, on Solu-Medrol. The patient has MRCP pending. He had abdominal pain on and off with the chest pain. The patient appears to have improved. We will start the patient on ceftriaxone, pending MRCP, blood cultures, urine cultures. We will also order blood cultures x2. We will make further recommendations upon availability of initial culture results and workup results. Negative procalcitonin. I will follow closely with you. Isaak Carbajal MD
[2018-05-06] MEDS: Sodium Chloride 0.9% 1,000 ML IV SCH (06:30)
[2018-05-06] MEDS: Budesonide 0.5 mg/2 ml Inhal Susp UD IH SCH (06:40)
--- NOTE | 2018-05-06 07:05 | CP.PCM.PN ---
Subjective - Date & Time of Evaluation Date of Evaluation: 05/06/18 Time of Evaluation: 06:15 - Subjective Subjective: Awake, alert,feels okay Reason for consultation and follow up :Cardiac evaluation of chest pain, History of coronary artery disease, status post CABG (2005) history of multiple stents in the past, history of alcohol abuse,history of multiple admissions for chest pain,history of carotid endarterectomy, COPD,TIA,cholecystectomy. Current tobacco abuse (2PPD). Seen and examined by me and Dr. Verdin Objective - Vital Signs/Intake and Output Vital Signs (last 24 hours): Temp Pulse Resp BP Pulse Ox 98 F 61 20 118/69 99 05/06/18 00:01 05/06/18 00:01 05/06/18 00:01 05/06/18 00:01 05/06/18 00:01 Intake and Output: 05/06/18 05/06/18 06:59 18:59 Intake Total 600 Output Total 500 Balance 100 - Medications Medications: Current Medications Albuterol/Ipratropium (Duoneb 3 Mg/0.5 Mg (3 Ml) Ud) 3 ml IH Q2H PRN PRN Reason: Shortness of Breath Albuterol/Ipratropium (Duoneb 3 Mg/0.5 Mg (3 Ml) Ud) 3 ml IH [id number] [facility] Last Admin: 05/06/18 06:41 Dose: 3 ml Aspirin (Ecotrin) 81 mg PO DAILY [facility] Last Admin: 05/05/18 10:42 Dose: 81 mg Atorvastatin Calcium (Lipitor) 40 mg PO DIN [facility] Last Admin: 05/05/18 17:14 Dose: 40 mg Budesonide (Pulmicort Respules) 0.5 mg IH [id number] [facility] Last Admin: 05/05/18 19:40 Dose: 0.5 mg Carvedilol (Coreg) 12.5 mg PO BID [facility] Last Admin: 05/05/18 17:14 Dose: 12.5 mg Clopidogrel Bisulfate (Plavix) 75 mg PO DAILY [facility] Last Admin: 05/05/18 10:42 Dose: 75 mg Famotidine (Pepcid) 40 mg PO HS [facility] Last Admin: 05/05/18 21:15 Dose: 40 mg Folic Acid (Folic Acid) 1 mg PO DAILY [facility] Last Admin: 05/05/18 10:42 Dose: 1 mg Heparin Sodium (Porcine) (Heparin) 5,000 units SC Q8 [facility]; Protocol Last Admin: 05/06/18 06:14 Dose: 5,000 units Levofloxacin/Dextrose (Levaquin 500mg) 500 mg in 100 mls @ 100 mls/hr IVPB DAILY [facility]; Protocol Last Admin: 05/05/18 10:43 Dose: 100 mls/hr Sodium Chloride (Sodium Chloride 0.9%) 1,000 mls @ 100 mls/hr IV .Q10H [facility] Last Admin: 05/06/18 06:30 Dose: 100 mls/hr Ceftriaxone Sodium (Rocephin 1 Gram Ivpb) 1 gm in 100 mls @ 100 mls/hr IVPB DAILY [facility]; Protocol Stop: 05/13/18 19:01 Last Admin: 05/05/18 20:00 Dose: 100 mls/hr Ibuprofen (Motrin Tab) 600 mg PO Q6H PRN PRN Reason: Pain, Mild (1-3) Last Admin: 05/06/18 06:58 Dose: 600 mg Lisinopril (Zestril) 5 mg PO DAILY [facility] Last Admin: 05/05/18 10:42 Dose: 5 mg Lorazepam (Ativan) 1 mg IVP Q6H PRN; Protocol PRN Reason: Anxiety Last Admin: 05/04/18 23:50 Dose: 1 mg Methylprednisolone (Solu-Medrol) 40 mg IVP Q12 [facility] Last Admin: 05/05/18 21:15 Dose: 40 mg Montelukast Sodium (Singulair) 10 mg PO DAILY [facility] Last Admin: 05/05/18 10:42 Dose: 10 mg Multivitamins/Minerals (Therapeutic-M Tab) 1 tab PO 0800 [facility] Last Admin: 05/05/18 10:43 Dose: 1 tab Nicotine (Nicoderm Cq) 1 patch TD DAILY [facility] Last Admin: 05/05/18 10:43 Dose: 1 patch Thiamine HCl (Vitamin B1 Tab) 100 mg PO DAILY [facility] Last Admin: 05/05/18 10:41 Dose: 100 mg - Labs Labs: 05/05/18 05:30 05/05/18 05:30 PT 11.3 SECONDS (9.4-12.5) 05/04/18 12:15 INR 0.98 05/04/18 12:15 APTT 23.2 Seconds (25.1-36.5) L 05/04/18 12:15 - Constitutional Appears: Non-toxic, No Acute Distress - Head Exam Head Exam: NORMAL INSPECTION, NORMOCEPHALIC - Eye Exam Eye Exam: Normal appearance - ENT Exam ENT Exam: Mucous Membranes Dry, Mucous Membranes Moist - Respiratory Exam Respiratory Exam: Decreased Breath Sounds, Clear to Ausculation Bilateral, NORMAL BREATHING PATTERN - Cardiovascular Exam Cardiovascular Exam: REGULAR RHYTHM, +S1, +S2 - GI/Abdominal Exam GI & Abdominal Exam: Soft, Normal Bowel Sounds - Extremities Exam Extremities Exam: Full ROM, Normal Capillary Refill - Neurological Exam Neurological Exam: Alert, Awake, Oriented x3 - Psychiatric Exam Psychiatric exam: Normal Affect, Normal Mood - Skin Skin Exam: Diaphoretic, Dry, Normal Color, Warm Assessment and Plan - Assessment and Plan (Free Text) Assessment: A 63 year old male who came in to the ER due to vague mid chest pain radiating to abdomen and arms.He also complaints of non productive cough and shortness of breath. History of coronary artery disease, status post CABG (2005) history of multiple stents in the past, history of alcohol abuse,anxiety, depression, colitis, diverticulitis, GERD, anemia,arthritis,gout, degenerative joint disease.history of multiple admissions for chest pain,history of carotid endarterectomy, COPD,TIA,cholecystectomy. Current tobacco abuse (2PPD) and substance abuse. Consult was called to evaluate chest pain.He was just recently discharged from [facility]. (03/2018).He lives at [facility]. Atypical chest pain, rule out acute coronary syndrome. Troponin negative x 2 (0.02/0.01). EKG- NSR, no ischemia. Urine positive for opiates, exacerbation of COPD. Review of previous cardiac work up at [facility]: 04/06/18- Cardiac cath and PTCA [place] 3 vessel disease Patent BALLARD to LAD Patent SVG to ramus but at anastomotoc site 95% stenosis Patent SVG to OM1 Patent SVG to RCA Preserved LV function EF-55% Successful PTCA with APURVA of SVG to Ramus 04/04/18-ECHO done- LV size normal LVEF -normal Ventricular septum is aneurysmal Plan: Feels okay today, needed a letter to be excuse for jury duty Heart rate and blood pressure controlled Cardiac status stable On ASA 81 mg daily,Lipitor 40 mg daily,Coreg 75 mg daily,Plavix 75 mg daily, Lisinopril 5 mg daily,Solumedrol 40 mg q 12 hours,Nicoderm patch daily Continue nebulizer treatment Continue low dose steroids Continue current treatment ID & GI on consult, Continue antibiotics per ID. Chart reviewed Smoking cessation Off telemetry Will follow up Plan and treatment discussed with Dr. Verdin
--- NOTE | 2018-05-06 07:09 | CP.PCM.PN ---
<Chris Pérez - Last Filed: 05/06/18 07:12> Subjective - Date & Time of Evaluation Date of Evaluation: 05/06/18 Time of Evaluation: 07:07 - Subjective Subjective: Rosey Pérez PGY 2 - GI Progress Note Objective - Vital Signs/Intake and Output Vital Signs (last 24 hours): Temp Pulse Resp BP Pulse Ox 98 F 61 20 118/69 99 05/06/18 00:01 05/06/18 00:01 05/06/18 00:01 05/06/18 00:01 05/06/18 00:01 Intake and Output: 05/06/18 05/06/18 06:59 18:59 Intake Total 1300 Output Total 1000 Balance 300 - Medications Medications: Current Medications Albuterol/Ipratropium (Duoneb 3 Mg/0.5 Mg (3 Ml) Ud) 3 ml IH Q2H PRN PRN Reason: Shortness of Breath Albuterol/Ipratropium (Duoneb 3 Mg/0.5 Mg (3 Ml) Ud) 3 ml IH [id number] [facility] Last Admin: 05/06/18 06:41 Dose: 3 ml Aspirin (Ecotrin) 81 mg PO DAILY [facility] Last Admin: 05/05/18 10:42 Dose: 81 mg Atorvastatin Calcium (Lipitor) 40 mg PO DIN [facility] Last Admin: 05/05/18 17:14 Dose: 40 mg Budesonide (Pulmicort Respules) 0.5 mg IH [id number] [facility] Last Admin: 05/05/18 19:40 Dose: 0.5 mg Carvedilol (Coreg) 12.5 mg PO BID [facility] Last Admin: 05/05/18 17:14 Dose: 12.5 mg Clopidogrel Bisulfate (Plavix) 75 mg PO DAILY [facility] Last Admin: 05/05/18 10:42 Dose: 75 mg Famotidine (Pepcid) 40 mg PO HS [facility] Last Admin: 05/05/18 21:15 Dose: 40 mg Folic Acid (Folic Acid) 1 mg PO DAILY [facility] Last Admin: 05/05/18 10:42 Dose: 1 mg Heparin Sodium (Porcine) (Heparin) 5,000 units SC Q8 [facility]; Protocol Last Admin: 05/06/18 06:14 Dose: 5,000 units Levofloxacin/Dextrose (Levaquin 500mg) 500 mg in 100 mls @ 100 mls/hr IVPB DAILY [facility]; Protocol Last Admin: 05/05/18 10:43 Dose: 100 mls/hr Sodium Chloride (Sodium Chloride 0.9%) 1,000 mls @ 100 mls/hr IV .Q10H [facility] Last Admin: 05/06/18 06:30 Dose: 100 mls/hr Ceftriaxone Sodium (Rocephin 1 Gram Ivpb) 1 gm in 100 mls @ 100 mls/hr IVPB DAILY [facility]; Protocol Stop: 05/13/18 19:01 Last Admin: 05/05/18 20:00 Dose: 100 mls/hr Ibuprofen (Motrin Tab) 600 mg PO Q6H PRN PRN Reason: Pain, Mild (1-3) Last Admin: 05/06/18 06:58 Dose: 600 mg Lisinopril (Zestril) 5 mg PO DAILY [facility] Last Admin: 05/05/18 10:42 Dose: 5 mg Lorazepam (Ativan) 1 mg IVP Q6H PRN; Protocol PRN Reason: Anxiety Last Admin: 05/04/18 23:50 Dose: 1 mg Methylprednisolone (Solu-Medrol) 40 mg IVP Q12 [facility] Last Admin: 05/05/18 21:15 Dose: 40 mg Montelukast Sodium (Singulair) 10 mg PO DAILY [facility] Last Admin: 05/05/18 10:42 Dose: 10 mg Multivitamins/Minerals (Therapeutic-M Tab) 1 tab PO 0800 [facility] Last Admin: 05/05/18 10:43 Dose: 1 tab Nicotine (Nicoderm Cq) 1 patch TD DAILY [facility] Last Admin: 05/05/18 10:43 Dose: 1 patch Thiamine HCl (Vitamin B1 Tab) 100 mg PO DAILY [facility] Last Admin: 05/05/18 10:41 Dose: 100 mg - Labs Labs: 05/05/18 05:30 05/05/18 05:30 PT 11.3 SECONDS (9.4-12.5) 05/04/18 12:15 INR 0.98 05/04/18 12:15 APTT 23.2 Seconds (25.1-36.5) L 05/04/18 12:15 - Constitutional Appears: No Acute Distress, Older Than Stated Age - Head Exam Head Exam: ATRAUMATIC, NORMOCEPHALIC - Eye Exam Eye Exam: EOMI, PERRL - Neck Exam Neck Exam: Full ROM - Respiratory Exam Respiratory Exam: NORMAL BREATHING PATTERN - GI/Abdominal Exam GI & Abdominal Exam: Soft, Normal Bowel Sounds. absent: Firm, Rigid, Tenderness - Extremities Exam Extremities Exam: absent: Pedal Edema Additional comments: varicose veins b/l - Neurological Exam Neurological Exam: Alert, Awake, Normal Gait, Oriented x3 Neuro motor strength exam: Left Upper Extremity: 5, Right Upper Extremity: 5, Left Lower Extremity: 5, Right Lower Extremity: 5 - Psychiatric Exam Psychiatric exam: Normal Mood - Skin Skin Exam: Dry, Warm Assessment and Plan - Assessment and Plan (Free Text) Assessment: 63 year old male with past medical history of HTN, COPD, TIA, CAD s/p stent, CABG, hx of ETOH abuse, frequent admissions for chest discomfort who presented to [place] ED complaining of cough and shortness of breath. Patient with history of MRCP with CBD dilation and ?abnormal sigmoidal stricture. Patient currently on PPI therapy and repeat MRCP ordered for evaluation. Plan: Transaminitis ?GERD Hx of abnormal MRCP Atypical chest pain on presentation HTN COPD CAD s/p stents s/p CABG ETOH Abuse - MRCP from 06/2017 indicating cholecystectomy with CBD dilation and possible stricture - Repeat MRCP for evaluation of sigmoidal stricture, follow up report - Continue PPI - No indications for emergent endoscopy at this time - Further recommendations per Dr. Weaver <Jyoti Weaver V - Last Filed: 05/06/18 20:56> Objective - Vital Signs/Intake and Output Vital Signs (last 24 hours): Temp Pulse Resp BP Pulse Ox 98.6 F 96 H 17 139/70 100 05/06/18 13:47 05/06/18 13:47 05/06/18 13:47 05/06/18 13:47 05/06/18 09:00 - Labs Labs: 05/06/18 06:30 05/06/18 06:30 PT 11.3 SECONDS (9.4-12.5) 05/04/18 12:15 INR 0.98 05/04/18 12:15 APTT 23.2 Seconds (25.1-36.5) L 05/04/18 12:15 Attending/Attestation - Attestation I have personally seen and examined this patient.: Yes I have fully participated in the care of the patient.: Yes I have reviewed all pertinent clinical information, including history, physical exam and plan: Yes Notes (Text): This is an addendum to GI followup report dictated by the Academic Guidance Specialist. The patient was seen and evaluated earlier. Medical records, lab studies, imagings were reviewed. Last 24 hours events reviewed. Agreed with the above treatment plan as outlined in Academic Guidance Specialist 's notes with the addition of the following MRCP could not be done in view of his recent PCI drug-eluding stent Continue PPI Patient would benefit from elective EGD Discussed with hospitalist Dr. Ramirez Discussed with the patient to followup with a primary doctor and GI for outpatient EGD and MRI Patient fully understood Discharge summary was noted Would request the medical team to notify regarding amended followup recommendations as the patient may not be able to be seen in my office for сергей del real as a nonparticipating provider 05/06/18 20:54
[2018-05-06 07:15] LABS: GRAN # 6.28 (1.4-6.5); GRAN % 83.4 % (50.0-68.0); HEMOGLOBIN 11.8 g/dL (14.0-18.0); LYMPH # 0.8 (1.2-3.4); LYMPH % 10.1 % (22.0-35.0); MEAN CELL VOLUME 96.4 fl (80.0-105.0); MEAN CORPUSCULAR HEMOGLOBIN 32.4 pg (25.0-35.0); MEAN CORPUSCULAR HGB CONC 33.6 g/dl (31.0-37.0); MEAN PLATELET VOLUME 8.9 fl (7.0-11.0); MONO # 0.5 (0.1-0.6); MONO % 6.5 % (1.0-6.0); RBC 3.64 10^6/uL (3.5-6.1); RED CELL DISTRIBUTION WIDTH 14.9 % (11.5-14.5); WHITE BLOOD COUNT 7.5 10^3/ul (4.5-11.0)
[2018-05-06] MEDS ORDERED: MethylPREDNISolone 40 mg Vial IVP SCH (07:29)
[2018-05-06 07:40] LABS: ALB/GLOB RATIO 1.4 (1.1-1.8); ALBUMIN 3.7 g/dL (3.0-4.8); ALT/SGPT 165 U/L (7-56); AST/SGOT 50 U/L (17-59); BLOOD UREA NITROGEN 27 mg/dL (7-21); CALCIUM 9.5 mg/dL (8.4-10.5); GFR NON-AFRICAN AMERICAN > 60
[2018-05-06] MEDS: Multivitamin With Minerals Tab PO SCH ×2 (07:57→09:41)
[2018-05-06] MEDS: cefTRIAXone 1 gm 1 GM/100 ML BAG IVPB SCH (09:33)
--- NOTE | 2018-05-06 10:38 | PN ---
DATE: 05/06/2018 SUBJECTIVE: The patient is in bed, in no acute distress, nontoxic. PHYSICAL EXAMINATION: VITAL SIGNS: On exam, temperature is 98, blood pressure is 119/60, respiratory rate of 18. HEENT: Examination of HEENT is unremarkable. NECK: Supple. LUNGS: Have decreased breath sounds. HEART: Normal S1, S2. ABDOMEN: Soft, nontender. LABORATORY DATA: Laboratory examination reveals the patient's white count of 7.5, hemoglobin of 11. Chemistries are noted. Procalcitonin is negative. Urinalysis is noted. Toxicology is reviewed. Serology is negative. Microbiology is pending. Chest x-ray is reported to be negative. ASSESSMENT AND PLAN: A 63-year-old male with end-stage chronic obstructive pulmonary disease, history of healthcare-associated pneumonia, admitted with diabetes and seizures, alcohol abuse, migraine, transient ischemic attack, peripheral neuropathy, kidney stones and anemia. Admitted with a chest pain and leukocytosis, which is resolved. Negative chest x-ray, negative urinalysis. Currently, on IV Levaquin. We will check on the blood cultures, urine cultures and the patient is also scheduled for MRCP by Gastroenterology. If MRCP is negative and blood and urine cultures are negative, may switch to p.o. Levaquin. We will follow with you. Isaak Carbajal MD
[2018-05-06] MEDS: levoFLOXacin 500 mg in D5W 500 MG/100 ML BAG IVPB SCH (10:55)
[2018-05-06 11:27] VITALS: O2SAT 100
[2018-05-06 12:20] LABS: HEPATITIS B SURFACE AG Negative (NEGATIVE)
[2018-05-06 12:26] LABS: HEPATITIS A IGM NEGATIVE (NEGATIVE); HEPATITIS B CORE AB NEGATIVE (NEGATIVE)
[2018-05-06 12:38] LABS: HEPATITIS C ANTIBODY NEGATIVE (NEGATIVE)
[2018-05-06 13:48] VITALS: BP 139/70; PULSE 96; RESP 17; TEMP 98.6
--- NOTE | 2018-05-06 15:53 | CP.PCM.DIS ---
<Robert Brower - Last Filed: 05/06/18 21:14> Provider - Provider Date of Admission: 05/04/18 20:04 Attending physician: Capo Ramirez MD Primary care physician: Dr. Damon Consults: ID: Dr. Paris GI: Dr. Weaver Cardio: Dr. Verdin Time Spent in preparation of Discharge (in minutes): 45 Hospital Course - Lab Results Lab Results: Most Recent Lab Values WBC 7.5 10^3/ul (4.5-11.0) D 05/06/18 06:30 RBC 3.64 10^6/uL (3.5-6.1) 05/06/18 06:30 Hgb 11.8 g/dL (14.0-18.0) L 05/06/18 06:30 Hct 35.1 % (42.0-52.0) L 05/06/18 06:30 MCV 96.4 fl (80.0-105.0) 05/06/18 06:30 MCH 32.4 pg (25.0-35.0) 05/06/18 06:30 MCHC 33.6 g/dl (31.0-37.0) 05/06/18 06:30 RDW 14.9 % (11.5-14.5) H 05/06/18 06:30 Plt Count 219 10^3/uL (120.0-450.0) 05/06/18 06:30 MPV 8.9 fl (7.0-11.0) 05/06/18 06:30 Gran % 83.4 % (50.0-68.0) H 05/06/18 06:30 Lymph % (Auto) 10.1 % (22.0-35.0) L 05/06/18 06:30 [place] % (Auto) 6.5 % (1.0-6.0) H 05/06/18 06:30 Eos % (Auto) 0.0 % (1.5-5.0) L 05/06/18 06:30 Baso % (Auto) 0.0 % (0.0-3.0) 05/06/18 06:30 Gran # 6.28 (1.4-6.5) 05/06/18 06:30 Lymph # (Auto) 0.8 (1.2-3.4) L 05/06/18 06:30 [place] # (Auto) 0.5 (0.1-0.6) 05/06/18 06:30 Eos # (Auto) 0.0 (0.0-0.7) 05/06/18 06:30 Baso # (Auto) 0.00 K/mm3 (0.0-2.0) 05/06/18 06:30 Neutrophils % (Manual) 90 % (50.0-70.0) H 05/05/18 05:30 Band Neutrophils % 1 % (0-2) 05/05/18 05:30 Lymphocytes % (Manual) 6 % (22.0-35.0) L 05/05/18 05:30 Monocytes % (Manual) 3 % (1.0-6.0) 05/05/18 05:30 Platelet Evaluation Normal (NORMAL) 05/05/18 05:30 PT 11.3 SECONDS (9.4-12.5) 05/04/18 12:15 INR 0.98 05/04/18 12:15 APTT 23.2 Seconds (25.1-36.5) L 05/04/18 12:15 pCO2 30 mm/Hg (35-45) L 05/04/18 21:05 pO2 87.0 mm/Hg (80-100) 05/04/18 21:05 HCO3 23.9 mmol/L (21-28) 05/04/18 21:05 ABG pH 7.51 (7.35-7.45) H 05/04/18 21:05 ABG Total CO2 24.8 mmol.L (22-28) 05/04/18 21:05 ABG O2 Saturation 99.0 % (95-98) H 05/04/18 21:05 ABG Base Excess 1.7 mmol/L (-2.0-3.0) 05/04/18 21:05 ABG Potassium 3.8 mmol/L (3.6-5.2) 05/04/18 21:05 Sodium 132.0 mmol/L (132-148) 05/04/18 21:05 Chloride 103.0 mmol/L (98-107) 05/04/18 21:05 Glucose 126 mg/dl (75-110) H 05/04/18 21:05 Lactate 1.8 mmol/L (0.7-2.1) 05/04/18 21:05 FiO2 21.0 % 05/04/18 21:05 Sodium 135 mmol/L (132-148) 05/06/18 06:30 Potassium 5.2 mmol/L (3.6-5.0) H 05/06/18 06:30 Chloride 101 mmol/L (98-107) 05/06/18 06:30 Carbon Dioxide 27 mmol/L (21-33) 05/06/18 06:30 Anion Gap 12 (10-20) 05/06/18 06:30 BUN 27 mg/dL (7-21) H 05/06/18 06:30 Creatinine 0.7 mg/dl (0.8-1.5) L 05/06/18 06:30 Est GFR ( Amer) > 60 05/06/18 06:30 Est GFR (Non-Af Amer) > 60 05/06/18 06:30 Random Glucose 107 mg/dL (70-110) 05/06/18 06:30 Calcium 9.5 mg/dL (8.4-10.5) 05/06/18 06:30 Phosphorus 3.8 mg/dL (2.5-4.5) 05/06/18 06:30 Magnesium 2.4 mg/dL (1.7-2.2) H 05/06/18 06:30 Total Bilirubin 0.4 mg/dL (0.2-1.3) 05/06/18 06:30 AST 50 U/L (17-59) 05/06/18 06:30 ALT 165 U/L (7-56) H 05/06/18 06:30 Alkaline Phosphatase 84 U/L (38-126) 05/06/18 06:30 Lactate Dehydrogenase 692 U/L (333-699) 05/05/18 05:30 Total Creatine Kinase 39 U/L (35-230) 05/05/18 05:30 Troponin I < 0.01 ng/mL 05/05/18 05:30 NT-Pro-B Natriuret Pep 455 pg/mL (0-450) H 05/04/18 21:00 Total Protein 6.3 g/dL (5.8-8.3) 05/06/18 06:30 Albumin 3.7 g/dL (3.0-4.8) 05/06/18 06:30 Globulin 2.6 gm/dL 05/06/18 06:30 Albumin/Globulin Ratio 1.4 (1.1-1.8) 05/06/18 06:30 Procalcitonin 0.12 NG/ML (0.19-0.49) L 05/04/18 20:55 Arterial Blood Potassium 3.8 mmol/L (3.6-5.2) 05/04/18 21:05 Urine Color Yellow (YELLOW) 05/04/18 20:41 Urine Appearance Clear (CLEAR) 05/04/18 20:41 Urine pH 7.5 (4.7-8.0) 05/04/18 20:41 Ur Specific [place] 1.010 (1.005-1.035) 05/04/18 20:41 Urine Protein Negative mg/dL (<30 mg/dL) 05/04/18 20:41 Urine Glucose (UA) Negative mg/dL (NEGATIVE) 05/04/18 20:41 Urine Ketones Negative mg/dL (NEGATIVE) 05/04/18 20:41 Urine Blood Negative (NEGATIVE) 05/04/18 20:41 Urine Nitrate Negative (NEGATIVE) 05/04/18 20:41 Urine Bilirubin Negative (NEGATIVE) 05/04/18 20:41 Urine Urobilinogen 0.2 E.U./dL (<1 E.U./dL) 05/04/18 20:41 Ur Leukocyte Esterase Negative Jenifer/uL (NEGATIVE) 05/04/18 20:41 Urine Opiates Screen Positive (NEGATIVE) H 05/04/18 20:41 Urine Methadone Screen Negative (NEGATIVE) 05/04/18 20:41 Ur Barbiturates Screen Negative (NEGATIVE) 05/04/18 20:41 Ur Phencyclidine Scrn Negative (NEGATIVE) 05/04/18 20:41 Ur Amphetamines Screen Negative (NEGATIVE) 05/04/18 20:41 U Benzodiazepines Scrn Negative (NEGATIVE) 05/04/18 20:41 U Oth Cocaine Metabols Negative (NEGATIVE) 05/04/18 20:41 U Cannabinoids Screen Negative (NEGATIVE) 05/04/18 20:41 Alcohol, Quantitative < 10 mg/dL (0-10) 05/04/18 12:15 Hepatitis A IgM Ab Negative (NEGATIVE) 05/06/18 06:30 Hep Bs Antigen Negative (NEGATIVE) 05/06/18 06:30 Hep B Core IgM Ab Negative (NEGATIVE) 05/06/18 06:30 Hepatitis C Antibody Negative (NEGATIVE) 05/06/18 06:30 Influenza Typ A,B (EIA) Negative for flu a/b (NEGATIVE) 05/04/18 20:41 - Hospital Course Hospital Course: Upon admission: Mr. Alexandra is a 63 year old male with past medical history of HTN, COPD, TIA, CAD with stents, CABG, ETOH abuse who presents to the emergency department for evaluation and treatment of cough and shortness of breath which began today while at rest. States the pain originated across the chest and radiates down into abdomen and also into L jaw. Pain is characterized as a crampy sensation and was associated with sweating and nausea and some chest pain. Rated an 8/10. Also admits associated nonproductive cough, headache, dizziness with some relief after taking nitro. Denies fever, chills, visual/auditory complaints, abdominal pain, vomiting, diarrhea, constipation, recent travel. Patient was recently discharged from hospital a few days prior for COPD, and sent home on steroids and recommendation to follow up with GI. Hospital Course: Patient was admitted for COPD exacerbation secondary to medication noncompliance and tobacco abuse. CXR was negative for active disease. ABG initially revealed uncompensated respiratory alkalosis with lactate of 1.8. Patient was started on Duonebs q4 scheduled and q2 prn, Solumedrol, Levaquin. Home symbicort and singulair were continued. EKG in ED showed NSR with no St-T wave changes at HR of 85bpm. Troponins were negatived x2 and BNP was 455. Aspirin, plavix, statin, and ACEi were continued. Cardiology, GI & ID were consulted. Cardio noted no signs of acute WA, no evidence of acute unstable angina, or ACS. Likely COPD exacerbation. Hyponatremia was treated with banana bag. Ativan 1mg q6 prn was ordered for history of alcohol abuse and possible withdrawals. Nicotine patch was ordered prn and patient was encouraged cessation of tobacco use. Hypertension was medically managed. GI was counseled for history of GERD. Upon Discharge: Patient was awake, alert, and oriented x3. Patient is medically stable. Shortness of breath had improved since admission. Steroids have been decreased and patient will be discharged on 5 days of Levaquin and PO prednisone. Patient was educated on alcohol and smoking cessation. Patient is encouraged to follow up with GI outpatient for MRCP & Endoscopic workup. Pt ed ucated multiple times that he needs to follow up with PMD as well as ticket manager, however pt was uninterested and left immediately without appreciating recommendations. - Date & Time of H&P Date of H&P: 05/04/18 Time of H&P: 20:54 Discharge Exam - Head Exam Head Exam: ATRAUMATIC, NORMOCEPHALIC - Eye Exam Eye Exam: EOMI, Normal appearance - ENT Exam ENT Exam: Mucous Membranes Moist, Normal Exam - Neck Exam Neck exam: Normal Inspection - Respiratory Exam Respiratory Exam: NORMAL BREATHING PATTERN. absent: Accessory Muscle Use, Rales, Rhonchi - Cardiovascular Exam Cardiovascular Exam: REGULAR RHYTHM, +S1, +S2 - GI/Abdominal Exam GI & Abdominal Exam: Normal Bowel Sounds - Back Exam Back exam: NORMAL INSPECTION - Neurological Exam Neurological exam: Alert, CN II-XII Intact, Oriented x3 - Psychiatric Exam Psychiatric exam: Normal Affect, Normal Mood - Skin Skin Exam: Dry, Intact, Warm Discharge Plan - Discharge Medications Prescriptions: levoFLOXacin [Levaquin] 500 mg PO DAILY #5 tab predniSONE [Prednisone] 10 mg PO DAILY #5 tab - Follow Up Plan Condition: FAIR Disposition: HOME/ ROUTINE Instructions: Heart Healthy Diet, Quitting Smoking for Older Adults, Diabetes Diet , Exacerbation of COPD (DC) Additional Instructions: Please follow up with your primary care doctor, Dr. Damon, within 3-5 days Please follow up with your junior net developer within 3-5 days for post discharge follow up You have been prescribed two new medications: 1. Prednisone 10mg daily for five days only (steroid) 2. Levaquin 500mg daily for five days only (antibiotic) You were unable to get an MRCP during this admission due to your recent cardiac stent placement. You will need to have this done as an outpatient in 2-3 weeks, as you need to have at least 6 weeks between your cardiac stent placement and an MRCP. Please schedule this with either your ticket manager or one of your choice. If you do not have a ticket manager, please contact the ticket manager that saw you during this admission (contact information provided in this paperwork) or discuss with your primary care doctor for a referral. If your symptoms return, please seek emergency medical attention immediately Referrals: Flor Verdin MD [Staff Provider] - Jyoti Weaver MD [Medical Doctor] - Paul Paris MD [Staff Provider] - <Capo Ramirez - Last Filed: 05/07/18 08:57> Provider - Provider Date of Admission: 05/04/18 20:04 Attending physician: Capo Ramirez MD Hospital Course - Lab Results Lab Results: Micro Results 05/05/18 20:45 Blood Blood Culture - Preliminary NO GROWTH AFTER 24 HOURS 05/05/18 20:45 Blood Blood Culture - Preliminary NO GROWTH AFTER 24 HOURS 05/04/18 20:41 Urine Urine Culture - Final <10,000 CFU/ML. MULTIPLE SPECIES. PROBABLE CONTAMINATION. Most Recent Lab Values WBC 7.5 10^3/ul (4.5-11.0) D 05/06/18 06:30 RBC 3.64 10^6/uL (3.5-6.1) 05/06/18 06:30 Hgb 11.8 g/dL (14.0-18.0) L 05/06/18 06:30 Hct 35.1 % (42.0-52.0) L 05/06/18 06:30 MCV 96.4 fl (80.0-105.0) 05/06/18 06:30 MCH 32.4 pg (25.0-35.0) 05/06/18 06:30 MCHC 33.6 g/dl (31.0-37.0) 05/06/18 06:30 RDW 14.9 % (11.5-14.5) H 05/06/18 06:30 Plt Count 219 10^3/uL (120.0-450.0) 05/06/18 06:30 MPV 8.9 fl (7.0-11.0) 05/06/18 06:30 Gran % 83.4 % (50.0-68.0) H 05/06/18 06:30 Lymph % (Auto) 10.1 % (22.0-35.0) L 05/06/18 06:30 [place] % (Auto) 6.5 % (1.0-6.0) H 05/06/18 06:30 Eos % (Auto) 0.0 % (1.5-5.0) L 05/06/18 06:30 Baso % (Auto) 0.0 % (0.0-3.0) 05/06/18 06:30 Gran # 6.28 (1.4-6.5) 05/06/18 06:30 Lymph # (Auto) 0.8 (1.2-3.4) L 05/06/18 06:30 [place] # (Auto) 0.5 (0.1-0.6) 05/06/18 06:30 Eos # (Auto) 0.0 (0.0-0.7) 05/06/18 06:30 Baso # (Auto) 0.00 K/mm3 (0.0-2.0) 05/06/18 06:30 Neutrophils % (Manual) 90 % (50.0-70.0) H 05/05/18 05:30 Band Neutrophils % 1 % (0-2) 05/05/18 05:30 Lymphocytes % (Manual) 6 % (22.0-35.0) L 05/05/18 05:30 Monocytes % (Manual) 3 % (1.0-6.0) 05/05/18 05:30 Platelet Evaluation Normal (NORMAL) 05/05/18 05:30 PT 11.3 SECONDS (9.4-12.5) 05/04/18 12:15 INR 0.98 05/04/18 12:15 APTT 23.2 Seconds (25.1-36.5) L 05/04/18 12:15 pCO2 30 mm/Hg (35-45) L 05/04/18 21:05 pO2 87.0 mm/Hg (80-100) 05/04/18 21:05 HCO3 23.9 mmol/L (21-28) 05/04/18 21:05 ABG pH 7.51 (7.35-7.45) H 05/04/18 21:05 ABG Total CO2 24.8 mmol.L (22-28) 05/04/18 21:05 ABG O2 Saturation 99.0 % (95-98) H 05/04/18 21:05 ABG Base Excess 1.7 mmol/L (-2.0-3.0) 05/04/18 21:05 ABG Potassium 3.8 mmol/L (3.6-5.2) 05/04/18 21:05 Sodium 132.0 mmol/L (132-148) 05/04/18 21:05 Chloride 103.0 mmol/L (98-107) 05/04/18 21:05 Glucose 126 mg/dl (75-110) H 05/04/18 21:05 Lactate 1.8 mmol/L (0.7-2.1) 05/04/18 21:05 FiO2 21.0 % 05/04/18 21:05 Sodium 135 mmol/L (132-148) 05/06/18 06:30 Potassium 5.2 mmol/L (3.6-5.0) H 05/06/18 06:30 Chloride 101 mmol/L (98-107) 05/06/18 06:30 Carbon Dioxide 27 mmol/L (21-33) 05/06/18 06:30 Anion Gap 12 (10-20) 05/06/18 06:30 BUN 27 mg/dL (7-21) H 05/06/18 06:30 Creatinine 0.7 mg/dl (0.8-1.5) L 05/06/18 06:30 Est GFR ( Amer) > 60 05/06/18 06:30 Est GFR (Non-Af Amer) > 60 05/06/18 06:30 Random Glucose 107 mg/dL (70-110) 05/06/18 06:30 Calcium 9.5 mg/dL (8.4-10.5) 05/06/18 06:30 Phosphorus 3.8 mg/dL (2.5-4.5) 05/06/18 06:30 Magnesium 2.4 mg/dL (1.7-2.2) H 05/06/18 06:30 Total Bilirubin 0.4 mg/dL (0.2-1.3) 05/06/18 06:30 AST 50 U/L (17-59) 05/06/18 06:30 ALT 165 U/L (7-56) H 05/06/18 06:30 Alkaline Phosphatase 84 U/L (38-126) 05/06/18 06:30 Lactate Dehydrogenase 692 U/L (333-699) 05/05/18 05:30 Total Creatine Kinase 39 U/L (35-230) 05/05/18 05:30 Troponin I < 0.01 ng/mL 05/05/18 05:30 NT-Pro-B Natriuret Pep 455 pg/mL (0-450) H 05/04/18 21:00 Total Protein 6.3 g/dL (5.8-8.3) 05/06/18 06:30 Albumin 3.7 g/dL (3.0-4.8) 05/06/18 06:30 Globulin 2.6 gm/dL 05/06/18 06:30 Albumin/Globulin Ratio 1.4 (1.1-1.8) 05/06/18 06:30 Procalcitonin 0.12 NG/ML (0.19-0.49) L 05/04/18 20:55 Arterial Blood Potassium 3.8 mmol/L (3.6-5.2) 05/04/18 21:05 Urine Color Yellow (YELLOW) 05/04/18 20:41 Urine Appearance Clear (CLEAR) 05/04/18 20:41 Urine pH 7.5 (4.7-8.0) 05/04/18 20:41 Ur Specific [place] 1.010 (1.005-1.035) 05/04/18 20:41 Urine Protein Negative mg/dL (<30 mg/dL) 05/04/18 20:41 Urine Glucose (UA) Negative mg/dL (NEGATIVE) 05/04/18 20:41 Urine Ketones Negative mg/dL (NEGATIVE) 05/04/18 20:41 Urine Blood Negative (NEGATIVE) 05/04/18 20:41 Urine Nitrate Negative (NEGATIVE) 05/04/18 20:41 Urine Bilirubin Negative (NEGATIVE) 05/04/18 20:41 Urine Urobilinogen 0.2 E.U./dL (<1 E.U./dL) 05/04/18 20:41 Ur Leukocyte Esterase Negative Jenifer/uL (NEGATIVE) 05/04/18 20:41 Urine Opiates Screen Positive (NEGATIVE) H 05/04/18 20:41 Urine Methadone Screen Negative (NEGATIVE) 05/04/18 20:41 Ur Barbiturates Screen Negative (NEGATIVE) 05/04/18 20:41 Ur Phencyclidine Scrn Negative (NEGATIVE) 05/04/18 20:41 Ur Amphetamines Screen Negative (NEGATIVE) 05/04/18 20:41 U Benzodiazepines Scrn Negative (NEGATIVE) 05/04/18 20:41 U Oth Cocaine Metabols Negative (NEGATIVE) 05/04/18 20:41 U Cannabinoids Screen Negative (NEGATIVE) 05/04/18 20:41 Alcohol, Quantitative < 10 mg/dL (0-10) 05/04/18 12:15 Hepatitis A IgM Ab Negative (NEGATIVE) 05/06/18 06:30 Hep Bs Antigen Negative (NEGATIVE) 05/06/18 06:30 Hep B Core IgM Ab Negative (NEGATIVE) 05/06/18 06:30 Hepatitis C Antibody Negative (NEGATIVE) 05/06/18 06:30 Influenza Typ A,B (EIA) Negative for flu a/b (NEGATIVE) 05/04/18 20:41 Attending/Attestation - Attestation I have personally seen and examined this patient.: Yes I have fully participated in the care of the patient.: Yes I have reviewed all pertinent clinical information, including history, physical exam and plan: Yes Notes (Text): 05/07/18 08:55 attending note; Patient seen and examined with resident. Patient is alert and awake. Denies any chest pain. Not in any acute distress. Tolerating diet well. Mild wheezing noted. Patient is ambulating in the hallway without oxygen. Patient is a 63 year old male with past medical history of HTN, COPD, TIA, CAD with stents, CABG, ETOH abuse, and active tobacco abuse admitted for evaluation and treatment of chest pain and SOB. Cardiac enzymes negative. Cardiology evaluation appreciated. CAD and recent stent placement. Continue aspirin, Plavix, Lipitor, Coreg , lisinopril and Imdur. COPD; treated with DuoNeb, IV Solu-Medrol. Patient continues to smoke despite of multiple admissions for COPD. Complete smoking cessation is strongly advised. abdominal discomfort. GI evaluation appreciated. MRCP recommended. Since patient has recent stent placement MRI was cancelled. Advised to get MRI as outpatient. Patient will also need endoscopy as outpatient. history of alcohol abuse; complete alcohol cessation is strongly advised. Patient is noncompliant with follow-up PMD and other consultants. Need for medication compliance and follow-up insisted in great detail. Prognosis is poor secondary to continue smoking, alcohol abuse and noncompliance. The diagnosis and follow-up plan discussed with PMD Dr. Damon in detail. Upon discharge the patient will follow-up with PMD Dr. Damon.
[2018-05-06] MEDS ORDERED: Pantoprazole 20 mg EC Tab PO SCH (16:00)
--- NOTE | 2018-05-07 08:09 | PN ---
DATE: 05/06/2018 REASON FOR CONSULTATION: Chest pain, atypical, so far no evidence of acute VT; history of coronary artery disease; history of stent recently. SUBJECTIVE: Patient denies any chest pain, shortness of breath, or any palpitation. OBJECTIVE: Not in apparent distress. This note is an addition to note dictated by Maria Del Rosario Gonsales. Patient had history of CABG in 2005, history of recent stent bare metal on 04/06/2018. Patient did a BALLARD to LAD, patent SVG to ramus intermedius, 95% stenosis. Patent SVG to OM1. Stent was done bare metal SVG to . Patient did a PTCA of with a bare metal stent dated 04/04/2018. Now admitted with a chest pain which was atypical and so far no evidence of acute VT. Possible acute bronchitis, treat aggressive medically. We will follow with you. No further cardiac workup is planned. No evidence of acute VT. This note is an addition to note dictated by nurse practitioner, Maria Del Rosario Gonsales. Flor Verdin MD
== END 2018-05-06 15:46 | disposition home or self-care (01) ==
LOC: ED 11:59 → ERH 20:04 → INTOOBSV 20:04 → 2RNO 22:04
PROVIDERS: ADMIT Hospitalist; ATTEND Internal Medicine
DX: J44.1 Chronic obstructive pulmonary disease with (acute) exacerbation (principal); E87.1 Hypo-osmolality and hyponatremia; F17.210 Nicotine dependence, cigarettes, uncomplicated; I25.10 Atherosclerotic heart disease of native coronary artery without angina pectoris; F10.10 Alcohol abuse, uncomplicated; K21.9 Gastro-esophageal reflux disease without esophagitis; I10 Essential (primary) hypertension; G62.9 Polyneuropathy, unspecified; I27.20 Pulmonary hypertension, unspecified; Z86.73 Personal history of transient ischemic attack (TIA), and cerebral infarction without residual deficits; Z91.14 Patient's other noncompliance with medication regimen; Z95.5 Presence of coronary angioplasty implant and graft; Z91.19 Patient's noncompliance with other medical treatment and regimen; Z95.1 Presence of aortocoronary bypass graft; Z79.82 Long term (current) use of aspirin; Z79.02 Long term (current) use of antithrombotics/antiplatelets; I25.2 Old myocardial infarction
CPT/HCPCS: 36415; 71045; 80053; 80074; 81003; 82550; 82803; 83615; 83735; 83880; 84100; 84145; 84484; 85025; 85610; 85730; 86738; 87040; 87086; 87804; 93005; 94640; 96374; 96375; 96376; 97116; 97161; 99285; G0378; G0480; G8978; G8979; G8980; J0696; J1644; J2060; J2270; J2920; J2930; J3411; J7030

== ENCOUNTER 2018-05-08 11:57 | Emergency (ER) | payer MEDICARE, MEDICAID ==
[2018-05-08 11:58] VITALS: BMI 22.8
[2018-05-08 12:13] VITALS: BP 99/76; PULSE 75; RESP 19; TEMP 98.9; O2SAT 99
[2018-05-08] MEDS ORDERED: Albuterol-Ipratrop 3 mg / 0.5 (3 ml) UD IH STA (12:13)
[2018-05-08 12:28] LABS: EOS # 0.1 (0.0-0.7); EOS % 0.6 % (1.5-5.0); GRAN # 5.56 (1.4-6.5); GRAN % 71.7 % (50.0-68.0); HEMOGLOBIN 11.9 g/dL (14.0-18.0); LYMPH # 1.6 (1.2-3.4); LYMPH % 20.1 % (22.0-35.0); MEAN CELL VOLUME 95.9 fl (80.0-105.0); MEAN CORPUSCULAR HEMOGLOBIN 32.8 pg (25.0-35.0); MEAN CORPUSCULAR HGB CONC 34.2 g/dl (31.0-37.0); MEAN PLATELET VOLUME 8.8 fl (7.0-11.0); MONO # 0.6 (0.1-0.6); MONO % 7.6 % (1.0-6.0); RBC 3.63 10^6/uL (3.5-6.1); RED CELL DISTRIBUTION WIDTH 14.8 % (11.5-14.5); WHITE BLOOD COUNT 7.8 10^3/ul (4.5-11.0)
[2018-05-08 12:39] LABS: INR 0.97; PROTHROMBIN TIME 11.2 SECONDS (9.4-12.5)
--- NOTE | 2018-05-08 12:42 | ED PDOC ---
Arrival/HPI - General Chief Complaint: Shortness Of Breath Time Seen by Provider: 05/08/18 11:58 Historian: Patient, EMS - History of Present Illness Narrative History of Present Illness (Text): 05/08/18 12:36 63 year old male, well known to the ER for similar complaints, with past medical history of HTN, COPD, TIA, CAD with stents, CABG, ETOH abuse who presents to the emergency department via EMS for evaluation and treatment of chest pain and shortness of breath which began this morning. As per EMS, pt was given 2 albuterol and 1 altovent in the field, and 324 aspirin PO. Upon arrival to the Emergency Department, pt states, "My lung hurts" and denies any alcohol use today. Pt denies any other somatic complaints. Patient denies any fever, chills, nausea, vomiting, diarrhea, abdominal pain, headache, dizziness, neck pain, back pain, or any other complaints. Primary Medical Doctor: Dr. Damon Time/Duration: 1-3 hours Symptom Onset: Gradual Symptom Course: Unchanged Quality: Aching Activities at Onset: Light Context: Home Past Medical History - Provider Review Nursing Documentation Reviewed: Yes - Past History Past History: No Previous - Infectious Disease Hx of Infectious Diseases: None - Tetanus Immunization Tetanus Immunization: Unknown - Reproductive Currently Lactating: No - Cardiac Hx Cardiac Disorders: Yes (CAD with stents, CABG, sinus bradycardia, cardiac arrythmias, angina) Hx Hypertension: Yes - Pulmonary Hx Chronic Obstructive Pulmonary Disease (COPD): Yes - Neurological Hx Neurological Disorder: Yes (peripheral neuropathy) Hx Dizziness: Yes Hx Migraine: Yes Hx Transient Ischemic Attacks (TIA): Yes Other/Comment: b/l legs burning numbnes, tingling - HEENT Hx HEENT Disorder: Yes (eyeglasses, r eye lazy eye) Hx Cataracts: Yes - Renal Hx Renal Disorder: Yes Hx Kidney Stones: Yes - Endocrine/Metabolic Hx Endocrine Disorders: No - Hematological/Oncological Hx Blood Disorders: Yes Hx Anemia: Yes - Integumentary Hx Dermatological Disorder: Yes Other/Comment: VARICOSE 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, 2 small bruises to rcw and lcw, larger bruise left shoulder, thick hard toenails - Musculoskeletal/Rheumatological Hx Musculoskeletal Disorders: Yes Hx Arthritis: Yes Hx Degenerative Joint Disease: Yes Hx Falls: Yes (past) Hx Fractures: Yes (RIB) Hx Gout: Yes Hx Unsteady Gait: Yes - Gastrointestinal Hx Gastrointestinal Disorders: Yes (COLITIS,DIVERTICULOSIS) Hx Gall Bladder Disease: Yes (gallstones) Hx Gastroesophageal Reflux: Yes - Genitourinary/Gynecological Hx Genitourinary Disorders: Yes Hx Urinary Tract Infection: Yes - Psychiatric Hx Psychophysiologic Disorder: Yes (USED TO DRINK ALCOHOL.H/O ETOH ABUSE. QUIT.) Hx Anxiety: Yes Hx Depression: Yes Hx Post Traumatic Stress Disorder: Yes Hx Substance Use: Yes (COCAINE,HEROIN,MARIJUANA USE. H/O.DENIES RECENT USE.) Other/Comment: quit smoking 1 week ago, [facility],etoh abuse quit drinking sober 1 yr 6 months relapsed 04/03/18 then stopped again, personality disorder, smokes pot occasionally but quit heroin cocaine in , criminal charges in past, lives at [facility] - Surgical History Hx Cardiac Catheterization: Yes (CORONARY STENT) Hx Cholecystectomy: Yes Hx Coronary Stent: Yes Hx Open Heart Surgery: Yes (triple bypass) - Anesthesia Hx Anesthesia: Yes Hx Anesthesia Reactions: No Hx Malignant Hyperthermia: No - Suicidal Assessment Feels Threatened In Home Enviroment: No Family/Social History - Physician Review Nursing Documentation Reviewed: Yes Family/Social History: Unknown Family HX Smoking Status: Current Some Days Smoker Hx Alcohol Use: Yes (RELAPSED 04-03-18) Hx Substance Use: Yes (COCAINE,HEROIN,MARIJUANA USE. H/O.DENIES RECENT USE.) Substance used: HEROIN, MARIJUANA Hx Substance Use Treatment: No Allergies/Home Meds Allergies/Adverse Reactions: Allergies shellfish derived Allergy (Verified 04/29/18 18:57) ANAPHYLAXIS Sulfa (Sulfonamide Antibiotics) Allergy (Verified 04/29/18 18:57) RASH Home Medications: Home Meds Medication Instructions Recorded Confirmed RX: Aspirin [Low Dose Aspirin EC] 81 mg PO DAILY 04/04/18 05/04/18 RX: Clopidogrel [Plavix] 75 mg PO DAILY 04/04/18 04/29/18 RX: Famotidine [Pepcid] 20 mg PO DAILY 04/04/18 04/29/18 RX: Montelukast [Singulair] 10 mg PO DAILY 04/04/18 05/04/18 RX: Nitroglycerin [Nitrostat] 0.4 mg SL PRN PRN 04/04/18 05/04/18 RX: Folic Acid 1 mg PO DAILY 05/04/18 05/04/18 RX: Isosorbide Mononitrate ER 30 mg PO DAILY 05/04/18 05/04/18 [Imdur ER] RX: Lisinopril [Zestril] 5 mg PO DAILY 05/04/18 05/04/18 Carvedilol 3.125 mg PO DAILY 05/05/18 05/05/18 Review of Systems - Physician Review All systems were reviewed & negative as marked: Yes - Review of Systems Constitutional: absent: Fevers Respiratory: SOB Cardiovascular: Chest Pain Gastrointestinal: absent: Abdominal Pain, Diarrhea, Nausea, Vomiting Musculoskeletal: absent: Back Pain, Neck Pain Skin: absent: Rash Neurological: absent: Headache, Dizziness Physical Exam Vital Signs Reviewed: Yes Vital Signs Temp Pulse Resp BP Pulse Ox 05/08/18 12:12 98.9 F 75 19 99/76 L 99 Temperature: Afebrile Blood Pressure: Normal Pulse: Regular Respiratory Rate: Normal Appearance: Positive for: Well-Appearing, Non-Toxic, Comfortable Pain Distress: None Mental Status: Positive for: Alert and Oriented X 3 - Systems Exam Head: Present: Atraumatic, Normocephalic Pupils: Present: PERRL Extroacular Muscles: Present: EOMI Conjunctiva: Present: Normal Neck: Present: Normal Range of Motion Respiratory/Chest: Present: Wheezes (bilaterally). No: Respiratory Distress, Accessory Muscle Use Cardiovascular: Present: Regular Rate and Rhythm, Normal S1, S2. No: Murmurs Abdomen: No: Tenderness, Distention, Peritoneal Signs Back: Present: Normal Inspection Upper Extremity: Present: Normal Inspection. No: Cyanosis, Edema Lower Extremity: Present: Normal Inspection. No: Edema Neurological: Present: GCS=15, CN II-XII Intact, Speech Normal Skin: Present: Warm, Dry, Normal Color. No: Rashes Psychiatric: Present: Alert, Oriented x 3, Normal Insight, Normal Concentration Medical Decision Making ED Course and Treatment: 05/08/18 12:20 Impression: 63 year old male who presents to the emergency department with chest pain and shortness of breath. Plan: -- labs -- EKG -- Chest X-ray -- Aspirin -- Albuterol -- SOLU- Medrol -- Urinalysis -- Reassess and disposition Prior Visits: Notes and results from previous visits were reviewed. Pt was seen in the Emergency Department for COPD exacerbation on 05/04/2018 and was admitted to the hospital for further evaluation. Progress Notes: 05/08/18 12:20 EKG: Ordered, reviewed, and independently interpreted the EKG. Rate : 81 BPM Rhythm : NSR Interpretation : Early repolarization. 05/08/18 13:15 Chest X-ray reviewed by radiologist, shows no active disease. 05/08/18 13:20 Upon reassessment pt has improved wheezing. Pt requested stronger pain med ications and became immediatgely became agitated during my reassessment. He pulled out his IV and eloped from the hospital. 05/08/18 17:41 - Lab Interpretations Lab Results: 05/08/18 12:20 Lab Results 05/08/18 12:20: WBC 7.8, RBC 3.63, Hgb 11.9 L, Hct 34.8 L, MCV 95.9, MCH 32.8, MCHC 34.2, RDW 14.8 H, Plt Count 216, MPV 8.8, Gran % 71.7 H, Lymph % (Auto) 20.1 L, [place] % (Auto) 7.6 H, Eos % (Auto) 0.6 L, Baso % (Auto) 0.0, Gran # 5.56, Lymph # (Auto) 1.6, [place] # (Auto) 0.6, Eos # (Auto) 0.1, Baso # (Auto) 0.00 - RAD Interpretation Radiology Orders: 05/08/18 12:11 CHEST PORTABLE [RAD] Stat Rack Loader: Radiologist - EKG Interpretation Interpreted by ED Physician: Yes Type: 12 lead EKG - Medication Orders Current Medication Orders: Discontinued Medications Albuterol/Ipratropium (Duoneb 3 Mg/0.5 Mg (3 Ml) Ud) 3 ml IH STAT STA Stop: 05/08/18 12:14 Last Admin: 05/08/18 12:28 Dose: 3 ml Methylprednisolone (Solu-Medrol) 125 mg IVP STAT STA Stop: 05/08/18 12:14 Last Admin: 05/08/18 12:29 Dose: 125 mg IVP Administration Document 05/08/18 12:29 OCS (Rec: 05/08/18 12:29 OCS [id number]) Charges for Administration # of IVP Administrations 1 - Scribe Statement The provider has reviewed the documentation as recorded by the Arina estrada with Mary. All medical record entries made by the Sarahibinga were at my direction and personally dictated by me. I have reviewed the chart and agree that the record accurately reflects my personal performance of the history, physical exam, medical decision making, and the department course for this patient. I have also personally directed, reviewed, and agree with the discharge instructions and disposition. Disposition/Present on Arrival - Present on Arrival Any Indicators Present on Arrival: No History of DVT/PE: No History of Uncontrolled Diabetes: No Urinary Catheter: No History of Decub. Ulcer: No History Surgical Site Infection Following: CABG - Mediastinitis - Disposition Have Diagnosis and Disposition been Completed?: Yes Diagnosis: COPD (chronic obstructive pulmonary disease) Disposition: LEFT W/O TREATMENT - ER ONLY Disposition Time: 01:00 Condition: UNKNOWN Forms: [employer] (Greenlandic)
[2018-05-08 12:52] LABS: B-TYPE NATRIURETIC PEPTIDE 507 pg/mL (0-450); TROPONIN I < 0.01 ng/mL
[2018-05-08 12:58] LABS: ALB/GLOB RATIO 1.3 (1.1-1.8); ALBUMIN 3.6 g/dL (3.0-4.8); ALT/SGPT 80 U/L (7-56); AST/SGOT 37 U/L (17-59); BLOOD UREA NITROGEN 24 mg/dL (7-21); CALCIUM 8.6 mg/dL (8.4-10.5); GFR NON-AFRICAN AMERICAN > 60
--- NOTE | 2018-05-08 13:09 | RAD ---
Date of service: 05/08/2018 HISTORY: sob COMPARISON: 05/04/2018 FINDINGS: LUNGS: No active pulmonary disease. PLEURA: No significant pleural effusion identified, no pneumothorax apparent. CARDIOVASCULAR: No atherosclerotic calcification present Normal. OSSEOUS STRUCTURES: Sternal wires VISUALIZED UPPER ABDOMEN: Normal. OTHER FINDINGS: None. IMPRESSION: No active disease.
--- NOTE | 2018-05-08 16:58 | CARD ---
APPROVED REPORT Date of service: 05/08/2018 EKG Measurement Heart [id number] [id number] <Conclusion> Normal sinus rhythm ST segment elevation in lateral leads, consider acute MT vs early repolarization Abnormal EKG.
== END 2018-05-08 13:19 | disposition left against medical advice (07) ==
LOC: ED 11:57
DX: J44.9 Chronic obstructive pulmonary disease, unspecified (principal); I10 Essential (primary) hypertension; Z86.73 Personal history of transient ischemic attack (TIA), and cerebral infarction without residual deficits
CPT/HCPCS: 71045; 80053; 82550; 83615; 83735; 83880; 84484; 85025; 85610; 85730; 93005; 96374; 99284; J2930

== ENCOUNTER 2018-06-17 15:43 | Inpatient (IN) | payer MEDICARE, MEDICAID ==
--- NOTE | 2018-06-17 16:41 | ED PDOC ---
Arrival/HPI - General Chief Complaint: Shortness Of Breath Time Seen by Provider: 06/17/18 16:10 Historian: Patient - History of Present Illness Narrative History of Present Illness (Text): 06/17/18 18:21 63 y/o male with PMH of COPD, Hyponatremia, CAD (s/p stents after [place] 03/2018), HTN, TIA, substance abuse who presents to the ED c/o SOB x 1 day. Symptoms began after lifting a heavy box at work. Associated intermittent chest tightness, lightheadedness, nausea, headache, generalized abdominal cramping. Tolerating PO and having BM per baseline. Taking all medications as prescribed. Denies drug/alcohol use, fevers, chills, sputum, chest pain, palpitations, diaphoresis, vision changes, confusion, neck pain, vomiting, urinary symptoms, or any other associated symptoms. Past Medical History - Provider Review Nursing Documentation Reviewed: Yes - Past History Past History: No Previous - Infectious Disease Hx of Infectious Diseases: None - Tetanus Immunization Tetanus Immunization: Unknown - Reproductive Currently Lactating: No - Cardiac Hx Cardiac Disorders: Yes (CAD with stents, CABG, sinus bradycardia, cardiac arrythmias, angina) Hx Hypertension: Yes - Pulmonary Hx Chronic Obstructive Pulmonary Disease (COPD): Yes - Neurological Hx Neurological Disorder: Yes (peripheral neuropathy) Hx Dizziness: Yes Hx Migraine: Yes Hx Transient Ischemic Attacks (TIA): Yes Other/Comment: b/l legs burning numbnes, tingling - HEENT Hx HEENT Disorder: Yes (eyeglasses, r eye lazy eye) Hx Cataracts: Yes - Renal Hx Renal Disorder: Yes Hx Kidney Stones: Yes - Endocrine/Metabolic Hx Endocrine Disorders: No - Hematological/Oncological Hx Blood Disorders: Yes Hx Anemia: Yes - Integumentary Hx Dermatological Disorder: Yes - Musculoskeletal/Rheumatological Hx Musculoskeletal Disorders: Yes Hx Arthritis: Yes Hx Degenerative Joint Disease: Yes Hx Falls: Yes (past) Hx Fractures: Yes (RIB) Hx Gout: Yes Hx Unsteady Gait: Yes - Gastrointestinal Hx Gastrointestinal Disorders: Yes (COLITIS,DIVERTICULOSIS) Hx Gall Bladder Disease: Yes (gallstones) Hx Gastroesophageal Reflux: Yes - Genitourinary/Gynecological Hx Genitourinary Disorders: Yes Hx Urinary Tract Infection: Yes - Psychiatric Hx Anxiety: Yes Hx Depression: Yes Hx Post Traumatic Stress Disorder: Yes Hx Substance Use: Yes (COCAINE,HEROIN,MARIJUANA USE. DENIES RECENT USE.) Other/Comment: quit smoking 1 week ago, [facility] abuse quit drinking sober 1 yr 6 months relapsed 04/03/18 then stopped again, personality disorder, smokes pot occasionally but quit heroin cocaine in , criminal charges in past, lives at [facility] - Surgical History Hx Cardiac Catheterization: Yes (CORONARY STENT) Hx Cholecystectomy: Yes Hx Coronary Stent: Yes Hx Open Heart Surgery: Yes (triple bypass) - Anesthesia Hx Anesthesia: Yes Hx Anesthesia Reactions: No Hx Malignant Hyperthermia: No - Suicidal Assessment Feels Threatened In Home Enviroment: No Family/Social History - Physician Review Nursing Documentation Reviewed: Yes Family/Social History: No Known Family HX Smoking Status: Current Some Days Smoker Hx Alcohol Use: Yes (RELAPSED 04-03-18) Hx Substance Use: Yes (COCAINE,HEROIN,MARIJUANA USE. H/O.DENIES RECENT USE.) Substance used: HEROIN, MARIJUANA Hx Substance Use Treatment: No Allergies/Home Meds Allergies/Adverse Reactions: Allergies shellfish derived Allergy (Verified 06/17/18 16:03) ANAPHYLAXIS Sulfa (Sulfonamide Antibiotics) Allergy (Verified 06/17/18 16:03) RASH Home Medications: Home Meds Medication Instructions Recorded Confirmed Aspirin [Low Dose Aspirin EC] 81 mg PO DAILY 04/04/18 06/17/18 Montelukast [Singulair] 10 mg PO DAILY 04/04/18 06/17/18 Folic Acid 1 mg PO DAILY 05/04/18 06/17/18 Isosorbide Mononitrate ER [Imdur 30 mg PO DAILY 05/04/18 06/17/18 ER] Carvedilol 3.125 mg PO DAILY 05/05/18 06/17/18 Albuterol HFA [Ventolin HFA 90 1 inh INH DAILY 06/17/18 06/17/18 mcg/actuation (8 g)] Fluticasone/Salmeterol 1 inh INH DAILY 06/17/18 06/17/18 [Fluticasone-Salmeterol 232-14] Omeprazole 40 mg PO DAILY 06/17/18 06/17/18 Review of Systems - Physician Review All systems were reviewed & negative as marked: Yes - Review of Systems Constitutional: Normal Eyes: Normal. absent: Vision Changes, Photophobia ENT: Normal Respiratory: SOB Cardiovascular: Chest Pain. absent: Palpitations, Calf Pain Gastrointestinal: Abdominal Pain. absent: Stool Changes, Nausea, Vomiting, Appetite Changes Genitourinary Male: Normal. absent: Dysuria, Frequency Musculoskeletal: Normal. absent: Back Pain, Neck Pain Skin: Normal. absent: Rash, Cellulitis Neurological: Headache, Dizziness. absent: Gait Changes, Speech Changes Endocrine: Normal Hemo/Lymphatic: Normal Psychiatric: Normal Physical Exam Vital Signs Reviewed: Yes Vital Signs Temp Pulse Resp BP Pulse Ox 06/17/18 16:30 18 97 06/17/18 16:00 97.6 F 69 17 84/52 L 95 Temperature: Afebrile Blood Pressure: Hypotensive Pulse: Regular Respiratory Rate: Normal Appearance: Positive for: Well-Appearing, Non-Toxic, Comfortable Pain Distress: None Mental Status: Positive for: Alert and Oriented X 3 - Systems Exam Head: Present: Atraumatic, Normocephalic Pupils: Present: PERRL Extroacular Muscles: Present: EOMI Conjunctiva: Present: Normal Ears: Present: Normal, NORMAL TM Mouth: Present: Moist Mucous Membranes Pharnyx: Present: Normal. No: ERYTHEMA, EXUDATE Nose (External): Present: Atraumatic Nose (Internal): Present: Normal Inspection Neck: Present: Normal Range of Motion Respiratory/Chest: Present: Wheezes (diffuse expiratory bilaterally). No: Respiratory Distress, Accessory Muscle Use Cardiovascular: Present: Regular Rate and Rhythm, Normal S1, S2. No: Murmurs Abdomen: Present: Tenderness (mild diffuse), Normal Bowel Sounds. No: Distention, Peritoneal Signs, Rebound, Guarding Back: Present: Normal Inspection. No: CVA Tenderness Upper Extremity: Present: Normal Inspection, Normal ROM, NORMAL PULSES, Neurovascularly Intact, Capillary Refill < 2s. No: Cyanosis, Edema Lower Extremity: Present: Normal Inspection, NORMAL PULSES, Normal ROM, Neurovascularly Intact, Capillary Refill < 2 s. No: Edema, Swelling Neurological: Present: GCS=15, CN II-XII Intact, Speech Normal, Motor Func Grossly Intact, Normal Sensory Function, Normal Cerebellar Funct, Gait Normal, Memory Normal Skin: Present: Warm, Dry, Normal Color. No: Rashes Lymphatic: No: Cervical Adenopathy Psychiatric: Present: Alert, Oriented x 3, Normal Insight, Normal Concentration, Normal Affect, Normal Mood Medical Decision Making ED Course and Treatment: Initial Plan: * CBC, CMP * Troponin * Dimer * BNP * EKG * CXR * IVF * Solumedrol * Duonebs Pt visibly short of breath on initial examination, able to speak in full sentences, no distress. Pt has known history of hypotension. CBC: wnl CMP: Na 123 Cl 91 Dimer: 206 BNP: 450 Troponin: <0.01 EKG: rate 68; NSR; normal intervals; no STEMI or other signs of acute ischemia CXR: no active disease Sodium found to be 123, IVF stopped after approx. 250cc. Pt reports decreased lightheadedness and SOB after solumedrol and duonebs. Lung exam unchanged, diffuse expiratory wheezing remains bilaterally. 18:[address] Ramirez who accepts patient for inpatient admission with diagnoses of hyponatremia and hypotension. Recommends normal saline at 100cc/hr. 18:15 Plan of care discussed with patient, who agrees with disposition and understands need for admission. Vital signs stable at this time. - Lab Interpretations Lab Results: 06/17/18 16:50 06/17/18 16:50 Lab Results 06/17/18 16:50: NT-Pro-B Natriuret Pep 450 06/17/18 16:50: Sodium 123 L, Potassium 4.9, Chloride 91 L, Carbon Dioxide 24, Anion Gap 13, BUN 17, Creatinine 0.6 L, Est GFR ( Amer) > 60, Est GFR (Non-Af Amer) > 60, Random Glucose 89, Calcium 9.0, Total Bilirubin 0.4, AST 26, ALT 18, Alkaline Phosphatase 52, Troponin I < 0.01, Total Protein 6.4, Albumin 3.7, Globulin 2.7, Albumin/Globulin Ratio 1.3, Lipase 272 06/17/18 16:50: PT 12.0, INR 1.05, APTT 32.3, D-Dimer, Quantitative 206 06/17/18 16:50: WBC 4.7, RBC 3.02 L, Hgb 10.0 L, Hct 28.3 L, MCV 93.7, MCH 33.1, MCHC 35.3, RDW 13.9, Plt Count 291, MPV 8.1, Gran % 43.6 L, Lymph % (Auto) 38.1 H, [place] % (Auto) 11.7 H, Eos % (Auto) 5.3 H, Baso % (Auto) 1.3, Gran # 2.06, Lymph # (Auto) 1.8, [place] # (Auto) 0.6, Eos # (Auto) 0.3, Baso # (Auto) 0.06 I have reviewed the lab results: Yes - RAD Interpretation Narrative RAD Interpretations (Text): CXR: no active disease Software Application Tester: Radiologist - EKG Interpretation EKG Interpretation (Text): 16:30 Rate 68; NSR; normal intervals; no STEMI or other signs of ischemia Interpreted by ED Physician: Yes (Raúl) Type: 12 lead EKG Disposition/Present on Arrival - Present on Arrival Any Indicators Present on Arrival: No History of DVT/PE: No History of Uncontrolled Diabetes: No Urinary Catheter: No History of Decub. Ulcer: No History Surgical Site Infection Following: CABG - Mediastinitis - Disposition Have Diagnosis and Disposition been Completed?: Yes Diagnosis: Hyponatremia, Hypotension Disposition: HOSPITALIZED Disposition Time: 17:30 Patient Problems: Current Active Problems Problem Status Onset Hypotension Acute Hyponatremia Acute COPD exacerbation Acute Condition: STABLE
[2018-06-17] MEDS ORDERED: Sodium Chloride 0.9% 1,000 ML IV STA (16:51)
[2018-06-17] MEDS: Albuterol-Ipratrop 3 mg / 0.5 (3 ml) UD IH SCH ×3 (17:00→17:40)
[2018-06-17 17:11] LABS: BASO # 0.06 K/mm3 (0.0-2.0); BASO % 1.3 % (0.0-3.0); EOS # 0.3 (0.0-0.7); EOS % 5.3 % (1.5-5.0); GRAN # 2.06 (1.4-6.5); GRAN % 43.6 % (50.0-68.0); LYMPH # 1.8 (1.2-3.4); LYMPH % 38.1 % (22.0-35.0); MEAN CELL VOLUME 93.7 fl (80.0-105.0); MEAN CORPUSCULAR HEMOGLOBIN 33.1 pg (25.0-35.0); MEAN CORPUSCULAR HGB CONC 35.3 g/dl (31.0-37.0); MEAN PLATELET VOLUME 8.1 fl (7.0-11.0); MONO # 0.6 (0.1-0.6); MONO % 11.7 % (1.0-6.0); RBC 3.02 10^6/uL (3.5-6.1); RED CELL DISTRIBUTION WIDTH 13.9 % (11.5-14.5); WHITE BLOOD COUNT 4.7 10^3/uL (4.5-11.0)
[2018-06-17 17:18] LABS: INR 1.05; PARTIAL THROMBOPLASTIN TIME 32.3 Seconds (25.1-36.5)
[2018-06-17 17:19] LABS: ALB/GLOB RATIO 1.3 (1.1-1.8); ALBUMIN 3.7 g/dL (3.0-4.8); ALT/SGPT 18 U/L (7-56); AST/SGOT 26 U/L (17-59); BLOOD UREA NITROGEN 17 mg/dL (7-21); GFR NON-AFRICAN AMERICAN > 60; LIPASE 272 U/L (23-300)
[2018-06-17 17:31] LABS: TROPONIN I < 0.01 ng/mL
--- NOTE | 2018-06-17 17:59 | RAD ---
Date of service: 06/17/2018 HISTORY: SOB, h/o COPD COMPARISON: 04/01/2018 and 10/18/2017. FINDINGS: LUNGS: No active pulmonary disease. PLEURA: No significant pleural effusion identified, no pneumothorax apparent. CARDIOVASCULAR: No atherosclerotic calcification present No radiographic findings to suggest acute or significant cardiovascular disease. Incidental Finding(s): Postoperative changes related to sternotomy. OSSEOUS STRUCTURES: No significant abnormalities. Hypertrophy of the right sternoclavicular joint is a stable finding. VISUALIZED UPPER ABDOMEN: Normal. OTHER FINDINGS: None. IMPRESSION: No active disease. No significant interval change compared to the prior examination(s).
[2018-06-17] MEDS ORDERED: Sodium Chloride 0.9% 1,000 ML IV SCH (18:15)
--- NOTE | 2018-06-17 19:07 | CARD ---
APPROVED REPORT Date of service: 06/17/2018 EKG Measurement Heart [id number] <Conclusion> Normal sinus rhythm Normal ECG
--- NOTE | 2018-06-17 19:58 | CP.PCM.HP ---
<Mata Lopez - Last Filed: 06/17/18 20:25> History of Present Illness - History of Present Illness History of Present Illness: Mata Lopez, PGY-1 History and Physical for Hospitalist Service CC: Cough and Shortness of breath HPI: Mr. Alexandra is a 63 year old male with past medical history of HTN, COPD, TIA, CAD with stents, CABG, ETOH abuse who presents for evaluation and treatment of chest tightness and shortness of breath which began today while lifting boxes. States the pain originated across the chest and radiates down into abdomen. Denies radiation into L jaw. Pain is characterized as a crampy sensation associated with nausea but denies diaphoresis. Rated an 8/10. Also admits associated nonproductive cough, headache, dizziness with some relief. Denies fever, chills, visual/auditory complaints, abdominal pain, vomiting, diarrhea, constipation, recent travel. 12 point ROS complete and negative except as indicated. PMHx: HTN, COPD, TIA, CAD with stents, CABG, EtOH abuse, and active tobacco abuse PSHx: Carotid enarterectomy, cholecystectomy Social Hx: hx of 2 ppd for 30 years, currently on patch, denies illicit drug use, admits to alcohol abuse. Lives in [facility] Medications: carvidilol, atorvastatin, asa, Plavix, meloxicam, ventolin, albuterol, benzonate, B12, folate, omeprazole Allergies: Shellfish derived substances, Sulfa Primary Medical Doctor: Dr. Damon Present on Admission - Present on Admission Any Indicators Present on Admission: No Past Patient History - Infectious Disease Hx of Infectious Diseases: None - Tetanus Immunizations Tetanus Immunization: Unknown - Past Medical History & Family History Past Medical History?: Yes - Past Social History Smoking Status: Current Some Days Smoker - CARDIAC Hx Cardiac Disorders: Yes (CAD with stents, CABG, sinus bradycardia, cardiac arrythmias, angina) Hx Hypertension: Yes - PULMONARY Hx Chronic Obstructive Pulmonary Disease (COPD): Yes - NEUROLOGICAL Hx Neurological Disorder: Yes (peripheral neuropathy) Hx Dizziness: Yes Hx Migraine: Yes Hx Transient Ischemic Attacks (TIA): Yes Other/Comment: b/l legs burning numbnes, tingling - HEENT Hx HEENT Problems: Yes (eyeglasses, r eye lazy eye) Hx Cataracts: Yes - RENAL Hx Chronic Kidney Disease: Yes Hx Kidney Stones: Yes - ENDOCRINE/METABOLIC Hx Endocrine Disorders: No - HEMATOLOGICAL/ONCOLOGICAL Hx Blood Disorders: Yes Hx Anemia: Yes - INTEGUMENTARY Hx Dermatological Problems: Yes Other/Comment: VARICOSE 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, 2 small bruises to rcw and lcw, larger bruise left shoulder, thick hard toenails - MUSCULOSKELETAL/RHEUMATOLOGICAL Hx Musculoskeletal Disorders: Yes Hx Arthritis: Yes Hx Degenerative Joint Disease: Yes Hx Falls: Yes (past) Hx Fractures: Yes (RIB) Hx Gout: Yes Hx Unsteady Gait: Yes - GASTROINTESTINAL Hx Gastrointestinal Disorders: Yes (COLITIS,DIVERTICULOSIS) Hx Gall Bladder Disease: Yes (gallstones) Hx Gastroesophageal Reflux: Yes - GENITOURINARY/GYNECOLOGICAL Hx Genitourinary Disorders: Yes Hx Urinary Tract Infection: Yes - PSYCHIATRIC Hx Psychophysiologic Disorder: Yes (USED TO DRINK ALCOHOL.H/O ETOH ABUSE. QUIT.) Hx Anxiety: Yes Hx Depression: Yes Hx Post Traumatic Stress Disorder: Yes Hx Substance Use: Yes (COCAINE,HEROIN,MARIJUANA USE. H/O.DENIES RECENT USE.) Other/Comment: quit smoking 1 week ago, [facility],etoh abuse quit drinking sober 1 yr 6 months relapsed 04/03/18 then stopped again, personality disorder, smokes pot occasionally but quit heroin cocaine in , criminal charges in past, lives at [facility] - SURGICAL HISTORY Hx Cardiac Catheterization: Yes (CORONARY STENT) Hx Cholecystectomy: Yes Hx Coronary Stent: Yes Hx Open Heart Surgery: Yes (triple bypass) - ANESTHESIA Hx Anesthesia: Yes Hx Anesthesia Reactions: No Hx Malignant Hyperthermia: No Meds Allergies/Adverse Reactions: Allergies Allergy/AdvReac Type Severity Reaction Status Date / Time shellfish derived Allergy ANAPHYLAXIS Verified 06/17/18 16:03 Sulfa (Sulfonamide Allergy RASH Verified 06/17/18 16:03 Antibiotics) Physical Exam - Additional Findings Additional findings: - Constitutional Appears: Well, Non-toxic, No Acute Distress - Head Exam Head Exam: ATRAUMATIC, NORMOCEPHALIC - Eye Exam Eye Exam: EOMI, Normal appearance Pupil Exam: PERRL - ENT Exam ENT Exam: Mucous Membranes Moist, Normal Exam - Neck Exam Neck exam: Positive for: Normal Inspection - Respiratory Exam Respiratory Exam: Chest Wall Tenderness, Wheezes (End-expiratory wheezing diffusely). absent: Accessory Muscle Use, Clear to Auscultation Bilateral, Prolonged Expiratory Phase - Cardiovascular Exam Cardiovascular Exam: REGULAR RHYTHM, RRR, +S1, +S2 - GI/Abdominal Exam GI & Abdominal Exam: Normal Bowel Sounds, Soft. absent: Distended, Guarding, Rebound, Tenderness - Back Exam Back exam: NORMAL INSPECTION. absent: CVA tenderness (L), CVA tenderness (R) - Neurological Exam Neurological exam: Alert, CN II-XII Intact, Oriented x3 - Skin Skin Exam: Dry, Intact, Echymosis on abdominal wall 2/2 from prevoius heparin injection sites, Warm Results - Vital Signs Recent Vital Signs: Last Vital Signs Temp 97.6 F 06/17/18 16:00 Pulse 63 06/17/18 17:40 Resp 18 06/17/18 17:40 BP 95/56 L 06/17/18 17:40 Pulse Ox 99 06/17/18 17:40 - Labs Result Diagrams: 06/17/18 16:50 06/17/18 16:50 Labs: Laboratory Results - last 24 hr 06/17/18 06/17/18 06/17/18 16:50 16:50 16:50 WBC 4.7 RBC 3.02 L Hgb 10.0 L Hct 28.3 L MCV 93.7 MCH 33.1 MCHC 35.3 RDW 13.9 Plt Count 291 MPV 8.1 Gran % 43.6 L Lymph % (Auto) 38.1 H [place] % (Auto) 11.7 H Eos % (Auto) 5.3 H Baso % (Auto) 1.3 Gran # 2.06 Lymph # (Auto) 1.8 [place] # (Auto) 0.6 Eos # (Auto) 0.3 Baso # (Auto) 0.06 PT 12.0 INR 1.05 APTT 32.3 D-Dimer, Quantitative 206 Sodium 123 L Potassium 4.9 Chloride 91 L Carbon Dioxide 24 Anion Gap 13 BUN 17 Creatinine 0.6 L Est GFR ( Amer) > 60 Est GFR (Non-Af Amer) > 60 Random Glucose 89 Calcium 9.0 Total Bilirubin 0.4 AST 26 ALT 18 Alkaline Phosphatase 52 Troponin I < 0.01 Total Protein 6.4 Albumin 3.7 Globulin 2.7 Albumin/Globulin Ratio 1.3 Lipase 272 Alcohol, Quantitative 06/17/18 18:40 WBC RBC Hgb Hct MCV MCH MCHC RDW Plt Count MPV Gran % Lymph % (Auto) [place] % (Auto) Eos % (Auto) Baso % (Auto) Gran # Lymph # (Auto) [place] # (Auto) Eos # (Auto) Baso # (Auto) PT INR APTT D-Dimer, Quantitative Sodium Potassium Chloride Carbon Dioxide Anion Gap BUN Creatinine Est GFR ( Amer) Est GFR (Non-Af Amer) Random Glucose Calcium Total Bilirubin AST ALT Alkaline Phosphatase Troponin I Total Protein Albumin Globulin Albumin/Globulin Ratio Lipase Alcohol, Quantitative < 10 Assessment & Plan - Assessment and Plan (Free Text) Assessment: Patient is a 63 year old male with past medical history of HTN, COPD, TIA, CAD with stents, CABG, ETOH abuse, and active tobacco abuse who admitted for ev aluation and treatment of chest pain and SOB. Plan: Shortness of breath 2/2 COPD Exacerbation vs tobacco - CXR: negative for active disease, no interval change since previous imaging - Likely secondary to COPD exacerbation secondary to medication noncompliance and tobacco abuse - Duonebs q4 PRN - Continue home symbicort and singulair - f/u blood and urine cx Atypical Chest pain, Hx of CAD/CABG - Rule out ACS , EF 66% - Cardiac stent 04/08 - Trop neg in ED, trend q6h x 2 - EKG in ED- NSR No ST-T wave changes, HR 68 bpm - Continue aspirin, Plavix, Lipitor, Coreg , lisinopril. Imdur held at this time. - Restarting home Coreg with holding parameters - Reg diet in setting of HypoNa Hyponatremia - Na 123 - Nephro consult - Dr. Guillaume - recs appreciated - fluid restriction at this time - f/u urine studies - max serum Na change of 6-8 mmol over 24 hours - continue to monitor Hx of ETOH - level <10 - continue to monitor - Seizure precautions Normocytic Anemia Hgb 10.0 Continue to monitor f/u fecal occult Hx of HTN -continue home coreg -BP currently 99/60, around baseline - Imdur held due to hypotension Tobacco abuse - nicotine patch - encourage cessation of tobacco use Prophylaxis: - DVT- SCDs - GI- Protonix Patient seen, case discussed, and plan approved by attending Dr Lovelace. Mata Lopez, PGY-1 <Nova Lovelace - Last Filed: 06/17/18 22:13> Results - Vital Signs Recent Vital Signs: Last Vital Signs Temp 97.6 F 06/17/18 16:00 Pulse 63 06/17/18 17:40 Resp 18 06/17/18 17:40 BP 95/56 L 06/17/18 17:40 Pulse Ox 99 06/17/18 17:40 - Labs Result Diagrams: 06/17/18 16:50 06/17/18 16:50 Labs: Laboratory Results - last 24 hr 06/17/18 06/17/18 06/17/18 16:50 16:50 16:50 WBC 4.7 RBC 3.02 L Hgb 10.0 L Hct 28.3 L MCV 93.7 MCH 33.1 MCHC 35.3 RDW 13.9 Plt Count 291 MPV 8.1 Gran % 43.6 L Lymph % (Auto) 38.1 H [place] % (Auto) 11.7 H Eos % (Auto) 5.3 H Baso % (Auto) 1.3 Gran # 2.06 Lymph # (Auto) 1.8 [place] # (Auto) 0.6 Eos # (Auto) 0.3 Baso # (Auto) 0.06 PT 12.0 INR 1.05 APTT 32.3 D-Dimer, Quantitative 206 Sodium 123 L Potassium 4.9 Chloride 91 L Carbon Dioxide 24 Anion Gap 13 BUN 17 Creatinine 0.6 L Est GFR ( Amer) > 60 Est GFR (Non-Af Amer) > 60 Random Glucose 89 Serum Osmolality Calcium 9.0 Phosphorus Magnesium Total Bilirubin 0.4 AST 26 ALT 18 Alkaline Phosphatase 52 Troponin I < 0.01 NT-Pro-B Natriuret Pep Total Protein 6.4 Albumin 3.7 Globulin 2.7 Albumin/Globulin Ratio 1.3 Lipase 272 Urine Color Urine Appearance Urine pH Ur Specific [place] Urine Protein Urine Glucose (UA) Urine Ketones Urine Blood Urine Nitrate Urine Bilirubin Urine Urobilinogen Ur Leukocyte Esterase Urine Osmolality Ur Random Sodium Alcohol, Quantitative 06/17/18 06/17/18 06/17/18 16:50 18:40 18:40 WBC RBC Hgb Hct MCV MCH MCHC RDW Plt Count MPV Gran % Lymph % (Auto) [place] % (Auto) Eos % (Auto) Baso % (Auto) Gran # Lymph # (Auto) [place] # (Auto) Eos # (Auto) Baso # (Auto) PT INR APTT D-Dimer, Quantitative Sodium Potassium Chloride Carbon Dioxide Anion Gap BUN Creatinine Est GFR ( Amer) Est GFR (Non-Af Amer) Random Glucose Serum Osmolality 262 L Calcium Phosphorus Magnesium Total Bilirubin AST ALT Alkaline Phosphatase Troponin I NT-Pro-B Natriuret Pep 450 Total Protein Albumin Globulin Albumin/Globulin Ratio Lipase Urine Color Urine Appearance Urine pH Ur Specific [place] Urine Protein Urine Glucose (UA) Urine Ketones Urine Blood Urine Nitrate Urine Bilirubin Urine Urobilinogen Ur Leukocyte Esterase Urine Osmolality Ur Random Sodium Alcohol, Quantitative < 10 06/17/18 06/17/18 06/17/18 18:40 20:23 20:23 WBC RBC Hgb Hct MCV MCH MCHC RDW Plt Count MPV Gran % Lymph % (Auto) [place] % (Auto) Eos % (Auto) Baso % (Auto) Gran # Lymph # (Auto) [place] # (Auto) Eos # (Auto) Baso # (Auto) PT INR APTT D-Dimer, Quantitative Sodium Potassium Chloride Carbon Dioxide Anion Gap BUN Creatinine Est GFR ( Amer) Est GFR (Non-Af Amer) Random Glucose Serum Osmolality Calcium Phosphorus 4.1 Magnesium 1.7 Total Bilirubin AST ALT Alkaline Phosphatase Troponin I NT-Pro-B Natriuret Pep Total Protein Albumin Globulin Albumin/Globulin Ratio Lipase Urine Color Yellow Urine Appearance Clear Urine pH 5.5 Ur Specific [place] 1.025 Urine Protein Negative Urine Glucose (UA) Negative Urine Ketones Negative Urine Blood Negative Urine Nitrate Negative Urine Bilirubin Negative Urine Urobilinogen 0.2 Ur Leukocyte Esterase Negative Urine Osmolality 566 Ur Random Sodium 76 Alcohol, Quantitative Attending/Attestation - Attestation I have personally seen and examined this patient.: Yes I have fully participated in the care of the patient.: Yes I have reviewed all pertinent clinical information: Yes Notes (Text): 06/17/18 21:38 Pt seen with the resident. Case discussed in detail. Pt was hypotensive when he came to the ER,was placed on iv fluids,it went up to the 90s. Pt did state he felt dizzy at times,but did not specify what relieved it. At the time of examination,he did not c/o chest tightness,however he had it when he came to the hospital. He also stated the chest pain/tightness radiated to the abdomen at times and was because of his shortness of breath. /wheezing O/E abdomen was non tender. Sternotomy scar noted on the chest wall Agree with rest of documentation.assessment and plan of treatment. Will add lipase to blood work already ordered and EKG and in AM. 06/17/18 22:05
[2018-06-17 20:32] LABS: OSMOLALITY,URINE 566 mosm/kg (300-1000)
[2018-06-17 20:37] LABS: PH,URINE 5.5 (4.7-8.0); URINE BILIRUBIN NEGATIVE (NEGATIVE); URINE BLOOD NEGATIVE (NEGATIVE); URINE GLUCOSE (UA) NEGATIVE (NEGATIVE); URINE LEUKOCYTE ESTERASE NEGATIVE Leu/uL (NEGATIVE); URINE PROTEIN NEGATIVE mg/dL (<30 mg/dL); URINE UROBILINOGEN 0.2 E.U./dL (<1 E.U./dL)
[2018-06-17 20:40] LABS: URINE APPEARANCE CLEAR (CLEAR); URINE COLOR YELLOW (YELLOW)
[2018-06-18 01:49] VITALS: BMI 22.5
[2018-06-18 05:50] VITALS: O2SAT 98
[2018-06-18 08:25] LABS: GRAN # 3.31 (1.4-6.5); GRAN % 84.7 % (50.0-68.0); LYMPH # 0.5 (1.2-3.4); LYMPH % 12.5 % (22.0-35.0); MEAN CELL VOLUME 93.3 fl (80.0-105.0); MEAN CORPUSCULAR HEMOGLOBIN 32.3 pg (25.0-35.0); MEAN CORPUSCULAR HGB CONC 34.6 g/dl (31.0-37.0); MEAN PLATELET VOLUME 8.3 fl (7.0-11.0); MONO # 0.1 (0.1-0.6); MONO % 2.8 % (1.0-6.0); RBC 3.41 10^6/uL (3.5-6.1); RED CELL DISTRIBUTION WIDTH 13.9 % (11.5-14.5); WHITE BLOOD COUNT 3.9 10^3/uL (4.5-11.0)
[2018-06-18 08:37] LABS: ALB/GLOB RATIO 1.4 (1.1-1.8); ALBUMIN 4.3 g/dL (3.0-4.8); ALT/SGPT 17 U/L (7-56); AST/SGOT 22 U/L (17-59); BLOOD UREA NITROGEN 17 mg/dL (7-21); CALCIUM 9.8 mg/dL (8.4-10.5); GFR NON-AFRICAN AMERICAN > 60
[2018-06-18 08:47] LABS: TROPONIN I < 0.01 ng/mL
[2018-06-18] MEDS ORDERED: guaiFENesin DM 200 mg-20 mg/10 ml UD PO PRN (09:26)
[2018-06-18] MEDS: MethylPREDNISolone 40 mg Vial IVP SCH ×2 (09:56→22:58)
[2018-06-18] MEDS: Pantoprazole 40 mg EC Tab PO SCH (09:56)
[2018-06-18] MEDS: Azithromycin 500MG/NS 250ml 500 MG/250 ML BAG IVPB SCH (09:57)
[2018-06-18] MEDS: Enoxaparin 40 mg Syringe SC SCH (09:57)
--- NOTE | 2018-06-18 11:04 | CP.PCM.CON ---
<Jeovanny Lin - Last Filed: 06/18/18 13:38> History of Present Illness - History of Present Illness History of Present Illness: Nephro Consult Note for Dr. Guillaume service Consulted for: Hyponatremia This is a 63 yo M with PMH of HTN, COPD, TIA, CAD w/ stents, CABG, and hx of EtOH and polysubtance abuse (heroin, cocaine, marijuana) who presented to [facility] with complaint of shortness of breath and chest pressure/pain radiating to left arm. Nephro was consulted due to sodium of 123 on admission. Patient seen and examined at bedside today. Poor historian, so ROS limited. As per patient, he hasn't had any alcohol since March (had a lapse that month). Reports intermittent marijuana use, but denies any cocaine/heroin in at least 6 months. Reports some left lower quandrant discomfort statically, not associated with urination. Does report some dysuria and intermittent difficulties with stream (with urinate small volume, finish, and then urinate a larger volume minutes later). Denies hematuria, flank or CVA tenderness, anuria/oliguria, increased frequency. Reports daily fluid intake, primarily juice, water, and mild, but later told the attending that he was drinking more lately. Denies extremity edema, smoking, cough, current chest pain, nausea, emesis, diarrhea, melena, fevers, or chills. Denies any head trauma recently. 12-system ROS reviewed and negative except as above PMH: as above PSH: Cardiac cath and stents, CABG Fam Hx: pt unsure Soc Hx: former tobacco user (2ppd x 30 yrs, quit < 1 yr prior), former alcoholic (reports clean for 2 yrs, but lapsed in March 2018, no further drinking since as per pt), admits to former cocaine and heroin but none in > 1 yr, admits to current intermittent marijuana use, lives at [facility] Review of Systems - Review of Systems All systems: reviewed and no additional remarkable complaints except (as per HPI) Past Patient History - Infectious Disease Hx of Infectious Diseases: None - Tetanus Immunizations Tetanus Immunization: Unknown - Past Medical History & Family History Past Medical History?: Yes - Past Social History Smoking Status: Current Some Days Smoker - CARDIAC Hx Cardiac Disorders: Yes (CAD with stents, CABG, sinus bradycardia, cardiac arrythmias, angina) Hx Hypertension: Yes - PULMONARY Hx Chronic Obstructive Pulmonary Disease (COPD): Yes - NEUROLOGICAL Hx Neurological Disorder: Yes (peripheral neuropathy) Hx Dizziness: Yes Hx Migraine: Yes Hx Transient Ischemic Attacks (TIA): Yes Other/Comment: b/l legs burning numbnes, tingling - HEENT Hx HEENT Problems: Yes (eyeglasses, r eye lazy eye) Hx Cataracts: Yes - RENAL Hx Chronic Kidney Disease: Yes Hx Kidney Stones: Yes - ENDOCRINE/METABOLIC Hx Endocrine Disorders: No - HEMATOLOGICAL/ONCOLOGICAL Hx Blood Disorders: Yes Hx Anemia: Yes - INTEGUMENTARY Hx Dermatological Problems: Yes - MUSCULOSKELETAL/RHEUMATOLOGICAL Hx Musculoskeletal Disorders: Yes Hx Arthritis: Yes Hx Degenerative Joint Disease: Yes Hx Falls: Yes (past) Hx Fractures: Yes (RIB) Hx Gout: Yes Hx Unsteady Gait: Yes - GASTROINTESTINAL Hx Gastrointestinal Disorders: Yes (COLITIS,DIVERTICULOSIS) Hx Gall Bladder Disease: Yes (gallstones) Hx Gastroesophageal Reflux: Yes - GENITOURINARY/GYNECOLOGICAL Hx Genitourinary Disorders: Yes Hx Urinary Tract Infection: Yes - PSYCHIATRIC Hx Anxiety: Yes Hx Depression: Yes Hx Post Traumatic Stress Disorder: Yes Hx Substance Use: Yes (COCAINE,HEROIN,MARIJUANA USE. H/O.DENIES RECENT USE.) Other/Comment: quit smoking 1 week ago, [facility],etoh abuse quit drinking sober 1 yr 6 months relapsed 04/03/18 then stopped again, personality disorder, smokes pot occasionally but quit heroin cocaine in , criminal charges in past, lives at [facility] - SURGICAL HISTORY Hx Cardiac Catheterization: Yes (CORONARY STENT) Hx Cholecystectomy: Yes Hx Coronary Stent: Yes Hx Open Heart Surgery: Yes (triple bypass) - ANESTHESIA Hx Anesthesia: Yes Hx Anesthesia Reactions: No Hx Malignant Hyperthermia: No Meds Allergies/Adverse Reactions: Allergies Allergy/AdvReac Type Severity Reaction Status Date / Time shellfish derived Allergy ANAPHYLAXIS Verified 06/17/18 16:03 Sulfa (Sulfonamide Allergy RASH Verified 06/17/18 16:03 Antibiotics) - Medications Medications: Current Medications Albuterol Sulfate (Albuterol 0.083% Inhal Lidya (2.5 Mg/3 Ml) Ud) 2.5 mg INH [id number] PRN PRN Reason: SOB Albuterol/Ipratropium (Duoneb 3 Mg/0.5 Mg (3 Ml) Ud) 3 ml IH [id number] Aspirin (Ecotrin) 81 mg PO DAILY [facility] Last Admin: 06/18/18 09:55 Dose: 81 mg Atorvastatin Calcium (Lipitor) 20 mg PO DIN [facility] Last Admin: 06/17/18 21:41 Dose: 20 mg Carvedilol (Coreg) 3.125 mg PO DAILY [facility] Last Admin: 06/18/18 09:55 Dose: 3.125 mg Clopidogrel Bisulfate (Plavix) 75 mg PO DAILY [facility] Last Admin: 06/18/18 09:57 Dose: 75 mg Enoxaparin Sodium (Lovenox) 40 mg SC DAILY [facility]; Protocol Last Admin: 06/18/18 09:57 Dose: 40 mg Folic Acid (Folic Acid) 1 mg PO DAILY [facility] Last Admin: 06/18/18 09:56 Dose: 1 mg Guaifenesin/Dextromethorphan (Robitussin Dm) 10 ml PO Q4H PRN PRN Reason: Cough Azithromycin (Zithromax 500mg In Ns) 500 mg in 250 mls @ 167 mls/hr IVPB DAILY [facility]; Protocol Last Admin: 06/18/18 09:57 Dose: 167 mls/hr Lisinopril (Zestril) 10 mg PO DAILY [facility] Last Admin: 06/18/18 09:56 Dose: 10 mg Methylprednisolone (Solu-Medrol) 40 mg IVP Q12 [facility] Last Admin: 06/18/18 09:56 Dose: 40 mg Montelukast Sodium (Singulair) 10 mg PO DAILY [facility] Last Admin: 06/18/18 09:55 Dose: 10 mg Nicotine (Nicoderm Cq) 1 patch TD DAILY [facility] Last Admin: 06/18/18 09:58 Dose: 1 patch Non-Formulary Medication (Fluticasone/Salmeterol [Fluticasone-Salmeterol 232- 14]) 1 inh INH DAILY [facility] Pantoprazole Sodium (Protonix Ec Tab) 40 mg PO DAILY [facility] Last Admin: 06/18/18 09:56 Dose: 40 mg Physical Exam - Constitutional Appears: Non-toxic, No Acute Distress - Head Exam Head Exam: ATRAUMATIC, NORMAL INSPECTION, NORMOCEPHALIC - Eye Exam Eye Exam: EOMI, Normal appearance. absent: Conjunctival injection, Scleral icterus Pupil Exam: absent: Irregular, Unequal - ENT Exam ENT Exam: Mucous Membranes Moist - Neck Exam Neck exam: Positive for: Full Rom, Normal Inspection - Respiratory Exam Respiratory Exam: Decreased Breath Sounds (mild-moderate decreased breath sounds in all dong, otherwise clear to auscultation), NORMAL BREATHING PATTERN. absent: Accessory Muscle Use, Chest Wall Tenderness, Clear to Auscultation Bilateral, Rales, Rhonchi, Wheezes - Cardiovascular Exam Cardiovascular Exam: REGULAR RHYTHM, RRR, +S1, +S2. absent: Bradycardia, Tachycardia, Irregular Rhythm, JVD, +S4 - GI/Abdominal Exam GI & Abdominal Exam: Normal Bowel Sounds, Soft, Tenderness (reports LLQ discomfort statically, not exacerbated by palpation). absent: Diminished Bowel Sounds, Distended, Firm, Hyperactive Bowel Sounds, Hypoactive Bowel Sounds, R igid - Extremities Exam Extremities exam: Positive for: normal capillary refill, normal inspection, pedal pulses present. Negative for: calf tenderness, pedal edema, tenderness - Back Exam Back exam: absent: CVA tenderness (L), CVA tenderness (R) - Neurological Exam Additional comments: awake and alert, following all commands, moving all extremities spontaneously - Psychiatric Exam Psychiatric exam: Normal Affect, Normal Mood Additional comments: poor historian, requires frequent redirecting back onto topic - Skin Skin Exam: Dry, Intact, Normal Color, Warm Results - Vital Signs Recent Vital Signs: Last Vital Signs Temp 98.6 F 06/18/18 06:00 Pulse 70 06/18/18 09:56 Resp 20 06/18/18 06:00 BP 109/64 06/18/18 09:56 Pulse Ox 98 06/18/18 06:00 - Labs Result Diagrams: 06/18/18 08:00 06/18/18 08:00 Labs: Laboratory Results - last 24 hr 06/17/18 06/17/18 06/17/18 16:50 16:50 16:50 WBC 4.7 RBC 3.02 L Hgb 10.0 L Hct 28.3 L MCV 93.7 MCH 33.1 MCHC 35.3 RDW 13.9 Plt Count 291 MPV 8.1 Gran % 43.6 L Lymph % (Auto) 38.1 H Ogle % (Auto) 11.7 H Eos % (Auto) 5.3 H Baso % (Auto) 1.3 Gran # 2.06 Lymph # (Auto) 1.8 Ogle # (Auto) 0.6 Eos # (Auto) 0.3 Baso # (Auto) 0.06 PT 12.0 INR 1.05 APTT 32.3 D-Dimer, Quantitative 206 Sodium 123 L Potassium 4.9 Chloride 91 L Carbon Dioxide 24 Anion Gap 13 BUN 17 Creatinine 0.6 L Est GFR ( Amer) > 60 Est GFR (Non-Af Amer) > 60 POC Glucose (mg/dL) Random Glucose 89 Serum Osmolality Calcium 9.0 Phosphorus Magnesium Total Bilirubin 0.4 AST 26 ALT 18 Alkaline Phosphatase 52 Troponin I < 0.01 NT-Pro-B Natriuret Pep Total Protein 6.4 Albumin 3.7 Globulin 2.7 Albumin/Globulin Ratio 1.3 Lipase 272 TSH 3rd Generation Urine Color Urine Appearance Urine pH Ur Specific [place] Urine Protein Urine Glucose (UA) Urine Ketones Urine Blood Urine Nitrate Urine Bilirubin Urine Urobilinogen Ur Leukocyte Esterase Urine Osmolality Ur Random Sodium Alcohol, Quantitative 06/17/18 06/17/18 06/17/18 16:50 18:40 18:40 WBC RBC Hgb Hct MCV MCH MCHC RDW Plt Count MPV Gran % Lymph % (Auto) Ogle % (Auto) Eos % (Auto) Baso % (Auto) Gran # Lymph # (Auto) Ogle # (Auto) Eos # (Auto) Baso # (Auto) PT INR APTT D-Dimer, Quantitative Sodium Potassium Chloride Carbon Dioxide Anion Gap BUN Creatinine Est GFR ( Amer) Est GFR (Non-Af Amer) POC Glucose (mg/dL) Random Glucose Serum Osmolality 262 L Calcium Phosphorus Magnesium Total Bilirubin AST ALT Alkaline Phosphatase Troponin I NT-Pro-B Natriuret Pep 450 Total Protein Albumin Globulin Albumin/Globulin Ratio Lipase TSH 3rd Generation Urine Color Urine Appearance Urine pH Ur Specific [place] Urine Protein Urine Glucose (UA) Urine Ketones Urine Blood Urine Nitrate Urine Bilirubin Urine Urobilinogen Ur Leukocyte Esterase Urine Osmolality Ur Random Sodium Alcohol, Quantitative < 10 06/17/18 06/17/18 06/17/18 18:40 20:23 20:23 WBC RBC Hgb Hct MCV MCH MCHC RDW Plt Count MPV Gran % Lymph % (Auto) Ogle % (Auto) Eos % (Auto) Baso % (Auto) Gran # Lymph # (Auto) Ogle # (Auto) Eos # (Auto) Baso # (Auto) PT INR APTT D-Dimer, Quantitative Sodium Potassium Chloride Carbon Dioxide Anion Gap BUN Creatinine Est GFR ( Amer) Est GFR (Non-Af Amer) POC Glucose (mg/dL) Random Glucose Serum Osmolality Calcium Phosphorus 4.1 Magnesium 1.7 Total Bilirubin AST ALT Alkaline Phosphatase Troponin I NT-Pro-B Natriuret Pep Total Protein Albumin Globulin Albumin/Globulin Ratio Lipase TSH 3rd Generation Urine Color Yellow Urine Appearance Clear Urine pH 5.5 Ur Specific [place] 1.025 Urine Protein Negative Urine Glucose (UA) Negative Urine Ketones Negative Urine Blood Negative Urine Nitrate Negative Urine Bilirubin Negative Urine Urobilinogen 0.2 Ur Leukocyte Esterase Negative Urine Osmolality 566 Ur Random Sodium 76 Alcohol, Quantitative 06/17/18 06/17/18 06/18/18 23:56 23:56 07:44 WBC RBC Hgb Hct MCV MCH MCHC RDW Plt Count MPV Gran % Lymph % (Auto) Ogle % (Auto) Eos % (Auto) Baso % (Auto) Gran # Lymph # (Auto) Ogle # (Auto) Eos # (Auto) Baso # (Auto) PT INR APTT D-Dimer, Quantitative Sodium Potassium Chloride Carbon Dioxide Anion Gap BUN Creatinine Est GFR ( Amer) Est GFR (Non-Af Amer) POC Glucose (mg/dL) 132 H Random Glucose Serum Osmolality Calcium Phosphorus Magnesium Total Bilirubin AST ALT Alkaline Phosphatase Troponin I < 0.01 NT-Pro-B Natriuret Pep Total Protein Albumin Globulin Albumin/Globulin Ratio Lipase TSH 3rd Generation 1.45 Urine Color Urine Appearance Urine pH Ur Specific [place] Urine Protein Urine Glucose (UA) Urine Ketones Urine Blood Urine Nitrate Urine Bilirubin Urine Urobilinogen Ur Leukocyte Esterase Urine Osmolality Ur Random Sodium Alcohol, Quantitative 06/18/18 06/18/18 06/18/18 08:00 08:00 08:00 WBC 3.9 L RBC 3.41 L Hgb 11.0 L Hct 31.8 L MCV 93.3 MCH 32.3 MCHC 34.6 RDW 13.9 Plt Count 316 MPV 8.3 Gran % 84.7 H Lymph % (Auto) 12.5 L Ogle % (Auto) 2.8 Eos % (Auto) 0.0 L Baso % (Auto) 0.0 Gran # 3.31 Lymph # (Auto) 0.5 L Ogle # (Auto) 0.1 Eos # (Auto) 0.0 Baso # (Auto) 0.00 PT INR APTT D-Dimer, Quantitative Sodium 128 L Potassium 5.1 H Chloride 96 L Carbon Dioxide 23 Anion Gap 15 BUN 17 Creatinine 0.6 L Est GFR ( Amer) > 60 Est GFR (Non-Af Amer) > 60 POC Glucose (mg/dL) Random Glucose 131 H Serum Osmolality Calcium 9.8 Phosphorus 3.6 Magnesium 1.9 Total Bilirubin 0.4 AST 22 ALT 17 Alkaline Phosphatase 57 Troponin I < 0.01 NT-Pro-B Natriuret Pep Total Protein 7.3 Albumin 4.3 Globulin 3.0 Albumin/Globulin Ratio 1.4 Lipase TSH 3rd Generation Urine Color Urine Appearance Urine pH Ur Specific [place] Urine Protein Urine Glucose (UA) Urine Ketones Urine Blood Urine Nitrate Urine Bilirubin Urine Urobilinogen Ur Leukocyte Esterase Urine Osmolality Ur Random Sodium Alcohol, Quantitative Assessment & Plan - Assessment and Plan (Free Text) Assessment: This is a 63 yo M with PMH of HTN, COPD, TIA, CAD w/ stents, CABG, and hx of EtOH and polysubtance abuse (heroin, cocaine, marijuana) who presented to [facility] with complaint of shortness of breath and chest pressure/pain radiating to left arm. Nephro was consulted due to sodium of 123 on admission. Plan: Hyponatremia -Urine and serum osms and sodium reviewed, elevated urine osm and Na -Na improved from 123 to 128 since admission -In reviewing charting, patient has had similar presentation with prior drinking episodes, so even though EtOH lvl negative this admission beer potomania remains possibility -Euvolemic vs hypovolemic hyponatremia, may be 2/2 EVE inhibitor vs beer potomania vs SIADH -Na improving, continue to monitor, encourage PO intake, no acute intervention indicated Reviewed and discussed with attending, Dr. Guillaume <Silas Guillaume - Last Filed: 06/18/18 21:39> Meds - Medications Medications: Current Medications Albuterol Sulfate (Albuterol 0.083% Inhal Lidya (2.5 Mg/3 Ml) Ud) 2.5 mg INH [id number] PRN PRN Reason: SOB Albuterol/Ipratropium (Duoneb 3 Mg/0.5 Mg (3 Ml) Ud) 3 ml IH [id number] [facility] Last Admin: 06/18/18 20:38 Dose: 3 ml Aspirin (Ecotrin) 81 mg PO DAILY [facility] Last Admin: 11/28/18 09:55 Dose: 81 mg Atorvastatin Calcium (Lipitor) 80 mg PO DIN [facility] Last Admin: 06/18/18 19:06 Dose: 80 mg Carvedilol (Coreg) 3.125 mg PO DAILY [facility] Last Admin: 06/18/18 09:55 Dose: 3.125 mg Clopidogrel Bisulfate (Plavix) 75 mg PO DAILY [facility] Last Admin: 06/18/18 09:57 Dose: 75 mg Docusate Sodium (Colace) 100 mg PO DAILY [facility] Last Admin: 06/18/18 11:57 Dose: 100 mg Enoxaparin Sodium (Lovenox) 40 mg SC DAILY [facility]; Protocol Last Admin: 06/18/18 09:57 Dose: 40 mg Folic Acid (Folic Acid) 1 mg PO DAILY [facility] Last Admin: 06/18/18 09:56 Dose: 1 mg Guaifenesin/Dextromethorphan (Robitussin Dm) 10 ml PO Q4H PRN PRN Reason: Cough Azithromycin (Zithromax 500mg In Ns) 500 mg in 250 mls @ 167 mls/hr IVPB DAILY [facility]; Protocol Last Admin: 06/18/18 09:57 Dose: 167 mls/hr Sodium Chloride (Sodium Chloride 0.9%) 1,000 mls @ 100 mls/hr IV .Q10H [facility] Stop: 06/19/18 04:59 Isosorbide Mononitrate (Imdur Er) 30 mg PO DAILY [facility] Last Admin: 06/18/18 15:27 Dose: 30 mg Lisinopril (Zestril) 10 mg PO DAILY [facility] Last Admin: 06/18/18 09:56 Dose: 10 mg Methylprednisolone (Solu-Medrol) 40 mg IVP Q12 [facility] Last Admin: 06/18/18 09:56 Dose: 40 mg Montelukast Sodium (Singulair) 10 mg PO DAILY [facility] Last Admin: 06/18/18 09:55 Dose: 10 mg Nicotine (Nicoderm Cq) 1 patch TD DAILY [facility] Last Admin: 06/18/18 09:58 Dose: 1 patch Non-Formulary Medication (Fluticasone/Salmeterol [Fluticasone-Salmeterol 232- 14]) 1 inh INH DAILY [facility] Last Admin: 06/18/18 11:58 Dose: Not Given Pantoprazole Sodium (Protonix Ec Tab) 40 mg PO DAILY [facility] Last Admin: 11/28/18 09:56 Dose: 40 mg Results - Vital Signs Recent Vital Signs: Last Vital Signs Temp 97.8 F 06/18/18 17:53 Pulse 73 06/18/18 18:00 Resp 18 06/18/18 17:53 BP 102/59 L 06/18/18 17:53 Pulse Ox 98 06/18/18 06:00 - Labs Result Diagrams: 06/18/18 08:00 06/18/18 15:30 Labs: Laboratory Results - last 24 hr 06/17/18 06/17/18 06/18/18 23:56 23:56 07:44 WBC RBC Hgb Hct MCV MCH MCHC RDW Plt Count MPV Gran % Lymph % (Auto) Ogle % (Auto) Eos % (Auto) Baso % (Auto) Gran # Lymph # (Auto) Ogle # (Auto) Eos # (Auto) Baso # (Auto) Sodium Potassium Chloride Carbon Dioxide Anion Gap BUN Creatinine Est GFR ( Amer) Est GFR (Non-Af Amer) POC Glucose (mg/dL) 132 H Random Glucose Calcium Phosphorus Magnesium Total Bilirubin AST ALT Alkaline Phosphatase Troponin I < 0.01 Total Protein Albumin Globulin Albumin/Globulin Ratio TSH 3rd Generation 1.45 06/18/18 06/18/18 06/18/18 08:00 08:00 08:00 WBC 3.9 L RBC 3.41 L Hgb 11.0 L Hct 31.8 L MCV 93.3 MCH 32.3 MCHC 34.6 RDW 13.9 Plt Count 316 MPV 8.3 Gran % 84.7 H Lymph % (Auto) 12.5 L Ogle % (Auto) 2.8 Eos % (Auto) 0.0 L Baso % (Auto) 0.0 Gran # 3.31 Lymph # (Auto) 0.5 L Ogle # (Auto) 0.1 Eos # (Auto) 0.0 Baso # (Auto) 0.00 Sodium 128 L Potassium 5.1 H Chloride 96 L Carbon Dioxide 23 Anion Gap 15 BUN 17 Creatinine 0.6 L Est GFR ( Amer) > 60 Est GFR (Non-Af Amer) > 60 POC Glucose (mg/dL) Random Glucose 131 H Calcium 9.8 Phosphorus 3.6 Magnesium 1.9 Total Bilirubin 0.4 AST 22 ALT 17 Alkaline Phosphatase 57 Troponin I < 0.01 Total Protein 7.3 Albumin 4.3 Globulin 3.0 Albumin/Globulin Ratio 1.4 TSH 3rd Generation 06/18/18 06/18/18 06/18/18 11:23 15:30 16:09 WBC RBC Hgb Hct MCV MCH MCHC RDW Plt Count MPV Gran % Lymph % (Auto) Ogle % (Auto) Eos % (Auto) Baso % (Auto) Gran # Lymph # (Auto) Ogle # (Auto) Eos # (Auto) Baso # (Auto) Sodium 127 L Potassium 5.1 H Chloride 95 L Carbon Dioxide 21 Anion Gap 17 BUN 21 Creatinine 0.8 Est GFR ( Amer) > 60 Est GFR (Non-Af Amer) > 60 POC Glucose (mg/dL) 105 147 H Random Glucose 143 H Calcium 9.5 Phosphorus Magnesium Total Bilirubin AST ALT Alkaline Phosphatase Troponin I Total Protein Albumin Globulin Albumin/Globulin Ratio TSH 3rd Generation Assessment & Plan - Assessment and Plan (Free Text) Plan: Pt seen and examined. I have reviewed the note of the medical services assistant and agree with it. I have discussed the assessment and plan with the resident. I have reviewed the patient's labs and medications. Pt with hyponatremia. He has hx of ETOH use in the past. Saline was given to the pt and the Na was improving. Will continue with IVF for now and recheck the Na in the am.
--- NOTE | 2018-06-18 11:08 | CARD ---
APPROVED REPORT Date of service: 06/18/2018 EKG Measurement Heart [id number] <Conclusion> Sinus bradycardia Otherwise normal ECG
[2018-06-18] MEDS: Albuterol-Ipratrop 3 mg / 0.5 (3 ml) UD IH SCH ×3 (11:10→20:38)
--- NOTE | 2018-06-18 11:37 | CP.PCM.PN ---
<Mata Lopez - Last Filed: 06/18/18 12:32> Subjective - Date & Time of Evaluation Date of Evaluation: 06/18/18 Time of Evaluation: 07:45 - Subjective Subjective: Mata Lopez PGY-1 Progress Note for Hospitalist Service Patient seen and evaluated at bedside. Patient reports productive cough with green/yellow sputum. Reports improvement in breathing from yesterday. Reports some headaches and hard stool this morning. Denies chest pain, palpitations, dizziness, abdominal pain, nausea, vomiting, and leg pain. Objective - Vital Signs/Intake and Output Vital Signs (last 24 hours): Temp Pulse Resp BP Pulse Ox 98.6 F 68 20 109/64 98 06/18/18 06:00 06/18/18 11:14 06/18/18 06:00 06/18/18 09:56 06/18/18 06:00 Intake and Output: 06/18/18 06/18/18 06:59 18:59 Intake Total 360 Output Total 900 Balance -540 - Medications Medications: Current Medications Albuterol Sulfate (Albuterol 0.083% Inhal Lidya (2.5 Mg/3 Ml) Ud) 2.5 mg INH [id number] PRN PRN Reason: SOB Albuterol/Ipratropium (Duoneb 3 Mg/0.5 Mg (3 Ml) Ud) 3 ml IH [id number] [facility] Last Admin: 06/18/18 11:10 Dose: 3 ml Aspirin (Ecotrin) 81 mg PO DAILY [facility] Last Admin: 06/18/18 09:55 Dose: 81 mg Atorvastatin Calcium (Lipitor) 20 mg PO DIN [facility] Last Admin: 06/17/18 21:41 Dose: 20 mg Carvedilol (Coreg) 3.125 mg PO DAILY [facility] Last Admin: 06/18/18 09:55 Dose: 3.125 mg Clopidogrel Bisulfate (Plavix) 75 mg PO DAILY [facility] Last Admin: 06/18/18 09:57 Dose: 75 mg Docusate Sodium (Colace) 100 mg PO DAILY [facility] Enoxaparin Sodium (Lovenox) 40 mg SC DAILY [facility]; Protocol Last Admin: 06/18/18 09:57 Dose: 40 mg Folic Acid (Folic Acid) 1 mg PO DAILY [facility] Last Admin: 06/18/18 09:56 Dose: 1 mg Guaifenesin/Dextromethorphan (Robitussin Dm) 10 ml PO Q4H PRN PRN Reason: Cough Azithromycin (Zithromax 500mg In Ns) 500 mg in 250 mls @ 167 mls/hr IVPB DAILY [facility]; Protocol Last Admin: 06/18/18 09:57 Dose: 167 mls/hr Lisinopril (Zestril) 10 mg PO DAILY [facility] Last Admin: 06/18/18 09:56 Dose: 10 mg Methylprednisolone (Solu-Medrol) 40 mg IVP Q12 [facility] Last Admin: 06/18/18 09:56 Dose: 40 mg Montelukast Sodium (Singulair) 10 mg PO DAILY [facility] Last Admin: 06/18/18 09:55 Dose: 10 mg Nicotine (Nicoderm Cq) 1 patch TD DAILY [facility] Last Admin: 06/18/18 09:58 Dose: 1 patch Non-Formulary Medication (Fluticasone/Salmeterol [Fluticasone-Salmeterol 232- 14]) 1 inh INH DAILY [facility] Pantoprazole Sodium (Protonix Ec Tab) 40 mg PO DAILY [facility] Last Admin: 06/18/18 09:56 Dose: 40 mg - Labs Labs: 06/18/18 08:00 06/18/18 08:00 PT 12.0 SECONDS (9.4-12.5) 06/17/18 16:50 INR 1.05 06/17/18 16:50 APTT 32.3 Seconds (25.1-36.5) 06/17/18 16:50 - Additional Findings Additional findings: - Constitutional Appears: Well, Non-toxic, No Acute Distress - Head Exam Head Exam: ATRAUMATIC, NORMOCEPHALIC - Eye Exam Eye Exam: EOMI, Normal appearance Pupil Exam: PERRL - ENT Exam ENT Exam: Mucous Membranes Moist, Normal Exam - Neck Exam Neck exam: Positive for: Normal Inspection - Respiratory Exam Respiratory Exam: Chest Wall Tenderness, Wheezes (End-expiratory wheezing diffu sely). absent: Accessory Muscle Use, Clear to Auscultation Bilateral, Prolonged Expiratory Phase - Cardiovascular Exam Cardiovascular Exam: REGULAR RHYTHM, RRR, +S1, +S2 - GI/Abdominal Exam GI & Abdominal Exam: Normal Bowel Sounds, Soft. absent: Distended, Guarding, Rebound, Tenderness - Back Exam Back exam: NORMAL INSPECTION. absent: CVA tenderness (L), CVA tenderness (R) - Neurological Exam Neurological exam: Alert, CN II-XII Intact, Oriented x3 - Skin Skin Exam: Dry, Intact, Echymosis on abdominal wall 2/2 from prevoius heparin injection sites, Warm Assessment and Plan - Assessment and Plan (Free Text) Assessment: Patient is a 63 year old male with past medical history of HTN, COPD, TIA, CAD with stents, CABG, ETOH abuse, and active tobacco abuse who admitted for evaluation and treatment of chest pain and SOB. Plan: Shortness of breath 2/2 COPD Exacerbation vs tobacco use vs medication noncompliance - CXR: negative for active disease, no interval change since previous imaging - Duonebs q6 scheduled and q4 PRN - Azithromycin 500 mg IV daily - Solu-medrol 40 mg IV BID - Continue home singulair - f/u blood and urine cx, UDS pending - f/u procal Productive Cough - Robitussin DM 10 mg q4 PRN - continue to monitor Atypical Chest pain, Hx of CAD/CABG - Rule out ACS , EF 66% - Cardiac stent 04/08 - Trop neg x3 - EKG in ED- NSR No ST-T wave changes, HR 68 bpm - Continue aspirin, Plavix, Lipitor, Coreg , lisinopril, Imdur - Restarting home Coreg with holding parameters - Reg diet in setting of HypoNa Hyponatremia - Na 123 on admission, 128 this AM - f/u repeat this afternoon - Nephro consult - Dr. Guillaume - recs appreciated - Fluid restriction at this time - Urine studies- urine osmol 566, urina Na 76, serum osmol 262 - max serum Na change of 6-8 mmol over 24 hours - continue to monitor Hx of ETOH - level <10 - states last drink was 3 months ago - continue to monitor - Seizure precautions Normocytic Anemia- improved - Hgb 10.0 on admission, 11.0 this AM - Continue to monitor - f/u fecal occult Hypotension- resolved - continue home coreg - BP currently 120/64 Tobacco abuse - nicotine patch - encourage cessation of tobacco use Prophylaxis: - DVT- SCDs , Lovenox - GI- Protonix Patient seen, case discussed, and plan approved by attending Dr Bowen. Mata Lopez, PGY-1 <Flor Bowen - Last Filed: 06/19/18 08:02> Objective - Vital Signs/Intake and Output Vital Signs (last 24 hours): Temp Pulse Resp BP Pulse Ox 97.4 F L 54 L 18 101/43 L 98 06/19/18 00:01 06/19/18 06:00 06/19/18 00:01 06/19/18 00:01 06/18/18 06:00 Intake and Output: 06/19/18 06/19/18 06:59 18:59 Intake Total 2900 Output Total 2350 Balance 550 - Medications Medications: Current Medications Albuterol Sulfate (Albuterol 0.083% Inhal Lidya (2.5 Mg/3 Ml) Ud) 2.5 mg INH [id number] PRN PRN Reason: SOB Albuterol/Ipratropium (Duoneb 3 Mg/0.5 Mg (3 Ml) Ud) 3 ml IH [id number] [facility] Last Admin: 06/19/18 01:10 Dose: Not Given Aspirin (Ecotrin) 81 mg PO DAILY [facility] Last Admin: 06/18/18 09:55 Dose: 81 mg Atorvastatin Calcium (Lipitor) 80 mg PO DIN [facility] Last Admin: 06/18/18 19:06 Dose: 80 mg Carvedilol (Coreg) 3.125 mg PO DAILY [facility] Last Admin: 06/18/18 09:55 Dose: 3.125 mg Clopidogrel Bisulfate (Plavix) 75 mg PO DAILY [facility] Last Admin: 06/18/18 09:57 Dose: 75 mg Docusate Sodium (Colace) 100 mg PO DAILY [facility] Last Admin: 06/18/18 11:57 Dose: 100 mg Enoxaparin Sodium (Lovenox) 40 mg SC DAILY [facility]; Protocol Last Admin: 06/18/18 09:57 Dose: 40 mg Folic Acid (Folic Acid) 1 mg PO DAILY [facility] Last Admin: 06/18/18 09:56 Dose: 1 mg Guaifenesin/Dextromethorphan (Robitussin Dm) 10 ml PO Q4H PRN PRN Reason: Cough Azithromycin (Zithromax 500mg In Ns) 500 mg in 250 mls @ 167 mls/hr IVPB DAILY [facility]; Protocol Last Admin: 06/18/18 09:57 Dose: 167 mls/hr Sodium Chloride (Sodium Chloride 0.9%) 1,000 mls @ 100 mls/hr IV .Q10H [facility] Isosorbide Mononitrate (Imdur Er) 30 mg PO DAILY [facility] Last Admin: 06/18/18 15:27 Dose: 30 mg Lisinopril (Zestril) 10 mg PO DAILY [facility] Last Admin: 06/18/18 09:56 Dose: 10 mg Methylprednisolone (Solu-Medrol) 40 mg IVP Q12 [facility] Last Admin: 06/18/18 22:58 Dose: 40 mg Montelukast Sodium (Singulair) 10 mg PO DAILY [facility] Last Admin: 06/18/18 09:55 Dose: 10 mg Nicotine (Nicoderm Cq) 1 patch TD DAILY [facility] Last Admin: 06/18/18 09:58 Dose: 1 patch Non-Formulary Medication (Fluticasone/Salmeterol [Fluticasone-Salmeterol 232-1 4]) 1 inh INH DAILY [facility] Last Admin: 06/18/18 11:58 Dose: Not Given Pantoprazole Sodium (Protonix Ec Tab) 40 mg PO DAILY [facility] Last Admin: 06/18/18 09:56 Dose: 40 mg - Labs Labs: 06/18/18 08:00 06/18/18 15:30 PT 12.0 SECONDS (9.4-12.5) 06/17/18 16:50 INR 1.05 06/17/18 16:50 APTT 32.3 Seconds (25.1-36.5) 06/17/18 16:50 Attending/Attestation - Attestation I have personally seen and examined this patient.: Yes I have fully participated in the care of the patient.: Yes I have reviewed all pertinent clinical information, including history, physical exam and plan: Yes Notes (Text): 06/19/18 07:55 Medical record note made by the resident after discussion with my direction and input after the patient was personally seen and examined by me. I have reviewed the chart and agree that the record accurately reflects by personal performance of the history, physical exam, data review, and medical decision-making, in the course for the patient. I have also personally directed the plan of care. 63 year old male with past medical history of hypertension, COPD, TIA, CAD,SP CABG, s/p RCA stents 04/08, chronic smoking , alcohol abuse and non compliance is admitted with complaint of chest pain and shortness of breath found to have COPD exacerbation. Continue Neb/Steroid and antibiotics. Chest Pain is atypical, only with coughing. EKG is negative for ischemic changes Serial cardiac enzymes are negative. Hyponatremia is likely due to SAIDH, Sodium level is impred to 127.Patient is asymptometic. He was counselled on smoking and alcohol cessation. Management plan was discussed in detail with patient. Education was provided
[2018-06-18] MEDS: FLUTICASONE INH SCH (11:58)
[2018-06-18] MEDS: SALMETEROL INH SCH (11:58)
[2018-06-18 16:04] LABS: BLOOD UREA NITROGEN 21 mg/dL (7-21); CALCIUM 9.5 mg/dL (8.4-10.5); GFR NON-AFRICAN AMERICAN > 60
[2018-06-18] MEDS ORDERED: Sodium Chloride 0.9% 1,000 ML IV SCH (19:00)
[2018-06-18 22:35] LABS: BARBITURATES, UR NEGATIVE (NEGATIVE); BENZODIAZEPINES, UR NEGATIVE (NEGATIVE); OPIATES, UR NEGATIVE (NEGATIVE); PHENCYCLIDINE, UR NEGATIVE (NEGATIVE)
[2018-06-18] MEDS ORDERED: Albuterol 0.083% Inhal Sol (2.5 mg/3 mL) UD INH PRN (23:30)
[2018-06-19] MEDS: Albuterol-Ipratrop 3 mg / 0.5 (3 ml) UD IH SCH ×4 (01:10→20:03)
[2018-06-19] MEDS ORDERED: Sodium Chloride 0.9% 1,000 ML IV SCH (06:30)
--- NOTE | 2018-06-19 09:22 | CP.PCM.PN ---
<Jeovanny Lin - Last Filed: 06/19/18 17:51> Subjective - Date & Time of Evaluation Date of Evaluation: 06/19/18 Time of Evaluation: 07:20 - Subjective Subjective: Nephro Progress Note for Dr. Guillaume Service Patient seen and examined at bedside. No acute complaints, no acute events overnight. Sodium improved to 128 yesterday, still pending AM sodium. Denies dysuria, hematuria, anuiria. Denies chest pain and shortness of breath. Objective - Vital Signs/Intake and Output Vital Signs (last 24 hours): Temp Pulse Resp BP Pulse Ox 97.4 F L 54 L 18 101/43 L 98 06/19/18 00:01 06/19/18 06:00 06/19/18 00:01 06/19/18 00:01 06/18/18 06:00 Intake and Output: 06/19/18 06/19/18 06:59 18:59 Intake Total 2900 Output Total 2350 Balance 550 - Medications Medications: Current Medications Albuterol Sulfate (Albuterol 0.083% Inhal Lidya (2.5 Mg/3 Ml) Ud) 2.5 mg INH [id number] PRN PRN Reason: SOB Albuterol/Ipratropium (Duoneb 3 Mg/0.5 Mg (3 Ml) Ud) 3 ml IH [id number] [facility] Last Admin: 06/19/18 08:02 Dose: 3 ml Aspirin (Ecotrin) 81 mg PO DAILY [facility] Last Admin: 06/18/18 09:55 Dose: 81 mg Atorvastatin Calcium (Lipitor) 80 mg PO DIN [facility] Last Admin: 06/18/18 19:06 Dose: 80 mg Carvedilol (Coreg) 3.125 mg PO DAILY [facility] Last Admin: 06/18/18 09:55 Dose: 3.125 mg Clopidogrel Bisulfate (Plavix) 75 mg PO DAILY [facility] Last Admin: 06/18/18 09:57 Dose: 75 mg Docusate Sodium (Colace) 100 mg PO DAILY [facility] Last Admin: 06/18/18 11:57 Dose: 100 mg Enoxaparin Sodium (Lovenox) 40 mg SC DAILY [facility]; Protocol Last Admin: 06/18/18 09:57 Dose: 40 mg Folic Acid (Folic Acid) 1 mg PO DAILY [facility] Last Admin: 06/18/18 09:56 Dose: 1 mg Guaifenesin/Dextromethorphan (Robitussin Dm) 10 ml PO Q4H PRN PRN Reason: Cough Azithromycin (Zithromax 500mg In Ns) 500 mg in 250 mls @ 167 mls/hr IVPB DAILY [facility]; Protocol Last Admin: 06/18/18 09:57 Dose: 167 mls/hr Sodium Chloride (Sodium Chloride 0.9%) 1,000 mls @ 100 mls/hr IV .Q10H [facility] Isosorbide Mononitrate (Imdur Er) 30 mg PO DAILY [facility] Last Admin: 06/18/18 15:27 Dose: 30 mg Lisinopril (Zestril) 10 mg PO DAILY [facility] Last Admin: 06/18/18 09:56 Dose: 10 mg Methylprednisolone (Solu-Medrol) 40 mg IVP Q12 [facility] Last Admin: 06/18/18 22:58 Dose: 40 mg Montelukast Sodium (Singulair) 10 mg PO DAILY [facility] Last Admin: 06/18/18 09:55 Dose: 10 mg Nicotine (Nicoderm Cq) 1 patch TD DAILY [facility] Last Admin: 06/18/18 09:58 Dose: 1 patch Non-Formulary Medication (Fluticasone/Salmeterol [Fluticasone-Salmeterol 232- 14]) 1 inh INH DAILY [facility] Last Admin: 06/18/18 11:58 Dose: Not Given Pantoprazole Sodium (Protonix Ec Tab) 40 mg PO DAILY [facility] Last Admin: 06/18/18 09:56 Dose: 40 mg - Labs Labs: 06/18/18 08:00 06/18/18 15:30 PT 12.0 SECONDS (9.4-12.5) 06/17/18 16:50 INR 1.05 06/17/18 16:50 APTT 32.3 Seconds (25.1-36.5) 06/17/18 16:50 - Additional Findings Additional findings: - Constitutional Appears: Non-toxic, No Acute Distress - Head Exam Head Exam: ATRAUMATIC, NORMAL INSPECTION, NORMOCEPHALIC - Eye Exam Eye Exam: EOMI, Normal appearance. absent: Conjunctival injection, Scleral icterus Pupil Exam: absent: Irregular, Unequal - ENT Exam ENT Exam: Mucous Membranes Moist - Neck Exam Neck exam: Positive for: Full Rom, Normal Inspection - Respiratory Exam Respiratory Exam: Decreased Breath Sounds (mild decreased breath sounds in all dong, otherwise clear to auscultation), NORMAL BREATHING PATTERN. absent: Accessory Muscle Use, Chest Wall Tenderness, Clear to Auscultation Bilateral, Rales, Rhonchi, Wheezes - Cardiovascular Exam Cardiovascular Exam: REGULAR RHYTHM, RRR, +S1, +S2. absent: Bradycardia, Tachycardia, Irregular Rhythm, JVD, +S4 - GI/Abdominal Exam GI & Abdominal Exam: Normal Bowel Sounds, Soft, Tenderness (reports LLQ discomfort statically, not exacerbated by palpation). absent: Diminished Bowel Sounds, Distended, Firm, Hyperactive Bowel Sounds, Hypoactive Bowel Sounds, Rigid - Extremities Exam Extremities exam: Positive for: normal capillary refill, normal inspection, pedal pulses present. Negative for: calf tenderness, pedal edema, tenderness - Back Exam Back exam: absent: CVA tenderness (L), CVA tenderness (R) - Neurological Exam awake and alert, following all commands, moving all extremities spontaneously - Psychiatric Exam Psychiatric exam: Normal Affect, Normal Mood - Skin Skin Exam: Dry, Intact, Normal Color, Warm Assessment and Plan - Assessment and Plan (Free Text) Assessment: This is a 63 yo M with PMH of HTN, COPD, TIA, CAD w/ stents, CABG, and hx of EtOH and polysubtance abuse (heroin, cocaine, marijuana) who presented to [facility] [place] with complaint of shortness of breath and chest pressure/pain radiating to left arm. Nephro was consulted due to sodium of 123 on admission. Improved to 128, pending this AM labs. Plan: Hyponatremia -Urine and serum osms and sodium reviewed, elevated urine osm and Na -Na improved from 123 to 128 since admission with 1L NS and PO intake, so more likely euvolemic hyponatremia -In reviewing charting, patient has had similar presentation with prior drinking episodes, so even though EtOH lvl negative this admission beer potomania remains possibility -Continue to encourage PO intake, continue IVF, f/u AM labs Reviewed and discussed with attending, Dr. Guillaume <Silas Guillaume S - Last Filed: 06/19/18 20:26> Objective - Vital Signs/Intake and Output Vital Signs (last 24 hours): Temp Pulse Resp BP Pulse Ox 97.6 F 62 18 110/65 98 06/19/18 18:00 06/19/18 18:00 06/19/18 18:00 06/19/18 18:00 06/18/18 06:00 Intake and Output: 06/19/18 06/20/18 18:59 06:59 Intake Total 2150 Output Total 720 Balance 1430 - Medications Medications: Current Medications Albuterol Sulfate (Albuterol 0.083% Inhal Lidya (2.5 Mg/3 Ml) Ud) 2.5 mg INH [id number] PRN PRN Reason: SOB Albuterol/Ipratropium (Duoneb 3 Mg/0.5 Mg (3 Ml) Ud) 3 ml IH [id number] [facility] Last Admin: 06/19/18 20:03 Dose: 3 ml Aspirin (Ecotrin) 81 mg PO DAILY [facility] Last Admin: 06/19/18 10:51 Dose: 81 mg Atorvastatin Calcium (Lipitor) 40 mg PO DIN [facility] Last Admin: 06/19/18 16:38 Dose: 40 mg Azithromycin (Zithromax) 500 mg PO DAILY [facility] Carvedilol (Coreg) 3.125 mg PO DAILY [facility] Last Admin: 06/19/18 10:54 Dose: 3.125 mg Clopidogrel Bisulfate (Plavix) 75 mg PO DAILY [facility] Last Admin: 06/19/18 10:52 Dose: 75 mg Docusate Sodium (Colace) 100 mg PO DAILY [facility] Last Admin: 06/19/18 10:51 Dose: 100 mg Enoxaparin Sodium (Lovenox) 40 mg SC DAILY [facility]; Protocol Last Admin: 06/19/18 10:52 Dose: 40 mg Folic Acid (Folic Acid) 1 mg PO DAILY [facility] Last Admin: 06/19/18 10:52 Dose: 1 mg Guaifenesin/Dextromethorphan (Robitussin Dm) 10 ml PO Q4H PRN PRN Reason: Cough Isosorbide Mononitrate (Imdur Er) 30 mg PO DAILY [facility] Last Admin: 06/19/18 10:52 Dose: 30 mg Lisinopril (Zestril) 10 mg PO DAILY [facility] Last Admin: 06/18/18 09:56 Dose: 10 mg Montelukast Sodium (Singulair) 10 mg PO DAILY [facility] Last Admin: 06/19/18 10:51 Dose: 10 mg Nicotine (Nicoderm Cq) 1 patch TD DAILY [facility] Last Admin: 06/19/18 10:53 Dose: 1 patch Non-Formulary Medication (Fluticasone/Salmeterol [Fluticasone-Salmeterol 232- 14]) 1 inh INH DAILY [facility] Last Admin: 06/19/18 10:55 Dose: Not Given Pantoprazole Sodium (Protonix Ec Tab) 40 mg PO DAILY [facility] Last Admin: 06/19/18 10:51 Dose: 40 mg Prednisone (Prednisone Tab) 40 mg PO DAILY [facility] - Labs Labs: 06/19/18 05:00 06/19/18 09:00 PT 12.0 SECONDS (9.4-12.5) 06/17/18 16:50 INR 1.05 06/17/18 16:50 APTT 32.3 Seconds (25.1-36.5) 06/17/18 16:50 Assessment and Plan - Assessment and Plan (Free Text) Plan: Pt seen and examined. I have reviewed the note of the medical support assistant and agree with it. I have discussed the assessment and plan with the resident. I have reviewed the patient's labs and medications. Pt with hyponatremia. He was given IVS with saline. The Na has improved. Pt feels well. Follow labs. Will sign off. Reconsult if needed.
[2018-06-19 09:58] LABS: GRAN # 7.27 (1.4-6.5); GRAN % 89.5 % (50.0-68.0); HEMOGLOBIN 9.6 g/dL (14.0-18.0); LYMPH # 0.5 (1.2-3.4); LYMPH % 6.4 % (22.0-35.0); MEAN CELL VOLUME 95.1 fl (80.0-105.0); MEAN CORPUSCULAR HEMOGLOBIN 31.5 pg (25.0-35.0); MEAN CORPUSCULAR HGB CONC 33.1 g/dl (31.0-37.0); MEAN PLATELET VOLUME 8.3 fl (7.0-11.0); MONO # 0.3 (0.1-0.6); MONO % 4.1 % (1.0-6.0); RBC 3.05 10^6/uL (3.5-6.1); RED CELL DISTRIBUTION WIDTH 14.4 % (11.5-14.5); WHITE BLOOD COUNT 8.1 10^3/uL (4.5-11.0)
[2018-06-19 10:01] LABS: ALB/GLOB RATIO 1.6 (1.1-1.8); ALBUMIN 4.1 g/dL (3.0-4.8); ALT/SGPT 20 U/L (7-56); AST/SGOT 19 U/L (17-59); BLOOD UREA NITROGEN 20 mg/dL (7-21); CALCIUM 9.6 mg/dL (8.4-10.5); GFR NON-AFRICAN AMERICAN > 60
[2018-06-19] MEDS: Azithromycin 500MG/NS 250ml 500 MG/250 ML BAG IVPB SCH (10:51)
[2018-06-19] MEDS: Pantoprazole 40 mg EC Tab PO SCH (10:51)
[2018-06-19] MEDS: MethylPREDNISolone 40 mg Vial IVP SCH (10:52)
[2018-06-19] MEDS: Enoxaparin 40 mg Syringe SC SCH (10:52)
[2018-06-19] MEDS: SALMETEROL INH SCH (10:55)
[2018-06-19] MEDS: FLUTICASONE INH SCH (10:55)
--- NOTE | 2018-06-19 12:41 | CP.PCM.PN ---
<Mata Lopez - Last Filed: 06/19/18 16:10> Subjective - Date & Time of Evaluation Date of Evaluation: 06/19/18 Time of Evaluation: 08:00 - Subjective Subjective: Mata Lopez PGY-1 Progress Note for Hospitalist Service Patient seen and evaluated at bedside. Patient reports cough and shortness of breath improved. Patient admits to drinking 2 pints of unknown alcohol last week. Patient denies chest pain, palpitations, abdominal pain, leg pain and blurry vision. Objective - Vital Signs/Intake and Output Vital Signs (last 24 hours): Temp Pulse Resp BP Pulse Ox 97.4 F L 74 18 97/65 L 98 06/19/18 11:30 06/19/18 11:30 06/19/18 11:30 06/19/18 11:30 06/18/18 06:00 Intake and Output: 06/19/18 06/19/18 06:59 18:59 Intake Total 2900 Output Total 2350 Balance 550 - Medications Medications: Current Medications Albuterol Sulfate (Albuterol 0.083% Inhal Lidya (2.5 Mg/3 Ml) Ud) 2.5 mg INH [id number] PRN PRN Reason: SOB Albuterol/Ipratropium (Duoneb 3 Mg/0.5 Mg (3 Ml) Ud) 3 ml IH [id number] [facility] Last Admin: 06/19/18 08:02 Dose: 3 ml Aspirin (Ecotrin) 81 mg PO DAILY [facility] Last Admin: 06/19/18 10:51 Dose: 81 mg Atorvastatin Calcium (Lipitor) 80 mg PO DIN [facility] Last Admin: 06/18/18 19:06 Dose: 80 mg Carvedilol (Coreg) 3.125 mg PO DAILY [facility] Last Admin: 06/19/18 10:54 Dose: 3.125 mg Clopidogrel Bisulfate (Plavix) 75 mg PO DAILY [facility] Last Admin: 06/19/18 10:52 Dose: 75 mg Docusate Sodium (Colace) 100 mg PO DAILY [facility] Last Admin: 06/19/18 10:51 Dose: 100 mg Enoxaparin Sodium (Lovenox) 40 mg SC DAILY [facility]; Protocol Last Admin: 06/19/18 10:52 Dose: 40 mg Folic Acid (Folic Acid) 1 mg PO DAILY [facility] Last Admin: 06/19/18 10:52 Dose: 1 mg Guaifenesin/Dextromethorphan (Robitussin Dm) 10 ml PO Q4H PRN PRN Reason: Cough Azithromycin (Zithromax 500mg In Ns) 500 mg in 250 mls @ 167 mls/hr IVPB DAILY [facility]; Protocol Last Admin: 06/19/18 10:51 Dose: 167 mls/hr Isosorbide Mononitrate (Imdur Er) 30 mg PO DAILY [facility] Last Admin: 06/19/18 10:52 Dose: 30 mg Lisinopril (Zestril) 10 mg PO DAILY [facility] Last Admin: 06/18/18 09:56 Dose: 10 mg Montelukast Sodium (Singulair) 10 mg PO DAILY [facility] Last Admin: 06/19/18 10:51 Dose: 10 mg Nicotine (Nicoderm Cq) 1 patch TD DAILY [facility] Last Admin: 06/19/18 10:53 Dose: 1 patch Non-Formulary Medication (Fluticasone/Salmeterol [Fluticasone-Salmeterol 232- 14]) 1 inh INH DAILY [facility] Last Admin: 06/19/18 10:55 Dose: Not Given Pantoprazole Sodium (Protonix Ec Tab) 40 mg PO DAILY [facility] Last Admin: 06/19/18 10:51 Dose: 40 mg Prednisone (Prednisone Tab) 40 mg PO DAILY [facility] - Labs Labs: 06/19/18 05:00 06/19/18 09:00 PT 12.0 SECONDS (9.4-12.5) 06/17/18 16:50 INR 1.05 06/17/18 16:50 APTT 32.3 Seconds (25.1-36.5) 06/17/18 16:50 - Additional Findings Additional findings: - Constitutional Appears: Well, Non-toxic, No Acute Distress - Head Exam Head Exam: ATRAUMATIC, NORMOCEPHALIC - Eye Exam Eye Exam: EOMI, Normal appearance Pupil Exam: PERRL - ENT Exam ENT Exam: Mucous Membranes Moist, Normal Exam - Neck Exam Neck exam: Positive for: Normal Inspection - Respiratory Exam Respiratory Exam: Chest Wall Tenderness, Less Wheezes. absent: Accessory Muscle Use, Clear to Auscultation Bilateral, Prolonged Expiratory Phase - Cardiovascular Exam Cardiovascular Exam: REGULAR RHYTHM, RRR, +S1, +S2 - GI/Abdominal Exam GI & Abdominal Exam: Normal Bowel Sounds, Soft. absent: Distended, Guarding, Rebound, Tenderness - Back Exam Back exam: NORMAL INSPECTION. absent: CVA tenderness (L), CVA tenderness (R) - Neurological Exam Neurological exam: Alert, CN II-XII Intact, Oriented x3 - Skin Skin Exam: Dry, Intact, Echymosis on abdominal wall 2/2 from previous heparin injection sites, Warm Assessment and Plan - Assessment and Plan (Free Text) Assessment: Patient is a 63 year old male with past medical history of HTN, COPD, TIA, CAD with stents, CABG, ETOH abuse, and active tobacco abuse who admitted for evaluation and treatment of chest pain and SOB. Transferred to med-surg 06/19 and steroids changed to PO prednisone. Plan: Shortness of breath 2/2 COPD Exacerbation vs tobacco use vs medication noncompliance - CXR: negative for active disease, no interval change since previous imaging - Duonebs q6 scheduled and q4 PRN - Azithromycin 500 mg IV daily - Solu-medrol 40 mg IV BID discontinued, currently Prednisone 40 mg PO daily - Continue home singulair - f/u blood and urine cx - UDS negative - Procal 0.05 Normocytic Anemia, likely dilutional - Hgb 10.0 on admission, 9.6 this AM - Continue to monitor Productive Cough- improving - Robitussin DM 10 mg q4 PRN - continue to monitor Atypical Chest pain, Hx of CAD/CABG - Rule out ACS , EF 66% - Cardiac stent 04/08 - Trop neg x3 - EKG in ED- NSR No ST-T wave changes, HR 68 bpm - Continue aspirin, Plavix, Lipitor, Coreg , lisinopril, Imdur - Restarting home Coreg with holding parameters - Reg diet in setting of HypoNa Hyponatremia likely 2/2 SIADH vs dehydration 2/2 beer potomania- resolved - Na 123 on admission, 134 this AM - Nephro consult - Dr. Guillaume - recs appreciated - Fluid restriction - Urine studies- urine osmol 566, urina Na 76, serum osmol 262 - max serum Na change of 6-8 mmol over 24 hours - continue to monitor Hx of ETOH - level <10 - states last drink was 3 months ago - continue to monitor - Seizure precautions Hypotension- resolved - continue home coreg - BP currently 120/64 Tobacco abuse - nicotine patch - encourage cessation of tobacco use Prophylaxis: - DVT- SCDs , Lovenox - GI- Protonix Disposition: PT recommends Acute rehab Patient seen, case discussed, and plan approved by attending Dr Bowen. Mata Lopez, PGY-1 <Flor Bowen - Last Filed: 06/20/18 16:42> Objective - Vital Signs/Intake and Output Vital Signs (last 24 hours): Temp Pulse Resp BP Pulse Ox 97.5 F L 79 20 98/52 L 98 06/20/18 11:47 06/20/18 11:47 06/20/18 11:47 06/20/18 11:47 06/18/18 06:00 Intake and Output: 06/20/18 06/20/18 06:59 18:59 Intake Total 200 Output Total 500 Balance -300 - Labs Labs: 06/20/18 08:00 06/20/18 08:00 PT 12.0 SECONDS (9.4-12.5) 06/17/18 16:50 INR 1.05 06/17/18 16:50 APTT 32.3 Seconds (25.1-36.5) 06/17/18 16:50 Attending/Attestation - Attestation I have personally seen and examined this patient.: Yes I have fully participated in the care of the patient.: Yes I have reviewed all pertinent clinical information, including history, physical exam and plan: Yes Notes (Text): 06/20/18 16:42 Medical record note made by the resident after discussion with my direction and input after the patient was personally seen and examined by me. I have reviewed the chart and agree that the record accurately reflects by personal performance of the history, physical exam, data review, and medical decision-making, in the course for the patient. I have also personally directed the plan of care.
[2018-06-20] MEDS: Albuterol-Ipratrop 3 mg / 0.5 (3 ml) UD IH SCH ×3 (03:13→13:34)
[2018-06-20 08:09] LABS: GRAN # 6.71 (1.4-6.5); GRAN % 67.3 % (50.0-68.0); HEMOGLOBIN 9.9 g/dL (14.0-18.0); LYMPH # 1.9 (1.2-3.4); LYMPH % 19.4 % (22.0-35.0); MEAN CELL VOLUME 96.8 fl (80.0-105.0); MEAN CORPUSCULAR HEMOGLOBIN 32.1 pg (25.0-35.0); MEAN CORPUSCULAR HGB CONC 33.2 g/dl (31.0-37.0); MEAN PLATELET VOLUME 8.4 fl (7.0-11.0); MONO # 1.3 (0.1-0.6); MONO % 13.3 % (1.0-6.0); RBC 3.08 10^6/uL (3.5-6.1); RED CELL DISTRIBUTION WIDTH 14.8 % (11.5-14.5)
[2018-06-20 09:30] LABS: ALB/GLOB RATIO 1.5 (1.1-1.8); ALBUMIN 4.1 g/dL (3.0-4.8); ALT/SGPT 19 U/L (7-56); AST/SGOT 20 U/L (17-59); BLOOD UREA NITROGEN 25 mg/dL (7-21); CALCIUM 9.7 mg/dL (8.4-10.5); GFR NON-AFRICAN AMERICAN > 60
[2018-06-20] MEDS: Pantoprazole 40 mg EC Tab PO SCH (09:46)
[2018-06-20] MEDS: FLUTICASONE INH SCH (09:47)
[2018-06-20] MEDS: SALMETEROL INH SCH (09:47)
[2018-06-20] MEDS: Enoxaparin 40 mg Syringe SC SCH ×2 (09:47→09:50)
[2018-06-20 11:48] VITALS: BP 98/52; PULSE 79; RESP 20; TEMP 97.5
--- NOTE | 2018-06-20 13:56 | CP.PCM.DIS ---
<Mata Lopez - Last Filed: 06/20/18 14:12> Provider - Provider Date of Admission: 06/17/18 18:10 Attending physician: Flor Bowen MD Primary care physician: Lauren Damon DO Consults: 06/17/18 19:53 Nephrology Consult Routine Comment: Consulting Provider: Silas Guillaume Consulting Physician: Silas Guillaume Reason for Consult: hyponatremia Time Spent in preparation of Discharge (in minutes): 40 Hospital Course - Lab Results Lab Results: Micro Results 06/17/18 22:00 Blood Blood Culture - Preliminary NO GROWTH AFTER 48 HOURS 06/17/18 21:45 Blood Blood Culture - Preliminary NO GROWTH AFTER 48 HOURS Most Recent Lab Values WBC 10.0 10^3/uL (4.5-11.0) D 06/20/18 08:00 RBC 3.08 10^6/uL (3.5-6.1) L 06/20/18 08:00 Hgb 9.9 g/dL (14.0-18.0) L 06/20/18 08:00 Hct 29.8 % (42.0-52.0) L 06/20/18 08:00 MCV 96.8 fl (80.0-105.0) 06/20/18 08:00 MCH 32.1 pg (25.0-35.0) 06/20/18 08:00 MCHC 33.2 g/dl (31.0-37.0) 06/20/18 08:00 RDW 14.8 % (11.5-14.5) H 06/20/18 08:00 Plt Count 299 10^3/uL (120.0-450.0) 06/20/18 08:00 MPV 8.4 fl (7.0-11.0) 06/20/18 08:00 Gran % 67.3 % (50.0-68.0) 06/20/18 08:00 Lymph % (Auto) 19.4 % (22.0-35.0) L 06/20/18 08:00 [place] % (Auto) 13.3 % (1.0-6.0) H 06/20/18 08:00 Eos % (Auto) 0.0 % (1.5-5.0) L 06/20/18 08:00 Baso % (Auto) 0.0 % (0.0-3.0) 06/20/18 08:00 Gran # 6.71 (1.4-6.5) H 06/20/18 08:00 Lymph # (Auto) 1.9 (1.2-3.4) 06/20/18 08:00 [place] # (Auto) 1.3 (0.1-0.6) H 06/20/18 08:00 Eos # (Auto) 0.0 (0.0-0.7) 06/20/18 08:00 Baso # (Auto) 0.00 K/mm3 (0.0-2.0) 06/20/18 08:00 PT 12.0 SECONDS (9.4-12.5) 06/17/18 16:50 INR 1.05 06/17/18 16:50 APTT 32.3 Seconds (25.1-36.5) 06/17/18 16:50 D-Dimer, Quantitative 206 ng/mlDDU (0-243) 06/17/18 16:50 Sodium 138 mmol/L (132-148) 06/20/18 08:00 Potassium 4.4 mmol/L (3.6-5.0) 06/20/18 08:00 Chloride 103 mmol/L (98-107) 06/20/18 08:00 Carbon Dioxide 25 mmol/L (21-33) 06/20/18 08:00 Anion Gap 14 (10-20) 06/20/18 08:00 BUN 25 mg/dL (7-21) H 06/20/18 08:00 Creatinine 0.8 mg/dl (0.8-1.5) 06/20/18 08:00 Est GFR ( Amer) > 60 06/20/18 08:00 Est GFR (Non-Af Amer) > 60 06/20/18 08:00 POC Glucose (mg/dL) 95 mg/dL (65-110) 06/20/18 12:27 Random Glucose 88 mg/dL (70-110) 06/20/18 08:00 Serum Osmolality 262 mosm/kg (272-300) L 06/17/18 18:40 Calcium 9.7 mg/dL (8.4-10.5) 06/20/18 08:00 Phosphorus 3.6 mg/dL (2.5-4.5) 06/18/18 08:00 Magnesium 1.9 mg/dL (1.7-2.2) 06/18/18 08:00 Total Bilirubin 0.3 mg/dL (0.2-1.3) 06/20/18 08:00 AST 20 U/L (17-59) 06/20/18 08:00 ALT 19 U/L (7-56) 06/20/18 08:00 Alkaline Phosphatase 47 U/L (38-126) 06/20/18 08:00 Troponin I < 0.01 ng/mL 06/18/18 08:00 NT-Pro-B Natriuret Pep 450 pg/mL (0-450) 06/17/18 16:50 Total Protein 6.8 g/dL (5.8-8.3) 06/20/18 08:00 Albumin 4.1 g/dL (3.0-4.8) 06/20/18 08:00 Globulin 2.7 gm/dL 06/20/18 08:00 Albumin/Globulin Ratio 1.5 (1.1-1.8) 06/20/18 08:00 Lipase 272 U/L (23-300) 06/17/18 16:50 Procalcitonin < 0.05 NG/ML (0.19-0.49) L 06/18/18 15:30 TSH 3rd Generation 1.45 mIU/mL (0.46-4.68) 06/17/18 23:56 Urine Color Yellow (YELLOW) 06/17/18 20:23 Urine Appearance Clear (CLEAR) 06/17/18 20:23 Urine pH 5.5 (4.7-8.0) 06/17/18 20:23 Ur Specific [place] 1.025 (1.005-1.035) 06/17/18 20:23 Urine Protein Negative mg/dL (<30 mg/dL) 06/17/18 20: Urine Glucose (UA) Negative mg/dL (NEGATIVE) 06/17/18 20:23 Urine Ketones Negative mg/dL (NEGATIVE) 06/17/18 20:23 Urine Blood Negative (NEGATIVE) 06/17/18 20:23 Urine Nitrate Negative (NEGATIVE) 06/17/18 20:23 Urine Bilirubin Negative (NEGATIVE) 06/17/18 20:23 Urine Urobilinogen 0.2 E.U./dL (<1 E.U./dL) 06/17/18 20:23 Ur Leukocyte Esterase Negative Jenifer/uL (NEGATIVE) 06/17/18 20:23 Urine Osmolality 566 mosm/kg (300-1000) 06/17/18 20:23 Ur Random Sodium 76 meq/L 06/17/18 20:23 Urine Opiates Screen Negative (NEGATIVE) 06/18/18 21:50 Urine Methadone Screen Negative (NEGATIVE) 06/18/18 21:50 Ur Barbiturates Screen Negative (NEGATIVE) 06/18/18 21:50 Ur Phencyclidine Scrn Negative (NEGATIVE) 06/18/18 21:50 Ur Amphetamines Screen Negative (NEGATIVE) 06/18/18 21:50 U Benzodiazepines Scrn Negative (NEGATIVE) 06/18/18 21:50 U Oth Cocaine Metabols Negative (NEGATIVE) 06/18/18 21:50 U Cannabinoids Screen Negative (NEGATIVE) 06/18/18 21:50 Alcohol, Quantitative < 10 mg/dL (0-10) 06/17/18 18:40 - Hospital Course Hospital Course: Mata Lopez, PGY-1 Discharge Summary for Hospitalist Service 63 yo M with PMH of HTN, COPD, TIA, CAD w/ stents, CABG, and hx of EtOH and polysubtance abuse (heroin, cocaine, marijuana) who presented to [facility] with complaint of shortness of breath and chest pressure/pain radiating to left arm. Patient was found to have COPD exacerbation. Patient was put on scheduled and as-needed Nebulizers as well as IV steroids and Azithromycin antibiotics. Patient presented with chest Pain which was reproducible and atypical, only with coughing. EKG is negative for ischemic changes. Serial cardiac enzymes x3 were negative. Chest x-ray showed no active disease and no changes from previous images on earlier admissions. Patient also presented with hyponatremia at 123, which was likely due to SAIDH after urine electrolytes were ordered. Sodium level has improved to 127 and then to 134 the next day. Patient remains asymptomatic and is producing urine. Physical therapy recommended acute rehab for patient, which patient refused, stating that he would prefer to go home to [facility]. Patient inquired about home oxygen. A 6 minute walk test was performed which showed an O2 sat. of 94% and 92% before and after ambulation, respectively, so patient does not currently qualify. Patient shortness of breath and cough are improved. Patient denies any other complaints at this time, including chest pain, dizziness, headaches, leg pain, abdominal pain and urinary or bowel changes. Patient was sent home with inhaler, prednisone taper, robitussin, and told to continue current home medications. Medications and inhalers were sent meds to beds, and patient is aware. Compliance was strongly urged. He was counselled on smoking and alcohol cessation. Patient's questions were answered in full and to patient's satisfaction, and patient prepared for discharge. Patient seen, case reviewed and plan approved by Dr. Bowen. Discharge Exam - Head Exam Head Exam: ATRAUMATIC, NORMAL INSPECTION, NORMOCEPHALIC - Additional Findings Additional findings: - Constitutional Appears: Non-toxic, No Acute Distress - Head Exam Head Exam: ATRAUMATIC, NORMAL INSPECTION, NORMOCEPHALIC - Eye Exam Eye Exam: EOMI, Normal appearance. absent: Conjunctival injection, Scleral icterus Pupil Exam: absent: Irregular, Unequal - ENT Exam ENT Exam: Mucous Membranes Moist - Neck Exam Neck exam: Positive for: Full Rom, Normal Inspection - Respiratory Exam Respiratory Exam: Decreased Breath Sounds (mild decreased breath sounds in all dong, otherwise clear to auscultation), Decreased Wheezes, NORMAL BREATHING PATTERN. absent: Accessory Muscle Use, Chest Wall Tenderness, Clear to Auscultation Bilateral, Rales, Rhonchi - Cardiovascular Exam Cardiovascular Exam: REGULAR RHYTHM, RRR, +S1, +S2. absent: Bradycardia, Tachycardia, Irregular Rhythm, JVD, +S4 - GI/Abdominal Exam GI & Abdominal Exam: Normal Bowel Sounds, Soft, Tenderness (reports LLQ discomfort statically, not exacerbated by palpation). absent: Diminished Bowel Sounds, Distended, Firm, Hyperactive Bowel Sounds, Hypoactive Bowel Sounds, Rigid - Extremities Exam Extremities exam: Positive for: normal capillary refill, normal inspection, pedal pulses present. Negative for: calf tenderness, pedal edema, tenderness - Back Exam Back exam: absent: CVA tenderness (L), CVA tenderness (R) - Neurological Exam awake and alert, following all commands, moving all extremities spontaneously - Psychiatric Exam Psychiatric exam: Normal Affect, Normal Mood - Skin Skin Exam: Dry, Intact, Normal Color, Warm Discharge Plan - Discharge Medications Prescriptions: RX: Albuterol HFA [Ventolin HFA 90 mcg/actuation (8 g)] 1 inh INH DAILY #1 inhaler RX: Atorvastatin [Lipitor] 20 mg PO DIN #30 tab RX: guaiFENesin/Dextromethorphan [Robitussin DM] 10 ml PO Q4H PRN #30 udc PRN Reason: Cough RX: Lisinopril [Zestril] 10 mg PO DAILY #30 tab RX: predniSONE [predniSONE Tab] See Taper PO DAILY 9 Days tab - Follow Up Plan Condition: STABLE Disposition: HOME/ ROUTINE Instructions: COPD Including Emphysema (DC), Low Blood Pressure (DC), Hyponatremia (DC) Additional Instructions: Please follow up with your primary doctor Dr. Damon. Appointment was made for you for June 26 at 10: 45 am. Please take all medications, including your new medication of steroid for 9 days as well as Robitussin for cough, as prescribed. Please continue to refrain from alcohol and tobacco use as that will exacerbate your current conditions. Should symptoms reoccur, please visit nearest emergency department. Referrals: Silas Guillaume MD [Staff Provider] - Lauren Damon DO [Primary Care Provider] - <Flor Bowen - Last Filed: 06/20/18 16:40> Provider - Provider Date of Admission: 06/17/18 18:10 Attending physician: Flor Bowen MD Primary care physician: Lauren Damon DO Consults: 06/17/18 19:53 Nephrology Consult Routine Comment: Consulting Provider: Silas Guillaume Consulting Physician: Silas Guillaume Reason for Consult: hyponatremia Hospital Course - Lab Results Lab Results: Micro Results 06/17/18 22:00 Blood Blood Culture - Preliminary NO GROWTH AFTER 48 HOURS 06/17/18 21:45 Blood Blood Culture - Preliminary NO GROWTH AFTER 48 HOURS Most Recent Lab Values WBC 10.0 10^3/uL (4.5-11.0) D 06/20/18 08:00 RBC 3.08 10^6/uL (3.5-6.1) L 06/20/18 08:00 Hgb 9.9 g/dL (14.0-18.0) L 06/20/18 08:00 Hct 29.8 % (42.0-52.0) L 06/20/18 08:00 MCV 96.8 fl (80.0-105.0) 06/20/18 08:00 MCH 32.1 pg (25.0-35.0) 06/20/18 08:00 MCHC 33.2 g/dl (31.0-37.0) 06/20/18 08:00 RDW 14.8 % (11.5-14.5) H 06/20/18 08:00 Plt Count 299 10^3/uL (120.0-450.0) 06/20/18 08:00 MPV 8.4 fl (7.0-11.0) 06/20/18 08:00 Gran % 67.3 % (50.0-68.0) 06/20/18 08:00 Lymph % (Auto) 19.4 % (22.0-35.0) L 06/20/18 08:00 [place] % (Auto) 13.3 % (1.0-6.0) H 06/20/18 08:00 Eos % (Auto) 0.0 % (1.5-5.0) L 06/20/18 08:00 Baso % (Auto) 0.0 % (0.0-3.0) 06/20/18 08:00 Gran # 6.71 (1.4-6.5) H 06/20/18 08:00 Lymph # (Auto) 1.9 (1.2-3.4) 06/20/18 08:00 [place] # (Auto) 1.3 (0.1-0.6) H 06/20/18 08:00 Eos # (Auto) 0.0 (0.0-0.7) 06/20/18 08:00 Baso # (Auto) 0.00 K/mm3 (0.0-2.0) 06/20/18 08:00 PT 12.0 SECONDS (9.4-12.5) 06/17/18 16:50 INR 1.05 06/17/18 16:50 APTT 32.3 Seconds (25.1-36.5) 06/17/18 16:50 D-Dimer, Quantitative 206 ng/mlDDU (0-243) 11/27/18 16:50 Sodium 138 mmol/L (132-148) 06/20/18 08:00 Potassium 4.4 mmol/L (3.6-5.0) 06/20/18 08:00 Chloride 103 mmol/L (98-107) 06/20/18 08:00 Carbon Dioxide 25 mmol/L (21-33) 06/20/18 08:00 Anion Gap 14 (10-20) 06/20/18 08:00 BUN 25 mg/dL (7-21) H 06/20/18 08:00 Creatinine 0.8 mg/dl (0.8-1.5) 06/20/18 08:00 Est GFR ( Amer) > 60 06/20/18 08:00 Est GFR (Non-Af Amer) > 60 06/20/18 08:00 POC Glucose (mg/dL) 95 mg/dL (65-110) 06/20/18 12:27 Random Glucose 88 mg/dL (70-110) 06/20/18 08:00 Serum Osmolality 262 mosm/kg (272-300) L 06/17/18 18:40 Calcium 9.7 mg/dL (8.4-10.5) 06/20/18 08:00 Phosphorus 3.6 mg/dL (2.5-4.5) 06/18/18 08:00 Magnesium 1.9 mg/dL (1.7-2.2) 06/18/18 08:00 Total Bilirubin 0.3 mg/dL (0.2-1.3) 06/20/18 08:00 AST 20 U/L (17-59) 06/20/18 08:00 ALT 19 U/L (7-56) 06/20/18 08:00 Alkaline Phosphatase 47 U/L (38-126) 06/20/18 08:00 Troponin I < 0.01 ng/mL 06/18/18 08:00 NT-Pro-B Natriuret Pep 450 pg/mL (0-450) 06/17/18 16:50 Total Protein 6.8 g/dL (5.8-8.3) 06/20/18 08:00 Albumin 4.1 g/dL (3.0-4.8) 06/20/18 08:00 Globulin 2.7 gm/dL 06/20/18 08:00 Albumin/Globulin Ratio 1.5 (1.1-1.8) 06/20/18 08:00 Lipase 272 U/L (23-300) 06/17/18 16:50 Procalcitonin < 0.05 NG/ML (0.19-0.49) L 06/18/18 15:30 TSH 3rd Generation 1.45 mIU/mL (0.46-4.68) 06/17/18 23:56 Urine Color Yellow (YELLOW) 06/17/18 20:23 Urine Appearance Clear (CLEAR) 06/17/18 20:23 Urine pH 5.5 (4.7-8.0) 06/17/18 20:23 Ur Specific [place] 1.025 (1.005-1.035) 06/17/18 20:23 Urine Protein Negative mg/dL (<30 mg/dL) 06/17/18 20:23 Urine Glucose (UA) Negative mg/dL (NEGATIVE) 06/17/18 20:23 Urine Ketones Negative mg/dL (NEGATIVE) 06/17/18 20:23 Urine Blood Negative (NEGATIVE) 06/17/18 20:23 Urine Nitrate Negative (NEGATIVE) 06/17/18 20:23 Urine Bilirubin Negative (NEGATIVE) 06/17/18 20:23 Urine Urobilinogen 0.2 E.U./dL (<1 E.U./dL) 06/17/18 20:23 Ur Leukocyte Esterase Negative Jenifer/uL (NEGATIVE) 06/17/18 20:23 Urine Osmolality 566 mosm/kg (300-1000) 06/17/18 20:23 Ur Random Sodium 76 meq/L 06/17/18 20:23 Urine Opiates Screen Negative (NEGATIVE) 06/18/18 21:50 Urine Methadone Screen Negative (NEGATIVE) 06/18/18 21:50 Ur Barbiturates Screen Negative (NEGATIVE) 06/18/18 21:50 Ur Phencyclidine Scrn Negative (NEGATIVE) 06/18/18 21:50 Ur Amphetamines Screen Negative (NEGATIVE) 06/18/18 21:50 U Benzodiazepines Scrn Negative (NEGATIVE) 06/18/18 21:50 U Oth Cocaine Metabols Negative (NEGATIVE) 06/18/18 21:50 U Cannabinoids Screen Negative (NEGATIVE) 06/18/18 21:50 Alcohol, Quantitative < 10 mg/dL (0-10) 06/17/18 18:40 Attending/Attestation - Attestation I have personally seen and examined this patient.: Yes I have fully participated in the care of the patient.: Yes I have reviewed all pertinent clinical information, including history, physical exam and plan: Yes Notes (Text): 06/20/18 16:35 Medical record note made by the resident after discussion with my direction and input after the patient was personally seen and examined by me. I have reviewed the chart and agree that the record accurately reflects by personal performance of the history, physical exam, data review, and medical decision-making, in the course for the patient. I have also personally directed the plan of care. 63 year old male with past medical history of hypertension, COPD, TIA, CAD,SP CABG, SPRCA stents 04/08, chronic smoking , alcohol abuse and non compliance is admitted with complaint of chest pain and shortness of breath found to have COPD exacerbation.He has responded well Neb/Steroid and antibiotics. Cough and dyspnea is improved.Patient is on room air and is ambulatory. He will be discharged home on tapering dose of prednisone . Chest Pain is atypical, only with coughing. EKG were negative for ischemic changes Serial cardiac enzymes were normal Hyponatremia is likely due to SAIDH, has resolved. Patient has refused to go to rehab. He was counselled on smoking and alcohol cessation Management plan was discussed in detail with patient. Education was provided 06/20/18 16:40
== END 2018-06-20 15:22 | disposition home or self-care (01) | DRG 191 ==
LOC: ED 15:43 → ERH 18:10 → 2RSO 23:40
PROVIDERS: ADMIT Internal Medicine; ATTEND Internal Medicine
DX: J44.1 Chronic obstructive pulmonary disease with (acute) exacerbation (principal); E22.2 Syndrome of inappropriate secretion of antidiuretic hormone; I12.9 Hypertensive chronic kidney disease with stage 1 through stage 4 chronic kidney disease, or unspecified chronic kidney disease; N18.9 Chronic kidney disease, unspecified; I25.10 Atherosclerotic heart disease of native coronary artery without angina pectoris; I95.9 Hypotension, unspecified; F10.10 Alcohol abuse, uncomplicated; F12.90 Cannabis use, unspecified, uncomplicated; F43.10 Post-traumatic stress disorder, unspecified; G62.9 Polyneuropathy, unspecified; K21.9 Gastro-esophageal reflux disease without esophagitis; D64.9 Anemia, unspecified; Y90.0 Blood alcohol level of less than 20 mg/100 ml; Z86.73 Personal history of transient ischemic attack (TIA), and cerebral infarction without residual deficits; Z87.891 Personal history of nicotine dependence; Z91.14 Patient's other noncompliance with medication regimen; Z87.442 Personal history of urinary calculi; Z79.82 Long term (current) use of aspirin; Z91.19 Patient's noncompliance with other medical treatment and regimen; Z95.5 Presence of coronary angioplasty implant and graft; Z95.1 Presence of aortocoronary bypass graft; Z88.2 Allergy status to sulfonamides

== ENCOUNTER 2018-06-27 14:05 | Emergency (ER) | payer MEDICARE, MEDICAID ==
--- NOTE | 2018-06-27 14:12 | ED PDOC ---
Arrival/HPI - General Historian: Patient, EMS - History of Present Illness Narrative History of Present Illness (Text): 06/27/18 14:09 63 y/o male, pmh including htn/cad with stent/pneumothorax/copd/hyperkalemia, allergic to sulfa, biba for cough/wheezing/fatigue 4 days. Pt. stated that he has URI symptoms with runny nose/cough/wheezing/fatigue x 3-4 days, seen by the pmd Dr. Damon yesterday and given oral antibiotic z pack that he hasn't started yet, went to the pharmacy as he was coughing and wheezing after walking, pharmacist gave nitro SL x 2, received 1 duoneb/1 albuterol/1 aspirin and sub solumedrol 125mg IV which he has headache from the sublin Nitro x 2 with no head injury or fall, stated that he has no relief from the nitro and aspirin but feels better with the duoneb/albuterol. Pt. stated that he has coughing and wheezing for the past few days, no chest pain or palpitation, no night sweat, no dizziness, no change in vision, no numbness or tingling, no palpitation, no other medical or psychological complaints. Past Medical History - Provider Review Nursing Documentation Reviewed: Yes - Past History Past History: No Previous - Infectious Disease Hx of Infectious Diseases: None - Tetanus Immunization Tetanus Immunization: Unknown - Reproductive Currently Lactating: No - Cardiac Hx Cardiac Disorders: Yes (CAD s/p stent after [place] in 03/2018) Hx Hypertension: Yes - Pulmonary Hx Chronic Obstructive Pulmonary Disease (COPD): Yes - Neurological Hx Neurological Disorder: Yes (peripheral neuropathy) Hx Dizziness: Yes Hx Migraine: Yes Hx Transient Ischemic Attacks (TIA): Yes Other/Comment: b/l legs burning numbnes, tingling - HEENT Hx HEENT Disorder: Yes (eyeglasses, r eye lazy eye) Hx Cataracts: Yes - Renal Hx Renal Disorder: Yes Hx Kidney Stones: Yes - Endocrine/Metabolic Hx Endocrine Disorders: No - Hematological/Oncological Hx Blood Disorders: Yes Hx Anemia: Yes - Integumentary Hx Dermatological Disorder: Yes - Musculoskeletal/Rheumatological Hx Arthritis: Yes - Gastrointestinal Hx Gastrointestinal Disorders: Yes (COLITIS,DIVERTICULOSIS) Hx Gall Bladder Disease: Yes (gallstones) Hx Gastroesophageal Reflux: Yes - Genitourinary/Gynecological Hx Genitourinary Disorders: Yes Hx Urinary Tract Infection: Yes - Psychiatric Hx Anxiety: Yes Hx Depression: Yes Hx Post Traumatic Stress Disorder: Yes Hx Substance Use: Yes (COCAINE,HEROIN,MARIJUANA USE. H/O.DENIES RECENT USE.) Other/Comment: quit smoking 1 week ago, [facility] mental [facility],etoh abuse quit drinking sober 1 yr 6 months relapsed 04/03/18 then stopped again, personality disorder, smokes pot occasionally but quit heroin cocaine in , criminal charges in past, lives at [facility] - Surgical History Hx Cardiac Catheterization: Yes (CORONARY STENT) Hx Cholecystectomy: Yes Hx Coronary Stent: Yes Hx Open Heart Surgery: Yes (triple bypass) - Anesthesia Hx Anesthesia: Yes Hx Anesthesia Reactions: No Hx Malignant Hyperthermia: No - Suicidal Assessment Feels Threatened In Home Enviroment: No Family/Social History - Physician Review Nursing Documentation Reviewed: Yes Family/Social History: Unknown Family HX Smoking Status: Current Some Days Smoker Hx Alcohol Use: Yes (RELAPSED 04-03-18) Hx Substance Use: Yes (COCAINE,HEROIN,MARIJUANA USE. H/O.DENIES RECENT USE.) Substance used: HEROIN, MARIJUANA Hx Substance Use Treatment: No Allergies/Home Meds Allergies/Adverse Reactions: Allergies FISH Allergy (Verified 06/27/18 14:25) ITCHING shellfish derived Allergy (Verified 06/27/18 14:25) ANAPHYLAXIS Sulfa (Sulfonamide Antibiotics) Allergy (Verified 06/27/18 14:25) RASH Home Medications: Home Meds Medication Instructions Recorded Confirmed Aspirin [Low Dose Aspirin EC] 81 mg PO DAILY 04/04/18 06/20/18 Montelukast [Singulair] 10 mg PO DAILY 04/04/18 06/20/18 Folic Acid 1 mg PO DAILY 05/04/18 06/20/18 Isosorbide Mononitrate ER [Imdur 30 mg PO DAILY 05/04/18 06/20/18 ER] Carvedilol 3.125 mg PO DAILY 05/05/18 06/20/18 Fluticasone/Salmeterol 1 inh INH DAILY 06/17/18 06/17/18 [Fluticasone-Salmeterol 232-14] Omeprazole 40 mg PO DAILY 06/17/18 06/17/18 Review of Systems - Review of Systems Constitutional: Fatigue. absent: Fevers Eyes: absent: Vision Changes ENT: Rhinorrhea. absent: Hearing Changes Respiratory: Cough, Sputum, Wheezing. absent: SOB Cardiovascular: absent: Chest Pain Gastrointestinal: absent: Abdominal Pain, Diarrhea, Nausea, Vomiting Musculoskeletal: absent: Arthralgias, Back Pain Skin: absent: Rash, Pruritis Neurological: absent: Headache Psychiatric: absent: Anxiety, Depression, Suicidal Ideation Physical Exam Vital Signs Reviewed: Yes Temperature: Afebrile Blood Pressure: Normal Pulse: Tachycardic Respiratory Rate: Normal Appearance: Positive for: Well-Appearing, Non-Toxic, Comfortable Pain Distress: None Mental Status: Positive for: Alert and Oriented X 3 - Systems Exam Head: Present: Atraumatic, Normocephalic Pupils: Present: PERRL Extroacular Muscles: Present: EOMI Conjunctiva: Present: Normal Mouth: Present: Moist Mucous Membranes Neck: Present: Normal Range of Motion Respiratory/Chest: Present: Wheezes, Decreased Breath Sounds, Rhonchi. No: Clear to Auscultation, Good Air Exchange, Respiratory Distress, Accessory Muscle Use, Rales, Retracting, Tachypneic, Tender to Palpation Cardiovascular: Present: Regular Rate and Rhythm, Normal S1, S2, Other (no pedal edema). No: Murmurs Abdomen: No: Tenderness, Distention, Peritoneal Signs, Rebound, Guarding Back: Present: Normal Inspection Upper Extremity: Present: Normal Inspection. No: Cyanosis, Edema Lower Extremity: Present: Normal Inspection. No: Edema Neurological: Present: GCS=15, CN II-XII Intact, Speech Normal, Motor Func Grossly Intact, Gait Normal, Memory Normal Skin: Present: Warm, Dry, Normal Color. No: Rashes Psychiatric: Present: Alert, Oriented x 3, Normal Insight, Normal Concentration Medical Decision Making ED Course and Treatment: 06/27/18 14:15 -ekg -cxr -labs -Duoneb -insulation technician 06/27/18 17:23 -EKG: Sinus Tach @102 BPM, no ST elevation or depression, no T wave inversion. -CXR No active disease. -Labs show no acute findings -Mg within normal limit -Trop after 24 hours is negative -BNP 891 from 820, no pedal edema, nebulizer resolved the symptoms, no signs of CHF, 03/2018 Echo show EF 66.7% -Pt. feels much better, wheezing and rhonchi significantly improved, bilateral clear to auscultate now with no wheezing/crackles/rhonchis. -Vitally stable, slept comfortably, ambulatory without shortness of breath or wheezing, no chest pain or palpitation. Zithromax ordered. -Discharge home with albuterol MDI, prednisone, zithromax, singulair, bromfed dm, stop smoking, follow up with your own pmd within 2 days, return to the ER for any new or worsening signs or symptoms. - RAD Interpretation Radiology Orders: Date of service: 06/27/2018 HISTORY: copd, cough/wheezing COMPARISON: 06/17/2018 FINDINGS: LUNGS: No active pulmonary disease. PLEURA: No significant pleural effusion identified, no pneumothorax apparent. CARDIOVASCULAR: No aortic atherosclerotic calcification present. Normal cardiac size. No pulmonary vascular congestion. OSSEOUS STRUCTURES: Sternal wires VISUALIZED UPPER ABDOMEN: Normal. OTHER FINDINGS: None. IMPRESSION: No active disease. Language Assistant: Radiologist - EKG Interpretation EKG Interpretation (Text): 06/27/18 14:31 -EKG: Sinus Tach @102 BPM, no ST elevation or depression, no T wave inversion. Interpreted by ED Physician: Yes Type: 12 lead EKG - PA / ELECTRIC SOLDERER / Resident Statement MD/DO has reviewed & agrees with the documentation as recorded. Disposition/Present on Arrival - Present on Arrival Any Indicators Present on Arrival: No History of DVT/PE: No History of Uncontrolled Diabetes: No Urinary Catheter: No History of Decub. Ulcer: No History Surgical Site Infection Following: CABG - Mediastinitis - Disposition Have Diagnosis and Disposition been Completed?: Yes Diagnosis: COPD exacerbation Disposition: HOME/ ROUTINE Disposition Time: 17:26 Patient Plan: Discharge Patient Problems: Current Active Problems Problem Status Onset COPD exacerbation Acute Condition: IMPROVED Additional Instructions: -Discharge home with albuterol MDI, prednisone, zithromax, singulair, bromfed dm, stop smoking, follow up with your own pmd within 2 days, return to the ER for any new or worsening signs or symptoms. Prescriptions: Albuterol HFA [Ventolin HFA 90 mcg/actuation (8 g)] 2 puff IH [id number] PRN #1 inhaler PRN Reason: Other Azithromycin [Zithromax] 250 mg PO DAILY #4 tab Brompheniramine/Pseudoephed/Dm [Bromfed Dm Cough 118 ml] 10 ml PO QID PRN #200 ml PRN Reason: Other Montelukast Sodium [Singulair] 10 mg PO DAILY #10 tablet Prednisone 50 mg PO DAILY #5 tablet Referrals: [facility] [place] - Follow up with primary Flor Han MD [Staff Provider] - Follow up with primary Forms: WORK NOTE
[2018-06-27 14:25] VITALS: BMI 23.4
[2018-06-27] MEDS ORDERED: Sodium Chloride 0.9% 1,000 ML IV SCH (14:30)
[2018-06-27] MEDS: Albuterol-Ipratrop 3 mg / 0.5 (3 ml) UD IH SCH ×3 (14:37→15:22)
[2018-06-27 15:03] LABS: EOS % 0.2 % (1.5-5.0); GRAN # 5.82 (1.4-6.5); GRAN % 71.9 % (50.0-68.0); HEMOGLOBIN 10.7 g/dL (14.0-18.0); LYMPH # 1.4 (1.2-3.4); LYMPH % 17.4 % (22.0-35.0); MEAN CELL VOLUME 99.7 fl (80.0-105.0); MEAN CORPUSCULAR HEMOGLOBIN 32.9 pg (25.0-35.0); MEAN PLATELET VOLUME 8.3 fl (7.0-11.0); MONO # 0.9 (0.1-0.6); MONO % 10.5 % (1.0-6.0); RBC 3.25 10^6/uL (3.5-6.1); WHITE BLOOD COUNT 8.1 10^3/uL (4.5-11.0)
[2018-06-27 15:23] LABS: ALB/GLOB RATIO 1.8 (1.1-1.8); ALBUMIN 4.3 g/dL (3.0-4.8); ALT/SGPT 41 U/L (7-56); AST/SGOT 38 U/L (17-59); B-TYPE NATRIURETIC PEPTIDE 891 pg/mL (0-450); BLOOD UREA NITROGEN 23 mg/dL (7-21); CALCIUM 9.7 mg/dL (8.4-10.5); GFR NON-AFRICAN AMERICAN > 60; TROPONIN I < 0.01 ng/mL
--- NOTE | 2018-06-27 15:24 | RAD ---
Date of service: 06/27/2018 HISTORY: copd, cough/wheezing COMPARISON: 06/17/2018 FINDINGS: LUNGS: No active pulmonary disease. PLEURA: No significant pleural effusion identified, no pneumothorax apparent. CARDIOVASCULAR: No aortic atherosclerotic calcification present. Normal cardiac size. No pulmonary vascular congestion. OSSEOUS STRUCTURES: Sternal wires VISUALIZED UPPER ABDOMEN: Normal. OTHER FINDINGS: None. IMPRESSION: No active disease.
--- NOTE | 2018-06-27 16:14 | CARD ---
APPROVED REPORT Date of service: 06/27/2018 EKG Measurement Heart [id number] <Conclusion> Sinus tachycardia Otherwise normal ECG
[2018-06-27 17:27] VITALS: RESP 20
[2018-06-27 17:52] VITALS: BP 108/60; PULSE 88; TEMP 98.1; O2SAT 97
== END 2018-06-27 17:33 | disposition home or self-care (01) ==
LOC: ED 14:05
DX: J44.1 Chronic obstructive pulmonary disease with (acute) exacerbation (principal); I25.10 Atherosclerotic heart disease of native coronary artery without angina pectoris; I10 Essential (primary) hypertension; Z95.1 Presence of aortocoronary bypass graft; Z95.5 Presence of coronary angioplasty implant and graft; F17.210 Nicotine dependence, cigarettes, uncomplicated
CPT/HCPCS: 71045; 80053; 83735; 83880; 84484; 85025; 93005; 94640; 96360; 96361; 99285; J7030

== ENCOUNTER 2018-06-30 07:51 | Emergency (ER) | payer MEDICARE, MEDICAID ==
[2018-06-30 07:52] VITALS: BMI 22.5
[2018-06-30] MEDS ORDERED: Levalbuterol 0.63 MG/3 ML Inhal Soln UD IH STA (08:16)
[2018-06-30] MEDS ORDERED: diltiaZEM IVPB 100mg in NS 100 ML IV PRN (08:18)
--- NOTE | 2018-06-30 08:22 | ED PDOC ---
Arrival/HPI - General Chief Complaint: Shortness Of Breath Time Seen by Provider: 06/30/18 08:04 Historian: Patient - History of Present Illness Narrative History of Present Illness (Text): 06/30/18 08:18 A 63 year old male, whose past medical history includes hypertension, CAD with cardiac stent, pneumothorax, COPD, hyperkalemia, allergic to sulfa, presents to the emergency department complaining of shortness of breath and chest pain starting at 07:30 this morning. Patient reports he was already awake at the time. Admits to drinking alcohol. Patient denies any other complaints at this time. PMD: Dr. Damon Time/Duration: Other (07:30) Past Medical History - Provider Review Nursing Documentation Reviewed: Yes - Past History Past History: No Previous - Infectious Disease Hx of Infectious Diseases: None - Tetanus Immunization Tetanus Immunization: Unknown - Reproductive Currently Lactating: No - Cardiac Hx Cardiac Disorders: Yes (CAD s/p stent after [place] in 03/2018) Hx Hypertension: Yes - Pulmonary Hx Respiratory Disorders: Yes Hx Chronic Obstructive Pulmonary Disease (COPD): Yes - Neurological Hx Neurological Disorder: Yes (peripheral neuropathy) Hx Dizziness: Yes Hx Migraine: Yes Hx Transient Ischemic Attacks (TIA): Yes Other/Comment: b/l legs burning numbnes, tingling - HEENT Hx HEENT Disorder: Yes (eyeglasses, r eye lazy eye) Hx Cataracts: Yes - Renal Hx Renal Disorder: Yes Hx Kidney Stones: Yes - Endocrine/Metabolic Hx Endocrine Disorders: No - Hematological/Oncological Hx Blood Disorders: Yes Hx Anemia: Yes - Integumentary Hx Dermatological Disorder: Yes - Musculoskeletal/Rheumatological Hx Musculoskeletal Disorders: Yes Hx Arthritis: Yes - Gastrointestinal Hx Gastrointestinal Disorders: Yes (COLITIS,DIVERTICULOSIS) Hx Gall Bladder Disease: Yes (gallstones) Hx Gastroesophageal Reflux: Yes - Genitourinary/Gynecological Hx Genitourinary Disorders: Yes Hx Urinary Tract Infection: Yes - Psychiatric Hx Anxiety: Yes Hx Depression: Yes Hx Post Traumatic Stress Disorder: Yes Hx Substance Use: Yes (COCAINE,HEROIN,MARIJUANA USE. H/O.DENIES RECENT USE.) Other/Comment: quit smoking 1 week ago, [facility] mental [facility],etoh abuse quit drinking sober 1 yr 6 months relapsed 04/03/18 then stopped again, personality disorder, smokes pot occasionally but quit heroin cocaine in , criminal charges in past, lives at [facility] - Surgical History Hx Cardiac Catheterization: Yes (CORONARY STENT) Hx Cholecystectomy: Yes Hx Coronary Stent: Yes Hx Open Heart Surgery: Yes (triple bypass) - Anesthesia Hx Anesthesia: Yes Hx Anesthesia Reactions: No Hx Malignant Hyperthermia: No - Suicidal Assessment Feels Threatened In Home Enviroment: No Family/Social History - Physician Review Nursing Documentation Reviewed: Yes Family/Social History: No Known Family HX Smoking Status: Current Some Days Smoker Hx Alcohol Use: Yes (RELAPSED 04-03-18) Hx Substance Use: Yes (COCAINE,HEROIN,MARIJUANA USE. H/O.DENIES RECENT USE.) Substance used: HEROIN, MARIJUANA Hx Substance Use Treatment: No Allergies/Home Meds Allergies/Adverse Reactions: Allergies FISH Allergy (Verified 06/30/18 08:01) ITCHING shellfish derived Allergy (Verified 06/30/18 08:01) ANAPHYLAXIS Sulfa (Sulfonamide Antibiotics) Allergy (Verified 06/30/18 08:01) RASH Home Medications: Home Meds Medication Instructions Recorded Confirmed Aspirin [Low Dose Aspirin EC] 81 mg PO DAILY 04/04/18 06/30/18 Montelukast [Singulair] 10 mg PO DAILY 04/04/18 06/30/18 Folic Acid 1 mg PO DAILY 05/04/18 06/30/18 Isosorbide Mononitrate ER [Imdur 30 mg PO DAILY 05/04/18 06/30/18 ER] Carvedilol 3.125 mg PO DAILY 05/05/18 06/30/18 Fluticasone/Salmeterol 1 inh INH DAILY 06/17/18 06/30/18 [Fluticasone-Salmeterol 232-14] Omeprazole 40 mg PO DAILY 06/17/18 06/30/18 Review of Systems - Physician Review All systems were reviewed & negative as marked: Yes - Review of Systems Constitutional: absent: Fevers Respiratory: SOB, Wheezing Cardiovascular: Chest Pain Physical Exam - Physical Exam Narrative Physical Exam (Text): Gen: VS reviewed, alert, well developed, tachypneic, intoxicated, mild distress. ENT: normal pharynx. Eye: EOMI, PERRL. Neck: no JVD, supple, no adenopathy. CV: rapid rate, irregular rhythm, no rubs, no murmur, no gallops, S1, S2, pulses equal and strong. Pulm: no distress, clear to auscultation, good air exchange bilaterally, mild bilateral expiratory wheeze, no rhonchi, breath sounds equal, no rales. Abd: soft, nontender, no guarding, no rebound, no rigidity, normal bowel sounds. Ext: no edema. Skin: good color, no rash, no cyanosis. Psych: responds appropriately to questions, normal affect. Neuro: oriented x 3, CN2-12 intact grossly, motor intact, sensation intact. Medical Decision Making ED Course and Treatment: 06/30/18 08:15 Impression: 63 year old male with shortness of breath and chest pain. Plan: -- EKG -- Chest X-ray -- Labs -- Tylenol -- Cardizem -- Xopenex -- SOLU-Medrol -- Reassess and disposition Prior Visits: Notes and results from previous visits were reviewed. Patient was last seen in the emergency department on 06/27/2018 for cough, wheezing, and fatigue. Patient was discharged home with diagnosis of COPD exacerbation. Progress Notes: 06/30/18 08:03 EKG: Ordered, reviewed, and independently interpreted the EKG. Rate : 126 BPM Rhythm : Atrial Flutter Interpretation : Variable AV block, artifact. Comparison : No previous EKG for comparison. 06/30/18 09:03 AMA: ADMIT NEEDED The patient refuses admission and wishes to leave the Emergency Department against my medical advice. Patient was told that admission to the hospital is necessary and a full explanation of the reasons why was given, and understood by patient. The risks of leaving were explained and include worsening of condition, and permanent disability and from an undiagnosed or untreated condition. The patient accepts these risks, and is in my judgement is competent and capable of understanding the clinical situation and my explanation of the risks of leaving. Despite the alcohol documented in bloodwork, patient is clinically sober, has clear speech at this time and is steady on his feet. Patient has been rude and verbally to staff and nonstop cursing since he hasnt got a a dose of morphine. Patient was given the opportunity to ask questions and change mind. The patient was instructed regarding the best care for the present symptoms, and to follow up with his pcp as soon as possible, or return to the Emergency Department at any time for continuing care. - Lab Interpretations I have reviewed the lab results: Yes - RAD Interpretation Radiology Orders: 06/30/18 08:09 CHEST PORTABLE [RAD] Stat - Scribe Statement The provider has reviewed the documentation as recorded by the Arina Nichols Provider Sarahibe Attestation: All medical record entries made by the Scribe were at my direction and personally dictated by me. I have reviewed the chart and agree that the record accurately reflects my personal performance of the history, physical exam, medical decision making, and the department course for this patient. I have also personally directed, reviewed, and agree with the discharge instructions and disposition. Disposition/Present on Arrival - Present on Arrival Any Indicators Present on Arrival: No History of DVT/PE: No History of Uncontrolled Diabetes: No Urinary Catheter: No History of Decub. Ulcer: No History Surgical Site Infection Following: CABG - Mediastinitis - Disposition Have Diagnosis and Disposition been Completed?: Yes Diagnosis: Chest pain, CHF (congestive heart failure), Atrial flutter Disposition: AGAINST MEDICAL ADVICE Disposition Time: 09:07 Condition: GUARDED Discharge Instructions (ExitCare): Atrial Flutter (DC), Heart Failure (ED) Additional Instructions: Follow up with your doctor. You need to be admitted to the hospital. KAELYN GIORDANO, thank you for letting us take care of you today. Your provider was Dr. Derrick Olsen and you were treated for chest pain The emergency medical care you received today was directed at your acute symptoms. If you were prescribed any medication, please fill it and take as directed. It may take several days for your symptoms to resolve. Return to the Emergency Department if your symptoms worsen, do not improve, or if you have any other problems. Please contact your doctor or call one of the physicians/clinics you have been referred to that are listed on the Patient Visit Information form that is included in your discharge packet. Bring any paperwork you were given at discharge with you along with any medications you are taking to your follow up visit. Our treatment cannot replace ongoing medical care by a primary care provider outside of the emergency department. Thank you for allowing the [facility] team to be part of your care today. If you had an X-Ray or CT scan: A Radiologist will review the ED reading if any change in treatment is needed we will contact you. If you had a blood, urine, or wound culture: It will take several days for the results, if any change in treatment is needed we will contact you. If you had an STI test: It will take 48 hours for the results. Please call after 1 week if you have not heard back. Referrals: Lauren Damon V, [Family Provider] - Follow up with primary Forms: [employer] (Djiboutian)
[2018-06-30 08:26] LABS: BASO # 0.01 K/mm3 (0.0-2.0); BASO % 0.1 % (0.0-3.0); EOS % 0.1 % (1.5-5.0); GRAN # 7.15 (1.4-6.5); GRAN % 58.8 % (50.0-68.0); HEMOGLOBIN 11.6 g/dL (14.0-18.0); LYMPH # 3.7 (1.2-3.4); LYMPH % 30.6 % (22.0-35.0); MEAN CELL VOLUME 98.3 fl (80.0-105.0); MEAN CORPUSCULAR HEMOGLOBIN 32.8 pg (25.0-35.0); MEAN CORPUSCULAR HGB CONC 33.3 g/dl (31.0-37.0); MEAN PLATELET VOLUME 8.5 fl (7.0-11.0); MONO # 1.3 (0.1-0.6); MONO % 10.4 % (1.0-6.0); RBC 3.54 10^6/uL (3.5-6.1); RED CELL DISTRIBUTION WIDTH 15.8 % (11.5-14.5); WHITE BLOOD COUNT 12.2 10^3/uL (4.5-11.0)
[2018-06-30 08:38] LABS: INR 0.87; PARTIAL THROMBOPLASTIN TIME 24.6 Seconds (25.1-36.5)
[2018-06-30 08:39] LABS: ALB/GLOB RATIO 1.6 (1.1-1.8); ALBUMIN 4.3 g/dL (3.0-4.8); ALT/SGPT 30 U/L (7-56); AST/SGOT 53 U/L (17-59); BLOOD UREA NITROGEN 23 mg/dL (7-21); CALCIUM 9.2 mg/dL (8.4-10.5); GFR NON-AFRICAN AMERICAN > 60
[2018-06-30 08:48] LABS: B-TYPE NATRIURETIC PEPTIDE 966 pg/mL (0-450); TROPONIN I 0.03 ng/mL
--- NOTE | 2018-06-30 09:47 | RAD ---
Date of service: 06/30/2018 HISTORY: chest pain COMPARISON: Comparison is made with 06/27/2018 FINDINGS: LUNGS: No active pulmonary disease. PLEURA: No significant pleural effusion identified, no pneumothorax apparent. CARDIOVASCULAR: No aortic atherosclerotic calcification present. Normal cardiac size. No pulmonary vascular congestion. OSSEOUS STRUCTURES: Suspicious for subacute left lower ribs fractures. VISUALIZED UPPER ABDOMEN: Normal. OTHER FINDINGS: None. IMPRESSION: No significant interval changes noted since the previous exam.
--- NOTE | 2018-06-30 18:01 | CARD ---
APPROVED REPORT Date of service: 06/30/2018 EKG Measurement Heart [id number] P268 [id number] <Conclusion> Atrial flutter with variable AV block Nonspecific ST abnormality Abnormal ECG
== END 2018-06-30 09:31 | disposition left against medical advice (07) ==
LOC: ED 07:51
DX: I11.0 Hypertensive heart disease with heart failure (principal); I25.10 Atherosclerotic heart disease of native coronary artery without angina pectoris; I25.2 Old myocardial infarction; I48.92 Unspecified atrial flutter; I50.9 Heart failure, unspecified; R07.9 Chest pain, unspecified; J44.9 Chronic obstructive pulmonary disease, unspecified; Z86.73 Personal history of transient ischemic attack (TIA), and cerebral infarction without residual deficits; Z95.5 Presence of coronary angioplasty implant and graft; F17.210 Nicotine dependence, cigarettes, uncomplicated
CPT/HCPCS: 71045; 80053; 83735; 83880; 84443; 84484; 85025; 85610; 85730; 93005; 96374; 99281; G0480; J2930

== ENCOUNTER 2018-06-30 09:55 | Emergency (ER) | payer MEDICARE, MEDICAID ==
[2018-06-30 10:06] VITALS: BMI 23.4
[2018-06-30 10:07] VITALS: BP 173/69; PULSE 112; RESP 20; TEMP 98.1; O2SAT 94
--- NOTE | 2018-06-30 10:09 | ED PDOC ---
Arrival/HPI - General Time Seen by Provider: 06/30/18 10:02 Historian: Patient - History of Present Illness Narrative History of Present Illness (Text): 06/30/18 10:11 A 63 year old male, whose past medical history includes hypertension, CAD with cardiac stent, pneumothorax, COPD, hyperkalemia, allergic to sulfa, returns to the ER due to feeling dizziness and and having difficulty ambulating. Patient was just seen here for shortness of breath and chest pain starting at 07:30 this morning. Patient had decided to leave against medical advice, and returns to ER instead shortly afterwards. PMD: Dr. Damon Past Medical History - Provider Review Nursing Documentation Reviewed: Yes - Past History Past History: No Previous - Infectious Disease Hx of Infectious Diseases: None - Tetanus Immunization Tetanus Immunization: Unknown - Reproductive Currently Lactating: No - Cardiac Hx Cardiac Disorders: Yes (CAD s/p stent after [place] in 03/2018) Hx Hypertension: Yes - Pulmonary Hx Respiratory Disorders: Yes Hx Chronic Obstructive Pulmonary Disease (COPD): Yes - Neurological Hx Neurological Disorder: Yes (peripheral neuropathy) Hx Dizziness: Yes Hx Migraine: Yes Hx Transient Ischemic Attacks (TIA): Yes Other/Comment: b/l legs burning numbnes, tingling - HEENT Hx HEENT Disorder: Yes (eyeglasses, r eye lazy eye) Hx Cataracts: Yes - Renal Hx Renal Disorder: Yes Hx Kidney Stones: Yes - Endocrine/Metabolic Hx Endocrine Disorders: No - Hematological/Oncological Hx Blood Disorders: Yes Hx Anemia: Yes - Integumentary Hx Dermatological Disorder: Yes - Musculoskeletal/Rheumatological Hx Musculoskeletal Disorders: Yes Hx Arthritis: Yes - Gastrointestinal Hx Gastrointestinal Disorders: Yes (COLITIS,DIVERTICULOSIS) Hx Gall Bladder Disease: Yes (gallstones) Hx Gastroesophageal Reflux: Yes - Genitourinary/Gynecological Hx Genitourinary Disorders: Yes Hx Urinary Tract Infection: Yes - Psychiatric Hx Anxiety: Yes Hx Depression: Yes Hx Post Traumatic Stress Disorder: Yes Hx Substance Use: Yes (COCAINE,HEROIN,MARIJUANA USE. H/O.DENIES RECENT USE.) Other/Comment: quit smoking 1 week ago, community mental health,etoh abuse quit drinking sober 1 yr 6 months relapsed 04/03/18 then stopped again, personality disorder, smokes pot occasionally but quit heroin cocaine in , criminal charges in past, lives at [facility] - Surgical History Hx Cardiac Catheterization: Yes (CORONARY STENT) Hx Cholecystectomy: Yes Hx Coronary Stent: Yes Hx Open Heart Surgery: Yes (triple bypass) - Anesthesia Hx Anesthesia: Yes Hx Anesthesia Reactions: No Hx Malignant Hyperthermia: No - Suicidal Assessment Feels Threatened In Home Enviroment: No Family/Social History - Physician Review Nursing Documentation Reviewed: Yes Family/Social History: No Known Family HX Smoking Status: Current Some Days Smoker Hx Alcohol Use: Yes (RELAPSED 04-03-18) Hx Substance Use: Yes (COCAINE,HEROIN,MARIJUANA USE. H/O.DENIES RECENT USE.) Substance used: HEROIN, MARIJUANA Hx Substance Use Treatment: No Allergies/Home Meds Allergies/Adverse Reactions: Allergies FISH Allergy (Verified 06/30/18 08:01) ITCHING shellfish derived Allergy (Verified 06/30/18 08:01) ANAPHYLAXIS Sulfa (Sulfonamide Antibiotics) Allergy (Verified 06/30/18 08:01) RASH Home Medications: Home Meds Medication Instructions Recorded Confirmed RX: Aspirin [Low Dose Aspirin EC] 81 mg PO DAILY 04/04/18 06/30/18 RX: Montelukast [Singulair] 10 mg PO DAILY 04/04/18 06/30/18 RX: Folic Acid 1 mg PO DAILY 05/04/18 06/30/18 RX: Isosorbide Mononitrate ER 30 mg PO DAILY 05/04/18 06/30/18 [Imdur ER] Carvedilol 3.125 mg PO DAILY 05/05/18 06/30/18 RX: Fluticasone/Salmeterol 1 inh INH DAILY 06/17/18 06/30/18 [Fluticasone-Salmeterol 232-14] RX: Omeprazole 40 mg PO DAILY 06/17/18 06/30/18 Review of Systems - Physician Review All systems were reviewed & negative as marked: Yes - Review of Systems Constitutional: absent: Fevers Neurological: Dizziness, Other (unable to ambulate) Physical Exam - Physical Exam Narrative Physical Exam (Text): 06/30/18 10:15 Gen: VS reviewed, alert, well developed, tachypneic, intoxicated, mild distress. ENT: normal pharynx. Eye: EOMI, PERRL. Neck: no JVD, supple, no adenopathy. CV: rapid rate, irregular rhythm, no rubs, no murmur, no gallops, S1, S2, pulses equal and strong. Pulm: no distress, clear to auscultation, good air exchange bilaterally, mild bilateral expiratory wheeze, no rhonchi, breath sounds equal, no rales. Abd: soft, nontender, no guarding, no rebound, no rigidity, normal bowel sounds. Ext: no edema. Skin: good color, no rash, no cyanosis. Psych: responds appropriately to questions, normal affect. Neuro: oriented x 3, CN2-12 intact grossly, motor intact, sensation intact. Vital Signs Temp Pulse Resp BP Pulse Ox 06/30/18 10:06 98.1 F 112 H 20 173/69 H 94 L Medical Decision Making ED Course and Treatment: 06/30/18 10:13 multiple attempts to talk and reason with patient. patient continues to verbally abuse staff, yelling expletives repeatedly. patient walked out of the Emergency department prior to disposition. patient of clear mind and sensorium was informed and understood the necessity to admit to the hospital but he refused to cooperate. - EKG Interpretation EKG Interpretation (Text): 06/30/18 09:55 atrial flutter at 125 bpm, variable av block, nml qrs, nml axis Interpreted by ED Physician: Yes - Scribe Statement The provider has reviewed the documentation as recorded by the Arina Nichols Provider Scribe Attestation: All medical record entries made by the Scribe were at my direction and personally dictated by me. I have reviewed the chart and agree that the record accurately reflects my personal performance of the history, physical exam, medical decision making, and the department course for this patient. I have also personally directed, reviewed, and agree with the discharge instructions and disposition. Disposition/Present on Arrival - Present on Arrival Any Indicators Present on Arrival: No History of DVT/PE: No History of Uncontrolled Diabetes: No Urinary Catheter: No History Surgical Site Infection Following: CABG - Mediastinitis - Disposition Have Diagnosis and Disposition been Completed?: Yes Diagnosis: Wheezing, Atrial flutter, CHF (congestive heart failure) Disposition: ELOPEMENT - ER ONLY Disposition Time: 10:13 Condition: GUARDED Discharge Instructions (ExitCare): Heart Failure (ED)
--- NOTE | 2018-06-30 17:46 | CARD ---
APPROVED REPORT Date of service: 06/30/2018 EKG Measurement Heart [id number] P266 [id number] <Conclusion> Atrial flutter with variable AV block Abnormal ECG
== END 2018-06-30 14:49 | disposition left against medical advice (07) ==
LOC: ED 09:55
DX: I11.0 Hypertensive heart disease with heart failure (principal); I25.10 Atherosclerotic heart disease of native coronary artery without angina pectoris; I25.2 Old myocardial infarction; I48.92 Unspecified atrial flutter; I50.9 Heart failure, unspecified; R06.2 Wheezing; J44.9 Chronic obstructive pulmonary disease, unspecified; Z86.73 Personal history of transient ischemic attack (TIA), and cerebral infarction without residual deficits; Z95.5 Presence of coronary angioplasty implant and graft; F17.210 Nicotine dependence, cigarettes, uncomplicated

== ENCOUNTER 2018-07-03 06:34 | Inpatient (IN) | payer MEDICARE, MEDICAID ==
[2018-07-03 06:34] VITALS: BMI 23.4
[2018-07-03] MEDS ORDERED: Albuterol-Ipratrop 3 mg / 0.5 (3 ml) UD ONE (06:46)
[2018-07-03] MEDS ORDERED: Albuterol-Ipratrop 3 mg / 0.5 (3 ml) UD IH STA (07:06)
--- NOTE | 2018-07-03 07:16 | ED PDOC ---
Arrival/HPI - General Chief Complaint: Respiratory Distress Time Seen by Provider: 07/03/18 06:54 Historian: Patient - History of Present Illness Narrative History of Present Illness (Text): 07/03/18 07:36 63 year old M w/ h/o hypertension, COPD, TIA, alcohol/polysubstance s/p stents abuse presenting to the Emergency Room with complaint of shortness of breath. Per the patient, he awakened this morning to pass a bowel movement he noted to be dark in hue and reports bilateral swelling of the neck with dyspnea at rest. He reports scrotal swelling the previous day that was self-limited in nature. The patient admits to previously being admitted to the hospital on 06/17/18 for persistent COPD exacerbation in which he was noted to be hyponatremic secondary to SIADH. He reports being intermittently on antibiotics for the past 3 weeks, but is unable to recall which ones. He reports associated subjective fevers, wheezing, non-productive cough, but denies headache, chest pain, back pain, syncopal episodes, dysuria, hematuria or constipation. PCP: Dr. Damon Time/Duration: Prior to Arrival Symptom Onset: Sudden Symptom Course: Improving Quality: Tightness Severity Level: Moderate Activities at Onset: Rest Context: Home Past Medical History - Provider Review Nursing Documentation Reviewed: Yes - Travel History Have you recently traveled outside [place] w/in the past 3 mons?: No - Past History Past History: No Previous - Infectious Disease Hx of Infectious Diseases: None - Tetanus Immunization Tetanus Immunization: Unknown - Reproductive Currently Lactating: No - Cardiac Hx Cardiac Disorders: Yes (CAD s/p stent after [facility] in 03/2018) Hx Hypertension: Yes - Pulmonary Hx Respiratory Disorders: Yes Hx Chronic Obstructive Pulmonary Disease (COPD): Yes - Neurological Hx Neurological Disorder: Yes (peripheral neuropathy) Hx Dizziness: Yes Hx Migraine: Yes Hx Transient Ischemic Attacks (TIA): Yes Other/Comment: b/l legs burning numbnes, tingling - HEENT Hx HEENT Disorder: Yes (eyeglasses, r eye lazy eye) Hx Cataracts: Yes - Renal Hx Renal Disorder: Yes Hx Kidney Stones: Yes - Endocrine/Metabolic Hx Endocrine Disorders: No - Hematological/Oncological Hx Blood Disorders: Yes Hx Anemia: Yes - Integumentary Hx Dermatological Disorder: Yes - Musculoskeletal/Rheumatological Hx Musculoskeletal Disorders: Yes Hx Arthritis: Yes - Gastrointestinal Hx Gastrointestinal Disorders: Yes (COLITIS,DIVERTICULOSIS) Hx Gall Bladder Disease: Yes (gallstones) Hx Gastroesophageal Reflux: Yes - Genitourinary/Gynecological Hx Genitourinary Disorders: Yes Hx Urinary Tract Infection: Yes - Psychiatric Hx Anxiety: Yes Hx Depression: Yes Hx Post Traumatic Stress Disorder: Yes Hx Substance Use: Yes (COCAINE,HEROIN,MARIJUANA USE. H/O.DENIES RECENT USE.) Other/Comment: quit smoking 1 week ago, community mental health,etoh abuse quit drinking sober 1 yr 6 months relapsed 04/03/18 then stopped again, personality disorder, smokes pot occasionally but quit heroin cocaine in , criminal charges in past, lives at [facility] - Surgical History Hx Cardiac Catheterization: Yes (CORONARY STENT) Hx Cholecystectomy: Yes Hx Coronary Stent: Yes Hx Open Heart Surgery: Yes (triple bypass) - Anesthesia Hx Anesthesia: Yes Hx Anesthesia Reactions: No Hx Malignant Hyperthermia: No - Suicidal Assessment Feels Threatened In Home Enviroment: No Family/Social History - Physician Review Nursing Documentation Reviewed: Yes Family/Social History: Unknown Family HX Smoking Status: Current Some Days Smoker Hx Alcohol Use: Yes (RELAPSED 04-03-18) Hx Substance Use: Yes (COCAINE,HEROIN,MARIJUANA USE. H/O.DENIES RECENT USE.) Substance used: HEROIN, MARIJUANA Hx Substance Use Treatment: No Allergies/Home Meds Allergies/Adverse Reactions: Allergies EVE Inhibitors Allergy (Verified 07/04/18 11:00) SWELLING FISH Allergy (Verified 06/30/18 08:01) ITCHING shellfish derived Allergy (Verified 06/30/18 08:01) ANAPHYLAXIS Sulfa (Sulfonamide Antibiotics) Allergy (Verified 06/30/18 08:01) RASH Home Medications: Home Meds Medication Instructions Recorded Confirmed RX: Aspirin [Low Dose Aspirin EC] 81 mg PO DAILY 04/04/18 07/03/18 RX: Folic Acid 1 mg PO DAILY 05/04/18 07/03/18 RX: Isosorbide Mononitrate ER 30 mg PO DAILY 05/04/18 07/03/18 [Imdur ER] RX: Fluticasone/Salmeterol 1 inh INH DAILY 06/17/18 07/03/18 [Fluticasone-Salmeterol 232-14] RX: Omeprazole 40 mg PO DAILY 06/17/18 07/03/18 Carvedilol [Coreg] 3.125 mg PO DAILY 07/03/18 07/03/18 Review of Systems - Physician Review All systems were reviewed & negative as marked: Yes - Review of Systems Respiratory: SOB, Cough, Wheezing Cardiovascular: MEZA. absent: Chest Pain, Palpitations, Edema Gastrointestinal: Abdominal Pain (secondary to administration of Lovenox), Stool Changes. absent: Diarrhea, Hematochezia, Hematemesis Physical Exam Vital Signs Reviewed: Yes Vital Signs Temp Pulse Resp BP Pulse Ox 07/03/18 06:45 98.2 F 107 H 23 180/90 H 100 Temperature: Afebrile Blood Pressure: Hypertensive Pulse: Tachycardic Respiratory Rate: Tachypneic Appearance: Positive for: Non-Toxic, Comfortable, Unkept Mental Status: Positive for: Alert and Oriented X 3 - Systems Exam Head: Present: Atraumatic, Normocephalic Pupils: Present: PERRL Extroacular Muscles: Present: EOMI Conjunctiva: Present: Normal Mouth: Present: Dry, Other (poor dentition) Neck: Present: Normal Range of Motion, Other (bilateral swelling of parotids homogenous in nature. Slight crepitus noted, no fluctuance or induration palpated) Respiratory/Chest: Present: Wheezes, Rhonchi, Tachypneic Cardiovascular: Present: Tachycardic Abdomen: Present: Distention, Normal Bowel Sounds, Other (scattered ecchymosis noted on the anterior abdominal wall). No: Tenderness Rectal: Present: Hemorrhoids, Normal Rectal Tone, Other (internal hemorrhoids palpated with dark stool yielded from rectal vault. Hemeoccult postive). No: Rectal Tenderness, Gross Blood Genitourinary Male: Present: Normal External Genitalia, Circumcised Penis. No: Penile Swelling, Erythema, Testicle Swelling Upper Extremity: Present: Capillary Refill < 2s. No: Swelling Lower Extremity: Present: Normal Inspection, Capillary Refill < 2 s. No: Swelling Neurological: Present: GCS=15, CN II-XII Intact, Speech Normal Skin: Present: Warm, Dry, Normal Color Lymphatic: Present: Cervical Adenopathy Psychiatric: Present: Alert, Oriented x 3, Normal Insight Medical Decision Making ED Course and Treatment: 07/03/18 08:05 Impression 63 year old M presenting with neck swelling and dyspnea Differential Diagnoses Include But Are Not Limited To: --COPD exacerbation --ACS --PNA --Allergic Reaction Plan --Labs --CT neck --CT chest --CXR --ABG --VBG --NSS --Urinalysis --Urine Culture --Blood Culture --Duonebs --Solumedrol --SQ ephinephrine --Pepcid --Reassess & Disposition Progress Notes 07/03/18 08:08 Upon further interrogation, patient mentions he had a meal of steak and lobster last night and is aware he has a shell-fish allergy. He complains of pharyngeal pruritis. SQ ephinephrine ordered for presumed allergic reaction. 07/03/18 08:40 Leukocytosis noted to be 17.8 with tachycardia of 101 & suspected neck abscess. Elevated BNP. Thyroid function studies negative. Urinalysis negative for nitr ites/ esterases. Code Sepsis called. Patient off the unit to CT scan. Will administer antibiotics upon return. 07/03/18 09:50 Patient started on Unasyn. CT soft tissue neck shows localized edema consistent w/ possible cellulitis and no evidence of subcutaneous emphysema. CT chest reveals no focal infiltrates. Case discussed with Dr. Ramirez(hospitalist), who is aware and agrees with the plan to admit the patient to remote Telemetry. - Lab Interpretations Lab Results: 07/03/18 06:58 07/03/18 06:58 Lab Results 07/03/18 08:00: Urine Color Yellow, Urine Appearance Clear, Urine pH 6.0, Ur Specific [place] 1.015, Urine Protein Negative, Urine Glucose (UA) Negative, Urine Ketones Negative, Urine Blood Negative, Urine Nitrate Negative, Urine Bilirubin Negative, Urine Urobilinogen 0.2, Ur Leukocyte Esterase Negative 07/03/18 07:40: pCO2 39, pO2 61.0 L, HCO3 29.7 H, ABG pH 7.49 H, ABG Total CO2 30.9 H, ABG O2 Saturation 95.3, ABG O2 Content 14.0 L, ABG Base Excess 5.9 H, ABG Hemoglobin 10.8 L, ABG Carboxyhemoglobin 2.7 H, POC ABG HHb (Measured) 4.5, ABG Methemoglobin 1.1, ABG O2 Capacity 14.7 L, Hgb O2 Saturation 91.8 L, FiO2 21.0 07/03/18 07:30: Ammonia 10 07/03/18 07:30: pO2 57 H, VBG pH 7.41, VBG pCO2 50.0, VBG HCO3 31.7 H, VBG Total CO2 33.2 H, VBG O2 Sat (Calc) 92.2 H, VBG Base Excess 5.8 H, VBG Potassium 4.2, Glucose 83, Lactate 1.2, FiO2 21.0, Sodium 133.0, Chloride 98.0, Venous Blood Potassium 4.2 07/03/18 06:58: Free T4 1.06, TSH 3rd Generation 3.25 07/03/18 06:58: PT 10.5, INR 0.91, APTT 21.5 L 07/03/18 06:58: Sodium 132, Potassium 4.7, Chloride 97 L, Carbon Dioxide 29, Anion Gap 10, BUN 19, Creatinine 0.7 L, Est GFR ( Amer) > 60, Est GFR (Non-Af Amer) > 60, Random Glucose 83, Calcium 9.1, Magnesium 2.2, Total Bilirubin 0.5, AST 72 H D, ALT 42, Alkaline Phosphatase 54, Troponin I 0.07 D, NT-Pro-B Natriuret Pep 2410 H, Total Protein 6.9, Albumin 4.2, Globulin 2.7, Albumin/Globulin Ratio 1.6 07/03/18 06:58: WBC 17.3 H D, RBC 3.46 L, Hgb 11.3 L, Hct 34.3 L, MCV 99.1, MCH 32.7, MCHC 32.9, RDW 16.1 H, Plt Count 315, MPV 8.9, Gran % 68.9 H, Lymph % (Auto) 21.9 L, [place] % (Auto) 9.2 H, Eos % (Auto) 0.0 L, Baso % (Auto) 0.0, Gran # 11.91 H, Lymph # (Auto) 3.8 H, [place] # (Auto) 1.6 H, Eos # (Auto) 0.0, Baso # (Auto) 0.00 I have reviewed the lab results: Yes - RAD Interpretation Narrative RAD Interpretations (Text): 07/03/18 09:[address] reviewed, shows: Impression: Limited examination in the absence of intravenous contrast. Allowing for this, no bulky neck mass. Mild soft tissue swelling and subcutaneous fat stranding in the anterior neck and surrounding the parotid glands, nonspecific and could represent edema of cellulitis in the appropriate clinical setting. No evidence for soft tissue emphysema. Chest CT reviewed, shows: Impression: No acute findings. 07/03/18 11:31 Chest X-ray reviewed, shows: Impression: No active pulmonary disease. Radiology Orders: 07/03/18 07:07 CHEST PORTABLE [RAD] Stat 07/03/18 07:09 CHEST W/O CONTRAST [CT] Stat NECK SOFT TISSUE W/O CONTRAST [CT] Stat Iridologist: Radiologist - EKG Interpretation EKG Interpretation (Text): 07/03/18 13:37 EKG reviewed, shows: Sinus 107 bpm with LVH no T wave inversions. QTs intervals normal. Interpreted by ED Physician: Yes Type: 12 lead EKG - Medication Orders Current Medication Orders: Discontinued Medications Albuterol/Ipratropium (Duoneb 3 Mg/0.5 Mg (3 Ml) Ud) 3 ml IH STAT STA Stop: 07/03/18 07:07 - Scribe Statement The provider has reviewed the documentation as recorded by the Arina Rivera Provider Scribe Attestation: All medical record entries made by the Arina were at my direction and personally dictated by me. I have reviewed the chart and agree that the record accurately reflects my personal performance of the history, physical exam, medical decision making, and the department course for this patient. I have also personally directed, reviewed, and agree with the discharge instructions and disposition. Disposition/Present on Arrival - Present on Arrival Any Indicators Present on Arrival: No History of DVT/PE: No History of Uncontrolled Diabetes: No Urinary Catheter: No History of Decub. Ulcer: No History Surgical Site Infection Following: CABG - Mediastinitis - Disposition Have Diagnosis and Disposition been Completed?: Yes Diagnosis: Allergic reaction Disposition: HOSPITALIZED Disposition Time: 09:50 Patient Plan: Admission Condition: GOOD
[2018-07-03 07:22] LABS: GRAN # 11.91 (1.4-6.5); GRAN % 68.9 % (50.0-68.0); HEMOGLOBIN 11.3 g/dL (14.0-18.0); LYMPH # 3.8 (1.2-3.4); LYMPH % 21.9 % (22.0-35.0); MEAN CELL VOLUME 99.1 fl (80.0-105.0); MEAN CORPUSCULAR HEMOGLOBIN 32.7 pg (25.0-35.0); MEAN CORPUSCULAR HGB CONC 32.9 g/dl (31.0-37.0); MEAN PLATELET VOLUME 8.9 fl (7.0-11.0); MONO # 1.6 (0.1-0.6); MONO % 9.2 % (1.0-6.0); RBC 3.46 10^6/uL (3.5-6.1); RED CELL DISTRIBUTION WIDTH 16.1 % (11.5-14.5); WHITE BLOOD COUNT 17.3 10^3/uL (4.5-11.0)
[2018-07-03 07:38] LABS: ALB/GLOB RATIO 1.6 (1.1-1.8); ALBUMIN 4.2 g/dL (3.0-4.8); ALT/SGPT 42 U/L (7-56); AST/SGOT 72 U/L (17-59); BLOOD UREA NITROGEN 19 mg/dL (7-21); CALCIUM 9.1 mg/dL (8.4-10.5); GFR NON-AFRICAN AMERICAN > 60
[2018-07-03 07:42] LABS: B-TYPE NATRIURETIC PEPTIDE 2410 pg/mL (0-450); INR 0.91; PARTIAL THROMBOPLASTIN TIME 21.5 Seconds (25.1-36.5); PROTHROMBIN TIME 10.5 SECONDS (9.4-12.5); TROPONIN I 0.07 ng/mL
[2018-07-03 07:48] LABS: ARTERIAL BLOOD GAS HCO3 29.7 mmol/L (21-28); ARTERIAL BLOOD GAS HEMOGLOBIN 10.8 g/dL (11.7-17.4); ARTERIAL BLOOD GAS O2 CAPACITY 14.7 mL/dl (16-24); ARTERIAL BLOOD GAS O2 SAT 95.3 % (95-98); ARTERIAL BLOOD GAS PCO2 39 mm/Hg (35-45); ARTERIAL BLOOD GAS PH 7.49 (7.35-7.45); ARTERIAL BLOOD GAS TCO2 30.9 mmol.L (22-28)
[2018-07-03] MEDS ORDERED: Albuterol 0.083% Inhal Sol (2.5 mg/3 mL) UD INH STA (07:51)
[2018-07-03 07:55] LABS: VENOUS BLOOD GAS BASE EXCESS 5.8 mmol/L (0.0-2.0); VENOUS BLOOD GAS PO2 57 mm/Hg (30-55); VENOUS BLOOD PH 7.41 (7.32-7.43)
[2018-07-03] MEDS ORDERED: EPINEPHrine 1 mg/ml (1:1000) Inj SC STA (07:59)
[2018-07-03] MEDS ORDERED: Sodium Chloride 0.9% 1,000 ML IV STA (08:00)
[2018-07-03 08:12] LABS: FREE T4 1.06 ng/dL (0.78-2.19)
[2018-07-03 08:13] LABS: URINE APPEARANCE CLEAR (CLEAR); URINE BILIRUBIN NEGATIVE (NEGATIVE); URINE BLOOD NEGATIVE (NEGATIVE); URINE COLOR YELLOW (YELLOW); URINE GLUCOSE (UA) NEGATIVE (NEGATIVE); URINE LEUKOCYTE ESTERASE NEGATIVE Leu/uL (NEGATIVE); URINE PROTEIN NEGATIVE mg/dL (<30 mg/dL); URINE UROBILINOGEN 0.2 E.U./dL (<1 E.U./dL)
--- NOTE | 2018-07-03 09:37 | CT ---
Date of service: 07/03/2018 PROCEDURE: CT NECK WITHOUT CONTRAST HISTORY: neck swelling and crepitus this morning COMPARISON: None available. TECHNIQUE: CT of the neck without intravenous contrast. Coronal and sagittal reformats generated. Radiation dose: Total exam DLP = 395.59 mGy-cm. This CT exam was performed using one or more of the following dose reduction techniques: Automated exposure control, adjustment of the mA and/or kV according to patient size, and/or use of iterative reconstruction technique. FINDINGS: This examination is limited in the absence of intravenous contrast. NASOPHARYNX: Within normal limits. SUPRAHYOID NECK: No bulky mass in the oropharynx, oral cavity, parapharyngeal space and retropharyngeal space. INFRAHYOID NECK: No bulky mass in the larynx, hypopharynx, and supraglottic space. Vocal cords intact. GLANDS: Parotid and submandibular glands unremarkable. Normal size thyroid gland, without nodule. LYMPH NODES: Normal. No lymphadenopathy. CERVICAL SPINE: No fracture or focal lesion. OTHER FINDINGS: There is mild soft tissue swelling and subcutaneous fat stranding in the anterior neck and surrounding the parotid glands. IMPRESSION: Limited examination in the absence of intravenous contrast. Allowing for this, no bulky neck mass. Mild soft tissue swelling and subcutaneous fat stranding in the anterior neck and surrounding the parotid glands, nonspecific and could represent edema or cellulitis in the appropriate clinical setting. No evidence for soft tissue emphysema.
--- NOTE | 2018-07-03 09:41 | CT ---
Date of service: 07/03/2018 PROCEDURE: CT Chest without contrast HISTORY: tachycardia w/ h/o COPD COMPARISON: None available. TECHNIQUE: Contiguous axial images were obtained through the chest without intravenous contrast enhancement. Sagittal and coronal reconstructions were performed. Radiation dose: Total exam DLP = 493.46 mGy-cm. This CT exam was performed using one or more of the following dose reduction techniques: Automated exposure control, adjustment of the mA and/or kV according to patient size, and/or use of iterative reconstruction technique. FINDINGS: LUNGS: There is pulmonary hyperinflation and diffuse centrilobular emphysema. There is biapical pleural parenchymal scarring. No suspicious nodule, mass or consolidation. There are no endobronchial lesions. MEDIASTINUM: There are advanced atherosclerotic coronary artery calcifications. No aortic aneurysm. Normal sized heart. Main pulmonary artery unremarkable. No vascular congestion. No lymphadenopathy. Status post CABG. There are aortic atherosclerotic calcifications. PLEURA: No pleural fluid. No pneumothorax. BONES: No fracture. No destructive lesion. There is diffuse bone demineralization and multilevel degenerative changes in the spine. UPPER ABDOMEN: Grossly unremarkable. OTHER FINDINGS: None. IMPRESSION: No acute findings.
[2018-07-03] MEDS: Albuterol-Ipratrop 3 mg / 0.5 (3 ml) UD IH SCH ×3 (11:19→23:23)
--- NOTE | 2018-07-03 11:23 | RAD ---
Date of service: 07/03/2018 HISTORY: shortness of breath COMPARISON: 06/30/2018 FINDINGS: LUNGS: The lungs are well inflated and clear. PLEURA: No pleural effusions or pneumothorax. CARDIOVASCULAR: The heart is normal in size. Status post CABG with no aortic atherosclerotic calcification present. OSSEOUS STRUCTURES: Within normal limits for the patient's age. VISUALIZED UPPER ABDOMEN: Normal. OTHER FINDINGS: None. IMPRESSION: No active pulmonary disease.
--- NOTE | 2018-07-03 12:41 | PCM.SEPTIC ---
Sepsis Progress Note - Reassessment Type Date of Evaluation: 07/03/18 Time of Evaluation: 11:30 Reassessment Type: Non-invasive reassessment - Non Invasive Reassessment Were the most recent vital sign reviewed: Yes Vital Sign (Latest): Temp Pulse Resp BP Pulse Ox 98.5 F 101 H 17 148/66 94 L 07/03/18 09:48 07/03/18 11:22 07/03/18 09:48 07/03/18 09:48 07/03/18 09:48 Cardiovascular: Yes: Regular Rate, Rhythm, Chest Non Tender, Tachycardia. No: Edema, Gallop, Murmur Respiratory: Yes: Decreased Breath Sounds, Wheezing. No: Accessory Muscle Use, Rales, Rhonchi, Stridor, Respiratory Distress Capillary Refill: Normal (Less than 2 sec) Skin: Normal Color, Warm, Dry
[2018-07-03 14:56] VITALS: TEMP 98; O2SAT 95
--- NOTE | 2018-07-03 16:10 | CP.PCM.HP ---
<Irving Simpson - Last Filed: 07/03/18 16:39> History of Present Illness - History of Present Illness History of Present Illness: Hospitalist H&P: 63 year old M that is non compliant at with multiple ED visit is with PMHx of w/ HTN, COPD, TIA, CAD with stents, CABG, EtOH abuse, and active tobacco abuse presenting to the ED with complaint of swollen neck and associated shortness of breath. Patient states that when he woke up in the mornig to use the bathroom he realized he had bilateral swelling of the neck with shortness of breath. He also c/o of some scroatal swelling yesterday which resolved on its own. 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 He reports associated subjective fevers, wheezing, non-productive cough, but denies headache, chest pain, back pain, syncopal episodes, dysuria, hematuria or constipation. 12 point ROS complete and negative except as indicated. 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 Lives in [facility] Medications: refer to [facility] Allergies: Shellfish derived substances, Sulfa Primary Medical Doctor: Dr. Damon Present on Admission - Present on Admission Any Indicators Present on Admission: No Review of Systems - Review of Systems All systems: reviewed and no additional remarkable complaints except Past Patient History - Infectious Disease Hx of Infectious Diseases: None - Tetanus Immunizations Tetanus Immunization: Unknown - Past Medical History & Family History Past Medical History?: Yes - Past Social History Smoking Status: Current Some Days Smoker - CARDIAC Hx Cardiac Disorders: Yes (CAD s/p stent after GA in 03/2018) Hx Hypertension: Yes - PULMONARY Hx Respiratory Disorders: Yes Hx Chronic Obstructive Pulmonary Disease (COPD): Yes - NEUROLOGICAL Hx Neurological Disorder: Yes (peripheral neuropathy) Hx Dizziness: Yes Hx Migraine: Yes Hx Transient Ischemic Attacks (TIA): Yes Other/Comment: b/l legs burning numbnes, tingling - HEENT Hx HEENT Problems: Yes (eyeglasses, r eye lazy eye) Hx Cataracts: Yes - RENAL Hx Chronic Kidney Disease: Yes Hx Kidney Stones: Yes - ENDOCRINE/METABOLIC Hx Endocrine Disorders: No - HEMATOLOGICAL/ONCOLOGICAL Hx Blood Disorders: Yes Hx Anemia: Yes - INTEGUMENTARY Hx Dermatological Problems: Yes - MUSCULOSKELETAL/RHEUMATOLOGICAL Hx Musculoskeletal Disorders: Yes Hx Arthritis: Yes - GASTROINTESTINAL Hx Gastrointestinal Disorders: Yes (COLITIS,DIVERTICULOSIS) Hx Gall Bladder Disease: Yes (gallstones) Hx Gastroesophageal Reflux: Yes - GENITOURINARY/GYNECOLOGICAL Hx Genitourinary Disorders: Yes Hx Urinary Tract Infection: Yes - PSYCHIATRIC Hx Anxiety: Yes Hx Depression: Yes Hx Post Traumatic Stress Disorder: Yes Hx Substance Use: Yes (COCAINE,HEROIN,MARIJUANA USE. H/O.DENIES RECENT USE.) Other/Comment: quit smoking 1 week ago, community mental health,etoh abuse quit drinking sober 1 yr 6 months relapsed 04/03/18 then stopped again, personality disorder, smokes pot occasionally but quit heroin cocaine in , criminal charges in past, lives at [facility] - SURGICAL HISTORY Hx Cardiac Catheterization: Yes (CORONARY STENT) Hx Cholecystectomy: Yes Hx Coronary Stent: Yes Hx Open Heart Surgery: Yes (triple bypass) - ANESTHESIA Hx Anesthesia: Yes Hx Anesthesia Reactions: No Hx Malignant Hyperthermia: No Meds Allergies/Adverse Reactions: Allergies Allergy/AdvReac Type Severity Reaction Status Date / Time FISH Allergy ITCHING Verified 06/30/18 08:01 shellfish derived Allergy ANAPHYLAXIS Verified 06/30/18 08:01 Sulfa (Sulfonamide Allergy RASH Verified 06/30/18 08:01 Antibiotics) Physical Exam - Constitutional Appears: No Acute Distress - Head Exam Head Exam: ATRAUMATIC, NORMOCEPHALIC - Eye Exam Eye Exam: EOMI Pupil Exam: NORMAL ACCOMODATION - ENT Exam ENT Exam: Mucous Membranes Moist Additional comments: Mildly swollen neck extending to face - Respiratory Exam Respiratory Exam: Clear to Auscultation Bilateral. absent: Rales, Wheezes - Cardiovascular Exam Cardiovascular Exam: REGULAR RHYTHM, +S1, +S2 - GI/Abdominal Exam GI & Abdominal Exam: Normal Bowel Sounds, Soft. absent: Distended - Extremities Exam Extremities exam: Negative for: calf tenderness, pedal edema - Neurological Exam Neurological exam: Alert, Oriented x3 - Psychiatric Exam Psychiatric exam: Normal Mood - Skin Skin Exam: Dry, Intact, Warm Results - Vital Signs Recent Vital Signs: Last Vital Signs Temp 98 F 07/03/18 14:53 Pulse 96 H 07/03/18 15:01 Resp 20 07/03/18 14:53 BP 158/66 H 07/03/18 15:01 Pulse Ox 95 07/03/18 14:53 - Labs Result Diagrams: 07/03/18 06:58 07/03/18 06:58 Labs: Laboratory Results - last 24 hr 07/03/18 07/03/18 07/03/18 06:58 06:58 06:58 WBC 17.3 H D RBC 3.46 L Hgb 11.3 L Hct 34.3 L MCV 99.1 MCH 32.7 MCHC 32.9 RDW 16.1 H Plt Count 315 MPV 8.9 Gran % 68.9 H Lymph % (Auto) 21.9 L [place] % (Auto) 9.2 H Eos % (Auto) 0.0 L Baso % (Auto) 0.0 Gran # 11.91 H Lymph # (Auto) 3.8 H [place] # (Auto) 1.6 H Eos # (Auto) 0.0 Baso # (Auto) 0.00 PT 10.5 INR 0.91 APTT 21.5 L pCO2 pO2 HCO3 ABG pH ABG Total CO2 ABG O2 Saturation ABG O2 Content ABG Base Excess ABG Hemoglobin ABG Carboxyhemoglobin POC ABG HHb (Measured) ABG Methemoglobin ABG O2 Capacity VBG pH VBG pCO2 VBG HCO3 VBG Total CO2 VBG O2 Sat (Calc) VBG Base Excess VBG Potassium Hgb O2 Saturation Glucose Lactate FiO2 Sodium 132 Potassium 4.7 Chloride 97 L Carbon Dioxide 29 Anion Gap 10 BUN 19 Creatinine 0.7 L Est GFR ( Amer) > 60 Est GFR (Non-Af Amer) > 60 Random Glucose 83 Calcium 9.1 Magnesium 2.2 Total Bilirubin 0.5 AST 72 H D ALT 42 Alkaline Phosphatase 54 Ammonia Troponin I 0.07 D NT-Pro-B Natriuret Pep 2410 H Total Protein 6.9 Albumin 4.2 Globulin 2.7 Albumin/Globulin Ratio 1.6 Free T4 TSH 3rd Generation Venous Blood Potassium Urine Color Urine Appearance Urine pH Ur Specific Page Urine Protein Urine Glucose (UA) Urine Ketones Urine Blood Urine Nitrate Urine Bilirubin Urine Urobilinogen Ur Leukocyte Esterase Blood Type Antibody Screen BBK History Checked 07/03/18 07/03/18 07/03/18 06:58 07:30 07:30 WBC RBC Hgb Hct MCV MCH MCHC RDW Plt Count MPV Gran % Lymph % (Auto) [place] % (Auto) Eos % (Auto) Baso % (Auto) Gran # Lymph # (Auto) [place] # (Auto) Eos # (Auto) Baso # (Auto) PT INR APTT pCO2 pO2 57 H HCO3 ABG pH ABG Total CO2 ABG O2 Saturation ABG O2 Content ABG Base Excess ABG Hemoglobin ABG Carboxyhemoglobin POC ABG HHb (Measured) ABG Methemoglobin ABG O2 Capacity VBG pH 7.41 VBG pCO2 50.0 VBG HCO3 31.7 H VBG Total CO2 33.2 H VBG O2 Sat (Calc) 92.2 H VBG Base Excess 5.8 H VBG Potassium 4.2 Hgb O2 Saturation Glucose 83 Lactate 1.2 FiO2 21.0 Sodium 133.0 Potassium Chloride 98.0 Carbon Dioxide Anion Gap BUN Creatinine Est GFR ( Amer) Est GFR (Non-Af Amer) Random Glucose Calcium Magnesium Total Bilirubin AST ALT Alkaline Phosphatase Ammonia 10 Troponin I NT-Pro-B Natriuret Pep Total Protein Albumin Globulin Albumin/Globulin Ratio Free T4 1.06 TSH 3rd Generation 3.25 Venous Blood Potassium 4.2 Urine Color Urine Appearance Urine pH Ur Specific Page Urine Protein Urine Glucose (UA) Urine Ketones Urine Blood Urine Nitrate Urine Bilirubin Urine Urobilinogen Ur Leukocyte Esterase Blood Type Antibody Screen BBK History Checked 07/03/18 07/03/18 07/03/18 07:40 07:45 08:00 WBC RBC Hgb Hct MCV MCH MCHC RDW Plt Count MPV Gran % Lymph % (Auto) [place] % (Auto) Eos % (Auto) Baso % (Auto) Gran # Lymph # (Auto) [place] # (Auto) Eos # (Auto) Baso # (Auto) PT INR APTT pCO2 39 pO2 61.0 L HCO3 29.7 H ABG pH 7.49 H ABG Total CO2 30.9 H ABG O2 Saturation 95.3 ABG O2 Content 14.0 L ABG Base Excess 5.9 H ABG Hemoglobin 10.8 L ABG Carboxyhemoglobin 2.7 H POC ABG HHb (Measured) 4.5 ABG Methemoglobin 1.1 ABG O2 Capacity 14.7 L VBG pH VBG pCO2 VBG HCO3 VBG Total CO2 VBG O2 Sat (Calc) VBG Base Excess VBG Potassium Hgb O2 Saturation 91.8 L Glucose Lactate FiO2 21.0 Sodium Potassium Chloride Carbon Dioxide Anion Gap BUN Creatinine Est GFR ( Amer) Est GFR (Non-Af Amer) Random Glucose Calcium Magnesium Total Bilirubin AST ALT Alkaline Phosphatase Ammonia Troponin I NT-Pro-B Natriuret Pep Total Protein Albumin Globulin Albumin/Globulin Ratio Free T4 TSH 3rd Generation Venous Blood Potassium Urine Color Yellow Urine Appearance Clear Urine pH 6.0 Ur Specific Page 1.015 Urine Protein Negative Urine Glucose (UA) Negative Urine Ketones Negative Urine Blood Negative Urine Nitrate Negative Urine Bilirubin Negative Urine Urobilinogen 0.2 Ur Leukocyte Esterase Negative Blood Type A NEGATIVE Antibody Screen Negative BBK History Checked Patient has bt 07/03/18 15:00 WBC RBC Hgb Hct MCV MCH MCHC RDW Plt Count MPV Gran % Lymph % (Auto) [place] % (Auto) Eos % (Auto) Baso % (Auto) Gran # Lymph # (Auto) [place] # (Auto) Eos # (Auto) Baso # (Auto) PT INR APTT pCO2 pO2 HCO3 ABG pH ABG Total CO2 ABG O2 Saturation ABG O2 Content ABG Base Excess ABG Hemoglobin ABG Carboxyhemoglobin POC ABG HHb (Measured) ABG Methemoglobin ABG O2 Capacity VBG pH VBG pCO2 VBG HCO3 VBG Total CO2 VBG O2 Sat (Calc) VBG Base Excess VBG Potassium Hgb O2 Saturation Glucose Lactate FiO2 Sodium Potassium Chloride Carbon Dioxide Anion Gap BUN Creatinine Est GFR ( Amer) Est GFR (Non-Af Amer) Random Glucose Calcium Magnesium Total Bilirubin AST ALT Alkaline Phosphatase Ammonia Troponin I 0.05 D NT-Pro-B Natriuret Pep Total Protein Albumin Globulin Albumin/Globulin Ratio Free T4 TSH 3rd Generation Venous Blood Potassium Urine Color Urine Appearance Urine pH Ur Specific Page Urine Protein Urine Glucose (UA) Urine Ketones Urine Blood Urine Nitrate Urine Bilirubin Urine Urobilinogen Ur Leukocyte Esterase Blood Type Antibody Screen BBK History Checked Assessment & Plan - Assessment and Plan (Free Text) Assessment: 63 year old M that is non compliant at with multiple ED visit is with PMHx of w/ HTN, COPD, TIA, CAD with stents, CABG, EtOH abuse, and active tobacco abuse presenting to the ED with complaint of swollen neck and associated shortness of breath. 1. Soft tissue swelling of neck 2/2 cellulites or parotid glands? - CT scan showed mild soft tissue swelling and subcutaneous fat stranding of anterior neck surrounding parotid gland could represent edema or cellulites. - Continue Unasyn - Solumedrol 60 Q12 - Pepcid and Benadryl - Toradol for pain as needed - Daily labs 2. Hx of CAD - Continue aspirin, Plavix, Lipitor, Coreg , lisinopril, Imdur - Trop x 2 neg - Echo from 04/04/18 showed EF 66% - Duonebs as needed 3. Hx of COPD - Duonebs as needed - CT of chest was neg - Continue home symbicort and singulair 4. Hx of ETOH - level <10 - continue to monitor - Seizure precautions 5. GI/DVT - Protonix and lovenox sc Case and plan was reviewed and discussed with Dr Sandoval. <Eric Sandoval - Last Filed: 07/03/18 18:24> Results - Vital Signs Recent Vital Signs: Last Vital Signs Temp 98 F 07/03/18 14:53 Pulse 94 H 07/03/18 18:00 Resp 17 07/03/18 16:37 BP 158/66 H 07/03/18 15:01 Pulse Ox 95 07/03/18 14:53 - Labs Result Diagrams: 07/03/18 06:58 07/03/18 06:58 Labs: Laboratory Results - last 24 hr 07/03/18 07/03/18 07/03/18 06:58 06:58 06:58 WBC 17.3 H D RBC 3.46 L Hgb 11.3 L Hct 34.3 L MCV 99.1 MCH 32.7 MCHC 32.9 RDW 16.1 H Plt Count 315 MPV 8.9 Gran % 68.9 H Lymph % (Auto) 21.9 L [place] % (Auto) 9.2 H Eos % (Auto) 0.0 L Baso % (Auto) 0.0 Gran # 11.91 H Lymph # (Auto) 3.8 H [place] # (Auto) 1.6 H Eos # (Auto) 0.0 Baso # (Auto) 0.00 PT 10.5 INR 0.91 APTT 21.5 L pCO2 pO2 HCO3 ABG pH ABG Total CO2 ABG O2 Saturation ABG O2 Content ABG Base Excess ABG Hemoglobin ABG Carboxyhemoglobin POC ABG HHb (Measured) ABG Methemoglobin ABG O2 Capacity VBG pH VBG pCO2 VBG HCO3 VBG Total CO2 VBG O2 Sat (Calc) VBG Base Excess VBG Potassium Hgb O2 Saturation Glucose Lactate FiO2 Sodium 132 Potassium 4.7 Chloride 97 L Carbon Dioxide 29 Anion Gap 10 BUN 19 Creatinine 0.7 L Est GFR ( Amer) > 60 Est GFR (Non-Af Amer) > 60 Random Glucose 83 Calcium 9.1 Magnesium 2.2 Total Bilirubin 0.5 AST 72 H D ALT 42 Alkaline Phosphatase 54 Ammonia Troponin I 0.07 D NT-Pro-B Natriuret Pep 2410 H Total Protein 6.9 Albumin 4.2 Globulin 2.7 Albumin/Globulin Ratio 1.6 Free T4 TSH 3rd Generation Venous Blood Potassium Urine Color Urine Appearance Urine pH Ur Specific Page Urine Protein Urine Glucose (UA) Urine Ketones Urine Blood Urine Nitrate Urine Bilirubin Urine Urobilinogen Ur Leukocyte Esterase Blood Type Antibody Screen BBK History Checked 07/03/18 07/03/18 07/03/18 06:58 07:30 07:30 WBC RBC Hgb Hct MCV MCH MCHC RDW Plt Count MPV Gran % Lymph % (Auto) [place] % (Auto) Eos % (Auto) Baso % (Auto) Gran # Lymph # (Auto) [place] # (Auto) Eos # (Auto) Baso # (Auto) PT INR APTT pCO2 pO2 57 H HCO3 ABG pH ABG Total CO2 ABG O2 Saturation ABG O2 Content ABG Base Excess ABG Hemoglobin ABG Carboxyhemoglobin POC ABG HHb (Measured) ABG Methemoglobin ABG O2 Capacity VBG pH 7.41 VBG pCO2 50.0 VBG HCO3 31.7 H VBG Total CO2 33.2 H VBG O2 Sat (Calc) 92.2 H VBG Base Excess 5.8 H VBG Potassium 4.2 Hgb O2 Saturation Glucose 83 Lactate 1.2 FiO2 21.0 Sodium 133.0 Potassium Chloride 98.0 Carbon Dioxide Anion Gap BUN Creatinine Est GFR ( Amer) Est GFR (Non-Af Amer) Random Glucose Calcium Magnesium Total Bilirubin AST ALT Alkaline Phosphatase Ammonia 10 Troponin I NT-Pro-B Natriuret Pep Total Protein Albumin Globulin Albumin/Globulin Ratio Free T4 1.06 TSH 3rd Generation 3.25 Venous Blood Potassium 4.2 Urine Color Urine Appearance Urine pH Ur Specific Page Urine Protein Urine Glucose (UA) Urine Ketones Urine Blood Urine Nitrate Urine Bilirubin Urine Urobilinogen Ur Leukocyte Esterase Blood Type Antibody Screen BBK History Checked 07/03/18 07/03/18 07/03/18 07:40 07:45 08:00 WBC RBC Hgb Hct MCV MCH MCHC RDW Plt Count MPV Gran % Lymph % (Auto) [place] % (Auto) Eos % (Auto) Baso % (Auto) Gran # Lymph # (Auto) [place] # (Auto) Eos # (Auto) Baso # (Auto) PT INR APTT pCO2 39 pO2 61.0 L HCO3 29.7 H ABG pH 7.49 H ABG Total CO2 30.9 H ABG O2 Saturation 95.3 ABG O2 Content 14.0 L ABG Base Excess 5.9 H ABG Hemoglobin 10.8 L ABG Carboxyhemoglobin 2.7 H POC ABG HHb (Measured) 4.5 ABG Methemoglobin 1.1 ABG O2 Capacity 14.7 L VBG pH VBG pCO2 VBG HCO3 VBG Total CO2 VBG O2 Sat (Calc) VBG Base Excess VBG Potassium Hgb O2 Saturation 91.8 L Glucose Lactate FiO2 21.0 Sodium Potassium Chloride Carbon Dioxide Anion Gap BUN Creatinine Est GFR ( Amer) Est GFR (Non-Af Amer) Random Glucose Calcium Magnesium Total Bilirubin AST ALT Alkaline Phosphatase Ammonia Troponin I NT-Pro-B Natriuret Pep Total Protein Albumin Globulin Albumin/Globulin Ratio Free T4 TSH 3rd Generation Venous Blood Potassium Urine Color Yellow Urine Appearance Clear Urine pH 6.0 Ur Specific Page 1.015 Urine Protein Negative Urine Glucose (UA) Negative Urine Ketones Negative Urine Blood Negative Urine Nitrate Negative Urine Bilirubin Negative Urine Urobilinogen 0.2 Ur Leukocyte Esterase Negative Blood Type A NEGATIVE Antibody Screen Negative BBK History Checked Patient has bt 07/03/18 15:00 WBC RBC Hgb Hct MCV MCH MCHC RDW Plt Count MPV Gran % Lymph % (Auto) [place] % (Auto) Eos % (Auto) Baso % (Auto) Gran # Lymph # (Auto) [place] # (Auto) Eos # (Auto) Baso # (Auto) PT INR APTT pCO2 pO2 HCO3 ABG pH ABG Total CO2 ABG O2 Saturation ABG O2 Content ABG Base Excess ABG Hemoglobin ABG Carboxyhemoglobin POC ABG HHb (Measured) ABG Methemoglobin ABG O2 Capacity VBG pH VBG pCO2 VBG HCO3 VBG Total CO2 VBG O2 Sat (Calc) VBG Base Excess VBG Potassium Hgb O2 Saturation Glucose Lactate FiO2 Sodium Potassium Chloride Carbon Dioxide Anion Gap BUN Creatinine Est GFR ( Amer) Est GFR (Non-Af Amer) Random Glucose Calcium Magnesium Total Bilirubin AST ALT Alkaline Phosphatase Ammonia Troponin I 0.05 D NT-Pro-B Natriuret Pep Total Protein Albumin Globulin Albumin/Globulin Ratio Free T4 TSH 3rd Generation Venous Blood Potassium Urine Color Urine Appearance Urine pH Ur Specific Page Urine Protein Urine Glucose (UA) Urine Ketones Urine Blood Urine Nitrate Urine Bilirubin Urine Urobilinogen Ur Leukocyte Esterase Blood Type Antibody Screen BBK History Checked Attending/Attestation - Attestation I have personally seen and examined this patient.: Yes I have fully participated in the care of the patient.: Yes I have reviewed all pertinent clinical information: Yes Notes (Text): Patient seen and examined with the residents, agree with above noted to have soft tissue swelling of the neck, secondary to shellfish vs acei use solumedrol/pepcid/benadryl No respiratory distress. Able to swallow without difficulty
[2018-07-03 17:17] VITALS: RESP 17
[2018-07-03] MEDS ORDERED: Pneumococcal 23-Valent Vaccine IM ONE (17:17)
[2018-07-03] MEDS ORDERED: Influenza Vaccine 60 mcg/0.5 mL SYR (4YR UP) IM ONE (17:17)
--- NOTE | 2018-07-04 00:26 | CARD ---
APPROVED REPORT Date of service: 07/03/2018 EKG Measurement Heart [id number] <Conclusion> Sinus tachycardia Minimal voltage criteria for LVH, may be normal variant Borderline ECG
[2018-07-04] MEDS: Albuterol-Ipratrop 3 mg / 0.5 (3 ml) UD IH SCH ×5 (04:06→20:37)
[2018-07-04] MEDS ORDERED: Pantoprazole 40 mg EC Tab PO SCH (06:00)
[2018-07-04] MEDS ORDERED: Albuterol-Ipratrop 3 mg / 0.5 (3 ml) UD IH STA (06:38)
[2018-07-04 07:05] LABS: GRAN # 7.64 (1.4-6.5); GRAN % 85.4 % (50.0-68.0); HEMOGLOBIN 10.8 g/dL (14.0-18.0); LYMPH # 0.6 (1.2-3.4); LYMPH % 6.7 % (22.0-35.0); MEAN CORPUSCULAR HEMOGLOBIN 32.4 pg (25.0-35.0); MEAN CORPUSCULAR HGB CONC 32.4 g/dl (31.0-37.0); MONO # 0.7 (0.1-0.6); MONO % 7.9 % (1.0-6.0); RBC 3.33 10^6/uL (3.5-6.1); RED CELL DISTRIBUTION WIDTH 15.7 % (11.5-14.5)
[2018-07-04 07:22] LABS: TROPONIN I 0.03 ng/mL
[2018-07-04 07:23] LABS: ALB/GLOB RATIO 1.6 (1.1-1.8); ALT/SGPT 33 U/L (7-56); AST/SGOT 40 U/L (17-59); BLOOD UREA NITROGEN 33 mg/dL (7-21); CALCIUM 9.1 mg/dL (8.4-10.5); GFR NON-AFRICAN AMERICAN > 60
[2018-07-04 09:36] VITALS: BP 160/70; PULSE 80
[2018-07-04] MEDS ORDERED: Enoxaparin 40 mg Syringe SC SCH (10:00)
[2018-07-04] MEDS ORDERED: SALMETEROL INH SCH (10:00)
[2018-07-04] MEDS ORDERED: FLUTICASONE INH SCH (10:00)
--- NOTE | 2018-07-04 10:25 | CP.PCM.PN ---
<Mata Lopez - Last Filed: 07/04/18 12:30> Subjective - Date & Time of Evaluation Date of Evaluation: 07/04/18 Time of Evaluation: 07:45 - Subjective Subjective: Mata Lopez, PGY-1 Progress Note for Hospitalist Service Patient seen and evaluated at bedside. Patient had transient episode of substernal chest pain this AM while straining during bowel movement. Neck inflammation and shortness of breath improved. Tremors of the hand appreciated. Brief period of epistaxis noted, although patient states he may have been picking his nose. Denies palpitations, abdominal pain, leg pain, nausea, vomiting, diaphoresis. Objective - Vital Signs/Intake and Output Vital Signs (last 24 hours): Temp Pulse Resp BP Pulse Ox 98 F 80 17 160/70 H 95 07/03/18 14:53 07/04/18 09:24 07/03/18 16:37 07/04/18 09:24 07/03/18 14:53 Intake and Output: 07/04/18 07/04/18 06:59 18:59 Intake Total 240 Output Total 0 Balance 240 - Medications Medications: Current Medications Albuterol/Ipratropium (Duoneb 3 Mg/0.5 Mg (3 Ml) Ud) 3 ml IH [id number] [facility] Last Admin: 07/04/18 08:10 Dose: 3 ml Aspirin (Ecotrin) 81 mg PO DAILY [facility] Last Admin: 07/04/18 09:24 Dose: 81 mg Atorvastatin Calcium (Lipitor) 20 mg PO DIN [facility] Last Admin: 07/03/18 17:34 Dose: 20 mg Carvedilol (Coreg) 3.125 mg PO DAILY [facility] Last Admin: 07/04/18 09:24 Dose: 3.125 mg Clopidogrel Bisulfate (Plavix) 75 mg PO DAILY [facility] Last Admin: 07/04/18 09:24 Dose: 75 mg Diphenhydramine HCl (Benadryl) 25 mg PO Q6 PRN PRN Reason: Allergy symptoms Enoxaparin Sodium (Lovenox) 40 mg SC DAILY [facility]; Protocol Last Admin: 07/04/18 09:23 Dose: 40 mg Famotidine (Pepcid) 20 mg PO Q12 [facility] Last Admin: 07/04/18 09:24 Dose: 20 mg Folic Acid (Folic Acid) 1 mg PO DAILY [facility] Last Admin: 07/04/18 09:24 Dose: 1 mg Ampicillin Sodium/Sulbactam (Sodium 3 gm/ Sodium Chloride) 100 mls @ 100 mls/hr IVPB Q6H [facility]; Protocol Last Admin: 07/04/18 09:43 Dose: 100 mls/hr Isosorbide Mononitrate (Imdur Er) 30 mg PO DAILY [facility] Last Admin: 07/04/18 09:24 Dose: 30 mg Ketorolac Tromethamine (Toradol) 30 mg IVP Q6H PRN PRN Reason: Pain, severe (8-10) Last Admin: 07/03/18 22:18 Dose: 30 mg Lorazepam (Ativan) 1 mg IVP Q6H [facility]; Protocol Last Admin: 07/04/18 09:26 Dose: 1 mg Lorazepam (Ativan) 1 mg IVP Q2H PRN; Protocol PRN Reason: Anxiety Methylprednisolone (Solu-Medrol) 60 mg IVP Q12 [facility] Last Admin: 07/04/18 09:25 Dose: 60 mg Montelukast Sodium (Singulair) 10 mg PO DAILY [facility] Last Admin: 07/04/18 09:27 Dose: 10 mg Non-Formulary Medication (Fluticasone/Salmeterol [Fluticasone-Salmeterol 232- 14]) 1 inh INH DAILY [facility] Last Admin: 07/04/18 09:27 Dose: Not Given - Labs Labs: 07/04/18 06:30 07/04/18 06:30 PT 10.5 SECONDS (9.4-12.5) 07/03/18 06:58 INR 0.91 07/03/18 06:58 APTT 21.5 Seconds (25.1-36.5) L 07/03/18 06:58 - Additional Findings Additional findings: - Constitutional Appears: No Acute Distress - Head Exam Head Exam: ATRAUMATIC, NORMOCEPHALIC - Eye Exam Eye Exam: EOMI Pupil Exam: NORMAL ACCOMODATION - ENT Exam ENT Exam: Mucous Membranes Moist Additional comments: Improved swollen neck extending to face, nonerythematous - Respiratory Exam Respiratory Exam: Wheezes bilaterally. Absent: Rales - Cardiovascular Exam Cardiovascular Exam: REGULAR RHYTHM, +S1, +S2 - GI/Abdominal Exam GI & Abdominal Exam: Normal Bowel Sounds, Soft. absent: Distended - Extremities Exam Extremities exam: Negative for: calf tenderness, pedal edema - Neurological Exam Neurological exam: Alert, Oriented x3 - Psychiatric Exam Psychiatric exam: Normal Mood - Skin Skin Exam: Dry, Intact, Warm Assessment and Plan - Assessment and Plan (Free Text) Assessment: 63 year old M that is non compliant at with multiple ED visit is with PMHx of w/ HTN, COPD, TIA, CAD with stents, CABG, EtOH abuse, and active tobacco abuse presenting to the ED with complaint of swollen neck and associated shortness of breath. Chest Pain -EKG showed NSR @ 66 bpm, no ST or T wave changes - troponin downtrending 0.07, 0.05, 0.03 - likely MSK - Will continue to monitor Hyponatremia 2/2 dehydration vs SIADH vs beer protomania - Na 130, 132 yesterday - patient reported last ETOH yesterday - chronic issue on previous admissions - will continue to monitor closely Soft tissue swelling of neck 2/2 cellulites or parotid glands vs angioedema - improved - CT scan showed mild soft tissue swelling and subcutaneous fat stranding of anterior neck surrounding parotid gland could represent edema or cellulites. - Lisinopril discontinued in light of possible angioedema, no shortness of breath or respiratory compromise - Hx of Mumps - Continue Unasyn - Solumedrol 60 Q12 - Pepcid and Benadryl - Toradol for pain as needed - Daily labs Hx of CAD - Continue aspirin, Plavix, Lipitor, Coreg , lisinopril, Imdur - Trop x 3 neg , proBNP 2410 - Echo from 04/04/18 showed EF 66% - Duonebs as needed Hx of COPD - Duonebs as needed - CT of chest was neg - Continue home symbicort and singulair Hx of ETOH - reported last ETOH yesterday - level <10 - CIWA, Ativan mahsa and PRN - continue to monitor - Seizure precautions GI/DVT - Protonix and lovenox sc Patient seen, case reviewed and plan approved by Dr Sandoval. Mata Lopez, PGY-1 <Eric Sandoval - Last Filed: 07/04/18 17:13> Objective - Vital Signs/Intake and Output Vital Signs (last 24 hours): Temp Pulse Resp BP Pulse Ox 98 F 80 17 160/70 H 95 07/03/18 14:53 07/04/18 14:00 07/03/18 16:37 07/04/18 09:24 07/03/18 14:53 Intake and Output: 07/04/18 07/04/18 06:59 18:59 Intake Total 240 Output Total 0 Balance 240 - Medications Medications: Current Medications Albuterol/Ipratropium (Duoneb 3 Mg/0.5 Mg (3 Ml) Ud) 3 ml IH [id number] [facility] Last Admin: 07/04/18 11:48 Dose: 3 ml Aspirin (Ecotrin) 81 mg PO DAILY [facility] Last Admin: 07/04/18 09:24 Dose: 81 mg Atorvastatin Calcium (Lipitor) 20 mg PO DIN [facility] Last Admin: 07/03/18 17:34 Dose: 20 mg Carvedilol (Coreg) 3.125 mg PO DAILY [facility] Last Admin: 07/04/18 09:24 Dose: 3.125 mg Clopidogrel Bisulfate (Plavix) 75 mg PO DAILY [facility] Last Admin: 07/04/18 09:24 Dose: 75 mg Diphenhydramine HCl (Benadryl) 25 mg PO Q6 PRN PRN Reason: Allergy symptoms Enoxaparin Sodium (Lovenox) 40 mg SC DAILY [facility]; Protocol Last Admin: 07/04/18 09:23 Dose: 40 mg Famotidine (Pepcid) 20 mg PO Q12 [facility] Last Admin: 07/04/18 09:24 Dose: 20 mg Folic Acid (Folic Acid) 1 mg PO DAILY [facility] Last Admin: 07/04/18 09:24 Dose: 1 mg Ampicillin Sodium/Sulbactam (Sodium 3 gm/ Sodium Chloride) 100 mls @ 100 mls/hr IVPB Q6H [facility]; Protocol Last Admin: 07/04/18 14:30 Dose: 100 mls/hr Isosorbide Mononitrate (Imdur Er) 30 mg PO DAILY [facility] Last Admin: 07/04/18 09:24 Dose: 30 mg Ketorolac Tromethamine (Toradol) 30 mg IVP Q6H PRN PRN Reason: Pain, severe (8-10) Last Admin: 07/03/18 22:18 Dose: 30 mg Lorazepam (Ativan) 1 mg IVP Q6H [facility]; Protocol Last Admin: 07/04/18 14:30 Dose: 1 mg Lorazepam (Ativan) 1 mg IVP Q2H PRN; Protocol PRN Reason: Anxiety Methylprednisolone (Solu-Medrol) 60 mg IVP Q12 [facility] Last Admin: 07/04/18 09:25 Dose: 60 mg Montelukast Sodium (Singulair) 10 mg PO DAILY [facility] Last Admin: 07/04/18 09:27 Dose: 10 mg Non-Formulary Medication (Fluticasone/Salmeterol [Fluticasone-Salmeterol 232-14 ]) 1 inh INH DAILY [facility] Last Admin: 07/04/18 09:27 Dose: Not Given - Labs Labs: 07/04/18 06:30 07/04/18 06:30 PT 10.5 SECONDS (9.4-12.5) 07/03/18 06:58 INR 0.91 07/03/18 06:58 APTT 21.5 Seconds (25.1-36.5) L 07/03/18 06:58 Attending/Attestation - Attestation I have personally seen and examined this patient.: Yes I have fully participated in the care of the patient.: Yes I have reviewed all pertinent clinical information, including history, physical exam and plan: Yes Notes (Text): Patient seen and examined with the residents, agree with above Soft tissue neck swelling improving, tolerating diet. No respiratory distress Continue with IV Abx. Continue with solumedrol as patient having diffuse exp wheezing
--- NOTE | 2018-07-04 12:51 | CP.PCM.APN ---
Subjective - Date & Time of Evaluation Date of Evaluation: 07/04/18 Time of Evaluation: 08:00 - Subjective Subjective: seen and examined 63 y/o M PMHx CAD with CABG/stents, HTN, COPD, TIA, SIADH alcohol/polysubstance abuse. Patient arrived to ED with c/o Dyspnea and neck swelling post shellfish exposure patient has a h/o shellfish allergy. CT of neck noted for swelling questionable cellulitis. Patient is receiving Unasyn and Solumedrol tolerating well and appears to be responding. Patient denies MATA, dizziness, fever, chills, cough, hemoptysis, chest pain, abdominal pain, N/V/D, hematemesis or rectal bleeding. Review of Systems - Cardiovascular Cardiovascular: As Per HPI - Respiratory Respiratory: As Per HPI - Gastrointestinal Gastrointestinal: As Per HPI Objective - Vital Signs/Intake and Output Vital Signs (last 24 hours): Temp Pulse Resp BP Pulse Ox 98 F 80 17 160/70 H 95 07/03/18 14:53 07/04/18 09:24 07/03/18 16:37 07/04/18 09:24 07/03/18 14:53 Intake and Output: 07/04/18 07/04/18 06:59 18:59 Intake Total 240 Output Total 0 Balance 240 - Medications Medications: Current Medications Albuterol/Ipratropium (Duoneb 3 Mg/0.5 Mg (3 Ml) Ud) 3 ml IH [id number] [facility] Last Admin: 07/04/18 11:48 Dose: 3 ml Aspirin (Ecotrin) 81 mg PO DAILY [facility] Last Admin: 07/04/18 09:24 Dose: 81 mg Atorvastatin Calcium (Lipitor) 20 mg PO DIN [facility] Last Admin: 07/03/18 17:34 Dose: 20 mg Carvedilol (Coreg) 3.125 mg PO DAILY [facility] Last Admin: 07/04/18 09:24 Dose: 3.125 mg Clopidogrel Bisulfate (Plavix) 75 mg PO DAILY [facility] Last Admin: 07/04/18 09:24 Dose: 75 mg Diphenhydramine HCl (Benadryl) 25 mg PO Q6 PRN PRN Reason: Allergy symptoms Enoxaparin Sodium (Lovenox) 40 mg SC DAILY [facility]; Protocol Last Admin: 07/04/18 09:23 Dose: 40 mg Famotidine (Pepcid) 20 mg PO Q12 [facility] Last Admin: 07/04/18 09:24 Dose: 20 mg Folic Acid (Folic Acid) 1 mg PO DAILY [facility] Last Admin: 07/04/18 09:24 Dose: 1 mg Ampicillin Sodium/Sulbactam (Sodium 3 gm/ Sodium Chloride) 100 mls @ 100 mls/hr IVPB Q6H [facility]; Protocol Last Admin: 07/04/18 09:43 Dose: 100 mls/hr Isosorbide Mononitrate (Imdur Er) 30 mg PO DAILY [facility] Last Admin: 07/04/18 09:24 Dose: 30 mg Ketorolac Tromethamine (Toradol) 30 mg IVP Q6H PRN PRN Reason: Pain, severe (8-10) Last Admin: 07/03/18 22:18 Dose: 30 mg Lorazepam (Ativan) 1 mg IVP Q6H [facility]; Protocol Last Admin: 07/04/18 09:26 Dose: 1 mg Lorazepam (Ativan) 1 mg IVP Q2H PRN; Protocol PRN Reason: Anxiety Methylprednisolone (Solu-Medrol) 60 mg IVP Q12 [facility] Last Admin: 07/04/18 09:25 Dose: 60 mg Montelukast Sodium (Singulair) 10 mg PO DAILY [facility] Last Admin: 07/04/18 09:27 Dose: 10 mg Non-Formulary Medication (Fluticasone/Salmeterol [Fluticasone-Salmeterol 232- 14]) 1 inh INH DAILY [facility] Last Admin: 07/04/18 09:27 Dose: Not Given - Labs Labs: 07/04/18 06:30 07/04/18 06:30 PT 10.5 SECONDS (9.4-12.5) 07/03/18 06:58 INR 0.91 07/03/18 06:58 APTT 21.5 Seconds (25.1-36.5) L 07/03/18 06:58 - Constitutional Appears: Non-toxic, No Acute Distress, Chronically Ill - Head Exam Head Exam: ATRAUMATIC - Eye Exam Eye Exam: EOMI, PERRL - Neck Exam Neck Exam: Full ROM - Respiratory Exam Respiratory Exam: Decreased Breath Sounds, Wheezes, NORMAL BREATHING PATTERN - Cardiovascular Exam Cardiovascular Exam: +S1, +S2 - GI/Abdominal Exam GI & Abdominal Exam: Normal Bowel Sounds - Extremities Exam Extremities Exam: Full ROM, Normal Capillary Refill - Neurological Exam Neurological Exam: CN II-XII Intact, Oriented x3 Neuro motor strength exam: Left Upper Extremity: 5, Right Upper Extremity: 5, Left Lower Extremity: 5, Right Lower Extremity: 5 - Skin Additional comments: neck swelling is resolving, no redness/erythema noted. Assessment and Plan - Assessment and Plan (Free Text) Assessment: shellfish exposure/allergy questionable neck cellulitis Plan: continue Unasyn continue Solumedrol continue Duonebs medications as per SEP resume all prior medications will continue to follow closely
--- NOTE | 2018-07-04 19:03 | CARD ---
APPROVED REPORT Date of service: 07/04/2018 EKG Measurement Heart [id number] <Conclusion> Normal sinus rhythm Minimal voltage criteria for LVH, may be normal variant Borderline ECG
--- NOTE | 2018-07-04 21:18 | CP.PCM.PN ---
<Feng Bazan - Last Filed: 07/04/18 21:16> Subjective - Date & Time of Evaluation Date of Evaluation: 07/04/18 Time of Evaluation: 21:16 - Subjective Subjective: Patient signed out AMA Patient was alert and oriented x3 and was combative towards staff screaming he wanted to leave. Patient was explained risks of leaving including worsening of known and unknown symptoms, permanent disability and possible . Patient acknowledged understanding of risks and signed AMA. Objective - Vital Signs/Intake and Output Vital Signs (last 24 hours): Temp Pulse Resp BP Pulse Ox 98 F 80 17 160/70 H 95 07/03/18 14:53 07/04/18 14:00 07/03/18 16:37 07/04/18 09:24 07/03/18 14:53 Intake and Output: 07/04/18 07/05/18 18:59 06:59 Intake Total 200 Balance 200 - Medications Medications: Current Medications Albuterol/Ipratropium (Duoneb 3 Mg/0.5 Mg (3 Ml) Ud) 3 ml IH [id number] [facility] Last Admin: 07/04/18 20:37 Dose: Not Given Aspirin (Ecotrin) 81 mg PO DAILY [facility] Last Admin: 07/04/18 09:24 Dose: 81 mg Atorvastatin Calcium (Lipitor) 20 mg PO DIN [facility] Last Admin: 07/04/18 17:58 Dose: 20 mg Carvedilol (Coreg) 3.125 mg PO DAILY [facility] Last Admin: 07/04/18 09:24 Dose: 3.125 mg Clopidogrel Bisulfate (Plavix) 75 mg PO DAILY [facility] Last Admin: 07/04/18 09:24 Dose: 75 mg Diphenhydramine HCl (Benadryl) 25 mg PO Q6 PRN PRN Reason: Allergy symptoms Enoxaparin Sodium (Lovenox) 40 mg SC DAILY [facility]; Protocol Last Admin: 07/04/18 09:23 Dose: 40 mg Famotidine (Pepcid) 20 mg PO Q12 [facility] Last Admin: 07/04/18 09:24 Dose: 20 mg Folic Acid (Folic Acid) 1 mg PO DAILY [facility] Last Admin: 07/04/18 09:24 Dose: 1 mg Ampicillin Sodium/Sulbactam (Sodium 3 gm/ Sodium Chloride) 100 mls @ 100 mls/hr IVPB Q6H [facility]; Protocol Last Admin: 07/04/18 14:30 Dose: 100 mls/hr Isosorbide Mononitrate (Imdur Er) 30 mg PO DAILY [facility] Last Admin: 07/04/18 09:24 Dose: 30 mg Ketorolac Tromethamine (Toradol) 30 mg IVP Q6H PRN PRN Reason: Pain, severe (8-10) Last Admin: 07/03/18 22:18 Dose: 30 mg Lorazepam (Ativan) 1 mg IVP Q6H [facility]; Protocol Last Admin: 07/04/18 14:30 Dose: 1 mg Lorazepam (Ativan) 1 mg IVP Q2H PRN; Protocol PRN Reason: Anxiety Methylprednisolone (Solu-Medrol) 60 mg IVP Q12 [facility] Last Admin: 07/04/18 09:25 Dose: 60 mg Montelukast Sodium (Singulair) 10 mg PO DAILY [facility] Last Admin: 07/04/18 09:27 Dose: 10 mg Non-Formulary Medication (Fluticasone/Salmeterol [Fluticasone-Salmeterol 232- 14]) 1 inh INH DAILY [facility] Last Admin: 07/04/18 09:27 Dose: Not Given - Labs Labs: 07/04/18 06:30 07/04/18 06:30 PT 10.5 SECONDS (9.4-12.5) 07/03/18 06:58 INR 0.91 07/03/18 06:58 APTT 21.5 Seconds (25.1-36.5) L 07/03/18 06:58 <Bhavesh Rashid - Last Filed: 07/04/18 21:23> Objective - Vital Signs/Intake and Output Vital Signs (last 24 hours): Temp Pulse Resp BP Pulse Ox 98 F 80 17 160/70 H 95 07/03/18 14:53 07/04/18 14:00 07/03/18 16:37 07/04/18 09:24 07/03/18 14:53 Intake and Output: 07/04/18 07/05/18 18:59 06:59 Intake Total 200 Balance 200 - Medications Medications: Current Medications Albuterol/Ipratropium (Duoneb 3 Mg/0.5 Mg (3 Ml) Ud) 3 ml IH [id number] [facility] Last Admin: 07/04/18 20:37 Dose: Not Given Aspirin (Ecotrin) 81 mg PO DAILY [facility] Last Admin: 07/04/18 09:24 Dose: 81 mg Atorvastatin Calcium (Lipitor) 20 mg PO DIN [facility] Last Admin: 07/04/18 17:58 Dose: 20 mg Carvedilol (Coreg) 3.125 mg PO DAILY [facility] Last Admin: 07/04/18 09:24 Dose: 3.125 mg Clopidogrel Bisulfate (Plavix) 75 mg PO DAILY [facility] Last Admin: 07/04/18 09:24 Dose: 75 mg Diphenhydramine HCl (Benadryl) 25 mg PO Q6 PRN PRN Reason: Allergy symptoms Enoxaparin Sodium (Lovenox) 40 mg SC DAILY [facility]; Protocol Last Admin: 07/04/18 09:23 Dose: 40 mg Famotidine (Pepcid) 20 mg PO Q12 [facility] Last Admin: 07/04/18 09:24 Dose: 20 mg Folic Acid (Folic Acid) 1 mg PO DAILY [facility] Last Admin: 07/04/18 09:24 Dose: 1 mg Ampicillin Sodium/Sulbactam (Sodium 3 gm/ Sodium Chloride) 100 mls @ 100 mls/hr IVPB Q6H [facility]; Protocol Last Admin: 07/04/18 14:30 Dose: 100 mls/hr Isosorbide Mononitrate (Imdur Er) 30 mg PO DAILY [facility] Last Admin: 07/04/18 09:24 Dose: 30 mg Ketorolac Tromethamine (Toradol) 30 mg IVP Q6H PRN PRN Reason: Pain, severe (8-10) Last Admin: 07/03/18 22:18 Dose: 30 mg Lorazepam (Ativan) 1 mg IVP Q6H [facility]; Protocol Last Admin: 07/04/18 21:16 Dose: Not Given Lorazepam (Ativan) 1 mg IVP Q2H PRN; Protocol PRN Reason: Anxiety Methylprednisolone (Solu-Medrol) 60 mg IVP Q12 [facility] Last Admin: 07/04/18 09:25 Dose: 60 mg Montelukast Sodium (Singulair) 10 mg PO DAILY [facility] Last Admin: 07/04/18 09:27 Dose: 10 mg Non-Formulary Medication (Fluticasone/Salmeterol [Fluticasone-Salmeterol 232- 14]) 1 inh INH DAILY [facility] Last Admin: 07/04/18 09:27 Dose: Not Given - Labs Labs: 07/04/18 06:30 07/04/18 06:30 PT 10.5 SECONDS (9.4-12.5) 07/03/18 06:58 INR 0.91 07/03/18 06:58 APTT 21.5 Seconds (25.1-36.5) L 07/03/18 06:58 Attending/Attestation - Attestation I have personally seen and examined this patient.: Yes I have fully participated in the care of the patient.: Yes I have reviewed all pertinent clinical information, including history, physical exam and plan: Yes Notes (Text): 07/04/18 21:23 Seen when he was standing in the lobby in front of the R elevators.
--- NOTE | 2018-07-05 06:06 | CP.PCM.DIS ---
Provider - Provider Date of Admission: 07/04/18 15:06 Attending physician: Capo Ramirez MD Primary care physician: Dr. Damon Consults: 07/03/18 17:17 Inpatient [facility] Core Measures Referral Routine Comment: Physician Instructions: Reason For Exam: EVALUATION Transition In Care/Readmission Reduction Routine Comment: Physician Instructions: Reason For Exam: EVALUATION 07/03/18 17:22 Social Work Referral Routine Comment: DISCHARGE PLANNING Physician Instructions: Reason For Exam: EVALUATION Time Spent in preparation of Discharge (in minutes): 0 Hospital Course - Lab Results Lab Results: Micro Results 07/03/18 08:00 Urine Urine Culture - Final No Growth (<1,000 CFU/ML) 07/03/18 07:45 Blood-Venous Blood Culture - Preliminary NO GROWTH AFTER 24 HOURS 07/03/18 07:30 Blood-Venous Blood Culture - Preliminary NO GROWTH AFTER 24 HOURS Most Recent Lab Values WBC 9.0 10^3/uL (4.5-11.0) D 07/04/18 06:30 RBC 3.33 10^6/uL (3.5-6.1) L 07/04/18 06:30 Hgb 10.8 g/dL (14.0-18.0) L 07/04/18 06:30 Hct 33.3 % (42.0-52.0) L 07/04/18 06:30 MCV 100.0 fl (80.0-105.0) 07/04/18 06:30 MCH 32.4 pg (25.0-35.0) 07/04/18 06:30 MCHC 32.4 g/dl (31.0-37.0) 07/04/18 06:30 RDW 15.7 % (11.5-14.5) H 07/04/18 06:30 Plt Count 254 10^3/uL (120.0-450.0) 07/04/18 06:30 MPV 9.0 fl (7.0-11.0) 07/04/18 06:30 Gran % 85.4 % (50.0-68.0) H 07/04/18 06:30 Lymph % (Auto) 6.7 % (22.0-35.0) L 07/04/18 06:30 Cascade % (Auto) 7.9 % (1.0-6.0) H 07/04/18 06:30 Eos % (Auto) 0.0 % (1.5-5.0) L 07/04/18 06:30 Baso % (Auto) 0.0 % (0.0-3.0) 07/04/18 06:30 Gran # 7.64 (1.4-6.5) H 07/04/18 06:30 Lymph # (Auto) 0.6 (1.2-3.4) L 07/04/18 06:30 Cascade # (Auto) 0.7 (0.1-0.6) H 07/04/18 06:30 Eos # (Auto) 0.0 (0.0-0.7) 07/04/18 06:30 Baso # (Auto) 0.00 K/mm3 (0.0-2.0) 07/04/18 06:30 PT 10.5 SECONDS (9.4-12.5) 07/03/18 06:58 INR 0.91 07/03/18 06:58 APTT 21.5 Seconds (25.1-36.5) L 07/03/18 06:58 pCO2 39 mm/Hg (35-45) 07/03/18 07:40 pO2 61.0 mm/Hg (80-100) L 07/03/18 07:40 HCO3 29.7 mmol/L (21-28) H 07/03/18 07:40 ABG pH 7.49 (7.35-7.45) H 07/03/18 07:40 ABG Total CO2 30.9 mmol.L (22-28) H 07/03/18 07:40 ABG O2 Saturation 95.3 % (95-98) 07/03/18 07:40 ABG O2 Content 14.0 ML/dl (15-23) L 07/03/18 07:40 ABG Base Excess 5.9 mmol/L (-2.0-3.0) H 07/03/18 07:40 ABG Hemoglobin 10.8 g/dL (11.7-17.4) L 07/03/18 07:40 ABG Carboxyhemoglobin 2.7 % (0.5-1.5) H 07/03/18 07:40 POC ABG HHb (Measured) 4.5 % (0-5) 07/03/18 07:40 ABG Methemoglobin 1.1 % (0.0-3.0) 07/03/18 07:40 ABG O2 Capacity 14.7 mL/dl (16-24) L 07/03/18 07:40 VBG pH 7.41 (7.32-7.43) 07/03/18 07:30 VBG pCO2 50.0 (40-60) 07/03/18 07:30 VBG HCO3 31.7 mmol/l (21-28) H 07/03/18 07:30 VBG Total CO2 33.2 mmol.L (22-28) H 07/03/18 07:30 VBG O2 Sat (Calc) 92.2 % (40-65) H 07/03/18 07:30 VBG Base Excess 5.8 mmol/L (0.0-2.0) H 07/03/18 07:30 VBG Potassium 4.2 mmol/L (3.6-5.2) 07/03/18 07:30 Hgb O2 Saturation 91.8 % (95.0-98.0) L 07/03/18 07:40 Sodium 133.0 mmol/L (132-148) 07/03/18 07:30 Chloride 98.0 mmol/L (98-107) 07/03/18 07:30 Glucose 83 mg/dl (75-110) 07/03/18 07:30 Lactate 1.2 mmol/L (0.7-2.1) 07/03/18 07:30 FiO2 21.0 % 07/03/18 07:40 Sodium 130 mmol/L (132-148) L 07/04/18 06:30 Potassium 4.9 mmol/L (3.6-5.0) 07/04/18 06:30 Chloride 95 mmol/L (98-107) L 07/04/18 06:30 Carbon Dioxide 27 mmol/L (21-33) 07/04/18 06:30 Anion Gap 13 (10-20) 07/04/18 06:30 BUN 33 mg/dL (7-21) H 07/04/18 06:30 Creatinine 0.8 mg/dl (0.8-1.5) 07/04/18 06:30 Est GFR ( Amer) > 60 07/04/18 06:30 Est GFR (Non-Af Amer) > 60 07/04/18 06:30 Random Glucose 121 mg/dL (70-110) H 07/04/18 06:30 Calcium 9.1 mg/dL (8.4-10.5) 07/04/18 06:30 Magnesium 2.2 mg/dL (1.7-2.2) 07/03/18 06:58 Total Bilirubin 0.6 mg/dL (0.2-1.3) 07/04/18 06:30 AST 40 U/L (17-59) 07/04/18 06:30 ALT 33 U/L (7-56) 07/04/18 06:30 Alkaline Phosphatase 48 U/L (38-126) 07/04/18 06:30 Ammonia 10 umol/L (9-33) 07/03/18 07:30 Troponin I 0.03 ng/mL D 07/04/18 06:30 NT-Pro-B Natriuret Pep 2410 pg/mL (0-450) H 07/03/18 06:58 Total Protein 6.4 g/dL (5.8-8.3) 07/04/18 06:30 Albumin 4.0 g/dL (3.0-4.8) 07/04/18 06:30 Globulin 2.4 gm/dL 07/04/18 06:30 Albumin/Globulin Ratio 1.6 (1.1-1.8) 07/04/18 06:30 Free T4 1.06 ng/dL (0.78-2.19) 07/03/18 06:58 TSH 3rd Generation 3.25 mIU/mL (0.46-4.68) 07/03/18 06:58 Venous Blood Potassium 4.2 mmol/L (3.6-5.2) 07/03/18 07:30 Urine Color Yellow (YELLOW) 07/03/18 08:00 Urine Appearance Clear (CLEAR) 07/03/18 08:00 Urine pH 6.0 (4.7-8.0) 07/03/18 08:00 Ur Specific [place] 1.015 (1.005-1.035) 07/03/18 08:00 Urine Protein Negative mg/dL (<30 mg/dL) 07/03/18 08:00 Urine Glucose (UA) Negative mg/dL (NEGATIVE) 07/03/18 08:00 Urine Ketones Negative mg/dL (NEGATIVE) 07/03/18 08:00 Urine Blood Negative (NEGATIVE) 07/03/18 08:00 Urine Nitrate Negative (NEGATIVE) 07/03/18 08:00 Urine Bilirubin Negative (NEGATIVE) 07/03/18 08:00 Urine Urobilinogen 0.2 E.U./dL (<1 E.U./dL) 07/03/18 08:00 Ur Leukocyte Esterase Negative Jenifer/uL (NEGATIVE) 07/03/18 08:00 Blood Type A NEGATIVE 07/03/18 07:45 Antibody Screen Negative 07/03/18 07:45 BBK History Checked Patient has bt 07/03/18 07:45 - Hospital Course Hospital Course: Mata Lopez, PGY-1 Discharge Summary for Hospitalist Service 63 yo M with PMH of HTN, COPD, TIA, CAD w/ stents, CABG, and hx of EtOH and polysubtance abuse (heroin, cocaine, marijuana) and medication noncompliance who presented to [facility] [place] with complaint of swollen neck, associated shortness of breath and leukocytosis. No respiratory compromise noted. Lactate was 1.2. CT scan of the neck showed mild soft tissue swelling and subcutaneous fat stranding of anterior neck surrounding parotid gland could represent edema or cellulitis. Urinalysis was neagtive. Patient attributes swollen neck to recent ingestion of fish, to which the patient is allergic. Lisinopril was discontinued in light of possible angioedema. Patient was started on Unasyn and Solumedrol 60 Q12 as well as Pepcid and Benadryl. Duonebs were utilized as well for shortness of breath. Patient had transient episode of substernal chest pain while straining during bowel movement while hospitalized. EKG was ordered and troponins were trended. EKG showed NSR @ 66 bpm, no ST or T wave changes. Troponin downtrending 0.07, 0.05, 0.03. Chest x-ray showed no active disease and no changes from previous images on earlier admissions. Leukocytosis resolved on next day. Patient also had slight hyponatremia at 130, which was likely due to SIADH vs beer protomania as patient reports last ETOH day prior. Patient remained asymptomatic and is producing urine. Physical therapy was consulted. He was counselled on smoking and alcohol cessation while hospitalized. Patient signed out against medical advice. Patient was alert and oriented x3 and was combative towards staff screaming he wanted to leave. Patient was explained risks of leaving including worsening of known and unknown symptoms, permanent disability and possible . Patient acknowledged understanding of risks and signed AMA. Discharge Plan - Follow Up Plan Condition: GOOD Disposition: AGAINST MEDICAL ADVICE Instructions: Asthma (DC), Asthma (GEN)
== END 2018-07-04 21:42 | disposition left against medical advice (07) | DRG 607 ==
LOC: ED 06:34 → ERH 09:49 → 3RSO 14:39 → OBSVTOIN 07-04 15:06
PROVIDERS: ADMIT Internal Medicine; ATTEND Internal Medicine
DX: R22.1 Localized swelling, mass and lump, neck (principal); E22.2 Syndrome of inappropriate secretion of antidiuretic hormone; R06.02 Shortness of breath; T78.1XXA Other adverse food reactions, not elsewhere classified, initial encounter; J44.9 Chronic obstructive pulmonary disease, unspecified; I25.10 Atherosclerotic heart disease of native coronary artery without angina pectoris; I12.9 Hypertensive chronic kidney disease with stage 1 through stage 4 chronic kidney disease, or unspecified chronic kidney disease; N18.9 Chronic kidney disease, unspecified; F43.10 Post-traumatic stress disorder, unspecified; K21.9 Gastro-esophageal reflux disease without esophagitis; Z91.19 Patient's noncompliance with other medical treatment and regimen; Z95.1 Presence of aortocoronary bypass graft; Z87.891 Personal history of nicotine dependence; Z86.73 Personal history of transient ischemic attack (TIA), and cerebral infarction without residual deficits; Z88.2 Allergy status to sulfonamides; Z95.5 Presence of coronary angioplasty implant and graft; Z86.19 Personal history of other infectious and parasitic diseases; Z91.14 Patient's other noncompliance with medication regimen

== ENCOUNTER 2018-09-05 13:51 | Inpatient (IN) | payer MEDICARE, MEDICAID ==
[2018-09-05 16:30] LABS: BASO # 0.02 K/mm3 (0.0-2.0); BASO % 0.3 % (0.0-3.0); EOS # 0.2 (0.0-0.7); EOS % 3.7 % (1.5-5.0); HEMOGLOBIN 10.8 g/dL (14.0-18.0); LYMPH # 1.6 (1.2-3.4); LYMPH % 24.4 % (22.0-35.0); MEAN CELL VOLUME 91.8 fl (80.0-105.0); MEAN CORPUSCULAR HEMOGLOBIN 31.8 pg (25.0-35.0); MEAN CORPUSCULAR HGB CONC 34.6 g/dl (31.0-37.0); MEAN PLATELET VOLUME 8.7 fl (7.0-11.0); MONO % 14.7 % (1.0-6.0); RBC 3.4 10^6/uL (3.5-6.1); RED CELL DISTRIBUTION WIDTH 14.5 % (11.5-14.5); WHITE BLOOD COUNT 6.5 10^3/uL (4.5-11.0)
[2018-09-05 16:36] LABS: ALB/GLOB RATIO 1.6 (1.1-1.8); ALBUMIN 4.4 g/dL (3.0-4.8); ALT/SGPT 10 U/L (7-56); AST/SGOT 25 U/L (17-59); BLOOD UREA NITROGEN 13 mg/dL (7-21); CALCIUM 9.5 mg/dL (8.4-10.5); GFR NON-AFRICAN AMERICAN > 60; LIPASE 207 U/L (23-300)
--- NOTE | 2018-09-05 16:47 | RAD ---
Date of service: 09/05/2018 HISTORY: abd pain COMPARISON: Comparison is made with the previous study dated 07/03/2018 FINDINGS: LUNGS: No evidence of new infiltrate or consolidation in the lungs. Prominent perihilar opacities are again noted. PLEURA: No significant pleural effusion identified, no pneumothorax apparent. CARDIOVASCULAR: No aortic atherosclerotic calcification present. Normal cardiac size. No pulmonary vascular congestion. OSSEOUS STRUCTURES: No significant abnormalities. VISUALIZED UPPER ABDOMEN: Normal. OTHER FINDINGS: None. IMPRESSION: No active disease.
[2018-09-05 16:48] LABS: TROPONIN I < 0.01 ng/mL
[2018-09-05] MEDS: Sodium Chloride 0.9% 1,000 ML IV SCH (17:02)
--- NOTE | 2018-09-05 18:11 | CT ---
Date of service: 09/05/2018 PROCEDURE: CT Abdomen and Pelvis without intravenous contrast HISTORY: left sided abdominal pain COMPARISON: 07/05/2017 CT scan abdomen and pelvis. TECHNIQUE: Unenhanced. Neither IV nor oral contrast administered Radiation dose: Total exam DLP = 685.11 mGy-cm. This CT exam was performed using one or more of the following dose reduction techniques: Automated exposure control, adjustment of the mA and/or kV according to patient size, and/or use of iterative reconstruction technique. FINDINGS: LOWER THORAX: Unremarkable. LIVER: Unremarkable. No gross lesion or ductal dilatation. GALLBLADDER AND BILE DUCTS: Status post cholecystectomy. No abnormality is seen in the gallbladder fossa. PANCREAS: Unremarkable. No gross lesion or ductal dilatation. SPLEEN: Unremarkable. ADRENALS: Unremarkable. No mass. KIDNEYS AND URETERS: Unremarkable. No hydronephrosis. No solid mass. Incidental finding(s): Hyperdense cyst projects posterior lateral aspect left kidney unchanged compared to the prior CT scan 07/05/2017. VASCULATURE: Unremarkable. No aortic aneurysm. Atherosclerotic calcification and mural plaque present. Findings are seen throughout the aorta and proximal iliac arteries. BOWEL: Unremarkable. No obstruction. No gross mural thickening. APPENDIX: A normal appendix is visualized in it's entirety. PERITONEUM: Unremarkable. No free fluid. No free air. LYMPH NODES: Unremarkable. No enlarged lymph nodes. BLADDER: Unremarkable. REPRODUCTIVE: Unremarkable. BONES: No acute fracture. Multilevel degenerative changes mid and lower lumbar spine. OTHER FINDINGS: None. IMPRESSION: No acute or significant findings related to/ accounting for the clinical presentation. Additional benign and/or incidental findings described above. No significant interval change compared to the prior examination(s).
--- NOTE | 2018-09-05 18:17 | CT ---
Date of service: 09/05/2018 PROCEDURE: CT HEAD WITHOUT CONTRAST. HISTORY: Status post fall COMPARISON: Comparison made with prior study CT scan and MRI brain dated 10/31/2016 and 11/21/2015 respectively. TECHNIQUE: Axial computed tomography images were obtained through the head/brain without intravenous contrast. Radiation dose: Total exam DLP = 914.49 mGy-cm. This CT exam was performed using one or more of the following dose reduction techniques: Automated exposure control, adjustment of the mA and/or kV according to patient size, and/or use of iterative reconstruction technique. FINDINGS: HEMORRHAGE: No acute parenchymal, subarachnoid or hemorrhage. BRAIN: Mild chronic periventricular white matter ischemic changes seen extending peripherally into the deep and to a lesser degree subcortical white matter both cerebral hemispheres. Note these changes are seen to better advantage on high-resolution MRI. The possibility of a small hyperacute infarct not excluded on this study Moderate generalized volume loss. No obvious parenchymal nor extra-axial mass or collection seen on this noncontrast exam. Mild vascular calcifications both carotid siphons again noted VENTRICLES: No obstructive hydrocephalus. CALVARIUM: There are no acute calvarial fractures seen. PARANASAL SINUSES: Mild mucosal thickening seen in the right maxillary antrum MASTOID AIR CELLS: Unremarkable as visualized. No inflammatory changes. OTHER FINDINGS: None. IMPRESSION: No acute intracranial hemorrhage. Mild chronic white matter ischemic changes. Moderate volume loss.
--- NOTE | 2018-09-05 20:17 | ED PDOC ---
Arrival/HPI - General Chief Complaint: Abdominal Pain Time Seen by Provider: 09/05/18 14:40 Historian: Patient - History of Present Illness Narrative History of Present Illness (Text): 09/05/18 20:14 63-year-old male presents today with epigastric pain nausea vomiting and some diarrhea that started today. Patient states his and his son are sick with similar symptoms. Patient states he has a history of ulcers. He should also states that he had fallen yesterday and injured his head. Patient states he has a history of chronic back pain. He denies shortness of breath. Patient states earlier this morning he did have a slight pressure sensation going across the anterior chest for which she took his nitroglycerin and the pain resolved. Patient denies dizziness or weakness. No fevers or chills. He denies urinary symptoms. He denies neck pain. No medications have been taken for pain at home. No other complaints. Past Medical History - Provider Review Nursing Documentation Reviewed: Yes - Travel History Have you recently traveled outside [place] w/in the past 3 mons?: No - Past History Past History: No Previous - Infectious Disease Hx of Infectious Diseases: None - Tetanus Immunization Tetanus Immunization: Unknown - Reproductive Currently Lactating: No - Cardiac Hx Cardiac Disorders: Yes (CAD s/p stent after ID in 03/2018) Hx Hypertension: Yes - Pulmonary Hx Respiratory Disorders: Yes Hx Chronic Obstructive Pulmonary Disease (COPD): Yes - Neurological Hx Neurological Disorder: Yes (peripheral neuropathy) Hx Dizziness: Yes Hx Migraine: Yes Hx Transient Ischemic Attacks (TIA): Yes Other/Comment: b/l legs burning numbnes, tingling - HEENT Hx HEENT Disorder: Yes (eyeglasses, r eye lazy eye) Hx Cataracts: Yes - Renal Hx Renal Disorder: Yes Hx Kidney Stones: Yes - Endocrine/Metabolic Hx Endocrine Disorders: No - Hematological/Oncological Hx Blood Disorders: Yes Hx Anemia: Yes - Integumentary Hx Dermatological Disorder: Yes - Musculoskeletal/Rheumatological Hx Musculoskeletal Disorders: Yes Hx Arthritis: Yes - Gastrointestinal Hx Gastrointestinal Disorders: Yes (COLITIS,DIVERTICULOSIS) Hx Gall Bladder Disease: Yes (gallstones) Hx Gastroesophageal Reflux: Yes - Genitourinary/Gynecological Hx Genitourinary Disorders: Yes Hx Urinary Tract Infection: Yes - Psychiatric Hx Anxiety: Yes Hx Depression: Yes Hx Post Traumatic Stress Disorder: Yes Hx Substance Use: Yes (COCAINE,HEROIN,MARIJUANA USE. H/O.DENIES RECENT USE.) Other/Comment: quit smoking 1 week ago, community mental health,etoh abuse quit drinking sober 1 yr 6 months relapsed 04/03/18 then stopped again, personality disorder, smokes pot occasionally but quit heroin cocaine in , criminal c harges in past, lives at [facility] - Surgical History Hx Cardiac Catheterization: Yes (CORONARY STENT) Hx Cholecystectomy: Yes Hx Coronary Stent: Yes Hx Open Heart Surgery: Yes (triple bypass) - Anesthesia Hx Anesthesia: Yes Hx Anesthesia Reactions: No Hx Malignant Hyperthermia: No - Suicidal Assessment Feels Threatened In Home Enviroment: No Family/Social History - Physician Review Nursing Documentation Reviewed: Yes Family/Social History: Unknown Family HX Smoking Status: Current Some Days Smoker Hx Alcohol Use: Yes (RELAPSED 04-03-18) Hx Substance Use: Yes (COCAINE,HEROIN,MARIJUANA USE. H/O.DENIES RECENT USE.) Substance used: HEROIN, MARIJUANA Hx Substance Use Treatment: No Allergies/Home Meds Allergies/Adverse Reactions: Allergies EVE Inhibitors Allergy (Verified 07/04/18 11:00) SWELLING FISH Allergy (Verified 06/30/18 08:01) ITCHING shellfish derived Allergy (Verified 06/30/18 08:01) ANAPHYLAXIS Sulfa (Sulfonamide Antibiotics) Allergy (Verified 06/30/18 08:01) RASH Home Medications: Home Meds Medication Instructions Recorded Confirmed Aspirin [Low Dose Aspirin EC] 81 mg PO DAILY 04/04/18 07/03/18 Folic Acid 1 mg PO DAILY 05/04/18 07/03/18 Isosorbide Mononitrate ER [Imdur 30 mg PO DAILY 05/04/18 07/03/18 ER] Fluticasone/Salmeterol 1 inh INH DAILY 06/17/18 07/03/18 [Fluticasone-Salmeterol 232-14] Omeprazole 40 mg PO DAILY 06/17/18 07/03/18 Carvedilol [Coreg] 3.125 mg PO DAILY 07/03/18 07/03/18 Review of Systems - Review of Systems Constitutional: absent: Fatigue, Fevers Respiratory: absent: SOB, Cough Cardiovascular: Chest Pain. absent: Palpitations Gastrointestinal: Abdominal Pain, Diarrhea, Nausea, Vomiting. absent: Hematemesis, Food Intolerance Genitourinary Male: absent: Dysuria, Frequency, Hematuria Musculoskeletal: Back Pain. absent: Arthralgias, Neck Pain Skin: absent: Rash, Pruritis Neurological: absent: Headache, Dizziness Psychiatric: absent: Anxiety, Depression, Suicidal Ideation Physical Exam Vital Signs Reviewed: Yes Vital Signs Temp Pulse Resp BP Pulse Ox 09/05/18 18:40 68 18 92/46 L 91 L 09/05/18 16:20 77 18 105/51 L 97 09/05/18 14:52 98 F 86 18 125/56 L 95 Temperature: Afebrile Blood Pressure: Normal Pulse: Regular Respiratory Rate: Normal Appearance: Positive for: Well-Appearing, Non-Toxic, Comfortable Pain Distress: None Mental Status: Positive for: Alert and Oriented X 3 - Systems Exam Head: Present: Atraumatic Mouth: Present: Moist Mucous Membranes Neck: Present: Normal Range of Motion Respiratory/Chest: Present: Clear to Auscultation, Good Air Exchange. No: Respiratory Distress, Accessory Muscle Use Cardiovascular: Present: Regular Rate and Rhythm, Normal S1, S2. No: Murmurs Abdomen: Present: Tenderness (+ epigastric and LUQ tenderness). No: Distention, Peritoneal Signs, Rebound, Guarding Rectal: Present: Normal Rectal Tone. No: Occult Blood, Rectal Tenderness, Gross Blood, Melena, Hemorrhoids, Fissures Back: Present: Normal Inspection. No: CVA Tenderness, Midline Tenderness, Paraspinal Tenderness Upper Extremity: Present: Normal Inspection, Normal ROM Lower Extremity: Present: Normal Inspection, Normal ROM Neurological: Present: GCS=15, Speech Normal Skin: Present: Warm, Dry, Normal Color. No: Rashes Psychiatric: Present: Alert, Oriented x 3 Medical Decision Making ED Course and Treatment: 09/05/18 20:17 63yr old male with epigastric pain nausea vomiting and diarrhea since this morning. Patient was given Protonix Zofran and normal saline at 75 mL/h EKG shows atrial flutter at [address] elevations QTC 373 unchanged from p revious EKG on 06/30/2018 CBC within normal limits CMP NA; 120 Alcohol less than 10 Chest x-ray shows no infiltrate or effusion no cardiomegaly CAT scan of the head:FINDINGS: HEMORRHAGE: No acute parenchymal, subarachnoid or hemorrhage. BRAIN: Mild chronic periventricular white matter ischemic changes seen extending peripherally into the deep and to a lesser degree subcortical white matter both cerebral hemispheres. Note these changes are seen to better advantage on high- resolution MRI. The possibility of a small hyperacute infarct not excluded on this study Moderate generalized volume loss. No obvious parenchymal nor extra-axial mass or collection seen on this noncontrast exam. Mild vascular calcifications both carotid siphons again noted VENTRICLES: No obstructive hydrocephalus. CALVARIUM: There are no acute calvarial fractures seen. PARANASAL SINUSES: Mild mucosal thickening seen in the right maxillary antrum MASTOID AIR CELLS: Unremarkable as visualized. No inflammatory changes. OTHER FINDINGS: None. IMPRESSION: No acute intracranial hemorrhage. Mild chronic white matter ischemic changes. Moderate volume loss. CAT scan of the abdomen and pelvis:FINDINGS: LOWER THORAX: Unremarkable. LIVER: Unremarkable. No gross lesion or ductal dilatation. GALLBLADDER AND BILE DUCTS: Status post cholecystectomy. No abnormality is seen in the gallbladder fossa. PANCREAS: Unremarkable. No gross lesion or ductal dilatation. SPLEEN: Unremarkable. ADRENALS: Unremarkable. No mass. KIDNEYS AND URETERS: Unremarkable. No hydronephrosis. No solid mass. Incidental finding(s): Hyperdense cyst projects posterior lateral aspect left kidney unchanged compared to the prior CT scan 07/05/2017. VASCULATURE: Unremarkable. No aortic aneurysm. Atherosclerotic calcification and mural plaque present. Findings are seen throughout the aorta and proximal iliac arteries. BOWEL: Unremarkable. No obstruction. No gross mural thickening. APPENDIX: A normal appendix is visualized in it's entirety. PERITONEUM: Unremarkable. No free fluid. No free air. LYMPH NODES: Unremarkable. No enlarged lymph nodes. BLADDER: Unremarkable. REPRODUCTIVE: Unremarkable. BONES: No acute fracture. Multilevel degenerative changes mid and lower lumbar spine. OTHER FINDINGS: None. IMPRESSION: No acute or significant findings related to/ accounting for the clinical presentation. Additional benign and/or incidental findings described above. No significant interval change compared to the prior examination(s). Patient reassessment. Patient is nontoxic well-appearing in no distress resting comfortably in the emergency room.Alert and oriented 3 ambulating with a steady gait. Case was discussed in depth with Dr. su; accepts admission for hyponatremia, abdominal pain, nausea and vomiting Impression: Hyponatremia, abdominal pain, nausea/vomiting, chest pain Admit to telemetry - Lab Interpretations Lab Results: Troponin I < 0.01 ng/mL D 09/05/18 16:21 Total Bilirubin 0.7 mg/dL (0.2-1.3) 09/05/18 16:21 AST 25 U/L (17-59) 09/05/18 16:21 ALT 10 U/L (7-56) 09/05/18 16:21 Alkaline Phosphatase 73 U/L (38-126) 09/05/18 16:21 Total Protein 7.1 g/dL (5.8-8.3) 09/05/18 16:21 Albumin 4.4 g/dL (3.0-4.8) 09/05/18 16:21 Globulin 2.7 gm/dL 09/05/18 16:21 Albumin/Globulin Ratio 1.6 (1.1-1.8) 09/05/18 16:21 Lipase 207 U/L (23-300) 09/05/18 16:21 - RAD Interpretation Radiology Orders: 09/05/18 15:00 CHEST PORTABLE [RAD] Stat 09/05/18 15:03 ABD & PELVIS W/O PO OR IV CONT [CT] Stat 09/05/18 15:51 HEAD W/O CONTRAST [CT] Stat - Medication Orders Current Medication Orders: Sodium Chloride (Sodium Chloride 0.9%) 1,000 mls @ 75 mls/hr IV .[id number] MAHSA Last Admin: 09/05/18 17:02 Dose: 75 mls/hr eMAR Start Stop Document 09/05/18 17:02 BB (Rec: 09/05/18 17:02 [id number]) Intravenous Solution Start Date 09/05/18 Start Time 17:02 Discontinued Medications Ondansetron HCl (Zofran Inj) 4 mg IVP STAT STA Stop: 09/05/18 15:01 Last Admin: 09/05/18 17:01 Dose: 4 mg IVP Administration Document 09/05/18 17:01 BB (Rec: 09/05/18 17:01 BB [facility] [id number]) Charges for Administration # of IVP Administrations 1 Pantoprazole Sodium (Protonix Inj) 40 mg IVP STAT STA Stop: 09/05/18 15:01 Last Admin: 09/05/18 17:01 Dose: 40 mg IVP Administration Document 09/05/18 17:01 BB (Rec: 09/05/18 17:01 [id number]) Charges for Administration # of IVP Administrations 1 Disposition/Present on Arrival - Present on Arrival Any Indicators Present on Arrival: No History of DVT/PE: No History of Uncontrolled Diabetes: No Urinary Catheter: No History of Decub. Ulcer: No - Disposition Have Diagnosis and Disposition been Completed?: Yes Diagnosis: Hyponatremia, Nausea & vomiting, Abdominal pain, Chest pain, Atrial flutter Disposition: HOSPITALIZED Disposition Time: 18:30 Patient Plan: Admission Patient Problems: Current Active Problems Problem Status Onset Abdominal pain Acute Atrial flutter Acute Chest pain Acute Hyponatremia Acute Nausea & vomiting Acute Condition: FAIR
[2018-09-06] MEDS ORDERED: Albuterol-Ipratrop 3 mg / 0.5 (3 ml) UD IH ONE (00:11)
[2018-09-06] MEDS ORDERED: Pantoprazole 40 mg EC Tab PO STA (01:17)
--- NOTE | 2018-09-06 01:25 | CP.PCM.PN ---
Subjective - Date & Time of Evaluation Date of Evaluation: 09/06/18 Time of Evaluation: 01:18 - Subjective Subjective: Patient was seen at bedside because I was asked to co sign order of Duoneb IH and Tylenol 650 mg PO . Spoke to nurse .She said that it was given for wheezing and patient's complaint of wheezing and abd/chest pain. Patient is getting nebulizer treatment now. He states that he has pain in stomach which is sharp and burning , pointing his index finger to epigastric and jose umbilical area. Has no other complaints. Medical record was reviewed. This 63 year old white male was admitted with epigastric pain/chest pain, nausea, vomiting ,diarrhoea,head trauma one day prior to admission, hyponatremia. Has PMH of HTN,CAD, [place] plus stent placement in March 2018, TIA, dizziness, migraine, legs paraesthesia, anemia, B/L cataract, CABG, cholecystectomy. Objective - Vital Signs/Intake and Output Vital Signs (last 24 hours): Temp Pulse Resp BP Pulse Ox 98 F 71 20 120/71 96 09/05/18 14:52 09/05/18 23:47 09/05/18 23:47 09/05/18 23:30 09/05/18 23:30 - Medications Medications: Current Medications Sodium Chloride (Sodium Chloride 0.9%) 1,000 mls @ 75 mls/hr IV .[id number] MAHSA Last Admin: 09/05/18 17:02 Dose: 75 mls/hr Pantoprazole Sodium (Protonix Ec Tab) 40 mg PO STAT STA Stop: 09/06/18 01:18 - Labs Labs: 09/05/18 16:21 09/05/18 16:21 - Constitutional Appears: Well, No Acute Distress - Head Exam Head Exam: ATRAUMATIC, NORMAL INSPECTION, NORMOCEPHALIC - Eye Exam Eye Exam: Normal appearance - ENT Exam ENT Exam: Normal External Ear Exam - Neck Exam Neck Exam: Normal Inspection - Respiratory Exam Respiratory Exam: Wheezes - Cardiovascular Exam Cardiovascular Exam: absent: JVD - GI/Abdominal Exam GI & Abdominal Exam: absent: Distended - Rectal Exam Rectal Exam: Deferred - Exam Additional comments: Deferred. - Extremities Exam Extremities Exam: Normal Inspection - Back Exam Back Exam: NORMAL INSPECTION - Neurological Exam Neurological Exam: Alert, Oriented x3 - Psychiatric Exam Psychiatric exam: Normal Affect, Normal Mood - Skin Skin Exam: Normal Color Assessment and Plan - Assessment and Plan (Free Text) Assessment: Wheezing. Abdominal pain-Epigastric,periumbilical. HTN. CAD. Anemia. Hx CABG. Plan: Protonix 40 mg PO now. Tylenol and Duoneb were given earlier. Continue present management.
[2018-09-06 01:58] VITALS: BMI 22.7
--- NOTE | 2018-09-06 07:48 | CARD ---
APPROVED REPORT Date of service: 09/05/2018 EKG Measurement Heart [id number] OK P-87 [id number] <Conclusion> Atrial flutter with variable AV block Nonspecific intraventricular conduction delay T wave abnormality, consider inferior ischemia Abnormal ECG
[2018-09-06] MEDS: Albuterol-Ipratrop 3 mg / 0.5 (3 ml) UD IH SCH ×3 (10:20→20:30)
[2018-09-06] MEDS: MethylPREDNISolone 40 mg Vial IVP SCH ×2 (10:31→21:30)
[2018-09-06 10:46] LABS: BASO # 0.03 K/mm3 (0.0-2.0); BASO % 0.8 % (0.0-3.0); EOS # 0.2 (0.0-0.7); EOS % 4.5 % (1.5-5.0); HEMOGLOBIN 9.8 g/dL (14.0-18.0); LYMPH # 1.5 (1.2-3.4); LYMPH % 38.3 % (22.0-35.0); MEAN CORPUSCULAR HEMOGLOBIN 31.5 pg (25.0-35.0); MEAN CORPUSCULAR HGB CONC 34.3 g/dl (31.0-37.0); MEAN PLATELET VOLUME 8.5 fl (7.0-11.0); MONO # 0.4 (0.1-0.6); MONO % 10.3 % (1.0-6.0); RBC 3.11 10^6/uL (3.5-6.1); RED CELL DISTRIBUTION WIDTH 15.1 % (11.5-14.5); WHITE BLOOD COUNT 3.8 10^3/uL (4.5-11.0)
--- NOTE | 2018-09-06 10:50 | HP ---
DATE OF EXAM: 09/06/2018 HISTORY OF PRESENT ILLNESS: This is a 63-year-old male who is coming into the hospital complaining of epigastric pain. The patient says he was having nausea and vomiting. He had some diarrhea. He does have a history of alcoholism. The patient says that his son and were sick at home as well. He does have a history of ulcers. He said he had fall and had injured his head. He has a history of chronic back pain. The patient denies any chest pain. No headaches. Currently, he has epigastric pain. No fevers or chills. No dysuria, frequency or nocturia. No weakness in the arms or the legs. No diplopia. He says he is able to ambulate. He has a past medical history of coronary artery disease, CABG, alcohol abuse, hypertension, COPD, and TIA. The patient had a history of hyponatremia in the past and was thought to be SIADH. ALLERGIES: EVE INHIBITORS, SHELLFISH, SULFA. HOME MEDICATIONS: I am not sure if he is compliant with medications. He is on fluticasone, carvedilol, isosorbide, atorvastatin, aspirin, lisinopril. PAST MEDICAL HISTORY: 1. Coronary artery disease with stent, status post CABG. 2. Alcohol abuse. 3. TIA. 4. COPD. 5. Hypertension. PAST SURGICAL HISTORY: Carotid endarterectomy, CABG, cholecystectomy. SOCIAL HISTORY: He is a former smoker. He was smoking 2 packs per day for 30 years. He denies drugs. He says he continues to drink. REVIEW OF SYSTEMS: All other review of symptoms are within normal limits except as mentioned. PHYSICAL EXAMINATION: VITAL SIGNS: Temperature is 97.6, pulse of 90, blood pressure is 110/85, respirations 20, O2 saturation 93%. GENERAL: The patient lying in bed, uncomfortable, and in no acute distress. HEENT: Atraumatic and normocephalic. Anicteric sclerae. Moist mucosa. Trilla conjunctivae. No oral lesions. NECK: No JVD, anterior and posterior adenopathy, thyromegaly, or bruits. CARDIOVASCULAR: S1 and S2 regular. No murmur, rubs, or gallop. LUNGS: Good bilateral air entry. Bilateral wheezing. No rales or rhonchi. ABDOMEN: Bowel sounds are positive. Soft, nontender and nondistended. No hepatosplenomegaly. No rebound and no guarding EXTREMITIES: No cyanosis, clubbing, or edema. NEUROLOGIC: No facial asymmetry. Tongue is midline. No vulva deviation. Power is 5/5 upper extremity and lower extremity. Sensation intact in upper extremity and lower extremity. PSYCHIATRIC: He is awake, alert and oriented x3. No anxiety or depression. He has normal affect. GENITOURINARY: No CVA tenderness. VASCULAR: 2+ pulses in the carotid pulses and pedal pulses. SKIN: No erythema or nodules SPINE: Shows normal curvature. LABORATORY DATA: White count of 10.5, hemoglobin 10.8, platelet count is 327. His chemistry shows a sodium of 120. The patient's creatinine is 0.9, alk phos of 73, troponin 0.01. Toxicology shows alcohol less than 10. EKG shows atrial flutter with variable AV block. There is nonspecific interventricular conduction delays. Chest x-ray shows no active disease. CT shows no acute or significant findings. CT of the head done shows no acute intracranial hemorrhage. There is mild chronic white matter ischemic changes moderately volume loss. ASSESSMENT: 1. Acute chronic obstructive pulmonary disease exacerbation. 2. Atrial flutter. 3. Hyponatremia. 4. Coronary artery disease status post coronary artery bypass graft. 5. Hypertension. 6. Alcoholism. 7. Chronic anemia. PLAN: The patient is going to be admitted to the hospital. He was given IV fluids in the ER. The patient is going to continue with Coreg for his coronary artery disease as well as aspirin. He is on folic acid. I will get B12 folate levels as well as iron studies because of chronic anemia. The patient is on isosorbide, this will be continued. He is on Lipitor for dyslipidemia. The patient was given Protonix. I will continue his Protonix for his peptic ulcers. He is on a heart-healthy diet. He is going to have repeat blood work done tomorrow. Silas Guillaume MD
[2018-09-06 10:59] LABS: IRON 61 ug/dL (45-180)
[2018-09-06 11:00] LABS: ALB/GLOB RATIO 1.4 (1.1-1.8); ALBUMIN 3.5 g/dL (3.0-4.8); ALT/SGPT 8 U/L (7-56); AST/SGOT 18 U/L (17-59); BLOOD UREA NITROGEN 13 mg/dL (7-21); CALCIUM 8.6 mg/dL (8.4-10.5); GFR NON-AFRICAN AMERICAN > 60
[2018-09-06 11:08] LABS: % IRON SATURATION 23 % (20-55); TOTAL IRON BINDING CAPACITY 258 ug/dL (261-462)
[2018-09-06 17:00] LABS: FERRITIN 47.6 ng/mL
[2018-09-06 17:31] LABS: FOLATE > 20.0 ng/mL
[2018-09-06] MEDS: Sodium Chloride 0.9% 1,000 ML IV SCH (18:04)
[2018-09-06 23:44] VITALS: BP 120/71; PULSE 80; RESP 20; TEMP 97.6; O2SAT 97
== END 2018-09-07 02:43 | disposition left against medical advice (07) | DRG 641 ==
LOC: ED 13:51 → ERH 18:51 → 2RNO 23:37
PROVIDERS: ADMIT Internal Medicine Nephrology; ATTEND Internal Medicine Nephrology
DX: E87.1 Hypo-osmolality and hyponatremia (principal); I48.92 Unspecified atrial flutter; J44.1 Chronic obstructive pulmonary disease with (acute) exacerbation; D64.9 Anemia, unspecified; I10 Essential (primary) hypertension; I25.10 Atherosclerotic heart disease of native coronary artery without angina pectoris; K27.9 Peptic ulcer, site unspecified, unspecified as acute or chronic, without hemorrhage or perforation; F10.21 Alcohol dependence, in remission; R11.2 Nausea with vomiting, unspecified; E78.5 Hyperlipidemia, unspecified; Z87.891 Personal history of nicotine dependence; Z95.5 Presence of coronary angioplasty implant and graft; Z79.82 Long term (current) use of aspirin; Z95.1 Presence of aortocoronary bypass graft; Z86.73 Personal history of transient ischemic attack (TIA), and cerebral infarction without residual deficits; I25.2 Old myocardial infarction; Z88.2 Allergy status to sulfonamides

== ENCOUNTER 2018-09-29 21:37 | Emergency (ER) | payer MEDICARE, MEDICAID ==
--- NOTE | 2018-09-29 22:45 | ED PDOC ---
Arrival/HPI - General Chief Complaint: Alcohol Ingestion Time Seen by Provider: 09/29/18 21:45 Historian: Patient EM Caveat: Intoxicated - History of Present Illness Narrative History of Present Illness (Text): 09/29/18 22:43 63 year old male, whose past medical history includes ETOH abuse, coronary artery disease, COPD, and hypertension, presents to the emergency department for ETOH intoxication. Patient admits to drinking ETOH earlier today. Patient denies any fevers, chills, headache, dizziness, chest pain, shortness of breath, dyspnea on exertion, cough, abdominal pain, nausea, vomiting, diarrhea, back pain, neck pain, or any somatic complaints. Time/Duration: Prior to Arrival Symptom Onset: Gradual Symptom Course: Unchanged Activities at Onset: Light Context: Home Past Medical History - Provider Review Nursing Documentation Reviewed: Yes - Past History Past History: No Previous - Infectious Disease Hx of Infectious Diseases: None - Tetanus Immunization Tetanus Immunization: Unknown - Reproductive Currently Lactating: No - Cardiac Hx Hypertension: Yes - Pulmonary Hx Chronic Obstructive Pulmonary Disease (COPD): Yes - Neurological Hx Neurological Disorder: Yes Hx Dizziness: Yes Hx Migraine: Yes Hx Transient Ischemic Attacks (TIA): Yes - HEENT Hx HEENT Disorder: Yes (glasses) Hx Cataracts: Yes Other/Comment: R lazy eye - Renal Hx Kidney Stones: Yes - Endocrine/Metabolic Hx Endocrine Disorders: No - Hematological/Oncological Hx Blood Disorders: Yes Hx Anemia: Yes - Integumentary Hx Dermatological Disorder: Yes - Musculoskeletal/Rheumatological Hx Arthritis: Yes Hx Back Pain: Yes Hx Falls: Yes Hx Unsteady Gait: Yes - Gastrointestinal Hx Gastrointestinal Disorders: Yes (colitis) Hx Diverticulitis: Yes Hx Gastroesophageal Reflux: Yes Other/Comment: Gallstones - Genitourinary/Gynecological Hx Urinary Tract Infection: Yes - Psychiatric Hx Anxiety: Yes Hx Bipolar Disorder: Yes Hx Panic Disorder: Yes Hx Post Traumatic Stress Disorder: Yes Hx Substance Use: Yes (COCAINE,HEROIN,MARIJUANA USE. H/O.DENIES RECENT USE.) - Surgical History Hx Cardiac Catheterization: Yes Hx Cholecystectomy: Yes Hx Coronary Stent: Yes (2018) Hx Gastric Bypass Surgery: Yes Hx Open Heart Surgery: Yes - Anesthesia Hx Anesthesia: Yes Hx Anesthesia Reactions: No Hx Malignant Hyperthermia: No - Suicidal Assessment Feels Threatened In Home Enviroment: No Family/Social History - Physician Review Nursing Documentation Reviewed: Yes Family/Social History: No Known Family HX Smoking Status: Current Some Days Smoker Hx Alcohol Use: Yes (RELAPSED 04-03-18) Hx Substance Use: Yes (COCAINE,HEROIN,MARIJUANA USE. H/O.DENIES RECENT USE.) Substance used: HEROIN, MARIJUANA Hx Substance Use Treatment: No Allergies/Home Meds Allergies/Adverse Reactions: Allergies EVE Inhibitors Allergy (Verified 09/29/18 21:47) SWELLING FISH Allergy (Verified 09/29/18 21:47) ITCHING shellfish derived Allergy (Verified 09/29/18 21:47) ANAPHYLAXIS Sulfa (Sulfonamide Antibiotics) Allergy (Verified 09/29/18 21:47) RASH Home Medications: Home Meds Medication Instructions Recorded Confirmed Aspirin [Low Dose Aspirin EC] 81 mg PO DAILY 04/04/18 07/03/18 Folic Acid 1 mg PO DAILY 05/04/18 07/03/18 Isosorbide Mononitrate ER [Imdur 30 mg PO DAILY 05/04/18 07/03/18 ER] Fluticasone/Salmeterol 1 inh INH DAILY 06/17/18 07/03/18 [Fluticasone-Salmeterol 232-14] Omeprazole 40 mg PO DAILY 06/17/18 07/03/18 Carvedilol [Coreg] 3.125 mg PO DAILY 07/03/18 07/03/18 Review of Systems - Physician Review All systems were reviewed & negative as marked: Yes - Review of Systems Systems not reviewed;Unavailable: Intoxicated Constitutional: absent: Fevers Respiratory: absent: SOB, Cough Cardiovascular: absent: Chest Pain Gastrointestinal: absent: Abdominal Pain, Diarrhea, Nausea, Vomiting Musculoskeletal: absent: Back Pain, Neck Pain Neurological: absent: Headache, Dizziness Physical Exam Appearance: Positive for: Well-Appearing, Non-Toxic, Comfortable Pain Distress: None Mental Status: Positive for: Alert and Oriented X 3, other (inebriated) - Systems Exam Head: Present: Atraumatic, Normocephalic Pupils: Present: PERRL Extroacular Muscles: Present: EOMI Conjunctiva: Present: Normal Mouth: Present: Moist Mucous Membranes Neck: Present: Normal Range of Motion Respiratory/Chest: Present: Clear to Auscultation, Good Air Exchange. No: Respiratory Distress, Accessory Muscle Use Cardiovascular: Present: Regular Rate and Rhythm, Normal S1, S2. No: Murmurs Abdomen: No: Tenderness, Distention, Peritoneal Signs Back: Present: Normal Inspection Upper Extremity: Present: Normal Inspection. No: Cyanosis, Edema Lower Extremity: Present: Normal Inspection. No: Edema Neurological: Present: GCS=15, CN II-XII Intact, Speech Normal Skin: Present: Warm, Dry, Normal Color. No: Rashes Psychiatric: Present: Alert, Oriented x 3, Normal Insight, Normal Concentration, Intoxicated Medical Decision Making ED Course and Treatment: 09/29/18 22:47 Impression: 63 year old male who presents to the emergency department for ETOH intoxication. Plan: -- Labs -- Reassess and disposition Prior Visits: Notes and results from previous visits were reviewed. Progress Notes: 09/30/18 06:00 Pt. awake alert sober with steady gait in ED. - Lab Interpretations I have reviewed the lab results: Yes - Scribe Statement The provider has reviewed the documentation as recorded by the Scribe Erin Rivera Provider Scribe Attestation: All medical record entries made by the Scribe were at my direction and personally dictated by me. I have reviewed the chart and agree that the record accurately reflects my personal performance of the history, physical exam, medical decision making, and the department course for this patient. I have also personally directed, reviewed, and agree with the discharge instructions and disposition. Disposition/Present on Arrival - Present on Arrival Any Indicators Present on Arrival: No History of DVT/PE: No History of Uncontrolled Diabetes: No Urinary Catheter: No History of Decub. Ulcer: No History Surgical Site Infection Following: None - Disposition Have Diagnosis and Disposition been Completed?: Yes Diagnosis: Alcohol intoxication Disposition: HOME/ ROUTINE Disposition Time: 06:00 Patient Plan: Discharge Patient Problems: Current Active Problems Problem Status Onset Alcohol intoxication Acute Condition: STABLE Discharge Instructions (ExitCare): Alcohol Abuse and Alcoholism (DC) Referrals: Lauren Damon DO [Primary Care Provider] - Follow up with primary Alcoholics Anonymous [Outside] - Follow up with primary Forms: [employer] (Arabic)
[2018-09-29 23:31] VITALS: TEMP 97.9; O2SAT 100
[2018-09-30 06:17] VITALS: BP 110/89; PULSE 85; RESP 16
== END 2018-09-30 06:10 | disposition home or self-care (01) ==
LOC: ED 21:37
DX: F10.129 Alcohol abuse with intoxication, unspecified (principal); I10 Essential (primary) hypertension; I25.10 Atherosclerotic heart disease of native coronary artery without angina pectoris; J44.9 Chronic obstructive pulmonary disease, unspecified

== ENCOUNTER 2018-10-24 18:51 | Emergency (ER) | payer MEDICARE, MEDICAID ==
[2018-10-24 19:15] VITALS: BMI 22.8
--- NOTE | 2018-10-24 19:54 | ED PDOC ---
Arrival/HPI - General Chief Complaint: Chest Pain Historian: Patient - History of Present Illness Narrative History of Present Illness (Text): 10/24/18 19:12 63 year old male smoker, whose past medical history includes ETOH abuse, coronary artery disease, COPD, and hypertension, presents to the emergency department complaining of chest discomfort. Patient reports chest spasms across his chest that radiates to his back. Patient admits to drinking tonight. Patient denies any fever, chills, shortness of breath, nausea, vomiting, diarrhea, urinary symptoms, back pain, neck pain, headache, dizziness, or any other complaints. Symptom Onset: Gradual Symptom Course: Unchanged Activities at Onset: Light Context: Home Past Medical History - Provider Review Nursing Documentation Reviewed: Yes - Past History Past History: No Previous - Infectious Disease Hx of Infectious Diseases: None - Tetanus Immunization Tetanus Immunization: Unknown - Reproductive Currently Lactating: No - Cardiac Hx Hypertension: Yes - Pulmonary Hx Chronic Obstructive Pulmonary Disease (COPD): Yes - Neurological Hx Neurological Disorder: Yes Hx Dizziness: Yes Hx Migraine: Yes Hx Transient Ischemic Attacks (TIA): Yes - HEENT Hx HEENT Disorder: Yes (glasses) Hx Cataracts: Yes Other/Comment: R lazy eye - Renal Hx Kidney Stones: Yes - Endocrine/Metabolic Hx Endocrine Disorders: No - Hematological/Oncological Hx Blood Disorders: Yes Hx Anemia: Yes - Integumentary Hx Dermatological Disorder: Yes - Musculoskeletal/Rheumatological Hx Arthritis: Yes Hx Back Pain: Yes Hx Falls: Yes Hx Unsteady Gait: Yes - Gastrointestinal Hx Gastrointestinal Disorders: Yes (colitis) Hx Diverticulitis: Yes Hx Gastroesophageal Reflux: Yes Other/Comment: Gallstones - Genitourinary/Gynecological Hx Urinary Tract Infection: Yes - Psychiatric Hx Anxiety: Yes Hx Bipolar Disorder: Yes Hx Panic Disorder: Yes Hx Post Traumatic Stress Disorder: Yes Hx Substance Use: Yes (COCAINE,HEROIN,MARIJUANA USE. H/O.DENIES RECENT USE.) - Surgical History Hx Cardiac Catheterization: Yes Hx Cholecystectomy: Yes Hx Coronary Stent: Yes (2018) Hx Gastric Bypass Surgery: Yes Hx Open Heart Surgery: Yes - Anesthesia Hx Anesthesia: Yes Hx Anesthesia Reactions: No Hx Malignant Hyperthermia: No - Suicidal Assessment Feels Threatened In Home Enviroment: No Family/Social History - Physician Review Nursing Documentation Reviewed: Yes Family/Social History: No Known Family HX Smoking Status: Current Some Days Smoker Hx Alcohol Use: Yes (RELAPSED 04-03-18) Hx Substance Use: Yes (COCAINE,HEROIN,MARIJUANA USE. H/O.DENIES RECENT USE.) Substance used: HEROIN, MARIJUANA Hx Substance Use Treatment: No Allergies/Home Meds Allergies/Adverse Reactions: Allergies EVE Inhibitors Allergy (Verified 09/29/18 21:47) SWELLING FISH Allergy (Verified 09/29/18 21:47) ITCHING shellfish derived Allergy (Verified 09/29/18 21:47) ANAPHYLAXIS Sulfa (Sulfonamide Antibiotics) Allergy (Verified 09/29/18 21:47) RASH Home Medications: Home Meds Medication Instructions Recorded Confirmed Aspirin [Low Dose Aspirin EC] 81 mg PO DAILY 04/04/18 07/03/18 Folic Acid 1 mg PO DAILY 05/04/18 07/03/18 Isosorbide Mononitrate ER [Imdur 30 mg PO DAILY 05/04/18 07/03/18 ER] Fluticasone Propion/Salmeterol 1 inh INH DAILY 06/17/18 07/03/18 [Airduo Resp. Fluticasone-Salmeterol 232-14] Omeprazole 40 mg PO DAILY 06/17/18 07/03/18 Carvedilol [Coreg] 3.125 mg PO DAILY 07/03/18 07/03/18 Review of Systems - Physician Review All systems were reviewed & negative as marked: Yes - Review of Systems Constitutional: absent: Fevers, Other (chills) Respiratory: absent: SOB Cardiovascular: Chest Pain Gastrointestinal: absent: Diarrhea, Nausea, Vomiting Genitourinary Male: absent: Dysuria, Frequency, Hematuria Musculoskeletal: absent: Back Pain, Neck Pain Neurological: absent: Headache, Dizziness Physical Exam - Physical Exam Narrative Physical Exam (Text): Gen: VS reviewed, alert, well developed, well nourished, nontoxic, mild distress. Slurred speech. ENT: normal pharynx. Eye: EOMI, PERRL. Neck: no JVD, supple, no adenopathy. CV: regular rate, irregular irregular rhythm, no rubs, no murmur, no gallops, S1, S2, pulses equal and strong. Pulm: no distress, clear to auscultation, no wheeze, no rhonchi, breath sounds equal, no rales. Abd: soft, nontender, no guarding, no rebound, no rigidity, normal bowel sounds. Ext: no edema. Skin: good color, no rash, no cyanosis. Psych: Slurred speech, responds appropriately to questions, normal affect. Neuro: oriented x 3, CN2-12 intact grossly, motor intact, sensation intact. Vital Signs Reviewed: Yes Vital Signs Temp Pulse Resp BP Pulse Ox 10/24/18 19:05 98.7 F 70 18 111/68 98 Temperature: Afebrile Blood Pressure: Normal Pulse: Regular Respiratory Rate: Normal Medical Decision Making ED Course and Treatment: 10/24/18 19:18 Impression: 63 year old male presents complaining of chest spasms across the chest. Patient admits to drinking tonight. Plan: -- EKG -- labs -- Chest X-ray -- Geodon Inj -- Restraints -- Reassess and disposition Prior Visits: Notes and results from previous visits were reviewed. Progress Notes: 10/24/18 19:12 This patients severe and persistent agitated state is preventing me from assessing the patient to determine if a serious underlying medical condition exists. The patient's behavior is creating an unsafe situation and placing himself, staff, and other patients at risk. The patient is: (+) verbally abusive and threatening to staff; apparently under the influence of an illicit subs tance(s), uncooperative and unable to comprehend his/her situation or make informed choices regarding his/her own health. Non-pharmacologic approaches, including verbal de-escalation and reducing environmental stimulation, were attempted but unsuccessful. 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 Oral pharmacotherapy was offered to the patient in an effort to calm the patient, permit an accurate assessment and allow the patient to participate in his/her own treatment plan, but the patient was uncooperative, refused, and did not consent to oral therapy so the parenteral route was utilized. Patient sedated with 10mg geodon under my supervision. The patient was reassessed by me 15 minutes after medication administration. Patient re-assessed and found to be with resolved agitation, sleeping comfortably, with stable vitals. In summary, pharmacologic intervention targeted at this patients underlying illness was successful in alleviating agitation, facilitating an accurate assessment and ensuring safety for the patient, staff and others. 10/25/18 04:28 patient is awake and alert, clear speech and sensorium, steady gait, patient denies any chest pain or discomfort. patient is stable for discharge. - Lab Interpretations I have reviewed the lab results: Yes - RAD Interpretation Radiology Orders: 10/24/18 19:31 CHEST PORTABLE [RAD] Stat Hydraulic Spinner: ED Physician - EKG Interpretation EKG Interpretation (Text): 10/24/18 22:12 EKG: Ordered, reviewed, and independently interpreted the EKG. Rate : 86 BPM Rhythm : Atrial flutter Interpretation : Variable AV block, LVH, no QRS abnormalities. Interpreted by ED Physician: Yes Type: 12 lead EKG - Scribe Statement The provider has reviewed the documentation as recorded by the Arina Rice Provider Scribe Attestation: All medical record entries made by the Sarahibe were at my direction and personally dictated by me. I have reviewed the chart and agree that the record accurately reflects my personal performance of the history, physical exam, medical decision making, and the department course for this patient. I have also personally directed, reviewed, and agree with the discharge instructions and disposition. Disposition/Present on Arrival - Present on Arrival Any Indicators Present on Arrival: No History of DVT/PE: No History of Uncontrolled Diabetes: No Urinary Catheter: No History of Decub. Ulcer: No History Surgical Site Infection Following: None - Disposition Have Diagnosis and Disposition been Completed?: Yes Diagnosis: Alcohol intoxication Disposition: HOME/ ROUTINE Disposition Time: 04:30 Patient Plan: Discharge Condition: STABLE Discharge Instructions (ExitCare): Alcohol Use - When Is Drinking a Problem? Additional Instructions: return for any problems or concerns. seek help for your alcohol abuse. Forms: [employer] (Kyrgyz)
[2018-10-24 20:01] LABS: BASO # 0.07 K/mm3 (0.0-2.0); BASO % 1.5 % (0.0-3.0); EOS # 0.2 (0.0-0.7); EOS % 3.4 % (1.5-5.0); HEMOGLOBIN 11.2 g/dL (14.0-18.0); LYMPH % 42.3 % (22.0-35.0); MEAN CELL VOLUME 91.7 fl (80.0-105.0); MEAN CORPUSCULAR HEMOGLOBIN 30.9 pg (25.0-35.0); MEAN CORPUSCULAR HGB CONC 33.7 g/dl (31.0-37.0); MEAN PLATELET VOLUME 9.1 fl (7.0-11.0); MONO # 0.5 (0.1-0.6); MONO % 10.3 % (1.0-6.0); RBC 3.62 10^6/uL (3.5-6.1); RED CELL DISTRIBUTION WIDTH 15.5 % (11.5-14.5); WHITE BLOOD COUNT 4.8 10^3/uL (4.5-11.0)
[2018-10-24 20:07] LABS: INR 1.07; PROTHROMBIN TIME 11.9 SECONDS (9.4-12.5)
[2018-10-24 20:16] LABS: ALB/GLOB RATIO 1.3 (1.1-1.8); ALBUMIN 3.9 g/dL (3.0-4.8); ALT/SGPT 14 U/L (7-56); AST/SGOT 44 U/L (17-59); BLOOD UREA NITROGEN 31 mg/dL (7-21); CALCIUM 9.3 mg/dL (8.4-10.5); GFR NON-AFRICAN AMERICAN > 60
[2018-10-24 20:27] LABS: TROPONIN I < 0.01 ng/mL
[2018-10-24] MEDS ORDERED: Dextrose 5%/0.45% NS 1,000 ML IV SCH (20:30)
[2018-10-25 04:35] VITALS: BP 138/70; PULSE 69; RESP 17; O2SAT 96
[2018-10-25 04:41] VITALS: TEMP 98
--- NOTE | 2018-10-25 09:34 | RAD ---
HISTORY: chest pain COMPARISON: Chest x-ray performed 09/05/18, CT of the chest without contrast performed 07/03/18 TECHNIQUE: Chest, one view. FINDINGS: LUNGS: Right upper lobe rounded opacity persists consistent with costochondral cartilage as seen on CT performed 07/03/18 Please note that chest x-ray has limited sensitivity for the detection of pulmonary masses. PLEURA: No significant pleural effusion identified. No definite pneumothorax . CARDIOVASCULAR: Median sternotomy wires with evidence of CABG. Heart size appears within normal limits. OSSEOUS STRUCTURES: Osseous demineralization. VISUALIZED UPPER ABDOMEN: Unremarkable. OTHER FINDINGS: None. IMPRESSION: No acute findings. Findings as above.
--- NOTE | 2018-10-25 15:19 | CARD ---
APPROVED REPORT Date of service: 10/24/2018 EKG Measurement Heart [id number] SD P-86 [id number] <Conclusion> Atrial flutter with variable AV block Minimal voltage criteria for LVH, may be normal variant Abnormal ECG
== END 2018-10-25 04:40 | disposition home or self-care (01) ==
LOC: ED 18:51
DX: F10.129 Alcohol abuse with intoxication, unspecified (principal); I10 Essential (primary) hypertension; I25.10 Atherosclerotic heart disease of native coronary artery without angina pectoris; J44.9 Chronic obstructive pulmonary disease, unspecified; Z86.73 Personal history of transient ischemic attack (TIA), and cerebral infarction without residual deficits
CPT/HCPCS: 71045; 80053; 83735; 84484; 85025; 85610; 93005; 96372; 99285; G0480; J3486; J7042

== ENCOUNTER 2018-10-27 12:04 | Emergency (ER) | payer MEDICARE, MEDICAID | END 2018-10-28 07:24 | disposition left against medical advice (07) | LOC: ED 12:04 | DX: Z02.89 Encounter for other administrative examinations (principal); M79.606 Pain in leg, unspecified ==

== ENCOUNTER 2018-10-27 18:53 | Inpatient (IN) | payer MEDICARE, MEDICAID ==
--- NOTE | 2018-10-27 19:33 | ED PDOC ---
Arrival/HPI - General Chief Complaint: Shortness Of Breath Time Seen by Provider: 10/27/18 19:17 Historian: Patient - History of Present Illness Narrative History of Present Illness (Text): 10/27/18 19:27 63 m with copd, cad, alcohol dependence presents to the ED with chief complaint of left sided chest pain. Patient states it started approximately 530 today. Localized to the left chest, no radiating, described as "angina". Patient unable to be focused to provide further details of physical complaints due to intoxication. Despite patient's verbal aggressive which is well know to this ED from previous visits, the patient can be momentarily redirected to get a brief history. Past Medical History - Provider Review Nursing Documentation Reviewed: Yes - Past History Past History: No Previous - Infectious Disease Hx of Infectious Diseases: None - Tetanus Immunization Tetanus Immunization: Unknown - Reproductive Currently Lactating: No - Cardiac Hx Cardiac Disorders: Yes Hx MD: Yes Hx Hypertension: Yes - Pulmonary Hx Respiratory Disorders: Yes Hx Chronic Obstructive Pulmonary Disease (COPD): Yes - Neurological Hx Neurological Disorder: Yes Hx Dizziness: Yes Hx Migraine: Yes Hx Transient Ischemic Attacks (TIA): Yes - HEENT Hx HEENT Disorder: Yes (glasses) Hx Cataracts: Yes Other/Comment: R lazy eye - Renal Hx Renal Disorder: Yes Hx Kidney Stones: Yes - Endocrine/Metabolic Hx Endocrine Disorders: No - Hematological/Oncological Hx Blood Disorders: Yes Hx Anemia: Yes - Integumentary Hx Dermatological Disorder: Yes - Musculoskeletal/Rheumatological Hx Musculoskeletal Disorders: Yes Hx Arthritis: Yes Hx Back Pain: Yes Hx Falls: Yes Hx Unsteady Gait: Yes - Gastrointestinal Hx Gastrointestinal Disorders: Yes Hx Diverticulitis: Yes Hx Gastroesophageal Reflux: Yes Other/Comment: Gallstones - Genitourinary/Gynecological Hx Genitourinary Disorders: Yes Hx Urinary Tract Infection: Yes - Psychiatric Hx Psychophysiologic Disorder: Yes Hx Anxiety: Yes Hx Bipolar Disorder: Yes Hx Panic Disorder: Yes Hx Post Traumatic Stress Disorder: Yes Hx Substance Use: Yes (COCAINE,HEROIN,MARIJUANA USE. H/O.DENIES RECENT USE.) - Surgical History Hx Cardiac Catheterization: Yes Hx Cholecystectomy: Yes Hx Coronary Stent: Yes Hx Gastric Bypass Surgery: Yes Hx Open Heart Surgery: Yes - Anesthesia Hx Anesthesia: Yes Hx Anesthesia Reactions: No Hx Malignant Hyperthermia: No - Suicidal Assessment Feels Threatened In Home Enviroment: No Family/Social History Family/Social History: Unknown Family HX Smoking Status: Current Some Days Smoker Hx Alcohol Use: Yes (RELAPSED 04-03-18) Hx Substance Use: Yes (COCAINE,HEROIN,MARIJUANA USE. H/O.DENIES RECENT USE.) Substance used: HEROIN, MARIJUANA Hx Substance Use Treatment: No Allergies/Home Meds Allergies/Adverse Reactions: Allergies EVE Inhibitors Allergy (Verified 10/27/18 19:07) SWELLING FISH Allergy (Verified 10/27/18 19:07) ITCHING shellfish derived Allergy (Verified 10/27/18 19:07) ANAPHYLAXIS Sulfa (Sulfonamide Antibiotics) Allergy (Verified 10/27/18 19:07) RASH Home Medications: Home Meds Medication Instructions Recorded Confirmed Aspirin [Low Dose Aspirin EC] 81 mg PO DAILY 04/04/18 07/03/18 Folic Acid 1 mg PO DAILY 05/04/18 07/03/18 Isosorbide Mononitrate ER [Imdur 30 mg PO DAILY 05/04/18 07/03/18 ER] Fluticasone Propion/Salmeterol 1 inh INH DAILY 06/17/18 07/03/18 [Airduo Resp. Fluticasone-Salmeterol 232-14] Omeprazole 40 mg PO DAILY 06/17/18 07/03/18 Carvedilol [Coreg] 3.125 mg PO DAILY 07/03/18 07/03/18 Review of Systems - Review of Systems Systems not reviewed;Unavailable: Uncooperative (due to intoxication) Physical Exam - Physical Exam Narrative Physical Exam (Text): 10/27/18 19:33 Gen: VS reviewed, alert, well developed, well nourished, nontoxic, mild distress Eye: EOMI, PERRL Neck: no JVD, supple, no adenopathy CV: regular rate, regular rhythm, no rubs,no murmur, S1, S2 Pulm: no distress, clear to auscultation, no wheeze, no rhonchi, breath sounds equal, no rales Abd: soft, nontender, no guarding, no rebound, no rigidity Ext: no edema Skin: good color, no rash, no cyanosis Psych: responds appropriately to questions, normal affect Neuro: oriented x3, unabel to fully assess second to intoxication Vital Signs Reviewed: Yes Temperature: Afebrile Blood Pressure: Hypotensive Pulse: Regular Respiratory Rate: Normal Appearance: Positive for: Well-Appearing, Non-Toxic, Comfortable Pain Distress: None Mental Status: Positive for: Alert and Oriented X 3 Medical Decision Making ED Course and Treatment: 10/27/18 19:25 This patients severe and persistent agitated state is preventing me from assessing the patient to determine if a serious underlying medical condition exists. The patient's behavior is creating an unsafe situation and placing himself, staff, and other patients at risk. The patient is: (+) verbally abusive and threatening to staff; apparently under the influence of an illicit substance(s), uncooperative and unable to comprehend his/her situation or make informed choices regarding his/her own health. Non-pharmacologic approaches, including verbal de-escalation and reducing environmental stimulation, were attempted but unsuccessful. In an attempt to develop a provisional diagnosis of the most likely cause of this patients agitated state, I have categorized the patient's condition as follows: agitation due to intoxication: REPORTING DEVELOPER depressant suspected-patient observed to drink 'E&J' while in the ED and was taken from him. Oral pharmacotherapy was offered to the patient in an effort to calm the patient, permit an accurate assessment and allow the patient to participate in his/her own treatment plan, but the patient was uncooperative, refused, and did not consent to oral therapy so the parenteral route was utilized. Patient sedated with geodon under my supervision. The patient was reassessed by me 15 minutes after medication administration. Patient re-assessed and found to be with resolved agitation, sleeping comfortably, with stable vitals. In summary, pharmacologic intervention targeted at this patients underlying illness was successful in alleviating agitation, facilitating an accurate assessment and ensuring safety for the patient, staff and others. 10/27/18 19:34 patient presents with another episode of chest pain while drunk. will workup for acs, serial troponin and observe to sobriety. 10/28/18 04:54 patienit is now awake and alert, heart rate noticed to be in the 150's, patient is vomiting and is diaphoretic, will give dig to attempt rate control. 10/28/18 05:40 10/28/18 05:[address] lema to the hospitalist service. patient to be admitted for alcohol withdrawal - Critical Care Critical Care Minutes: 60 minutes - RAD Interpretation Narrative RAD Interpretations (Text): 10/28/18 00:23 CT Chest without Intravenous Contrast. CLINICAL HISTORY: PNEMONIA TECHNIQUE: Axial computed tomography images of the chest without intravenous contrast. 401.00 mGy-cm CONTRAST: Without COMPARISON: None provided. FINDINGS: LUNGS: The lungs are clear. No pulmonary mass. PLEURAL SPACES: No evidence of pneumothorax. No pleural effusion. HEART: No cardiomegaly. No pericardial effusion. Status post prior CABG surgery. LYMPH NODES: There are several mildly enlarged anterior and middle mediastinal lymph nodes noted. BONES: There is acute or subacute wedge compression fracture injury of T8 noted. The estimated loss of vertebral body height is between 60-70%. UPPER ABDOMEN: The upper abdomen demonstrates prior cholecystectomy. IMPRESSION: 1. Acute or subacute wedge compression fracture injury of T8 as described above. 2. Status post CABG surgery. 3. Several mildly enlarged anterior and middle mediastinal lymph nodes are noted. 4. Status post cholecystectomy. Foot Roentgenologist: Radiologist - EKG Interpretation EKG Interpretation (Text): 10/27/18 20:28 ekg my read: atrial flutter at 1085 bpm, nml qrs, artifact, unchanged from prior ekg's Interpreted by ED Physician: Yes Disposition/Present on Arrival - Present on Arrival Any Indicators Present on Arrival: No History of DVT/PE: No History of Uncontrolled Diabetes: No Urinary Catheter: No History of Decub. Ulcer: No History Surgical Site Infection Following: None - Disposition Have Diagnosis and Disposition been Completed?: Yes Diagnosis: Atrial flutter, Alcohol abuse Disposition: HOSPITALIZED Disposition Time: 05:07 Patient Plan: ICU, Observation Patient Problems: Current Active Problems Problem Status Onset Alcohol abuse Acute Atrial flutter Acute Condition: GUARDED
[2018-10-27 20:58] LABS: ALB/GLOB RATIO 1.6 (1.1-1.8); ALBUMIN 3.6 g/dL (3.0-4.8); ALT/SGPT 14 U/L (7-56); AST/SGOT 47 U/L (17-59); BLOOD UREA NITROGEN 18 mg/dL (7-21); CALCIUM 8.5 mg/dL (8.4-10.5); GFR NON-AFRICAN AMERICAN > 60
[2018-10-27] MEDS ORDERED: Sodium Chloride 0.9% 1,000 ML IV STA (20:58)
[2018-10-27 21:03] LABS: B-TYPE NATRIURETIC PEPTIDE 1840 pg/mL (0-450); TROPONIN I < 0.01 ng/mL
[2018-10-27 21:06] LABS: BASO # 0.03 K/mm3 (0.0-2.0); BASO % 0.6 % (0.0-3.0); EOS # 0.2 (0.0-0.7); EOS % 2.8 % (1.5-5.0); HEMOGLOBIN 9.7 g/dL (14.0-18.0); LYMPH # 1.8 (1.2-3.4); LYMPH % 34.5 % (22.0-35.0); MEAN CELL VOLUME 92.4 fl (80.0-105.0); MEAN CORPUSCULAR HEMOGLOBIN 30.9 pg (25.0-35.0); MEAN CORPUSCULAR HGB CONC 33.4 g/dl (31.0-37.0); MEAN PLATELET VOLUME 9.1 fl (7.0-11.0); MONO # 0.5 (0.1-0.6); MONO % 10.2 % (1.0-6.0); RBC 3.14 10^6/uL (3.5-6.1); WHITE BLOOD COUNT 5.3 10^3/uL (4.5-11.0)
[2018-10-27 21:11] LABS: INR 1.14; PARTIAL THROMBOPLASTIN TIME 31.2 Seconds (26.9-38.3); PROTHROMBIN TIME 12.6 SECONDS (9.4-12.5)
[2018-10-28] MEDS ORDERED: Digoxin 500 mcg/2ml (0.5 mg/2ml) Inj IVP STA (04:55)
--- NOTE | 2018-10-28 05:27 | CP.PCM.HP ---
<SaraRyland - Last Filed: 10/28/18 06:32> History of Present Illness - History of Present Illness History of Present Illness: PGY-[address] History and Physical [address] Rashid Patient is a 63 year old male with past medical history of noncompliance with multiple past ED visits, HTN, COPD, TIA, CAD with stents, CABG, EtOH abuse, and active tobacco abuse presenting to the ED intoxicated with initial complaint of localized L sided chest pain described as "angina". Patient was unable to be focused to provide further details of physical complaints due to intoxication. Patient increasingly agitated and verbally abusive to staff in ED, refusing treatment. Oral pharmacotherapy was offered to the patient in an effort to calm the patient, permit an accurate assessment and allow the patient to participate in his/her own treatment plan, but the patient was uncooperative, refused, and did not consent to oral therapy so the parenteral route was utilized. Patient was sedated with geodon in the ED. The patient was reassessed 15 minutes after medication administration and found to be with resolved agitation, sleeping comfortably, with stable vitals. Serial troponins drawn in the ED were within normal limits and pain had subsided, per ED physician. Patient later awoke, in a startled state. Monitor showed patient to be tachycardic in the 150s. EKG obtained by ED demonstrated atrial flutter at 108 bpm. Patient was nonverbal during my encounter, gave the middle finger when asked how he is feeling. No further information obtained due to patient's clinical status. PMHx: HTN, COPD, TIA, CAD with stents, CABG, EtOH abuse, and active tobacco abuse PSHx: Carotid enarterectomy and cholecystectomy Social Hx: former smoker 2 ppd for 30 years, denies illicit drug use, admits to alcohol abuse. Lives in [facility]. Medications: refer to [facility] Allergies: Shellfish derived substances, Sulfa Primary Medical Doctor: Dr. Damon Present on Admission - Present on Admission Any Indicators Present on Admission: No Review of Systems - Review of Systems Systems not reviewed;Unavailable: Altered Mental Status, Intoxicated, Uncooperative Past Patient History - Infectious Disease Hx of Infectious Diseases: None - Tetanus Immunizations Tetanus Immunization: Unknown - Past Medical History & Family History Past Medical History?: Yes - Past Social History Smoking Status: Current Some Days Smoker - CARDIAC Hx Cardiac Disorders: Yes Hx Heart Attack: Yes Hx Hypertension: Yes - PULMONARY Hx Respiratory Disorders: Yes Hx Chronic Obstructive Pulmonary Disease (COPD): Yes - NEUROLOGICAL Hx Neurological Disorder: Yes Hx Dizziness: Yes Hx Migraine: Yes Hx Transient Ischemic Attacks (TIA): Yes - HEENT Hx HEENT Problems: Yes (glasses) Hx Cataracts: Yes Other/Comment: R lazy eye - RENAL Hx Chronic Kidney Disease: Yes Hx Kidney Stones: Yes - ENDOCRINE/METABOLIC Hx Endocrine Disorders: No - HEMATOLOGICAL/ONCOLOGICAL Hx Blood Disorders: Yes Hx Anemia: Yes - INTEGUMENTARY Hx Dermatological Problems: Yes - MUSCULOSKELETAL/RHEUMATOLOGICAL Hx Musculoskeletal Disorders: Yes Hx Arthritis: Yes Hx Back Pain: Yes Hx Falls: Yes Hx Unsteady Gait: Yes - GASTROINTESTINAL Hx Gastrointestinal Disorders: Yes Hx Diverticulitis: Yes Hx Gastroesophageal Reflux: Yes Other/Comment: Gallstones - GENITOURINARY/GYNECOLOGICAL Hx Genitourinary Disorders: Yes Hx Urinary Tract Infection: Yes - PSYCHIATRIC Hx Psychophysiologic Disorder: Yes Hx Anxiety: Yes Hx Bipolar Disorder: Yes Hx Panic Symptoms: Yes Hx Post Traumatic Stress Disorder: Yes Hx Substance Use: Yes (COCAINE,HEROIN,MARIJUANA USE. H/O.DENIES RECENT USE.) - SURGICAL HISTORY Hx Cardiac Catheterization: Yes Hx Cholecystectomy: Yes Hx Coronary Stent: Yes Hx Gastric Bypass Surgery: Yes Hx Open Heart Surgery: Yes - ANESTHESIA Hx Anesthesia: Yes Hx Anesthesia Reactions: No Hx Malignant Hyperthermia: No Meds Allergies/Adverse Reactions: Allergies Allergy/AdvReac Type Severity Reaction Status Date / Time EVE Inhibitors Allergy SWELLING Verified 10/27/18 19:07 FISH Allergy ITCHING Verified 10/27/18 19:07 shellfish derived Allergy ANAPHYLAXIS Verified 10/27/18 19:07 Sulfa (Sulfonamide Allergy RASH Verified 10/27/18 19:07 Antibiotics) Physical Exam - Constitutional Appears: Agitated, Cachectic, Chronically Ill Additional comments: nonverbal, uncooperative, mild distress - Eye Exam Eye Exam: Normal appearance, PERRL - Neck Exam Neck exam: Positive for: Normal Inspection - Respiratory Exam Respiratory Exam: Clear to Auscultation Bilateral, NORMAL BREATHING PATTERN. absent: Accessory Muscle Use, Rales, Rhonchi, Wheezes, Respiratory Distress, Stridor - Cardiovascular Exam Cardiovascular Exam: Tachycardia, Irregular Rhythm, +S1, +S2 - GI/Abdominal Exam GI & Abdominal Exam: Normal Bowel Sounds, Soft. absent: Distended, Firm, Guarding, Rebound, Rigid, Tenderness - Extremities Exam Extremities exam: Positive for: normal capillary refill, normal inspection, pedal pulses present. Negative for: calf tenderness, pedal edema - Neurological Exam Neurological exam: Alert - Skin Skin Exam: Dry, Intact, Normal Color, Warm Results - Vital Signs Recent Vital Signs: Last Vital Signs Temp 98.6 F 10/27/18 19:25 Pulse 68 10/27/18 20:42 Resp 21 10/27/18 20:42 BP 116/66 10/27/18 20:42 Pulse Ox 97 10/27/18 20:42 - Labs Result Diagrams: 10/27/18 20:34 10/27/18 20:34 Labs: Laboratory Results - last 24 hr 10/27/18 10/27/18 10/27/18 20:34 20:34 20:34 WBC 5.3 RBC 3.14 L Hgb 9.7 L Hct 29.0 L MCV 92.4 MCH 30.9 MCHC 33.4 RDW 16.0 H Plt Count 279 MPV 9.1 Neut % (Auto) 51.9 Lymph % (Auto) 34.5 Morehouse % (Auto) 10.2 H Eos % (Auto) 2.8 Baso % (Auto) 0.6 Lymph # (Auto) 1.8 [place]house # (Auto) 0.5 Eos # (Auto) 0.2 Baso # (Auto) 0.03 Absolute Neuts (auto) 2.76 PT 12.6 H INR 1.14 APTT 31.2 Sodium 134 Potassium 3.8 Chloride 98 Carbon Dioxide 24 Anion Gap 16 BUN 18 Creatinine 0.9 Est GFR ( Amer) > 60 Est GFR (Non-Af Amer) > 60 Random Glucose 57 L Calcium 8.5 Magnesium 1.8 Total Bilirubin 0.4 AST 47 ALT 14 Alkaline Phosphatase 61 Troponin I < 0.01 NT-Pro-B Natriuret Pep 1840 H Total Protein 6.0 Albumin 3.6 Globulin 2.3 Albumin/Globulin Ratio 1.6 Alcohol, Quantitative 10/27/18 10/28/18 20:34 01:10 WBC RBC Hgb Hct MCV MCH MCHC RDW Plt Count MPV Neut % (Auto) Lymph % (Auto) [place] % (Auto) Eos % (Auto) Baso % (Auto) Lymph # (Auto) [place] # (Auto) Eos # (Auto) Baso # (Auto) Absolute Neuts (auto) PT INR APTT Sodium Potassium Chloride Carbon Dioxide Anion Gap BUN Creatinine Est GFR ( Amer) Est GFR (Non-Af Amer) Random Glucose Calcium Magnesium Total Bilirubin AST ALT Alkaline Phosphatase Troponin I < 0.01 NT-Pro-B Natriuret Pep Total Protein Albumin Globulin Albumin/Globulin Ratio Alcohol, Quantitative 193 H Assessment & Plan - Assessment and Plan (Free Text) Plan: Tachycardia 2/2 atrial fib/atrial flutter/sinus tach -last EKG recorded: atrial flutter at 108 bpm -s/p digoxin 0.25 mg x 1 in ED -cardizem 10 mg IVP x 1 -repeat EKG -monitor and storage bin tender Alcohol intoxication, Hx of alcohol abuse -serum alcohol 193 -s/p ativan 2 mg IVP x 1 in ED -CIWA protocol -banana bag Alcohol withdrawal -CIWA protocol -banana bag -librium 50 mg PO q6 ninfa -ativan 2 mg IVP q2 prn -continue to monitor Acute on chronic T8 fracture -CT chest: acute on chronic wedge compression fracture injury of T8 -f/u finalized read - Will consider IR consult for kyphoplasty CAD with stents -continue home ASA, plavix, coreg, statin Hx of COPD -held home meds -xopenex q3 prn Hx of HTN -currently normotensive, continue to monitor -home lisinopril held PPx, Diet, Disposition -DVT ppx: scs, heparin 5000 units sc q8 -GI ppx: protonix 40 mg IVP daily -Diet: HHD Case discussed with Dr. Gay Ruiz DO, PGY-1 <Bhavesh Rashid - Last Filed: 10/28/18 06:59> Results - Vital Signs Recent Vital Signs: Last Vital Signs Temp 98.6 F 10/27/18 19:25 Pulse 78 10/28/18 06:56 Resp 20 10/28/18 06:56 BP 95/35 L 10/28/18 06:56 Pulse Ox 97 10/28/18 06:56 - Labs Result Diagrams: 10/27/18 20:34 10/27/18 20:34 Labs: Laboratory Results - last 24 hr 10/27/18 10/27/18 10/27/18 20:34 20:34 20:34 WBC 5.3 RBC 3.14 L Hgb 9.7 L Hct 29.0 L MCV 92.4 MCH 30.9 MCHC 33.4 RDW 16.0 H Plt Count 279 MPV 9.1 Neut % (Auto) 51.9 Lymph % (Auto) 34.5 [place] % (Auto) 10.2 H Eos % (Auto) 2.8 Baso % (Auto) 0.6 Lymph # (Auto) 1.8 [place] # (Auto) 0.5 Eos # (Auto) 0.2 Baso # (Auto) 0.03 Absolute Neuts (auto) 2.76 PT 12.6 H INR 1.14 APTT 31.2 Sodium 134 Potassium 3.8 Chloride 98 Carbon Dioxide 24 Anion Gap 16 BUN 18 Creatinine 0.9 Est GFR ( Amer) > 60 Est GFR (Non-Af Amer) > 60 Random Glucose 57 L Calcium 8.5 Magnesium 1.8 Total Bilirubin 0.4 AST 47 ALT 14 Alkaline Phosphatase 61 Troponin I < 0.01 NT-Pro-B Natriuret Pep 1840 H Total Protein 6.0 Albumin 3.6 Globulin 2.3 Albumin/Globulin Ratio 1.6 Alcohol, Quantitative 10/27/18 10/28/18 20:34 01:10 WBC RBC Hgb Hct MCV MCH MCHC RDW Plt Count MPV Neut % (Auto) Lymph % (Auto) [place] % (Auto) Eos % (Auto) Baso % (Auto) Lymph # (Auto) [place] # (Auto) Eos # (Auto) Baso # (Auto) Absolute Neuts (auto) PT INR APTT Sodium Potassium Chloride Carbon Dioxide Anion Gap BUN Creatinine Est GFR ( Amer) Est GFR (Non-Af Amer) Random Glucose Calcium Magnesium Total Bilirubin AST ALT Alkaline Phosphatase Troponin I < 0.01 NT-Pro-B Natriuret Pep Total Protein Albumin Globulin Albumin/Globulin Ratio Alcohol, Quantitative 193 H Attending/Attestation - Attestation I have personally seen and examined this patient.: Yes I have fully participated in the care of the patient.: Yes I have reviewed all pertinent clinical information: Yes
[2018-10-28 05:29] VITALS: PULSE 146
[2018-10-28] MEDS ORDERED: Sodium Chloride 0.9% 500 ML IV STA (06:29)
[2018-10-28] MEDS ORDERED: Sodium Chloride 0.9% 250 ML IV STA (06:40)
[2018-10-28] MEDS: Folic Acid 1 MG, Thiamine 100 MG, Multivitamin (MVI) 10 ML in Dextrose 5% In Water 1,00... IV SCH ×2 (07:17→19:32)
--- NOTE | 2018-10-28 08:29 | RAD ---
Date of service: 10/27/2018 HISTORY: chest pain COMPARISON: 10/24/2018 TECHNIQUE: 1 view obtained. FINDINGS: LUNGS: No active pulmonary disease. PLEURA: No significant pleural effusion identified, no pneumothorax apparent. CARDIOVASCULAR: No aortic atherosclerotic calcification present. Normal cardiac size. No pulmonary vascular congestion. OSSEOUS STRUCTURES: Sternal wires VISUALIZED UPPER ABDOMEN: Normal. OTHER FINDINGS: None. IMPRESSION: No active disease.
--- NOTE | 2018-10-28 10:03 | CT ---
Date of service: 10/27/2018 PROCEDURE: CT Chest without contrast HISTORY: abnormal cxr, pneumonia COMPARISON: Plain radiograph from 10/27/2018. TECHNIQUE: Contiguous axial images were obtained through the chest without intravenous contrast enhancement. Sagittal and coronal reconstructions were performed. Radiation dose: Total exam DLP = 401.51 mGy-cm. This CT exam was performed using one or more of the following dose reduction techniques: Automated exposure control, adjustment of the mA and/or kV according to patient size, and/or use of iterative reconstruction technique. FINDINGS: LUNGS: There is pulmonary hyperinflation. There is diffuse centrilobular emphysema in lungs. There are fibrotic changes in the right upper lobe and biapical pleural parenchymal scarring. No evidence for nodule, mass or consolidation. There are no endobronchial lesions. There is mild diffuse bronchial wall thickening and mild bronchiectasis. MEDIASTINUM: Unremarkable thoracic aorta. No aneurysm. Normal sized heart. Main pulmonary artery unremarkable. No vascular congestion. There are prominent subcentimeter mediastinal lymph nodes. Status post CABG. Again seen are advanced aortic atherosclerotic calcifications in the coronary arteries. There are mild aortic atherosclerotic calcifications. PLEURA: No pleural fluid. No pneumothorax. BONES: There is an age indeterminate inferior endplate compression deformity in T8 vertebral body, new since the prior examination. No destructive lesion. Severe degenerative osteoarthrosis of the 1st costochondral junction. UPPER ABDOMEN: Grossly unremarkable. OTHER FINDINGS: None. IMPRESSION: 1. Severe centrilobular emphysema in the lungs. No evidence for mass, consolidation or suspicious nodule. 2. Age indeterminate inferior endplate compression fracture deformity in T8 vertebral body, new since the prior examination. A preliminary report was provided by [facility].
--- NOTE | 2018-10-28 10:39 | CARD ---
APPROVED REPORT Date of service: 10/28/2018 EKG Measurement Heart [id number] <Conclusion> Atrial flutter with 2:1 conduction Nonspecific intraventricular block Nonspecific T wave abnormality Abnormal ECG
--- NOTE | 2018-10-28 10:41 | CARD ---
APPROVED REPORT Date of service: 10/27/2018 EKG Measurement Heart [id number] <Conclusion> Atrial flutter with variable AV block ST & T wave abnormality, consider inferior ischemia Abnormal ECG
--- NOTE | 2018-10-28 18:45 | RAD ---
Date of service: 10/28/2018 HISTORY: fever, ?PNA COMPARISON: October 27, 2018. CT thorax October 27, 2018. Portable chest x-ray FINDINGS: LUNGS: No active pulmonary disease. PLEURA: No significant pleural effusion identified, no pneumothorax apparent. CARDIOVASCULAR: No atherosclerotic calcification present No radiographic findings to suggest acute or significant cardiovascular disease. Stable sternotomy changes. OSSEOUS STRUCTURES: No significant abnormalities. VISUALIZED UPPER ABDOMEN: Normal. OTHER FINDINGS: None. IMPRESSION: No active disease. No significant interval change compared to the prior examination(s).
--- NOTE | 2018-10-28 22:23 | CON ---
DATE OF CONSULTATION: 10/28/2018 REASON FOR CONSULTATION: Atrial flutter, chest pain. HISTORY: This is a 63-year-old man with a history of coronary artery disease, status post prior bypass surgery as well as prior stenting with a long history of substance abuse and belligerent behavior, who presents to the emergency room complaining of left-sided chest discomfort. He was reportedly intoxicated at that time. He was abusive and combative with the staff, and he was treated with Geodon. He was seen lying in bed on telemetry at the present time. He is extremely somnolent with stable vital signs. Rest of the history is obtained via the chart. He is currently in atrial flutter with a controlled rate. PAST MEDICAL HISTORY: His past history is notable for prior TIA, history of COPD, hypertension, alcohol, tobacco abuse, prior cholecystectomy, and a carotid endarterectomy. MEDICATIONS: His current medications include Ativan, carvedilol, Ecotrin, subcutaneous heparin, Librium, Lipitor 20 mg daily, Plavix 75 mg daily, Protonix and Xopenex. He was also treated with IV digoxin and IV Cardizem in the emergency room. ALLERGIES: HE HAD A REACTION TO SULFAS AND EVE INHIBITORS IN THE PAST. SOCIAL HISTORY: As mentioned above. FAMILY HISTORY: Unobtainable. REVIEW OF SYSTEMS: Also unobtainable at the present time. PHYSICAL EXAMINATION: GENERAL: He is a middle-aged man, who appears extremely somnolent. VITAL SIGNS: His blood pressure is 92/60 with a pulse of 62, respirations of 14. He is afebrile. HEENT: Normocephalic, atraumatic. NECK: No JVD. CHEST: Bilateral scattered rhonchi. HEART: PMI in normal position with a systolic murmur at the left sternal border. ABDOMEN: Soft and nontender with normoactive bowel sounds. EXTREMITIES: No edema. SKIN: Warm and dry. PSYCHIATRIC: Somnolent, unable to assess. NEUROLOGIC: Moves all extremities to stimulation. DIAGNOSTIC DATA: Three sets of cardiac enzymes are negative. White count 5.3, hemoglobin and hematocrit are 9.7 and 29 with a platelet count of 79,000. Potassium 3.8. BUN and creatinine are 18 and 0.9. BMP is 1840. Initial electrocardiogram revealed atrial flutter with 2:1 conduction. A followup cardiogram reveals atrial flutter with variable conduction and nonspecific ST-T abnormalities. Chest x-ray reveals post sternotomy changes with normal cardiac silhouette and clear lung dong. IMPRESSION: 1. Atrial flutter with rapid conduction upon admission, currently controlled. 2. Coronary artery disease, status post prior PCI and bypass surgery with recent chest pain; however, no evidence of acute ST-T changes on electrocardiogram and cardiac enzymes were all negative. 3. Substance abuse. 4. Rest of the problems as noted. RECOMMENDATIONS: 1. Beta josh therapy should continue at the present time. 2. Counseling for his substance abuse issues should be planned. The old records will be reviewed as well. Further recommendations will be made based upon his clinical course and review of the above. Milton Disla MD
[2018-10-29 08:40] LABS: BASO # 0.03 K/mm3 (0.0-2.0); BASO % 0.3 % (0.0-3.0); EOS # 0.2 (0.0-0.7); EOS % 1.9 % (1.5-5.0); HEMOGLOBIN 11.7 g/dL (14.0-18.0); LYMPH # 1.2 (1.2-3.4); LYMPH % 11.9 % (22.0-35.0); MEAN CELL VOLUME 93.2 fl (80.0-105.0); MEAN CORPUSCULAR HEMOGLOBIN 30.6 pg (25.0-35.0); MEAN CORPUSCULAR HGB CONC 32.9 g/dl (31.0-37.0); MEAN PLATELET VOLUME 9.1 fl (7.0-11.0); MONO # 0.7 (0.1-0.6); RBC 3.82 10^6/uL (3.5-6.1); RED CELL DISTRIBUTION WIDTH 15.6 % (11.5-14.5); WHITE BLOOD COUNT 10.1 10^3/uL (4.5-11.0)
[2018-10-29 08:53] LABS: ALB/GLOB RATIO 1.5 (1.1-1.8); ALBUMIN 3.8 g/dL (3.0-4.8); ALT/SGPT 15 U/L (7-56); AST/SGOT 44 U/L (17-59); BLOOD UREA NITROGEN 8 mg/dL (7-21); CALCIUM 8.6 mg/dL (8.4-10.5); GFR NON-AFRICAN AMERICAN > 60
[2018-10-29] MEDS ORDERED: Folic Acid 1 MG, Thiamine 100 MG, Multivitamin (MVI) 10 ML in Dextrose 5% In Water 1,00... IV SCH (08:59)
[2018-10-29] MEDS ORDERED: Sodium Chloride 0.9% 1,000 ML IV SCH (09:00)
[2018-10-29] MEDS ORDERED: cefTRIAXone 1 gm 1 GM/100 ML BAG IVPB SCH (10:00)
[2018-10-29] MEDS: Pantoprazole 40 mg EC Tab PO SCH (10:05)
[2018-10-29] MEDS: Azithromycin 250 MG in Sodium Chloride 0.9% 250 ML IVPB SCH (10:05)
[2018-10-29] MEDS: Multivitamin Therapeutic Tab PO SCH (10:16)
--- NOTE | 2018-10-29 13:25 | PN ---
DATE: 10/29/2018 SUBJECTIVE: The patient is seen lying in bed on telemetry. He is more awake and belligerent and abusive to the staff this morning. He denies any chest pain. He states he is getting out of the hospital. MEDICATIONS: His current medications include Ativan, azithromycin, carvedilol 3.125 mg b.i.d., Ecotrin once daily, folic acid, subcutaneous heparin, Lipitor 20 mg daily, Plavix 75 mg daily, Protonix, Rocephin and Xopenex. OBJECTIVE GENERAL: He is a middle-aged man, who appears hostile and belligerent. VITAL SIGNS: His blood pressure is 148/80 with a pulse of 100 in atrial flutter with variable induction, respirations are 16, he is afebrile. He did have a temperature of 101.5 yesterday. HEENT: No JVD. CHEST: Bilateral rhonchi. HEART: PMI displaced laterally with systolic murmur at the left sternal border. ABDOMEN: Soft, nontender, normoactive bowel sounds. EXTREMITIES: No edema. DIAGNOSTIC DATA: Sodium 129, potassium 3.8, BUN and creatinine are 8 and 0.6. White count 10.1, hemoglobin and hematocrit 11.7 and 35.6 with a platelet count of 218,000. Cardiac enzymes are negative. IMPRESSION 1. Atrial flutter with controlled rate at the present time. 2. Coronary artery disease, status post prior bypass surgery and percutaneous coronary intervention with no evidence of acute cardiac ischemia. 3. Polysubstance abuse. RECOMMENDATIONS: Carvedilol dose will be increased to 12.5 mg b.i.d. for blood pressure and anginal control as well as heart rate control. Alcohol and tobacco abstinence were strongly encouraged. No further cardiac workup is planned at the present time. The patient can be discontinued from telemetry monitoring. We will be happy to see in the future if needed. Milton Disla MD
[2018-10-29] MEDS: Levalbuterol 0.63 MG/3 ML Inhal Soln UD IH PRN (13:54)
--- NOTE | 2018-10-29 15:02 | CP.PCM.PN ---
<Robert Brower - Last Filed: 10/29/18 16:12> Subjective - Date & Time of Evaluation Date of Evaluation: 10/29/18 Time of Evaluation: 11:00 - Subjective Subjective: INTERNAL MEDICINE PROGRESS NOTE FOR DR. JING Brower PGY1 Pt seen and examined bedside this am. Pt had a fever yesterday evening. Pt was evaluated, somnolent. CXR, u/a, cultures were obtained and patient started on empiric abx for PNA. This am, pt was more awak, responding to commands, mumbling and eating his diet. He was denying complaints Objective - Vital Signs/Intake and Output Vital Signs (last 24 hours): Temp Pulse Resp BP Pulse Ox 97.9 F 97 H 18 118/73 93 L 10/29/18 12:00 10/29/18 12:00 10/29/18 12:00 10/29/18 12:00 10/29/18 06:00 Intake and Output: 10/29/18 10/29/18 06:59 18:59 Intake Total 120 Output Total 250 Balance -130 - Medications Medications: Current Medications Aspirin (Ecotrin) 81 mg PO DAILY [facility] Last Admin: 10/29/18 10:05 Dose: 81 mg Atorvastatin Calcium (Lipitor) 20 mg PO DIN [facility] Last Admin: 10/28/18 17:33 Dose: Not Given Carvedilol (Coreg) 12.5 mg PO BID [facility] Clopidogrel Bisulfate (Plavix) 75 mg PO DAILY [facility] Last Admin: 10/29/18 10:04 Dose: 75 mg Folic Acid (Folic Acid) 1 mg PO DAILY [facility] Last Admin: 10/29/18 10:16 Dose: 1 mg Heparin Sodium (Porcine) (Heparin) 5,000 units SC Q8 [facility]; Protocol Last Admin: 10/29/18 13:21 Dose: 5,000 units Ceftriaxone Sodium (Rocephin 1 Gram Ivpb) 1 gm in 100 mls @ 100 mls/hr IVPB DAILY [facility]; Protocol Last Admin: 10/29/18 13:22 Dose: 100 mls/hr Azithromycin 250 mg/ Sodium (Chloride) 250 mls @ 167 mls/hr IVPB DAILY [facility]; Protocol Last Admin: 10/29/18 10:05 Dose: 167 mls/hr Levalbuterol HCl (Xopenex) 0.63 mg IH TIDRESP PRN PRN Reason: Shortness of Breath Last Admin: 10/29/18 13:54 Dose: 0.63 mg Lorazepam (Ativan) 2 mg IVP Q6 [facility]; Protocol Lorazepam (Ativan) 1 mg IV Q4H PRN; Protocol PRN Reason: Anxiety Multivitamins (Thera Tab) 1 tab PO 0800 [facility] Last Admin: 10/29/18 10:16 Dose: 1 tab Pantoprazole Sodium (Protonix Ec Tab) 40 mg PO ACB [facility] Last Admin: 10/29/18 10:05 Dose: 40 mg Thiamine HCl (Vitamin B1 Tab) 100 mg PO DAILY [facility] Last Admin: 10/29/18 10:16 Dose: 100 mg - Labs Labs: 10/29/18 08:25 10/29/18 08:25 PT 12.6 SECONDS (9.4-12.5) H 10/27/18 20:34 INR 1.14 10/27/18 20:34 APTT 31.2 Seconds (26.9-38.3) 10/27/18 20:34 - Constitutional Appears: No Acute Distress, Agitated, Cachectic - Eye Exam Eye Exam: EOMI, Normal appearance - ENT Exam ENT Exam: Mucous Membranes Moist, Normal Exam - Neck Exam Neck Exam: Normal Inspection - Respiratory Exam Respiratory Exam: Rales, NORMAL BREATHING PATTERN - Cardiovascular Exam Cardiovascular Exam: Tachycardia - GI/Abdominal Exam GI & Abdominal Exam: Soft, Normal Bowel Sounds - Back Exam Back Exam: NORMAL INSPECTION - Neurological Exam Neurological Exam: Alert, Awake, Oriented x3 - Psychiatric Exam Psychiatric exam: Normal Mood - Skin Skin Exam: Dry, Intact, Warm Assessment and Plan - Assessment and Plan (Free Text) Assessment: 63 year old male with past medical history of noncompliance with multiple past ED visits, HTN, COPD, TIA, CAD with stents, CABG, EtOH abuse, and active tobacco abuse admitted for non-specific chest pain with ACS rules out. Being treated for ETOH w/d, tachycardia, pneumonia Plan: Tachycardia 2/2 atrial fib/atrial flutter/sinus tach - pulse in 90-100s - increased dose of coreg to 12.5mg - cardiology following Pneumonia -afebrile overnight -cultures pending -treating with empiric azithromycin/rocephin Alcohol withdrawal -CIWA protocol, aspiration precautions, neuro checks -discontinue fluids, pt tolerating diet -continue ativan 1mg q4 prn. Holding ninfa d/t increased somnolence -continue multivitamin, thiamine, folic acid to prevent wernicke/korsakoff Acute on chronic T8 fracture -CT chest: acute on chronic wedge compression fracture injury of T8 -IR consult for kyphoplasty CAD with stents -ACS ruled out, troponins -continue home ASA, plavix, coreg, statin Hx of COPD -No acute exacerbation currently -held home meds -xopenex q3 prn Hx of HTN -currently normotensive, continue to monitor -home lisinopril held (allergy to ACEi in past), continue increased dose of coreg DVT/GI PPX: Hep/protonix Case reviewed with Dr. Jing Brower PGY1 <Eric Sandoval - Last Filed: 10/29/18 18:48> Objective - Vital Signs/Intake and Output Vital Signs (last 24 hours): Temp Pulse Resp BP Pulse Ox 98.2 F 83 18 135/68 93 L 10/29/18 17:15 10/29/18 17:49 10/29/18 17:15 10/29/18 17:49 10/29/18 06:00 Intake and Output: 10/29/18 10/29/18 06:59 18:59 Intake Total 120 350 Output Total 250 Balance -130 350 - Medications Medications: Current Medications Aspirin (Ecotrin) 81 mg PO DAILY [facility] Last Admin: 10/29/18 10:05 Dose: 81 mg Atorvastatin Calcium (Lipitor) 20 mg PO DIN [facility] Last Admin: 10/29/18 17:49 Dose: 20 mg Carvedilol (Coreg) 12.5 mg PO BID [facility] Last Admin: 10/29/18 17:49 Dose: 12.5 mg Clopidogrel Bisulfate (Plavix) 75 mg PO DAILY [facility] Last Admin: 10/29/18 10:04 Dose: 75 mg Folic Acid (Folic Acid) 1 mg PO DAILY [facility] Last Admin: 10/29/18 10:16 Dose: 1 mg Heparin Sodium (Porcine) (Heparin) 5,000 units SC Q8 [facility]; Protocol Last Admin: 10/29/18 13:21 Dose: 5,000 units Ceftriaxone Sodium (Rocephin 1 Gram Ivpb) 1 gm in 100 mls @ 100 mls/hr IVPB DAILY [facility]; Protocol Last Admin: 10/29/18 13:22 Dose: 100 mls/hr Azithromycin 250 mg/ Sodium (Chloride) 250 mls @ 167 mls/hr IVPB DAILY [facility]; Protocol Last Admin: 10/29/18 10:05 Dose: 167 mls/hr Levalbuterol HCl (Xopenex) 0.63 mg IH TIDRESP PRN PRN Reason: Shortness of Breath Last Admin: 10/29/18 13:54 Dose: 0.63 mg Lorazepam (Ativan) 2 mg IVP Q6 [facility]; Protocol Lorazepam (Ativan) 1 mg IV Q4H PRN; Protocol PRN Reason: Anxiety Multivitamins (Thera Tab) 1 tab PO 0800 [facility] Last Admin: 10/29/18 10:16 Dose: 1 tab Pantoprazole Sodium (Protonix Ec Tab) 40 mg PO ACB [facility] Last Admin: 10/29/18 10:05 Dose: 40 mg Thiamine HCl (Vitamin B1 Tab) 100 mg PO DAILY [facility] Last Admin: 10/29/18 10:16 Dose: 100 mg - Labs Labs: 10/29/18 08:25 10/29/18 08:25 PT 12.6 SECONDS (9.4-12.5) H 10/27/18 20:34 INR 1.14 10/27/18 20:34 APTT 31.2 Seconds (26.9-38.3) 10/27/18 20:34 Attending/Attestation - Attestation I have personally seen and examined this patient.: Yes I have fully participated in the care of the patient.: Yes I have reviewed all pertinent clinical information, including history, physical exam and plan: Yes
[2018-10-29 17:13] VITALS: BMI 20.5
[2018-10-29] MEDS ORDERED: Pneumococcal 23-Valent Vaccine IM ONE (17:13)
[2018-10-29] MEDS ORDERED: Influenza Vaccine 60 mcg/0.5 mL SYR (4YR UP) IM ONE (17:13)
[2018-10-30] MEDS: Levalbuterol 0.63 MG/3 ML Inhal Soln UD IH PRN (01:25)
[2018-10-30] MEDS: Azithromycin 250 MG in Sodium Chloride 0.9% 250 ML IVPB SCH (09:37)
[2018-10-30] MEDS ORDERED: Albuterol-Ipratrop 3 mg / 0.5 (3 ml) UD IH STA (09:44)
[2018-10-30] MEDS ORDERED: MethylPREDNISolone 40 mg Vial IVP STA (09:57)
[2018-10-30] MEDS: Multivitamin Therapeutic Tab PO SCH (10:00)
[2018-10-30] MEDS: Pantoprazole 40 mg EC Tab PO SCH (10:01)
[2018-10-30] MEDS ORDERED: Albuterol-Ipratrop 3 mg / 0.5 (3 ml) UD IH PRN (10:02)
--- NOTE | 2018-10-30 10:39 | CARD ---
APPROVED REPORT Date of service: 10/30/2018 EKG Measurement Heart [id number] <Conclusion> Atrial flutter with variable AV block Abnormal ECG
[2018-10-30] MEDS: MethylPREDNISolone 40 mg Vial IVP SCH ×2 (10:41→21:33)
[2018-10-30] MEDS: Albuterol-Ipratrop 3 mg / 0.5 (3 ml) UD IH SCH ×4 (13:41→23:57)
[2018-10-30] MEDS ORDERED: Albuterol-Ipratrop 3 mg / 0.5 (3 ml) UD IH SCH (14:00)
--- NOTE | 2018-10-30 16:29 | CP.PCM.PN ---
<Robert Brower - Last Filed: 10/30/18 16:21> Subjective - Date & Time of Evaluation Date of Evaluation: 10/30/18 Time of Evaluation: 11:00 - Subjective Subjective: INTERNAL MEDICINE PROGRESS NOTE FOR DR. JING Brower PGY2 Pt seen and examined at bedside this am. No acute events overnight. Pt had unsteady ambulation today. He was agitated, however verbal and following commands. He denies 12 point ROS and demanding to go home. Objective - Vital Signs/Intake and Output Vital Signs (last 24 hours): Temp Pulse Resp BP Pulse Ox 97 F L 67 19 132/75 97 10/30/18 06:00 10/30/18 10:01 10/30/18 06:00 10/30/18 10:01 10/30/18 06:00 Intake and Output: 10/30/18 10/30/18 06:59 18:59 Intake Total 840 Output Total 1200 Balance -360 - Medications Medications: Current Medications Albuterol/Ipratropium (Duoneb 3 Mg/0.5 Mg (3 Ml) Ud) 3 ml IH [id number] [facility] Last Admin: 10/30/18 15:13 Dose: 3 ml Albuterol/Ipratropium (Duoneb 3 Mg/0.5 Mg (3 Ml) Ud) 3 ml IH [id number] PRN PRN Reason: Shortness of Breath Last Admin: 10/30/18 13:41 Dose: 3 ml Aspirin (Ecotrin) 81 mg PO DAILY [facility] Last Admin: 10/30/18 10:01 Dose: 81 mg Atorvastatin Calcium (Lipitor) 20 mg PO DIN [facility] Last Admin: 10/29/18 17:49 Dose: 20 mg Azithromycin (Zithromax) 250 mg PO DAILY [facility] Carvedilol (Coreg) 12.5 mg PO BID [facility] Last Admin: 10/30/18 10:01 Dose: 12.5 mg Clopidogrel Bisulfate (Plavix) 75 mg PO DAILY [facility] Last Admin: 10/30/18 10:00 Dose: 75 mg Folic Acid (Folic Acid) 1 mg PO DAILY [facility] Last Admin: 10/30/18 10:01 Dose: 1 mg Heparin Sodium (Porcine) (Heparin) 5,000 units SC Q8 [facility]; Protocol Last Admin: 10/30/18 15:04 Dose: 5,000 units Levalbuterol HCl (Xopenex) 0.63 mg IH TIDRESP PRN PRN Reason: Shortness of Breath Last Admin: 10/30/18 01:25 Dose: 0.63 mg Lorazepam (Ativan) 1 mg IV Q4H PRN; Protocol PRN Reason: Anxiety Last Admin: 10/30/18 12:35 Dose: 1 mg Lorazepam (Ativan) 2 mg IVP Q8 [facility]; Protocol Methylprednisolone (Solu-Medrol) 40 mg IVP Q12 [facility] Last Admin: 10/30/18 10:41 Dose: 40 mg Multivitamins (Thera Tab) 1 tab PO 0800 [facility] Last Admin: 10/30/18 10:00 Dose: 1 tab Nicotine (Nicoderm Cq) 1 patch TD DAILY [facility] Pantoprazole Sodium (Protonix Ec Tab) 40 mg PO ACB [facility] Last Admin: 10/30/18 10:01 Dose: 40 mg Thiamine HCl (Vitamin B1 Tab) 100 mg PO DAILY [facility] Last Admin: 10/30/18 10:00 Dose: 100 mg - Labs Labs: 10/29/18 08:25 10/29/18 08:25 PT 12.6 SECONDS (9.4-12.5) H 10/27/18 20:34 INR 1.14 10/27/18 20:34 APTT 31.2 Seconds (26.9-38.3) 10/27/18 20:34 - Constitutional Appears: Well, Non-toxic - Head Exam Head Exam: NORMAL INSPECTION, NORMOCEPHALIC - Eye Exam Eye Exam: EOMI, Normal appearance - ENT Exam ENT Exam: Mucous Membranes Moist - Neck Exam Neck Exam: Normal Inspection - Respiratory Exam Respiratory Exam: Wheezes, NORMAL BREATHING PATTERN - Cardiovascular Exam Cardiovascular Exam: REGULAR RHYTHM, +S1, +S2 - GI/Abdominal Exam GI & Abdominal Exam: Soft, Normal Bowel Sounds - Extremities Exam Extremities Exam: Normal Inspection. absent: Calf Tenderness - Back Exam Back Exam: NORMAL INSPECTION - Neurological Exam Neurological Exam: Abnormal Gait, Alert, Awake - Psychiatric Exam Psychiatric exam: Agitated, Normal Affect, Normal Mood - Skin Skin Exam: Dry, Intact, Warm Assessment and Plan - Assessment and Plan (Free Text) Assessment: 63 year old male with past medical history of noncompliance with multiple past ED visits, HTN, COPD, TIA, CAD with stents, CABG, EtOH abuse, and active tobacco abuse admitted for non-specific chest pain with ACS rules out. Being treated for ETOH w/d, tachycardia, pneumonia Plan: Tachycardia 2/2 atrial fib/atrial flutter/sinus tach - pulse controlled in 60-70s - increased dose of coreg to 12.5mg - cardiology following Alcohol withdrawal - CIWA protocol, aspiration precautions, neuro checks - discontinue fluids, pt tolerating diet - continue ativan 1mg q4 prn. Will resume ninfa ativan as pt increasingly agitated - continue multivitamin, thiamine, folic acid to prevent wernicke/korsakoff CAD with stents -ACS ruled out, troponins (-)x3 -continue home ASA, plavix, coreg, statin Pneumonia -afebrile x 2d-cultures negative -Will discontinue antibiotics Acute on chronic T8 fracture -CT chest: acute on chronic wedge compression fracture injury of T8 -IR consult for kyphoplasty Acute on Chronic COPD exacerbation - Solumedrol 40Q12 - Duoneb ninfa & prn - xopenox - received rocephin/azithromycin treatment Hx of HTN - currently normotensive, continue to monitor - home lisinopril held (allergy to ACEi in past), continue increased dose of coreg Tobacco use disorder - nicotine patch ordered - advised on cessation DVT/GI PPX: Hep/protonix Case reviewed with Dr. Jing Brower PGY1 <Eric Sandoval - Last Filed: 10/30/18 17:26> Objective - Vital Signs/Intake and Output Vital Signs (last 24 hours): Temp Pulse Resp BP Pulse Ox 97 F L 67 19 132/75 97 10/30/18 06:00 10/30/18 10:01 10/30/18 06:00 10/30/18 10:01 10/30/18 06:00 Intake and Output: 10/30/18 10/30/18 06:59 18:59 Intake Total 840 Output Total 1200 Balance -360 - Medications Medications: Current Medications Albuterol/Ipratropium (Duoneb 3 Mg/0.5 Mg (3 Ml) Ud) 3 ml IH [id number] [facility] Last Admin: 10/30/18 15:13 Dose: 3 ml Albuterol/Ipratropium (Duoneb 3 Mg/0.5 Mg (3 Ml) Ud) 3 ml IH [id number] PRN PRN Reason: Shortness of Breath Last Admin: 10/30/18 13:41 Dose: 3 ml Aspirin (Ecotrin) 81 mg PO DAILY [facility] Last Admin: 10/30/18 10:01 Dose: 81 mg Atorvastatin Calcium (Lipitor) 20 mg PO DIN [facility] Last Admin: 10/30/18 16:45 Dose: 20 mg Azithromycin (Zithromax) 250 mg PO DAILY [facility] Carvedilol (Coreg) 12.5 mg PO BID [facility] Last Admin: 10/30/18 10:01 Dose: 12.5 mg Clopidogrel Bisulfate (Plavix) 75 mg PO DAILY [facility] Last Admin: 10/30/18 10:00 Dose: 75 mg Folic Acid (Folic Acid) 1 mg PO DAILY [facility] Last Admin: 10/30/18 10:01 Dose: 1 mg Heparin Sodium (Porcine) (Heparin) 5,000 units SC Q8 [facility]; Protocol Last Admin: 10/30/18 15:04 Dose: 5,000 units Levalbuterol HCl (Xopenex) 0.63 mg IH TIDRESP PRN PRN Reason: Shortness of Breath Last Admin: 10/30/18 01:25 Dose: 0.63 mg Lorazepam (Ativan) 1 mg IV Q4H PRN; Protocol PRN Reason: Anxiety Last Admin: 10/30/18 16:46 Dose: 1 mg Lorazepam (Ativan) 2 mg IVP Q8 [facility]; Protocol Methylprednisolone (Solu-Medrol) 40 mg IVP Q12 [facility] Last Admin: 10/30/18 10:41 Dose: 40 mg Multivitamins (Thera Tab) 1 tab PO 0800 [facility] Last Admin: 10/30/18 10:00 Dose: 1 tab Nicotine (Nicoderm Cq) 1 patch TD DAILY [facility] Last Admin: 10/30/18 16:44 Dose: 1 patch Pantoprazole Sodium (Protonix Ec Tab) 40 mg PO ACB [facility] Last Admin: 10/30/18 10:01 Dose: 40 mg Thiamine HCl (Vitamin B1 Tab) 100 mg PO DAILY [facility] Last Admin: 10/30/18 10:00 Dose: 100 mg - Labs Labs: 10/29/18 08:25 10/29/18 08:25 PT 12.6 SECONDS (9.4-12.5) H 10/27/18 20:34 INR 1.14 10/27/18 20:34 APTT 31.2 Seconds (26.9-38.3) 10/27/18 20:34 Attending/Attestation - Attestation I have personally seen and examined this patient.: Yes I have fully participated in the care of the patient.: Yes I have reviewed all pertinent clinical information, including history, physical exam and plan: Yes Notes (Text): Patient seen and examined with the residents, agree with above. Noted to have mild unsteadiness with gait, will benefit from PT evaluation. Diffuse expiratory wheezing noted on pulmonary exam although not in respiratory distress Agree with iv steroids with taper.
[2018-10-31] MEDS: Albuterol-Ipratrop 3 mg / 0.5 (3 ml) UD IH SCH ×5 (03:59→19:36)
[2018-10-31 05:43] LABS: URINE BILIRUBIN NEGATIVE (NEGATIVE); URINE BLOOD NEGATIVE (NEGATIVE); URINE GLUCOSE (UA) 100 mg/dL (NEGATIVE); URINE LEUKOCYTE ESTERASE NEGATIVE Leu/uL (NEGATIVE); URINE PROTEIN NEGATIVE mg/dL (<30 mg/dL); URINE UROBILINOGEN 0.2 E.U./dL (<1 E.U./dL)
[2018-10-31 05:47] LABS: URINE APPEARANCE CLEAR (CLEAR); URINE COLOR YELLOW (YELLOW)
[2018-10-31 07:51] LABS: HEMOGLOBIN 11.2 g/dL (14.0-18.0); LYMPH # 0.4 (1.2-3.4); LYMPH % 10.8 % (22.0-35.0); MEAN CELL VOLUME 91.6 fl (80.0-105.0); MEAN CORPUSCULAR HEMOGLOBIN 30.5 pg (25.0-35.0); MEAN CORPUSCULAR HGB CONC 33.3 g/dl (31.0-37.0); MEAN PLATELET VOLUME 9.7 fl (7.0-11.0); MONO # 0.1 (0.1-0.6); MONO % 3.8 % (1.0-6.0); RBC 3.67 10^6/uL (3.5-6.1); RED CELL DISTRIBUTION WIDTH 15.2 % (11.5-14.5); WHITE BLOOD COUNT 3.4 10^3/uL (4.5-11.0)
[2018-10-31 08:02] LABS: ALB/GLOB RATIO 1.2 (1.1-1.8); ALBUMIN 3.3 g/dL (3.0-4.8); ALT/SGPT 17 U/L (7-56); AST/SGOT 32 U/L (17-59); BLOOD UREA NITROGEN 15 mg/dL (7-21); CALCIUM 8.6 mg/dL (8.4-10.5); GFR NON-AFRICAN AMERICAN > 60
[2018-10-31] MEDS: Pantoprazole 40 mg EC Tab PO SCH (08:39)
[2018-10-31] MEDS: Multivitamin Therapeutic Tab PO SCH (08:39)
[2018-10-31] MEDS: MethylPREDNISolone 40 mg Vial IVP SCH (09:44)
--- NOTE | 2018-10-31 17:25 | CP.PCM.PN ---
<Robert Brower - Last Filed: 10/31/18 17:20> Subjective - Date & Time of Evaluation Date of Evaluation: 10/31/18 Time of Evaluation: 11:00 - Subjective Subjective: INTERNAL MEDICINE PROGRESS NOTE FOR DR. SHWETA Brower PGY1 Pt seen and examined at bedside this am. He is not withdrawal. He appears confused, AxOx2. He is denying complaints, however is generally agitated. He denies 12 point ROS Objective - Vital Signs/Intake and Output Vital Signs (last 24 hours): Temp Pulse Resp BP Pulse Ox 98 F 79 20 113/69 97 10/31/18 14:00 10/31/18 14:00 10/31/18 14:00 10/31/18 14:00 10/31/18 14:00 Intake and Output: 10/31/18 10/31/18 06:59 18:59 Intake Total 660 540 Output Total 300 Balance 360 540 - Medications Medications: Current Medications Albuterol/Ipratropium (Duoneb 3 Mg/0.5 Mg (3 Ml) Ud) 3 ml IH [id number] [facility] Last Admin: 10/31/18 16:28 Dose: Not Given Albuterol/Ipratropium (Duoneb 3 Mg/0.5 Mg (3 Ml) Ud) 3 ml IH [id number] PRN PRN Reason: Shortness of Breath Last Admin: 10/30/18 13:41 Dose: 3 ml Aspirin (Ecotrin) 81 mg PO DAILY [facility] Last Admin: 10/31/18 09:44 Dose: 81 mg Atorvastatin Calcium (Lipitor) 20 mg PO DIN [facility] Last Admin: 10/30/18 16:45 Dose: 20 mg Azithromycin (Zithromax) 250 mg PO DAILY [facility] Last Admin: 10/31/18 09:44 Dose: 250 mg Carvedilol (Coreg) 12.5 mg PO BID [facility] Last Admin: 10/31/18 09:48 Dose: Not Given Clopidogrel Bisulfate (Plavix) 75 mg PO DAILY [facility] Last Admin: 10/31/18 09:45 Dose: 75 mg Folic Acid (Folic Acid) 1 mg PO DAILY [facility] Last Admin: 10/31/18 09:45 Dose: 1 mg Heparin Sodium (Porcine) (Heparin) 5,000 units SC Q8 [facility]; Protocol Last Admin: 10/31/18 05:37 Dose: 5,000 units Levalbuterol HCl (Xopenex) 0.63 mg IH TIDRESP PRN PRN Reason: Shortness of Breath Last Admin: 10/30/18 01:25 Dose: 0.63 mg Lorazepam (Ativan) 1 mg IV Q4H PRN; Protocol PRN Reason: Anxiety Last Admin: 10/31/18 16:08 Dose: 1 mg Lorazepam (Ativan) 2 mg IVP Q8 [facility]; Protocol Last Admin: 10/31/18 15:13 Dose: 2 mg Multivitamins (Thera Tab) 1 tab PO 0800 [facility] Last Admin: 10/31/18 08:39 Dose: 1 tab Nicotine (Nicoderm Cq) 1 patch TD DAILY [facility] Last Admin: 10/31/18 09:45 Dose: 1 patch Pantoprazole Sodium (Protonix Ec Tab) 40 mg PO ACB [facility] Last Admin: 10/31/18 08:39 Dose: 40 mg Prednisone (Prednisone Tab) 40 mg PO DAILY [facility] Thiamine HCl (Vitamin B1 Tab) 100 mg PO DAILY [facility] Last Admin: 10/31/18 09:45 Dose: 100 mg - Labs Labs: 10/31/18 07:15 10/31/18 07:15 PT 12.6 SECONDS (9.4-12.5) H 10/27/18 20:34 INR 1.14 10/27/18 20:34 APTT 31.2 Seconds (26.9-38.3) 10/27/18 20:34 - Constitutional Appears: Well, Non-toxic - Head Exam Head Exam: NORMAL INSPECTION, NORMOCEPHALIC - Eye Exam Eye Exam: EOMI, Normal appearance - ENT Exam ENT Exam: Mucous Membranes Moist - Neck Exam Neck Exam: Normal Inspection - Respiratory Exam Respiratory Exam: Wheezes, NORMAL BREATHING PATTERN - Cardiovascular Exam Cardiovascular Exam: REGULAR RHYTHM, +S1, +S2 - GI/Abdominal Exam GI & Abdominal Exam: Soft, Normal Bowel Sounds - Extremities Exam Extremities Exam: Normal Inspection. absent: Calf Tenderness - Back Exam Back Exam: NORMAL INSPECTION - Neurological Exam Neurological Exam: Abnormal Gait, Alert, Awake - Psychiatric Exam Psychiatric exam: Agitated, Normal Affect, Normal Mood - Skin Skin Exam: Dry, Intact, Warm Assessment and Plan - Assessment and Plan (Free Text) Assessment: 63 year old male with past medical history of noncompliance with mu ltiple past ED visits, HTN, COPD, TIA, CAD with stents, CABG, EtOH abuse, and active tobacco abuse admitted for non-specific chest pain with ACS rules out. Being treated for ETOH w/d, tachycardia, pneumonia Plan: Acute on Chronic COPD exacerbation - wheezing significantly improved. Pt was able to perform 6-minute walk test saturating at 89-91%. 91% at rest. - will transition to oral prednisone - Duoneb ninfa & prn - xopenox Alcohol withdrawal - Pt confused today during 6-min walk test. Will monitor overnight and assess for worsening confusion. - CIWA protocol, aspiration precautions, neuro checks - continue ativan 1mg q4 prn, 2Q8sch - continue multivitamin, thiamine, folic acid to prevent wernicke/korsakoff CAD with stents -ACS ruled out, troponins (-)x3 -continue home ASA, plavix, coreg, statin HTN - currently normotensive, continue to monitor - home lisinopril held (allergy to ACEi in past), continue increased dose of coreg Acute on chronic T8 fracture -CT chest: acute on chronic wedge compression fracture injury of T8 -IR consulted for kyphoplasty Tachycardia 2/2 atrial fib/atrial flutter/sinus tach - resolved with carvedilol 12.5 bid Tobacco use disorder - nicotine patch ordered - advised on cessation DVT/GI PPX: Hep/protonix Case reviewed with Dr. Shweta Brower PGY1 <Flor Bowen - Last Filed: 11/03/18 14:04> Objective - Vital Signs/Intake and Output Vital Signs (last 24 hours): Temp Pulse Resp BP Pulse Ox 97.4 F L 68 17 143/72 96 11/02/18 06:00 11/02/18 09:18 11/02/18 06:00 11/02/18 09:18 11/02/18 06:00 - Labs Labs: 10/31/18 07:15 10/31/18 07:15 PT 12.6 SECONDS (9.4-12.5) H 10/27/18 20:34 INR 1.14 10/27/18 20:34 APTT 31.2 Seconds (26.9-38.3) 10/27/18 20:34 Attending/Attestation - Attestation I have personally seen and examined this patient.: Yes I have fully participated in the care of the patient.: Yes I have reviewed all pertinent clinical information, including history, physical exam and plan: Yes Notes (Text): 11/03/18 14:03 Medical record note made by the resident after discussion with my direction and input after the patient was personally seen and examined by me. I have reviewed the chart and agree that the record accurately reflects by personal performance of the history, physical exam, data review, and medical decision-making, in the course for the patient. I have also personally directed the plan of care.
[2018-11-01] MEDS: Albuterol-Ipratrop 3 mg / 0.5 (3 ml) UD IH SCH ×6 (01:13→21:05)
[2018-11-01] MEDS: Multivitamin Therapeutic Tab PO SCH (10:25)
[2018-11-01] MEDS: Pantoprazole 40 mg EC Tab PO SCH (10:26)
--- NOTE | 2018-11-01 14:51 | CP.PCM.PN ---
<Alisson Butcher - Last Filed: 11/01/18 20:55> Subjective - Date & Time of Evaluation Date of Evaluation: 11/01/18 Time of Evaluation: 11:30 - Subjective Subjective: Alisson Butcher, PGY1 Medicine Progress Note: Pt seen and examined at bedside this AM. Pt appears confused, AOx2. Pt is somnolent but arousable. He is denying complaints at this time. Objective - Vital Signs/Intake and Output Vital Signs (last 24 hours): Temp Pulse Resp BP Pulse Ox 97.9 F 70 17 132/69 95 11/01/18 06:00 11/01/18 06:00 11/01/18 06:00 11/01/18 06:00 11/01/18 06:00 Intake and Output: 11/01/18 11/01/18 06:59 18:59 Intake Total 660 Output Total 400 Balance 260 - Medications Medications: Current Medications Albuterol/Ipratropium (Duoneb 3 Mg/0.5 Mg (3 Ml) Ud) 3 ml IH [id number] [facility] Last Admin: 11/01/18 11:15 Dose: Not Given Albuterol/Ipratropium (Duoneb 3 Mg/0.5 Mg (3 Ml) Ud) 3 ml IH [id number] PRN PRN Reason: Shortness of Breath Last Admin: 10/30/18 13:41 Dose: 3 ml Aspirin (Ecotrin) 81 mg PO DAILY [facility] Last Admin: 11/01/18 10:26 Dose: 81 mg Atorvastatin Calcium (Lipitor) 20 mg PO DIN [facility] Last Admin: 10/31/18 17:37 Dose: 20 mg Azithromycin (Zithromax) 250 mg PO DAILY [facility] Last Admin: 11/01/18 10:25 Dose: 250 mg Carvedilol (Coreg) 12.5 mg PO BID [facility] Last Admin: 11/01/18 10:26 Dose: 12.5 mg Clopidogrel Bisulfate (Plavix) 75 mg PO DAILY [facility] Last Admin: 11/01/18 10:25 Dose: 75 mg Folic Acid (Folic Acid) 1 mg PO DAILY [facility] Last Admin: 11/01/18 10:26 Dose: 1 mg Heparin Sodium (Porcine) (Heparin) 5,000 units SC Q8 [facility]; Protocol Last Admin: 11/01/18 05:43 Dose: 5,000 units Levalbuterol HCl (Xopenex) 0.63 mg IH TIDRESP PRN PRN Reason: Shortness of Breath Last Admin: 10/30/18 01:25 Dose: 0.63 mg Lorazepam (Ativan) 1 mg IV Q4H PRN; Protocol PRN Reason: Anxiety Last Admin: 10/31/18 20:09 Dose: 1 mg Multivitamins (Thera Tab) 1 tab PO 0800 [facility] Last Admin: 11/01/18 10:25 Dose: 1 tab Nicotine (Nicoderm Cq) 1 patch TD DAILY [facility] Last Admin: 11/01/18 10:22 Dose: 1 patch Pantoprazole Sodium (Protonix Ec Tab) 40 mg PO ACB [facility] Last Admin: 11/01/18 10:26 Dose: 40 mg Prednisone (Prednisone Tab) 40 mg PO DAILY [facility] Last Admin: 11/01/18 10:26 Dose: 40 mg Thiamine HCl (Vitamin B1 Tab) 100 mg PO DAILY [facility] Last Admin: 11/01/18 10:26 Dose: 100 mg - Labs Labs: 10/31/18 07:15 10/31/18 07:15 PT 12.6 SECONDS (9.4-12.5) H 10/27/18 20:34 INR 1.14 10/27/18 20:34 APTT 31.2 Seconds (26.9-38.3) 10/27/18 20:34 - Constitutional Appears: Well, Non-toxic - Head Exam Head Exam: NORMAL INSPECTION, NORMOCEPHALIC - Eye Exam Eye Exam: EOMI, Normal appearance - ENT Exam ENT Exam: Mucous Membranes Moist - Neck Exam Neck Exam: Normal Inspection - Respiratory Exam Respiratory Exam: Wheezes, NORMAL BREATHING PATTERN - Cardiovascular Exam Cardiovascular Exam: REGULAR RHYTHM, +S1, +S2 - GI/Abdominal Exam GI & Abdominal Exam: Soft, Normal Bowel Sounds - Extremities Exam Extremities Exam: Normal Inspection. absent: Calf Tenderness - Back Exam Back Exam: NORMAL INSPECTION - Neurological Exam Neurological Exam: Abnormal Gait, Alert, Awake - Psychiatric Exam Psychiatric exam: Agitated, Normal Affect, Normal Mood - Skin Skin Exam: Dry, Intact, Warm Assessment and Plan - Assessment and Plan (Free Text) Assessment: 63 year old male with past medical history of noncompliance with multiple past ED visits, HTN, COPD, TIA, CAD with stents, CABG, EtOH abuse, and active tobacco abuse admitted for non-specific chest pain with ACS rules out. Being treated for ETOH w/d, tachycardia, pneumonia Plan: Acute on Chronic COPD exacerbation - wheezing significantly improved. - Pt was able to perform 6-minute walk test saturating at 89-91%. 91% at rest. - PO prednisone - Duoneb ninfa & prn - Xopenex Alcohol withdrawal - CIWA protocol, aspiration precautions, neuro checks - continue ativan 1mg q4 prn, d/catie sched ativan, will cont to monitor - continue multivitamin, thiamine, folic acid to prevent wernicke/korsakoff CAD s/p stents - ACS ruled out, troponins (-)x3 - continue home ASA, plavix, coreg, statin HTN - currently normotensive, continue to monitor - home lisinopril held (allergy to ACEi in past), continue increased dose of coreg Acute on chronic T8 fracture - CT chest: acute on chronic wedge compression fracture injury of T8 - IR consulted for kyphoplasty Tachycardia 2/2 atrial fib/atrial flutter/sinus tach: Resolved - resolved with carvedilol 12.5 bid Tobacco use disorder - nicotine patch ordered - advised on cessation DVT/GI PPX: Hep/protonix Case reviewed with Dr. Elvia Butcher PGY1 <Belinda Heath - Last Filed: 11/02/18 10:05> Objective - Vital Signs/Intake and Output Vital Signs (last 24 hours): Temp Pulse Resp BP Pulse Ox 97.4 F L 68 17 143/72 96 11/02/18 06:00 11/02/18 09:18 11/02/18 06:00 11/02/18 09:18 11/02/18 06:00 - Medications Medications: Current Medications Albuterol/Ipratropium (Duoneb 3 Mg/0.5 Mg (3 Ml) Ud) 3 ml IH [id number] PRN PRN Reason: Shortness of Breath Last Admin: 10/30/18 13:41 Dose: 3 ml Aspirin (Ecotrin) 81 mg PO DAILY [facility] Last Admin: 11/02/18 09:19 Dose: 81 mg Atorvastatin Calcium (Lipitor) 20 mg PO DIN [facility] Last Admin: 11/01/18 17:51 Dose: Not Given Azithromycin (Zithromax) 250 mg PO DAILY [facility] Last Admin: 11/02/18 09:19 Dose: 250 mg Carvedilol (Coreg) 12.5 mg PO BID [facility] Last Admin: 11/02/18 09:18 Dose: 12.5 mg Clopidogrel Bisulfate (Plavix) 75 mg PO DAILY [facility] Last Admin: 11/02/18 09:18 Dose: 75 mg Folic Acid (Folic Acid) 1 mg PO DAILY [facility] Last Admin: 11/02/18 09:19 Dose: 1 mg Heparin Sodium (Porcine) (Heparin) 5,000 units SC Q8 [facility]; Protocol Last Admin: 11/02/18 05:50 Dose: Not Given Levalbuterol HCl (Xopenex) 0.63 mg IH TIDRESP PRN PRN Reason: Shortness of Breath Last Admin: 10/30/18 01:25 Dose: 0.63 mg Lorazepam (Ativan) 1 mg IV Q4H PRN; Protocol PRN Reason: Anxiety Last Admin: 10/31/18 20:09 Dose: 1 mg Multivitamins (Thera Tab) 1 tab PO 0800 [facility] Last Admin: 11/02/18 09:19 Dose: 1 tab Nicotine (Nicoderm Cq) 1 patch TD DAILY [facility] Last Admin: 11/01/18 10:22 Dose: 1 patch Prednisone (Prednisone Tab) 40 mg PO DAILY [facility] Last Admin: 11/02/18 09:19 Dose: 40 mg Thiamine HCl (Vitamin B1 Tab) 100 mg PO DAILY [facility] Last Admin: 11/02/18 09:19 Dose: 100 mg - Labs Labs: 10/31/18 07:15 10/31/18 07:15 PT 12.6 SECONDS (9.4-12.5) H 10/27/18 20:34 INR 1.14 10/27/18 20:34 APTT 31.2 Seconds (26.9-38.3) 10/27/18 20:34 Attending/Attestation - Attestation I have personally seen and examined this patient.: Yes I have fully participated in the care of the patient.: Yes I have reviewed all pertinent clinical information, including history, physical exam and plan: Yes Notes (Text): Patient seen and examined by me with resident at 10:35AM on 11/01/18 in the emergency room Case including HPI, physical exam, and assessment and plan discussed with resident. Agree with above with following additions/corrections. Patient is a 63-year-old male with past medical history significant for hypertension, COPD, TIA, coronary artery disease with stents status post CABG, noncompliance with medications and follow-up, alcohol abuse, and tobacco abuse that presented to the emergency room with left-sided chest pain. Patient is sleepy. Complains of some chest pain. Not answering other questions. Unable to obtain full review of systems from patient. Patient is afebrile. Physical exam: General: Sleepy, lying in bed in no acute distress HEENT: Normocephalic, atraumatic. Extraocular muscles intact, pupils equal and reactive, no scleral icterus. Oropharynx is pink and moist. No pharyngeal erythema or exudate appreciated. Neck is supple. Cardiovascular: Irregular rhythm. No murmur, rubs, or gallops appreciated Pulmonary: Normal respiratory effort. Positive expiratory wheezing. No rhonchi or rales appreciated. Gastrointestinal: Soft, nondistended. Nontender. Positive bowel sounds all 4 quadrants. No guarding. Musculoskeletal: Moves all extremities. No calf tenderness. No edema appreciated. Central nervous system: Sleepy but following commands. Dermatologic: Skin warm and dry. Assessment and plan: Patient is a 63-year-old male with past medical history significant for hypertension, COPD, TIA, coronary artery disease with stents status post CABG, noncompliance with medications and follow-up, alcohol abuse, and tobacco abuse that presented to the emergency room with left-sided chest pain. 1. Atrial flutter. Rate controlled. Cardiology recommendations appreciated. Continue Coreg. 2. Chest pain. ACS ruled out. Cardiology recommendations appreciated. Troponins within normal limits. Continue ASA, lipitor, and Coreg. 3. Acute on chronic COPD exacerbation. Improved. Continue nebulizer treatments. Continue Zithromax. Continue Prednisone. Patient counseled on smoking cessation. 4. Alcohol abuse and withdrawal. CIWA score of 3. Continue ativan prn. Continue thiamine, folic acid, and multivitamin. Counseled at length on alcohol cessation. 5. CAD s/p stents. Cardiology recommendations appreciated. Continue ASA, Plavix, Lipitor, and Coreg. 6. Hypertension. Continue Coreg. 7. Noncompliance with medications. Patient counseled at length on importance of compliance with medications and follow up. 8. Age-indeterminate inferior endplate compression fracture deformity at T8 vertebral body. Patient not complaining of pain. Outpatient follow up with ortho recommended. 9. Tobacco abuse. Counseled at length on tobacco cessation. 10. DVT prophylaxis. Heparin. 11. Patient is a full code. Case was discussed in detail with patient regarding current diagnosis, study results, and treatment plan. All questions answered.
[2018-11-02] MEDS: Albuterol-Ipratrop 3 mg / 0.5 (3 ml) UD IH SCH ×2 (01:00→04:30)
[2018-11-02 06:41] VITALS: BP 143/72; PULSE 68; RESP 17; TEMP 97.4; O2SAT 96
[2018-11-02] MEDS: Multivitamin Therapeutic Tab PO SCH (09:19)
--- NOTE | 2018-11-02 13:28 | CP.PCM.DIS ---
<Alisson Butcher - Last Filed: 11/02/18 21:06> Provider - Provider Date of Admission: 10/28/18 05:05 Attending physician: eBlinda Heath DO Consults: 10/28/18 05:51 Cardiology Consult Stat Comment: Consulting Provider: Milton Disla Consulting Physician: Milton Disla Reason for Consult: tachycardic, afib/flutter 10/28/18 06:20 Physician Consult Routine Comment: Acute or chronic wedge compression fracture of T8 Consulting Provider: Lauro Soliz Consulting Physician: Lauro Soliz Reason for Consult: Acute or chronic wedge compression fracture of T8 Additional Comments: Not present in immediate precedeing CT chest. (10/23/16) 10/29/18 16:34 Social Work Referral Routine Comment: d/c plan Physician Instructions: Reason For Exam: assess 10/29/18 17:13 Inpatient [employer] Core Measures Referral Routine Comment: a flutter/cp/etoh Physician Instructions: Reason For Exam: assess Transition In Care/Readmission Reduction Routine Comment: Physician Instructions: Reason For Exam: assess Time Spent in preparation of Discharge (in minutes): 45 Diagnosis - Discharge Diagnosis (1) Alcohol abuse Status: Acute (2) Alcohol intoxication Status: Acute (3) Alcohol withdrawal syndrome Status: Acute Hospital Course - Lab Results Lab Results: Micro Results 10/28/18 18:08 Blood Blood Culture - Preliminary NO GROWTH AFTER 4 DAYS 10/28/18 18:08 Blood Blood Culture - Preliminary NO GROWTH AFTER 4 DAYS 10/31/18 03:13 Urine,Clean Catch Urine Culture - Final No Growth (<1,000 CFU/ML) Most Recent Lab Values WBC 3.4 10^3/uL (4.5-11.0) L D 10/31/18 07:15 RBC 3.67 10^6/uL (3.5-6.1) 10/31/18 07:15 Hgb 11.2 g/dL (14.0-18.0) L 10/31/18 07:15 Hct 33.6 % (42.0-52.0) L 10/31/18 07:15 MCV 91.6 fl (80.0-105.0) 10/31/18 07:15 MCH 30.5 pg (25.0-35.0) 10/31/18 07:15 MCHC 33.3 g/dl (31.0-37.0) 10/31/18 07:15 RDW 15.2 % (11.5-14.5) H 10/31/18 07:15 Plt Count 208 10^3/uL (120.0-450.0) 10/31/18 07:15 MPV 9.7 fl (7.0-11.0) 10/31/18 07:15 Neut % (Auto) 85.4 % (50.0-68.0) H 10/31/18 07:15 Lymph % (Auto) 10.8 % (22.0-35.0) L 10/31/18 07:15 [place] % (Auto) 3.8 % (1.0-6.0) 10/31/18 07:15 Eos % (Auto) 0.0 % (1.5-5.0) L 10/31/18 07:15 Baso % (Auto) 0.0 % (0.0-3.0) 10/31/18 07:15 Lymph # (Auto) 0.4 (1.2-3.4) L 10/31/18 07:15 [place] # (Auto) 0.1 (0.1-0.6) 10/31/18 07:15 Eos # (Auto) 0.0 (0.0-0.7) 10/31/18 07:15 Baso # (Auto) 0.00 K/mm3 (0.0-2.0) 10/31/18 07:15 Absolute Neuts (auto) 2.93 (1.4-6.5) 10/31/18 07:15 PT 12.6 SECONDS (9.4-12.5) H 10/27/18 20:34 INR 1.14 10/27/18 20:34 APTT 31.2 Seconds (26.9-38.3) 10/27/18 20:34 Sodium 128 mmol/L (132-148) L 10/31/18 07:15 Potassium 4.3 mmol/L (3.6-5.0) 10/31/18 07:15 Chloride 93 mmol/L (98-107) L 10/31/18 07:15 Carbon Dioxide 28 mmol/L (21-33) 10/31/18 07:15 Anion Gap 11 (10-20) 10/31/18 07:15 BUN 15 mg/dL (7-21) 10/31/18 07:15 Creatinine 0.5 mg/dl (0.8-1.5) L 10/31/18 07:15 Est GFR ( Amer) > 60 10/31/18 07:15 Est GFR (Non-Af Amer) > 60 10/31/18 07:15 POC Glucose (mg/dL) 132 mg/dL (65-110) H 11/01/18 21:14 Random Glucose 130 mg/dL (70-110) H 10/31/18 07:15 Calcium 8.6 mg/dL (8.4-10.5) 10/31/18 07:15 Magnesium 1.8 mg/dL (1.7-2.2) 10/27/18 20:34 Total Bilirubin 0.4 mg/dL (0.2-1.3) 10/31/18 07:15 AST 32 U/L (17-59) 10/31/18 07:15 ALT 17 U/L (7-56) 10/31/18 07:15 Alkaline Phosphatase 58 U/L (38-126) 10/31/18 07:15 Troponin I < 0.01 ng/mL 10/28/18 07:30 NT-Pro-B Natriuret Pep 1840 pg/mL (0-450) H 10/27/18 20:34 Total Protein 6.0 g/dL (5.8-8.3) 10/31/18 07:15 Albumin 3.3 g/dL (3.0-4.8) 10/31/18 07:15 Globulin 2.7 gm/dL 10/31/18 07:15 Albumin/Globulin Ratio 1.2 (1.1-1.8) 10/31/18 07:15 Urine Color Yellow (YELLOW) 10/31/18 03:13 Urine Appearance Clear (CLEAR) 10/31/18 03:13 Urine pH 6.0 (4.7-8.0) 10/31/18 03:13 Ur Specific [place] 1.010 (1.005-1.035) 10/31/18 03:13 Urine Protein Negative mg/dL (<30 mg/dL) 10/31/18 03:13 Urine Glucose (UA) 100 mg/dL (NEGATIVE) H 10/31/18 03:13 Urine Ketones Negative mg/dL (NEGATIVE) 10/31/18 03:13 Urine Blood Negative (NEGATIVE) 10/31/18 03:13 Urine Nitrate Negative (NEGATIVE) 10/31/18 03:13 Urine Bilirubin Negative (NEGATIVE) 10/31/18 03:13 Urine Urobilinogen 0.2 E.U./dL (<1 E.U./dL) 10/31/18 03:13 Ur Leukocyte Esterase Negative Jenifer/uL (NEGATIVE) 10/31/18 03:13 Alcohol, Quantitative 193 mg/dL (0-10) H 10/27/18 20:34 - Hospital Course Hospital Course: Upon Admission: Patient is a 63 year old male with past medical history of noncompliance with multiple past ED visits, HTN, COPD, TIA, CAD with stents, CABG, EtOH abuse, and active tobacco abuse presenting to the ED intoxicated with initial complaint of localized L sided chest pain described as "angina". Patient was unable to be focused to provide further details of physical complaints due to intoxication. Patient increasingly agitated and verbally abusive to staff in ED, refusing treatment. Oral pharmacotherapy was offered to the patient in an effort to calm the patient, permit an accurate assessment and allow the patient to participate in his/her own treatment plan, but the patient was uncooperative, refused, and did not consent to oral therapy so the parenteral route was utilized. Patient was sedated with geodon in the ED. The patient was reassessed 15 minutes after medication administration and found to be with resolved agitation, sleeping comfortably, with stable vitals. Serial troponins drawn in the ED were within normal limits and pain had subsided, per ED physician. Patient later awoke, in a startled state. Monitor showed patient to be tachycardic in the 150s. EKG obtained by ED demonstrated atrial flutter at 108 bpm. Patient was nonverbal during my encounter, gave the middle finger when asked how he is feeling. No further information obtained due to patient's clinical status. Hospital Course: Pt was being worked up for his chest pain and etoh withdrawal symptoms. Pt had trops drawn which was negative x3. Pt was also continued on home ASA, plavix, coreg, statin. Pt was noted to have some wheezing on exam and was given duonebs and prednisone. Pt noted to have some tachycardic episodes so Xopenex was started. Pt was also put on CIWA precautions and ativan PRN and MAHSA was started to help prevent worsening of his withdrawal. Cardiology was consulted due to the tachycardia and was increased on his coreg to 12.5mg which controlled the pts HR. Pt was continuously monitored as pts CIWA score was improving. Pt was evenutally titrated off of ativan and was then walked. During pts [address] pts O2 sat did not drop below 92. Pt was steady on his feet and able to ambulate without assistance. Pt was cleared by cardiology to go home and the plan for discharge was explained to the pt. Pt expressed understanding and agreement with the plan for d/c. All of the pts questions and concerns were addressed prior to d/c. Discharge Exam - Head Exam Head Exam: NORMAL INSPECTION, NORMOCEPHALIC - Eye Exam Eye Exam: EOMI, Normal appearance, PERRL - Respiratory Exam Respiratory Exam: Wheezes (improved from initial exam). absent: Accessory Muscle Use, Prolonged Expiratory Phase, Rales, Rhonchi, Respiratory Distress, Stridor - Cardiovascular Exam Cardiovascular Exam: RRR, +S1, +S2. absent: Gallop, Rubs - GI/Abdominal Exam GI & Abdominal Exam: Normal Bowel Sounds, Soft, Unremarkable. absent: Distended, Firm, Tenderness - Extremities Exam Extremities exam: normal capillary refill, normal inspection, pedal pulses present - Back Exam Back exam: NORMAL INSPECTION. absent: CVA tenderness (L), CVA tenderness (R) - Neurological Exam Neurological exam: Alert, CN II-XII Intact, Normal Gait, Oriented x3 - Psychiatric Exam Psychiatric exam: Normal Affect, Normal Mood - Skin Skin Exam: Dry, Normal Color, Warm Discharge Plan - Discharge Medications Prescriptions: Albuterol HFA [Ventolin HFA 90 mcg/actuation (8 g)] 2 puff IH T1TUPDA #1 puff Aspirin [Low Dose Aspirin EC] 81 mg PO DAILY #14 tablet. Atorvastatin [Lipitor] 20 mg PO DIN #30 tab Azithromycin [Zithromax] 250 mg PO DAILY 2 Days #2 tab Budesonide/Formoterol Fumarate [Symbicort 80-4.5 Mcg Inhaler] 2 puff IH BID #1 hfa.aer.ad Carvedilol [Coreg] 12.5 mg PO BID #60 tab Clopidogrel [Plavix] 75 mg PO DAILY #30 tab Isosorbide Mononitrate ER [Imdur ER] 30 mg PO DAILY 30 Days #30 tab Montelukast [Singulair] 10 mg PO HS #30 tab Prednisone 10 mg PO DAILY #30 tab.ds.pk - Follow Up Plan Condition: GUARDED Disposition: HOME/ ROUTINE Instructions: Quitting Smoking, Coronary Heart Disease (DC), Alcohol Abuse and Alcoholism (DC), Atrial Flutter (DC) Additional Instructions: Please follow up with your primary care physician within 3-5 days of discharge from the hospital. Please get any refills needed on your medications from your primary care doctor. Please follow up with your chief of party, Dr. Disla, within 1 week of discharge from the hospital Please continue the medications that you were taking previously. Please start taking the following medications at this dose: Carvedilol 12.5mg. Take 1 tablet, by mouth 2 times a day. Prednisone 10mg. Please see the dose instructions listed. Please stop taking YOUR HOME MEDICATION WITH the lower dose of Carvedilol 3.125mg Please discuss all your medications with your doctors. Please stop smoking. Please stop drinking alcohol. If your symptoms return or you experience new symptoms, please return to the nearest emergency room Referrals: Milton Disla MD [Staff Provider] - Lauren Damon DO [Family Provider] - <Belinda Heath - Last Filed: 11/04/18 11:18> Provider - Provider Date of Admission: 10/28/18 05:05 Attending physician: Belinda Heath DO Consults: 10/28/18 05:51 Cardiology Consult Stat Comment: Consulting Provider: Milton Disla Consulting Physician: Milton Disla Reason for Consult: tachycardic, afib/flutter 10/28/18 06:20 Physician Consult Routine Comment: Acute or chronic wedge compression fracture of T8 Consulting Provider: Lauro Soliz Consulting Physician: Lauro Soliz Reason for Consult: Acute or chronic wedge compression fracture of T8 Additional Comments: Not present in immediate precedeing CT chest. (10/23/16) 10/29/18 16:34 Social Work Referral Routine Comment: d/c plan Physician Instructions: Reason For Exam: assess 10/29/18 17:13 Inpatient [employer] Core Measures Referral Routine Comment: a flutter/cp/etoh Physician Instructions: Reason For Exam: assess Transition In Care/Readmission Reduction Routine Comment: Physician Instructions: Reason For Exam: assess Hospital Course - Lab Results Lab Results: Micro Results 10/28/18 18:08 Blood Blood Culture - Final NO GROWTH AFTER 5 DAYS 10/28/18 18:08 Blood Gram Stain - Final TEST NOT PERFORMED 10/28/18 18:08 Blood Blood Culture - Final NO GROWTH AFTER 5 DAYS 10/28/18 18:08 Blood Gram Stain - Final TEST NOT PERFORMED 10/31/18 03:13 Urine,Clean Catch Urine Culture - Final No Growth (<1,000 CFU/ML) Most Recent Lab Values WBC 3.4 10^3/uL (4.5-11.0) L D 10/31/18 07:15 RBC 3.67 10^6/uL (3.5-6.1) 10/31/18 07:15 Hgb 11.2 g/dL (14.0-18.0) L 10/31/18 07:15 Hct 33.6 % (42.0-52.0) L 10/31/18 07:15 MCV 91.6 fl (80.0-105.0) 10/31/18 07:15 MCH 30.5 pg (25.0-35.0) 10/31/18 07:15 MCHC 33.3 g/dl (31.0-37.0) 10/31/18 07:15 RDW 15.2 % (11.5-14.5) H 10/31/18 07:15 Plt Count 208 10^3/uL (120.0-450.0) 10/31/18 07:15 MPV 9.7 fl (7.0-11.0) 10/31/18 07:15 Neut % (Auto) 85.4 % (50.0-68.0) H 10/31/18 07:15 Lymph % (Auto) 10.8 % (22.0-35.0) L 10/31/18 07:15 [place] % (Auto) 3.8 % (1.0-6.0) 10/31/18 07:15 Eos % (Auto) 0.0 % (1.5-5.0) L 10/31/18 07:15 Baso % (Auto) 0.0 % (0.0-3.0) 10/31/18 07:15 Lymph # (Auto) 0.4 (1.2-3.4) L 10/31/18 07:15 [place] # (Auto) 0.1 (0.1-0.6) 10/31/18 07:15 Eos # (Auto) 0.0 (0.0-0.7) 10/31/18 07:15 Baso # (Auto) 0.00 K/mm3 (0.0-2.0) 10/31/18 07:15 Absolute Neuts (auto) 2.93 (1.4-6.5) 10/31/18 07:15 PT 12.6 SECONDS (9.4-12.5) H 10/27/18 20:34 INR 1.14 10/27/18 20:34 APTT 31.2 Seconds (26.9-38.3) 10/27/18 20:34 Sodium 128 mmol/L (132-148) L 10/31/18 07:15 Potassium 4.3 mmol/L (3.6-5.0) 10/31/18 07:15 Chloride 93 mmol/L (98-107) L 10/31/18 07:15 Carbon Dioxide 28 mmol/L (21-33) 10/31/18 07:15 Anion Gap 11 (10-20) 10/31/18 07:15 BUN 15 mg/dL (7-21) 10/31/18 07:15 Creatinine 0.5 mg/dl (0.8-1.5) L 10/31/18 07:15 Est GFR ( Amer) > 60 10/31/18 07:15 Est GFR (Non-Af Amer) > 60 10/31/18 07:15 POC Glucose (mg/dL) 132 mg/dL (65-110) H 11/01/18 21:14 Random Glucose 130 mg/dL (70-110) H 10/31/18 07:15 Calcium 8.6 mg/dL (8.4-10.5) 10/31/18 07:15 Magnesium 1.8 mg/dL (1.7-2.2) 10/27/18 20:34 Total Bilirubin 0.4 mg/dL (0.2-1.3) 10/31/18 07:15 AST 32 U/L (17-59) 10/31/18 07:15 ALT 17 U/L (7-56) 10/31/18 07:15 Alkaline Phosphatase 58 U/L (38-126) 10/31/18 07:15 Troponin I < 0.01 ng/mL 10/28/18 07:30 NT-Pro-B Natriuret Pep 1840 pg/mL (0-450) H 10/27/18 20:34 Total Protein 6.0 g/dL (5.8-8.3) 10/31/18 07:15 Albumin 3.3 g/dL (3.0-4.8) 10/31/18 07:15 Globulin 2.7 gm/dL 10/31/18 07:15 Albumin/Globulin Ratio 1.2 (1.1-1.8) 10/31/18 07:15 Urine Color Yellow (YELLOW) 10/31/18 03:13 Urine Appearance Clear (CLEAR) 10/31/18 03:13 Urine pH 6.0 (4.7-8.0) 10/31/18 03:13 Ur Specific [place] 1.010 (1.005-1.035) 10/31/18 03:13 Urine Protein Negative mg/dL (<30 mg/dL) 10/31/18 03:13 Urine Glucose (UA) 100 mg/dL (NEGATIVE) H 10/31/18 03:13 Urine Ketones Negative mg/dL (NEGATIVE) 10/31/18 03:13 Urine Blood Negative (NEGATIVE) 10/31/18 03:13 Urine Nitrate Negative (NEGATIVE) 10/31/18 03:13 Urine Bilirubin Negative (NEGATIVE) 10/31/18 03:13 Urine Urobilinogen 0.2 E.U./dL (<1 E.U./dL) 10/31/18 03:13 Ur Leukocyte Esterase Negative Jenifer/uL (NEGATIVE) 10/31/18 03:13 Alcohol, Quantitative 193 mg/dL (0-10) H 10/27/18 20:34 Attending/Attestation - Attestation I have personally seen and examined this patient.: Yes I have fully participated in the care of the patient.: Yes I have reviewed all pertinent clinical information, including history, physical exam and plan: Yes Notes (Text): Please note this DC summary is for 11/02/18 Patient seen and examined by me with resident at approximately 9:45 AM and prior to discharge on 11/02/18. Case including discharge plan discussed with resident. Agree with above with following additions/corrections. Patient is a 63-year-old male with past medical history significant for hypertension, COPD, TIA, coronary artery disease with stents status post CABG, noncompliance with medications and follow-up, alcohol abuse, and tobacco abuse that presented to the emergency room with left-sided chest pain. Please see H&P for full details. Patient was found to have atrial flutter, chest pain, acute COPD exacerbation, alcohol abuse and withdrawal, CAD s/p stents, hypertension, noncompliance with medications and follow up, age-indeterminate inferior endplate compression fracture deformity at T8 vertebral body, and tobacco abuse. Patient was seen by chief of party. Home Coreg dosing was increased to 12.5mg PO BID. Patient was rate controlled. Patient also have chest pain. ACS was ruled out. Troponins were within normal limits. Patient was continued on ASA, Plavix, lipitor, and Coreg for CAD. Patient was continued on Coreg for hypertension. Per Dr. Viramontes, patient to continue home Imdur on discharge. Patient was also found to have age- indeterminate inferior endplate compression fracture deformity at T8 vertebral body on chest CT. Patient was not having back pain was outpatient orthopedic follow up was discussed at bedside at length with patient. Patient was also found to have COPD exacerbation. Chest CT per radiologist showed severe central lobular emphysema in the lungs; no evidence for mass, consolidation, or suspicious nodule; age indeterminate inferior endplate compression fracture deformity in T8 vertebral body. Patient was treated with nebulizer treatments, Zithromax, Solumedrol tapered to Oral prednisone. Patient was counseled at length on tobacco cessation. Patient was also found to have alcohol intoxication. Patient was treated with ativan, thiamine, folic acid, and MVI. Patient was placed on CIWA protocol. Patient was counseled at length on alcohol cessation. Patient was also noncompliant with treatment and refused blood work for last 2 days prior to discharge. Importance of compliance was discussed with patient, patient still refused. Patient is known to be noncompliant as an outpatient, patient was also counseled on this. Patient was feeling much better and was agitated asking to go home. Patient was walked with O2 saturation staying above 90% and no shortness of breath. Patient was discharged home. Medication refills were given. On day of discharge, patient stated he was feeling much better and was asking to go home. Patient was able to ambulate without shortness of breath. Patient denied any chest pain, palpitations, or shortness of breath. No nausea or vomiting. No headaches or dizziness. No fevers or chills. No dysuria. No back pain. Patient was having bowel movements. Physical exam: General: Awake and alert, sitting up in bed in no acute distress HEENT: Normocephalic, atraumatic. Extraocular muscles intact, pupils equal and reactive, no scleral icterus. Oropharynx is pink and moist. No pharyngeal erythema or exudate appreciated. Neck is supple. Cardiovascular: Irregular rhythm. No murmur, rubs, or gallops appreciated Pulmonary: Normal respiratory effort. Minimal expiratory wheezing. No rhonchi or rales appreciated. Gastrointestinal: Soft, nondistended. Nontender. Positive bowel sounds all 4 quadrants. No guarding. Musculoskeletal: Moves all extremities. No calf tenderness. No edema appreciated. Central nervous system: AAOx3, CN 2-12 grossly intact Dermatologic: Skin warm and dry. Please see chart for full details. Follow up instructions: Patient to follow-up with primary care doctor within 3-5 days. Patient to follow up with his chief of party within one week. Patient to take medications as prescribed. Patient advised to stop drinking and stop tobacco abuse. All instructions explained to the patient in detail. Patient both understands and agrees to all instructions. Written instructions also given. Time spent in discharging the patient including chart review, medication reconciliation, discussion with the patient, medical educator, consultants, and nursing staff was approximately 50 minutes.
== END 2018-11-02 15:03 | disposition home or self-care (01) | DRG 896 ==
LOC: ED 18:53 → OBSVTOIN 10-28 05:05 → ERH 10-28 05:05 → 2RNO 10-28 09:13 → 5RSO 10-30 11:47
PROVIDERS: ADMIT Hospitalist; ATTEND Hospitalist
DX: F10.239 Alcohol dependence with withdrawal, unspecified (principal); J18.9 Pneumonia, unspecified organism; I48.92 Unspecified atrial flutter; J44.0 Chronic obstructive pulmonary disease with (acute) lower respiratory infection; M48.54XA Collapsed vertebra, not elsewhere classified, thoracic region, initial encounter for fracture; J44.1 Chronic obstructive pulmonary disease with (acute) exacerbation; I10 Essential (primary) hypertension; F10.229 Alcohol dependence with intoxication, unspecified; Y90.6 Blood alcohol level of 120-199 mg/100 ml; I25.119 Atherosclerotic heart disease of native coronary artery with unspecified angina pectoris; I25.2 Old myocardial infarction; Z95.5 Presence of coronary angioplasty implant and graft; Z79.82 Long term (current) use of aspirin; Z91.19 Patient's noncompliance with other medical treatment and regimen; Z91.14 Patient's other noncompliance with medication regimen; Z95.1 Presence of aortocoronary bypass graft; Z98.84 Bariatric surgery status; Z86.73 Personal history of transient ischemic attack (TIA), and cerebral infarction without residual deficits; Z72.0 Tobacco use

== ENCOUNTER 2018-11-04 10:35 | Emergency (ER) | payer MEDICARE, MEDICAID ==
[2018-11-04 10:35] VITALS: PULSE 146; BMI 20.5
[2018-11-04] MEDS ORDERED: Morphine 4 mg/ml ISec IVP STA (10:59)
[2018-11-04] MEDS ORDERED: Sodium Chloride 0.9% 1,000 ML IV SCH (11:00)
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
[2018-11-04] MEDS ORDERED: Iohexol 350 MG/100 ML VIAL ONE (11:20)
[2018-11-04 11:50] LABS: EOS % 0.1 % (1.5-5.0); LYMPH # 1.1 (1.2-3.4); MEAN CELL VOLUME 92.6 fl (80.0-105.0); MEAN CORPUSCULAR HEMOGLOBIN 30.3 pg (25.0-35.0); MEAN CORPUSCULAR HGB CONC 32.7 g/dl (31.0-37.0); MEAN PLATELET VOLUME 9.2 fl (7.0-11.0); MONO # 0.8 (0.1-0.6); MONO % 8.7 % (1.0-6.0); RBC 3.63 10^6/uL (3.5-6.1); WHITE BLOOD COUNT 9.3 10^3/uL (4.5-11.0)
[2018-11-04 11:57] LABS: ALB/GLOB RATIO 1.5 (1.1-1.8); ALT/SGPT 31 U/L (7-56); AST/SGOT 66 U/L (17-59); BLOOD UREA NITROGEN 28 mg/dL (7-21); CALCIUM 9.5 mg/dL (8.4-10.5); GFR NON-AFRICAN AMERICAN > 60; LIPASE 200 U/L (23-300)
[2018-11-04 12:35] LABS: URINE BILIRUBIN NEGATIVE (NEGATIVE); URINE BLOOD NEGATIVE (NEGATIVE); URINE GLUCOSE (UA) NEGATIVE (NEGATIVE); URINE LEUKOCYTE ESTERASE NEGATIVE Leu/uL (NEGATIVE); URINE PROTEIN NEGATIVE mg/dL (<30 mg/dL); URINE UROBILINOGEN 0.2 E.U./dL (<1 E.U./dL)
[2018-11-04 12:36] LABS: URINE APPEARANCE CLEAR (CLEAR); URINE COLOR YELLOW (YELLOW)
[2018-11-04 12:55] VITALS: O2SAT 96
--- NOTE | 2018-11-04 13:03 | CT ---
Date of service: 11/04/2018 PROCEDURE: CT Abdomen and Pelvis with contrast HISTORY: LLQ pain, flank pain COMPARISON: None. TECHNIQUE: Contrast dose: 100 cc of Omni 350 Radiation dose: Total exam DLP = 333.04 mGy-cm. This CT exam was performed using one or more of the following dose reduction techniques: Automated exposure control, adjustment of the mA and/or kV according to patient size, and/or use of iterative reconstruction technique. FINDINGS: LOWER THORAX: Unremarkable. LIVER: Unremarkable. No gross lesion or ductal dilatation. GALLBLADDER AND BILE DUCTS: Gallbladder removed PANCREAS: Unremarkable. No gross lesion or ductal dilatation. SPLEEN: Unremarkable. ADRENALS: Unremarkable. No mass. KIDNEYS AND URETERS: Unremarkable. No hydronephrosis. No solid mass. VASCULATURE: Unremarkable. No aortic aneurysm. Aortic calcification BOWEL: Unremarkable. No obstruction. No gross mural thickening. Moderate constipation APPENDIX: Normal appendix. PERITONEUM: Unremarkable. No free fluid. No free air. LYMPH NODES: Unremarkable. No enlarged lymph nodes. BLADDER: Unremarkable. REPRODUCTIVE: Unremarkable. BONES: Disc degeneration at multiple levels OTHER FINDINGS: None. IMPRESSION: Moderate constipation. No acute intra-abdominal findings
[2018-11-04 13:59] VITALS: BP 127/74; PULSE 69; RESP 19; TEMP 98.1
--- NOTE | 2018-11-04 20:37 | CARD ---
APPROVED REPORT Date of service: 11/04/2018 EKG Measurement Heart [id number] <Conclusion> Atrial flutter with variable AV block Minimal voltage criteria for LVH, may be normal variant Junctional ST depression, probably normal Abnormal ECG
== END 2018-11-04 13:57 | disposition home or self-care (01) ==
LOC: ED 10:35
DX: R10.9 Unspecified abdominal pain (principal); I25.10 Atherosclerotic heart disease of native coronary artery without angina pectoris; I10 Essential (primary) hypertension; Z86.73 Personal history of transient ischemic attack (TIA), and cerebral infarction without residual deficits; Z95.1 Presence of aortocoronary bypass graft; Z95.5 Presence of coronary angioplasty implant and graft; Z79.02 Long term (current) use of antithrombotics/antiplatelets; F17.210 Nicotine dependence, cigarettes, uncomplicated
CPT/HCPCS: 74177; 80053; 81003; 83690; 85025; 93005; 96374; 96375; 99282; J2270; J2765; J7030; Q9967

== ENCOUNTER 2018-11-05 13:52 | Inpatient (IN) | payer MEDICARE, MEDICAID ==
[2018-11-05 13:53] VITALS: PULSE 146
[2018-11-05 14:10] VITALS: BMI 20.7
--- NOTE | 2018-11-05 14:57 | RAD ---
Date of service: 11/05/2018 HISTORY: sob COMPARISON: 10/28/2018 TECHNIQUE: 1 view obtained. FINDINGS: LUNGS: No active pulmonary disease. PLEURA: No significant pleural effusion identified, no pneumothorax apparent. CARDIOVASCULAR: No aortic atherosclerotic calcification present. Normal cardiac size. No pulmonary vascular congestion. OSSEOUS STRUCTURES: Sternal wires VISUALIZED UPPER ABDOMEN: Normal. OTHER FINDINGS: None. IMPRESSION: No active disease.
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
[2018-11-05 15:20] LABS: EOS % 0.3 % (1.5-5.0); HEMOGLOBIN 10.8 g/dL (14.0-18.0); LYMPH # 1.4 (1.2-3.4); LYMPH % 17.9 % (22.0-35.0); MEAN CELL VOLUME 93.1 fl (80.0-105.0); MEAN CORPUSCULAR HEMOGLOBIN 31.2 pg (25.0-35.0); MEAN CORPUSCULAR HGB CONC 33.5 g/dl (31.0-37.0); MEAN PLATELET VOLUME 9.2 fl (7.0-11.0); MONO # 0.7 (0.1-0.6); RBC 3.46 10^6/uL (3.5-6.1); RED CELL DISTRIBUTION WIDTH 16.2 % (11.5-14.5); WHITE BLOOD COUNT 7.7 10^3/uL (4.5-11.0)
[2018-11-05] MEDS: Albuterol-Ipratrop 3 mg / 0.5 (3 ml) UD IH SCH ×3 (15:26→16:00)
[2018-11-05 15:34] LABS: ACETAMINOPHEN < 10.0 ug/ml (10.0-20.0); SALICYLATE < 1 mg/dL (2.0-20.0)
[2018-11-05 15:46] LABS: B-TYPE NATRIURETIC PEPTIDE 2370 pg/mL (0-450); TROPONIN I < 0.01 ng/mL
[2018-11-05 16:02] LABS: PH,URINE 6.5 (4.7-8.0); URINE BILIRUBIN NEGATIVE (NEGATIVE); URINE BLOOD NEGATIVE (NEGATIVE); URINE GLUCOSE (UA) NEGATIVE (NEGATIVE); URINE LEUKOCYTE ESTERASE NEGATIVE Leu/uL (NEGATIVE); URINE PROTEIN NEGATIVE mg/dL (<30 mg/dL); URINE UROBILINOGEN 0.2 E.U./dL (<1 E.U./dL)
[2018-11-05 16:02] LABS: ALB/GLOB RATIO 1.6 (1.1-1.8); ALBUMIN 3.8 g/dL (3.0-4.8); ALT/SGPT 38 U/L (7-56); AST/SGOT 66 U/L (17-59); BLOOD UREA NITROGEN 26 mg/dL (7-21); CALCIUM 9.1 mg/dL (8.4-10.5); GFR NON-AFRICAN AMERICAN > 60
[2018-11-05 16:09] LABS: URINE APPEARANCE CLEAR (CLEAR); URINE COLOR LIGHT YELLOW (YELLOW)
[2018-11-05 16:21] LABS: BENZODIAZEPINES, UR NEGATIVE (NEGATIVE)
[2018-11-05 16:43] LABS: BARBITURATES, UR NEGATIVE (NEGATIVE); OPIATES, UR POSITIVE (NEGATIVE); PHENCYCLIDINE, UR NEGATIVE (NEGATIVE)
--- NOTE | 2018-11-05 22:50 | CP.PCM.PCO ---
<Delvis Edmonds - Last Filed: 11/05/18 22:45> Addendum Addendum: 11/05/18 22:45 House Doctor Note: Received page from Nurse Tamiko regarding Mr. Alexandra. Per nurse, the Patient is threatening to leave the hospital. Patient is here due to SI. Per Nurse, Patient is currently 1:1. Nurse is requesting for medication to help with behavioral issue, however the Patient is able to be re-oriented without medications at this time. Please continue to monitor the Patient, and please page ext [phone] again if needed. Delvis Edmonds PGY1 <Richar Max - Last Filed: 11/06/18 19:20> Attending/Attestation - Attestation I have personally seen and examined this patient.: No I have fully participated in the care of the patient.: No I have reviewed all pertinent clinical information: No
--- NOTE | 2018-11-05 22:50 | CARD ---
APPROVED REPORT Date of service: 11/05/2018 EKG Measurement Heart [id number] <Conclusion> Probably atrial flutter with varying degree of block- a moderate ventricular response Otherwise normal ECG
[2018-11-05] MEDS ORDERED: Pantoprazole 40 mg EC Tab PO STA (23:45)
[2018-11-06] MEDS ORDERED: Alum-Mag Hydrox-Simethicone Susp (30 mL) PO ONE (00:29)
[2018-11-06] MEDS: Albuterol-Ipratrop 3 mg / 0.5 (3 ml) UD IH SCH ×5 (01:14→20:39)
[2018-11-06] MEDS ORDERED: Albuterol HFA 90 mcg/actuation (8 g) IH SCH (02:00)
[2018-11-06] MEDS: Enoxaparin 80 mg Syringe SC SCH ×4 (06:03→21:54)
[2018-11-06 07:07] LABS: HEMOGLOBIN 10.9 g/dL (14.0-18.0); MEAN CELL VOLUME 93.3 fl (80.0-105.0); MEAN CORPUSCULAR HEMOGLOBIN 30.6 pg (25.0-35.0); MEAN CORPUSCULAR HGB CONC 32.8 g/dl (31.0-37.0); MEAN PLATELET VOLUME 9.2 fl (7.0-11.0); RBC 3.56 10^6/uL (3.5-6.1); RED CELL DISTRIBUTION WIDTH 16.3 % (11.5-14.5)
[2018-11-06 07:17] LABS: BLOOD UREA NITROGEN 27 mg/dL (7-21); CALCIUM 9.3 mg/dL (8.4-10.5); GFR NON-AFRICAN AMERICAN > 60; HDL CHOLESTEROL 82 mg/dL (29-60); IRON 83 ug/dL (45-180)
[2018-11-06 07:25] LABS: B-TYPE NATRIURETIC PEPTIDE 1910 pg/mL (0-450)
[2018-11-06 07:27] LABS: % IRON SATURATION 31 % (20-55); TOTAL IRON BINDING CAPACITY 271 ug/dL (261-462)
[2018-11-06 07:28] LABS: LDL CHOLESTEROL 75 mg/dL (0-129)
--- NOTE | 2018-11-06 09:30 | CARD ---
APPROVED REPORT Date of service: 11/05/2018 EKG Measurement Heart [id number] <Conclusion> Atrial flutter Nonspecific ST-T changes Abnormal ECG
[2018-11-06] MEDS: MethylPREDNISolone 40 mg Vial IVP SCH ×2 (09:47→21:53)
--- NOTE | 2018-11-06 12:08 | CON ---
DATE OF CONSULTATION: 11/06/2018 CARDIOLOGY CONSULTATION HISTORY: The patient is a 63-year-old male, who presents with a suicidal ideation. In addition, the patient complains of shortness of breath. He is a chronic smoker. His cardiac history includes history of coronary artery bypass surgery including PTCA afterwards. He denies chest pain. Currently, the patient is resting comfortably. REVIEW OF SYSTEMS: Review of systems is free of cardiac symptoms. PHYSICAL EXAMINATION: VITAL SIGNS: Stable. NECK: Negative JVD. LUNGS: Without rales. CARDIAC: Heart rate S1, S2. EXTREMITIES: Without edema. LABORATORY DATA: EKG shows no acute changes. Hemoglobin is 10.9. Troponins are negative x2. IMPRESSION: 1. Suicidal ideation. 2. Stable angina. 3. Chronic obstructive pulmonary disease. 4. Dyspnea secondary to chronic obstructive pulmonary disease. 5. History of coronary artery bypass surgery. 6. History of percutaneous transluminal coronary angioplasty. PLAN: Given these findings, the patient's cardiac status is stable. No further cardiac workup is indicated at this time. His treatment should be directed at the COPD. The patient can be sent to psych if necessary. Lauro Alejandra MD
[2018-11-06 12:48] LABS: FOLATE 13.5 ng/mL
[2018-11-06] MEDS: Budesonide 0.25 mg/2 ml Inhal Susp UD IH SCH (20:39)
[2018-11-06] MEDS: Arformoterol 15 mcg/2 ml Inh Sol IH SCH (20:39)
--- NOTE | 2018-11-06 21:37 | CON ---
DATE OF CONSULTATION: 11/06/2018 HISTORY OF PRESENT ILLNESS: In short, the patient is a 63-year-old male with past history of mood spectrum disorder, polysubstance abuse and dependence, and impulse control disorder. The patient has multiple medical issues, was admitted to the medical side for evaluation of shortness of breath. The patient has hypertension, COPD, TIA, coronary artery disease. The patient was admitted on the medical side, and this sba underwriter involved into the patient's care for evaluation of possible suicidal ideation. This sba underwriter is very familiar with this patient from the previous consultation services as well as admission to the psychiatric inpatient unit here in [place] in 2017. The patient was seen and examined today. The patient presented to be depressed. The patient reported that he was feeling hopeless and helpless because his friend, who saved him twice in [place] 4 days ago, and the patient just got to know about that after the patient's friend was buried. The patient reported, since that time, the patient had suicidal ideation with a plan to overdose by doing drugs or alcohol. The patient also reported to be stressed out about his living situation, about his health issues. The patient reported that previous medications, Seroquel and Celexa, helped him a lot in the past, and he is willing to resume those medication as well as the patient would be willing to admit himself into the psychiatric inpatient unit for further evaluation and stabilization. PHYSICAL EXAMINATION; VITAL SIGNS: Reviewed. Temperature 97.9, pulse 72, blood pressure 122/58, respirations 18, oxygen saturation is 97. MEDICATIONS: Reviewed. The patient is on Tylenol, DuoNeb, Brovana, aspirin, Lipitor, Pulmicort, Coreg. This sba underwriter would resume Celexa. The patient is on Plavix, vitamin B12, Lovenox, Pepcid, folic acid, Imdur, Claritin, Ativan, Solu-Medrol, Singulair, and Seroquel 50 mg at the nighttime. LABORATORY DATA: Labs reviewed. Chemistry reviewed. Urinalysis reviewed and toxicology was positive for opioids. MENTAL STATUS EXAMINATION: The patient appears to be alert, depressed, intermittent eye contact. Mood described as hopeless. Affect was mood congruent and flat. Thought process over-inclusive. Thought content, the patient denied visual, auditory, or tactile hallucinations. Denied paranoid ideation. The patient denied thoughts of harming herself or others, denied intent or plan. The patient reported suicidal ideation with a plan to overdose on drugs. The patient denied hearing voices, denied seeing things, but appeared to be mildly paranoid. Insight and judgment seemed to be limited. Impulses are unpredictable. IMPRESSION: Mood disorder, not otherwise specified, rule out major depressive disorder. As per history, polysubstance abuse and dependence. This sba underwriter would like to exclude major depressive disorder. The patient has antisocial personality disorder. PLAN: Celexa was resumed, Seroquel resumed. The patient is on one-to-one observation on the medical side. After medical stabilization, most likely the patient was required to stay into the psychiatric inpatient unit for further evaluation and stabilization. Should you have any questions give me a call back. Thank you very much for letting me participate in the care of your patient. Mariella Matute MD
[2018-11-07] MEDS: Albuterol-Ipratrop 3 mg / 0.5 (3 ml) UD IH SCH ×5 (01:45→19:40)
--- NOTE | 2018-11-07 02:17 | CON ---
DATE OF CONSULTATION: 11/06/2018 PULMONARY CONSULTATION REFERRING PHYSICIAN: Dr. Calderon. REASON FOR CONSULTATION: Chronic obstructive lung disease, cough, and shortness of breath. HISTORY OF PRESENT ILLNESS: This is a 63-year-old gentleman with chronic obstructive lung disease, history of coronary artery disease, history of CABG, multiple coronary stents, hypertension, history of recurrent TIA, heavy smoker, and history of heavy alcohol use, brought into emergency room with cough and shortness of breath, also has some suicidal ideation, received IV steroids and inhaled bronchodilator with some benefit of persistent symptoms, admitted presently on one-to-one supervision. No hemoptysis, no emesis, no hematuria, and no diarrhea reported. PAST MEDICAL HISTORY: Extensive coronary artery disease, history of CABG, coronary stent, COPD, hypertension, history of alcohol abuse, also has a history of seizure disorder, kidney stone, diabetes, GERD, and gallstone diverticulitis. There is also history of bipolar disorder, panic disorder, and also history of PTSD. FAMILY HISTORY: No significant cardiopulmonary disease reported. SOCIAL HISTORY: Positive smoking, also positive for alcohol abuse in the past, has had marijuana and cocaine abuse. ALLERGIES: EVE INHIBITOR, FISH PRODUCTS, SHELLFISH, SULFA. MEDICATIONS: He is on Ativan 1 mg every 6 hours p.r.n., Brovana inhaled twice a day, Celexa 10 mg daily, loratadine 10 mg daily, Coreg 12.5 mg twice a day, DuoNeb every 6 hours, Ecotrin 81 mg daily, folic acid 1 mg daily, Imdur ER 30 mg daily, Lipitor 20 mg daily, Lovenox 65 mg every 12 hours, Pepcid 40 mg daily, Plavix 75 mg daily, Pulmicort inhaled twice a day, Seroquel 50 mg at bedtime, Singulair 10 mg daily, Solu-Medrol 40 mg twice a day, Tylenol p.r.n., vitamin B12 of 100 mcg p.o. daily. REVIEW OF SYSTEMS: No headache. No rhinitis. Has cough, shortness of breath, history of suicidal ideation. No nausea, vomiting, diarrhea, leg pain or leg swelling. PHYSICAL EXAMINATION: GENERAL: No acute distress. VITAL SIGNS: Temperature is 98, heart rate 72, respiratory rate is 18, blood pressure 122/58, and pulse ox 97% on nasal cannula. HEENT: Moist mucous membranes. Crowded airway. NECK: Supple. No JVD. LUNGS: Have bilateral wheezing, prolonged expiratory phase. HEART: S1 and S2. ABDOMEN: Soft, nontender, no organomegaly. EXTREMITIES: No edema. NEUROLOGICALLY: Awake and alert, follows simple commands. LABORATORY DATA: Shows hemoglobin 10.9, hematocrit 33.2, WBC 4, platelet is 385. Sodium 132, potassium 4.9, chloride 93, bicarbonate 32, BUN 27, creatinine 0.8, glucose 113, hemoglobin A1c 5.8, calcium 9.3, iron is 83, troponin is less than 0.01, proBNP 1910, cholesterol is 166, vitamin B12 of 382, folate 13.5, T4 of (31.26), TSH 2.47. Chest x-ray done on admission in the ER shows no active pulmonary disease. An EKG done shows atrial flutter. IMPRESSION AND PLAN: Chronic obstructive lung disease, atrial flutter, coronary artery disease, history of coronary bypass surgery, history of coronary stent, hypertension, diabetes, history of seizure disorder, history of renal stone, bipolar disorder with depression, alcohol abuse. I agree with the present management. Continue steroids, inhaled bronchodilators. May start Zithromax 500 mg daily, gastric prophylaxis, and deep venous thrombosis prophylaxis. May give thiamine, fall precaution, delirium tremens precaution. Follow up labs in the morning. Thank you, and we will follow with you. Flor Finch MD
[2018-11-07] MEDS: Budesonide 0.25 mg/2 ml Inhal Susp UD IH SCH (07:34)
[2018-11-07] MEDS: Arformoterol 15 mcg/2 ml Inh Sol IH SCH ×2 (07:34→19:40)
[2018-11-07] MEDS: Enoxaparin 80 mg Syringe SC SCH ×3 (09:13→22:08)
[2018-11-07] MEDS: MethylPREDNISolone 40 mg Vial IVP SCH ×2 (09:14→22:09)
--- NOTE | 2018-11-07 13:11 | PN ---
DATE: 11/07/2018 SUBJECTIVE: The patient was seen today. The patient presented to be alert. The patient still complained of feeling of hopelessness and depression. The patient also reported that he still has suicidal ideation with a plan to either overdose on drugs or drink himself to . Suicidal ideation is related to the stress of losing his [place] friend who saved the patient's life twice during the service in [place]. The patient also reported that he had hallucinations overnight. The patient said that he heard devils voice, wanted the patient to be his servant and the patient reported that dino wanted to take his parents soul. The patient reported that he was very scared and paranoid over nighttime. The patient denied any psychosis in the morning time. So far, the patient tolerated medications well and had improved appetite. PHYSICAL EXAMINATION VITAL SIGNS: Reviewed. Temperature 97, pulse is 74. Blood pressure 154/82, respirations 22 and oxygen saturation is 97%. MEDICATIONS: Reviewed. The patient is on Brovana, aspirin, Lipitor, Zithromax, Pulmicort, Coreg, Celexa, Plavix, vitamin B12, Lovenox, folic acid, Imdur, Claritin, Ativan 1 mg IV push every 6 hours p.r.n., Solu-Medrol, Seroquel 50 mg at the nighttime and vitamin B1 200 mg. LABORATORY DATA: Labs reviewed. White blood cells 4.0, hemoglobin and hematocrit 10.9 and 33.2. Chemistry reviewed. Urinalysis reviewed. Toxicology reviewed for opioids positive. MENTAL STATUS EXAMINATION: The patient presented to be alert, pleasant, fair eye contact. Mood described as depressed and hopeless. Thought process seems to be coherent and goal-directed. Thought content; the patient reported that he still has suicidal ideation. The patient had hallucinations over nighttime. Insight and judgment seems to be limited, but improving. Impulses are well controlled. IMPRESSION: Rule out major depressive disorder, rule out substance-induced mood disorder. As per history, the patient has h/o polysubstance abuse and dependence. PLAN: The patient is willing to sign himself into the psychiatric inpatient unit. Meanwhile the patient on one to one. Primary care was notified about plan to transfer the patient to the psych unit whenever he is ready from the medical standpoint. We will continue monitoring and advise accordingly. Seroquel will be increased to 100 mg at the nighttime today. Over the weekend Dr. Manzanares would follow up and possibly transfer the patient to the psychiatric inpatient unit. Should you have any questions give me a call back. Mariella Matute MD [facility]
[2018-11-07] MEDS ORDERED: Alum-Mag Hydrox-Simethicone Susp (30 mL) PO ONE (17:51)
[2018-11-08] MEDS: Albuterol-Ipratrop 3 mg / 0.5 (3 ml) UD IH SCH ×4 (01:53→20:00)
--- NOTE | 2018-11-08 02:54 | PN ---
DATE: 11/07/2018 SUBJECTIVE: A 63-year-old male, came into the ER with shortness of breath, suicidal ideations, chest pain. The patient has a history of COPD, hypertension, hyperlipidemia, alcoholism, nicotine dependence, depression, anxiety. The patient was seen at the bedside today. He was alert, oriented x2 today. The patient reported some suicidal ideation with a plan. He also reported feeling depressed because a friend . The patient denies chest pain, palpitation, does report cough with phlegm, occasional shortness of breath with exertion, denies abdominal pain, dysuria, constipation. PHYSICAL EXAMINATION: VITAL SIGNS: Temperature 97, pulse rate 74, blood pressure is 157/84, respiratory 22, saturating 97% with nasal cannula at 3 liters. GENERAL: The patient appeared agitated, chronically ill. HEENT: Normocephalic. PERRLA. Mucous membranes dry. NECK: Supple. Normal inspection. RESPIRATORY: Wheeze, rhonchi. CARDIOVASCULAR: S1 and S2. No murmur. No gallop. ABDOMEN: Soft, nontender. No guarding. No organomegaly. SKIN: Normal color, intact. No cyanosis. No edema. NEUROLOGIC: The patient is alert and oriented x2-3. Cranial nerves II through XII intact. The patient seems to have some cognitive deficits. MEDICATIONS: The patient is on Tylenol every 4 hours, Duoneb, Brovana, aspirin 81 mg daily, Lipitor 20 mg, Zithromax 500 mg daily, budesonide 0.25 mg every 12 hours, Coreg 12.5 mg b.i.d., Celexa 10 mg p.o. daily, Plavix 75 mg p.o. daily, vitamin B12 100 mcg daily, Lovenox 65 mg subcu every 12 hours, Pepcid 40 mg at bedtime, folic acid 1 mg p.o. daily. The patient is on Imdur 30 mg daily, Claritin 10 mg, Ativan 1 mg IV push every 6 hours, Solu-Medrol 40 mg IVP, montelukast 10 mg at bedtime, Seroquel 50 mg p.o. at bedtime, vitamin B one tab daily. LABORATORY DATA: White blood cells 4, hemoglobin 10.9, hematocrit 33.2, platelet count 385. Sodium 132, potassium 4.9, BUN is 27, creatinine 0.8, GFR is over 60. Random glucose is 113. BNP was 1910. ASSESSMENT AND PLAN: Mr. Alexandra is a 63-year-old male with suicidal ideations, depression, anemia, hypertension, COPD, anxiety, hypercholesterolemia, alcoholism. The patient is being followed by Pulmonology, Cardiology, Psychiatry. The patient will continue Zithromax 500 daily, Lipitor, aspirin, nebulizer treatments, vitamin B1, folic acid, Solu-Medrol. The patient was seen by Psychiatry and is willing to go inpatient once medically cleared. We will follow up. agreed with all above , d/d with city jailer . chart , labs and meds noted , cont. same treatment , will f/u Terry Camargo APN La Calderon MD [facility]
[2018-11-08] MEDS: Arformoterol 15 mcg/2 ml Inh Sol IH SCH ×2 (07:28→20:00)
[2018-11-08] MEDS: Budesonide 0.25 mg/2 ml Inhal Susp UD IH SCH ×2 (07:29→20:00)
[2018-11-08 07:41] LABS: HEMOGLOBIN 11.6 g/dL (14.0-18.0); MEAN CELL VOLUME 93.3 fl (80.0-105.0); MEAN CORPUSCULAR HEMOGLOBIN 31.1 pg (25.0-35.0); MEAN CORPUSCULAR HGB CONC 33.3 g/dl (31.0-37.0); MEAN PLATELET VOLUME 8.9 fl (7.0-11.0); RBC 3.73 10^6/uL (3.5-6.1); RED CELL DISTRIBUTION WIDTH 17.1 % (11.5-14.5)
[2018-11-08 08:04] LABS: BLOOD UREA NITROGEN 26 mg/dL (7-21); CALCIUM 9.2 mg/dL (8.4-10.5); GFR NON-AFRICAN AMERICAN > 60
[2018-11-08] MEDS: MethylPREDNISolone 40 mg Vial IVP SCH (09:21)
[2018-11-08] MEDS: Enoxaparin 80 mg Syringe SC SCH ×2 (09:23→22:34)
--- NOTE | 2018-11-08 10:14 | PN ---
DATE: 11/08/2018 PULMONARY PROGRESS NOTE REFERRING PHYSICIAN: Dr. La Calderon. SUBJECTIVE: The patient seen sitting up at bedside. No acute distress. Per nursing staff, the patient was agitated last night. Reports that the patient pulled out IV access last night. The patient currently on one-to-one. Reports that he does have productive cough and some shortness of breath with exertion. No headache, rhinitis, chest pain, abdominal pain, nausea, vomiting, diarrhea, leg pain or leg swelling reported. Spoke with nursing staff regarding blood pressure which is noted at 194/83 this morning. Nursing staff reports that blood pressure was documented incorrectly the patient's actual blood pressure was 144/83. OBJECTIVE: GENERAL: No acute distress. VITAL SIGNS: Blood pressure 144/83, pulse 69, temperature 98.2 and oxygen saturation 95% on room air. HEENT: Moist mucous membranes. Crowded airway. NECK: Supple. No JVD. LUNGS: Wheezing bilaterally, rhonchi scattered bilaterally. CARDIOVASCULAR: S1 and S2. ABDOMEN: Soft and nontender. No distention. No organomegaly. EXTREMITIES: No bilateral lower extremity edema. NEUROLOGIC: Awake, alert and verbal. Following commands. MEDICATIONS: Reviewed. Tylenol 650 every 4 hours p.r.n. for fever and pain, DuoNeb 3 mL inhalation every 6 hours, Brovana 15 mcg inhalation every 12 hours, aspirin 81 mg daily, Lipitor 20 mg at dinner, Zithromax 500 mg p.o. daily, Pulmicort 0.25 mg inhalation every 12 hours, Coreg 12.5 mg twice a day, Celexa 10 mg daily, Plavix 75 mg daily, Vitamin B12 a 100 mcg daily, Lovenox 65 mg subcutaneous every 12 hours, Pepcid 40 mg at bedtime, folic acid 1 mg daily, Imdur 30 mg daily, Claritin 10 mg daily, Ativan 1 mg IV push every 6 hours p.r.n., Singulair 10 mg at bedtime, Solu-Medrol 40 mg every 12 hours, Seroquel 50 mg at bedtime and thiamine 200 mg daily. LABORATORY DATA: Reviewed. WBC 12, RBC 3.73, hemoglobin 11.6, hematocrit 34.8 and platelets 358. Sodium 125, potassium 5.2, chloride 88, carbon dioxide 28, anion gap 15, BUN 26, creatinine 0.7, GFR is greater than 60, random glucose 74 and calcium 9.2. IMPRESSION AND PLAN: Chronic obstructive lung disease, atrial flutter, coronary artery disease, history of coronary bypass surgery, history of coronary stent, diabetes mellitus, hypertension, history of seizure disorder, history of renal stone, bipolar disorder with depression and alcohol abuse. Continue inhaled bronchodilators. Continue antibiotic therapy, gastric prophylaxis, deep venous thrombosis prophylaxis, fall precaution and delirium tremens precaution. We will stop Solu-Medrol 40 mg every 12 hours as the patient pulled out IV access and per nursing staff refused to have one inserted at that time. We will start the patient on prednisone [address] patient on 1L fluid restriction for hyponatremia. Repeat labs in the morning. Recommend the patient have full pulmonary function test as outpatient to evaluate chronic lung disease. This patient was seen and examined with Dr. Finch. Discussed assessment and plan as described above. This patient was seen and examined with Rolando Castelan, nurse practitioner. Discussed assessment and plan as described above. Thank you for this consult. We will follow with you. Rolando Castelan APN Flor Finch MD [facility]
--- NOTE | 2018-11-08 19:23 | CON ---
DATE: 11/08/2018 HISTORY OF PRESENT ILLNESS: The patient was seen today on 11/08/2018. Psychiatrist is following up with the patient due to his behavioral issues and reported depression and suicidal thoughts with plan to overdose on drugs, drink himself to . I reviewed Dr. Matute's note consultations and met with the patient at bedside, as well as met with staff. The patient has been difficult, at times unreasonable on the medical floor, demanding to leave, and needs to be redirected on multiple occasions. One-to-one staff observation has been required due to the patient's impulsiveness and confusion. The patient also expressed suicidal thoughts to Dr. Matute during the consultation, she strongly recommended admission. Presently at this time, the patient denies having these thoughts and that he is feeling much better and that he plans to see his girlfriend; however, he has only known his girlfriend for a couple of days and met her on the unit. The patient is inconsistent, illogical, though he is oriented to month, year, and location. His responses are illogical and he cannot focus or express his needs in a consistent manner. At this time, this provider finds that he is too unpredictable to be allowed AMA and I do recommend psychiatric admissions, which he refuses. However, the patient also did agree later on in the conversation and then refused again. Regardless, if he refuses to be voluntarily hospitalized once medically cleared, he should be screened for involuntary admission. Labs reviewed and vitals reviewed. RELEVANT PSYCHIATRIC MEDICATIONS: Include, Ativan 1 mg IV every 6 hours p.r.n. and Seroquel 50 mg at bedtime. IMPRESSION: Likely major depressive disorder, rule out substance induced mood disorder, rule out component of delirium, the patient also has a history of polysubstance abuse dependence, rule our component of grief due to of his close friend recently. RECOMMENDATIONS: We will continue monitoring and advice accordingly. Seroquel will be increased to 100 mg at bedtime as this was not done last night and I will continue to follow up with the patient in the interm. As noted above, the patient refuses to sign in after he is medically cleared. [facility] should be called for screening for involuntary commitment. Nick Manzanares MD [facility] # [id number]
[2018-11-09] MEDS: Albuterol-Ipratrop 3 mg / 0.5 (3 ml) UD IH SCH ×6 (01:10→22:39)
[2018-11-09 07:14] LABS: EOS % 0.1 % (1.5-5.0); HEMOGLOBIN 11.4 g/dL (14.0-18.0); LYMPH # 2.4 (1.2-3.4); LYMPH % 15.2 % (22.0-35.0); MEAN CELL VOLUME 92.9 fl (80.0-105.0); MEAN CORPUSCULAR HEMOGLOBIN 31.3 pg (25.0-35.0); MEAN CORPUSCULAR HGB CONC 33.7 g/dl (31.0-37.0); MEAN PLATELET VOLUME 8.9 fl (7.0-11.0); MONO # 1.1 (0.1-0.6); MONO % 7.2 % (1.0-6.0); RBC 3.64 10^6/uL (3.5-6.1); WHITE BLOOD COUNT 15.6 10^3/uL (4.5-11.0)
[2018-11-09] MEDS: Budesonide 0.25 mg/2 ml Inhal Susp UD IH SCH ×2 (07:20→21:25)
[2018-11-09] MEDS: Arformoterol 15 mcg/2 ml Inh Sol IH SCH ×2 (07:20→21:25)
[2018-11-09 07:46] LABS: ALB/GLOB RATIO 1.5 (1.1-1.8); ALBUMIN 3.8 g/dL (3.0-4.8); ALT/SGPT 28 U/L (7-56); AST/SGOT 34 U/L (17-59); BLOOD UREA NITROGEN 25 mg/dL (7-21); GFR NON-AFRICAN AMERICAN > 60
[2018-11-09] MEDS: Enoxaparin 80 mg Syringe SC SCH ×2 (09:28→21:05)
[2018-11-09] MEDS: Albuterol-Ipratrop 3 mg / 0.5 (3 ml) UD IH PRN ×2 (11:27→17:50)
--- NOTE | 2018-11-09 14:24 | PN ---
DATE: 11/09/2018 PULMONARY PROGRESS NOTE REFERRING PHYSICIAN: Dr. La Calderon. SUBJECTIVE: The patient seen sitting at bedside. No acute distress. No overnight events reported. Nursing staff reports that the patent refused to have hep-lock inserted. No headache, rhinitis, chest pain, abdominal pain, nausea, vomiting, diarrhea, leg pain or leg swelling reported. The patient report that shortness of breath is better, reports that he still has coughing. OBJECTIVE: GENERAL: No acute distress. VITAL SIGNS: Blood pressure 137/71, pulse 76, temperature 98.1 and oxygen saturation 93% on room air. HEENT: Moist mucous membranes. Crowded airway. NECK: Supple. No JVD. RESPIRATORY: Rhonchi bilaterally. CARDIOVASCULAR: S1 and S2. ABDOMEN: Soft and nontender. No distention. No organomegaly. EXTREMITIES: No bilateral lower extremity edema. NEUROLOGIC: Awake, alert and verbal. Following commands. MEDICATIONS: Reviewed. Tylenol 650 every 4 hours p.r.n., DuoNeb 3 mL inhalation every 6 hours, DuoNeb 3 mL inhalation every 6 hours p.r.n., Brovana 15 mcg inhalation every 12 hours, aspirin 81 mg daily, Lipitor 20 mg at dinner, Zithromax 500 mg daily, Pulmicort 0.25 mg inhalation every 12 hours, Coreg 12.5 mg twice a day, Celexa 10 mg daily, Plavix 75 mg daily, vitamin B12 a 100 mcg daily, Lovenox 55 subcutaneous every 12 hours, Pepcid 40 mg at bedtime, folic acid 1 mg daily, Haldol 2 mg IM every 6 hours p.r.n., Imdur 30 mg daily, Claritin 10 mg daily, Ativan 1 mg IV push every 6 hours p.r.n., Singulair 10 mg at bedtime, prednisone 50 mg daily, Seroquel 100 mg at bedtime, Seroquel 12.5 mg twice a day and Vitamin B1 of 200 mg daily. LABORATORY DATA: Reviewed. WBC 15.6, RBC 3.64, hemoglobin 11.4, hematocrit 33.8 and platelets 341. Sodium 131, potassium 3.8, chloride 94, carbon dioxide 29, anion gap 12, BUN 25, creatinine 0.7, GFR is greater than 60, random glucose 87 and calcium 9.0. Total bilirubin 0.4, AST 34, ALT 28, alkaline phosphatase 49, total protein 6.3, albumin 3.8, globulin 2.5 and albumin-globulin ratio 1.5. IMPRESSION AND PLAN: Chronic obstructive lung disease, atrial flutter, coronary artery disease, history of coronary bypass surgery, history of coronary stent, diabetes mellitus, hypertension, history of seizure disorder, history of renal stone, bipolar disorder with depression and alcohol abuse. Continue inhaled bronchodilators, antibiotic therapy, deep venous thrombosis prophylaxis, gastric prophylaxis, fall precaution and delirium tremens precaution. Continue steroids current dosing. Recommend the patient have full pulmonary function test as outpatient to evaluate chronic lung disease. This patient was seen and examined with Dr. Finch. Discussed assessment and plan as described above. This patient was seen and examined with Rolando Castelan nurse practitioner. Discussed assessment and plan as described above. Thank you for this consult and we will follow with you. Rolando Castelan APN Flor Finch MD
--- NOTE | 2018-11-09 21:53 | CON ---
DATE: 11/09/2018 HISTORY OF PRESENT ILLNESS: The patient is a 63-year-old white male who Psychiatry is following due to reported depression and suicidal thoughts, which appear to have remitted in the last couple of days; however, more prevalent was his confusion and altered mental status this provider had concerns with. My recommend is that the patient be screened by [facility] once he is medically cleared due to patient's impulsive and illogical behavior on the medical floor. As my prior notes indicate he had attempted to leave on the medical floor multiple times and needed to be redirected and had escalated and ultimately we did one-to-one staff observation due to his confusion and to ensure his safety. That was from yesterday, he was observed inconsistent, illogical, poor focus, and could not express his needs or wants in a consistent manner. Today, he is a little bit calmer and focused and reports that he is going to stay in the hospital and be treated medically for his issues. He still does not want psychiatric admission and he continues to deny having any suicidal thoughts and his affect is congruent, he has reported improvement. At times, he can ramble and he is talkative, but he is not overtly disorganized and remains oriented to month, year, and location. Priorities appear to be in order. Impulse control is also improving and the patient presents as calmer and more rational. LABS AND VITALS: Are reviewed. RELEVANT PSYCHIATRIC MEDICATIONS: Include Ativan 1 mg IV every 6 hours and Seroquel 25 mg b.i.d. and 100 mg at bedtime. IMPRESSION: Likely major depressive disorder, rule out substance induced mood disorder with a component of delirium, also has a history of polysubstance abuse dependence and rule out component of grief due to of a close friend recently. Also likely the patient's confusion, impulsivity, altered mental status and behavioral difficulties were secondary to a combination of delirium and grief yesterday, but this appears to be at least acutely improving. We will continue with current medications. There is no acute indication for changing them at this point. The patient does appear to be a lot more lucid this morning; however, cannot I rule out that this is not a period of lucidity in this delirium process and Medicine has to determine ultimately whether the patient is no longer delirious, and if they do not find that he is delirious and be wanders then of course the patient can be discharged with any psychiatric concerns, but as noted I cannot rule out whether the patient is still delirious as he consistently demonstrates sustained improvement in clarity of thoughts and cessation. Nick Manzanares MD
--- NOTE | 2018-11-10 00:49 | PN ---
DATE: 11/09/2018 SUBJECTIVE: The patient is a 63-year-old male. The patient was seen and examined at the bedside on 11/09/2018. Looking comfortable. No headache. No dizziness. No chest pain. No palpitation. Sitting on the bed, was having dinner, reports that he still has coughing and shortness of breath, but no fever, no chills. PHYSICAL EXAMINATION VITAL SIGNS: Blood pressure 130/70, pulse 76, temperature 98.1, oxygen saturation 93% on room air. HEENT: Head; normocephalic, atraumatic. Eyes; PERRLA. Extraocular muscles intact. Conjunctivae clear. Nose patent. Mucous membranes moist. NECK: Supple. No carotid bruits, JVD, thyromegaly. CHEST: Bilaterally symmetrical. HEART: S1 and S2 positive. LUNGS: Clear to auscultation. ABDOMEN: Soft. Bowel sounds present. No organomegaly. EXTREMITIES: No edema. No cyanosis. NEUROLOGIC: The patient is awake and alert. Moving all four extremities. No focal deficits. MEDICATIONS: Tylenol, DuoNeb, Brovana, aspirin, Lipitor, Zithromax, Pulmicort, Coreg, Celexa, Plavix, Claritin, Ativan, Singulair and Seroquel. LABORATORY DATA: White blood cells 16.6, hemoglobin 11.4, hematocrit 33.8, platelets 341. Sodium 131, potassium 3.8, BUN 25, creatinine 0.7, GFR is greater than 60. ASSESSMENT AND PLAN: Mr. Nasrin Golden is a 63-year-old male with multiple medical problems, many comorbidities, have chronic obstructive pulmonary disease, atrial fibrillation, coronary artery disease, history of coronary artery bypass surgery, history of coronary stent, diabetes mellitus, hypertension, history of seizures, renal stones, bipolar, depression, alcohol abuse, getting inhaled bronchodilators. Psychiatrist and [place] [facility] is on the case. Gastrointestinal and deep venous thrombosis prophylaxis. Actually, plan was sent the patient to the Psychiatry department , but the patient refused in [place] [facility] , then we called consult with [facility] crisis, they came they said the patient is stable, not meet criteria for crisis, but still we are continuing present treatment, out of bed, physical therapy. We will followup. La Calderon MD MTDTheo
[2018-11-10] MEDS: Albuterol-Ipratrop 3 mg / 0.5 (3 ml) UD IH SCH ×4 (02:00→19:23)
[2018-11-10] MEDS: Arformoterol 15 mcg/2 ml Inh Sol IH SCH ×2 (07:15→19:23)
[2018-11-10] MEDS: Budesonide 0.25 mg/2 ml Inhal Susp UD IH SCH ×2 (07:15→19:24)
--- NOTE | 2018-11-10 08:19 | HP ---
DATE OF EXAM: 11/06/2018 CHIEF COMPLAINT: Shortness of breath. HISTORY OF PRESENT ILLNESS: Mr. Chico Alexandra is a 63-year-old male with past medical history of depression, hypertension, COPD, TIA, coronary artery disease, cardiac stenting, on Plavix for CABG, ethanol abuse and active tobacco abuser, came with shortness of breath, chronic cough for about two days and suicidal ideation, with shortness of breath since running out of nebulizer medication. The patient denies any homicidal ideation or plan. The patient actually went to see the doctor and got admitted with suicidal ideation. The patient denies any fever or chills. the patient to the emergency room. No abdominal pain, nausea, vomiting, or diarrhea. No back pain. PAST MEDICAL HISTORY: As above, history of hypertension, COPD, dizziness, migraine, fever, TIA, , diabetes mellitus, anemia, arthritis, GERD, dyspepsia, gallstones, anxiety/depression, and history of heroin, marijuana, and cocaine abuse. FAMILY HISTORY: Father and mother noncontributory. HABITS: Light smoker. Substance abuse with heroin, marijuana, and cocaine. ALLERGIES: THE PATIENT IS ALLERGIC WITH EVE INHIBITORS, FISH, SHELLFISH, AND SULFA. HOME MEDICATIONS: Folic acid and B12. REVIEW OF SYSTEMS: The patient was seen and examined at the bedside, actually be arousable. In the morning, the patient was little anxious. We had given Ativan . PHYSICAL EXAMINATION: HEENT: Head; normocephalic and atraumatic. Eyes; PERRLA. Extraocular muscles are intact. Conjunctivae clear. Nose patent. Mucous membranes moist. NECK: Supple. No carotid bruits, JVD, or thyromegaly. CHEST: Bilaterally symmetrical. HEART: S1 and S2 positive. LUNGS: Clear to auscultation. ABDOMEN: Soft. Bowel sounds present. No organomegaly. EXTREMITIES: No edema. No cyanosis. NEUROLOGIC: The patient is awake and alert. The patient is sleepy, arousable. Moving all four extremities. LABORATORY DATA: White blood cells , hemoglobin 10.9, hematocrit 33.2, and platelets 385. Sodium 132, potassium 4.9, BUN 27, creatinine 0.8, and glucose 113. BNP is 1910. ASSESSMENT AND PLAN: Mr. Chico Alexandra is a 63-year-old male with leukopenia, anemia, hypochloremia, hyperglycemia, and congestive heart failure. The patient has dyspnea secondary to chronic obstructive pulmonary disease, history of coronary artery disease, and history of percutaneous transluminal coronary angioplasty. Given these findings, the patient's cardiac status is stable. No further cardiac workup is indicated at this time, rule out exacerbation of chronic obstructive pulmonary disease. The patient was given Ativan, Brovana, Celexa, Claritin, Coreg, albuterol, aspirin, isosorbide, Lipitor, . La Calderon MD MTDD
--- NOTE | 2018-11-10 09:23 | PN ---
DATE: 11/08/2018 SUBJECTIVE: The patient is a 63-year-old male. The patient was seen and examined at bedside on 11/08/2018. The patient is still one-to-one, getting anxious. No fever. No chills. No hematuria. No hematochezia. No headache. No dizziness. The patient is a very poor historian. PHYSICAL EXAMINATION: VITAL SIGNS: Blood pressure 140/80, pulse 69, temperature 98.2, oxygen saturation 95% on room air. HEENT: Head: Normocephalic and atraumatic. Eyes: PERRLA. Extraocular muscles intact. Conjunctivae are clear. Nose patent. Mucous membrane moist. NECK: Supple. No carotid bruits. No JVD or thyromegaly. CHEST: Bilaterally symmetrical. HEART: S1 and S2 positive. LUNGS: Clear to auscultation. ABDOMEN: Soft. Bowel sounds present. No organomegaly. EXTREMITIES: No edema. No cyanosis. NEUROLOGIC: The patient is awake, alert. Moving all four extremities, but getting anxious off and on. MEDICATIONS: Tylenol, Duoneb, aspirin, Lipitor, Zithromax, Pulmicort, Coreg, Celexa, Lovenox, Pepcid, folic acid, Claritin, Solu-Medrol. LABORATORY DATA: White blood cell 12, hemoglobin 11.6, hematocrit 34.8. Sodium 125, potassium 5.2, BUN 26, creatinine 0.7. ASSESSMENT AND PLAN: Mr. Chico Alexandra is a 63-year-old male lung disease, atrial fibrillation, coronary artery disease, anxiety, history of coronary bypass surgery, history of cardiac stenting, diabetes mellitus, hypertension, history of seizures, renal stones, bipolar with depression, alcohol abuse and suicidal ideation. Continue antibiotics as per Infectious Disease. Getting Solu-Medrol with tapering dose. Plan to send the patient to Psychiatry but the patient refused to do the signature. We will call [place] Crisis team and we will work on that. the patient is on one-to-one. Repeat labs. We will follow up. La Calderon MD
--- NOTE | 2018-11-10 09:45 | PN ---
DATE: 11/07/2018 PULMONARY PROGRESS NOTE REFERRING PHYSICIAN: La Calderon MD SUBJECTIVE: He is lying in the bed, under one-to-one supervision, feels better. Still has cough and shortness of breath. No chest pain. No nausea, vomiting, diarrhea, leg pain, or leg swelling. Denies any suicidal ideation today. OBJECTIVE: GENERAL: In no acute distress. VITAL SIGNS: Temperature is 98, heart rate 74, respiratory rate is 22, blood pressure 157/84, pulse ox 97% on nasal cannula. HEENT: Moist mucous membranes. Crowded airway. NECK: Supple. No JVD. LUNGS: Have a prolonged expiratory phase and wheezing. HEART: S1, S2. ABDOMEN: Soft, nontender. No organomegaly. EXTREMITIES: No edema. NEUROLOGIC: Awake, alert. Follows simple commands. MEDICATIONS: He is on Ativan 1 mg IV every 6 hours p.r.n., Brovana inhaled twice a day, Celexa 10 mg daily, loratadine 10 mg daily, Coreg 12.5 mg twice a day, DuoNeb every 6 hours, Ecotrin 81 mg daily, folic acid 1 mg daily, isosorbide mononitrate 30 mg daily, Lipitor 20 mg daily, Levemir mg subcu every 12 hours, Pepcid 40 mg daily, Plavix 75 mg daily, Pulmicort inhaled twice daily, Seroquel 50 mg at bedtime, Singulair 10 mg daily, Solu-Medrol 40 mg every 12 hours, Tylenol p.r.n. basis, vitamin B1 of 200 mg daily, vitamin B12 of 100 mcg daily, Zithromax 500 mg daily. LABORATORY DATA: Reviewed. No new lab is available since yesterday. IMPRESSION AND PLAN: Chronic obstructive lung disease, atrial flutter, coronary artery disease, history of coronary artery bypass surgery, history of coronary stent, hypertension, diabetes, seizure disorder, history of renal stone, bipolar disorder with depression, alcohol abuse. Pulmonary point of view, continue IV and inhaled bronchodilator. Continue antibiotics, Gastric prophylaxis, deep venous thrombosis prophylaxis, multivitamins, thiamine. Psychiatry followup. Continue one-to-one until cleared by Psychiatry. Thank you, and we will follow with you. Flor Finch MD [facility] # [id number]
[2018-11-10] MEDS: Enoxaparin 80 mg Syringe SC SCH (10:25)
--- NOTE | 2018-11-10 10:31 | PN ---
DATE: 11/07/2018 This case was discussed with Dr. Calderon. She is in agreement with the plan. SUBJECTIVE: The patient is a 53-year-old male, came into the ER with suicidal ideations with plan, depression, shortness of breath, chest pain. He has a past medical history of COPD exacerbation, AFib, hypertension, alcoholism, CAD with stenting, nicotine dependence. The patient smokes two packs a day. I saw the patient today. He was alert and oriented, a bit agitated, still having suicidal ideations stating that he would jump off the window. He was very depressed because a close friend of his . The patient's conversation is incoherent at times. He is not in acute distress. He denies shortness of breath, abdominal pain, hemoptysis. He does have occasional harsh cough. The patient says that he smokes two packs a day, has COPD. Does admit to drinking on a regular, everyday. Did not elaborate on how much daily. Has depression, feels agitated. ALLERGIES: EVE INHIBITORS, FISH, SHELLFISH, SULFA, ANTIBIOTICS. PHYSICAL EXAMINATION: GENERAL: The patient appears chronically ill with some agitation and anxiety. VITAL SIGNS: Temperature 97, pulse rate 74, blood pressure 157/84, respiratory rate 22. The patient is sating 97% with O2 at 2 L nasal cannula. NECK: Supple. Normal inspection. RESPIRATORY: Scattered wheeze followed by low productive cough, white sputum. CARDIOVASCULAR: S1, S2. No murmur. No gallop. ABDOMEN: Soft, nontender. Positive bowel sounds. No organomegaly. SKIN: Intact. No cyanosis. EXTREMITIES: No calf tenderness, no edema. NEUROLOGIC: Today, the patient is alert and oriented x2-3. Cranial nerves II through XII intact. The patient has no cognitive deficits. MEDICATIONS: Tylenol 325 mg every 4 hours, DuoNeb every 6 hours, 15 mg every 12 hours, aspirin 81 mg, Lipitor 20 mg p.o., Zithromax 500 mg p.o. daily, Pulmicort 0.2 mg, Coreg 12.5 mg b.i.d., Celexa 10 mg, Plavix 75 p.o. daily, vitamin B12 100 mcg daily, Lovenox 65 mg subcu every 12 hours, Pepcid 40 mg at bedtime, folic acid 1 mg p.o. daily, Imdur 30 mg p.o. daily, Claritin 10 mg, Ativan 1 mg IVP every 6 hours for anxiety and for anxiety, Solu-Medrol 40 mg IVP every 12 hours, Singulair 10 mg daily, Seroquel 50 mg at bedtime, vitamin B1 daily. LABORATORY DATA: White blood cells 4, hemoglobin 10.9, hematocrit 33.2, platelets 385. Sodium 132, potassium 4.9, BUN 27, creatinine 0.8. BNP elevated at 1910. ASSESSMENT AND PLAN: This is a 53-year-old male with history of nicotine dependence, hypertension, chronic obstructive pulmonary disease exacerbation, congestive heart failure, suicidal ideation, anxiety, agitation, diabetes. The patient is being followed by Cardiology, Pulmonary. He was seen by Psychiatry as well. I am seeing the patient today. He is still having suicidal ideations with the plan to jump off the window. Test for coping skills. Psychiatry is willing to take patient inpatient once medically cleared. The patient is being discharged to Psychiatry. We will follow up. Terry Camargo APN La Calderon MD
--- NOTE | 2018-11-10 18:13 | PN ---
DATE: 11/10/2018 PULMONARY PROGRESS NOTE REFERRING PHYSICIAN: La Calderon MD SUBJECTIVE: The patient seen sitting up in bed. No acute distress noted. Nursing staff does report that the patient was noted agitated and was found aggressive behavior last night and refused nursing staff to obtain IV access and continues on fluid restriction. He still has coughing and get short of breath with exertion. No headache, rhinitis, chest pain, abdominal pain, nausea, vomiting, diarrhea, leg pain or leg swelling reported. OBJECTIVE: GENERAL: No acute distress. VITAL SIGNS: Blood pressure 106/53, pulse 75, temperature 98 and oxygen saturation 100% on room air. HEENT: Moist mucous membranes. Crowded airway. NECK: Supple. No JVD. RESPIRATORY: Rhonchi bilaterally. CARDIOVASCULAR: S1 and S2. ABDOMEN: Soft and nontender. No distention. No organomegaly. EXTREMITIES: No bilateral lower extremity edema. NEUROLOGIC: Awake, alert and verbal. Following commands. MEDICATIONS: Reviewed. Tylenol 650 every 4 hours p.r.n., DuoNeb 3 mL inhalation every 6 hours, DuoNeb 3 mL inhalation every 6 hours p.r.n., Brovana 15 mcg inhalation every 12 hours, aspirin 81 mg daily, Lipitor 20 mg at dinner, Zithromax 500 mg daily, Pulmicort 0.25 mg inhalation every 12 hours, Coreg 12.5 mg twice a day, Celexa 10 mg daily, Plavix 75 mg daily, vitamin B12 100 mcg daily, Lovenox 65 mcg subcutaneous every 12 hours, Pepcid 40 mg at bedtime, folic acid 1 mg daily, Haldol 2 mg IM every 6 hours p.r.n., Imdur 30 mg daily, Claritin 10 mg daily, Ativan 1 mg IV push every 6 hours p.r.n., Singulair 10 mg at bedtime, prednisone 50 mg daily, Seroquel 100 mg at bedtime, Seroquel 12.5 mg two times a day and vitamin B1 of 200 mg daily. LABORATORY DATA: Reviewed. No new labs since yesterday. IMPRESSION AND PLAN: Chronic obstructive lung disease, atrial flutter, coronary artery disease, history of coronary artery bypass grafting, history of coronary stents, diabetes mellitus, hypertension, history of seizure disorder, history of renal stone, bipolar disorder with depression and alcohol abuse. From pulmonary point of view, continue inhaled bronchodilators, antibiotic therapy, deep venous thrombosis prophylaxis, gastric prophylaxis. Continue delirium tremens precautions and fall precaution. We will decrease prednisone to 40 mg daily. Recommend the patient have full pulmonary function test as outpatient to evaluate extensive chronic lung disease. This patient was seen and examined with Dr. Finch. Discussed assessment and plan as described above. This patient was seen and examined with Rolando Castelan, nurse practitioner. Discussed assessment and plan as described above. Thank you for this consult and we will follow with you. Rolando Castelan APN Flor Finch MD [facility]
[2018-11-10] MEDS ORDERED: Pantoprazole 40 mg EC Tab PO STA (19:02)
--- NOTE | 2018-11-10 19:28 | CON ---
DATE: 11/10/2018 HISTORY OF PRESENT ILLNESS: The patient is a 63-year-old male who the psychiatrist is mutually following due to reports of depression and suicidal thoughts after learning one of his best friends had , however, concern became more and more about the patient's altered mental status and aggression and agitation on the medical floor in the last three days. His confusion and altered mental status is considered to be due to delirium as the patient has fluctuating levels of orientation, impulse control as well as confusion. The patient refused to go to the Psychiatric unit and has requested multiple times to be discharged [facility] was called to screen the patient to determine if patient met criteria for involuntary commitment; however, they visited with the patient yesterday and they had refused the patient for admission as they did not feel that he was a danger to himself or others. I met the patient again this morning and he seemed pretty calm. He is oriented to month, year and location. He remembers me from my prior interviews. He remembers his behaviors from the night before and states "yeah, I acted like a jackass;" however, he has no explanation except accepting the fact that he gets dwyer at night and he gets tired and dwyer. His focus is better, he is improving. It sounds like his symptoms of delirium are improving as well, however, I cannot rule out the fact that he might get confused again as the day goes on. The patient still refuses to transfer to Psychiatric unit. He continues to deny having any depression or suicidal thoughts or wishes. He is future oriented. [facility] His insight and judgment are improving. LABS AND VITALS: Reviewed. IMPRESSION: Likely mood spectrum disorder with a component of substance induced mood disorder and improving delirium. The patient was grieving due to the of a close friend recently. RELEVANT PSYCHIATRIC MEDICATIONS: Include Seroquel 100 mg at bedtime and 12.5 mg b.i.d., Haldol 2 mg IM every 6 hours p.r.n. which he received last night and Ativan 1 mg IV every 6 hours. RECOMMENDATIONS: At this time, this provider will continue medications, however, all medications except increased Seroquel to 12.5 mg t.i.d. with 100 mg at bedtime to help with night time confusion and agitation. We will continue to follow up. The patient is not willing to be voluntarily admitted. He does not meet criteria for involuntary commitment. Psychiatry cannot help further in regarding disposition, however, the patient is agreeable to [facility] and this provider is going to follow up with him in this regard for his mental health. Nick Manzanares MD
[2018-11-11] MEDS: Enoxaparin 80 mg Syringe SC SCH ×2 (01:13→10:18)
[2018-11-11] MEDS: Albuterol-Ipratrop 3 mg / 0.5 (3 ml) UD IH SCH ×2 (01:41→07:34)
--- NOTE | 2018-11-11 05:06 | PN ---
DATE: 11/10/2018 SUBJECTIVE: The patient is a 63-year-old male. The patient was seen and examined at the bedside on 11/10/2018. Looking comfortable. Still on one-to-one. Getting anxious. Still coughing with shortness of breath. He is not able to do his ADLs. No headache. No dizziness. No abdominal pain. The patient is a very poor historian. PHYSICAL EXAMINATION: VITAL SIGNS: Blood pressure 106/53, pulse 75, respiratory rate 18, oxygen saturation 100% on room air. HEENT: Head: Normocephalic and atraumatic. Eyes: PERRLA. Extraocular muscles are intact. Conjunctivae are clear. Nose is patent. Mucous membranes are moist. NECK: Supple. No carotid bruits. No JVD or thyromegaly. CHEST: Bilaterally symmetrical. HEART: S1 and S2 positive. LUNGS: Clear to auscultation. ABDOMEN: Soft. Bowel sounds present. No organomegaly. EXTREMITIES: No edema. No cyanosis. NEUROLOGIC: The patient is awake and alert. Moving all four extremities. MEDICATIONS: Tylenol, DuoNeb, Brovana, aspirin, Lipitor, Zithromax, Pulmicort inhalation, Coreg, Celebrex, Plavix, prednisone, Singulair, Seroquel 100 mg at bedtime, and Seroquel 12.5 mg. ASSESSMENT AND PLAN:copd exerbation , depresion , htn , anxiety , gerd , dyspepsea , amadou, non complient , psyche and pul is on the case , need to be transfer to psyche , Gastrointestinal and deep venous thrombosis prophylaxis. Repeat labs. Psychiatry is on the case. Trying to transfer the patient to [facility] . We will follow up. La Calderon MD MTDD
--- NOTE | 2018-11-11 07:15 | CP.PCM.PN ---
Subjective - Date & Time of Evaluation Date of Evaluation: 11/11/18 Time of Evaluation: 07:15 - Subjective Subjective: Patient was seen early today. He complained of chest pain and tingling feeling in fingers in both hands. Received 0.4mg SL NTG and an EKG was done. Has no complaints now. Medical record was reviewed. This 63 year old white male was admitted with shortness of breath, CHF. Has PMH of COPD, HTN ,TIA,migraine ,DM, arthritis , anemia, depression , CAD, coronary stent placement, CABG, GERD , dyspepsia, gallstones. Objective - Vital Signs/Intake and Output Vital Signs (last 24 hours): Temp Pulse Resp BP Pulse Ox 98.1 F 65 18 101/56 L 100 11/10/18 14:00 11/10/18 18:20 11/10/18 14:00 11/10/18 18:20 11/10/18 14:00 - Medications Medications: Current Medications Acetaminophen (Tylenol 325mg Tab) 650 mg PO Q4H PRN PRN Reason: pain fever Last Admin: 11/09/18 09:27 Dose: 650 mg Albuterol/Ipratropium (Duoneb 3 Mg/0.5 Mg (3 Ml) Ud) 3 ml IH [id number] [facility] Last Admin: 11/11/18 01:41 Dose: Not Given Albuterol/Ipratropium (Duoneb 3 Mg/0.5 Mg (3 Ml) Ud) 3 ml IH Q6H PRN PRN Reason: Shortness of Breath Last Admin: 11/09/18 17:50 Dose: 3 ml Arformoterol Tartrate (Brovana) 15 mcg IH [id number] [facility] Last Admin: 11/10/18 19:23 Dose: 15 mcg Aspirin (Ecotrin) 81 mg PO DAILY [facility] Last Admin: 11/10/18 09:50 Dose: 81 mg Atorvastatin Calcium (Lipitor) 20 mg PO DIN [facility] Last Admin: 11/10/18 17:08 Dose: 20 mg Azithromycin (Zithromax) 500 mg PO DAILY [facility]; Protocol Last Admin: 11/10/18 09:48 Dose: 500 mg Budesonide (Pulmicort Respules) 0.25 mg IH [id number] [facility] Last Admin: 11/10/18 19:24 Dose: 0.25 mg Carvedilol (Coreg) 12.5 mg PO BID [facility] Last Admin: 11/10/18 18:20 Dose: Not Given Citalopram Hydrobromide (Celexa) 10 mg PO DAILY [facility] Last Admin: 11/10/18 09:48 Dose: 10 mg Clopidogrel Bisulfate (Plavix) 75 mg PO DAILY [facility] Last Admin: 11/10/18 09:57 Dose: 75 mg Cyanocobalamin (Vitamin B12 100 Mcg Tab) 100 mcg PO DAILY [facility] Last Admin: 11/10/18 09:48 Dose: 100 mcg Enoxaparin Sodium (Lovenox) 65 mg SC Q12 [facility]; Protocol Last Admin: 11/11/18 01:13 Dose: Not Given Famotidine (Pepcid) 40 mg PO HS [facility] Last Admin: 11/11/18 01:13 Dose: Not Given Folic Acid (Folic Acid) 1 mg PO DAILY [facility] Last Admin: 11/10/18 10:24 Dose: 1 mg Haloperidol Lactate (Haldol) 2 mg IM Q6H PRN; Protocol PRN Reason: Agitation Last Admin: 11/10/18 09:53 Dose: 2 mg Isosorbide Mononitrate (Imdur Er) 30 mg PO DAILY [facility] Last Admin: 11/10/18 10:21 Dose: 30 mg Loratadine (Claritin) 10 mg PO DAILY [facility] Last Admin: 11/10/18 09:50 Dose: 10 mg Lorazepam (Ativan) 1 mg IVP Q6H PRN; Protocol PRN Reason: Anxiety Last Admin: 11/08/18 09:20 Dose: 1 mg Montelukast Sodium (Singulair) 10 mg PO HS [facility] Last Admin: 11/11/18 01:14 Dose: Not Given Prednisone (Prednisone Tab) 40 mg PO DAILY [facility] Quetiapine Fumarate (Seroquel) 100 mg PO HS [facility]; Protocol Last Admin: 11/11/18 01:14 Dose: Not Given Quetiapine Fumarate (Seroquel) 12.5 mg PO TID [facility]; Protocol Last Admin: 11/10/18 18:15 Dose: 12.5 mg Thiamine HCl (Vitamin B1 Tab) 200 mg PO DAILY [facility] Last Admin: 11/10/18 10:21 Dose: 200 mg - Labs Labs: 11/09/18 07:00 11/09/18 07:00 - Constitutional Appears: Well, No Acute Distress - Head Exam Head Exam: ATRAUMATIC, NORMAL INSPECTION, NORMOCEPHALIC Additional comments: Sitting comfortably at the edge of bed. - Eye Exam Eye Exam: Normal appearance - ENT Exam ENT Exam: Normal External Ear Exam - Neck Exam Neck Exam: Normal Inspection - Respiratory Exam Respiratory Exam: NORMAL BREATHING PATTERN - Cardiovascular Exam Cardiovascular Exam: absent: JVD - GI/Abdominal Exam GI & Abdominal Exam: absent: Distended - Rectal Exam Rectal Exam: Deferred - Exam Additional comments: Deferred. - Extremities Exam Extremities Exam: Normal Inspection - Back Exam Back Exam: NORMAL INSPECTION - Neurological Exam Neurological Exam: Alert, Awake, Oriented x3 - Psychiatric Exam Psychiatric exam: Normal Affect, Normal Mood - Skin Skin Exam: Normal Color Assessment and Plan - Assessment and Plan (Free Text) Assessment: Chest pain. COPD. HTN CAD CABG Hx DM Migraine Anemia. GERD Plan: EKG--->Junctional ST depression, atrial fibrillation. NTG 0.4 mg SL stat. Continue present management. There is a plan to discharge patient home.
[2018-11-11] MEDS: Budesonide 0.25 mg/2 ml Inhal Susp UD IH SCH (07:34)
[2018-11-11] MEDS: Arformoterol 15 mcg/2 ml Inh Sol IH SCH (07:34)
[2018-11-11 08:08] VITALS: RESP 22; TEMP 97.8; O2SAT 94
[2018-11-11 10:19] VITALS: BP 159/96; PULSE 101
--- NOTE | 2018-11-11 11:45 | CARD ---
APPROVED REPORT Date of service: 11/11/2018 EKG Measurement Heart [id number] <Conclusion> Atrial flutter with 4:1 AV conduction Minimal voltage criteria for LVH, may be normal variant Junctional ST depression, probably normal Abnormal ECG
--- NOTE | 2018-11-11 12:46 | PN ---
DATE: 11/11/2018 PULMONARY PROGRESS NOTE REFERRING PHYSICIAN: Dr. La Calderon. SUBJECTIVE: The patient is seen standing in a doorway of his room; reports that he wants to leave today. No acute distress. The patient had complaints of chest pain earlier this morning, EKG was done. Nitroglycerin stat was given. At this time, he reports that he is feeling well. No chest pain. He wants to go home. States that he will sign himself out against medical advice. The patient still has cough, gets some shortness of breath with exertion. No headache, rhinitis, chest pain, abdominal pain, nausea, vomiting, diarrhea, leg pain, or leg swelling reported. OBJECTIVE: GENERAL: No acute distress. VITAL SIGNS: Blood pressure 159/96, pulse 101, temperature 97.8, and oxygen saturation 94% on room air. HEENT: Moist mucous membranes. Crowded airway. NECK: Supple. No JVD. RESPIRATORY: Rhonchi bilaterally. CARDIOVASCULAR: S1 and S2. ABDOMEN: Soft and nontender. No distention. No organomegaly. EXTREMITIES: No bilateral lower extremity edema. NEUROLOGIC: Awake, alert, and verbal. Following commands. MEDICATIONS: Reviewed. Tylenol 650 every 4 hours p.r.n. for fever and pain, DuoNeb 3 mL inhalation every 6 hours, DuoNeb 3 mL inhalation every 6 hours p.r.n., Brovana 15 mcg every 12 hours, aspirin 81 mg daily, Lipitor 20 mg at dinner, Zithromax 500 mg daily, Pulmicort 0.25 mg inhalation every 12 hours, Coreg 12.5 mg twice a day, Celexa 10 mg daily, Plavix 75 mg daily, vitamin B12 of 100 mcg daily, Lovenox 55 mg subcutaneous every 12 hours, Pepcid 40 mg at bedtime, folic acid 1 mg daily, Haldol 2 mg IM every 6 hours p.r.n., Imdur 30 mg p.o. daily, Claritin 10 mg daily, Ativan 1 mg IV push every 6 hours p.r.n., Singulair 10 mg at bedtime, nitroglycerin stat 0.4 mg given this morning, Protonix 40 mg stat yesterday, prednisone 40 mg daily, Seroquel 100 mg p.o. at bedtime, Seroquel 12.5 mg p.o. three times a day, and vitamin B1 of 200 mg daily. LABORATORY DATA: Reviewed. EKG showed atrial flutter. IMPRESSION AND PLAN: Chronic obstructive lung disease, atrial flutter, coronary artery disease, history of coronary artery bypass grafting, history of coronary stents, diabetes mellitus, hypertension, history of seizure disorder, history of renal stones, bipolar disorder with depression, and alcohol abuse. Discussed with the patient in depth against signing against medical advice. Discussed with the patient chronic lung disease, a need for continued monitoring, the patient verbalized understanding. Continues to say that he wants to go home. Pulmonary point of view, continue inhaled bronchodilators, antibiotic therapy, deep venous thrombosis prophylaxis, gastric prophylaxis, and fall precautions. Continue delirium tremens precautions. We recommend this patient have full pulmonary function test as outpatient to evaluate chronic lung disease. This patient was seen and examined with Dr. Finch. Discussed assessment and plan as described above. This patient was seen and examined with Rolando Castelan, nurse practitioner. Discussed assessment and plan as described above. Thank you for this consult. We will follow with you. Rolando Castelan APN Flor Finch MD
--- NOTE | 2018-11-11 21:05 | CON ---
DATE: 11/11/2018 HISTORY OF PRESENT ILLNESS: The patient is a 63-year-old male who Psychiatry is following initially due to reports of depression and suicidal thoughts though those have resolved and Psychiatry has continued to follow up with him because of the patient's thoughts of agitation, mostly at night time on the medical floor. This provider recently increased Seroquel to 12.5 mg t.i.d. and keeping the 100 mg at bedtime dose to help with the patient's tendency to sundown and this appears to have been pretty effective. There appears to be no further incidences of agitation last night. Although he did not take Seroquel 100 mg at bedtime, he was able to remain calm and did not need p.r.n. in this respect. The patient has refused to go to the psychiatric unit and making that he was feeling better, no longer feels suicidal with the depressions improved. He indicated that he was initially grieving because of the loss of a good friend; however, he is improving right now and is hopeful and future oriented and has been compliant with medical staff requests. His insight and judgment are improving and it appears that his delirium also appears to be clearing. His thought process continues to be coherent when I meet with him in the mornings, he can joke around and he is more pleasant and patient and receptive in my visits with him in the last couple of days. 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 The patient was also experiencing grief through the of a close friend recently. PSYCHIATRIC MEDICATIONS: Include Seroquel 100 mg at bedtime and 12.5 mg t.i.d., Haldol 2 mg IM every 6 hours p.r.n. and Ativan 1 mg IV every 6 hours p.r.n. RECOMMENDATIONS: At this time, I will continue with Seroquel 12.5 mg t.i.d. to help with his tendency to sundown in the evening and become agitated. Decrease Seroquel 100 mg at bedtime to 50 mg at bedtime and just will taper as delirium continues to improve. The patient is not willing to be voluntarily admitted and [place] has visited with the patient and indicated that he does not meet involuntary commitment criteria at this time and making more what psychiatry can do regarding his disposition. As such our recommendations for outpatient psychiatric services. He wants to get discharged. He is getting referrals in this regard. At this time, Psychiatry will follow peripherally, please reconsult p.r.n. and one-to-one may be discontinued. Nick Manzanares MD
--- NOTE | 2018-11-12 09:24 | DS ---
This case was discussed with Dr. Calderon. She is in agreement with the treatment plan. HISTORY OF PRESENT ILLNESS: The patient is a 63-year-old male who came in with suicidal ideation, COPD, alcohol abuse, and nicotine dependence. PAST MEDICAL HISTORY: Hypertension, suicidal ideation, alcohol abuse, nicotine dependence, shortness of breath, and chest pain NOS. REVIEW OF SYSTEMS: I saw the patient today at the bedside. The patient denies shortness of breath, chest pain, cough, hematuria, hematochezia, dysuria, or abdominal pain. The patient also denies suicidal ideation, said that was all over, that was in the past. PHYSICAL EXAMINATION: VITAL SIGNS: Temperature 97.8, pulse rate 78, blood pressure 151/103, respirations 22, and sat 94% on room air. GENERAL: The patient appeared in no acute distress, chronically ill. Stated he has occasional cough. No sputum. HEENT: Normocephalic. PERRLA. Mucous membranes moist. NECK: Supple. Normal inspection. RESPIRATORY: Wheezing, clears with cough. CARDIOVASCULAR: S1 and S2. No JVD. No murmur. No gallop. GASTROINTESTINAL: Abdomen is soft. No tenderness. No organomegaly. Positive bowel sounds. SKIN: Warm to touch. No cyanosis. No edema. Moving all extremities. NEUROLOGIC: Alert and oriented x2-3. Cranial nerves II through XII intact. DISCHARGE MEDICATIONS: Tylenol 325, DuoNeb, Brovana, aspirin, Lipitor, Zithromax, budesonide, Coreg, Celexa, Plavix, vitamin B12, Pepcid, folic acid, Haldol, Imdur, Claritin, Singulair, nitroglycerin, prednisone, Protonix, Seroquel, and thiamine B1. LABORATORY DATA: On 11/09/2018, chemistries; sodium 131, potassium 3.8, BUN 25, creatinine 0.7, and GFR over 60. Hematology; last hematology was 11/09/2018, we will do a new one in the office. ASSESSMENT AND PLAN: This is a 63-year-old male who came in with suicidal ideation, hypertension, chronic obstructive pulmonary disease, alcohol abuse, substance abuse, and nicotine dependence. The patient was seen by Psychiatry and it was advised for him to be inpatient; however, the patient refused inpatient with [facility], told me today that he was no longer suicidal, that was all in the past. The patient was discharged from one-to-one today. From Psychiatry, we will try to prevent the patient to be one-to-one for at least 24 hours, he was not complying with that. The patient wanted to go home and signed himself out against medical advise that was explained to him that he will have to sign himself out against medical advice because we wanted to see if the patient would be okay for 24 hours without one-to-one. The patient will sign himself out against medical advice with meds at bedside. The patient will follow up in the office within 1-2 weeks with us. The patient has a lot of other social issues. He has nicotine dependence, he drinks daily, admits to alcohol abuse, admits to depression. The patient lives in [facility], it was admits to post-traumatic stress disorder. We will follow up the patient's care. Terry Camargo APN La Calderon MD MTDTheo
== END 2018-11-11 11:03 | disposition left against medical advice (07) | DRG 191 ==
LOC: ED 13:52 → ERH 18:42 → 5RNO 19:56
PROVIDERS: ADMIT Internal Medicine; ATTEND Internal Medicine
DX: J44.1 Chronic obstructive pulmonary disease with (acute) exacerbation (principal); R45.851 Suicidal ideations; I48.92 Unspecified atrial flutter; E87.1 Hypo-osmolality and hyponatremia; F17.200 Nicotine dependence, unspecified, uncomplicated; F31.9 Bipolar disorder, unspecified; F19.14 Other psychoactive substance abuse with psychoactive substance-induced mood disorder; F60.2 Antisocial personality disorder; G40.909 Epilepsy, unspecified, not intractable, without status epilepticus; I25.118 Atherosclerotic heart disease of native coronary artery with other forms of angina pectoris; F14.10 Cocaine abuse, uncomplicated; F12.10 Cannabis abuse, uncomplicated; F17.210 Nicotine dependence, cigarettes, uncomplicated; G43.909 Migraine, unspecified, not intractable, without status migrainosus; F41.0 Panic disorder [episodic paroxysmal anxiety]; F43.10 Post-traumatic stress disorder, unspecified; I11.0 Hypertensive heart disease with heart failure; I50.9 Heart failure, unspecified; E11.65 Type 2 diabetes mellitus with hyperglycemia; F11.10 Opioid abuse, uncomplicated; G47.33 Obstructive sleep apnea (adult) (pediatric); E78.00 Pure hypercholesterolemia, unspecified; K21.9 Gastro-esophageal reflux disease without esophagitis; F10.20 Alcohol dependence, uncomplicated; I48.91 Unspecified atrial fibrillation; D64.9 Anemia, unspecified; E78.5 Hyperlipidemia, unspecified; Z86.73 Personal history of transient ischemic attack (TIA), and cerebral infarction without residual deficits; Z88.2 Allergy status to sulfonamides; Z95.5 Presence of coronary angioplasty implant and graft; Z87.442 Personal history of urinary calculi; Z95.1 Presence of aortocoronary bypass graft

== ENCOUNTER 2018-11-12 03:46 | Inpatient (IN) | payer MEDICARE, MEDICAID ==
[2018-11-12 03:46] VITALS: PULSE 146; BMI 20.7
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
[2018-11-12] MEDS ORDERED: Albuterol-Ipratrop 3 mg / 0.5 (3 ml) UD IH SCH (04:15)
[2018-11-12 04:49] LABS: EOS % 0.4 % (1.5-5.0); HEMOGLOBIN 10.7 g/dL (14.0-18.0); LYMPH # 2.6 (1.2-3.4); LYMPH % 24.6 % (22.0-35.0); MEAN CELL VOLUME 92.2 fl (80.0-105.0); MEAN CORPUSCULAR HEMOGLOBIN 30.7 pg (25.0-35.0); MEAN CORPUSCULAR HGB CONC 33.3 g/dl (31.0-37.0); MEAN PLATELET VOLUME 8.5 fl (7.0-11.0); MONO # 1.2 (0.1-0.6); MONO % 11.2 % (1.0-6.0); RBC 3.48 10^6/uL (3.5-6.1); RED CELL DISTRIBUTION WIDTH 17.5 % (11.5-14.5); WHITE BLOOD COUNT 10.7 10^3/uL (4.5-11.0)
[2018-11-12 04:50] LABS: INR 0.95; PARTIAL THROMBOPLASTIN TIME 26.3 Seconds (26.9-38.3); PROTHROMBIN TIME 10.7 SECONDS (9.4-12.5)
[2018-11-12 05:02] LABS: B-TYPE NATRIURETIC PEPTIDE 2070 pg/mL (0-450); TROPONIN I < 0.01 ng/mL
[2018-11-12 05:08] LABS: ALB/GLOB RATIO 1.5 (1.1-1.8); ALBUMIN 3.9 g/dL (3.0-4.8); ALT/SGPT 50 U/L (7-56); AST/SGOT 72 U/L (17-59); BLOOD UREA NITROGEN 20 mg/dL (7-21); CALCIUM 8.9 mg/dL (8.4-10.5); GFR NON-AFRICAN AMERICAN > 60
[2018-11-12] MEDS ORDERED: Albuterol HFA 90 mcg/actuation (8 g) IH PRN (06:54)
[2018-11-12] MEDS: Albuterol-Ipratrop 3 mg / 0.5 (3 ml) UD IH PRN ×2 (08:19→14:44)
--- NOTE | 2018-11-12 09:48 | RAD ---
Date of service: 11/12/2018 HISTORY: sob COMPARISON: 11/05/2018 TECHNIQUE: 1 view obtained. FINDINGS: LUNGS: Surgical clips in the left hilum. The lungs are clear PLEURA: No significant pleural effusion identified, no pneumothorax apparent. CARDIOVASCULAR: No aortic atherosclerotic calcification present. Normal cardiac size. No pulmonary vascular congestion. OSSEOUS STRUCTURES: No significant abnormalities. VISUALIZED UPPER ABDOMEN: Normal. OTHER FINDINGS: None. IMPRESSION: No active disease.
[2018-11-12] MEDS ORDERED: Home Med 1 UNIT IH SCH (10:00)
--- NOTE | 2018-11-12 10:04 | CP.PCM.APN ---
Subjective - Date & Time of Evaluation Date of Evaluation: 11/12/18 Time of Evaluation: 09:45 - Subjective Subjective: pt seen and examined at bedside, pt states his SOB is better Review of Systems - Constitutional Constitutional: As Per HPI Objective - Vital Signs/Intake and Output Vital Signs (last 24 hours): Temp Pulse Resp BP Pulse Ox 98.2 F 79 22 146/79 98 11/12/18 03:51 11/12/18 06:19 11/12/18 06:19 11/12/18 05:14 11/12/18 05:14 - Medications Medications: Current Medications Acetaminophen (Tylenol 325mg Tab) 650 mg PO Q4H PRN PRN Reason: Pain, Mild (1-3) Last Admin: 11/12/18 05:53 Dose: 650 mg Albuterol/Ipratropium (Duoneb 3 Mg/0.5 Mg (3 Ml) Ud) 3 ml IH Q4H PRN PRN Reason: Shortness of Breath Last Admin: 11/12/18 08:19 Dose: 3 ml Albuterol/Ipratropium (Duoneb 3 Mg/0.5 Mg (3 Ml) Ud) 3 ml IH [id number] PRN PRN Reason: Shortness of Breath Aspirin (Ecotrin) 81 mg PO DAILY [facility] Atorvastatin Calcium (Lipitor) 20 mg PO DIN [facility] Carvedilol (Coreg) 12.5 mg PO BID [facility] Clopidogrel Bisulfate (Plavix) 75 mg PO DAILY [facility] Cyanocobalamin (Vitamin B12 100 Mcg Tab) 100 mcg PO DAILY [facility] Folic Acid (Folic Acid) 1 mg PO DAILY [facility] Home Med (Home Med) 2 unit IH BID [facility] Isosorbide Mononitrate (Imdur Er) 30 mg PO DAILY [facility] Methylprednisolone (Solu-Medrol) 40 mg IVP Q6 [facility] Montelukast Sodium (Singulair) 10 mg PO HS [facility] - Labs Labs: 11/12/18 04:23 11/12/18 04:23 PT 10.7 SECONDS (9.4-12.5) 11/12/18 04:23 INR 0.95 11/12/18 04:23 APTT 26.3 Seconds (26.9-38.3) L 11/12/18 04:23 - Constitutional Appears: No Acute Distress, Chronically Ill - Head Exam Head Exam: NORMAL INSPECTION, NORMOCEPHALIC - Eye Exam Eye Exam: Normal appearance - ENT Exam ENT Exam: Normal Exam - Respiratory Exam Respiratory Exam: Decreased Breath Sounds, Rhonchi - Cardiovascular Exam Cardiovascular Exam: +S1, +S2 - GI/Abdominal Exam GI & Abdominal Exam: Soft, Normal Bowel Sounds - Rectal Exam Rectal Exam: Deferred - Extremities Exam Extremities Exam: Full ROM, Normal Capillary Refill - Neurological Exam Neurological Exam: Alert, Awake Additional comments: WALLER - Skin Skin Exam: Dry, Intact Assessment and Plan - Assessment and Plan (Free Text) Plan: ITS Impressions Chest X-Ray 11/12/18 03:56 IMPRESSION: No active disease. A?P 63 yr old male with pmh sig for COPD, HTN, TIA, CAD with stents who presented with SOB and cough. Pt was found to have COPD exacerbation. Pt is now admitted with pulmonary consultation and evaluation on IV steroids. Will continue to follow clinical course.
[2018-11-12] MEDS: SYMBICORT IH SCH (10:16)
--- NOTE | 2018-11-12 13:16 | CARD ---
APPROVED REPORT Date of service: 11/12/2018 EKG Measurement Heart [id number] <Conclusion> Atrial flutter with 4:[address] depression, probably normal Abnormal ECG
[2018-11-12] MEDS: MethylPREDNISolone 40 mg Vial IVP SCH ×2 (13:24→18:08)
[2018-11-12] MEDS ORDERED: Sodium Chloride 0.9% 1,000 ML IV SCH (14:30)
--- NOTE | 2018-11-12 16:55 | CON ---
DATE: 11/12/2018 PULMONARY CONSULT NOTE REFERRING PHYSICIAN: La Calderon MD REASON FOR CONSULT: Cough, shortness of breath, and chronic lung disease. HISTORY OF PRESENT ILLNESS: This is a 63-year-old male with past medical history significant for chronic obstructive lung disease, coronary artery disease, history of CABG, multiple coronary stents, hypertension, recurrent TIAs, alcohol abuse, smoker, who was admitted to [facility] previously for COPD exacerbation. The patient signed himself out against medical advice yesterday. The patient presented to the emergency room on 11/12/2018, early this morning complaining of shortness of breath. The patient reported that he has been experiencing worsening shortness of breath and cough since he left against medical advice. The patient admits that while he was home, he was smoking tobacco and drinking alcohol. At this time, the patient seen lying in bed, reports having shortness of breath with exertion, has cough. No headache, rhinitis, chest pain, abdominal pain, nausea, vomiting, diarrhea or leg pain reported. PAST MEDICAL HISTORY: Extensive coronary artery disease, history of CABG, coronary stents, COPD, hypertension, alcohol abuse, history of seizure disorder, kidney stones, diabetes, GERD, gallstone, diverticulitis, bipolar disorder, panic disorder, and history of PTSD. FAMILY HISTORY: No significant cardiopulmonary disease reported. SOCIAL HISTORY: Smoker, positive alcohol abuse. Has used marijuana and cocaine in the past. ALLERGIES: EVE INHIBITORS, FISH, SHELLFISH AND SULFA. MEDICATIONS: Reviewed. Tylenol 650 every 4 hours p.r.n. mild pain, DuoNeb 3 mL inhalation every 6 hours p.r.n., aspirin 81 mg daily, Lipitor 20 mg at dinner, Coreg 12.5 mg twice a day, Librium 25 mg every 8 hours p.r.n., Plavix 75 mg daily, vitamin B 1200 mcg daily, folic acid 1 mg daily, isosorbide mononitrate 30 mg daily, magnesium oxide 400 mg twice a day, Solu-Medrol 40 mg every 6 hours, Singulair 10 mg at bedtime, and sodium chloride 1000 mL at 50 mL per hour. REVIEW OF SYSTEMS: No headache, rhinitis, chest pain, abdominal pain, nausea, vomiting, diarrhea, leg pain or leg swelling. Reports having shortness of breath with cough. PHYSICAL EXAMINATION VITAL SIGNS: Blood pressure 104/51, pulse 66, temperature 97.9, and oxygen saturation 95% on nasal cannula. GENERAL: No acute distress. HEENT: Moist mucous membranes. Crowded airway. NECK: Supple. No JVD. RESPIRATORY: Rhonchi bilaterally. CARDIOVASCULAR: S1 and S2. ABDOMEN: Soft and nontender. No distension. No organomegaly. EXTREMITIES: No bilateral lower extremity edema. NEUROLOGIC: Awake, alert, verbal, following commands. LABORATORY DATA: Reviewed. WBC .7, RBC 3.48, hemoglobin 10.7, hematocrit 32.1, and platelets 365. PT 10.7, INR 0.95, and APTT 26.3. Sodium 128, potassium 4.6, chloride 93, carbon dioxide 20, anion gap 12, BUN 20, creatinine 0.6, GFR greater than 60, random glucose 79, calcium 8.9, magnesium 2, total bilirubin 0.5. AST 72, ALT 50, alkaline phosphatase 60, lactate dehydrogenase 5.9, total creatinine kinase 100, troponin less than 0.01, proBNP 2070, total protein 6.5, albumin 3.9, globulin 2.7 and albumin-globulin ratio 1.5. Alcohol quantitative less than 10. Chest x-ray shows no active disease. EKG, atrial flutter. IMPRESSION AND PLAN: Chronic obstructive lung disease exacerbation, atrial flutter, coronary artery disease, history of coronary artery bypass surgery, history of coronary stents, hypertension, diabetes, history of seizure disorder, bipolar disorder, depression and alcohol abuse history. Continue steroids. We will place the patient on Brovana and Pulmicort inhaled bronchodilators. We will place the patient on Protonix for gastric prophylaxis. We will place the patient on Lovenox for deep venous thrombosis prophylaxis. Continue leukotriene inhibitors. Continue steroid dosing. We will give nicotine patch for smoking cessation. We will add Zithromax 500 mg daily for chronic obstructive pulmonary disease exacerbation. We will place the patient on thiamine 200 mg daily, fall precaution. Recommend this patient have full pulmonary function test as outpatient. Recommend the patient have sleep study as outpatient for suspected sleep apnea syndrome. The patient was seen and examined with Dr. Finch. Discussed assessment and plan as described above. The patient was seen and examined with Rolando Castelan, nurse practitioner. Discussed assessment and plan as described above. Thank you for this consult. We will follow with you. Rolando Castelan APN Flor Finch MD [facility] # [id number]
[2018-11-12] MEDS: Magnesium Oxide 400 mg Tab UD PO SCH (18:08)
[2018-11-12 18:36] LABS: AMYLASE 115 U/L (35-125); LIPASE 205 U/L (23-300)
[2018-11-12] MEDS: Pantoprazole 40 mg EC Tab PO SCH (22:16)
--- NOTE | 2018-11-13 01:34 | HP ---
DATE OF EXAM: 11/12/2018 The patient seen and examined at the bedside on 11/12/2018. CHIEF COMPLAINT: Shortness of breath. HISTORY OF PRESENT ILLNESS: Mr. Chico Alexandra is a 63-year-old male with past medical history of hypertension, COPD, TIA, coronary artery disease with cardiac stent, history of CABG, history of ethanol abuse, tobacco abuse, after he was brought to the emergency room by the EMS complaining of shortness of breath. The patient actually left against medical advice yesterday from [facility] after clearance from the psychiatrist. Senior Lead Java Developer was on the case, now became second day with the shortness of breath. When I saw the patient, he had tremors. As per the patient, he went home, had alcohol, then came back with alcoholic tremors and shortness of breath. The patient admits to smoking tobacco and drinking alcohol at home, denies any fevers or chills. No nausea, vomiting or diarrhea. No back pain. No headache or dizziness. PAST MEDICAL HISTORY: As above. History of [place], hypotension, COPD, dizziness, migraine, seizures, TIA, kidney stones, diabetes mellitus, arthritis, GERD, dyspepsia, panic attacks, post traumatic stress disorder, recent heroin and marijuana abuse. FAMILY HISTORY: Father and mother noncontributory. HABITS: Smoking decatizer than 10 cigarettes per day, alcohol yes. Substance abuse yes; heroin, marijuana and cocaine. ALLERGIES: THE PATIENT IS ALLERGIC WITH EVE INHIBITORS, FISH, SHELLFISH, SULFA ANTIBIOTICS. HOME MEDICATIONS: Folic acid, cyanocobalamin and the patient do not remember. REVIEW OF SYSTEMS: The patient was seen and examined at the bedside in his room, still having tremors. I started Librium protocol. Has coughing and heavy shortness of breath. No headache, no dizziness. No fever, no chills. No hematuria or hematochezia. PHYSICAL EXAMINATION VITAL SIGNS: Temperature 97.9, pulse 56, blood pressure 104/51, respiratory rate 18. HEENT: Head; normocephalic, atraumatic. Eyes; PERRLA. Extraocular muscles intact. Conjunctiva clear. Nose patent. Mucous membranes moist. NECK: Supple. No carotid bruit, no JVD, no thyromegaly. CHEST: Bilaterally symmetrical. HEART: S1, S2 positive. LUNGS: Positive wheezing bilaterally. ABDOMEN: Soft, bowel sounds positive. No organomegaly. EXTREMITIES: No edema, no cyanosis, but upper extremities have tremors. NEUROLOGIC: The patient is awake, alert, follows simple commands. LABORATORY DATA: White blood cells 10.7, hemoglobin 10.7, hematocrit 32.1, platelets 355. Sodium 128, potassium 4.6, BUN 20, creatinine 0.6, glucose 135, AST 72. ASSESSMENT AND PLAN: Mr. Chico Alexandra is a 63-year-old male with anemia, hyponatremia, hypochloremia, hyperglycemia, abnormal liver function test, congestive heart failure, BNP is high, alcohol quantification is less than 10 today. Maybe yesterday it was high. The patient came with shortness of breath, looks like going through alcohol withdrawals. We admitted the patient, did electrocardiogram, chest x-ray, started Librium drip. Put on blood pressure medicines. The patient has history of hypertension, chronic obstructive pulmonary disease, transient ischemic attack, coronary artery disease with cardiac stenting, coronary artery bypass graft, alcohol abuse, tobacco abuse, drug abuse. Pulmonary is on the case. There is history of dizziness, migraine, seizures, transient attack, history of cataract surgery, renal stones, diabetes mellitus, anemia, arthritis, diverticulitis, cholelithiasis, gastroesophageal reflux disease, dyspepsia, anxiety, bipolar, panic attack, stress disorders, suicide attempt last admission. Gastrointestinal and deep venous thrombosis prophylaxis. Discussion done with Dr. Finch and nurse practitioner and the patient's nurse. Repeat labs. We will follow up. La Calderon MD MTDD
[2018-11-13] MEDS: MethylPREDNISolone 40 mg Vial IVP SCH ×4 (01:42→17:25)
--- NOTE | 2018-11-13 04:51 | CON ---
DATE: 11/12/2018 CONSULT SERVICE: Cardiology. REASON FOR CONSULTATION: Cardiac evaluation, admitted with atrial flutter, and history of coronary artery disease. BRIEF CLINICAL HISTORY: This is a 63-year-old male with active tobacco abuse, active alcohol abuse, history of coronary artery disease, history of CABG, history of PTCA, came in with acute alcoholic intoxication, came in after having alcohol abuse, though the patient does not appear to be intoxicated, but complain of shortness of breath and exacerbation of COPD, found to be in atrial flutter with rate controlled between 55 to 60. Denies any chest pain. Denies any shortness of breath. Denies any palpitation. PAST MEDICAL HISTORY: Significant for psychiatric disorder, COPD, coronary artery bypass surgery, and history of PTCA in the past. Multiple admissions with acute alcoholic toxication, paroxysmal atrial fibrillation. SOCIAL HISTORY: Active tobacco abuse, active alcohol abuse. RECENT CARDIAC WORKUP: The patient had a history of COPD, history of recent bare-metal stent was done, lives in patient in [facility]; history of coronary artery bypass surgery in 2005, status post ABG to ramus, PTCA was done last admission 08/06/2017, bare-metal stent was done because the patient is very noncompliance. At that time, the cardiac catheterization revealed triple vessel disease, patent BALLARD to LAD, patent SVG to RCA, but at anastomotic site, 95% stenosis noted, SVG to OM-1 patent, SVG to RCA was patent, ejection fraction 55%. The patient had been subsequently bare-metal stent SVG to RCA on 04/06/2018. Echo on 04/04/2018, ejection fraction normal ventricular septal aneurysm, mild pulmonary hypertension noted. CAT dated again 04/04/2018, revealed negative triple vessel disease, patent BALLARD to LAD, patent SVG to ramus, but at the anastomotic site 95% stenosis noted. Patent SVG to OM-1, patent SVG to RCA, successful PTCA of SVG to ramus intermedius was done dated 04/06/2018. Last echo dated 04/04/2018, preserved LV function, ejection fraction calculated found to be 66% and RV systolic pressure 39. The patient has a history of CABG as mentioned before. CURRENT MEDICATIONS: The patient supposed to take prednisone, Singulair, folic acid, carvedilol, and aspirin. REVIEW OF SYSTEMS: As per HPI. ALLERGIES: ALLERGY TO EVE INHIBITORS, ALLERGY TO FISH, ALLERGY TO SHELLFISH, AND ALLERGY TO SULFA DRUGS. PHYSICAL EXAMINATION: VITAL SIGNS: Temperature afebrile, heart rate 74, and blood pressure 109/53. HEENT: PERRLA. Extraocular muscles intact. NECK: Supple. No carotid bruits or thyromegaly. CHEST: Clear to auscultation. HEART: S1 and S2 regular. ABDOMEN: Soft. EXTREMITIES: Clubbing and cyanosis negative. LABORATORY DATA: Blood workup as follows; WBC 10.7, hemoglobin 10.7, hematocrit 32.1, and platelet count 365. Chemistry shows sodium 128, potassium 4.6, chloride 93, carbon dioxide 28, anion gap of 12, BUN 20, and creatinine 0.6. BNP 2070. Troponin 0.01 negative. Chest x-ray shows essentially no evidence of CHF, prominent pulmonary artery noted. EKG showed atrial flutter with 4:1 conduction. IMPRESSION: A 63-year-old male with past medical history significant for coronary artery disease, status post coronary artery bypass graft, status post multiple stents, admitted with chronic obstructive pulmonary disease exacerbation as well as after having alcohol abuse, atrial fibrillation and flutter. Prior to that, the patient was in normal sinus in the past, now the patient came in with atrial fibrillation and flutter. No evidence of chest pain. No evidence of acute ischemia. The patient goes into atrial fibrillation and flutter in the previous admission 10/28/2018, the patient has also flutter. RECOMMENDATIONS: We will resume all medication baseline and then start low dose of Eliquis, but long-term anticoagulation the patient sometime admitted with acute alcoholic intoxication. We will give interim Lovenox and follow with you. We will discuss with Dr. Calderon. Thank you Dr. Calderon for providing us the opportunity in taking care of the patient, Chico Alexandra. Flor Verdin MD
[2018-11-13 07:50] LABS: HEMOGLOBIN 12.4 g/dL (14.0-18.0); MEAN CELL VOLUME 92.9 fl (80.0-105.0); MEAN CORPUSCULAR HEMOGLOBIN 31.4 pg (25.0-35.0); MEAN CORPUSCULAR HGB CONC 33.8 g/dl (31.0-37.0); MEAN PLATELET VOLUME 8.9 fl (7.0-11.0); RBC 3.95 10^6/uL (3.5-6.1); RED CELL DISTRIBUTION WIDTH 16.8 % (11.5-14.5)
[2018-11-13 08:04] LABS: BLOOD UREA NITROGEN 23 mg/dL (7-21); GFR NON-AFRICAN AMERICAN > 60; HDL CHOLESTEROL 99 mg/dL (29-60)
[2018-11-13 08:14] LABS: LDL CHOLESTEROL 64 mg/dL (0-129)
[2018-11-13] MEDS: Budesonide 0.5 mg/2 ml Inhal Susp UD IH SCH ×2 (08:41→19:19)
[2018-11-13] MEDS: Arformoterol 15 mcg/2 ml Inh Sol IH SCH ×2 (08:41→19:20)
[2018-11-13] MEDS: Magnesium Oxide 400 mg Tab UD PO SCH ×2 (10:20→17:33)
[2018-11-13] MEDS: Enoxaparin 40 mg Syringe SC SCH (10:23)
[2018-11-13] MEDS: SYMBICORT IH SCH ×3 (10:24→19:50)
--- NOTE | 2018-11-13 11:08 | CP.PCM.PN ---
Subjective - Date & Time of Evaluation Date of Evaluation: 11/13/18 Time of Evaluation: 06:43 - Subjective Subjective: Awake, alert, no distress Reason for consultation and follow up: Cardiac evaluation and follow up of atrial fibrillation, history of atrial fibrillation, coronary artery disease post CABG, admitted for exacerbation of COPD Seen and examined by me and Dr. Verdin Objective - Vital Signs/Intake and Output Vital Signs (last 24 hours): Temp Pulse Resp BP Pulse Ox 97.5 F L 72 20 119/68 100 11/13/18 06:00 11/13/18 10:24 11/13/18 06:00 11/13/18 10:24 11/13/18 06:00 Intake and Output: 11/13/18 11/13/18 06:59 18:59 Intake Total 240 Balance 240 - Medications Medications: Current Medications Acetaminophen (Tylenol 325mg Tab) 650 mg PO Q4H PRN PRN Reason: Pain, Mild (1-3) Last Admin: 11/13/18 10:23 Dose: 650 mg Albuterol/Ipratropium (Duoneb 3 Mg/0.5 Mg (3 Ml) Ud) 3 ml IH [id number] PRN PRN Reason: Shortness of Breath Apixaban (Eliquis) 5 mg PO BID [facility]; Protocol Last Admin: 11/13/18 10:21 Dose: 5 mg Arformoterol Tartrate (Brovana) 15 mcg IH [id number] [facility] Last Admin: 11/13/18 08:41 Dose: 15 mcg Aspirin (Ecotrin) 81 mg PO DAILY [facility] Last Admin: 11/13/18 10:22 Dose: 81 mg Atorvastatin Calcium (Lipitor) 20 mg PO DIN [facility] Last Admin: 11/12/18 18:09 Dose: 20 mg Azithromycin (Zithromax) 500 mg PO DAILY [facility]; Protocol Last Admin: 11/13/18 10:21 Dose: 500 mg Budesonide (Pulmicort Respules) 0.5 mg IH [id number] [facility] Last Admin: 11/13/18 08:41 Dose: 0.5 mg Carvedilol (Coreg) 12.5 mg PO BID [facility] Last Admin: 11/13/18 10:24 Dose: 12.5 mg Chlordiazepoxide (Librium) 25 mg PO Q8 PRN; Protocol PRN Reason: Other Last Admin: 11/13/18 10:19 Dose: 25 mg Clopidogrel Bisulfate (Plavix) 75 mg PO DAILY [facility] Last Admin: 11/13/18 10:22 Dose: 75 mg Cyanocobalamin (Vitamin B12 100 Mcg Tab) 100 mcg PO DAILY [facility] Last Admin: 11/12/18 10:13 Dose: 100 mcg Enoxaparin Sodium (Lovenox) 40 mg SC DAILY [facility]; Protocol Last Admin: 11/13/18 10:23 Dose: 40 mg Folic Acid (Folic Acid) 1 mg PO DAILY [facility] Last Admin: 11/13/18 10:22 Dose: 1 mg Home Med (Home Med) 2 unit IH BID [facility] Last Admin: 11/13/18 10:24 Dose: Not Given Isosorbide Mononitrate (Imdur Er) 30 mg PO DAILY [facility] Last Admin: 11/13/18 10:22 Dose: 30 mg Magnesium Oxide (Mag-Ox) 400 mg PO BID [facility] Last Admin: 11/13/18 10:20 Dose: 400 mg Methylprednisolone (Solu-Medrol) 40 mg IVP Q6 [facility] Last Admin: 11/13/18 06:33 Dose: 40 mg Montelukast Sodium (Singulair) 10 mg PO HS [facility] Last Admin: 11/12/18 22:15 Dose: 10 mg Nicotine (Nicoderm Cq) 1 patch TD DAILY [facility] Pantoprazole Sodium (Protonix Ec Tab) 40 mg PO HS [facility] Last Admin: 11/12/18 22:16 Dose: 40 mg Thiamine HCl (Vitamin B1 Tab) 200 mg PO DAILY [facility] Last Admin: 11/13/18 10:23 Dose: 200 mg - Labs Labs: 11/13/18 07:30 11/13/18 07:30 PT 10.7 SECONDS (9.4-12.5) 11/12/18 04:23 INR 0.95 11/12/18 04:23 APTT 26.3 Seconds (26.9-38.3) L 11/12/18 04:23 - Constitutional Appears: Non-toxic, No Acute Distress - Head Exam Head Exam: NORMAL INSPECTION, NORMOCEPHALIC - Eye Exam Eye Exam: Normal appearance Pupil Exam: NORMAL ACCOMODATION - ENT Exam ENT Exam: Mucous Membranes Moist, Normal Exam - Neck Exam Neck Exam: Full ROM, Normal Inspection - Respiratory Exam Respiratory Exam: Decreased Breath Sounds, NORMAL BREATHING PATTERN - Cardiovascular Exam Cardiovascular Exam: Irregular Rhythm, +S1, +S2 Additional comments: Atrial fibrillation/ flutter - GI/Abdominal Exam GI & Abdominal Exam: Soft, Normal Bowel Sounds - Extremities Exam Extremities Exam: Full ROM, Normal Capillary Refill - Neurological Exam Neurological Exam: Alert, Awake, Oriented x3 - Psychiatric Exam Psychiatric exam: Normal Affect, Normal Mood - Skin Skin Exam: Dry, Normal Color, Warm Assessment and Plan - Assessment and Plan (Free Text) Assessment: A 63 year old male who came in to the ER due to worsening shortness of breath and cough. He was just recently discharged for exacerbation of COPD. History of anemia,dizziness, arthritis,GERD, diverticulitis, cholelithiasis, dyspepsia, suicidal ideation/attempt,bipolar disorder, panic attack disorder, anxiety, seizures, renal stones,diabetes, hypertension, COPD, TIA, coronary artery disease with stents, post CABG (2006) alcohol abuse, and tobacco abuse,history of illicit drug use, denies recent use of illicit drugs. Cardiac cath done on 04/04/18 showed hoh triple vessel disease, patent bLIMA to LAD, patent SVG to ramus but at anastomosis site 95 5 stenosis, patent SVG to OM1, patent SVG to RCA, LVEF 55%, successful PTCA with APURVA of SVG to ramus intermedius. 04/04/18 echo showed normal LVEF, mild pulmonary hypertension. Patient had atrial fibrillation and atrial flutter from previous admissions treated medically and converted to normal sinus rhythm. Recurrent atrial fibrillation and atrial flutter. Controlled rate. started on anticoagulation. Plan: Denies shortness of breath, feels okay Atrial fibrillation controlled Blood pressure controlled Continue Eliquis On Eliquis 5 mg BID, ASA 81 mg daily,Coreg 12.5 mg BID Plavix 75 mg daily,Imdur 30 mg daily,Solumedrol IV 40 mg every 6 hours Nicoderm patch daily Continue current treatment Continue current medications Alcohol withdrawal precaution Will follow up Plan and treatment discussed with Dr. Verdin
--- NOTE | 2018-11-13 12:39 | PN ---
DATE: 11/13/2018 PULMONARY PROGRESS NOTE REFERRING PHYSICIAN: La Calderon MD SUBJECTIVE: The patient is seen sitting up in bed in no acute distress. No overnight events reported. Reports that he still has cough, some shortness of breath with exertion. No headache, rhinitis, chest pain, abdominal pain, nausea, vomiting, diarrhea, leg pain or leg swelling reported. OBJECTIVE: GENERAL: No acute distress. VITAL SIGNS: Blood pressure 119/68, pulse 72, temperature 97.5, oxygen saturation 100 on room air. HEENT: Moist mucous membranes. Crowded airway. NECK: Supple. No JVD. RESPIRATORY: Rhonchi bilaterally. CARDIOVASCULAR: S1 and S2. ABDOMEN: Soft and nontender. No distention. No organomegaly. EXTREMITIES: No bilateral lower extremity edema. NEUROLOGIC: Awake, alert and verbal. Following commands. MEDICATIONS: Reviewed. Tylenol 650 every 4 hours p.r.n. mild pain, DuoNeb 3 mL inhalation every 6 hours p.r.n., Eliquis 5 mg twice a day, Brovana 15 mcg inhalation every 12 hours, aspirin 81 mg daily, Lipitor 20 mg at dinner, Zithromax 500 mg daily, Pulmicort 0.5 mg inhalation every 12 hours, Coreg 12.5 mg twice a day, Librium 25 mg every 8 hours p.r.n., Plavix 75 mg daily, vitamin B12 100 mcg daily, Lovenox 40 mg subcu daily, folic acid 1 mg daily, Imdur 30 mg daily, magnesium oxide 400 mg twice a day, Solu-Medrol 40 mg IV push every 6 hours, Singulair 10 mg h.s., nicotine patch transdermal daily, Protonix 40 mg at h.s., thiamine 200 mg daily. LABORATORY DATA: Reviewed. WBC 6, RBC 3.95, hemoglobin 12.4, hematocrit 36.7, platelets 362. Sodium 127, potassium 4.9, chloride 90, carbon dioxide 27, anion gap 15, BUN 23, creatinine 0.5, GFR is greater than 60, POC glucose 110, random glucose 100, hemoglobin A1c 5.8, calcium 9, phosphorus 3.5, magnesium 1.9, triglycerides 69, cholesterol 170, LDL cholesterol is 64, HDL cholesterol is 99, TSH 4.99. Blood cultures preliminary, no growth after 24 hours. IMPRESSION AND PLAN: Chronic obstructive lung disease investigation, atrial flutter, coronary artery disease, history of coronary artery bypass surgery, history of coronary stents, diabetes mellitus, hypertension, history of seizure disorder, bipolar disorder, depression, alcohol abuse history. Pulmonary point of view, continue inhaled bronchodilators. Continue steroids. Continue gastric prophylaxis, deep venous thrombosis prophylaxis. Continue leukotriene inhibitors, nicotine patch. Continue antibiotic therapy for chronic obstructive pulmonary disease exacerbation. Fall precautions, seizure precautions, recommend the patient have sleep study as outpatient for suspected sleep apnea syndrome. Recommend the patient have pulmonary function tests as outpatient to evaluate extensive chronic lung disease. The patient was seen and examined with Dr. Finch. Discussed assessment and plan as described above. The patient was seen and examined with Rolando Castelan, nurse practitioner. Discussed assessment and plan as described above. Thank you for this consult. We will follow with you. Rolando Castelan APN Flor Finch MD
[2018-11-13] MEDS: Albuterol-Ipratrop 3 mg / 0.5 (3 ml) UD IH PRN (19:20)
[2018-11-13] MEDS: Pantoprazole 40 mg EC Tab PO SCH (21:23)
[2018-11-13] MEDS: Haloperidol Lactate 2 mg/ml Liquid PO PRN (21:32)
[2018-11-14] MEDS: MethylPREDNISolone 40 mg Vial IVP SCH ×4 (01:36→21:12)
[2018-11-14] MEDS: Arformoterol 15 mcg/2 ml Inh Sol IH SCH ×2 (07:22→20:21)
[2018-11-14] MEDS: Budesonide 0.5 mg/2 ml Inhal Susp UD IH SCH ×2 (07:23→20:21)
--- NOTE | 2018-11-14 07:45 | CP.PCM.PN ---
Subjective - Date & Time of Evaluation Date of Evaluation: 11/14/18 Time of Evaluation: 06:33 - Subjective Subjective: Awake, alert, no distress, lying in bed Reason for consultation and follow up: Cardiac evaluation and follow up of atrial fibrillation, history of atrial fibrillation, coronary artery disease post CABG, admitted for exacerbation of COPD Seen and examined by me and Dr. Verdin Objective - Vital Signs/Intake and Output Vital Signs (last 24 hours): Temp Pulse Resp BP Pulse Ox 98.0 F 56 L 20 100/58 L 100 11/14/18 06:00 11/14/18 06:00 11/14/18 06:00 11/14/18 06:00 11/13/18 06:00 Intake and Output: 11/14/18 11/14/18 06:59 18:59 Intake Total 1460 800 Output Total 800 Balance 1460 0 - Medications Medications: Current Medications Acetaminophen (Tylenol 325mg Tab) 650 mg PO Q4H PRN PRN Reason: Pain, Mild (1-3) Last Admin: 11/13/18 17:28 Dose: 650 mg Albuterol/Ipratropium (Duoneb 3 Mg/0.5 Mg (3 Ml) Ud) 3 ml IH [id number] PRN PRN Reason: Shortness of Breath Last Admin: 11/13/18 19:20 Dose: 3 ml Apixaban (Eliquis) 5 mg PO BID [facility]; Protocol Last Admin: 11/13/18 17:32 Dose: 5 mg Arformoterol Tartrate (Brovana) 15 mcg IH [id number] [facility] Last Admin: 11/14/18 07:22 Dose: 15 mcg Aspirin (Ecotrin) 81 mg PO DAILY [facility] Last Admin: 11/13/18 10:22 Dose: 81 mg Atorvastatin Calcium (Lipitor) 20 mg PO DIN [facility] Last Admin: 11/13/18 17:32 Dose: 20 mg Azithromycin (Zithromax) 500 mg PO DAILY [facility]; Protocol Last Admin: 11/13/18 10:21 Dose: 500 mg Budesonide (Pulmicort Respules) 0.5 mg IH [id number] [facility] Last Admin: 11/14/18 07:23 Dose: 0.5 mg Carvedilol (Coreg) 12.5 mg PO BID [facility] Last Admin: 11/13/18 17:32 Dose: 12.5 mg Chlordiazepoxide (Librium) 25 mg PO Q8 PRN; Protocol PRN Reason: Other Last Admin: 11/13/18 17:32 Dose: 25 mg Clopidogrel Bisulfate (Plavix) 75 mg PO DAILY [facility] Last Admin: 11/13/18 10:22 Dose: 75 mg Cyanocobalamin (Vitamin B12 100 Mcg Tab) 100 mcg PO DAILY [facility] Last Admin: 11/13/18 13:47 Dose: 100 mcg Enoxaparin Sodium (Lovenox) 40 mg SC DAILY [facility]; Protocol Last Admin: 11/13/18 10:23 Dose: 40 mg Folic Acid (Folic Acid) 1 mg PO DAILY [facility] Last Admin: 11/13/18 10:22 Dose: 1 mg Haloperidol Lactate (Haldol) 2 mg PO Q6 PRN; Protocol PRN Reason: Agitation Last Admin: 11/13/18 21:32 Dose: 2 mg Home Med (Home Med) 2 unit IH BID [facility] Last Admin: 11/13/18 19:50 Dose: Not Given Isosorbide Mononitrate (Imdur Er) 30 mg PO DAILY [facility] Last Admin: 11/13/18 10:22 Dose: 30 mg Lorazepam (Ativan) 1 mg PO Q6 PRN; Protocol PRN Reason: Agitation Last Admin: 11/13/18 21:22 Dose: 1 mg Magnesium Oxide (Mag-Ox) 400 mg PO BID [facility] Last Admin: 11/13/18 17:33 Dose: 400 mg Methylprednisolone (Solu-Medrol) 40 mg IVP Q6 [facility] Last Admin: 11/14/18 05:35 Dose: 40 mg Montelukast Sodium (Singulair) 10 mg PO HS [facility] Last Admin: 11/14/18 01:36 Dose: 10 mg Nicotine (Nicoderm Cq) 1 patch TD DAILY [facility] Last Admin: 11/13/18 13:30 Dose: Not Given Pantoprazole Sodium (Protonix Ec Tab) 40 mg PO HS [facility] Last Admin: 11/13/18 21:23 Dose: 40 mg Quetiapine Fumarate (Seroquel) 12.5 mg PO TID [facility]; Protocol Last Admin: 11/13/18 17:33 Dose: 12.5 mg Quetiapine Fumarate (Seroquel) 50 mg PO HS [facility]; Protocol Last Admin: 11/13/18 21:23 Dose: 50 mg Thiamine HCl (Vitamin B1 Tab) 200 mg PO DAILY [facility] Last Admin: 11/13/18 10:23 Dose: 200 mg - Labs Labs: 11/13/18 07:30 11/13/18 07:30 PT 10.7 SECONDS (9.4-12.5) 11/12/18 04:23 INR 0.95 11/12/18 04:23 APTT 26.3 Seconds (26.9-38.3) L 11/12/18 04:23 - Constitutional Appears: Non-toxic, No Acute Distress - Head Exam Head Exam: NORMAL INSPECTION, NORMOCEPHALIC - Eye Exam Eye Exam: Normal appearance Pupil Exam: NORMAL ACCOMODATION - ENT Exam ENT Exam: Mucous Membranes Moist, Normal Exam - Respiratory Exam Respiratory Exam: Decreased Breath Sounds, Rhonchi, NORMAL BREATHING PATTERN - Cardiovascular Exam Cardiovascular Exam: Irregular Rhythm, +S1, +S2 Additional comments: Aflutter 50's controlled - GI/Abdominal Exam GI & Abdominal Exam: Soft, Normal Bowel Sounds - Extremities Exam Extremities Exam: Full ROM, Normal Capillary Refill - Neurological Exam Neurological Exam: Alert, Awake, Oriented x3 - Psychiatric Exam Psychiatric exam: Normal Affect, Normal Mood - Skin Skin Exam: Dry, Normal Color Assessment and Plan - Assessment and Plan (Free Text) Assessment: A 63 year old male who came in to the ER due to worsening shortness of breath and cough. He was just recently discharged for exacerbation of COPD. History of anemia,dizziness, arthritis,GERD, diverticulitis, cholelithiasis, dyspepsia, suicidal ideation/attempt,bipolar disorder, panic attack disorder, anxiety, seizures, renal stones,diabetes, hypertension, COPD, TIA, coronary artery disease with stents, post CABG (2006) alcohol abuse, and tobacco abuse,history of illicit drug use, denies recent use of illicit drugs. Cardiac cath done on 04/04/18 showed squaxin triple vessel disease, patent bLIMA to LAD, patent SVG to ramus but at anastomosis site 95 5 stenosis, patent SVG to OM1, patent SVG to RCA, LVEF 55%, successful PTCA with APURVA of SVG to ramus intermedius. 04/04/18 echo showed normal LVEF, mild pulmonary hypertension. Patient had atrial fibrillation and atrial flutter from previous admissions treated medically and converted to normal sinus rhythm. Recurrent atrial fibrillation and atrial flutter. Controlled rate. On Eliquis for anticoagulation. Cardiac status stable. Will discontinue telemetry. Plan: Denies shortness of breath, feels okay Atrial fibrillation/flutter rate controlled Blood pressure controlled Cardiac status stable On Eliquis 5 mg BID, ASA 81 mg daily,Coreg 12.5 mg BID Plavix 75 mg daily,Imdur 30 mg daily,Solumedrol IV 40 mg every 6 hours Nicoderm patch daily, Lipitor 20 mg daily, Continue current treatment Continue current medications Alcohol withdrawal precaution Discontinue telemetry Discharge planning Will follow up Plan and treatment discussed with Dr. Verdin
--- NOTE | 2018-11-14 12:05 | PN ---
DATE: 11/14/2018 REFERRING PHYSICIAN: La Calderon MD SUBJECTIVE: The patient is seen sitting up in bed, in no acute distress at this time. The patient reports that he still has cough, still has some shortness of breath with exertion which has improved slightly. No headache, rhinitis, chest pain, abdominal pain, nausea, vomiting, diarrhea, leg pain or leg swelling reported. OBJECTIVE: VITAL SIGNS: Blood pressure 100/58, pulse 66, temperature 98. GENERAL: No acute distress. HEENT: Moist mucous membranes. Crowded airway. NECK: Supple. No JVD. RESPIRATORY: Rhonchi bilaterally. CARDIOVASCULAR: S1 and S2. ABDOMEN: Soft and nontender. No distention. No organomegaly. EXTREMITIES: No bilateral lower extremity edema. NEUROLOGIC: Awake, alert and verbal. Following commands. MEDICATIONS: Reviewed. Tylenol 650 every 4 hours p.r.n. mild pain, DuoNeb 3 mL inhalation every 6 hours p.r.n., Eliquis 5 mg twice a day, Brovana 15 mcg inhalation every 12 hours, aspirin 81 mg daily, Lipitor 20 mg at dinner, Zithromax 500 mg daily, Pulmicort 0.5 mg inhalation every 12 hours, Coreg 12.5 mg twice a day, Librium 25 mg every 8 hours p.r.n., Plavix 75 mg daily, vitamin B12 of 100 mcg daily, Lovenox 40 mg subcutaneous daily, folic acid 1 mg daily, Haldol 20 mg every 6 hours p.r.n., isosorbide mononitrate 30 mg daily, Ativan 1 mg every 6 hours p.r.n., magnesium oxide 400 mg twice a day, Solu-Medrol 40 mg IV push every 6 hours, Singulair 10 mg at bedtime, Nicoderm patch transdermal daily, Protonix 40 mg at bedtime, Seroquel 12.5 mg three times a day, Seroquel 50 mg at bedtime, vitamin B1 of 200 mg daily. LABORATORY DATA: Reviewed. POC glucose 128. Blood cultures preliminary, no growth after 48 hours. IMPRESSION AND PLAN: Chronic obstructive lung disease exacerbation, atrial flutter, coronary artery disease, history of coronary artery bypass surgery, history of coronary stents, hypertension, diabetes mellitus, history of seizure disorder, bipolar disorder, depression, alcohol abuse history. Pulmonary point of view, continue inhaled bronchodilators. Continue gastric prophylaxis, deep venous thrombosis prophylaxis. Continue nicotine patch, leukotriene inhibitors, and antibiotic therapy for chronic obstructive pulmonary disease exacerbation. Seizure precautions, fall precautions. We suspect sleep apnea in this patient, recommend the patient to have sleep study as outpatient. Recommend the patient have full pulmonary function tests as outpatient to evaluate extent of chronic lung disease. Spoke to the patient this morning regarding chest physiotherapy and he reports that he will allow therapist to perform chest physiotherapy. We will order chest physiotherapy on this patient. We will order incentive spirometry on this patient. We will decrease Solu-Medrol to 40 mg every 8 hours. Recommend physical therapy for this patient. Out of bed to chair. The patient was seen and examined with Dr. Finch. Discussed assessment and plan as described above. The patient was seen and examined with Rolando Castelan, nurse practitioner. Discussed assessment and plan as described above. Thank you for this consult. We will follow with you. Rolando Castelan APN Flor Finch MD
[2018-11-14] MEDS: Magnesium Oxide 400 mg Tab UD PO SCH ×2 (12:09→17:42)
[2018-11-14] MEDS: SYMBICORT IH SCH ×2 (12:11→17:36)
[2018-11-14] MEDS: Enoxaparin 40 mg Syringe SC SCH ×2 (12:11→12:17)
--- NOTE | 2018-11-14 12:21 | PN ---
DATE: 11/14/2018 SUBJECTIVE: The patient was seen and examined at bedside 11/14/2018. This progress note is 11/14/2018. The patient states suffering with wheezing and shortness of breath. No headache, no dizziness, no chest pain, no palpitation. PHYSICAL EXAMINATION: VITAL SIGNS: Temperature 98, pulse 56, respirations 20, blood pressure . HEENT: Head is normocephalic and atraumatic. Eyes; PERRLA. Extraocular muscles intact. Conjunctiva clear. Nose patent. Mucous membrane moist. NECK: Supple. No carotid bruits. No JVD or thyromegaly. CHEST: Bilaterally symmetrical. HEART: S1 and S2, positive. LUNGS: Clear to auscultation. ABDOMEN: Soft. Bowel sounds present. No organomegaly. EXTREMITIES: No edema. No cyanosis. NEUROLOGIC: The patient is awake and alert. Moving all four extremities. No focal deficits. MEDICATIONS: Tylenol, DuoNeb, Eliquis, Brovana, Lipitor, Zithromax, Pulmicort, Librium, Proscar, Plavix, B12, Lovenox, Haldol, and Imdur. LABORATORY DATA: White blood cell 6.0, hemoglobin 12.7, hematocrit 36.7 and platelet 362. Sodium 127, potassium 4.9, BUN 23, creatinine 0.5, and glucose 100. ASSESSMENT AND PLAN: Mr. Nasrin Golden is 63-year-old male with anemia, renal insufficiency, hypochloremia, came with observation of chronic obstructive pulmonary disease, history of arthritis, gastroesophageal reflux disease, diverticulitis, cholelithiasis and dyspepsia. Last admission, he has history of suicidal ideation even attempt, bipolar, panic attack, anxiety, diabetes, hypertension, transient ischemia attack, coronary artery disease with stents, alcohol use. The patient has history of atrial fibrillation and history of flutter from previous admission, treated medically and converted to normal sinus rhythm as per Cardiology, recurrent atrial fibrillation and history of flutter with controlled rate on Eliquis for anticoagulation. The patient is getting Solu-Medrol and bronchodilator, out of bed physical therapy appreciated. Cardiology and Pulmonary input and repeat labs. We will followup. La Calderon MD [facility] # [id number] SH[place]NA
[2018-11-14] MEDS: Albuterol-Ipratrop 3 mg / 0.5 (3 ml) UD IH PRN (14:28)
[2018-11-14] MEDS: Pantoprazole 40 mg EC Tab PO SCH (21:11)
--- NOTE | 2018-11-15 02:01 | CON ---
DATE: 11/14/2018 HISTORY OF PRESENT ILLNESS: The patient was seen at bedside again today. I reviewed staff notes which indicated that the patient had a Code Kaufman yesterday due to another tantrum, this was related to not being able to use a knife to cut his chicken. Seroquel was recently restarted once he arrived on the unit again. He has been tolerating his medication well and as usual he is calm and cooperative during my conversation with him in the morning. He wants to get better, expresses his appreciation for the medical team and some remorse for acting out as he becomes grumpy and dwyer in the evening time. Patient reports he will try harder not to be unnecessarily mean or impatient with staff members when I request the patient's cooperation and understanding. He is not hallucinating. He is not acutely delusional. Yes, he is still upset about his friend passing away; however, he is not depressed or suicidal about it. He is future oriented. Does not appear to be very motivated to address his alcohol usage. Regardless, there is no acute disorganization or a psychotic process occurring at this time. MEDICATIONS: Include Seroquel 12.5 mg t.i.d. and Seroquel 50 mg at bedtime, Ativan 1 mg every 6 hours p.r.n., and Librium 25 mg every 8 hours p.r.n. IMPRESSION: Alcohol use disorder. Substance-induced mood disorder. Rule out contribution of delirium. Rule out contribution of alcohol related dementia. Mainly withdrawals. Patient is grieving. He has mood disorder, not otherwise specified as well. RECOMMENDATIONS: At this time, I will continue medications as they are as it is too early to know if the medication doses would be effective for patient's mood and impulse control. Psychiatry will continue to follow with patient, monitor his progress, his behaviors, and advise accordingly. Patient is not considered to be an acute danger to himself or others and as noted in prior records, patient has been evaluated by [facility] and they have determined that he did not meet criteria for involuntary commitment/ As usual, patient defers on transfer to psychiatric unit for further stabilization. He may be discharged if he should request to be discharged AMA again. Please provide outpatient psychiatric referrals for our psychiatric if that should happen; otherwise, Psychiatry will continue to follow up on patient every 1 to 2 days and as noted that we will advise accordingly. Nick Manzanares MD [facility]
[2018-11-15] MEDS: Albuterol-Ipratrop 3 mg / 0.5 (3 ml) UD IH PRN ×2 (03:20→13:26)
[2018-11-15] MEDS: MethylPREDNISolone 40 mg Vial IVP SCH ×3 (05:10→21:31)
[2018-11-15] MEDS: Arformoterol 15 mcg/2 ml Inh Sol IH SCH ×2 (08:54→19:33)
[2018-11-15] MEDS: Budesonide 0.5 mg/2 ml Inhal Susp UD IH SCH ×2 (08:54→19:33)
[2018-11-15] MEDS: Magnesium Oxide 400 mg Tab UD PO SCH ×2 (09:56→17:59)
[2018-11-15] MEDS: SYMBICORT IH SCH ×2 (10:07→18:35)
[2018-11-15] MEDS: Enoxaparin 40 mg Syringe SC SCH (10:09)
--- NOTE | 2018-11-15 13:10 | PN ---
DATE: 11/15/2018 PULMONARY PROGRESS NOTE REFERRING PHYSICIAN: La Calderon MD SUBJECTIVE: The patient lying in the bed, head 45 degrees. Night was unremarkable. Still has cough and sputum production. No nausea, vomiting, diarrhea, leg pain or leg swelling. OBJECTIVE: GENERAL: In no acute distress. VITAL SIGNS: Temperature is 99, heart rate 96, respiratory rate is 20, blood pressure 160/85, pulse of 96% on 2 liters nasal cannula. HEENT: Moist mucous membranes. NECK: Supple. No JVD. LUNGS: Have scattered rhonchi and wheezing. HEART: S1, S2. ABDOMEN: Soft, nontender, no organomegaly. EXTREMITIES: No edema. NEUROLOGIC: Awake, alert, follows simple commands. MEDICATIONS: Shows Ativan 1 mg every 6 hours p.r.n., Brovana inhaled twice a day, Coreg 12.5 mg twice a day, albuterol/Atrovent nebulizer every 6 hours, Ecotrin 81 mg daily, Eliquis 5 mg twice a day, folic acid 1 mg daily, Haldol 2 mg every 6 hours p.r.n., Imdur ER 30 mg daily, Librium is 25 mg every 8 hours p.r.n., Lipitor 20 mg daily, Lovenox 40 mg daily, mag oxide 400 mg twice a day, Nicoderm patch daily, Plavix 75 mg daily, Protonix 40 mg daily Pulmicort inhaled twice a day, Seroquel 12.5 mg three times a day, Singulair 10 mg daily, Solu-Medrol 40 mg every 8 hours, Tylenol p.r.n., vitamin B1 200 mg daily, vitamin B12 100 mcg daily, Zithromax 500 mg daily. LABORATORY DATA: Reviewed. No new lab is available since yesterday. Blood culture has been negative. IMPRESSION AND PLAN: Chronic obstructive lung disease with exacerbation, coronary artery disease, history of coronary artery bypass surgery, history of coronary stent, hypertension, diabetes, seizure disorder, bipolar disorder, depression, alcohol abuse, active smoker. Pulmonary point of view doing okay. Continue IV inhaled bronchodilator. Continue antibiotic, seizure precaution, gastric prophylaxis, deep venous thrombosis prophylaxis, fall precaution. The patient asked to stop smoking. Follow up labs in the morning. Thank you and we will follow with you. Flor Finch MD [facility] # [id number]
[2018-11-15] MEDS: Haloperidol Lactate 2 mg/ml Liquid PO PRN (15:25)
[2018-11-15] MEDS: Pantoprazole 40 mg EC Tab PO SCH (21:45)
--- NOTE | 2018-11-15 22:31 | PN ---
This case was discussed with Dr. Umaña she is in agreement with treatment plan. DATE: 11/15/2018 SUBJECTIVE: This is a 63-year-old male who was initially discharged after being admitted with COPD exacerbation, shortness of breath, fatigue, suicidal ideation. The patient was discharged back to the community. He was denying inpatient care for psych.at the time and was medically stable to be discharged. The patient came back into the hospital on 11/13/2017 with same symptoms with COPD, complaints of shortness of breath, complaints of feeling depressed. The patient has a history of COPD, a-fib, alcoholism, nicotine dependence, gastritis, depression, anxiety, dementia. Saw the patient today at the bedside. The patient was sitting up. He is alert, cognitive deficit appreciated and oriented 2 to 3. Spoke to the patient about discharging when cleared by Pulmonology. The patient is adamant that he does not want to seek any psych services inpatient but would like to be treated as outpatient. The patient does not have much family support and is homeless. He lives in the [facility]. He has a brother, he says, who lives in [place]. Has a sister, he says, lives in [place], and has not had contact with them is some years. The patient denied shortness of breath, chest pain, hematuria, hematochezia, abdominal pain, sinus pain, numbness, tingling, fevers, or chills. He does report occasional congested cough due to him smoking. PHYSICAL EXAMINATION: VITAL SIGNS: Temperature 97.5, pulse rate 77, blood pressure 105/61, respiratory rate 20, saturating at 96 to 97 on the oxygen at 2 L via nasal cannula. GENERAL: The patient appears chronically ill, cachectic. HEENT: Normocephalic, PERRLA. Mucous membranes dry. NECK: Supple. Normal inspection. RESPIRATORY: Wheezing, productive cough, clear phlegm. CARDIOVASCULAR: S1 and S2. No murmur. No gallop. No JVD. ABDOMEN: Soft. Nontender, no guarding, no tenderness. No organomegaly. SKIN: Warm to touch, intact. No cyanosis. No edema. NEUROLOGIC: The patient is alert and oriented x2 to 3. Cranial nerves II through XII intact. The patient has some cognitive deficit. MEDICATIONS: Tylenol p.r.n., DuoNeb, Eliquis, Brovana, Ecotrin, Lipitor, Zithromax, Pulmicort, Coreg, Librium, Plavix, vitamin D12, Lovenox, folic acid, Haldol p.r.n., Ativan p.r.n., magnesium oxide, Solu-Medrol, Singular, Nicoderm patch, Protonix, Seroquel, thiamine. LABORATORY DATA: White blood cell 6, hemoglobin 12.4, hematocrit 36.7, sodium 127, potassium 4.9, BUN 23, creatinine 0.5, GFR level is 15. ASSESSMENT AND PLAN: A 63-year-old male with chronic obstructive pulmonary disease, nictotine dependence ,hypertension, hyperlipidemia, depression, anxiety, dementia. The patient continues on Singulair, Nicoderm patch, Seroquel, folic acid, vitamin B12, B1, Plavix, Coreg, Lipitor, aspirin, Eliquis, Brovana, Pulmicort. Spoke with nurse today. The patient was reporting that he wanted to leave against medical advice and was anxious and confused at the time, saying he has to pay his rent he doesnot seem to be able to make apprpiate medical decisions for himself but is not willing [facility] or inpatient psych. Problem is if the patient is discharged and will not keep his meds or will not follow smoking cessation which will lead to chronic obstructive pulmonary disease exacerbation and he is currently homeless living in [facility]. Plan at this point is to contact sister or brother for POA of medical decisions. he continues on Ativan p.r.n. for agitation, but he refused the meds at this time. He is also refusing to be inpatient. may sign out AMA. We will follow up with oncology social work to assist with contacting family members will f/u. AGREED ALL ABOVE .NOTED ALL LABS , MEDS , AND PN OF HOSPITALITY MANAGER , REPEAT LABS , WILL F/U Terry Camargo APN La Calderon MD MTDD
[2018-11-16] MEDS: MethylPREDNISolone 40 mg Vial IVP SCH ×3 (05:28→21:11)
[2018-11-16] MEDS: Arformoterol 15 mcg/2 ml Inh Sol IH SCH ×2 (07:28→20:16)
[2018-11-16] MEDS: Albuterol-Ipratrop 3 mg / 0.5 (3 ml) UD IH PRN ×3 (07:28→13:47)
[2018-11-16] MEDS: Budesonide 0.5 mg/2 ml Inhal Susp UD IH SCH ×2 (07:28→20:16)
[2018-11-16 09:30] LABS: ALB/GLOB RATIO 1.6 (1.1-1.8); ALBUMIN 3.7 g/dL (3.0-4.8); ALT/SGPT 29 U/L (7-56); AST/SGOT 23 U/L (17-59); BLOOD UREA NITROGEN 35 mg/dL (7-21); CALCIUM 8.9 mg/dL (8.4-10.5); GFR NON-AFRICAN AMERICAN > 60
[2018-11-16] MEDS: Enoxaparin 40 mg Syringe SC SCH (09:57)
[2018-11-16] MEDS: Magnesium Oxide 400 mg Tab UD PO SCH ×2 (09:58→18:20)
[2018-11-16] MEDS: SYMBICORT IH SCH ×2 (10:00→20:42)
--- NOTE | 2018-11-16 18:57 | CON ---
DATE: 11/16/2018 HISTORY OF PRESENT ILLNESS: The patient is a 63-year-old white male with history of substance induced mood disorder and delirium associated with behavioral disturbance as well as alcohol use disorder and grieving since finding out his friend last week who Psychiatry is following up due to behavioral management symptoms on the unit. The patient this morning continues to present as oriented to month, year, location, and circumstances. Apparently, the patient has had bouts of lability and being difficult in the evening with the staff members and again he requested to be discharged yesterday. Patient is likely becoming more disoriented in the evening contributing to his impulsivity and poor judgment at that time. However, at this time, the patient is calm. I do agree his speech is a little slurred, but I did also note that he received 25 mg of Librium last night, when he really does not need Librium anymore and he had not any doses in the last two days prior~~this medication likely contributed to his slurred speech, I discontinued this medication. He is not hallucinating. He has no explanation about his evening tantrums and he does seem a little bashful about his behaviors in the evenings, he apologizes but he continues to do them. He is future oriented. He feels depressed at times, but adamantly and consistently denies having any suicidal thoughts. He does not appear to be motivated to address his alcohol use. There is no acute disorganization or psychotic process currently at this time. MEDICATIONS: Include, Seroquel 12.5 mg t.i.d., Seroquel 50 mg at bedtime, and Ativan and Librium p.r.n. IMPRESSION: As noted, alcohol use disorder, substance induced mood disorder, grief reaction, and mood disorder not otherwise specified and likely contribution of delirium. RECOMMENDATIONS: I have discontinued the benzodiazepines of the patient. This can cause disinhibition and worsen his orientation. We will continue his Seroquel as ordered. Psychiatrically, the patient is demonstrating vacillating levels of orientation and focus consistent with delirium. In that regard, when the patient is not oriented and is not logical and he is not organized, obliviously he does not have the capacity to sign out .The patient should show demonstrated cleared delirium symptoms for at least 24 hours before it is determined that the delirium has resolved. Psychiatry will continue to follow up peripherally. Please re-consult p.r.n. if there are any new issues. Nick Manzanares MD [facility] # [id number] [place]
[2018-11-16] MEDS: Pantoprazole 40 mg EC Tab PO SCH (21:11)
[2018-11-17] MEDS: Albuterol-Ipratrop 3 mg / 0.5 (3 ml) UD IH PRN (05:25)
[2018-11-17] MEDS: MethylPREDNISolone 40 mg Vial IVP SCH ×2 (05:37→22:22)
--- NOTE | 2018-11-17 06:56 | CP.PCM.PN ---
Subjective - Date & Time of Evaluation Date of Evaluation: 11/17/18 Time of Evaluation: 06:25 - Subjective Subjective: No distress, Awake, alert, lying in bed,feels okay Reason for consultation and follow up: Cardiac evaluation and follow up of atrial fibrillation, history of atrial fibrillation, coronary artery disease post CABG, admitted for exacerbation of COPD Seen and examined by me and Dr. Verdin Objective - Vital Signs/Intake and Output Vital Signs (last 24 hours): Temp Pulse Resp BP Pulse Ox 97.3 F L 63 18 111/72 100 11/16/18 22:00 11/16/18 22:00 11/16/18 22:00 11/16/18 22:00 11/16/18 22:00 Intake and Output: 11/16/18 11/17/18 18:59 06:59 Intake Total 300 Balance 300 - Medications Medications: Current Medications Acetaminophen (Tylenol 325mg Tab) 650 mg PO Q4H PRN PRN Reason: Pain, Mild (1-3) Last Admin: 11/16/18 06:49 Dose: 650 mg Albuterol/Ipratropium (Duoneb 3 Mg/0.5 Mg (3 Ml) Ud) 3 ml IH [id number] PRN PRN Reason: Shortness of Breath Last Admin: 11/17/18 05:25 Dose: 3 ml Apixaban (Eliquis) 5 mg PO BID [facility]; Protocol Last Admin: 11/16/18 17:15 Dose: 5 mg Arformoterol Tartrate (Brovana) 15 mcg IH [id number] [facility] Last Admin: 11/16/18 20:16 Dose: 15 mcg Aspirin (Ecotrin) 81 mg PO DAILY [facility] Last Admin: 11/16/18 09:59 Dose: 81 mg Atorvastatin Calcium (Lipitor) 20 mg PO DIN [facility] Last Admin: 11/16/18 17:16 Dose: 20 mg Azithromycin (Zithromax) 500 mg PO DAILY [facility]; Protocol Last Admin: 11/16/18 09:58 Dose: 500 mg Budesonide (Pulmicort Respules) 0.5 mg IH [id number] [facility] Last Admin: 11/16/18 20:16 Dose: 0.5 mg Carvedilol (Coreg) 12.5 mg PO BID [facility] Last Admin: 11/16/18 17:15 Dose: 12.5 mg Clopidogrel Bisulfate (Plavix) 75 mg PO DAILY [facility] Last Admin: 11/16/18 09:59 Dose: 75 mg Cyanocobalamin (Vitamin B12 100 Mcg Tab) 100 mcg PO DAILY [facility] Last Admin: 11/16/18 17:15 Dose: 100 mcg Enoxaparin Sodium (Lovenox) 40 mg SC DAILY [facility]; Protocol Last Admin: 11/16/18 09:57 Dose: 40 mg Folic Acid (Folic Acid) 1 mg PO DAILY [facility] Last Admin: 11/16/18 09:59 Dose: 1 mg Haloperidol Lactate (Haldol) 2 mg PO Q6 PRN; Protocol PRN Reason: Agitation Last Admin: 11/15/18 15:25 Dose: 2 mg Haloperidol Lactate (Haldol) 2 mg IVP Q6 PRN; Protocol PRN Reason: Agitation Last Admin: 11/15/18 15:47 Dose: 2 mg Home Med (Home Med) 2 unit IH BID [facility] Last Admin: 11/16/18 20:42 Dose: Not Given Isosorbide Mononitrate (Imdur Er) 30 mg PO DAILY [facility] Last Admin: 11/16/18 09:58 Dose: 30 mg Lorazepam (Ativan) 1 mg PO Q6 PRN; Protocol PRN Reason: Agitation Last Admin: 11/15/18 13:24 Dose: 1 mg Magnesium Oxide (Mag-Ox) 400 mg PO BID [facility] Last Admin: 11/16/18 18:20 Dose: 400 mg Methylprednisolone (Solu-Medrol) 40 mg IVP Q8 [facility] Last Admin: 11/17/18 05:37 Dose: 40 mg Montelukast Sodium (Singulair) 10 mg PO HS [facility] Last Admin: 11/16/18 21:13 Dose: 10 mg Nicotine (Nicoderm Cq) 1 patch TD DAILY [facility] Last Admin: 11/16/18 09:57 Dose: 1 patch Pantoprazole Sodium (Protonix Ec Tab) 40 mg PO HS [facility] Last Admin: 11/16/18 21:11 Dose: 40 mg Quetiapine Fumarate (Seroquel) 12.5 mg PO TID [facility]; Protocol Last Admin: 11/16/18 17:17 Dose: 12.5 mg Quetiapine Fumarate (Seroquel) 50 mg PO HS [facility]; Protocol Last Admin: 11/16/18 21:12 Dose: 50 mg Thiamine HCl (Vitamin B1 Tab) 200 mg PO DAILY [facility] Last Admin: 11/16/18 09:59 Dose: 200 mg - Labs Labs: 11/13/18 07:30 11/16/18 09:00 PT 10.7 SECONDS (9.4-12.5) 11/12/18 04:23 INR 0.95 11/12/18 04:23 APTT 26.3 Seconds (26.9-38.3) L 11/12/18 04:23 - Constitutional Appears: Non-toxic, No Acute Distress - Head Exam Head Exam: NORMAL INSPECTION, NORMOCEPHALIC - Eye Exam Eye Exam: Normal appearance Pupil Exam: NORMAL ACCOMODATION - ENT Exam ENT Exam: Mucous Membranes Moist, Normal Exam - Neck Exam Neck Exam: Full ROM, Normal Inspection - Respiratory Exam Respiratory Exam: Decreased Breath Sounds, Clear to Ausculation Bilateral, NORMAL BREATHING PATTERN - Cardiovascular Exam Cardiovascular Exam: +S1, +S2 - GI/Abdominal Exam GI & Abdominal Exam: Soft, Normal Bowel Sounds - Extremities Exam Extremities Exam: Full ROM, Normal Capillary Refill - Neurological Exam Neurological Exam: Alert, Awake Additional comments: periods of confusion/disorientation - Psychiatric Exam Psychiatric exam: Normal Affect, Normal Mood - Skin Skin Exam: Dry, Normal Color, Warm Assessment and Plan - Assessment and Plan (Free Text) Assessment: A 63 year old male who came in to the ER due to worsening shortness of breath and cough. He was just recently discharged for exacerbation of COPD. History of anemia,dizziness, arthritis,GERD, diverticulitis, cholelithiasis, dyspepsia, suicidal ideation/attempt,bipolar disorder, panic attack disorder, anxiety, seizures, renal stones,diabetes, hypertension, COPD, TIA, coronary artery disease with stents, post CABG (2006) alcohol abuse, and tobacco abuse,history of illicit drug use, denies recent use of illicit drugs. Cardiac cath done on 04/04/18 showed manzanita triple vessel disease, patent bLIMA to LAD, patent SVG to ramus but at anastomosis site 95 5 stenosis, patent SVG to OM1, patent SVG to RCA, LVEF 55%, successful PTCA with APURVA of SVG to ramus intermedius. 04/04/18 echo showed normal LVEF, mild pulmonary hypertension. Patient had atrial fibrillation and atrial flutter from previous admissions treated medically and converted to normal sinus rhythm. Recurrent atrial fibrillation and atrial flutter. Controlled rate. On Eliquis for anticoagulation. . Clinically improved. Discharge planning. Patient lives in [facility]/homeless. Social service/case management to determine discharge disposition. Seen by Psychiatry to evaluate capacity to make his own decisions. Cardiac status stable. Will sign off and will follow up as needed. Plan: Clinically improved Denies shortness of breath, feels okay Heart rate stable Blood pressure stable Cardiac status stable On Eliquis 5 mg BID, ASA 81 mg daily,Coreg 12.5 mg BID Plavix 75 mg daily,Imdur 30 mg daily,Solumedrol IV 40 mg every 8 hours Nicoderm patch daily, Lipitor 20 mg daily, Continue current treatment Continue current medications Alcohol withdrawal precaution Discharge planning, lives at [facility]/homeless Awaiting final discharge disposition Psych evaluation done Will sign off and follow up as needed Plan and treatment discussed with Dr. Verdin
[2018-11-17] MEDS: Arformoterol 15 mcg/2 ml Inh Sol IH SCH ×2 (07:14→19:12)
[2018-11-17] MEDS: Budesonide 0.5 mg/2 ml Inhal Susp UD IH SCH ×2 (07:15→19:12)
[2018-11-17 07:24] LABS: ALB/GLOB RATIO 1.6 (1.1-1.8); ALBUMIN 3.9 g/dL (3.0-4.8); ALT/SGPT 27 U/L (7-56); AST/SGOT 35 U/L (17-59); BLOOD UREA NITROGEN 33 mg/dL (7-21); CALCIUM 9.4 mg/dL (8.4-10.5); GFR NON-AFRICAN AMERICAN > 60
--- NOTE | 2018-11-17 09:51 | PN ---
DATE: 11/16/2018 REFERRING PHYSICIAN: La Calderon MD SUBJECTIVE: He is sitting at the side of the bed having lunch, night was unremarkable. Still has cough, shortness of breath. No nausea, vomiting, diarrhea, leg pain or leg swelling. OBJECTIVE: GENERAL: In no acute distress. VITAL SIGNS: Temperature is 98, heart rate 73, respiratory rate is 18, blood pressure 136/70, pulse ox 98%, 2 liters nasal cannula. HEENT: Moist mucous membranes. No ulcer or thrush noted. NECK: Supple. No JVD. LUNGS: Expiratory wheezing, scattered rhonchi. HEART: S1 and S2, ABDOMEN: Soft, nontender, no organomegaly. EXTREMITIES: There is no edema. NEUROLOGICAL: Awake, alert, follows simple commands. MEDICATIONS: He is on Ativan 1 mg every 6 hours p.r.n. Brovana inhaled twice a day, Coreg 12.5 mg twice a day, DuoNeb every 6 hours p.r.n., Ecotrin 81 mg daily, Eliquis 5 mg twice a day, folic acid 1 mg daily, Haldol p.r.n. basis, Imdur ER 30 mg daily, Lipitor 20 mg daily, Lovenox 40 mg daily, magnesium oxide 400 mg twice a day, Nicoderm patch daily, Plavix 75 mg daily, Mucinex 40 mg h.s., Pulmicort inhaled twice a day, Seroquel 12.5 mg three times a day, Seroquel 50 mg h.s., Singulair 10 mg daily, Solu-Medrol 40 mg IV every 8 hours, Tylenol p.r.n., vitamin B1 at 200 mg daily, vitamin B12 1000 mcg daily, Zithromax 500 mg daily. LABORATORY DATA: Reviewed, shows sodium 128, potassium 4.6, chloride 94, bicarbonate 26, BUN 35, creatinine 0.7, glucose 132, calcium 8.9, AST 23, ALT 29, alk phos is 50. Albumin is 3.7. Microbiology, blood culture has been negative. IMPRESSION AND PLAN: Chronic obstructive lung disease with exacerbation, coronary artery disease, history of coronary artery bypass surgery, history of coronary stent, hypertension, diabetes, seizure disorder, bipolar disorder, depression, alcohol abuse, active smoker. Pulmonary point of view, doing okay. We will continue IV and inhaled bronchodilator, fall precaution, gastric prophylaxis, DVT prophylaxis. We will limit his p.o. fluid intake to 1200 mL a day. Follow up sodium in the morning. Thank you and we will follow with you. Flor Finch MD
[2018-11-17] MEDS: Magnesium Oxide 400 mg Tab UD PO SCH ×2 (10:02→17:33)
[2018-11-17] MEDS: Enoxaparin 40 mg Syringe SC SCH ×2 (10:03→10:09)
--- NOTE | 2018-11-17 13:58 | PN ---
DATE: 11/17/2018 PULMONARY PROGRESS NOTE REFERRING PHYSICIAN: La Calderon MD SUBJECTIVE: The patient seen sitting up at bedside. No acute distress. No overnight events reported. Still has cough and shortness of breath. No headache, rhinitis, chest pain, abdominal pain, nausea, vomiting, diarrhea, leg pain or leg swelling reported. OBJECTIVE: GENERAL: No acute distress. VITAL SIGNS: Blood pressure 153/84, pulse 75, temperature 97.2 and oxygen saturation 93%. HEENT: Moist mucous membranes. NECK: Supple. No JVD. LUNGS: Scattered rhonchi bilaterally. CARDIOVASCULAR: S1 and S2. ABDOMEN: Soft and nontender. No distention. No organomegaly. EXTREMITIES: No bilateral lower extremity edema. NEUROLOGIC: Awake, alert and verbal. Following commands. MEDICATIONS: Reviewed. Tylenol 650 mg every 4 hours p.r.n. for mild pain, DuoNeb 3 mL inhalation every 6 hours p.r.n., Eliquis 5 mg twice a day, Brovana 15 mcg inhalation every 12 hours, aspirin 81 mg daily, Lipitor 20 mg at dinner, Zithromax 500 mg daily, Pulmicort 0.5 mg inhalation every 12 hours, Coreg 12.5 mg twice a day, Plavix 75 mg daily, vitamin B12 a 100 mcg daily, Lovenox 40 mg subcutaneous daily, folic acid 1 mg daily, Haldol 2 mg every 6 hours p.r.n., Haldol 2 mg IV push every 6 hours p.r.n., isosorbide mononitrate 30 mg daily, Ativan 1 mg every 6 hours p.r.n., magnesium oxide 400 mg twice a day, Solu-Medrol 40 mg IV push every 8 hours, Singulair 10 mg at bedtime, nicotine patch transdermal daily, Protonix 40 mg at bedtime, Seroquel 12.5 mg three times a day, Seroquel 50 mg at bedtime, and Thiamine 200 mg daily. LABORATORY DATA: Reviewed. Sodium 129, potassium 5.2, chloride 93, carbon dioxide 31, anion gap 11, BUN 33, creatinine 0.7, GFR is greater than 60, POC glucose 117, random glucose 98, calcium 9.4, phosphorus 4.3, magnesium 2.1, total bilirubin 0.5, AST 35, ALT 27, alkaline phosphatase 50, total protein 3.5, albumin 3.9, globulin 2.5 albumin-globulin ratio 1.6. Blood cultures final no growth after 5 days. IMPRESSION AND PLAN: Chronic obstructive lung disease with exacerbation, coronary artery disease, history of coronary artery bypass surgery, history of coronary stents, hypertension, diabetes, seizure disorder, bipolar disorder, depression, alcohol abuse, and active smoker. Pulmonary point of view, continue inhaled bronchodilators, gastric prophylaxis, and deep venous thrombosis prophylaxis. Fluid restriction 1200 mL a day. Followup labs in the morning. We will decrease Solu-Medrol to 40 mg every 12 hours. Fall precautions. Potassium level ordered stat at this time not available, we will followup. This patient was seen and examined with Dr. Finch. Discussed assessment and plan as described above. This patient was seen and examined with Rolando Castelan, nurse practitioner. Discussed assessment and plan as described above. Thank you for this consult. We will follow with you. Rolando Castelan APN Flor Finch MD
[2018-11-17] MEDS: SYMBICORT IH SCH ×2 (14:29→17:39)
--- NOTE | 2018-11-17 19:26 | PN ---
DATE: 11/17/2018 SUBJECTIVE: The patient is a 63-year-old male. The patient was seen and examined at the bedside on 11/17/2018. The patient looks comfortable. No fever. No chills. No hematuria. No hematochezia. No headache. No dizziness. No chest pain. No palpitations. Cough is getting better. Shortness of breath is getting better. PHYSICAL EXAMINATION VITAL SIGNS: Blood pressure 153/84, pulse 75, temperature 97.2, and oxygen saturation 93%. HEENT: Head; normocephalic and atraumatic. Eyes; PERRLA. Extraocular muscles intact. Conjunctivae clear. Nose patent. NECK: Supple. No carotid bruit. No JVD. No thyromegaly. CHEST: Bilaterally symmetrical. HEART: S1 and S2 positive. LUNGS: Positive wheezing bilaterally. ABDOMEN: Soft and nontender. No organomegaly. EXTREMITIES: No edema. No cyanosis. NEUROLOGIC: The patient is awake, alert, and follows simple commands. MEDICATIONS: Tylenol, DuoNeb, Eliquis, Brovana, Zithromax, Pulmicort, Lovenox, Haldol, Solu-Medrol tapering doses, Singulair, and Protonix. LABORATORY DATA: Sodium 129, potassium 5.2, BUN 33, creatinine 0.7, glucose 117, AST 35, and ALT 27. ASSESSMENT AND PLAN: [place] Alexandra is a 63-year-old male has chronic obstructive pulmonary disease with exacerbation, coronary artery disease, recent coronary artery bypass, recent coronary stenting, hypertension, diabetes mellitus, seizure disorder, bipolar, depression, alcohol abuse, active smoker. Chute Loader is on the case, getting steroid bronchodilators. Gastrointestinal and deep venous thrombosis prophylaxis. Repeat labs. We will follow up. La Calderon MD
--- NOTE | 2018-11-17 21:10 | CON ---
DATE: 11/17/2018 HISTORY OF PRESENT ILLNESS: The patient is a 63-year-old white male with history of substance induced mood disorder and delirium associated with behavioral disturbance as well as alcohol use disorder and grieving. Psychiatry is following up due to behavioral issues on the medical floor while he is being optimized for COPD exacerbation. The patient has had recurrent bouts of lability, agitation and disorientation in the evening. The frequency and severity of these are improving and the patient did not have any outbursts last night and generally, he appears to be in very good control during the day, oriented x3, pleasant and friendly with this provider. He is generally alert and can express the needs well and continues to indicate that he plans to follow up with medical recommendations, in this respect he is future oriented. The patient admits to alcoholism, he does not know if he is going to go back to drinking when he is discharged, he is not extremely motivated to consider alcohol cessation option and followup at this time. There is no acute disorganization or psychotic process currently. His insight and judgment are improving. MEDICATIONS: Include Seroquel 12.5 t.i.d., Seroquel 50 at bedtime. IMPRESSION: As noted alcoholic use disorder, substance-induced mood disorder, grief reaction, mood disorder, not otherwise specified, and likely contribution of delirium which has been clearing. RECOMMENDATIONS: We will continue with current medications as no acute indication to change them at this time. Psychiatry will sign off at this time. We will follow peripherally. Please re-consult [email or web address]. Nick Manzanares MD [facility]
[2018-11-17] MEDS: Pantoprazole 40 mg EC Tab PO SCH (22:21)
[2018-11-18] MEDS: Budesonide 0.5 mg/2 ml Inhal Susp UD IH SCH ×2 (07:26→19:23)
[2018-11-18] MEDS: Arformoterol 15 mcg/2 ml Inh Sol IH SCH ×2 (07:27→19:23)
[2018-11-18] MEDS: Magnesium Oxide 400 mg Tab UD PO SCH ×2 (10:46→17:18)
[2018-11-18] MEDS: MethylPREDNISolone 40 mg Vial IVP SCH ×2 (10:49→21:25)
[2018-11-18] MEDS: SYMBICORT IH SCH ×2 (10:51→17:23)
[2018-11-18] MEDS: Enoxaparin 40 mg Syringe SC SCH (10:51)
--- NOTE | 2018-11-18 11:22 | PN ---
DATE: 11/18/2018 PULMONARY PROGRESS NOTE REFERRING PHYSICIAN: La Calderon MD SUBJECTIVE: The patient seen sitting up at bedside. No acute distress. No overnight events reported. Reports that shortness of breath is better. Cough is better, but he still reports having productive cough. No headache, rhinitis, chest pain, abdominal pain, nausea, vomiting, diarrhea, leg pain or leg swelling reported. Social workers notes reviewed. The patient refuses to go to rehab, wanted to go home when discharged. OBJECTIVE: GENERAL: No acute distress. VITAL SIGNS: Blood pressure 148/76, pulse 78, temperature 97.8 and oxygen saturation 97%. HEENT: Moist mucous membranes. NECK: Supple. No JVD. LUNGS: Scattered rhonchi bilaterally. CARDIOVASCULAR: S1 and S2. ABDOMEN: Soft and nontender. No distention. No organomegaly. EXTREMITIES: No bilateral lower extremity edema. NEUROLOGIC: Awake, alert and verbal. Following commands. MEDICATIONS: Reviewed. Tylenol 650 mg every 4 hours p.r.n. for mild pain, DuoNeb 3 mL inhalation every 6 hours p.r.n., Eliquis 5 mg twice a day, Brovana 15 mcg inhalation every 12 hours, aspirin 81 mg daily, Lipitor 20 mg at dinner, Zithromax 500 mg daily, Pulmicort 0.5 mg inhalation every 12 hours, Coreg 12.5 mg twice a day, Plavix 75 mg daily, vitamin B12 100 mcg daily, Lovenox 40 mg subcutaneous daily, folic acid 1 mg daily, Haldol 2 mg every 6 hours p.r.n., Haldol 2 mg IV push every 6 hours p.r.n., isosorbide mononitrate 30 mg daily, Ativan 0.5 mg every 6 hours p.r.n., magnesium oxide 400 mg twice a day, Solu-Medrol 40 mg IV push every 12 hours, Singulair 10 mg at bedtime, nicotine patch transdermal daily, Protonix 40 mg at bedtime, Seroquel 12.5 mg three times a day, Seroquel 50 mg at bedtime, and Thiamine 200 mg daily. LABORATORY DATA: Reviewed. POC glucose 78 and potassium 5.1. IMPRESSION AND PLAN: Chronic obstructive lung disease with exacerbation, coronary artery disease, coronary artery bypass surgery, history of coronary stents, diabetes mellitus, hypertension, seizure disorder, depression, bipolar disorder, alcohol abuse, and active smoker. Pulmonary point of view, continue inhaled bronchodilators, gastric prophylaxis, and deep venous thrombosis prophylaxis. Currently on fluid restriction. Continue fluid restriction. Continue steroids. Fall precaution. We believe the patient would benefit from rehabilitation and physical therapy, the patient refuses at this time and wants to go home upon discharge. Will discontinue antibiotics as this time. Patient completed 5 days of Zithromax this admission. We believe patient would benefit from another day or so of acute inpatient treatment to ensure pulmonary stability. This patient was seen and examined with Dr. Finch. Discussed assessment and plan as described above. This patient was seen and examined with Rolando Castelan, nurse practitioner. Discussed assessment and plan as described above. Thank you for this consult. We will follow with you. Rolando Castelan APN Flor Finch MD [facility]
[2018-11-18] MEDS: Albuterol-Ipratrop 3 mg / 0.5 (3 ml) UD IH PRN (15:44)
[2018-11-18] MEDS: Pantoprazole 40 mg EC Tab PO SCH (21:25)
[2018-11-18 22:32] VITALS: RESP 18
--- NOTE | 2018-11-18 23:56 | PN ---
DATE: 11/18/2018 SUBJECTIVE: This is a 63-year-old male came in with shortness of breath, depression, anxiety, and COPD exacerbation. The patient is alert and oriented x2-3. I saw the patient at the bedside today. He is denying shortness of breath, does report some wheezing and productive cough throughout the day. The patient is on antibiotic and Pulmonary is on the case. He is denying palpitations, abdominal pain, hematuria, hematochezia, fevers, or chills, suicidal ideations, or homicidal ideations. He was little agitated today stating that he has to go home, he has to get out of here. Last time, the patient was discharged and came back next few days spoke to patient regarding a POA that maybe sister would be able to help him make some decisons, at this time patient is not against it but insist that he is caplable of making decision, however his judgement seems impaired and he has no healthcare proxy listed. PHYSICAL EXAMINATION: VITAL SIGNS: Temperature 97.6, pulse rate 80, blood pressure 102/62, respiratory rate 16, and O2 sat 91% via nasal cannula. GENERAL: The patient appears chronically ill, productive cough, during examination agitated very easily. HEENT: Normocephalic and atraumatic. PERRLA. Mucous membranes dry. NECK: Supple. Normal inspection. RESPIRATORY: Scattered wheeze cleared with cough. Productive cough of yellow phlegm. CARDIOVASCULAR: S1 and S2. No murmur. No gallop. ABDOMEN: Soft and nontender. No organomegaly. Positive bowel sounds. SKIN: Intact. No cyanosis. No calf tenderness. No edema. NEUROLOGIC: The patient is alert and oriented x2-3. Cranial nerves II through XII are intact. The patient appears to have some cognitive deficits related to impaired decision making and thought process at times. The patient also seen by psych, (see pysch consult) MEDICATIONS: Tylenol p.r.n., DuoNeb, Eliquis, Brovana, Ecotrin, Lipitor, Pulmicort, Coreg, Plavix, vitamin B12, Lovenox, folic acid, Haldol, Imdur, Ativan every 6 hours, Mag-Ox, Solu-Medrol every 12 hours, Singulair, nicotine, Nicoderm patch, Protonix, Seroquel, and vitamin B1. LABORATORY DATA: White blood cell from 11/13/2018 is 6, hemoglobin is 12.4, hematocrit is 36.7, and platelet count is 362. Potassium is 5.1, sodium is 129, BUN is 33, and GFR above 60. INR is 0.95. ASSESSMENT AND PLAN: This is a 63-year-old male with chronic obstructive pulmonary disease, hypertension, hypercholesterol, nicotine dependence, anxiety, and depression. The patient continues on Seroquel, vitamin B1, alcohol dependence, Nicoderm, Solu-Medrol every 12 hours, Ativan for agitation, Haldol, folic acid, Plavix, and Coreg. The patient was seen by Psych. refused the inpatient care, He also refused inpatient rehab. The patient has long history of these behaviors. I spoke to care management best on his case. We will try to contact sister if she could be power of claims attorney/health care proxy; as this may take a process to accomplish. for now we will monitor labs, f/u with pulmonology We will monitor Continue hypertensive medications and we will follow up the patient. AGREED ALL ABOVE , CHART , MEDS LIST , LABS AND ALL CONSULTANTS NOTES NOTED , D/D WITH STAFF , WILL F/U Terry Camargo APN La Calderon MD MTDTheo
[2018-11-19] MEDS: Arformoterol 15 mcg/2 ml Inh Sol IH SCH ×2 (07:47→19:44)
[2018-11-19] MEDS: Budesonide 0.5 mg/2 ml Inhal Susp UD IH SCH ×2 (07:47→19:43)
[2018-11-19 08:51] LABS: BLOOD UREA NITROGEN 29 mg/dL (7-21); GFR NON-AFRICAN AMERICAN > 60
--- NOTE | 2018-11-19 09:06 | CP.PCM.PCO ---
Physician Communication Note - Physician Communication Note Physician Communication Note: psychiatry signed off
[2018-11-19] MEDS: Enoxaparin 40 mg Syringe SC SCH (09:56)
[2018-11-19] MEDS: SYMBICORT IH SCH ×2 (09:56→17:19)
[2018-11-19] MEDS: Magnesium Oxide 400 mg Tab UD PO SCH ×2 (09:57→17:20)
[2018-11-19] MEDS: MethylPREDNISolone 40 mg Vial IVP SCH ×2 (09:58→21:55)
[2018-11-19] MEDS: Albuterol-Ipratrop 3 mg / 0.5 (3 ml) UD IH PRN (13:03)
--- NOTE | 2018-11-19 16:36 | PN ---
DATE: 11/19/2018 PULMONARY PROGRESS NOTE REFERRING PHYSICIAN: La Calderon MD SUBJECTIVE: The patient seen sitting up at bedside. No acute distress. No overnight events reported. Reports that he still has productive cough, shortness of breath has improved. No headache, rhinitis, chest pain, abdominal pain, nausea, vomiting, diarrhea, leg pain or leg swelling reported. Nursing staff reports that Morgan catheter have to be placed today. States that earlier this morning the patient was complaining of abdominal pain and need to urinate. Bladder scan was done, which shows 550 mL urinary retention, so Morgan catheter was placed. Nursing staff also reports Urology consult was called. PHYSICAL EXAMINATION GENERAL: No acute distress. VITAL SIGNS: Blood pressure 112/61, pulse 75, temperature 98.3, oxygen saturation 98%. HEENT: Moist mucous membranes. NECK: Supple. No JVD. LUNGS: Scattered rhonchi bilaterally. CARDIOVASCULAR: S1 and S1. ABDOMEN: Soft, nontender. No distention. No organomegaly. EXTREMITIES: No bilateral lower extremity edema. NEUROLOGIC: Awake, alert and verbal. Following commands. MEDICATIONS: Reviewed. Tylenol 650 mg every 4 hours p.r.n. for mild pain, DuoNeb 3 mL inhalation every 6 hours p.r.n., Eliquis 5 mg twice a day, Brovana 50 mcg every 12 hours, aspirin 81 mg daily, Lipitor 20 mg at dinner, Pulmicort 0.5 mg inhalation every 12 hours, Coreg 12.5 mg twice a day, Plavix 75 mg daily, vitamin B12 of 100 mcg daily, folic acid 1 mg daily, Haldol 2 mg IV push every 6 hours p.r.n., isosorbide mononitrate 30 mg daily, Ativan 0.5 mg every 6 hours p.r.n., magnesium oxide 400 mg twice a day, Solu-Medrol 40 mg every 12 hours, Singulair 10 mg at bedtime, nicotine patch transdermal daily, Protonix 40 mg at bedtime, Seroquel 12.5 mg every three times a day, Seroquel 15 mg at bedtime. LABORATORY DATE: Reviewed. Sodium 127, potassium 4.9, chloride 91, carbon dioxide 29, anion gap 12, BUN 29, creatinine 0.6, GFR greater than 60. POC glucose 107, random glucose 143, calcium 9.0. Blood cultures final no growth after 5 days. IMPRESSION AND PLAN: Chronic obstructive lung disease exacerbation, coronary artery disease, coronary artery bypass surgery, history of coronary stent, diabetes mellitus, hypertension, seizure disorder, depression, bipolar disorder, alcohol abuse, active smoker. The patient noted with urinary retention, today Morgan catheter was placed. We will ordered PSA level to be done. We will placed the patient on Flomax 0.4 mg daily. We will ordered urinalysis and urine culture to be done. The patient also has hyponatremia. We will start the patient on sodium chloride one tables 1 g twice a day for three days. Follow up labs. Pulmonary point of view, continued inhaled bronchodilators, gastro prophylaxis, deep venous thrombosis prophylaxis. Currently on fluid restriction, continue fluid restriction. Fall precautions. Recommendation the patient to have full pulmonary function test as outpatient. Recommendation the patient sleep study as an outpatient. This patient was seen and examined with Dr. Finch. Discussed assessment and plan as described above. This patient was seen and examined with Rolando Castelan, nurse practitioner. Discussed assessment and plan as described above. Thank you for this consult. We will follow with you. Rolando Castelan APN Flor Finch MD
--- NOTE | 2018-11-19 18:32 | PCM.URO ---
Urology Progress Note - Objective Lab Studies: Reviewed (maintain brooke and we will start flomax will follow along and most likely outpt trial of void) Lab Results Last 24 Hours: Laboratory Results - last 24 hr 11/18/18 11/18/18 11/19/18 15:57 21:23 06:25 Sodium Potassium Chloride Carbon Dioxide Anion Gap BUN Creatinine Est GFR ( Amer) Est GFR (Non-Af Amer) POC Glucose (mg/dL) 101 116 H 113 H Random Glucose Calcium 11/19/18 11/19/18 11/19/18 08:00 11:24 16:06 Sodium 127 L Potassium 4.9 Chloride 91 L Carbon Dioxide 29 Anion Gap 12 BUN 29 H Creatinine 0.6 L Est GFR ( Amer) > 60 Est GFR (Non-Af Amer) > 60 POC Glucose (mg/dL) 107 119 H Random Glucose 143 H Calcium 9.0 Intake & Output: Intake & Output 11/18/18 11/19/18 11/19/18 18:59 06:59 18:59 Intake Total 540 540 Output Total 250 Balance 540 540 -250 Intake: Oral 540 540 Output: Urine 250 Urine, Voided 250 Other: # Voids Urine, Voided 1 7 # Bowel Movements 1 0 Vital Signs: Vital Signs - 24 hr 11/18/18 11/19/18 11/19/18 22:31 06:00 09:55 Temperature 98 F 97.4 F L Pulse Rate 65 75 77 Respiratory 18 18 Rate Blood Pressure 106/68 134/77 140/73 O2 Sat by Pulse 100 96 Oximetry 11/19/18 11/19/18 14:00 17:18 Temperature 98.3 F Pulse Rate 75 77 Respiratory 18 Rate Blood Pressure 112/61 115/63 O2 Sat by Pulse 98 Oximetry
--- NOTE | 2018-11-19 21:07 | PN ---
This case was discussed with Dr. Calderon and she in agreement with treatment plan. DATE: 11/19/2018 SUBJECTIVE: This 63-year-old male came in with exacerbation of COPD, productive cough. The patient has a past medical history of alcoholism, COPD, atrial fibrillation, nicotine dependence, ETOH, depression, anxiety. I am seeing the patient today at the bedside. He is alert and oriented x 2 to 3. He is less agitated today than a few days ago. I spoke to the patient about possibly getting in contact with his sister for her to help him make some medical decisions because his judgement seems to be impaired, The patient was in agreement with this today. However, there is some inconsistency with his judgment. The patient denies shortness of breath, presently reports cough with phlegm. Denies chest pain. Denies abdominal pain, hematuria, hematochezia, fever or chills. PHYSICAL EXAMINATION GENERAL: The patient appears chronically ill. VITAL SIGNS: Temperature 98.3, pulse rate 75, blood pressure 112/61, respiratory rate 18, saturating at 98% with 2 liters of O2. HEENT: Normocephalic and atraumatic. PERRLA. Mucous membranes moist. NECK: Supple. Normal inspection. RESPIRATORY: Cough. Wheezing noted, but cleared with cough. Productive cough. CARDIOVASCULAR: S1, S2. No JVD. ABDOMEN: Soft, nontender, nondistended, positive bowel sounds. No organomegaly. SKIN: Intact. No cyanosis, no edema. EXTREMITIES: Moving all extremities. NEUROLOGIC; The patient is alert and oriented x 2 to 3. Some cognitive deficits. Cranial nerves II through XII are intact. MEDICATIONS: Tylenol, Duoneb, Eliquis, Brovana, ASA 81 mg, Lipitor 20 mg, Pulmicort, Coreg, vitamin B12, folic acid, Haldol every 6 hours, Ativan every 6 hours, Imdur, magnesium oxide, Solu-Medrol, Singulair, nicotine patch daily, Protonix, Seroquel at bedtime, sodium chloride 5 mg 1 tab, thiamine. LABORATORY DATA: On 11/13/2018; white blood cells of 6, hemoglobin 12.4, hematocrit 36.7, platelet count 362. Sodium 127, potassium of 4.9, BUN of 29, creatinine was 0.6. Glucose today is 143, glucose was negative. ASSESSMENT AND PLAN: This 63-year-old patient with chronic obstructive pulmonary disease exacerbation, hypertension, hypercholesterolemia, low sodium, chronic anemia has productive cough. The patient is being followed by Pulmonology. He is on Brovana, Duoneb, Pulmicort, Solu-Medrol. The patient has finished ABT. The patient continues sodium chloride tablets. The patient is taking Imdur, Coreg, Lipitor, aspirin, Eliquis. We will also continue to monitor the patient's labs.The patient was seen by Psychiatry, refused inpatient care. The patient has major depressive disorder, anxiety, depression, some behavioral issues, agitated at times, impaired judgment he has PRN's for that . we will try to f/u with sister for medical decision making and possible [id number]. We will work on that and continue to follow the patient. ALL ABOVE NOTED , AGREED WITH TRIMMER MACHINE , EDUCATION DONE WILL F/U Terry Camargo APN La Calderon MD MTDTheo
[2018-11-19 21:31] LABS: URINE BILIRUBIN NEGATIVE (NEGATIVE); URINE BLOOD NEGATIVE (NEGATIVE); URINE GLUCOSE (UA) NEGATIVE (NEGATIVE); URINE LEUKOCYTE ESTERASE NEGATIVE Leu/uL (NEGATIVE); URINE PROTEIN NEGATIVE mg/dL (<30 mg/dL); URINE UROBILINOGEN 0.2 E.U./dL (<1 E.U./dL)
[2018-11-19 21:33] LABS: URINE APPEARANCE CLEAR (CLEAR); URINE COLOR YELLOW (YELLOW)
[2018-11-19] MEDS: Pantoprazole 40 mg EC Tab PO SCH (21:57)
[2018-11-20] MEDS: Arformoterol 15 mcg/2 ml Inh Sol IH SCH ×3 (07:13→19:28)
[2018-11-20] MEDS: Budesonide 0.5 mg/2 ml Inhal Susp UD IH SCH ×3 (07:14→19:28)
[2018-11-20 07:21] LABS: BLOOD UREA NITROGEN 29 mg/dL (7-21); CALCIUM 9.2 mg/dL (8.4-10.5); GFR NON-AFRICAN AMERICAN > 60
[2018-11-20] MEDS: MethylPREDNISolone 40 mg Vial IVP SCH ×2 (09:06→22:07)
[2018-11-20] MEDS: Magnesium Oxide 400 mg Tab UD PO SCH ×2 (09:09→20:34)
[2018-11-20] MEDS: SYMBICORT IH SCH ×2 (09:46→20:33)
--- NOTE | 2018-11-20 11:53 | PCM.URO ---
Urology Progress Note - Objective Lab Studies: Reviewed (no gu changes brooke to sd out pt management and trial of void as outpt) Lab Results Last 24 Hours: Laboratory Results - last 24 hr 11/19/18 11/19/18 11/19/18 16:06 20:00 21:20 Sodium Potassium Chloride Carbon Dioxide Anion Gap BUN Creatinine Est GFR ( Amer) Est GFR (Non-Af Amer) POC Glucose (mg/dL) 119 H Random Glucose Calcium Prostate Specific Ag 1.0 Urine Color Yellow Urine Appearance Clear Urine pH 6.0 Ur Specific [place] 1.010 Urine Protein Negative Urine Glucose (UA) Negative Urine Ketones Negative Urine Blood Negative Urine Nitrate Negative Urine Bilirubin Negative Urine Urobilinogen 0.2 Ur Leukocyte Esterase Negative 11/19/18 11/20/18 11/20/18 21:23 06:12 06:30 Sodium 130 L Potassium 5.0 Chloride 93 L Carbon Dioxide 29 Anion Gap 12 BUN 29 H Creatinine 0.6 L Est GFR ( Amer) > 60 Est GFR (Non-Af Amer) > 60 POC Glucose (mg/dL) 113 H 140 H Random Glucose 109 Calcium 9.2 Prostate Specific Ag Urine Color Urine Appearance Urine pH Ur Specific [place] Urine Protein Urine Glucose (UA) Urine Ketones Urine Blood Urine Nitrate Urine Bilirubin Urine Urobilinogen Ur Leukocyte Esterase 11/20/18 11:06 Sodium Potassium Chloride Carbon Dioxide Anion Gap BUN Creatinine Est GFR ( Amer) Est GFR (Non-Af Amer) POC Glucose (mg/dL) 81 Random Glucose Calcium Prostate Specific Ag Urine Color Urine Appearance Urine pH Ur Specific [place] Urine Protein Urine Glucose (UA) Urine Ketones Urine Blood Urine Nitrate Urine Bilirubin Urine Urobilinogen Ur Leukocyte Esterase Intake & Output: Intake & Output 11/19/18 11/20/18 11/20/18 18:59 06:59 18:59 Intake Total 860 Output Total 250 4450 Balance -250 -3590 Intake: Oral 860 Output: Urine 250 4450 Urine, Voided 250 4450 Other: # Bowel Movements 1 Vital Signs: Vital Signs - 24 hr 11/19/18 11/19/18 11/19/18 14:00 17:18 21:37 Temperature 98.3 F 97.6 F Pulse Rate 75 77 73 Respiratory 18 18 Rate Blood Pressure 112/61 115/63 116/69 O2 Sat by Pulse 98 98 Oximetry 11/20/18 11/20/18 06:00 09:08 Temperature 97.7 F Pulse Rate 76 76 Respiratory 18 Rate Blood Pressure 137/77 137/77 O2 Sat by Pulse 100 Oximetry
--- NOTE | 2018-11-20 12:38 | PN ---
DATE: 11/20/2018 PULMONARY PROGRESS NOTE REFERRING PHYSICIAN: La Calderon MD SUBJECTIVE: The patient is seen sitting up at bedside. No acute distress. No overnight events reported. Reports improvement in cough and shortness of breath. No headache, rhinitis, chest pain, abdominal pain, nausea, vomiting, diarrhea, leg pain or leg swelling reported. Still with Morgan catheter in place. PHYSICAL EXAMINATION: GENERAL: No acute distress. VITAL SIGNS: Blood pressure 137/77, pulse 76, temperature 97.7, oxygen saturation 100. HEENT: Moist mucous membranes. NECK: Supple. No JVD. LUNGS: Scattered rhonchi bilaterally. CARDIOVASCULAR: S1 and S2. ABDOMEN: Soft, nontender. No distention. No organomegaly. EXTREMITIES: No bilateral lower extremity edema. NEUROLOGIC: Awake, alert and verbal. Following commands. MEDICATIONS: Reviewed. Tylenol 650 every 4 hours p.r.n., DuoNeb 3 mL inhalation every 6 hours p.r.n., Eliquis 5 mg twice a day, Brovana 15 mcg inhalation every 12 hours, aspirin 81 mg daily, Lipitor 20 mg at dinner, Pulmicort 0.5 mg inhalation every 12 hours, Coreg 12.5 mg twice a day, Plavix 75 mg daily, vitamin B12 100 mcg daily, folic acid 1 mg daily, Haldol 2 mg every 6 hours p.r.n., Haldol 2 mg IV push every 6 hours p.r.n., isosorbide mononitrate 30 mg daily, Ativan 0.5 mg every 6 hours p.r.n., magnesium oxide 400 mg twice a day, Solu-Medrol 20 mg every 12 hours, Singulair 10 mg at bedtime, nicotine patch transdermal daily, Protonix 40 mg h.s., Seroquel 12.5 mg every three times a day, Seroquel 50 mg at bedtime, sodium chloride 1 g twice a day, Flomax 0.4 mg daily, thiamine 200 mg daily. LABORATORY DATA: Reviewed. Sodium 130, potassium 5, chloride 93, carbon dioxide 29, anion gap 12, BUN 29, creatinine 0.6, GFR greater than 60. POC glucose 81, random glucose 109, calcium 9.2, PSA is 1. Urinalysis unremarkable. IMPRESSION AND PLAN: Chronic obstructive lung disease exacerbation, coronary artery disease, coronary artery disease bypass surgery, history of coronary stents, diabetes mellitus, seizure disorder, hypertension, depression, bipolar disorder, alcohol abuse, and active smoker, presently with Morgan catheter in place due to urinary retention. Urology note appreciated. Continue the patient on sodium chloride tablets. We will repeat labs in the morning. Pulmonary point of view, continue inhaled bronchodilators, gastric prophylaxis, and deep venous thrombosis prophylaxis. Currently fluid restrictions, fall precautions. We do recommend physical therapy. The patient is refusing subacute rehab placement. Case discussed with nursing staff. He will follow up with the Urology regarding Morgan catheter and discharge, social media marketing analyst to follow up to assure a safe discharge as the patient presently has Morgan catheter in place. We recommend the patient have full pulmonary function test as outpatient and recommend the patient have sleep study as outpatient. The patient was seen and examined with Dr. Finch. Discussed assessment and plan as described above. The patient was seen and examined with Rolando Castelan, nurse practitioner. Discussed assessment and plan as described above. Thank you for this consult. We will follow with you. Rolando Castelan APN Flor Finch MD
[2018-11-20] MEDS: Pantoprazole 40 mg EC Tab PO SCH (22:06)
[2018-11-21] MEDS: Albuterol-Ipratrop 3 mg / 0.5 (3 ml) UD IH PRN (01:36)
[2018-11-21] MEDS: Budesonide 0.5 mg/2 ml Inhal Susp UD IH SCH (07:19)
[2018-11-21] MEDS: Arformoterol 15 mcg/2 ml Inh Sol IH SCH (07:19)
[2018-11-21 08:09] VITALS: TEMP 97.5
--- NOTE | 2018-11-21 08:40 | PN ---
DATE: 11/20/2018 SUBJECTIVE: The patient is a 63-year-old male. The patient was seen and examined at the bedside on 11/20/2018. Looking comfortable. No fever. No chills. No hematuria. No hematochezia. No headache or dizziness. No chest pain. No palpitation. PHYSICAL EXAMINATION VITAL SIGNS: Blood pressure 137/77, pulse 76, temperature 97.6, and oxygen saturation 100%. HEENT: Head; normocephalic and atraumatic. Eyes; PERRLA. Extraocular muscles intact. Conjunctiva clear. Nose patent. Mucus membranes moist. NECK: Supple. No carotid bruit or thyromegaly. CHEST: Bilaterally symmetrical. HEART: S1 and S2 positive. LUNGS: Clear to auscultation. ABDOMEN: Soft. Bowel sounds present. No organomegaly. EXTREMITIES: No edema. No cyanosis. NEUROLOGIC: The patient is awake and alert. Moving all four extremities. No focal deficit. MEDICATIONS: Tylenol, DuoNeb, Eliquis, Brovana, aspirin, Lipitor, Pulmicort, Coreg, Plavix, Haldol, Singulair, Protonix, Seroquel, and Flomax. LABORATORY DATA: Sodium 130, potassium 5, BUN 29, creatinine 0.6, glucose 81, and calcium 9.2. ASSESSMENT AND PLAN: Mr. Chico Alexandra is a 63-year-old male with multiple medical problems, came with exacerbation of chronic obstructive lung disease, coronary artery disease, coronary artery bypass surgery, history of coronary stents, diabetes mellitus, seizure disorder, hypertension, hypercholesterolemia, bipolar, depression, alcohol abuse, history of active smoking, has Morgan catheter because of urinary retention. Urologist is on the case, Speech And Language Tutor is on the case. Currently the patient is on fluid restriction. Gastrointestinal and deep venous thrombosis prophylaxis. Repeat labs. We will follow up. La Calderon MD
[2018-11-21] MEDS: Magnesium Oxide 400 mg Tab UD PO SCH (09:26)
[2018-11-21] MEDS: MethylPREDNISolone 40 mg Vial IVP SCH (09:29)
[2018-11-21] MEDS: SYMBICORT IH SCH (09:37)
--- NOTE | 2018-11-21 12:07 | PN ---
DATE: 11/21/2018 PULMONARY PROGRESS NOTE REFERRING PHYSICIAN: La Calderon MD SUBJECTIVE: The patient is seen sitting up at the side of his bed. No acute distress. Morgan catheter was discontinued this morning. Nursing staff reports that the patient voided this morning. The patient refused lab work to be drawn this morning, states that he feels better. Cough and shortness of breath have improved. No headache, rhinitis, chest pain, abdominal pain, nausea, vomiting, diarrhea, leg pain or leg swelling reported. PHYSICAL EXAMINATION: GENERAL: No acute distress. VITAL SIGNS: Blood pressure 135/84, pulse 71, temperature 97.5, oxygen saturation 100%. HEENT: Moist mucous membranes. NECK: Supple. No JVD. LUNGS: Scattered rhonchi bilaterally. CARDIOVASCULAR: S1, S2. ABDOMEN: Soft, nontender. No distention. No organomegaly. EXTREMITIES: No bilateral lower extremity edema. NEUROLOGIC: Awake, alert and verbal. Following commands. MEDICATIONS: Reviewed. Tylenol 650 every 4 hours p.r.n. mild pain, DuoNeb 3 mL inhalation every 6 hours p.r.n., Eliquis 5 mg twice a day, Brovana 15 mcg every 12 hours, aspirin 81 mg daily, Lipitor 20 mg at dinner, Pulmicort 0.5 mg inhalation every 12 hours, Coreg 12.5 mg p.o. twice a day, Plavix 75 mg daily, vitamin B12 at 100 mcg daily, folic acid 1 mg daily, Haldol 2 mg every 6 hours p.r.n., Haldol 2 mg IV push every 6 hours p.r.n., isosorbide mono 30 mg p.o. daily, Ativan 0.5 mg p.o. every 6 hours p.r.n., magnesium oxide 400 mg twice a day, Solu-Medrol 20 mg IV push every 12 hours, Singulair 10 mg at bedtime, nicotine patch transdermal daily, Protonix 40 mg daily, Seroquel 12.5 mg three times a day, Seroquel 50 mg at bedtime, sodium chloride 1 g twice a day, Flomax 0.4 mg daily, thiamine 200 mg daily. LABORATORY DATA: Reviewed. POC glucose 85. IMPRESSION AND PLAN: Chronic obstructive lung disease exacerbation, coronary artery disease, coronary artery bypass surgery, history of coronary stents, diabetes mellitus, hypertension, seizure disorder, depression, alcohol abuse, history of bipolar disorder, active smoker, urinary retention. Morgan catheter was discontinued this morning. Continue Urology followup. Pulmonary point of view, continue inhaled bronchodilators, gastric prophylaxis, deep venous thrombosis prophylaxis. Continue fluid restrictions, fall precautions. The patient refusing subacute rehab or TCU placement. We do believe the patient would benefit from physical therapy. However, if discharged, the patient should be discharged on Medrol Dosepak and Breo inhaler 1 puff by mouth daily. We recommend the patient have full pulmonary function test as outpatient. Recommend the patient have sleep study as outpatient. The patient was seen and examined with Dr. Finch. Discussed assessment and plan as described above. The patient was seen and examined with Rolando Castelan, nurse practitioner. Discussed assessment and plan as described above. Thank you for this consult. We will follow with you. Rolando Castelan APN Flor Finch MD
[2018-11-21 14:42] VITALS: BP 120/69; PULSE 69; O2SAT 99
--- NOTE | 2018-11-21 16:44 | PN ---
DATE: 11/21/2018 SUBJECTIVE: This 63-year-old male has numerous admissions, came in with COPD exacerbation, alcoholism, nicotine dependent, hypertension, the patient did deny suicidal ideation, homicidal ideation, has a past medical history of hypertension, alcoholism, COPD, short of breath, anxiety, depression. I saw the patient today, he was sitting up in room. When I saw him on the bed, he was alert, oriented. Denies shortness of breath, palpitations. Reports intermittent cough with some phlegm. Denies hematuria, hematochezia, abdominal pain, fevers or chills. PHYSICAL EXAMINATION: GENERAL: The patient appears chronically ill. No acute distress. VITAL SIGNS: Temperature 97.5, pulse rate 71, blood pressure 135/84, respiratory rate 18, the patient is sating 100% today. No oxygen, but does use O2 at 2 L intermittently. HEENT: Normocephalic, atraumatic. PERRLA. Mucous membranes moist. RESPIRATORY: No wheeze, no rhonchi. CARDIOVASCULAR: S1, S2. No JVD. ABDOMEN: Soft, nontender, positive bowel sounds. No guarding. No organomegaly. SKIN: Intact. No cyanosis, no edema. NEUROLOGIC; The patient is alert and oriented x2 to 3. Some cognitive deficits. Cranial nerves II through XII intact. MEDICATIONS: Tylenol, DuoNeb, Eliquis, Brovana, Ecotrin, Lipitor, Pulmicort, Coreg, Plavix, vitamin B12, folic acid, Haldol, Imdur, Ativan, mag ox. The patient continues on Solu-Medrol, Singulair, Nicoderm patch, Protonix, Seroquel, sodium chloride, Flomax, B1. LABORATORY DATA: White blood cells 6, hemoglobin 12.4, hematocrit 36.7, platelet count 362. Sodium 130, potassium 5, BUN 29, creatinine 0.6. GFR over 60. ASSESSMENT AND PLAN: A 63-year-old male with history of chronic obstructive pulmonary disease, hypertension, hyperlipidemia, nicotine dependence, alcoholism dependent, depression, anxiety, urinary retention. The patient was seen by Dr. Boggs, Urology, for urinary retention, was placed on Flomax 0.4 mg. Temporary Morgan was placed. Morgan is out today. He is urinating on his own per nurses. We will continue to monitor I's and O's. The patient will continue Flomax, Brovana, Eliquis, Lipitor, Plavix, Coreg, Haldol for agitation. Sodium is 130. The patient continues on sodium chloride. No plan for discharge as of yet. ALL ABOVE NOTED , EDUCATION DONE , ALL LAB , MEDS AND CONSULTANTS NOTED AGREED WITH [employer]CHO[employer] HUMANITIES TEACHER NOTES , CONT. PRESENT TREATMENT , WILL F/U Terry Camargo APN La Calderon, [facility]
== END 2018-11-21 17:28 | disposition home health service (06) | DRG 191 ==
LOC: ED 03:46 → ERH 05:21 → 2RNO 06:14 → OBSVTOIN 11-13 15:53 → 5RNO 11-14 13:32
PROVIDERS: ADMIT Internal Medicine; ATTEND Internal Medicine
PROC: 0T9B70Z Drainage of Bladder with Drainage Device, Via Natural or Artificial Opening (ICD-10-PCS; principal; 2018-11-19)
DX: J44.1 Chronic obstructive pulmonary disease with (acute) exacerbation (principal); I48.92 Unspecified atrial flutter; F10.239 Alcohol dependence with withdrawal, unspecified; E87.1 Hypo-osmolality and hyponatremia; I25.3 Aneurysm of heart; I11.0 Hypertensive heart disease with heart failure; I50.9 Heart failure, unspecified; I25.10 Atherosclerotic heart disease of native coronary artery without angina pectoris; F41.0 Panic disorder [episodic paroxysmal anxiety]; F31.9 Bipolar disorder, unspecified; F43.10 Post-traumatic stress disorder, unspecified; I48.0 Paroxysmal atrial fibrillation; E11.65 Type 2 diabetes mellitus with hyperglycemia; F14.10 Cocaine abuse, uncomplicated; F17.210 Nicotine dependence, cigarettes, uncomplicated; K21.9 Gastro-esophageal reflux disease without esophagitis; D64.9 Anemia, unspecified; I27.20 Pulmonary hypertension, unspecified; F19.94 Other psychoactive substance use, unspecified with psychoactive substance-induced mood disorder; R33.9 Retention of urine, unspecified; F03.90 Unspecified dementia, unspecified severity, without behavioral disturbance, psychotic disturbance, mood disturbance, and anxiety; K29.70 Gastritis, unspecified, without bleeding; G40.909 Epilepsy, unspecified, not intractable, without status epilepticus; R94.5 Abnormal results of liver function studies; Z59.0 Homelessness; Z95.1 Presence of aortocoronary bypass graft; Z95.5 Presence of coronary angioplasty implant and graft; I25.2 Old myocardial infarction; Z86.73 Personal history of transient ischemic attack (TIA), and cerebral infarction without residual deficits; Z91.19 Patient's noncompliance with other medical treatment and regimen; E78.00 Pure hypercholesterolemia, unspecified; E78.5 Hyperlipidemia, unspecified; F12.10 Cannabis abuse, uncomplicated; Z88.2 Allergy status to sulfonamides

== ENCOUNTER 2018-11-24 11:57 | Emergency (ER) | payer MEDICARE, MEDICAID ==
[2018-11-24 11:58] VITALS: PULSE 146
[2018-11-24 12:00] VITALS: BMI 21.4
[2018-11-24 12:10] VITALS: RESP 18
[2018-11-24] MEDS ORDERED: Sodium Chloride 0.9% 500 ML IV STA (12:15)
--- NOTE | 2018-11-24 12:38 | RAD ---
Date of service: 11/24/2018 HISTORY: fatigue, jaundice COMPARISON: 11/12/2018 TECHNIQUE: 1 view obtained. FINDINGS: LUNGS: Evaluation limited by oblique positioning of the patient. No pulmonary infiltrate. PLEURA: No significant pleural effusion identified, no pneumothorax apparent. CARDIOVASCULAR: No aortic atherosclerotic calcification present. Normal heart size. Status post CABG. No pulmonary vascular congestion. OSSEOUS STRUCTURES: There is a healed fracture of the right 1st rib anteriorly. This gives the artifactual appearance of a pulmonary mass. This was seen on prior examination as well. VISUALIZED UPPER ABDOMEN: Normal. OTHER FINDINGS: None. IMPRESSION: No acute infiltrate.
[2018-11-24 12:49] LABS: EOS # 0.1 (0.0-0.7); EOS % 1.7 % (1.5-5.0); HEMOGLOBIN 10.4 g/dL (14.0-18.0); LYMPH # 1.4 (1.2-3.4); LYMPH % 19.7 % (22.0-35.0); MEAN CELL VOLUME 94.5 fl (80.0-105.0); MEAN CORPUSCULAR HEMOGLOBIN 31.5 pg (25.0-35.0); MEAN CORPUSCULAR HGB CONC 33.3 g/dl (31.0-37.0); MEAN PLATELET VOLUME 9.3 fl (7.0-11.0); MONO # 0.8 (0.1-0.6); MONO % 11.5 % (1.0-6.0); RBC 3.3 10^6/uL (3.5-6.1); RED CELL DISTRIBUTION WIDTH 18.4 % (11.5-14.5); WHITE BLOOD COUNT 7.2 10^3/uL (4.5-11.0)
[2018-11-24 13:00] LABS: INR 1.04; PARTIAL THROMBOPLASTIN TIME 25.6 Seconds (26.9-38.3); PROTHROMBIN TIME 11.7 SECONDS (9.4-12.5)
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
[2018-11-24 13:33] LABS: ALB/GLOB RATIO 1.6 (1.1-1.8); ALBUMIN 3.8 g/dL (3.0-4.8); ALT/SGPT 28 U/L (7-56); AST/SGOT 35 U/L (17-59); BLOOD UREA NITROGEN 29 mg/dL (7-21); CALCIUM 8.4 mg/dL (8.4-10.5); GFR NON-AFRICAN AMERICAN > 60
[2018-11-24 14:04] VITALS: BP 122/76; PULSE 88; TEMP 97.2; O2SAT 98
--- NOTE | 2018-11-24 15:09 | CARD ---
APPROVED REPORT Date of service: 11/24/2018 EKG Measurement Heart [id number] [id number] [id number] <Conclusion> Atrial flutter with variable AV block Junctional ST depression, probably normal Abnormal ECG
== END 2018-11-24 14:05 | disposition home or self-care (01) ==
LOC: ED 11:57
DX: E86.0 Dehydration (principal); R53.83 Other fatigue; F17.210 Nicotine dependence, cigarettes, uncomplicated; I10 Essential (primary) hypertension; I25.10 Atherosclerotic heart disease of native coronary artery without angina pectoris; Z86.73 Personal history of transient ischemic attack (TIA), and cerebral infarction without residual deficits; J44.9 Chronic obstructive pulmonary disease, unspecified
CPT/HCPCS: 71045; 80053; 82140; 83735; 84100; 85025; 85610; 85730; 93005; 99285; G0480; J7040

== ENCOUNTER 2018-12-10 22:23 | Inpatient (IN) | payer MEDICARE, MEDICAID ==
[2018-12-10 22:23] VITALS: PULSE 146; BMI 21.4
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
[2018-12-10] MEDS: Albuterol-Ipratrop 3 mg / 0.5 (3 ml) UD IH SCH ×2 (23:10→23:32)
[2018-12-10] MEDS ORDERED: Sodium Chloride 0.9% 1,000 ML IV SCH (23:15)
[2018-12-11 01:13] LABS: BASO # 0.03 K/mm3 (0.0-2.0); BASO % 0.7 % (0.0-3.0); EOS # 0.2 (0.0-0.7); EOS % 3.6 % (1.5-5.0); HEMOGLOBIN 10.7 g/dL (14.0-18.0); LYMPH # 1.5 (1.2-3.4); LYMPH % 32.7 % (22.0-35.0); MEAN CORPUSCULAR HEMOGLOBIN 31.7 pg (25.0-35.0); MEAN CORPUSCULAR HGB CONC 33.3 g/dl (31.0-37.0); MEAN PLATELET VOLUME 8.5 fl (7.0-11.0); MONO % 21.7 % (1.0-6.0); PLATELET COUNT 310 10^3/uL (120.0-450.0); RBC 3.38 10^6/uL (3.5-6.1); RED CELL DISTRIBUTION WIDTH 16.5 % (11.5-14.5); WHITE BLOOD COUNT 4.5 10^3/uL (4.5-11.0)
[2018-12-11] MEDS: Albuterol-Ipratrop 3 mg / 0.5 (3 ml) UD IH SCH ×5 (01:17→20:01)
[2018-12-11 01:18] LABS: INR 1.16; PARTIAL THROMBOPLASTIN TIME 34.8 Seconds (26.9-38.3); PROTHROMBIN TIME 12.9 SECONDS (9.4-12.5)
[2018-12-11 01:41] LABS: ALB/GLOB RATIO 1.3 (1.1-1.8); ALBUMIN 3.6 g/dL (3.0-4.8); ALT/SGPT 24 U/L (7-56); AST/SGOT 31 U/L (17-59); BLOOD UREA NITROGEN 13 mg/dL (7-21); CALCIUM 8.8 mg/dL (8.4-10.5); GFR NON-AFRICAN AMERICAN > 60
[2018-12-11 01:52] LABS: B-TYPE NATRIURETIC PEPTIDE 947 pg/mL (0-450); TROPONIN I 0.27 ng/mL
[2018-12-11] MEDS ORDERED: Nitroglycerin 2% Ointment Foilpak UD TOP STA (01:55)
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
[2018-12-11] MEDS ORDERED: Enoxaparin 80 mg Syringe SC SCH (02:45)
[2018-12-11 02:59] LABS: HDL CHOLESTEROL 39 mg/dL (29-60)
[2018-12-11 03:09] LABS: LDL CHOLESTEROL 103 mg/dL (0-129)
[2018-12-11 03:28] LABS: ANISOCYTOSIS SLIGHT; BAND 5 % (0-2); EOSINOPHIL 3 % (0.0-3.0); LYMPHOCYTE 30 % (22.0-35.0); MONOCYTE 19 % (1.0-6.0); NEUTROPHIL 43 % (50.0-70.0); PLATELET ESTIMATE NORMAL (NORMAL); POIKILOCYTOSIS SLIGHT
[2018-12-11] MEDS ORDERED: Albuterol HFA 90 mcg/actuation (8 g) IH PRN (03:33)
[2018-12-11] MEDS ORDERED: Albuterol 0.083% Inhal Sol (2.5 mg/3 mL) UD IH PRN (03:41)
[2018-12-11] MEDS ORDERED: Heparin25000 units/250ml 1/2NS 25,000 UNITS/250 ML BAG IV SCH (08:15)
[2018-12-11] MEDS: Arformoterol 15 mcg/2 ml Inh Sol IH SCH ×2 (08:17→20:01)
[2018-12-11] MEDS: Budesonide 0.5 mg/2 ml Inhal Susp UD IH SCH ×2 (08:19→20:01)
--- NOTE | 2018-12-11 08:25 | RAD ---
Date of service: 12/10/2018 HISTORY: sob COMPARISON: 11/24/2018 TECHNIQUE: 1 view obtained. FINDINGS: LUNGS: No active pulmonary disease. PLEURA: No significant pleural effusion identified, no pneumothorax apparent. CARDIOVASCULAR: No aortic atherosclerotic calcification present. Normal cardiac size. No pulmonary vascular congestion. OSSEOUS STRUCTURES: Sternal wires VISUALIZED UPPER ABDOMEN: Normal. OTHER FINDINGS: None. IMPRESSION: No active disease.
[2018-12-11 09:03] LABS: IRON 41 ug/dL (45-180)
[2018-12-11 09:13] LABS: % IRON SATURATION 16 % (20-55); TOTAL IRON BINDING CAPACITY 256 ug/dL (261-462)
--- NOTE | 2018-12-11 09:59 | CARD ---
APPROVED REPORT Date of service: 12/11/2018 EKG Measurement Heart [id number] <Conclusion> Atrial flutter with variable AV block ST-T Changes. Correlate Clinically.
--- NOTE | 2018-12-11 10:08 | CARD ---
APPROVED REPORT Date of service: 12/10/2018 EKG Measurement Heart [id number] <Conclusion> Atrial flutter with 4:1 AV conduction Abnormal ECG
[2018-12-11] MEDS ORDERED: Albuterol-Ipratrop 3 mg / 0.5 (3 ml) UD IH PRN (10:16)
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
[2018-12-11] MEDS ORDERED: Nitroglycerin 50mg in D5W 50 MG/250 ML BOTTLE IV ONE (15:19)
[2018-12-11] MEDS ORDERED: Lidocaine 2% Inj (20ml) ONE (15:19)
[2018-12-11] MEDS ORDERED: Iohexol 350mgl/ml 50 ML ONE (15:19)
[2018-12-11] MEDS ORDERED: Iodixanol 320 MG/ML 100 ML BOTTLE IV ONE (15:19)
[2018-12-11] MEDS ORDERED: Iodixanol 320 MG/ML 200 ML BOTTLE IV ONE (15:19)
[2018-12-11] MEDS ORDERED: DiphenhydrAMINE 50 mg/ml Inj ONE (15:27)
[2018-12-11] MEDS ORDERED: Famotidine 20mg/50ml 20 MG/50 ML BAG IVPB ONE (15:28)
--- NOTE | 2018-12-11 15:30 | CP.PCM.PN ---
<Sheldon Verma - Last Filed: 12/11/18 15:18> Subjective - Date & Time of Evaluation Date of Evaluation: 12/11/18 Time of Evaluation: 08:10 - Subjective Subjective: Sheldon Verma D.O. PGY-3, Internal Medicine Resident, Dr. Guillaume's Service, Progress Note 63-year-old male with a past medical history of hypertension, COPD, asthma, CAD status post stents, status post CABG, previous TIA, ethanol and tobacco abuse who presented for complaints of chest pain while watching TV at home. Patient was seen and examined at bedside. Patient has been refusing his Lovenox. States that he does not like being injected in the belly. Mostly complaining at this time that he is unable to eat. Denies any more chest pain. Objective - Vital Signs/Intake and Output Vital Signs (last 24 hours): Temp Pulse Resp BP Pulse Ox 98.1 F 73 18 113/76 99 12/11/18 12:00 12/11/18 12:00 12/11/18 12:00 12/11/18 12:00 12/11/18 02:05 Intake and Output: 12/11/18 12/11/18 06:59 18:59 Intake Total 640 Output Total 300 Balance 340 - Medications Medications: Current Medications Albuterol/Ipratropium (Duoneb 3 Mg/0.5 Mg (3 Ml) Ud) 3 ml IH [id number] [facility] Last Admin: 12/11/18 13:31 Dose: Not Given Albuterol/Ipratropium (Duoneb 3 Mg/0.5 Mg (3 Ml) Ud) 3 ml IH Q2H PRN PRN Reason: Shortness of Breath Arformoterol Tartrate (Brovana) 15 mcg IH [id number] [facility] Last Admin: 12/11/18 08:17 Dose: 15 mcg Aspirin (Ecotrin) 81 mg PO DAILY [facility] Last Admin: 12/11/18 10:23 Dose: 81 mg Atorvastatin Calcium (Lipitor) 80 mg PO DIN [facility] Budesonide (Pulmicort Respules) 0.5 mg IH [id number] [facility] Last Admin: 12/11/18 08:19 Dose: 0.5 mg Carvedilol (Coreg) 12.5 mg PO BID [facility] Clopidogrel Bisulfate (Plavix) 75 mg PO DAILY [facility] Last Admin: 12/11/18 10:23 Dose: 75 mg Cyanocobalamin (Vitamin B12 100 Mcg Tab) 100 mcg PO DAILY [facility] Last Admin: 12/11/18 10:23 Dose: 100 mcg Famotidine (Pepcid) 20 mg PO 2200 [facility] Ferrous Sulfate (Feosol) 324 mg PO BID [facility] Iodixanol (Visipaque 320 Mg/Ml 200 Ml) Confirm Administered Dose 200 ml IV .STK- MED ONE Stop: 12/11/18 15:20 Isosorbide Mononitrate (Imdur Er) 30 mg PO DAILY [facility] Last Admin: 12/11/18 10:23 Dose: 30 mg Montelukast Sodium (Singulair) 10 mg PO HS [facility] - Labs Labs: 12/11/18 00:50 12/11/18 00:50 PT 12.9 SECONDS (9.4-12.5) H 12/11/18 00:50 INR 1.16 12/11/18 00:50 APTT 34.8 Seconds (26.9-38.3) 12/11/18 00:50 - Constitutional Appears: Non-toxic, Chronically Ill - Head Exam Head Exam: ATRAUMATIC, NORMOCEPHALIC - Eye Exam Eye Exam: EOMI. absent: Scleral icterus - ENT Exam ENT Exam: Mucous Membranes Moist, Normal Oropharynx - Neck Exam Neck Exam: Normal Inspection - Respiratory Exam Respiratory Exam: Wheezes (mild bibasilar). absent: Rales, Rhonchi - Cardiovascular Exam Cardiovascular Exam: Irregular Rhythm, +S1, +S2. absent: Gallop, Rubs - GI/Abdominal Exam GI & Abdominal Exam: Soft, Normal Bowel Sounds. absent: Tenderness - Extremities Exam Extremities Exam: absent: Calf Tenderness, Joint Swelling, Pedal Edema, Tenderness - Neurological Exam Neurological Exam: Alert, Awake - Psychiatric Exam Psychiatric exam: Anxious - Skin Skin Exam: Dry, Warm Assessment and Plan - Assessment and Plan (Free Text) Assessment: 63-year-old male with a past medical history of hypertension, COPD, asthma, CAD status post stents, status post CABG, previous TIA, ethanol and tobacco abuse who presented for complaints of chest pain while watching TV at home. Plan: 1. NSTEMI 2. COPD and asthma 3. CAD status post stent status post CABG 4. Hypertension 5. EtOH abuse 6. Tobacco abuse 7. Hyperlipidemia 8. Normocytic anemia First troponin elevated at 0.27 now up to 9.66. Cardiology has evaluated. Patient for cardiac catheterization today. After discussion with patient as to why he is refusing lovenox he is amenable to being switched to heparin drip. Lovenox discontinued and heparin gtt order placed. Discussed with nursing staff. We will continue with the patient's aspirin as well as high-dose statin therapy with Lipitor 80 and Plavix. We will also continue his home imdur. For now for his COPD and asthma we will place him on scheduled and as needed nebuli zers as well as Brovana and Pulmicort as well as his home montelukast. We will resume the patient's carvedilol as patient's previous drug screens have never come back positive for cocaine and patient denies at this time so the index of suspicion is very low. Will order iron studies for his anemia. We will keep the patient n.p.o. at this time as the patient will be calling for cardiac cath. Physical therapy evaluation requested. At this time is hemodynamically stable. We will follow this patient closely at this time. Patient was seen and examined and case discussed with attending physician. <Silas Guillaume S - Last Filed: 12/11/18 16:06> Objective - Vital Signs/Intake and Output Vital Signs (last 24 hours): Temp Pulse Resp BP Pulse Ox 98.1 F 73 18 113/76 99 12/11/18 12:00 12/11/18 12:00 12/11/18 12:00 12/11/18 12:00 12/11/18 02:05 Intake and Output: 12/11/18 12/11/18 06:59 18:59 Intake Total 640 Output Total 300 Balance 340 - Medications Medications: Current Medications Albuterol/Ipratropium (Duoneb 3 Mg/0.5 Mg (3 Ml) Ud) 3 ml IH [id number] [facility] Last Admin: 12/11/18 13:31 Dose: Not Given Albuterol/Ipratropium (Duoneb 3 Mg/0.5 Mg (3 Ml) Ud) 3 ml IH Q2H PRN PRN Reason: Shortness of Breath Arformoterol Tartrate (Brovana) 15 mcg IH [id number] [facility] Last Admin: 12/11/18 08:17 Dose: 15 mcg Aspirin (Ecotrin) 81 mg PO DAILY [facility] Last Admin: 12/11/18 10:23 Dose: 81 mg Atorvastatin Calcium (Lipitor) 80 mg PO DIN [facility] Budesonide (Pulmicort Respules) 0.5 mg IH [id number] [facility] Last Admin: 12/11/18 08:19 Dose: 0.5 mg Carvedilol (Coreg) 12.5 mg PO BID [facility] Clopidogrel Bisulfate (Plavix) 75 mg PO DAILY [facility] Last Admin: 12/11/18 10:23 Dose: 75 mg Cyanocobalamin (Vitamin B12 100 Mcg Tab) 100 mcg PO DAILY [facility] Last Admin: 12/11/18 10:23 Dose: 100 mcg Ferrous Sulfate (Feosol) 324 mg PO BID [facility] Isosorbide Mononitrate (Imdur Er) 30 mg PO DAILY [facility] Last Admin: 12/11/18 10:23 Dose: 30 mg Montelukast Sodium (Singulair) 10 mg PO HS [facility] - Labs Labs: 12/11/18 00:50 12/11/18 00:50 PT 12.9 SECONDS (9.4-12.5) H 12/11/18 00:50 INR 1.16 12/11/18 00:50 APTT 34.8 Seconds (26.9-38.3) 12/11/18 00:50 Assessment and Plan - Assessment and Plan (Free Text) Plan: Patient was seen and examined by me. I have reviewed the note of the medical technician and have gone over the plan of care. I agree with the note. I have reviewed the medications and the last labs.
[2018-12-11] MEDS ORDERED: Midazolam 2 MG/2 ML VIAL ONE (15:50)
[2018-12-11] MEDS ORDERED: Eptifibatide 20 mg/10mL Inj IVP ONE (16:16)
[2018-12-11] MEDS ORDERED: Eptifibatide 0.75 mg/ml 75 MG/100 ML BAG IV ONE (16:44)
[2018-12-11] MEDS ORDERED: Sodium Chloride 0.9% 1,000 ML IV SCH (17:00)
[2018-12-11] MEDS: Eptifibatide 0.75 mg/ml 75 MG/100 ML BAG IV SCH ×2 (17:19→23:47)
--- NOTE | 2018-12-11 17:50 | CPOSTOP ---
DATE: 12/11/2018 PHYSICIAN: Flor Verdin MD CITY DESIGNER: Shikha Bennett [employer] SAL[employer] REPRESENTATIVE TYPE OF ANESTHESIA: Moderate conscious sedation, total 2 mg of Versed and 100 of fentanyl given. PRE-PROCEDURE DIAGNOSES: Unstable angina, non-ST segment myocardial infarction. PROCEDURE PERFORMED: Left heart catheterization, BALLARD injection, SVG injection and LV gram. FINDINGS: SVG to Ramus Intermedius is occluded, appears to be freshly occluded. FINAL DIAGNOSES: Multivessel coronary artery disease, occluded saphenous vein graft to Ramus Intermedius. POST PROCEDURE CONDITION: The patient's condition is stable. VASCULAR ACCESS SITE: Left femoral artery. CLOSURE DEVICE: Mynx. TOTAL RADIATION DOSE: 7571.2 milligray unit. CUMULATIVE DOSE: 937 milligray unit. TOTAL FLUORO TIME: 19.9 minutes. TOTAL CONTRAST USED: 130 mL of Visipaque. Flor Verdin MD MTDD
--- NOTE | 2018-12-11 18:42 | CARD ---
APPROVED REPORT Date of service: 12/11/2018 EKG Measurement Heart [id number] OH [id number] [id number] <Conclusion> Atrial flutter with 4:[address] and T wave abnormality Abnormal ECG
--- NOTE | 2018-12-11 19:17 | CARD ---
APPROVED REPORT Date of service: 12/11/2018 Procedure(s) performed: Left Heart Catheterization BALLARD Angiogram SVG Angiogram PTCA with Balloon Angioplastyof SVG to Ramus Intermedius. HISTORY The patient is a 63 year-old male with a history of : previous NC (> 7 days), renal failure without dialysis, peripheral vascular disease, chronic lung disease, previous diagnostic cath, tobacco history() : The patient is a current smoker , previous PCI (The PCI date was 04/04/2018), hypertension , previous CABG (The CABG date was 2006), dyslipidemia , cerebrovascular disease , Admitted with ACS/ NSTEMI with increasing troponin to 9.66 qnd then 10.0 troponin . INDICATION The indication(s) include : unstable angina , non-STEMI . CASE TECHNIQUE The patient was brought emergently to the Cardiac Catheterization Laboratory in a fasting state and was prepped and draped in a sterile manner. The left femoral groin was infiltrated with 2% Lidocaine subcutaneous anesthesia. A 6 Fr x 11 cm Diane sheath was inserted into the left femoral artery without difficulty. Coronary angiography was performed using coronary diagnostic catheters. The left coronary system was accessed and visualized with a Diagnostic ,6F JL4 CATH DXT 100 CM catheter. The right coronary system was accessed and visualized with a Diagnostic ,6F JR 4 CATH DXT 100 CM catheter. The left ventricle was accessed and visualized with a 6F PIGTAIL 145 CATH DXT 110 CM catheter. The left internal mammary artery was accessed and visualized with a Diagnostic , catheter. The saphenous vein graft was accessed and visualized with a 6F JR 4 CATH DXT 100 CMDiagnostic catheter. The saphenous vein graft was accessed and visualized with a Diagnostic ,6F JR 4 CATH DXT 100 CM catheter. The saphenous vein graft was accessed and visualized with a Diagnostic ,6F JR 4 CATH DXT 100 CM catheter. Left ventricular/Aortic Valve gradient assessed on pullback. Left ventriculogram was performed in [place]ER[place] projection. Closure device was deployed with a 6 Fr / 7 Fr MynxGrip without any complications. The patient tolerated the procedure well and there were no complications associated with the procedure. Vessel Analysis The patient's coronary anatomy is right dominant. The left main coronary artery is a medium size vessel with diffuse calcification noted throughout this vessel and without significant stenosis. The left main bifurcates to the left anterior descending and circumflex. The left anterior descending artery is a medium size vessel with diffuse calcification noted throughout this vessel and with significant stenosis. There is a 100% stenosis in the mid segment. The first diagonal branch is a medium size vessel . The circumflex artery is a medium size vessel with diffuse calcification noted throughout this vessel and without significant stenosis. The first obtuse marginal branch is a medium size vessel with diffuse calcification noted throughout this vessel and with significant stenosis. There is a 100% stenosis in the proximal segment. The ramus intermedius artery is a medium size vessel with diffuse calcification noted throughout this vessel and with significant stenosis. There is a 100% stenosis in the ostial segment. The right coronary artery is a large size vessel with diffuse calcification noted throughout this vessel and with significant stenosis. There is a 100% stenosis in the mid segment. The left internal mammary artery to the mid left anterior descending artery segment is patent . The saphenous vein graft to the distal right coronary artery is patent . The saphenous vein graft to the first obtuse marginal branch segment is patent . The saphenous vein graft to the ramus intermedius segment Occluded . Left Ventricle The left ventricle is normal in size with normal contractility. There was no cardiomyopathy. The left ventricular ejection fraction is estimated to be 55-60%. The left ventricular end diastolic pressure is 12-14 mmHg. There was no gradient across the aortic valve upon pullback. PCI Technique Lesion Anticoagulation was achieved with Heparin and Integrellin bolluses. Percutaneous coronary intervention was performed on the SVG to Ramus intermedius. The lesion stenosis prior to intervention was 100% with CLAUDE 0 flow. A 6 Fr LCB Guide Catheter was used to engage the ostium. A Luge 182 Interventional Guidewire was used to cross the lesion. BALLOON DILATION A Balloon catheter 2.0 x 12 mm Sprinter RX was inserted and inflated up to 12atm for 20seconds. STENT DEPLOYMENT Multiple inflatation done 20-30 seconds at 12-14 mery Final angiography reveals 40 % stenosis with CLAUDE 2 flow. PCI Technique Lesion 2 Percutaneous Coronary Intervention was performed on the Unspecified. Conclusion [place] triple vessel CAD Patent LIIMA to LAD Patent SVG to RCA Patent SVG to OM1 Occluded SVG to Ramus intermedius. preserved LV Fx. [id number], Edp-12-14. Successful POBA of SVG to Ramus intermedius with CLAUDE II to III Flow and reduction of stenosis 100% to 30% Recommendations Smoking Cessation Cardiac Rehabilitation ReferralDaily ASA with Plavix for at least one year Aggressive Medical Therapy Weight Loss Reduction Program Continue Integrellin for 18-24 hours. compliance with Meds complete abstinence f ETIoH abuse. Cc; dr. su.
--- NOTE | 2018-12-11 19:45 | PN ---
DATE: 12/11/2018 SUBJECTIVE: The patient was seen and examined. I do agree with the note of the medical physiologist. I have also reviewed the initial resident history and physical and I do agree with this. The patient came into the hospital with chest pain and was having non-ST elevation CO. The patient has a history of alcoholism. He has had multiple admissions as well as workup in the past. He does have a history of having agitation and gets loud and difficult to manage. The patient is going to be on aspirin. He is going to need followup with Dr. Verdin, I will have Cardiology to see the patient. The patient is on Pulmicort and Brovana for his COPD. He continues to be an active smoker and is advised to quit. The patient has anemia and now will get iron studies. He is going to be n.p.o. for a cath tomorrow. He does not wish to be on Lovenox and I will change it to . He is on anticoagulation to heparin. The patient has hypertension. We will continue on for his blood pressure. Apparently, the patient lives at the [facility]. Silas Guillaume MD
[2018-12-12 00:28] LABS: BARBITURATES, UR NEGATIVE (NEGATIVE); BENZODIAZEPINES, UR POSITIVE (NEGATIVE); OPIATES, UR NEGATIVE (NEGATIVE); PHENCYCLIDINE, UR NEGATIVE (NEGATIVE)
--- NOTE | 2018-12-12 08:03 | CP.PCM.PN ---
Subjective - Date & Time of Evaluation Date of Evaluation: 12/12/18 Time of Evaluation: 06:45 - Subjective Subjective: Awake, alert, denies chest pain, wanted to go home Reason for consultation and follow up: Cardiac evaluation of chest pain, non STEMI, post cardiac catheterization/PTCA, history of coronary artery disease, post CABG and stents Seen and examined by me and Dr. Verdin Objective - Vital Signs/Intake and Output Vital Signs (last 24 hours): Temp Pulse Resp BP Pulse Ox 98.2 F 72 20 131/71 94 L 12/12/18 06:00 12/12/18 06:00 12/12/18 06:00 12/12/18 06:00 12/11/18 19:15 Intake and Output: 12/12/18 12/12/18 06:59 18:59 Intake Total 240 Output Total 250 Balance -10 - Medications Medications: Current Medications Albuterol/Ipratropium (Duoneb 3 Mg/0.5 Mg (3 Ml) Ud) 3 ml IH [id number] [facility] Last Admin: 12/11/18 20:01 Dose: Not Given Albuterol/Ipratropium (Duoneb 3 Mg/0.5 Mg (3 Ml) Ud) 3 ml IH Q2H PRN PRN Reason: Shortness of Breath Arformoterol Tartrate (Brovana) 15 mcg IH [id number] [facility] Last Admin: 12/11/18 20:01 Dose: Not Given Aspirin (Ecotrin) 81 mg PO DAILY [facility] Last Admin: 12/11/18 10:23 Dose: 81 mg Atorvastatin Calcium (Lipitor) 80 mg PO DIN [facility] Last Admin: 12/11/18 17:34 Dose: 80 mg Budesonide (Pulmicort Respules) 0.5 mg IH [id number] [facility] Last Admin: 12/11/18 20:01 Dose: Not Given Carvedilol (Coreg) 12.5 mg PO BID [facility] Last Admin: 12/11/18 17:34 Dose: 12.5 mg Clopidogrel Bisulfate (Plavix) 75 mg PO DAILY [facility] Last Admin: 12/11/18 10:23 Dose: 75 mg Cyanocobalamin (Vitamin B12 100 Mcg Tab) 100 mcg PO DAILY [facility] Last Admin: 12/11/18 10:23 Dose: 100 mcg Ferrous Sulfate (Feosol) 324 mg PO BID [facility] Last Admin: 12/11/18 17:34 Dose: 324 mg Eptifibatide (Integrilin) 75 mg in 100 mls @ 10.523 mls/hr IV [id number] [facility]; Protocol Stop: 12/12/18 17:00 Last Admin: 12/11/18 23:47 Dose: 10.523 mls/hr Isosorbide Mononitrate (Imdur Er) 30 mg PO DAILY [facility] Last Admin: 12/11/18 10:23 Dose: 30 mg Montelukast Sodium (Singulair) 10 mg PO HS [facility] Last Admin: 12/11/18 21:59 Dose: Not Given - Labs Labs: 12/11/18 00:50 12/11/18 00:50 PT 12.9 SECONDS (9.4-12.5) H 12/11/18 00:50 INR 1.16 12/11/18 00:50 APTT 34.8 Seconds (26.9-38.3) 12/11/18 00:50 - Constitutional Appears: Non-toxic, No Acute Distress - Head Exam Head Exam: NORMAL INSPECTION, NORMOCEPHALIC - Eye Exam Eye Exam: Normal appearance Pupil Exam: NORMAL ACCOMODATION - ENT Exam ENT Exam: Mucous Membranes Moist, Normal Exam - Respiratory Exam Respiratory Exam: Decreased Breath Sounds, NORMAL BREATHING PATTERN - Cardiovascular Exam Cardiovascular Exam: Irregular Rhythm, +S1, +S2 Additional comments: Telemetry atrial fib/atrial flutter - GI/Abdominal Exam GI & Abdominal Exam: Soft, Normal Bowel Sounds - Extremities Exam Extremities Exam: Full ROM, Normal Capillary Refill Additional comments: left groin no bleeding no hematoma, good pedal pulses - Neurological Exam Neurological Exam: Alert, Awake, Oriented x3 - Psychiatric Exam Psychiatric exam: Normal Affect, Normal Mood - Skin Skin Exam: Dry, Normal Color, Warm Assessment and Plan - Assessment and Plan (Free Text) Assessment: A 63 year old male who came in to the ER due chest pain. Mid sternal chest pain radiating arms while watching TV associated with shortness of breath. Multiple admission to [facility] for chest pain and exacerbation of COPD. History of anemia,dizziness, arthritis, GERD, diverticulitis, history of atrial fibrillation and atrial flutter was on Eliquis but converted to normal sinus rhythm and discontinued, cholelithiasis, dyspepsia, suicidal ideation/attempt,bipolar disorder, panic attack disorder, anxiety, seizures, renal stones,urinary retention, diabetes, hypertension, COPD, TIA, coronary artery disease with stents, post CABG (2006) alcohol abuse, and tobacco abuse (2 PPD x 30 years) history of illicit drug use, denies recent use of illicit drugs. Cardiac cath done on 04/04/18 showed [place] triple vessel disease, patent BALLARD to LAD, patent SVG to ramus but at anastomosis site 95 %stenosis, patent SVG to OM1, patent SVG to RCA, LVEF 55%, successful PTCA with APURVA of SVG to ramus intermedius. 04/04/18 echo showed normal LVEF, mild pulmonary hypertension. Ini tial troponin 0.27 and repeat showed 9.66 and 10.9. Non-STEMI. EKG showed Aflutter 4:1 conduction. Chest X ray unremarkable. Had cardiac cath yesterday and showed [place] triple vessel coronary artery disease, patent BALLARD to LAD, patent SVG to RCA, patent SVG to OM1, occluded SVG to ramus intermedius preserved LVEF 55-60%, successful POBA of SVG to ramus intermedius with CLAUDE II to III flow and reduction of stenosis from 100% to 30%. Stable. Denies chest pain. Will restart Eliquis for re-occurence of atrial fibrillation/aflutter. Patient will be on Plavix and Eliquis and off Aspirin. May discharge patient from cardiac standpoint. Plan: Post cardiac cath yesterday Denies chest pain Heart rate controlled, aflutter/afib Will restart Eliquis 5 mg BID Will discontinue Aspirin Continue Plavix at least for a year Blood pressure stable Cardiac status stable On Lipitor 80 mg daily,Coreg 12.5 mg BID Plavix 75 mg daily, Imdur 30 mg daily, Eliquis 5 mg BID Continue current treatment Continue current medications May discharge from cardiac standpoint Will follow up in office 2-3 weeks Plan and treatment discussed with Dr. Verdin
[2018-12-12] MEDS: Eptifibatide 0.75 mg/ml 75 MG/100 ML BAG IV SCH ×2 (08:15→09:49)
[2018-12-12] MEDS: Albuterol-Ipratrop 3 mg / 0.5 (3 ml) UD IH SCH ×2 (08:16→14:06)
[2018-12-12] MEDS: Arformoterol 15 mcg/2 ml Inh Sol IH SCH (08:16)
[2018-12-12] MEDS: Budesonide 0.5 mg/2 ml Inhal Susp UD IH SCH (08:17)
[2018-12-12 08:31] VITALS: O2SAT 95
--- NOTE | 2018-12-12 12:04 | CP.PCM.DIS ---
<Sheldon Verma - Last Filed: 12/12/18 19:32> Provider - Provider Date of Admission: 12/11/18 02:22 Attending physician: Silas Guillaume MD Consults: 12/11/18 02:32 Physician Consult Stat Comment: Consulting Provider: Flor Verdin Consulting Physician: Flor Verdin Reason for Consult: chest pain 12/11/18 04:18 Social Work Referral Routine Comment: baylock score 14 Physician Instructions: Reason For Exam: Protocol Time Spent in preparation of Discharge (in minutes): 50 Diagnosis - Discharge Diagnosis (1) Myocardial infarction Status: Acute Hospital Course - Lab Results Lab Results: Most Recent Lab Values WBC 4.5 10^3/uL (4.5-11.0) D 12/11/18 00:50 RBC 3.38 10^6/uL (3.5-6.1) L 12/11/18 00:50 Hgb 10.7 g/dL (14.0-18.0) L 12/11/18 00:50 Hct 32.1 % (42.0-52.0) L 12/11/18 00:50 MCV 95.0 fl (80.0-105.0) 12/11/18 00:50 MCH 31.7 pg (25.0-35.0) 12/11/18 00:50 MCHC 33.3 g/dl (31.0-37.0) 12/11/18 00:50 RDW 16.5 % (11.5-14.5) H 12/11/18 00:50 Plt Count 310 10^3/uL (120.0-450.0) 12/11/18 00:50 MPV 8.5 fl (7.0-11.0) 12/11/18 00:50 Neut % (Auto) 41.3 % (50.0-68.0) L 12/11/18 00:50 Lymph % (Auto) 32.7 % (22.0-35.0) 12/11/18 00:50 [place] % (Auto) 21.7 % (1.0-6.0) H 12/11/18 00:50 Eos % (Auto) 3.6 % (1.5-5.0) 12/11/18 00:50 Baso % (Auto) 0.7 % (0.0-3.0) 12/11/18 00:50 Lymph # (Auto) 1.5 (1.2-3.4) 12/11/18 00:50 [place] # (Auto) 1.0 (0.1-0.6) H 12/11/18 00:50 Eos # (Auto) 0.2 (0.0-0.7) 12/11/18 00:50 Baso # (Auto) 0.03 K/mm3 (0.0-2.0) 12/11/18 00:50 Absolute Neuts (auto) 1.85 (1.4-6.5) 12/11/18 00:50 Neutrophils % (Manual) 43 % (50.0-70.0) L 12/11/18 00:50 Band Neutrophils % 5 % (0-2) H 12/11/18 00:50 Lymphocytes % (Manual) 30 % (22.0-35.0) 12/11/18 00:50 Monocytes % (Manual) 19 % (1.0-6.0) H 12/11/18 00:50 Eosinophils % (Manual) 3 % (0.0-3.0) 12/11/18 00:50 Platelet Evaluation Normal (NORMAL) 12/11/18 00:50 Poikilocytosis (manual Slight 12/11/18 00:50 Anisocytosis (manual) Slight 12/11/18 00:50 PT 12.9 SECONDS (9.4-12.5) H 12/11/18 00:50 INR 1.16 12/11/18 00:50 APTT 34.8 Seconds (26.9-38.3) 12/11/18 00:50 Sodium 130 mmol/L (132-148) L 12/11/18 00:50 Potassium 4.5 mmol/L (3.6-5.0) 12/11/18 00:50 Chloride 96 mmol/L (98-107) L 12/11/18 00:50 Carbon Dioxide 27 mmol/L (21-33) 12/11/18 00:50 Anion Gap 12 (10-20) 12/11/18 00:50 BUN 13 mg/dL (7-21) 12/11/18 00:50 Creatinine 0.7 mg/dl (0.8-1.5) L 12/11/18 00:50 Est GFR ( Amer) > 60 05 00:50 Est GFR (Non-Af Amer) > 60 12/11/18 00:50 Random Glucose 90 mg/dL (70-110) 12/11/18 00:50 Hemoglobin A1c 5.6 % (4.2-6.5) 12/11/18 00:50 Calcium 8.8 mg/dL (8.4-10.5) 12/11/18 00:50 Magnesium 1.8 mg/dL (1.7-2.2) 12/11/18 00:50 Iron 41 ug/dL (45-180) L 12/11/18 08:15 TIBC 256 ug/dL (261-462) L 12/11/18 08:15 % Saturation 16 % (20-55) L 12/11/18 08:15 Ferritin 71.9 ng/mL 12/11/18 08:15 Total Bilirubin 0.5 mg/dL (0.2-1.3) 12/11/18 00:50 AST 31 U/L (17-59) 12/11/18 00:50 ALT 24 U/L (7-56) 12/11/18 00:50 Alkaline Phosphatase 67 U/L (38-126) 12/11/18 00:50 Lactate Dehydrogenase 405 U/L (333-699) 12/11/18 00:50 Total Creatine Kinase 47 U/L (35-230) 12/11/18 00:50 Troponin I 10.90 ng/mL H* 12/11/18 14:22 NT-Pro-B Natriuret Pep 947 pg/mL (0-450) H 12/11/18 00:50 Total Protein 6.3 g/dL (5.8-8.3) 12/11/18 00:50 Albumin 3.6 g/dL (3.0-4.8) 12/11/18 00:50 Globulin 2.8 gm/dL 12/11/18 00:50 Albumin/Globulin Ratio 1.3 (1.1-1.8) 12/11/18 00:50 Triglycerides 62 mg/dL (35-160) 12/11/18 00:50 Cholesterol 163 mg/dL (130-200) 12/11/18 00:50 LDL Cholesterol Direct 103 mg/dL (0-129) 12/11/18 00:50 HDL Cholesterol 39 mg/dL (29-60) 12/11/18 00:50 Urine Opiates Screen Negative (NEGATIVE) 12/11/18 23:30 Urine Methadone Screen Negative (NEGATIVE) 12/11/18 23:30 Ur Barbiturates Screen Negative (NEGATIVE) 12/11/18 23:30 Ur Phencyclidine Scrn Negative (NEGATIVE) 12/11/18 23:30 Ur Amphetamines Screen Negative (NEGATIVE) 12/11/18 23:30 U Benzodiazepines Scrn Positive (NEGATIVE) H 12/11/18 23:30 U Oth Cocaine Metabols Negative (NEGATIVE) 12/11/18 23:30 U Cannabinoids Screen Negative (NEGATIVE) 12/11/18 23:30 - Hospital Course Hospital Course: Sheldon Verma D.O. PGY-3, Internal Medicine Resident, Dr. Guillaume's Service, Discharge Summary 63-year-old male with a past medical history of hypertension, COPD, asthma, CAD status post stents, status post CABG, previous TIA, ethanol and tobacco abuse who presented for complaints of chest pain while watching TV at home. Patient had a chest x-ray in the ER which showed no active disease. Patient had a first troponin which was elevated. First troponin was 0.27. Subsequent troponin elevated to 9.66 from 10.9. EKG only showed old a flutter rhythm with variable AV block. Patient was evaluated by cardiology. Originally patient was started on Lovenox which she was refusing so patient was switched to heparin drip. Once he was evaluated by cardiology patient was scheduled for cardiac catheterization. Patient underwent catheterization with POBA of saphenous vein graft stenosis going to the ramus intermedius. Patient was able to have successful dilatation from 100% stenosis to 40% stenosis by cardiology. Patient tolerated the procedure well and was on Integrilin drip. Patient was evaluated this morning and was doing well. Much better spirits. Very positive. Patient states that he had no complaints whatsoever. Patient was eager to go home. All questions were welcomed and answered to the patient's satisfaction. Patient was scheduled to continue on Integrilin drip for 24 hours however he ripped out his IV. Nursing discussed with cardiology who stated that he had received sufficient therapy that if he was refusing at that he would be able to go home. Patient did have blood pressure drops into the 80s systolic and was reevaluated physically by me and was his normal self enjoying lunch and had absolutely no complaints of lightheadedness or otherwise. Patient's new medications were sent downstairs to the [facility] pharmacy. Advised tobacco cessation and alcohol abstinence. Clear instructions were given to the patient to follow-up with his primary medical doctor upon discharge within 1 week. Follow-up with cardiology as indicated. - Date & Time of H&P Date of H&P: 12/12/18 Time of H&P: 13:00 Discharge Exam - Head Exam Head Exam: NORMAL INSPECTION, NORMOCEPHALIC - Eye Exam Eye Exam: EOMI. absent: Scleral icterus - ENT Exam ENT Exam: Mucous Membranes Moist, Normal Oropharynx - Neck Exam Neck exam: Normal Inspection - Respiratory Exam Respiratory Exam: Clear to PA & Lateral - Cardiovascular Exam Cardiovascular Exam: +S1, +S2 - GI/Abdominal Exam GI & Abdominal Exam: Soft. absent: Tenderness - Extremities Exam Extremities exam: normal capillary refill - Neurological Exam Neurological exam: Alert - Skin Skin Exam: Dry, Warm Discharge Plan - Discharge Medications Prescriptions: Apixaban [Eliquis] 5 mg PO BID #60 tab Atorvastatin [Lipitor] 80 mg PO DIN #30 tab Ferrous Sulfate [Feosol] 324 mg PO BID #60 ect - Follow Up Plan Condition: GOOD Disposition: HOME/ ROUTINE Instructions: Chest Pain (DC), Chest Pain (GEN) Additional Instructions: 1. Follow up with PMD within 1 week. 2. Follow up with cardiology as indicated. 3. Stop taking baby aspirin, now take plavix with eliquis. 4. Refer to medication reconciliation. 5. Added new medication: iron and high dose atorvastatin. 6. Return to ER for any worsening symptoms or concerns. <Silas Guillaume - Last Filed: 12/12/18 19:42> Provider - Provider Date of Admission: 12/11/18 02:22 Attending physician: Silas Guillaume MD Consults: 12/11/18 02:32 Physician Consult Stat Comment: Consulting Provider: Flor Verdin Consulting Physician: Flor Verdin Reason for Consult: chest pain 12/11/18 04:18 Social Work Referral Routine Comment: baylock score 14 Physician Instructions: Reason For Exam: Protocol Hospital Course - Lab Results Lab Results: Most Recent Lab Values WBC 4.5 10^3/uL (4.5-11.0) D 12/11/18 00:50 RBC 3.38 10^6/uL (3.5-6.1) L 12/11/18 00:50 Hgb 10.7 g/dL (14.0-18.0) L 12/11/18 00:50 Hct 32.1 % (42.0-52.0) L 12/11/18 00:50 MCV 95.0 fl (80.0-105.0) 12/11/18 00:50 MCH 31.7 pg (25.0-35.0) 12/11/18 00:50 MCHC 33.3 g/dl (31.0-37.0) 12/11/18 00:50 RDW 16.5 % (11.5-14.5) H 12/11/18 00:50 Plt Count 310 10^3/uL (120.0-450.0) 12/11/18 00:50 MPV 8.5 fl (7.0-11.0) 12/11/18 00:50 Neut % (Auto) 41.3 % (50.0-68.0) L 12/11/18 00:50 Lymph % (Auto) 32.7 % (22.0-35.0) 12/11/18 00:50 [place] % (Auto) 21.7 % (1.0-6.0) H 12/11/18 00:50 Eos % (Auto) 3.6 % (1.5-5.0) 12/11/18 00:50 Baso % (Auto) 0.7 % (0.0-3.0) 12/11/18 00:50 Lymph # (Auto) 1.5 (1.2-3.4) 12/11/18 00:50 [place] # (Auto) 1.0 (0.1-0.6) H 12/11/18 00:50 Eos # (Auto) 0.2 (0.0-0.7) 12/11/18 00:50 Baso # (Auto) 0.03 K/mm3 (0.0-2.0) 12/11/18 00:50 Absolute Neuts (auto) 1.85 (1.4-6.5) 12/11/18 00:50 Neutrophils % (Manual) 43 % (50.0-70.0) L 12/11/18 00:50 Band Neutrophils % 5 % (0-2) H 12/11/18 00:50 Lymphocytes % (Manual) 30 % (22.0-35.0) 12/11/18 00:50 Monocytes % (Manual) 19 % (1.0-6.0) H 12/11/18 00:50 Eosinophils % (Manual) 3 % (0.0-3.0) 12/11/18 00:50 Platelet Evaluation Normal (NORMAL) 12/11/18 00:50 Poikilocytosis (manual Slight 12/11/18 00:50 Anisocytosis (manual) Slight 12/11/18 00:50 PT 12.9 SECONDS (9.4-12.5) H 12/11/18 00:50 INR 1.16 12/11/18 00:50 APTT 34.8 Seconds (26.9-38.3) 12/11/18 00:50 Sodium 130 mmol/L (132-148) L 12/11/18 00:50 Potassium 4.5 mmol/L (3.6-5.0) 12/11/18 00:50 Chloride 96 mmol/L (98-107) L 12/11/18 00:50 Carbon Dioxide 27 mmol/L (21-33) 12/11/18 00:50 Anion Gap 12 (10-20) 12/11/18 00:50 BUN 13 mg/dL (7-21) 12/11/18 00:50 Creatinine 0.7 mg/dl (0.8-1.5) L 12/11/18 00:50 Est GFR ( Amer) > 60 05 00:50 Est GFR (Non-Af Amer) > 60 12/11/18 00:50 Random Glucose 90 mg/dL (70-110) 12/11/18 00:50 Hemoglobin A1c 5.6 % (4.2-6.5) 12/11/18 00:50 Calcium 8.8 mg/dL (8.4-10.5) 12/11/18 00:50 Magnesium 1.8 mg/dL (1.7-2.2) 12/11/18 00:50 Iron 41 ug/dL (45-180) L 12/11/18 08:15 TIBC 256 ug/dL (261-462) L 12/11/18 08:15 % Saturation 16 % (20-55) L 12/11/18 08:15 Ferritin 71.9 ng/mL 12/11/18 08:15 Total Bilirubin 0.5 mg/dL (0.2-1.3) 12/11/18 00:50 AST 31 U/L (17-59) 12/11/18 00:50 ALT 24 U/L (7-56) 12/11/18 00:50 Alkaline Phosphatase 67 U/L (38-126) 12/11/18 00:50 Lactate Dehydrogenase 405 U/L (333-699) 12/11/18 00:50 Total Creatine Kinase 47 U/L (35-230) 12/11/18 00:50 Troponin I 10.90 ng/mL H* 12/11/18 14:22 NT-Pro-B Natriuret Pep 947 pg/mL (0-450) H 12/11/18 00:50 Total Protein 6.3 g/dL (5.8-8.3) 12/11/18 00:50 Albumin 3.6 g/dL (3.0-4.8) 12/11/18 00:50 Globulin 2.8 gm/dL 12/11/18 00:50 Albumin/Globulin Ratio 1.3 (1.1-1.8) 12/11/18 00:50 Triglycerides 62 mg/dL (35-160) 12/11/18 00:50 Cholesterol 163 mg/dL (130-200) 12/11/18 00:50 LDL Cholesterol Direct 103 mg/dL (0-129) 12/11/18 00:50 HDL Cholesterol 39 mg/dL (29-60) 12/11/18 00:50 Urine Opiates Screen Negative (NEGATIVE) 12/11/18 23:30 Urine Methadone Screen Negative (NEGATIVE) 12/11/18 23:30 Ur Barbiturates Screen Negative (NEGATIVE) 12/11/18 23:30 Ur Phencyclidine Scrn Negative (NEGATIVE) 12/11/18 23:30 Ur Amphetamines Screen Negative (NEGATIVE) 12/11/18 23:30 U Benzodiazepines Scrn Positive (NEGATIVE) H 12/11/18 23:30 U Oth Cocaine Metabols Negative (NEGATIVE) 12/11/18 23:30 U Cannabinoids Screen Negative (NEGATIVE) 12/11/18 23:30 - Hospital Course Hospital Course: Pt seen and examined by me. I have reviewed the note of the medical oncology physician and I agree with it. I have discussed the assessment and plan with the resident. I have reviewed the medications and the last labs.
[2018-12-12] MEDS ORDERED: Sodium Chloride 0.9% 500 ML IV SCH (13:15)
[2018-12-12 13:24] VITALS: BP 81/54; PULSE 65; RESP 20; TEMP 98.2
--- NOTE | 2018-12-13 01:12 | DS ---
HOSPITAL COURSE: The patient was seen and examined. I do agree with the note of the medical physics researcher. I was involved in the plan of care. The patient had come in to the hospital for chest pain. He was found to have a non-ST elevation myocardial infarction. The patient was taken to the laboratory apparatus glass blower by Dr. Verdin. The patient does feel better. He does have a history of noncompliance. He continues to smoke. He has been advised multiple times not to smoke. He does not followup with his primary doctor. He also does not follow with Dr. Verdin. He said that he spoke with the patient multiple times to stress to him the importance of followup, but still has not been able to do so. The patient does understand the importance of smoking cessation. He has a history of COPD, hypertension, and dyslipidemia. Patient had intervention done by Dr. Verdin. He feels well after the procedure. He is going to be discharged home today. He is going to follow up with Dr. Verdin and his primary care doctor. He is going to continue with Eliquis and he is going to be on Plavix. His aspirin is going to be withheld. Patient was informed regarding this. Dr. Verdin is the one who suggested that patient stay on Plavix and Eliquis. He is adamant about leaving today as well. Silas Guillaume MD [facility] # [id number]
== END 2018-12-12 16:08 | disposition home or self-care (01) | DRG 251 ==
LOC: ED 22:23 → ERH 12-11 02:22 → 2RNO 12-11 03:22 → 2RSO 12-11 17:02
PROVIDERS: ADMIT Internal Medicine Nephrology; ATTEND Internal Medicine Nephrology
PROC: 02703ZZ Dilation of Coronary Artery, One Artery, Percutaneous Approach (ICD-10-PCS; principal; 2018-12-11)
PROC: 4A023N7 Measurement of Cardiac Sampling and Pressure, Left Heart, Percutaneous Approach (ICD-10-PCS; 2018-12-11)
PROC: B2151ZZ Fluoroscopy of Left Heart using Low Osmolar Contrast (ICD-10-PCS; 2018-12-11)
PROC: B2111ZZ Fluoroscopy of Multiple Coronary Arteries using Low Osmolar Contrast (ICD-10-PCS; 2018-12-11)
PROC: 3E033PZ Introduction of Platelet Inhibitor into Peripheral Vein, Percutaneous Approach (ICD-10-PCS; 2018-12-11)
DX: I21.4 Non-ST elevation (NSTEMI) myocardial infarction (principal); T82.857A Stenosis of other cardiac prosthetic devices, implants and grafts, initial encounter; I48.92 Unspecified atrial flutter; I25.110 Atherosclerotic heart disease of native coronary artery with unstable angina pectoris; D64.9 Anemia, unspecified; E78.5 Hyperlipidemia, unspecified; I27.20 Pulmonary hypertension, unspecified; I48.91 Unspecified atrial fibrillation; I10 Essential (primary) hypertension; K21.9 Gastro-esophageal reflux disease without esophagitis; E11.51 Type 2 diabetes mellitus with diabetic peripheral angiopathy without gangrene; F10.20 Alcohol dependence, uncomplicated; F17.200 Nicotine dependence, unspecified, uncomplicated; F31.9 Bipolar disorder, unspecified; J44.9 Chronic obstructive pulmonary disease, unspecified; F41.0 Panic disorder [episodic paroxysmal anxiety]; F43.10 Post-traumatic stress disorder, unspecified; Y83.2 Surgical operation with anastomosis, bypass or graft as the cause of abnormal reaction of the patient, or of later complication, without mention of misadventure at the time of the procedure; Z79.01 Long term (current) use of anticoagulants; Z86.73 Personal history of transient ischemic attack (TIA), and cerebral infarction without residual deficits; Z95.5 Presence of coronary angioplasty implant and graft; Z91.19 Patient's noncompliance with other medical treatment and regimen; Z88.2 Allergy status to sulfonamides